=== PATIENT | female | born 1955 | race Caucasian/White ===

== ENCOUNTER 2020-03-08 10:51 | Outpatient (REF) | payer MEDICARE, SELFPAY | END 2020-03-08 10:52 | disposition home or self-care (01) | LOC: HO.LAB 10:51 | PROVIDERS: PCP Internal Medicine; Visit Provider Internal Medicine | DX: Z20.828 Contact with and (suspected) exposure to other viral communicable diseases (principal) | CPT/HCPCS: C9803; U0003 ==

== ENCOUNTER 2020-03-13 08:58 | Emergency (ER) | payer MEDICARE, SELFPAY ==
--- NOTE | 2020-03-13 09:15 | ED.GENADULT ---
HPI - General Adult General Chief complaint: General Medical <VANESSA Vazquez - Last Filed: 03/13/20 10:22> Stated complaint: flu symptoms <VANESSA Vazquez - Last Filed: 03/13/20 10:22> Time Seen by Provider: 03/13/20 09:13 <VANESSA Vazquez Last Filed: 03/13/20 10:22> Source: patient <VANESSA Vazquez - Last Filed: 03/13/20 10:22> Mode of arrival: ambulatory <VANESSA Vazquez - Last Filed: 03/13/20 10:22> Limitations: no limitations <VANESSA Vazquez Last Filed: 03/13/20 10:22> History of Present Illness HPI narrative: 64 y/o female presenting with body aches, headache, muscle aches and intermittent fevers for the last 5 days. She was tested for COVID-19 here 5 days ago when symptoms began. She has been incredibly anxious and calling the hospital 2-3 times per day for the results. She has been eating and drinking normally at home. She has been taking tylenol 500 mg as needed for subjective fevers, headaches, and body aches with good effect. She denies respiratory symptoms or chest pain. <VANESSA Vazquez - Last Filed: 03/13/20 10:22> MD complaint: body aches <VANESSA Vazquez - Last Filed: 03/13/20 10:22> Onset (ago): day(s) (5) <VANESSA Vazquez - Last Filed: 03/13/20 10:22> Pain Consistency: intermittent <VANESSA Vazquez - Last Filed: 03/13/20 10:22> Relieving factors: medication <VANESSA Vazquez Last Filed: 03/13/20 10:22> Exacerbating factors: movement <VANESSA Vazquez - Last Filed: 03/13/20 10:22> Associated symptoms: headaches, loss of appetite and malaise <VANESSA Vazquez Last Filed: 03/13/20 10:22> Treatments prior to arrival: none <VANESSA Vazquez - Last Filed: 03/13/20 10:22> Related Data Allergies/adverse reactions: Allergies Allergy/AdvReac Type Severity Reaction Status Date / Time Sulfa (Sulfonamide Allergy Unknown UNKNOWN Unverified 01/19/20 15:08 Antibiotics) [SULFA (SULFONAMIDE ANTIBIOTICS)] <VANESSA Vazquez Last Filed: 03/13/20 10:22> Review of Systems Review of Systems: Constitutional: + subjective Fever, + Chills ENT/Mouth: No sore throat, No Rhinorrhea, No Swallowing Difficulty Eyes: + Eye Pain, No Swelling, No Redness Cardiovascular: No Chest Pain, No SOB, No Orthopnea, No Edema Respiratory: No Cough, No Sputum, No Wheezing, No dyspnea Gastrointestinal: No Nausea, No Vomiting, No Diarrhea, No abdominal Pain Genitourinary: No Dysuria, No Urinary Frequency, No Hematuria Musculoskeletal: + joint pain, + Myalgias Skin: No Skin Lesions, No rash Neuro: No Weakness, No Numbness, No Dizziness, + Headache Psych: No Anxiety/Panic, No Depression Heme/Lymph: No Bruising, No Lymphadenopathy Endocrine: No Polyuria, No Polydipsia <VANESSA Vazquez Last Filed: 03/13/20 10:22> [facility], LAT[facility] Past Medical History Attestation statement: The following information was validated with the patient. <VANESSA Vazquez Last Filed: 03/13/20 10:22> Medical History: Medical History (Updated 03/14/20 @ 00:21 by Sue Howard) No known health problems <VANESSA Vazquez Last Filed: 03/13/20 10:22> Social History Social History: Social History Advance Directives: Yes Advance Directives Information Provided: No Advance Directives on File: No <VANESSA Vazquez Last Filed: 03/13/20 10:22> Physical Exam Vital Signs: Vital Signs: Last Vital Signs Temp 99.8 F 03/13/20 09:32 Pulse 88 03/13/20 09:32 Resp 18 03/13/20 09:32 BP 125/87 03/13/20 09:32 Pulse Ox 98 03/13/20 09:32 Body Mass Index 24.9 Appearance: Alert. Oriented X3. No acute distress. Eyes: Pupils equal, round and reactive to light. ENT: Pharynx normal. Neck: Normal inspection. Neck supple. CVS: Normal heart rate and rhythm. Pulses normal. Respiratory: No respiratory distress. Breath sounds normal. Abdomen: Soft and nontender. +BS x4 Skin: Skin warm and dry. Normal skin color. Normal skin turgor. No rashes. Extremities: No lower extremity edema. Neuro: Oriented X 3. No motor deficit. No sensory deficit. <VANESSA Vazquez - Last Filed: 03/13/20 10:22> Vital Signs: Last Vital Signs Temp 99.8 F 03/13/20 09:32 Pulse 88 03/13/20 09:32 Resp 18 03/13/20 09:32 BP 125/87 03/13/20 09:32 Pulse Ox 98 03/13/20 09:32 Body Mass Index 24.9 <Imtiaz Pittman MD - Last Filed: 03/16/20 01:47> Course Course Course Narrative: 64 y/o otherwise healthy female presenting with body aches and intermittent subjective fevers. She is non-toxic appearing with normal vital signs. No respiratory complaints. She has a COVID test pending and would like to know the results - confirmed it is still pending. Will test for influenza and hold off on repeating COVID test at this time. She was counseled on symptomatic management and warning signs to return to the hospital. Patient is stable for discharge. <VANESSA Vazquez - Last Filed: 03/13/20 10:22> I have reviewed the chart <Imtiaz Pittman MD - Last Filed: 03/16/20 01:47> Medical Decision Making MDM Narrative Medical decision making narrative: probable COVID-19 given symptoms. possible acute viral syndrome, influenza. less likely bacterial pneumonia. <VANESSA Vazquez - Last Filed: 03/13/20 10:22> Lab Data Labs: Lab Results 03/13/20 03/13/20 03/13/20 Range/Units 09:45 09:50 09:50 Coronavirus (PCR) Cancelled POSITIVE A Influenza Type A (PCR) Cancelled Cancelled NEGATIVE Influenza Type B (PCR) Cancelled Cancelled NEGATIVE Influenza A & B Note Cancelled Cancelled RSV RNA Qual (PCR) Cancelled Cancelled NEGATIVE <VANESSA Vazquez - Last Filed: 03/13/20 10:22> Lab Results 03/13/20 03/13/20 03/13/20 Range/Units 09:45 09:50 09:50 Coronavirus (PCR) Cancelled POSITIVE A Influenza Type A (PCR) Cancelled Cancelled NEGATIVE Influenza Type B (PCR) Cancelled Cancelled NEGATIVE Influenza A & B Note Cancelled Cancelled RSV RNA Qual (PCR) Cancelled Cancelled NEGATIVE <Imtiaz Pittman MD - Last Filed: 03/16/20 01:47> Discharge Plan Discharge Clinical Impression: Acute viral syndrome <VANESSA Vazquez - Last Filed: 03/13/20 10:22> Patient Disposition: Home, Self-Care <VANESSA Vazquez - Last Filed: 03/13/20 10:22> Instructions: Viral Syndrome (ED) <VANESSA Vazquez - Last Filed: 03/13/20 10:22> Additional Instructions: You were tested for Influenza A, B, and RSV today. We will call you if any of these are positive. Your COVID swab is still pending; expect a phone call soon with the results. Continue to stay hydrated and rest. Continue to take tylenol as needed for headache, muscle aches, and fevers. Do not exceed 4,000 mg in 1 day. If you develop shortness of breath, difficulty breathing or chest pain call 911 or come back to the ER for further evaluation. <VANESSA Vazquez - Last Filed: 03/13/20 10:22> Interventions: ED Discharge Assessment Last Done: 03/13/20 09:49 <VANESSA Vazquez - Last Filed: 03/13/20 10:22> Discharge Date/Time: 03/13/20 09:50 <VANESSA Vazquez - Last Filed: 03/13/20 10:22>
[2020-03-13 09:32] VITALS: BP 125/87; PULSE 88; RESP 18; TEMP 37.7; O2SAT 98; BMI 24.9
[2020-03-13 11:51] LABS: Influenza A PCR NEGATIVE (Negative); Influenza B PCR NEGATIVE (Negative); Resp Syncy Virus RNA Qual PCR NEGATIVE (Negative)
[2020-03-13 11:52] LABS: SARS COV2 PCR INHOUSE POSITIVE (Negative)
== END 2020-03-13 09:50 | disposition home or self-care (01) ==
PROVIDERS: Emergency Provider Emergency Medicine; PCP Internal Medicine
DX: M79.10 Myalgia, unspecified site (principal); R50.9 Fever, unspecified; Z20.828 Contact with and (suspected) exposure to other viral communicable diseases
CPT/HCPCS: 0241U; 87631; 99283

== ENCOUNTER 2020-04-02 13:21 | Outpatient (REF) | payer MEDICARE, SELFPAY | END 2020-04-02 13:22 | disposition home or self-care (01) | LOC: HO.LAB 13:21 | PROVIDERS: PCP Internal Medicine; Visit Provider Internal Medicine | DX: Z20.828 Contact with and (suspected) exposure to other viral communicable diseases (principal) | CPT/HCPCS: C9803; U0003 ==

== ENCOUNTER 2020-05-28 10:42 | Outpatient (REF) | payer MEDICARE, SELFPAY ==
[2020-05-28 12:39] LABS: Thyroid Stimulating Hormone 3.72 uIU/mL (0.32-4.0)
== END 2020-05-28 10:43 | disposition home or self-care (01) ==
LOC: HO.LAB 10:42
PROVIDERS: PCP Internal Medicine; Visit Provider Internal Medicine
DX: E03.9 Hypothyroidism, unspecified (principal)
CPT/HCPCS: 36415; 84443

== ENCOUNTER 2020-07-11 10:08 | Outpatient (REF) | payer MEDICARE, SELFPAY | END 2020-07-11 10:09 | disposition home or self-care (01) | LOC: HO.LAB 10:08 | PROVIDERS: Visit Provider Nurse Practitioner Family | DX: J02.8 Acute pharyngitis due to other specified organisms (principal); B97.89 Other viral agents as the cause of diseases classified elsewhere; Z20.822 Contact with and (suspected) exposure to COVID-19 | CPT/HCPCS: 36415; U0003; U0005 ==

== ENCOUNTER 2020-09-04 11:35 | Outpatient (REF) | payer MEDICARE, SELFPAY | END 2020-09-04 11:36 | disposition home or self-care (01) | LOC: HO.LAB 11:35 | PROVIDERS: Visit Provider Nurse Practitioner Family | DX: J02.8 Acute pharyngitis due to other specified organisms (principal); B97.89 Other viral agents as the cause of diseases classified elsewhere; Z20.822 Contact with and (suspected) exposure to COVID-19 | CPT/HCPCS: U0003; U0005 ==

== ENCOUNTER 2020-11-16 11:26 | Day surgery (SDC) | payer MEDICARE, SELFPAY ==
--- NOTE | 2020-11-15 10:15 | P.CONAN_ITS ---
Documented by User: Chloe Huerta 11/15/20 10:16 HPI - Anesthesia Eval Consult details Narrative: 65yo F for Colonoscopy PMFSH Active Problems Active Problems: All Active Problems (Updated 11/12/20 @ 11:06 by Georgia Lazar) Sore throat (viral) (Acute) Past Medical History Medical History Depression No significant medical problems Surgical History Surgical History Hx of colonoscopy No significant past surgical history Social History Social History Patient Tobacco Use Status: Former Tobacco user Use of substances other than those prescribed or required for medical reasons: No Have you been hit, kicked, punched, or otherwise hurt by someone within the past year? If so, by whom?: No Are you DNR?: No Advance Directives: No Advance Directives Information Provided: Yes Meds Allergies Allergy/AdvReac Type Severity Reaction Status Date / Time Sulfa (Sulfonamide Allergy Unknown UNKNOWN Verified 11/12/20 11:06 Antibiotics) [SULFA (SULFONAMIDE ANTIBIOTICS)] Home Medications Medication Instructions Recorded Confirmed Last Taken Type aripiprazole 10 mg tablet 10 mg PO BEDTIME 07/11/20 11/12/20 Unknown History aripiprazole 15 mg tablet 15 mg PO DAILY 07/11/20 11/12/20 Unknown History bupropion HCl 300 mg 24 hr tablet, 300 mg PO DAILY 07/11/20 11/12/20 Unknown History extended release lamotrigine 100 mg tablet 100 mg PO DAILY 07/11/20 11/12/20 Unknown History lamotrigine 25 mg tablet 25 mg PO BEDTIME 07/11/20 11/12/20 Unknown History olanzapine 10 mg tablet 10 mg PO BEDTIME 07/11/20 11/12/20 Unknown History quetiapine 25 mg tablet 25 mg PO BEDTIME 07/11/20 11/12/20 Unknown History Exam Exam Date and Time: November 15, 2020 1015 Assessment and Plan Assessment Anesthesia Assessment: Chart Reviewed Documented by User: Kyle Chavez 11/16/20 13:21 PMFSH Past Medical History Medical History Depression No significant medical problems Surgical History Surgical History Hx of colonoscopy No significant past surgical history Social History Social History Patient Tobacco Use Status: Former Tobacco user Use of substances other than those prescribed or required for medical reasons: No Have you been hit, kicked, punched, or otherwise hurt by someone within the past year? If so, by whom?: No Are you DNR?: No Advance Directives: No Advance Directives Information Provided: Yes Meds Allergies Allergy/AdvReac Type Severity Reaction Status Date / Time Sulfa (Sulfonamide Allergy Unknown UNKNOWN Verified 11/12/20 11:06 Antibiotics) [SULFA (SULFONAMIDE ANTIBIOTICS)] Home Medications Medication Instructions Recorded Confirmed Last Taken Type aripiprazole 10 mg tablet 10 mg PO BEDTIME 07/11/20 11/12/20 Unknown History aripiprazole 15 mg tablet 15 mg PO DAILY 07/11/20 11/12/20 Unknown History bupropion HCl 300 mg 24 hr tablet, 300 mg PO DAILY 07/11/20 11/12/20 Unknown History extended release lamotrigine 100 mg tablet 100 mg PO DAILY 07/11/20 11/12/20 Unknown History lamotrigine 25 mg tablet 25 mg PO BEDTIME 07/11/20 11/12/20 Unknown History olanzapine 10 mg tablet 10 mg PO BEDTIME 07/11/20 11/12/20 Unknown History quetiapine 25 mg tablet 25 mg PO BEDTIME 07/11/20 11/12/20 Unknown History Exam Airway Mallampati Class: II TM Dist: >3cm Neck ROM: Full Loose/Missing/Broken Teeth: Yes Heart: [id number] Lungs: cta b/l Assessment and Plan Assessment Anesthesia Assessment: Anesthesia Plan Discussed, PAT Visit and Chart Reviewed Final Anesthetic Review NPO: Yes ASA Class: III Final Preanesthetic Review: No Changes in Pt Med Stat, Meds/Allgs Chart Reviewe d, Consent Obtained/Reviewed and Anes Risks/Benef Reviewed Patient Risk: Intermediate Procedure Risk: Low Assessment/Block/Sedation in SS: Assess/Block/Sedation-SS Anesthetic Plan Anesthetic Plan: MAC: and Agree w/ Assess. and Plan Disposition: Standard PACU
[2020-11-16 11:39] VITALS: BP 137/83; PULSE 88; RESP 18; TEMP 36.4; O2SAT 98; BMI 22.1
[2020-11-16] MEDS: Lactated Ringers 1,000 ML 100 ML IVCONT (12:13)
--- NOTE | 2020-11-16 13:23 | P.CONAN_ITS ---
[facility] Active Problems Active Problems: All Active Problems (Updated 11/12/20 @ 11:06 by Georgia mccall) Sore throat (viral) (Acute) Past Medical History Medical History Depression No significant medical problems Surgical History Surgical History Hx of colonoscopy No significant past surgical history Social History Social History Patient Tobacco Use Status: Former Tobacco user Use of substances other than those prescribed or required for medical reasons: No Have you been hit, kicked, punched, or otherwise hurt by someone within the past year? If so, by whom?: No Are you DNR?: No Advance Directives: No Advance Directives Information Provided: Yes Meds Allergies Allergy/AdvReac Type Severity Reaction Status Date / Time Sulfa (Sulfonamide Allergy Unknown UNKNOWN Verified 11/12/20 11:06 Antibiotics) [SULFA (SULFONAMIDE ANTIBIOTICS)] Active Medications: Current Medications Generic Name Dose Route Start Last Admin Trade Name Freq PRN Reason Stop Dose Admin Acetaminophen 650 mg 11/16/20 13:21 Acetaminophen 325 Mg Tablet PO ONCE PRN Pain, Mild (Pain Scale 1-3) Lactated Ringer's 1,000 mls @ 100 mls/hr 11/16/20 11:15 11/16/20 12:13 Lr IVCONT 100 mls/hr .Q10H CARLOS Administration Ondansetron HCl 4 mg 11/16/20 13:21 Ondansetron Hcl 4 Mg/2 Ml Vial IVPUSH ONCE PRN Nausea and Vomiting Sodium Biphosphate/Sodium Phosphate 133 ml 11/16/20 11:03 Sodium Phosphate,[place]-Dibasic 133 Ml Enema UT ONCE PRN Poor Colonoscopy Prep Results Home Medications Medication Instructions Recorded Confirmed Last Taken Type aripiprazole 10 mg tablet 10 mg PO BEDTIME 07/11/20 11/12/20 Unknown History aripiprazole 15 mg tablet 15 mg PO DAILY 07/11/20 11/12/20 Unknown History bupropion HCl 300 mg 24 hr tablet, 300 mg PO DAILY 07/11/20 11/12/20 Unknown History extended release lamotrigine 100 mg tablet 100 mg PO DAILY 07/11/20 11/12/20 Unknown History lamotrigine 25 mg tablet 25 mg PO BEDTIME 07/11/20 11/12/20 Unknown History olanzapine 10 mg tablet 10 mg PO BEDTIME 07/11/20 11/12/20 Unknown History quetiapine 25 mg tablet 25 mg PO BEDTIME 07/11/20 11/12/20 Unknown History Exam Exam Date and Time: November 16, 2020 1323 Height,Weight and Vital Signs: Height 5 ft 3 in Weight 56.699 kg Last Vital Signs Temp 97.6 F 11/16/20 11:39 Pulse 88 11/16/20 11:39 Resp 18 11/16/20 11:39 BP 137/83 11/16/20 11:39 Pulse Ox 98 11/16/20 11:39 Airway Mallampati Class: II TM Dist: >3cm Neck ROM: Full Assessment and Plan Assessment Anesthesia Assessment: Anesthesia Plan Discussed and Chart Reviewed Final Anesthetic Review NPO: Yes ASA Class: II Final Preanesthetic Review: No Changes in Pt Med Stat and Consent Obtained/Reviewed Patient Risk: Low Procedure Risk: Low Assessment/Block/Sedation in SS: Assess/Block/Sedation-SS Anesthetic Plan Anesthetic Plan: MAC: Disposition: Standard PACU
[2020-11-16 14:16] VITALS: BP 100/61; PULSE 70; RESP 16; TEMP 36.2; O2SAT 99
--- NOTE | 2020-11-16 14:16 | P.BOP_ITS ---
Brief Operative Note Date of Service: 11/16/20 Pre-op diagnosis: Screening Post-op diagnosis: other (Colon polyps) Procedure: Colonoscopy to the cecum with bx/removal of polyps, and snare polypectomy at 20cm x 2 and in the distal rectum x 1. Surgeon: José Antonio Narayanan Anesthesia: MAC Was an [employer] used for this Procedure?: No Estimated blood loss (mL): 4.0 Pathology: other (A. Ascending colon polyps B. Polyp at 50cm C. Polyp at 30cm D. Polyps at 20cm E. Distal rectal polyp) Condition: stable Disposition: PACU
[2020-11-16 14:31] VITALS: BP 148/92; PULSE 74; RESP 17; TEMP 36.2; O2SAT 100
--- NOTE | 2020-11-16 17:08 | OP_ITS ---
SURGEON: José Antonio Narayanan MD INDICATIONS: The patient presents for evaluation of colorectal cancer screening. Full consent has been obtained from her for this, including risks of bleeding and perforation. PREOPERATIVE DIAGNOSIS: Colorectal cancer screening. POSTOPERATIVE DIAGNOSIS: PROCEDURE PERFORMED: Colonoscopy to cecum with biopsy and removal of polyps, and snare polypectomy. ESTIMATED BLOOD LOSS: COMPLICATIONS: ANESTHESIA: Monitored anesthesia care. ASSISTANTS: SPECIMENS: POSTOPERATIVE DIAGNOSES: Colorectal cancer screening, colon polyps, diverticulosis, and internal hemorrhoids. DESCRIPTION OF PROCEDURE: The patient was placed in the left lateral decubitus position. The digital rectal exam revealed no abnormalities. The Olympus video pediatric colonoscope was entered into the rectum and advanced easily to the cecum. Once in the cecum, I did identify normal-appearing cecal pouch with appendiceal orifice and a normal-appearing ileocecal valve. The ileocecal valve was well visualized and appeared normal. There was transillumination of light deep in the right lower quadrant. The scope was then slowly withdrawn assessing all mucosal surfaces carefully. Preparation was excellent. In the ascending colon, were 3 flat approximately 5 mm polyps, which were all biopsied and completely removed with cold biopsy forceps and placed in the same container. At 30 and 50 cm, were flat approximately 5 mm polyps, which were each biopsied and completely removed with cold biopsy forceps. At 20 cm, were two approximately 10 mm polyps, which were each snared and recovered by suction and placed in same container. The polypectomy sites appeared clean, without any sign of residual polyp nor bleeding. There was also noted some sigmoid diverticulosis. I did not visualize any sign of colitis nor angiodysplasia. In the rectum, the scope was retroflexed visualizing internal hemorrhoids, as well as an approximately 10 to 12 mm somewhat ulcerated polyp on a short stalk just above the dentate line. This was snared and recovered in the retroflexed position. It was recovered by withdrawing on the tip of the scope. The scope was readvanced back into the rectum. In the retroflexed view, I could see the polypectomy site, which appeared clean, without any sign of residual polyp nor bleeding. The scope was withdrawn from the patient. She tolerated the procedure well and was returned to recovery area in stable condition. IMPRESSION: 1. Colon polyps, status post snare polypectomy, and biopsy and removal. 2. Diverticulosis. 3. Internal hemorrhoids. PLAN: The results of the pathology will be checked. I would recommend a repeat colonoscopy in 5 years for further surveillance. She was advised not to use any aspirin and NSAIDs for 1 week. She will otherwise see me on a p.r.n. basis. This has been discussed with her daughter, Teresita. MD SAY Brand/RODRÍGUEZ / [id number]
== END 2020-11-16 14:55 | disposition home or self-care (01) ==
PROVIDERS: PCP Nurse Practitioner Family; Visit Provider Internal Medicine
PROC: 0DJD8ZZ Inspection of Lower Intestinal Tract, Via Natural or Artificial Opening Endoscopic (ICD-10-PCS; CPT 45378; principal; 2020-11-16 12:30)
DX: Z12.11 Encounter for screening for malignant neoplasm of colon (principal); D12.2 Benign neoplasm of ascending colon; D12.5 Benign neoplasm of sigmoid colon; K62.1 Rectal polyp; K57.30 Diverticulosis of large intestine without perforation or abscess without bleeding; K64.8 Other hemorrhoids; F32.9 Major depressive disorder, single episode, unspecified; Z79.899 Other long term (current) drug therapy; Z88.2 Allergy status to sulfonamides; Z87.891 Personal history of nicotine dependence
CPT/HCPCS: 45385; 45380; 88305

== ENCOUNTER 2020-12-21 10:06 | Outpatient (REF) | payer MEDICARE, SELFPAY ==
[2020-12-21 10:09] LABS: MANUAL DIFF FLAG NO
[2020-12-21 10:24] LABS: Basophils Percent Auto 0.3 % (0-2); Eosinophils Absolute Auto 0.1 X10*3/uL (0.0-0.4); Eosinophils Percent Auto 0.8 % (0-4); Hematocrit 41.6 % (37-47); Hemoglobin 13.3 g/dl (12.0-16.0); Imm Gran Abs Auto 0.01 X10*3/uL (0.00-0.03); Imm Gran Pct Auto 0.1 % (0.0-0.4); Lymphocytes Absolute Auto 1.7 X10*3/uL (1.2-4.9); Lymphocytes Percent Auto 22.7 % (20-40); Mean Corpuscular Hemoglobin 29.6 pg (27.0-33.0); Mean Corpuscular Volume 92.4 fL (80-98); Monocytes Absolute Auto 0.7 X10*3/uL (0.1-1.2); Neutrophils Absolute Auto 4.9 X10*3/uL (2.0-8.3); Neutrophils Percent Auto 67.1 % (45-73); Platelet Count 295 X10*3/uL (160-400); Red Cell Distribution Width 12.2 % (11.0-16.0); White Blood Count 7.3 X10*3/uL (4.8-10.8)
[2020-12-21 10:36] LABS: Alanine Aminotransferase 10 U/L (0-31); Albumin Level 4.4 g/dL (3.5-5.0); Alkaline Phosphatase 67 U/L (39-117); Anion Gap 11 (12-20); Aspartate Amino Transferase 14 U/L (5-31); Bilirubin Total 0.5 mg/dL (0.0-1.0); Blood Urea Nitrogen 18 mg/dL (9-16); Calcium 9.6 mg/dL (8.4-10.2); Carbon Dioxide 29 mmol/L (22-29); Chloride 103 mmol/L (96-108); Cholesterol 193 mg/dL; Estimated Glomerular Filt Rate 54; Glucose Fasting 92 mg/dL (60-99); HDL Cholesterol 63 mg/dL; LDL Cholesterol Calculated 108 mg/dl; Potassium 4.1 mmol/L (3.3-5.1); Sodium 139 mmol/L (135-145); Total Protein 7.1 g/dL (6.5-8.0); Triglycerides 113 mg/dL
[2020-12-21 10:45] LABS: Glucose Urine UA NEG (NEG); Leukocyte Esterase Urine 3+ (NEG); Nitrite Urine NEG (NEG); Specific Gravity - Urine >= 1.030 (1.005-1.025); Urine Blood NEG (NEG); Urine Ketones NEG (NEG); Urine Protein NEG (NEG-TRACE)
[2020-12-21 10:47] LABS: Appearance Urine HAZY; Color Urine YELLOW
[2020-12-21 10:56] LABS: Bacteria Urine TRACE /LPF; Mucus Urine TRACE /LPF; RBC Urine 0-2 /HPF (0); Renal Epithelial Cells Urine TRACE /LPF; Squamous Epithelial Cell Urine TRACE /LPF; WBC Urine 30-49 /HPF (0-4)
[2020-12-21 10:57] LABS: TSH reflex Free T4 2.52 uIU/mL (0.32-4.0)
== END 2020-12-21 10:07 | disposition home or self-care (01) ==
LOC: HO.LNP 10:06
PROVIDERS: Visit Provider Internal Medicine
DX: E03.9 Hypothyroidism, unspecified (principal); E78.00 Pure hypercholesterolemia, unspecified
CPT/HCPCS: 80053; 80061; 81001; 84443; 85025

== ENCOUNTER 2021-01-15 08:49 | Outpatient (REF) | payer MEDICARE, SELFPAY ==
--- NOTE | ~2021-01-15 | MM_ITS ---
EXAMINATION: BONE DENSITOMETRY CLINICAL INDICATION: Encounter for screening for osteoporosis. COMPARISON: This is the patient's baseline examination. TECHNIQUE: Using a [employer] DXA System (software version: 13.1) manufactured by [employer], dual-energy x-ray absorptiometry was performed of the lumbar spine and left hip. The images are of good technical quality. Summary results are attached. FINDINGS: AP SPINE L1-L4: BMD 1.093 g/cm2, Z-score 1.1, T-score -0.7, normal. LEFT FEMUR, NECK: BMD 0.667 g/cm2, Z-score -1.0, T-score -2.7, osteoporosis. LEFT FEMUR, TOTAL: BMD 0.760 g/cm2, Z-score -0.5, T-score -2.0, osteopenia. IDENTIFIED RISK FACTORS: Menopause. HISTORY OF FRACTURE: None listed. MEDICATIONS: Calcium or multivitamin. MM/XR DEXA axial skeleton IMPRESSION: 1. DIAGNOSIS: Osteoporosis based on the lowest T-score value of -2.7 in the femoral neck applying World Health Organization criteria. 2. 10-YEAR FRACTURE RISK PREDICTION, FRAX: Major osteoporotic fracture (clinical spine, forearm, hip or shoulder) 14.9%. Hip fracture 3.8%. 3. Treatment Recommendations: NOF guidelines recommend consideration for treatment in postmenopausal women and men age 50 and older presenting with the following: -A hip or vertebral (clinical or morphometric) fracture. -T-score less than or equal to -2.5 at the femoral neck or spine after appropriate evaluation to exclude secondary causes. -Low bone mass at the hip or spine and a 10-year fracture probability by FRAX of greater than or equal to 3% for hip fracture or greater than or equal to 20% for major osteoporotic fracture based on the [place] adapted WHO algorithm. 4. Other Recommendations: All treatment decisions require clinical judgment and consideration of individual patient factors, including patient preferences, comorbidities, previous drug use, risk factors not captured in the FRAX model (e.g. frailty, falls, vitamin D deficiency, increased bone turnover, interval significant decline in bone density) and possible under or overestimation of fracture risk by FRAX. Additional medical evaluation for secondary cause of low bone mineral density may be appropriate. FUTURE SCAN RECOMMENDATION: People with diagnosed cases of osteoporosis or at high risk for fracture should have regular bone mineral density tests. For patients eligible for Medicare, routine testing is allowed once every 2 years. The testing frequency can be increased to one year for patients who have rapidly progressing disease, those who are receiving or discontinuing medical therapy to restore bone mass, or have additional risk factors.
--- NOTE | ~2021-01-15 | MM_ITS ---
EXAMINATION: MM SCREENING DIGITAL BREAST TOMOSYNTHESIS, BILATERAL CLINICAL INFORMATION: Screening. Asymptomatic. The lifetime risk of breast cancer based on the Tyrer-Cuzick Model is 3.8%. COMPARISON: Mammography: 04/25/2019 and studies dating back to 10/11/2011. TECHNIQUE: Digital breast tomosynthesis is performed in both the craniocaudal and mediolateral oblique views along with computer-aided detection (CAD). Synthesized 2D images are generated from the tomosynthesis. FINDINGS: There are scattered areas of fibroglandular density (ACR BI-RADS breast composition Category b). There are some scattered circumscribed densities seen bilaterally with some cysts being seen on previous ultrasound study. No suspicious new dominant masses or grouping of calcifications identified. MM/MM tomosynthesis screening BI IMPRESSION: There are no significant changes from prior study. ASSESSMENT: BI-RADS 2: Benign. RECOMMENDATION: Routine annual mammography screening. This patient's information was entered into a reminder system with a target due date for their next mammogram.
== END 2021-01-15 08:50 | disposition home or self-care (01) ==
LOC: HO.MAMMO 08:49
PROVIDERS: Visit Provider Obstetrics & Gynecology
DX: Z13.820 Encounter for screening for osteoporosis (principal); Z78.0 Asymptomatic menopausal state; M85.89 Other specified disorders of bone density and structure, multiple sites; Z79.899 Other long term (current) drug therapy; Z12.31 Encounter for screening mammogram for malignant neoplasm of breast
CPT/HCPCS: 77063; 77067; 77080

== ENCOUNTER 2021-05-21 14:27 | Outpatient (REF) | payer MEDICARE, SELFPAY ==
[2021-05-21 14:51] LABS: Binax Internal Control QC Valid; Binax Now Covid-19 Ag Positive (Negative)
== END 2021-05-21 14:28 | disposition home or self-care (01) ==
LOC: HO.HMGCLDS 14:27
PROVIDERS: Visit Provider Internal Medicine
DX: Z13.89 Encounter for screening for other disorder (principal)

== ENCOUNTER 2021-10-10 14:19 | Outpatient (REF) | payer MEDICARE, SELFPAY ==
--- NOTE | ~2021-10-10 | XR_ITS ---
EXAMINATION: XR LUMBOSACRAL SPINE CLINICAL INFORMATION: Family history of abdominal aortic aneurysm. COMPARISON: None TECHNIQUE: Three views Of the Lumbosacral Spine. FINDINGS: FINDINGS: Mild levoscoliosis centered at L2-L3. Vertebral loss at the L3 level at the right aspect. Approximately 40% loss of the vertebral body height. Disc space narrowing of L2-L3 and L3-L4. Small endplate osteophytes throughout with facet arthropathy. The sacroiliac joints are symmetric. The sacrum is intact. Of note, no significant vascular calcification to evaluate the caliber of the abdominal aorta. XR/XR lumbar spine 2-3V IMPRESSION: Moderate degenerative change of the lumbar spine with levoscoliosis and height loss at the L3 level.
== END 2021-10-10 14:20 | disposition home or self-care (01) ==
LOC: HO.XRAY 14:19
PROVIDERS: Visit Provider Internal Medicine
DX: M41.86 Other forms of scoliosis, lumbar region (principal); Z82.49 Family history of ischemic heart disease and other diseases of the circulatory system
CPT/HCPCS: 72100

== ENCOUNTER 2022-01-17 07:51 | Outpatient (REF) | payer MEDICARE, SELFPAY ==
--- NOTE | ~2022-01-17 | US_ITS ---
EXAMINATION: US RETROPERITONEAL LIMITED (AORTA) CLINICAL INFORMATION: Family history of AAA. COMPARISON: None TECHNIQUE: Mchugh-scale, color Doppler and spectral Doppler evaluation of the abdominal aorta. FINDINGS: There is atherosclerotic disease. The measurements of the aorta in maximum AP and transverse dimensions respectively are as follows: Proximal: 2.08 x 2.18 cm. Mid: 1.78 x 1.77 cm. Distal: 1.60 x 1.63 cm. PSV: 77.4 cm/s. The measurements of the common iliac arteries in maximum AP and TRV dimensions are as follows: Right Common Iliac Artery: 1.02 x 0.99 cm. Left Common Iliac Artery: 0.95 x 1.15 cm. US/US abdominal aortic aneurysm IMPRESSION: No abdominal aortic or iliac artery aneurysm.
== END 2022-01-17 07:52 | disposition home or self-care (01) ==
LOC: HO.US 07:51
PROVIDERS: PCP Internal Medicine; Visit Provider Internal Medicine
DX: Z13.6 Encounter for screening for cardiovascular disorders (principal); Z82.49 Family history of ischemic heart disease and other diseases of the circulatory system
CPT/HCPCS: 76706

== ENCOUNTER 2022-01-22 07:35 | Outpatient (REF) | payer MEDICARE, SELFPAY ==
--- NOTE | ~2022-01-22 | MM_ITS ---
EXAMINATION: MM SCREENING DIGITAL BREAST TOMOSYNTHESIS, BILATERAL CLINICAL INFORMATION: Screening. Asymptomatic. The lifetime risk of breast cancer based on the Tyrer-Cuzick Model is 4%. COMPARISON: Mammography: 01/15/2021, 04/25/2019, 04/17/2018, 04/11/2017 TECHNIQUE: Digital breast tomosynthesis is performed in both the craniocaudal and mediolateral oblique views along with computer-aided detection (CAD). Synthesized 2D images are generated from the tomosynthesis. FINDINGS: There are scattered areas of fibroglandular density (ACR BI-RADS breast composition Category b). There are no significant masses, abnormal calcifications, or other abnormalities. Parenchymal pattern is similar to prior studies. There is no developing density or architectural abnormality. The axilla and skin contours are unremarkable. No significant changes. MM/MM tomosynthesis screening BI IMPRESSION: No mammographic evidence of malignancy. ASSESSMENT: BI-RADS 1: Negative RECOMMENDATION: Routine annual mammography screening. This patient's information was entered into a reminder system with a target due date for their next mammogram.
== END 2022-01-22 07:36 | disposition home or self-care (01) ==
LOC: HO.MAMMO 07:35
PROVIDERS: PCP Internal Medicine; Visit Provider Internal Medicine
DX: Z12.31 Encounter for screening mammogram for malignant neoplasm of breast (principal)
CPT/HCPCS: 77063; 77067

== ENCOUNTER 2022-01-24 10:56 | Outpatient (REF) | payer MEDICARE, SELFPAY ==
[2022-01-24 11:00] LABS: MANUAL DIFF FLAG NO
[2022-01-24 11:39] LABS: Basophils Percent Auto 0.6 % (0-2); Eosinophils Absolute Auto 0.1 X10*3/uL (0.0-0.4); Eosinophils Percent Auto 1.2 % (0-4); Hematocrit 40.8 % (37.0-47.0); Imm Gran Abs Auto 0.04 X10*3/uL (0.00-0.03); Imm Gran Pct Auto 0.6 % (0.0-0.4); Lymphocytes Absolute Auto 1.9 X10*3/uL (1.2-4.9); Lymphocytes Percent Auto 29.9 % (20-40); Mean Corpuscular HGB Conc 31.9 g/dl (31.0-35.0); Mean Corpuscular Hemoglobin 29.3 pg (27.0-33.0); Mean Corpuscular Volume 92.1 fL (80.0-98.0); Mean Platelet Volume 9.8 fL (9.4-12.3); Monocytes Absolute Auto 0.6 X10*3/uL (0.1-1.2); Monocytes Percent Auto 9.2 % (2-11); Neutrophils Absolute Auto 3.8 x10*3/uL (2.0-8.3); Neutrophils Percent Auto 58.5 % (45-73); Platelet Count 383 X10*3/uL (160-400); Red Blood Count 4.43 X10*6/uL (4.20-5.50); Red Cell Distribution Width 12.9 % (11.0-16.0); White Blood Count 6.4 X10*3/uL (4.8-10.8)
[2022-01-24 11:50] LABS: Alanine Aminotransferase 18 U/L (0-31); Albumin Level 4.1 g/dL (3.5-5.0); Alkaline Phosphatase 77 U/L (39-117); Anion Gap 16 (12-20); Aspartate Amino Transferase 22 U/L (5-31); Bilirubin Total 0.4 mg/dL (0.0-1.0); Blood Urea Nitrogen 21 mg/dL (9-16); Carbon Dioxide 25 mmol/L (22-29); Chloride 103 mmol/L (96-108); Cholesterol 220 mg/dL; Estimated Glomerular Filt Rate > 60; Glucose Fasting 88 mg/dL (60-99); HDL Cholesterol 73 mg/dL; LDL Cholesterol Calculated 135 mg/dl; Potassium 4.7 mmol/L (3.3-5.1); Sodium 139 mmol/L (135-145); Triglycerides 61 mg/dL
[2022-01-24 12:53] LABS: Free T4 (Free Thyroxine) 0.86 ng/dL (0.71-1.85)
== END 2022-01-24 10:57 | disposition home or self-care (01) ==
LOC: HO.LNP 10:56
PROVIDERS: Visit Provider Internal Medicine
DX: F31.61 Bipolar disorder, current episode mixed, mild (principal); I70.0 Atherosclerosis of aorta; E03.9 Hypothyroidism, unspecified; E78.00 Pure hypercholesterolemia, unspecified
CPT/HCPCS: 80053; 80061; 84439; 84443; 85025; 87086

== ENCOUNTER 2022-04-04 11:19 | Outpatient (REF) | payer MEDICARE, SELFPAY ==
[2022-04-04 12:21] LABS: MANUAL DIFF FLAG NO
[2022-04-04 12:44] LABS: Basophils Percent Auto 0.5 % (0-2); Eosinophils Absolute Auto 0.1 X10*3/uL (0.0-0.4); Hematocrit 42.7 % (37.0-47.0); Hemoglobin 13.4 g/dl (12.0-16.0); Imm Gran Abs Auto 0.02 X10*3/uL (0.00-0.03); Imm Gran Pct Auto 0.3 % (0.0-0.4); Lymphocytes Absolute Auto 1.8 X10*3/uL (1.2-4.9); Lymphocytes Percent Auto 23.3 % (20-40); Mean Corpuscular HGB Conc 31.4 g/dl (31.0-35.0); Mean Corpuscular Hemoglobin 29.3 pg (27.0-33.0); Mean Corpuscular Volume 93.2 fL (80.0-98.0); Mean Platelet Volume 9.7 fL (9.4-12.3); Monocytes Absolute Auto 0.6 X10*3/uL (0.1-1.2); Monocytes Percent Auto 7.1 % (2-11); Neutrophils Absolute Auto 5.4 x10*3/uL (2.0-8.3); Neutrophils Percent Auto 67.8 % (45-73); Platelet Count 374 X10*3/uL (160-400); Red Blood Count 4.58 X10*6/uL (4.20-5.50); Red Cell Distribution Width 13.4 % (11.0-16.0); White Blood Count 7.9 X10*3/uL (4.8-10.8)
[2022-04-04 13:27] LABS: Appearance Urine Clear; Color Urine Yellow; Glucose Urine UA Negative (Negative); Leukocyte Esterase Urine Large (3+) (Negative); Nitrite Urine Negative (Negative); Specific Gravity - Urine 1.025 (1.005-1.025); UMIC TRIGGER UA YES; Urine Blood Negative (Negative); Urine Ketones Negative (Negative); Urine Protein Negative (Neg-Trace)
[2022-04-04 13:30] LABS: Bacteria Urine Trace (None Seen); Hyaline Casts Urine 0-2 /LPF (0-2); RBC Urine 0-2 /HPF (0-2)
[2022-04-04 14:19] LABS: Alanine Aminotransferase 24 U/L (0-31); Albumin Level 4.2 g/dL (3.5-5.0); Alkaline Phosphatase 85 U/L (39-117); Anion Gap 11 (12-20); Aspartate Amino Transferase 27 U/L (5-31); Bilirubin Total 0.5 mg/dL (0.0-1.0); Blood Urea Nitrogen 21 mg/dL (9-16); Calcium 9.1 mg/dL (8.4-10.2); Carbon Dioxide 29 mmol/L (22-29); Chloride 102 mmol/L (96-108); Cholesterol 184 mg/dL; Estimated Glomerular Filt Rate > 60; Glucose Fasting 97 mg/dL (60-99); HDL Cholesterol 79 mg/dL; LDL Cholesterol Calculated 94 mg/dl; Potassium 4.5 mmol/L (3.3-5.1); Sodium 137 mmol/L (135-145); TSH reflex Free T4 3.94 uIU/mL (0.32-4.0); Triglycerides 59 mg/dL
== END 2022-04-04 11:20 | disposition home or self-care (01) ==
LOC: HO.LNP 11:19
PROVIDERS: Visit Provider Internal Medicine
DX: E03.9 Hypothyroidism, unspecified (principal); E78.00 Pure hypercholesterolemia, unspecified
CPT/HCPCS: 80053; 80061; 81001; 84443; 85025

== ENCOUNTER 2022-09-23 11:26 | Inpatient (IN) | payer MEDICARE, SELFPAY ==
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
[2022-09-23 11:49] VITALS: BP 144/77; PULSE 78; RESP 18; TEMP 36.7; O2SAT 97; BMI 23.6
--- NOTE | 2022-09-23 11:49 | ED_ITS ---
HPI - Psych General Chief Complaint: Psychiatric Symptoms Stated Complaint: Crisis/Lives in unsafe environment Time Seen by Provider: 09/23/22 12:08 Source: patient Mode of arrival: ambulatory Limitations: no limitations History of Present Illness HPI Narrative: Patient is a 66 year old assigned female at with a history of bipolar disorder presenting to the emergency department today with depression. Patient states that she has been off of her medications for over a month and is having a lot of family problems. Patient denies any dizziness, lightheadedness, abdominal pain, nausea, vomiting, fever, chills, blurry vision, double vision, loss of vision, chest pain, difficulty breathing, shortness of breath, back pain, night sweats, pain with urination, increased urinary frequency, increased urinary urgency, blood in her urine or stool, syncope or a near syncopal episode, recent trauma or falls, bowel incontinence, bladder incontinence, bowel retention, bladder retention, or any other complaints at this time. MD complaint: feels depressed Onset (ago): week(s) Duration: constant History of same: Yes Relieving factors: none Exacerbating factors: none Associated psychiatric symptoms: depression Associated symptoms: denies other symptoms Treatments prior to arrival: none Related Data Home Medications Medication Instructions Recorded Confirmed bupropion HCl 300 mg 24 hr tablet, 300 mg PO DAILY 07/11/20 09/23/22 extended release Vraylar 3 mg PO DAILY 09/23/22 09/23/22 Allergies Allergy/AdvReac Type Severity Reaction Status Date / Time No Known Allergies Allergy Verified 09/23/22 15:00 Review of Systems Constitutional: Constitutional: Reports no additional constitutional complaints, Denies chills, Denies fever(s) and Denies night sweats Eyes: Eyes: Reports no additional eye complaints, Denies blurry vision, Denies change in vision, Denies diplopia, Denies eye discharge, Denies loss of vision and Denies eye pain ENT: Denies dizziness Cardiovascular: Cardiovascular: Reports no additional cardiovascular complaints, Denies chest pain, Denies lightheadedness, Denies Loss of Consciousness and Denies dyspnea Respiratory: Respiratory: Reports no additional respiratory complaints and Denies dyspnea Gastrointestinal: Gastrointestinal: Reports no additional gastrointestinal complaints, Denies abdominal pain, Denies melena, Denies hematochezia, Denies change in bowel habits and Denies change in stool character Genitourinary: Genitourinary: Denies hematuria, Denies urinary frequency, Denies dysuria, Denies urinary incontinence, Denies urinary hesitancy and Denies urinary urgency Musculoskeletal: Musculoskeletal: Reports no additional musculoskeletal complaints, Denies numbness and Denies tingling Neurologic: Denies dizziness, Denies loss of vision, Denies numbness and Denies tingling Psychiatric: Psychiatric: Reports depression, Denies homicidal ideation and Denies suicidal ideation Endocrine: Endocrine: Reports no additional endocrine complaints Hematologic/Lymphatic: Hematologic/Lymphatic: Reports no additional hematologic/lymphatic complaints Allergic/Immunologic: Allergic/Immunologic: Reports no additional allergic/immunologic complaints PMFSH Past Medical History Attestation statement: The following information was validated with the patient. Source: old records reviewed and nursing notes reviewed Medical History Depression No significant medical problems Surgical History Hx of colonoscopy No significant past surgical history Social History Social History Patient Tobacco Use Status: Former Tobacco user Smoked in Last 30 Days: No Use of substances other than those prescribed or required for medical reasons: No Any prior treatment program specific to substance use: No Advance Directives: No Advance Directives Information Provided: Yes Physical Exam Vital Signs: Vital Signs: Last Vital Signs Temp 98.1 F 09/23/22 15:59 Pulse 104 H 09/23/22 15:59 Resp 16 09/23/22 15:59 BP 142/92 H 09/23/22 15:59 Pulse Ox 99 09/23/22 15:59 O2 Del Method Room Air 09/23/22 15:59 BMI result Body Mass Index 23.6 Const: General: cooperative, no acute distress, alert and awake Nutritional Appearance: well nourished Orientation/consciousness: patient oriented x3 Limitations: no limitations HEENT: Head: Yes normal to inspection and Yes atraumatic Ears: hearing grossly normal bilaterally and external ears normal General nose exam: Normal external nose present, no nasal discharge noted and no epistaxis Face and sinus: Yes normal facial exam, No abrasion and No laceration Mouth: Normal oral and palatal mucosa present, no drooling and no muffled voice Eyes: General: appearance normal, both eyes and all related structures Periorbital: periorbital findings normal Eyelids: Yes eyelids normal Conjunctivae: conjunctivae normal Pupils: Equal, round and reactive pupils present EOM: EOMs intact bilaterally Neck: Neck: Yes normal visual inspection, Yes full ROM and Yes no lymphadenopathy Chest: Chest palpation & inspection: normal inspection of the chest Resp: Effort & Inspection: normal respiratory effort and able to speak in complete sentences GI: Inspection: Yes normal to inspection Neuro: General: patient oriented x3 and moves all extremities Cranial nerves: Yes Equal, round and reactive pupils present Cognition (Neuro): normal cognition Motor exam (neuro): 5/5 motor strength present throughout Sensory Exam: Normal double simultaneous stimulation for sensation C oordination: [id number] test normal Extrem: General: Yes normal to inspection, Yes full ROM and Yes capillary refill normal Psych: Appearance: grossly normal Mental Status: mental status grossly normal Affect: normal affect Attitude: cooperative Thought process: Normal thought process present Thought content: Normal thought content present Insight: Good insight present (Psych) Course Course Course Narrative: RME: 66yo F w/PMHx depression c/o increasing depression w/no desire to do anything x1 month. has been in bed x1 month, not bathing, barely eating. Also reports home difficulties with and son. Reports medication noncompliance. denies SI/HI or etoh/illicit drug use. cousin made her come in today Labs, drug screen, UA, CARE team consult ordered Full HPI, ROS and PE to be performed by primary ED provider. Medical Decision Making Medical Decision Making [facility] Narrative: Patient is a 66 year old assigned female at with a history of bipolar disorder presenting to the emergency department today with depression. Patient's physical exam was unremarkable. Patient's blood work was unremarkable. Patient's urine showed no acute process. I explained my physical exam findings as well as all test results to the patient. I answered all questions asked by the patient. Patient is currently awaiting CARE team evaluation. Differential Diagnosis Differential Diagnoses: The differential diagnosis associated with the presentation includes depression Lab Data [facility] Lab Attestation statement: I reviewed the patient's lab results. 09/23/22 14:03 09/23/22 14:03 Labs: Lab Results 09/23/22 09/23/22 09/23/22 Range/Units 12:29 13:06 14:03 WBC 7.7 (4.8-10.8) X10*3/uL RBC 4.86 (4.20-5.50) X10*6/uL Hgb 14.4 (12.0-16.0) g/dl Hct 44.3 (37.0-47.0) % MCV 91.2 (80.0-98.0) fL MCH 29.6 (27.0-33.0) pg MCHC 32.5 (31.0-35.0) g/dl RDW 12.7 (11.0-16.0) % Plt Count 375 (160-400) X10*3/uL MPV 9.5 (9.4-12.3) fL Immature Gran % (Auto) 0.3 (0.0-0.4) % Neut % (Auto) 73.0 (45-73) % Lymph % (Auto) 19.9 L (20-40) % [place] % (Auto) 5.7 (2-11) % Eos % (Auto) 0.7 (0-4) % Baso % (Auto) 0.4 (0-2) % Lymph # (Auto) 1.5 (1.2-4.9) X10*3/uL [place] # (Auto) 0.4 (0.1-1.2) X10*3/uL Eos # (Auto) 0.1 (0.0-0.4) X10*3/uL Baso # (Auto) 0.0 (0.0-0.2) X10*3/uL Abs Immat Gran (auto) 0.02 (0.00-0.03) X10*3/uL Absolute Neuts (auto) 5.6 (2.0-8.3) x10*3/uL Absolute Nucleated RBC 0.000 (0.0-0.012) X10*3/uL Nucleated RBC % (auto) 0.0 (0.0-0.2) /100WBC Sodium (135-145) mmol/L Potassium (3.3-5.1) mmol/L Chloride (96-108) mmol/L Carbon Dioxide (22-29) mmol/L Anion Gap (12-20) BUN (9-16) mg/dL Creatinine (0.5-1.4) mg/dL Estim Creat Clear Calc Estimated GFR Random Glucose (60-115) mg/dL Calcium (8.4-10.2) mg/dL Magnesium (1.6-2.6) mg/dL Total Bilirubin (0.0-1.0) mg/dL Direct Bilirubin (0.0-0.5) mg/dL AST (5-31) U/L ALT (0-31) U/L Alkaline Phosphatase (39-117) U/L Total Protein (6.5-8.0) g/dL Albumin (3.5-5.0) g/dL Urine Opiates Screen Not Detected (Not Detect) Urine Fentanyl Screen Not Detected (Not Detect) Ur Barbiturates Screen Not Detected (Not Detect) Ur Phencyclidine Scrn Not Detected (Not Detect) Ur Amphetamines Screen Not Detected (Not Detect) U Benzodiazepines Scrn Not Detected (Not Detect) Urine Cocaine Screen Not Detected (Not Detect) U Marijuana (THC) Screen Not Detected (Not Detect) COVID-19 ([facility]) Negative (Negative) COVID-19 Clin Com See Note 09/23/22 Range/Units 14:03 WBC (4.8-10.8) X10*3/uL RBC (4.20-5.50) X10*6/uL Hgb (12.0-16.0) g/dl Hct (37.0-47.0) % MCV (80.0-98.0) fL MCH (27.0-33.0) pg MCHC (31.0-35.0) g/dl RDW (11.0-16.0) % Plt Count (160-400) X10*3/uL MPV (9.4-12.3) fL Immature Gran % (Auto) (0.0-0.4) % Neut % (Auto) (45-73) % Lymph % (Auto) (20-40) % [place] % (Auto) (2-11) % Eos % (Auto) (0-4) % Baso % (Auto) (0-2) % Lymph # (Auto) (1.2-4.9) X10*3/uL [place] # (Auto) (0.1-1.2) X10*3/uL Eos # (Auto) (0.0-0.4) X10*3/uL Baso # (Auto) (0.0-0.2) X10*3/uL Abs Immat Gran (auto) (0.00-0.03) X10*3/uL Absolute Neuts (auto) (2.0-8.3) x10*3/uL Absolute Nucleated RBC (0.0-0.012) X10*3/uL Nucleated RBC % (auto) (0.0-0.2) /100WBC Sodium 139 (135-145) mmol/L Potassium 4.1 (3.3-5.1) mmol/L Chloride 103 (96-108) mmol/L Carbon Dioxide 27 (22-29) mmol/L Anion Gap 13 (12-20) BUN 16 (9-16) mg/dL Creatinine 1.04 (0.5-1.4) mg/dL Estim Creat Clear Calc 42.8 Estimated GFR 53 Random Glucose 100 (60-115) mg/dL Calcium 9.1 (8.4-10.2) mg/dL Magnesium 2.0 (1.6-2.6) mg/dL Total Bilirubin 0.7 (0.0-1.0) mg/dL Direct Bilirubin 0.2 (0.0-0.5) mg/dL AST 19 (5-31) U/L ALT 15 (0-31) U/L Alkaline Phosphatase 97 (39-117) U/L Total Protein 7.2 (6.5-8.0) g/dL Albumin 4.2 (3.5-5.0) g/dL Urine Opiates Screen (Not Detect) Urine Fentanyl Screen (Not Detect) Ur Barbiturates Screen (Not Detect) Ur Phencyclidine Scrn (Not Detect) Ur Amphetamines Screen (Not Detect) U Benzodiazepines Scrn (Not Detect) Urine Cocaine Screen (Not Detect) U Marijuana (THC) Screen (Not Detect) COVID-19 ([facility]) (Negative) COVID-19 Clin Com Discharge Plan Discharge Clinical Impression: Depression Patient Disposition: Still a Patient Prescriptions: No Action Vraylar 3 mg PO DAILY Rx Instructions: Pt reports stopping taking medication 1 month ago but took 1 dose yesterday bupropion HCl 300 mg tablet extended release 24 hr 300 mg PO DAILY Rx Instructions: Pt report she stopped taking her medication for 1 month and took 1 dose yesterday Interventions: [place]-Suicide Risk Severity Scale Last Done: 09/23/22 12:51
[2022-09-23 12:53] LABS: COVID-19 Test Negative (Negative); IDNOW Serial# BCCEAD1C
[2022-09-23 13:24] LABS: Amphetamine Screen Urine Not Detected (Not Detect); Barbiturates, Urine Not Detected (Not Detect); Benzodiazepines Screen Urine Not Detected (Not Detect); Cannabinoid Screen Urine Not Detected (Not Detect); Cocaine Screen Urine Not Detected (Not Detect); Fentanyl, urine Not Detected (Not Detect); Opiate Screen Urine Not Detected (Not Detect); Phencyclidine Screen Urine Not Detected (Not Detect)
[2022-09-23 14:14] LABS: MANUAL DIFF FLAG NO
[2022-09-23 14:26] LABS: Basophils Percent Auto 0.4 % (0-2); Eosinophils Absolute Auto 0.1 X10*3/uL (0.0-0.4); Eosinophils Percent Auto 0.7 % (0-4); Hematocrit 44.3 % (37.0-47.0); Hemoglobin 14.4 g/dl (12.0-16.0); Imm Gran Abs Auto 0.02 X10*3/uL (0.00-0.03); Imm Gran Pct Auto 0.3 % (0.0-0.4); Lymphocytes Absolute Auto 1.5 X10*3/uL (1.2-4.9); Lymphocytes Percent Auto 19.9 % (20-40); Mean Corpuscular HGB Conc 32.5 g/dl (31.0-35.0); Mean Corpuscular Hemoglobin 29.6 pg (27.0-33.0); Mean Corpuscular Volume 91.2 fL (80.0-98.0); Mean Platelet Volume 9.5 fL (9.4-12.3); Monocytes Absolute Auto 0.4 X10*3/uL (0.1-1.2); Monocytes Percent Auto 5.7 % (2-11); Neutrophils Absolute Auto 5.6 x10*3/uL (2.0-8.3); Platelet Count 375 X10*3/uL (160-400); Red Blood Count 4.86 X10*6/uL (4.20-5.50); Red Cell Distribution Width 12.7 % (11.0-16.0); White Blood Count 7.7 X10*3/uL (4.8-10.8)
[2022-09-23 14:34] LABS: Alanine Aminotransferase 15 U/L (0-31); Albumin Level 4.2 g/dL (3.5-5.0); Alkaline Phosphatase 97 U/L (39-117); Anion Gap 13 (12-20); Aspartate Amino Transferase 19 U/L (5-31); Bilirubin Direct 0.2 mg/dL (0.0-0.5); Bilirubin Total 0.7 mg/dL (0.0-1.0); Blood Urea Nitrogen 16 mg/dL (9-16); Calcium 9.1 mg/dL (8.4-10.2); Carbon Dioxide 27 mmol/L (22-29); Chloride 103 mmol/L (96-108); Creatinine Clr Calc Pharmacy 42.8; Estimated Glomerular Filt Rate 53; Glucose Random 100 mg/dL (60-115); Potassium 4.1 mmol/L (3.3-5.1); Sodium 139 mmol/L (135-145); Total Protein 7.2 g/dL (6.5-8.0)
--- NOTE | 2022-09-23 15:50 | PC.NURSE ---
Pt c/o 3 months of depression, not being motivated to shower, eating 1 meal a day, staying in bed most of each day, not talking to anyone. was truing to motive Pt. Pt refused to take her medication for 1 month. Pt reports gong to cousins house Thursday. Today cousin brought Pt to ED for Eval. Pt took Vraylar 3mg and Bupropion 300mg today after discontinuing it for 1 month. Pt enc. to call MD in the future before changing medication regime.
[2022-09-23 15:59] VITALS: BP 142/92; PULSE 104; RESP 16; TEMP 36.7; O2SAT 99
--- NOTE | 2022-09-23 16:03 | PC.NURSE ---
Pt reports Divorce after [address] pending 09/30/22.
[2022-09-23 18:57] LABS: Appearance Urine Cloudy; Color Urine Yellow; Glucose Urine UA Negative (Negative); Leukocyte Esterase Urine Large (3+) (Negative); Nitrite Urine Negative (Negative); UMIC TRIGGER UACC YES; Urine Blood Negative (Negative); Urine Ketones Trace mg/dL (Negative); Urine Protein Negative (Neg-Trace)
[2022-09-23 18:59] LABS: Bacteria Urine 2+ (None Seen); RBC Urine 0-2 /HPF (0-2); UACC Culture Trigger YES; WBC Urine >50 /HPF (0-5)
[2022-09-23 19:35] LABS: Ethanol < 10 mg/dL
[2022-09-23 21:45] VITALS: BP 142/82; PULSE 89; RESP 18; TEMP 36.6; O2SAT 99
[2022-09-23 23:14] VITALS: BMI 24.2
[2022-09-24] MEDS: traZODone HCL 50 MG TABLET PO (00:55)
[2022-09-24] MEDS: Acetaminophen 325 MG TABLET 650 MG PO ×2 (03:34→15:26)
--- NOTE | 2022-09-24 06:21 | PC.NURSE ---
Patient is 66 y/o female admitted from ED to S1 on a cv? via w/c for depression and unspecified bipolar. Patient was brought to ED by niece r/t to concerns about poor self care and nutrition. Patient reported having experienced at home, in the past couple of months increased depression, isolation and malnutrition. Patient has a known diagnosis of bipolar and disclosed having not been taking her medications for a month. She reported experiencing family stressors and racing thoughts leaving her feeling like on a roller coaster . Upon arrival, the patient was alert and oriented x 3, mood pleasant and engaging. Thought process linear, speech fast and pressured. Able to answer all assessment questions appropriately. Denied any HI/SI, any AH/VH. Reported experiencing some depression, not showering for weeks and decreased appetite, just staying in bed. Medical history is not significant. Patient ambulates with steady gait and is independent with ADLs.
[2022-09-24 08:10] VITALS: BP 128/64; PULSE 89; RESP 18; TEMP 36.3; O2SAT 99
[2022-09-24 08:44] LABS: Estimated Average Glucose 103 mg/dL; Hemoglobin A1c % 5.2 %
[2022-09-24 08:55] LABS: Alanine Aminotransferase 16 U/L (0-31); Albumin Level 4.1 g/dL (3.5-5.0); Alkaline Phosphatase 86 U/L (39-117); Anion Gap 12 (12-20); Aspartate Amino Transferase 20 U/L (5-31); Bilirubin Total 0.6 mg/dL (0.0-1.0); Blood Urea Nitrogen 13 mg/dL (9-16); Carbon Dioxide 26 mmol/L (22-29); Chloride 103 mmol/L (96-108); Cholesterol 173 mg/dL; Estimated Glomerular Filt Rate 51; Glucose Fasting 93 mg/dL (60-99); HDL Cholesterol 55 mg/dL; LDL Cholesterol Calculated 94 mg/dl; Potassium 4.1 mmol/L (3.3-5.1); Sodium 137 mmol/L (135-145); Total Protein 6.8 g/dL (6.5-8.0); Triglycerides 124 mg/dL
[2022-09-24 09:19] LABS: Thyroid Stimulating Hormone 4.56 uIU/mL (0.32-4.0); Vitamin B12 319 pg/mL (200-900)
[2022-09-24] MEDS: Cariprazine HCl 3 MG CAPSULE PO (10:36)
[2022-09-24] MEDS: buPROPion HCl XL 300 MG TAB.ER.24H PO (10:36)
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
[2022-09-24 19:52] VITALS: BP 136/71; PULSE 80; RESP 16; TEMP 36.1; O2SAT 100
[2022-09-25 06:00] VITALS: BP 118/56; PULSE 84; RESP 18; O2SAT 99
[2022-09-25 07:00] VITALS: BMI 24.4
[2022-09-25] MEDS: buPROPion HCl XL 300 MG TAB.ER.24H PO (08:24)
[2022-09-25] MEDS: Cariprazine HCl 3 MG CAPSULE PO (08:24)
--- NOTE | 2022-09-25 16:54 | P.PNPSI_ITS ---
Subjective Subjective Date of Service: 09/25/22 Reason For Visit: delusions Subjective Notes: Conditional Voluntary Interim History: The nursing staff reported the patient had been common cooperative, fully compliant with treatment. The occupational therapist reported that she scored 17/30 on the [place] and 4.2 [place] test. On interview the patient is pleasant, able to contract for safety. No side effects with current medications Mental Status Exam Mental Status Exam Patient Appearance: Appropriate Patient Orientation: Person and Situation Level of Consciousness: Awake and Appropriate Patient Behavior: Appropriate and Cooperative Mood Description: Depressed Affect Description: Constricted Patient Cognition Impaired: Yes Ability to Follow Directions: Good Speech Pattern: Clear Hallucinations: None Delusions: Not Present Thought Process: Linear Judgement: Fair Diagnostics Vital Signs (24Hr): Vital Signs - 24 hr 09/24/22 19:52 09/25/22 06:00 Temperature 97.0 F Pulse Rate 80 84 Respiratory Rate 16 18 Blood Pressure 136/71 118/56 L Pulse Oximetry 100 99 Oxygen Delivery Method Room Air Room Air BMI result Body Mass Index 24.4 Labs 09/23/22 14:03 09/24/22 08:22 Labs: Laboratory Results - last 48 hr 09/23/22 09/23/22 09/24/22 13:06 14:03 08:22 Sodium 137 Potassium 4.1 Chloride 103 Carbon Dioxide 26 Anion Gap 12 BUN 13 Creatinine 1.07 Estim Creat Clear Calc 45.0 Estimated GFR 51 Fasting Glucose 93 Estimat Average Glucose Hemoglobin A1c % Calcium 9.0 Total Bilirubin 0.6 AST 20 ALT 16 Alkaline Phosphatase 86 Total Protein 6.8 Albumin 4.1 Triglycerides 124 Cholesterol 173 LDL Cholesterol, Calc 94 HDL Cholesterol 55 Vitamin B12 319 TSH 4.56 H Urine Color Yellow Urine Appearance Cloudy Urine pH 5.0 Ur Specific [place] 1.020 Urine Protein Negative Urine Glucose (UA) Negative Urine Ketones Trace Urine Blood Negative Urine Nitrite Negative Ur Leukocyte Esterase Large (3+) H Urine RBC 0-2 Urine WBC >50 H Ur Squamous Epith Cells 11-20 Urine Bacteria 2+ Hyaline Casts 3-5 Ethyl Alcohol < 10 09/24/22 08:22 Sodium Potassium Chloride Carbon Dioxide Anion Gap BUN Creatinine Estim Creat Clear Calc Estimated GFR Fasting Glucose Estimat Average Glucose 103 Hemoglobin A1c % 5.2 Calcium Total Bilirubin AST ALT Alkaline Phosphatase Total Protein Albumin Triglycerides Cholesterol LDL Cholesterol, Calc HDL Cholesterol Vitamin B12 TSH Urine Color Urine Appearance Urine pH Ur Specific [place] Urine Protein Urine Glucose (UA) Urine Ketones Urine Blood Urine Nitrite Ur Leukocyte Esterase Urine RBC Urine WBC Ur Squamous Epith Cells Urine Bacteria Hyaline Casts Ethyl Alcohol Medications Medications Current Medications Acetaminophen (Acetaminophen 325 Mg Tablet) 650 mg PO Q6H PRN PRN Reason: Headache/Pain Mild Scale (1-3) Last Admin: 09/24/22 15:26 Dose: 650 mg Al Hydroxide/Mg Hydroxide (Magnesium Hydrox/Alum Hydrox 30 Ml Oral.Susp) 30 ml PO Q6H PRN PRN Reason: Heartburn/Nausea Bupropion HCl (Bupropion Hcl Xl 300 Mg Tab.Er.24h) 300 mg PO DAILY REPLACED BY [facility] Last Admin: 09/25/22 08:24 Dose: 300 mg Cariprazine (Cariprazine Hcl 3 Mg Capsule) 3 mg PO DAILY [facility]PLAC[facility] BY [facility] Last Admin: 09/25/22 08:24 Dose: 3 mg Hydroxyzine HCl (Hydroxyzine Hcl 25 Mg Tablet) 25 mg PO Q6H PRN PRN Reason: Anxiety Magnesium Hydroxide (Milk Of Magnesia 30 Ml Oral.Susp) 30 ml PO DAILY PRN PRN Reason: Constipation Trazodone HCl (Trazodone Hcl 50 Mg Tablet) 50 mg PO BEDTIME PRN PRN Reason: Insomnia Last Admin: 09/24/22 00:55 Dose: 50 mg Allergies Allergies Allergy/AdvReac Type Severity Reaction Status Date / Time No Known Allergies Allergy Verified 09/23/22 15:00 Assessment & Plan Assessment & Plan (1) Bipolar disorder, most recent episode depressed: Status: Acute Code(s): F31.30 - Bipolar disorder, current episode depressed, mild or moderate severity, unspecified (2) Neurodegenerative cognitive impairment: Status: Acute Code(s): G31.9 - Degenerative disease of nervous system, unspecified Plan The patient is an elderly female with a long history of bipolar disorder who was admitted for exacerbation of depression in the context of noncompliance and other psychosocial stressors. She had a neurovegetative symptoms and she agreed to restart medications. Plan 1. Gather collateral information. 2. Restart trailer and Wellbutrin 3. Continue medical workout. 4. 15 minute checks Reason for continued inpatient stay Substantial Risk for: inability to function, rapid decompensation and med/psych decompensation Time Spent With Patient Time: Total time managing care of this patient today __20__ minutes.
[2022-09-25 18:00] VITALS: BP 125/79; PULSE 89; RESP 18; TEMP 36.3; O2SAT 98
[2022-09-26] MEDS: Acetaminophen 325 MG TABLET 650 MG PO ×2 (05:50→21:17)
[2022-09-26 06:00] VITALS: BP 130/62; PULSE 88; RESP 16; O2SAT 100
[2022-09-26] MEDS: Cariprazine HCl 3 MG CAPSULE PO (08:17)
[2022-09-26] MEDS: buPROPion HCl XL 300 MG TAB.ER.24H PO (08:17)
--- NOTE | 2022-09-26 14:24 | HO.PSYCHPN ---
Subjective Subjective Date of Service: 09/26/22 Reason For Visit: delusions Subjective Notes: Conditional Voluntary Interim History: The nursing staff reported the patient had been cooperative and pleasant with medications, the staff has noticed that she speaks very fast and she has flight of ideas. On interview the patient denies new symptoms she states that she is doing fine and it seems that she has flight of ideas and manic symptoms. She agreed increase Vraylar up to 4.5 mg daily. Mental Status Exam Mental Status Exam Patient Appearance: Appropriate Patient Orientation: Person and Situation Level of Consciousness: Awake and Appropriate Patient Behavior: Guarded and Passive Mood Description: Calm and Nervous Affect Description: Calm and Labile Patient Cognition Impaired: Yes Ability to Follow Directions: Fair Speech Pattern: Rapid Hallucinations: None Delusions: Grandiose Thought Process: Distracted Thought Content: positive for [place] and positive for Poverty of Content Judgement: Fair Diagnostics Vital Signs (24Hr): Vital Signs - 24 hr 09/25/22 18:00 09/26/22 06:00 Temperature 97.3 F Pulse Rate 89 88 Respiratory Rate 18 16 Blood Pressure 125/79 130/62 Pulse Oximetry 98 100 Oxygen Delivery Method Room Air Room Air BMI result Body Mass Index 24.4 Labs 09/23/22 14:03 09/24/22 08:22 Medications Medications Current Medications Acetaminophen (Acetaminophen 325 Mg Tablet) 650 mg PO Q6H PRN PRN Reason: Headache/Pain Mild Scale (1-3) Last Admin: 09/26/22 05:50 Dose: 650 mg Al Hydroxide/Mg Hydroxide (Magnesium Hydrox/Alum Hydrox 30 Ml Oral.Susp) 30 ml PO Q6H PRN PRN Reason: Heartburn/Nausea Bupropion HCl (Bupropion Hcl Xl 300 Mg Tab.Er.24h) 300 mg PO DAILY [facility] Last Admin: 09/26/22 08:17 Dose: 300 mg Cariprazine (Cariprazine Hcl 3 Mg Capsule) 3 mg PO DAILY [facility] Last Admin: 09/26/22 08:17 Dose: 3 mg Hydroxyzine HCl (Hydroxyzine Hcl 25 Mg Tablet) 25 mg PO Q6H PRN PRN Reason: Anxiety Magnesium Hydroxide (Milk Of Magnesia 30 Ml Oral.Susp) 30 ml PO DAILY PRN PRN Reason: Constipation Trazodone HCl (Trazodone Hcl 50 Mg Tablet) 50 mg PO BEDTIME PRN PRN Reason: Insomnia Last Admin: 09/24/22 00:55 Dose: 50 mg Allergies Allergies Allergy/AdvReac Type Severity Reaction Status Date / Time No Known Allergies Allergy Verified 09/23/22 15:00 Assessment & Plan Assessment & Plan (1) Bipolar disorder, most recent episode depressed: Status: Acute Code(s): F31.30 - Bipolar disorder, current episode depressed, mild or moderate severity, unspecified (2) Neurodegenerative cognitive impairment: Status: Acute Code(s): G31.9 - Degenerative disease of nervous system, unspecified Plan The patient is an elderly female with a long history of bipolar disorder who was admitted for exacerbation of depression in the context of noncompliance and other psychosocial stressors. She had a neurovegetative symptoms and she agreed to restart medications. Plan 1. Gather collateral information. 2. Restart trailer and Wellbutrin. Vraylar increased up to 4.5 mg po qhs on 09/26. 3. Continue medical workout. 4. 15 minute checks Reason for continued inpatient stay Substantial Risk for: inability to function, rapid decompensation and med/psych decompensation Time Spent With Patient Time: Total time managing care of this patient today __20__ minutes.
[2022-09-26 21:41] VITALS: BP 137/67; PULSE 83; RESP 16; TEMP 36.6; O2SAT 99
[2022-09-27] MEDS: hydrOXYzine HCL 25 MG TABLET PO (01:12)
[2022-09-27 08:55] VITALS: BP 144/63; PULSE 99; RESP 16; TEMP 36.5; O2SAT 99
[2022-09-27] MEDS: buPROPion HCl XL 300 MG TAB.ER.24H PO (09:23)
[2022-09-27] MEDS: Cariprazine HCl 1.5 MG CAPSULE 4.5 MG PO (09:23)
--- NOTE | 2022-09-27 10:30 | P.PNPSI_ITS ---
Subjective Subjective Date of Service: 09/27/22 Reason For Visit: delusions Interim History: cooperative, pleasant, engaging. somewhat hyperverbal, telling MD about her family and personal history in some detail. very enthusiastic about the help she has received here, planning to discharge thursday. per staff, DC thursday, doing well, improved from admission. Mental Status Exam Mental Status Exam Patient Appearance: Appropriate Patient Orientation: Person and Situation Level of Consciousness: Awake and Appropriate Patient Behavior: Talkative Mood Description: Happy Affect Description: Happy and Cheerful Patient Cognition Impaired: Yes Ability to Follow Directions: Fair Speech Pattern: Rapid Hallucinations: None Delusions: Not Present Thought Process: Distracted Thought Content: positive for Intact Judgement: Fair Diagnostics Vital Signs (24Hr): Vital Signs - 24 hr 09/26/22 21:41 09/27/22 08:55 Temperature 97.8 F 97.7 F Pulse Rate 83 99 Respiratory Rate 16 16 Blood Pressure 137/67 144/63 H Pulse Oximetry 99 99 Oxygen Delivery Method Room Air Room Air BMI result Body Mass Index 24.4 Labs 09/23/22 14:03 09/24/22 08:22 Medications Medications Current Medications Acetaminophen (Acetaminophen 325 Mg Tablet) 650 mg PO Q6H PRN PRN Reason: Headache/Pain Mild Scale (1-3) Last Admin: 09/26/22 21:17 Dose: 650 mg Al Hydroxide/Mg Hydroxide (Magnesium Hydrox/Alum Hydrox 30 Ml Oral.Susp) 30 ml PO Q6H PRN PRN Reason: Heartburn/Nausea Bupropion HCl (Bupropion Hcl Xl 300 Mg Tab.Er.24h) 300 mg PO DAILY [facility] Last Admin: 09/27/22 09:23 Dose: 300 mg Cariprazine (Cariprazine Hcl 1.5 Mg Capsule) 4.5 mg PO DAILY [facility] Last Admin: 09/27/22 09:23 Dose: 4.5 mg Hydroxyzine HCl (Hydroxyzine Hcl 25 Mg Tablet) 25 mg PO Q6H PRN PRN Reason: Anxiety Last Admin: 09/27/22 01:12 Dose: 25 mg Magnesium Hydroxide (Milk Of Magnesia 30 Ml Oral.Susp) 30 ml PO DAILY PRN PRN Reason: Constipation Trazodone HCl (Trazodone Hcl 50 Mg Tablet) 50 mg PO BEDTIME PRN PRN Reason: Insomnia Last Admin: 09/24/22 00:55 Dose: 50 mg Allergies Allergies Allergy/AdvReac Type Severity Reaction Status Date / Time No Known Allergies Allergy Verified 09/23/22 15:00 Assessment & Plan Assessment & Plan (1) Bipolar disorder, most recent episode depressed: Status: Acute Code(s): F31.30 - Bipolar disorder, current episode depressed, mild or moderate severity, unspecified (2) Neurodegenerative cognitive impairment: Status: Acute Code(s): G31.9 - Degenerative disease of nervous system, unspecified Plan The patient is an elderly female with a long history of bipolar disorder who was admitted for exacerbation of depression in the context of noncompliance and other psychosocial stressors. She had a neurovegetative symptoms and she agreed to restart medications. Plan 1. Gather collateral information. 2. Restart trailer and Wellbutrin. Vraylar increased up to 4.5 mg po qhs on 09/26. 3. Continue medical workout. 4. 15 minute checks 09/27: somewhat hyperverbal and very positive. planning for DC thursday. continue current mgmt. Reason for continued inpatient stay Substantial Risk for: inability to function and rapid decompensation Time Spent With Patient Time: Total time managing care of this patient today ____ minutes.
[2022-09-27] MEDS: Acetaminophen 325 MG TABLET 650 MG PO ×2 (12:43→19:55)
[2022-09-27 18:00] VITALS: BP 136/79; PULSE 82; RESP 16; TEMP 36.1; O2SAT 100
[2022-09-27] MEDS: traZODone HCL 50 MG TABLET PO (22:03)
[2022-09-28 08:18] VITALS: BP 133/72; PULSE 80; RESP 16; TEMP 36.3; O2SAT 97
[2022-09-28] MEDS: buPROPion HCl XL 300 MG TAB.ER.24H PO (08:28)
[2022-09-28] MEDS: Cariprazine HCl 1.5 MG CAPSULE 4.5 MG PO (08:28)
--- NOTE | 2022-09-28 10:38 | HO.PSYCHPN ---
Subjective Subjective Date of Service: 09/28/22 Reason For Visit: delusions Interim History: hyperverbal but pleasant. perhaps a tad less hyperverbal than yesterday. planning on Thursday. per staff, intrusive, manic. Mental Status Exam Mental Status Exam Patient Appearance: Appropriate Patient Orientation: Person and Situation Level of Consciousness: Awake and Appropriate Patient Behavior: Talkative Mood Description: Happy Affect Description: Happy and Cheerful Patient Cognition Impaired: Yes Ability to Follow Directions: Fair Speech Pattern: Rapid Hallucinations: None Delusions: Not Present Thought Process: Distracted Thought Content: positive for Intact Judgement: Fair Diagnostics Vital Signs (24Hr): Vital Signs - 24 hr 09/27/22 18:00 09/28/22 08:18 Temperature 96.9 F 97.4 F Pulse Rate 82 80 Respiratory Rate 16 16 Blood Pressure 136/79 133/72 Pulse Oximetry 100 97 Oxygen Delivery Method Room Air Room Air BMI result Body Mass Index 24.4 Labs 09/23/22 14:03 09/24/22 08:22 Medications Medications Current Medications Acetaminophen (Acetaminophen 325 Mg Tablet) 650 mg PO Q6H PRN PRN Reason: Headache/Pain Mild Scale (1-3) Last Admin: 09/27/22 19:55 Dose: 650 mg Al Hydroxide/Mg Hydroxide (Magnesium Hydrox/Alum Hydrox 30 Ml Oral.Susp) 30 ml PO Q6H PRN PRN Reason: Heartburn/Nausea Bupropion HCl (Bupropion Hcl Xl 300 Mg Tab.Er.24h) 300 mg PO DAILY [facility] Last Admin: 09/28/22 08:28 Dose: 300 mg Cariprazine (Cariprazine Hcl 1.5 Mg Capsule) 4.5 mg PO DAILY [facility] Last Admin: 09/28/22 08:28 Dose: 4.5 mg Hydroxyzine HCl (Hydroxyzine Hcl 25 Mg Tablet) 25 mg PO Q6H PRN PRN Reason: Anxiety Last Admin: 09/27/22 01:12 Dose: 25 mg Magnesium Hydroxide (Milk Of Magnesia 30 Ml Oral.Susp) 30 ml PO DAILY PRN PRN Reason: Constipation Trazodone HCl (Trazodone Hcl 50 Mg Tablet) 50 mg PO BEDTIME PRN PRN Reason: Insomnia Last Admin: 09/27/22 22:03 Dose: 50 mg Allergies Allergies Allergy/AdvReac Type Severity Reaction Status Date / Time No Known Allergies Allergy Verified 09/23/22 15:00 Assessment & Plan Assessment & Plan (1) Bipolar disorder, most recent episode depressed: Status: Acute Code(s): F31.30 - Bipolar disorder, current episode depressed, mild or moderate severity, unspecified (2) Neurodegenerative cognitive impairment: Status: Acute Code(s): G31.9 - Degenerative disease of nervous system, unspecified Plan The patient is an elderly female with a long history of bipolar disorder who was admitted for exacerbation of depression in the context of noncompliance and other psychosocial stressors. She had a neurovegetative symptoms and she agreed to restart medications. Plan 1. Gather collateral information. 2. Restart trailer and Wellbutrin. Vraylar increased up to 4.5 mg po qhs on 09/26. 3. Continue medical workout. 4. 15 minute checks 09/27: somewhat hyperverbal and very positive. planning for DC thursday. continue current mgmt. 09/28: marginally less hyperverbal than yesterday. continue current mgmt. despite hypomanic Sx, pt appears grounded in reality. Reason for continued inpatient stay Substantial Risk for: rapid decompensation Time Spent With Patient Time: Total time managing care of this patient today ____ minutes.
[2022-09-28] MEDS: Acetaminophen 325 MG TABLET 650 MG PO ×3 (11:02→23:15)
[2022-09-28 18:00] VITALS: BP 117/57; PULSE 87; RESP 20; TEMP 35.8; O2SAT 98
[2022-09-28] MEDS: traZODone HCL 50 MG TABLET PO (22:05)
[2022-09-29] MEDS: Acetaminophen 325 MG TABLET 650 MG PO ×3 (05:15→21:59)
[2022-09-29 08:14] VITALS: BP 112/53; PULSE 76; RESP 16; TEMP 36.3; O2SAT 100
[2022-09-29] MEDS: Cariprazine HCl 1.5 MG CAPSULE 4.5 MG PO (08:23)
[2022-09-29] MEDS: buPROPion HCl XL 300 MG TAB.ER.24H PO (08:23)
--- NOTE | 2022-09-29 10:32 | HO.PSYCHPN ---
Subjective Subjective Date of Service: 09/29/22 Reason For Visit: delusions Interim History: calm, cooperative. hyperverbal but not pressured. pleasant. has plans about how her discharge is to happen tommorow, unclear if they are reasonable expectations. enthusiastic about group she just got out of. per staff, intrusive, hyperverbal. Mental Status Exam Mental Status Exam Patient Appearance: Appropriate Patient Orientation: Person and Situation Level of Consciousness: Awake and Appropriate Patient Behavior: Talkative Mood Description: Happy Affect Description: Happy and Cheerful Patient Cognition Impaired: Yes Ability to Follow Directions: Fair Speech Pattern: Rapid Hallucinations: None Delusions: Not Present Thought Process: Distracted Thought Content: positive for Intact Judgement: Fair Diagnostics Vital Signs (24Hr): Vital Signs - 24 hr 09/28/22 18:00 09/29/22 08:14 Temperature 96.5 F L 97.4 F Pulse Rate 87 76 Respiratory Rate 20 16 Blood Pressure 117/57 L 112/53 L Pulse Oximetry 98 100 Oxygen Delivery Method Room Air Room Air BMI result Body Mass Index 24.4 Labs 09/23/22 14:03 09/24/22 08:22 Medications Medications Current Medications Acetaminophen (Acetaminophen 325 Mg Tablet) 650 mg PO Q6H PRN PRN Reason: Headache/Pain Mild Scale (1-3) Last Admin: 09/29/22 05:15 Dose: 650 mg Al Hydroxide/Mg Hydroxide (Magnesium Hydrox/Alum Hydrox 30 Ml Oral.Susp) 30 ml PO Q6H PRN PRN Reason: Heartburn/Nausea Bupropion HCl (Bupropion Hcl Xl 300 Mg Tab.Er.24h) 300 mg PO DAILY [facility] Last Admin: 09/29/22 08:23 Dose: 300 mg Cariprazine (Cariprazine Hcl 1.5 Mg Capsule) 4.5 mg PO DAILY [facility] Last Admin: 09/29/22 08:23 Dose: 4.5 mg Hydroxyzine HCl (Hydroxyzine Hcl 25 Mg Tablet) 25 mg PO Q6H PRN PRN Reason: Anxiety Last Admin: 09/27/22 01:12 Dose: 25 mg Magnesium Hydroxide (Milk Of Magnesia 30 Ml Oral.Susp) 30 ml PO DAILY PRN PRN Reason: Constipation Trazodone HCl (Trazodone Hcl 50 Mg Tablet) 50 mg PO BEDTIME PRN PRN Reason: Insomnia Last Admin: 09/28/22 22:05 Dose: 50 mg Allergies Allergies Allergy/AdvReac Type Severity Reaction Status Date / Time No Known Allergies Allergy Verified 09/23/22 15:00 Assessment & Plan Assessment & Plan (1) Bipolar disorder, most recent episode depressed: Status: Acute Code(s): F31.30 - Bipolar disorder, current episode depressed, mild or moderate severity, unspecified (2) Neurodegenerative cognitive impairment: Status: Acute Code(s): G31.9 - Degenerative disease of nervous system, unspecified Plan The patient is an elderly female with a long history of bipolar disorder who was admitted for exacerbation of depression in the context of noncompliance and other psychosocial stressors. She had a neurovegetative symptoms and she agreed to restart medications. Plan 1. Gather collateral information. 2. Restart trailer and Wellbutrin. Vraylar increased up to 4.5 mg po qhs on 09/26. 3. Continue medical workout. 4. 15 minute checks 09/27: somewhat hyperverbal and very positive. planning for DC thursday. continue current mgmt. 09/28: marginally less hyperverbal than yesterday. continue current mgmt. despite hypomanic Sx, pt appears grounded in reality. 09/29: hyperverbal, but interruptible and redirectable. pleasant, hypomanic. planning for discharge tomorrow. may need to be on a mood stabilizer. Reason for continued inpatient stay Substantial Risk for: inability to function and rapid decompensation Time Spent With Patient Time: Total time managing care of this patient today ____ minutes.
[2022-09-29 18:00] VITALS: BP 123/70; PULSE 86; RESP 18; TEMP 36.2; O2SAT 100
[2022-09-29] MEDS: traZODone HCL 50 MG TABLET PO (22:05)
[2022-09-30] MEDS: Acetaminophen 325 MG TABLET 650 MG PO (05:29)
--- NOTE | 2022-09-30 08:24 | PM.PSYDC ---
DS: Providers Provider Date of Service: 09/30/22 Date of admission: 09/23/22 21:06 Date of discharge: 09/30/22 Primary care physician: Ahsan Carrero MD DS: Diagnosis Discharge Diagnosis (1) Bipolar disorder, most recent episode depressed: Status: Acute (2) Neurodegenerative cognitive impairment: Status: Acute DS: Medications Discharge Medications Home Medications: Home Medications Medication Instructions Recorded Confirmed bupropion HCl 300 mg 24 hr tablet, 300 mg PO DAILY 07/11/20 09/23/22 extended release Vraylar 3 mg PO DAILY 09/23/22 09/23/22 Mental Status Exam Mental Status Exam Patient Appearance: Well Grooomed and Appropriate Patient Orientation: Person and Situation Level of Consciousness: Awake and Appropriate Patient Behavior: Guarded and Passive Mood Description: Calm Affect Description: Constricted Patient Cognition Impaired: Yes Ability to Follow Directions: Good Speech Pattern: Clear Hallucinations: None Delusions: Not Present Thought Process: Distracted and Linear Thought Content: positive for Traphill and positive for Circumstantial Judgement: Fair Data Data Completed and Pending Completed studies during hospitalization [Text1]: 09/23/22 09/23/22 09/23/22 12:29 13:06 13:06 WBC RBC Hgb Hct MCV MCH MCHC RDW Plt Count MPV Immature Gran % (Auto) Neut % (Auto) Lymph % (Auto) [place] % (Auto) Eos % (Auto) Baso % (Auto) Lymph # (Auto) [place] # (Auto) Eos # (Auto) Baso # (Auto) Abs Immat Gran (auto) Absolute Neuts (auto) Absolute Nucleated RBC Nucleated RBC % (auto) Sodium Potassium Chloride Carbon Dioxide Anion Gap BUN Creatinine Estim Creat Clear Calc Estimated GFR Random Glucose Fasting Glucose Estimat Average Glucose Hemoglobin A1c % Calcium Magnesium Total Bilirubin Direct Bilirubin AST ALT Alkaline Phosphatase Total Protein Albumin Triglycerides Cholesterol LDL Cholesterol, Calc HDL Cholesterol Vitamin B12 TSH Urine Color Yellow Urine Appearance Cloudy Urine pH 5.0 Ur Specific [place] 1.020 Urine Protein Negative Urine Glucose (UA) Negative Urine Ketones Trace Urine Blood Negative Urine Nitrite Negative Ur Leukocyte Esterase Large (3+) H Urine RBC 0-2 Urine WBC >50 H Ur Squamous Epith Cells 11-20 Urine Bacteria 2+ Hyaline Casts 3-5 Urine Opiates Screen Not Detected Urine Fentanyl Screen Not Detected Ur Barbiturates Screen Not Detected Ur Phencyclidine Scrn Not Detected Ur Amphetamines Screen Not Detected U Benzodiazepines Scrn Not Detected Urine Cocaine Screen Not Detected U Marijuana (THC) Screen Not Detected Ethyl Alcohol COVID-19 ([facility]) Negative COVID-19 Clin Com See Note 09/23/22 09/23/22 09/24/22 14:03 14:03 08:22 WBC 7.7 RBC 4.86 Hgb 14.4 Hct 44.3 MCV 91.2 MCH 29.6 MCHC 32.5 RDW 12.7 Plt Count 375 MPV 9.5 Immature Gran % (Auto) 0.3 Neut % (Auto) 73.0 Lymph % (Auto) 19.9 L [place] % (Auto) 5.7 Eos % (Auto) 0.7 Baso % (Auto) 0.4 Lymph # (Auto) 1.5 [place] # (Auto) 0.4 Eos # (Auto) 0.1 Baso # (Auto) 0.0 Abs Immat Gran (auto) 0.02 Absolute Neuts (auto) 5.6 Absolute Nucleated RBC 0.000 Nucleated RBC % (auto) 0.0 Sodium 139 137 Potassium 4.1 4.1 Chloride 103 103 Carbon Dioxide 27 26 Anion Gap 13 12 BUN 16 13 Creatinine 1.04 1.07 Estim Creat Clear Calc 42.8 45.0 Estimated GFR 53 51 Random Glucose 100 Fasting Glucose 93 Estimat Average Glucose Hemoglobin A1c % Calcium 9.1 9.0 Magnesium 2.0 Total Bilirubin 0.7 0.6 Direct Bilirubin 0.2 AST 19 20 ALT 15 16 Alkaline Phosphatase 97 86 Total Protein 7.2 6.8 Albumin 4.2 4.1 Triglycerides 124 Cholesterol 173 LDL Cholesterol, Calc 94 HDL Cholesterol 55 Vitamin B12 319 TSH 4.56 H Urine Color Urine Appearance Urine pH Ur Specific [place] Urine Protein Urine Glucose (UA) Urine Ketones Urine Blood Urine Nitrite Ur Leukocyte Esterase Urine RBC Urine WBC Ur Squamous Epith Cells Urine Bacteria Hyaline Casts Urine Opiates Screen Urine Fentanyl Screen Ur Barbiturates Screen Ur Phencyclidine Scrn Ur Amphetamines Screen U Benzodiazepines Scrn Urine Cocaine Screen U Marijuana (THC) Screen Ethyl Alcohol < 10 COVID-19 ([facility]) COVID-19 Clin Com 09/24/22 08:22 WBC RBC Hgb Hct MCV MCH MCHC RDW Plt Count MPV Immature Gran % (Auto) Neut % (Auto) Lymph % (Auto) [place] % (Auto) Eos % (Auto) Baso % (Auto) Lymph # (Auto) [place] # (Auto) Eos # (Auto) Baso # (Auto) Abs Immat Gran (auto) Absolute Neuts (auto) Absolute Nucleated RBC Nucleated RBC % (auto) Sodium Potassium Chloride Carbon Dioxide Anion Gap BUN Creatinine Estim Creat Clear Calc Estimated GFR Random Glucose Fasting Glucose Estimat Average Glucose 103 Hemoglobin A1c % 5.2 Calcium Magnesium Total Bilirubin Direct Bilirubin AST ALT Alkaline Phosphatase Total Protein Albumin Triglycerides Cholesterol LDL Cholesterol, Calc HDL Cholesterol Vitamin B12 TSH Urine Color Urine Appearance Urine pH Ur Specific [place] Urine Protein Urine Glucose (UA) Urine Ketones Urine Blood Urine Nitrite Ur Leukocyte Esterase Urine RBC Urine WBC Ur Squamous Epith Cells Urine Bacteria Hyaline Casts Urine Opiates Screen Urine Fentanyl Screen Ur Barbiturates Screen Ur Phencyclidine Scrn Ur Amphetamines Screen U Benzodiazepines Scrn Urine Cocaine Screen U Marijuana (THC) Screen Ethyl Alcohol COVID-19 ([facility]) COVID-19 Clin Com 09/23/22 Unknown Urine clean catch - Urine atkinson top Urine Culture - Final DS: Summary Hospital Course Hospital Course: The patient is 66-year-old female with a long history of bipolar disorder who was brought into the facility for exacerbation of depression in the context of noncompliance of medications for at least 3 months. She carries the diagnosis of bipolar disorder. Please see the HPI of the admission note for further details. On admission, we review her list of medications, she adamantly denies suicidal ideation but she was restarted on her Wellbutrin and Vraylar. When she was in the facility, she was able to participate in groups, she could perform her ADL less and cognitive assessments were done that showed a mild cognitive impairment. When she was in the unit, he was clear that the patient had mixed symptoms with increasing racing thoughts, hyperverbal and some dysphoria. We discussed risks, benefits, side-effects and alternatives and she agreed increase regular up to 4.5 mg p.o. q.h.s. to target hypomanic symptoms. Since there were no safety concerns discharge planning was discussed. Time spent discussing smoking cessation with patient: 3 to 10 minutes Status at Discharge Cognitive/behavioral status at discharge: Mildly impaired at baseline Functional status at discharge: independent ambulation Overall status at discharge: patient is back to baseline Time Spent with Patient Time attestation: Total time managing care of this patient today __30__ minutes. Time spent: Less than 30 minutes Discharge Plan Discharge Anticipated Discharge Date/Time: 09/30/22 09:00 Patient Disposition: Home, Self-Care Discharge Diagnosis: Bipolar disorder most recent episode mixed. Neurocognitive disorder mild Referrals: Dr. Maria Alejandra OCONNOR, Psych [Other] - 10/08/22 2:00 pm (Appointment scheduled for: 10/08/2022 @ 2pm ) KARMEN Devries [Other] - 1 Week Ahsan Carrero MD [Primary Care Provider] - 10/07/22 1:30 pm () Discharge Medications: New bupropion HCl 300 mg Tablet Extended Release 24 Hr 300 mg PO DAILY 30 Days Qty: 30 1RF Vraylar 1.5 mg Capsule 4.5 mg PO DAILY Qty: 30 0RF Discontinued Vraylar 3 mg PO DAILY Rx Instructions: Pt reports stopping taking medication 1 month ago but took 1 dose yesterday bupropion HCl 300 mg tablet extended release 24 hr 300 mg PO DAILY Rx Instructions: Pt report she stopped taking her medication for 1 month and took 1 dose yesterday Discharge Orders: Discharge Order (Routine); Ordered 09/30/22 Ordered By: Shoaib Valencia Diet: Advance to usual diet Activity on Discharge: As tolerated Stand Alone Forms: Patient Portal Discharge page Care Plan Goals: Care plan goals achieved in this admission Health Concerns: Continue treatment with primary care physician as an outpatient Plan of Treatment: Continue medication management as an outpatient Assessment: Elderly female with a long history of bipolar disorder admitted for exacerbation of depression in the context of noncompliance for the last 3 months. At this moment safe to be discharged in the community no evidence of safety concerns.
[2022-09-30 08:59] VITALS: BP 140/63; PULSE 84; RESP 18; TEMP 36.1; O2SAT 100
[2022-09-30] MEDS: buPROPion HCl XL 300 MG TAB.ER.24H PO (09:00)
[2022-09-30] MEDS: Cariprazine HCl 1.5 MG CAPSULE 4.5 MG PO (09:33)
--- NOTE | 2022-09-30 12:10 | PC.NURSE ---
Pt. A & O X 4. Reports readiness for discharge. Denies SI/HI/Depresison/anxiety. Continues to be hyper verbal. Medications and discharge instructions reviewed with pt., who verbalized understanding. Pt. given crisis resources and resources for rehoming her dog. Personal items and meds returned to pt. Pt. left unit 11:45 escorted by this RN and entered [employer] at main entrance.
== END 2022-09-30 11:45 | disposition home or self-care (01) | DRG 885 ==
LOC: HO.ED 19:22 → HO.PGERI 21:17
PROVIDERS: Physician Assistant; Admitting Provider Social Worker; Emergency Provider Emergency Medicine Emergency Medical Services; PCP Internal Medicine; Visit Provider Social Worker
DX: F31.30 Bipolar disorder, current episode depressed, mild or moderate severity, unspecified (principal); G31.84 Mild cognitive impairment of uncertain or unknown etiology; Z91.148 Patient's other noncompliance with medication regimen for other reason; Z20.822 Contact with and (suspected) exposure to COVID-19; Z87.891 Personal history of nicotine dependence; Z79.899 Other long term (current) drug therapy
CPT/HCPCS: 36415; 80048; 80053; 80061; 80076; 80307; 81001; 82607; 83036; 83735; 84443; 85025; 87086; 87635; 93005; 99285

== ENCOUNTER 2022-10-03 12:24 | Emergency (ER) | payer MEDICARE, SELFPAY ==
[2022-10-03 12:28] VITALS: BP 183/98; PULSE 110; RESP 16; TEMP 36.8; O2SAT 98; BMI 25.0
--- NOTE | 2022-10-03 12:28 | ED_ITS ---
HPI - General Adult General Chief complaint: General Medical Stated complaint: abd pain , swollen waist down Time Seen by Provider: 10/03/22 16:36 Source: patient Mode of arrival: ambulatory Limitations: no limitations History of Present Illness HPI narrative: Patient comes emergency room complaining of worsening lower extremity edema for couple of days. Patient denies any shortness of breath, no chest pain. Patient denies any coughing, no nausea vomiting or diarrhea. Related Data Previous Rx's Medication Instructions Recorded bupropion HCl 300 mg 24 hr tablet, 300 mg PO DAILY 30 days #30 tabs 09/30/22 extended release cariprazine 1.5 mg capsule 4.5 mg PO DAILY #30 caps 09/30/22 (Vraylar) furosemide 40 mg tablet (Lasix) 40 mg PO DAILY #7 tabs 10/03/22 Allergies Allergy/AdvReac Type Severity Reaction Status Date / Time No Known Allergies Allergy Verified 10/03/22 10:34 Review of Systems Review of Systems: Constitutional : No Weight loss, No Fever, No Chills, No Night Sweats, No Fatigue, No Malaise ENT/Mouth : No Hearing loss, No Ear Pain, No Nasal Congestion, No Sinus Pain, No Hoarseness, No sore throat, No Rhinorrhea, No Swallowing Difficulty Eyes: No Eye Pain, No Swelling, No Redness, No Foreign Body, No Discharge, No Vision Changes Cardiovascular : No Chest Pain, No SOB, No Dyspnea on Exertion, No Orthopnea, no palpitations, complaining of lower extremity edema Respiratory : No Cough, No Sputum, No Wheezing, No Smoke Exposure, No Dyspnea Gastrointestinal : No Nausea, No Vomiting, No Diarrhea, No Constipation, No abdominal Pain, No Hematochezia, No Melena Genitourinary : no irregular bleeding, No Dysuria, No Urinary Frequency, No Hematuria, No Urinary Incontinence, No Urgency, No Flank Pain, No Urinary Flow Changes, No Hesitancy Musculoskeletal : No joint pain, No Myalgias, No Joint Swelling Skin : No Skin Lesions, No rash Neuro : No Weakness, No Numbness, No Paresthesias, No Loss of Consciousness, No Dizziness, No Headache Psych : No Anxiety/Panic, No Depression, No SI/HI/AH/VH, No Social Issues, Heme/Lymph: No Bruising, No Bleeding,No Lymphadenopathy Endocrine : No Polyuria, No Polydipsia, No Temperature Intolerance PMFSH Past Medical History Medical History (Updated 10/03/22 @ 19:01 by Naomi Daniels MD) Bipolar disorder, most recent episode depressed Depression Neurodegenerative cognitive impairment Surgical History Hx of colonoscopy No significant past surgical history Social History Social History Household Members: Spouse and Children Housing: House Do you presently have visiting nurse or other home services: No Patient Tobacco Use Status: Former Tobacco user Advance Directives: No Advance Directives Information Provided: Yes service: No Sexual orientation: Straight/Heterosexual Physical Exam ED Vital Signs: Vital Signs - 24 hr 10/03/22 12:28 10/03/22 17:31 10/03/22 18:50 Temperature 98.3 F Pulse Rate 110 H 82 88 Respiratory Rate 16 16 Blood Pressure 183/98 H 183/103 H 174/95 H Pulse Oximetry 98 99 Oxygen Delivery Method Room Air Room Air BMI result Body Mass Index 25.0 Const Other: Appearance: Alert. Oriented X3. No acute distress. Eyes: Pupils equal, round and reactive to light. ENT: Pharynx normal. Neck: Normal inspection. Neck supple. No lymph nodes noted. No crepitus CVS: Normal heart rate and rhythm. Pulses normal. Normal S1 and S2 Respiratory: No respiratory distress. Breath sounds normal. No Wheezing. No rales Abdomen: Soft and nontender. No rigidity. No distention. Skin: Skin warm and dry. Normal skin color. Normal skin turgor. Extremities: +1 pitting edema bilaterally, No Lacerations. No Rash Neuro: Oriented X 3. No motor deficit. No sensory deficit. Moving all ex tremities. No slurred speech. CN 2 through 12 grossly intact Psych: calm, cooperative, normal affect Course Course Course Narrative: RME performed by Laurita Alonzo PA-C. Patient is a 66 year old assigned female at presenting to the emergency department with all over swelling. Patient recently discharged from the psychiatric unit here and her was admitted yesterday for a medical issue. Labs ordered. Patient placed back in the waiting room pending room availability and results. Medications Administered Discontinued Medications Generic Name Dose Route Start Last Admin Trade Name Freq PRN Reason Stop Dose Admin Furosemide 40 mg 10/03/22 16:45 10/03/22 17:29 Furosemide 40 Mg Tablet PO 10/03/22 16:46 40 mg ONCE ONE Administration Protocol Medical Decision Making Medical Decision Making [facility] [place] Narrative: -oxygen saturation 100% on room air, 98% with exertion, BMP within normal limits, on auscultation, lungs are completely clear. -patient does have mild/+1 pitting edema bilaterally, no calf pain, patient was given 40 mg of p.o. Lasix. -patient states that she suspects she may have a UTI, requesting a urinalysis. -patient's urinalysis is positive for leukocyte esterase and white blood cell count. However, patient had a urine test on September 23, it grew mixed bacterial kaitlin. -patient feeling better, ambulatory, oxygen saturation 98% on room air Lab Data [facility] [place] Lab Attestation statement: I reviewed the patient's lab results. 10/03/22 12:38 10/03/22 12:38 Labs: Lab Results 10/03/22 10/03/22 10/03/22 Range/Units 12:38 12:38 12:38 WBC 7.7 (4.8-10.8) X10*3/uL RBC 4.23 (4.20-5.50) X10*6/uL Hgb 12.4 (12.0-16.0) g/dl Hct 38.4 (37.0-47.0) % MCV 90.8 (80.0-98.0) fL MCH 29.3 (27.0-33.0) pg MCHC 32.3 (31.0-35.0) g/dl RDW 13.2 (11.0-16.0) % Plt Count 365 (160-400) X10*3/uL MPV 9.0 L (9.4-12.3) fL Immature Gran % (Auto) 0.3 (0.0-0.4) % Neut % (Auto) 63.8 (45-73) % Lymph % (Auto) 25.4 (20-40) % [place] % (Auto) 8.8 (2-11) % Eos % (Auto) 1.3 (0-4) % Baso % (Auto) 0.4 (0-2) % Lymph # (Auto) 2.0 (1.2-4.9) X10*3/uL [place] # (Auto) 0.7 (0.1-1.2) X10*3/uL Eos # (Auto) 0.1 (0.0-0.4) X10*3/uL Baso # (Auto) 0.0 (0.0-0.2) X10*3/uL Abs Immat Gran (auto) 0.02 (0.00-0.03) X10*3/uL Absolute Neuts (auto) 4.9 (2.0-8.3) x10*3/uL Absolute Nucleated RBC 0.000 (0.0-0.012) X10*3/uL Nucleated RBC % (auto) 0.0 (0.0-0.2) /100WBC Sodium 140 (135-145) mmol/L Potassium 4.0 (3.3-5.1) mmol/L Chloride 107 (96-108) mmol/L Carbon Dioxide 23 (22-29) mmol/L Anion Gap 14 (12-20) BUN 13 (9-16) mg/dL Creatinine 0.97 (0.5-1.4) mg/dL Estim Creat Clear Calc 49.9 Estimated GFR 57 Random Glucose 89 (60-115) mg/dL Calcium 9.4 (8.4-10.2) mg/dL Magnesium 2.0 (1.6-2.6) mg/dL Total Bilirubin 0.6 (0.0-1.0) mg/dL AST 34 H (5-31) U/L ALT 31 (0-31) U/L Alkaline Phosphatase 93 (39-117) U/L B-Natriuretic Peptide 26 (<100) pg/mL Total Protein 6.8 (6.5-8.0) g/dL Albumin 4.0 (3.5-5.0) g/dL Urine Color Urine Appearance Urine pH (5.0-9.0) Ur Specific [place] (1.005-1.025) Urine Protein (Neg-Trace) mg/dL Urine Glucose (UA) (Negative) mg/dL Urine Ketones (Negative) mg/dL Urine Blood (Negative) Urine Nitrite (Negative) Ur Leukocyte Esterase (Negative) Urine RBC (0-2) /HPF Urine WBC (0-5) /HPF Ur Squamous Epith Cells (0-2) /HPF Urine Bacteria (None Seen) Hyaline Casts (0-2) /LPF 10/03/22 Range/Units 17:32 WBC (4.8-10.8) X10*3/uL RBC (4.20-5.50) X10*6/uL Hgb (12.0-16.0) g/dl Hct (37.0-47.0) % MCV (80.0-98.0) fL MCH (27.0-33.0) pg MCHC (31.0-35.0) g/dl RDW (11.0-16.0) % Plt Count (160-400) X10*3/uL MPV (9.4-12.3) fL Immature Gran % (Auto) (0.0-0.4) % Neut % (Auto) (45-73) % Lymph % (Auto) (20-40) % [place] % (Auto) (2-11) % Eos % (Auto) (0-4) % Baso % (Auto) (0-2) % Lymph # (Auto) (1.2-4.9) X10*3/uL [place] # (Auto) (0.1-1.2) X10*3/uL Eos # (Auto) (0.0-0.4) X10*3/uL Baso # (Auto) (0.0-0.2) X10*3/uL Abs Immat Gran (auto) (0.00-0.03) X10*3/uL Absolute Neuts (auto) (2.0-8.3) x10*3/uL Absolute Nucleated RBC (0.0-0.012) X10*3/uL Nucleated RBC % (auto) (0.0-0.2) /100WBC Sodium (135-145) mmol/L Potassium (3.3-5.1) mmol/L Chloride (96-108) mmol/L Carbon Dioxide (22-29) mmol/L Anion Gap (12-20) BUN (9-16) mg/dL Creatinine (0.5-1.4) mg/dL Estim Creat Clear Calc Estimated GFR Random Glucose (60-115) mg/dL Calcium (8.4-10.2) mg/dL Magnesium (1.6-2.6) mg/dL Total Bilirubin (0.0-1.0) mg/dL AST (5-31) U/L ALT (0-31) U/L Alkaline Phosphatase (39-117) U/L B-Natriuretic Peptide (<100) pg/mL Total Protein (6.5-8.0) g/dL Albumin (3.5-5.0) g/dL Urine Color Yellow Urine Appearance Clear Urine pH 7.5 (5.0-9.0) Ur Specific [place] 1.010 (1.005-1.025) Urine Protein Negative (Neg-Trace) mg/dL Urine Glucose (UA) Negative (Negative) mg/dL Urine Ketones Negative (Negative) mg/dL Urine Blood Negative (Negative) Urine Nitrite Negative (Negative) Ur Leukocyte Esterase Large (3+) H (Negative) Urine RBC 0-2 (0-2) /HPF Urine WBC 6-10 H (0-5) /HPF Ur Squamous Epith Cells 0-2 (0-2) /HPF Urine Bacteria None Seen (None Seen) Hyaline Casts 0-2 (0-2) /LPF Discharge Plan Discharge Clinical Impression: Edema of both lower extremities Patient Disposition: Home, Self-Care Instructions: Leg Edema (ED) Additional Instructions: Please follow-up with your primary care physician tomorrow. If you have any worsening or new symptoms, please return to the emergency room or call 911 Prescriptions: New furosemide [Lasix] 40 mg tablet 40 mg PO DAILY Qty: 7 0RF No Action bupropion HCl 300 mg Tablet Extended Release 24 Hr 300 mg PO DAILY 30 Days Qty: 30 1RF Vraylar 1.5 mg Capsule 4.5 mg PO DAILY Qty: 30 0RF
[2022-10-03 12:43] LABS: MANUAL DIFF FLAG NO
[2022-10-03 12:47] LABS: Basophils Percent Auto 0.4 % (0-2); Eosinophils Absolute Auto 0.1 X10*3/uL (0.0-0.4); Eosinophils Percent Auto 1.3 % (0-4); Hematocrit 38.4 % (37.0-47.0); Hemoglobin 12.4 g/dl (12.0-16.0); Imm Gran Abs Auto 0.02 X10*3/uL (0.00-0.03); Imm Gran Pct Auto 0.3 % (0.0-0.4); Lymphocytes Percent Auto 25.4 % (20-40); Mean Corpuscular HGB Conc 32.3 g/dl (31.0-35.0); Mean Corpuscular Hemoglobin 29.3 pg (27.0-33.0); Mean Corpuscular Volume 90.8 fL (80.0-98.0); Monocytes Absolute Auto 0.7 X10*3/uL (0.1-1.2); Monocytes Percent Auto 8.8 % (2-11); Neutrophils Absolute Auto 4.9 x10*3/uL (2.0-8.3); Neutrophils Percent Auto 63.8 % (45-73); Platelet Count 365 X10*3/uL (160-400); Red Blood Count 4.23 X10*6/uL (4.20-5.50); Red Cell Distribution Width 13.2 % (11.0-16.0); White Blood Count 7.7 X10*3/uL (4.8-10.8)
[2022-10-03 13:01] LABS: Alanine Aminotransferase 31 U/L (0-31); Alkaline Phosphatase 93 U/L (39-117); Anion Gap 14 (12-20); Aspartate Amino Transferase 34 U/L (5-31); Bilirubin Total 0.6 mg/dL (0.0-1.0); Blood Urea Nitrogen 13 mg/dL (9-16); Calcium 9.4 mg/dL (8.4-10.2); Carbon Dioxide 23 mmol/L (22-29); Chloride 107 mmol/L (96-108); Creatinine Clr Calc Pharmacy 49.9; Estimated Glomerular Filt Rate 57; Glucose Random 89 mg/dL (60-115); Sodium 140 mmol/L (135-145); Total Protein 6.8 g/dL (6.5-8.0)
[2022-10-03 13:08] LABS: B Type Natriuretic Peptide 26 pg/mL (<100)
[2022-10-03] MEDS: Furosemide 40 MG TABLET PO (17:29)
[2022-10-03 17:31] VITALS: BP 183/103; PULSE 82; RESP 16; O2SAT 99
[2022-10-03 17:50] LABS: Appearance Urine Clear; Color Urine Yellow; Glucose Urine UA Negative (Negative); Leukocyte Esterase Urine Large (3+) (Negative); Nitrite Urine Negative (Negative); PH 7.5 (5.0-9.0); UMIC TRIGGER UACC YES; Urine Blood Negative (Negative); Urine Ketones Negative (Negative); Urine Protein Negative (Neg-Trace)
[2022-10-03 17:56] LABS: Bacteria Urine None Seen (None Seen); Hyaline Casts Urine 0-2 /LPF (0-2); RBC Urine 0-2 /HPF (0-2); Squamous Epithelial Cell Urine 0-2 /HPF (0-2); UACC Culture Trigger YES
[2022-10-03 18:50] VITALS: BP 174/95; PULSE 88
== END 2022-10-03 20:28 | disposition home or self-care (01) ==
PROVIDERS: Physician Assistant Medical; Emergency Provider Emergency Medicine; PCP Internal Medicine
DX: R60.0 Localized edema (principal); Z79.899 Other long term (current) drug therapy
CPT/HCPCS: 36415; 80053; 81001; 83735; 83880; 85025; 87086; 99283

== ENCOUNTER 2022-12-13 16:50 | Inpatient (IN) | payer MEDICARE, SELFPAY ==
--- NOTE | ~2022-12-13 | US_ITS ---
EXAMINATION: Noninvasive assessment of the left lower extremities with ARTERIAL DUPLEX CLINICAL INFORMATION: Peripheral vascular disease, extremity edema TECHNIQUE: Duplex Doppler techniques with waveform analysis and measurement of velocities in the bilateral common femoral, profunda femoris, superficial femoral, popliteal and tibial arteries were performed. Additionally, ankle pulse volume recordings, ankle pressure measurements and ankle brachial indices were obtained of the lower extremity arterial system bilaterally. The study was performed only at rest. COMPARISON: None FINDINGS: DIRECT DUPLEX DOPPLER FINDINGS: LEFT LEG: Common femoral artery: 147 cm/s, phasicity: Triphasic Profunda femoris artery: 109 cm/s, phasicity: Biphasic Superficial femoral artery (proximal): 111 cm/s, phasicity: Triphasic Superficial femoral artery (mid): 115 cm/s, phasicity: Triphasic Superficial femoral artery (distal): 120 cm/s, phasicity: Triphasic Popliteal artery: 121 cm/s, phasicity: Triphasic Posterior tibial artery: 125 cm/s, phasicity: Triphasic Peroneal artery: 42.3 cm/s, phasicity: Monophasic Anterior tibial artery: 69.0 cm/s, phasicity: Triphasic US/US arterial duplex LE LT IMPRESSION: Widely patent flow throughout the left lower extremity
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
--- NOTE | ~2022-12-13 | XR_ITS ---
EXAMINATION: XR HIP, LEFT CLINICAL INFORMATION: Persistent left hip pain COMPARISON: None available. TECHNIQUE: Two views of the left hip and AP view of the pelvis. FINDINGS: Mineralization appears normal. There is no fracture or dislocation. The hip joint spaces are preserved and symmetric, without arthritic change. The periarticular soft tissues appear unremarkable. Note is made of possible compression deformity of L4 with evidence of lumbar scoliosis and degenerative disc and facet disease. Ringlike density in the midline consistent with a pessary. XR/XR hip LT w PEL1V IMPRESSION: No abnormality is seen in the hip. 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
--- NOTE | ~2022-12-13 | US_ITS ---
EXAMINATION: US VENOUS ULTRASOUND WITH DOPPLER LOWER EXTREMITY, LEFT CLINICAL INFORMATION: Pulmonary edema. Palpable lump. COMPARISON: None available. TECHNIQUE: Ultrasound of the deep veins is performed from the hip to the calf with compression sonography and color and pulse Doppler assessment. Spectral analysis with color-flow imaging is performed. FINDINGS: There is normal venous compression and respiratory variation and augmented flow. The visualized common femoral vein, superficial femoral vein, profunda femoral vein, popliteal vein, and the trifurcation region shows no evidence of deep venous thrombosis. No left popliteal cyst. The subcutaneous soft tissues are unremarkable. If the patient's symptoms persist, followup ultrasound in 5 days 7 days might be of value to exclude proximal propagation from a non-visualized calf vein. US/US venous duplex LE IMPRESSION: No evidence for deep venous thrombosis in the visualized veins of the left lower extremity.
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
--- NOTE | 2022-12-13 17:48 | ECG_ITS ---
Test Reason : ALTERMENTAL Blood Pressure : / mmHG Vent. Rate : 083 BPM Atrial Rate : 083 BPM P-R Int : 148 ms QRS Dur : 088 ms QT Int : 376 ms P-R-T Axes : 074 -14 046 degrees QTc Int : 441 ms Normal sinus rhythm Possible Left atrial enlargement Borderline ECG When compared with ECG of 23-SEP-2022 19:22, No significant change was found Referred By: Surya Moncada Electronically Signed By:Asael Rankin
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
[2022-12-13 17:52] VITALS: BP 139/90; PULSE 90; RESP 16; TEMP 36.6; O2SAT 95; BMI 24.8
[2022-12-13 18:20] LABS: MANUAL DIFF FLAG NO
[2022-12-13 18:21] LABS: Basophils Percent Auto 0.3 % (0-2); Eosinophils Absolute Auto 0.1 X10*3/uL (0.0-0.4); Eosinophils Percent Auto 0.8 % (0-4); Hematocrit 44.3 % (37.0-47.0); Hemoglobin 14.5 g/dl (12.0-16.0); Imm Gran Abs Auto 0.02 X10*3/uL (0.00-0.03); Imm Gran Pct Auto 0.3 % (0.0-0.4); Lymphocytes Percent Auto 25.7 % (20-40); Mean Corpuscular HGB Conc 32.7 g/dl (31.0-35.0); Mean Corpuscular Hemoglobin 28.7 pg (27.0-33.0); Mean Corpuscular Volume 87.5 fL (80.0-98.0); Mean Platelet Volume 9.1 fL (9.4-12.3); Monocytes Absolute Auto 0.6 X10*3/uL (0.1-1.2); Monocytes Percent Auto 7.3 % (2-11); Neutrophils Absolute Auto 5.2 x10*3/uL (2.0-8.3); Neutrophils Percent Auto 65.6 % (45-73); Platelet Count 336 X10*3/uL (160-400); Red Blood Count 5.06 X10*6/uL (4.20-5.50); Red Cell Distribution Width 12.7 % (11.0-16.0); White Blood Count 7.9 X10*3/uL (4.8-10.8)
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
--- NOTE | 2022-12-13 18:34 | MHC.EDTECH ---
Assist patient with change consultant, put patient on monitor, and gave patient bathing cloths to hygiene purposes.
[2022-12-13 18:42] LABS: Alanine Aminotransferase 15 U/L (0-31); Albumin Level 4.2 g/dL (3.5-5.0); Alkaline Phosphatase 88 U/L (39-117); Anion Gap 14 (12-20); Aspartate Amino Transferase 19 U/L (5-31); Bilirubin Total 0.5 mg/dL (0.0-1.0); Blood Urea Nitrogen 18 mg/dL (9-16); Calcium 9.4 mg/dL (8.4-10.2); Carbon Dioxide 24 mmol/L (22-29); Chloride 107 mmol/L (96-108); Creatinine Clr Calc Pharmacy 52.3; Estimated Glomerular Filt Rate > 60; Glucose Random 93 mg/dL (60-115); Lipase 27 U/L (8-78); Potassium 4.1 mmol/L (3.3-5.1); Sodium 141 mmol/L (135-145); Total Protein 7.4 g/dL (6.5-8.0)
[2022-12-13 18:54] LABS: Acetaminophen LAB < 17 mcg/mL (<30); Salicylate < 5.0 mg/dL (15-30)
[2022-12-13 19:58] VITALS: BP 127/86; PULSE 74; RESP 17; TEMP 37.1; O2SAT 94
[2022-12-13 22:05] LABS: Ethanol < 10 mg/dL
[2022-12-13 22:24] VITALS: BP 126/80; PULSE 72; RESP 17; TEMP 36.8; O2SAT 96
[2022-12-14] LABS: Appearance Urine Turbid; Color Urine Yellow; Glucose Urine UA Negative (Negative); Leukocyte Esterase Urine Moderate (2+) (Negative); Nitrite Urine Negative (Negative); PH 5.5 (5.0-9.0); Specific Gravity - Urine >= 1.030 (1.005-1.025); UMIC TRIGGER UACC YES; Urine Blood Small (1+) (Negative); Urine Ketones 15 mg/dL (Negative); Urine Protein 30 (1+) mg/dL (Neg-Trace)
[2022-12-14 00:10] LABS: Amphetamine Screen Urine Not Detected (Not Detect); Barbiturates, Urine Not Detected (Not Detect); Benzodiazepines Screen Urine Not Detected (Not Detect); Cannabinoid Screen Urine Not Detected (Not Detect); Cocaine Screen Urine Not Detected (Not Detect); Fentanyl, urine Not Detected (Not Detect); Opiate Screen Urine Not Detected (Not Detect); Phencyclidine Screen Urine Not Detected (Not Detect)
--- NOTE | 2022-12-14 00:10 | PC.NURSE ---
Patient provided urine sample, much more talkative with this RN. Patient explained that this was the worst I've ever been, I really want to shower and wash up . This RN explained the need for urine, patient provided urine, asked for food and was given food, ate, and is resting comfortably
[2022-12-14 00:17] VITALS: BP 108/71; PULSE 77; RESP 17; TEMP 37; O2SAT 97
[2022-12-14 00:29] LABS: Bacteria Urine 4+ (None Seen); Squamous Epithelial Cell Urine >20 /HPF (0-2); UACC Culture Trigger YES; WBC Urine >50 /HPF (0-5)
[2022-12-14 04:47] VITALS: BP 106/65; PULSE 61; RESP 17; TEMP 36.6; O2SAT 97
[2022-12-14 07:43] VITALS: BP 113/77; PULSE 79; RESP 17; O2SAT 98
--- NOTE | 2022-12-14 08:10 | PC.NURSE ---
pt a&ox3. respirations even and unlabored. pt resting comfortably. pt reports no pain.
--- NOTE | 2022-12-14 08:23 | PC.NURSE ---
pt currently reports no si/hi. pt smiling and pleasant to speak to.
--- NOTE | 2022-12-14 08:30 | PC.NURSE ---
Lesly from the care team at bedside
--- NOTE | 2022-12-14 08:52 | PHA.MEDREC ---
Pharmacy Consult ? Medication Reconciliation Pharmacy has completed the medication reconciliation. Spoke to patient to confirm meds. Patient reports only being on buproprion and Vraylar, claiming that they haven't taken these medications in about a month and a half .
--- NOTE | 2022-12-14 09:09 | PC.NURSE ---
pt medicated per MAR. denies si/hi.
--- NOTE | 2022-12-14 09:13 | PC.NURSE ---
med rec completed by pharmacy. discussion with Charlotte MENDEZ determined we would hold scheduled meds d/t pt being off of them for a month. pending [facility] consult.
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
[2022-12-14 13:34] VITALS: BP 121/81; PULSE 88; RESP 16; TEMP 36.9; O2SAT 98
--- NOTE | 2022-12-14 13:35 | PC.NURSE ---
alert, oriented, calm, coop. VSS. no c/o pain. ate lunch well. watching TV. no respir. distress. safety measures continue
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
[2022-12-14] MEDS: buPROPion HCl XL 150 MG TAB.ER.24H PO (15:09)
[2022-12-14] MEDS: Cariprazine HCl 1.5 MG CAPSULE PO (15:09)
--- NOTE | 2022-12-14 15:29 | PC.NURSE ---
report given to POD nurse.
--- NOTE | 2022-12-14 19:58 | PC.NURSE ---
assumed care of patient at 1900 pt resting comfortably on stretcher in no apparent distress. will ctm
[2022-12-14 20:30] VITALS: BP 114/79; PULSE 86; RESP 18; TEMP 36.3; O2SAT 96
[2022-12-15 04:27] VITALS: BP 114/82; PULSE 84; RESP 17; TEMP 36.4; O2SAT 98
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
[2022-12-15] MEDS: buPROPion HCl XL 150 MG TAB.ER.24H PO (10:20)
[2022-12-15] MEDS: Cariprazine HCl 1.5 MG CAPSULE PO (10:20)
--- NOTE | 2022-12-15 12:19 | MHC.CARE ---
Elder protective services in to see Pt.
[2022-12-15 17:07] LABS: COVID-19 Test Negative (Negative)
--- NOTE | 2022-12-15 19:56 | PC.NURSE ---
pt transfered to room 326-1 with nurse and security
[2022-12-15 20:15] VITALS: BP 143/76; PULSE 88; RESP 16; TEMP 36.2; O2SAT 97
[2022-12-15 21:22] VITALS: BMI 24.7
--- NOTE | 2022-12-15 21:39 | PC.ADMIT ---
Marjorie was admitted to M3 from [facility] ED on a CV at 20:00 on 12/15/22 for the treatment of depression. Sharps check was completed by staff. She is alert and oriented x4, but slow to respond to questions at times. She denies current suicidal and homicidal thoughts and intent. She denies auditory and visual hallucinations. She was pleasant and cooperative with admission process. She reports stopping her medications approximately one month ago and states her depression has gotten worse since stopping medications. She stated I've been on a low for a while now . She reported recent hospitalization to [facility] S[facility] in September and stated I thought I'd be able to stay out of here . She reports poor sleep and appetite, and states that she has been laying in bed for at least a month. She states she has not been showering or caring for herself. UTOX was negative and BAL was <10. Patient was placed on 15 minute checks for safety.
[2022-12-16 08:00] VITALS: BP 105/70; PULSE 83; RESP 16; TEMP 36.4; O2SAT 93
[2022-12-16] MEDS: buPROPion HCl XL 150 MG TAB.ER.24H PO (08:37)
[2022-12-16 09:18] LABS: Estimated Average Glucose 103 mg/dL; Hemoglobin A1c % 5.2 %
[2022-12-16 09:55] LABS: Alanine Aminotransferase 13 U/L (0-31); Albumin Level 3.9 g/dL (3.5-5.0); Alkaline Phosphatase 86 U/L (39-117); Anion Gap 13 (12-20); Aspartate Amino Transferase 19 U/L (5-31); Bilirubin Total 0.7 mg/dL (0.0-1.0); Blood Urea Nitrogen 17 mg/dL (9-16); Calcium 9.5 mg/dL (8.4-10.2); Carbon Dioxide 25 mmol/L (22-29); Chloride 104 mmol/L (96-108); Cholesterol 180 mg/dL; Creatinine Clr Calc Pharmacy 47.5; Estimated Glomerular Filt Rate 55; Glucose Fasting 97 mg/dL (60-99); HDL Cholesterol 46 mg/dL; LDL Cholesterol Calculated 107 mg/dl; Potassium 4.1 mmol/L (3.3-5.1); Sodium 138 mmol/L (135-145); Total Protein 7.1 g/dL (6.5-8.0); Triglycerides 137 mg/dL
[2022-12-16 10:15] LABS: Free T4 (Free Thyroxine) 1.02 ng/dL (0.71-1.85); Thyroid Stimulating Hormone 4.85 uIU/mL (0.32-4.0)
[2022-12-16 10:19] LABS: Folate 9.5 ng/mL (> or = 4.0); Vitamin B12 425 pg/mL (200-900)
[2022-12-16] MEDS: Cariprazine HCl 1.5 MG CAPSULE PO (12:50)
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
[2022-12-16 19:55] VITALS: BP 117/74; PULSE 86; RESP 18; TEMP 36.6; O2SAT 98
[2022-12-17 08:31] VITALS: BP 116/70; PULSE 89; RESP 14; O2SAT 97
[2022-12-17] MEDS: Cariprazine HCl 3 MG CAPSULE PO (09:08)
[2022-12-17] MEDS: buPROPion HCl XL 300 MG TAB.ER.24H PO (09:08)
--- NOTE | 2022-12-17 16:38 | HO.PSYCHPN ---
Subjective Subjective Date of Service: 12/17/22 Reason For Visit: depression Interim History: calm, cooperative. still feeling depressed. willing to increase vraylar to 4.5 mg tomorrow morning. paucity of thought, delay. Mental Status Exam Mental Status Exam Narrative: disheveled, dressed in street clothes, cooperative, mild PMR. speech nml rate, decr amount, nml loudness, flattened tone, incr latency. thoughts linear and generally logical, paucity of thoguht. affect constricted, minimally flexible. mood down. no SI/SIBI/HI/AVH expressed. Diagnostics Vital Signs (24Hr): Vital Signs - 24 hr 12/16/22 19:55 12/17/22 08:31 Temperature 97.8 F Pulse Rate 86 89 Respiratory Rate 18 14 Blood Pressure 117/74 116/70 Pulse Oximetry 98 97 Oxygen Delivery Method Room Air Room Air BMI result Body Mass Index 24.7 Labs 12/13/22 18:14 12/16/22 08:19 Labs: Laboratory Results - last 48 hr 12/15/22 12/16/22 12/16/22 16:23 08:19 08:19 Sodium 138 Potassium 4.1 Chloride 104 Carbon Dioxide 25 Anion Gap 13 BUN 17 H Creatinine 1.00 Estim Creat Clear Calc 47.5 Estimated GFR 55 Fasting Glucose 97 Estimat Average Glucose 103 Hemoglobin A1c % 5.2 Calcium 9.5 Total Bilirubin 0.7 AST 19 ALT 13 Alkaline Phosphatase 86 Total Protein 7.1 Albumin 3.9 Triglycerides 137 Cholesterol 180 LDL Cholesterol, Calc 107 HDL Cholesterol 46 Vitamin B12 Folate TSH 4.85 H Free T4 1.02 COVID-19 ([facility]) Negative COVID-19 Clin Com See Note 12/16/22 08:19 Sodium Potassium Chloride Carbon Dioxide Anion Gap BUN Creatinine Estim Creat Clear Calc Estimated GFR Fasting Glucose Estimat Average Glucose Hemoglobin A1c % Calcium Total Bilirubin AST ALT Alkaline Phosphatase Total Protein Albumin Triglycerides Cholesterol LDL Cholesterol, Calc HDL Cholesterol Vitamin B12 425 Folate 9.5 TSH Free T4 COVID-19 ([facility]) COVID-19 Clin Com Imaging Radiology Impressions: ITS Impressions Head CT 12/13/22 19:23 IMPRESSION: No evidence of acute intracranial hemorrhage or edematous territorial infarction. Medications Medications Current Medications Acetaminophen (Acetaminophen 325 Mg Tablet) 650 mg PO Q6H PRN PRN Reason: Headache/Pain Mild Scale (1-3) Al Hydroxide/Mg Hydroxide (Magnesium Hydrox/Alum Hydrox 30 Ml Oral.Susp) 30 ml PO Q6H PRN PRN Reason: Heartburn/Nausea Bupropion HCl (Bupropion Hcl Xl 300 Mg Tab.Er.24h) 300 mg PO DAILY [facility] Last Admin: 12/17/22 09:08 Dose: 300 mg Cariprazine (Cariprazine Hcl 1.5 Mg Capsule) 4.5 mg PO DAILY [facility] Cefuroxime Axetil (Cefuroxime Axetil 250 Mg Tablet) 250 mg PO BID [facility] Stop: 12/21/22 23:59 Last Admin: 12/17/22 09:08 Dose: 250 mg Hydroxyzine HCl (Hydroxyzine Hcl 25 Mg Tablet) 25 mg PO Q6H PRN PRN Reason: Anxiety Magnesium Hydroxide (Milk Of Magnesia 30 Ml Oral.Susp) 30 ml PO DAILY PRN PRN Reason: Constipation Trazodone HCl (Trazodone Hcl 50 Mg Tablet) 50 mg PO BEDTIME MRX1 PRN PRN Reason: Insomnia Allergies Allergies Allergy/AdvReac Type Severity Reaction Status Date / Time No Known Allergies Allergy Verified 12/13/22 17:46 Assessment & Plan Assessment & Plan (1) Bipolar disorder, most recent episode depressed: Status: Acute Code(s): F31.30 - Bipolar disorder, current episode depressed, mild or moderate severity, unspecified (2) Urinary tract infection: Status: Acute Code(s): N39.0 - Urinary tract infection, site not specified Plan 12/16: restart prior regimen. titrate wellbutrin to 300 mg daily and vraylar to 4.5 mg daily. monitor for improvement, T/C addition of mood stabilizer, as pt c/o mood swings even with previous regimen. antibx for UTI. 12/17: increase vraylar to 4.5 mg daily as of tomorrow. otherwise continue current mgmt. depressed. Reason for continued inpatient stay Substantial Risk for: inability to function and rapid decompensation Time Spent With Patient Time: Total time managing care of this patient today __25__ minutes.
[2022-12-17 21:23] VITALS: BP 127/62; PULSE 76; TEMP 36.3; O2SAT 97
[2022-12-18 08:15] VITALS: BP 123/67; PULSE 91; RESP 18; TEMP 36.6; O2SAT 97
[2022-12-18] MEDS: Acetaminophen 325 MG TABLET 650 MG PO (08:56)
[2022-12-18] MEDS: buPROPion HCl XL 300 MG TAB.ER.24H PO (08:57)
[2022-12-18] MEDS: Cariprazine HCl 1.5 MG CAPSULE 4.5 MG PO (08:57)
--- NOTE | 2022-12-18 15:54 | P.PNPSI_ITS ---
Subjective Subjective Date of Service: 12/18/22 Reason For Visit: depression Interim History: up at 0300 feeling really good. feeling less good now. concentration slightly better than at admission. amenable to continue current regimen, which is what she was DCde from [facility] on, and to discuss mood stabilizer prior to D/C. per staff, eating, sleeping. anx/dep 4. feeling not myself. slept 2230- 0330, then up until 0500, then back to sleep. Mental Status Exam Mental Status Exam Narrative: disheveled, dressed in street clothes, cooperative, mild PMR. speech nml rate, decr amount, nml loudness, flattened tone, incr latency. thoughts linear and generally logical, paucity of thoguht. affect constricted, minimally flexible. no SI/SIBI/HI/AVH expressed. Diagnostics Vital Signs (24Hr): Vital Signs - 24 hr 12/17/22 21:23 12/18/22 08:15 Temperature 97.3 F 97.8 F Pulse Rate 76 91 Respiratory Rate 18 Blood Pressure 127/62 123/67 Pulse Oximetry 97 97 Oxygen Delivery Method Room Air Room Air BMI result Body Mass Index 24.7 Labs 12/13/22 18:14 12/16/22 08:19 Imaging Radiology Impressions: ITS Impressions Head CT 12/13/22 19:23 IMPRESSION: No evidence of acute intracranial hemorrhage or edematous territorial infarction. Medications Medications Current Medications Acetaminophen (Acetaminophen 325 Mg Tablet) 650 mg PO Q6H PRN PRN Reason: Headache/Pain Mild Scale (1-3) Last Admin: 12/18/22 08:56 Dose: 650 mg Al Hydroxide/Mg Hydroxide (Magnesium Hydrox/Alum Hydrox 30 Ml Oral.Susp) 30 ml PO Q6H PRN PRN Reason: Heartburn/Nausea Bupropion HCl (Bupropion Hcl Xl 300 Mg Tab.Er.24h) 300 mg PO DAILY [facility] Last Admin: 12/18/22 08:57 Dose: 300 mg Cariprazine (Cariprazine Hcl 1.5 Mg Capsule) 4.5 mg PO DAILY [facility] Last Admin: 12/18/22 08:57 Dose: 4.5 mg Cefuroxime Axetil (Cefuroxime Axetil 250 Mg Tablet) 250 mg PO BID [facility] Stop: 12/21/22 23:59 Last Admin: 12/18/22 08:58 Dose: 250 mg Hydroxyzine HCl (Hydroxyzine Hcl 25 Mg Tablet) 25 mg PO Q6H PRN PRN Reason: Anxiety Magnesium Hydroxide (Milk Of Magnesia 30 Ml Oral.Susp) 30 ml PO DAILY PRN PRN Reason: Constipation Trazodone HCl (Trazodone Hcl 50 Mg Tablet) 50 mg PO BEDTIME MRX1 PRN PRN Reason: Insomnia Allergies Allergies Allergy/AdvReac Type Severity Reaction Status Date / Time No Known Allergies Allergy Verified 12/13/22 17:46 Assessment & Plan Assessment & Plan (1) Bipolar disorder, most recent episode depressed: Status: Acute Code(s): F31.30 - Bipolar disorder, current episode depressed, mild or moderate severity, unspecified (2) Urinary tract infection: Status: Acute Code(s): N39.0 - Urinary tract infection, site not specified Plan 12/16: restart prior regimen. titrate wellbutrin to 300 mg daily and vraylar to 4.5 mg daily. monitor for improvement, T/C addition of mood stabilizer, as pt c/o mood swings even with previous regimen. antibx for UTI. 12/17: increase vraylar to 4.5 mg daily as of tomorrow. otherwise continue current mgmt. depressed. 12/18: asof today, pt is back on regimen on which she was discharged from [facility]. give some days for improvement and stabilization, then T/C mood stabilizer. Reason for continued inpatient stay Substantial Risk for: harm to self, inability to function and rapid decompensation Time Spent With Patient Time: Total time managing care of this patient today _25___ minutes.
[2022-12-18 18:00] VITALS: BP 140/71; PULSE 83; RESP 16; TEMP 36.6; O2SAT 100
[2022-12-19 08:00] VITALS: BP 124/83; PULSE 101; RESP 18; TEMP 36.6; O2SAT 98
[2022-12-19] MEDS: Cariprazine HCl 1.5 MG CAPSULE 4.5 MG PO (08:42)
[2022-12-19] MEDS: buPROPion HCl XL 300 MG TAB.ER.24H PO (08:42)
--- NOTE | 2022-12-19 13:40 | PC.NURSE ---
Pt was given the [place] Cognitive Assessment (MOCA). Pt scored a 17/30, indicating a moderate cognitive impairment.
--- NOTE | 2022-12-19 14:26 | HO.PSYCHPN ---
Subjective Subjective Date of Service: 12/19/22 Reason For Visit: depression Interim History: reports she did not sleep well and was up late this morning. she couldn't fall asleep bcse she was thinking too much. unable to say about what, just keeping quiet when MD asks a couple of times. states she is feeling a little bit down. per staff, active and appropriate. calm, pleasant. appeared anxious. c/o feeling down. feeling less focused. conflicted re taking meds. slept well. attended 1 group yesterday. Mental Status Exam Mental Status Exam Narrative: disheveled, dressed in street clothes, cooperative, mild PMR. speech nml rate, decr amount, nml loudness, flattened tone, incr latency. thoughts linear and generally logical, paucity of thought. affect constricted, minimally flexible. no SI/SIBI/HI/AVH expressed. Diagnostics Vital Signs (24Hr): Vital Signs - 24 hr 12/18/22 18:00 12/19/22 08:00 Temperature 97.8 F 97.9 F Pulse Rate 83 101 H Respiratory Rate 16 18 Blood Pressure 140/71 H 124/83 Pulse Oximetry 100 98 Oxygen Delivery Method Room Air Room Air BMI result Body Mass Index 24.7 Labs 12/13/22 18:14 12/16/22 08:19 Imaging Radiology Impressions: ITS Impressions Head CT 12/13/22 19:23 IMPRESSION: No evidence of acute intracranial hemorrhage or edematous territorial infarction. Medications Medications Current Medications Acetaminophen (Acetaminophen 325 Mg Tablet) 650 mg PO Q6H PRN PRN Reason: Headache/Pain Mild Scale (1-3) Last Admin: 12/18/22 08:56 Dose: 650 mg Al Hydroxide/Mg Hydroxide (Magnesium Hydrox/Alum Hydrox 30 Ml Oral.Susp) 30 ml PO Q6H PRN PRN Reason: Heartburn/Nausea Bupropion HCl (Bupropion Hcl Xl 300 Mg Tab.Er.24h) 300 mg PO DAILY [facility] Last Admin: 12/19/22 08:42 Dose: 300 mg Cariprazine (Cariprazine Hcl 1.5 Mg Capsule) 4.5 mg PO DAILY [facility] Last Admin: 12/19/22 08:42 Dose: 4.5 mg Cefuroxime Axetil (Cefuroxime Axetil 250 Mg Tablet) 250 mg PO BID [facility] Stop: 12/21/22 23:59 Last Admin: 12/19/22 08:43 Dose: 250 mg Hydroxyzine HCl (Hydroxyzine Hcl 25 Mg Tablet) 25 mg PO Q6H PRN PRN Reason: Anxiety Magnesium Hydroxide (Milk Of Magnesia 30 Ml Oral.Susp) 30 ml PO DAILY PRN PRN Reason: Constipation Trazodone HCl (Trazodone Hcl 50 Mg Tablet) 50 mg PO BEDTIME MRX1 PRN PRN Reason: Insomnia Allergies Allergies Allergy/AdvReac Type Severity Reaction Status Date / Time No Known Allergies Allergy Verified 12/13/22 17:46 Assessment & Plan Assessment & Plan (1) Bipolar disorder, most recent episode depressed: Status: Acute Code(s): F31.30 - Bipolar disorder, current episode depressed, mild or moderate severity, unspecified (2) Urinary tract infection: Status: Acute Code(s): N39.0 - Urinary tract infection, site not specified Plan 12/16: restart prior regimen. titrate wellbutrin to 300 mg daily and vraylar to 4.5 mg daily. monitor for improvement, T/C addition of mood stabilizer, as pt c/o mood swings even with previous regimen. antibx for UTI. 12/17: increase vraylar to 4.5 mg daily as of tomorrow. otherwise continue current mgmt. depressed. 12/18: as of today, pt is back on regimen on which she was discharged from [facility]. give some days for improvement and stabilization, then T/C mood stabilizer. 12/19: [facility] 17 today. continue current mgmt. Reason for continued inpatient stay Substantial Risk for: inability to function and rapid decompensation Time Spent With Patient Time: Total time managing care of this patient today __25__ minutes.
[2022-12-19 20:45] VITALS: BP 121/76; PULSE 82; RESP 16; TEMP 36.3; O2SAT 96
[2022-12-20] MEDS: hydrOXYzine HCL 25 MG TABLET PO ×2 (00:17→21:37)
[2022-12-20] MEDS: Acetaminophen 325 MG TABLET 650 MG PO ×2 (01:35→20:35)
[2022-12-20 08:24] VITALS: BP 120/58; PULSE 96; RESP 16; TEMP 37; O2SAT 100
[2022-12-20] MEDS: Cariprazine HCl 1.5 MG CAPSULE 4.5 MG PO (08:56)
[2022-12-20] MEDS: buPROPion HCl XL 300 MG TAB.ER.24H PO (08:56)
--- NOTE | 2022-12-20 13:06 | P.PNPSI_ITS ---
Subjective Subjective Date of Service: 12/20/22 Reason For Visit: depression Interim History: hyperverbal, hyper-intense affect, mood elevated. discuss mg, pt declines lithium but agrees to VPA Rx. per staff, didn't sleep to speak of last night. starting around 1130 was hyperverbal . 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 Mental Status Exam Mental Status Exam Narrative: disheveled, dressed in street clothes, cooperative, no PMA/PMR. speech incr rate, incr amount, nml loudness, flattened tone, decr latency. thoughts linear and variably logical. affect full range, hyper-intense, non-labile. no SI/SIBI/HI/AVH expressed. Diagnostics Vital Signs (24Hr): Vital Signs - 24 hr 12/19/22 20:45 12/20/22 08:24 Temperature 97.4 F 98.6 F Pulse Rate 82 96 Respiratory Rate 16 16 Blood Pressure 121/76 120/58 L Pulse Oximetry 96 100 Oxygen Delivery Method Room Air Room Air BMI result Body Mass Index 24.7 Labs 12/13/22 18:14 12/16/22 08:19 Imaging Radiology Impressions: ITS Impressions Head CT 12/13/22 19:23 IMPRESSION: No evidence of acute intracranial hemorrhage or edematous territorial infarction. Medications Medications Current Medications Acetaminophen (Acetaminophen 325 Mg Tablet) 650 mg PO Q6H PRN PRN Reason: Headache/Pain Mild Scale (1-3) Last Admin: 12/20/22 01:35 Dose: 650 mg Al Hydroxide/Mg Hydroxide (Magnesium Hydrox/Alum Hydrox 30 Ml Oral.Susp) 30 ml PO Q6H PRN PRN Reason: Heartburn/Nausea Bupropion HCl (Bupropion Hcl Xl 300 Mg Tab.Er.24h) 300 mg PO DAILY [facility] Last Admin: 12/20/22 08:56 Dose: 300 mg Cariprazine (Cariprazine Hcl 1.5 Mg Capsule) 4.5 mg PO DAILY [facility] Last Admin: 12/20/22 08:56 Dose: 4.5 mg Cefuroxime Axetil (Cefuroxime Axetil 250 Mg Tablet) 250 mg PO BID [facility] Stop: 12/21/22 23:59 Last Admin: 12/20/22 08:56 Dose: 250 mg Divalproex Sodium (Divalproex Sodium Er 500 Mg Tab.Er.24h) 1,000 mg PO BEDTIME [facility] Hydroxyzine HCl (Hydroxyzine Hcl 25 Mg Tablet) 25 mg PO Q6H PRN PRN Reason: Anxiety Last Admin: 12/20/22 00:17 Dose: 25 mg Magnesium Hydroxide (Milk Of Magnesia 30 Ml Oral.Susp) 30 ml PO DAILY PRN PRN Reason: Constipation Trazodone HCl (Trazodone Hcl 50 Mg Tablet) 50 mg PO BEDTIME MRX1 PRN PRN Reason: Insomnia Allergies Allergies Allergy/AdvReac Type Severity Reaction Status Date / Time No Known Allergies Allergy Verified 12/13/22 17:46 Assessment & Plan Assessment & Plan (1) Bipolar disorder, most recent episode depressed: Status: Acute Code(s): F31.30 - Bipolar disorder, current episode depressed, mild or moderate severity, unspecified (2) Urinary tract infection: Status: Acute Code(s): N39.0 - Urinary tract infection, site not specified Plan 12/16: restart prior regimen. titrate wellbutrin to 300 mg daily and vraylar to 4.5 mg daily. monitor for improvement, T/C addition of mood stabilizer, as pt c/o mood swings even with previous regimen. antibx for UTI. 12/17: increase vraylar to 4.5 mg daily as of tomorrow. otherwise continue current mgmt. depressed. 12/18: as of today, pt is back on regimen on which she was discharged from [facility]. give some days for improvement and stabilization, then T/C mood stabilizer. 12/19: [facility] 17 today. continue current mgmt. 12/20: appears to have flipped into mg/hypomania overnight. agreeable to start VPA 1000 mg QHS as of tonight. hyperverbal, very busy with planning via telephone calls, hyper-intense and posisitve affect. Reason for continued inpatient stay Substantial Risk for: inability to function and rapid decompensation Time Spent With Patient Time: Total time managing care of this patient today ____ minutes.
[2022-12-20] MEDS: Divalproex Sodium ER 500 MG TAB.ER.24H 1000 MG PO (20:35)
[2022-12-20 20:50] VITALS: BP 130/86; PULSE 82; RESP 18; TEMP 36.3; O2SAT 99
[2022-12-21 06:00] VITALS: BP 113/74; PULSE 85; RESP 16; TEMP 36.8; O2SAT 99
[2022-12-21] MEDS: buPROPion HCl XL 300 MG TAB.ER.24H PO (08:58)
[2022-12-21] MEDS: Cariprazine HCl 1.5 MG CAPSULE 4.5 MG PO (08:58)
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
[2022-12-21 19:55] VITALS: BP 138/77; PULSE 94; RESP 18; TEMP 36.6; O2SAT 100
[2022-12-21] MEDS: Acetaminophen 325 MG TABLET 650 MG PO (20:43)
[2022-12-21] MEDS: Melatonin 3 MG TABLET PO (20:43)
[2022-12-21] MEDS: Divalproex Sodium ER 500 MG TAB.ER.24H 1000 MG PO (20:44)
[2022-12-22] MEDS: hydrOXYzine HCL 25 MG TABLET PO ×2 (04:30→21:07)
[2022-12-22 08:10] VITALS: BP 135/81; PULSE 78; RESP 16; TEMP 36.6; O2SAT 95
[2022-12-22] MEDS: Cariprazine HCl 1.5 MG CAPSULE 4.5 MG PO (08:47)
[2022-12-22] MEDS: buPROPion HCl XL 300 MG TAB.ER.24H PO (08:48)
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
--- NOTE | 2022-12-22 14:38 | PC.NURSE ---
Per patient, my hurt my right wrist prior to discharge and I need to have an xray. Right wrist slightly swollen with no redness. Patient reported that she has pain when she moves it at times, but is able to use her right hand. Patient declined ice pack or Tylenol for pain. Per patient, I'm fine now. Dr Valles aware and xray ordered and pending.
[2022-12-22] MEDS: Acetaminophen 325 MG TABLET 650 MG PO (19:53)
[2022-12-22 19:55] VITALS: BP 123/75; PULSE 78; RESP 18; TEMP 36.6; O2SAT 98
[2022-12-22] MEDS: traZODone HCL 50 MG TABLET PO (21:07)
[2022-12-22] MEDS: Divalproex Sodium ER 500 MG TAB.ER.24H 1000 MG PO (21:07)
[2022-12-22] MEDS: Melatonin 3 MG TABLET PO (21:07)
--- NOTE | 2022-12-23 | ECG_ITS ---
Test Reason : tachy Blood Pressure : / mmHG Vent. Rate : 088 BPM Atrial Rate : 088 BPM P-R Int : 160 ms QRS Dur : 102 ms QT Int : 382 ms P-R-T Axes : 069 -12 047 degrees QTc Int : 462 ms Normal sinus rhythm Incomplete right bundle branch block Borderline ECG When compared with ECG of 13-DEC-2022 18:07, No significant change was found Referred By: Noni Louis Electronically Signed By:JONO HARTMAN
[2022-12-23 08:46] VITALS: BP 123/69; PULSE 132; RESP 18; TEMP 36.5; O2SAT 99
[2022-12-23] MEDS: buPROPion HCl XL 300 MG TAB.ER.24H PO (08:47)
[2022-12-23] MEDS: Cariprazine HCl 1.5 MG CAPSULE 4.5 MG PO (08:47)
--- NOTE | 2022-12-23 09:22 | P.PNPSI_ITS ---
Subjective Subjective Date of Service: 12/23/22 Reason For Visit: depression Subjective Notes: Conditional Voluntary Interim History: Pt reports she is doing fine. She reports sleeping and eating well. She asks if she can be discharged by end of this week. She denies SI/HI. She has been visible on the unit. Her HR was elevated this morning 132 (BP 123/69, RR 18, afebrile)- rechecking now. She denies palpitation or chest pain. No epigastric discomfort or any other physical pain. Medication Compliance: Yes Review of Systems Constitutional: Reports no additional constitutional complaints, Denies chills, Denies fever(s) and Denies night sweats Eyes: Reports no additional eye complaints, Denies blurry vision, Denies change in vision, Denies diplopia, Denies eye discharge, Denies loss of vision and Denies eye pain Denies dizziness Cardiovascular: Reports no additional cardiovascular complaints, Denies chest pain, Denies lightheadedness, Denies Loss of Consciousness and Denies dyspnea Respiratory: Reports no additional respiratory complaints and Denies dyspnea Gastrointestinal: Reports no additional gastrointestinal complaints, Denies abdominal pain, Denies melena, Denies hematochezia, Denies change in bowel habits and Denies change in stool character Musculoskeletal: Reports no additional musculoskeletal complaints, Denies numbness and Denies tingling Denies dizziness, Denies loss of vision, Denies numbness and Denies tingling Psychiatric: Reports no additional psychiatric complaints, Reports depression, Denies homicidal ideation and Denies suicidal ideation Endocrine: Reports no additional endocrine complaints Hematologic/Lymphatic: Reports no additional hematologic/lymphatic complaints Allergic/Immunologic: Reports no additional allergic/immunologic complaints Mental Status Exam Mental Status Exam Narrative: better hygiene, dressed in street clothes, cooperative, no PMA/PMR. speech incr rate, nml amount, nml loudness, nml tone, decr latency. thoughts linear and logical. affect full range, hyper-intense, non-labile. no SI/SIBI/HI/AVH exp ressed. Diagnostics Vital Signs (24Hr): Vital Signs - 24 hr 12/22/22 19:55 12/23/22 08:46 Temperature 97.8 F 97.7 F Pulse Rate 78 132 H Respiratory Rate 18 18 Blood Pressure 123/75 123/69 Pulse Oximetry 98 99 Oxygen Delivery Method Room Air Room Air BMI result Body Mass Index 24.7 Labs 12/13/22 18:14 12/16/22 08:19 Imaging Radiology Impressions: ITS Impressions Head CT 12/13/22 19:23 IMPRESSION: No evidence of acute intracranial hemorrhage or edematous territorial infarction. Wrist X-Ray 12/22/22 15:00 IMPRESSION: Question nondisplaced ulnar styloid fracture. Findings will be communicated by the [place] work flow med care manager Medications Medications Current Medications Acetaminophen (Acetaminophen 325 Mg Tablet) 650 mg PO Q6H PRN PRN Reason: Headache/Pain Mild Scale (1-3) Last Admin: 12/22/22 19:53 Dose: 650 mg Al Hydroxide/Mg Hydroxide (Magnesium Hydrox/Alum Hydrox 30 Ml Oral.Susp) 30 ml PO Q6H PRN PRN Reason: Heartburn/Nausea Bupropion HCl (Bupropion Hcl Xl 300 Mg Tab.Er.24h) 300 mg PO DAILY [facility] Last Admin: 12/23/22 08:47 Dose: 300 mg Cariprazine (Cariprazine Hcl 1.5 Mg Capsule) 4.5 mg PO DAILY [facility] Last Admin: 12/23/22 08:47 Dose: 4.5 mg Divalproex Sodium (Divalproex Sodium Er 500 Mg Tab.Er.24h) 1,000 mg PO BEDTIME [facility] Last Admin: 12/22/22 21:07 Dose: 1,000 mg Hydroxyzine HCl (Hydroxyzine Hcl 25 Mg Tablet) 25 mg PO Q6H PRN PRN Reason: Anxiety Last Admin: 12/22/22 21:07 Dose: 25 mg Magnesium Hydroxide (Milk Of Magnesia 30 Ml Oral.Susp) 30 ml PO DAILY PRN PRN Reason: Constipation Melatonin (Melatonin 3 Mg Tablet) 3 mg PO BEDTIME [facility] Last Admin: 12/22/22 21:07 Dose: 3 mg Trazodone HCl (Trazodone Hcl 50 Mg Tablet) 50 mg PO BEDTIME MRX1 PRN PRN Reason: Insomnia Last Admin: 12/22/22 21:07 Dose: 50 mg Allergies Allergies Allergy/AdvReac Type Severity Reaction Status Date / Time No Known Allergies Allergy Verified 12/13/22 17:46 Assessment & Plan Assessment & Plan (1) Bipolar disorder, most recent episode depressed: Status: Acute Code(s): F31.30 - Bipolar disorder, current episode depressed, mild or moderate severity, unspecified (2) Urinary tract infection: Status: Acute Code(s): N39.0 - Urinary tract infection, site not specified Plan 12/16: restart prior regimen. titrate wellbutrin to 300 mg daily and vraylar to 4.5 mg daily. monitor for improvement, T/C addition of mood stabilizer, as pt c/o mood swings even with previous regimen. antibx for UTI. 12/17: increase vraylar to 4.5 mg daily as of tomorrow. otherwise continue current mgmt. depressed. 12/18: as of today, pt is back on regimen on which she was discharged from [facility]. give some days for improvement and stabilization, then T/C mood stabilizer. 12/19: [facility] 17 today. continue current mgmt. 12/20: appears to have flipped into mg/hypomania overnight. agreeable to start VPA 1000 mg QHS as of tonight. hyperverbal, very busy with planning via telephone calls, hyper-intense and posisitve affect. 12/21: slept 6.5 hours last night, slower today and less grandiose. continue current mgmt. contact court tomorrow to request a continuance. 12/22: slept 6 hours, remains less manic than 12/20. continue current mgmt. contact court to request continuance. labs scheduled for evening. 12/23 less manic, improved sleep. No overt psychosis. rechecking HR, as it was elevated this AM. Pt denies chest pain, palpitations. Reason for continued inpatient stay Substantial Risk for: inability to function Time Spent With Patient Time: Total time managing care of this patient today ____ minutes.
[2022-12-23] MEDS: Acetaminophen 325 MG TABLET 650 MG PO ×2 (10:21→19:37)
[2022-12-23 13:44] VITALS: BP 124/78; PULSE 94; RESP 16; TEMP 36.6; O2SAT 94
[2022-12-23 19:43] VITALS: BP 131/82; PULSE 99; RESP 18; TEMP 37; O2SAT 99
[2022-12-23] MEDS: Divalproex Sodium ER 500 MG TAB.ER.24H 1000 MG PO (20:58)
[2022-12-23] MEDS: Melatonin 3 MG TABLET PO (21:00)
[2022-12-24] MEDS: Acetaminophen 325 MG TABLET 650 MG PO ×3 (06:40→20:57)
[2022-12-24] MEDS: Cariprazine HCl 1.5 MG CAPSULE 4.5 MG PO (07:59)
[2022-12-24] MEDS: buPROPion HCl XL 300 MG TAB.ER.24H PO (08:00)
[2022-12-24 08:02] VITALS: BP 139/80; PULSE 81; RESP 18; TEMP 36.6; O2SAT 98
--- NOTE | 2022-12-24 14:55 | P.PNPSI_ITS ---
Subjective Subjective Date of Service: 12/24/22 Reason For Visit: depression Interim History: pt remains with elevated mood and energy, perhaps hypomanic. xray read reviewed, probable non-displaced wrist Fx noetd. will check labs tomorrow, adjust accordingly. per staff, med and meal compliant. visible, social, bright. Mental Status Exam Mental Status Exam Narrative: better hygiene, dressed in street clothes, cooperative, no PMA/PMR. speech incr rate, nml amount, nml loudness, nml tone, decr latency. thoughts linear and logical. affect full range, hyper-intense, non-labile. no SI/SIBI/HI/AVH expressed. Diagnostics Vital Signs (24Hr): Vital Signs - 24 hr 12/23/22 19:43 12/24/22 08:02 Temperature 98.6 F 97.8 F Pulse Rate 99 81 Respiratory Rate 18 18 Blood Pressure 131/82 139/80 Pulse Oximetry 99 98 Oxygen Delivery Method Room Air Room Air BMI result Body Mass Index 24.7 Labs 12/13/22 18:14 12/16/22 08:19 Imaging Radiology Impressions: ITS Impressions Head CT 12/13/22 19:23 IMPRESSION: No evidence of acute intracranial hemorrhage or edematous territorial infarction. Wrist X-Ray 12/22/22 15:00 IMPRESSION: Question nondisplaced ulnar styloid fracture. Findings will be communicated by the [place] work flow edge brusher Medications Medications Current Medications Acetaminophen (Acetaminophen 325 Mg Tablet) 650 mg PO Q6H PRN PRN Reason: Headache/Pain Mild Scale (1-3) Last Admin: 12/24/22 14:24 Dose: 650 mg Al Hydroxide/Mg Hydroxide (Magnesium Hydrox/Alum Hydrox 30 Ml Oral.Susp) 30 ml PO Q6H PRN PRN Reason: Heartburn/Nausea Bupropion HCl (Bupropion Hcl Xl 300 Mg Tab.Er.24h) 300 mg PO DAILY [facility] Last Admin: 12/24/22 08:00 Dose: 300 mg Cariprazine (Cariprazine Hcl 1.5 Mg Capsule) 4.5 mg PO DAILY [facility] Last Admin: 12/24/22 07:59 Dose: 4.5 mg Divalproex Sodium (Divalproex Sodium Er 500 Mg Tab.Er.24h) 1,000 mg PO BEDTIME [facility] Last Admin: 12/23/22 20:58 Dose: 1,000 mg Hydroxyzine HCl (Hydroxyzine Hcl 25 Mg Tablet) 25 mg PO Q6H PRN PRN Reason: Anxiety Last Admin: 12/22/22 21:07 Dose: 25 mg Magnesium Hydroxide (Milk Of Magnesia 30 Ml Oral.Susp) 30 ml PO DAILY PRN PRN Reason: Constipation Melatonin (Melatonin 3 Mg Tablet) 3 mg PO BEDTIME [facility] Last Admin: 12/23/22 21:00 Dose: 3 mg Trazodone HCl (Trazodone Hcl 50 Mg Tablet) 50 mg PO BEDTIME MRX1 PRN PRN Reason: Insomnia Last Admin: 12/22/22 21:07 Dose: 50 mg Allergies Allergies Allergy/AdvReac Type Severity Reaction Status Date / Time No Known Allergies Allergy Verified 12/13/22 17:46 Assessment & Plan Assessment & Plan (1) Bipolar disorder, most recent episode depressed: Status: Acute Code(s): F31.30 - Bipolar disorder, current episode depressed, mild or moderate severity, unspecified (2) Urinary tract infection: Status: Acute Code(s): N39.0 - Urinary tract infection, site not specified Plan 12/16: restart prior regimen. titrate wellbutrin to 300 mg daily and vraylar to 4.5 mg daily. monitor for improvement, T/C addition of mood stabilizer, as pt c/o mood swings even with previous regimen. antibx for UTI. 12/17: increase vraylar to 4.5 mg daily as of tomorrow. otherwise continue current mgmt. depressed. 12/18: as of today, pt is back on regimen on which she was discharged from [facility]. give some days for improvement and stabilization, then T/C mood stabilizer. 12/19: MoCA 17 today. continue current mgmt. 12/20: appears to have flipped into mg/hypomania overnight. agreeable to start VPA 1000 mg QHS as of tonight. hyperverbal, very busy with planning via telephone calls, hyper-intense and posisitve affect. 12/21: slept 6.5 hours last night, slower today and less grandiose. continue current mgmt. contact court tomorrow to request a continuance. 12/22: slept 6 hours, remains less manic than 12/20. continue current mgmt. contact court to request continuance. labs scheduled for evening. 12/23: less manic, improved sleep. No overt psychosis. rechecking HR, as it was elevated this AM. Pt denies chest pain, palpitations. 12/24: remains hypomanic, adequate sleep. wrist xray likely Fx; ortho consulted re mgmt. check labs tomorrow. Reason for continued inpatient stay Substantial Risk for: inability to function and rapid decompensation Time Spent With Patient Time: Total time managing care of this patient today __25__ minutes.
[2022-12-24 20:50] VITALS: BP 136/73; PULSE 90; RESP 18; O2SAT 100
[2022-12-24] MEDS: hydrOXYzine HCL 25 MG TABLET PO (20:56)
[2022-12-24] MEDS: Divalproex Sodium ER 500 MG TAB.ER.24H 1000 MG PO (20:56)
[2022-12-25] MEDS: Acetaminophen 325 MG TABLET 650 MG PO ×2 (02:45→17:26)
[2022-12-25 08:00] VITALS: BP 125/66; PULSE 84; RESP 16; TEMP 37; O2SAT 98
[2022-12-25] MEDS: buPROPion HCl XL 300 MG TAB.ER.24H PO (08:40)
[2022-12-25] MEDS: Cariprazine HCl 1.5 MG CAPSULE 4.5 MG PO (08:40)
[2022-12-25 10:34] VITALS: BMI 26.4
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
--- NOTE | 2022-12-25 13:53 | P.PNPSI_ITS ---
Subjective Subjective Date of Service: 12/25/22 Reason For Visit: depression Interim History: calm, cooperative. hyperverbal, a bit euphoric. asking about court, when to discharge. broken sleep, attributing to pain. per staff, feeling great in every way. all goals have been met. not sleeping much. broken sleep. up several times in the night. up for good at 0530. Mental Status Exam Mental Status Exam Narrative: better hygiene, dressed in street clothes, cooperative, no PMA/PMR. speech incr rate, incr amount, nml loudness, nml tone, decr latency. thoughts linear and logical. affect full range, hyper-intense, non-labile. no SI/SIBI/HI/AVH expressed. Diagnostics Vital Signs (24Hr): Vital Signs - 24 hr 12/24/22 20:50 12/25/22 08:00 Temperature 98.6 F Pulse Rate 90 84 Respiratory Rate 18 16 Blood Pressure 136/73 125/66 Pulse Oximetry 100 98 Oxygen Delivery Method Room Air Room Air BMI result Body Mass Index 26.4 Labs 12/13/22 18:14 12/16/22 08:19 Imaging Radiology Impressions: ITS Impressions Head CT 12/13/22 19:23 IMPRESSION: No evidence of acute intracranial hemorrhage or edematous territorial infarction. Wrist X-Ray 12/22/22 15:00 IMPRESSION: Question nondisplaced ulnar styloid fracture. Findings will be communicated by the [place] work flow farm manager Medications Medications Current Medications Acetaminophen (Acetaminophen 325 Mg Tablet) 650 mg PO Q6H PRN PRN Reason: Headache/Pain Mild Scale (1-3) Last Admin: 12/25/22 02:45 Dose: 650 mg Al Hydroxide/Mg Hydroxide (Magnesium Hydrox/Alum Hydrox 30 Ml Oral.Susp) 30 ml PO Q6H PRN PRN Reason: Heartburn/Nausea Bupropion HCl (Bupropion Hcl Xl 300 Mg Tab.Er.24h) 300 mg PO DAILY [facility] Last Admin: 12/25/22 08:40 Dose: 300 mg Cariprazine (Cariprazine Hcl 1.5 Mg Capsule) 4.5 mg PO DAILY [facility] Last Admin: 12/25/22 08:40 Dose: 4.5 mg Divalproex Sodium (Divalproex Sodium Er 500 Mg Tab.Er.24h) 1,000 mg PO BEDTIME [facility] Last Admin: 12/24/22 20:56 Dose: 1,000 mg Hydroxyzine HCl (Hydroxyzine Hcl 25 Mg Tablet) 25 mg PO Q6H PRN PRN Reason: Anxiety Last Admin: 12/24/22 20:56 Dose: 25 mg Magnesium Hydroxide (Milk Of Magnesia 30 Ml Oral.Susp) 30 ml PO DAILY PRN PRN Reason: Constipation Melatonin (Melatonin 3 Mg Tablet) 3 mg PO BEDTIME [facility] Last Admin: 12/24/22 20:57 Dose: Not Given Trazodone HCl (Trazodone Hcl 50 Mg Tablet) 50 mg PO BEDTIME MRX1 PRN PRN Reason: Insomnia Last Admin: 12/22/22 21:07 Dose: 50 mg Allergies Allergies Allergy/AdvReac Type Severity Reaction Status Date / Time No Known Allergies Allergy Verified 12/13/22 17:46 Assessment & Plan Assessment & Plan (1) Fracture of right ulnar styloid: Status: Acute Code(s): S52.611A - Displaced fracture of right ulna styloid process, initial encounter for closed fracture Assessment and Plan: Assessment and plan: 1. Right ulnar styloid fracture Date of injury unknown, but likely the last 1-2 weeks I educated the patient about this condition I fitted her with a Velcro wrist splint which she said felt good, and supportive. I explained to the patient and her nurse that she was to wear the Velcro wrist splint for comfort. She may remove it if she wants to at any time, and should remove it periodically to maintain wrist range of motion. Activity modification, heavy or repetitive lifting. Weight limit of about 2 lb. She should follow-up with us in the orthopedic clinic once discharged from the hospital. (2) Bipolar disorder, most recent episode depressed: Status: Acute Code(s): F31.30 - Bipolar disorder, current episode depressed, mild or moderate severity, unspecified (3) Neurodegenerative cognitive impairment: Status: Acute Code(s): G31.9 - Degenerative disease of nervous system, unspecified Plan 12/16:? restart prior regimen.? titrate wellbutrin to 300 mg daily and vraylar to 4.5 mg daily.? monitor for improvement, T/C addition of mood stabilizer, as pt c/o mood swings even with previous regimen.? antibx for UTI. 8/16:? increase vraylar to 4.5 mg daily as of tomorrow.? otherwise continue current mgmt.? depressed. 12/18:? as of today, pt is back on regimen on which she was discharged from [facility].? give some days for improvement and stabilization, then T/C mood stabilizer. 12/19:? MoCA 17 today.? continue current mgmt. 12/20:? appears to have flipped into mg/hypomania overnight.? agreeable to start VPA 1000 mg QHS as of tonight.? hyperverbal, very busy with planning via telephone calls, hyper-intense and posisitve affect. 12/21:? slept 6.5 hours last night, slower today and less grandiose.? continue current mgmt.? contact court tomorrow to request a continuance. 12/22:? slept 6 hours, remains less manic than 12/20.? continue current mgmt.? contact court to request continuance.? labs scheduled for evening. 12/23:? less manic, improved sleep. No overt psychosis. rechecking HR, as it was elevated this AM. Pt denies chest pain, palpitations. 12/24:? remains hypomanic, adequate sleep.? wrist xray likely Fx; ortho consulted re mgmt.? check labs tomorrow. 12/25: appreciate ortho consult and recs. continue current mgmt, remains hypomanic. labs this evening. Reason for continued inpatient stay Substantial Risk for: inability to function and rapid decompensation Time Spent With Patient Time: Total time managing care of this patient today __25__ minutes.
[2022-12-25 20:38] LABS: MANUAL DIFF FLAG NO
[2022-12-25 20:42] LABS: Basophils Percent Auto 0.6 % (0-2); Eosinophils Absolute Auto 0.1 X10*3/uL (0.0-0.4); Eosinophils Percent Auto 1.4 % (0-4); Hemoglobin 11.8 g/dl (12.0-16.0); Imm Gran Abs Auto 0.04 X10*3/uL (0.00-0.03); Imm Gran Pct Auto 0.6 % (0.0-0.4); Lymphocytes Absolute Auto 2.3 X10*3/uL (1.2-4.9); Lymphocytes Percent Auto 31.8 % (20-40); Mean Corpuscular HGB Conc 31.1 g/dl (31.0-35.0); Mean Corpuscular Hemoglobin 28.2 pg (27.0-33.0); Mean Corpuscular Volume 90.9 fL (80.0-98.0); Mean Platelet Volume 9.2 fL (9.4-12.3); Monocytes Absolute Auto 0.6 X10*3/uL (0.1-1.2); Monocytes Percent Auto 7.6 % (2-11); Neutrophils Absolute Auto 4.2 x10*3/uL (2.0-8.3); Platelet Count 338 X10*3/uL (160-400); Red Blood Count 4.18 X10*6/uL (4.20-5.50); Red Cell Distribution Width 13.4 % (11.0-16.0); White Blood Count 7.2 X10*3/uL (4.8-10.8)
[2022-12-25 20:48] LABS: Ammonia 33 umol/L (13-55)
[2022-12-25 20:50] LABS: Valproate 49.5 mcg/mL (50.0-100.0)
[2022-12-25 20:53] LABS: Alanine Aminotransferase 12 U/L (0-31); Albumin Level 3.8 g/dL (3.5-5.0); Alkaline Phosphatase 76 U/L (39-117); Anion Gap 12 (12-20); Aspartate Amino Transferase 18 U/L (5-31); Bilirubin Direct < 0.2 mg/dL (0.0-0.5); Bilirubin Total 0.2 mg/dL (0.0-1.0); Blood Urea Nitrogen 28 mg/dL (9-16); Calcium 9.5 mg/dL (8.4-10.2); Carbon Dioxide 28 mmol/L (22-29); Chloride 105 mmol/L (96-108); Estimated Glomerular Filt Rate 55; Glucose Random 107 mg/dL (60-115); Potassium 4.7 mmol/L (3.3-5.1); Sodium 140 mmol/L (135-145); Total Protein 6.9 g/dL (6.5-8.0)
[2022-12-25 21:30] VITALS: BP 121/82; PULSE 94; RESP 18; O2SAT 98
[2022-12-25] MEDS: Divalproex Sodium ER 500 MG TAB.ER.24H 1000 MG PO (21:41)
[2022-12-25] MEDS: hydrOXYzine HCL 25 MG TABLET PO (21:41)
[2022-12-26] MEDS: Acetaminophen 325 MG TABLET 650 MG PO ×3 (01:04→20:48)
[2022-12-26 08:21] VITALS: BP 141/81; PULSE 82; RESP 17; TEMP 36.4; O2SAT 99
[2022-12-26] MEDS: Cariprazine HCl 1.5 MG CAPSULE 4.5 MG PO (08:50)
[2022-12-26] MEDS: buPROPion HCl XL 300 MG TAB.ER.24H PO (08:50)
--- NOTE | 2022-12-26 13:05 | HO.PSYCHPN ---
Subjective Subjective Date of Service: 12/26/22 Reason For Visit: depression Interim History: engaging, cooperative. review lab results - VPA 49.5. agrees to increase dosing to 1250 QHS. c/o left sided flank pain which has been consistently bothersome, asking for xray. per staff, very broken sleep. slept 10-1, then up every 2 hours. Mental Status Exam Mental Status Exam Narrative: adequate hygiene, dressed in street clothes, cooperative, no PMA/PMR. speech incr rate, incr amount, nml loudness, nml tone, decr latency. thoughts linear and logical. affect full range, hyper-intense, non-labile. no SI/SIBI/HI/AVH expressed. Diagnostics Vital Signs (24Hr): Vital Signs - 24 hr 12/25/22 21:30 12/26/22 08:21 Temperature 97.6 F Pulse Rate 94 82 Respiratory Rate 18 17 Blood Pressure 121/82 141/81 H Pulse Oximetry 98 99 Oxygen Delivery Method Room Air Room Air BMI result Body Mass Index 26.4 Labs 12/25/22 20:29 12/25/22 20:29 Labs: Laboratory Results - last 48 hr 12/25/22 12/25/22 12/25/22 20:29 20:29 20:29 WBC 7.2 RBC 4.18 L Hgb 11.8 L Hct 38.0 MCV 90.9 MCH 28.2 MCHC 31.1 RDW 13.4 Plt Count 338 MPV 9.2 L Immature Gran % (Auto) 0.6 H Neut % (Auto) 58.0 Lymph % (Auto) 31.8 [place] % (Auto) 7.6 Eos % (Auto) 1.4 Baso % (Auto) 0.6 Lymph # (Auto) 2.3 [place] # (Auto) 0.6 Eos # (Auto) 0.1 Baso # (Auto) 0.0 Abs Immat Gran (auto) 0.04 H Absolute Neuts (auto) 4.2 Absolute Nucleated RBC 0.000 Nucleated RBC % (auto) 0.0 Sodium 140 Potassium 4.7 Chloride 105 Carbon Dioxide 28 Anion Gap 12 BUN 28 H Creatinine 1.00 Estim Creat Clear Calc 49.0 Estimated GFR 55 Random Glucose 107 Calcium 9.5 Total Bilirubin 0.2 Direct Bilirubin < 0.2 AST 18 ALT 12 Alkaline Phosphatase 76 Ammonia 33 Total Protein 6.9 Albumin 3.8 Valproic Acid 12/25/22 20:29 WBC RBC Hgb Hct MCV MCH MCHC RDW Plt Count MPV Immature Gran % (Auto) Neut % (Auto) Lymph % (Auto) [place] % (Auto) Eos % (Auto) Baso % (Auto) Lymph # (Auto) [place] # (Auto) Eos # (Auto) Baso # (Auto) Abs Immat Gran (auto) Absolute Neuts (auto) Absolute Nucleated RBC Nucleated RBC % (auto) Sodium Potassium Chloride Carbon Dioxide Anion Gap BUN Creatinine Estim Creat Clear Calc Estimated GFR Random Glucose Calcium Total Bilirubin Direct Bilirubin AST ALT Alkaline Phosphatase Ammonia Total Protein Albumin Valproic Acid 49.5 L Imaging Radiology Impressions: ITS Impressions Head CT 12/13/22 19:23 IMPRESSION: No evidence of acute intracranial hemorrhage or edematous territorial infarction. Wrist X-Ray 12/22/22 15:00 IMPRESSION: Question nondisplaced ulnar styloid fracture. Findings will be communicated by the [place] work flow infantry unit leader Medications Medications Current Medications Acetaminophen (Acetaminophen 325 Mg Tablet) 650 mg PO Q6H PRN PRN Reason: Headache/Pain Mild Scale (1-3) Last Admin: 12/26/22 12:16 Dose: 650 mg Al Hydroxide/Mg Hydroxide (Magnesium Hydrox/Alum Hydrox 30 Ml Oral.Susp) 30 ml PO Q6H PRN PRN Reason: Heartburn/Nausea Bupropion HCl (Bupropion Hcl Xl 300 Mg Tab.Er.24h) 300 mg PO DAILY [facility] Last Admin: 12/26/22 08:50 Dose: 300 mg Cariprazine (Cariprazine Hcl 1.5 Mg Capsule) 4.5 mg PO DAILY [facility] Last Admin: 12/26/22 08:50 Dose: 4.5 mg Divalproex Sodium (Divalproex Sodium Er 500 Mg Tab.Er.24h) 1,000 mg PO BEDTIME [facility] Last Admin: 12/25/22 21:41 Dose: 1,000 mg Divalproex Sodium (Divalproex Sodium Er 250 Mg Tab.Er.24h) 250 mg PO BEDTIME [facility] Hydroxyzine HCl (Hydroxyzine Hcl 25 Mg Tablet) 25 mg PO Q6H PRN PRN Reason: Anxiety Last Admin: 12/25/22 21:41 Dose: 25 mg Magnesium Hydroxide (Milk Of Magnesia 30 Ml Oral.Susp) 30 ml PO DAILY PRN PRN Reason: Constipation Melatonin (Melatonin 3 Mg Tablet) 3 mg PO BEDTIME [facility] Last Admin: 12/25/22 21:41 Dose: Not Given Trazodone HCl (Trazodone Hcl 50 Mg Tablet) 50 mg PO BEDTIME MRX1 PRN PRN Reason: Insomnia Last Admin: 12/22/22 21:07 Dose: 50 mg Allergies Allergies Allergy/AdvReac Type Severity Reaction Status Date / Time No Known Allergies Allergy Verified 12/13/22 17:46 Assessment & Plan Assessment & Plan (1) Fracture of right ulnar styloid: Status: Acute Code(s): S52.611A - Displaced fracture of right ulna styloid process, initial encounter for closed fracture Assessment and Plan: Assessment and plan: 1. Right ulnar styloid fracture Date of injury unknown, but likely the last 1-2 weeks I educated the patient about this condition I fitted her with a Velcro wrist splint which she said felt good, and supportive. I explained to the patient and her nurse that she was to wear the Velcro wrist splint for comfort. She may remove it if she wants to at any time, and should remove it periodically to maintain wrist range of motion. Activity modification, heavy or repetitive lifting. Weight limit of about 2 lb. She should follow-up with us in the orthopedic clinic once discharged from the hospital. (2) Bipolar disorder, most recent episode depressed: Status: Acute Code(s): F31.30 - Bipolar disorder, current episode depressed, mild or moderate severity, unspecified (3) Neurodegenerative cognitive impairment: Status: Acute Code(s): G31.9 - Degenerative disease of nervous system, unspecified Plan 12/16:? restart prior regimen.? titrate wellbutrin to 300 mg daily and vraylar to 4.5 mg daily.? monitor for improvement, T/C addition of mood stabilizer, as pt c/o mood swings even with previous regimen.? antibx for UTI. 12/17:? increase vraylar to 4.5 mg daily as of tomorrow.? otherwise continue current mgmt.? depressed. 12/18:? as of today, pt is back on regimen on which she was discharged from [facility].? give some days for improvement and stabilization, then T/C mood stabilizer. 12/19:? MoCA 17 today.? continue current mgmt. 12/20:? appears to have flipped into mg/hypomania overnight.? agreeable to start VPA 1000 mg QHS as of tonight.? hyperverbal, very busy with planning via telephone calls, hyper-intense and posisitve affect. 12/21:? slept 6.5 hours last night, slower today and less grandiose.? continue current mgmt.? contact court tomorrow to request a continuance. 12/22:? slept 6 hours, remains less manic than 12/20.? continue current mgmt.? contact court to request continuance.? labs scheduled for evening. 12/23:? less manic, improved sleep. No overt psychosis. rechecking HR, as it was elevated this AM. Pt denies chest pain, palpitations. 12/24:? remains hypomanic, adequate sleep.? wrist xray likely Fx; ortho consulted re mgmt.? check labs tomorrow. 12/25: appreciate ortho consult and recs. continue current mgmt, remains hypomanic. labs this evening. 12/26: VPA level 49.5, LFTs WNL. minor anemia. BUN 28. increase VPA to 1250 QHS. c/o consistent left flank pain; pelvic/lumbar xray to be ordered. Reason for continued inpatient stay Substantial Risk for: inability to function and rapid decompensation Time Spent With Patient Time: Total time managing care of this patient today __25
[2022-12-26 20:30] VITALS: BP 132/79; PULSE 106; RESP 18; TEMP 36.6; O2SAT 99
[2022-12-26] MEDS: Divalproex Sodium ER 500 MG TAB.ER.24H 1000 MG PO (21:03)
[2022-12-26] MEDS: Melatonin 3 MG TABLET PO (21:03)
[2022-12-26] MEDS: Divalproex Sodium ER 250 MG TAB.ER.24H PO (21:03)
--- NOTE | 2022-12-27 00:10 | PC.NURSE ---
Marjorie took off wrist splint. Patient placed back on 15 minute safety checks.
[2022-12-27] MEDS: Acetaminophen 325 MG TABLET 650 MG PO ×3 (04:07→21:07)
[2022-12-27] MEDS: hydrOXYzine HCL 25 MG TABLET PO ×2 (04:07→20:59)
[2022-12-27 08:30] VITALS: BP 141/85; PULSE 84; RESP 18; TEMP 36.5; O2SAT 97
[2022-12-27] MEDS: Cariprazine HCl 1.5 MG CAPSULE 4.5 MG PO (08:35)
[2022-12-27] MEDS: buPROPion HCl XL 300 MG TAB.ER.24H PO (08:37)
--- NOTE | 2022-12-27 10:46 | P.PNPSI_ITS ---
Subjective Subjective Date of Service: 12/27/22 Reason For Visit: depression Interim History: Patient reports she is feeling more stable with her mood. Says she is tolerating her medications well. She is more engaged. She is cooperative. Tolerating increase dosing of Depakote to 1250 QHS. c/o left sided flank pain which has been consistently bothersome, asking for xray. Xray hip WNL. Staff ask that obs status change to q15 as she has been doing better and has no SI. Review of Systems Constitutional: Reports no additional constitutional complaints, Denies chills, Denies fever(s) and Denies night sweats Eyes: Reports no additional eye complaints, Denies blurry vision, Denies change in vision, Denies diplopia, Denies eye discharge, Denies loss of vision and Denies eye pain Denies dizziness Cardiovascular: Reports no additional cardiovascular complaints, Denies chest pain, Denies lightheadedness, Denies Loss of Consciousness and Denies dyspnea Respiratory: Reports no additional respiratory complaints and Denies dyspnea Gastrointestinal: Reports no additional gastrointestinal complaints, Denies abdominal pain, Denies melena, Denies hematochezia, Denies change in bowel habits and Denies change in stool character Musculoskeletal: Reports no additional musculoskeletal complaints, Denies numb ness and Denies tingling Denies dizziness, Denies loss of vision, Denies numbness and Denies tingling Psychiatric: Reports no additional psychiatric complaints, Reports depression, Denies homicidal ideation and Denies suicidal ideation Endocrine: Reports no additional endocrine complaints Hematologic/Lymphatic: Reports no additional hematologic/lymphatic complaints Allergic/Immunologic: Reports no additional allergic/immunologic complaints Mental Status Exam Mental Status Exam Narrative: adequate hygiene, dressed in street clothes, cooperative, no PMA/PMR. speech incr rate, incr amount, nml loudness, nml tone, decr latency. thoughts linear and logical. affect full range, hyper-intense, non-labile. no SI/SIBI/HI/AVH expressed. Patient Appearance: Appropriate Patient Orientation: Person and Situation Level of Consciousness: Awake and Appropriate Patient Behavior: Guarded and Passive Mood Description: Calm Affect Description: Constricted Patient Cognition Impaired: Yes Ability to Follow Directions: Good Speech Pattern: Clear Diagnostics Vital Signs (24Hr): Vital Signs - 24 hr 12/26/22 20:30 12/27/22 08:30 Temperature 98 F 97.7 F Pulse Rate 106 H 84 Respiratory Rate 18 18 Blood Pressure 132/79 141/85 H Pulse Oximetry 99 97 Oxygen Delivery Method Room Air Room Air BMI result Body Mass Index 26.4 Labs 12/25/22 20:29 12/25/22 20:29 Labs: Laboratory Results - last 48 hr 12/25/22 12/25/22 12/25/22 20:29 20:29 20:29 WBC 7.2 RBC 4.18 L Hgb 11.8 L Hct 38.0 MCV 90.9 MCH 28.2 MCHC 31.1 RDW 13.4 Plt Count 338 MPV 9.2 L Immature Gran % (Auto) 0.6 H Neut % (Auto) 58.0 Lymph % (Auto) 31.8 [place] % (Auto) 7.6 Eos % (Auto) 1.4 Baso % (Auto) 0.6 Lymph # (Auto) 2.3 [place] # (Auto) 0.6 Eos # (Auto) 0.1 Baso # (Auto) 0.0 Abs Immat Gran (auto) 0.04 H Absolute Neuts (auto) 4.2 Absolute Nucleated RBC 0.000 Nucleated RBC % (auto) 0.0 Sodium 140 Potassium 4.7 Chloride 105 Carbon Dioxide 28 Anion Gap 12 BUN 28 H Creatinine 1.00 Estim Creat Clear Calc 49.0 Estimated GFR 55 Random Glucose 107 Calcium 9.5 Total Bilirubin 0.2 Direct Bilirubin < 0.2 AST 18 ALT 12 Alkaline Phosphatase 76 Ammonia 33 Total Protein 6.9 Albumin 3.8 Valproic Acid 12/25/22 20:29 WBC RBC Hgb Hct MCV MCH MCHC RDW Plt Count MPV Immature Gran % (Auto) Neut % (Auto) Lymph % (Auto) [place] % (Auto) Eos % (Auto) Baso % (Auto) Lymph # (Auto) [place] # (Auto) Eos # (Auto) Baso # (Auto) Abs Immat Gran (auto) Absolute Neuts (auto) Absolute Nucleated RBC Nucleated RBC % (auto) Sodium Potassium Chloride Carbon Dioxide Anion Gap BUN Creatinine Estim Creat Clear Calc Estimated GFR Random Glucose Calcium Total Bilirubin Direct Bilirubin AST ALT Alkaline Phosphatase Ammonia Total Protein Albumin Valproic Acid 49.5 L Imaging Radiology Impressions: ITS Impressions Head CT 12/13/22 19:23 IMPRESSION: No evidence of acute intracranial hemorrhage or edematous territorial infarction. Wrist X-Ray 12/22/22 15:00 IMPRESSION: Question nondisplaced ulnar styloid fracture. Findings will be communicated by the [place] work flow statistician applied Hip/Pelvis X-Ray 12/26/22 13:50 IMPRESSION: No abnormality is seen in the hip. 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 Medications Medications Current Medications Acetaminophen (Acetaminophen 325 Mg Tablet) 650 mg PO Q6H PRN PRN Reason: Headache/Pain Mild Scale (1-3) Last Admin: 12/27/22 10:15 Dose: 650 mg Al Hydroxide/Mg Hydroxide (Magnesium Hydrox/Alum Hydrox 30 Ml Oral.Susp) 30 ml PO Q6H PRN PRN Reason: Heartburn/Nausea Bupropion HCl (Bupropion Hcl Xl 300 Mg Tab.Er.24h) 300 mg PO DAILY [facility] Last Admin: 12/27/22 08:37 Dose: 300 mg Cariprazine (Cariprazine Hcl 1.5 Mg Capsule) 4.5 mg PO DAILY [facility] Last Admin: 12/27/22 08:35 Dose: 4.5 mg Divalproex Sodium (Divalproex Sodium Er 500 Mg Tab.Er.24h) 1,000 mg PO BEDTIME [facility] Last Admin: 12/26/22 21:03 Dose: 1,000 mg Divalproex Sodium (Divalproex Sodium Er 250 Mg Tab.Er.24h) 250 mg PO BEDTIME [facility] Last Admin: 12/26/22 21:03 Dose: 250 mg Hydroxyzine HCl (Hydroxyzine Hcl 25 Mg Tablet) 25 mg PO Q6H PRN PRN Reason: Anxiety Last Admin: 12/27/22 04:07 Dose: 25 mg Magnesium Hydroxide (Milk Of Magnesia 30 Ml Oral.Susp) 30 ml PO DAILY PRN PRN Reason: Constipation Melatonin (Melatonin 3 Mg Tablet) 3 mg PO BEDTIME [facility] Last Admin: 12/26/22 21:03 Dose: 3 mg Trazodone HCl (Trazodone Hcl 50 Mg Tablet) 50 mg PO BEDTIME MRX1 PRN PRN Reason: Insomnia Last Admin: 12/22/22 21:07 Dose: 50 mg Allergies Allergies Allergy/AdvReac Type Severity Reaction Status Date / Time No Known Allergies Allergy Verified 12/13/22 17:46 Assessment & Plan Assessment & Plan (1) Fracture of right ulnar styloid: Status: Acute Code(s): S52.611A - Displaced fracture of right ulna styloid process, initial encounter for closed fracture Assessment and Plan: Assessment and plan: 1. Right ulnar styloid fracture Date of injury unknown, but likely the last 1-2 weeks I educated the patient about this condition I fitted her with a Velcro wrist splint which she said felt good, and supportive. I explained to the patient and her nurse that she was to wear the Velcro wrist splint for comfort. She may remove it if she wants to at any time, and should remove it periodically to maintain wrist range of motion. Activity modification, heavy or repetitive lifting. Weight limit of about 2 lb. She should follow-up with us in the orthopedic clinic once discharged from the hospital. (2) Bipolar disorder, most recent episode depressed: Status: Acute Code(s): F31.30 - Bipolar disorder, current episode depressed, mild or moderate severity, unspecified (3) Neurodegenerative cognitive impairment: Status: Acute Code(s): G31.9 - Degenerative disease of nervous system, unspecified Plan 12/16:? restart prior regimen.? titrate wellbutrin to 300 mg daily and vraylar to 4.5 mg daily.? monitor for improvement, T/C addition of mood stabilizer, as pt c/o mood swings even with previous regimen.? antibx for UTI. 12/17:? increase vraylar to 4.5 mg daily as of tomorrow.? otherwise continue current mgmt.? depressed. 12/18:? as of today, pt is back on regimen on which she was discharged from [facility].? give some days for improvement and stabilization, then T/C mood stabilizer. 12/19:? MoCA 17 today.? continue current mgmt. 12/20:? appears to have flipped into mg/hypomania overnight.? agreeable to start VPA 1000 mg QHS as of tonight.? hyperverbal, very busy with planning via telephone calls, hyper-intense and posisitve affect. 12/21:? slept 6.5 hours last night, slower today and less grandiose.? continue current mgmt.? contact court tomorrow to request a continuance. 12/22:? slept 6 hours, remains less manic than 12/20.? continue current mgmt.? contact court to request continuance.? labs scheduled for evening. 12/23:? less manic, improved sleep. No overt psychosis. rechecking HR, as it was elevated this AM. Pt denies chest pain, palpitations. 12/24:? remains hypomanic, adequate sleep.? wrist xray likely Fx; ortho consulted re mgmt.? check labs tomorrow. 12/25: appreciate ortho consult and recs. continue current mgmt, remains hypomanic. labs this evening. 12/26: VPA level 49.5, LFTs WNL. minor anemia. BUN 28. increase VPA to 1250 QHS. c/o consistent left flank pain; pelvic/lumbar xray to be ordered. 12/27: Continue current plan. Reason for continued inpatient stay Substantial Risk for: inability to function and rapid decompensation Time Spent With Patient Time: Total time managing care of this patient today ____ minutes.
[2022-12-27 19:52] VITALS: BP 138/79; PULSE 97; RESP 18; TEMP 36.4; O2SAT 98
[2022-12-27] MEDS: Divalproex Sodium ER 500 MG TAB.ER.24H 1000 MG PO (20:59)
[2022-12-27] MEDS: Divalproex Sodium ER 250 MG TAB.ER.24H PO (20:59)
[2022-12-27] MEDS: Melatonin 3 MG TABLET PO (20:59)
[2022-12-28] MEDS: hydrOXYzine HCL 25 MG TABLET PO ×2 (03:26→22:35)
[2022-12-28 08:00] VITALS: BP 138/77; PULSE 78; RESP 18; TEMP 36.6; O2SAT 100
[2022-12-28] MEDS: Cariprazine HCl 1.5 MG CAPSULE 4.5 MG PO (09:40)
[2022-12-28] MEDS: buPROPion HCl XL 300 MG TAB.ER.24H PO (09:41)
[2022-12-28] MEDS: Acetaminophen 325 MG TABLET 650 MG PO (11:00)
--- NOTE | 2022-12-28 13:56 | HO.PSYCHPN ---
Subjective Subjective Date of Service: 12/28/22 Reason For Visit: depression Interim History: Patient reports she is feeling more stable with her mood. Says she is tolerating her medications well. She is more engaged. She is cooperative. Tolerating increase dosing of Depakote to 1250 QHS. Multiple somatic complaints. Interrupted sleep. Has Trazodone PRN which she didn't use. Review of Systems Constitutional: Reports no additional constitutional complaints, Denies chills, Denies fever(s) and Denies night sweats Eyes: Reports no additional eye complaints, Denies blurry vision, Denies change in vision, Denies diplopia, Denies eye discharge, Denies loss of vision and Denies eye pain Denies dizziness Cardiovascular: Reports no additional cardiovascular complaints, Denies chest pain, Denies lightheadedness, Denies Loss of Consciousness and Denies dyspnea Respiratory: Reports no additional respiratory complaints and Denies dyspnea Gastrointestinal: Reports no additional gastrointestinal complaints, Denies abdominal pain, Denies melena, Denies hematochezia, Denies change in bowel habits and Denies change in stool character Musculoskeletal: Reports no additional musculoskeletal complaints, Denies numbness and Denies tingling Denies dizziness, Denies loss of vision, Denies numbness and Denies tingling Psychiatric: Reports no additional psychiatric complaints, Reports depression, Denies homicidal ideation and Denies suicidal ideation Endocrine: Reports no additional endocrine complaints Hematologic/Lymphatic: Reports no additional hematologic/lymphatic complaints Allergic/Immunologic: Reports no additional allergic/immunologic complaints Mental Status Exam Mental Status Exam Narrative: adequate hygiene, dressed in street clothes, cooperative, no PMA/PMR. speech incr rate, incr amount, nml loudness, nml tone, decr latency. thoughts linear and logical. affect full range, hyper-intense, non-labile. no SI/SIBI/HI/AVH expressed. Patient Appearance: Appropriate Patient Orientation: Person and Situation Level of Consciousness: Awake and Appropriate Patient Behavior: Guarded and Passive Mood Description: Calm Affect Description: Constricted Patient Cognition Impaired: Yes Ability to Follow Directions: Good Speech Pattern: Clear Diagnostics Vital Signs (24Hr): Vital Signs - 24 hr 12/27/22 19:52 12/28/22 08:00 Temperature 97.6 F 97.9 F Pulse Rate 97 78 Respiratory Rate 18 18 Blood Pressure 138/79 138/77 Pulse Oximetry 98 100 Oxygen Delivery Method Room Air Room Air BMI result Body Mass Index 26.4 Labs 12/25/22 20:29 12/25/22 20:29 Imaging Radiology Impressions: ITS Impressions Head CT 12/13/22 19:23 IMPRESSION: No evidence of acute intracranial hemorrhage or edematous territorial infarction. Wrist X-Ray 12/22/22 15:00 IMPRESSION: Question nondisplaced ulnar styloid fracture. Findings will be communicated by the [place] work flow operations asst Hip/Pelvis X-Ray 12/26/22 13:50 IMPRESSION: No abnormality is seen in the hip. 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 Medications Medications Current Medications Acetaminophen (Acetaminophen 325 Mg Tablet) 650 mg PO Q6H PRN PRN Reason: Headache/Pain Mild Scale (1-3) Last Admin: 12/28/22 11:00 Dose: 650 mg Al Hydroxide/Mg Hydroxide (Magnesium Hydrox/Alum Hydrox 30 Ml Oral.Susp) 30 ml PO Q6H PRN PRN Reason: Heartburn/Nausea Bupropion HCl (Bupropion Hcl Xl 300 Mg Tab.Er.24h) 300 mg PO DAILY [facility]S [facility]CLUDE 234 BEDS AT [facility] Last Admin: 12/28/22 09:41 Dose: 300 mg Cariprazine (Cariprazine Hcl 1.5 Mg Capsule) 4.5 mg PO DAILY COUNTS INCLUDE 234 BEDS AT THE [facility] Last Admin: 12/28/22 09:40 Dose: 4.5 mg Divalproex Sodium (Divalproex Sodium Er 500 Mg Tab.Er.24h) 1,000 mg PO BEDTIME COUNTS INCLUDE 234 BEDS AT THE [facility] Last Admin: 12/27/22 20:59 Dose: 1,000 mg Divalproex Sodium (Divalproex Sodium Er 250 Mg Tab.Er.24h) 250 mg PO BEDTIME COUNTS INCLUDE 234 BEDS AT THE [facility] Last Admin: 12/27/22 20:59 Dose: 250 mg Hydroxyzine HCl (Hydroxyzine Hcl 25 Mg Tablet) 25 mg PO Q6H PRN PRN Reason: Anxiety Last Admin: 12/28/22 03:26 Dose: 25 mg Magnesium Hydroxide (Milk Of Magnesia 30 Ml Oral.Susp) 30 ml PO DAILY PRN PRN Reason: Constipation Melatonin (Melatonin 3 Mg Tablet) 3 mg PO BEDTIME COUNTS INCLUDE 234 BEDS AT THE [facility] Last Admin: 12/27/22 20:59 Dose: 3 mg Trazodone HCl (Trazodone Hcl 50 Mg Tablet) 50 mg PO BEDTIME MRX1 PRN PRN Reason: Insomnia Last Admin: 12/22/22 21:07 Dose: 50 mg Allergies Allergies Allergy/AdvReac Type Severity Reaction Status Date / Time No Known Allergies Allergy Verified 12/13/22 17:46 Assessment & Plan Assessment & Plan (1) Fracture of right ulnar styloid: Status: Acute Code(s): S52.611A - Displaced fracture of right ulna styloid process, initial encounter for closed fracture Assessment and Plan: Assessment and plan: 1. Right ulnar styloid fracture Date of injury unknown, but likely the last 1-2 weeks I educated the patient about this condition I fitted her with a Velcro wrist splint which she said felt good, and supportive. I explained to the patient and her nurse that she was to wear the Velcro wrist splint for comfort. She may remove it if she wants to at any time, and should remove it periodically to maintain wrist range of motion. Activity modification, heavy or repetitive lifting. Weight limit of about 2 lb. She should follow-up with us in the orthopedic clinic once discharged from the hospital. (2) Bipolar disorder, most recent episode depressed: Status: Acute Code(s): F31.30 - Bipolar disorder, current episode depressed, mild or moderate severity, unspecified (3) Neurodegenerative cognitive impairment: Status: Acute Code(s): G31.9 - Degenerative disease of nervous system, unspecified Plan 12/16:? restart prior regimen.? titrate wellbutrin to 300 mg daily and vraylar to 4.5 mg daily.? monitor for improvement, T/C addition of mood stabilizer, as pt c/o mood swings even with previous regimen.? antibx for UTI. 12/17:? increase vraylar to 4.5 mg daily as of tomorrow.? otherwise continue current mgmt.? depressed. 12/18:? as of today, pt is back on regimen on which she was discharged from [facility].? give some days for improvement and stabilization, then T/C mood stabilizer. 12/19:? MoCA 17 today.? continue current mgmt. 12/20:? appears to have flipped into mg/hypomania overnight.? agreeable to start VPA 1000 mg QHS as of tonight.? hyperverbal, very busy with planning via telephone calls, hyper-intense and posisitve affect. 12/21:? slept 6.5 hours last night, slower today and less grandiose.? continue current mgmt.? contact court tomorrow to request a continuance. 12/22:? slept 6 hours, remains less manic than 12/20.? continue current mgmt.? contact court to request continuance.? labs scheduled for evening. 12/23:? less manic, improved sleep. No overt psychosis. rechecking HR, as it was elevated this AM. Pt denies chest pain, palpitations. 12/24:? remains hypomanic, adequate sleep.? wrist xray likely Fx; ortho consulted re mgmt.? check labs tomorrow. 12/25: appreciate ortho consult and recs. continue current mgmt, remains hypomanic. labs this evening. 12/26: VPA level 49.5, LFTs WNL. minor anemia. BUN 28. increase VPA to 1250 QHS. c/o consistent left flank pain; pelvic/lumbar xray to be ordered. 12/27: Continue current plan. 12/28: Continue current plan. Reason for continued inpatient stay Substantial Risk for: inability to function and rapid decompensation Time Spent With Patient Time: Total time managing care of this patient today ____ minutes.
--- NOTE | 2022-12-28 15:11 | PC.NURSE ---
left foot edematous, 2+, Pt states it gets like this sometimes encouraged her to elevate foot on chair.
[2022-12-28 21:23] VITALS: BP 129/73; PULSE 105; RESP 18; O2SAT 96
[2022-12-28] MEDS: Melatonin 3 MG TABLET PO (22:35)
[2022-12-28] MEDS: Divalproex Sodium ER 250 MG TAB.ER.24H PO (22:35)
[2022-12-28] MEDS: Divalproex Sodium ER 500 MG TAB.ER.24H 1000 MG PO (22:35)
[2022-12-29 00:21] LABS: Appearance Urine Cloudy; Color Urine Yellow; Glucose Urine UA Negative (Negative); Leukocyte Esterase Urine Large (3+) (Negative); Nitrite Urine Negative (Negative); PH 5.5 (5.0-9.0); UMIC TRIGGER UACC YES; Urine Blood Negative (Negative); Urine Ketones Trace mg/dL (Negative); Urine Protein Negative (Neg-Trace)
[2022-12-29 00:26] LABS: Bacteria Urine 3+ (None Seen); Hyaline Casts Urine 0-2 /LPF (0-2); RBC Urine 0-2 /HPF (0-2); UACC Culture Trigger YES; WBC Urine >50 /HPF (0-5)
[2022-12-29 06:00] VITALS: BP 129/60; PULSE 83; RESP 18; TEMP 36.6; O2SAT 98
[2022-12-29] MEDS: Acetaminophen 325 MG TABLET 650 MG PO ×3 (06:03→22:32)
[2022-12-29] MEDS: Cariprazine HCl 1.5 MG CAPSULE 4.5 MG PO (08:27)
[2022-12-29] MEDS: buPROPion HCl XL 300 MG TAB.ER.24H PO (08:28)
[2022-12-29 12:13] LABS: Appearance Urine Clear; Color Urine Yellow; Glucose Urine UA Negative (Negative); Leukocyte Esterase Urine Moderate (2+) (Negative); Nitrite Urine Negative (Negative); UMIC TRIGGER UACC YES; Urine Blood Negative (Negative); Urine Ketones Negative (Negative); Urine Protein Negative (Neg-Trace)
[2022-12-29 12:26] LABS: Bacteria Urine None Seen (None Seen); Hyaline Casts Urine 0-2 /LPF (0-2); RBC Urine 0-2 /HPF (0-2); Squamous Epithelial Cell Urine 0-2 /HPF (0-2); WBC Urine 0-5 /HPF (0-5)
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
[2022-12-29 21:49] VITALS: BP 123/78; PULSE 100; RESP 18; TEMP 36.4; O2SAT 96
[2022-12-29] MEDS: Melatonin 3 MG TABLET PO (22:20)
[2022-12-29] MEDS: Divalproex Sodium ER 250 MG TAB.ER.24H PO (22:21)
[2022-12-29] MEDS: Divalproex Sodium ER 500 MG TAB.ER.24H 1000 MG PO (22:21)
[2022-12-29] MEDS: hydrOXYzine HCL 25 MG TABLET PO (22:21)
[2022-12-30] MEDS: Acetaminophen 325 MG TABLET 650 MG PO ×3 (04:21→22:18)
[2022-12-30] MEDS: Cariprazine HCl 1.5 MG CAPSULE 4.5 MG PO (09:03)
[2022-12-30] MEDS: buPROPion HCl XL 300 MG TAB.ER.24H PO (09:04)
[2022-12-30 09:29] LABS: BV Int Neg Control Negative (Negative); BV Int Pos Control Positive (Positive)
[2022-12-30 10:12] VITALS: BP 146/79; PULSE 86; RESP 20; TEMP 36.2; O2SAT 96
[2022-12-30 10:28] LABS: CT PCR NOT DETECTED (Not Detect.); NG PCR NOT DETECTED (Not Detect.)
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
[2022-12-30] MEDS: metroNIDAZOLE 500 MG TABLET PO ×2 (12:30→21:48)
[2022-12-30] MEDS: Fluconazole 150 MG TABLET PO (13:35)
[2022-12-30 20:27] LABS: MANUAL DIFF FLAG NO
[2022-12-30 20:38] LABS: Ammonia 33 umol/L (13-55)
[2022-12-30 20:43] LABS: Valproate 58.1 mcg/mL (50.0-100.0)
[2022-12-30 20:45] LABS: Alanine Aminotransferase 26 U/L (0-31); Albumin Level 3.8 g/dL (3.5-5.0); Alkaline Phosphatase 73 U/L (39-117); Anion Gap 12 (12-20); Aspartate Amino Transferase 30 U/L (5-31); Bilirubin Direct < 0.2 mg/dL (0.0-0.5); Bilirubin Total 0.2 mg/dL (0.0-1.0); Blood Urea Nitrogen 34 mg/dL (9-16); Carbon Dioxide 29 mmol/L (22-29); Chloride 105 mmol/L (96-108); Creatinine Clr Calc Pharmacy 40.1; Estimated Glomerular Filt Rate 44; Glucose Random 75 mg/dL (60-115); Potassium 4.5 mmol/L (3.3-5.1); Sodium 141 mmol/L (135-145)
[2022-12-30 21:09] LABS: Basophils Absolute Auto 0.1 X10*3/uL (0.0-0.2); Basophils Percent Auto 0.8 % (0-2); Eosinophils Absolute Auto 0.1 X10*3/uL (0.0-0.4); Eosinophils Percent Auto 1.1 % (0-4); Hematocrit 38.8 % (37.0-47.0); Hemoglobin 12.2 g/dl (12.0-16.0); Imm Gran Abs Auto 0.09 X10*3/uL (0.00-0.03); Imm Gran Pct Auto 1.2 % (0.0-0.4); Mean Corpuscular HGB Conc 31.4 g/dl (31.0-35.0); Mean Corpuscular Hemoglobin 28.8 pg (27.0-33.0); Mean Corpuscular Volume 91.7 fL (80.0-98.0); Monocytes Absolute Auto 0.8 X10*3/uL (0.1-1.2); Neutrophils Absolute Auto 4.5 x10*3/uL (2.0-8.3); Neutrophils Percent Auto 59.9 % (45-73); Platelet Count 352 X10*3/uL (160-400); Red Blood Count 4.23 X10*6/uL (4.20-5.50); Red Cell Distribution Width 13.9 % (11.0-16.0); White Blood Count 7.5 X10*3/uL (4.8-10.8)
[2022-12-30] MEDS: Divalproex Sodium ER 500 MG TAB.ER.24H 1000 MG PO (21:48)
[2022-12-30] MEDS: Melatonin 3 MG TABLET PO (21:48)
[2022-12-30] MEDS: Divalproex Sodium ER 250 MG TAB.ER.24H PO (21:48)
[2022-12-30 21:55] VITALS: BP 130/63; PULSE 98; RESP 18; TEMP 36.5; O2SAT 98
[2022-12-30] MEDS: hydrOXYzine HCL 25 MG TABLET PO (22:18)
[2022-12-31] MEDS: hydrOXYzine HCL 25 MG TABLET PO ×2 (04:19→22:09)
[2022-12-31] MEDS: Acetaminophen 325 MG TABLET 650 MG PO ×3 (04:19→18:15)
[2022-12-31 08:06] VITALS: BP 123/60; PULSE 86; RESP 18; TEMP 36.5; O2SAT 98
[2022-12-31] MEDS: Cariprazine HCl 1.5 MG CAPSULE 4.5 MG PO (08:07)
[2022-12-31] MEDS: buPROPion HCl XL 300 MG TAB.ER.24H PO (08:07)
[2022-12-31] MEDS: metroNIDAZOLE 500 MG TABLET PO ×2 (10:47→22:09)
[2022-12-31 12:08] LABS: Appearance Urine Clear; Color Urine Yellow; Glucose Urine UA Negative (Negative); Leukocyte Esterase Urine Large (3+) (Negative); Nitrite Urine Negative (Negative); PH 7.5 (5.0-9.0); UMIC TRIGGER UA YES; Urine Blood Negative (Negative); Urine Ketones Negative (Negative); Urine Protein Negative (Neg-Trace)
[2022-12-31 12:10] LABS: Bacteria Urine None Seen (None Seen); Hyaline Casts Urine 0-2 /LPF (0-2); RBC Urine 0-2 /HPF (0-2); WBC Urine 21-50 /HPF (0-5)
[2022-12-31 12:33] LABS: Creatinine Urine 19.74 mg/dL; Total Protein Urine Random < 7 mg/dL (<12)
[2022-12-31 20:18] VITALS: BP 138/78; PULSE 99; RESP 16; TEMP 36.6; O2SAT 98
[2022-12-31] MEDS: Divalproex Sodium ER 250 MG TAB.ER.24H PO (22:08)
[2022-12-31] MEDS: Divalproex Sodium ER 500 MG TAB.ER.24H 1000 MG PO (22:08)
[2022-12-31] MEDS: Melatonin 3 MG TABLET PO (22:10)
[2023-01-01] MEDS: Acetaminophen 325 MG TABLET 650 MG PO ×3 (04:10→21:45)
[2023-01-01] MEDS: hydrOXYzine HCL 25 MG TABLET PO (04:10)
--- NOTE | 2023-01-01 06:34 | PC.NURSE ---
Marjorie reported to this nurse at 0620 that she feels like her abdomen is bloated. Patient believes it is because of the Depakote that she is on. Nurse will pass information on to am nurse to inform the MD.
[2023-01-01 07:00] VITALS: BMI 27.2
[2023-01-01] MEDS: Cariprazine HCl 1.5 MG CAPSULE 4.5 MG PO (08:44)
[2023-01-01] MEDS: buPROPion HCl XL 300 MG TAB.ER.24H PO (08:44)
[2023-01-01 09:47] LABS: Anion Gap 13 (12-20); Blood Urea Nitrogen 26 mg/dL (9-16); Calcium 9.6 mg/dL (8.4-10.2); Carbon Dioxide 30 mmol/L (22-29); Chloride 101 mmol/L (96-108); Creatinine Clr Calc Pharmacy 47.1; Estimated Glomerular Filt Rate 53; Glucose Random 87 mg/dL (60-115); Potassium 4.2 mmol/L (3.3-5.1); Sodium 140 mmol/L (135-145)
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
[2023-01-01] MEDS: metroNIDAZOLE 500 MG TABLET PO ×2 (12:44→21:55)
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
[2023-01-01 15:26] VITALS: BP 148/76; PULSE 93; RESP 16; TEMP 36.6; O2SAT 99
[2023-01-01 20:45] VITALS: BP 133/73; PULSE 94; RESP 18; TEMP 36.2; O2SAT 98
[2023-01-01] MEDS: Divalproex Sodium ER 500 MG TAB.ER.24H 1000 MG PO (21:44)
[2023-01-01] MEDS: Divalproex Sodium ER 250 MG TAB.ER.24H PO (21:45)
[2023-01-01] MEDS: Melatonin 3 MG TABLET PO (21:45)
[2023-01-02] MEDS: hydrOXYzine HCL 25 MG TABLET PO ×2 (02:45→22:13)
[2023-01-02 08:30] VITALS: BP 164/78; PULSE 84; RESP 18; TEMP 36.2; O2SAT 100
[2023-01-02] MEDS: buPROPion HCl XL 300 MG TAB.ER.24H PO (08:30)
[2023-01-02] MEDS: Cariprazine HCl 1.5 MG CAPSULE 4.5 MG PO (08:30)
[2023-01-02 08:38] VITALS: BP 173/81; PULSE 80
[2023-01-02 09:50] LABS: Anion Gap 15 (12-20); Blood Urea Nitrogen 28 mg/dL (9-16); Calcium 9.5 mg/dL (8.4-10.2); Carbon Dioxide 26 mmol/L (22-29); Chloride 102 mmol/L (96-108); Creatinine Clr Calc Pharmacy 53.5; Estimated Glomerular Filt Rate 60; Glucose Random 87 mg/dL (60-115); Potassium 4.6 mmol/L (3.3-5.1); Sodium 138 mmol/L (135-145)
[2023-01-02] MEDS: metroNIDAZOLE 500 MG TABLET PO ×2 (12:27→22:13)
[2023-01-02] MEDS: Acetaminophen 325 MG TABLET 650 MG PO ×2 (12:27→20:06)
--- NOTE | 2023-01-02 13:46 | P.PNPSI_ITS ---
Subjective Subjective Date of Service: 01/02/23 Reason For Visit: mg Interim History: reports some improvement in edema in hands. agreeable to increase VPA to 1500. still c/o nocturia. asking for MD to contact her cousin radha arrington at [phone]. per staff, poor sleep; she attributes it to nocturia. attending groups. BPs elevated today. reportedly did not sleep at all last NOC. Mental Status Exam Mental Status Exam Narrative: adequate hygiene, dressed in street clothes, cooperative, no PMA/PMR. speech incr rate, incr amount, nml loudness, nml tone, decr latency. thoughts linear and digressive. affect full range, hyper-intense, non-labile. no SI/SIBI/HI/AVH expressed. Diagnostics Vital Signs (24Hr): Vital Signs - 24 hr 01/01/23 15:26 01/01/23 20:45 01/02/23 08:30 Temperature 97.9 F 97.2 F 97.2 F Pulse Rate 93 94 84 Respiratory Rate 16 18 18 Blood Pressure 148/76 H 133/73 164/78 H Pulse Oximetry 99 98 100 Oxygen Delivery Method Room Air Room Air Room Air 01/02/23 08:38 Temperature Pulse Rate 80 Respiratory Rate Blood Pressure 173/81 H Pulse Oximetry Oxygen Delivery Method BMI result Body Mass Index 27.2 Labs 12/30/22 20:17 01/02/23 08:42 Labs: Laboratory Results - last 48 hr 01/01/23 01/02/23 09:19 08:42 Sodium 140 138 Potassium 4.2 4.6 Chloride 101 102 Carbon Dioxide 30 H 26 Anion Gap 13 15 BUN 26 H 28 H Creatinine 1.04 0.93 Estim Creat Clear Calc 47.1 53.5 Estimated GFR 53 60 Random Glucose 87 87 Calcium 9.6 D 9.5 Imaging Radiology Impressions: ITS Impressions Head CT 12/13/22 19:23 IMPRESSION: No evidence of acute intracranial hemorrhage or edematous territorial infarction. Wrist X-Ray 12/22/22 15:00 IMPRESSION: Question nondisplaced ulnar styloid fracture. Findings will be communicated by the [place] work flow licensed direct entry midwife Hip/Pelvis X-Ray 12/26/22 13:50 IMPRESSION: No abnormality is seen in the hip. 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 Venous Duplex 12/29/22 14:10 IMPRESSION: No evidence for deep venous thrombosis in the visualized veins of the left lower extremity. Duplex Scan Lower Extremity Artery 12/29/22 14:20 IMPRESSION: Widely patent flow throughout the left lower extremity Medications Medications Current Medications Acetaminophen (Acetaminophen 325 Mg Tablet) 650 mg PO Q6H PRN PRN Reason: Headache/Pain Mild Scale (1-3) Last Admin: 01/02/23 12:27 Dose: 650 mg Al Hydroxide/Mg Hydroxide (Magnesium Hydrox/Alum Hydrox 30 Ml Oral.Susp) 30 ml PO Q6H PRN PRN Reason: Heartburn/Nausea Bupropion HCl (Bupropion Hcl Xl 300 Mg Tab.Er.24h) 300 mg PO DAILY [facility] Last Admin: 01/02/23 08:30 Dose: 300 mg Cariprazine (Cariprazine Hcl 1.5 Mg Capsule) 4.5 mg PO DAILY [facility] Last Admin: 01/02/23 08:30 Dose: 4.5 mg Divalproex Sodium (Divalproex Sodium Er 500 Mg Tab.Er.24h) 1,500 mg PO BEDTIME CARLOS Hydroxyzine HCl (Hydroxyzine Hcl 25 Mg Tablet) 25 mg PO Q6H PRN PRN Reason: Anxiety Last Admin: 01/02/23 02:45 Dose: 25 mg Magnesium Hydroxide (Milk Of Magnesia 30 Ml Oral.Susp) 30 ml PO DAILY PRN PRN Reason: Constipation Melatonin (Melatonin 3 Mg Tablet) 3 mg PO BEDTIME CARLOS Last Admin: 01/01/23 21:45 Dose: 3 mg Metronidazole (Metronidazole 500 Mg Tablet) 500 mg PO Q12H [facility] Stop: 01/05/23 23:16 Last Admin: 01/02/23 12:27 Dose: 500 mg Trazodone HCl (Trazodone Hcl 50 Mg Tablet) 50 mg PO BEDTIME MRX1 PRN PRN Reason: Insomnia Last Admin: 12/22/22 21:07 Dose: 50 mg Allergies Allergies Allergy/AdvReac Type Severity Reaction Status Date / Time No Known Allergies Allergy Verified 12/13/22 17:46 Assessment & Plan Assessment & Plan (1) Bilateral lower extremity edema: Status: Acute Code(s): R60.0 - Localized edema Assessment and Plan: Bilateral lower extremity edema. No significant proteinuria on urinalysis. No canal appears normal with a serum albumin of 3.8. No cardiac history. Edema might be related to use of Depakote. Current issues asymptomatic. Overall she feels that Depakote is helping her and she is not interested in changing the therapy. I would suggest to keep her on the Depakote and we can monitor the renal function and edema over the next few days. I would also hold diuretics at this time. Keep on low-sodium diet. If the edema gets worse or if renal function worsens then we can consider alternate therapy. (2) RADHA (acute kidney injury): Status: Acute Code(s): N17.9 - Acute kidney failure, unspecified Assessment and Plan: RADHA most likely due to hypoperfusion from use of diuretics. Different diagnosis would include obstructive uropathy. Recent urinalysis was benign therefore or glomerular nephritis or interstitial disease seem unlikely I would suggest to keep her on the Depakote and we can monitor the renal function and edema over the next few days. I would also hold diuretics at this time. Keep on low-sodium diet. If the edema gets worse or if renal function worsens then we can consider alternate therapy. (3) Neurodegenerative cognitive impairment: Status: Acute Code(s): G31.9 - Degenerative disease of nervous system, unspecified (4) Bipolar disorder, most recent episode depressed: Status: Acute Code(s): F31.30 - Bipolar disorder, current episode depressed, mild or moderate severity, unspecified Plan 12/16:? restart prior regimen.? titrate wellbutrin to 300 mg daily and vraylar to 4.5 mg daily.? monitor for improvement, T/C addition of mood stabilizer, as pt c/o mood swings even with previous regimen.? antibx for UTI. 12/17:? increase vraylar to 4.5 mg daily as of tomorrow.? otherwise continue current mgmt.? depressed. 12/18:? as of today, pt is back on regimen on which she was discharged from [facility].? give some days for improvement and stabilization, then T/C mood stabilizer. 12/19:? MoCA 17 today.? continue current mgmt. 12/20:? appears to have flipped into mg/hypomania overnight.? agreeable to start VPA 1000 mg QHS as of tonight.? hyperverbal, very busy with planning via telephone calls, hyper-intense and posisitve affect. 12/21:? slept 6.5 hours last night, slower today and less grandiose.? continue current mgmt.? contact court tomorrow to request a continuance. 12/22:? slept 6 hours, remains less manic than 12/20.? continue current mgmt.? contact court to request continuance.? labs scheduled for evening. 12/23:? less manic, improved sleep. No overt psychosis. rechecking HR, as it was elevated this AM. Pt denies chest pain, palpitations. 12/24:? remains hypomanic, adequate sleep.? wrist xray likely Fx; ortho consulted re mgmt.? check labs tomorrow. 12/25:? appreciate ortho consult and recs.? continue current mgmt, remains hypomanic.? labs this evening. 12/26:? VPA level 49.5, LFTs WNL.? minor anemia.? BUN 28.? increase VPA to 1250 QHS.? c/o consistent left flank pain; pelvic/lumbar xray to be ordered. 12/27: Continue current plan. 12/28: Continue current plan. 12/29:? continues hypomanic.? check labs tomorrow evening, 5 days after increasing VPA dosing.? c/o LLE swelling, with palpable cord, being investigated by hospitalist.? same for foul smelling vaginal D/C, most c/w BV.? also testing for NG TC due to sexual Hx and mg.? LLE U/S pending. 12/30:? STI testing neg, U/S NEG for DVT.? continue compression stockings.? + for BV, start course of flagyl.? continue psych regimen, check labs tonight.? co ntinues hypomanic. 12/31: seen by renal for elevated BUN. no changes made to regimen due to c/o edema and elevated BUN. 01/01: BUN trended down slightly overnight. continue current mgmt per renal re cs, observe for resolution of RADHA, felt to be related to recent use of diuretics, as well as edema, which may be more related to VPA. unclear at the moment. pt's preference is to DC VPA and initiate a trial of tegretol if edema is determined to be most likely from VPA. recheck labs tomorrow morning. 01/02: BUN 28 today, but Cr down to 0.93. per renal, this is a good sign of recovery renal fxn and we expect BUN to lag Cr in improvement. pt also reports decreased edema in her hands, agreeable to increase VPA to 1500 mg as of this evening. VPA levels 49.5 and 58.1 on 1250 mg QHS. Reason for continued inpatient stay Substantial Risk for: inability to function and rapid decompensation Time Spent With Patient Time: Total time managing care of this patient today _35___ minutes.
[2023-01-02] MEDS: Melatonin 3 MG TABLET PO (22:13)
[2023-01-02] MEDS: Divalproex Sodium ER 500 MG TAB.ER.24H 1500 MG PO (22:13)
[2023-01-03] MEDS: Acetaminophen 325 MG TABLET 650 MG PO ×3 (04:47→22:45)
[2023-01-03] MEDS: buPROPion HCl XL 300 MG TAB.ER.24H PO (08:58)
[2023-01-03] MEDS: Cariprazine HCl 1.5 MG CAPSULE 4.5 MG PO (08:58)
[2023-01-03 09:02] VITALS: BP 139/82; PULSE 82; RESP 16; TEMP 36.8; O2SAT 98
--- NOTE | 2023-01-03 10:59 | P.PNPSI_ITS ---
Subjective Subjective Date of Service: 01/03/23 Reason For Visit: mg Subjective Notes: Conditional Voluntary Interim History: Patient was seen and discussed in rounds. Records and plans were reviewed. She has been more visible, social. She is less hyperverbal. Her Depakote was increased to 1500 mg. She was seen by Nephrology for her elevated BUN but I do not see a note yet. She is eating and sleeping adequately. No changes were made today Medication Compliance: Yes Side effects from medications: No Review of Systems Review of Systems Yes all other systems are reviewed and are negative Diagnostics Vital Signs (24Hr): Vital Signs - 24 hr 01/03/23 09:02 Temperature 98.3 F Pulse Rate 82 Respiratory Rate 16 Blood Pressure 139/82 Pulse Oximetry 98 Oxygen Delivery Method Room Air BMI result Body Mass Index 27.2 Labs 12/30/22 20:17 01/02/23 08:42 Labs: Laboratory Results - last 48 hr 01/02/23 08:42 Sodium 138 Potassium 4.6 Chloride 102 Carbon Dioxide 26 Anion Gap 15 BUN 28 H Creatinine 0.93 Estim Creat Clear Calc 53.5 Estimated GFR 60 Random Glucose 87 Calcium 9.5 Imaging Radiology Impressions: ITS Impressions Head CT 12/13/22 19:23 IMPRESSION: No evidence of acute intracranial hemorrhage or edematous territorial infarction. Wrist X-Ray 12/22/22 15:00 IMPRESSION: Question nondisplaced ulnar styloid fracture. Findings will be communicated by the [place] work flow instructional technology facilitator Hip/Pelvis X-Ray 12/26/22 13:50 IMPRESSION: No abnormality is seen in the hip. 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 Venous Duplex 12/29/22 14:10 IMPRESSION: No evidence for deep venous thrombosis in the visualized veins of the left lower extremity. Duplex Scan Lower Extremity Artery 12/29/22 14:20 IMPRESSION: Widely patent flow throughout the left lower extremity Medications Medications Current Medications Acetaminophen (Acetaminophen 325 Mg Tablet) 650 mg PO Q6H PRN PRN Reason: Headache/Pain Mild Scale (1-3) Last Admin: 01/03/23 04:47 Dose: 650 mg Al Hydroxide/Mg Hydroxide (Magnesium Hydrox/Alum Hydrox 30 Ml Oral.Susp) 30 ml PO Q6H PRN PRN Reason: Heartburn/Nausea Bupropion HCl (Bupropion Hcl Xl 300 Mg Tab.Er.24h) 300 mg PO DAILY [facility] Last Admin: 01/03/23 08:58 Dose: 300 mg Cariprazine (Cariprazine Hcl 1.5 Mg Capsule) 4.5 mg PO DAILY [facility] Last Admin: 01/03/23 08:58 Dose: 4.5 mg Divalproex Sodium (Divalproex Sodium Er 500 Mg Tab.Er.24h) 1,500 mg PO BEDTIME [facility] Last Admin: 01/02/23 22:13 Dose: 1,500 mg Hydroxyzine HCl (Hydroxyzine Hcl 25 Mg Tablet) 25 mg PO Q6H PRN PRN Reason: Anxiety Last Admin: 01/02/23 22:13 Dose: 25 mg Magnesium Hydroxide (Milk Of Magnesia 30 Ml Oral.Susp) 30 ml PO DAILY PRN PRN Reason: Constipation Melatonin (Melatonin 3 Mg Tablet) 3 mg PO BEDTIME [facility] Last Admin: 01/02/23 22:13 Dose: 3 mg Metronidazole (Metronidazole 500 Mg Tablet) 500 mg PO Q12H [facility] Stop: 01/05/23 23:16 Last Admin: 01/02/23 22:13 Dose: 500 mg Trazodone HCl (Trazodone Hcl 50 Mg Tablet) 50 mg PO BEDTIME MRX1 PRN PRN Reason: Insomnia Last Admin: 12/22/22 21:07 Dose: 50 mg Allergies Allergies Allergy/AdvReac Type Severity Reaction Status Date / Time No Known Allergies Allergy Verified 12/13/22 17:46 Assessment & Plan Assessment & Plan (1) Bilateral lower extremity edema: Status: Acute Code(s): R60.0 - Localized edema Assessment and Plan: Bilateral lower extremity edema. No significant proteinuria on urinalysis. No canal appears normal with a serum albumin of 3.8. No cardiac history. Edema might be related to use of Depakote. Current issues asymptomatic. Overall she feels that Depakote is helping her and she is not interested in changing the therapy. I would suggest to keep her on the Depakote and we can monitor the renal function and edema over the next few days. I would also hold diuretics at this time. Keep on low-sodium diet. If the edema gets worse or if renal function worsens then we can consider alternate therapy. (2) RADHA (acute kidney injury): Status: Acute Code(s): N17.9 - Acute kidney failure, unspecified Assessment and Plan: RADHA most likely due to hypoperfusion from use of diuretics. Different diagnosis would include obstructive uropathy. Recent urinalysis was benign therefore or glomerular nephritis or interstitial disease seem unlikely I would suggest to keep her on the Depakote and we can monitor the renal functio n and edema over the next few days. I would also hold diuretics at this time. Keep on low-sodium diet. If the edema gets worse or if renal function worsens then we can consider alternate therapy. (3) Neurodegenerative cognitive impairment: Status: Acute Code(s): G31.9 - Degenerative disease of nervous system, unspecified (4) Bipolar disorder, most recent episode depressed: Status: Acute Code(s): F31.30 - Bipolar disorder, current episode depressed, mild or moderate severity, unspecified Plan 12/16:? restart prior regimen.? titrate wellbutrin to 300 mg daily and vraylar to 4.5 mg daily.? monitor for improvement, T/C addition of mood stabilizer, as pt c/o mood swings even with previous regimen.? antibx for UTI. 12/17:? increase vraylar to 4.5 mg daily as of tomorrow.? otherwise continue current mgmt.? depressed. 12/18:? as of today, pt is back on regimen on which she was discharged from [facility].? give some days for improvement and stabilization, then T/C mood stabilizer. 12/19:? MoCA 17 today.? continue current mgmt. 12/20:? appears to have flipped into mg/hypomania overnight.? agreeable to start VPA 1000 mg QHS as of tonight.? hyperverbal, very busy with planning via telephone calls, hyper-intense and posisitve affect. 12/21:? slept 6.5 hours last night, slower today and less grandiose.? continue current mgmt.? contact court tomorrow to request a continuance. 12/22:? slept 6 hours, remains less manic than 12/20.? continue current mgmt.? contact court to request continuance.? labs scheduled for evening. 12/23:? less manic, improved sleep. No overt psychosis. rechecking HR, as it was elevated this AM. Pt denies chest pain, palpitations. 12/24:? remains hypomanic, adequate sleep.? wrist xray likely Fx; ortho consulted re mgmt.? check labs tomorrow. 12/25:? appreciate ortho consult and recs.? continue current mgmt, remains hypomanic.? labs this evening. 12/26:? VPA level 49.5, LFTs WNL.? minor anemia.? BUN 28.? increase VPA to 1250 QHS.? c/o consistent left flank pain; pelvic/lumbar xray to be ordered. 12/27: Continue current plan. 12/28: Continue current plan. 12/29:? continues hypomanic.? check labs tomorrow evening, 5 days after increasing VPA dosing.? c/o LLE swelling, with palpable cord, being investigated by hospitalist.? same for foul smelling vaginal D/C, most c/w BV.? also testing for NG TC due to sexual Hx and mg.? LLE U/S pending. 12/30:? STI testing neg, U/S NEG for DVT.? continue compression stockings.? + for BV, start course of flagyl.? continue psych regimen, check labs tonight.? continues hypomanic. 12/31: seen by renal for elevated BUN. no changes made to regimen due to c/o edema and elevated BUN. 01/01: BUN trended down slightly overnight. continue current mgmt per renal recs, observe for resolution of RADHA, felt to be related to recent use of diuretics, as well as edema, which may be more related to VPA. unclear at the moment. pt's preference is to DC VPA and initiate a trial of tegretol if edema is determined to be most likely from VPA. recheck labs tomorrow morning. 01/02: BUN 28 today, but Cr down to 0.93. per renal, this is a good sign of recovery renal fxn and we expect BUN to lag Cr in improvement. pt also reports decreased edema in her hands, agreeable to increase VPA to 1500 mg as of this evening. VPA levels 49.5 and 58.1 on 1250 mg QHS. 01/03: Continue current regimen and plans Reason for continued inpatient stay Substantial Risk for: rapid decompensation Time Spent With Patient Time: Total time managing care of this patient today ____ minutes.
[2023-01-03] MEDS: metroNIDAZOLE 500 MG TABLET PO ×2 (12:03→22:44)
[2023-01-03 20:21] VITALS: BP 134/75; PULSE 93; RESP 18; TEMP 36.5; O2SAT 100
[2023-01-03] MEDS: Divalproex Sodium ER 500 MG TAB.ER.24H 1500 MG PO (22:44)
[2023-01-03] MEDS: Melatonin 3 MG TABLET PO (22:45)
[2023-01-03] MEDS: hydrOXYzine HCL 25 MG TABLET PO (22:49)
[2023-01-04 08:06] VITALS: BP 139/67; PULSE 83; RESP 16; TEMP 36.3; O2SAT 100
[2023-01-04] MEDS: Cariprazine HCl 1.5 MG CAPSULE 4.5 MG PO (08:19)
[2023-01-04] MEDS: buPROPion HCl XL 300 MG TAB.ER.24H PO (08:19)
--- NOTE | 2023-01-04 09:12 | HO.PSYCHPN ---
Subjective Subjective Date of Service: 01/04/23 Reason For Visit: mg Subjective Notes: Conditional Voluntary Healthcare Proxy: No Guardianship: No Medical Problems Affecting Mental Status: No Interim History: Patient was seen and discussed in rounds. Records and plans were reviewed. She has been active, social and interacting with others. She is attending groups. She is pleasant and cooperative. Eating and sleeping well. She is compliant. No complaints or side effects. No changes were made today Medication Compliance: Yes Side effects from medications: No Review of Systems Review of Systems Yes all other systems are reviewed and are negative Mental Status Exam Mental Status Exam Narrative: adequate hygiene, dressed in street clothes, cooperative, no PMA/PMR. speech incr rate, incr amount, nml loudness, nml tone, decr latency. thoughts linear and digressive. affect full range, hyper-intense, non-labile. no SI/SIBI/HI/AVH expressed. Diagnostics Vital Signs (24Hr): Vital Signs - 24 hr 01/03/23 20:21 01/04/23 08:06 Temperature 97.7 F 97.3 F Pulse Rate 93 83 Respiratory Rate 18 16 Blood Pressure 134/75 139/67 Pulse Oximetry 100 100 Oxygen Delivery Method Room Air Room Air BMI result Body Mass Index 27.2 Labs 12/30/22 20:17 01/02/23 08:42 Labs: Laboratory Results - last 48 hr 01/02/23 08:42 Sodium 138 Potassium 4.6 Chloride 102 Carbon Dioxide 26 Anion Gap 15 BUN 28 H Creatinine 0.93 Estim Creat Clear Calc 53.5 Estimated GFR 60 Random Glucose 87 Calcium 9.5 Imaging Radiology Impressions: ITS Impressions Head CT 12/13/22 19:23 IMPRESSION: No evidence of acute intracranial hemorrhage or edematous territorial infarction. Wrist X-Ray 12/22/22 15:00 IMPRESSION: Question nondisplaced ulnar styloid fracture. Findings will be communicated by the [place] work flow chiropractic neurologist Hip/Pelvis X-Ray 12/26/22 13:50 IMPRESSION: No abnormality is seen in the hip. 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 Venous Duplex 12/29/22 14:10 IMPRESSION: No evidence for deep venous thrombosis in the visualized veins of the left lower extremity. Duplex Scan Lower Extremity Artery 12/29/22 14:20 IMPRESSION: Widely patent flow throughout the left lower extremity Medications Medications Current Medications Acetaminophen (Acetaminophen 325 Mg Tablet) 650 mg PO Q6H PRN PRN Reason: Headache/Pain Mild Scale (1-3) Last Admin: 01/03/23 22:45 Dose: 650 mg Al Hydroxide/Mg Hydroxide (Magnesium Hydrox/Alum Hydrox 30 Ml Oral.Susp) 30 ml PO Q6H PRN PRN Reason: Heartburn/Nausea Bupropion HCl (Bupropion Hcl Xl 300 Mg Tab.Er.24h) 300 mg PO DAILY [facility] Last Admin: 01/04/23 08:19 Dose: 300 mg Cariprazine (Cariprazine Hcl 1.5 Mg Capsule) 4.5 mg PO DAILY [facility] Last Admin: 01/04/23 08:19 Dose: 4.5 mg Divalproex Sodium (Divalproex Sodium Er 500 Mg Tab.Er.24h) 1,500 mg PO BEDTIME [facility] Last Admin: 01/03/23 22:44 Dose: 1,500 mg Hydroxyzine HCl (Hydroxyzine Hcl 25 Mg Tablet) 25 mg PO Q6H PRN PRN Reason: Anxiety Last Admin: 01/03/23 22:49 Dose: 25 mg Magnesium Hydroxide (Milk Of Magnesia 30 Ml Oral.Susp) 30 ml PO DAILY PRN PRN Reason: Constipation Melatonin (Melatonin 3 Mg Tablet) 3 mg PO BEDTIME [facility] Last Admin: 01/03/23 22:45 Dose: 3 mg Metronidazole (Metronidazole 500 Mg Tablet) 500 mg PO Q12H [facility] Stop: 01/05/23 23:16 Last Admin: 01/03/23 22:44 Dose: 500 mg Trazodone HCl (Trazodone Hcl 50 Mg Tablet) 50 mg PO BEDTIME MRX1 PRN PRN Reason: Insomnia Last Admin: 12/22/22 21:07 Dose: 50 mg Allergies Allergies Allergy/AdvReac Type Severity Reaction Status Date / Time No Known Allergies Allergy Verified 12/13/22 17:46 Assessment & Plan Assessment & Plan (1) Bilateral lower extremity edema: Status: Acute Code(s): R60.0 - Localized edema Assessment and Plan: Bilateral lower extremity edema. No significant proteinuria on urinalysis. No canal appears normal with a serum albumin of 3.8. No cardiac history. Edema might be related to use of Depakote. Current issues asymptomatic. Overall she feels that Depakote is helping her and she is not interested in changing the therapy. I would suggest to keep her on the Depakote and we can monitor the renal function and edema over the next few days. I would also hold diuretics at this time. Keep on low-sodium diet. If the edema gets worse or if renal function worsens then we can consider alternate therapy. (2) RADHA (acute kidney injury): Status: Acute Code(s): N17.9 - Acute kidney failure, unspecified Assessment and Plan: RADHA most likely due to hypoperfusion from use of diuretics. Different diagnosis would include obstructive uropathy. Recent urinalysis was benign therefore or glomerular nephritis or interstitial disease seem unlikely I would suggest to keep her on the Depakote and we can monitor the renal function and edema over the next few days. I would also hold diuretics at this time. Keep on low-sodium diet. If the edema gets worse or if renal function worsens then we can consider alternate therapy. (3) Neurodegenerative cognitive impairment: Status: Acute Code(s): G31.9 - Degenerative disease of nervous system, unspecified (4) Bipolar disorder, most recent episode depressed: Status: Acute Code(s): F31.30 - Bipolar disorder, current episode depressed, mild or moderate severity, unspecified Plan 12/16:? restart prior regimen.? titrate wellbutrin to 300 mg daily and vraylar to 4.5 mg daily.? monitor for improvement, T/C addition of mood stabilizer, as pt c/o mood swings even with previous regimen.? antibx for UTI. 12/17:? increase vraylar to 4.5 mg daily as of tomorrow.? otherwise continue current mgmt.? depressed. 12/18:? as of today, pt is back on regimen on which she was discharged from [facility].? give some days for improvement and stabilization, then T/C mood stabilizer. 12/19:? MoCA 17 today.? continue current mgmt. 12/20:? appears to have flipped into mg/hypomania overnight.? agreeable to start VPA 1000 mg QHS as of tonight.? hyperverbal, very busy with planning via telephone calls, hyper-intense and posisitve affect. 12/21:? slept 6.5 hours last night, slower today and less grandiose.? continue current mgmt.? contact court tomorrow to request a continuance. 12/22:? slept 6 hours, remains less manic than 12/20.? continue current mgmt.? contact court to request continuance.? labs scheduled for evening. 12/23:? less manic, improved sleep. No overt psychosis. rechecking HR, as it was elevated this AM. Pt denies chest pain, palpitations. 12/24:? remains hypomanic, adequate sleep.? wrist xray likely Fx; ortho consulted re mgmt.? check labs tomorrow. 12/25:? appreciate ortho consult and recs.? continue current mgmt, remains hypomanic.? labs this evening. 12/26:? VPA level 49.5, LFTs WNL.? minor anemia.? BUN 28.? increase VPA to 1250 QHS.? c/o consistent left flank pain; pelvic/lumbar xray to be ordered. 12/27: Continue current plan. 12/28: Continue current plan. 12/29:? continues hypomanic.? check labs tomorrow evening, 5 days after increasing VPA dosing.? c/o LLE swelling, with palpable cord, being investigated by hospitalist.? same for foul smelling vaginal D/C, most c/w BV.? also testing for NG TC due to sexual Hx and mg.? LLE U/S pending. 12/30:? STI testing neg, U/S NEG for DVT.? continue compression stockings.? + for BV, start course of flagyl.? continue psych regimen, check labs tonight.? continues hypomanic. 12/31: seen by renal for elevated BUN. no changes made to regimen due to c/o edema and elevated BUN. 01/01: BUN trended down slightly overnight. continue current mgmt per renal recs, observe for resolution of RADHA, felt to be related to recent use of diuretics, as well as edema, which may be more related to VPA. unclear at the moment. pt's preference is to DC VPA and initiate a trial of tegretol if edema is determined to be most likely from VPA. recheck labs tomorrow morning. 01/02: BUN 28 today, but Cr down to 0.93. per renal, this is a good sign of recovery renal fxn and we expect BUN to lag Cr in improvement. pt also reports decreased edema in her hands, agreeable to increase VPA to 1500 mg as of this evening. VPA levels 49.5 and 58.1 on 1250 mg QHS. 01/03: Continue current regimen and plans 01/04: Continue current plans and regimen Reason for continued inpatient stay Substantial Risk for: rapid decompensation Time Spent With Patient Time: Total time managing care of this patient today ____ minutes.
[2023-01-04] MEDS: Acetaminophen 325 MG TABLET 650 MG PO ×3 (10:24→22:04)
[2023-01-04] MEDS: metroNIDAZOLE 500 MG TABLET PO ×2 (12:35→22:03)
[2023-01-04 17:25] VITALS: BP 124/77; PULSE 85; TEMP 36.4
[2023-01-04] MEDS: Melatonin 3 MG TABLET PO (22:03)
[2023-01-04] MEDS: Divalproex Sodium ER 500 MG TAB.ER.24H 1500 MG PO (22:04)
[2023-01-05] MEDS: Acetaminophen 325 MG TABLET 650 MG PO ×3 (05:17→19:14)
[2023-01-05 08:33] VITALS: BP 133/81; PULSE 84; RESP 16; TEMP 36.6; O2SAT 97
[2023-01-05] MEDS: buPROPion HCl XL 300 MG TAB.ER.24H PO (08:41)
[2023-01-05] MEDS: Cariprazine HCl 1.5 MG CAPSULE 4.5 MG PO (08:41)
--- NOTE | 2023-01-05 10:48 | P.PNPSI_ITS ---
Subjective Subjective Date of Service: 01/05/23 Reason For Visit: mg Subjective Notes: Conditional Voluntary Healthcare Proxy: No Guardianship: No Medical Problems Affecting Mental Status: No Interim History: Patient was seen and discussed in rounds. Records and plans were reviewed. She has been stable and is doing better. She is active, social and out in the milieu. She is safe here. Eating and sleeping adequately. Some back pain complaints. No changes were made today Medication Compliance: Yes Side effects from medications: No Review of Systems Review of Systems Back pain Yes all other systems are reviewed and are negative Mental Status Exam Mental Status Exam Narrative: In today's visit she is alert, oriented and pleasant. Normal speech. Moderate eye contact. Affect is appropriate and varied. No signs of psychosis. No SI. Cognitively intact. Judgment is intact Diagnostics Vital Signs (24Hr): Vital Signs - 24 hr 01/04/23 17:25 01/05/23 08:33 Temperature 97.6 F 97.9 F Pulse Rate 85 84 Respiratory Rate 16 Blood Pressure 124/77 133/81 Pulse Oximetry 97 Oxygen Delivery Method Room Air BMI result Body Mass Index 27.2 Labs 12/30/22 20:17 01/02/23 08:42 Imaging Radiology Impressions: ITS Impressions Head CT 12/13/22 19:23 IMPRESSION: No evidence of acute intracranial hemorrhage or edematous territorial infarction. Wrist X-Ray 12/22/22 15:00 IMPRESSION: Question nondisplaced ulnar styloid fracture. Findings will be communicated by the [place] work flow braider setter Hip/Pelvis X-Ray 12/26/22 13:50 IMPRESSION: No abnormality is seen in the hip. 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 Venous Duplex 12/29/22 14:10 IMPRESSION: No evidence for deep venous thrombosis in the visualized veins of the left lower extremity. Duplex Scan Lower Extremity Artery 12/29/22 14:20 IMPRESSION: Widely patent flow throughout the left lower extremity Medications Medications Current Medications Acetaminophen (Acetaminophen 325 Mg Tablet) 650 mg PO Q6H PRN PRN Reason: Headache/Pain Mild Scale (1-3) Last Admin: 01/05/23 05:17 Dose: 650 mg Al Hydroxide/Mg Hydroxide (Magnesium Hydrox/Alum Hydrox 30 Ml Oral.Susp) 30 ml PO Q6H PRN PRN Reason: Heartburn/Nausea Bupropion HCl (Bupropion Hcl Xl 300 Mg Tab.Er.24h) 300 mg PO DAILY [facility] Last Admin: 01/05/23 08:41 Dose: 300 mg Cariprazine (Cariprazine Hcl 1.5 Mg Capsule) 4.5 mg PO DAILY [facility] Last Admin: 01/05/23 08:41 Dose: 4.5 mg Divalproex Sodium (Divalproex Sodium Er 500 Mg Tab.Er.24h) 1,500 mg PO BEDTIME [facility] Last Admin: 01/04/23 22:04 Dose: 1,500 mg Hydroxyzine HCl (Hydroxyzine Hcl 25 Mg Tablet) 25 mg PO Q6H PRN PRN Reason: Anxiety Last Admin: 01/03/23 22:49 Dose: 25 mg Magnesium Hydroxide (Milk Of Magnesia 30 Ml Oral.Susp) 30 ml PO DAILY PRN PRN Reason: Constipation Melatonin (Melatonin 3 Mg Tablet) 3 mg PO BEDTIME [facility] Last Admin: 01/04/23 22:03 Dose: 3 mg Metronidazole (Metronidazole 500 Mg Tablet) 500 mg PO Q12H [facility] Stop: 01/05/23 23:16 Last Admin: 01/04/23 22:03 Dose: 500 mg Trazodone HCl (Trazodone Hcl 50 Mg Tablet) 50 mg PO BEDTIME MRX1 PRN PRN Reason: Insomnia Last Admin: 12/22/22 21:07 Dose: 50 mg Allergies Allergies Allergy/AdvReac Type Severity Reaction Status Date / Time No Known Allergies Allergy Verified 12/13/22 17:46 Assessment & Plan Assessment & Plan (1) Bilateral lower extremity edema: Status: Acute Code(s): R60.0 - Localized edema Assessment and Plan: Bilateral lower extremity edema. No significant proteinuria on urinalysis. No canal appears normal with a serum albumin of 3.8. No cardiac history. Edema might be related to use of Depakote. Current issues asymptomatic. Overall she feels that Depakote is helping her and she is not interested in changing the therapy. I would suggest to keep her on the Depakote and we can monitor the renal function and edema over the next few days. I would also hold diuretics at this time. Keep on low-sodium diet. If the edema gets worse or if renal function worsens then we can consider alternate therapy. (2) RADHA (acute kidney injury): Status: Acute Code(s): N17.9 - Acute kidney failure, unspecified Assessment and Plan: RADHA most likely due to hypoperfusion from use of diuretics. Different diagnosis would include obstructive uropathy. Recent urinalysis was benign therefore or glomerular nephritis or interstitial disease seem unlikely I would suggest to keep her on the Depakote and we can monitor the renal function and edema over the next few days. I would also hold diuretics at this time. Keep on low-sodium diet. If the edema gets worse or if renal function worsens then we can consider alternate therapy. (3) Neurodegenerative cognitive impairment: Status: Acute Code(s): G31.9 - Degenerative disease of nervous system, unspecified (4) Bipolar disorder, most recent episode depressed: Status: Acute Code(s): F31.30 - Bipolar disorder, current episode depressed, mild or moderate severity, unspecified Plan 12/16:? restart prior regimen.? titrate wellbutrin to 300 mg daily and vraylar to 4.5 mg daily.? monitor for improvement, T/C addition of mood stabilizer, as pt c/o mood swings even with previous regimen.? antibx for UTI. 12/17:? increase vraylar to 4.5 mg daily as of tomorrow.? otherwise continue current mgmt.? depressed. 12/18:? as of today, pt is back on regimen on which she was discharged from [facility].? give some days for improvement and stabilization, then T/C mood stabilizer. 12/19:? MoCA 17 today.? continue current mgmt. 12/20:? appears to have flipped into mg/hypomania overnight.? agreeable to start VPA 1000 mg QHS as of tonight.? hyperverbal, very busy with planning via telephone calls, hyper-intense and posisitve affect. 12/21:? slept 6.5 hours last night, slower today and less grandiose.? continue current mgmt.? contact court tomorrow to request a continuance. 12/22:? slept 6 hours, remains less manic than 12/20.? continue current mgmt.? contact court to request continuance.? labs scheduled for evening. 12/23:? less manic, improved sleep. No overt psychosis. rechecking HR, as it was elevated this AM. Pt denies chest pain, palpitations. 12/24:? remains hypomanic, adequate sleep.? wrist xray likely Fx; ortho consulted re mgmt.? check labs tomorrow. 12/25:? appreciate ortho consult and recs.? continue current mgmt, remains hypomanic.? labs this evening. 12/26:? VPA level 49.5, LFTs WNL.? minor anemia.? BUN 28.? increase VPA to 1250 QHS.? c/o consistent left flank pain; pelvic/lumbar xray to be ordered. 12/27: Continue current plan. 12/28: Continue current plan. 12/29:? continues hypomanic.? check labs tomorrow evening, 5 days after increasing VPA dosing.? c/o LLE swelling, with palpable cord, being investigated by hospitalist.? same for foul smelling vaginal D/C, most c/w BV.? also testing for NG TC due to sexual Hx and mg.? LLE U/S pending. 12/30:? STI testing neg, U/S NEG for DVT.? continue compression stockings.? + for BV, start course of flagyl.? continue psych regimen, check labs tonight.? continues hypomanic. 12/31: seen by renal for elevated BUN. no changes made to regimen due to c/o edema and elevated BUN. 01/01: BUN trended down slightly overnight. continue current mgmt per renal recs, observe for resolution of RADHA, felt to be related to recent use of diuretics, as well as edema, which may be more related to VPA. unclear at the moment. pt's preference is to DC VPA and initiate a trial of tegretol if edema is determined to be most likely from VPA. recheck labs tomorrow morning. 01/02: BUN 28 today, but Cr down to 0.93. per renal, this is a good sign of recovery renal fxn and we expect BUN to lag Cr in improvement. pt also reports decreased edema in her hands, agreeable to increase VPA to 1500 mg as of this evening. VPA levels 49.5 and 58.1 on 1250 mg QHS. 01/03: Continue current regimen and plans 01/04: Continue current plans and regimen 01/05: Continue current regimen and plans Reason for continued inpatient stay Substantial Risk for: rapid decompensation Time Spent With Patient Time: Total time managing care of this patient today ____ minutes.
[2023-01-05] MEDS: metroNIDAZOLE 500 MG TABLET PO ×2 (11:17→22:14)
[2023-01-05 18:00] VITALS: BP 110/73; PULSE 94; RESP 18; TEMP 36.6; O2SAT 96
[2023-01-05] MEDS: Melatonin 3 MG TABLET PO (21:01)
[2023-01-05] MEDS: Divalproex Sodium ER 500 MG TAB.ER.24H 1500 MG PO (21:01)
[2023-01-06] MEDS: Acetaminophen 325 MG TABLET 650 MG PO ×2 (04:01→18:55)
[2023-01-06] MEDS: Cariprazine HCl 1.5 MG CAPSULE 4.5 MG PO (08:22)
[2023-01-06] MEDS: buPROPion HCl XL 300 MG TAB.ER.24H PO (08:22)
[2023-01-06 08:24] VITALS: BP 146/71; PULSE 80; RESP 18; TEMP 36.4; O2SAT 97
--- NOTE | 2023-01-06 15:42 | HO.PSYCHPN ---
Subjective Subjective Date of Service: 01/06/23 Reason For Visit: mg Interim History: calm, cooperative. perhaps a bit less ebullient and hyper-verbal than last week. agreeable to check labs tomorrow evening. per staff, attending groups, social. says she sleeps well. less intrusive, more mellow. Mental Status Exam Mental Status Exam Narrative: adequate hygiene, dressed in street clothes, cooperative, no PMA/PMR. speech incr rate, incr amount, nml loudness, nml tone, decr latency. thoughts linear and logical. affect full range, normo-intense, non-labile. no SI/SIBI/HI/AVH expressed. Diagnostics Vital Signs (24Hr): Vital Signs - 24 hr 01/05/23 18:00 01/06/23 08:24 Temperature 98 F 97.6 F Pulse Rate 94 80 Respiratory Rate 18 18 Blood Pressure 110/73 146/71 H Pulse Oximetry 96 97 Oxygen Delivery Method Room Air Room Air BMI result Body Mass Index 27.2 Labs 12/30/22 20:17 01/02/23 08:42 Imaging Radiology Impressions: ITS Impressions Head CT 12/13/22 19:23 IMPRESSION: No evidence of acute intracranial hemorrhage or edematous territorial infarction. Wrist X-Ray 12/22/22 15:00 IMPRESSION: Question nondisplaced ulnar styloid fracture. Findings will be communicated by the [place] work flow executive vice president and chief operating officer Hip/Pelvis X-Ray 12/26/22 13:50 IMPRESSION: No abnormality is seen in the hip. 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 Venous Duplex 12/29/22 14:10 IMPRESSION: No evidence for deep venous thrombosis in the visualized veins of the left lower extremity. Duplex Scan Lower Extremity Artery 12/29/22 14:20 IMPRESSION: Widely patent flow throughout the left lower extremity Medications Medications Current Medications Acetaminophen (Acetaminophen 325 Mg Tablet) 650 mg PO Q6H PRN PRN Reason: Headache/Pain Mild Scale (1-3) Last Admin: 01/06/23 04:01 Dose: 650 mg Al Hydroxide/Mg Hydroxide (Magnesium Hydrox/Alum Hydrox 30 Ml Oral.Susp) 30 ml PO Q6H PRN PRN Reason: Heartburn/Nausea Bupropion HCl (Bupropion Hcl Xl 300 Mg Tab.Er.24h) 300 mg PO DAILY [facility] Last Admin: 01/06/23 08:22 Dose: 300 mg Cariprazine (Cariprazine Hcl 1.5 Mg Capsule) 4.5 mg PO DAILY [facility] Last Admin: 01/06/23 08:22 Dose: 4.5 mg Divalproex Sodium (Divalproex Sodium Er 500 Mg Tab.Er.24h) 1,500 mg PO BEDTIME [facility] Last Admin: 01/05/23 21:01 Dose: 1,500 mg Hydroxyzine HCl (Hydroxyzine Hcl 25 Mg Tablet) 25 mg PO Q6H PRN PRN Reason: Anxiety Last Admin: 01/03/23 22:49 Dose: 25 mg Magnesium Hydroxide (Milk Of Magnesia 30 Ml Oral.Susp) 30 ml PO DAILY PRN PRN Reason: Constipation Melatonin (Melatonin 3 Mg Tablet) 3 mg PO BEDTIME [facility] Last Admin: 01/05/23 21:01 Dose: 3 mg Trazodone HCl (Trazodone Hcl 50 Mg Tablet) 50 mg PO BEDTIME MRX1 PRN PRN Reason: Insomnia Last Admin: 12/22/22 21:07 Dose: 50 mg Allergies Allergies Allergy/AdvReac Type Severity Reaction Status Date / Time No Known Allergies Allergy Verified 12/13/22 17:46 Assessment & Plan Assessment & Plan (1) Bilateral lower extremity edema: Status: Acute Code(s): R60.0 - Localized edema Assessment and Plan: Bilateral lower extremity edema. No significant proteinuria on urinalysis. No canal appears normal with a serum albumin of 3.8. No cardiac history. Edema might be related to use of Depakote. Current issues asymptomatic. Overall she feels that Depakote is helping her and she is not interested in changing the therapy. I would suggest to keep her on the Depakote and we can monitor the renal function and edema over the next few days. I would also hold diuretics at this time. Keep on low-sodium diet. If the edema gets worse or if renal function worsens then we can consider alternate therapy. (2) RADHA (acute kidney injury): Status: Acute Code(s): N17.9 - Acute kidney failure, unspecified Assessment and Plan: RADHA most likely due to hypoperfusion from use of diuretics. Different diagnosis would include obstructive uropathy. Recent urinalysis was benign therefore or glomerular nephritis or interstitial disease seem unlikely I would suggest to keep her on the Depakote and we can monitor the renal function and edema over the next few days. I would also hold diuretics at this time. Keep on low-sodium diet. If the edema gets worse or if renal function worsens then we can consider alternate therapy. (3) Neurodegenerative cognitive impairment: Status: Acute Code(s): G31.9 - Degenerative disease of nervous system, unspecified (4) Bipolar disorder, most recent episode depressed: Status: Acute Code(s): F31.30 - Bipolar disorder, current episode depressed, mild or moderate severity, unspecified Plan 12/16:? restart prior regimen.? titrate wellbutrin to 300 mg daily and vraylar to 4.5 mg daily.? monitor for improvement, T/C addition of mood stabilizer, as pt c/o mood swings even with previous regimen.? antibx for UTI. 12/17:? increase vraylar to 4.5 mg daily as of tomorrow.? otherwise continue current mgmt.? depressed. 12/18:? as of today, pt is back on regimen on which she was discharged from [facility].? give some days for improvement and stabilization, then T/C mood stabilizer. 12/19:? MoCA 17 today.? continue current mgmt. 12/20:? appears to have flipped into mg/hypomania overnight.? agreeable to start VPA 1000 mg QHS as of tonight.? hyperverbal, very busy with planning via telephone calls, hyper-intense and posisitve affect. 12/21:? slept 6.5 hours last night, slower today and less grandiose.? continue current mgmt.? contact court tomorrow to request a continuance. 12/22:? slept 6 hours, remains less manic than 12/20.? continue current mgmt.? contact court to request continuance.? labs scheduled for evening. 12/23:? less manic, improved sleep. No overt psychosis. rechecking HR, as it was elevated this AM. Pt denies chest pain, palpitations. 12/24:? remains hypomanic, adequate sleep.? wrist xray likely Fx; ortho consulted re mgmt.? check labs tomorrow. 12/25:? appreciate ortho consult and recs.? continue current mgmt, remains hypomanic.? labs this evening. 12/26:? VPA level 49.5, LFTs WNL.? minor anemia.? BUN 28.? increase VPA to 1250 QHS.? c/o consistent left flank pain; pelvic/lumbar xray to be ordered. 12/27: Continue current plan. 12/28: Continue current plan. 12/29:? continues hypomanic.? check labs tomorrow evening, 5 days after increasing VPA dosing.? c/o LLE swelling, with palpable cord, being investigated by hospitalist.? same for foul smelling vaginal D/C, most c/w BV.? also testing for NG TC due to sexual Hx and mg.? LLE U/S pending. 12/30:? STI testing neg, U/S NEG for DVT.? continue compression stockings.? + for BV, start course of flagyl.? continue psych regimen, check labs tonight.? continues hypomanic. 12/31: seen by renal for elevated BUN. no changes made to regimen due to c/o edema and elevated BUN. 01/01: BUN trended down slightly overnight. continue current mgmt per renal recs, observe for resolution of RADHA, felt to be related to recent use of diuretics, as well as edema, which may be more related to VPA. unclear at the moment. pt's preference is to DC VPA and initiate a trial of tegretol if edema is determined to be most likely from VPA. recheck labs tomorrow morning. 01/02: BUN 28 today, but Cr down to 0.93. per renal, this is a good sign of recovery renal fxn and we expect BUN to lag Cr in improvement. pt also reports decreased edema in her hands, agreeable to increase VPA to 1500 mg as of this evening. VPA levels 49.5 and 58.1 on 1250 mg QHS. 01/03: Continue current regimen and plans 01/04: Continue current plans and regimen 01/05: Continue current regimen and plans 01/06: continues to trend less manic. checks labs tomorrow dona. Reason for continued inpatient stay Substantial Risk for: inability to function and rapid decompensation Time Spent With Patient Time: Total time managing care of this patient today __25__ minutes.
[2023-01-06 19:55] VITALS: BP 125/75; PULSE 98; RESP 18; TEMP 36.6; O2SAT 98
[2023-01-06] MEDS: Divalproex Sodium ER 500 MG TAB.ER.24H 1500 MG PO (21:00)
[2023-01-06] MEDS: Melatonin 3 MG TABLET PO (21:26)
[2023-01-07] MEDS: Acetaminophen 325 MG TABLET 650 MG PO ×3 (04:50→18:23)
[2023-01-07 08:00] VITALS: BP 142/63; PULSE 78; RESP 20; TEMP 36.2; O2SAT 100
[2023-01-07] MEDS: buPROPion HCl XL 300 MG TAB.ER.24H PO (08:18)
[2023-01-07] MEDS: Cariprazine HCl 1.5 MG CAPSULE 4.5 MG PO (08:18)
--- NOTE | 2023-01-07 14:30 | P.PNPSI_ITS ---
Subjective Subjective Date of Service: 01/07/23 Reason For Visit: mg Interim History: doing well, no changes, labs tonight. per staff, meds and meals compliant. social. +ADLs. intrusive. visible. denies Sx. Mental Status Exam Mental Status Exam Narrative: adequate hygiene, dressed in street clothes, cooperative, no PMA/PMR. speech incr rate, incr amount, nml loudness, nml tone, decr latency. thoughts linear and logical. affect full range, normo-intense, non-labile. no SI/SIBI/HI/AVH expressed. Diagnostics Vital Signs (24Hr): Vital Signs - 24 hr 01/06/23 19:55 01/07/23 08:00 Temperature 97.8 F 97.2 F Pulse Rate 98 78 Respiratory Rate 18 20 Blood Pressure 125/75 142/63 H Pulse Oximetry 98 100 Oxygen Delivery Method Room Air Room Air BMI result Body Mass Index 27.2 Labs 12/30/22 20:17 01/02/23 08:42 Imaging Radiology Impressions: ITS Impressions Head CT 12/13/22 19:23 IMPRESSION: No evidence of acute intracranial hemorrhage or edematous territorial infarction. Wrist X-Ray 12/22/22 15:00 IMPRESSION: Question nondisplaced ulnar styloid fracture. Findings will be communicated by the [place] work flow agriscience technology instructor Hip/Pelvis X-Ray 12/26/22 13:50 IMPRESSION: No abnormality is seen in the hip. 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 Venous Duplex 12/29/22 14:10 IMPRESSION: No evidence for deep venous thrombosis in the visualized veins of the left lower extremity. Duplex Scan Lower Extremity Artery 12/29/22 14:20 IMPRESSION: Widely patent flow throughout the left lower extremity Medications Medications Current Medications Acetaminophen (Acetaminophen 325 Mg Tablet) 650 mg PO Q6H PRN PRN Reason: Headache/Pain Mild Scale (1-3) Last Admin: 01/07/23 11:30 Dose: 650 mg Al Hydroxide/Mg Hydroxide (Magnesium Hydrox/Alum Hydrox 30 Ml Oral.Susp) 30 ml PO Q6H PRN PRN Reason: Heartburn/Nausea Bupropion HCl (Bupropion Hcl Xl 300 Mg Tab.Er.24h) 300 mg PO DAILY [facility] Last Admin: 01/07/23 08:18 Dose: 300 mg Cariprazine (Cariprazine Hcl 1.5 Mg Capsule) 4.5 mg PO DAILY [facility] Last Admin: 01/07/23 08:18 Dose: 4.5 mg Divalproex Sodium (Divalproex Sodium Er 500 Mg Tab.Er.24h) 1,500 mg PO BEDTIME [facility] Last Admin: 01/06/23 21:00 Dose: 1,500 mg Hydroxyzine HCl (Hydroxyzine Hcl 25 Mg Tablet) 25 mg PO Q6H PRN PRN Reason: Anxiety Last Admin: 01/03/23 22:49 Dose: 25 mg Magnesium Hydroxide (Milk Of Magnesia 30 Ml Oral.Susp) 30 ml PO DAILY PRN PRN Reason: Constipation Melatonin (Melatonin 3 Mg Tablet) 3 mg PO BEDTIME [facility] Last Admin: 01/06/23 21:26 Dose: 3 mg Trazodone HCl (Trazodone Hcl 50 Mg Tablet) 50 mg PO BEDTIME MRX1 PRN PRN Reason: Insomnia Last Admin: 12/22/22 21:07 Dose: 50 mg Allergies Allergies Allergy/AdvReac Type Severity Reaction Status Date / Time No Known Allergies Allergy Verified 12/13/22 17:46 Assessment & Plan Assessment & Plan (1) Bilateral lower extremity edema: Status: Acute Code(s): R60.0 - Localized edema Assessment and Plan: Bilateral lower extremity edema. No significant proteinuria on urinalysis. No canal appears normal with a serum albumin of 3.8. No cardiac history. Edema might be related to use of Depakote. Current issues asymptomatic. Overall she feels that Depakote is helping her and she is not interested in changing the therapy. I would suggest to keep her on the Depakote and we can monitor the renal function and edema over the next few days. I would also hold diuretics at this time. Keep on low-sodium diet. If the edema gets worse or if renal function worsens then we can consider alternate therapy. (2) RADHA (acute kidney injury): Status: Acute Code(s): N17.9 - Acute kidney failure, unspecified Assessment and Plan: RADHA most likely due to hypoperfusion from use of diuretics. Different diagnosis would include obstructive uropathy. Recent urinalysis was benign therefore or glomerular nephritis or interstitial disease seem unlikely I would suggest to keep her on the Depakote and we can monitor the renal function and edema over the next few days. I would also hold diuretics at this time. Keep on low-sodium diet. If the edema gets worse or if renal function worsens then we can consider alternate therapy. (3) Neurodegenerative cognitive impairment: Status: Acute Code(s): G31.9 - Degenerative disease of nervous system, unspecified (4) Bipolar disorder, most recent episode depressed: Status: Acute Code(s): F31.30 - Bipolar disorder, current episode depressed, mild or moderate severity, unspecified Plan 12/16:? restart prior regimen.? titrate wellbutrin to 300 mg daily and vraylar to 4.5 mg daily.? monitor for improvement, T/C addition of mood stabilizer, as pt c/o mood swings even with previous regimen.? antibx for UTI. 12/17:? increase vraylar to 4.5 mg daily as of tomorrow.? otherwise continue current mgmt.? depressed. 12/18:? as of today, pt is back on regimen on which she was discharged from [facility].? give some days for improvement and stabilization, then T/C mood stabilizer. 12/19:? MoCA 17 today.? continue current mgmt. 12/20:? appears to have flipped into mg/hypomania overnight.? agreeable to start VPA 1000 mg QHS as of tonight.? hyperverbal, very busy with planning via telephone calls, hyper-intense and posisitve affect. 12/21:? slept 6.5 hours last night, slower today and less grandiose.? continue current mgmt.? contact court tomorrow to request a continuance. 12/22:? slept 6 hours, remains less manic than 12/20.? continue current mgmt.? contact court to request continuance.? labs scheduled for evening. 12/23:? less manic, improved sleep. No overt psychosis. rechecking HR, as it was elevated this AM. Pt denies chest pain, palpitations. 12/24:? remains hypomanic, adequate sleep.? wrist xray likely Fx; ortho consulted re mgmt.? check labs tomorrow. 12/25:? appreciate ortho consult and recs.? continue current mgmt, remains hypomanic.? labs this evening. 12/26:? VPA level 49.5, LFTs WNL.? minor anemia.? BUN 28.? increase VPA to 1250 QHS.? c/o consistent left flank pain; pelvic/lumbar xray to be ordered. 12/27: Continue current plan. 12/28: Continue current plan. 12/29:? continues hypomanic.? check labs tomorrow evening, 5 days after increasing VPA dosing.? c/o LLE swelling, with palpable cord, being investigated by hospitalist.? same for foul smelling vaginal D/C, most c/w BV.? also testing for NG TC due to sexual Hx and mg.? LLE U/S pending. 12/30:? STI testing neg, U/S NEG for DVT.? continue compression stockings.? + for BV, start course of flagyl.? continue psych regimen, check labs tonight.? continues hypomanic. 12/31: seen by renal for elevated BUN. no changes made to regimen due to c/o edema and elevated BUN. 01/01: BUN trended down slightly overnight. continue current mgmt per renal recs, observe for resolution of RADHA, felt to be related to recent use of diureti cs, as well as edema, which may be more related to VPA. unclear at the moment. pt's preference is to DC VPA and initiate a trial of tegretol if edema is determined to be most likely from VPA. recheck labs tomorrow morning. 01/02: BUN 28 today, but Cr down to 0.93. per renal, this is a good sign of recovery renal fxn and we expect BUN to lag Cr in improvement. pt also reports decreased edema in her hands, agreeable to increase VPA to 1500 mg as of this evening. VPA levels 49.5 and 58.1 on 1250 mg QHS. 01/03: Continue current regimen and plans 01/04: Continue current plans and regimen 01/05: Continue current regimen and plans 01/06: continues to trend less manic. checks labs tomorrow dona. 01/07: stable, check labs tonight. Reason for continued inpatient stay Substantial Risk for: inability to function and rapid decompensation Time Spent With Patient Time: Total time managing care of this patient today __25__ minutes.
[2023-01-07 19:50] VITALS: BP 136/74; PULSE 92; RESP 18; TEMP 36.6; O2SAT 98
[2023-01-07 20:31] LABS: MANUAL DIFF FLAG NO
[2023-01-07 20:32] LABS: Basophils Absolute Auto 0.1 X10*3/uL (0.0-0.2); Basophils Percent Auto 0.6 % (0-2); Eosinophils Absolute Auto 0.1 X10*3/uL (0.0-0.4); Hematocrit 37.1 % (37.0-47.0); Hemoglobin 11.9 g/dl (12.0-16.0); Imm Gran Abs Auto 0.03 X10*3/uL (0.00-0.03); Imm Gran Pct Auto 0.4 % (0.0-0.4); Lymphocytes Absolute Auto 2.1 X10*3/uL (1.2-4.9); Lymphocytes Percent Auto 25.6 % (20-40); Mean Corpuscular HGB Conc 32.1 g/dl (31.0-35.0); Mean Corpuscular Hemoglobin 29.3 pg (27.0-33.0); Mean Corpuscular Volume 91.4 fL (80.0-98.0); Mean Platelet Volume 9.3 fL (9.4-12.3); Monocytes Absolute Auto 0.9 X10*3/uL (0.1-1.2); Monocytes Percent Auto 11.2 % (2-11); Neutrophils Percent Auto 61.2 % (45-73); Platelet Count 369 X10*3/uL (160-400); Red Blood Count 4.06 X10*6/uL (4.20-5.50); Red Cell Distribution Width 14.3 % (11.0-16.0); White Blood Count 8.1 X10*3/uL (4.8-10.8)
[2023-01-07 20:47] LABS: Valproate 52.9 mcg/mL (50.0-100.0)
[2023-01-07 20:51] LABS: Alanine Aminotransferase 25 U/L (0-31); Albumin Level 3.7 g/dL (3.5-5.0); Alkaline Phosphatase 71 U/L (39-117); Anion Gap 12 (12-20); Aspartate Amino Transferase 27 U/L (5-31); Bilirubin Direct < 0.2 mg/dL (0.0-0.5); Bilirubin Total 0.1 mg/dL (0.0-1.0); Blood Urea Nitrogen 30 mg/dL (9-16); Carbon Dioxide 29 mmol/L (22-29); Chloride 103 mmol/L (96-108); Creatinine Clr Calc Pharmacy 42.1; Estimated Glomerular Filt Rate 45; Glucose Random 82 mg/dL (60-115); Potassium 4.9 mmol/L (3.3-5.1); Sodium 139 mmol/L (135-145); Total Protein 6.9 g/dL (6.5-8.0)
[2023-01-07] MEDS: Divalproex Sodium ER 500 MG TAB.ER.24H 1500 MG PO (21:34)
[2023-01-07] MEDS: Melatonin 3 MG TABLET PO (21:34)
[2023-01-08] MEDS: Acetaminophen 325 MG TABLET 650 MG PO ×3 (00:42→18:48)
[2023-01-08 06:00] VITALS: BP 128/88; PULSE 88; RESP 18; TEMP 36.7; O2SAT 98
[2023-01-08 07:00] VITALS: BMI 27.3
[2023-01-08] MEDS: Cariprazine HCl 1.5 MG CAPSULE 4.5 MG PO (08:21)
[2023-01-08] MEDS: buPROPion HCl XL 300 MG TAB.ER.24H PO (08:21)
--- NOTE | 2023-01-08 15:31 | P.PNPSI_ITS ---
Subjective Subjective Date of Service: 01/08/23 Reason For Visit: mg Interim History: eager to engage and discuss. labs reviewed with pt, pt agrees to increase VPA to 1750 for now. per staff, visible, social, intrusive. sleeping, eating, attending groups. up x2 overnight. VPA 52.9, BUN 30. Mental Status Exam Mental Status Exam Narrative: adequate hygiene, dressed in street clothes, cooperative, no PMA/PMR. speech incr rate, incr amount, nml loudness, nml tone, decr latency. thoughts linear and logical. affect full range, normo-intense, non-labile. no SI/SIBI/HI/AVH expressed. Diagnostics Vital Signs (24Hr): Vital Signs - 24 hr 01/07/23 19:50 01/08/23 06:00 Temperature 97.8 F 98.1 F Pulse Rate 92 88 Respiratory Rate 18 18 Blood Pressure 136/74 128/88 Pulse Oximetry 98 98 Oxygen Delivery Method Room Air Room Air BMI result Body Mass Index 27.3 Labs 01/07/23 20:24 01/07/23 20:24 Labs: Laboratory Results - last 48 hr 01/07/23 20:24 WBC 8.1 RBC 4.06 L Hgb 11.9 L Hct 37.1 MCV 91.4 MCH 29.3 MCHC 32.1 RDW 14.3 Plt Count 369 MPV 9.3 L Immature Gran % (Auto) 0.4 Neut % (Auto) 61.2 Lymph % (Auto) 25.6 [place] % (Auto) 11.2 H Eos % (Auto) 1.0 Baso % (Auto) 0.6 Lymph # (Auto) 2.1 [place] # (Auto) 0.9 Eos # (Auto) 0.1 Baso # (Auto) 0.1 Abs Immat Gran (auto) 0.03 Absolute Neuts (auto) 5.0 Absolute Nucleated RBC 0.000 Nucleated RBC % (auto) 0.0 Sodium 139 Potassium 4.9 Chloride 103 Carbon Dioxide 29 Anion Gap 12 BUN 30 H Creatinine 1.18 Estim Creat Clear Calc 42.1 Estimated GFR 45 Random Glucose 82 Calcium 9.0 Total Bilirubin 0.1 Direct Bilirubin < 0.2 AST 27 ALT 25 Alkaline Phosphatase 71 Total Protein 6.9 Albumin 3.7 Valproic Acid 52.9 Imaging Radiology Impressions: ITS Impressions Head CT 12/13/22 19:23 IMPRESSION: No evidence of acute intracranial hemorrhage or edematous territorial infarction. Wrist X-Ray 12/22/22 15:00 IMPRESSION: Question nondisplaced ulnar styloid fracture. Findings will be communicated by the [place] work [employer] department chair Hip/Pelvis X-Ray 12/26/22 13:50 IMPRESSION: No abnormality is seen in the hip. 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 Venous Duplex 12/29/22 14:10 IMPRESSION: No evidence for deep venous thrombosis in the visualized veins of the left lower extremity. Duplex Scan Lower Extremity Artery 12/29/22 14:20 IMPRESSION: Widely patent flow throughout the left lower extremity Medications Medications Current Medications Acetaminophen (Acetaminophen 325 Mg Tablet) 650 mg PO Q6H PRN PRN Reason: Headache/Pain Mild Scale (1-3) Last Admin: 01/08/23 11:16 Dose: 650 mg Al Hydroxide/Mg Hydroxide (Magnesium Hydrox/Alum Hydrox 30 Ml Oral.Susp) 30 ml PO Q6H PRN PRN Reason: Heartburn/Nausea Bupropion HCl (Bupropion Hcl Xl 300 Mg Tab.Er.24h) 300 mg PO DAILY [facility] Last Admin: 01/08/23 08:21 Dose: 300 mg Cariprazine (Cariprazine Hcl 1.5 Mg Capsule) 4.5 mg PO DAILY [facility] Last Admin: 01/08/23 08:21 Dose: 4.5 mg Divalproex Sodium (Divalproex Sodium Er 250 Mg Tab.Er.24h) 1,750 mg PO BEDTIME [facility] Hydroxyzine HCl (Hydroxyzine Hcl 25 Mg Tablet) 25 mg PO Q6H PRN PRN Reason: Anxiety Last Admin: 01/03/23 22:49 Dose: 25 mg Magnesium Hydroxide (Milk Of Magnesia 30 Ml Oral.Susp) 30 ml PO DAILY PRN PRN Reason: Constipation Melatonin (Melatonin 3 Mg Tablet) 3 mg PO BEDTIME [facility] Last Admin: 01/07/23 21:34 Dose: 3 mg Trazodone HCl (Trazodone Hcl 50 Mg Tablet) 50 mg PO BEDTIME MRX1 PRN PRN Reason: Insomnia Last Admin: 12/22/22 21:07 Dose: 50 mg Allergies Allergies Allergy/AdvReac Type Severity Reaction Status Date / Time No Known Allergies Allergy Verified 12/13/22 17:46 Assessment & Plan Assessment & Plan (1) Bilateral lower extremity edema: Status: Acute Code(s): R60.0 - Localized edema Assessment and Plan: Bilateral lower extremity edema. No significant proteinuria on urinalysis. No canal appears normal with a serum albumin of 3.8. No cardiac history. Edema might be related to use of Depakote. Current issues asymptomatic. Overall she feels that Depakote is helping her and she is not interested in changing the therapy. I would suggest to keep her on the Depakote and we can monitor the renal function and edema over the next few days. I would also hold diuretics at this time. Keep on low-sodium diet. If the edema gets worse or if renal function worsens then we can consider alternate therapy. (2) RADHA (acute kidney injury): Status: Acute Code(s): N17.9 - Acute kidney failure, unspecified Assessment and Plan: RADHA most likely due to hypoperfusion from use of diuretics. Different diagnosis would include obstructive uropathy. Recent urinalysis was benign therefore or glomerular nephritis or interstitial disease seem unlikely I would suggest to keep her on the Depakote and we can monitor the renal function and edema over the next few days. I would also hold diuretics at this time. Keep on low-sodium diet. If the edema gets worse or if renal function worsens then we can consider alternate therapy. (3) Neurodegenerative cognitive impairment: Status: Acute Code(s): G31.9 - Degenerative disease of nervous system, unspecified (4) Bipolar disorder, most recent episode depressed: Status: Acute Code(s): F31.30 - Bipolar disorder, current episode depressed, mild or moderate severity, unspecified Plan 12/16:? restart prior regimen.? titrate wellbutrin to 300 mg daily and vraylar to 4.5 mg daily.? monitor for improvement, T/C addition of mood stabilizer, as pt c/o mood swings even with previous regimen.? antibx for UTI. 12/17:? increase vraylar to 4.5 mg daily as of tomorrow.? otherwise continue current mgmt.? depressed. 12/18:? as of today, pt is back on regimen on which she was discharged from [facility].? give some days for improvement and stabilization, then T/C mood stabilizer. 12/19:? MoCA 17 today.? continue current mgmt. 12/20:? appears to have flipped into mg/hypomania overnight.? agreeable to start VPA 1000 mg QHS as of tonight.? hyperverbal, very busy with planning via telephone calls, hyper-intense and posisitve affect. 12/21:? slept 6.5 hours last night, slower today and less grandiose.? continue current mgmt.? contact court tomorrow to request a continuance. 12/22:? slept 6 hours, remains less manic than 12/20.? continue current mgmt.? contact court to request continuance.? labs scheduled for evening. 12/23:? less manic, improved sleep. No overt psychosis. rechecking HR, as it was elevated this AM. Pt denies chest pain, palpitations. 12/24:? remains hypomanic, adequate sleep.? wrist xray likely Fx; ortho consulted re mgmt.? check labs tomorrow. 12/25:? appreciate ortho consult and recs.? continue current mgmt, remains hypomanic.? labs this evening. 12/26:? VPA level 49.5, LFTs WNL.? minor anemia.? BUN 28.? increase VPA to 1250 QHS.? c/o consistent left flank pain; pelvic/lumbar xray to be ordered. 12/27: Continue current plan. 12/28: Continue current plan. 12/29:? continues hypomanic.? check labs tomorrow evening, 5 days after increasing VPA dosing.? c/o LLE swelling, with palpable cord, being investigated by hospitalist.? same for foul smelling vaginal D/C, most c/w BV.? also testing for NG TC due to sexual Hx and mg.? LLE U/S pending. 12/30:? STI testing neg, U/S NEG for DVT.? continue compression stockings.? + for BV, start course of flagyl.? continue psych regimen, check labs tonight.? continues hypomanic. 12/31: seen by renal for elevated BUN. no changes made to regimen due to c/o edema and elevated BUN. 01/01: BUN trended down slightly overnight. continue current mgmt per renal recs, observe for resolution of RADHA, felt to be related to recent use of diuretics, as well as edema, which may be more related to VPA. unclear at the moment. pt's preference is to DC VPA and initiate a trial of tegretol if edema is determined to be most likely from VPA. recheck labs tomorrow morning. 01/02: BUN 28 today, but Cr down to 0.93. per renal, this is a good sign of recovery renal fxn and we expect BUN to lag Cr in improvement. pt also reports decreased edema in her hands, agreeable to increase VPA to 1500 mg as of this evening. VPA levels 49.5 and 58.1 on 1250 mg QHS. 01/03: Continue current regimen and plans 01/04: Continue current plans and regimen 01/05: Continue current regimen and plans 01/06: continues to trend less manic. checks labs tomorrow dona. 01/07: stable, check labs tonight. 01/08: VPA 52.9. BUN 30, otherwise unremarkable. increase VPA to 1750 as of tonight. follow renal fxn, consult with nephrology PRN. remains attenuated hypomanic. Reason for continued inpatient stay Substantial Risk for: inability to function and rapid decompensation Time Spent With Patient Time: Total time managing care of this patient today __25__ minutes.
[2023-01-08 20:00] VITALS: BP 118/60; PULSE 96; RESP 16; TEMP 36.6; O2SAT 97
[2023-01-08] MEDS: Melatonin 3 MG TABLET PO (22:08)
[2023-01-08] MEDS: Divalproex Sodium ER 250 MG TAB.ER.24H 1750 MG PO (22:09)
[2023-01-09] MEDS: Acetaminophen 325 MG TABLET 650 MG PO ×3 (05:41→22:11)
[2023-01-09 08:07] VITALS: BP 149/76; PULSE 82; RESP 17; TEMP 36.1; O2SAT 100
[2023-01-09] MEDS: Cariprazine HCl 1.5 MG CAPSULE 4.5 MG PO (08:34)
[2023-01-09] MEDS: buPROPion HCl XL 300 MG TAB.ER.24H PO (08:35)
--- NOTE | 2023-01-09 14:59 | P.PNPSI_ITS ---
Subjective Subjective Date of Service: 01/09/23 Reason For Visit: mg Interim History: calm, cooperative. appears more settled. review plan for the weekend, next lab draw, dispo. sleeping well, in a good mood. per staff, attending groups, taking meds, social, feeling well. Mental Status Exam Mental Status Exam Narrative: adequate hygiene, dressed in street clothes, cooperative, no PMA/PMR. speech incr rate, incr amount, nml loudness, nml tone, decr latency. thoughts linear and logical. affect full range, normo-intense, non-labile. no SI/SIBI/HI/AVH expressed. Diagnostics Vital Signs (24Hr): Vital Signs - 24 hr 01/08/23 20:00 01/09/23 08:07 Temperature 97.9 F 97 F Pulse Rate 96 82 Respiratory Rate 16 17 Blood Pressure 118/60 149/76 H Pulse Oximetry 97 100 Oxygen Delivery Method Room Air BMI result Body Mass Index 27.3 Labs 01/07/23 20:24 01/07/23 20:24 Labs: Laboratory Results - last 48 hr 01/07/23 20:24 WBC 8.1 RBC 4.06 L Hgb 11.9 L Hct 37.1 MCV 91.4 MCH 29.3 MCHC 32.1 RDW 14.3 Plt Count 369 MPV 9.3 L Immature Gran % (Auto) 0.4 Neut % (Auto) 61.2 Lymph % (Auto) 25.6 [place] % (Auto) 11.2 H Eos % (Auto) 1.0 Baso % (Auto) 0.6 Lymph # (Auto) 2.1 [place] # (Auto) 0.9 Eos # (Auto) 0.1 Baso # (Auto) 0.1 Abs Immat Gran (auto) 0.03 Absolute Neuts (auto) 5.0 Absolute Nucleated RBC 0.000 Nucleated RBC % (auto) 0.0 Sodium 139 Potassium 4.9 Chloride 103 Carbon Dioxide 29 Anion Gap 12 BUN 30 H Creatinine 1.18 Estim Creat Clear Calc 42.1 Estimated GFR 45 Random Glucose 82 Calcium 9.0 Total Bilirubin 0.1 Direct Bilirubin < 0.2 AST 27 ALT 25 Alkaline Phosphatase 71 Total Protein 6.9 Albumin 3.7 Valproic Acid 52.9 Imaging Radiology Impressions: ITS Impressions Head CT 12/13/22 19:23 IMPRESSION: No evidence of acute intracranial hemorrhage or edematous territorial infarction. Wrist X-Ray 12/22/22 15:00 IMPRESSION: Question nondisplaced ulnar styloid fracture. Findings will be communicated by the [place] [facility] insurance representative Hip/Pelvis X-Ray 12/26/22 13:50 IMPRESSION: No abnormality is seen in the hip. 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 Venous Duplex 12/29/22 14:10 IMPRESSION: No evidence for deep venous thrombosis in the visualized veins of the left lower extremity. Duplex Scan Lower Extremity Artery 12/29/22 14:20 IMPRESSION: Widely patent flow throughout the left lower extremity Medications Medications Current Medications Acetaminophen (Acetaminophen 325 Mg Tablet) 650 mg PO Q6H PRN PRN Reason: Headache/Pain Mild Scale (1-3) Last Admin: 01/09/23 12:27 Dose: 650 mg Al Hydroxide/Mg Hydroxide (Magnesium Hydrox/Alum Hydrox 30 Ml Oral.Susp) 30 ml PO Q6H PRN PRN Reason: Heartburn/Nausea Bupropion HCl (Bupropion Hcl Xl 300 Mg Tab.Er.24h) 300 mg PO DAILY [facility] Last Admin: 01/09/23 08:35 Dose: 300 mg Cariprazine (Cariprazine Hcl 1.5 Mg Capsule) 4.5 mg PO DAILY [facility] Last Admin: 01/09/23 08:34 Dose: 4.5 mg Divalproex Sodium (Divalproex Sodium Er 250 Mg Tab.Er.24h) 1,750 mg PO BEDTIME [facility] Last Admin: 01/08/23 22:09 Dose: 1,750 mg Hydroxyzine HCl (Hydroxyzine Hcl 25 Mg Tablet) 25 mg PO Q6H PRN PRN Reason: Anxiety Last Admin: 01/03/23 22:49 Dose: 25 mg Magnesium Hydroxide (Milk Of Magnesia 30 Ml Oral.Susp) 30 ml PO DAILY PRN PRN Reason: Constipation Melatonin (Melatonin 3 Mg Tablet) 3 mg PO BEDTIME [facility] Last Admin: 01/08/23 22:08 Dose: 3 mg Trazodone HCl (Trazodone Hcl 50 Mg Tablet) 50 mg PO BEDTIME MRX1 PRN PRN Reason: Insomnia Last Admin: 12/22/22 21:07 Dose: 50 mg Allergies Allergies Allergy/AdvReac Type Severity Reaction Status Date / Time No Known Allergies Allergy Verified 12/13/22 17:46 Assessment & Plan Assessment & Plan (1) Bilateral lower extremity edema: Status: Acute Code(s): R60.0 - Localized edema Assessment and Plan: Bilateral lower extremity edema. No significant proteinuria on urinalysis. No canal appears normal with a serum albumin of 3.8. No cardiac history. Edema might be related to use of Depakote. Current issues asymptomatic. Overall she feels that Depakote is helping her and she is not interested in changing the therapy. I would suggest to keep her on the Depakote and we can monitor the renal function and edema over the next few days. I would also hold diuretics at this time. Keep on low-sodium diet. If the edema gets worse or if renal function worsens then we can consider alternate therapy. (2) RADHA (acute kidney injury): Status: Acute Code(s): N17.9 - Acute kidney failure, unspecified Assessment and Plan: RADHA most likely due to hypoperfusion from use of diuretics. Different diagnosis would include obstructive uropathy. Recent urinalysis was benign therefore or glomerular nephritis or interstitial disease seem unlikely I would suggest to keep her on the Depakote and we can monitor the renal function and edema over the next few days. I would also hold diuretics at this time. Keep on low-sodium diet. If the edema gets worse or if renal function worsens then we can consider alternate therapy. (3) Neurodegenerative cognitive impairment: Status: Acute Code(s): G31.9 - Degenerative disease of nervous system, unspecified (4) Bipolar disorder, most recent episode depressed: Status: Acute Code(s): F31.30 - Bipolar disorder, current episode depressed, mild or moderate severity, unspecified Plan 12/16:? restart prior regimen.? titrate wellbutrin to 300 mg daily and vraylar to 4.5 mg daily.? monitor for improvement, T/C addition of mood stabilizer, as pt c/o mood swings even with previous regimen.? antibx for UTI. 12/17:? increase vraylar to 4.5 mg daily as of tomorrow.? otherwise continue current mgmt.? depressed. 12/18:? as of today, pt is back on regimen on which she was discharged from [facility].? give some days for improvement and stabilization, then T/C mood stabilizer. 12/19:? MoCA 17 today.? continue current mgmt. 12/20:? appears to have flipped into mg/hypomania overnight.? agreeable to start VPA 1000 mg QHS as of tonight.? hyperverbal, very busy with planning via telephone calls, hyper-intense and posisitve affect. 12/21:? slept 6.5 hours last night, slower today and less grandiose.? continue current mgmt.? contact court tomorrow to request a continuance. 12/22:? slept 6 hours, remains less manic than 12/20.? continue current mgmt.? contact court to request continuance.? labs scheduled for evening. 12/23:? less manic, improved sleep. No overt psychosis. rechecking HR, as it was elevated this AM. Pt denies chest pain, palpitations. 12/24:? remains hypomanic, adequate sleep.? wrist xray likely Fx; ortho consulted re mgmt.? check labs tomorrow. 12/25:? appreciate ortho consult and recs.? continue current mgmt, remains hypomanic.? labs this evening. 12/26:? VPA level 49.5, LFTs WNL.? minor anemia.? BUN 28.? increase VPA to 1250 QHS.? c/o consistent left flank pain; pelvic/lumbar xray to be ordered. 12/27: Continue current plan. 12/28: Continue current plan. 12/29:? continues hypomanic.? check labs tomorrow evening, 5 days after increasing VPA dosing.? c/o LLE swelling, with palpable cord, being investigated by hospitalist.? same for foul smelling vaginal D/C, most c/w BV.? also testing for NG TC due to sexual Hx and mg.? LLE U/S pending. 12/30:? STI testing neg, U/S NEG for DVT.? continue compression stockings.? + for BV, start course of flagyl.? continue psych regimen, check labs tonight.? continues hypomanic. 12/31: seen by renal for elevated BUN. no changes made to regimen due to c/o edema and elevated BUN. 01/01: BUN trended down slightly overnight. continue current mgmt per renal recs, observe for resolution of RADHA, felt to be related to recent use of diuretics, as well as edema, which may be more related to VPA. unclear at the moment. pt's preference is to DC VPA and initiate a trial of tegretol if edema is determined to be most likely from VPA. recheck labs tomorrow morning. 01/02: BUN 28 today, but Cr down to 0.93. per renal, this is a good sign of recovery renal fxn and we expect BUN to lag Cr in improvement. pt also reports decreased edema in her hands, agreeable to increase VPA to 1500 mg as of this evening. VPA levels 49.5 and 58.1 on 1250 mg QHS. 01/03: Continue current regimen and plans 01/04: Continue current plans and regimen 01/05: Continue current regimen and plans 01/06: continues to trend less manic. checks labs tomorrow dona. 01/07: stable, check labs tonight. 01/08: VPA 52.9. BUN 30, otherwise unremarkable. increase VPA to 1750 as of tonight. follow renal fxn, consult with nephrology PRN. remains attenuated hypomanic. 01/09: no change in presentation. continue current mgmt. check labs next week. likely DC to respite next week. Reason for continued inpatient stay Substantial Risk for: inability to function and rapid decompensation Time Spent With Patient Time: Total time managing care of this patient today ____ minutes.
[2023-01-09 19:50] VITALS: BP 130/80; PULSE 100; RESP 18; TEMP 36.6; O2SAT 100
[2023-01-09] MEDS: Divalproex Sodium ER 250 MG TAB.ER.24H 1750 MG PO (21:42)
[2023-01-09] MEDS: Melatonin 3 MG TABLET PO (21:43)
[2023-01-10] MEDS: Acetaminophen 325 MG TABLET 650 MG PO ×3 (05:18→20:46)
[2023-01-10 07:50] VITALS: BP 110/61; PULSE 88; RESP 18; TEMP 36.4; O2SAT 98
[2023-01-10] MEDS: buPROPion HCl XL 300 MG TAB.ER.24H PO (08:00)
[2023-01-10] MEDS: Cariprazine HCl 1.5 MG CAPSULE 4.5 MG PO (08:00)
--- NOTE | 2023-01-10 16:23 | P.PNPSI_ITS ---
Subjective Subjective Date of Service: 01/10/23 Reason For Visit: mg Subjective Notes: Conditional Voluntary Interim History: met with patient. Discussed with Nursing. Overall is intrusive, and redirectable at times. Sleep okay. Leg edema has improved as per staff. With public relations writer martha. Reports he is doing well and before hospital was very depressed. Reports her plan will be discharged to respite then staying with family. Aware of Depakote level after the weekend. No med concerns. Feeling safe and supportive Medication Compliance: Yes Side effects from medications: No Attending Groups: Yes Review of Systems Acute medical concerns: No Review of Systems Review of Systems unremarkable Mental Status Exam Mental Status Exam Narrative: pleasant. Engaged. Fairly presented. Pressured speech. Largely organized. He is having. No SI. No HI. No overt psychosis. Insight and judgment okay Diagnostics Vital Signs (24Hr): Vital Signs - 24 hr 01/09/23 19:50 01/10/23 07:50 Temperature 97.8 F 97.6 F Pulse Rate 100 88 Respiratory Rate 18 18 Blood Pressure 130/80 110/61 Pulse Oximetry 100 98 Oxygen Delivery Method Room Air Room Air BMI result Body Mass Index 27.3 Labs 01/07/23 20:24 01/07/23 20:24 Imaging Radiology Impressions: ITS Impressions Head CT 12/13/22 19:23 IMPRESSION: No evidence of acute intracranial hemorrhage or edematous territorial infarction. Wrist X-Ray 12/22/22 15:00 IMPRESSION: Question nondisplaced ulnar styloid fracture. Findings will be communicated by the [place] work flow box closing machine operator Hip/Pelvis X-Ray 12/26/22 13:50 IMPRESSION: No abnormality is seen in the hip. 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 Venous Duplex 12/29/22 14:10 IMPRESSION: No evidence for deep venous thrombosis in the visualized veins of the left lower extremity. Duplex Scan Lower Extremity Artery 12/29/22 14:20 IMPRESSION: Widely patent flow throughout the left lower extremity Medications Medications Current Medications Acetaminophen (Acetaminophen 325 Mg Tablet) 650 mg PO Q6H PRN PRN Reason: Headache/Pain Mild Scale (1-3) Last Admin: 01/10/23 13:30 Dose: 650 mg Al Hydroxide/Mg Hydroxide (Magnesium Hydrox/Alum Hydrox 30 Ml Oral.Susp) 30 ml PO Q6H PRN PRN Reason: Heartburn/Nausea Bupropion HCl (Bupropion Hcl Xl 300 Mg Tab.Er.24h) 300 mg PO DAILY CARLOS Last Admin: 01/10/23 08:00 Dose: 300 mg Cariprazine (Cariprazine Hcl 1.5 Mg Capsule) 4.5 mg PO DAILY CARLOS Last Admin: 01/10/23 08:00 Dose: 4.5 mg Divalproex Sodium (Divalproex Sodium Er 250 Mg Tab.Er.24h) 1,750 mg PO BEDTIME CARLOS Last Admin: 01/09/23 21:42 Dose: 1,750 mg Hydroxyzine HCl (Hydroxyzine Hcl 25 Mg Tablet) 25 mg PO Q6H PRN PRN Reason: Anxiety Last Admin: 01/03/23 22:49 Dose: 25 mg Magnesium Hydroxide (Milk Of Magnesia 30 Ml Oral.Susp) 30 ml PO DAILY PRN PRN Reason: Constipation Melatonin (Melatonin 3 Mg Tablet) 3 mg PO BEDTIME CARLOS Last Admin: 01/09/23 21:43 Dose: 3 mg Trazodone HCl (Trazodone Hcl 50 Mg Tablet) 50 mg PO BEDTIME MRX1 PRN PRN Reason: Insomnia Last Admin: 12/22/22 21:07 Dose: 50 mg Allergies Allergies Allergy/AdvReac Type Severity Reaction Status Date / Time No Known Allergies Allergy Verified 12/13/22 17:46 Assessment & Plan Assessment & Plan (1) Bilateral lower extremity edema: Status: Acute Code(s): R60.0 - Localized edema Assessment and Plan: Bilateral lower extremity edema. No significant proteinuria on urinalysis. No canal appears normal with a serum albumin of 3.8. No cardiac history. Edema might be related to use of Depakote. Current issues asymptomatic. Overall she feels that Depakote is helping her and she is not interested in changing the therapy. I would suggest to keep her on the Depakote and we can monitor the renal function and edema over the next few days. I would also hold diuretics at this time. Keep on low-sodium diet. If the edema gets worse or if renal function worsens then we can consider alternate therapy. (2) RADHA (acute kidney injury): Status: Acute Code(s): N17.9 - Acute kidney failure, unspecified Assessment and Plan: RADHA most likely due to hypoperfusion from use of diuretics. Different diagnosis would include obstructive uropathy. Recent urinalysis was benign therefore or glomerular nephritis or interstitial disease seem unlikely I would suggest to keep her on the Depakote and we can monitor the renal function and edema over the next few days. I would also hold diuretics at this time. Keep on low-sodium diet. If the edema gets worse or if renal function worsens then we can consider alternate therapy. (3) Neurodegenerative cognitive impairment: Status: Acute Code(s): G31.9 - Degenerative disease of nervous system, unspecified (4) Bipolar disorder, most recent episode depressed: Status: Acute Code(s): F31.30 - Bipolar disorder, current episode depressed, mild or moderate severity, unspecified Plan 12/16:? restart prior regimen.? titrate wellbutrin to 300 mg daily and vraylar to 4.5 mg daily.? monitor for improvement, T/C addition of mood stabilizer, as pt c/o mood swings even with previous regimen.? antibx for UTI. 12/17:? increase vraylar to 4.5 mg daily as of tomorrow.? otherwise continue current mgmt.? depressed. 12/18:? as of today, pt is back on regimen on which she was discharged from [facility].? give some days for improvement and stabilization, then T/C mood stabilizer. 12/19:? MoCA 17 today.? continue current mgmt. 12/20:? appears to have flipped into mg/hypomania overnight.? agreeable to start VPA 1000 mg QHS as of tonight.? hyperverbal, very busy with planning via telephone calls, hyper-intense and posisitve affect. 12/21:? slept 6.5 hours last night, slower today and less grandiose.? continue current mgmt.? contact court tomorrow to request a continuance. 12/22:? slept 6 hours, remains less manic than 12/20.? continue current mgmt.? contact court to request continuance.? labs scheduled for evening. 12/23:? less manic, improved sleep. No overt psychosis. rechecking HR, as it was elevated this AM. Pt denies chest pain, palpitations. 12/24:? remains hypomanic, adequate sleep.? wrist xray likely Fx; ortho consulted re mgmt.? check labs tomorrow. 12/25:? appreciate ortho consult and recs.? continue current mgmt, remains hypomanic.? labs this evening. 12/26:? VPA level 49.5, LFTs WNL.? minor anemia.? BUN 28.? increase VPA to 1250 QHS.? c/o consistent left flank pain; pelvic/lumbar xray to be ordered. 12/27: Continue current plan. 12/28: Continue current plan. 12/29:? continues hypomanic.? check labs tomorrow evening, 5 days after increasing VPA dosing.? c/o LLE swelling, with palpable cord, being investigated by hospitalist.? same for foul smelling vaginal D/C, most c/w BV.? also testing for NG TC due to sexual Hx and mg.? LLE U/S pending. 12/30:? STI testing neg, U/S NEG for DVT.? continue compression stockings.? + for BV, start course of flagyl.? continue psych regimen, check labs tonight.? continues hypomanic. 12/31: seen by renal for elevated BUN. no changes made to regimen due to c/o edema and elevated BUN. 01/01: BUN trended down slightly overnight. continue current mgmt per renal recs, observe for resolution of RADHA, felt to be related to recent use of diuretics, as well as edema, which may be more related to VPA. unclear at the moment. pt's preference is to DC VPA and initiate a trial of tegretol if edema is determined to be most likely from VPA. recheck labs tomorrow morning. 01/02: BUN 28 today, but Cr down to 0.93. per renal, this is a good sign of recovery renal fxn and we expect BUN to lag Cr in improvement. pt also reports decreased edema in her hands, agreeable to increase VPA to 1500 mg as of this evening. VPA levels 49.5 and 58.1 on 1250 mg QHS. 01/03: Continue current regimen and plans 01/04: Continue current plans and regimen 01/05: Continue current regimen and plans 01/06: continues to trend less manic. checks labs tomorrow dona. 01/07: stable, check labs tonight. 01/08: VPA 52.9. BUN 30, otherwise unremarkable. increase VPA to 1750 as of tonight. follow renal fxn, consult with nephrology PRN. remains attenuated hypomanic. 01/09: no change in presentation. continue current mgmt. check labs next week. likely DC to respite next week. 01/10/2023: No changes to current plan Reason for continued inpatient stay Substantial Risk for: rapid decompensation Time Spent With Patient Time: Total time managing care of this patient today ____ minutes.
[2023-01-10 21:20] VITALS: BP 130/64; PULSE 89; RESP 16; TEMP 36.6; O2SAT 98
[2023-01-10] MEDS: Melatonin 3 MG TABLET PO (21:26)
[2023-01-10] MEDS: hydrOXYzine HCL 25 MG TABLET PO (21:26)
[2023-01-10] MEDS: Divalproex Sodium ER 250 MG TAB.ER.24H 1750 MG PO (21:26)
[2023-01-11] MEDS: Acetaminophen 325 MG TABLET 650 MG PO ×3 (06:13→23:58)
[2023-01-11 08:08] VITALS: BP 113/67; PULSE 91; RESP 18; TEMP 37.1; O2SAT 100
[2023-01-11] MEDS: buPROPion HCl XL 300 MG TAB.ER.24H PO (08:09)
[2023-01-11] MEDS: Cariprazine HCl 1.5 MG CAPSULE 4.5 MG PO (08:09)
--- NOTE | 2023-01-11 16:25 | HO.PSYCHPN ---
Subjective Subjective Date of Service: 01/11/23 Reason For Visit: mg Interim History: met with patient. Discussed with Nursing. Pleasant. Less intrusive. Sleep okay. Reports doing well now. Plan remains discharge to respite then staying with family. Aware of Depakote level after the weekend. No med concerns. Feeling safe and supportive Medication Compliance: Yes Side effects from medications: No Attending Groups: Yes Review of Systems Acute medical concerns: No Review of Systems Review of Systems unremarkable Mental Status Exam Mental Status Exam Narrative: pleasant. Engaged. Fairly presented. Less pressured speech. Largely organized. Denied depression. No SI. No HI. No overt psychosis. Insight and judgment okay Diagnostics Vital Signs (24Hr): Vital Signs - 24 hr 01/10/23 21:20 01/11/23 08:08 Temperature 97.9 F 98.7 F Pulse Rate 89 91 Respiratory Rate 16 18 Blood Pressure 130/64 113/67 Pulse Oximetry 98 100 Oxygen Delivery Method Room Air Room Air BMI result Body Mass Index 27.3 Labs 01/07/23 20:24 01/07/23 20:24 Imaging Radiology Impressions: ITS Impressions Head CT 12/13/22 19:23 IMPRESSION: No evidence of acute intracranial hemorrhage or edematous territorial infarction. Wrist X-Ray 12/22/22 15:00 IMPRESSION: Question nondisplaced ulnar styloid fracture. Findings will be communicated by the [place] work flow scada engineer Hip/Pelvis X-Ray 12/26/22 13:50 IMPRESSION: No abnormality is seen in the hip. 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 Venous Duplex 12/29/22 14:10 IMPRESSION: No evidence for deep venous thrombosis in the visualized veins of the left lower extremity. Duplex Scan Lower Extremity Artery 12/29/22 14:20 IMPRESSION: Widely patent flow throughout the left lower extremity Medications Medications Current Medications Acetaminophen (Acetaminophen 325 Mg Tablet) 650 mg PO Q6H PRN PRN Reason: Headache/Pain Mild Scale (1-3) Last Admin: 01/11/23 14:13 Dose: 650 mg Al Hydroxide/Mg Hydroxide (Magnesium Hydrox/Alum Hydrox 30 Ml Oral.Susp) 30 ml PO Q6H PRN PRN Reason: Heartburn/Nausea Bupropion HCl (Bupropion Hcl Xl 300 Mg Tab.Er.24h) 300 mg PO DAILY CARLOS Last Admin: 01/11/23 08:09 Dose: 300 mg Cariprazine (Cariprazine Hcl 1.5 Mg Capsule) 4.5 mg PO DAILY CARLOS Last Admin: 01/11/23 08:09 Dose: 4.5 mg Divalproex Sodium (Divalproex Sodium Er 250 Mg Tab.Er.24h) 1,750 mg PO BEDTIME CARLOS Last Admin: 01/10/23 21:26 Dose: 1,750 mg Hydroxyzine HCl (Hydroxyzine Hcl 25 Mg Tablet) 25 mg PO Q6H PRN PRN Reason: Anxiety Last Admin: 01/10/23 21:26 Dose: 25 mg Magnesium Hydroxide (Milk Of Magnesia 30 Ml Oral.Susp) 30 ml PO DAILY PRN PRN Reason: Constipation Melatonin (Melatonin 3 Mg Tablet) 3 mg PO BEDTIME CARLOS Last Admin: 01/10/23 21:26 Dose: 3 mg Trazodone HCl (Trazodone Hcl 50 Mg Tablet) 50 mg PO BEDTIME MRX1 PRN PRN Reason: Insomnia Last Admin: 12/22/22 21:07 Dose: 50 mg Allergies Allergies Allergy/AdvReac Type Severity Reaction Status Date / Time No Known Allergies Allergy Verified 12/13/22 17:46 Assessment & Plan Assessment & Plan (1) Bilateral lower extremity edema: Status: Acute Code(s): R60.0 - Localized edema Assessment and Plan: Bilateral lower extremity edema. No significant proteinuria on urinalysis. No canal appears normal with a serum albumin of 3.8. No cardiac history. Edema might be related to use of Depakote. Current issues asymptomatic. Overall she feels that Depakote is helping her and she is not interested in changing the therapy. I would suggest to keep her on the Depakote and we can monitor the renal function and edema over the next few days. I would also hold diuretics at this time. Keep on low-sodium diet. If the edema gets worse or if renal function worsens then we can consider alternate therapy. (2) RADHA (acute kidney injury): Status: Acute Code(s): N17.9 - Acute kidney failure, unspecified Assessment and Plan: RADHA most likely due to hypoperfusion from use of diuretics. Different diagnosis would include obstructive uropathy. Recent urinalysis was benign therefore or glomerular nephritis or interstitial disease seem unlikely I would suggest to keep her on the Depakote and we can monitor the renal function and edema over the next few days. I would also hold diuretics at this time. Keep on low-sodium diet. If the edema gets worse or if renal function worsens then we can consider alternate therapy. (3) Neurodegenerative cognitive impairment: Status: Acute Code(s): G31.9 - Degenerative disease of nervous system, unspecified (4) Bipolar disorder, most recent episode depressed: Status: Acute Code(s): F31.30 - Bipolar disorder, current episode depressed, mild or moderate severity, unspecified Plan 12/16:? restart prior regimen.? titrate wellbutrin to 300 mg daily and vraylar to 4.5 mg daily.? monitor for improvement, T/C addition of mood stabilizer, as pt c/o mood swings even with previous regimen.? antibx for UTI. 12/17:? increase vraylar to 4.5 mg daily as of tomorrow.? otherwise continue current mgmt.? depressed. 12/18:? as of today, pt is back on regimen on which she was discharged from [facility].? give some days for improvement and stabilization, then T/C mood stabilizer. 12/19:? MoCA 17 today.? continue current mgmt. 12/20:? appears to have flipped into mg/hypomania overnight.? agreeable to start VPA 1000 mg QHS as of tonight.? hyperverbal, very busy with planning via telephone calls, hyper-intense and posisitve affect. 12/21:? slept 6.5 hours last night, slower today and less grandiose.? continue current mgmt.? contact court tomorrow to request a continuance. 12/22:? slept 6 hours, remains less manic than 12/20.? continue current mgmt.? contact court to request continuance.? labs scheduled for evening. 12/23:? less manic, improved sleep. No overt psychosis. rechecking HR, as it was elevated this AM. Pt denies chest pain, palpitations. 12/24:? remains hypomanic, adequate sleep.? wrist xray likely Fx; ortho consulted re mgmt.? check labs tomorrow. 12/25:? appreciate ortho consult and recs.? continue current mgmt, remains hypomanic.? labs this evening. 8/25:? VPA level 49.5, LFTs WNL.? minor anemia.? BUN 28.? increase VPA to 1250 QHS.? c/o consistent left flank pain; pelvic/lumbar xray to be ordered. 12/27: Continue current plan. 12/28: Continue current plan. 12/29:? continues hypomanic.? check labs tomorrow evening, 5 days after increasing VPA dosing.? c/o LLE swelling, with palpable cord, being investigated by hospitalist.? same for foul smelling vaginal D/C, most c/w BV.? also testing for NG TC due to sexual Hx and mg.? LLE U/S pending. 12/30:? STI testing neg, U/S NEG for DVT.? continue compression stockings.? + for BV, start course of flagyl.? continue psych regimen, check labs tonight.? continues hypomanic. 12/31: seen by renal for elevated BUN. no changes made to regimen due to c/o edema and elevated BUN. 01/01: BUN trended down slightly overnight. continue current mgmt per renal recs, observe for resolution of RADHA, felt to be related to recent use of diuretics, as well as edema, which may be more related to VPA. unclear at the moment. pt's preference is to DC VPA and initiate a trial of tegretol if edema is determined to be most likely from VPA. recheck labs tomorrow morning. 01/02: BUN 28 today, but Cr down to 0.93. per renal, this is a good sign of recovery renal fxn and we expect BUN to lag Cr in improvement. pt also reports decreased edema in her hands, agreeable to increase VPA to 1500 mg as of this evening. VPA levels 49.5 and 58.1 on 1250 mg QHS. 01/03: Continue current regimen and plans 01/04: Continue current plans and regimen 01/05: Continue current regimen and plans 01/06: continues to trend less manic. checks labs tomorrow dona. 01/07: stable, check labs tonight. 01/08: VPA 52.9. BUN 30, otherwise unremarkable. increase VPA to 1750 as of tonight. follow renal fxn, consult with nephrology PRN. remains attenuated hypomanic. 01/09: no change in presentation. continue current mgmt. check labs next week. likely DC to respite next week. 01/11/2023: No changes to current plan Reason for continued inpatient stay Substantial Risk for: rapid decompensation Time Spent With Patient Time: Total time managing care of this patient today ____ minutes.
[2023-01-11 20:15] VITALS: BP 114/64; PULSE 95; RESP 18; TEMP 36.4; O2SAT 95
[2023-01-11] MEDS: Divalproex Sodium ER 250 MG TAB.ER.24H 1750 MG PO (21:13)
[2023-01-11] MEDS: Melatonin 3 MG TABLET PO (21:13)
[2023-01-12 08:05] VITALS: BP 136/75; PULSE 86; RESP 16; TEMP 36.2; O2SAT 100
[2023-01-12] MEDS: Cariprazine HCl 1.5 MG CAPSULE 4.5 MG PO (09:05)
[2023-01-12] MEDS: buPROPion HCl XL 300 MG TAB.ER.24H PO (09:05)
--- NOTE | 2023-01-12 14:56 | P.PNPSI_ITS ---
Subjective Subjective Date of Service: 01/12/23 Reason For Visit: mg Interim History: calm, cooperative. appears more calm and less hyperverbal than last week. reports everything is well and she feels ready for discharge. discuss labs tomorrow night and referral to respite after. per staff, feeling good. med- compliant. eating meals. intrusive with peers. denies psych Sx. attending groups. up 2-3 times per night. Mental Status Exam Mental Status Exam Narrative: adequate hygiene, dressed in street clothes, cooperative, no PMA/PMR. speech nml rate, nml amount, nml loudness, nml tone, nml latency. thoughts linear and logical. affect full range, normo-intense, non-labile. no SI/SIBI/HI/AVH expressed. Diagnostics Vital Signs (24Hr): Vital Signs - 24 hr 01/11/23 20:15 01/12/23 08:05 Temperature 97.5 F 97.2 F Pulse Rate 95 86 Respiratory Rate 18 16 Blood Pressure 114/64 136/75 Pulse Oximetry 95 100 Oxygen Delivery Method Room Air Room Air BMI result Body Mass Index 27.3 Labs 01/07/23 20:24 01/07/23 20:24 Imaging Radiology Impressions: ITS Impressions Head CT 12/13/22 19:23 IMPRESSION: No evidence of acute intracranial hemorrhage or edematous territorial infarction. Wrist X-Ray 12/22/22 15:00 IMPRESSION: Question nondisplaced ulnar styloid fracture. Findings will be communicated by the [place] work flow geoscience laboratory technician Hip/Pelvis X-Ray 12/26/22 13:50 IMPRESSION: No abnormality is seen in the hip. 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 Venous Duplex 12/29/22 14:10 IMPRESSION: No evidence for deep venous thrombosis in the visualized veins of the left lower extremity. Duplex Scan Lower Extremity Artery 12/29/22 14:20 IMPRESSION: Widely patent flow throughout the left lower extremity Medications Medications Current Medications Acetaminophen (Acetaminophen 325 Mg Tablet) 650 mg PO Q6H PRN PRN Reason: Headache/Pain Mild Scale (1-3) Last Admin: 01/11/23 23:58 Dose: 650 mg Al Hydroxide/Mg Hydroxide (Magnesium Hydrox/Alum Hydrox 30 Ml Oral.Susp) 30 ml PO Q6H PRN PRN Reason: Heartburn/Nausea Bupropion HCl (Bupropion Hcl Xl 300 Mg Tab.Er.24h) 300 mg PO DAILY CARLOS Last Admin: 01/12/23 09:05 Dose: 300 mg Cariprazine (Cariprazine Hcl 1.5 Mg Capsule) 4.5 mg PO DAILY CARLOS Last Admin: 01/12/23 09:05 Dose: 4.5 mg Divalproex Sodium (Divalproex Sodium Er 250 Mg Tab.Er.24h) 1,750 mg PO BEDTIME CARLOS Last Admin: 01/11/23 21:13 Dose: 1,750 mg Hydroxyzine HCl (Hydroxyzine Hcl 25 Mg Tablet) 25 mg PO Q6H PRN PRN Reason: Anxiety Last Admin: 01/10/23 21:26 Dose: 25 mg Magnesium Hydroxide (Milk Of Magnesia 30 Ml Oral.Susp) 30 ml PO DAILY PRN PRN Reason: Constipation Melatonin (Melatonin 3 Mg Tablet) 3 mg PO BEDTIME CARLOS Last Admin: 01/11/23 21:13 Dose: 3 mg Trazodone HCl (Trazodone Hcl 50 Mg Tablet) 50 mg PO BEDTIME MRX1 PRN PRN Reason: Insomnia Last Admin: 12/22/22 21:07 Dose: 50 mg Allergies Allergies Allergy/AdvReac Type Severity Reaction Status Date / Time No Known Allergies Allergy Verified 12/13/22 17:46 Assessment & Plan Assessment & Plan (1) Bilateral lower extremity edema: Status: Acute Code(s): R60.0 - Localized edema Assessment and Plan: Bilateral lower extremity edema. No significant proteinuria on urinalysis. No canal appears normal with a serum albumin of 3.8. No cardiac history. Edema might be related to use of Depakote. Current issues asymptomatic. Overall she feels that Depakote is helping her and she is not interested in changing the therapy. I would suggest to keep her on the Depakote and we can monitor the renal function and edema over the next few days. I would also hold diuretics at this time. Keep on low-sodium diet. If the edema gets worse or if renal function worsens then we can consider alternate therapy. (2) RADHA (acute kidney injury): Status: Acute Code(s): N17.9 - Acute kidney failure, unspecified Assessment and Plan: RADHA most likely due to hypoperfusion from use of diuretics. Different diagnosis would include obstructive uropathy. Recent urinalysis was benign therefore or glomerular nephritis or interstitial disease seem unlikely I would suggest to keep her on the Depakote and we can monitor the renal function and edema over the next few days. I would also hold diuretics at this time. Keep on low-sodium diet. If the edema gets worse or if renal function worsens then we can consider alternate therapy. (3) Neurodegenerative cognitive impairment: Status: Acute Code(s): G31.9 - Degenerative disease of nervous system, unspecified (4) Bipolar disorder, most recent episode depressed: Status: Acute Code(s): F31.30 - Bipolar disorder, current episode depressed, mild or moderate severity, unspecified Plan 12/16:? restart prior regimen.? titrate wellbutrin to 300 mg daily and vraylar to 4.5 mg daily.? monitor for improvement, T/C addition of mood stabilizer, as pt c/o mood swings even with previous regimen.? antibx for UTI. 12/17:? increase vraylar to 4.5 mg daily as of tomorrow.? otherwise continue current mgmt.? depressed. 12/18:? as of today, pt is back on regimen on which she was discharged from [facility].? give some days for improvement and stabilization, then T/C mood stabilizer. 12/19:? MoCA 17 today.? continue current mgmt. 12/20:? appears to have flipped into mg/hypomania overnight.? agreeable to start VPA 1000 mg QHS as of tonight.? hyperverbal, very busy with planning via telephone calls, hyper-intense and posisitve affect. 12/21:? slept 6.5 hours last night, slower today and less grandiose.? continue current mgmt.? contact court tomorrow to request a continuance. 12/22:? slept 6 hours, remains less manic than 12/20.? continue current mgmt.? contact court to request continuance.? labs scheduled for evening. 12/23:? less manic, improved sleep. No overt psychosis. rechecking HR, as it was elevated this AM. Pt denies chest pain, palpitations. 12/24:? remains hypomanic, adequate sleep.? wrist xray likely Fx; ortho consulted re mgmt.? check labs tomorrow. 12/25:? appreciate ortho consult and recs.? continue current mgmt, remains hypomanic.? labs this evening. 12/26:? VPA level 49.5, LFTs WNL.? minor anemia.? BUN 28.? increase VPA to 1250 QHS.? c/o consistent left flank pain; pelvic/lumbar xray to be ordered. 12/27: Continue current plan. 12/28: Continue current plan. 12/29:? continues hypomanic.? check labs tomorrow evening, 5 days after increasing VPA dosing.? c/o LLE swelling, with palpable cord, being investigated by hospitalist.? same for foul smelling vaginal D/C, most c/w BV.? also testing for NG TC due to sexual Hx and mg.? LLE U/S pending. 12/30:? STI testing neg, U/S NEG for DVT.? continue compression stockings.? + for BV, start course of flagyl.? continue psych regimen, check labs tonight.? continues hypomanic. 12/31: seen by renal for elevated BUN. no changes made to regimen due to c/o edema and elevated BUN. 01/01: BUN trended down slightly overnight. continue current mgmt per renal recs, observe for resolution of RADHA, felt to be related to recent use of diuretics, as well as edema, which may be more related to VPA. unclear at the moment. pt's preference is to DC VPA and initiate a trial of tegretol if edema is determined to be most likely from VPA. recheck labs tomorrow morning. 01/02: BUN 28 today, but Cr down to 0.93. per renal, this is a good sign of recovery renal fxn and we expect BUN to lag Cr in improvement. pt also reports decreased edema in her hands, agreeable to increase VPA to 1500 mg as of this evening. VPA levels 49.5 and 58.1 on 1250 mg QHS. 01/03: Continue current regimen and plans 01/04: Continue current plans and regimen 01/05: Continue current regimen and plans 01/06: continues to trend less manic. checks labs tomorrow dona. 01/07: stable, check labs tonight. 01/08: VPA 52.9. BUN 30, otherwise unremarkable. increase VPA to 1750 as of tonight. follow renal fxn, consult with nephrology PRN. remains attenuated hypomanic. 01/09: no change in presentation. continue current mgmt. check labs next week. likely DC to respite next week. 01/11/2023: No changes to current plan 01/12: more settled than last week. check labs tomorrow night. likely refer to respite . Reason for continued inpatient stay Substantial Risk for: inability to function and rapid decompensation Time Spent With Patient Time: Total time managing care of this patient today __25__ minutes.
[2023-01-12 21:20] VITALS: BP 119/68; PULSE 86; RESP 18; TEMP 36.2; O2SAT 97
[2023-01-12] MEDS: Divalproex Sodium ER 500 MG TAB.ER.24H 1500 MG PO (21:33)
[2023-01-12] MEDS: Divalproex Sodium ER 250 MG TAB.ER.24H PO (21:34)
[2023-01-12] MEDS: Melatonin 3 MG TABLET PO (21:34)
[2023-01-12] MEDS: Acetaminophen 325 MG TABLET 650 MG PO (21:34)
[2023-01-13 09:00] VITALS: BP 149/70; PULSE 86; RESP 16; TEMP 36.9; O2SAT 99
[2023-01-13] MEDS: buPROPion HCl XL 300 MG TAB.ER.24H PO (09:19)
[2023-01-13] MEDS: Cariprazine HCl 1.5 MG CAPSULE 4.5 MG PO (09:19)
[2023-01-13] MEDS: Acetaminophen 325 MG TABLET 650 MG PO ×2 (10:21→19:26)
--- NOTE | 2023-01-13 15:29 | HO.PSYCHPN ---
Subjective Subjective Date of Service: 01/13/23 Reason For Visit: mg Interim History: more calm, less spontaneous speech. slept better last night. mood good. per staff, active, social, intrusive. pleasant, sleeping better, up x1 overnight. Mental Status Exam Mental Status Exam Narrative: adequate hygiene, dressed in street clothes, cooperative, no PMA/PMR. speech nml rate, nml amount, nml loudness, nml tone, nml latency. thoughts linear and logical. affect full range, normo-intense, non-labile. no SI/SIBI/HI/AVH expressed. Diagnostics Vital Signs (24Hr): Vital Signs - 24 hr 01/12/23 21:20 01/13/23 09:00 Temperature 97.2 F 98.4 F Pulse Rate 86 86 Respiratory Rate 18 16 Blood Pressure 119/68 149/70 H Pulse Oximetry 97 99 Oxygen Delivery Method Room Air Room Air BMI result Body Mass Index 27.3 Labs 01/07/23 20:24 01/07/23 20:24 Imaging Radiology Impressions: ITS Impressions Head CT 12/13/22 19:23 IMPRESSION: No evidence of acute intracranial hemorrhage or edematous territorial infarction. Wrist X-Ray 12/22/22 15:00 IMPRESSION: Question nondisplaced ulnar styloid fracture. Findings will be communicated by the [place] work flow education nurse Hip/Pelvis X-Ray 12/26/22 13:50 IMPRESSION: No abnormality is seen in the hip. 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 Venous Duplex 12/29/22 14:10 IMPRESSION: No evidence for deep venous thrombosis in the visualized veins of the left lower extremity. Duplex Scan Lower Extremity Artery 12/29/22 14:20 IMPRESSION: Widely patent flow throughout the left lower extremity Medications Medications Current Medications Acetaminophen (Acetaminophen 325 Mg Tablet) 650 mg PO Q6H PRN PRN Reason: Headache/Pain Mild Scale (1-3) Last Admin: 01/13/23 10:21 Dose: 650 mg Al Hydroxide/Mg Hydroxide (Magnesium Hydrox/Alum Hydrox 30 Ml Oral.Susp) 30 ml PO Q6H PRN PRN Reason: Heartburn/Nausea Bupropion HCl (Bupropion Hcl Xl 300 Mg Tab.Er.24h) 300 mg PO DAILY CARLOS Last Admin: 01/13/23 09:19 Dose: 300 mg Cariprazine (Cariprazine Hcl 1.5 Mg Capsule) 4.5 mg PO DAILY [facility] Last Admin: 01/13/23 09:19 Dose: 4.5 mg Divalproex Sodium (Divalproex Sodium Er 500 Mg Tab.Er.24h) 1,500 mg PO BEDTIME CARLOS Last Admin: 01/12/23 21:33 Dose: 1,500 mg Divalproex Sodium (Divalproex Sodium Er 250 Mg Tab.Er.24h) 250 mg PO BEDTIME CARLOS Last Admin: 01/12/23 21:34 Dose: 250 mg Hydroxyzine HCl (Hydroxyzine Hcl 25 Mg Tablet) 25 mg PO Q6H PRN PRN Reason: Anxiety Last Admin: 01/10/23 21:26 Dose: 25 mg Magnesium Hydroxide (Milk Of Magnesia 30 Ml Oral.Susp) 30 ml PO DAILY PRN PRN Reason: Constipation Melatonin (Melatonin 3 Mg Tablet) 3 mg PO BEDTIME [facility] Last Admin: 01/12/23 21:34 Dose: 3 mg Trazodone HCl (Trazodone Hcl 50 Mg Tablet) 50 mg PO BEDTIME MRX1 PRN PRN Reason: Insomnia Last Admin: 12/22/22 21:07 Dose: 50 mg Allergies Allergies Allergy/AdvReac Type Severity Reaction Status Date / Time No Known Allergies Allergy Verified 12/13/22 17:46 Assessment & Plan Assessment & Plan (1) Bilateral lower extremity edema: Status: Acute Code(s): R60.0 - Localized edema Assessment and Plan: Bilateral lower extremity edema. No significant proteinuria on urinalysis. No canal appears normal with a serum albumin of 3.8. No cardiac history. Edema might be related to use of Depakote. Current issues asymptomatic. Overall she feels that Depakote is helping her and she is not interested in changing the therapy. I would suggest to keep her on the Depakote and we can monitor the renal function and edema over the next few days. I would also hold diuretics at this time. Keep on low-sodium diet. If the edema gets worse or if renal function worsens then we can consider alternate therapy. (2) RADHA (acute kidney injury): Status: Acute Code(s): N17.9 - Acute kidney failure, unspecified Assessment and Plan: RADHA most likely due to hypoperfusion from use of diuretics. Different diagnosis would include obstructive uropathy. Recent urinalysis was benign therefore or glomerular nephritis or interstitial disease seem unlikely I would suggest to keep her on the Depakote and we can monitor the renal function and edema over the next few days. I would also hold diuretics at this time. Keep on low-sodium diet. If the edema gets worse or if renal function worsens then we can consider alternate therapy. (3) Neurodegenerative cognitive impairment: Status: Acute Code(s): G31.9 - Degenerative disease of nervous system, unspecified (4) Bipolar disorder, most recent episode depressed: Status: Acute Code(s): F31.30 - Bipolar disorder, current episode depressed, mild or moderate severity, unspecified Plan 12/16:? restart prior regimen.? titrate wellbutrin to 300 mg daily and vraylar to 4.5 mg daily.? monitor for improvement, T/C addition of mood stabilizer, as pt c/o mood swings even with previous regimen.? antibx for UTI. 12/17:? increase vraylar to 4.5 mg daily as of tomorrow.? otherwise continue current mgmt.? depressed. 12/18:? as of today, pt is back on regimen on which she was discharged from [facility].? give some days for improvement and stabilization, then T/C mood stabilizer. 12/19:? MoCA 17 today.? continue current mgmt. 12/20:? appears to have flipped into mg/hypomania overnight.? agreeable to start VPA 1000 mg QHS as of tonight.? hyperverbal, very busy with planning via telephone calls, hyper-intense and posisitve affect. 12/21:? slept 6.5 hours last night, slower today and less grandiose.? continue current mgmt.? contact court tomorrow to request a continuance. 12/22:? slept 6 hours, remains less manic than 12/20.? continue current mgmt.? contact court to request continuance.? labs scheduled for evening. 12/23:? less manic, improved sleep. No overt psychosis. rechecking HR, as it was elevated this AM. Pt denies chest pain, palpitations. 12/24:? remains hypomanic, adequate sleep.? wrist xray likely Fx; ortho consulted re mgmt.? check labs tomorrow. 12/25:? appreciate ortho consult and recs.? continue current mgmt, remains hypomanic.? labs this evening. 12/26:? VPA level 49.5, LFTs WNL.? minor anemia.? BUN 28.? increase VPA to 1250 QHS.? c/o consistent left flank pain; pelvic/lumbar xray to be ordered. 12/27: Continue current plan. 12/28: Continue current plan. 12/29:? continues hypomanic.? check labs tomorrow evening, 5 days after increasing VPA dosing.? c/o LLE swelling, with palpable cord, being investigated by hospitalist.? same for foul smelling vaginal D/C, most c/w BV.? also testing for NG TC due to sexual Hx and mg.? LLE U/S pending. 12/30:? STI testing neg, U/S NEG for DVT.? continue compression stockings.? + for BV, start course of flagyl.? continue psych regimen, check labs tonight.? continues hypomanic. 12/31: seen by renal for elevated BUN. no changes made to regimen due to c/o edema and elevated BUN. 01/01: BUN trended down slightly overnight. continue current mgmt per renal recs, observe for resolution of RADHA, felt to be related to recent use of diuretics, as well as edema, which may be more related to VPA. unclear at the moment. pt's preference is to DC VPA and initiate a trial of tegretol if edema is determined to be most likely from VPA. recheck labs tomorrow morning. 01/02: BUN 28 today, but Cr down to 0.93. per renal, this is a good sign of recovery renal fxn and we expect BUN to lag Cr in improvement. pt also reports decreased edema in her hands, agreeable to increase VPA to 1500 mg as of this evening. VPA levels 49.5 and 58.1 on 1250 mg QHS. 01/03: Continue current regimen and plans 01/04: Continue current plans and regimen 01/05: Continue current regimen and plans 01/06: continues to trend less manic. checks labs tomorrow dona. 01/07: stable, check labs tonight. 01/08: VPA 52.9. BUN 30, otherwise unremarkable. increase VPA to 1750 as of tonight. follow renal fxn, consult with nephrology PRN. remains attenuated hypomanic. 01/09: no change in presentation. continue current mgmt. check labs next week. likely DC to respite next week. 01/11/2023: No changes to current plan 01/12: more settled than last week. check labs tomorrow night. likely refer to respite . 01/13: calm, not hyperverbal. labs tonight. DC to respite as soon as tomorrow, depending on labs results. Reason for continued inpatient stay Substantial Risk for: inability to function and rapid decompensation Time Spent With Patient Time: Total time managing care of this patient today __25__ minutes.
[2023-01-13 21:08] VITALS: BP 112/69; PULSE 82; RESP 16; TEMP 36.2; O2SAT 99
[2023-01-13] MEDS: Melatonin 3 MG TABLET PO (21:18)
[2023-01-13] MEDS: Divalproex Sodium ER 500 MG TAB.ER.24H 1500 MG PO (21:18)
[2023-01-13] MEDS: Divalproex Sodium ER 250 MG TAB.ER.24H PO (21:18)
[2023-01-13 21:24] LABS: MANUAL DIFF FLAG NO
[2023-01-13 21:26] LABS: Basophils Percent Auto 0.5 % (0-2); Eosinophils Absolute Auto 0.1 X10*3/uL (0.0-0.4); Eosinophils Percent Auto 1.1 % (0-4); Hemoglobin 11.8 g/dl (12.0-16.0); Imm Gran Abs Auto 0.06 X10*3/uL (0.00-0.03); Imm Gran Pct Auto 0.8 % (0.0-0.4); Lymphocytes Absolute Auto 2.2 X10*3/uL (1.2-4.9); Mean Corpuscular HGB Conc 31.1 g/dl (31.0-35.0); Mean Corpuscular Hemoglobin 28.9 pg (27.0-33.0); Mean Corpuscular Volume 93.1 fL (80.0-98.0); Mean Platelet Volume 9.8 fL (9.4-12.3); Monocytes Absolute Auto 0.9 X10*3/uL (0.1-1.2); Monocytes Percent Auto 11.3 % (2-11); Neutrophils Absolute Auto 4.4 x10*3/uL (2.0-8.3); Neutrophils Percent Auto 57.3 % (45-73); Platelet Count 380 X10*3/uL (160-400); Red Blood Count 4.08 X10*6/uL (4.20-5.50); Red Cell Distribution Width 14.5 % (11.0-16.0); White Blood Count 7.6 X10*3/uL (4.8-10.8)
[2023-01-13 21:37] LABS: Valproate 57.4 mcg/mL (50.0-100.0)
[2023-01-13 21:41] LABS: Alanine Aminotransferase 16 U/L (0-31); Albumin Level 3.7 g/dL (3.5-5.0); Alkaline Phosphatase 70 U/L (39-117); Anion Gap 14 (12-20); Aspartate Amino Transferase 23 U/L (5-31); Bilirubin Direct < 0.2 mg/dL (0.0-0.5); Bilirubin Total 0.2 mg/dL (0.0-1.0); Blood Urea Nitrogen 27 mg/dL (9-16); Calcium 8.9 mg/dL (8.4-10.2); Carbon Dioxide 27 mmol/L (22-29); Chloride 105 mmol/L (96-108); Creatinine Clr Calc Pharmacy 60.7; Estimated Glomerular Filt Rate > 60; Glucose Random 91 mg/dL (60-115); Potassium 4.6 mmol/L (3.3-5.1); Sodium 141 mmol/L (135-145); Total Protein 6.9 g/dL (6.5-8.0)
[2023-01-14] MEDS: Acetaminophen 325 MG TABLET 650 MG PO ×2 (06:08→22:40)
[2023-01-14 08:00] VITALS: BP 129/65; PULSE 74; RESP 16; TEMP 36.5; O2SAT 100
[2023-01-14] MEDS: Cariprazine HCl 1.5 MG CAPSULE 4.5 MG PO (08:21)
[2023-01-14] MEDS: buPROPion HCl XL 300 MG TAB.ER.24H PO (08:21)
--- NOTE | 2023-01-14 11:23 | P.DS_ITS ---
DS: Providers Provider Date of Service: 01/14/23 Date of admission: 12/15/22 17:46 Primary care physician: Mikey Carrero MD Consults: 12/24/22 14:54 Consult to Orthopedics Routine Consulting Provider: [facility] Reason for consultation: mgmt of wrist Fx Has provider been notified: No 12/29/22 09:47 Consult to Hospitalist Routine Comment: 3+ PE in RLE. malod urine. U/S and UA ordered Consulting Provider: Hospitalist Reason For Exam: R/O DVT, R/O UTI 12/31/22 10:18 Consult to Nephrology Routine Consulting Provider: Blanco Ponce Reason for consultation: progressive edema, rising BUN since admission Has provider been notified: Yes DS: Diagnosis Discharge Diagnosis (1) Bilateral lower extremity edema: Status: Acute (2) RADHA (acute kidney injury): Status: Acute (3) Neurodegenerative cognitive impairment: Status: Acute (4) Bipolar disorder, most recent episode depressed: Status: Acute DS: Medications Discharge Medications Home Medications: Previous Rx's Medication Instructions Recorded ammonium lactate 12 % lotion 1 appl topical BID 30 days #50 01/14/23 grams bupropion HCl 300 mg 24 hr tablet, 300 mg PO DAILY 30 days #30 tabs 01/14/23 extended release cariprazine 1.5 mg capsule 4.5 mg (3 x 1.5 mg) PO DAILY 30 01/14/23 (Vraylar) days #90 caps divalproex 250 mg tablet,extended 250 mg PO BEDTIME 30 days #30 tabs 01/14/23 release 24 hr divalproex 500 mg tablet,extended 1,500 mg (3 x 500 mg) PO BEDTIME 01/14/23 release 24 hr 30 days #90 tabs melatonin 3 mg tablet 3 mg PO BEDTIME 30 days #30 tabs 01/14/23 Mental Status Exam Mental Status Exam Narrative: adequate hygiene, dressed in street clothes, cooperative, no PMA/PMR. speech nml rate, nml amount, nml loudness, nml tone, nml latency. thoughts linear and logical. mood god. affect full range, normo-intense, non-labile. no SI/SIBI/HI/AVH expressed. Data Data Completed and Pending Completed studies during hospitalization [Text1]: 01/07/23 01/13/23 20:24 20:28 WBC 8.1 7.6 RBC 4.06 L 4.08 L Hgb 11.9 L 11.8 L Hct 37.1 38.0 MCV 91.4 93.1 MCH 29.3 28.9 MCHC 32.1 31.1 RDW 14.3 14.5 Plt Count 369 380 MPV 9.3 L 9.8 Immature Gran % (Auto) 0.4 0.8 H Neut % (Auto) 61.2 57.3 Lymph % (Auto) 25.6 29.0 Starke % (Auto) 11.2 H 11.3 H Eos % (Auto) 1.0 1.1 Baso % (Auto) 0.6 0.5 Lymph # (Auto) 2.1 2.2 Starke # (Auto) 0.9 0.9 Eos # (Auto) 0.1 0.1 Baso # (Auto) 0.1 0.0 Abs Immat Gran (auto) 0.03 0.06 H Absolute Neuts (auto) 5.0 4.4 Absolute Nucleated RBC 0.000 0.000 Nucleated RBC % (auto) 0.0 0.0 Sodium 139 141 Potassium 4.9 4.6 Chloride 103 105 Carbon Dioxide 29 27 Anion Gap 12 14 BUN 30 H 27 H Creatinine 1.18 0.82 Estim Creat Clear Calc 42.1 60.7 Estimated GFR 45 > 60 Random Glucose 82 91 Calcium 9.0 8.9 Total Bilirubin 0.1 0.2 Direct Bilirubin < 0.2 < 0.2 AST 27 23 ALT 25 16 Alkaline Phosphatase 71 70 Total Protein 6.9 6.9 Albumin 3.7 3.7 Valproic Acid 52.9 57.4 12/29/22 Unknown Urine clean catch - Urine [place] top Urine Culture - Final 12/14/22 Unknown Urine clean catch - Clean Catch Midstream Urine Culture - Final Imaging Diagnostic Imaging Impressions Head CT 12/13/22 19:23 IMPRESSION: No evidence of acute intracranial hemorrhage or edematous territorial infarction. Wrist X-Ray 12/22/22 15:00 IMPRESSION: Question nondisplaced ulnar styloid fracture. Findings will be communicated by the [place] work flow facer operator Hip/Pelvis X-Ray 12/26/22 13:50 IMPRESSION: No abnormality is seen in the hip. 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 Venous Duplex 12/29/22 14:10 IMPRESSION: No evidence for deep venous thrombosis in the visualized veins of the left lower extremity. Duplex Scan Lower Extremity Artery 12/29/22 14:20 IMPRESSION: Widely patent flow throughout the left lower extremity DS: Summary Time Spent with Patient Time attestation: Total time managing care of this patient today ____ minutes. Discharge Plan Discharge Patient Disposition: Xfer to Respite Facility Discharge Diagnosis: Bipolar I Disorder, MRE Depressed Dementia, Moderate Referrals: Mikey Carrero MD [Primary Care Provider] - Discharge Medications: New divalproex 250 mg Tablet Extended Release 24 Hr 250 mg PO BEDTIME 30 Days Qty: 30 0RF divalproex 500 mg Tablet Extended Release 24 Hr 1,500 mg PO BEDTIME 30 Days Qty: 90 0RF ammonium lactate 12 % Lotion 1 appl topical BID 30 Days Qty: 50 0RF Protocol: Apply to: Apply to: feet B/L melatonin 3 mg Tablet 3 mg PO BEDTIME 30 Days Qty: 30 0RF Continued bupropion HCl 300 mg Tablet Extended Release 24 Hr 300 mg PO DAILY 30 Days Qty: 30 1RF Vraylar 1.5 mg Capsule 4.5 mg PO DAILY 30 Days Qty: 90 0RF Discharge Orders: Discharge Order (Routine); Ordered 01/14/23 Ordered By: Anthony Valles Diet: Advance to usual diet Activity on Discharge: As tolerated Stand Alone Forms: Patient Portal Discharge page Print Language: Latvian Care Plan Goals: remain safe and stable in the outpatient treatment setting Health Concerns: lower extremity edema recent acute kidney injury Plan of Treatment: take medications as prescribed, attend appointments as scheduled Assessment: not at imminent risk of harm to self or others Patient Instructions: Urinary Tract Infection in Women (DC), Depression (DC)
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
[2023-01-14] MEDS: Divalproex Sodium ER 500 MG TAB.ER.24H 1500 MG PO (21:26)
[2023-01-14] MEDS: Melatonin 3 MG TABLET PO (21:27)
[2023-01-14] MEDS: Divalproex Sodium ER 250 MG TAB.ER.24H PO (21:27)
[2023-01-14 21:29] VITALS: BP 105/57; PULSE 91; TEMP 36.7; O2SAT 98
[2023-01-14] MEDS: Ammonium Lactate 12 % Lotion 226 GM BOTTLE 1 APPL TOPICAL (22:41)
[2023-01-15] MEDS: Acetaminophen 325 MG TABLET 650 MG PO ×3 (06:34→21:24)
[2023-01-15 07:00] VITALS: BMI 28.3
[2023-01-15 08:02] VITALS: BP 140/83; PULSE 79; RESP 16; TEMP 36.2; O2SAT 100
[2023-01-15] MEDS: Cariprazine HCl 1.5 MG CAPSULE 4.5 MG PO (08:26)
[2023-01-15] MEDS: buPROPion HCl XL 300 MG TAB.ER.24H PO (08:27)
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
[2023-01-15 19:50] VITALS: BP 131/61; PULSE 82; RESP 18; TEMP 36.2; O2SAT 96
[2023-01-15] MEDS: Divalproex Sodium ER 500 MG TAB.ER.24H 1500 MG PO (20:35)
[2023-01-15] MEDS: Divalproex Sodium ER 250 MG TAB.ER.24H PO (20:35)
[2023-01-15] MEDS: Melatonin 3 MG TABLET PO (21:24)
[2023-01-15] MEDS: Ammonium Lactate 12 % Lotion 226 GM BOTTLE 1 APPL TOPICAL (21:24)
[2023-01-16] MEDS: Acetaminophen 325 MG TABLET 650 MG PO (06:00)
[2023-01-16] MEDS: Cariprazine HCl 1.5 MG CAPSULE 4.5 MG PO (08:13)
[2023-01-16] MEDS: buPROPion HCl XL 300 MG TAB.ER.24H PO (08:17)
== END 2023-01-16 13:00 | DRG 885 ==
LOC: HO.ED 12-15 13:08 → HO.PADLT16 12-15 17:51
PROVIDERS: Internal Medicine Hypertension Specialist; Physician Assistant; Physician Assistant Medical; Psychiatry & Neurology Psychiatry; Student in an Organized Health Care Education/Training Program; Admitting Provider Psychiatry & Neurology Psychiatry; Emergency Provider Emergency Medicine; PCP Internal Medicine; Visit Provider Psychiatry & Neurology Psychiatry
DX: F31.30 Bipolar disorder, current episode depressed, mild or moderate severity, unspecified (principal); N17.9 Acute kidney failure, unspecified; S52.611A Displaced fracture of right ulna styloid process, initial encounter for closed fracture; N39.0 Urinary tract infection, site not specified; X58.XXXA Exposure to other specified factors, initial encounter; Z20.822 Contact with and (suspected) exposure to COVID-19; N76.0 Acute vaginitis; B37.31 Acute candidiasis of vulva and vagina; M62.831 Muscle spasm of calf; M54.59 Other low back pain; G89.29 Other chronic pain; F03.B0 Unspecified dementia, moderate, without behavioral disturbance, psychotic disturbance, mood disturbance, and anxiety; T43.296A Underdosing of other antidepressants, initial encounter; Z91.128 Patient's intentional underdosing of medication regimen for other reason; Z87.891 Personal history of nicotine dependence; Z79.899 Other long term (current) drug therapy
CPT/HCPCS: 0353U; 36415; 70450; 73110; 73502; 80048; 80053; 80061; 80076; 80143; 80164; 80179; 80307; 81001; 81513; 82140; 82607; 82746; 83036; 83690; 84156; 84300; 84439; 84443; 85025; 87086; 87480; 87510; 87635; 87660; 93005; 93926; 93971; 99285; S9485

== ENCOUNTER → 2022-12-13 17:48 | Outpatient (BNV) | payer MEDICARE, SELFPAY | PROVIDERS: Emergency Provider Emergency Medicine; PCP Internal Medicine; Visit Provider Internal Medicine Cardiovascular Disease | DX: R41.82 Altered mental status, unspecified (principal) | CPT/HCPCS: 93010 ==

== ENCOUNTER → 2022-12-13 18:19 | Outpatient (BNV) | payer MEDICARE, SELFPAY | PROVIDERS: Emergency Provider Emergency Medicine; PCP Internal Medicine; Visit Provider Psychiatry & Neurology Psychiatry | DX: F31.30 Bipolar disorder, current episode depressed, mild or moderate severity, unspecified (principal); G31.9 Degenerative disease of nervous system, unspecified; R60.0 Localized edema; N17.9 Acute kidney failure, unspecified | CPT/HCPCS: 90792; 99231; 99232; 99239; 99283 ==

== ENCOUNTER → 2022-12-15 17:46 | Outpatient (BNV) | payer MEDICARE, SELFPAY | PROVIDERS: Admitting Provider Psychiatry & Neurology Psychiatry; Emergency Provider Emergency Medicine; PCP Internal Medicine; Visit Provider Physician Assistant | DX: N89.8 Other specified noninflammatory disorders of vagina (principal); R60.0 Localized edema; M79.662 Pain in left lower leg | CPT/HCPCS: 99222 ==

== ENCOUNTER → 2022-12-15 17:46 | Outpatient (BNV) | payer MEDICARE, SELFPAY | PROVIDERS: Admitting Provider Psychiatry & Neurology Psychiatry; Emergency Provider Emergency Medicine; PCP Internal Medicine; Visit Provider Orthopaedic Surgery | DX: S52.611A Displaced fracture of right ulna styloid process, initial encounter for closed fracture (principal) | CPT/HCPCS: 25650; 99232 ==

== ENCOUNTER 2023-01-21 15:49 | Inpatient (IN) | payer MEDICARE, SELFPAY ==
[2023-01-21 15:58] VITALS: BP 142/74; PULSE 87; RESP 16; TEMP 36.7; O2SAT 99; BMI 26.8
--- NOTE | 2023-01-21 16:14 | ECG_ITS ---
Test Reason : MED CLEARANCE Blood Pressure : / mmHG Vent. Rate : 086 BPM Atrial Rate : 086 BPM P-R Int : 162 ms QRS Dur : 102 ms QT Int : 386 ms P-R-T Axes : 057 -15 045 degrees QTc Int : 461 ms Normal sinus rhythm Possible Left atrial enlargement Incomplete right bundle branch block Cannot rule out Anterior infarct , age undetermined Abnormal ECG When compared with ECG of 23-DEC-2022 12:37, No significant change was found Referred By: Meliton Batista Electronically Signed By:JONO HARTMAN
--- NOTE | 2023-01-21 16:15 | MHC.CARE ---
Call from [facility] branch logistics supervisor, Anita, with expect information. Patient rapidly decompensated with confusion and change in behavior, has not been evaluated by [facility], call [facility] [phone] for more information
--- NOTE | 2023-01-21 16:16 | ED.GENADULT ---
HPI - General Adult General Chief complaint: Psychiatric Symptoms Stated complaint: Medical eval. Hx of dementia Time Seen by Provider: 01/21/23 15:59 Source: patient and EMS Mode of arrival: EMS Limitations: no limitations History of Present Illness HPI narrative: a 67-year-old female came in from [facility] respite unit, patient was recently discharged from inpatient psych unit for bipolar disorder and depression patient then was discharged to respite patient asked to come to the hospital for medical evaluation patient has no specific concern or complaint at this point keeps saying I feel down, patient declined SI or HI, no visual or auditory hallucination. No headache, no photophobia, no neck stiffness, no CP, no SOB, no abdominal pain, no nausea, no diarrhea, no dysuria, no frequency urination.. Related Data Previous Rx's Medication Instructions Recorded ammonium lactate 12 % lotion 1 appl topical BID 30 days #50 01/14/23 grams bupropion HCl 300 mg 24 hr tablet, 300 mg PO DAILY 30 days #30 tabs 01/14/23 extended release cariprazine 1.5 mg capsule 4.5 mg (3 x 1.5 mg) PO DAILY 30 01/14/23 (Vraylar) days #90 caps divalproex 250 mg tablet,extended 250 mg PO BEDTIME 30 days #30 tabs 01/14/23 release 24 hr divalproex 500 mg tablet,extended 1,500 mg (3 x 500 mg) PO BEDTIME 01/14/23 release 24 hr 30 days #90 tabs melatonin 3 mg tablet 3 mg PO BEDTIME 30 days #30 tabs 01/14/23 Allergies Allergy/AdvReac Type Severity Reaction Status Date / Time No Known Allergies Allergy Verified 12/13/22 17:46 Review of Systems Review of Systems: All other systems are reviewed and are negative Constitutional: Reports as per HPI and Reports no additional constitutional complaints Eyes: Reports as per HPI and Reports no additional eye complaints Reports system reviewed and no additional complaints, except as documented Cardiovascular: Reports as per HPI and Reports no additional cardiovascular complaints Respiratory: Reports as per HPI and Reports no additional respiratory complaints Gastrointestinal: Reports as per HPI and Reports no additional gastrointestinal complaints Genitourinary: Reports no additional female genitourinary complaints Musculoskeletal: Reports no additional musculoskeletal complaints Skin/Breast: Reports system reviewed and no additional complaints, except as docu Psychiatric: Reports no additional psychiatric complaints Endocrine: Reports no additional endocrine complaints Hematologic/Lymphatic: Reports no additional hematologic/lymphatic complaints Allergic/Immunologic: Reports no additional allergic/immunologic complaints Reports system reviewed and no additional complaints, except as documented and Reports Abnormal speech present [facility] Past Medical History Medical History Neurodegenerative cognitive impairment Bipolar disorder, most recent episode depressed Left ankle sprain Low back pain Acute bronchitis Left sided sciatica Depression Sore throat (viral) Surgical History Hx of colonoscopy No significant past surgical history Social History Social History Household Members: Spouse and Children Household Members Other:: , son Housing: House Do you presently have visiting nurse or other home services: No Alcohol intake: former Patient Tobacco Use Status: Former Tobacco user Smoked in Last 30 Days: No e-Cigarette/Vaping Use: Never Used Use of substances other than those prescribed or required for medical reasons: No Advance Directives: No Advance Directives Information Provided: Yes service: No Sexual orientation: Straight/Heterosexual Physical Exam ED Vital Signs: Vital Signs - 24 hr 01/21/23 15:58 Temperature 98.0 F Pulse Rate 87 Respiratory Rate 16 Blood Pressure 142/74 H Pulse Oximetry 99 Oxygen Delivery Method Room Air BMI result Body Mass Index 26.8 Vital signs have been reviewed and appear to be correct. Blood pressure elevated. Heart rate normal. Respiratory rate normal. Temperature normal. Oxygen saturation normal. Appearance: Alert. Oriented X3. No acute distress. Head: Normal external exam. Normocephalic. Atraumatic. No Bonilla signs noted. No raccoon eyes noted Eyes: PERRLA. EOMI. Conjunctiva and sclera normal. Eyelids normal. ENT: TM's Normal. Pharynx normal. Uvula midline. Moist mucous membranes. No trismus noted. No drooling noted. No muffled voice noted. Neck: Normal inspection. Neck supple. FROM. No adenopathy. Thyroid Normal. No meningeal signs. No neck mass noted. CVS: Normal heart rate and rhythm. Heart sound normal. No murmurs noted. Pulses normal throughout. Respiratory: No respiratory distress. Painless inspiration. Breath sounds normal. No wheezes/rales/rhonchi noted. Chest nontender. No accessory muscle usage noted or decreased air movement noted. Abdomen: Soft and nontender. Bowel sounds normal in all 4 quadrants. No distention noted. No organomegaly noted. No visible injury noted. Back: No CVA tenderness. Full range of motion noted. Skin: Skin warm and dry. Normal skin color. Normal skin turgor. No rashes/lesions/lacerations noted. Extremities: No lower extremity edema. Extremities exhibit normal range of motion. Extremities nontender. Neuro: Oriented X 3. Cranial nerve exam: II-XII are grossly intact No motor deficit. No sensory deficit. Reflexes normal. Patient Orientation: Person, Place, Time and Situation, okay hygiene and grooming. Fair eye contact, attentive, no tics or tremors. Level of Consciousness: Awake, Appropriate and Alert Patient Behavior: Appropriate, Guarded, Cooperative and Anxious Mood Description: Constricted, Blunted and Apprehensive Affect Description: Constricted, Blunted and Apprehensive Patient Cognition Impaired: No Ability to Follow Directions: Excellent Speech Pattern: Clear, Appropriate and Spontaneous Speech, nonpressured, spontaneous with regular rate and rhythm, normal volume and prosody. No dysarthria. Memory Description: Intact, Immediate Intact and Short Term Intact Hallucinations: None Delusions: Not Present Thought Process: Intact Thought Content: positive for Intact, positive for Logical, denies Suicidal Ideation and denies Homicidal Ideation. Depressive Symptoms: Not present. Judgement and Insight: Limited but adequate. Course Course Course Narrative: 67-year-old female with extensive psych history is here for medical evaluation. Patient otherwise has no specific symptoms. found to have UTI will start on Macrobid patient was seen by care team and the plan is await for [facility] to re-evaluate the patient tomorrow. Reevaluation(s) Reevaluation #1: UTI will start the patient on Macrobid b.i.d., patient will be in the ED under physician Observation now. Time: 21:05 Medications Administered Generic Name Dose Route Start Last Admin Trade Name Freq PRN Reason Stop Dose Admin Nitrofurantoin Macrocrystals 100 mg 01/21/23 21:00 01/21/23 20:29 Nitrofurantoin Monohyd/M-Cryst 100 Mg Capsule PO 100 mg BID CARLOS Administration Medical Decision Making Differential Diagnosis Differential Diagnoses: The differential diagnosis associated with the presentation includes ( Electrolyte abnormality, severe anemia, renal insufficiency, acute psychosis, Medical dilution, electrolyte abnormality, severe anemia, UTI.) Admission/Observation Consideration of admission/observation: Escalation of care including admission/observation considered Lab Data MDM Lab Attestation statement: I reviewed the patient's lab results. 01/21/23 17:02 01/21/23 17:02 Labs: Lab Results 01/21/23 Range/Units 17:02 WBC 6.6 (4.8-10.8) X10*3/uL RBC 4.39 (4.20-5.50) X10*6/uL Hgb 12.7 (12.0-16.0) g/dl Hct 39.5 (37.0-47.0) % MCV 90.0 (80.0-98.0) fL MCH 28.9 (27.0-33.0) pg MCHC 32.2 (31.0-35.0) g/dl RDW 14.4 (11.0-16.0) % Plt Count 339 (160-400) X10*3/uL MPV 9.1 L (9.4-12.3) fL Immature Gran % (Auto) 0.3 (0.0-0.4) % Neut % (Auto) 60.9 (45-73) % Lymph % (Auto) 26.5 (20-40) % [place] % (Auto) 11.3 H (2-11) % Eos % (Auto) 0.5 (0-4) % Baso % (Auto) 0.5 (0-2) % Lymph # (Auto) 1.7 (1.2-4.9) X10*3/uL [place] # (Auto) 0.7 (0.1-1.2) X10*3/uL Eos # (Auto) 0.0 (0.0-0.4) X10*3/uL Baso # (Auto) 0.0 (0.0-0.2) X10*3/uL Abs Immat Gran (auto) 0.02 (0.00-0.03) X10*3/uL Absolute Neuts (auto) 4.0 (2.0-8.3) x10*3/uL Absolute Nucleated RBC 0.000 (0.0-0.012) X10*3/uL Nucleated RBC % (auto) 0.0 (0.0-0.2) /100WBC Sodium 143 (135-145) mmol/L Potassium 4.4 (3.3-5.1) mmol/L Chloride 110 H (96-108) mmol/L Carbon Dioxide 26 (22-29) mmol/L Anion Gap 11 L (12-20) BUN 19 H (9-16) mg/dL Creatinine 0.88 (0.5-1.4) mg/dL Estim Creat Clear Calc 56.0 Estimated GFR > 60 Random Glucose 82 (60-115) mg/dL Calcium 9.1 (8.4-10.2) mg/dL Total Bilirubin 0.3 (0.0-1.0) mg/dL Direct Bilirubin 0.1 (0.0-0.5) mg/dL AST 23 (5-31) U/L ALT 17 (0-31) U/L Alkaline Phosphatase 67 (39-117) U/L Troponin I High Sens < 2.7 (<3.5-17.0) ng/L Total Protein 6.9 (6.5-8.0) g/dL Albumin 3.8 (3.5-5.0) g/dL Lipase 14 (8-78) U/L TSH 4.69 H (0.32-4.0) uIU/mL Urine Color Yellow Urine Appearance Cloudy Urine pH 6.0 (5.0-9.0) Ur Specific [place] 1.025 (1.005-1.025) Urine Protein Negative (Neg-Trace) mg/dL Urine Glucose (UA) Negative (Negative) mg/dL Urine Ketones 15 (Negative) mg/dL Urine Blood Negative (Negative) Urine Nitrite Negative (Negative) Ur Leukocyte Esterase Large (3+) H (Negative) Urine RBC 3-5 H (0-2) /HPF Urine WBC >50 H (0-5) /HPF Ur Squamous Epith Cells >20 (0-2) /HPF Urine Bacteria 4+ (None Seen) Hyaline Casts 0-2 (0-2) /LPF Urine Opiates Screen Not Detected (Not Detect) Urine Fentanyl Screen Not Detected (Not Detect) Ur Barbiturates Screen Not Detected (Not Detect) Ur Phencyclidine Scrn Not Detected (Not Detect) Ur Amphetamines Screen Not Detected (Not Detect) U Benzodiazepines Scrn Not Detected (Not Detect) Urine Cocaine Screen Not Detected (Not Detect) U Marijuana (THC) Screen Not Detected (Not Detect) Discharge Plan Discharge Clinical Impression: Encounter for medical screening examination, Acute UTI Patient Disposition: Still a Patient Prescriptions: No Action divalproex 250 mg Tablet Extended Release 24 Hr 250 mg PO BEDTIME 30 Days Qty: 30 0RF divalproex 500 mg Tablet Extended Release 24 Hr 1,500 mg PO BEDTIME 30 Days Qty: 90 0RF ammonium lactate 12 % Lotion 1 appl topical BID 30 Days Qty: 50 0RF Protocol: Apply to: Apply to: feet B/L melatonin 3 mg Tablet 3 mg PO BEDTIME 30 Days Qty: 30 0RF bupropion HCl 300 mg Tablet Extended Release 24 Hr 300 mg PO DAILY 30 Days Qty: 30 1RF Vraylar 1.5 mg Capsule 4.5 mg PO DAILY 30 Days Qty: 90 0RF Interventions: [place]-Suicide Risk Severity Scale Last Done: 01/21/23 16:05
--- NOTE | 2023-01-21 16:56 | MHC.EDTECH ---
pt changed over with security. belongings in pod locker 11
[2023-01-21 17:08] LABS: MANUAL DIFF FLAG NO
[2023-01-21 17:12] LABS: Appearance Urine Cloudy; Color Urine Yellow; Glucose Urine UA Negative (Negative); Leukocyte Esterase Urine Large (3+) (Negative); Nitrite Urine Negative (Negative); Specific Gravity - Urine 1.025 (1.005-1.025); UMIC TRIGGER UACC YES; Urine Blood Negative (Negative); Urine Ketones 15 mg/dL (Negative); Urine Protein Negative (Neg-Trace)
[2023-01-21 17:17] LABS: Basophils Percent Auto 0.5 % (0-2); Eosinophils Percent Auto 0.5 % (0-4); Hematocrit 39.5 % (37.0-47.0); Hemoglobin 12.7 g/dl (12.0-16.0); Imm Gran Abs Auto 0.02 X10*3/uL (0.00-0.03); Imm Gran Pct Auto 0.3 % (0.0-0.4); Lymphocytes Absolute Auto 1.7 X10*3/uL (1.2-4.9); Lymphocytes Percent Auto 26.5 % (20-40); Mean Corpuscular HGB Conc 32.2 g/dl (31.0-35.0); Mean Corpuscular Hemoglobin 28.9 pg (27.0-33.0); Mean Platelet Volume 9.1 fL (9.4-12.3); Monocytes Absolute Auto 0.7 X10*3/uL (0.1-1.2); Monocytes Percent Auto 11.3 % (2-11); Neutrophils Percent Auto 60.9 % (45-73); Platelet Count 339 X10*3/uL (160-400); Red Blood Count 4.39 X10*6/uL (4.20-5.50); Red Cell Distribution Width 14.4 % (11.0-16.0); White Blood Count 6.6 X10*3/uL (4.8-10.8)
[2023-01-21 17:19] LABS: Amphetamine Screen Urine Not Detected (Not Detect); Barbiturates, Urine Not Detected (Not Detect); Benzodiazepines Screen Urine Not Detected (Not Detect); Cannabinoid Screen Urine Not Detected (Not Detect); Cocaine Screen Urine Not Detected (Not Detect); Fentanyl, urine Not Detected (Not Detect); Opiate Screen Urine Not Detected (Not Detect); Phencyclidine Screen Urine Not Detected (Not Detect)
[2023-01-21 17:24] LABS: Bacteria Urine 4+ (None Seen); Hyaline Casts Urine 0-2 /LPF (0-2); Squamous Epithelial Cell Urine >20 /HPF (0-2); UACC Culture Trigger YES; WBC Urine >50 /HPF (0-5)
[2023-01-21 17:33] LABS: Alanine Aminotransferase 17 U/L (0-31); Albumin Level 3.8 g/dL (3.5-5.0); Alkaline Phosphatase 67 U/L (39-117); Anion Gap 11 (12-20); Aspartate Amino Transferase 23 U/L (5-31); Bilirubin Direct 0.1 mg/dL (0.0-0.5); Bilirubin Total 0.3 mg/dL (0.0-1.0); Blood Urea Nitrogen 19 mg/dL (9-16); Calcium 9.1 mg/dL (8.4-10.2); Carbon Dioxide 26 mmol/L (22-29); Chloride 110 mmol/L (96-108); Estimated Glomerular Filt Rate > 60; Glucose Random 82 mg/dL (60-115); Lipase 14 U/L (8-78); Potassium 4.4 mmol/L (3.3-5.1); Sodium 143 mmol/L (135-145); Total Protein 6.9 g/dL (6.5-8.0)
[2023-01-21 17:48] LABS: Thyroid Stimulating Hormone 4.69 uIU/mL (0.32-4.0)
[2023-01-21 17:50] LABS: Troponin-I High Sensitivity < 2.7 ng/L (<3.5-17.0)
--- NOTE | 2023-01-21 19:17 | MHC.CARE ---
CARE Team discusses case with Dr. Batista, who indicates that pt has a UTI and has been started on medication. This info is passed on to Tiff at [facility]. Per Anita/Shweta Frias, [facility] will assess pt in the morning to see if she is able to return to respite.
--- NOTE | 2023-01-21 19:33 | PC.NURSE ---
pt resting, calm, cooperative. given juice. +CSM. talking well
[2023-01-21] MEDS: Nitrofurantoin Monohyd/M-Cryst 100 MG CAPSULE PO (20:29)
[2023-01-21] MEDS: Divalproex Sodium ER 250 MG TAB.ER.24H PO (22:16)
[2023-01-21] MEDS: Melatonin 3 MG TABLET PO (22:16)
[2023-01-21] MEDS: Divalproex Sodium ER 500 MG TAB.ER.24H 1500 MG PO (22:16)
--- NOTE | 2023-01-22 05:35 | PC.NURSE ---
Patient slept through the night, no distress observed/reported, behavior non concerning, medication compliant, + for UTI, Macrobid 100 mg BID, disposition is [facility] today possible discharge back to [facility]pite, VSS, labs completed/resulted, will continue to monitor.
[2023-01-22 06:00] VITALS: BP 112/59; PULSE 72; RESP 16; TEMP 36.6; O2SAT 96
[2023-01-22] MEDS: Cariprazine HCl 1.5 MG CAPSULE 4.5 MG PO (10:25)
[2023-01-22] MEDS: buPROPion HCl XL 300 MG TAB.ER.24H PO (10:26)
[2023-01-22] MEDS: Nitrofurantoin Monohyd/M-Cryst 100 MG CAPSULE PO ×2 (10:26→20:53)
[2023-01-22] MEDS: LORazepam 1 MG TABLET PO (13:11)
[2023-01-22 14:39] LABS: COVID-19 Test Negative (Negative); IDNOW Serial# 9DB6401D
[2023-01-22 15:23] VITALS: BP 120/64; PULSE 81; RESP 17; TEMP 36.4; O2SAT 98
--- NOTE | 2023-01-22 18:38 | PC.NURSE ---
Marjorie has been in bed resting for most of the shift today. Marjorie was compliant with her medications and her appetite is good. Marjorie has a flat affect and is difficult to engage in conversation. Steady gait. No behavioral concerns.
[2023-01-22] MEDS: Melatonin 3 MG TABLET PO (20:53)
[2023-01-22] MEDS: Divalproex Sodium ER 250 MG TAB.ER.24H PO (20:53)
[2023-01-22] MEDS: Divalproex Sodium ER 500 MG TAB.ER.24H 1500 MG PO (20:53)
[2023-01-22 21:29] VITALS: BMI 26.9
[2023-01-22 21:30] VITALS: BP 135/68; PULSE 88; RESP 18; TEMP 36.2; O2SAT 95
--- NOTE | 2023-01-22 21:47 | PC.ADMIT ---
Marjorie was admitted to S1 at 1945 from [facility] pod on a CV for the treatment of depression. She was sent to the ED from respite after staff noticed change in mental status and increased confusion and depression. She is alert and oriented x4 but appears to have poor insight into illness and situation. She stated I'm only going to be here for 3 days . She was cooperative with admission process and was oriented to unit. Sharps check was completed by staff. She appears flat and depressed but pleasant. She denies suicidal and homicidal thoughts and intent. She denies auditory and visual hallucinations. She was slow to respond in conversation and took long pauses before answering questions; appears thought blocked. She reports appetite is good but sleep has been off and on . She denies ETOH and substance abuse and UTOX was negative. She is being treated with antibiotics for a UTI. She was placed on 5min checks for safety.
[2023-01-23 08:00] VITALS: BP 117/62; PULSE 83; RESP 18; TEMP 36.3; O2SAT 95
[2023-01-23] MEDS: Nitrofurantoin Monohyd/M-Cryst 100 MG CAPSULE PO ×2 (08:13→20:48)
[2023-01-23] MEDS: buPROPion HCl XL 300 MG TAB.ER.24H PO (08:13)
[2023-01-23] MEDS: Cariprazine HCl 1.5 MG CAPSULE 4.5 MG PO (08:14)
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
--- NOTE | 2023-01-23 11:05 | PC.NURSE ---
Pharmacy called for Lachydrin will deliver sometime today.
[2023-01-23 18:00] VITALS: BP 135/60; PULSE 76; RESP 16; TEMP 35.7; O2SAT 97
[2023-01-23] MEDS: Divalproex Sodium ER 500 MG TAB.ER.24H 1500 MG PO (20:47)
[2023-01-23] MEDS: Divalproex Sodium ER 250 MG TAB.ER.24H PO (20:48)
[2023-01-23] MEDS: Melatonin 3 MG TABLET PO (20:49)
[2023-01-24 08:16] VITALS: BP 126/75; PULSE 81; RESP 16; TEMP 36.6; O2SAT 94
[2023-01-24] MEDS: Cariprazine HCl 1.5 MG CAPSULE 4.5 MG PO (08:17)
[2023-01-24] MEDS: buPROPion HCl XL 300 MG TAB.ER.24H PO (08:26)
[2023-01-24] MEDS: Nitrofurantoin Monohyd/M-Cryst 100 MG CAPSULE PO ×2 (08:26→20:27)
--- NOTE | 2023-01-24 08:37 | HO.PSYCHPN ---
Subjective Subjective Date of Service: 01/24/23 Reason For Visit: mental health emergency Subjective Notes: Conditional Voluntary Interim History: The nursing staff reported the patient has been quiet, anxious and dysphoric. She had been fully compliant with treatment, she has been treated for UTI. On interview the patient reports that she is feeling slightly better but still confused and dysphoric. No active suicidal ideation at this moment. Mental Status Exam Mental Status Exam Patient Appearance: Well Grooomed and Appropriate Patient Orientation: Person and Situation Level of Consciousness: Awake and Appropriate Patient Behavior: Appropriate and Cooperative Mood Description: Withdrawn Affect Description: Constricted Patient Cognition Impaired: Yes Ability to Follow Directions: Good Speech Pattern: Clear Hallucinations: None Delusions: Not Present Thought Process: Distracted and Evasive Thought Content: positive for [place], positive for Circumstantial and positive for Poverty of Content Judgement: Fair Diagnostics Vital Signs (24Hr): Vital Signs - 24 hr 01/23/23 18:00 01/24/23 08:16 Temperature 96.2 F L 97.8 F Pulse Rate 76 81 Respiratory Rate 16 16 Blood Pressure 135/60 126/75 Pulse Oximetry 97 94 Oxygen Delivery Method Room Air Room Air BMI result Body Mass Index 26.9 Labs 01/21/23 17:02 01/21/23 17:02 Labs: Laboratory Results - last 48 hr 01/22/23 14:16 COVID-19 ([facility]) Negative COVID-19 Clin Com See Note Medications Medications Current Medications Acetaminophen (Acetaminophen 325 Mg Tablet) 650 mg PO Q6H PRN PRN Reason: Headache/Pain Mild Scale (1-3) Al Hydroxide/Mg Hydroxide (Magnesium Hydrox/Alum Hydrox 30 Ml Oral.Susp) 30 ml PO Q6H PRN PRN Reason: Heartburn/Nausea Bupropion HCl (Bupropion Hcl Xl 300 Mg Tab.Er.24h) 300 mg PO DAILY [facility] Last Admin: 01/24/23 08:26 Dose: 300 mg Cariprazine (Cariprazine Hcl 1.5 Mg Capsule) 4.5 mg PO DAILY [facility] Last Admin: 01/24/23 08:17 Dose: 4.5 mg Divalproex Sodium (Divalproex Sodium Er 250 Mg Tab.Er.24h) 250 mg PO BEDTIME [facility] Last Admin: 01/23/23 20:48 Dose: 250 mg Divalproex Sodium (Divalproex Sodium Er 500 Mg Tab.Er.24h) 1,500 mg PO BEDTIME [facility] Last Admin: 01/23/23 20:47 Dose: 1,500 mg Hydroxyzine HCl (Hydroxyzine Hcl 25 Mg Tablet) 25 mg PO Q6H PRN PRN Reason: Anxiety Lactic Acid (Ammonium Lactate 12 % Lotion 226 Gm Bottle) 1 appl TOPICAL BID [facility]; Protocol Last Admin: 01/24/23 08:27 Dose: Not Given Magnesium Hydroxide (Milk Of Magnesia 30 Ml Oral.Susp) 30 ml PO DAILY PRN PRN Reason: Constipation Melatonin (Melatonin 3 Mg Tablet) 3 mg PO BEDTIME [facility] Last Admin: 01/23/23 20:49 Dose: 3 mg Nitrofurantoin Macrocrystals (Nitrofurantoin Monohyd/M-Cryst 100 Mg Capsule) 100 mg PO BID [facility] Last Admin: 01/24/23 08:26 Dose: 100 mg Trazodone HCl (Trazodone Hcl 50 Mg Tablet) 50 mg PO BEDTIME [id number] PRN PRN Reason: Insomnia Allergies Allergies Allergy/AdvReac Type Severity Reaction Status Date / Time No Known Allergies Allergy Verified 12/13/22 17:46 Assessment & Plan Assessment & Plan (1) Bipolar disorder, most recent episode depressed: Status: Acute Code(s): F31.30 - Bipolar disorder, current episode depressed, mild or moderate severity, unspecified (2) Neurodegenerative cognitive impairment: Status: Acute Code(s): G31.9 - Degenerative disease of nervous system, unspecified (3) Acute UTI: Status: Acute Code(s): N39.0 - Urinary tract infection, site not specified (4) Delirium: Status: Acute Code(s): R41.0 - Disorientation, unspecified Plan The patient is an elderly female with a past history of bipolar disorder, dementia and now admitted for delirium due to UTI. She was residing at [facility] and she had being more confused, hypoactive and despondent in the last 4 days prior to the admission at the emergency room. On the ED, she was diagnosed with a UTI and started on antibiotics. Plan 1. Gather collateral information. 2. Continue with regular medications. 3. Continue with antibiotics. 4. Reassessment with results Reason for continued inpatient stay Substantial Risk for: inability to function, rapid decompensation and med/psych decompensation Time Spent With Patient Time: Total time managing care of this patient today __20__ minutes.
--- NOTE | 2023-01-24 10:52 | PC.NURSE ---
Pt scored a 21/30 on the MOCA indicating mild cognitive impairment. Pt scored a 4.8 on the ACL screening indicating 30% cognitive assistance.
[2023-01-24 18:00] VITALS: BP 147/72; PULSE 77; RESP 16; TEMP 36.1; O2SAT 98
[2023-01-24] MEDS: Divalproex Sodium ER 250 MG TAB.ER.24H PO (20:26)
[2023-01-24] MEDS: Divalproex Sodium ER 500 MG TAB.ER.24H 1500 MG PO (20:26)
[2023-01-24] MEDS: Melatonin 3 MG TABLET PO (20:27)
[2023-01-25 08:27] VITALS: BP 120/71; PULSE 86; RESP 16; TEMP 36.3; O2SAT 98
[2023-01-25] MEDS: Cariprazine HCl 1.5 MG CAPSULE 4.5 MG PO (08:30)
[2023-01-25] MEDS: buPROPion HCl XL 300 MG TAB.ER.24H PO (08:30)
[2023-01-25] MEDS: Nitrofurantoin Monohyd/M-Cryst 100 MG CAPSULE PO ×2 (08:30→20:14)
[2023-01-25 09:11] LABS: Valproate 117.4 mcg/mL (50.0-100.0)
--- NOTE | 2023-01-25 09:28 | P.PNPSI_ITS ---
Subjective Subjective Date of Service: 01/25/23 Reason For Visit: mental health emergency Subjective Notes: Conditional Voluntary Interim History: The nursing staff reported the patient complained of depression. She is feeling better but she still has some delayed speech responds. She slept well and she has been medication compliant. On interview the patient denies new symptoms she looks slightly confused but much better since she is on antibiotics. Mental Status Exam Mental Status Exam Patient Appearance: Appropriate Patient Orientation: Person and Situation Level of Consciousness: Awake Patient Behavior: Guarded and Cooperative Mood Description: Withdrawn Affect Description: Constricted Patient Cognition Impaired: Yes Ability to Follow Directions: Good Speech Pattern: Clear Hallucinations: None Delusions: Not Present Thought Process: Distracted and Evasive Thought Content: positive for [place], positive for Circumstantial and positive for Poverty of Content Judgement: Fair Diagnostics Vital Signs (24Hr): Vital Signs - 24 hr 01/24/23 18:00 01/25/23 08:27 Temperature 96.9 F 97.4 F Pulse Rate 77 86 Respiratory Rate 16 16 Blood Pressure 147/72 H 120/71 Pulse Oximetry 98 98 Oxygen Delivery Method Room Air Room Air BMI result Body Mass Index 26.9 Labs 01/21/23 17:02 01/21/23 17:02 Labs: Laboratory Results - last 48 hr 01/25/23 08:37 Valproic Acid 117.4 H* Medications Medications Current Medications Acetaminophen (Acetaminophen 325 Mg Tablet) 650 mg PO Q6H PRN PRN Reason: Headache/Pain Mild Scale (1-3) Al Hydroxide/Mg Hydroxide (Magnesium Hydrox/Alum Hydrox 30 Ml Oral.Susp) 30 ml PO Q6H PRN PRN Reason: Heartburn/Nausea Bupropion HCl (Bupropion Hcl Xl 300 Mg Tab.Er.24h) 300 mg PO DAILY [facility] Last Admin: 01/25/23 08:30 Dose: 300 mg Cariprazine (Cariprazine Hcl 1.5 Mg Capsule) 4.5 mg PO DAILY [facility] Last Admin: 01/25/23 08:30 Dose: 4.5 mg Divalproex Sodium (Divalproex Sodium Er 250 Mg Tab.Er.24h) 250 mg PO BEDTIME [facility] Last Admin: 01/24/23 20:26 Dose: 250 mg Divalproex Sodium (Divalproex Sodium Er 500 Mg Tab.Er.24h) 1,500 mg PO BEDTIME [facility] Last Admin: 01/24/23 20:26 Dose: 1,500 mg Hydroxyzine HCl (Hydroxyzine Hcl 25 Mg Tablet) 25 mg PO Q6H PRN PRN Reason: Anxiety Lactic Acid (Ammonium Lactate 12 % Lotion 226 Gm Bottle) 1 appl TOPICAL BID [facility]; Protocol Last Admin: 01/25/23 08:33 Dose: Not Given Magnesium Hydroxide (Milk Of Magnesia 30 Ml Oral.Susp) 30 ml PO DAILY PRN PRN Reason: Constipation Melatonin (Melatonin 3 Mg Tablet) 3 mg PO BEDTIME [facility] Last Admin: 01/24/23 20:27 Dose: 3 mg Nitrofurantoin Macrocrystals (Nitrofurantoin Monohyd/M-Cryst 100 Mg Capsule) 100 mg PO BID [facility] Last Admin: 01/25/23 08:30 Dose: 100 mg Trazodone HCl (Trazodone Hcl 50 Mg Tablet) 50 mg PO BEDTIME MRX1 PRN PRN Reason: Insomnia Allergies Allergies Allergy/AdvReac Type Severity Reaction Status Date / Time No Known Allergies Allergy Verified 12/13/22 17:46 Assessment & Plan Assessment & Plan (1) Bipolar disorder, most recent episode depressed: Status: Acute Code(s): F31.30 - Bipolar disorder, current episode depressed, mild or moderate severity, unspecified (2) Neurodegenerative cognitive impairment: Status: Acute Code(s): G31.9 - Degenerative disease of nervous system, unspecified (3) Acute UTI: Status: Acute Code(s): N39.0 - Urinary tract infection, site not specified (4) Delirium: Status: Acute Code(s): R41.0 - Disorientation, unspecified Plan The patient is an elderly female with a past history of bipolar disorder, dementia and now admitted for delirium due to UTI. She was residing at [facility] and she had being more confused, hypoactive and despondent in the last 4 days prior to the admission at the emergency room. On the ED, she was diagnosed with a UTI and started on antibiotics. Plan 1. Gather collateral information. 2. Continue with regular medications. 3. Continue with antibiotics. 4. Reassessment with results Reason for continued inpatient stay Substantial Risk for: inability to function, rapid decompensation and med/psych decompensation Time Spent With Patient Time: Total time managing care of this patient today __20__ minutes.
[2023-01-25 18:00] VITALS: BP 119/68; PULSE 75; RESP 18; TEMP 36.6; O2SAT 95
[2023-01-25] MEDS: Divalproex Sodium ER 500 MG TAB.ER.24H 1500 MG PO (20:14)
[2023-01-25] MEDS: Divalproex Sodium ER 250 MG TAB.ER.24H PO (20:14)
[2023-01-25] MEDS: Melatonin 3 MG TABLET PO (20:14)
[2023-01-26 08:25] VITALS: BP 134/82; PULSE 83; RESP 16; TEMP 36.7; O2SAT 97
[2023-01-26] MEDS: Cariprazine HCl 1.5 MG CAPSULE 4.5 MG PO (08:26)
[2023-01-26] MEDS: Nitrofurantoin Monohyd/M-Cryst 100 MG CAPSULE PO ×2 (08:26→20:32)
[2023-01-26] MEDS: buPROPion HCl XL 300 MG TAB.ER.24H PO (08:28)
--- NOTE | 2023-01-26 12:16 | HO.PSYCHPN ---
Subjective Subjective Date of Service: 01/26/23 Reason For Visit: mental health emergency Subjective Notes: Conditional Voluntary Interim History: The nursing staff reported the patient had been alert oriented x3, she have showered and she shows some thought blocking but he was easily redirectable. She slept 8 hours. The occupational therapist reported that she scored 21/30 on the Jennings test and 4.8. On interview the patient reports some poor attention span but denies suicidal or homicidal ideation. I explained her that her delayed responses most likely due to her UTI that it has been treated. We will repeat blood work and UA tomorrow morning Mental Status Exam Mental Status Exam Patient Appearance: Well Grooomed and Appropriate Patient Orientation: Person and Situation Level of Consciousness: Awake and Appropriate Patient Behavior: Guarded and Passive Mood Description: Withdrawn Affect Description: Constricted Patient Cognition Impaired: Yes Speech Pattern: Clear Hallucinations: None Delusions: Not Present Thought Process: Linear Thought Content: positive for [place], positive for Circumstantial and positive for Poverty of Content Judgement: Fair Diagnostics Vital Signs (24Hr): Vital Signs - 24 hr 01/25/23 18:00 01/26/23 08:25 Temperature 97.9 F 98.1 F Pulse Rate 75 83 Respiratory Rate 18 16 Blood Pressure 119/68 134/82 Pulse Oximetry 95 97 Oxygen Delivery Method Room Air Room Air BMI result Body Mass Index 26.9 Labs 01/21/23 17:02 01/21/23 17:02 Labs: Laboratory Results - last 48 hr 01/25/23 08:37 Valproic Acid 117.4 H* Medications Medications Current Medications Acetaminophen (Acetaminophen 325 Mg Tablet) 650 mg PO Q6H PRN PRN Reason: Headache/Pain Mild Scale (1-3) Al Hydroxide/Mg Hydroxide (Magnesium Hydrox/Alum Hydrox 30 Ml Oral.Susp) 30 ml PO Q6H PRN PRN Reason: Heartburn/Nausea Bupropion HCl (Bupropion Hcl Xl 300 Mg Tab.Er.24h) 300 mg PO DAILY [facility] Last Admin: 01/26/23 08:28 Dose: 300 mg Cariprazine (Cariprazine Hcl 1.5 Mg Capsule) 4.5 mg PO DAILY [facility] Last Admin: 01/26/23 08:26 Dose: 4.5 mg Divalproex Sodium (Divalproex Sodium Er 250 Mg Tab.Er.24h) 250 mg PO BEDTIME [facility] Last Admin: 01/25/23 20:14 Dose: 250 mg Divalproex Sodium (Divalproex Sodium Er 500 Mg Tab.Er.24h) 1,500 mg PO BEDTIME [facility] Last Admin: 01/25/23 20:14 Dose: 1,500 mg Hydroxyzine HCl (Hydroxyzine Hcl 25 Mg Tablet) 25 mg PO Q6H PRN PRN Reason: Anxiety Lactic Acid (Ammonium Lactate 12 % Lotion 226 Gm Bottle) 1 appl TOPICAL BID [facility]; Protocol Last Admin: 01/26/23 08:29 Dose: Not Given Magnesium Hydroxide (Milk Of Magnesia 30 Ml Oral.Susp) 30 ml PO DAILY PRN PRN Reason: Constipation Melatonin (Melatonin 3 Mg Tablet) 3 mg PO BEDTIME [facility] Last Admin: 01/25/23 20:14 Dose: 3 mg Nitrofurantoin Macrocrystals (Nitrofurantoin Monohyd/M-Cryst 100 Mg Capsule) 100 mg PO BID [facility] Last Admin: 01/26/23 08:26 Dose: 100 mg Trazodone HCl (Trazodone Hcl 50 Mg Tablet) 50 mg PO BEDTIME MRX1 PRN PRN Reason: Insomnia Allergies Allergies Allergy/AdvReac Type Severity Reaction Status Date / Time No Known Allergies Allergy Verified 12/13/22 17:46 Assessment & Plan Assessment & Plan (1) Bipolar disorder, most recent episode depressed: Status: Acute Code(s): F31.30 - Bipolar disorder, current episode depressed, mild or moderate severity, unspecified (2) Neurodegenerative cognitive impairment: Status: Acute Code(s): G31.9 - Degenerative disease of nervous system, unspecified (3) Acute UTI: Status: Acute Code(s): N39.0 - Urinary tract infection, site not specified (4) Delirium: Status: Acute Code(s): R41.0 - Disorientation, unspecified Plan The patient is an elderly female with a past history of bipolar disorder, dementia and now admitted for delirium due to UTI. She was residing at [facility] and she had being more confused, hypoactive and despondent in the last 4 days prior to the admission at the emergency room. On the ED, she was diagnosed with a UTI and started on antibiotics. Plan 1. Gather collateral information. 2. Continue with regular medications. 3. Continue with antibiotics. 4. Reassessment with results 5. CBC with differential, basic metabolic panel and UA for tomorrow January 27 Reason for continued inpatient stay Substantial Risk for: inability to function, rapid decompensation and med/psych decompensation Time Spent With Patient Time: Total time managing care of this patient today __20__ minutes.
[2023-01-26 18:00] VITALS: BP 130/68; PULSE 75; RESP 18; TEMP 36.1; O2SAT 98
[2023-01-26 18:06] LABS: Appearance Urine Clear; Color Urine Yellow; Glucose Urine UA Negative (Negative); Leukocyte Esterase Urine Large (3+) (Negative); Nitrite Urine Negative (Negative); PH 5.5 (5.0-9.0); UMIC TRIGGER UACC YES; Urine Blood Negative (Negative); Urine Ketones Trace mg/dL (Negative); Urine Protein Negative (Neg-Trace)
[2023-01-26 18:13] LABS: Bacteria Urine Trace (None Seen); Hyaline Casts Urine 0-2 /LPF (0-2); RBC Urine 0-2 /HPF (0-2); UACC Culture Trigger YES; WBC Urine 21-50 /HPF (0-5)
[2023-01-26] MEDS: Divalproex Sodium ER 250 MG TAB.ER.24H PO (20:32)
[2023-01-26] MEDS: Melatonin 3 MG TABLET PO (20:32)
[2023-01-26] MEDS: Divalproex Sodium ER 500 MG TAB.ER.24H 1500 MG PO (20:32)
[2023-01-27 08:14] VITALS: BP 131/81; PULSE 89; RESP 18; TEMP 36.1; O2SAT 97
[2023-01-27] MEDS: Nitrofurantoin Monohyd/M-Cryst 100 MG CAPSULE PO ×2 (08:42→20:48)
[2023-01-27] MEDS: buPROPion HCl XL 300 MG TAB.ER.24H PO (08:42)
[2023-01-27] MEDS: Cariprazine HCl 1.5 MG CAPSULE 4.5 MG PO (08:42)
[2023-01-27 08:53] LABS: MANUAL DIFF FLAG NO
[2023-01-27 09:04] LABS: Basophils Percent Auto 0.4 % (0-2); Eosinophils Percent Auto 0.4 % (0-4); Hematocrit 44.2 % (37.0-47.0); Hemoglobin 13.8 g/dl (12.0-16.0); Imm Gran Abs Auto 0.02 X10*3/uL (0.00-0.03); Imm Gran Pct Auto 0.3 % (0.0-0.4); Lymphocytes Absolute Auto 1.5 X10*3/uL (1.2-4.9); Mean Corpuscular HGB Conc 31.2 g/dl (31.0-35.0); Mean Corpuscular Hemoglobin 28.7 pg (27.0-33.0); Mean Corpuscular Volume 91.9 fL (80.0-98.0); Mean Platelet Volume 9.7 fL (9.4-12.3); Monocytes Absolute Auto 0.7 X10*3/uL (0.1-1.2); Monocytes Percent Auto 9.3 % (2-11); Neutrophils Absolute Auto 4.7 x10*3/uL (2.0-8.3); Neutrophils Percent Auto 67.6 % (45-73); Platelet Count 293 X10*3/uL (160-400); Red Blood Count 4.81 X10*6/uL (4.20-5.50); Red Cell Distribution Width 14.1 % (11.0-16.0)
[2023-01-27 09:10] LABS: Anion Gap 19 (12-20); Blood Urea Nitrogen 21 mg/dL (9-16); Carbon Dioxide 25 mmol/L (22-29); Chloride 101 mmol/L (96-108); Creatinine Clr Calc Pharmacy 43.8; Estimated Glomerular Filt Rate 48; Glucose Random 140 mg/dL (60-115); Sodium 141 mmol/L (135-145)
--- NOTE | 2023-01-27 09:58 | P.PNPSI_ITS ---
Subjective Subjective Date of Service: 01/27/23 Reason For Visit: mental health emergency Subjective Notes: Conditional Voluntary Interim History: The nursing staff reported the patient had been showing some mild thought process blocking. She denies suicidal ideation but she looks slightly confused. The occupational therapy reported that they did a [place] and she scored 21/30 and 4.8 on the Vidal test. On interview the patient reports that she is feeling better but she looks internally preoccupied, hypoactive, recovering from the delirium due to UTI. Today we order blood work with no changes but her UA has shown less WBCs still coming a positive, most likely contamination. Mental Status Exam Mental Status Exam Patient Appearance: Appropriate Patient Orientation: Person and Situation Level of Consciousness: Awake and Appropriate Patient Behavior: Guarded and Passive Mood Description: Withdrawn Affect Description: Constricted Patient Cognition Impaired: Yes Ability to Follow Directions: Good Speech Pattern: Clear Hallucinations: None Delusions: Not Present Thought Process: Distracted and Slowed Thinking Thought Content: positive for [place], positive for [place] of [place] and positive for Thought Blocking Judgement: Fair Diagnostics Vital Signs (24Hr): Vital Signs - 24 hr 01/26/23 18:00 01/27/23 08:14 Temperature 97 F 97.0 F Pulse Rate 75 89 Respiratory Rate 18 18 Blood Pressure 130/68 131/81 Pulse Oximetry 98 97 Oxygen Delivery Method Room Air Room Air BMI result Body Mass Index 26.9 Labs 01/27/23 08:43 01/27/23 08:43 Labs: Laboratory Results - last 48 hr 01/26/23 01/26/23 01/26/23 17:15 17:15 17:15 WBC RBC Hgb Hct MCV MCH MCHC RDW Plt Count MPV Immature Gran % (Auto) Neut % (Auto) Lymph % (Auto) [place] % (Auto) Eos % (Auto) Baso % (Auto) Lymph # (Auto) [place] # (Auto) Eos # (Auto) Baso # (Auto) Abs Immat Gran (auto) Absolute Neuts (auto) Absolute Nucleated RBC Nucleated RBC % (auto) Sodium Potassium Chloride Carbon Dioxide Anion Gap BUN Creatinine Estim Creat Clear Calc Estimated GFR Random Glucose Calcium Urine Color Yellow Cancelled Urine Appearance Clear Cancelled Urine pH 5.5 Ur Specific [place] Urine Protein Urine Glucose (UA) Urine Ketones Urine Blood Urine Nitrite Ur Leukocyte Esterase Urine RBC Urine WBC Urine WBC Clumps Ur Squamous Epith Cells Ur Transition Epith Cell Ur Renal Epithelial Cell Calcium Oxalate Crystal Leucine Crystals Cystine Crystals Tyrosine Crystals Other Crystals Urine Bacteria Urine Parasites Bilirubin Casts Epithelial Casts Fatty Casts Hyaline Casts Granular Casts Waxy Casts Broad Casts RBC Casts WBC Casts Other Casts Urine Trichomonas Urine Yeast 01/26/23 01/26/23 01/26/23 17:15 17:15 17:15 WBC RBC Hgb Hct MCV MCH MCHC RDW Plt Count MPV Immature Gran % (Auto) Neut % (Auto) Lymph % (Auto) [place] % (Auto) Eos % (Auto) Baso % (Auto) Lymph # (Auto) [place] # (Auto) Eos # (Auto) Baso # (Auto) Abs Immat Gran (auto) Absolute Neuts (auto) Absolute Nucleated RBC Nucleated RBC % (auto) Sodium Potassium Chloride Carbon Dioxide Anion Gap BUN Creatinine Estim Creat Clear Calc Estimated GFR Random Glucose Calcium Urine Color Urine Appearance Urine pH Cancelled Ur Specific [place] 1.010 Cancelled Urine Protein Negative Cancelled Urine Glucose (UA) Negative Urine Ketones Urine Blood Urine Nitrite Ur Leukocyte Esterase Urine RBC Urine WBC Urine WBC Clumps Ur Squamous Epith Cells Ur Transition Epith Cell Ur Renal Epithelial Cell Calcium Oxalate Crystal Leucine Crystals Cystine Crystals Tyrosine Crystals Other Crystals Urine Bacteria Urine Parasites Bilirubin Casts Epithelial Casts Fatty Casts Hyaline Casts Granular Casts Waxy Casts Broad Casts RBC Casts WBC Casts Other Casts Urine Trichomonas Urine Yeast 01/26/23 01/26/23 01/26/23 17:15 17:15 17:15 WBC RBC Hgb Hct MCV MCH MCHC RDW Plt Count MPV Immature Gran % (Auto) Neut % (Auto) Lymph % (Auto) [place] % (Auto) Eos % (Auto) Baso % (Auto) Lymph # (Auto) [place] # (Auto) Eos # (Auto) Baso # (Auto) Abs Immat Gran (auto) Absolute Neuts (auto) Absolute Nucleated RBC Nucleated RBC % (auto) Sodium Potassium Chloride Carbon Dioxide Anion Gap BUN Creatinine Estim Creat Clear Calc Estimated GFR Random Glucose Calcium Urine Color Urine Appearance Urine pH Ur Specific [place] Urine Protein Urine Glucose (UA) Cancelled Urine Ketones Trace Cancelled Urine Blood Negative Cancelled Urine Nitrite Negative Ur Leukocyte Esterase Urine RBC Urine WBC Urine WBC Clumps Ur Squamous Epith Cells Ur Transition Epith Cell Ur Renal Epithelial Cell Calcium Oxalate Crystal Leucine Crystals Cystine Crystals Tyrosine Crystals Other Crystals Urine Bacteria Urine Parasites Bilirubin Casts Epithelial Casts Fatty Casts Hyaline Casts Granular Casts Waxy Casts Broad Casts RBC Casts WBC Casts Other Casts Urine Trichomonas Urine Yeast 01/26/23 01/26/23 01/26/23 17:15 17:15 17:15 WBC RBC Hgb Hct MCV MCH MCHC RDW Plt Count MPV Immature Gran % (Auto) Neut % (Auto) Lymph % (Auto) [place] % (Auto) Eos % (Auto) Baso % (Auto) Lymph # (Auto) [place] # (Auto) Eos # (Auto) Baso # (Auto) Abs Immat Gran (auto) Absolute Neuts (auto) Absolute Nucleated RBC Nucleated RBC % (auto) Sodium Potassium Chloride Carbon Dioxide Anion Gap BUN Creatinine Estim Creat Clear Calc Estimated GFR Random Glucose Calcium Urine Color Urine Appearance Urine pH Ur Specific [place] Urine Protein Urine Glucose (UA) Urine Ketones Urine Blood Urine Nitrite Cancelled Ur Leukocyte Esterase Large (3+) H Cancelled Urine RBC 0-2 Cancelled Urine WBC 21-50 H Urine WBC Clumps Ur Squamous Epith Cells Ur Transition Epith Cell Ur Renal Epithelial Cell Calcium Oxalate Crystal Leucine Crystals Cystine Crystals Tyrosine Crystals Other Crystals Urine Bacteria Urine Parasites Bilirubin Casts Epithelial Casts Fatty Casts Hyaline Casts Granular Casts Waxy Casts Broad Casts RBC Casts WBC Casts Other Casts Urine Trichomonas Urine Yeast 01/26/23 01/26/23 01/26/23 17:15 17:15 17:15 WBC RBC Hgb Hct MCV MCH MCHC RDW Plt Count MPV Immature Gran % (Auto) Neut % (Auto) Lymph % (Auto) [place] % (Auto) Eos % (Auto) Baso % (Auto) Lymph # (Auto) [place] # (Auto) Eos # (Auto) Baso # (Auto) Abs Immat Gran (auto) Absolute Neuts (auto) Absolute Nucleated RBC Nucleated RBC % (auto) Sodium Potassium Chloride Carbon Dioxide Anion Gap BUN Creatinine Estim Creat Clear Calc Estimated GFR Random Glucose Calcium Urine Color Urine Appearance Urine pH Ur Specific [place] Urine Protein Urine Glucose (UA) Urine Ketones Urine Blood Urine Nitrite Ur Leukocyte Esterase Urine RBC Urine WBC Cancelled Urine WBC Clumps Cancelled Ur Squamous Epith Cells 6-10 Cancelled Ur Transition Epith Cell Cancelled Ur Renal Epithelial Cell Cancelled Calcium Oxalate Crystal Cancelled Leucine Crystals Cancelled Cystine Crystals Cancelled Tyrosine Crystals Cancelled Other Crystals Cancelled Urine Bacteria Trace Cancelled Urine Parasites Cancelled Bilirubin Casts Cancelled Epithelial Casts Cancelled Fatty Casts Cancelled Hyaline Casts 0-2 Granular Casts Waxy Casts Broad Casts RBC Casts WBC Casts Other Casts Urine Trichomonas Urine Yeast 01/26/23 01/27/23 17:15 08:43 WBC 7.0 RBC 4.81 Hgb 13.8 Hct 44.2 MCV 91.9 MCH 28.7 MCHC 31.2 RDW 14.1 Plt Count 293 MPV 9.7 Immature Gran % (Auto) 0.3 Neut % (Auto) 67.6 Lymph % (Auto) 22.0 [place] % (Auto) 9.3 Eos % (Auto) 0.4 Baso % (Auto) 0.4 Lymph # (Auto) 1.5 [place] # (Auto) 0.7 Eos # (Auto) 0.0 Baso # (Auto) 0.0 Abs Immat Gran (auto) 0.02 Absolute Neuts (auto) 4.7 Absolute Nucleated RBC 0.000 Nucleated RBC % (auto) 0.0 Sodium 141 Potassium 4.0 Chloride 101 Carbon Dioxide 25 Anion Gap 19 BUN 21 H Creatinine 1.13 Estim Creat Clear Calc 43.8 Estimated GFR 48 Random Glucose 140 H Calcium 9.0 Urine Color Urine Appearance Urine pH Ur Specific [place] Urine Protein Urine Glucose (UA) Urine Ketones Urine Blood Urine Nitrite Ur Leukocyte Esterase Urine RBC Urine WBC Urine WBC Clumps Ur Squamous Epith Cells Ur Transition Epith Cell Ur Renal Epithelial Cell Calcium Oxalate Crystal Leucine Crystals Cystine Crystals Tyrosine Crystals Other Crystals Urine Bacteria Urine Parasites Bilirubin Casts Epithelial Casts Fatty Casts Hyaline Casts Cancelled Granular Casts Cancelled Waxy Casts Cancelled Broad Casts Cancelled RBC Casts Cancelled WBC Casts Cancelled Other Casts Cancelled Urine Trichomonas Cancelled Urine Yeast Cancelled Medications Medications Current Medications Acetaminophen (Acetaminophen 325 Mg Tablet) 650 mg PO Q6H PRN PRN Reason: Headache/Pain Mild Scale (1-3) Al Hydroxide/Mg Hydroxide (Magnesium Hydrox/Alum Hydrox 30 Ml Oral.Susp) 30 ml PO Q6H PRN PRN Reason: Heartburn/Nausea Bupropion HCl (Bupropion Hcl Xl 300 Mg Tab.Er.24h) 300 mg PO DAILY [facility] Last Admin: 01/27/23 08:42 Dose: 300 mg Cariprazine (Cariprazine Hcl 1.5 Mg Capsule) 4.5 mg PO DAILY [facility] Last Admin: 01/27/23 08:42 Dose: 4.5 mg Divalproex Sodium (Divalproex Sodium Er 250 Mg Tab.Er.24h) 250 mg PO BEDTIME [facility] Last Admin: 01/26/23 20:32 Dose: 250 mg Divalproex Sodium (Divalproex Sodium Er 500 Mg Tab.Er.24h) 1,500 mg PO BEDTIME [facility] Last Admin: 01/26/23 20:32 Dose: 1,500 mg Hydroxyzine HCl (Hydroxyzine Hcl 25 Mg Tablet) 25 mg PO Q6H PRN PRN Reason: Anxiety Lactic Acid (Ammonium Lactate 12 % Lotion 226 Gm Bottle) 1 appl TOPICAL BID [facility]; Protocol Last Admin: 01/27/23 08:45 Dose: Not Given Magnesium Hydroxide (Milk Of Magnesia 30 Ml Oral.Susp) 30 ml PO DAILY PRN PRN Reason: Constipation Melatonin (Melatonin 3 Mg Tablet) 3 mg PO BEDTIME [facility] Last Admin: 01/26/23 20:32 Dose: 3 mg Nitrofurantoin Macrocrystals (Nitrofurantoin Monohyd/M-Cryst 100 Mg Capsule) 100 mg PO BID [facility] Last Admin: 01/27/23 08:42 Dose: 100 mg Trazodone HCl (Trazodone Hcl 50 Mg Tablet) 50 mg PO BEDTIME MRX1 PRN PRN Reason: Insomnia Allergies Allergies Allergy/AdvReac Type Severity Reaction Status Date / Time No Known Allergies Allergy Verified 12/13/22 17:46 Assessment & Plan Assessment & Plan (1) Bipolar disorder, most recent episode depressed: Status: Acute Code(s): F31.30 - Bipolar disorder, current episode depressed, mild or moderate severity, unspecified (2) Neurodegenerative cognitive impairment: Status: Acute Code(s): G31.9 - Degenerative disease of nervous system, unspecified (3) Acute UTI: Status: Acute Code(s): N39.0 - Urinary tract infection, site not specified (4) Delirium: Status: Acute Code(s): R41.0 - Disorientation, unspecified Plan The patient is an elderly female with a past history of bipolar disorder, dementia and now admitted for delirium due to UTI. She was residing at [facility] and she had being more confused, hypoactive and despondent in the last 4 days prior to the admission at the emergency room. On the ED, she was diagnosed with a UTI and started on antibiotics. Plan 1. Gather collateral information. 2. Continue with regular medications. 3. Continue with antibiotics. 4. Reassessment with results 5. CBC with differential, basic metabolic panel and UA for January 27. UA came still positive but blood work within normal limits. Reason for continued inpatient stay Substantial Risk for: inability to function, rapid decompensation and med/psych decompensation Time Spent With Patient Time: Total time managing care of this patient today __20__ minutes.
[2023-01-27] MEDS: Divalproex Sodium ER 500 MG TAB.ER.24H 1500 MG PO (20:48)
[2023-01-27] MEDS: Divalproex Sodium ER 250 MG TAB.ER.24H PO (20:48)
[2023-01-27] MEDS: Melatonin 3 MG TABLET PO (20:49)
[2023-01-27 21:12] VITALS: BP 130/80; PULSE 85; RESP 20; TEMP 36.6; O2SAT 98
[2023-01-28 06:00] VITALS: BP 119/70; PULSE 82; RESP 16; TEMP 36.6; O2SAT 97
[2023-01-28] MEDS: Cariprazine HCl 1.5 MG CAPSULE 4.5 MG PO (08:44)
[2023-01-28] MEDS: buPROPion HCl XL 300 MG TAB.ER.24H PO (08:44)
[2023-01-28] MEDS: Nitrofurantoin Monohyd/M-Cryst 100 MG CAPSULE PO ×2 (08:44→20:42)
--- NOTE | 2023-01-28 14:46 | P.PNPSI_ITS ---
Subjective Subjective Date of Service: 01/28/23 Reason For Visit: mental health emergency Subjective Notes: Conditional Voluntary Interim History: The nursing staff reported the patient Depjadete had been a little high but she has not been over-sedated. She had been fully compliant with treatments the occupational therapist reported that she goes to group and yesterday her who she is came to visit him. On interview the patient looks more awake and alert but still with some delayed responses probably to delirium resolving. Her blood per came back within normal limits we are repeating a Depakote level tomorrow. Mental Status Exam Mental Status Exam Patient Appearance: Appropriate Patient Orientation: Person and Situation Level of Consciousness: Awake and Appropriate Patient Behavior: Guarded and Passive Mood Description: Withdrawn Affect Description: Constricted Patient Cognition Impaired: Yes Ability to Follow Directions: Good Speech Pattern: Clear Hallucinations: None Delusions: Not Present Thought Process: Linear Thought Content: positive for [place] and positive for [place] Oriented Judgement: Fair Diagnostics Vital Signs (24Hr): Vital Signs - 24 hr 01/27/23 21:12 01/28/23 06:00 Temperature 98 F 97.9 F Pulse Rate 85 82 Respiratory Rate 20 16 Blood Pressure 130/80 119/70 Pulse Oximetry 98 97 Oxygen Delivery Method Room Air Room Air BMI result Body Mass Index 26.9 Labs 01/27/23 08:43 01/27/23 08:43 Labs: Laboratory Results - last 48 hr 01/26/23 01/26/23 01/26/23 17:15 17:15 17:15 WBC RBC Hgb Hct MCV MCH MCHC RDW Plt Count MPV Immature Gran % (Auto) Neut % (Auto) Lymph % (Auto) [place] % (Auto) Eos % (Auto) Baso % (Auto) Lymph # (Auto) [place] # (Auto) Eos # (Auto) Baso # (Auto) Abs Immat Gran (auto) Absolute Neuts (auto) Absolute Nucleated RBC Nucleated RBC % (auto) Sodium Potassium Chloride Carbon Dioxide Anion Gap BUN Creatinine Estim Creat Clear Calc Estimated GFR Random Glucose Calcium Urine Color Yellow Cancelled Urine Appearance Clear Cancelled Urine pH 5.5 Ur Specific [place] Urine Protein Urine Glucose (UA) Urine Ketones Urine Blood Urine Nitrite Ur Leukocyte Esterase Urine RBC Urine WBC Urine WBC Clumps Ur Squamous Epith Cells Ur Transition Epith Cell Ur Renal Epithelial Cell Calcium Oxalate Crystal Leucine Crystals Cystine Crystals Tyrosine Crystals Other Crystals Urine Bacteria Urine Parasites Bilirubin Casts Epithelial Casts Fatty Casts Hyaline Casts Granular Casts Waxy Casts Broad Casts RBC Casts WBC Casts Other Casts Urine Trichomonas Urine Yeast 01/26/23 01/26/23 01/26/23 17:15 17:15 17:15 WBC RBC Hgb Hct MCV MCH MCHC RDW Plt Count MPV Immature Gran % (Auto) Neut % (Auto) Lymph % (Auto) [place] % (Auto) Eos % (Auto) Baso % (Auto) Lymph # (Auto) [place] # (Auto) Eos # (Auto) Baso # (Auto) Abs Immat Gran (auto) Absolute Neuts (auto) Absolute Nucleated RBC Nucleated RBC % (auto) Sodium Potassium Chloride Carbon Dioxide Anion Gap BUN Creatinine Estim Creat Clear Calc Estimated GFR Random Glucose Calcium Urine Color Urine Appearance Urine pH Cancelled Ur Specific [place] 1.010 Cancelled Urine Protein Negative Cancelled Urine Glucose (UA) Negative Urine Ketones Urine Blood Urine Nitrite Ur Leukocyte Esterase Urine RBC Urine WBC Urine WBC Clumps Ur Squamous Epith Cells Ur Transition Epith Cell Ur Renal Epithelial Cell Calcium Oxalate Crystal Leucine Crystals Cystine Crystals Tyrosine Crystals Other Crystals Urine Bacteria Urine Parasites Bilirubin Casts Epithelial Casts Fatty Casts Hyaline Casts Granular Casts Waxy Casts Broad Casts RBC Casts WBC Casts Other Casts Urine Trichomonas Urine Yeast 01/26/23 01/26/23 01/26/23 17:15 17:15 17:15 WBC RBC Hgb Hct MCV MCH MCHC RDW Plt Count MPV Immature Gran % (Auto) Neut % (Auto) Lymph % (Auto) [place] % (Auto) Eos % (Auto) Baso % (Auto) Lymph # (Auto) [place] # (Auto) Eos # (Auto) Baso # (Auto) Abs Immat Gran (auto) Absolute Neuts (auto) Absolute Nucleated RBC Nucleated RBC % (auto) Sodium Potassium Chloride Carbon Dioxide Anion Gap BUN Creatinine Estim Creat Clear Calc Estimated GFR Random Glucose Calcium Urine Color Urine Appearance Urine pH Ur Specific [place] Urine Protein Urine Glucose (UA) Cancelled Urine Ketones Trace Cancelled Urine Blood Negative Cancelled Urine Nitrite Negative Ur Leukocyte Esterase Urine RBC Urine WBC Urine WBC Clumps Ur Squamous Epith Cells Ur Transition Epith Cell Ur Renal Epithelial Cell Calcium Oxalate Crystal Leucine Crystals Cystine Crystals Tyrosine Crystals Other Crystals Urine Bacteria Urine Parasites Bilirubin Casts Epithelial Casts Fatty Casts Hyaline Casts Granular Casts Waxy Casts Broad Casts RBC Casts WBC Casts Other Casts Urine Trichomonas Urine Yeast 01/26/23 01/26/23 01/26/23 17:15 17:15 17:15 WBC RBC Hgb Hct MCV MCH MCHC RDW Plt Count MPV Immature Gran % (Auto) Neut % (Auto) Lymph % (Auto) [place] % (Auto) Eos % (Auto) Baso % (Auto) Lymph # (Auto) [place] # (Auto) Eos # (Auto) Baso # (Auto) Abs Immat Gran (auto) Absolute Neuts (auto) Absolute Nucleated RBC Nucleated RBC % (auto) Sodium Potassium Chloride Carbon Dioxide Anion Gap BUN Creatinine Estim Creat Clear Calc Estimated GFR Random Glucose Calcium Urine Color Urine Appearance Urine pH Ur Specific [place] Urine Protein Urine Glucose (UA) Urine Ketones Urine Blood Urine Nitrite Cancelled Ur Leukocyte Esterase Large (3+) H Cancelled Urine RBC 0-2 Cancelled Urine WBC 21-50 H Urine WBC Clumps Ur Squamous Epith Cells Ur Transition Epith Cell Ur Renal Epithelial Cell Calcium Oxalate Crystal Leucine Crystals Cystine Crystals Tyrosine Crystals Other Crystals Urine Bacteria Urine Parasites Bilirubin Casts Epithelial Casts Fatty Casts Hyaline Casts Granular Casts Waxy Casts Broad Casts RBC Casts WBC Casts Other Casts Urine Trichomonas Urine Yeast 01/26/23 01/26/23 01/26/23 17:15 17:15 17:15 WBC RBC Hgb Hct MCV MCH MCHC RDW Plt Count MPV Immature Gran % (Auto) Neut % (Auto) Lymph % (Auto) [place] % (Auto) Eos % (Auto) Baso % (Auto) Lymph # (Auto) [place] # (Auto) Eos # (Auto) Baso # (Auto) Abs Immat Gran (auto) Absolute Neuts (auto) Absolute Nucleated RBC Nucleated RBC % (auto) Sodium Potassium Chloride Carbon Dioxide Anion Gap BUN Creatinine Estim Creat Clear Calc Estimated GFR Random Glucose Calcium Urine Color Urine Appearance Urine pH Ur Specific [place] Urine Protein Urine Glucose (UA) Urine Ketones Urine Blood Urine Nitrite Ur Leukocyte Esterase Urine RBC Urine WBC Cancelled Urine WBC Clumps Cancelled Ur Squamous Epith Cells 6-10 Cancelled Ur Transition Epith Cell Cancelled Ur Renal Epithelial Cell Cancelled Calcium Oxalate Crystal Cancelled Leucine Crystals Cancelled Cystine Crystals Cancelled Tyrosine Crystals Cancelled Other Crystals Cancelled Urine Bacteria Trace Cancelled Urine Parasites Cancelled Bilirubin Casts Cancelled Epithelial Casts Cancelled Fatty Casts Cancelled Hyaline Casts 0-2 Granular Casts Waxy Casts Broad Casts RBC Casts WBC Casts Other Casts Urine Trichomonas Urine Yeast 01/26/23 01/27/23 17:15 08:43 WBC 7.0 RBC 4.81 Hgb 13.8 Hct 44.2 MCV 91.9 MCH 28.7 MCHC 31.2 RDW 14.1 Plt Count 293 MPV 9.7 Immature Gran % (Auto) 0.3 Neut % (Auto) 67.6 Lymph % (Auto) 22.0 [place] % (Auto) 9.3 Eos % (Auto) 0.4 Baso % (Auto) 0.4 Lymph # (Auto) 1.5 [place] # (Auto) 0.7 Eos # (Auto) 0.0 Baso # (Auto) 0.0 Abs Immat Gran (auto) 0.02 Absolute Neuts (auto) 4.7 Absolute Nucleated RBC 0.000 Nucleated RBC % (auto) 0.0 Sodium 141 Potassium 4.0 Chloride 101 Carbon Dioxide 25 Anion Gap 19 BUN 21 H Creatinine 1.13 Estim Creat Clear Calc 43.8 Estimated GFR 48 Random Glucose 140 H Calcium 9.0 Urine Color Urine Appearance Urine pH Ur Specific [place] Urine Protein Urine Glucose (UA) Urine Ketones Urine Blood Urine Nitrite Ur Leukocyte Esterase Urine RBC Urine WBC Urine WBC Clumps Ur Squamous Epith Cells Ur Transition Epith Cell Ur Renal Epithelial Cell Calcium Oxalate Crystal Leucine Crystals Cystine Crystals Tyrosine Crystals Other Crystals Urine Bacteria Urine Parasites Bilirubin Casts Epithelial Casts Fatty Casts Hyaline Casts Cancelled Granular Casts Cancelled Waxy Casts Cancelled Broad Casts Cancelled RBC Casts Cancelled WBC Casts Cancelled Other Casts Cancelled Urine Trichomonas Cancelled Urine Yeast Cancelled Medications Medications Current Medications Acetaminophen (Acetaminophen 325 Mg Tablet) 650 mg PO Q6H PRN PRN Reason: Headache/Pain Mild Scale (1-3) Al Hydroxide/Mg Hydroxide (Magnesium Hydrox/Alum Hydrox 30 Ml Oral.Susp) 30 ml PO Q6H PRN PRN Reason: Heartburn/Nausea Bupropion HCl (Bupropion Hcl Xl 300 Mg Tab.Er.24h) 300 mg PO DAILY [facility] Last Admin: 01/28/23 08:44 Dose: 300 mg Cariprazine (Cariprazine Hcl 1.5 Mg Capsule) 4.5 mg PO DAILY [facility] Last Admin: 01/28/23 08:44 Dose: 4.5 mg Divalproex Sodium (Divalproex Sodium Er 250 Mg Tab.Er.24h) 250 mg PO BEDTIME [facility] Last Admin: 01/27/23 20:48 Dose: 250 mg Divalproex Sodium (Divalproex Sodium Er 500 Mg Tab.Er.24h) 1,500 mg PO BEDTIME [facility] Last Admin: 01/27/23 20:48 Dose: 1,500 mg Hydroxyzine HCl (Hydroxyzine Hcl 25 Mg Tablet) 25 mg PO Q6H PRN PRN Reason: Anxiety Lactic Acid (Ammonium Lactate 12 % Lotion 226 Gm Bottle) 1 appl TOPICAL BID [facility]; Protocol Last Admin: 01/28/23 08:44 Dose: Not Given Magnesium Hydroxide (Milk Of Magnesia 30 Ml Oral.Susp) 30 ml PO DAILY PRN PRN Reason: Constipation Melatonin (Melatonin 3 Mg Tablet) 3 mg PO BEDTIME [facility] Last Admin: 01/27/23 20:49 Dose: 3 mg Nitrofurantoin Macrocrystals (Nitrofurantoin Monohyd/M-Cryst 100 Mg Capsule) 100 mg PO BID [facility] Last Admin: 01/28/23 08:44 Dose: 100 mg Trazodone HCl (Trazodone Hcl 50 Mg Tablet) 50 mg PO BEDTIME MRX1 PRN PRN Reason: Insomnia Allergies Allergies Allergy/AdvReac Type Severity Reaction Status Date / Time No Known Allergies Allergy Verified 12/13/22 17:46 Assessment & Plan Assessment & Plan (1) Bipolar disorder, most recent episode depressed: Status: Acute Code(s): F31.30 - Bipolar disorder, current episode depressed, mild or moderate severity, unspecified (2) Neurodegenerative cognitive impairment: Status: Acute Code(s): G31.9 - Degenerative disease of nervous system, unspecified (3) Acute UTI: Status: Acute Code(s): N39.0 - Urinary tract infection, site not specified (4) Delirium: Status: Acute Code(s): R41.0 - Disorientation, unspecified Plan The patient is an elderly female with a past history of bipolar disorder, dementia and now admitted for delirium due to UTI. She was residing at [facility] and she had being more confused, hypoactive and despondent in the last 4 days prior to the admission at the emergency room. On the ED, she was diagnosed with a UTI and started on antibiotics. Plan 1. Gather collateral information. 2. Continue with regular medications. 3. Continue with antibiotics. 4. Reassessment with results 5. CBC with differential, basic metabolic panel and UA for January 27. UA came still positive but blood work within normal limits. Reason for continued inpatient stay Substantial Risk for: inability to function, rapid decompensation and med/psych decompensation Time Spent With Patient Time: Total time managing care of this patient today _20___ minutes.
[2023-01-28 18:00] VITALS: BP 123/65; PULSE 75; RESP 19; TEMP 36; O2SAT 96
[2023-01-28] MEDS: Divalproex Sodium ER 500 MG TAB.ER.24H 1500 MG PO (20:42)
[2023-01-28] MEDS: Divalproex Sodium ER 250 MG TAB.ER.24H PO (20:43)
[2023-01-28] MEDS: Melatonin 3 MG TABLET PO (20:43)
[2023-01-29 08:15] VITALS: BP 124/74; PULSE 89; RESP 18; TEMP 36.3; O2SAT 96
[2023-01-29 08:30] LABS: Valproate 110.1 mcg/mL (50.0-100.0)
--- NOTE | 2023-01-29 08:32 | PC.NURSE ---
Critical VPA level 110.[address] Valencia.
[2023-01-29] MEDS: Nitrofurantoin Monohyd/M-Cryst 100 MG CAPSULE PO ×2 (09:04→20:21)
[2023-01-29] MEDS: buPROPion HCl XL 300 MG TAB.ER.24H PO (09:04)
[2023-01-29] MEDS: Cariprazine HCl 3 MG CAPSULE 6 MG PO (11:12)
[2023-01-29 12:16] VITALS: BMI 26.9
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
[2023-01-29 18:00] VITALS: BP 131/72; PULSE 75; RESP 16; TEMP 35.7; O2SAT 97
--- NOTE | 2023-01-29 18:44 | PC.NURSE ---
Per Dr. Erik kumar for Marjorie to have 2100 dose of Depakote 1500mg (VPA level 110.0 today).
[2023-01-29] MEDS: Divalproex Sodium ER 500 MG TAB.ER.24H 1500 MG PO (20:20)
[2023-01-29] MEDS: Melatonin 3 MG TABLET PO (20:21)
[2023-01-30 08:04] VITALS: BP 121/76; PULSE 92; RESP 18; TEMP 36.4; O2SAT 98
[2023-01-30] MEDS: buPROPion HCl XL 300 MG TAB.ER.24H PO (08:09)
[2023-01-30] MEDS: Cariprazine HCl 3 MG CAPSULE 6 MG PO (08:09)
[2023-01-30] MEDS: Nitrofurantoin Monohyd/M-Cryst 100 MG CAPSULE PO ×2 (08:10→20:26)
--- NOTE | 2023-01-30 13:33 | HO.PSYCHPN ---
Subjective Subjective Date of Service: 01/30/23 Reason For Visit: mental health emergency Interim History: The nursing staff reported the patient has been pleasant, with flat affect, superficially engageable. She was seen in the common areas. The school social worker reported that she contact his knees and apparently there had been an apartment around. On interview I explained to the patient that we are lowering the lid her Depakote and we will have a new Depakote level next week. Starting on Aricept 5 mg p.o. q.h.s. to target dementia. Mental Status Exam Mental Status Exam Patient Appearance: Appropriate Patient Orientation: Person and Situation Level of Consciousness: Awake and Appropriate Patient Behavior: Guarded and Passive Mood Description: Withdrawn Affect Description: Constricted Patient Cognition Impaired: Yes Ability to Follow Directions: Good Speech Pattern: Clear Hallucinations: None Delusions: Not Present Thought Process: Distracted Thought Content: positive for [place] and positive for Poverty of Content Judgement: Fair Diagnostics Vital Signs (24Hr): Vital Signs - 24 hr 01/29/23 18:00 01/30/23 08:04 Temperature 96.2 F L 97.5 F Pulse Rate 75 92 Respiratory Rate 16 18 Blood Pressure 131/72 121/76 Pulse Oximetry 97 98 Oxygen Delivery Method Room Air Room Air BMI result Body Mass Index 26.9 Labs 01/27/23 08:43 01/27/23 08:43 Labs: Laboratory Results - last 48 hr 01/29/23 08:01 Valproic Acid 110.1 H* Medications Medications Current Medications Acetaminophen (Acetaminophen 325 Mg Tablet) 650 mg PO Q6H PRN PRN Reason: Headache/Pain Mild Scale (1-3) Al Hydroxide/Mg Hydroxide (Magnesium Hydrox/Alum Hydrox 30 Ml Oral.Susp) 30 ml PO Q6H PRN PRN Reason: Heartburn/Nausea Bupropion HCl (Bupropion Hcl Xl 300 Mg Tab.Er.24h) 300 mg PO DAILY [facility] Last Admin: 01/30/23 08:09 Dose: 300 mg Cariprazine (Cariprazine Hcl 3 Mg Capsule) 6 mg PO DAILY [facility] Last Admin: 01/30/23 08:09 Dose: 6 mg Divalproex Sodium (Divalproex Sodium Er 500 Mg Tab.Er.24h) 1,500 mg PO BEDTIME [facility] Last Admin: 01/29/23 20:20 Dose: 1,500 mg Donepezil HCl (Donepezil Hcl 5 Mg Tablet) 5 mg PO BEDTIME [facility] Hydroxyzine HCl (Hydroxyzine Hcl 25 Mg Tablet) 25 mg PO Q6H PRN PRN Reason: Anxiety Lactic Acid (Ammonium Lactate 12 % Lotion 226 Gm Bottle) 1 appl TOPICAL BID [facility]; Protocol Last Admin: 01/30/23 08:10 Dose: Not Given Magnesium Hydroxide (Milk Of Magnesia 30 Ml Oral.Susp) 30 ml PO DAILY PRN PRN Reason: Constipation Melatonin (Melatonin 3 Mg Tablet) 3 mg PO BEDTIME [facility] Last Admin: 01/29/23 20:21 Dose: 3 mg Nitrofurantoin Macrocrystals (Nitrofurantoin Monohyd/M-Cryst 100 Mg Capsule) 100 mg PO BID [facility] Last Admin: 01/30/23 08:10 Dose: 100 mg Trazodone HCl (Trazodone Hcl 50 Mg Tablet) 50 mg PO BEDTIME MRX1 PRN PRN Reason: Insomnia Allergies Allergies Allergy/AdvReac Type Severity Reaction Status Date / Time No Known Allergies Allergy Verified 12/13/22 17:46 Assessment & Plan Assessment & Plan (1) Bipolar disorder, most recent episode depressed: Status: Acute Code(s): F31.30 - Bipolar disorder, current episode depressed, mild or moderate severity, unspecified (2) Neurodegenerative cognitive impairment: Status: Acute Code(s): G31.9 - Degenerative disease of nervous system, unspecified (3) Acute UTI: Status: Acute Code(s): N39.0 - Urinary tract infection, site not specified (4) Delirium: Status: Acute Code(s): R41.0 - Disorientation, unspecified Plan The patient is an elderly female with a past history of bipolar disorder, dementia and now admitted for delirium due to UTI. She was residing at [facility] and she had being more confused, hypoactive and despondent in the last 4 days prior to the admission at the emergency room. On the ED, she was diagnosed with a UTI and started on antibiotics. Plan 1. Gather collateral information. 2. Continue with regular medications. 3. Continue with antibiotics. 4. Reassessment with results 5. CBC with differential, basic metabolic panel and UA for January 27. UA came still positive but blood work within normal limits. 6. On January 29 we are lowering Depakote 1500 mg a day and increase Vraylar up to 6 mg daily to target psychosis 7. On January 30 we started Aricept 5 mg p.o. q.h.s. Reason for continued inpatient stay Substantial Risk for: inability to function, rapid decompensation and med/psych decompensation Time Spent With Patient Time: Total time managing care of this patient today ___20_ minutes.
[2023-01-30 18:00] VITALS: BP 129/84; PULSE 81; RESP 18; TEMP 36.3; O2SAT 96
[2023-01-30] MEDS: Divalproex Sodium ER 500 MG TAB.ER.24H 1500 MG PO (20:25)
[2023-01-30] MEDS: Donepezil HCl 5 MG TABLET PO (20:26)
[2023-01-30] MEDS: Melatonin 3 MG TABLET PO (20:26)
[2023-01-31 08:07] VITALS: BP 138/68; PULSE 88; RESP 17; TEMP 36.2; O2SAT 95
[2023-01-31] MEDS: buPROPion HCl XL 300 MG TAB.ER.24H PO (08:47)
[2023-01-31] MEDS: Nitrofurantoin Monohyd/M-Cryst 100 MG CAPSULE PO ×2 (08:47→20:30)
[2023-01-31] MEDS: Cariprazine HCl 3 MG CAPSULE 6 MG PO (08:47)
--- NOTE | 2023-01-31 12:20 | HO.PSYCHPN ---
Subjective Subjective Date of Service: 01/31/23 Reason For Visit: mental health emergency Interim History: calm, cooperative. no complaints or requests. per staff, slept well, taking meds, no behavioral concerns. Mental Status Exam Mental Status Exam Patient Appearance: Appropriate Patient Orientation: Person and Situation Level of Consciousness: Awake and Appropriate Patient Behavior: Guarded and Passive Mood Description: Withdrawn Affect Description: Constricted Patient Cognition Impaired: Yes Ability to Follow Directions: Good Speech Pattern: Clear Hallucinations: None Delusions: Not Present Thought Process: Distracted Thought Content: positive for [place] and positive for Poverty of Content Judgement: Fair Diagnostics Vital Signs (24Hr): Vital Signs - 24 hr 01/30/23 18:00 01/31/23 08:07 Temperature 97.3 F 97.2 F Pulse Rate 81 88 Respiratory Rate 18 17 Blood Pressure 129/84 138/68 Pulse Oximetry 96 95 Oxygen Delivery Method Room Air Room Air BMI result Body Mass Index 26.9 Labs 01/27/23 08:43 01/27/23 08:43 Medications Medications Current Medications Acetaminophen (Acetaminophen 325 Mg Tablet) 650 mg PO Q6H PRN PRN Reason: Headache/Pain Mild Scale (1-3) Al Hydroxide/Mg Hydroxide (Magnesium Hydrox/Alum Hydrox 30 Ml Oral.Susp) 30 ml PO Q6H PRN PRN Reason: Heartburn/Nausea Bupropion HCl (Bupropion Hcl Xl 300 Mg Tab.Er.24h) 300 mg PO DAILY [facility] Last Admin: 01/31/23 08:47 Dose: 300 mg Cariprazine (Cariprazine Hcl 3 Mg Capsule) 6 mg PO DAILY [facility] Last Admin: 01/31/23 08:47 Dose: 6 mg Divalproex Sodium (Divalproex Sodium Er 500 Mg Tab.Er.24h) 1,500 mg PO BEDTIME [facility] Last Admin: 01/30/23 20:25 Dose: 1,500 mg Donepezil HCl (Donepezil Hcl 5 Mg Tablet) 5 mg PO BEDTIME [facility] Last Admin: 01/30/23 20:26 Dose: 5 mg Hydroxyzine HCl (Hydroxyzine Hcl 25 Mg Tablet) 25 mg PO Q6H PRN PRN Reason: Anxiety Lactic Acid (Ammonium Lactate 12 % Lotion 226 Gm Bottle) 1 appl TOPICAL BID [facility]; Protocol Last Admin: 01/31/23 10:05 Dose: Not Given Magnesium Hydroxide (Milk Of Magnesia 30 Ml Oral.Susp) 30 ml PO DAILY PRN PRN Reason: Constipation Melatonin (Melatonin 3 Mg Tablet) 3 mg PO BEDTIME [facility] Last Admin: 01/30/23 20:26 Dose: 3 mg Nitrofurantoin Macrocrystals (Nitrofurantoin Monohyd/M-Cryst 100 Mg Capsule) 100 mg PO BID [facility] Last Admin: 01/31/23 08:47 Dose: 100 mg Trazodone HCl (Trazodone Hcl 50 Mg Tablet) 50 mg PO BEDTIME MRX1 PRN PRN Reason: Insomnia Allergies Allergies Allergy/AdvReac Type Severity Reaction Status Date / Time No Known Allergies Allergy Verified 12/13/22 17:46 Assessment & Plan Assessment & Plan (1) Bipolar disorder, most recent episode depressed: Status: Acute Code(s): F31.30 - Bipolar disorder, current episode depressed, mild or moderate severity, unspecified (2) Neurodegenerative cognitive impairment: Status: Acute Code(s): G31.9 - Degenerative disease of nervous system, unspecified (3) Acute UTI: Status: Acute Code(s): N39.0 - Urinary tract infection, site not specified (4) Delirium: Status: Acute Code(s): R41.0 - Disorientation, unspecified Plan The patient is an elderly female with a past history of bipolar disorder, dementia and now admitted for delirium due to UTI. She was residing at [facility] and she had being more confused, hypoactive and despondent in the last 4 days prior to the admission at the emergency room. On the ED, she was diagnosed with a UTI and started on antibiotics. Plan 1. Gather collateral information. 2. Continue with regular medications. 3. Continue with antibiotics. 4. Reassessment with results 5. CBC with differential, basic metabolic panel and UA for January 27. UA came still positive but blood work within normal limits. 6. On January 29 we are lowering Depakote 1500 mg a day and increase Vraylar up to 6 mg daily to target psychosis 7. On January 30 we started Aricept 5 mg p.o. q.h.s. 01/31: depressed. continue current mgmt. Reason for continued inpatient stay Substantial Risk for: inability to function and rapid decompensation Time Spent With Patient Time: Total time managing care of this patient today ____ minutes.
[2023-01-31 18:00] VITALS: BP 143/83; PULSE 78; RESP 18; TEMP 36.4; O2SAT 99
[2023-01-31] MEDS: Melatonin 3 MG TABLET PO (20:30)
[2023-01-31] MEDS: Donepezil HCl 5 MG TABLET PO (20:30)
[2023-01-31] MEDS: Divalproex Sodium ER 500 MG TAB.ER.24H 1500 MG PO (20:30)
[2023-02-01 06:05] VITALS: BP 139/85; PULSE 83; RESP 18; TEMP 36.6; O2SAT 97
[2023-02-01] MEDS: Cariprazine HCl 3 MG CAPSULE 6 MG PO (08:29)
[2023-02-01] MEDS: buPROPion HCl XL 300 MG TAB.ER.24H PO (08:29)
--- NOTE | 2023-02-01 11:42 | HO.PSYCHPN ---
Subjective Subjective Date of Service: 02/01/23 Reason For Visit: mental health emergency Interim History: calm, cooperative. no questions or complaints. appears a bit down. per staff, no change in presentation. eating, sleeping, taking meds. Mental Status Exam Mental Status Exam Patient Appearance: Appropriate Patient Orientation: Person and Situation Level of Consciousness: Awake and Appropriate Patient Behavior: Guarded and Passive Mood Description: Withdrawn Affect Description: Constricted Patient Cognition Impaired: Yes Ability to Follow Directions: Good Speech Pattern: Clear Hallucinations: None Delusions: Not Present Thought Process: Distracted Thought Content: positive for [place] and positive for Poverty of Content Judgement: Fair Diagnostics Vital Signs (24Hr): Vital Signs - 24 hr 01/31/23 18:00 02/01/23 06:05 Temperature 97.5 F 97.9 F Pulse Rate 78 83 Respiratory Rate 18 18 Blood Pressure 143/83 H 139/85 Pulse Oximetry 99 97 Oxygen Delivery Method Room Air Room Air BMI result Body Mass Index 26.9 Labs 01/27/23 08:43 01/27/23 08:43 Medications Medications Current Medications Acetaminophen (Acetaminophen 325 Mg Tablet) 650 mg PO Q6H PRN PRN Reason: Headache/Pain Mild Scale (1-3) Al Hydroxide/Mg Hydroxide (Magnesium Hydrox/Alum Hydrox 30 Ml Oral.Susp) 30 ml PO Q6H PRN PRN Reason: Heartburn/Nausea Bupropion HCl (Bupropion Hcl Xl 300 Mg Tab.Er.24h) 300 mg PO DAILY [facility] Last Admin: 02/01/23 08:29 Dose: 300 mg Cariprazine (Cariprazine Hcl 3 Mg Capsule) 6 mg PO DAILY [facility] Last Admin: 02/01/23 08:29 Dose: 6 mg Divalproex Sodium (Divalproex Sodium Er 500 Mg Tab.Er.24h) 1,500 mg PO BEDTIME [facility] Last Admin: 01/31/23 20:30 Dose: 1,500 mg Donepezil HCl (Donepezil Hcl 5 Mg Tablet) 5 mg PO BEDTIME [facility] Last Admin: 01/31/23 20:30 Dose: 5 mg Hydroxyzine HCl (Hydroxyzine Hcl 25 Mg Tablet) 25 mg PO Q6H PRN PRN Reason: Anxiety Lactic Acid (Ammonium Lactate 12 % Lotion 226 Gm Bottle) 1 appl TOPICAL BID [facility]; Protocol Last Admin: 02/01/23 08:35 Dose: Not Given Magnesium Hydroxide (Milk Of Magnesia 30 Ml Oral.Susp) 30 ml PO DAILY PRN PRN Reason: Constipation Melatonin (Melatonin 3 Mg Tablet) 3 mg PO BEDTIME [facility] Last Admin: 01/31/23 20:30 Dose: 3 mg Trazodone HCl (Trazodone Hcl 50 Mg Tablet) 50 mg PO BEDTIME MRX1 PRN PRN Reason: Insomnia Allergies Allergies Allergy/AdvReac Type Severity Reaction Status Date / Time No Known Allergies Allergy Verified 12/13/22 17:46 Assessment & Plan Assessment & Plan (1) Bipolar disorder, most recent episode depressed: Status: Acute Code(s): F31.30 - Bipolar disorder, current episode depressed, mild or moderate severity, unspecified (2) Neurodegenerative cognitive impairment: Status: Acute Code(s): G31.9 - Degenerative disease of nervous system, unspecified (3) Acute UTI: Status: Acute Code(s): N39.0 - Urinary tract infection, site not specified (4) Delirium: Status: Acute Code(s): R41.0 - Disorientation, unspecified Plan The patient is an elderly female with a past history of bipolar disorder, dementia and now admitted for delirium due to UTI. She was residing at [facility] and she had being more confused, hypoactive and despondent in the last 4 days prior to the admission at the emergency room. On the ED, she was diagnosed with a UTI and started on antibiotics. Plan 1. Gather collateral information. 2. Continue with regular medications. 3. Continue with antibiotics. 4. Reassessment with results 5. CBC with differential, basic metabolic panel and UA for January 27. UA came still positive but blood work within normal limits. 6. On January 29 we are lowering Depakote 1500 mg a day and increase Vraylar up to 6 mg daily to target psychosis 7. On January 30 we started Aricept 5 mg p.o. q.h.s. 01/31: depressed. continue current mgmt. 02/01: depressed. continue current mgmt. Reason for continued inpatient stay Substantial Risk for: inability to function and rapid decompensation Time Spent With Patient Time: Total time managing care of this patient today ____ minutes.
[2023-02-01 18:00] VITALS: BP 121/71; PULSE 80; RESP 18; TEMP 36.3; O2SAT 95
[2023-02-01] MEDS: Divalproex Sodium ER 500 MG TAB.ER.24H 1500 MG PO (20:27)
[2023-02-01] MEDS: Melatonin 3 MG TABLET PO (20:28)
[2023-02-01] MEDS: Donepezil HCl 5 MG TABLET PO (20:28)
[2023-02-02 07:50] VITALS: BP 123/62; PULSE 71; RESP 16; TEMP 36.6; O2SAT 98
[2023-02-02] MEDS: buPROPion HCl XL 300 MG TAB.ER.24H PO (08:25)
[2023-02-02] MEDS: Cariprazine HCl 3 MG CAPSULE 6 MG PO (08:25)
[2023-02-02 08:41] LABS: Valproate 94.6 mcg/mL (50.0-100.0)
--- NOTE | 2023-02-02 17:06 | HO.PSYCHPN ---
Subjective Subjective Date of Service: 02/02/23 Reason For Visit: mental health emergency Subjective Notes: Conditional Voluntary Interim History: The nursing staff reported the patient has been quiet, pleasant confused at times fully compliant with medications and meals. She slept most of the night. The social services assistant reported that [facility] had been working on apartment for her. On interview the patient denies new symptoms, her Depakote level was 94.6. We will repeat a UA tomorrow. Mental Status Exam Mental Status Exam Patient Appearance: Well Grooomed Patient Orientation: Person and Situation Level of Consciousness: Awake and Appropriate Patient Behavior: Guarded and Passive Mood Description: Withdrawn Affect Description: Constricted Patient Cognition Impaired: Yes Ability to Follow Directions: Good Speech Pattern: Clear Hallucinations: None Delusions: Not Present Thought Process: Distracted and Slowed Thinking Thought Content: positive for [place] and positive for Poverty of Content Judgement: Fair Diagnostics Vital Signs (24Hr): Vital Signs - 24 hr 02/01/23 18:00 02/02/23 07:50 Temperature 97.4 F 97.9 F Pulse Rate 80 71 Respiratory Rate 18 16 Blood Pressure 121/71 123/62 Pulse Oximetry 95 98 Oxygen Delivery Method Room Air Room Air BMI result Body Mass Index 26.9 Labs 01/27/23 08:43 01/27/23 08:43 Labs: Laboratory Results - last 48 hr 02/02/23 07:56 Valproic Acid 94.6 Medications Medications Current Medications Acetaminophen (Acetaminophen 325 Mg Tablet) 650 mg PO Q6H PRN PRN Reason: Headache/Pain Mild Scale (1-3) Al Hydroxide/Mg Hydroxide (Magnesium Hydrox/Alum Hydrox 30 Ml Oral.Susp) 30 ml PO Q6H PRN PRN Reason: Heartburn/Nausea Bupropion HCl (Bupropion Hcl Xl 300 Mg Tab.Er.24h) 300 mg PO DAILY [facility] Last Admin: 02/02/23 08:25 Dose: 300 mg Cariprazine (Cariprazine Hcl 3 Mg Capsule) 6 mg PO DAILY [facility] Last Admin: 02/02/23 08:25 Dose: 6 mg Divalproex Sodium (Divalproex Sodium Er 500 Mg Tab.Er.24h) 1,500 mg PO BEDTIME [facility] Last Admin: 02/01/23 20:27 Dose: 1,500 mg Donepezil HCl (Donepezil Hcl 10 Mg Tablet) 10 mg PO BEDTIME [facility] Hydroxyzine HCl (Hydroxyzine Hcl 25 Mg Tablet) 25 mg PO Q6H PRN PRN Reason: Anxiety Lactic Acid (Ammonium Lactate 12 % Lotion 226 Gm Bottle) 1 appl TOPICAL BID [facility]; Protocol Last Admin: 02/02/23 08:25 Dose: Not Given Magnesium Hydroxide (Milk Of Magnesia 30 Ml Oral.Susp) 30 ml PO DAILY PRN PRN Reason: Constipation Melatonin (Melatonin 3 Mg Tablet) 3 mg PO BEDTIME [facility] Last Admin: 02/01/23 20:28 Dose: 3 mg Trazodone HCl (Trazodone Hcl 50 Mg Tablet) 50 mg PO BEDTIME MRX1 PRN PRN Reason: Insomnia Allergies Allergies Allergy/AdvReac Type Severity Reaction Status Date / Time No Known Allergies Allergy Verified 12/13/22 17:46 Assessment & Plan Assessment & Plan (1) Bipolar disorder, most recent episode depressed: Status: Acute Code(s): F31.30 - Bipolar disorder, current episode depressed, mild or moderate severity, unspecified (2) Neurodegenerative cognitive impairment: Status: Acute Code(s): G31.9 - Degenerative disease of nervous system, unspecified (3) Acute UTI: Status: Acute Code(s): N39.0 - Urinary tract infection, site not specified (4) Delirium: Status: Acute Code(s): R41.0 - Disorientation, unspecified Plan The patient is an elderly female with a past history of bipolar disorder, dementia and now admitted for delirium due to UTI. She was residing at [facility] and she had being more confused, hypoactive and despondent in the last 4 days prior to the admission at the emergency room. On the ED, she was diagnosed with a UTI and started on antibiotics. Plan 1. Gather collateral information. 2. Continue with regular medications. 3. Continue with antibiotics. 4. Reassessment with results 5. CBC with differential, basic metabolic panel and UA for January 27. UA came still positive but blood work within normal limits. 6. On January 29 we are lowering Depakote 1500 mg a day and increase Vraylar up to 6 mg daily to target psychosis 7. On January 30 we started Aricept 5 mg p.o. q.h.s. Reason for continued inpatient stay Substantial Risk for: inability to function, rapid decompensation and med/psych decompensation Time Spent With Patient Time: Total time managing care of this patient today ____ minutes.
[2023-02-02] MEDS: Divalproex Sodium ER 500 MG TAB.ER.24H 1500 MG PO (21:24)
[2023-02-02] MEDS: Melatonin 3 MG TABLET PO (21:25)
[2023-02-02] MEDS: Donepezil HCl 10 MG TABLET PO (21:25)
[2023-02-03 08:00] VITALS: BP 126/78; PULSE 81; RESP 18; TEMP 36.7; O2SAT 97
[2023-02-03] MEDS: Cariprazine HCl 3 MG CAPSULE 6 MG PO (08:06)
[2023-02-03] MEDS: buPROPion HCl XL 300 MG TAB.ER.24H PO (08:07)
--- NOTE | 2023-02-03 09:49 | PC.NURSE ---
Refused Flu vaccine.
[2023-02-03 10:14] LABS: Appearance Urine Clear; Color Urine Yellow; Glucose Urine UA Negative (Negative); Leukocyte Esterase Urine Large (3+) (Negative); Nitrite Urine Negative (Negative); PH 5.5 (5.0-9.0); UMIC TRIGGER UACC YES; Urine Blood Trace (Negative); Urine Ketones Trace mg/dL (Negative); Urine Protein Negative (Neg-Trace)
[2023-02-03 10:17] LABS: Bacteria Urine 1+ (None Seen); Hyaline Casts Urine 0-2 /LPF (0-2); RBC Urine 0-2 /HPF (0-2); UACC Culture Trigger YES; WBC Urine >50 /HPF (0-5)
--- NOTE | 2023-02-03 13:27 | P.PNPSI_ITS ---
Subjective Subjective Date of Service: 02/03/23 Reason For Visit: mental health emergency Subjective Notes: Conditional Voluntary Interim History: The nursing staff reported the patient slept well last night her affect is flat. She stated that she is worried about weight gain with Depakote. I explained her that her does now his lower and the risk of over waiting slow. The hospice social worker reported that we will meet at 16:00 with the team for discharge planning. On interview the patient denies new symptoms, waiting for placement Mental Status Exam Mental Status Exam Patient Appearance: Well Grooomed and Appropriate Patient Orientation: Person and Situation Level of Consciousness: Awake and Appropriate Patient Behavior: Cooperative and Passive Mood Description: Withdrawn Affect Description: Constricted Patient Cognition Impaired: Yes Ability to Follow Directions: Good Speech Pattern: Clear Hallucinations: None Delusions: Not Present Thought Process: Distracted and Slowed Thinking Thought Content: positive for [place] and positive for Circumstantial Judgement: Fair Diagnostics Vital Signs (24Hr): Vital Signs - 24 hr 02/03/23 08:00 Temperature 98.1 F Pulse Rate 81 Respiratory Rate 18 Blood Pressure 126/78 Pulse Oximetry 97 Oxygen Delivery Method Room Air BMI result Body Mass Index 26.9 Labs 01/27/23 08:43 01/27/23 08:43 Labs: Laboratory Results - last 48 hr 02/02/23 02/03/23 02/03/23 07:56 09:30 09:30 Urine Color Yellow Cancelled Urine Appearance Clear Urine pH Ur Specific [place] Urine Protein Urine Glucose (UA) Urine Ketones Urine Blood Urine Nitrite Ur Leukocyte Esterase Urine RBC Urine WBC Urine WBC Clumps Ur Squamous Epith Cells Ur Transition Epith Cell Ur Renal Epithelial Cell Calcium Oxalate Crystal Leucine Crystals Cystine Crystals Tyrosine Crystals Other Crystals Urine Bacteria Urine Parasites Bilirubin Casts Epithelial Casts Fatty Casts Hyaline Casts Granular Casts Waxy Casts Broad Casts RBC Casts WBC Casts Other Casts Urine Trichomonas Urine Yeast Valproic Acid 94.6 02/03/23 02/03/23 02/03/23 09:30 09:30 09:30 Urine Color Urine Appearance Cancelled Urine pH 5.5 Cancelled Ur Specific [place] 1.020 Cancelled Urine Protein Negative Urine Glucose (UA) Urine Ketones Urine Blood Urine Nitrite Ur Leukocyte Esterase Urine RBC Urine WBC Urine WBC Clumps Ur Squamous Epith Cells Ur Transition Epith Cell Ur Renal Epithelial Cell Calcium Oxalate Crystal Leucine Crystals Cystine Crystals Tyrosine Crystals Other Crystals Urine Bacteria Urine Parasites Bilirubin Casts Epithelial Casts Fatty Casts Hyaline Casts Granular Casts Waxy Casts Broad Casts RBC Casts WBC Casts Other Casts Urine Trichomonas Urine Yeast Valproic Acid 02/03/23 02/03/23 02/03/23 09:30 09:30 09:30 Urine Color Urine Appearance Urine pH Ur Specific [place] Urine Protein Cancelled Urine Glucose (UA) Negative Cancelled Urine Ketones Trace Cancelled Urine Blood Trace H Urine Nitrite Ur Leukocyte Esterase Urine RBC Urine WBC Urine WBC Clumps Ur Squamous Epith Cells Ur Transition Epith Cell Ur Renal Epithelial Cell Calcium Oxalate Crystal Leucine Crystals Cystine Crystals Tyrosine Crystals Other Crystals Urine Bacteria Urine Parasites Bilirubin Casts Epithelial Casts Fatty Casts Hyaline Casts Granular Casts Waxy Casts Broad Casts RBC Casts WBC Casts Other Casts Urine Trichomonas Urine Yeast Valproic Acid 02/03/23 02/03/23 02/03/23 09:30 09:30 09:30 Urine Color Urine Appearance Urine pH Ur Specific [place] Urine Protein Urine Glucose (UA) Urine Ketones Urine Blood Cancelled Urine Nitrite Negative Cancelled Ur Leukocyte Esterase Large (3+) H Cancelled Urine RBC 0-2 Urine WBC Urine WBC Clumps Ur Squamous Epith Cells Ur Transition Epith Cell Ur Renal Epithelial Cell Calcium Oxalate Crystal Leucine Crystals Cystine Crystals Tyrosine Crystals Other Crystals Urine Bacteria Urine Parasites Bilirubin Casts Epithelial Casts Fatty Casts Hyaline Casts Granular Casts Waxy Casts Broad Casts RBC Casts WBC Casts Other Casts Urine Trichomonas Urine Yeast Valproic Acid 02/03/23 02/03/23 02/03/23 09:30 09:30 09:30 Urine Color Urine Appearance Urine pH Ur Specific [place] Urine Protein Urine Glucose (UA) Urine Ketones Urine Blood Urine Nitrite Ur Leukocyte Esterase Urine RBC Cancelled Urine WBC >50 H Cancelled Urine WBC Clumps Cancelled Ur Squamous Epith Cells 11-20 Cancelled Ur Transition Epith Cell Cancelled Ur Renal Epithelial Cell Cancelled Calcium Oxalate Crystal Cancelled Leucine Crystals Cancelled Cystine Crystals Cancelled Tyrosine Crystals Cancelled Other Crystals Cancelled Urine Bacteria 1+ Urine Parasites Bilirubin Casts Epithelial Casts Fatty Casts Hyaline Casts Granular Casts Waxy Casts Broad Casts RBC Casts WBC Casts Other Casts Urine Trichomonas Urine Yeast Valproic Acid 02/03/23 02/03/23 09:30 09:30 Urine Color Urine Appearance Urine pH Ur Specific [place] Urine Protein Urine Glucose (UA) Urine Ketones Urine Blood Urine Nitrite Ur Leukocyte Esterase Urine RBC Urine WBC Urine WBC Clumps Ur Squamous Epith Cells Ur Transition Epith Cell Ur Renal Epithelial Cell Calcium Oxalate Crystal Leucine Crystals Cystine Crystals Tyrosine Crystals Other Crystals Urine Bacteria Cancelled Urine Parasites Cancelled Bilirubin Casts Cancelled Epithelial Casts Cancelled Fatty Casts Cancelled Hyaline Casts 0-2 Cancelled Granular Casts Cancelled Waxy Casts Cancelled Broad Casts Cancelled RBC Casts Cancelled WBC Casts Cancelled Other Casts Cancelled Urine Trichomonas Cancelled Urine Yeast Cancelled Valproic Acid Medications Medications Current Medications Acetaminophen (Acetaminophen 325 Mg Tablet) 650 mg PO Q6H PRN PRN Reason: Headache/Pain Mild Scale (1-3) Al Hydroxide/Mg Hydroxide (Magnesium Hydrox/Alum Hydrox 30 Ml Oral.Susp) 30 ml PO Q6H PRN PRN Reason: Heartburn/Nausea Bupropion HCl (Bupropion Hcl Xl 300 Mg Tab.Er.24h) 300 mg PO DAILY [facility] Last Admin: 02/03/23 08:07 Dose: 300 mg Cariprazine (Cariprazine Hcl 3 Mg Capsule) 6 mg PO DAILY [facility] Last Admin: 02/03/23 08:06 Dose: 6 mg Divalproex Sodium (Divalproex Sodium Er 500 Mg Tab.Er.24h) 1,500 mg PO BEDTIME [facility] Last Admin: 02/02/23 21:24 Dose: 1,500 mg Donepezil HCl (Donepezil Hcl 10 Mg Tablet) 10 mg PO BEDTIME [facility] Last Admin: 02/02/23 21:25 Dose: 10 mg Hydroxyzine HCl (Hydroxyzine Hcl 25 Mg Tablet) 25 mg PO Q6H PRN PRN Reason: Anxiety Lactic Acid (Ammonium Lactate 12 % Lotion 226 Gm Bottle) 1 appl TOPICAL BID [facility]; Protocol Last Admin: 02/03/23 08:07 Dose: Not Given Magnesium Hydroxide (Milk Of Magnesia 30 Ml Oral.Susp) 30 ml PO DAILY PRN PRN Reason: Constipation Melatonin (Melatonin 3 Mg Tablet) 3 mg PO BEDTIME [facility] Last Admin: 02/02/23 21:25 Dose: 3 mg Trazodone HCl (Trazodone Hcl 50 Mg Tablet) 50 mg PO BEDTIME MRX1 PRN PRN Reason: Insomnia Allergies Allergies Allergy/AdvReac Type Severity Reaction Status Date / Time No Known Allergies Allergy Verified 12/13/22 17:46 Assessment & Plan Assessment & Plan (1) Bipolar disorder, most recent episode depressed: Status: Acute Code(s): F31.30 - Bipolar disorder, current episode depressed, mild or moderate severity, unspecified (2) Neurodegenerative cognitive impairment: Status: Acute Code(s): G31.9 - Degenerative disease of nervous system, unspecified (3) Acute UTI: Status: Acute Code(s): N39.0 - Urinary tract infection, site not specified (4) Delirium: Status: Acute Code(s): R41.0 - Disorientation, unspecified Plan The patient is an elderly female with a past history of bipolar disorder, dementia and now admitted for delirium due to UTI. She was residing at [facility] and she had being more confused, hypoactive and despondent in the last 4 days prior to the admission at the emergency room. On the ED, she was diagnosed with a UTI and started on antibiotics. Plan 1. Gather collateral information. 2. Continue with regular medications. 3. Continue with antibiotics. 4. Reassessment with results 5. CBC with differential, basic metabolic panel and UA for January 27. UA came still positive but blood work within normal limits. 6. On January 29 we are lowering Depakote 1500 mg a day and increase Vraylar up to 6 mg daily to target psychosis 7. On January 30 we started Aricept 5 mg p.o. q.h.s. Reason for continued inpatient stay Substantial Risk for: inability to function, rapid decompensation and med/psych decompensation Time Spent With Patient Time: Total time managing care of this patient today _20___ minutes.
[2023-02-03 18:00] VITALS: BP 120/73; PULSE 75; RESP 17; TEMP 36.6; O2SAT 96
[2023-02-03] MEDS: Divalproex Sodium ER 500 MG TAB.ER.24H 1500 MG PO (20:28)
[2023-02-03] MEDS: Melatonin 3 MG TABLET PO (20:28)
[2023-02-03] MEDS: Donepezil HCl 10 MG TABLET PO (20:28)
[2023-02-04] MEDS: Cariprazine HCl 3 MG CAPSULE 6 MG PO (09:09)
[2023-02-04] MEDS: buPROPion HCl XL 300 MG TAB.ER.24H PO (09:09)
[2023-02-04 09:11] VITALS: BP 122/69; PULSE 80; RESP 16; TEMP 36.4; O2SAT 95
--- NOTE | 2023-02-04 15:31 | HO.PSYCHPN ---
Subjective Subjective Date of Service: 02/04/23 Reason For Visit: mental health emergency Subjective Notes: Conditional Voluntary Interim History: The nursing staff reported the patient had been common cooperative, compliant with her medications. Her UA came minute contaminated with no changes. The high school social studies teacher reported that basically she is homeless, at respite [facility] and she has to talk with the knees. On interview the patient denies new symptoms, waiting for placement. Mental Status Exam Mental Status Exam Patient Appearance: Well Grooomed Patient Orientation: Person and Situation Level of Consciousness: Awake Patient Behavior: Guarded and Passive Mood Description: Withdrawn Affect Description: Constricted Patient Cognition Impaired: Yes Ability to Follow Directions: Good Speech Pattern: Clear Hallucinations: None Delusions: Not Present Thought Process: Distracted and Slowed Thinking Thought Content: positive for [place] and positive for [place] of Content Judgement: Fair Diagnostics Vital Signs (24Hr): Vital Signs - 24 hr 02/03/23 18:00 02/04/23 09:11 Temperature 97.8 F 97.5 F Pulse Rate 75 80 Respiratory Rate 17 16 Blood Pressure 120/73 122/69 Pulse Oximetry 96 95 Oxygen Delivery Method Room Air Room Air BMI result Body Mass Index 26.9 Labs 01/27/23 08:43 01/27/23 08:43 Labs: Laboratory Results - last 48 hr 02/03/23 02/03/23 02/03/23 09:30 09:30 09:30 Urine Color Yellow Cancelled Urine Appearance Clear Cancelled Urine pH 5.5 Ur Specific [place] Urine Protein Urine Glucose (UA) Urine Ketones Urine Blood Urine Nitrite Ur Leukocyte Esterase Urine RBC Urine WBC Urine WBC Clumps Ur Squamous Epith Cells Ur Transition Epith Cell Ur Renal Epithelial Cell Calcium Oxalate Crystal Leucine Crystals Cystine Crystals Tyrosine Crystals Other Crystals Urine Bacteria Urine Parasites Bilirubin Casts Epithelial Casts Fatty Casts Hyaline Casts Granular Casts Waxy Casts Broad Casts RBC Casts WBC Casts Other Casts Urine Trichomonas Urine Yeast 02/03/23 02/03/23 02/03/23 09:30 09:30 09:30 Urine Color Urine Appearance Urine pH Cancelled Ur Specific [place] 1.020 Cancelled Urine Protein Negative Cancelled Urine Glucose (UA) Negative Urine Ketones Urine Blood Urine Nitrite Ur Leukocyte Esterase Urine RBC Urine WBC Urine WBC Clumps Ur Squamous Epith Cells Ur Transition Epith Cell Ur Renal Epithelial Cell Calcium Oxalate Crystal Leucine Crystals Cystine Crystals Tyrosine Crystals Other Crystals Urine Bacteria Urine Parasites Bilirubin Casts Epithelial Casts Fatty Casts Hyaline Casts Granular Casts Waxy Casts Broad Casts RBC Casts WBC Casts Other Casts Urine Trichomonas Urine Yeast 02/03/23 02/03/23 02/03/23 09:30 09:30 09:30 Urine Color Urine Appearance Urine pH Ur Specific [place] Urine Protein Urine Glucose (UA) Cancelled Urine Ketones Trace Cancelled Urine Blood Trace H Cancelled Urine Nitrite Negative Ur Leukocyte Esterase Urine RBC Urine WBC Urine WBC Clumps Ur Squamous Epith Cells Ur Transition Epith Cell Ur Renal Epithelial Cell Calcium Oxalate Crystal Leucine Crystals Cystine Crystals Tyrosine Crystals Other Crystals Urine Bacteria Urine Parasites Bilirubin Casts Epithelial Casts Fatty Casts Hyaline Casts Granular Casts Waxy Casts Broad Casts RBC Casts WBC Casts Other Casts Urine Trichomonas Urine Yeast 02/03/23 02/03/23 02/03/23 09:30 09:30 09:30 Urine Color Urine Appearance Urine pH Ur Specific [place] Urine Protein Urine Glucose (UA) Urine Ketones Urine Blood Urine Nitrite Cancelled Ur Leukocyte Esterase Large (3+) H Cancelled Urine RBC 0-2 Cancelled Urine WBC >50 H Urine WBC Clumps Ur Squamous Epith Cells Ur Transition Epith Cell Ur Renal Epithelial Cell Calcium Oxalate Crystal Leucine Crystals Cystine Crystals Tyrosine Crystals Other Crystals Urine Bacteria Urine Parasites Bilirubin Casts Epithelial Casts Fatty Casts Hyaline Casts Granular Casts Waxy Casts Broad Casts RBC Casts WBC Casts Other Casts Urine Trichomonas Urine Yeast 02/03/23 02/03/23 02/03/23 09:30 09:30 09:30 Urine Color Urine Appearance Urine pH Ur Specific [place] Urine Protein Urine Glucose (UA) Urine Ketones Urine Blood Urine Nitrite Ur Leukocyte Esterase Urine RBC Urine WBC Cancelled Urine WBC Clumps Cancelled Ur Squamous Epith Cells 11-20 Cancelled Ur Transition Epith Cell Cancelled Ur Renal Epithelial Cell Cancelled Calcium Oxalate Crystal Cancelled Leucine Crystals Cancelled Cystine Crystals Cancelled Tyrosine Crystals Cancelled Other Crystals Cancelled Urine Bacteria 1+ Cancelled Urine Parasites Cancelled Bilirubin Casts Cancelled Epithelial Casts Cancelled Fatty Casts Cancelled Hyaline Casts 0-2 Granular Casts Waxy Casts Broad Casts RBC Casts WBC Casts Other Casts Urine Trichomonas Urine Yeast 02/03/23 09:30 Urine Color Urine Appearance Urine pH Ur Specific [place] Urine Protein Urine Glucose (UA) Urine Ketones Urine Blood Urine Nitrite Ur Leukocyte Esterase Urine RBC Urine WBC Urine WBC Clumps Ur Squamous Epith Cells Ur Transition Epith Cell Ur Renal Epithelial Cell Calcium Oxalate Crystal Leucine Crystals Cystine Crystals Tyrosine Crystals Other Crystals Urine Bacteria Urine Parasites Bilirubin Casts Epithelial Casts Fatty Casts Hyaline Casts Cancelled Granular Casts Cancelled Waxy Casts Cancelled Broad Casts Cancelled RBC Casts Cancelled WBC Casts Cancelled Other Casts Cancelled Urine Trichomonas Cancelled Urine Yeast Cancelled Medications Medications Current Medications Acetaminophen (Acetaminophen 325 Mg Tablet) 650 mg PO Q6H PRN PRN Reason: Headache/Pain Mild Scale (1-3) Al Hydroxide/Mg Hydroxide (Magnesium Hydrox/Alum Hydrox 30 Ml Oral.Susp) 30 ml PO Q6H PRN PRN Reason: Heartburn/Nausea Bupropion HCl (Bupropion Hcl Xl 300 Mg Tab.Er.24h) 300 mg PO DAILY [facility] Last Admin: 02/04/23 09:09 Dose: 300 mg Cariprazine (Cariprazine Hcl 3 Mg Capsule) 6 mg PO DAILY [facility] Last Admin: 02/04/23 09:09 Dose: 6 mg Divalproex Sodium (Divalproex Sodium Er 500 Mg Tab.Er.24h) 1,500 mg PO BEDTIME [facility] Last Admin: 02/03/23 20:28 Dose: 1,500 mg Donepezil HCl (Donepezil Hcl 10 Mg Tablet) 10 mg PO BEDTIME [facility] Last Admin: 02/03/23 20:28 Dose: 10 mg Hydroxyzine HCl (Hydroxyzine Hcl 25 Mg Tablet) 25 mg PO Q6H PRN PRN Reason: Anxiety Lactic Acid (Ammonium Lactate 12 % Lotion 226 Gm Bottle) 1 appl TOPICAL BID [facility]; Protocol Last Admin: 02/04/23 09:09 Dose: Not Given Magnesium Hydroxide (Milk Of Magnesia 30 Ml Oral.Susp) 30 ml PO DAILY PRN PRN Reason: Constipation Melatonin (Melatonin 3 Mg Tablet) 3 mg PO BEDTIME [facility] Last Admin: 02/03/23 20:28 Dose: 3 mg Trazodone HCl (Trazodone Hcl 50 Mg Tablet) 50 mg PO BEDTIME MRX1 PRN PRN Reason: Insomnia Allergies Allergies Allergy/AdvReac Type Severity Reaction Status Date / Time No Known Allergies Allergy Verified 12/13/22 17:46 Assessment & Plan Assessment & Plan (1) Bipolar disorder, most recent episode depressed: Status: Acute Code(s): F31.30 - Bipolar disorder, current episode depressed, mild or moderate severity, unspecified (2) Neurodegenerative cognitive impairment: Status: Acute Code(s): G31.9 - Degenerative disease of nervous system, unspecified (3) Acute UTI: Status: Acute Code(s): N39.0 - Urinary tract infection, site not specified (4) Delirium: Status: Acute Code(s): R41.0 - Disorientation, unspecified Plan The patient is an elderly female with a past history of bipolar disorder, dementia and now admitted for delirium due to UTI. She was residing at [facility] and she had being more confused, hypoactive and despondent in the last 4 days prior to the admission at the emergency room. On the ED, she was diagnosed with a UTI and started on antibiotics. Plan 1. Gather collateral information. 2. Continue with regular medications. 3. Continue with antibiotics. 4. Reassessment with results 5. CBC with differential, basic metabolic panel and UA for January 27. UA came still positive but blood work within normal limits. 6. On January 29 we are lowering Depakote 1500 mg a day and increase Vraylar up to 6 mg daily to target psychosis 7. On January 30 we started Aricept 5 mg p.o. q.h.s. Reason for continued inpatient stay Substantial Risk for: inability to function, rapid decompensation and med/psych decompensation Time Spent With Patient Time: Total time managing care of this patient today __20__ minutes.
[2023-02-04 19:45] VITALS: BP 135/72; PULSE 80; RESP 16; TEMP 36.6; O2SAT 95
[2023-02-04] MEDS: Divalproex Sodium ER 500 MG TAB.ER.24H 1500 MG PO (20:14)
[2023-02-04] MEDS: Donepezil HCl 10 MG TABLET PO (20:14)
[2023-02-04] MEDS: Melatonin 3 MG TABLET PO (20:15)
[2023-02-05 07:00] VITALS: BMI 26.7
[2023-02-05 08:18] VITALS: BP 136/73; PULSE 75; RESP 16; TEMP 36.4; O2SAT 95
[2023-02-05] MEDS: buPROPion HCl XL 300 MG TAB.ER.24H PO (08:21)
[2023-02-05] MEDS: Cariprazine HCl 3 MG CAPSULE 6 MG PO (08:21)
--- NOTE | 2023-02-05 14:16 | HO.PSYCHPN ---
Subjective Subjective Date of Service: 02/05/23 Reason For Visit: mental health emergency Subjective Notes: Conditional Voluntary Interim History: The nursing staff reported the patient has denied anxiety depression or auditory hallucinations she remains passive superficially but pleasant. Fully compliant with treatment The occupational therapist reported that her [place] was done last week and she scored 21/30. The social welfare administrator reported that she is technically homeless, she is [facility] at this moment and we are assessing other housing options. On interview the patient denies new symptoms, waiting for placement. Mental Status Exam Mental Status Exam Patient Appearance: Well Grooomed and Appropriate Patient Orientation: Person and Situation Level of Consciousness: Awake and Appropriate Patient Behavior: Guarded and Passive Mood Description: Withdrawn Affect Description: Constricted Patient Cognition Impaired: Yes Ability to Follow Directions: Good Speech Pattern: Clear Hallucinations: None Delusions: Not Present Thought Process: Distracted and Linear Thought Content: positive for [place] and positive for Circumstantial Judgement: Fair Diagnostics Vital Signs (24Hr): Vital Signs - 24 hr 02/04/23 19:45 02/05/23 08:18 Temperature 97.9 F 97.6 F Pulse Rate 80 75 Respiratory Rate 16 16 Blood Pressure 135/72 136/73 Pulse Oximetry 95 95 Oxygen Delivery Method Room Air Room Air BMI result Body Mass Index 26.7 Labs 01/27/23 08:43 01/27/23 08:43 Medications Medications Current Medications Acetaminophen (Acetaminophen 325 Mg Tablet) 650 mg PO Q6H PRN PRN Reason: Headache/Pain Mild Scale (1-3) Al Hydroxide/Mg Hydroxide (Magnesium Hydrox/Alum Hydrox 30 Ml Oral.Susp) 30 ml PO Q6H PRN PRN Reason: Heartburn/Nausea Bupropion HCl (Bupropion Hcl Xl 300 Mg Tab.Er.24h) 300 mg PO DAILY [facility] Last Admin: 02/05/23 08:21 Dose: 300 mg Cariprazine (Cariprazine Hcl 3 Mg Capsule) 6 mg PO DAILY [facility] Last Admin: 02/05/23 08:21 Dose: 6 mg Divalproex Sodium (Divalproex Sodium Er 500 Mg Tab.Er.24h) 1,500 mg PO BEDTIME [facility] Last Admin: 02/04/23 20:14 Dose: 1,500 mg Donepezil HCl (Donepezil Hcl 10 Mg Tablet) 10 mg PO BEDTIME [facility] Last Admin: 02/04/23 20:14 Dose: 10 mg Hydroxyzine HCl (Hydroxyzine Hcl 25 Mg Tablet) 25 mg PO Q6H PRN PRN Reason: Anxiety Lactic Acid (Ammonium Lactate 12 % Lotion 226 Gm Bottle) 1 appl TOPICAL BID [facility]; Protocol Last Admin: 02/05/23 08:23 Dose: Not Given Magnesium Hydroxide (Milk Of Magnesia 30 Ml Oral.Susp) 30 ml PO DAILY PRN PRN Reason: Constipation Melatonin (Melatonin 3 Mg Tablet) 3 mg PO BEDTIME [facility] Last Admin: 02/04/23 20:15 Dose: 3 mg Trazodone HCl (Trazodone Hcl 50 Mg Tablet) 50 mg PO BEDTIME MRX1 PRN PRN Reason: Insomnia Allergies Allergies Allergy/AdvReac Type Severity Reaction Status Date / Time No Known Allergies Allergy Verified 12/13/22 17:46 Assessment & Plan Assessment & Plan (1) Bipolar disorder, most recent episode depressed: Status: Acute Code(s): F31.30 - Bipolar disorder, current episode depressed, mild or moderate severity, unspecified (2) Neurodegenerative cognitive impairment: Status: Acute Code(s): G31.9 - Degenerative disease of nervous system, unspecified (3) Acute UTI: Status: Acute Code(s): N39.0 - Urinary tract infection, site not specified (4) Delirium: Status: Acute Code(s): R41.0 - Disorientation, unspecified Plan The patient is an elderly female with a past history of bipolar disorder, dementia and now admitted for delirium due to UTI. She was residing at [facility] and she had being more confused, hypoactive and despondent in the last 4 days prior to the admission at the emergency room. On the ED, she was diagnosed with a UTI and started on antibiotics. Plan 1. Gather collateral information. 2. Continue with regular medications. 3. Continue with antibiotics. 4. Reassessment with results 5. CBC with differential, basic metabolic panel and UA for January 27. UA came still positive but blood work within normal limits. 6. On January 29 we are lowering Depakote 1500 mg a day and increase Vraylar up to 6 mg daily to target psychosis 7. On January 30 we started Aricept 5 mg p.o. q.h.s. Reason for continued inpatient stay Substantial Risk for: inability to function, rapid decompensation and med/psych decompensation Time Spent With Patient Time: Total time managing care of this patient today __20__ minutes.
[2023-02-05] MEDS: Donepezil HCl 10 MG TABLET PO (19:57)
[2023-02-05] MEDS: Divalproex Sodium ER 500 MG TAB.ER.24H 1500 MG PO (19:57)
[2023-02-05] MEDS: Melatonin 3 MG TABLET PO (19:57)
[2023-02-05 20:40] VITALS: BP 142/69; PULSE 84; RESP 18; TEMP 36.1; O2SAT 100
[2023-02-06 06:00] VITALS: BP 120/61; PULSE 77; RESP 18; TEMP 36.2; O2SAT 97
[2023-02-06] MEDS: Cariprazine HCl 3 MG CAPSULE 6 MG PO (07:37)
--- NOTE | 2023-02-06 11:24 | HO.PSYCHPN ---
Subjective Subjective Date of Service: 02/06/23 Reason For Visit: mental health emergency Interim History: Reviewed with the team who report pt is not as talkative as usual with flat affect, a new presentation they believe. Met with pt who is in the milieu with a peer. She is cheerful and jovial, informing tw that I am going today. Reports feeling well, denies depressive sx, reports good appetite and intake, sleep could be increased as they check the doors too much here and my room-mate snores , but, I love it here and I love the people here, everyone is good. Denies pain or medical symptoms of concern. Medication Compliance: Yes Side effects from medications: No Attending Groups: Yes Review of Systems Acute medical concerns: No Medical Review of Systems: unchanged Mental Status Exam Mental Status Exam Patient Appearance: Appropriate Patient Orientation: Person, Place, Time and Situation Level of Consciousness: Alert Patient Behavior: Talkative, Cooperative, Distractible, Confused and Good Eye Contact Mood Description: Cheerful Affect Description: Cheerful Patient Cognition Impaired: Yes Ability to Follow Directions: Good Speech Pattern: Spontaneous Speech and Soft-Spoken Memory Description: Remote Impaired Hallucinations: None Delusions: Not Present Thought Process: Confusion Thought Content: positive for [place], positive for Circumstantial and positive for Suicidal Ideation (denies, laughs and says, noooo ) Judgement: Fair Diagnostics Vital Signs (24Hr): Vital Signs - 24 hr 02/05/23 20:40 02/06/23 06:00 Temperature 96.9 F 97.1 F Pulse Rate 84 77 Respiratory Rate 18 18 Blood Pressure 142/69 H 120/61 Pulse Oximetry 100 97 Oxygen Delivery Method Room Air Room Air BMI result Body Mass Index 26.7 Labs 01/27/23 08:43 01/27/23 08:43 Medications Medications Current Medications Acetaminophen (Acetaminophen 325 Mg Tablet) 650 mg PO Q6H PRN PRN Reason: Headache/Pain Mild Scale (1-3) Al Hydroxide/Mg Hydroxide (Magnesium Hydrox/Alum Hydrox 30 Ml Oral.Susp) 30 ml PO Q6H PRN PRN Reason: Heartburn/Nausea Bupropion HCl (Bupropion Hcl Xl 300 Mg Tab.Er.24h) 300 mg PO DAILY [facility] Last Admin: 02/06/23 07:37 Dose: 300 mg Cariprazine (Cariprazine Hcl 3 Mg Capsule) 6 mg PO DAILY [facility] Last Admin: 02/06/23 07:37 Dose: 6 mg Divalproex Sodium (Divalproex Sodium Er 500 Mg Tab.Er.24h) 1,500 mg PO BEDTIME [facility] Last Admin: 02/05/23 19:57 Dose: 1,500 mg Donepezil HCl (Donepezil Hcl 10 Mg Tablet) 10 mg PO BEDTIME [facility] Last Admin: 02/05/23 19:57 Dose: 10 mg Hydroxyzine HCl (Hydroxyzine Hcl 25 Mg Tablet) 25 mg PO Q6H PRN PRN Reason: Anxiety Lactic Acid (Ammonium Lactate 12 % Lotion 226 Gm Bottle) 1 appl TOPICAL BID [facility]; Protocol Last Admin: 02/06/23 07:38 Dose: Not Given Magnesium Hydroxide (Milk Of Magnesia 30 Ml Oral.Susp) 30 ml PO DAILY PRN PRN Reason: Constipation Melatonin (Melatonin 3 Mg Tablet) 3 mg PO BEDTIME [facility] Last Admin: 02/05/23 19:57 Dose: 3 mg Trazodone HCl (Trazodone Hcl 50 Mg Tablet) 50 mg PO BEDTIME MRX1 PRN PRN Reason: Insomnia Allergies Allergies Allergy/AdvReac Type Severity Reaction Status Date / Time No Known Allergies Allergy Verified 12/13/22 17:46 Assessment & Plan Assessment & Plan (1) Bipolar disorder, most recent episode depressed: Status: Acute Code(s): F31.30 - Bipolar disorder, current episode depressed, mild or moderate severity, unspecified (2) Neurodegenerative cognitive impairment: Status: Acute Code(s): G31.9 - Degenerative disease of nervous system, unspecified (3) Acute UTI: Status: Acute Code(s): N39.0 - Urinary tract infection, site not specified (4) Delirium: Status: Acute Code(s): R41.0 - Disorientation, unspecified Plan The patient is an elderly female with a past history of bipolar disorder, dementia and now admitted for delirium due to UTI. She was residing at [facility] and she had being more confused, hypoactive and despondent in the last 4 days prior to the admission at the emergency room. On the ED, she was diagnosed with a UTI and started on antibiotics. Plan 1. Gather collateral information. 2. Continue with regular medications. 3. Continue with antibiotics. 4. Reassessment with results 5. CBC with differential, basic metabolic panel and UA for January 27. UA came still positive but blood work within normal limits. 6. On January 29 we are lowering Depakote 1500 mg a day and increase Vraylar up to 6 mg daily to target psychosis 7. On January 30 we started Aricept 5 mg p.o. q.h.s. 02/06/23 Continue current plan and regime. Informed Consent: does not understand Reason for continued inpatient stay Substantial Risk for: inability to function and rapid decompensation Time Spent With Patient Time: Total time managing care of this patient today ____ minutes.
[2023-02-06 18:00] VITALS: BP 130/63; PULSE 73; RESP 17; TEMP 36.7; O2SAT 99
[2023-02-06] MEDS: Melatonin 3 MG TABLET PO (20:19)
[2023-02-06] MEDS: Divalproex Sodium ER 500 MG TAB.ER.24H 1500 MG PO (20:19)
[2023-02-06] MEDS: Donepezil HCl 10 MG TABLET PO (20:19)
[2023-02-07 08:00] VITALS: BP 133/72; PULSE 79; RESP 18; TEMP 36.8; O2SAT 98
[2023-02-07] MEDS: Cariprazine HCl 3 MG CAPSULE 6 MG PO (08:45)
--- NOTE | 2023-02-07 13:21 | HO.PSYCHPN ---
Subjective Subjective Date of Service: 02/07/23 Reason For Visit: mental health emergency Medical Problems Affecting Mental Status: No Interim History: Pt seen, discussed with the team. Plan of care reviewed. Visable in milieu, ambulatory, accepting medications. Reports sleep and appetite are adequate. Team reports no behavioral issues, pt described as passive. Today she is jovial, well engaged, playing bingo with her peers and reports she is well. Medication Compliance: Yes Side effects from medications: No Attending Groups: Yes Review of Systems Acute medical concerns: No Medical Review of Systems: unchanged Mental Status Exam Mental Status Exam Patient Appearance: Appropriate Patient Orientation: Person, Place, Time and Situation Level of Consciousness: Alert Patient Behavior: Talkative, Cooperative, Distractible, Confused and Good Eye Contact Mood Description: Cheerful Affect Description: Cheerful Patient Cognition Impaired: Yes Ability to Follow Directions: Good Speech Pattern: Spontaneous Speech and Soft-Spoken Memory Description: Remote Impaired Hallucinations: None Delusions: Not Present Thought Process: Confusion Thought Content: positive for [place], positive for Circumstantial and positive for Suicidal Ideation (denies, laughs and says, noooo ) Judgement: Fair Diagnostics Vital Signs (24Hr): Vital Signs - 24 hr 02/06/23 18:00 02/07/23 08:00 Temperature 98.0 F 98.2 F Pulse Rate 73 79 Respiratory Rate 17 18 Blood Pressure 130/63 133/72 Pulse Oximetry 99 98 Oxygen Delivery Method Room Air Room Air BMI result Body Mass Index 26.7 Labs 01/27/23 08:43 01/27/23 08:43 Medications Medications Current Medications Acetaminophen (Acetaminophen 325 Mg Tablet) 650 mg PO Q6H PRN PRN Reason: Headache/Pain Mild Scale (1-3) Al Hydroxide/Mg Hydroxide (Magnesium Hydrox/Alum Hydrox 30 Ml Oral.Susp) 30 ml PO Q6H PRN PRN Reason: Heartburn/Nausea Bupropion HCl (Bupropion Hcl Xl 300 Mg Tab.Er.24h) 300 mg PO DAILY [facility] Last Admin: 02/07/23 08:45 Dose: 300 mg Cariprazine (Cariprazine Hcl 3 Mg Capsule) 6 mg PO DAILY [facility] Last Admin: 02/07/23 08:45 Dose: 6 mg Divalproex Sodium (Divalproex Sodium Er 500 Mg Tab.Er.24h) 1,500 mg PO BEDTIME [facility] Last Admin: 02/06/23 20:19 Dose: 1,500 mg Donepezil HCl (Donepezil Hcl 10 Mg Tablet) 10 mg PO BEDTIME [facility] Last Admin: 02/06/23 20:19 Dose: 10 mg Hydroxyzine HCl (Hydroxyzine Hcl 25 Mg Tablet) 25 mg PO Q6H PRN PRN Reason: Anxiety Lactic Acid (Ammonium Lactate 12 % Lotion 226 Gm Bottle) 1 appl TOPICAL BID [facility]; Protocol Last Admin: 02/07/23 08:46 Dose: Not Given Magnesium Hydroxide (Milk Of Magnesia 30 Ml Oral.Susp) 30 ml PO DAILY PRN PRN Reason: Constipation Melatonin (Melatonin 3 Mg Tablet) 3 mg PO BEDTIME [facility] Last Admin: 02/06/23 20:19 Dose: 3 mg Trazodone HCl (Trazodone Hcl 50 Mg Tablet) 50 mg PO BEDTIME MRX1 PRN PRN Reason: Insomnia Allergies Allergies Allergy/AdvReac Type Severity Reaction Status Date / Time No Known Allergies Allergy Verified 12/13/22 17:46 Assessment & Plan Assessment & Plan (1) Bipolar disorder, most recent episode depressed: Status: Acute Code(s): F31.30 - Bipolar disorder, current episode depressed, mild or moderate severity, unspecified (2) Neurodegenerative cognitive impairment: Status: Acute Code(s): G31.9 - Degenerative disease of nervous system, unspecified (3) Acute UTI: Status: Acute Code(s): N39.0 - Urinary tract infection, site not specified (4) Delirium: Status: Acute Code(s): R41.0 - Disorientation, unspecified Plan The patient is an elderly female with a past history of bipolar disorder, dementia and now admitted for delirium due to UTI. She was residing at [facility] and she had being more confused, hypoactive and despondent in the last 4 days prior to the admission at the emergency room. On the ED, she was diagnosed with a UTI and started on antibiotics. Plan 1. Gather collateral information. 2. Continue with regular medications. 3. Continue with antibiotics. 4. Reassessment with results 5. CBC with differential, basic metabolic panel and UA for January 27. UA came still positive but blood work within normal limits. 6. On January 29 we are lowering Depakote 1500 mg a day and increase Vraylar up to 6 mg daily to target psychosis 7. On January 30 we started Aricept 5 mg p.o. q.h.s. 02/06/23 Continue current plan and regime. 02/07/23 Continue current plan and regime. Informed Consent: does not understand Reason for continued inpatient stay Substantial Risk for: rapid decompensation Time Spent With Patient Time: Total time managing care of this patient today ____ minutes.
[2023-02-07 18:00] VITALS: BP 109/68; PULSE 74; RESP 16; TEMP 36.5; O2SAT 96
[2023-02-07] MEDS: Divalproex Sodium ER 500 MG TAB.ER.24H 1500 MG PO (20:54)
[2023-02-07] MEDS: Melatonin 3 MG TABLET PO (20:55)
[2023-02-08 08:00] VITALS: BP 130/76; PULSE 75; RESP 16; TEMP 36.7; O2SAT 98
[2023-02-08] MEDS: Cariprazine HCl 3 MG CAPSULE 6 MG PO (08:08)
--- NOTE | 2023-02-08 13:36 | HO.PSYCHPN ---
Subjective Subjective Date of Service: 02/09/23 Reason For Visit: mental health emergency Interim History: Pt seen, reviewed with team. Plan of care reviewed. Pt in the milieu, active attentive and participating. Spontaneous smile, attentive to activity and engaged today. Medication Compliance: Yes Side effects from medications: No Attending Groups: Yes Review of Systems Acute medical concerns: No Mental Status Exam Mental Status Exam Patient Appearance: Appropriate Patient Orientation: Person, Place, Time and Situation Level of Consciousness: Alert Patient Behavior: Talkative, Cooperative, Distractible, Confused and Good Eye Contact Mood Description: Cheerful Affect Description: Cheerful Patient Cognition Impaired: Yes Ability to Follow Directions: Good Speech Pattern: Spontaneous Speech and Soft-Spoken Memory Description: Remote Impaired Hallucinations: None Delusions: Not Present Thought Process: Confusion Thought Content: positive for [place], positive for Circumstantial and positive for Suicidal Ideation (denies, laughs and says, noooo ) Judgement: Fair Diagnostics Vital Signs (24Hr): Vital Signs - 24 hr 02/07/23 18:00 02/08/23 08:00 Temperature 97.7 F 98.1 F Pulse Rate 74 75 Respiratory Rate 16 16 Blood Pressure 109/68 130/76 Pulse Oximetry 96 98 Oxygen Delivery Method Room Air Room Air BMI result Body Mass Index 26.7 Labs 01/27/23 08:43 01/27/23 08:43 Medications Medications Current Medications Acetaminophen (Acetaminophen 325 Mg Tablet) 650 mg PO Q6H PRN PRN Reason: Headache/Pain Mild Scale (1-3) Al Hydroxide/Mg Hydroxide (Magnesium Hydrox/Alum Hydrox 30 Ml Oral.Susp) 30 ml PO Q6H PRN PRN Reason: Heartburn/Nausea Bupropion HCl (Bupropion Hcl Xl 300 Mg Tab.Er.24h) 300 mg PO DAILY [facility] Last Admin: 02/08/23 08:08 Dose: 300 mg Cariprazine (Cariprazine Hcl 3 Mg Capsule) 6 mg PO DAILY [facility] Last Admin: 02/08/23 08:08 Dose: 6 mg Divalproex Sodium (Divalproex Sodium Er 500 Mg Tab.Er.24h) 1,500 mg PO BEDTIME [facility] Last Admin: 02/07/23 20:54 Dose: 1,500 mg Donepezil HCl (Donepezil Hcl 10 Mg Tablet) 10 mg PO BEDTIME [facility] Last Admin: 02/07/23 20:55 Dose: 10 mg Hydroxyzine HCl (Hydroxyzine Hcl 25 Mg Tablet) 25 mg PO Q6H PRN PRN Reason: Anxiety Lactic Acid (Ammonium Lactate 12 % Lotion 226 Gm Bottle) 1 appl TOPICAL BID [facility]; Protocol Last Admin: 02/08/23 08:10 Dose: Not Given Magnesium Hydroxide (Milk Of Magnesia 30 Ml Oral.Susp) 30 ml PO DAILY PRN PRN Reason: Constipation Melatonin (Melatonin 3 Mg Tablet) 3 mg PO BEDTIME [facility] Last Admin: 02/07/23 20:55 Dose: 3 mg Trazodone HCl (Trazodone Hcl 50 Mg Tablet) 50 mg PO BEDTIME MRX1 PRN PRN Reason: Insomnia Allergies Allergies Allergy/AdvReac Type Severity Reaction Status Date / Time No Known Allergies Allergy Verified 12/13/22 17:46 Assessment & Plan Assessment & Plan (1) Bipolar disorder, most recent episode depressed: Status: Acute Code(s): F31.30 - Bipolar disorder, current episode depressed, mild or moderate severity, unspecified (2) Neurodegenerative cognitive impairment: Status: Acute Code(s): G31.9 - Degenerative disease of nervous system, unspecified (3) Acute UTI: Status: Acute Code(s): N39.0 - Urinary tract infection, site not specified (4) Delirium: Status: Acute Code(s): R41.0 - Disorientation, unspecified Plan The patient is an elderly female with a past history of bipolar disorder, dementia and now admitted for delirium due to UTI. She was residing at [facility] and she had being more confused, hypoactive and despondent in the last 4 days prior to the admission at the emergency room. On the ED, she was diagnosed with a UTI and started on antibiotics. Plan 1. Gather collateral information. 2. Continue with regular medications. 3. Continue with antibiotics. 4. Reassessment with results 5. CBC with differential, basic metabolic panel and UA for January 27. UA came still positive but blood work within normal limits. 6. On January 29 we are lowering Depakote 1500 mg a day and increase Vraylar up to 6 mg daily to target psychosis 7. On January 30 we started Aricept 5 mg p.o. q.h.s. 02/06/23 Continue current plan and regime. 02/07/23 Continue current plan and regime. 02/08/23 Continue current plan and regime Informed Consent: does not understand and further education needed Reason for continued inpatient stay Substantial Risk for: rapid decompensation Time Spent With Patient Time: Total time managing care of this patient today ____ minutes.
[2023-02-08 18:00] VITALS: BP 140/64; PULSE 72; RESP 18; TEMP 36; O2SAT 98
[2023-02-08] MEDS: Divalproex Sodium ER 500 MG TAB.ER.24H 1500 MG PO (20:55)
[2023-02-08] MEDS: Melatonin 3 MG TABLET PO (20:56)
[2023-02-09 06:00] VITALS: BP 102/69; PULSE 71; RESP 16; TEMP 36.2; O2SAT 100
--- NOTE | 2023-02-09 13:32 | HO.PSYCHPN ---
Subjective Subjective Date of Service: 02/09/23 Reason For Visit: mental health emergency Interim History: Pt seen, discussed with team, plan of care reviewed. Team report pt continues to do well. No current concerns. Pt today is focused on her snack while in the milieu-less attentive to her environment today and with focus on her beverage Medication Compliance: Yes Side effects from medications: No Attending Groups: Yes Review of Systems Acute medical concerns: No Medical Review of Systems: unchanged Mental Status Exam Mental Status Exam Patient Appearance: Appropriate Patient Orientation: Person, Place, Time and Situation Level of Consciousness: Alert Patient Behavior: Talkative, Cooperative, Distractible, Confused and Good Eye Contact Mood Description: Cheerful Affect Description: Cheerful Patient Cognition Impaired: Yes Ability to Follow Directions: Good Speech Pattern: Spontaneous Speech and Soft-Spoken Memory Description: Remote Impaired Hallucinations: None Delusions: Not Present Thought Process: Confusion Thought Content: positive for [place], positive for Circumstantial and positive for Suicidal Ideation (denies, laughs and says, noooo ) Judgement: Fair Diagnostics Vital Signs (24Hr): Vital Signs - 24 hr 02/08/23 18:00 02/09/23 06:00 Temperature 96.8 F 97.1 F Pulse Rate 72 71 Respiratory Rate 18 16 Blood Pressure 140/64 H 102/69 Pulse Oximetry 98 100 Oxygen Delivery Method Room Air Room Air BMI result Body Mass Index 26.7 Labs 01/27/23 08:43 01/27/23 08:43 Medications Medications Current Medications Acetaminophen (Acetaminophen 325 Mg Tablet) 650 mg PO Q6H PRN PRN Reason: Headache/Pain Mild Scale (1-3) Al Hydroxide/Mg Hydroxide (Magnesium Hydrox/Alum Hydrox 30 Ml Oral.Susp) 30 ml PO Q6H PRN PRN Reason: Heartburn/Nausea Bupropion HCl (Bupropion Hcl Xl 300 Mg Tab.Er.24h) 300 mg PO DAILY [facility] Last Admin: 02/09/23 08:40 Dose: 300 mg Cariprazine (Cariprazine Hcl 3 Mg Capsule) 6 mg PO DAILY [facility] Last Admin: 02/09/23 08:40 Dose: 6 mg Divalproex Sodium (Divalproex Sodium Er 500 Mg Tab.Er.24h) 1,500 mg PO BEDTIME [facility] Last Admin: 02/08/23 20:55 Dose: 1,500 mg Donepezil HCl (Donepezil Hcl 10 Mg Tablet) 10 mg PO BEDTIME [facility] Last Admin: 02/08/23 20:56 Dose: 10 mg Hydroxyzine HCl (Hydroxyzine Hcl 25 Mg Tablet) 25 mg PO Q6H PRN PRN Reason: Anxiety Lactic Acid (Ammonium Lactate 12 % Lotion 226 Gm Bottle) 1 appl TOPICAL BID [facility]; Protocol Last Admin: 02/09/23 08:51 Dose: Not Given Magnesium Hydroxide (Milk Of Magnesia 30 Ml Oral.Susp) 30 ml PO DAILY PRN PRN Reason: Constipation Melatonin (Melatonin 3 Mg Tablet) 3 mg PO BEDTIME [facility] Last Admin: 02/08/23 20:56 Dose: 3 mg Trazodone HCl (Trazodone Hcl 50 Mg Tablet) 50 mg PO BEDTIME MRX1 PRN PRN Reason: Insomnia Last Admin: 02/08/23 20:56 Dose: 50 mg Allergies Allergies Allergy/AdvReac Type Severity Reaction Status Date / Time No Known Allergies Allergy Verified 12/13/22 17:46 Assessment & Plan Assessment & Plan (1) Bipolar disorder, most recent episode depressed: Status: Acute Code(s): F31.30 - Bipolar disorder, current episode depressed, mild or moderate severity, unspecified (2) Neurodegenerative cognitive impairment: Status: Acute Code(s): G31.9 - Degenerative disease of nervous system, unspecified (3) Acute UTI: Status: Acute Code(s): N39.0 - Urinary tract infection, site not specified (4) Delirium: Status: Acute Code(s): R41.0 - Disorientation, unspecified Plan The patient is an elderly female with a past history of bipolar disorder, dementia and now admitted for delirium due to UTI. She was residing at [facility] and she had being more confused, hypoactive and despondent in the last 4 days prior to the admission at the emergency room. On the ED, she was diagnosed with a UTI and started on antibiotics. Plan 1. Gather collateral information. 2. Continue with regular medications. 3. Continue with antibiotics. 4. Reassessment with results 5. CBC with differential, basic metabolic panel and UA for January 27. UA came still positive but blood work within normal limits. 6. On January 29 we are lowering Depakote 1500 mg a day and increase Vraylar up to 6 mg daily to target psychosis 7. On January 30 we started Aricept 5 mg p.o. q.h.s. 02/06/23 Continue current plan and regime. 02/07/23 Continue current plan and regime. 02/09/23 Continue current plan and regime. Informed Consent: does not understand and further education needed Reason for continued inpatient stay Substantial Risk for: rapid decompensation Time Spent With Patient Time: Total time managing care of this patient today ____ minutes.
[2023-02-09 20:00] VITALS: BP 106/63; PULSE 71; RESP 16; TEMP 36.1; O2SAT 95
[2023-02-09] MEDS: Melatonin 3 MG TABLET PO (20:05)
[2023-02-09] MEDS: Divalproex Sodium ER 500 MG TAB.ER.24H 1500 MG PO (20:06)
[2023-02-10 08:30] VITALS: BP 110/54; PULSE 75; RESP 18; TEMP 36.2; O2SAT 98
--- NOTE | 2023-02-10 12:19 | HO.PSYCHPN ---
Subjective Subjective Date of Service: 02/10/23 Reason For Visit: mental health emergency Subjective Notes: Conditional Voluntary Interim History: The nursing staff reported the patient attended to groups, she has been pleasant, denies psychotic symptoms The social sciences lecturer reported that he is causing is working for a placement at this moment. On interview the patient denies new symptoms, waiting for placement Mental Status Exam Mental Status Exam Patient Appearance: Well Grooomed Patient Orientation: Person Level of Consciousness: Awake Patient Behavior: Guarded and Passive Mood Description: Withdrawn Affect Description: Constricted Patient Cognition Impaired: Yes Ability to Follow Directions: Good Speech Pattern: Clear Hallucinations: None Delusions: Not Present Thought Process: Distracted and Slowed Thinking Thought Content: positive for [place], positive for Circumstantial and positive for [place] of Content Judgement: Fair Diagnostics Vital Signs (24Hr): Vital Signs - 24 hr 02/09/23 20:00 02/10/23 08:30 Temperature 96.9 F 97.1 F Pulse Rate 71 75 Respiratory Rate 16 18 Blood Pressure 106/63 110/54 L Pulse Oximetry 95 98 Oxygen Delivery Method Room Air Room Air BMI result Body Mass Index 26.7 Labs 01/27/23 08:43 01/27/23 08:43 Medications Medications Current Medications Acetaminophen (Acetaminophen 325 Mg Tablet) 650 mg PO Q6H PRN PRN Reason: Headache/Pain Mild Scale (1-3) Al Hydroxide/Mg Hydroxide (Magnesium Hydrox/Alum Hydrox 30 Ml Oral.Susp) 30 ml PO Q6H PRN PRN Reason: Heartburn/Nausea Bupropion HCl (Bupropion Hcl Xl 300 Mg Tab.Er.24h) 300 mg PO DAILY [facility] Last Admin: 02/10/23 08:35 Dose: 300 mg Cariprazine (Cariprazine Hcl 3 Mg Capsule) 6 mg PO DAILY [facility] Last Admin: 02/10/23 08:35 Dose: 6 mg Divalproex Sodium (Divalproex Sodium Er 500 Mg Tab.Er.24h) 1,500 mg PO BEDTIME [facility] Last Admin: 02/09/23 20:06 Dose: 1,500 mg Donepezil HCl (Donepezil Hcl 10 Mg Tablet) 10 mg PO BEDTIME [facility] Last Admin: 02/09/23 20:05 Dose: 10 mg Hydroxyzine HCl (Hydroxyzine Hcl 25 Mg Tablet) 25 mg PO Q6H PRN PRN Reason: Anxiety Lactic Acid (Ammonium Lactate 12 % Lotion 226 Gm Bottle) 1 appl TOPICAL BID [facility]; Protocol Last Admin: 02/10/23 08:36 Dose: Not Given Magnesium Hydroxide (Milk Of Magnesia 30 Ml Oral.Susp) 30 ml PO DAILY PRN PRN Reason: Constipation Melatonin (Melatonin 3 Mg Tablet) 3 mg PO BEDTIME [facility] Last Admin: 02/09/23 20:05 Dose: 3 mg Trazodone HCl (Trazodone Hcl 50 Mg Tablet) 50 mg PO BEDTIME MRX1 PRN PRN Reason: Insomnia Last Admin: 02/08/23 20:56 Dose: 50 mg Allergies Allergies Allergy/AdvReac Type Severity Reaction Status Date / Time No Known Allergies Allergy Verified 12/13/22 17:46 Assessment & Plan Assessment & Plan (1) Bipolar disorder, most recent episode depressed: Status: Acute Code(s): F31.30 - Bipolar disorder, current episode depressed, mild or moderate severity, unspecified (2) Neurodegenerative cognitive impairment: Status: Acute Code(s): G31.9 - Degenerative disease of nervous system, unspecified (3) Acute UTI: Status: Acute Code(s): N39.0 - Urinary tract infection, site not specified (4) Delirium: Status: Acute Code(s): R41.0 - Disorientation, unspecified Plan The patient is an elderly female with a past history of bipolar disorder, dementia and now admitted for delirium due to UTI. She was residing at [facility] and she had being more confused, hypoactive and despondent in the last 4 days prior to the admission at the emergency room. On the ED, she was diagnosed with a UTI and started on antibiotics. Plan 1. Gather collateral information. 2. Continue with regular medications. 3. Continue with antibiotics. 4. Reassessment with results 5. CBC with differential, basic metabolic panel and UA for January 27. UA came still positive but blood work within normal limits. 6. On January 29 we are lowering Depakote 1500 mg a day and increase Vraylar up to 6 mg daily to target psychosis 7. On January 30 we started Aricept 5 mg p.o. q.h.s. Reason for continued inpatient stay Substantial Risk for: inability to function, rapid decompensation and med/psych decompensation Time Spent With Patient Time: Total time managing care of this patient today ___20_ minutes.
[2023-02-10 18:00] VITALS: BP 133/68; PULSE 68; RESP 17; TEMP 36.6; O2SAT 99
[2023-02-10] MEDS: Divalproex Sodium ER 500 MG TAB.ER.24H 1500 MG PO (19:53)
[2023-02-10] MEDS: Melatonin 3 MG TABLET PO (19:53)
[2023-02-11 07:48] VITALS: BP 126/68; PULSE 76; RESP 18; TEMP 36.1; O2SAT 98
--- NOTE | 2023-02-11 15:37 | HO.PSYCHPN ---
Subjective Subjective Date of Service: 02/11/23 Reason For Visit: mental health emergency Subjective Notes: Conditional Voluntary Interim History: The nursing staff reported the patient had been pleasant cooperative with a flat affect, compliant with medications and meals. She reported a headache at 04:00 o'clock in the morning and received Tylenol. She was seen in the unit watching TV but mostly isolative. The geriatric social work professor is trying to look for a rest home for placement. On interview the patient denies new symptoms, waiting for placement. Mental Status Exam Mental Status Exam Patient Appearance: Appropriate Patient Orientation: Person and Situation Level of Consciousness: Awake and Appropriate Patient Behavior: Guarded and Passive Mood Description: Withdrawn Affect Description: Constricted Patient Cognition Impaired: Yes Ability to Follow Directions: Good Speech Pattern: Clear Hallucinations: None Delusions: Not Present Thought Process: Distracted and Evasive Thought Content: positive for [place], positive for Circumstantial and positive for Poverty of Content Judgement: Fair Diagnostics Vital Signs (24Hr): Vital Signs - 24 hr 02/10/23 18:00 02/11/23 07:48 Temperature 97.9 F 97.0 F Pulse Rate 68 76 Respiratory Rate 17 18 Blood Pressure 133/68 126/68 Pulse Oximetry 99 98 Oxygen Delivery Method Room Air Room Air BMI result Body Mass Index 26.7 Labs 01/27/23 08:43 01/27/23 08:43 Medications Medications Current Medications Acetaminophen (Acetaminophen 325 Mg Tablet) 650 mg PO Q6H PRN PRN Reason: Headache/Pain Mild Scale (1-3) Last Admin: 02/11/23 04:08 Dose: 650 mg Al Hydroxide/Mg Hydroxide (Magnesium Hydrox/Alum Hydrox 30 Ml Oral.Susp) 30 ml PO Q6H PRN PRN Reason: Heartburn/Nausea Bupropion HCl (Bupropion Hcl Xl 300 Mg Tab.Er.24h) 300 mg PO DAILY [facility] Last Admin: 02/11/23 08:37 Dose: 300 mg Cariprazine (Cariprazine Hcl 3 Mg Capsule) 6 mg PO DAILY [facility] Last Admin: 02/11/23 08:37 Dose: 6 mg Divalproex Sodium (Divalproex Sodium Er 500 Mg Tab.Er.24h) 1,500 mg PO BEDTIME [facility] Last Admin: 02/10/23 19:53 Dose: 1,500 mg Donepezil HCl (Donepezil Hcl 10 Mg Tablet) 10 mg PO BEDTIME [facility] Last Admin: 02/10/23 19:53 Dose: 10 mg Hydroxyzine HCl (Hydroxyzine Hcl 25 Mg Tablet) 25 mg PO Q6H PRN PRN Reason: Anxiety Lactic Acid (Ammonium Lactate 12 % Lotion 226 Gm Bottle) 1 appl TOPICAL BID [facility]; Protocol Last Admin: 02/11/23 08:39 Dose: Not Given Magnesium Hydroxide (Milk Of Magnesia 30 Ml Oral.Susp) 30 ml PO DAILY PRN PRN Reason: Constipation Melatonin (Melatonin 3 Mg Tablet) 3 mg PO BEDTIME [facility] Last Admin: 02/10/23 19:53 Dose: 3 mg Trazodone HCl (Trazodone Hcl 50 Mg Tablet) 50 mg PO BEDTIME MRX1 PRN PRN Reason: Insomnia Last Admin: 02/10/23 19:54 Dose: 50 mg Allergies Allergies Allergy/AdvReac Type Severity Reaction Status Date / Time No Known Allergies Allergy Verified 12/13/22 17:46 Assessment & Plan Assessment & Plan (1) Bipolar disorder, most recent episode depressed: Status: Acute Code(s): F31.30 - Bipolar disorder, current episode depressed, mild or moderate severity, unspecified (2) Neurodegenerative cognitive impairment: Status: Acute Code(s): G31.9 - Degenerative disease of nervous system, unspecified (3) Acute UTI: Status: Acute Code(s): N39.0 - Urinary tract infection, site not specified (4) Delirium: Status: Acute Code(s): R41.0 - Disorientation, unspecified Plan The patient is an elderly female with a past history of bipolar disorder, dementia and now admitted for delirium due to UTI. She was residing at [facility] and she had being more confused, hypoactive and despondent in the last 4 days prior to the admission at the emergency room. On the ED, she was diagnosed with a UTI and started on antibiotics. Plan 1. Gather collateral information. 2. Continue with regular medications. 3. Continue with antibiotics. 4. Reassessment with results 5. CBC with differential, basic metabolic panel and UA for January 27. UA came still positive but blood work within normal limits. 6. On January 29 we are lowering Depakote 1500 mg a day and increase Vraylar up to 6 mg daily to target psychosis 7. On January 30 we started Aricept 5 mg p.o. q.h.s. Reason for continued inpatient stay Substantial Risk for: inability to function, rapid decompensation and med/psych decompensation Time Spent With Patient Time: Total time managing care of this patient today __20__ minutes.
[2023-02-11 18:00] VITALS: BP 107/61; PULSE 69; RESP 16; TEMP 36.2; O2SAT 97
[2023-02-11] MEDS: Divalproex Sodium ER 500 MG TAB.ER.24H 1500 MG PO (20:02)
[2023-02-11] MEDS: Melatonin 3 MG TABLET PO (20:03)
[2023-02-11] MEDS: Donepezil HCl 10 MG TABLET PO (20:03)
[2023-02-12 06:00] VITALS: BP 113/61; PULSE 69; RESP 16; TEMP 36.3; O2SAT 98
[2023-02-12 07:00] VITALS: BMI 26.7
[2023-02-12] MEDS: Cariprazine HCl 3 MG CAPSULE 6 MG PO (08:29)
[2023-02-12] MEDS: buPROPion HCl XL 300 MG TAB.ER.24H PO (08:29)
--- NOTE | 2023-02-12 09:22 | P.PNPSI_ITS ---
Subjective Subjective Date of Service: 02/12/23 Reason For Visit: mental health emergency Subjective Notes: Conditional Voluntary Interim History: The nursing staff reported the patient has been isolative, less verbal than usual blunted in her affect. She slept all night. The licensed social worker and occupational therapist interview her and she agreed to go to [facility]. They also review her mailed and apparently there were applications to several housing programs that she had not respond since she was here in the hospital.. On interview we realized that the flattening of affect is quite new so we decided to lowered Vraylar to 4.5. Mental Status Exam Mental Status Exam Patient Appearance: Appropriate Patient Orientation: Person and Situation Level of Consciousness: Awake and Appropriate Patient Behavior: Guarded and Passive Mood Description: Withdrawn Affect Description: Constricted Patient Cognition Impaired: Yes Ability to Follow Directions: Good Speech Pattern: Clear Hallucinations: None Delusions: Not Present Thought Process: Distracted and Slowed Thinking Thought Content: positive for [place] and positive for Poverty of Content Judgement: Poor Diagnostics Vital Signs (24Hr): Vital Signs - 24 hr 02/11/23 18:00 Temperature 97.2 F Pulse Rate 69 Respiratory Rate 16 Blood Pressure 107/61 Pulse Oximetry 97 Oxygen Delivery Method Room Air BMI result Body Mass Index 26.7 Labs 01/27/23 08:43 01/27/23 08:43 Medications Medications Current Medications Acetaminophen (Acetaminophen 325 Mg Tablet) 650 mg PO Q6H PRN PRN Reason: Headache/Pain Mild Scale (1-3) Last Admin: 02/11/23 04:08 Dose: 650 mg Al Hydroxide/Mg Hydroxide (Magnesium Hydrox/Alum Hydrox 30 Ml Oral.Susp) 30 ml PO Q6H PRN PRN Reason: Heartburn/Nausea Bupropion HCl (Bupropion Hcl Xl 300 Mg Tab.Er.24h) 300 mg PO DAILY [facility] Last Admin: 02/12/23 08:29 Dose: 300 mg Cariprazine (Cariprazine Hcl 3 Mg Capsule) 6 mg PO DAILY [facility] Last Admin: 02/12/23 08:29 Dose: 6 mg Divalproex Sodium (Divalproex Sodium Er 500 Mg Tab.Er.24h) 1,500 mg PO BEDTIME [facility] Last Admin: 02/11/23 20:02 Dose: 1,500 mg Donepezil HCl (Donepezil Hcl 10 Mg Tablet) 10 mg PO BEDTIME [facility] Last Admin: 02/11/23 20:03 Dose: 10 mg Hydroxyzine HCl (Hydroxyzine Hcl 25 Mg Tablet) 25 mg PO Q6H PRN PRN Reason: Anxiety Lactic Acid (Ammonium Lactate 12 % Lotion 226 Gm Bottle) 1 appl TOPICAL BID [facility]; Protocol Last Admin: 02/12/23 08:29 Dose: Not Given Magnesium Hydroxide (Milk Of Magnesia 30 Ml Oral.Susp) 30 ml PO DAILY PRN PRN Reason: Constipation Melatonin (Melatonin 3 Mg Tablet) 3 mg PO BEDTIME [facility] Last Admin: 02/11/23 20:03 Dose: 3 mg Trazodone HCl (Trazodone Hcl 50 Mg Tablet) 50 mg PO BEDTIME MRX1 PRN PRN Reason: Insomnia Last Admin: 02/10/23 19:54 Dose: 50 mg Allergies Allergies Allergy/AdvReac Type Severity Reaction Status Date / Time No Known Allergies Allergy Verified 12/13/22 17:46 Assessment & Plan Assessment & Plan (1) Bipolar disorder, most recent episode depressed: Status: Acute Code(s): F31.30 - Bipolar disorder, current episode depressed, mild or moderate severity, unspecified (2) Neurodegenerative cognitive impairment: Status: Acute Code(s): G31.9 - Degenerative disease of nervous system, unspecified (3) Acute UTI: Status: Acute Code(s): N39.0 - Urinary tract infection, site not specified (4) Delirium: Status: Acute Code(s): R41.0 - Disorientation, unspecified Plan The patient is an elderly female with a past history of bipolar disorder, dementia and now admitted for delirium due to UTI. She was residing at [facility] and she had being more confused, hypoactive and despondent in the last 4 days prior to the admission at the emergency room. On the ED, she was diagnosed with a UTI and started on antibiotics. Plan 1. Gather collateral information. 2. Continue with regular medications. 3. Continue with antibiotics. 4. Reassessment with results 5. CBC with differential, basic metabolic panel and UA for January 27. UA came still positive but blood work within normal limits. 6. On January 29 we are lowering Depakote 1500 mg a day and increase Vraylar up to 6 mg daily to target psychosis 7. On January 30 we started Aricept 5 mg p.o. q.h.s. 8. On February 12 we decided to lower regular to 4.5 mg p.o. daily since her affect is very flat. Reason for continued inpatient stay Substantial Risk for: inability to function, rapid decompensation and med/psych decompensation Time Spent With Patient Time: Total time managing care of this patient today __20__ minutes.
[2023-02-12 19:35] VITALS: BP 108/56; PULSE 73; RESP 16; TEMP 36.4; O2SAT 97
[2023-02-12] MEDS: Divalproex Sodium ER 500 MG TAB.ER.24H 1500 MG PO (20:13)
[2023-02-12] MEDS: Donepezil HCl 10 MG TABLET PO (20:13)
[2023-02-12] MEDS: Melatonin 3 MG TABLET PO (20:13)
[2023-02-13 08:00] VITALS: BP 128/77; PULSE 88; RESP 16; TEMP 36.3; O2SAT 96
[2023-02-13] MEDS: Cariprazine HCl 1.5 MG CAPSULE 4.5 MG PO (08:06)
[2023-02-13] MEDS: buPROPion HCl XL 300 MG TAB.ER.24H PO (08:06)
--- NOTE | 2023-02-13 09:22 | P.PNPSI_ITS ---
Subjective Subjective Date of Service: 02/13/23 Reason For Visit: mental health emergency Subjective Notes: Conditional Voluntary Interim History: Nursing staff reported the patient is alert oriented x4, brighter more engageable, eating well and sleeping well. The social science research assistant reported that even though that she is more functional still she has poor executive functioning and sent looks will visit her soon for placement. On interview the patient denies new symptoms, waiting for placement Mental Status Exam Mental Status Exam Patient Appearance: Appropriate Patient Orientation: Person and Situation Level of Consciousness: Awake and Appropriate Patient Behavior: Guarded and Passive Mood Description: Withdrawn Affect Description: Constricted Patient Cognition Impaired: Yes Ability to Follow Directions: Good Speech Pattern: Clear Hallucinations: None Delusions: Not Present Thought Process: Distracted and Evasive Thought Content: positive for [place] and positive for Circumstantial Judgement: Fair Diagnostics Vital Signs (24Hr): Vital Signs - 24 hr 02/12/23 19:35 02/13/23 08:00 Temperature 97.5 F 97.4 F Pulse Rate 73 88 Respiratory Rate 16 16 Blood Pressure 108/56 L 128/77 Pulse Oximetry 97 96 Oxygen Delivery Method Room Air Room Air BMI result Body Mass Index 26.7 Labs 01/27/23 08:43 01/27/23 08:43 Medications Medications Current Medications Acetaminophen (Acetaminophen 325 Mg Tablet) 650 mg PO Q6H PRN PRN Reason: Headache/Pain Mild Scale (1-3) Last Admin: 02/11/23 04:08 Dose: 650 mg Al Hydroxide/Mg Hydroxide (Magnesium Hydrox/Alum Hydrox 30 Ml Oral.Susp) 30 ml PO Q6H PRN PRN Reason: Heartburn/Nausea Bupropion HCl (Bupropion Hcl Xl 300 Mg Tab.Er.24h) 300 mg PO DAILY [facility] Last Admin: 02/13/23 08:06 Dose: 300 mg Cariprazine (Cariprazine Hcl 1.5 Mg Capsule) 4.5 mg PO DAILY [facility] Last Admin: 02/13/23 08:06 Dose: 4.5 mg Divalproex Sodium (Divalproex Sodium Er 500 Mg Tab.Er.24h) 1,500 mg PO BEDTIME [facility] Last Admin: 02/12/23 20:13 Dose: 1,500 mg Donepezil HCl (Donepezil Hcl 10 Mg Tablet) 10 mg PO BEDTIME [facility] Last Admin: 02/12/23 20:13 Dose: 10 mg Hydroxyzine HCl (Hydroxyzine Hcl 25 Mg Tablet) 25 mg PO Q6H PRN PRN Reason: Anxiety Lactic Acid (Ammonium Lactate 12 % Lotion 226 Gm Bottle) 1 appl TOPICAL BID [facility]; Protocol Last Admin: 02/13/23 08:07 Dose: Not Given Magnesium Hydroxide (Milk Of Magnesia 30 Ml Oral.Susp) 30 ml PO DAILY PRN PRN Reason: Constipation Melatonin (Melatonin 3 Mg Tablet) 3 mg PO BEDTIME [facility] Last Admin: 02/12/23 20:13 Dose: 3 mg Trazodone HCl (Trazodone Hcl 50 Mg Tablet) 50 mg PO BEDTIME MRX1 PRN PRN Reason: Insomnia Last Admin: 02/10/23 19:54 Dose: 50 mg Allergies Allergies Allergy/AdvReac Type Severity Reaction Status Date / Time No Known Allergies Allergy Verified 12/13/22 17:46 Assessment & Plan Assessment & Plan (1) Bipolar disorder, most recent episode depressed: Status: Acute Code(s): F31.30 - Bipolar disorder, current episode depressed, mild or moderate severity, unspecified (2) Neurodegenerative cognitive impairment: Status: Acute Code(s): G31.9 - Degenerative disease of nervous system, unspecified (3) Acute UTI: Status: Acute Code(s): N39.0 - Urinary tract infection, site not specified (4) Delirium: Status: Acute Code(s): R41.0 - Disorientation, unspecified Plan The patient is an elderly female with a past history of bipolar disorder, dementia and now admitted for delirium due to UTI. She was residing at [facility] and she had being more confused, hypoactive and despondent in the last 4 days prior to the admission at the emergency room. On the ED, she was diagnosed with a UTI and started on antibiotics. Plan 1. Gather collateral information. 2. Continue with regular medications. 3. Continue with antibiotics. 4. Reassessment with results 5. CBC with differential, basic metabolic panel and UA for January 27. UA came still positive but blood work within normal limits. 6. On January 29 we are lowering Depakote 1500 mg a day and increase Vraylar up to 6 mg daily to target psychosis 7. On January 30 we started Aricept 5 mg p.o. q.h.s. 8. On February 12 we decided to lower regular to 4.5 mg p.o. daily since her affect is very flat. Reason for continued inpatient stay Substantial Risk for: inability to function, rapid decompensation and med/psych decompensation Time Spent With Patient Time: Total time managing care of this patient today __20__ minutes.
[2023-02-13 18:00] VITALS: BP 130/70; PULSE 83; RESP 18; TEMP 36.8; O2SAT 97
[2023-02-13] MEDS: Melatonin 3 MG TABLET PO (20:31)
[2023-02-13] MEDS: Donepezil HCl 10 MG TABLET PO (20:31)
[2023-02-13] MEDS: Divalproex Sodium ER 500 MG TAB.ER.24H 1500 MG PO (20:31)
[2023-02-14 08:10] VITALS: BP 137/81; PULSE 77; RESP 16; TEMP 36.3; O2SAT 100
[2023-02-14] MEDS: Cariprazine HCl 1.5 MG CAPSULE 4.5 MG PO (08:58)
[2023-02-14] MEDS: buPROPion HCl XL 300 MG TAB.ER.24H PO (08:59)
[2023-02-14 18:00] VITALS: BP 123/72; PULSE 66; RESP 18; TEMP 36.3; O2SAT 95
[2023-02-14] MEDS: Melatonin 3 MG TABLET PO (20:31)
[2023-02-14] MEDS: Divalproex Sodium ER 500 MG TAB.ER.24H 1500 MG PO (20:31)
[2023-02-14] MEDS: Donepezil HCl 10 MG TABLET PO (20:31)
--- NOTE | 2023-02-14 21:10 | HO.PSYCHPN ---
Subjective Subjective Date of Service: 02/14/23 Reason For Visit: mental health emergency Interim History: Nursing staff reported the patient is alert oriented x4, brighter more engageable, eating well and sleeping well. On interview the patient is anxious; slow to respond; denies new symptoms, waiting for placement Medication Compliance: Yes Side effects from medications: No Attending Groups: Yes Review of Systems Medical Review of Systems: unchanged Review of Systems Review of Systems All other systems are reviewed and are negative Constitutional: Reports as per HPI and Reports no additional constitutional complaints Eyes: Reports as per HPI and Reports no additional eye complaints Reports system reviewed and no additional complaints, except as documented Cardiovascular: Reports as per HPI and Reports no additional cardiovascular complaints Respiratory: Reports as per HPI and Reports no additional respiratory complaints Gastrointestinal: Reports as per HPI and Reports no additional gastrointestinal complaints Genitourinary: Reports no additional female genitourinary complaints Musculoskeletal: Reports no additional musculoskeletal complaints Skin/Breast: Reports system reviewed and no additional complaints, except as docu Psychiatric: Reports no additional psychiatric complaints Endocrine: Reports no additional endocrine complaints Hematologic/Lymphatic: Reports no additional hematologic/lymphatic complaints Allergic/Immunologic: Reports no additional allergic/immunologic complaints Reports system reviewed and no additional complaints, except as documented and Reports Abnormal speech present Yes all other systems are reviewed and are negative Mental Status Exam Mental Status Exam Patient Appearance: Appropriate Patient Orientation: Person and Situation Level of Consciousness: Awake and Appropriate Patient Behavior: Guarded and Passive Mood Description: Withdrawn Affect Description: Constricted Patient Cognition Impaired: Yes Ability to Follow Directions: Good Speech Pattern: Clear Memory Description: Remote Impaired Judgement: Poor Diagnostics Vital Signs (24Hr): Vital Signs - 24 hr 02/14/23 08:10 Temperature 97.4 F Pulse Rate 77 Respiratory Rate 16 Blood Pressure 137/81 Pulse Oximetry 100 Oxygen Delivery Method Room Air BMI result Body Mass Index 26.7 Labs 01/27/23 08:43 01/27/23 08:43 Medications Medications Current Medications Acetaminophen (Acetaminophen 325 Mg Tablet) 650 mg PO Q6H PRN PRN Reason: Headache/Pain Mild Scale (1-3) Last Admin: 02/11/23 04:08 Dose: 650 mg Al Hydroxide/Mg Hydroxide (Magnesium Hydrox/Alum Hydrox 30 Ml Oral.Susp) 30 ml PO Q6H PRN PRN Reason: Heartburn/Nausea Bupropion HCl (Bupropion Hcl Xl 300 Mg Tab.Er.24h) 300 mg PO DAILY [facility] Last Admin: 02/14/23 08:59 Dose: 300 mg Cariprazine (Cariprazine Hcl 1.5 Mg Capsule) 4.5 mg PO DAILY [facility] Last Admin: 02/14/23 08:58 Dose: 4.5 mg Divalproex Sodium (Divalproex Sodium Er 500 Mg Tab.Er.24h) 1,500 mg PO BEDTIME [facility] Last Admin: 02/14/23 20:31 Dose: 1,500 mg Donepezil HCl (Donepezil Hcl 10 Mg Tablet) 10 mg PO BEDTIME [facility] Last Admin: 02/14/23 20:31 Dose: 10 mg Hydroxyzine HCl (Hydroxyzine Hcl 25 Mg Tablet) 25 mg PO Q6H PRN PRN Reason: Anxiety Lactic Acid (Ammonium Lactate 12 % Lotion 226 Gm Bottle) 1 appl TOPICAL BID [facility]; Protocol Last Admin: 02/14/23 20:31 Dose: Not Given Magnesium Hydroxide (Milk Of Magnesia 30 Ml Oral.Susp) 30 ml PO DAILY PRN PRN Reason: Constipation Melatonin (Melatonin 3 Mg Tablet) 3 mg PO BEDTIME [facility] Last Admin: 02/14/23 20:31 Dose: 3 mg Trazodone HCl (Trazodone Hcl 50 Mg Tablet) 50 mg PO BEDTIME MRX1 PRN PRN Reason: Insomnia Last Admin: 02/10/23 19:54 Dose: 50 mg Allergies Allergies Allergy/AdvReac Type Severity Reaction Status Date / Time No Known Allergies Allergy Verified 12/13/22 17:46 Assessment & Plan Assessment & Plan (1) Bipolar disorder, most recent episode depressed: Status: Acute Code(s): F31.30 - Bipolar disorder, current episode depressed, mild or moderate severity, unspecified (2) Neurodegenerative cognitive impairment: Status: Acute Code(s): G31.9 - Degenerative disease of nervous system, unspecified (3) Acute UTI: Status: Acute Code(s): N39.0 - Urinary tract infection, site not specified (4) Delirium: Status: Acute Code(s): R41.0 - Disorientation, unspecified Plan The patient is an elderly female with a past history of bipolar disorder, dementia and now admitted for delirium due to UTI. She was residing at [facility] and she had being more confused, hypoactive and despondent in the last 4 days prior to the admission at the emergency room. On the ED, she was diagnosed with a UTI and started on antibiotics. Plan 1. Gather collateral information. 2. Continue with regular medications. 3. Continue with antibiotics. 4. Reassessment with results 5. CBC with differential, basic metabolic panel and UA for January 27. UA came still positive but blood work within normal limits. 6. On January 29 we are lowering Depakote 1500 mg a day and increase Vraylar up to 6 mg daily to target psychosis 7. On January 30 we started Aricept 5 mg p.o. q.h.s. 8. On February 12 we decided to lower regular to 4.5 mg p.o. daily since her affect is very flat. 02/14/23 continue current treatment plan Patient educated on: medication risk/benefits and therapeutic strategies Informed Consent: does not understand and further education needed Reason for continued inpatient stay Substantial Risk for: harm to self, inability to function and rapid decompensation Time Spent With Patient Time: Total time managing care of this patient today ____ minutes.
[2023-02-15 06:00] VITALS: BP 106/65; PULSE 95; RESP 18; TEMP 36.3; O2SAT 94
[2023-02-15] MEDS: Cariprazine HCl 1.5 MG CAPSULE 4.5 MG PO (08:30)
[2023-02-15] MEDS: buPROPion HCl XL 300 MG TAB.ER.24H PO (08:31)
--- NOTE | 2023-02-15 11:03 | HO.PSYCHPN ---
Subjective Subjective Date of Service: 02/15/23 Reason For Visit: mental health emergency Interim History: Nursing staff reported the patient is alert oriented x4, brighter more engageable, eating well and sleeping well. On interview the patient is anxious; slow to respond; reports tremor that causes her distress- hard to pick a cup up, write, button. denies other new symptoms, waiting for placement Medication Compliance: Yes Side effects from medications: Yes (tremor from depakote?) Attending Groups: Yes Review of Systems Acute medical concerns: No Medical Review of Systems: unchanged Review of Systems Review of Systems All other systems are reviewed and are negative Constitutional: Reports as per HPI and Reports no additional constitutional complaints Eyes: Reports as per HPI and Reports no additional eye complaints Reports system reviewed and no additional complaints, except as documented Cardiovascular: Reports as per HPI and Reports no additional cardiovascular complaints Respiratory: Reports as per HPI and Reports no additional respiratory complaints Gastrointestinal: Reports as per HPI and Reports no additional gastrointestinal complaints Genitourinary: Reports no additional female genitourinary complaints Musculoskeletal: Reports no additional musculoskeletal complaints Skin/Breast: Reports system reviewed and no additional complaints, except as docu Psychiatric: Reports no additional psychiatric complaints Endocrine: Reports no additional endocrine complaints Hematologic/Lymphatic: Reports no additional hematologic/lymphatic complaints Allergic/Immunologic: Reports no additional allergic/immunologic complaints Reports system reviewed and no additional complaints, except as documented and Reports Abnormal speech present Yes all other systems are reviewed and are negative Mental Status Exam Mental Status Exam Patient Appearance: Appropriate Patient Orientation: Person and Situation Level of Consciousness: Awake and Appropriate Patient Behavior: Guarded and Passive Mood Description: Withdrawn Affect Description: Constricted Patient Cognition Impaired: Yes Ability to Follow Directions: Good Speech Pattern: Clear Memory Description: Remote Impaired Diagnostics Vital Signs (24Hr): Vital Signs - 24 hr 02/14/23 18:00 02/15/23 06:00 Temperature 97.3 F 97.3 F Pulse Rate 66 95 Respiratory Rate 18 18 Blood Pressure 123/72 106/65 Pulse Oximetry 95 94 Oxygen Delivery Method Room Air Room Air BMI result Body Mass Index 26.7 Labs 01/27/23 08:43 01/27/23 08:43 Medications Medications Current Medications Acetaminophen (Acetaminophen 325 Mg Tablet) 650 mg PO Q6H PRN PRN Reason: Headache/Pain Mild Scale (1-3) Last Admin: 02/11/23 04:08 Dose: 650 mg Al Hydroxide/Mg Hydroxide (Magnesium Hydrox/Alum Hydrox 30 Ml Oral.Susp) 30 ml PO Q6H PRN PRN Reason: Heartburn/Nausea Bupropion HCl (Bupropion Hcl Xl 300 Mg Tab.Er.24h) 300 mg PO DAILY [facility] Last Admin: 02/15/23 08:31 Dose: 300 mg Cariprazine (Cariprazine Hcl 1.5 Mg Capsule) 4.5 mg PO DAILY [facility] Last Admin: 02/15/23 08:30 Dose: 4.5 mg Divalproex Sodium (Divalproex Sodium Er 500 Mg Tab.Er.24h) 1,500 mg PO BEDTIME [facility] Last Admin: 02/14/23 20:31 Dose: 1,500 mg Donepezil HCl (Donepezil Hcl 10 Mg Tablet) 10 mg PO BEDTIME [facility] Last Admin: 02/14/23 20:31 Dose: 10 mg Hydroxyzine HCl (Hydroxyzine Hcl 25 Mg Tablet) 25 mg PO Q6H PRN PRN Reason: Anxiety Lactic Acid (Ammonium Lactate 12 % Lotion 226 Gm Bottle) 1 appl TOPICAL BID [facility]; Protocol Last Admin: 02/15/23 08:32 Dose: Not Given Magnesium Hydroxide (Milk Of Magnesia 30 Ml Oral.Susp) 30 ml PO DAILY PRN PRN Reason: Constipation Melatonin (Melatonin 3 Mg Tablet) 3 mg PO BEDTIME [facility] Last Admin: 02/14/23 20:31 Dose: 3 mg Trazodone HCl (Trazodone Hcl 50 Mg Tablet) 50 mg PO BEDTIME MRX1 PRN PRN Reason: Insomnia Last Admin: 02/10/23 19:54 Dose: 50 mg Allergies Allergies Allergy/AdvReac Type Severity Reaction Status Date / Time No Known Allergies Allergy Verified 12/13/22 17:46 Assessment & Plan Assessment & Plan (1) Bipolar disorder, most recent episode depressed: Status: Acute Code(s): F31.30 - Bipolar disorder, current episode depressed, mild or moderate severity, unspecified (2) Neurodegenerative cognitive impairment: Status: Acute Code(s): G31.9 - Degenerative disease of nervous system, unspecified (3) Acute UTI: Status: Acute Code(s): N39.0 - Urinary tract infection, site not specified (4) Delirium: Status: Acute Code(s): R41.0 - Disorientation, unspecified Plan The patient is an elderly female with a past history of bipolar disorder, dementia and now admitted for delirium due to UTI. She was residing at [facility] and she had being more confused, hypoactive and despondent in the last 4 days prior to the admission at the emergency room. On the ED, she was diagnosed with a UTI and started on antibiotics. Plan 1. Gather collateral information. 2. Continue with regular medications. 3. Continue with antibiotics. 4. Reassessment with results 5. CBC with differential, basic metabolic panel and UA for January 27. UA came still positive but blood work within normal limits. 6. On January 29 we are lowering Depakote 1500 mg a day and increase Vraylar up to 6 mg daily to target psychosis 7. On January 30 we started Aricept 5 mg p.o. q.h.s. 8. On February 12 we decided to lower regular to 4.5 mg p.o. daily since her affect is very flat. 02/14/23 continue current treatment plan 02/15/23 reduce depakote from 1500mg to 1250 mg daily-pt agreeable Patient educated on: diagnosis, medication risk/benefits and therapeutic strategies Informed Consent: understands and further education needed Reason for continued inpatient stay Substantial Risk for: harm to self, inability to function and rapid decompensation Time Spent With Patient Time: Total time managing care of this patient today ____ minutes.
[2023-02-15 19:35] VITALS: BP 124/64; PULSE 70; RESP 16; TEMP 36.8; O2SAT 96
[2023-02-15] MEDS: Donepezil HCl 10 MG TABLET PO (20:29)
[2023-02-15] MEDS: Divalproex Sodium ER 250 MG TAB.ER.24H 1250 MG PO (20:29)
[2023-02-15] MEDS: Melatonin 3 MG TABLET PO (20:29)
[2023-02-16 08:00] VITALS: BP 135/77; PULSE 80; RESP 16; TEMP 36.3; O2SAT 96
[2023-02-16] MEDS: Cariprazine HCl 1.5 MG CAPSULE 4.5 MG PO (10:17)
[2023-02-16] MEDS: buPROPion HCl XL 300 MG TAB.ER.24H PO (10:17)
--- NOTE | 2023-02-16 14:41 | P.PNPSI_ITS ---
Subjective Subjective Date of Service: 02/16/23 Reason For Visit: mental health emergency Subjective Notes: Conditional Voluntary Interim History: The nursing staff reported the patient had been with mild tremors and his Depakote was lower. He had been isolative withdrawn no changes in his mental status. The social research assistant reported that she will call [facility] for assessment for transfer. On interview the patient denies new symptoms, waiting for placement. Mental Status Exam Mental Status Exam Patient Appearance: Appropriate Patient Orientation: Person and Situation Level of Consciousness: Awake and Appropriate Patient Behavior: Guarded and Passive Mood Description: Withdrawn Affect Description: Constricted Patient Cognition Impaired: Yes Ability to Follow Directions: Good Speech Pattern: Clear Hallucinations: None Delusions: Not Present Thought Process: Distracted and Evasive Thought Content: positive for [place] and positive for Circumstantial Judgement: Fair Diagnostics Vital Signs (24Hr): Vital Signs - 24 hr 02/15/23 19:35 02/16/23 08:00 Temperature 98.2 F 97.4 F Pulse Rate 70 80 Respiratory Rate 16 16 Blood Pressure 124/64 135/77 Pulse Oximetry 96 96 Oxygen Delivery Method Room Air Room Air BMI result Body Mass Index 26.7 Labs 01/27/23 08:43 01/27/23 08:43 Medications Medications Current Medications Acetaminophen (Acetaminophen 325 Mg Tablet) 650 mg PO Q6H PRN PRN Reason: Headache/Pain Mild Scale (1-3) Last Admin: 02/11/23 04:08 Dose: 650 mg Al Hydroxide/Mg Hydroxide (Magnesium Hydrox/Alum Hydrox 30 Ml Oral.Susp) 30 ml PO Q6H PRN PRN Reason: Heartburn/Nausea Bupropion HCl (Bupropion Hcl Xl 300 Mg Tab.Er.24h) 300 mg PO DAILY [facility] Last Admin: 02/16/23 10:17 Dose: 300 mg Cariprazine (Cariprazine Hcl 1.5 Mg Capsule) 4.5 mg PO DAILY [facility] Last Admin: 02/16/23 10:17 Dose: 4.5 mg Divalproex Sodium (Divalproex Sodium Er 250 Mg Tab.Er.24h) 1,250 mg PO BEDTIME [facility] Last Admin: 02/15/23 20:29 Dose: 1,250 mg Donepezil HCl (Donepezil Hcl 10 Mg Tablet) 10 mg PO BEDTIME [facility] Last Admin: 02/15/23 20:29 Dose: 10 mg Hydroxyzine HCl (Hydroxyzine Hcl 25 Mg Tablet) 25 mg PO Q6H PRN PRN Reason: Anxiety Lactic Acid (Ammonium Lactate 12 % Lotion 226 Gm Bottle) 1 appl TOPICAL BID [facility]; Protocol Last Admin: 02/16/23 10:19 Dose: Not Given Magnesium Hydroxide (Milk Of Magnesia 30 Ml Oral.Susp) 30 ml PO DAILY PRN PRN Reason: Constipation Melatonin (Melatonin 3 Mg Tablet) 3 mg PO BEDTIME [facility] Last Admin: 02/15/23 20:29 Dose: 3 mg Trazodone HCl (Trazodone Hcl 50 Mg Tablet) 50 mg PO BEDTIME MRX1 PRN PRN Reason: Insomnia Last Admin: 02/10/23 19:54 Dose: 50 mg Allergies Allergies Allergy/AdvReac Type Severity Reaction Status Date / Time No Known Allergies Allergy Verified 12/13/22 17:46 Assessment & Plan Assessment & Plan (1) Bipolar disorder, most recent episode depressed: Status: Acute Code(s): F31.30 - Bipolar disorder, current episode depressed, mild or moderate severity, unspecified (2) Neurodegenerative cognitive impairment: Status: Acute Code(s): G31.9 - Degenerative disease of nervous system, unspecified (3) Acute UTI: Status: Acute Code(s): N39.0 - Urinary tract infection, site not specified (4) Delirium: Status: Acute Code(s): R41.0 - Disorientation, unspecified Plan The patient is an elderly female with a past history of bipolar disorder, dementia and now admitted for delirium due to UTI. She was residing at [facility] and she had being more confused, hypoactive and despondent in the last 4 days prior to the admission at the emergency room. On the ED, she was diagnosed with a UTI and started on antibiotics. Plan 1. Gather collateral information. 2. Continue with regular medications. 3. Continue with antibiotics. 4. Reassessment with results 5. CBC with differential, basic metabolic panel and UA for January 27. UA came still positive but blood work within normal limits. 6. On January 29 we are lowering Depakote 1500 mg a day and increase Vraylar up to 6 mg daily to target psychosis 7. On January 30 we started Aricept 5 mg p.o. q.h.s. 8. On February 12 we decided to lower regular to 4.5 mg p.o. daily since her affect is very flat. 9. On February 15 Depakote was lowered to 1250 mg p.o. daily Reason for continued inpatient stay Substantial Risk for: inability to function, rapid decompensation and med/psych decompensation Time Spent With Patient Time: Total time managing care of this patient today __20__ minutes.
[2023-02-16 18:00] VITALS: BP 113/66; PULSE 71; RESP 18; TEMP 36.3; O2SAT 97
[2023-02-16] MEDS: Melatonin 3 MG TABLET PO (20:47)
[2023-02-16] MEDS: Divalproex Sodium ER 250 MG TAB.ER.24H 1250 MG PO (20:47)
[2023-02-16] MEDS: Donepezil HCl 10 MG TABLET PO (20:47)
[2023-02-17 06:00] VITALS: BP 129/73; PULSE 76; RESP 16; TEMP 36.4; O2SAT 98
[2023-02-17] MEDS: Cariprazine HCl 1.5 MG CAPSULE 4.5 MG PO (09:39)
[2023-02-17] MEDS: buPROPion HCl XL 300 MG TAB.ER.24H PO (09:40)
--- NOTE | 2023-02-17 13:58 | P.PNPSI_ITS ---
Subjective Subjective Date of Service: 02/17/23 Reason For Visit: mental health emergency Subjective Notes: Conditional Voluntary Interim History: The nursing staff reported the patient showed a brighter affect she had been talkative cooperative, compliant with treatment The clinical social worker reported that they are going to called the rest home for assessment On interview the patient denies new symptoms, waiting for placement. Mental Status Exam Mental Status Exam Patient Appearance: Well Grooomed and Appropriate Patient Orientation: Person and Situation Level of Consciousness: Awake Patient Behavior: Cooperative Mood Description: Calm Affect Description: Constricted Patient Cognition Impaired: Yes Ability to Follow Directions: Good Speech Pattern: Clear Hallucinations: None Delusions: Not Present Thought Process: Linear Thought Content: positive for [place] and positive for Poverty of Content Judgement: Fair Diagnostics Vital Signs (24Hr): Vital Signs - 24 hr 02/16/23 18:00 02/17/23 06:00 Temperature 97.3 F 97.6 F Pulse Rate 71 76 Respiratory Rate 18 16 Blood Pressure 113/66 129/73 Pulse Oximetry 97 98 Oxygen Delivery Method Room Air Room Air BMI result Body Mass Index 26.7 Labs 01/27/23 08:43 01/27/23 08:43 Medications Medications Current Medications Acetaminophen (Acetaminophen 325 Mg Tablet) 650 mg PO Q6H PRN PRN Reason: Headache/Pain Mild Scale (1-3) Last Admin: 02/11/23 04:08 Dose: 650 mg Al Hydroxide/Mg Hydroxide (Magnesium Hydrox/Alum Hydrox 30 Ml Oral.Susp) 30 ml PO Q6H PRN PRN Reason: Heartburn/Nausea Bupropion HCl (Bupropion Hcl Xl 300 Mg Tab.Er.24h) 300 mg PO DAILY [facility] Last Admin: 02/17/23 09:40 Dose: 300 mg Cariprazine (Cariprazine Hcl 1.5 Mg Capsule) 4.5 mg PO DAILY [facility] Last Admin: 02/17/23 09:39 Dose: 4.5 mg Divalproex Sodium (Divalproex Sodium Er 250 Mg Tab.Er.24h) 1,250 mg PO BEDTIME [facility] Last Admin: 02/16/23 20:47 Dose: 1,250 mg Donepezil HCl (Donepezil Hcl 10 Mg Tablet) 10 mg PO BEDTIME [facility] Last Admin: 02/16/23 20:47 Dose: 10 mg Hydroxyzine HCl (Hydroxyzine Hcl 25 Mg Tablet) 25 mg PO Q6H PRN PRN Reason: Anxiety Lactic Acid (Ammonium Lactate 12 % Lotion 226 Gm Bottle) 1 appl TOPICAL BID [facility]; Protocol Last Admin: 02/17/23 09:40 Dose: Not Given Magnesium Hydroxide (Milk Of Magnesia 30 Ml Oral.Susp) 30 ml PO DAILY PRN PRN Reason: Constipation Melatonin (Melatonin 3 Mg Tablet) 3 mg PO BEDTIME [facility] Last Admin: 02/16/23 20:47 Dose: 3 mg Trazodone HCl (Trazodone Hcl 50 Mg Tablet) 50 mg PO BEDTIME MRX1 PRN PRN Reason: Insomnia Last Admin: 02/10/23 19:54 Dose: 50 mg Allergies Allergies Allergy/AdvReac Type Severity Reaction Status Date / Time No Known Allergies Allergy Verified 12/13/22 17:46 Assessment & Plan Assessment & Plan (1) Bipolar disorder, most recent episode depressed: Status: Acute Code(s): F31.30 - Bipolar disorder, current episode depressed, mild or moderate severity, unspecified (2) Neurodegenerative cognitive impairment: Status: Acute Code(s): G31.9 - Degenerative disease of nervous system, unspecified (3) Acute UTI: Status: Acute Code(s): N39.0 - Urinary tract infection, site not specified (4) Delirium: Status: Acute Code(s): R41.0 - Disorientation, unspecified Plan The patient is an elderly female with a past history of bipolar disorder, dementia and now admitted for delirium due to UTI. She was residing at [facility] and she had being more confused, hypoactive and despondent in the last 4 days prior to the admission at the emergency room. On the ED, she was diagnosed with a UTI and started on antibiotics. Plan 1. Gather collateral information. 2. Continue with regular medications. 3. Continue with antibiotics. 4. Reassessment with results 5. CBC with differential, basic metabolic panel and UA for January 27. UA came still positive but blood work within normal limits. 6. On January 29 we are lowering Depakote 1500 mg a day and increase Vraylar up to 6 mg daily to target psychosis 7. On January 30 we started Aricept 5 mg p.o. q.h.s. 8. On February 12 we decided to lower regular to 4.5 mg p.o. daily since her affect is very flat. 9. On February 15 Depakote was lowered to 1250 mg p.o. daily Reason for continued inpatient stay Substantial Risk for: inability to function, rapid decompensation and med/psych decompensation Time Spent With Patient Time: Total time managing care of this patient today __20__ minutes.
[2023-02-17 18:00] VITALS: BP 129/90; PULSE 75; RESP 18; TEMP 36.6; O2SAT 97
[2023-02-17] MEDS: Donepezil HCl 10 MG TABLET PO (20:18)
[2023-02-17] MEDS: Divalproex Sodium ER 250 MG TAB.ER.24H 1250 MG PO (20:18)
[2023-02-17] MEDS: Melatonin 3 MG TABLET PO (20:18)
[2023-02-18 06:00] VITALS: BP 113/64; PULSE 76; RESP 18; TEMP 36.1; O2SAT 98
--- NOTE | 2023-02-18 08:07 | HO.PSYCHPN ---
Subjective Subjective Date of Service: 02/18/23 Reason For Visit: mental health emergency Subjective Notes: Conditional Voluntary Interim History: The nursing staff reported the patient had been compliant with treatment, the staff has noticed that her affect is more brighter since Depakote and brighter were lowered. On interview the patient denies new symptoms, today she is going to be assessed by the staff of the [facility] home for discharge. Waiting for placement, no new symptoms. Mental Status Exam Mental Status Exam Patient Appearance: Appropriate Patient Orientation: Person and Situation Level of Consciousness: Awake and Appropriate Patient Behavior: Guarded and Passive Mood Description: Withdrawn Affect Description: Constricted Patient Cognition Impaired: Yes Ability to Follow Directions: Good Speech Pattern: Clear Hallucinations: None Delusions: Not Present Thought Process: Distracted and Evasive Thought Content: positive for [place] and positive for Poverty of Content Judgement: Fair Diagnostics Vital Signs (24Hr): Vital Signs - 24 hr 02/17/23 18:00 Temperature 97.8 F Pulse Rate 75 Respiratory Rate 18 Blood Pressure 129/90 H Pulse Oximetry 97 Oxygen Delivery Method Room Air BMI result Body Mass Index 26.7 Labs 01/27/23 08:43 01/27/23 08:43 Medications Medications Current Medications Acetaminophen (Acetaminophen 325 Mg Tablet) 650 mg PO Q6H PRN PRN Reason: Headache/Pain Mild Scale (1-3) Last Admin: 02/11/23 04:08 Dose: 650 mg Al Hydroxide/Mg Hydroxide (Magnesium Hydrox/Alum Hydrox 30 Ml Oral.Susp) 30 ml PO Q6H PRN PRN Reason: Heartburn/Nausea Bupropion HCl (Bupropion Hcl Xl 300 Mg Tab.Er.24h) 300 mg PO DAILY [facility] Last Admin: 02/17/23 09:40 Dose: 300 mg Cariprazine (Cariprazine Hcl 1.5 Mg Capsule) 4.5 mg PO DAILY [facility] Last Admin: 02/17/23 09:39 Dose: 4.5 mg Divalproex Sodium (Divalproex Sodium Er 250 Mg Tab.Er.24h) 1,250 mg PO BEDTIME [facility] Last Admin: 02/17/23 20:18 Dose: 1,250 mg Donepezil HCl (Donepezil Hcl 10 Mg Tablet) 10 mg PO BEDTIME [facility] Last Admin: 02/17/23 20:18 Dose: 10 mg Hydroxyzine HCl (Hydroxyzine Hcl 25 Mg Tablet) 25 mg PO Q6H PRN PRN Reason: Anxiety Lactic Acid (Ammonium Lactate 12 % Lotion 226 Gm Bottle) 1 appl TOPICAL BID [facility]; Protocol Last Admin: 02/17/23 20:18 Dose: Not Given Magnesium Hydroxide (Milk Of Magnesia 30 Ml Oral.Susp) 30 ml PO DAILY PRN PRN Reason: Constipation Melatonin (Melatonin 3 Mg Tablet) 3 mg PO BEDTIME [facility] Last Admin: 02/17/23 20:18 Dose: 3 mg Trazodone HCl (Trazodone Hcl 50 Mg Tablet) 50 mg PO BEDTIME MRX1 PRN PRN Reason: Insomnia Last Admin: 02/10/23 19:54 Dose: 50 mg Allergies Allergies Allergy/AdvReac Type Severity Reaction Status Date / Time No Known Allergies Allergy Verified 12/13/22 17:46 Assessment & Plan Assessment & Plan (1) Bipolar disorder, most recent episode depressed: Status: Acute Code(s): F31.30 - Bipolar disorder, current episode depressed, mild or moderate severity, unspecified (2) Neurodegenerative cognitive impairment: Status: Acute Code(s): G31.9 - Degenerative disease of nervous system, unspecified (3) Acute UTI: Status: Acute Code(s): N39.0 - Urinary tract infection, site not specified (4) Delirium: Status: Acute Code(s): R41.0 - Disorientation, unspecified Plan The patient is an elderly female with a past history of bipolar disorder, dementia and now admitted for delirium due to UTI. She was residing at [facility] and she had being more confused, hypoactive and despondent in the last 4 days prior to the admission at the emergency room. On the ED, she was diagnosed with a UTI and started on antibiotics. Plan 1. Gather collateral information. 2. Continue with regular medications. 3. Continue with antibiotics. 4. Reassessment with results 5. CBC with differential, basic metabolic panel and UA for January 27. UA came still positive but blood work within normal limits. 6. On January 29 we are lowering Depakote 1500 mg a day and increase Vraylar up to 6 mg daily to target psychosis 7. On January 30 we started Aricept 5 mg p.o. q.h.s. 8. On February 12 we decided to lower regular to 4.5 mg p.o. daily since her affect is very flat. 9. On February 15 Depakote was lowered to 1250 mg p.o. daily Reason for continued inpatient stay Substantial Risk for: inability to function, rapid decompensation and med/psych decompensation Time Spent With Patient Time: Total time managing care of this patient today __20__ minutes.
[2023-02-18] MEDS: buPROPion HCl XL 300 MG TAB.ER.24H PO (08:30)
[2023-02-18] MEDS: Cariprazine HCl 1.5 MG CAPSULE 4.5 MG PO (08:30)
[2023-02-18 19:50] VITALS: BP 141/66; PULSE 73; RESP 16; TEMP 35.9; O2SAT 98
[2023-02-18] MEDS: Melatonin 3 MG TABLET PO (20:06)
[2023-02-18] MEDS: Divalproex Sodium ER 250 MG TAB.ER.24H 1250 MG PO (20:06)
[2023-02-18] MEDS: Donepezil HCl 10 MG TABLET PO (20:06)
[2023-02-19 07:00] VITALS: BMI 26.2
[2023-02-19 08:15] VITALS: BP 137/74; PULSE 82; RESP 18; TEMP 36.4; O2SAT 98
[2023-02-19] MEDS: buPROPion HCl XL 300 MG TAB.ER.24H PO (08:42)
[2023-02-19] MEDS: Cariprazine HCl 1.5 MG CAPSULE 4.5 MG PO (08:42)
--- NOTE | 2023-02-19 15:06 | P.PNPSI_ITS ---
Subjective Subjective Date of Service: 02/19/23 Reason For Visit: mental health emergency Subjective Notes: Conditional Voluntary Interim History: Nursing staff reported the patient is much brighter, compliant pleasant with staff. Today we are going to have a visit of the staff of the [facility] home for discharge. On interview the patient denies new symptoms, waiting for placement. Mental Status Exam Mental Status Exam Patient Appearance: Appropriate Patient Orientation: Person and Situation Level of Consciousness: Awake and Appropriate Patient Behavior: Guarded and Passive Mood Description: Calm Affect Description: Constricted Patient Cognition Impaired: Yes Ability to Follow Directions: Good Speech Pattern: Clear Hallucinations: None Delusions: Not Present Thought Process: Linear Thought Content: positive for Circumstantial Judgement: Fair Diagnostics Vital Signs (24Hr): Vital Signs - 24 hr 02/18/23 19:50 02/19/23 08:15 Temperature 96.6 F L 97.5 F Pulse Rate 73 82 Respiratory Rate 16 18 Blood Pressure 141/66 H 137/74 Pulse Oximetry 98 98 Oxygen Delivery Method Room Air Room Air BMI result Body Mass Index 26.2 Labs 01/27/23 08:43 01/27/23 08:43 Medications Medications Current Medications Acetaminophen (Acetaminophen 325 Mg Tablet) 650 mg PO Q6H PRN PRN Reason: Headache/Pain Mild Scale (1-3) Last Admin: 02/11/23 04:08 Dose: 650 mg Al Hydroxide/Mg Hydroxide (Magnesium Hydrox/Alum Hydrox 30 Ml Oral.Susp) 30 ml PO Q6H PRN PRN Reason: Heartburn/Nausea Bupropion HCl (Bupropion Hcl Xl 300 Mg Tab.Er.24h) 300 mg PO DAILY [facility] Last Admin: 02/19/23 08:42 Dose: 300 mg Cariprazine (Cariprazine Hcl 1.5 Mg Capsule) 4.5 mg PO DAILY [facility] Last Admin: 02/19/23 08:42 Dose: 4.5 mg Divalproex Sodium (Divalproex Sodium Er 250 Mg Tab.Er.24h) 1,250 mg PO BEDTIME [facility] Last Admin: 02/18/23 20:06 Dose: 1,250 mg Donepezil HCl (Donepezil Hcl 10 Mg Tablet) 10 mg PO BEDTIME [facility] Last Admin: 02/18/23 20:06 Dose: 10 mg Hydroxyzine HCl (Hydroxyzine Hcl 25 Mg Tablet) 25 mg PO Q6H PRN PRN Reason: Anxiety Lactic Acid (Ammonium Lactate 12 % Lotion 226 Gm Bottle) 1 appl TOPICAL BID [facility]; Protocol Last Admin: 02/19/23 08:43 Dose: Not Given Magnesium Hydroxide (Milk Of Magnesia 30 Ml Oral.Susp) 30 ml PO DAILY PRN PRN Reason: Constipation Melatonin (Melatonin 3 Mg Tablet) 3 mg PO BEDTIME [facility] Last Admin: 02/18/23 20:06 Dose: 3 mg Trazodone HCl (Trazodone Hcl 50 Mg Tablet) 50 mg PO BEDTIME MRX1 PRN PRN Reason: Insomnia Last Admin: 02/10/23 19:54 Dose: 50 mg Allergies Allergies Allergy/AdvReac Type Severity Reaction Status Date / Time No Known Allergies Allergy Verified 12/13/22 17:46 Assessment & Plan Assessment & Plan (1) Bipolar disorder, most recent episode depressed: Status: Acute Code(s): F31.30 - Bipolar disorder, current episode depressed, mild or moderate severity, unspecified (2) Neurodegenerative cognitive impairment: Status: Acute Code(s): G31.9 - Degenerative disease of nervous system, unspecified (3) Acute UTI: Status: Acute Code(s): N39.0 - Urinary tract infection, site not specified (4) Delirium: Status: Acute Code(s): R41.0 - Disorientation, unspecified Plan The patient is an elderly female with a past history of bipolar disorder, dementia and now admitted for delirium due to UTI. She was residing at [facility] and she had being more confused, hypoactive and despondent in the last 4 days prior to the admission at the emergency room. On the ED, she was diagnosed with a UTI and started on antibiotics. Plan 1. Gather collateral information. 2. Continue with regular medications. 3. Continue with antibiotics. 4. Reassessment with results 5. CBC with differential, basic metabolic panel and UA for January 27. UA came still positive but blood work within normal limits. 6. On January 29 we are lowering Depakote 1500 mg a day and increase Vraylar up to 6 mg daily to target psychosis 7. On January 30 we started Aricept 5 mg p.o. q.h.s. 8. On February 12 we decided to lower regular to 4.5 mg p.o. daily since her affect is very flat. 9. On February 15 Depakote was lowered to 1250 mg p.o. daily Reason for continued inpatient stay Substantial Risk for: inability to function, rapid decompensation and med/psych decompensation Time Spent With Patient Time: Total time managing care of this patient today __20__ minutes.
[2023-02-19 20:20] VITALS: BP 108/68; PULSE 76; RESP 18; TEMP 36.8; O2SAT 97
[2023-02-19] MEDS: Donepezil HCl 10 MG TABLET PO (20:37)
[2023-02-19] MEDS: Divalproex Sodium ER 250 MG TAB.ER.24H 1250 MG PO (20:37)
[2023-02-19] MEDS: Melatonin 3 MG TABLET PO (20:37)
[2023-02-20 07:40] VITALS: BP 119/66; PULSE 67; RESP 18; TEMP 36.3; O2SAT 98
[2023-02-20] MEDS: Cariprazine HCl 1.5 MG CAPSULE 4.5 MG PO (08:27)
[2023-02-20] MEDS: buPROPion HCl XL 300 MG TAB.ER.24H PO (08:27)
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
[2023-02-20 18:00] VITALS: BP 130/72; PULSE 74; RESP 16; TEMP 36.8; O2SAT 96
[2023-02-20] MEDS: Donepezil HCl 10 MG TABLET PO (20:51)
[2023-02-20] MEDS: Divalproex Sodium ER 250 MG TAB.ER.24H 1250 MG PO (20:51)
[2023-02-20] MEDS: Melatonin 3 MG TABLET PO (20:51)
[2023-02-21 06:00] VITALS: BP 135/83; PULSE 86; RESP 16; TEMP 36.6; O2SAT 98
[2023-02-21] MEDS: Cariprazine HCl 1.5 MG CAPSULE 4.5 MG PO (08:46)
[2023-02-21] MEDS: buPROPion HCl XL 300 MG TAB.ER.24H PO (08:46)
[2023-02-21 19:35] VITALS: BP 149/74; PULSE 77; RESP 18; TEMP 36.3; O2SAT 99
[2023-02-21] MEDS: Divalproex Sodium ER 250 MG TAB.ER.24H 1250 MG PO (20:43)
[2023-02-21] MEDS: Donepezil HCl 10 MG TABLET PO (20:43)
[2023-02-21] MEDS: Melatonin 3 MG TABLET PO (20:43)
--- NOTE | 2023-02-22 00:19 | P.PNPSI_ITS ---
Subjective Subjective Date of Service: 02/21/23 Reason For Visit: mental health emergency Subjective Notes: Conditional Voluntary Interim History: Patient seen in the milieu not overly distressed pleasant and social on the unit Mental Status Exam Mental Status Exam Patient Appearance: Well Grooomed Patient Orientation: Person and Situation Level of Consciousness: Awake and Appropriate Patient Behavior: Cooperative Mood Description: Withdrawn Affect Description: Constricted Patient Cognition Impaired: Yes Ability to Follow Directions: Good Speech Pattern: Clear Hallucinations: None Delusions: Not Present Thought Process: Distracted and Linear Thought Content: positive for [place] and positive for Poverty of Content Judgement: Fair Diagnostics Vital Signs (24Hr): Vital Signs - 24 hr 02/21/23 06:00 02/21/23 19:35 Temperature 97.8 F 97.3 F Pulse Rate 86 77 Respiratory Rate 16 18 Blood Pressure 135/83 149/74 H Pulse Oximetry 98 99 Oxygen Delivery Method Room Air Room Air BMI result Body Mass Index 26.2 Labs 01/27/23 08:43 01/27/23 08:43 Medications Medications Current Medications Acetaminophen (Acetaminophen 325 Mg Tablet) 650 mg PO Q6H PRN PRN Reason: Headache/Pain Mild Scale (1-3) Last Admin: 02/11/23 04:08 Dose: 650 mg Al Hydroxide/Mg Hydroxide (Magnesium Hydrox/Alum Hydrox 30 Ml Oral.Susp) 30 ml PO Q6H PRN PRN Reason: Heartburn/Nausea Bupropion HCl (Bupropion Hcl Xl 300 Mg Tab.Er.24h) 300 mg PO DAILY [facility] Last Admin: 02/21/23 08:46 Dose: 300 mg Cariprazine (Cariprazine Hcl 1.5 Mg Capsule) 4.5 mg PO DAILY [facility] Last Admin: 02/21/23 08:46 Dose: 4.5 mg Divalproex Sodium (Divalproex Sodium Er 250 Mg Tab.Er.24h) 1,250 mg PO BEDTIME [facility] Last Admin: 02/21/23 20:43 Dose: 1,250 mg Donepezil HCl (Donepezil Hcl 10 Mg Tablet) 10 mg PO BEDTIME [facility] Last Admin: 02/21/23 20:43 Dose: 10 mg Hydroxyzine HCl (Hydroxyzine Hcl 25 Mg Tablet) 25 mg PO Q6H PRN PRN Reason: Anxiety Lactic Acid (Ammonium Lactate 12 % Lotion 226 Gm Bottle) 1 appl TOPICAL BID [facility]; Protocol Last Admin: 02/21/23 20:45 Dose: Not Given Magnesium Hydroxide (Milk Of Magnesia 30 Ml Oral.Susp) 30 ml PO DAILY PRN PRN Reason: Constipation Melatonin (Melatonin 3 Mg Tablet) 3 mg PO BEDTIME [facility] Last Admin: 02/21/23 20:43 Dose: 3 mg Trazodone HCl (Trazodone Hcl 50 Mg Tablet) 50 mg PO BEDTIME MRX1 PRN PRN Reason: Insomnia Last Admin: 02/10/23 19:54 Dose: 50 mg Allergies Allergies Allergy/AdvReac Type Severity Reaction Status Date / Time No Known Allergies Allergy Verified 12/13/22 17:46 Assessment & Plan Assessment & Plan (1) Bipolar disorder, most recent episode depressed: Status: Acute Code(s): F31.30 - Bipolar disorder, current episode depressed, mild or moderate severity, unspecified (2) Neurodegenerative cognitive impairment: Status: Acute Code(s): G31.9 - Degenerative disease of nervous system, unspecified (3) Acute UTI: Status: Acute Code(s): N39.0 - Urinary tract infection, site not specified (4) Delirium: Status: Acute Code(s): R41.0 - Disorientation, unspecified Plan The patient is an elderly female with a past history of bipolar disorder, dementia and now admitted for delirium due to UTI. She was residing at [facility] and she had being more confused, hypoactive and despondent in the last 4 days prior to the admission at the emergency room. On the ED, she was diagnosed with a UTI and started on antibiotics. Plan 1. Gather collateral information. 2. Continue with regular medications. 3. Continue with antibiotics. 4. Reassessment with results 5. CBC with differential, basic metabolic panel and UA for January 27. UA came still positive but blood work within normal limits. 6. On January 29 we are lowering Depakote 1500 mg a day and increase Vraylar up to 6 mg daily to target psychosis 7. On January 30 we started Aricept 5 mg p.o. q.h.s. 8. On February 12 we decided to lower regular to 4.5 mg p.o. daily since her affect is very flat. 9. On February 15 Depakote was lowered to 1250 mg p.o. daily 02/21/2023 Continue plan of care Reason for continued inpatient stay Substantial Risk for: inability to function and rapid decompensation Time Spent With Patient Time: Total time managing care of this patient today ____ minutes.
[2023-02-22 08:20] VITALS: BP 134/64; PULSE 77; RESP 16; TEMP 36.5; O2SAT 97
[2023-02-22] MEDS: Cariprazine HCl 1.5 MG CAPSULE 4.5 MG PO (08:46)
[2023-02-22] MEDS: buPROPion HCl XL 300 MG TAB.ER.24H PO (08:47)
[2023-02-22 19:40] VITALS: BP 133/72; PULSE 72; RESP 16; TEMP 36.2; O2SAT 99
[2023-02-22] MEDS: Donepezil HCl 10 MG TABLET PO (20:21)
[2023-02-22] MEDS: Divalproex Sodium ER 250 MG TAB.ER.24H 1250 MG PO (20:21)
[2023-02-22] MEDS: Melatonin 3 MG TABLET PO (20:21)
[2023-02-23 07:50] VITALS: BP 133/65; PULSE 72; RESP 18; TEMP 36.1; O2SAT 100
[2023-02-23] MEDS: buPROPion HCl XL 300 MG TAB.ER.24H PO (08:26)
[2023-02-23] MEDS: Cariprazine HCl 1.5 MG CAPSULE 4.5 MG PO (08:26)
[2023-02-23] MEDS: Acetaminophen 325 MG TABLET 650 MG PO (08:32)
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
[2023-02-23 18:00] VITALS: BP 125/65; PULSE 75; RESP 18; TEMP 36; O2SAT 94
[2023-02-23] MEDS: Divalproex Sodium ER 250 MG TAB.ER.24H 1250 MG PO (20:15)
[2023-02-23] MEDS: Donepezil HCl 10 MG TABLET PO (20:15)
[2023-02-23] MEDS: Melatonin 3 MG TABLET PO (20:15)
[2023-02-24 06:00] VITALS: BP 129/72; PULSE 71; RESP 18; TEMP 36.6; O2SAT 98
[2023-02-24] MEDS: buPROPion HCl XL 300 MG TAB.ER.24H PO (08:46)
[2023-02-24] MEDS: Cariprazine HCl 1.5 MG CAPSULE 4.5 MG PO (08:46)
[2023-02-24] MEDS: Acetaminophen 325 MG TABLET 650 MG PO (08:56)
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
[2023-02-24 18:00] VITALS: BP 139/66; PULSE 71; RESP 17; TEMP 36.6; O2SAT 99
[2023-02-24] MEDS: traZODone HCL 50 MG TABLET PO (20:33)
[2023-02-24] MEDS: Divalproex Sodium ER 250 MG TAB.ER.24H 1250 MG PO (20:33)
[2023-02-24] MEDS: Melatonin 3 MG TABLET PO (20:33)
[2023-02-24] MEDS: Donepezil HCl 10 MG TABLET PO (20:33)
[2023-02-25 06:00] VITALS: BP 110/69; PULSE 74; RESP 16; TEMP 36.2; O2SAT 98
[2023-02-25] MEDS: Acetaminophen 325 MG TABLET 650 MG PO (08:25)
[2023-02-25] MEDS: buPROPion HCl XL 300 MG TAB.ER.24H PO (08:25)
[2023-02-25] MEDS: Cariprazine HCl 1.5 MG CAPSULE 4.5 MG PO (08:25)
[2023-02-25 18:00] VITALS: BP 119/64; PULSE 83; RESP 16; TEMP 36.4; O2SAT 100
[2023-02-25] MEDS: Divalproex Sodium ER 250 MG TAB.ER.24H 1250 MG PO (20:38)
[2023-02-25] MEDS: Melatonin 3 MG TABLET PO (20:39)
[2023-02-25] MEDS: Donepezil HCl 10 MG TABLET PO (20:40)
[2023-02-26 06:00] VITALS: BP 111/65; PULSE 69; RESP 16; TEMP 36.6; O2SAT 97
[2023-02-26 07:00] VITALS: BMI 27.7
[2023-02-26] MEDS: Cariprazine HCl 1.5 MG CAPSULE 4.5 MG PO (09:02)
[2023-02-26] MEDS: Acetaminophen 325 MG TABLET 650 MG PO ×2 (09:02→20:18)
[2023-02-26] MEDS: buPROPion HCl XL 300 MG TAB.ER.24H PO (09:02)
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
[2023-02-26 18:00] VITALS: BP 124/65; PULSE 81; RESP 16; TEMP 35.8; O2SAT 99
[2023-02-26] MEDS: Divalproex Sodium ER 250 MG TAB.ER.24H 1250 MG PO (20:18)
[2023-02-26] MEDS: Donepezil HCl 10 MG TABLET PO (20:21)
[2023-02-26] MEDS: Melatonin 3 MG TABLET PO (20:21)
[2023-02-27 07:52] VITALS: BP 152/78; PULSE 77; RESP 16; TEMP 36.2; O2SAT 100
[2023-02-27] MEDS: buPROPion HCl XL 300 MG TAB.ER.24H PO (07:53)
[2023-02-27] MEDS: Cariprazine HCl 1.5 MG CAPSULE 4.5 MG PO (07:53)
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
[2023-02-27] MEDS: Acetaminophen 325 MG TABLET 650 MG PO (11:28)
== END 2023-02-27 12:58 | disposition home or self-care (01) | DRG 885 ==
LOC: HO.ED 17:09 → HO.PGERI 01-22 18:38
PROVIDERS: Emergency Medicine; Admitting Provider Psychiatry & Neurology Psychiatry; Emergency Provider Emergency Medicine; PCP Internal Medicine; Visit Provider Psychiatry & Neurology Psychiatry
DX: F31.30 Bipolar disorder, current episode depressed, mild or moderate severity, unspecified (principal); N39.0 Urinary tract infection, site not specified; F05 Delirium due to known physiological condition; Z59.01 Sheltered homelessness; G25.1 Drug-induced tremor; T42.6X5A Adverse effect of other antiepileptic and sedative-hypnotic drugs, initial encounter; Z75.1 Person awaiting admission to adequate facility elsewhere; F03.90 Unspecified dementia, unspecified severity, without behavioral disturbance, psychotic disturbance, mood disturbance, and anxiety; Z20.822 Contact with and (suspected) exposure to COVID-19; Z87.891 Personal history of nicotine dependence; Z79.899 Other long term (current) drug therapy
CPT/HCPCS: 36415; 80048; 80076; 80164; 80307; 81001; 83690; 84443; 84484; 85025; 87086; 87635; 93005; 99285; S9485

== ENCOUNTER → 2023-01-22 18:34 | Outpatient (BNV) | payer MEDICARE, SELFPAY | PROVIDERS: Admitting Provider Psychiatry & Neurology Psychiatry; Emergency Provider Emergency Medicine; PCP Internal Medicine; Visit Provider Psychiatry & Neurology Psychiatry | DX: F31.32 Bipolar disorder, current episode depressed, moderate (principal); G31.9 Degenerative disease of nervous system, unspecified; N39.0 Urinary tract infection, site not specified; R41.0 Disorientation, unspecified | CPT/HCPCS: 99231 ==

== ENCOUNTER → 2023-01-22 18:34 | Outpatient (BNV) | payer MEDICARE, SELFPAY | PROVIDERS: Admitting Provider Psychiatry & Neurology Psychiatry; Emergency Provider Emergency Medicine; PCP Internal Medicine; Visit Provider Psychiatry & Neurology Psychiatry | DX: F31.30 Bipolar disorder, current episode depressed, mild or moderate severity, unspecified (principal); G31.9 Degenerative disease of nervous system, unspecified; N39.0 Urinary tract infection, site not specified; R41.0 Disorientation, unspecified | CPT/HCPCS: 90792; 99231; 99232; 99238 ==

== ENCOUNTER 2023-03-05 13:23 | Outpatient (REF) | payer MEDICARE, SELFPAY ==
[2023-03-05 14:04] LABS: Appearance Urine Clear; Color Urine Yellow; Glucose Urine UA Negative (Negative); Leukocyte Esterase Urine Small (1+) (Negative); Nitrite Urine Negative (Negative); PH 6.5 (5.0-9.0); Specific Gravity - Urine 1.015 (1.005-1.025); UMIC TRIGGER UA YES; Urine Blood Negative (Negative); Urine Ketones Negative (Negative); Urine Protein Negative (Neg-Trace)
[2023-03-05 14:10] LABS: Bacteria Urine None Seen (None Seen); Hyaline Casts Urine 0-2 /LPF (0-2); RBC Urine 0-2 /HPF (0-2)
== END 2023-03-05 13:24 | disposition home or self-care (01) ==
LOC: HO.LNP 13:23
PROVIDERS: Visit Provider Internal Medicine
DX: N30.00 Acute cystitis without hematuria (principal)
CPT/HCPCS: 81001; 87086

== ENCOUNTER 2023-03-28 07:34 | Outpatient (REF) | payer MEDICARE, SELFPAY | END 2023-03-28 07:35 | disposition home or self-care (01) | LOC: HO.MAMMO 07:34 | PROVIDERS: PCP Internal Medicine; Visit Provider Internal Medicine | DX: Z12.31 Encounter for screening mammogram for malignant neoplasm of breast (principal) | CPT/HCPCS: 77063; 77067 ==

== ENCOUNTER → 2023-03-28 07:45 | Outpatient (BNV) | payer MEDICARE, SELFPAY | PROVIDERS: PCP Internal Medicine; Visit Provider Radiology Diagnostic Radiology | DX: Z12.31 Encounter for screening mammogram for malignant neoplasm of breast (principal) | CPT/HCPCS: 77063; 77067 ==

== ENCOUNTER 2023-06-10 15:24 | Inpatient (IN) | payer MEDICARE, SELFPAY ==
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
[2023-06-10 16:06] VITALS: BP 136/92; PULSE 108; RESP 18; TEMP 36.4; O2SAT 96; BMI 24.6
--- NOTE | 2023-06-10 16:42 | ECG_ITS ---
Test Reason : QT INTERVAL Blood Pressure : / mmHG Vent. Rate : 089 BPM Atrial Rate : 089 BPM P-R Int : 158 ms QRS Dur : 094 ms QT Int : 378 ms P-R-T Axes : 068 -20 044 degrees QTc Int : 459 ms Normal sinus rhythm Biatrial enlargement Incomplete right bundle branch block Abnormal ECG When compared with ECG of 21-JAN-2023 16:29, No significant change was found Referred By: Naomi Daniels Electronically Signed By:MARLENE DONALDSON
[2023-06-10 17:00] LABS: MANUAL DIFF FLAG NO
[2023-06-10 17:01] LABS: Basophils Percent Auto 0.3 % (0-2); Eosinophils Percent Auto 0.2 % (0-4); Hematocrit 43.3 % (37.0-47.0); Hemoglobin 14.5 g/dl (12.0-16.0); Imm Gran Abs Auto 0.03 X10*3/uL (0.00-0.03); Imm Gran Pct Auto 0.3 % (0.0-0.4); Lymphocytes Absolute Auto 1.9 X10*3/uL (1.2-4.9); Mean Corpuscular HGB Conc 33.5 g/dl (31.0-35.0); Mean Corpuscular Volume 89.5 fL (80.0-98.0); Mean Platelet Volume 9.2 fL (9.4-12.3); Monocytes Absolute Auto 0.6 X10*3/uL (0.1-1.2); Monocytes Percent Auto 6.3 % (2-11); Neutrophils Percent Auto 72.9 % (45-73); Platelet Count 368 X10*3/uL (160-400); Red Blood Count 4.84 X10*6/uL (4.20-5.50); Red Cell Distribution Width 12.2 % (11.0-16.0); White Blood Count 9.6 X10*3/uL (4.8-10.8)
[2023-06-10 17:02] LABS: Appearance Urine Cloudy; Color Urine Dark Yellow; Glucose Urine UA Negative (Negative); Leukocyte Esterase Urine Moderate (2+) (Negative); Nitrite Urine Negative (Negative); Specific Gravity - Urine >= 1.030 (1.005-1.025); UMIC TRIGGER UACC YES; Urine Blood Negative (Negative); Urine Ketones Trace mg/dL (Negative); Urine Protein Negative (Neg-Trace)
[2023-06-10 17:08] LABS: Amphetamine Screen Urine Not Detected (Not Detect); Barbiturates, Urine Not Detected (Not Detect); Benzodiazepines Screen Urine Not Detected (Not Detect); Cannabinoid Screen Urine Not Detected (Not Detect); Cocaine Screen Urine Not Detected (Not Detect); Fentanyl, urine Not Detected (Not Detect); Opiate Screen Urine Not Detected (Not Detect); Phencyclidine Screen Urine Not Detected (Not Detect)
[2023-06-10 17:11] LABS: Bacteria Urine 4+ (None Seen); RBC Urine 0-2 /HPF (0-2); UACC Culture Trigger YES
[2023-06-10 17:23] LABS: Alanine Aminotransferase 13 U/L (0-31); Alkaline Phosphatase 93 U/L (39-117); Anion Gap 13 (12-20); Aspartate Amino Transferase 18 U/L (5-31); Bilirubin Total 0.4 mg/dL (0.0-1.0); Blood Urea Nitrogen 22 mg/dL (9-16); Calcium 9.2 mg/dL (8.4-10.2); Carbon Dioxide 23 mmol/L (22-29); Chloride 108 mmol/L (96-108); Creatinine Clr Calc Pharmacy 53.3; Estimated Glomerular Filt Rate > 60; Ethanol < 10 mg/dL; Glucose Random 110 mg/dL (60-115); Lipase 30 U/L (8-78); Magnesium 1.9 mg/dL (1.6-2.6); Potassium 3.9 mmol/L (3.3-5.1); Sodium 140 mmol/L (135-145); Total Protein 7.4 g/dL (6.5-8.0)
--- NOTE | 2023-06-10 18:09 | PC.NURSE ---
patient sitting up eating dinner, has remained calm and cooperative, respirations equal and unlabored. patient able to make needs known, shows no apparent signs of distress. skin PWD.
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
--- NOTE | 2023-06-10 19:11 | PC.NURSE ---
patient appears to remain at rest at present respirations are even and unlabored patient appears in no distress.
[2023-06-10 19:33] LABS: COVID-19 Test Negative (Negative); IDNOW Serial# 08D9AD1C
[2023-06-10 21:50] VITALS: BP 125/82; PULSE 88; RESP 16; TEMP 36.6; O2SAT 97
[2023-06-10] MEDS: Melatonin 3 MG TABLET PO (22:18)
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
[2023-06-11 07:00] VITALS: BMI 24.5
[2023-06-11] MEDS: buPROPion HCl XL 150 MG TAB.ER.24H PO (08:05)
[2023-06-11 08:24] VITALS: BP 109/67; PULSE 74; RESP 18; TEMP 37.1; O2SAT 96
[2023-06-11 17:14] VITALS: BP 134/78; PULSE 74; RESP 16; TEMP 36.6; O2SAT 97
[2023-06-11] MEDS: Donepezil HCl 10 MG TABLET PO (20:06)
[2023-06-11] MEDS: Divalproex Sodium ER 500 MG TAB.ER.24H PO (20:07)
[2023-06-11] MEDS: Cariprazine HCl 3 MG CAPSULE PO (20:07)
[2023-06-11] MEDS: Melatonin 3 MG TABLET PO (20:07)
[2023-06-11] MEDS: Acetaminophen 325 MG TABLET 650 MG PO (21:37)
[2023-06-12 08:16] VITALS: BP 115/67; PULSE 85; RESP 16; TEMP 36.5; O2SAT 98
[2023-06-12] MEDS: buPROPion HCl XL 150 MG TAB.ER.24H PO (08:31)
[2023-06-12] MEDS: Acetaminophen 325 MG TABLET 650 MG PO ×3 (09:35→21:39)
--- NOTE | 2023-06-12 10:52 | P.PNPSI_ITS ---
Subjective Subjective Date of Service: 06/12/23 Reason For Visit: Dysregulated Interim History: Met with patient; discussed with team; discussed with geriatric provider Patient reports she has feeling a little better now that she is back on her medications and she is indeed more interactive and with some improved emotional expression. She would like to continue having her home meds titrated back to home dose. Discussed transitioning to Geriatric unit to which she agrees Mental Status Exam Mental Status Exam Narrative: Pt is alert and oriented; behavior is cooperative, calm, little more talkative; patient is not in distress; dressed in casual attire with unkempt, thinning hair, marginal hygiene; mood is described as little better and affect congruent, a little more expressive; eye contact appropriate; Speech is still on quiet side, but normal rate; psychomotor retardation present; thought process goal directed; Thought content is on a little vacuous but otherwise on tx; able to remain relevant topics; no delusional thoughts expressed; denies any SI/HI. There is no evidence of perceptual disturbance and denies AVH. Patients insight and judgment impaired Diagnostics Vital Signs (24Hr): Vital Signs - 24 hr 06/11/23 17:14 06/12/23 08:16 Temperature 97.8 F 97.7 F Pulse Rate 74 85 Respiratory Rate 16 16 Blood Pressure 134/78 115/67 Pulse Oximetry 97 98 Oxygen Delivery Method Room Air Room Air BMI result Body Mass Index 24.5 Labs 06/10/23 16:48 06/10/23 16:48 Labs: Laboratory Results - last 48 hr 06/10/23 06/10/23 06/10/23 16:44 16:48 19:07 WBC 9.6 RBC 4.84 Hgb 14.5 Hct 43.3 MCV 89.5 MCH 30.0 MCHC 33.5 RDW 12.2 Plt Count 368 D MPV 9.2 L Immature Gran % (Auto) 0.3 Neut % (Auto) 72.9 Lymph % (Auto) 20.0 [place] % (Auto) 6.3 Eos % (Auto) 0.2 Baso % (Auto) 0.3 Lymph # (Auto) 1.9 [place] # (Auto) 0.6 Eos # (Auto) 0.0 Baso # (Auto) 0.0 Abs Immat Gran (auto) 0.03 Absolute Neuts (auto) 7.0 Absolute Nucleated RBC 0.000 Nucleated RBC % (auto) 0.0 Sodium 140 Potassium 3.9 Chloride 108 Carbon Dioxide 23 Anion Gap 13 BUN 22 H Creatinine 0.89 Estim Creat Clear Calc 53.3 Estimated GFR > 60 Random Glucose 110 Calcium 9.2 Magnesium 1.9 Total Bilirubin 0.4 AST 18 ALT 13 Alkaline Phosphatase 93 Total Protein 7.4 Albumin 4.0 Lipase 30 Urine Color Dark Yellow Urine Appearance Cloudy Urine pH 5.0 Ur Specific [place] >= 1.030 H Urine Protein Negative Urine Glucose (UA) Negative Urine Ketones Trace Urine Blood Negative Urine Nitrite Negative Ur Leukocyte Esterase Moderate (2+) H Urine RBC 0-2 Urine WBC 11-20 Ur Squamous Epith Cells 11-20 Urine Bacteria 4+ Hyaline Casts 6-10 Urine Opiates Screen Not Detected Urine Fentanyl Screen Not Detected Ur Barbiturates Screen Not Detected Ur Phencyclidine Scrn Not Detected Ur Amphetamines Screen Not Detected U Benzodiazepines Scrn Not Detected Urine Cocaine Screen Not Detected U Marijuana (THC) Screen Not Detected Ethyl Alcohol < 10 COVID-19 ([facility]) Negative COVID-19 Clin Com See Note Medications Medications Current Medications Acetaminophen (Acetaminophen 325 Mg Tablet) 650 mg PO Q6H PRN PRN Reason: Headache/Pain Mild Scale (1-3) Last Admin: 06/12/23 09:35 Dose: 650 mg Al Hydroxide/Mg Hydroxide (Magnesium Hydrox/Alum Hydrox 30 Ml Oral.Susp) 30 ml PO Q6H PRN PRN Reason: Heartburn/Nausea Bupropion HCl (Bupropion Hcl Xl 300 Mg Tab.Er.24h) 300 mg PO DAILY CARL[facility] Cariprazine (Cariprazine Hcl 3 Mg Capsule) 3 mg PO BEDTIME CARLOS Last Admin: 06/11/23 20:07 Dose: 3 mg Divalproex Sodium (Divalproex Sodium Er 500 Mg Tab.Er.24h) 500 mg PO BEDTIME CARLOS Stop: 06/12/23 21:00 Last Admin: 06/11/23 20:07 Dose: 500 mg Divalproex Sodium (Divalproex Sodium Er 500 Mg Tab.Er.24h) 1,000 mg PO BEDTIME CARLOS Donepezil HCl (Donepezil Hcl 10 Mg Tablet) 10 mg PO BEDTIME CARLOS Last Admin: 06/11/23 20:06 Dose: 10 mg Lactic Acid (Ammonium Lactate 12 % Lotion 226 Gm Bottle) 1 appl TOPICAL BID PRN; Protocol PRN Reason: dry skin Magnesium Hydroxide (Milk Of Magnesia 30 Ml Oral.Susp) 30 ml PO DAILY PRN PRN Reason: Constipation Melatonin (Melatonin 3 Mg Tablet) 3 mg PO BEDTIME CARLOS Last Admin: 06/11/23 20:07 Dose: 3 mg Trazodone HCl (Trazodone Hcl 25 Mg Halftab) 25 mg PO BEDTIME MRX1 PRN PRN Reason: Insomnia Allergies Allergies Allergy/AdvReac Type Severity Reaction Status Date / Time No Known Allergies Allergy Verified 06/10/23 16:06 Assessment & Plan Assessment & Plan (1) Bipolar disorder, most recent episode depressed: Status: Acute Code(s): F31.30 - Bipolar disorder, current episode depressed, mild or moderate severity, unspecified Plan Patient is a 67-year-old female with history of bipolar disorder II, PTSD, last psychiatric admission February 2023 who presents for worsening depression and face of going off her medications. Patient is somewhat of a poor historian due to significant psychomotor retardation from depression. She says she was stable after being discharged in February but at some point her mood went a little down and for some reason she can not describe, she decided to go off all of her medications. She said soon afterwards she got a deep depression.. And has since had no motivation, would just lay in bed, increased guilty feelings, poor concentration, low energy, low appetite. Denies any SI; denies any AVH. Denies any recent hypomanic episodes. She said she knows she should have stayed on her medications and wish she did. She does not usually let her depression go this long before getting back on them. Patient would like to be restarted on home medications. Patient denies any dysuria, urinary frequency or urgency Hospital course: 06/12 patient reports she has feeling a little better now that she is back on her medications and she is indeed more interactive and with some improved emotional expression. She would like to continue having her home meds titrated back to home dose. Discussed transitioning to Geriatric unit to which she agrees Plan: CV Q 15 minute checks Restart home meds and titrate back to home doses Increase to Bupropion Xl 300 Mg Continue Cariprazine 1.5 mg; titrate to Cariprazine Hcl 3 Mg BEDTIME CARLOS Increase to Divalproex Sodium ER 750 mg, then 1000 mg; retitrate to 1500mg (or 1725mg?? need to confirm home dose) Continue Donepezil HCl (Donepezil Hcl 10 Mg Tablet) 10 mg PO BEDTIME CARLOS Continue Melatonin (Melatonin 3 Mg Tablet) 3 mg PO BEDTIME CARLOS Patient educated on: diagnosis and medication risk/benefits Informed Consent: understands Reason for continued inpatient stay Substantial Risk for: rapid decompensation Time Spent With Patient Time: Total time managing care of this patient today ____ minutes.
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
[2023-06-12] MEDS: Divalproex Sodium ER 250 MG TAB.ER.24H PO (10:54)
[2023-06-12 18:00] VITALS: BP 150/75; PULSE 77; RESP 18; TEMP 36.4; O2SAT 100
[2023-06-12] MEDS: Donepezil HCl 10 MG TABLET PO (21:39)
[2023-06-12] MEDS: Cariprazine HCl 3 MG CAPSULE PO (21:39)
[2023-06-12] MEDS: Divalproex Sodium ER 500 MG TAB.ER.24H PO (21:39)
[2023-06-12] MEDS: traZODone HCL 25 MG HALFTAB PO (21:39)
[2023-06-12] MEDS: Melatonin 3 MG TABLET PO (21:39)
[2023-06-13 08:00] VITALS: BP 99/54; PULSE 80; RESP 18; TEMP 36.7; O2SAT 97
[2023-06-13] MEDS: buPROPion HCl XL 300 MG TAB.ER.24H PO (08:32)
--- NOTE | 2023-06-13 10:26 | HO.PSYCHPN ---
Subjective Subjective Date of Service: 06/13/23 Reason For Visit: Dysregulated Interim History: Pt seen and reviewed with team. Plan of care reviewed. Team reports pt is sleeping and eating adequately, is med compliant, without behavioral dyscontrol. Today, pt is participating in group with peers and presents as engaged in her plan of care. Medication Compliance: Yes Side effects from medications: No Attending Groups: Yes Review of Systems Acute medical concerns: No Medical Review of Systems: unchanged Review of Systems Review of Systems Yes all other systems are reviewed and are negative Mental Status Exam Mental Status Exam Patient Appearance: Appropriate Level of Consciousness: Alert Patient Behavior: Talkative Mood Description: Flat Affect Description: Flat Patient Cognition Impaired: Yes Ability to Follow Directions: Fair Speech Pattern: Spontaneous Speech Memory Description: Remote Impaired and Episodic Impaired Hallucinations: None Delusions: Not Present Thought Process: Confusion Thought Content: positive for Circumstantial Abnormal Motor Activity Signs and Symptoms: Restlessness Judgement: Poor Diagnostics Vital Signs (24Hr): Vital Signs - 24 hr 06/12/23 18:00 06/13/23 08:00 Temperature 97.5 F 98.0 F Pulse Rate 77 80 Respiratory Rate 18 18 Blood Pressure 150/75 H 99/54 L Pulse Oximetry 100 97 Oxygen Delivery Method Room Air Room Air BMI result Body Mass Index 24.5 Labs 06/10/23 16:48 06/10/23 16:48 Medications Medications Current Medications Acetaminophen (Acetaminophen 325 Mg Tablet) 650 mg PO Q6H PRN PRN Reason: Headache/Pain Mild Scale (1-3) Last Admin: 06/12/23 21:39 Dose: 650 mg Al Hydroxide/Mg Hydroxide (Magnesium Hydrox/Alum Hydrox 30 Ml Oral.Susp) 30 ml PO Q6H PRN PRN Reason: Heartburn/Nausea Bupropion HCl (Bupropion Hcl Xl 300 Mg Tab.Er.24h) 300 mg PO DAILY [facility] Last Admin: 06/13/23 08:32 Dose: 300 mg Cariprazine (Cariprazine Hcl 3 Mg Capsule) 3 mg PO BEDTIME CARLOS Last Admin: 06/12/23 21:39 Dose: 3 mg Divalproex Sodium (Divalproex Sodium Er 500 Mg Tab.Er.24h) 1,000 mg PO BEDTIME CARLOS Donepezil HCl (Donepezil Hcl 10 Mg Tablet) 10 mg PO BEDTIME CARLOS Last Admin: 06/12/23 21:39 Dose: 10 mg Lactic Acid (Ammonium Lactate 12 % Lotion 226 Gm Bottle) 1 appl TOPICAL BID PRN; Protocol PRN Reason: dry skin Magnesium Hydroxide (Milk Of Magnesia 30 Ml Oral.Susp) 30 ml PO DAILY PRN PRN Reason: Constipation Melatonin (Melatonin 3 Mg Tablet) 3 mg PO BEDTIME CARLOS Last Admin: 06/12/23 21:39 Dose: 3 mg Trazodone HCl (Trazodone Hcl 25 Mg Halftab) 25 mg PO BEDTIME MRX1 PRN PRN Reason: Insomnia Last Admin: 06/12/23 21:39 Dose: 25 mg Allergies Allergies Allergy/AdvReac Type Severity Reaction Status Date / Time No Known Allergies Allergy Verified 06/10/23 16:06 Assessment & Plan Assessment & Plan (1) Bipolar disorder, most recent episode depressed: Status: Acute Code(s): F31.30 - Bipolar disorder, current episode depressed, mild or moderate severity, unspecified Plan Patie24 Continuent is a 67-year-old female with history of bipolar disorder II, PTSD, last psychiatric admission February 2023 who presents for worsening depression and face of going off her medications. Patient is somewhat of a poor historian due to significant psychomotor retardation from depression. She says she was stable after being discharged in February but at some point her mood went a little down and for some reason she can not describe, she decided to go off all of her medications. She said soon afterwards she got a deep depression.. And has since had no motivation, would just lay in bed, increased guilty feelings, poor concentration, low energy, low appetite. Denies any SI; denies any AVH. Denies any recent hypomanic episodes. She said she knows she should have stayed on her medications and wish she did. She does not usually let her depression go this long before getting back on them. Patient would like to be restarted on home medications. Patient denies any dysuria, urinary frequency or urgency Hospital course: 06/12 patient reports she has feeling a little better now that she is back on her medications and she is indeed more interactive and with some improved emotional expression. She would like to continue having her home meds titrated back to home dose. Discussed transitioning to Geriatric unit to which she agrees 06/13/23: Continue Rx. Plan: CV Q 15 minute checks Restart home meds and titrate back to home doses Increase to Bupropion Xl 300 Mg Continue Cariprazine 1.5 mg; titrate to Cariprazine Hcl 3 Mg BEDTIME CARLOS Increase to Divalproex Sodium ER 750 mg, then 1000 mg; retitrate to 1500mg (or 1725mg?? need to confirm home dose) Continue Donepezil HCl (Donepezil Hcl 10 Mg Tablet) 10 mg PO BEDTIME CARLOS Continue Melatonin (Melatonin 3 Mg Tablet) 3 mg PO BEDTIME CARLOS Informed Consent: further education needed Reason for continued inpatient stay Substantial Risk for: rapid decompensation Time Spent With Patient Time: Total time managing care of this patient today ____ minutes.
[2023-06-13 19:45] VITALS: BP 120/71; PULSE 74; RESP 16; TEMP 36.6; O2SAT 96
[2023-06-13] MEDS: Donepezil HCl 10 MG TABLET PO (21:12)
[2023-06-13] MEDS: Cariprazine HCl 3 MG CAPSULE PO (21:12)
[2023-06-13] MEDS: Melatonin 3 MG TABLET PO (21:12)
[2023-06-13] MEDS: traZODone HCL 25 MG HALFTAB PO (21:12)
[2023-06-13] MEDS: Divalproex Sodium ER 500 MG TAB.ER.24H 1000 MG PO (21:12)
[2023-06-14 08:00] VITALS: BP 93/51; PULSE 81; RESP 18; TEMP 36.7; O2SAT 97
[2023-06-14] MEDS: buPROPion HCl XL 300 MG TAB.ER.24H PO (08:40)
[2023-06-14] MEDS: Acetaminophen 325 MG TABLET 650 MG PO ×2 (08:53→16:14)
--- NOTE | 2023-06-14 17:51 | P.PNPSI_ITS ---
Subjective Subjective Date of Service: 06/14/23 Reason For Visit: Dysregulated Interim History: Pt seen, reviewed with the team BP 93/51 this a.m. Pt reports she needs to increase intake of food/fluids. Team is encouraging her to do this. Attending group when seen-interactive and participating with peers Medication Compliance: Yes Side effects from medications: No Attending Groups: Yes Review of Systems Acute medical concerns: No Medical Review of Systems: unchanged Review of Systems Review of Systems Yes all other systems are reviewed and are negative Mental Status Exam Mental Status Exam Patient Appearance: Appropriate Level of Consciousness: Alert Patient Behavior: Talkative Mood Description: Flat Affect Description: Flat Patient Cognition Impaired: Yes Ability to Follow Directions: Fair Speech Pattern: Spontaneous Speech Memory Description: Remote Impaired and Episodic Impaired Hallucinations: None Delusions: Not Present Thought Process: Confusion Thought Content: positive for Circumstantial Judgement: Poor Diagnostics Vital Signs (24Hr): Vital Signs - 24 hr 06/13/23 19:45 06/14/23 08:00 Temperature 97.8 F 98.1 F Pulse Rate 74 81 Respiratory Rate 16 18 Blood Pressure 120/71 93/51 L Pulse Oximetry 96 97 Oxygen Delivery Method Room Air Room Air BMI result Body Mass Index 24.5 Labs 06/10/23 16:48 06/10/23 16:48 Medications Medications Current Medications Acetaminophen (Acetaminophen 325 Mg Tablet) 650 mg PO Q6H PRN PRN Reason: Headache/Pain Mild Scale (1-3) Last Admin: 06/14/23 16:14 Dose: 650 mg Al Hydroxide/Mg Hydroxide (Magnesium Hydrox/Alum Hydrox 30 Ml Oral.Susp) 30 ml PO Q6H PRN PRN Reason: Heartburn/Nausea Bupropion HCl (Bupropion Hcl Xl 300 Mg Tab.Er.24h) 300 mg PO DAILY [facility] Last Admin: 06/14/23 08:40 Dose: 300 mg Cariprazine (Cariprazine Hcl 3 Mg Capsule) 3 mg PO BEDTIME CARLOS Last Admin: 06/13/23 21:12 Dose: 3 mg Divalproex Sodium (Divalproex Sodium Er 500 Mg Tab.Er.24h) 1,000 mg PO BEDTIME CARLOS Last Admin: 06/13/23 21:12 Dose: 1,000 mg Donepezil HCl (Donepezil Hcl 10 Mg Tablet) 10 mg PO BEDTIME CARLOS Last Admin: 06/13/23 21:12 Dose: 10 mg Lactic Acid (Ammonium Lactate 12 % Lotion 226 Gm Bottle) 1 appl TOPICAL BID PRN; Protocol PRN Reason: dry skin Magnesium Hydroxide (Milk Of Magnesia 30 Ml Oral.Susp) 30 ml PO DAILY PRN PRN Reason: Constipation Melatonin (Melatonin 3 Mg Tablet) 3 mg PO BEDTIME CARLOS Last Admin: 06/13/23 21:12 Dose: 3 mg Trazodone HCl (Trazodone Hcl 25 Mg Halftab) 25 mg PO BEDTIME MRX1 PRN PRN Reason: Insomnia Last Admin: 06/13/23 21:12 Dose: 25 mg Allergies Allergies Allergy/AdvReac Type Severity Reaction Status Date / Time No Known Allergies Allergy Verified 06/10/23 16:06 Assessment & Plan Assessment & Plan (1) Bipolar disorder, most recent episode depressed: Status: Acute Code(s): F31.30 - Bipolar disorder, current episode depressed, mild or moderate severity, unspecified Plan [email or web address] Continuent is a 67-year-old female with history of bipolar disorder II, PTSD, last psychiatric admission February 2023 who presents for worsening depression and face of going off her medications. Patient is somewhat of a poor historian due to significant psychomotor retardation from depression. She says she was stable after being discharged in February but at some point her mood went a little down and for some reason she can not describe, she decided to go off all of her medications. She said soon afterwards she got a deep depression.. And has since had no motivation, would just lay in bed, increased guilty feelings, poor concentration, low energy, low appetite. Denies any SI; denies any AVH. Denies any recent hypomanic episodes. She said she knows she should have stayed on her medications and wish she did. She does not usually let her depression go this long before getting back on them. Patient would like to be restarted on home medications. Patient denies any dysuria, urinary frequency or urgency Hospital course: 06/12 patient reports she has feeling a little better now that she is back on her medications and she is indeed more interactive and with some improved emotional expression. She would like to continue having her home meds titrated back to home dose. Discussed transitioning to Geriatric unit to which she agrees 06/13/23: Continue Rx. 06/14/23: Continue Rx. Plan: CV Q 15 minute checks Restart home meds and titrate back to home doses Increase to Bupropion Xl 300 Mg Continue Cariprazine 1.5 mg; titrate to Cariprazine Hcl 3 Mg BEDTIME CARLOS Increase to Divalproex Sodium ER 750 mg, then 1000 mg; retitrate to 1500mg (or 1725mg?? need to confirm home dose) Continue Donepezil HCl (Donepezil Hcl 10 Mg Tablet) 10 mg PO BEDTIME CARLOS Continue Melatonin (Melatonin 3 Mg Tablet) 3 mg PO BEDTIME CARLOS Reason for continued inpatient stay Substantial Risk for: rapid decompensation Time Spent With Patient Time: Total time managing care of this patient today ____ minutes.
[2023-06-14 20:00] VITALS: BP 132/63; PULSE 84; RESP 16; TEMP 36.2; O2SAT 98
[2023-06-14] MEDS: Divalproex Sodium ER 500 MG TAB.ER.24H 1000 MG PO (20:50)
[2023-06-14] MEDS: traZODone HCL 25 MG HALFTAB PO (20:51)
[2023-06-14] MEDS: Melatonin 3 MG TABLET PO (20:51)
[2023-06-14] MEDS: Donepezil HCl 10 MG TABLET PO (20:51)
[2023-06-14] MEDS: Cariprazine HCl 3 MG CAPSULE PO (20:51)
[2023-06-15 08:26] VITALS: BP 113/66; PULSE 83; RESP 17; TEMP 36.2; O2SAT 99
[2023-06-15] MEDS: buPROPion HCl XL 300 MG TAB.ER.24H PO (08:27)
[2023-06-15] MEDS: Acetaminophen 325 MG TABLET 650 MG PO (09:11)
--- NOTE | 2023-06-15 12:51 | HO.PSYCHPN ---
Subjective Subjective Date of Service: 06/15/23 Reason For Visit: Dysregulated Subjective Notes: Conditional Voluntary Interim History: The nursing staff reported the patient had been compliant with treatment, she was seen cheerful and socializing with peers attending to groups. On interview the patient denies worsening of depression. No side effects at this moment. She agreed to take medications as prescribed Mental Status Exam Mental Status Exam Patient Appearance: Well Grooomed and Appropriate Patient Orientation: Person and Situation Level of Consciousness: Awake and Appropriate Patient Behavior: Appropriate and Cooperative Mood Description: Calm Affect Description: Constricted Patient Cognition Impaired: Yes Ability to Follow Directions: Good Speech Pattern: Clear Hallucinations: None Delusions: Not Present Thought Process: Distracted and Linear Thought Content: positive for Industry and positive for Circumstantial Judgement: Fair Diagnostics Vital Signs (24Hr): Vital Signs - 24 hr 06/14/23 20:00 06/15/23 08:26 Temperature 97.2 F 97.2 F Pulse Rate 84 83 Respiratory Rate 16 17 Blood Pressure 132/63 113/66 Pulse Oximetry 98 99 Oxygen Delivery Method Room Air Room Air BMI result Body Mass Index 24.5 Labs 06/10/23 16:48 06/10/23 16:48 Medications Medications Current Medications Acetaminophen (Acetaminophen 325 Mg Tablet) 650 mg PO Q6H PRN PRN Reason: Headache/Pain Mild Scale (1-3) Last Admin: 06/15/23 09:11 Dose: 650 mg Al Hydroxide/Mg Hydroxide (Magnesium Hydrox/Alum Hydrox 30 Ml Oral.Susp) 30 ml PO Q6H PRN PRN Reason: Heartburn/Nausea Bupropion HCl (Bupropion Hcl Xl 300 Mg Tab.Er.24h) 300 mg PO DAILY [facility] Last Admin: 06/15/23 08:27 Dose: 300 mg Cariprazine (Cariprazine Hcl 3 Mg Capsule) 3 mg PO BEDTIME CARLOS Last Admin: 06/14/23 20:51 Dose: 3 mg Divalproex Sodium (Divalproex Sodium Er 500 Mg Tab.Er.24h) 1,000 mg PO BEDTIME CARLOS Last Admin: 06/14/23 20:50 Dose: 1,000 mg Donepezil HCl (Donepezil Hcl 10 Mg Tablet) 10 mg PO BEDTIME CARLOS Last Admin: 06/14/23 20:51 Dose: 10 mg Lactic Acid (Ammonium Lactate 12 % Lotion 226 Gm Bottle) 1 appl TOPICAL BID PRN; Protocol PRN Reason: dry skin Magnesium Hydroxide (Milk Of Magnesia 30 Ml Oral.Susp) 30 ml PO DAILY PRN PRN Reason: Constipation Melatonin (Melatonin 3 Mg Tablet) 3 mg PO BEDTIME CARLOS Last Admin: 06/14/23 20:51 Dose: 3 mg Trazodone HCl (Trazodone Hcl 25 Mg Halftab) 25 mg PO BEDTIME MRX1 PRN PRN Reason: Insomnia Last Admin: 06/14/23 20:51 Dose: 25 mg Allergies Allergies Allergy/AdvReac Type Severity Reaction Status Date / Time No Known Allergies Allergy Verified 06/10/23 16:06 Assessment & Plan Assessment & Plan (1) Bipolar disorder, most recent episode depressed: Status: Acute Code(s): F31.30 - Bipolar disorder, current episode depressed, mild or moderate severity, unspecified Plan [email or web address] Continuent is a 67-year-old female with history of bipolar disorder II, PTSD, last psychiatric admission February 2023 who presents for worsening depression and face of going off her medications. Patient is somewhat of a poor historian due to significant psychomotor retardation from depression. She says she was stable after being discharged in February but at some point her mood went a little down and for some reason she can not describe, she decided to go off all of her medications. She said soon afterwards she got a deep depression.. And has since had no motivation, would just lay in bed, increased guilty feelings, poor concentration, low energy, low appetite. Denies any SI; denies any AVH. Denies any recent hypomanic episodes. She said she knows she should have stayed on her medications and wish she did. She does not usually let her depression go this long before getting back on them. Patient would like to be restarted on home medications. Patient denies any dysuria, urinary frequency or urgency Hospital course: 06/12 patient reports she has feeling a little better now that she is back on her medications and she is indeed more interactive and with some improved emotional expression. She would like to continue having her home meds titrated back to home dose. Discussed transitioning to Geriatric unit to which she agrees 06/13/23: Continue Rx. 06/14/23: Continue Rx. Plan: CV Q 15 minute checks Restart home meds and titrate back to home doses Increase to Bupropion Xl 300 Mg Continue Cariprazine 1.5 mg; titrate to Cariprazine Hcl 3 Mg BEDTIME CARLOS Increase to Divalproex Sodium ER 750 mg, then 1000 mg; retitrate to 1500mg (or 1725mg?? need to confirm home dose) Continue Donepezil HCl (Donepezil Hcl 10 Mg Tablet) 10 mg PO BEDTIME CARLOS Continue Melatonin (Melatonin 3 Mg Tablet) 3 mg PO BEDTIME CARLOS Reason for continued inpatient stay Substantial Risk for: inability to function, rapid decompensation and med/psych decompensation Time Spent With Patient Time: Total time managing care of this patient today ___20_ minutes.
[2023-06-15 18:00] VITALS: BP 153/67; PULSE 80; RESP 18; TEMP 36.1; O2SAT 97
[2023-06-15] MEDS: Donepezil HCl 10 MG TABLET PO (22:11)
[2023-06-15] MEDS: Cariprazine HCl 3 MG CAPSULE PO (22:11)
[2023-06-15] MEDS: Melatonin 3 MG TABLET PO (22:11)
[2023-06-15] MEDS: Divalproex Sodium ER 500 MG TAB.ER.24H 1000 MG PO (22:11)
[2023-06-16] MEDS: Acetaminophen 325 MG TABLET 650 MG PO ×2 (05:00→20:15)
[2023-06-16 06:00] VITALS: BP 133/65; PULSE 80; RESP 16; TEMP 36.1; O2SAT 100
[2023-06-16] MEDS: buPROPion HCl XL 300 MG TAB.ER.24H PO (07:53)
--- NOTE | 2023-06-16 12:19 | P.PNPSI_ITS ---
Subjective Subjective Date of Service: 06/16/23 Reason For Visit: Dysregulated Subjective Notes: Conditional Voluntary Interim History: The nursing staff reported the patient had been cheerful, attending to groups, she slept well. Last night she took a p.r.n. of Tylenol for headache. The clinical social work aide reported the patient stated that she does not want to go back to her ex- apparently she has already filed for divorce long time ago. On interview the patient denies new symptoms she agreed to have blood work for tomorrow. Mental Status Exam Mental Status Exam Patient Appearance: Well Grooomed and Appropriate Patient Orientation: Person and Situation Level of Consciousness: Awake and Appropriate Patient Behavior: Appropriate and Cooperative Mood Description: Calm Affect Description: Constricted Patient Cognition Impaired: Yes Ability to Follow Directions: Good Speech Pattern: Clear Hallucinations: None Delusions: Not Present Thought Process: Linear Thought Content: positive for Circumstantial Judgement: Fair Diagnostics Vital Signs (24Hr): Vital Signs - 24 hr 06/15/23 18:00 06/16/23 06:00 Temperature 97 F 97 F Pulse Rate 80 80 Respiratory Rate 18 16 Blood Pressure 153/67 H 133/65 Pulse Oximetry 97 100 Oxygen Delivery Method Room Air Room Air BMI result Body Mass Index 24.5 Labs 06/10/23 16:48 06/10/23 16:48 Medications Medications Current Medications Acetaminophen (Acetaminophen 325 Mg Tablet) 650 mg PO Q6H PRN PRN Reason: Headache/Pain Mild Scale (1-3) Last Admin: 06/16/23 05:00 Dose: 650 mg Al Hydroxide/Mg Hydroxide (Magnesium Hydrox/Alum Hydrox 30 Ml Oral.Susp) 30 ml PO Q6H PRN PRN Reason: Heartburn/Nausea Bupropion HCl (Bupropion Hcl Xl 300 Mg Tab.Er.24h) 300 mg PO DAILY [facility] Last Admin: 06/16/23 07:53 Dose: 300 mg Cariprazine (Cariprazine Hcl 3 Mg Capsule) 3 mg PO BEDTIME CARLOS Last Admin: 06/15/23 22:11 Dose: 3 mg Divalproex Sodium (Divalproex Sodium Er 500 Mg Tab.Er.24h) 1,000 mg PO BEDTIME CARLOS Last Admin: 06/15/23 22:11 Dose: 1,000 mg Donepezil HCl (Donepezil Hcl 10 Mg Tablet) 10 mg PO BEDTIME CARLOS Last Admin: 06/15/23 22:11 Dose: 10 mg Lactic Acid (Ammonium Lactate 12 % Lotion 226 Gm Bottle) 1 appl TOPICAL BID PRN; Protocol PRN Reason: dry skin Magnesium Hydroxide (Milk Of Magnesia 30 Ml Oral.Susp) 30 ml PO DAILY PRN PRN Reason: Constipation Melatonin (Melatonin 3 Mg Tablet) 3 mg PO BEDTIME CARLOS Last Admin: 06/15/23 22:11 Dose: 3 mg Trazodone HCl (Trazodone Hcl 25 Mg Halftab) 25 mg PO BEDTIME MRX1 PRN PRN Reason: Insomnia Last Admin: 06/14/23 20:51 Dose: 25 mg Allergies Allergies Allergy/AdvReac Type Severity Reaction Status Date / Time No Known Allergies Allergy Verified 06/10/23 16:06 Assessment & Plan Assessment & Plan (1) Bipolar disorder, most recent episode depressed: Status: Acute Code(s): F31.30 - Bipolar disorder, current episode depressed, mild or moderate severity, unspecified Plan Patie24 Continuent is a 67-year-old female with history of bipolar disorder II, PTSD, last psychiatric admission February 2023 who presents for worsening depression and face of going off her medications. Patient is somewhat of a poor historian due to significant psychomotor retardation from depression. She says she was stable after being discharged in February but at some point her mood went a little down and for some reason she can not describe, she decided to go off all of her medications. She said soon afterwards she got a deep depression.. And has since had no motivation, would just lay in bed, increased guilty feelings, poor concentration, low energy, low appetite. Denies any SI; denies any AVH. Denies any recent hypomanic episodes. She said she knows she should have stayed on her medications and wish she did. She does not usually let her depression go this long before getting back on them. Patient would like to be restarted on home medications. Patient denies any dysuria, urinary frequency or urgency Hospital course: 06/12 patient reports she has feeling a little better now that she is back on her medications and she is indeed more interactive and with some improved emotional expression. She would like to continue having her home meds titrated back to home dose. Discussed transitioning to Geriatric unit to which she agrees 06/13/23: Continue Rx. 06/14/23: Continue Rx. Plan: CV Q 15 minute checks Restart home meds and titrate back to home doses Increase to Bupropion Xl 300 Mg Continue Cariprazine 1.5 mg; titrate to Cariprazine Hcl 3 Mg BEDTIME CARLOS Increase to Divalproex Sodium ER 750 mg, then 1000 mg; retitrate to 1500mg (or 1725mg?? need to confirm home dose) Continue Donepezil HCl (Donepezil Hcl 10 Mg Tablet) 10 mg PO BEDTIME CARLOS Continue Melatonin (Melatonin 3 Mg Tablet) 3 mg PO BEDTIME CARLOS Depakote level for June 17 and adjust Depakote accordingly. Reason for continued inpatient stay Substantial Risk for: inability to function, rapid decompensation and med/psych decompensation Time Spent With Patient Time: Total time managing care of this patient today __20__ minutes.
[2023-06-16 19:30] VITALS: BP 172/82; PULSE 83; RESP 18; TEMP 35.7; O2SAT 100
[2023-06-16] MEDS: Donepezil HCl 10 MG TABLET PO (20:15)
[2023-06-16] MEDS: Divalproex Sodium ER 500 MG TAB.ER.24H 1000 MG PO (20:15)
[2023-06-16] MEDS: Melatonin 3 MG TABLET PO (20:15)
[2023-06-16] MEDS: Cariprazine HCl 3 MG CAPSULE PO (20:16)
[2023-06-16] MEDS: Ammonium Lactate 12 % Lotion 226 GM BOTTLE 1 APPL TOPICAL (23:38)
[2023-06-17] MEDS: Acetaminophen 325 MG TABLET 650 MG PO ×2 (03:38→14:37)
[2023-06-17 06:43] LABS: Valproate 73.8 mcg/mL (50.0-100.0)
[2023-06-17 08:00] VITALS: BP 169/74; PULSE 73; RESP 18; TEMP 35.9; O2SAT 99
[2023-06-17] MEDS: buPROPion HCl XL 300 MG TAB.ER.24H PO (08:26)
--- NOTE | 2023-06-17 13:29 | HO.PSYCHPN ---
Subjective Subjective Date of Service: 06/17/23 Reason For Visit: Dysregulated Subjective Notes: Conditional Voluntary Interim History: The nursing staff reported the patient had been pleasant cooperative fully compliant with treatment. She slept 4 hours and she denies any manic symptoms. The manager social responsibility reported that she will go to assisted living facility. On interview the patient denies new symptoms, we check her Depakote level and it has a therapeutic range on the lower end. We will monitor and reassess again Depakote level next week. Mental Status Exam Mental Status Exam Patient Appearance: Well Grooomed and Appropriate Patient Orientation: Person and Situation Level of Consciousness: Awake and Appropriate Patient Behavior: Guarded and Passive Mood Description: Withdrawn Affect Description: Constricted Patient Cognition Impaired: Yes Ability to Follow Directions: Good Speech Pattern: Clear Hallucinations: None Delusions: Not Present Thought Process: Distracted and Slowed Thinking Thought Content: positive for Circumstantial Judgement: Fair Diagnostics Vital Signs (24Hr): Vital Signs - 24 hr 06/16/23 19:30 06/17/23 08:00 Temperature 96.3 F L 96.6 F L Pulse Rate 83 73 Respiratory Rate 18 18 Blood Pressure 172/82 H 169/74 H Pulse Oximetry 100 99 Oxygen Delivery Method Room Air Room Air BMI result Body Mass Index 24.5 Labs 06/10/23 16:48 06/10/23 16:48 Labs: Laboratory Results - last 48 hr 06/17/23 05:56 Valproic Acid 73.8 Medications Medications Current Medications Acetaminophen (Acetaminophen 325 Mg Tablet) 650 mg PO Q6H PRN PRN Reason: Headache/Pain Mild Scale (1-3) Last Admin: 06/17/23 03:38 Dose: 650 mg Al Hydroxide/Mg Hydroxide (Magnesium Hydrox/Alum Hydrox 30 Ml Oral.Susp) 30 ml PO Q6H PRN PRN Reason: Heartburn/Nausea Bupropion HCl (Bupropion Hcl Xl 300 Mg Tab.Er.24h) 300 mg PO DAILY [facility] Last Admin: 06/17/23 08:26 Dose: 300 mg Cariprazine (Cariprazine Hcl 3 Mg Capsule) 3 mg PO BEDTIME CARLOS Last Admin: 06/16/23 20:16 Dose: 3 mg Divalproex Sodium (Divalproex Sodium Er 500 Mg Tab.Er.24h) 1,000 mg PO BEDTIME CARLOS Last Admin: 06/16/23 20:15 Dose: 1,000 mg Donepezil HCl (Donepezil Hcl 10 Mg Tablet) 10 mg PO BEDTIME CARLOS Last Admin: 06/16/23 20:15 Dose: 10 mg Lactic Acid (Ammonium Lactate 12 % Lotion 226 Gm Bottle) 1 appl TOPICAL BID PRN; Protocol PRN Reason: dry skin Last Admin: 06/16/23 23:38 Dose: 1 appl Magnesium Hydroxide (Milk Of Magnesia 30 Ml Oral.Susp) 30 ml PO DAILY PRN PRN Reason: Constipation Melatonin (Melatonin 3 Mg Tablet) 3 mg PO BEDTIME CARLOS Last Admin: 06/16/23 20:15 Dose: 3 mg Trazodone HCl (Trazodone Hcl 25 Mg Halftab) 25 mg PO BEDTIME MRX1 PRN PRN Reason: Insomnia Last Admin: 06/14/23 20:51 Dose: 25 mg Allergies Allergies Allergy/AdvReac Type Severity Reaction Status Date / Time No Known Allergies Allergy Verified 06/10/23 16:06 Assessment & Plan Assessment & Plan (1) Bipolar disorder, most recent episode depressed: Status: Acute Code(s): F31.30 - Bipolar disorder, current episode depressed, mild or moderate severity, unspecified Plan Patie24 Continuent is a 67-year-old female with history of bipolar disorder II, PTSD, last psychiatric admission February 2023 who presents for worsening depression and face of going off her medications. Patient is somewhat of a poor historian due to significant psychomotor retardation from depression. She says she was stable after being discharged in February but at some point her mood went a little down and for some reason she can not describe, she decided to go off all of her medications. She said soon afterwards she got a deep depression.. And has since had no motivation, would just lay in bed, increased guilty feelings, poor concentration, low energy, low appetite. Denies any SI; denies any AVH. Denies any recent hypomanic episodes. She said she knows she should have stayed on her medications and wish she did. She does not usually let her depression go this long before getting back on them. Patient would like to be restarted on home medications. Patient denies any dysuria, urinary frequency or urgency Hospital course: 06/12 patient reports she has feeling a little better now that she is back on her medications and she is indeed more interactive and with some improved emotional expression. She would like to continue having her home meds titrated back to home dose. Discussed transitioning to Geriatric unit to which she agrees 06/13/23: Continue Rx. 06/14/23: Continue Rx. Plan: CV Q 15 minute checks Restart home meds and titrate back to home doses Increase to Bupropion Xl 300 Mg Continue Cariprazine 1.5 mg; titrate to Cariprazine Hcl 3 Mg BEDTIME ACRLOS Increase to Divalproex Sodium ER 750 mg, then 1000 mg; retitrate to 1500mg (or 1725mg?? need to confirm home dose) Continue Donepezil HCl (Donepezil Hcl 10 Mg Tablet) 10 mg PO BEDTIME CARLOS Continue Melatonin (Melatonin 3 Mg Tablet) 3 mg PO BEDTIME CARLOS Depakote level for June 17 and adjust Depakote accordingly. We are going to keep Depakote a 1000 mg p.o. q.h.s. since her Depakote level on June 17 was 76.5 we are going to repeat next week. Reason for continued inpatient stay Substantial Risk for: inability to function, rapid decompensation and med/psych decompensation Time Spent With Patient Time: Total time managing care of this patient today _20___ minutes.
[2023-06-17 18:00] VITALS: BP 151/89; PULSE 78; RESP 18; TEMP 36.1; O2SAT 98
[2023-06-17] MEDS: Cariprazine HCl 3 MG CAPSULE PO (21:07)
[2023-06-17] MEDS: Melatonin 3 MG TABLET PO (21:07)
[2023-06-17] MEDS: Donepezil HCl 10 MG TABLET PO (21:08)
[2023-06-17] MEDS: Divalproex Sodium ER 500 MG TAB.ER.24H 1000 MG PO (21:08)
[2023-06-18 07:00] VITALS: BMI 24.9
[2023-06-18 08:11] VITALS: BP 145/79; PULSE 81; RESP 16; TEMP 36.8; O2SAT 100
[2023-06-18] MEDS: buPROPion HCl XL 300 MG TAB.ER.24H PO (08:13)
--- NOTE | 2023-06-18 13:10 | HO.PSYCHPN ---
Subjective Subjective Date of Service: 06/18/23 Reason For Visit: Dysregulated Subjective Notes: Conditional Voluntary Interim History: The nursing staff reported the patient had been pleasant and cooperative, she reported that she felt nauseous with a big pill of Depakote and requested a different presentation. On interview the patient denies new symptoms she agreed to change to Depakote Sprinkles. We are going to repeat the Depakote level next week. Mental Status Exam Mental Status Exam Patient Appearance: Appropriate Patient Orientation: Person and Situation Level of Consciousness: Awake and Alert Patient Behavior: Appropriate and Cooperative Mood Description: Calm Affect Description: Calm and Cheerful Ability to Follow Directions: Good Speech Pattern: Clear Hallucinations: None Delusions: Not Present Thought Process: Linear Thought Content: positive for [place] and positive for Circumstantial Judgement: Fair Diagnostics Vital Signs (24Hr): Vital Signs - 24 hr 06/17/23 18:00 06/18/23 08:11 Temperature 97 F 98.3 F Pulse Rate 78 81 Respiratory Rate 18 16 Blood Pressure 151/89 H 145/79 H Pulse Oximetry 98 100 Oxygen Delivery Method Room Air Room Air BMI result Body Mass Index 24.5 Labs 06/10/23 16:48 06/10/23 16:48 Labs: Laboratory Results - last 48 hr 06/17/23 05:56 Valproic Acid 73.8 Medications Medications Current Medications Acetaminophen (Acetaminophen 325 Mg Tablet) 650 mg PO Q6H PRN PRN Reason: Headache/Pain Mild Scale (1-3) Last Admin: 06/17/23 14:37 Dose: 650 mg Al Hydroxide/Mg Hydroxide (Magnesium Hydrox/Alum Hydrox 30 Ml Oral.Susp) 30 ml PO Q6H PRN PRN Reason: Heartburn/Nausea Bupropion HCl (Bupropion Hcl Xl 300 Mg Tab.Er.24h) 300 mg PO DAILY [facility] Last Admin: 06/18/23 08:13 Dose: 300 mg Cariprazine (Cariprazine Hcl 3 Mg Capsule) 3 mg PO BEDTIME [facility] Last Admin: 06/17/23 21:07 Dose: 3 mg Divalproex Sodium (Divalproex Sodium Sprinkles 125 Mg Cap.DrAceSpr) 1,000 mg PO BEDTIME [facility] Donepezil HCl (Donepezil Hcl 10 Mg Tablet) 10 mg PO BEDTIME [facility] Last Admin: 06/17/23 21:08 Dose: 10 mg Lactic Acid (Ammonium Lactate 12 % Lotion 226 Gm Bottle) 1 appl TOPICAL BID PRN; Protocol PRN Reason: dry skin Last Admin: 06/16/23 23:38 Dose: 1 appl Magnesium Hydroxide (Milk Of Magnesia 30 Ml Oral.Susp) 30 ml PO DAILY PRN PRN Reason: Constipation Melatonin (Melatonin 3 Mg Tablet) 3 mg PO BEDTIME [facility] Last Admin: 06/17/23 21:07 Dose: 3 mg Trazodone HCl (Trazodone Hcl 25 Mg Halftab) 25 mg PO BEDTIME MRX1 PRN PRN Reason: Insomnia Last Admin: 06/14/23 20:51 Dose: 25 mg Allergies Allergies Allergy/AdvReac Type Severity Reaction Status Date / Time No Known Allergies Allergy Verified 06/10/23 16:06 Assessment & Plan Assessment & Plan (1) Bipolar disorder, most recent episode depressed: Status: Acute Code(s): F31.30 - Bipolar disorder, current episode depressed, mild or moderate severity, unspecified Plan [email or web address] Continuent is a 67-year-old female with history of bipolar disorder II, PTSD, last psychiatric admission February 2023 who presents for worsening depression and face of going off her medications. Patient is somewhat of a poor historian due to significant psychomotor retardation from depression. She says she was stable after being discharged in February but at some point her mood went a little down and for some reason she can not describe, she decided to go off all of her medications. She said soon afterwards she got a deep depression.. And has since had no motivation, would just lay in bed, increased guilty feelings, poor concentration, low energy, low appetite. Denies any SI; denies any AVH. Denies any recent hypomanic episodes. She said she knows she should have stayed on her medications and wish she did. She does not usually let her depression go this long before getting back on them. Patient would like to be restarted on home medications. Patient denies any dysuria, urinary frequency or urgency Hospital course: 06/12 patient reports she has feeling a little better now that she is back on her medications and she is indeed more interactive and with some improved emotional expression. She would like to continue having her home meds titrated back to home dose. Discussed transitioning to Geriatric unit to which she agrees 06/13/23: Continue Rx. 06/14/23: Continue Rx. Plan: CV Q 15 minute checks Restart home meds and titrate back to home doses Increase to Bupropion Xl 300 Mg Continue Cariprazine 1.5 mg; titrate to Cariprazine Hcl 3 Mg BEDTIME [facility] Increase to Divalproex Sodium ER 750 mg, then 1000 mg; retitrate to 1500mg (or 1725mg?? need to confirm home dose) Continue Donepezil HCl (Donepezil Hcl 10 Mg Tablet) 10 mg PO BEDTIME [facility] Continue Melatonin (Melatonin 3 Mg Tablet) 3 mg PO BEDTIME [facility] Depakote level for June 17 and adjust Depakote accordingly. We are going to keep Depakote a 1000 mg p.o. q.h.s. since her Depakote level on June 17 was 76.5 we are going to repeat next week. Reason for continued inpatient stay Substantial Risk for: inability to function, rapid decompensation and med/psych decompensation Time Spent With Patient Time: Total time managing care of this patient today __20__ minutes.
[2023-06-18] MEDS: Acetaminophen 325 MG TABLET 650 MG PO (16:10)
[2023-06-18 20:36] VITALS: BP 135/65; PULSE 79; RESP 18; TEMP 36.4; O2SAT 99
[2023-06-18] MEDS: Melatonin 3 MG TABLET PO (20:39)
[2023-06-18] MEDS: Donepezil HCl 10 MG TABLET PO (20:39)
[2023-06-18] MEDS: Divalproex Sodium Sprinkles 125 MG CAP.DR.SPR 1000 MG PO (20:39)
[2023-06-18] MEDS: Cariprazine HCl 3 MG CAPSULE PO (20:39)
[2023-06-19 08:36] VITALS: BP 149/83; PULSE 79; RESP 16; TEMP 36.9; O2SAT 99
[2023-06-19] MEDS: buPROPion HCl XL 300 MG TAB.ER.24H PO (09:42)
--- NOTE | 2023-06-19 12:42 | HO.PSYCHPN ---
Subjective Subjective Date of Service: 06/19/23 Reason For Visit: Dysregulated Subjective Notes: Conditional Voluntary Interim History: The nursing staff reported the patient had been pleasant cooperative she slept 6 hours she had been social and attending to groups. No evidence of mg. The manager social media reported the assisted living facility review her meals did not come yesterday to assess her. On interview the patient denies new symptoms, she agreed to have a new Depakote level for next Thursday. We will keep her on Depakote a 1000 mg p.o. q.h.s. Mental Status Exam Mental Status Exam Patient Appearance: Well Grooomed and Appropriate Patient Orientation: Person and Situation Level of Consciousness: Awake and Appropriate Patient Behavior: Guarded and Passive Mood Description: Withdrawn Affect Description: Constricted Patient Cognition Impaired: Yes Ability to Follow Directions: Good Speech Pattern: Clear Hallucinations: None Delusions: Not Present Thought Process: Distracted and Goal Oriented Thought Content: positive for [place] and positive for Poverty of Content Judgement: Fair Diagnostics Vital Signs (24Hr): Vital Signs - 24 hr 06/18/23 20:36 06/19/23 08:36 Temperature 97.6 F 98.4 F Pulse Rate 79 79 Respiratory Rate 18 16 Blood Pressure 135/65 149/83 H Pulse Oximetry 99 99 Oxygen Delivery Method Room Air Room Air BMI result Body Mass Index 24.9 Labs 06/10/23 16:48 06/10/23 16:48 Medications Medications Current Medications Acetaminophen (Acetaminophen 325 Mg Tablet) 650 mg PO Q6H PRN PRN Reason: Headache/Pain Mild Scale (1-3) Last Admin: 06/18/23 16:10 Dose: 650 mg Al Hydroxide/Mg Hydroxide (Magnesium Hydrox/Alum Hydrox 30 Ml Oral.Susp) 30 ml PO Q6H PRN PRN Reason: Heartburn/Nausea Bupropion HCl (Bupropion Hcl Xl 300 Mg Tab.Er.24h) 300 mg PO DAILY [facility] Last Admin: 06/19/23 09:42 Dose: 300 mg Cariprazine (Cariprazine Hcl 3 Mg Capsule) 3 mg PO BEDTIME [facility] Last Admin: 06/18/23 20:39 Dose: 3 mg Divalproex Sodium (Divalproex Sodium Sprinkles 125 Mg Jordi.) 1,000 mg PO BEDTIME [facility] Last Admin: 06/18/23 20:39 Dose: 1,000 mg Donepezil HCl (Donepezil Hcl 10 Mg Tablet) 10 mg PO BEDTIME [facility] Last Admin: 06/18/23 20:39 Dose: 10 mg Lactic Acid (Ammonium Lactate 12 % Lotion 226 Gm Bottle) 1 appl TOPICAL BID PRN; Protocol PRN Reason: dry skin Last Admin: 06/16/23 23:38 Dose: 1 appl Magnesium Hydroxide (Milk Of Magnesia 30 Ml Oral.Susp) 30 ml PO DAILY PRN PRN Reason: Constipation Melatonin (Melatonin 3 Mg Tablet) 3 mg PO BEDTIME [facility] Last Admin: 06/18/23 20:39 Dose: 3 mg Trazodone HCl (Trazodone Hcl 25 Mg Halftab) 25 mg PO BEDTIME MRX1 PRN PRN Reason: Insomnia Last Admin: 06/14/23 20:51 Dose: 25 mg Allergies Allergies Allergy/AdvReac Type Severity Reaction Status Date / Time No Known Allergies Allergy Verified 06/10/23 16:06 Assessment & Plan Assessment & Plan (1) Bipolar disorder, most recent episode depressed: Status: Acute Code(s): F31.30 - Bipolar disorder, current episode depressed, mild or moderate severity, unspecified Plan [email or web address] Continuent is a 67-year-old female with history of bipolar disorder II, PTSD, last psychiatric admission February 2023 who presents for worsening depression and face of going off her medications. Patient is somewhat of a poor historian due to significant psychomotor retardation from depression. She says she was stable after being discharged in February but at some point her mood went a little down and for some reason she can not describe, she decided to go off all of her medications. She said soon afterwards she got a deep depression.. And has since had no motivation, would just lay in bed, increased guilty feelings, poor concentration, low energy, low appetite. Denies any SI; denies any AVH. Denies any recent hypomanic episodes. She said she knows she should have stayed on her medications and wish she did. She does not usually let her depression go this long before getting back on them. Patient would like to be restarted on home medications. Patient denies any dysuria, urinary frequency or urgency Hospital course: 06/12 patient reports she has feeling a little better now that she is back on her medications and she is indeed more interactive and with some improved emotional expression. She would like to continue having her home meds titrated back to home dose. Discussed transitioning to Geriatric unit to which she agrees 06/13/23: Continue Rx. 06/14/23: Continue Rx. Plan: CV Q 15 minute checks Restart home meds and titrate back to home doses Increase to Bupropion Xl 300 Mg Continue Cariprazine 1.5 mg; titrate to Cariprazine Hcl 3 Mg BEDTIME [facility] Increase to Divalproex Sodium ER 750 mg, then 1000 mg; retitrate to 1500mg (or 1725mg?? need to confirm home dose) Continue Donepezil HCl (Donepezil Hcl 10 Mg Tablet) 10 mg PO BEDTIME [facility] Continue Melatonin (Melatonin 3 Mg Tablet) 3 mg PO BEDTIME [facility] Depakote level for June 17 and adjust Depakote accordingly. We are going to keep Depakote a 1000 mg p.o. q.h.s. since her Depakote level on June 17 was 76.5 we are going to repeat next week. Reason for continued inpatient stay Substantial Risk for: inability to function, rapid decompensation and med/psych decompensation Time Spent With Patient Time: Total time managing care of this patient today __20__ minutes.
[2023-06-19] MEDS: Ammonium Lactate 12 % Lotion 226 GM BOTTLE 1 APPL TOPICAL (12:54)
[2023-06-19] MEDS: Acetaminophen 325 MG TABLET 650 MG PO (15:26)
[2023-06-19 20:11] VITALS: BP 144/89; PULSE 81; RESP 16; TEMP 36.2; O2SAT 99
[2023-06-19] MEDS: Donepezil HCl 10 MG TABLET PO (20:33)
[2023-06-19] MEDS: Divalproex Sodium Sprinkles 125 MG CAP.DR.SPR 1000 MG PO (20:33)
[2023-06-19] MEDS: Cariprazine HCl 3 MG CAPSULE PO (20:33)
[2023-06-19] MEDS: Melatonin 3 MG TABLET PO (20:34)
[2023-06-20 08:18] VITALS: BP 136/77; PULSE 76; RESP 17; TEMP 36.3; O2SAT 99
[2023-06-20] MEDS: buPROPion HCl XL 300 MG TAB.ER.24H PO (08:20)
--- NOTE | 2023-06-20 11:38 | P.PNPSI_ITS ---
Subjective Subjective Date of Service: 06/20/23 Reason For Visit: Dysregulated Subjective Notes: Conditional Voluntary Interim History: Patient was seen and discussed in rounds today. Records and plans were reviewed. She has been stable and continues to be improved. She is tolerating the Depakote with no side effects. Possible discharge next week. No changes were made today Review of Systems Review of Systems Yes all other systems are reviewed and are negative Mental Status Exam Mental Status Exam Patient Appearance: Well Grooomed and Appropriate Patient Orientation: Person and Situation Level of Consciousness: Awake and Appropriate Patient Behavior: Guarded and Passive Mood Description: Withdrawn Affect Description: Constricted Patient Cognition Impaired: Yes Ability to Follow Directions: Good Speech Pattern: Clear Hallucinations: None Delusions: Not Present Thought Process: Distracted and Goal Oriented Thought Content: positive for [place] and positive for Poverty of Content Judgement: Fair Diagnostics Vital Signs (24Hr): Vital Signs - 24 hr 06/19/23 20:11 06/20/23 08:18 Temperature 97.2 F 97.4 F Pulse Rate 81 76 Respiratory Rate 16 17 Blood Pressure 144/89 H 136/77 Pulse Oximetry 99 99 Oxygen Delivery Method Room Air Room Air BMI result Body Mass Index 24.9 Labs 06/10/23 16:48 06/10/23 16:48 Medications Medications Current Medications Acetaminophen (Acetaminophen 325 Mg Tablet) 650 mg PO Q6H PRN PRN Reason: Headache/Pain Mild Scale (1-3) Last Admin: 06/19/23 15:26 Dose: 650 mg Al Hydroxide/Mg Hydroxide (Magnesium Hydrox/Alum Hydrox 30 Ml Oral.Susp) 30 ml PO Q6H PRN PRN Reason: Heartburn/Nausea Bupropion HCl (Bupropion Hcl Xl 300 Mg Tab.Er.24h) 300 mg PO DAILY [facility] Last Admin: 06/20/23 08:20 Dose: 300 mg Cariprazine (Cariprazine Hcl 3 Mg Capsule) 3 mg PO BEDTIME [facility] Last Admin: 06/19/23 20:33 Dose: 3 mg Divalproex Sodium (Divalproex Sodium Sprinkles 125 Mg Cap.) 1,000 mg PO BEDTIME [facility] Last Admin: 06/19/23 20:33 Dose: 1,000 mg Donepezil HCl (Donepezil Hcl 10 Mg Tablet) 10 mg PO BEDTIME [facility] Last Admin: 06/19/23 20:33 Dose: 10 mg Lactic Acid (Ammonium Lactate 12 % Lotion 226 Gm Bottle) 1 appl TOPICAL BID PRN; Protocol PRN Reason: dry skin Last Admin: 06/19/23 12:54 Dose: 1 appl Magnesium Hydroxide (Milk Of Magnesia 30 Ml Oral.Susp) 30 ml PO DAILY PRN PRN Reason: Constipation Melatonin (Melatonin 3 Mg Tablet) 3 mg PO BEDTIME [facility] Last Admin: 06/19/23 20:34 Dose: 3 mg Trazodone HCl (Trazodone Hcl 25 Mg Halftab) 25 mg PO BEDTIME MRX1 PRN PRN Reason: Insomnia Last Admin: 06/14/23 20:51 Dose: 25 mg Allergies Allergies Allergy/AdvReac Type Severity Reaction Status Date / Time No Known Allergies Allergy Verified 06/10/23 16:06 Assessment & Plan Assessment & Plan (1) Bipolar disorder, most recent episode depressed: Status: Acute Code(s): F31.30 - Bipolar disorder, current episode depressed, mild or moderate severity, unspecified Plan Patie24 Continuent is a 67-year-old female with history of bipolar disorder II, PTSD, last psychiatric admission February 2023 who presents for worsening depression and face of going off her medications. Patient is somewhat of a poor historian due to significant psychomotor retardation from depression. She says she was stable after being discharged in February but at some point her mood went a little down and for some reason she can not describe, she decided to go off all of her medications. She said soon afterwards she got a deep depression.. And has since had no motivation, would just lay in bed, increased guilty feelings, poor concentration, low energy, low appetite. Denies any SI; denies any AVH. Denies any recent hypomanic episodes. She said she knows she should have stayed on her medications and wish she did. She does not usually let her depression go this long before getting back on them. Patient would like to be restarted on home medications. Patient denies any dysuria, urinary frequency or urgency Hospital course: 06/12 patient reports she has feeling a little better now that she is back on her medications and she is indeed more interactive and with some improved emotional expression. She would like to continue having her home meds titrated back to home dose. Discussed transitioning to Geriatric unit to which she agrees 06/13/23: Continue Rx. 06/14/23: Continue Rx. 06/20: Continue current regimen and plans Plan: CV Q 15 minute checks Restart home meds and titrate back to home doses Increase to Bupropion Xl 300 Mg Continue Cariprazine 1.5 mg; titrate to Cariprazine Hcl 3 Mg BEDTIME [facility] Increase to Divalproex Sodium ER 750 mg, then 1000 mg; retitrate to 1500mg (or 1725mg?? need to confirm home dose) Continue Donepezil HCl (Donepezil Hcl 10 Mg Tablet) 10 mg PO BEDTIME [facility] Continue Melatonin (Melatonin 3 Mg Tablet) 3 mg PO BEDTIME [facility] Depakote level for June 17 and adjust Depakote accordingly. We are going to keep Depakote a 1000 mg p.o. q.h.s. since her Depakote level on June 17 was 76.5 we are going to repeat next week. Reason for continued inpatient stay Substantial Risk for: med/psych decompensation Time Spent With Patient Time: Total time managing care of this patient today ____ minutes.
[2023-06-20 20:00] VITALS: BP 132/72; PULSE 83; RESP 16; TEMP 36.1; O2SAT 99
[2023-06-20] MEDS: Divalproex Sodium Sprinkles 125 MG CAP.DR.SPR 1000 MG PO (20:42)
[2023-06-20] MEDS: Cariprazine HCl 3 MG CAPSULE PO (20:42)
[2023-06-20] MEDS: Donepezil HCl 10 MG TABLET PO (20:42)
[2023-06-20] MEDS: Melatonin 3 MG TABLET PO (20:43)
[2023-06-21 08:25] VITALS: BP 140/62; PULSE 83; RESP 17; TEMP 36.2; O2SAT 100
[2023-06-21] MEDS: buPROPion HCl XL 300 MG TAB.ER.24H PO (08:27)
--- NOTE | 2023-06-21 10:31 | P.PNPSI_ITS ---
Subjective Subjective Date of Service: 06/21/23 Reason For Visit: Dysregulated Subjective Notes: Conditional Voluntary Interim History: Patient was seen and discussed in rounds today. Records and plans were reviewed. She is doing fairly well and has been relatively stable. No changes reported. No behavioral issues. No dangerous behaviors. Eating and sleeping well. Denies any side effects. No changes were made Review of Systems Review of Systems Yes all other systems are reviewed and are negative Mental Status Exam Mental Status Exam Patient Appearance: Well Grooomed and Appropriate Patient Orientation: Person and Situation Level of Consciousness: Awake and Appropriate Patient Behavior: Guarded and Passive Mood Description: Withdrawn Affect Description: Constricted Patient Cognition Impaired: Yes Ability to Follow Directions: Good Speech Pattern: Clear Hallucinations: None Delusions: Not Present Thought Process: Distracted and Goal Oriented Thought Content: positive for [place] and positive for Poverty of Content Judgement: Fair Diagnostics Vital Signs (24Hr): Vital Signs - 24 hr 06/20/23 20:00 06/21/23 08:25 Temperature 96.9 F 97.2 F Pulse Rate 83 83 Respiratory Rate 16 17 Blood Pressure 132/72 140/62 H Pulse Oximetry 99 100 Oxygen Delivery Method Room Air Room Air BMI result Body Mass Index 24.9 Labs 06/10/23 16:48 06/10/23 16:48 Medications Medications Current Medications Acetaminophen (Acetaminophen 325 Mg Tablet) 650 mg PO Q6H PRN PRN Reason: Headache/Pain Mild Scale (1-3) Last Admin: 06/19/23 15:26 Dose: 650 mg Al Hydroxide/Mg Hydroxide (Magnesium Hydrox/Alum Hydrox 30 Ml Oral.Susp) 30 ml PO Q6H PRN PRN Reason: Heartburn/Nausea Bupropion HCl (Bupropion Hcl Xl 300 Mg Tab.Er.24h) 300 mg PO DAILY [facility] Last Admin: 06/21/23 08:27 Dose: 300 mg Cariprazine (Cariprazine Hcl 3 Mg Capsule) 3 mg PO BEDTIME [facility] Last Admin: 06/20/23 20:42 Dose: 3 mg Divalproex Sodium (Divalproex Sodium Sprinkles 125 Mg Cap.DrLuna) 1,000 mg PO BEDTIME [facility] Last Admin: 06/20/23 20:42 Dose: 1,000 mg Donepezil HCl (Donepezil Hcl 10 Mg Tablet) 10 mg PO BEDTIME [facility] Last Admin: 06/20/23 20:42 Dose: 10 mg Lactic Acid (Ammonium Lactate 12 % Lotion 226 Gm Bottle) 1 appl TOPICAL BID PRN; Protocol PRN Reason: dry skin Last Admin: 06/19/23 12:54 Dose: 1 appl Magnesium Hydroxide (Milk Of Magnesia 30 Ml Oral.Susp) 30 ml PO DAILY PRN PRN Reason: Constipation Melatonin (Melatonin 3 Mg Tablet) 3 mg PO BEDTIME [facility] Last Admin: 06/20/23 20:43 Dose: 3 mg Trazodone HCl (Trazodone Hcl 25 Mg Halftab) 25 mg PO BEDTIME MRX1 PRN PRN Reason: Insomnia Last Admin: 06/14/23 20:51 Dose: 25 mg Allergies Allergies Allergy/AdvReac Type Severity Reaction Status Date / Time No Known Allergies Allergy Verified 06/10/23 16:06 Assessment & Plan Assessment & Plan (1) Bipolar disorder, most recent episode depressed: Status: Acute Code(s): F31.30 - Bipolar disorder, current episode depressed, mild or moderate severity, unspecified Plan Patie24 Continuent is a 67-year-old female with history of bipolar disorder II, PTSD, last psychiatric admission February 2023 who presents for worsening depression and face of going off her medications. Patient is somewhat of a poor historian due to significant psychomotor retardation from depression. She says she was stable after being discharged in February but at some point her mood went a little down and for some reason she can not describe, she decided to go off all of her medications. She said soon afterwards she got a deep depression.. And has since had no motivation, would just lay in bed, increased guilty feelings, poor concentration, low energy, low appetite. Denies any SI; denies any AVH. Denies any recent hypomanic episodes. She said she knows she should have stayed on her medications and wish she did. She does not usually let her depression go this long before getting back on them. Patient would like to be restarted on home medications. Patient denies any dysuria, urinary frequency or urgency Hospital course: 06/12 patient reports she has feeling a little better now that she is back on her medications and she is indeed more interactive and with some improved emotional expression. She would like to continue having her home meds titrated back to home dose. Discussed transitioning to Geriatric unit to which she agrees 06/13/23: Continue Rx. 06/14/23: Continue Rx. 06/20: Continue current regimen and plans 06/21: Continue current regimen and plans Plan: CV Q 15 minute checks Restart home meds and titrate back to home doses Increase to Bupropion Xl 300 Mg Continue Cariprazine 1.5 mg; titrate to Cariprazine Hcl 3 Mg BEDTIME [facility] Increase to Divalproex Sodium ER 750 mg, then 1000 mg; retitrate to 1500mg (or 1725mg?? need to confirm home dose) Continue Donepezil HCl (Donepezil Hcl 10 Mg Tablet) 10 mg PO BEDTIME [facility] Continue Melatonin (Melatonin 3 Mg Tablet) 3 mg PO BEDTIME [facility] Depakote level for June 17 and adjust Depakote accordingly. We are going to keep Depakote a 1000 mg p.o. q.h.s. since her Depakote level on June 17 was 76.5 we are going to repeat next week. Reason for continued inpatient stay Substantial Risk for: med/psych decompensation Time Spent With Patient Time: Total time managing care of this patient today ____ minutes.
[2023-06-21 18:00] VITALS: BP 120/67; PULSE 85; RESP 16; TEMP 35.6; O2SAT 100
[2023-06-21] MEDS: Donepezil HCl 10 MG TABLET PO (20:06)
[2023-06-21] MEDS: Melatonin 3 MG TABLET PO (20:06)
[2023-06-21] MEDS: Divalproex Sodium Sprinkles 125 MG CAP.DR.SPR 1000 MG PO (20:07)
[2023-06-21] MEDS: Cariprazine HCl 3 MG CAPSULE PO (20:08)
[2023-06-22 08:00] VITALS: BP 134/82; PULSE 77; RESP 16; TEMP 36; O2SAT 100
[2023-06-22] MEDS: buPROPion HCl XL 300 MG TAB.ER.24H PO (08:11)
--- NOTE | 2023-06-22 14:57 | HO.PSYCHPN ---
Subjective Subjective Date of Service: 06/22/23 Reason For Visit: Dysregulated Subjective Notes: Conditional Voluntary Interim History: Patient was seen and discussed in rounds today. Records and plans were reviewed. She is stable and continues to be improved. No complaints or side effects. Sleeping and eating well. She is social and interactive. No behavioral changes reported. No changes were made Review of Systems Review of Systems Yes all other systems are reviewed and are negative Mental Status Exam Mental Status Exam Patient Appearance: Well Grooomed and Appropriate Patient Orientation: Person and Situation Level of Consciousness: Awake and Appropriate Patient Behavior: Guarded and Passive Mood Description: Withdrawn Affect Description: Constricted Patient Cognition Impaired: Yes Ability to Follow Directions: Good Speech Pattern: Clear Hallucinations: None Delusions: Not Present Thought Process: Distracted and Goal Oriented Thought Content: positive for [place] and positive for Poverty of Content Judgement: Fair Diagnostics Vital Signs (24Hr): Vital Signs - 24 hr 06/21/23 18:00 06/22/23 08:00 Temperature 96.1 F L 96.8 F Pulse Rate 85 77 Respiratory Rate 16 16 Blood Pressure 120/67 134/82 Pulse Oximetry 100 100 Oxygen Delivery Method Room Air Room Air BMI result Body Mass Index 24.9 Labs 06/10/23 16:48 06/10/23 16:48 Medications Medications Current Medications Acetaminophen (Acetaminophen 325 Mg Tablet) 650 mg PO Q6H PRN PRN Reason: Headache/Pain Mild Scale (1-3) Last Admin: 06/19/23 15:26 Dose: 650 mg Al Hydroxide/Mg Hydroxide (Magnesium Hydrox/Alum Hydrox 30 Ml Oral.Susp) 30 ml PO Q6H PRN PRN Reason: Heartburn/Nausea Bupropion HCl (Bupropion Hcl Xl 300 Mg Tab.Er.24h) 300 mg PO DAILY [facility] Last Admin: 06/22/23 08:11 Dose: 300 mg Cariprazine (Cariprazine Hcl 3 Mg Capsule) 3 mg PO BEDTIME [facility] Last Admin: 06/21/23 20:08 Dose: 3 mg Divalproex Sodium (Divalproex Sodium Sprinkles 125 Mg Cap.) 1,000 mg PO BEDTIME [facility] Last Admin: 06/21/23 20:07 Dose: 1,000 mg Donepezil HCl (Donepezil Hcl 10 Mg Tablet) 10 mg PO BEDTIME [facility] Last Admin: 06/21/23 20:06 Dose: 10 mg Lactic Acid (Ammonium Lactate 12 % Lotion 226 Gm Bottle) 1 appl TOPICAL BID PRN; Protocol PRN Reason: dry skin Last Admin: 06/19/23 12:54 Dose: 1 appl Magnesium Hydroxide (Milk Of Magnesia 30 Ml Oral.Susp) 30 ml PO DAILY PRN PRN Reason: Constipation Melatonin (Melatonin 3 Mg Tablet) 3 mg PO BEDTIME [facility] Last Admin: 06/21/23 20:06 Dose: 3 mg Trazodone HCl (Trazodone Hcl 25 Mg Halftab) 25 mg PO BEDTIME MRX1 PRN PRN Reason: Insomnia Last Admin: 06/14/23 20:51 Dose: 25 mg Allergies Allergies Allergy/AdvReac Type Severity Reaction Status Date / Time No Known Allergies Allergy Verified 06/10/23 16:06 Assessment & Plan Assessment & Plan (1) Bipolar disorder, most recent episode depressed: Status: Acute Code(s): F31.30 - Bipolar disorder, current episode depressed, mild or moderate severity, unspecified Plan [email or web address] Continuent is a 67-year-old female with history of bipolar disorder II, PTSD, last psychiatric admission February 2023 who presents for worsening depression and face of going off her medications. Patient is somewhat of a poor historian due to significant psychomotor retardation from depression. She says she was stable after being discharged in February but at some point her mood went a little down and for some reason she can not describe, she decided to go off all of her medications. She said soon afterwards she got a deep depression.. And has since had no motivation, would just lay in bed, increased guilty feelings, poor concentration, low energy, low appetite. Denies any SI; denies any AVH. Denies any recent hypomanic episodes. She said she knows she should have stayed on her medications and wish she did. She does not usually let her depression go this long before getting back on them. Patient would like to be restarted on home medications. Patient denies any dysuria, urinary frequency or urgency Hospital course: 06/12 patient reports she has feeling a little better now that she is back on her medications and she is indeed more interactive and with some improved emotional expression. She would like to continue having her home meds titrated back to home dose. Discussed transitioning to Geriatric unit to which she agrees 06/13/23: Continue Rx. 06/14/23: Continue Rx. 06/20: Continue current regimen and plans 06/21: Continue current regimen and plans 06/22: Continue current plans and regimen Plan: CV Q 15 minute checks Restart home meds and titrate back to home doses Increase to Bupropion Xl 300 Mg Continue Cariprazine 1.5 mg; titrate to Cariprazine Hcl 3 Mg BEDTIME [facility] Increase to Divalproex Sodium ER 750 mg, then 1000 mg; retitrate to 1500mg (or 1725mg?? need to confirm home dose) Continue Donepezil HCl (Donepezil Hcl 10 Mg Tablet) 10 mg PO BEDTIME [facility] Continue Melatonin (Melatonin 3 Mg Tablet) 3 mg PO BEDTIME [facility] Depakote level for June 17 and adjust Depakote accordingly. We are going to keep Depakote a 1000 mg p.o. q.h.s. since her Depakote level on June 17 was 76.5 we are going to repeat next week. Reason for continued inpatient stay Substantial Risk for: med/psych decompensation Time Spent With Patient Time: Total time managing care of this patient today ____ minutes.
[2023-06-22 18:00] VITALS: BP 153/74; PULSE 82; RESP 18; TEMP 36.3; O2SAT 100
[2023-06-22] MEDS: Cariprazine HCl 3 MG CAPSULE PO (21:32)
[2023-06-22] MEDS: Melatonin 3 MG TABLET PO (21:32)
[2023-06-22] MEDS: Divalproex Sodium Sprinkles 125 MG CAP.DR.SPR 1000 MG PO (21:32)
[2023-06-22] MEDS: traZODone HCL 25 MG HALFTAB PO (21:32)
[2023-06-22] MEDS: Donepezil HCl 10 MG TABLET PO (21:32)
[2023-06-23 07:45] LABS: Estimated Average Glucose 100 mg/dL; Hemoglobin A1c % 5.1 % (<6.0)
[2023-06-23 07:50] VITALS: BP 152/77; PULSE 79; RESP 15; TEMP 36.6; O2SAT 97
[2023-06-23 07:50] LABS: Valproate 81.5 mcg/mL (50.0-100.0)
[2023-06-23] MEDS: buPROPion HCl XL 300 MG TAB.ER.24H PO (08:29)
--- NOTE | 2023-06-23 13:35 | P.PNPSI_ITS ---
Subjective Subjective Date of Service: 06/23/23 Reason For Visit: Dysregulated Subjective Notes: Conditional Voluntary Interim History: The nursing staff reported the patient slept 4 hours but her Depakote level was 81.5 today. The social insurance specialist reported that [facility] accepted her but she had not been financially cleared. On interview the patient denies new symptoms, waiting for placement. Mental Status Exam Mental Status Exam Patient Appearance: Well Grooomed and Appropriate Patient Orientation: Person and Situation Level of Consciousness: Awake and Appropriate Patient Behavior: Guarded and Cooperative Mood Description: Calm Affect Description: Constricted Patient Cognition Impaired: Yes Ability to Follow Directions: Good Speech Pattern: Clear Hallucinations: None Delusions: Not Present Thought Process: Distracted and Evasive Thought Content: positive for [place] and positive for Poverty of Content Judgement: Poor Diagnostics Vital Signs (24Hr): Vital Signs - 24 hr 06/22/23 18:00 06/23/23 07:50 Temperature 97.3 F 97.9 F Pulse Rate 82 79 Respiratory Rate 18 15 Blood Pressure 153/74 H 152/77 H Pulse Oximetry 100 97 Oxygen Delivery Method Room Air Room Air BMI result Body Mass Index 24.9 Labs 06/10/23 16:48 06/10/23 16:48 Labs: Laboratory Results - last 48 hr 06/23/23 07:25 Estimat Average Glucose 100 Hemoglobin A1c % 5.1 Valproic Acid 81.5 Medications Medications Current Medications Acetaminophen (Acetaminophen 325 Mg Tablet) 650 mg PO Q6H PRN PRN Reason: Headache/Pain Mild Scale (1-3) Last Admin: 06/19/23 15:26 Dose: 650 mg Al Hydroxide/Mg Hydroxide (Magnesium Hydrox/Alum Hydrox 30 Ml Oral.Susp) 30 ml PO Q6H PRN PRN Reason: Heartburn/Nausea Bupropion HCl (Bupropion Hcl Xl 300 Mg Tab.Er.24h) 300 mg PO DAILY [facility] Last Admin: 06/23/23 08:29 Dose: 300 mg Cariprazine (Cariprazine Hcl 3 Mg Capsule) 3 mg PO BEDTIME [facility] Last Admin: 06/22/23 21:32 Dose: 3 mg Divalproex Sodium (Divalproex Sodium Sprinkles 125 Mg Cap.) 1,000 mg PO BEDTIME [facility] Last Admin: 06/22/23 21:32 Dose: 1,000 mg Donepezil HCl (Donepezil Hcl 10 Mg Tablet) 10 mg PO BEDTIME [facility] Last Admin: 06/22/23 21:32 Dose: 10 mg Lactic Acid (Ammonium Lactate 12 % Lotion 226 Gm Bottle) 1 appl TOPICAL BID PRN; Protocol PRN Reason: dry skin Last Admin: 06/19/23 12:54 Dose: 1 appl Magnesium Hydroxide (Milk Of Magnesia 30 Ml Oral.Susp) 30 ml PO DAILY PRN PRN Reason: Constipation Melatonin (Melatonin 3 Mg Tablet) 3 mg PO BEDTIME [facility] Last Admin: 06/22/23 21:32 Dose: 3 mg Trazodone HCl (Trazodone Hcl 25 Mg Halftab) 25 mg PO BEDTIME MRX1 PRN PRN Reason: Insomnia Last Admin: 06/22/23 21:32 Dose: 25 mg Allergies Allergies Allergy/AdvReac Type Severity Reaction Status Date / Time No Known Allergies Allergy Verified 06/10/23 16:06 Assessment & Plan Assessment & Plan (1) Bipolar disorder, most recent episode depressed: Status: Acute Code(s): F31.30 - Bipolar disorder, current episode depressed, mild or moderate severity, unspecified Plan [email or web address] Continuent is a 67-year-old female with history of bipolar disorder II, PTSD, last psychiatric admission February 2023 who presents for worsening depression and face of going off her medications. Patient is somewhat of a poor historian due to significant psychomotor retardation from depression. She says she was stable after being discharged in February but at some point her mood went a little down and for some reason she can not describe, she decided to go off all of her medications. She said soon afterwards she got a deep depression.. And has since had no motivation, would just lay in bed, increased guilty feelings, poor concentration, low energy, low appetite. Denies any SI; denies any AVH. Denies any recent hypomanic episodes. She said she knows she should have stayed on her medications and wish she did. She does not usually let her depression go this long before getting back on them. Patient would like to be restarted on home medications. Patient denies any dysuria, urinary frequency or urgency Hospital course: 06/12 patient reports she has feeling a little better now that she is back on her medications and she is indeed more interactive and with some improved emotional expression. She would like to continue having her home meds titrated back to home dose. Discussed transitioning to Geriatric unit to which she agrees 06/13/23: Continue Rx. 06/14/23: Continue Rx. 06/20: Continue current regimen and plans 06/21: Continue current regimen and plans 06/22: Continue current plans and regimen Plan: CV Q 15 minute checks Restart home meds and titrate back to home doses Increase to Bupropion Xl 300 Mg Continue Cariprazine 1.5 mg; titrate to Cariprazine Hcl 3 Mg BEDTIME [facility] Increase to Divalproex Sodium ER 750 mg, then 1000 mg; retitrate to 1500mg (or 1725mg?? need to confirm home dose) Continue Donepezil HCl (Donepezil Hcl 10 Mg Tablet) 10 mg PO BEDTIME [facility] Continue Melatonin (Melatonin 3 Mg Tablet) 3 mg PO BEDTIME [facility] Depakote level for June 17 and adjust Depakote accordingly. We are going to keep Depakote a 1000 mg p.o. q.h.s. since her Depakote level on June 17 was 76.5 we are going to repeat next week. On June 23 her Depakote level was 81.6. Reason for continued inpatient stay Substantial Risk for: inability to function, rapid decompensation and med/psych decompensation Time Spent With Patient Time: Total time managing care of this patient today __20__ minutes.
[2023-06-23 18:00] VITALS: BP 144/77; PULSE 79; RESP 16; TEMP 35.7; O2SAT 100
[2023-06-23] MEDS: Cariprazine HCl 3 MG CAPSULE PO (21:01)
[2023-06-23] MEDS: traZODone HCL 25 MG HALFTAB PO (21:01)
[2023-06-23] MEDS: Melatonin 3 MG TABLET PO (21:01)
[2023-06-23] MEDS: Donepezil HCl 10 MG TABLET PO (21:01)
[2023-06-23] MEDS: Divalproex Sodium Sprinkles 125 MG CAP.DR.SPR 1000 MG PO (21:02)
[2023-06-24 08:00] VITALS: BP 121/65; PULSE 80; RESP 18; TEMP 36.6; O2SAT 100
[2023-06-24] MEDS: buPROPion HCl XL 300 MG TAB.ER.24H PO (08:57)
--- NOTE | 2023-06-24 12:18 | HO.PSYCHPN ---
Subjective Subjective Date of Service: 06/24/23 Reason For Visit: Dysregulated Subjective Notes: Conditional Voluntary Interim History: The nursing staff reported the patient had been compliant with treatment, she is waiting for placement. Apparently the facility that she wants to go cause like 5000 dollars per month that she can not and she had been unrealistic in her expectations. On interview the patient denies new symptoms, waiting for placement no evidence of mg. Mental Status Exam Mental Status Exam Patient Appearance: Well Grooomed and Appropriate Patient Orientation: Person, Place and Situation Level of Consciousness: Awake and Appropriate Patient Behavior: Guarded and Passive Mood Description: Withdrawn Affect Description: Constricted Patient Cognition Impaired: Yes Ability to Follow Directions: Good Speech Pattern: Clear Hallucinations: None Delusions: Not Present Thought Process: Distracted Thought Content: positive for [place] and positive for Poverty of Content Judgement: Fair Diagnostics Vital Signs (24Hr): Vital Signs - 24 hr 06/23/23 18:00 06/24/23 08:00 Temperature 96.3 F L 97.9 F Pulse Rate 79 80 Respiratory Rate 16 18 Blood Pressure 144/77 H 121/65 Pulse Oximetry 100 100 Oxygen Delivery Method Room Air Room Air BMI result Body Mass Index 24.9 Labs 06/10/23 16:48 06/10/23 16:48 Labs: Laboratory Results - last 48 hr 06/23/23 07:25 Estimat Average Glucose 100 Hemoglobin A1c % 5.1 Valproic Acid 81.5 Medications Medications Current Medications Acetaminophen (Acetaminophen 325 Mg Tablet) 650 mg PO Q6H PRN PRN Reason: Headache/Pain Mild Scale (1-3) Last Admin: 06/19/23 15:26 Dose: 650 mg Al Hydroxide/Mg Hydroxide (Magnesium Hydrox/Alum Hydrox 30 Ml Oral.Susp) 30 ml PO Q6H PRN PRN Reason: Heartburn/Nausea Bupropion HCl (Bupropion Hcl Xl 300 Mg Tab.Er.24h) 300 mg PO DAILY [facility] Last Admin: 06/24/23 08:57 Dose: 300 mg Cariprazine (Cariprazine Hcl 3 Mg Capsule) 3 mg PO BEDTIME [facility] Last Admin: 06/23/23 21:01 Dose: 3 mg Divalproex Sodium (Divalproex Sodium Sprinkles 125 Mg Cap.) 1,000 mg PO BEDTIME [facility] Last Admin: 06/23/23 21:02 Dose: 1,000 mg Donepezil HCl (Donepezil Hcl 10 Mg Tablet) 10 mg PO BEDTIME [facility] Last Admin: 06/23/23 21:01 Dose: 10 mg Lactic Acid (Ammonium Lactate 12 % Lotion 226 Gm Bottle) 1 appl TOPICAL BID PRN; Protocol PRN Reason: dry skin Last Admin: 06/19/23 12:54 Dose: 1 appl Magnesium Hydroxide (Milk Of Magnesia 30 Ml Oral.Susp) 30 ml PO DAILY PRN PRN Reason: Constipation Melatonin (Melatonin 3 Mg Tablet) 3 mg PO BEDTIME [facility] Last Admin: 06/23/23 21:01 Dose: 3 mg Trazodone HCl (Trazodone Hcl 25 Mg Halftab) 25 mg PO BEDTIME MRX1 PRN PRN Reason: Insomnia Last Admin: 06/23/23 21:01 Dose: 25 mg Allergies Allergies Allergy/AdvReac Type Severity Reaction Status Date / Time No Known Allergies Allergy Verified 06/10/23 16:06 Assessment & Plan Assessment & Plan (1) Bipolar disorder, most recent episode depressed: Status: Acute Code(s): F31.30 - Bipolar disorder, current episode depressed, mild or moderate severity, unspecified Plan [email or web address] Continuent is a 67-year-old female with history of bipolar disorder II, PTSD, last psychiatric admission February 2023 who presents for worsening depression and face of going off her medications. Patient is somewhat of a poor historian due to significant psychomotor retardation from depression. She says she was stable after being discharged in February but at some point her mood went a little down and for some reason she can not describe, she decided to go off all of her medications. She said soon afterwards she got a deep depression.. And has since had no motivation, would just lay in bed, increased guilty feelings, poor concentration, low energy, low appetite. Denies any SI; denies any AVH. Denies any recent hypomanic episodes. She said she knows she should have stayed on her medications and wish she did. She does not usually let her depression go this long before getting back on them. Patient would like to be restarted on home medications. Patient denies any dysuria, urinary frequency or urgency Hospital course: 06/12 patient reports she has feeling a little better now that she is back on her medications and she is indeed more interactive and with some improved emotional expression. She would like to continue having her home meds titrated back to home dose. Discussed transitioning to Geriatric unit to which she agrees 06/13/23: Continue Rx. 06/14/23: Continue Rx. 06/20: Continue current regimen and plans 06/21: Continue current regimen and plans 06/22: Continue current plans and regimen Plan: CV Q 15 minute checks Restart home meds and titrate back to home doses Increase to Bupropion Xl 300 Mg Continue Cariprazine 1.5 mg; titrate to Cariprazine Hcl 3 Mg BEDTIME [facility] Increase to Divalproex Sodium ER 750 mg, then 1000 mg; retitrate to 1500mg (or 1725mg?? need to confirm home dose) Continue Donepezil HCl (Donepezil Hcl 10 Mg Tablet) 10 mg PO BEDTIME [facility] Continue Melatonin (Melatonin 3 Mg Tablet) 3 mg PO BEDTIME [facility] Depakote level for June 17 and adjust Depakote accordingly. We are going to keep Depakote a 1000 mg p.o. q.h.s. since her Depakote level on June 17 was 76.5 we are going to repeat next week. On June 23 her Depakote level was 81.6. Reason for continued inpatient stay Substantial Risk for: inability to function, rapid decompensation and med/psych decompensation Time Spent With Patient Time: Total time managing care of this patient today __20__ minutes.
[2023-06-24 18:00] VITALS: BP 148/79; PULSE 91; RESP 18; TEMP 36.2; O2SAT 99
[2023-06-24] MEDS: Divalproex Sodium Sprinkles 125 MG CAP.DR.SPR 1000 MG PO (20:47)
[2023-06-24] MEDS: Melatonin 3 MG TABLET PO (20:48)
[2023-06-24] MEDS: Donepezil HCl 10 MG TABLET PO (20:48)
[2023-06-24] MEDS: Cariprazine HCl 3 MG CAPSULE PO (20:48)
[2023-06-25 07:00] VITALS: BMI 25.9
[2023-06-25 08:00] VITALS: BP 128/66; PULSE 81; RESP 16; TEMP 36.6; O2SAT 98
[2023-06-25] MEDS: buPROPion HCl XL 300 MG TAB.ER.24H PO (08:50)
--- NOTE | 2023-06-25 11:52 | HO.PSYCHPN ---
Subjective Subjective Date of Service: 06/25/23 Reason For Visit: Dysregulated Subjective Notes: Conditional Voluntary Interim History: The nursing staff reported the patient refused her trazodone she had poor sleep only 2 hours at night. On interview the patient denies new symptoms she is working with the community mental health social worker for proper placement. No evidence of mg. Mental Status Exam Mental Status Exam Patient Appearance: Well Grooomed and Appropriate Patient Orientation: Person and Situation Level of Consciousness: Awake and Appropriate Patient Behavior: Guarded and Passive Mood Description: Withdrawn Affect Description: Labile Patient Cognition Impaired: Yes Ability to Follow Directions: Good Speech Pattern: Clear Hallucinations: None Delusions: Not Present Thought Process: Distracted and Slowed Thinking Thought Content: positive for [place] and positive for Circumstantial Judgement: Fair Diagnostics Vital Signs (24Hr): Vital Signs - 24 hr 06/24/23 18:00 06/25/23 08:00 Temperature 97.1 F 97.9 F Pulse Rate 91 81 Respiratory Rate 18 16 Blood Pressure 148/79 H 128/66 Pulse Oximetry 99 98 Oxygen Delivery Method Room Air Room Air BMI result Body Mass Index 24.9 Labs 06/10/23 16:48 06/10/23 16:48 Medications Medications Current Medications Acetaminophen (Acetaminophen 325 Mg Tablet) 650 mg PO Q6H PRN PRN Reason: Headache/Pain Mild Scale (1-3) Last Admin: 06/19/23 15:26 Dose: 650 mg Al Hydroxide/Mg Hydroxide (Magnesium Hydrox/Alum Hydrox 30 Ml Oral.Susp) 30 ml PO Q6H PRN PRN Reason: Heartburn/Nausea Bupropion HCl (Bupropion Hcl Xl 300 Mg Tab.Er.24h) 300 mg PO DAILY [facility] Last Admin: 06/25/23 08:50 Dose: 300 mg Cariprazine (Cariprazine Hcl 3 Mg Capsule) 3 mg PO BEDTIME [facility] Last Admin: 06/24/23 20:48 Dose: 3 mg Divalproex Sodium (Divalproex Sodium Sprinkles 125 Mg Jordi.) 1,000 mg PO BEDTIME [facility] Last Admin: 06/24/23 20:47 Dose: 1,000 mg Donepezil HCl (Donepezil Hcl 10 Mg Tablet) 10 mg PO BEDTIME [facility] Last Admin: 06/24/23 20:48 Dose: 10 mg Lactic Acid (Ammonium Lactate 12 % Lotion 226 Gm Bottle) 1 appl TOPICAL BID PRN; Protocol PRN Reason: dry skin Last Admin: 06/19/23 12:54 Dose: 1 appl Magnesium Hydroxide (Milk Of Magnesia 30 Ml Oral.Susp) 30 ml PO DAILY PRN PRN Reason: Constipation Melatonin (Melatonin 3 Mg Tablet) 3 mg PO BEDTIME [facility] Last Admin: 06/24/23 20:48 Dose: 3 mg Trazodone HCl (Trazodone Hcl 25 Mg Halftab) 25 mg PO BEDTIME MRX1 PRN PRN Reason: Insomnia Last Admin: 06/23/23 21:01 Dose: 25 mg Allergies Allergies Allergy/AdvReac Type Severity Reaction Status Date / Time No Known Allergies Allergy Verified 06/10/23 16:06 Assessment & Plan Assessment & Plan (1) Bipolar disorder, most recent episode depressed: Status: Acute Code(s): F31.30 - Bipolar disorder, current episode depressed, mild or moderate severity, unspecified Plan Patie24 Continuent is a 67-year-old female with history of bipolar disorder II, PTSD, last psychiatric admission February 2023 who presents for worsening depression and face of going off her medications. Patient is somewhat of a poor historian due to significant psychomotor retardation from depression. She says she was stable after being discharged in February but at some point her mood went a little down and for some reason she can not describe, she decided to go off all of her medications. She said soon afterwards she got a deep depression.. And has since had no motivation, would just lay in bed, increased guilty feelings, poor concentration, low energy, low appetite. Denies any SI; denies any AVH. Denies any recent hypomanic episodes. She said she knows she should have stayed on her medications and wish she did. She does not usually let her depression go this long before getting back on them. Patient would like to be restarted on home medications. Patient denies any dysuria, urinary frequency or urgency Hospital course: 06/12 patient reports she has feeling a little better now that she is back on her medications and she is indeed more interactive and with some improved emotional expression. She would like to continue having her home meds titrated back to home dose. Discussed transitioning to Geriatric unit to which she agrees 06/13/23: Continue Rx. 06/14/23: Continue Rx. 06/20: Continue current regimen and plans 06/21: Continue current regimen and plans 06/22: Continue current plans and regimen Plan: CV Q 15 minute checks Restart home meds and titrate back to home doses Increase to Bupropion Xl 300 Mg Continue Cariprazine 1.5 mg; titrate to Cariprazine Hcl 3 Mg BEDTIME [facility] Increase to Divalproex Sodium ER 750 mg, then 1000 mg; retitrate to 1500mg (or 1725mg?? need to confirm home dose) Continue Donepezil HCl (Donepezil Hcl 10 Mg Tablet) 10 mg PO BEDTIME [facility] Continue Melatonin (Melatonin 3 Mg Tablet) 3 mg PO BEDTIME [facility] Depakote level for June 17 and adjust Depakote accordingly. We are going to keep Depakote a 1000 mg p.o. q.h.s. since her Depakote level on June 17 was 76.5 we are going to repeat next week. On June 23 her Depakote level was 81.6. Reason for continued inpatient stay Substantial Risk for: inability to function, rapid decompensation and med/psych decompensation Time Spent With Patient Time: Total time managing care of this patient today __20__ minutes.
[2023-06-25 18:00] VITALS: BP 144/77; PULSE 79; RESP 16; TEMP 35.7; O2SAT 100
[2023-06-25] MEDS: Divalproex Sodium Sprinkles 125 MG CAP.DR.SPR 1000 MG PO (21:36)
[2023-06-25] MEDS: Cariprazine HCl 3 MG CAPSULE PO (21:40)
[2023-06-25] MEDS: Donepezil HCl 10 MG TABLET PO (21:40)
[2023-06-25] MEDS: Melatonin 3 MG TABLET PO (21:40)
[2023-06-25] MEDS: Acetaminophen 325 MG TABLET 650 MG PO (23:55)
[2023-06-26 08:00] VITALS: BP 135/68; PULSE 84; RESP 18; TEMP 35.9; O2SAT 98
[2023-06-26] MEDS: buPROPion HCl XL 300 MG TAB.ER.24H PO (08:41)
[2023-06-26] MEDS: Acetaminophen 325 MG TABLET 650 MG PO ×2 (12:31→18:58)
--- NOTE | 2023-06-26 14:54 | HO.PSYCHPN ---
Subjective Subjective Date of Service: 06/26/23 Reason For Visit: Dysregulated Subjective Notes: Conditional Voluntary Interim History: The nursing staff reported the patient had been compliant with treatment, no evidence of mg. On interview the patient denies new symptoms, waiting for placement. The social services coordinator reported that rest homes have rejected her so far there is no safe discharge plan at this moment. Mental Status Exam Mental Status Exam Patient Appearance: Appropriate Patient Orientation: Person and Situation Level of Consciousness: Awake and Appropriate Patient Behavior: Guarded and Passive Mood Description: Withdrawn Affect Description: Blunted Patient Cognition Impaired: Yes Ability to Follow Directions: Good Speech Pattern: Clear Hallucinations: None Delusions: Not Present Thought Process: Linear Thought Content: positive for Circum[place] Judgement: Fair Diagnostics Vital Signs (24Hr): Vital Signs - 24 hr 06/25/23 18:00 06/26/23 08:00 Temperature 96.3 F L 96.7 F L Pulse Rate 79 84 Respiratory Rate 16 18 Blood Pressure 144/77 H 135/68 Pulse Oximetry 100 98 Oxygen Delivery Method Room Air Room Air BMI result Body Mass Index 25.9 Labs 06/10/23 16:48 06/10/23 16:48 Medications Medications Current Medications Acetaminophen (Acetaminophen 325 Mg Tablet) 650 mg PO Q6H PRN PRN Reason: Headache/Pain Mild Scale (1-3) Last Admin: 06/26/23 12:31 Dose: 650 mg Al Hydroxide/Mg Hydroxide (Magnesium Hydrox/Alum Hydrox 30 Ml Oral.Susp) 30 ml PO Q6H PRN PRN Reason: Heartburn/Nausea Bupropion HCl (Bupropion Hcl Xl 300 Mg Tab.Er.24h) 300 mg PO DAILY [facility] Last Admin: 06/26/23 08:41 Dose: 300 mg Cariprazine (Cariprazine Hcl 3 Mg Capsule) 3 mg PO BEDTIME [facility] Last Admin: 06/25/23 21:40 Dose: 3 mg Divalproex Sodium (Divalproex Sodium Sprinkles 125 Mg Cap.) 1,000 mg PO BEDTIME [facility] Last Admin: 06/25/23 21:36 Dose: 1,000 mg Donepezil HCl (Donepezil Hcl 10 Mg Tablet) 10 mg PO BEDTIME [facility] Last Admin: 06/25/23 21:40 Dose: 10 mg Lactic Acid (Ammonium Lactate 12 % Lotion 226 Gm Bottle) 1 appl TOPICAL BID PRN; Protocol PRN Reason: dry skin Last Admin: 06/19/23 12:54 Dose: 1 appl Magnesium Hydroxide (Milk Of Magnesia 30 Ml Oral.Susp) 30 ml PO DAILY PRN PRN Reason: Constipation Melatonin (Melatonin 3 Mg Tablet) 3 mg PO BEDTIME [facility] Last Admin: 06/25/23 21:40 Dose: 3 mg Multivitamins/Vitamin C (Multivitamin Tablet) 1 tab PO BEDTIME [facility] Trazodone HCl (Trazodone Hcl 25 Mg Halftab) 25 mg PO BEDTIME MRX1 PRN PRN Reason: Insomnia Last Admin: 06/23/23 21:01 Dose: 25 mg Allergies Allergies Allergy/AdvReac Type Severity Reaction Status Date / Time No Known Allergies Allergy Verified 06/10/23 16:06 Assessment & Plan Assessment & Plan (1) Bipolar disorder, most recent episode depressed: Status: Acute Code(s): F31.30 - Bipolar disorder, current episode depressed, mild or moderate severity, unspecified Plan [email or web address] Continuent is a 67-year-old female with history of bipolar disorder II, PTSD, last psychiatric admission February 2023 who presents for worsening depression and face of going off her medications. Patient is somewhat of a poor historian due to significant psychomotor retardation from depression. She says she was stable after being discharged in February but at some point her mood went a little down and for some reason she can not describe, she decided to go off all of her medications. She said soon afterwards she got a deep depression.. And has since had no motivation, would just lay in bed, increased guilty feelings, poor concentration, low energy, low appetite. Denies any SI; denies any AVH. Denies any recent hypomanic episodes. She said she knows she should have stayed on her medications and wish she did. She does not usually let her depression go this long before getting back on them. Patient would like to be restarted on home medications. Patient denies any dysuria, urinary frequency or urgency Hospital course: 06/12 patient reports she has feeling a little better now that she is back on her medications and she is indeed more interactive and with some improved emotional expression. She would like to continue having her home meds titrated back to home dose. Discussed transitioning to Geriatric unit to which she agrees 06/13/23: Continue Rx. 06/14/23: Continue Rx. 06/20: Continue current regimen and plans 06/21: Continue current regimen and plans 06/22: Continue current plans and regimen Plan: CV Q 15 minute checks Restart home meds and titrate back to home doses Increase to Bupropion Xl 300 Mg Continue Cariprazine 1.5 mg; titrate to Cariprazine Hcl 3 Mg BEDTIME [facility] Increase to Divalproex Sodium ER 750 mg, then 1000 mg; retitrate to 1500mg (or 1725mg?? need to confirm home dose) Continue Donepezil HCl (Donepezil Hcl 10 Mg Tablet) 10 mg PO BEDTIME [facility] Continue Melatonin (Melatonin 3 Mg Tablet) 3 mg PO BEDTIME [facility] Depakote level for June 17 and adjust Depakote accordingly. We are going to keep Depakote a 1000 mg p.o. q.h.s. since her Depakote level on June 17 was 76.5 we are going to repeat next week. On June 23 her Depakote level was 81.6. Reason for continued inpatient stay Substantial Risk for: inability to function, rapid decompensation and med/psych decompensation Time Spent With Patient Time: Total time managing care of this patient today __20__ minutes.
[2023-06-26 18:00] VITALS: BP 157/79; PULSE 92; RESP 18; TEMP 36.2; O2SAT 98
[2023-06-26] MEDS: Divalproex Sodium Sprinkles 125 MG CAP.DR.SPR 1000 MG PO (20:24)
[2023-06-26] MEDS: Melatonin 3 MG TABLET PO (20:27)
[2023-06-26] MEDS: Multivitamin TABLET 1 TAB PO (20:28)
[2023-06-26] MEDS: Cariprazine HCl 3 MG CAPSULE PO (20:28)
[2023-06-26] MEDS: Donepezil HCl 10 MG TABLET PO (20:28)
[2023-06-27 08:00] VITALS: BP 143/66; PULSE 85; RESP 18; TEMP 36.2; O2SAT 98
--- NOTE | 2023-06-27 08:08 | HO.PSYCHPN ---
Subjective Subjective Date of Service: 06/27/23 Reason For Visit: Dysregulated Subjective Notes: Conditional Voluntary Interim History: The nursing staff reported the patient slept only 2 hours, she had been fully compliant with treatment. On interview the patient denies new symptoms she states that she is feeling well but she looks slightly manic. We will order a new Depakote level for Thursday. Mental Status Exam Mental Status Exam Patient Appearance: Appropriate Patient Orientation: Person and Situation Level of Consciousness: Awake and Appropriate Patient Behavior: Guarded and Passive Mood Description: Withdrawn Affect Description: Constricted Patient Cognition Impaired: Yes Ability to Follow Directions: Good Speech Pattern: Clear Hallucinations: None Delusions: Not Present Thought Process: Distracted and Evasive Thought Content: positive for Circumstantial Judgement: Fair Diagnostics Vital Signs (24Hr): Vital Signs - 24 hr 06/26/23 18:00 Temperature 97.2 F Pulse Rate 92 Respiratory Rate 18 Blood Pressure 157/79 H Pulse Oximetry 98 Oxygen Delivery Method Room Air BMI result Body Mass Index 25.9 Labs 06/10/23 16:48 06/10/23 16:48 Medications Medications Current Medications Acetaminophen (Acetaminophen 325 Mg Tablet) 650 mg PO Q6H PRN PRN Reason: Headache/Pain Mild Scale (1-3) Last Admin: 06/26/23 18:58 Dose: 650 mg Al Hydroxide/Mg Hydroxide (Magnesium Hydrox/Alum Hydrox 30 Ml Oral.Susp) 30 ml PO Q6H PRN PRN Reason: Heartburn/Nausea Bupropion HCl (Bupropion Hcl Xl 300 Mg Tab.Er.24h) 300 mg PO DAILY [facility] Last Admin: 06/26/23 08:41 Dose: 300 mg Cariprazine (Cariprazine Hcl 3 Mg Capsule) 3 mg PO BEDTIME [facility] Last Admin: 06/26/23 20:28 Dose: 3 mg Divalproex Sodium (Divalproex Sodium Sprinkles 125 Mg Jordi.) 1,000 mg PO BEDTIME [facility] Last Admin: 06/26/23 20:24 Dose: 1,000 mg Donepezil HCl (Donepezil Hcl 10 Mg Tablet) 10 mg PO BEDTIME [facility] Last Admin: 06/26/23 20:28 Dose: 10 mg Lactic Acid (Ammonium Lactate 12 % Lotion 226 Gm Bottle) 1 appl TOPICAL BID PRN; Protocol PRN Reason: dry skin Last Admin: 06/19/23 12:54 Dose: 1 appl Magnesium Hydroxide (Milk Of Magnesia 30 Ml Oral.Susp) 30 ml PO DAILY PRN PRN Reason: Constipation Melatonin (Melatonin 3 Mg Tablet) 3 mg PO BEDTIME [facility] Last Admin: 06/26/23 20:27 Dose: 3 mg Multivitamins/Vitamin C (Multivitamin Tablet) 1 tab PO BEDTIME [facility] Last Admin: 06/26/23 20:28 Dose: 1 tab Trazodone HCl (Trazodone Hcl 25 Mg Halftab) 25 mg PO BEDTIME MRX1 PRN PRN Reason: Insomnia Last Admin: 06/23/23 21:01 Dose: 25 mg Allergies Allergies Allergy/AdvReac Type Severity Reaction Status Date / Time No Known Allergies Allergy Verified 06/10/23 16:06 Assessment & Plan Assessment & Plan (1) Bipolar disorder, most recent episode depressed: Status: Acute Code(s): F31.30 - Bipolar disorder, current episode depressed, mild or moderate severity, unspecified Plan [email or web address] Continuent is a 67-year-old female with history of bipolar disorder II, PTSD, last psychiatric admission February 2023 who presents for worsening depression and face of going off her medications. Patient is somewhat of a poor historian due to significant psychomotor retardation from depression. She says she was stable after being discharged in February but at some point her mood went a little down and for some reason she can not describe, she decided to go off all of her medications. She said soon afterwards she got a deep depression.. And has since had no motivation, would just lay in bed, increased guilty feelings, poor concentration, low energy, low appetite. Denies any SI; denies any AVH. Denies any recent hypomanic episodes. She said she knows she should have stayed on her medications and wish she did. She does not usually let her depression go this long before getting back on them. Patient would like to be restarted on home medications. Patient denies any dysuria, urinary frequency or urgency Hospital course: 06/12 patient reports she has feeling a little better now that she is back on her medications and she is indeed more interactive and with some improved emotional expression. She would like to continue having her home meds titrated back to home dose. Discussed transitioning to Geriatric unit to which she agrees 06/13/23: Continue Rx. 06/14/23: Continue Rx. 06/20: Continue current regimen and plans 06/21: Continue current regimen and plans 06/22: Continue current plans and regimen Plan: CV Q 15 minute checks Restart home meds and titrate back to home doses Increase to Bupropion Xl 300 Mg Continue Cariprazine 1.5 mg; titrate to Cariprazine Hcl 3 Mg BEDTIME [facility] Increase to Divalproex Sodium ER 750 mg, then 1000 mg; retitrate to 1500mg (or 1725mg?? need to confirm home dose) Continue Donepezil HCl (Donepezil Hcl 10 Mg Tablet) 10 mg PO BEDTIME [facility] Continue Melatonin (Melatonin 3 Mg Tablet) 3 mg PO BEDTIME [facility] Depakote level for June 17 and adjust Depakote accordingly. We are going to keep Depakote a 1000 mg p.o. q.h.s. since her Depakote level on June 17 was 76.5 we are going to repeat next week. On June 23 her Depakote level was 81.6. On June 27 we are increasing Vraylar to 4.5 mg p.o. q.h.s. to target mood lability. Reason for continued inpatient stay Substantial Risk for: inability to function, rapid decompensation and med/psych decompensation Time Spent With Patient Time: Total time managing care of this patient today _20___ minutes.
[2023-06-27] MEDS: buPROPion HCl XL 300 MG TAB.ER.24H PO (08:44)
[2023-06-27] MEDS: Acetaminophen 325 MG TABLET 650 MG PO ×2 (11:15→18:43)
[2023-06-27 18:00] VITALS: BP 140/74; PULSE 84; RESP 16; TEMP 36.5; O2SAT 100
[2023-06-27] MEDS: Cariprazine HCl 1.5 MG CAPSULE 4.5 MG PO (21:47)
[2023-06-27] MEDS: Multivitamin TABLET 1 TAB PO (21:48)
[2023-06-27] MEDS: Melatonin 3 MG TABLET PO (21:48)
[2023-06-27] MEDS: Donepezil HCl 10 MG TABLET PO (21:48)
[2023-06-27] MEDS: Divalproex Sodium Sprinkles 125 MG CAP.DR.SPR 1000 MG PO (21:50)
[2023-06-28] MEDS: Acetaminophen 325 MG TABLET 650 MG PO ×2 (01:28→18:42)
[2023-06-28] MEDS: buPROPion HCl XL 300 MG TAB.ER.24H PO (07:49)
[2023-06-28 08:10] VITALS: BP 130/71; PULSE 91; RESP 18; TEMP 36; O2SAT 100
--- NOTE | 2023-06-28 10:17 | HO.PSYCHPN ---
Subjective Subjective Date of Service: 06/28/23 Reason For Visit: Dysregulated Subjective Notes: Conditional Voluntary Interim History: The nursing staff reported the patient complained of back pain, she slept 2 hours. On interview the patient denies new symptoms, waiting for placement. Yesterday we increase Vraylar to target mood lability Mental Status Exam Mental Status Exam Patient Appearance: Appropriate Patient Orientation: Person Level of Consciousness: Awake Patient Behavior: Guarded and Passive Mood Description: Constricted Affect Description: Calm Patient Cognition Impaired: Yes Ability to Follow Directions: Good Speech Pattern: Clear Hallucinations: None Delusions: Not Present Thought Process: Distracted Thought Content: positive for [place] Judgement: Fair Diagnostics Vital Signs (24Hr): Vital Signs - 24 hr 06/27/23 18:00 06/28/23 08:10 Temperature 97.7 F 96.8 F Pulse Rate 84 91 Respiratory Rate 16 18 Blood Pressure 140/74 H 130/71 Pulse Oximetry 100 100 Oxygen Delivery Method Room Air Room Air BMI result Body Mass Index 25.9 Labs 06/10/23 16:48 06/10/23 16:48 Medications Medications Current Medications Acetaminophen (Acetaminophen 325 Mg Tablet) 650 mg PO Q6H PRN PRN Reason: Headache/Pain Mild Scale (1-3) Last Admin: 06/28/23 01:28 Dose: 650 mg Al Hydroxide/Mg Hydroxide (Magnesium Hydrox/Alum Hydrox 30 Ml Oral.Susp) 30 ml PO Q6H PRN PRN Reason: Heartburn/Nausea Bupropion HCl (Bupropion Hcl Xl 300 Mg Tab.Er.24h) 300 mg PO DAILY [facility] Last Admin: 06/28/23 07:49 Dose: 300 mg Cariprazine (Cariprazine Hcl 1.5 Mg Capsule) 4.5 mg PO BEDTIME [facility] Last Admin: 06/27/23 21:47 Dose: 4.5 mg Divalproex Sodium (Divalproex Sodium Sprinkles 125 Mg Cap.DrAceSpr) 1,000 mg PO BEDTIME [facility] Last Admin: 06/27/23 21:50 Dose: 1,000 mg Donepezil HCl (Donepezil Hcl 10 Mg Tablet) 10 mg PO BEDTIME [facility] Last Admin: 06/27/23 21:48 Dose: 10 mg Lactic Acid (Ammonium Lactate 12 % Lotion 226 Gm Bottle) 1 appl TOPICAL BID PRN; Protocol PRN Reason: dry skin Last Admin: 06/19/23 12:54 Dose: 1 appl Magnesium Hydroxide (Milk Of Magnesia 30 Ml Oral.Susp) 30 ml PO DAILY PRN PRN Reason: Constipation Melatonin (Melatonin 3 Mg Tablet) 3 mg PO BEDTIME [facility] Last Admin: 06/27/23 21:48 Dose: 3 mg Multivitamins/Vitamin C (Multivitamin Tablet) 1 tab PO BEDTIME [facility] Last Admin: 06/27/23 21:48 Dose: 1 tab Trazodone HCl (Trazodone Hcl 25 Mg Halftab) 25 mg PO BEDTIME MRX1 PRN PRN Reason: Insomnia Last Admin: 06/23/23 21:01 Dose: 25 mg Allergies Allergies Allergy/AdvReac Type Severity Reaction Status Date / Time No Known Allergies Allergy Verified 06/10/23 16:06 Assessment & Plan Assessment & Plan (1) Bipolar disorder, most recent episode depressed: Status: Acute Code(s): F31.30 - Bipolar disorder, current episode depressed, mild or moderate severity, unspecified Plan [email or web address] Continuent is a 67-year-old female with history of bipolar disorder II, PTSD, last psychiatric admission February 2023 who presents for worsening depression and face of going off her medications. Patient is somewhat of a poor historian due to significant psychomotor retardation from depression. She says she was stable after being discharged in February but at some point her mood went a little down and for some reason she can not describe, she decided to go off all of her medications. She said soon afterwards she got a deep depression.. And has since had no motivation, would just lay in bed, increased guilty feelings, poor concentration, low energy, low appetite. Denies any SI; denies any AVH. Denies any recent hypomanic episodes. She said she knows she should have stayed on her medications and wish she did. She does not usually let her depression go this long before getting back on them. Patient would like to be restarted on home medications. Patient denies any dysuria, urinary frequency or urgency Hospital course: 06/12 patient reports she has feeling a little better now that she is back on her medications and she is indeed more interactive and with some improved emotional expression. She would like to continue having her home meds titrated back to home dose. Discussed transitioning to Geriatric unit to which she agrees 06/13/23: Continue Rx. 06/14/23: Continue Rx. 06/20: Continue current regimen and plans 06/21: Continue current regimen and plans 06/22: Continue current plans and regimen Plan: CV Q 15 minute checks Restart home meds and titrate back to home doses Increase to Bupropion Xl 300 Mg Continue Cariprazine 1.5 mg; titrate to Cariprazine Hcl 3 Mg BEDTIME [facility] Increase to Divalproex Sodium ER 750 mg, then 1000 mg; retitrate to 1500mg (or 1725mg?? need to confirm home dose) Continue Donepezil HCl (Donepezil Hcl 10 Mg Tablet) 10 mg PO BEDTIME [facility] Continue Melatonin (Melatonin 3 Mg Tablet) 3 mg PO BEDTIME [facility] Depakote level for June 17 and adjust Depakote accordingly. We are going to keep Depakote a 1000 mg p.o. q.h.s. since her Depakote level on June 17 was 76.5 we are going to repeat next week. On June 23 her Depakote level was 81.6. On June 27 we are increasing Vraylar to 4.5 mg p.o. q.h.s. to target mood lability. Reason for continued inpatient stay Substantial Risk for: inability to function, rapid decompensation and med/psych decompensation Time Spent With Patient Time: Total time managing care of this patient today __20__ minutes.
[2023-06-28 18:00] VITALS: BP 149/73; PULSE 88; RESP 17; TEMP 36.6; O2SAT 99
[2023-06-28] MEDS: Divalproex Sodium Sprinkles 125 MG CAP.DR.SPR 1000 MG PO (19:54)
[2023-06-28] MEDS: Melatonin 3 MG TABLET PO (19:55)
[2023-06-28] MEDS: Donepezil HCl 10 MG TABLET PO (19:55)
[2023-06-28] MEDS: Multivitamin TABLET 1 TAB PO (19:55)
[2023-06-28] MEDS: Cariprazine HCl 1.5 MG CAPSULE 4.5 MG PO (19:55)
[2023-06-29] MEDS: Acetaminophen 325 MG TABLET 650 MG PO ×2 (00:38→15:24)
[2023-06-29] MEDS: buPROPion HCl XL 300 MG TAB.ER.24H PO (07:55)
[2023-06-29 08:12] VITALS: BP 151/80; PULSE 87; RESP 20; TEMP 36.1; O2SAT 99
--- NOTE | 2023-06-29 15:00 | P.PNPSI_ITS ---
Subjective Subjective Date of Service: 06/29/23 Reason For Visit: Dysregulated Subjective Notes: Conditional Voluntary Interim History: The nursing staff reported the patient had been compliant with treatment she slept 5 hours. She looks hypomanic. On interview the patient denies new symptoms but it is clear that she has a little disinhibited and manic so we are lowering Wellbutrin up to 150. We are also going to order blood work for tomorrow. Mental Status Exam Mental Status Exam Patient Appearance: Well Grooomed and Appropriate Patient Orientation: Person and Situation Level of Consciousness: Awake and Appropriate Patient Behavior: Appropriate Mood Description: Cheerful and Elated Affect Description: Calm Patient Cognition Impaired: Yes Ability to Follow Directions: Good Speech Pattern: Clear Hallucinations: None Delusions: Not Present Thought Process: Racing and Distracted Thought Content: positive for [place] and positive for Circumstantial Judgement: Fair Diagnostics Vital Signs (24Hr): Vital Signs - 24 hr 06/28/23 18:00 06/29/23 08:12 Temperature 97.9 F 96.9 F Pulse Rate 88 87 Respiratory Rate 17 20 Blood Pressure 149/73 H 151/80 H Pulse Oximetry 99 99 Oxygen Delivery Method Room Air Room Air BMI result Body Mass Index 25.9 Labs 06/10/23 16:48 06/10/23 16:48 Medications Medications Current Medications Acetaminophen (Acetaminophen 325 Mg Tablet) 650 mg PO Q6H PRN PRN Reason: Headache/Pain Mild Scale (1-3) Last Admin: 06/29/23 00:38 Dose: 650 mg Al Hydroxide/Mg Hydroxide (Magnesium Hydrox/Alum Hydrox 30 Ml Oral.Susp) 30 ml PO Q6H PRN PRN Reason: Heartburn/Nausea Bupropion HCl (Bupropion Hcl Xl 150 Mg Tab.Er.24h) 150 mg PO DAILY [facility] Last Admin: 06/29/23 08:59 Dose: Not Given Cariprazine (Cariprazine Hcl 1.5 Mg Capsule) 4.5 mg PO BEDTIME [facility] Last Admin: 06/28/23 19:55 Dose: 4.5 mg Divalproex Sodium (Divalproex Sodium Sprinkles 125 Mg Jordi.) 1,000 mg PO BEDTIME [facility] Last Admin: 06/28/23 19:54 Dose: 1,000 mg Donepezil HCl (Donepezil Hcl 10 Mg Tablet) 10 mg PO BEDTIME [facility] Last Admin: 06/28/23 19:55 Dose: 10 mg Lactic Acid (Ammonium Lactate 12 % Lotion 226 Gm Bottle) 1 appl TOPICAL BID PRN; Protocol PRN Reason: dry skin Last Admin: 06/19/23 12:54 Dose: 1 appl Magnesium Hydroxide (Milk Of Magnesia 30 Ml Oral.Susp) 30 ml PO DAILY PRN PRN Reason: Constipation Melatonin (Melatonin 3 Mg Tablet) 3 mg PO BEDTIME [facility] Last Admin: 06/28/23 19:55 Dose: 3 mg Multivitamins/Vitamin C (Multivitamin Tablet) 1 tab PO BEDTIME [facility] Last Admin: 06/28/23 19:55 Dose: 1 tab Trazodone HCl (Trazodone Hcl 25 Mg Halftab) 25 mg PO BEDTIME MRX1 PRN PRN Reason: Insomnia Last Admin: 06/23/23 21:01 Dose: 25 mg Allergies Allergies Allergy/AdvReac Type Severity Reaction Status Date / Time No Known Allergies Allergy Verified 06/10/23 16:06 Assessment & Plan Assessment & Plan (1) Bipolar disorder, most recent episode depressed: Status: Acute Code(s): F31.30 - Bipolar disorder, current episode depressed, mild or moderate severity, unspecified Plan [email or web address] Continuent is a 67-year-old female with history of bipolar disorder II, PTSD, last psychiatric admission February 2023 who presents for worsening depression and face of going off her medications. Patient is somewhat of a poor historian due to significant psychomotor retardation from depression. She says she was stable after being discharged in February but at some point her mood went a little down and for some reason she can not describe, she decided to go off all of her medications. She said soon afterwards she got a deep depression.. And has since had no motivation, would just lay in bed, increased guilty feelings, poor concentration, low energy, low appetite. Denies any SI; denies any AVH. Denies any recent hypomanic episodes. She said she knows she should have stayed on her medications and wish she did. She does not usually let her depression go this long before getting back on them. Patient would like to be restarted on home medications. Patient denies any dysuria, urinary frequency or urgency Hospital course: 06/12 patient reports she has feeling a little better now that she is back on her medications and she is indeed more interactive and with some improved emotional expression. She would like to continue having her home meds titrated back to home dose. Discussed transitioning to Geriatric unit to which she agrees 06/13/23: Continue Rx. 06/14/23: Continue Rx. 06/20: Continue current regimen and plans 06/21: Continue current regimen and plans 06/22: Continue current plans and regimen Plan: CV Q 15 minute checks Restart home meds and titrate back to home doses Increase to Bupropion Xl 300 Mg Continue Cariprazine 1.5 mg; titrate to Cariprazine Hcl 3 Mg BEDTIME [facility] Increase to Divalproex Sodium ER 750 mg, then 1000 mg; retitrate to 1500mg (or 1725mg?? need to confirm home dose) Continue Donepezil HCl (Donepezil Hcl 10 Mg Tablet) 10 mg PO BEDTIME [facility] Continue Melatonin (Melatonin 3 Mg Tablet) 3 mg PO BEDTIME [facility] Depakote level for June 17 and adjust Depakote accordingly. We are going to keep Depakote a 1000 mg p.o. q.h.s. since her Depakote level on June 17 was 76.5 we are going to repeat next week. On June 23 her Depakote level was 81.6. On June 27 we are increasing Vraylar to 4.5 mg p.o. q.h.s. to target mood lability. On June 29 we are lowering Wellbutrin XL up to 150 since she is slightly manic. Blood work for 06/30 Reason for continued inpatient stay Substantial Risk for: inability to function, rapid decompensation and med/psych decompensation Time Spent With Patient Time: Total time managing care of this patient today __20__ minutes.
[2023-06-29 19:30] VITALS: BP 147/77; PULSE 96; RESP 18; TEMP 35.9; O2SAT 100
[2023-06-29] MEDS: Divalproex Sodium Sprinkles 125 MG CAP.DR.SPR 1000 MG PO (20:01)
[2023-06-29] MEDS: Donepezil HCl 10 MG TABLET PO (20:03)
[2023-06-29] MEDS: Cariprazine HCl 1.5 MG CAPSULE 4.5 MG PO (20:03)
[2023-06-29] MEDS: Melatonin 3 MG TABLET PO (20:03)
[2023-06-29] MEDS: Multivitamin TABLET 1 TAB PO (20:03)
[2023-06-30] MEDS: Acetaminophen 325 MG TABLET 650 MG PO ×3 (02:26→18:24)
[2023-06-30 08:05] VITALS: BP 143/70; PULSE 88; RESP 18; TEMP 36.2; O2SAT 100
[2023-06-30 08:13] LABS: MANUAL DIFF FLAG NO
[2023-06-30 08:16] LABS: Basophils Percent Auto 0.5 % (0-2); Eosinophils Absolute Auto 0.1 X10*3/uL (0.0-0.4); Eosinophils Percent Auto 1.2 % (0-4); Hematocrit 41.6 % (37.0-47.0); Imm Gran Abs Auto 0.05 X10*3/uL (0.00-0.03); Imm Gran Pct Auto 0.6 % (0.0-0.4); Lymphocytes Absolute Auto 2.3 X10*3/uL (1.2-4.9); Lymphocytes Percent Auto 27.5 % (20-40); Mean Corpuscular HGB Conc 31.3 g/dl (31.0-35.0); Mean Corpuscular Hemoglobin 29.1 pg (27.0-33.0); Mean Corpuscular Volume 93.3 fL (80.0-98.0); Mean Platelet Volume 9.4 fL (9.4-12.3); Monocytes Absolute Auto 0.8 X10*3/uL (0.1-1.2); Neutrophils Percent Auto 60.2 % (45-73); Platelet Count 363 X10*3/uL (160-400); Red Blood Count 4.46 X10*6/uL (4.20-5.50); Red Cell Distribution Width 12.8 % (11.0-16.0); White Blood Count 8.2 X10*3/uL (4.8-10.8)
[2023-06-30 08:26] LABS: Valproate 58.6 mcg/mL (50.0-100.0)
[2023-06-30 08:29] LABS: Alanine Aminotransferase 14 U/L (0-31); Albumin Level 3.9 g/dL (3.5-5.0); Alkaline Phosphatase 72 U/L (39-117); Anion Gap 10 (12-20); Aspartate Amino Transferase 23 U/L (5-31); Bilirubin Direct < 0.2 mg/dL (0.0-0.5); Bilirubin Total 0.2 mg/dL (0.0-1.0); Blood Urea Nitrogen 22 mg/dL (9-16); Calcium 9.4 mg/dL (8.4-10.2); Carbon Dioxide 29 mmol/L (22-29); Chloride 104 mmol/L (96-108); Creatinine Clr Calc Pharmacy 57.1; Estimated Glomerular Filt Rate > 60; Glucose Random 100 mg/dL (60-115); Potassium 5.3 mmol/L (3.3-5.1); Sodium 138 mmol/L (135-145); Total Protein 7.3 g/dL (6.5-8.0)
[2023-06-30 08:42] LABS: Estimated Average Glucose 100 mg/dL; Hemoglobin A1c % 5.1 % (<6.0)
[2023-06-30] MEDS: buPROPion HCl XL 150 MG TAB.ER.24H PO (09:10)
--- NOTE | 2023-06-30 12:50 | HO.PSYCHPN ---
Subjective Subjective Date of Service: 06/30/23 Reason For Visit: Dysregulated Subjective Notes: Conditional Voluntary Interim History: The nursing staff reported the patient slept only 2 hours. Her Depakote level is only 54 so we are increasing up to 1500 mg p.o. q.h.s.. On interview the patient denies new symptoms, she agreed on the change of medications. Mental Status Exam Mental Status Exam Patient Appearance: Appropriate Patient Orientation: Person and Situation Level of Consciousness: Awake and Appropriate Patient Behavior: Guarded and Passive Mood Description: Calm Affect Description: Constricted Patient Cognition Impaired: Yes Ability to Follow Directions: Good Speech Pattern: Clear Hallucinations: None Delusions: Ideas of Reference Thought Process: Distracted and Evasive Thought Content: positive for [place] and positive for Poverty of Content Judgement: Fair Diagnostics Vital Signs (24Hr): Vital Signs - 24 hr 06/29/23 19:30 06/30/23 08:05 Temperature 96.6 F L 97.1 F Pulse Rate 96 88 Respiratory Rate 18 18 Blood Pressure 147/77 H 143/70 H Pulse Oximetry 100 100 Oxygen Delivery Method Room Air Room Air BMI result Body Mass Index 25.9 Labs 06/30/23 08:05 06/30/23 08:05 Labs: Laboratory Results - last 48 hr 06/30/23 08:05 WBC 8.2 RBC 4.46 Hgb 13.0 Hct 41.6 MCV 93.3 MCH 29.1 MCHC 31.3 RDW 12.8 Plt Count 363 MPV 9.4 Immature Gran % (Auto) 0.6 H Neut % (Auto) 60.2 Lymph % (Auto) 27.5 [place] % (Auto) 10.0 Eos % (Auto) 1.2 Baso % (Auto) 0.5 Lymph # (Auto) 2.3 [place] # (Auto) 0.8 Eos # (Auto) 0.1 Baso # (Auto) 0.0 Abs Immat Gran (auto) 0.05 H Absolute Neuts (auto) 5.0 Absolute Nucleated RBC 0.000 Nucleated RBC % (auto) 0.0 Sodium 138 Potassium 5.3 H D Chloride 104 Carbon Dioxide 29 Anion Gap 10 L BUN 22 H Creatinine 0.85 Estim Creat Clear Calc 57.1 Estimated GFR > 60 Random Glucose 100 Estimat Average Glucose 100 Hemoglobin A1c % 5.1 Calcium 9.4 Total Bilirubin 0.2 Direct Bilirubin < 0.2 AST 23 ALT 14 Alkaline Phosphatase 72 Total Protein 7.3 Albumin 3.9 Valproic Acid 58.6 Medications Medications Current Medications Acetaminophen (Acetaminophen 325 Mg Tablet) 650 mg PO Q6H PRN PRN Reason: Headache/Pain Mild Scale (1-3) Last Admin: 06/30/23 09:10 Dose: 650 mg Al Hydroxide/Mg Hydroxide (Magnesium Hydrox/Alum Hydrox 30 Ml Oral.Susp) 30 ml PO Q6H PRN PRN Reason: Heartburn/Nausea Bupropion HCl (Bupropion Hcl Xl 150 Mg Tab.Er.24h) 150 mg PO DAILY CARLOS Last Admin: 06/30/23 09:10 Dose: 150 mg Cariprazine (Cariprazine Hcl 1.5 Mg Capsule) 4.5 mg PO BEDTIME CARLOS Last Admin: 06/29/23 20:03 Dose: 4.5 mg Divalproex Sodium (Divalproex Sodium Sprinkles 125 Mg Cap.) 1,500 mg PO BEDTIME CARLOS Donepezil HCl (Donepezil Hcl 10 Mg Tablet) 10 mg PO BEDTIME [facility]OS Last Admin: 06/29/23 20:03 Dose: 10 mg Lactic Acid (Ammonium Lactate 12 % Lotion 226 Gm Bottle) 1 appl TOPICAL BID PRN; Protocol PRN Reason: dry skin Last Admin: 06/19/23 12:54 Dose: 1 appl Magnesium Hydroxide (Milk Of Magnesia 30 Ml Oral.Susp) 30 ml PO DAILY PRN PRN Reason: Constipation Melatonin (Melatonin 3 Mg Tablet) 3 mg PO BEDTIME CARLOS Last Admin: 06/29/23 20:03 Dose: 3 mg Multivitamins/Vitamin C (Multivitamin Tablet) 1 tab PO BEDTIME [facility] Last Admin: 06/29/23 20:03 Dose: 1 tab Trazodone HCl (Trazodone Hcl 25 Mg Halftab) 25 mg PO BEDTIME MRX1 PRN PRN Reason: Insomnia Last Admin: 06/23/23 21:01 Dose: 25 mg Allergies Allergies Allergy/AdvReac Type Severity Reaction Status Date / Time No Known Allergies Allergy Verified 06/10/23 16:06 Assessment & Plan Assessment & Plan (1) Bipolar disorder, most recent episode depressed: Status: Acute Code(s): F31.30 - Bipolar disorder, current episode depressed, mild or moderate severity, unspecified Plan [email or web address] Continuent is a 67-year-old female with history of bipolar disorder II, PTSD, last psychiatric admission February 2023 who presents for worsening depression and face of going off her medications. Patient is somewhat of a poor historian due to significant psychomotor retardation from depression. She says she was stable after being discharged in February but at some point her mood went a little down and for some reason she can not describe, she decided to go off all of her medications. She said soon afterwards she got a deep depression.. And has since had no motivation, would just lay in bed, increased guilty feelings, poor concentration, low energy, low appetite. Denies any SI; denies any AVH. Denies any recent hypomanic episodes. She said she knows she should have stayed on her medications and wish she did. She does not usually let her depression go this long before getting back on them. Patient would like to be restarted on home medications. Patient denies any dysuria, urinary frequency or urgency Hospital course: 06/12 patient reports she has feeling a little better now that she is back on her medications and she is indeed more interactive and with some improved emotional expression. She would like to continue having her home meds titrated back to home dose. Discussed transitioning to Geriatric unit to which she agrees 06/13/23: Continue Rx. 06/14/23: Continue Rx. 06/20: Continue current regimen and plans 06/21: Continue current regimen and plans 06/22: Continue current plans and regimen Plan: CV Q 15 minute checks Restart home meds and titrate back to home doses Increase to Bupropion Xl 300 Mg Continue Cariprazine 1.5 mg; titrate to Cariprazine Hcl 3 Mg BEDTIME CAR[facility]OS Increase to Divalproex Sodium ER 750 mg, then 1000 mg; retitrate to 1500mg (or 1725mg?? need to confirm home dose) Continue Donepezil HCl (Donepezil Hcl 10 Mg Tablet) 10 mg PO BEDTIME [facility] Continue Melatonin (Melatonin 3 Mg Tablet) 3 mg PO BEDTIME [facility] Depakote level for June 17 and adjust Depakote accordingly. We are going to keep Depakote a 1000 mg p.o. q.h.s. since her Depakote level on June 17 was 76.5 we are going to repeat next week. On June 23 her Depakote level was 81.6. On June 27 we are increasing Vraylar to 4.5 mg p.o. q.h.s. to target mood lability. On June 29 we are lowering Wellbutrin XL up to 150 since she is slightly manic. Blood work for 06/30 Reason for continued inpatient stay Substantial Risk for: inability to function, rapid decompensation and med/psych decompensation Time Spent With Patient Time: Total time managing care of this patient today _20___ minutes.
[2023-06-30 19:35] VITALS: BP 150/84; PULSE 91; RESP 20; TEMP 36.1; O2SAT 97
[2023-06-30] MEDS: Divalproex Sodium Sprinkles 125 MG CAP.DR.SPR 1500 MG PO (20:40)
[2023-06-30] MEDS: Cariprazine HCl 1.5 MG CAPSULE 4.5 MG PO (20:43)
[2023-06-30] MEDS: Donepezil HCl 10 MG TABLET PO (20:43)
[2023-06-30] MEDS: Melatonin 3 MG TABLET PO (20:43)
[2023-06-30] MEDS: Multivitamin TABLET 1 TAB PO (20:43)
[2023-07-01] MEDS: Acetaminophen 325 MG TABLET 650 MG PO ×2 (03:28→11:57)
[2023-07-01 09:05] VITALS: BP 143/74; PULSE 84; RESP 18; TEMP 36; O2SAT 100
[2023-07-01] MEDS: buPROPion HCl XL 150 MG TAB.ER.24H PO (09:29)
--- NOTE | 2023-07-01 12:25 | P.PNPSI_ITS ---
Subjective Subjective Date of Service: 07/01/23 Reason For Visit: Dysregulated Subjective Notes: Conditional Voluntary Interim History: The nursing staff reported the patient had been hyperverbal and she slept only 2 hours. She remains hypomanic. On interview the patient denies new symptoms, still a little grandiose. We increase Depakote 2 days ago. We will order a new Depakote level and other regular blood work for next Thursday. Mental Status Exam Mental Status Exam Patient Appearance: Well Grooomed and Appropriate Patient Orientation: Person and Situation Level of Consciousness: Awake and Appropriate Patient Behavior: Guarded and Passive Mood Description: Calm and Cheerful Affect Description: Labile Patient Cognition Impaired: Yes Ability to Follow Directions: Good Speech Pattern: Clear Hallucinations: None Delusions: Grandiose and Ideas of Reference Thought Process: Racing and Distracted Thought Content: positive for [place] and positive for Circumstantial Judgement: Fair Diagnostics Vital Signs (24Hr): Vital Signs - 24 hr 06/30/23 19:35 07/01/23 09:05 Temperature 97.0 F 96.8 F Pulse Rate 91 84 Respiratory Rate 20 18 Blood Pressure 150/84 H 143/74 H Pulse Oximetry 97 100 Oxygen Delivery Method Room Air Room Air BMI result Body Mass Index 25.9 Labs 06/30/23 08:05 06/30/23 08:05 Labs: Laboratory Results - last 48 hr 06/30/23 08:05 WBC 8.2 RBC 4.46 Hgb 13.0 Hct 41.6 MCV 93.3 MCH 29.1 MCHC 31.3 RDW 12.8 Plt Count 363 MPV 9.4 Immature Gran % (Auto) 0.6 H Neut % (Auto) 60.2 Lymph % (Auto) 27.5 [place] % (Auto) 10.0 Eos % (Auto) 1.2 Baso % (Auto) 0.5 Lymph # (Auto) 2.3 [place] # (Auto) 0.8 Eos # (Auto) 0.1 Baso # (Auto) 0.0 Abs Immat Gran (auto) 0.05 H Absolute Neuts (auto) 5.0 Absolute Nucleated RBC 0.000 Nucleated RBC % (auto) 0.0 Sodium 138 Potassium 5.3 H D Chloride 104 Carbon Dioxide 29 Anion Gap 10 L BUN 22 H Creatinine 0.85 Estim Creat Clear Calc 57.1 Estimated GFR > 60 Random Glucose 100 Estimat Average Glucose 100 Hemoglobin A1c % 5.1 Calcium 9.4 Total Bilirubin 0.2 Direct Bilirubin < 0.2 AST 23 ALT 14 Alkaline Phosphatase 72 Total Protein 7.3 Albumin 3.9 Valproic Acid 58.6 Medications Medications Current Medications Acetaminophen (Acetaminophen 325 Mg Tablet) 650 mg PO Q6H PRN PRN Reason: Headache/Pain Mild Scale (1-3) Last Admin: 07/01/23 11:57 Dose: 650 mg Al Hydroxide/Mg Hydroxide (Magnesium Hydrox/Alum Hydrox 30 Ml Oral.Susp) 30 ml PO Q6H PRN PRN Reason: Heartburn/Nausea Bupropion HCl (Bupropion Hcl Xl 150 Mg Tab.Er.24h) 150 mg PO DAILY CARLOS Last Admin: 07/01/23 09:29 Dose: 150 mg Cariprazine (Cariprazine Hcl 1.5 Mg Capsule) 4.5 mg PO BEDTIME CARLOS Last Admin: 06/30/23 20:43 Dose: 4.5 mg Divalproex Sodium (Divalproex Sodium Sprinkles 125 Mg Cap.Spr) 1,500 mg PO BEDTIME [facility] Last Admin: 06/30/23 20:40 Dose: 1,500 mg Donepezil HCl (Donepezil Hcl 10 Mg Tablet) 10 mg PO BEDTIME [facility]OS Last Admin: 06/30/23 20:43 Dose: 10 mg Lactic Acid (Ammonium Lactate 12 % Lotion 226 Gm Bottle) 1 appl TOPICAL BID PRN; Protocol PRN Reason: dry skin Last Admin: 06/19/23 12:54 Dose: 1 appl Magnesium Hydroxide (Milk Of Magnesia 30 Ml Oral.Susp) 30 ml PO DAILY PRN PRN Reason: Constipation Melatonin (Melatonin 3 Mg Tablet) 3 mg PO BEDTIME [facility]LOS Last Admin: 06/30/23 20:43 Dose: 3 mg Multivitamins/Vitamin C (Multivitamin Tablet) 1 tab PO BEDTIME [facility]OS Last Admin: 06/30/23 20:43 Dose: 1 tab Trazodone HCl (Trazodone Hcl 25 Mg Halftab) 25 mg PO BEDTIME MRX1 PRN PRN Reason: Insomnia Last Admin: 06/23/23 21:01 Dose: 25 mg Allergies Allergies Allergy/AdvReac Type Severity Reaction Status Date / Time No Known Allergies Allergy Verified 06/10/23 16:06 Assessment & Plan Assessment & Plan (1) Bipolar disorder, most recent episode depressed: Status: Acute Code(s): F31.30 - Bipolar disorder, current episode depressed, mild or moderate severity, unspecified Plan [email or web address] Continuent is a 67-year-old female with history of bipolar disorder II, PTSD, last psychiatric admission February 2023 who presents for worsening depression and face of going off her medications. Patient is somewhat of a poor historian due to significant psychomotor retardation from depression. She says she was stable after being discharged in February but at some point her mood went a little down and for some reason she can not describe, she decided to go off all of her medications. She said soon afterwards she got a deep depression.. And has since had no motivation, would just lay in bed, increased guilty feelings, poor concentration, low energy, low appetite. Denies any SI; denies any AVH. Denies any recent hypomanic episodes. She said she knows she should have stayed on her medications and wish she did. She does not usually let her depression go this long before getting back on them. Patient would like to be restarted on home medications. Patient denies any dysuria, urinary frequency or urgency Hospital course: 06/12 patient reports she has feeling a little better now that she is back on her medications and she is indeed more interactive and with some improved emotional expression. She would like to continue having her home meds titrated back to home dose. Discussed transitioning to Geriatric unit to which she agrees 06/13/23: Continue Rx. 06/14/23: Continue Rx. 06/20: Continue current regimen and plans 06/21: Continue current regimen and plans 06/22: Continue current plans and regimen Plan: CV Q 15 minute checks Restart home meds and titrate back to home doses Increase to Bupropion Xl 300 Mg Continue Cariprazine 1.5 mg; titrate to Cariprazine Hcl 3 Mg BEDTIME CARLOS Increase to Divalproex Sodium ER 750 mg, then 1000 mg; retitrate to 1500mg (or 1725mg?? need to confirm home dose) Continue Donepezil HCl (Donepezil Hcl 10 Mg Tablet) 10 mg PO BEDTIME CARLOS Continue Melatonin (Melatonin 3 Mg Tablet) 3 mg PO BEDTIME CARLOS Depakote level for June 17 and adjust Depakote accordingly. We are going to keep Depakote a 1000 mg p.o. q.h.s. since her Depakote level on June 17 was 76.5 we are going to repeat next week. On June 23 her Depakote level was 81.6. On June 27 we are increasing Vraylar to 4.5 mg p.o. q.h.s. to target mood lability. On June 29 we are lowering Wellbutrin XL up to 150 since she is slightly manic. Blood work for 06/30 and it came back in the mid 50s. Depakote has been increased up to 1500 mg p.o. q.h.s. and we will reassess next week. Reason for continued inpatient stay Substantial Risk for: inability to function, rapid decompensation and med/psych decompensation Time Spent With Patient Time: Total time managing care of this patient today _20___ minutes.
[2023-07-01 18:00] VITALS: BP 129/62; PULSE 96; RESP 16; TEMP 35.8; O2SAT 96
[2023-07-01] MEDS: Cariprazine HCl 1.5 MG CAPSULE 4.5 MG PO (22:08)
[2023-07-01] MEDS: Multivitamin TABLET 1 TAB PO (22:09)
[2023-07-01] MEDS: Melatonin 3 MG TABLET PO (22:09)
[2023-07-01] MEDS: Donepezil HCl 10 MG TABLET PO (22:10)
[2023-07-01] MEDS: Divalproex Sodium Sprinkles 125 MG CAP.DR.SPR 1500 MG PO (22:11)
[2023-07-02] MEDS: Acetaminophen 325 MG TABLET 650 MG PO ×3 (01:58→19:45)
[2023-07-02 07:00] VITALS: BMI 27.5
[2023-07-02 09:20] VITALS: BP 129/89; PULSE 79; RESP 14; TEMP 36.4; O2SAT 99
[2023-07-02] MEDS: buPROPion HCl XL 150 MG TAB.ER.24H PO (09:25)
--- NOTE | 2023-07-02 11:30 | P.PNPSI_ITS ---
Subjective Subjective Date of Service: 07/02/23 Reason For Visit: Dysregulated Subjective Notes: Conditional Voluntary Interim History: The nursing staff reported the patient had been hyperverbal, attending to groups. She slept only 1 hour last night. We discussed options with the patient agreed to increase melatonin at night. We are ordering blood work for next week. Mental Status Exam Mental Status Exam Patient Appearance: Well Grooomed and Appropriate Patient Orientation: Person and Situation Level of Consciousness: Awake and Appropriate Patient Behavior: Appropriate Mood Description: Calm Affect Description: Expansive Patient Cognition Impaired: Yes Ability to Follow Directions: Good Speech Pattern: Clear and Rapid Hallucinations: None Delusions: Not Present Thought Process: Racing and Distracted Thought Content: positive for [place] and positive for Poverty of Content Judgement: Fair Diagnostics Vital Signs (24Hr): Vital Signs - 24 hr 07/01/23 18:00 07/02/23 09:20 Temperature 96.5 F L 97.6 F Pulse Rate 96 79 Respiratory Rate 16 14 Blood Pressure 129/62 129/89 Pulse Oximetry 96 99 Oxygen Delivery Method Room Air Room Air BMI result Body Mass Index 25.9 Labs 06/30/23 08:05 06/30/23 08:05 Medications Medications Current Medications Acetaminophen (Acetaminophen 325 Mg Tablet) 650 mg PO Q6H PRN PRN Reason: Headache/Pain Mild Scale (1-3) Last Admin: 07/02/23 09:25 Dose: 650 mg Al Hydroxide/Mg Hydroxide (Magnesium Hydrox/Alum Hydrox 30 Ml Oral.Susp) 30 ml PO Q6H PRN PRN Reason: Heartburn/Nausea Bupropion HCl (Bupropion Hcl Xl 150 Mg Tab.Er.24h) 150 mg PO DAILY [facility] Last Admin: 07/02/23 09:25 Dose: 150 mg Cariprazine (Cariprazine Hcl 1.5 Mg Capsule) 4.5 mg PO BEDTIME CARLOS Last Admin: 07/01/23 22:08 Dose: 4.5 mg Divalproex Sodium (Divalproex Sodium Sprinkles 125 Mg ) 1,500 mg PO BEDTIME CARLOS Last Admin: 07/01/23 22:11 Dose: 1,500 mg Donepezil HCl (Donepezil Hcl 10 Mg Tablet) 10 mg PO BEDTIME [facility] Last Admin: 07/01/23 22:10 Dose: 10 mg Lactic Acid (Ammonium Lactate 12 % Lotion 226 Gm Bottle) 1 appl TOPICAL BID PRN; Protocol PRN Reason: dry skin Last Admin: 06/19/23 12:54 Dose: 1 appl Magnesium Hydroxide (Milk Of Magnesia 30 Ml Oral.Susp) 30 ml PO DAILY PRN PRN Reason: Constipation Melatonin (Melatonin 3 Mg Tablet) 9 mg PO BEDTIME CARLOS Multivitamins/Vitamin C (Multivitamin Tablet) 1 tab PO BEDTIME CARLOS Last Admin: 07/01/23 22:09 Dose: 1 tab Trazodone HCl (Trazodone Hcl 25 Mg Halftab) 25 mg PO BEDTIME MRX1 PRN PRN Reason: Insomnia Last Admin: 06/23/23 21:01 Dose: 25 mg Allergies Allergies Allergy/AdvReac Type Severity Reaction Status Date / Time No Known Allergies Allergy Verified 06/10/23 16:06 Assessment & Plan Assessment & Plan (1) Bipolar disorder, most recent episode depressed: Status: Acute Code(s): F31.30 - Bipolar disorder, current episode depressed, mild or moderate severity, unspecified Plan [email or web address] Continuent is a 67-year-old female with history of bipolar disorder II, PTSD, last psychiatric admission February 2023 who presents for worsening depression and face of going off her medications. Patient is somewhat of a poor historian due to significant psychomotor retardation from depression. She says she was stable after being discharged in February but at some point her mood went a little down and for some reason she can not describe, she decided to go off all of her medications. She said soon afterwards she got a deep depression.. And has since had no motivation, would just lay in bed, increased guilty feelings, poor concentration, low energy, low appetite. Denies any SI; denies any AVH. Denies any recent hypomanic episodes. She said she knows she should have stayed on her medications and wish she did. She does not usually let her depression go this long before getting back on them. Patient would like to be restarted on home medications. Patient denies any dysuria, urinary frequency or urgency Hospital course: 06/12 patient reports she has feeling a little better now that she is back on her medications and she is indeed more interactive and with some improved emotional expression. She would like to continue having her home meds titrated back to home dose. Discussed transitioning to Geriatric unit to which she agrees 06/13/23: Continue Rx. 06/14/23: Continue Rx. 06/20: Continue current regimen and plans 06/21: Continue current regimen and plans 06/22: Continue current plans and regimen Plan: CV Q 15 minute checks Restart home meds and titrate back to home doses Increase to Bupropion Xl 300 Mg Continue Cariprazine 1.5 mg; titrate to Cariprazine Hcl 3 Mg BEDTIME CARLOS Increase to Divalproex Sodium ER 750 mg, then 1000 mg; retitrate to 1500mg (or 1725mg?? need to confirm home dose) Continue Donepezil HCl (Donepezil Hcl 10 Mg Tablet) 10 mg PO BEDTIME CARLOS Continue Melatonin (Melatonin 3 Mg Tablet) 3 mg PO BEDTIME CARLOS Depakote level for June 17 and adjust Depakote accordingly. We are going to keep Depakote a 1000 mg p.o. q.h.s. since her Depakote level on June 17 was 76.5 we are going to repeat next week. On June 23 her Depakote level was 81.6. On June 27 we are increasing Vraylar to 4.5 mg p.o. q.h.s. to target mood lability. On June 29 we are lowering Wellbutrin XL up to 150 since she is slightly manic. Blood work for 06/30 and it came back in the mid 50s. Depakote has been increased up to 1500 mg p.o. q.h.s. and we will reassess next week. Reason for continued inpatient stay Substantial Risk for: inability to function, rapid decompensation and med/psych decompensation Time Spent With Patient Time: Total time managing care of this patient today _20___ minutes.
[2023-07-02 18:00] VITALS: BP 110/53; PULSE 87; RESP 16; TEMP 36.2; O2SAT 100
[2023-07-02] MEDS: Cariprazine HCl 1.5 MG CAPSULE 4.5 MG PO (22:19)
[2023-07-02] MEDS: Donepezil HCl 10 MG TABLET PO (22:20)
[2023-07-02] MEDS: Multivitamin TABLET 1 TAB PO (22:20)
[2023-07-02] MEDS: Melatonin 3 MG TABLET 9 MG PO (22:21)
[2023-07-02] MEDS: Divalproex Sodium Sprinkles 125 MG CAP.DR.SPR 1500 MG PO (22:23)
[2023-07-03] MEDS: Acetaminophen 325 MG TABLET 650 MG PO ×3 (01:59→18:25)
[2023-07-03 07:55] VITALS: BP 132/63; PULSE 84; RESP 16; TEMP 36.2; O2SAT 99
[2023-07-03] MEDS: buPROPion HCl XL 150 MG TAB.ER.24H PO (07:59)
--- NOTE | 2023-07-03 08:30 | HO.PSYCHPN ---
Subjective Subjective Date of Service: 07/03/23 Reason For Visit: Dysregulated Subjective Notes: Conditional Voluntary Interim History: Pt continues to have difficulty sleeping at night. Last night she slept about 1hr disrupted. Pt reports she does not feel tired. She reports feeling well. She is hyperverbal at times, less intrusive with peers. She is taking medications as prescribed. Diagnostics Vital Signs (24Hr): Vital Signs - 24 hr 07/02/23 09:20 07/02/23 18:00 07/03/23 07:55 Temperature 97.6 F 97.2 F 97.1 F Pulse Rate 79 87 84 Respiratory Rate 14 16 16 Blood Pressure 129/89 110/53 L 132/63 Pulse Oximetry 99 100 99 Oxygen Delivery Method Room Air Room Air Room Air BMI result Body Mass Index 25.9 Labs 06/30/23 08:05 06/30/23 08:05 Medications Medications Current Medications Acetaminophen (Acetaminophen 325 Mg Tablet) 650 mg PO Q6H PRN PRN Reason: Headache/Pain Mild Scale (1-3) Last Admin: 07/03/23 01:59 Dose: 650 mg Al Hydroxide/Mg Hydroxide (Magnesium Hydrox/Alum Hydrox 30 Ml Oral.Susp) 30 ml PO Q6H PRN PRN Reason: Heartburn/Nausea Bupropion HCl (Bupropion Hcl Xl 150 Mg Tab.Er.24h) 150 mg PO DAILY [facility] Last Admin: 07/03/23 07:59 Dose: 150 mg Cariprazine (Cariprazine Hcl 1.5 Mg Capsule) 4.5 mg PO BEDTIME [facility] Last Admin: 07/02/23 22:19 Dose: 4.5 mg Divalproex Sodium (Divalproex Sodium Sprinkles 125 Mg ) 1,500 mg PO BEDTIME [facility] Last Admin: 07/02/23 22:23 Dose: 1,500 mg Donepezil HCl (Donepezil Hcl 10 Mg Tablet) 10 mg PO BEDTIME [facility] Last Admin: 07/02/23 22:20 Dose: 10 mg Lactic Acid (Ammonium Lactate 12 % Lotion 226 Gm Bottle) 1 appl TOPICAL BID PRN; Protocol PRN Reason: dry skin Last Admin: 06/19/23 12:54 Dose: 1 appl Magnesium Hydroxide (Milk Of Magnesia 30 Ml Oral.Susp) 30 ml PO DAILY PRN PRN Reason: Constipation Melatonin (Melatonin 3 Mg Tablet) 9 mg PO BEDTIME [facility] Last Admin: 07/02/23 22:21 Dose: 9 mg Multivitamins/Vitamin C (Multivitamin Tablet) 1 tab PO BEDTIME [facility]OS Last Admin: 07/02/23 22:20 Dose: 1 tab Trazodone HCl (Trazodone Hcl 25 Mg Halftab) 25 mg PO BEDTIME MRX1 PRN PRN Reason: Insomnia Last Admin: 06/23/23 21:01 Dose: 25 mg Allergies Allergies Allergy/AdvReac Type Severity Reaction Status Date / Time No Known Allergies Allergy Verified 06/10/23 16:06 Assessment & Plan Assessment & Plan (1) Bipolar disorder, most recent episode depressed: Status: Acute Code(s): F31.30 - Bipolar disorder, current episode depressed, mild or moderate severity, unspecified Plan [email or web address] Continuent is a 67-year-old female with history of bipolar disorder II, PTSD, last psychiatric admission February 2023 who presents for worsening depression and face of going off her medications. Patient is somewhat of a poor historian due to significant psychomotor retardation from depression. She says she was stable after being discharged in February but at some point her mood went a little down and for some reason she can not describe, she decided to go off all of her medications. She said soon afterwards she got a deep depression.. And has since had no motivation, would just lay in bed, increased guilty feelings, poor concentration, low energy, low appetite. Denies any SI; denies any AVH. Denies any recent hypomanic episodes. She said she knows she should have stayed on her medications and wish she did. She does not usually let her depression go this long before getting back on them. Patient would like to be restarted on home medications. Patient denies any dysuria, urinary frequency or urgency Hospital course: 06/12 patient reports she has feeling a little better now that she is back on her medications and she is indeed more interactive and with some improved emotional expression. She would like to continue having her home meds titrated back to home dose. Discussed transitioning to Geriatric unit to which she agrees 06/13/23: Continue Rx. 06/14/23: Continue Rx. 06/20: Continue current regimen and plans 06/21: Continue current regimen and plans 06/22: Continue current plans and regimen 07/02 add clonazepam 1mg po qhs-- since pt had not slept in several days. Plan: CV Q 15 minute checks Restart home meds and titrate back to home doses Increase to Bupropion Xl 300 Mg Continue Cariprazine 1.5 mg; titrate to Cariprazine Hcl 3 Mg BEDTIME CARLOS Increase to Divalproex Sodium ER 750 mg, then 1000 mg; retitrate to 1500mg (or 1725mg?? need to confirm home dose) Continue Donepezil HCl (Donepezil Hcl 10 Mg Tablet) 10 mg PO BEDTIME CARLOS Continue Melatonin (Melatonin 3 Mg Tablet) 3 mg PO BEDTIME CARL[facility] Depakote level for June 17 and adjust Depakote accordingly. We are going to keep Depakote a 1000 mg p.o. q.h.s. since her Depakote level on June 17 was 76.5 we are going to repeat next week. On June 23 her Depakote level was 81.6. On June 27 we are increasing Vraylar to 4.5 mg p.o. q.h.s. to target mood lability. On June 29 we are lowering Wellbutrin XL up to 150 since she is slightly manic. Blood work for 06/30 and it came back in the mid 50s. Depakote has been increased up to 1500 mg p.o. q.h.s. and we will reassess next week. Reason for continued inpatient stay Substantial Risk for: inability to function Time Spent With Patient Time: Total time managing care of this patient today ____ minutes.
[2023-07-03 20:19] VITALS: BP 118/57; PULSE 94; RESP 16; TEMP 35.7; O2SAT 96
[2023-07-03] MEDS: Divalproex Sodium Sprinkles 125 MG CAP.DR.SPR 1500 MG PO (20:21)
[2023-07-03] MEDS: clonazePAM 1 MG TABLET PO (20:21)
[2023-07-03] MEDS: Donepezil HCl 10 MG TABLET PO (20:21)
[2023-07-03] MEDS: Multivitamin TABLET 1 TAB PO (20:21)
[2023-07-03] MEDS: Cariprazine HCl 1.5 MG CAPSULE 4.5 MG PO (20:22)
[2023-07-03] MEDS: Melatonin 3 MG TABLET 9 MG PO (20:22)
[2023-07-04] MEDS: Acetaminophen 325 MG TABLET 650 MG PO ×3 (00:03→18:19)
[2023-07-04 08:00] VITALS: BP 147/72; PULSE 91; RESP 18; TEMP 35.7; O2SAT 99
[2023-07-04] MEDS: buPROPion HCl XL 150 MG TAB.ER.24H PO (09:01)
--- NOTE | 2023-07-04 11:24 | P.PNPSI_ITS ---
Subjective Subjective Date of Service: 07/04/23 Reason For Visit: Dysregulated Interim History: calm, cooperative. feeling well. reports having had difficulty sleeping, but that is improving. looking forward to going to [facility]. per staff, doing well. pleasant. social. A&O. no pain today. slept 6 hours. Mental Status Exam Mental Status Exam Patient Appearance: Well Grooomed and Appropriate Patient Orientation: Person and Situation Level of Consciousness: Awake and Appropriate Patient Behavior: Appropriate Mood Description: Calm Affect Description: Expansive Patient Cognition Impaired: Yes Ability to Follow Directions: Good Speech Pattern: Clear and Rapid Hallucinations: None Delusions: Not Present Thought Process: Racing and Distracted Thought Content: positive for [place] and positive for Poverty of Content Judgement: Fair Diagnostics Vital Signs (24Hr): Vital Signs - 24 hr 07/03/23 20:19 07/04/23 08:00 Temperature 96.3 F L 96.2 F L Pulse Rate 94 91 Respiratory Rate 16 18 Blood Pressure 118/57 L 147/72 H Pulse Oximetry 96 99 Oxygen Delivery Method Room Air Room Air BMI result Body Mass Index 27.5 Labs 06/30/23 08:05 06/30/23 08:05 Medications Medications Current Medications Acetaminophen (Acetaminophen 325 Mg Tablet) 650 mg PO Q6H PRN PRN Reason: Headache/Pain Mild Scale (1-3) Last Admin: 07/04/23 00:03 Dose: 650 mg Al Hydroxide/Mg Hydroxide (Magnesium Hydrox/Alum Hydrox 30 Ml Oral.Susp) 30 ml PO Q6H PRN PRN Reason: Heartburn/Nausea Bupropion HCl (Bupropion Hcl Xl 150 Mg Tab.Er.24h) 150 mg PO DAILY [facility] Last Admin: 07/04/23 09:01 Dose: 150 mg Cariprazine (Cariprazine Hcl 1.5 Mg Capsule) 4.5 mg PO BEDTIME [facility] Last Admin: 07/03/23 20:22 Dose: 4.5 mg Clonazepam (Clonazepam 1 Mg Tablet) 1 mg PO BEDTIME [facility] Last Admin: 07/03/23 20:21 Dose: 1 mg Divalproex Sodium (Divalproex Sodium Sprinkles 125 Mg ) 1,500 mg PO BEDTIME [facility] Last Admin: 07/03/23 20:21 Dose: 1,500 mg Donepezil HCl (Donepezil Hcl 10 Mg Tablet) 10 mg PO BEDTIME [facility] Last Admin: 07/03/23 20:21 Dose: 10 mg Lactic Acid (Ammonium Lactate 12 % Lotion 226 Gm Bottle) 1 appl TOPICAL BID PRN; Protocol PRN Reason: dry skin Last Admin: 06/19/23 12:54 Dose: 1 appl Magnesium Hydroxide (Milk Of Magnesia 30 Ml Oral.Susp) 30 ml PO DAILY PRN PRN Reason: Constipation Melatonin (Melatonin 3 Mg Tablet) 9 mg PO BEDTIME [facility] Last Admin: 07/03/23 20:22 Dose: 9 mg Multivitamins/Vitamin C (Multivitamin Tablet) 1 tab PO BEDTIME [facility] Last Admin: 07/03/23 20:21 Dose: 1 tab Trazodone HCl (Trazodone Hcl 50 Mg Tablet) 50 mg PO BEDTIME PRN PRN Reason: Insomnia Allergies Allergies Allergy/AdvReac Type Severity Reaction Status Date / Time No Known Allergies Allergy Verified 06/10/23 16:06 Assessment & Plan Assessment & Plan (1) Bipolar disorder, most recent episode depressed: Status: Acute Code(s): F31.30 - Bipolar disorder, current episode depressed, mild or moderate severity, unspecified Plan [email or web address] Continuent is a 67-year-old female with history of bipolar disorder II, PTSD, last psychiatric admission February 2023 who presents for worsening depression and face of going off her medications. Patient is somewhat of a poor historian due to significant psychomotor retardation from depression. She says she was stable after being discharged in February but at some point her mood went a little down and for some reason she can not describe, she decided to go off all of her medications. She said soon afterwards she got a deep depression.. And has since had no motivation, would just lay in bed, increased guilty feelings, poor concentration, low energy, low appetite. Denies any SI; denies any AVH. Denies any recent hypomanic episodes. She said she knows she should have stayed on her medications and wish she did. She does not usually let her depression go this long before getting back on them. Patient would like to be restarted on home medications. Patient denies any dysuria, urinary frequency or urgency Hospital course: 06/12 patient reports she has feeling a little better now that she is back on her medications and she is indeed more interactive and with some improved emotional expression. She would like to continue having her home meds titrated back to home dose. Discussed transitioning to Geriatric unit to which she agrees 06/13/23: Continue Rx. 06/14/23: Continue Rx. 06/20: Continue current regimen and plans 06/21: Continue current regimen and plans 06/22: Continue current plans and regimen 07/02 add clonazepam 1mg po qhs-- since pt had not slept in several days. 07/03: slept 6 hours last night. feeling well, looking forward to discharge. continue current mgmt. Plan: CV Q 15 minute checks Restart home meds and titrate back to home doses Increase to Bupropion Xl 300 Mg Continue Cariprazine 1.5 mg; titrate to Cariprazine Hcl 3 Mg BEDTIME [facility] Increase to Divalproex Sodium ER 750 mg, then 1000 mg; retitrate to 1500mg (or 1725mg?? need to confirm home dose) Continue Donepezil HCl (Donepezil Hcl 10 Mg Tablet) 10 mg PO BEDTIME [facility] Continue Melatonin (Melatonin 3 Mg Tablet) 3 mg PO BEDTIME [facility] Depakote level for June 17 and adjust Depakote accordingly. We are going to keep Depakote a 1000 mg p.o. q.h.s. since her Depakote level on June 17 was 76.5 we are going to repeat next week. On June 23 her Depakote level was 81.6. On June 27 we are increasing Vraylar to 4.5 mg p.o. q.h.s. to target mood lability. On June 29 we are lowering Wellbutrin XL up to 150 since she is slightly manic. Blood work for 06/30 and it came back in the mid 50s. Depakote has been increased up to 1500 mg p.o. q.h.s. and we will reassess next week. Reason for continued inpatient stay Substantial Risk for: inability to function and rapid decompensation Time Spent With Patient Time: Total time managing care of this patient today ____ minutes.
[2023-07-04 19:30] VITALS: BP 145/64; PULSE 95; RESP 18; TEMP 36.3; O2SAT 97
[2023-07-04] MEDS: Divalproex Sodium Sprinkles 125 MG CAP.DR.SPR 1500 MG PO (20:39)
[2023-07-04] MEDS: Multivitamin TABLET 1 TAB PO (20:41)
[2023-07-04] MEDS: Cariprazine HCl 1.5 MG CAPSULE 4.5 MG PO (20:41)
[2023-07-04] MEDS: Melatonin 3 MG TABLET 9 MG PO (20:41)
[2023-07-04] MEDS: clonazePAM 1 MG TABLET PO (20:43)
[2023-07-04] MEDS: Donepezil HCl 10 MG TABLET PO (20:43)
[2023-07-05] MEDS: Acetaminophen 325 MG TABLET 650 MG PO ×4 (02:56→20:46)
[2023-07-05 07:55] VITALS: BP 129/58; PULSE 76; RESP 18; TEMP 36.2; O2SAT 100
[2023-07-05] MEDS: buPROPion HCl XL 150 MG TAB.ER.24H PO (09:01)
--- NOTE | 2023-07-05 11:05 | P.PNPSI_ITS ---
Subjective Subjective Date of Service: 07/05/23 Reason For Visit: Dysregulated Interim History: friendly, chatty. no complaints or concerns. per staff, slept 6 hours again last night. low back pain. social, cheerful. Mental Status Exam Mental Status Exam Patient Appearance: Well Grooomed and Appropriate Patient Orientation: Person and Situation Level of Consciousness: Awake and Appropriate Patient Behavior: Appropriate Mood Description: Calm Affect Description: Expansive Patient Cognition Impaired: Yes Ability to Follow Directions: Good Speech Pattern: Clear and Rapid Hallucinations: None Delusions: Not Present Thought Process: Distracted and Goal Oriented Thought Content: positive for [place] and positive for Poverty of Content Judgement: Fair Diagnostics Vital Signs (24Hr): Vital Signs - 24 hr 07/04/23 19:30 07/05/23 07:55 Temperature 97.4 F 97.2 F Pulse Rate 95 76 Respiratory Rate 18 18 Blood Pressure 145/64 H 129/58 L Pulse Oximetry 97 100 Oxygen Delivery Method Room Air Room Air BMI result Body Mass Index 27.5 Labs 06/30/23 08:05 06/30/23 08:05 Medications Medications Current Medications Acetaminophen (Acetaminophen 325 Mg Tablet) 650 mg PO Q6H PRN PRN Reason: Headache/Pain Mild Scale (1-3) Last Admin: 07/05/23 09:31 Dose: 650 mg Al Hydroxide/Mg Hydroxide (Magnesium Hydrox/Alum Hydrox 30 Ml Oral.Susp) 30 ml PO Q6H PRN PRN Reason: Heartburn/Nausea Bupropion HCl (Bupropion Hcl Xl 150 Mg Tab.Er.24h) 150 mg PO DAILY [facility] Last Admin: 07/05/23 09:01 Dose: 150 mg Cariprazine (Cariprazine Hcl 1.5 Mg Capsule) 4.5 mg PO BEDTIME [facility] Last Admin: 07/04/23 20:41 Dose: 4.5 mg Clonazepam (Clonazepam 1 Mg Tablet) 1 mg PO BEDTIME [facility] Last Admin: 07/04/23 20:43 Dose: 1 mg Divalproex Sodium (Divalproex Sodium Sprinkles 125 Mg ) 1,500 mg PO BEDTIME [facility] Last Admin: 07/04/23 20:39 Dose: 1,500 mg Donepezil HCl (Donepezil Hcl 10 Mg Tablet) 10 mg PO BEDTIME [facility] Last Admin: 07/04/23 20:43 Dose: 10 mg Lactic Acid (Ammonium Lactate 12 % Lotion 226 Gm Bottle) 1 appl TOPICAL BID PRN; Protocol PRN Reason: dry skin Last Admin: 06/19/23 12:54 Dose: 1 appl Magnesium Hydroxide (Milk Of Magnesia 30 Ml Oral.Susp) 30 ml PO DAILY PRN PRN Reason: Constipation Melatonin (Melatonin 3 Mg Tablet) 9 mg PO BEDTIME [facility] Last Admin: 07/04/23 20:41 Dose: 9 mg Multivitamins/Vitamin C (Multivitamin Tablet) 1 tab PO BEDTIME [facility] Last Admin: 07/04/23 20:41 Dose: 1 tab Trazodone HCl (Trazodone Hcl 50 Mg Tablet) 50 mg PO BEDTIME PRN PRN Reason: Insomnia Allergies Allergies Allergy/AdvReac Type Severity Reaction Status Date / Time No Known Allergies Allergy Verified 06/10/23 16:06 Assessment & Plan Assessment & Plan (1) Bipolar disorder, most recent episode depressed: Status: Acute Code(s): F31.30 - Bipolar disorder, current episode depressed, mild or moderate severity, unspecified Plan [email or web address] Continuent is a 67-year-old female with history of bipolar disorder II, PTSD, last psychiatric admission February 2023 who presents for worsening depression and face of going off her medications. Patient is somewhat of a poor historian due to significant psychomotor retardation from depression. She says she was stable after being discharged in February but at some point her mood went a little down and for some reason she can not describe, she decided to go off all of her medications. She said soon afterwards she got a deep depression.. And has since had no motivation, would just lay in bed, increased guilty feelings, poor concentration, low energy, low appetite. Denies any SI; denies any AVH. Denies any recent hypomanic episodes. She said she knows she should have stayed on her medications and wish she did. She does not usually let her depression go this long before getting back on them. Patient would like to be restarted on home medications. Patient denies any dysuria, urinary frequency or urgency Hospital course: 06/12 patient reports she has feeling a little better now that she is back on her medications and she is indeed more interactive and with some improved emotional expression. She would like to continue having her home meds titrated back to home dose. Discussed transitioning to Geriatric unit to which she agrees 06/13/23: Continue Rx. 2/11/24: Continue Rx. 06/20: Continue current regimen and plans 06/21: Continue current regimen and plans 06/22: Continue current plans and regimen 07/02 add clonazepam 1mg po qhs-- since pt had not slept in several days. 07/03: slept 6 hours last night. feeling well, looking forward to discharge. continue current mgmt. 07/04: slept 6 hours again last night. feeling well, looking forward to discharge. continue current mgmt. Plan: CV Q 15 minute checks Restart home meds and titrate back to home doses Increase to Bupropion Xl 300 Mg Continue Cariprazine 1.5 mg; titrate to Cariprazine Hcl 3 Mg BEDTIME [facility] Increase to Divalproex Sodium ER 750 mg, then 1000 mg; retitrate to 1500mg (or 1725mg?? need to confirm home dose) Continue Donepezil HCl (Donepezil Hcl 10 Mg Tablet) 10 mg PO BEDTIME [facility] Continue Melatonin (Melatonin 3 Mg Tablet) 3 mg PO BEDTIME [facility] Depakote level for June 17 and adjust Depakote accordingly. We are going to keep Depakote a 1000 mg p.o. q.h.s. since her Depakote level on June 17 was 76.5 we are going to repeat next week. On June 23 her Depakote level was 81.6. On June 27 we are increasing Vraylar to 4.5 mg p.o. q.h.s. to target mood lability. On June 29 we are lowering Wellbutrin XL up to 150 since she is slightly manic. Blood work for 06/30 and it came back in the mid 50s. Depakote has been increased up to 1500 mg p.o. q.h.s. and we will reassess next week. Reason for continued inpatient stay Substantial Risk for: inability to function and rapid decompensation Time Spent With Patient Time: Total time managing care of this patient today ____ minutes.
[2023-07-05 18:00] VITALS: BP 148/80; PULSE 93; RESP 18; TEMP 36.2; O2SAT 96
[2023-07-05] MEDS: Divalproex Sodium Sprinkles 125 MG CAP.DR.SPR 1500 MG PO (20:45)
[2023-07-05] MEDS: Cariprazine HCl 1.5 MG CAPSULE 4.5 MG PO (20:46)
[2023-07-05] MEDS: clonazePAM 1 MG TABLET PO (20:47)
[2023-07-05] MEDS: Melatonin 3 MG TABLET 9 MG PO (20:47)
[2023-07-05] MEDS: Donepezil HCl 10 MG TABLET PO (20:48)
[2023-07-05] MEDS: Multivitamin TABLET 1 TAB PO (20:54)
[2023-07-06] MEDS: Acetaminophen 325 MG TABLET 650 MG PO ×3 (03:49→23:31)
[2023-07-06 08:00] VITALS: BP 106/79; PULSE 80; RESP 18; TEMP 36.3; O2SAT 99
[2023-07-06 08:03] LABS: Estimated Average Glucose 103 mg/dL; Hemoglobin A1c % 5.2 % (<6.0)
[2023-07-06 08:09] LABS: Valproate 66.4 mcg/mL (50.0-100.0)
[2023-07-06 08:12] LABS: Alanine Aminotransferase 17 U/L (0-31); Albumin Level 3.9 g/dL (3.5-5.0); Alkaline Phosphatase 66 U/L (39-117); Anion Gap 12 (12-20); Aspartate Amino Transferase 25 U/L (5-31); Bilirubin Total 0.2 mg/dL (0.0-1.0); Blood Urea Nitrogen 25 mg/dL (9-16); Calcium 9.2 mg/dL (8.4-10.2); Carbon Dioxide 29 mmol/L (22-29); Chloride 103 mmol/L (96-108); Creatinine Clr Calc Pharmacy 58.7; Estimated Glomerular Filt Rate > 60; Glucose Fasting 92 mg/dL (60-99); Potassium 4.9 mmol/L (3.3-5.1); Sodium 139 mmol/L (135-145); Total Protein 7.2 g/dL (6.5-8.0)
[2023-07-06] MEDS: buPROPion HCl XL 150 MG TAB.ER.24H PO (08:23)
--- NOTE | 2023-07-06 11:30 | PC.NURSE ---
Edema noted to BLE. +2 to LLE and + 3 to RLE. MD Valencia notified.
--- NOTE | 2023-07-06 14:00 | P.PNPSI_ITS ---
Subjective Subjective Date of Service: 07/06/23 Reason For Visit: Dysregulated Subjective Notes: Conditional Voluntary Interim History: The nursing staff reported the patient had been compliant with treatment, she complained of bilateral edema. Her Depakote level today was 66.4 even though that it is on 1500 mg a day. She had poor sleep last night even though that we started home melatonin 9 mg and Klonopin 1 mg. On interview the patient denies new symptoms states that she is doing fine but looks hypomanic so we are increasing Klonopin up to 2 mg p.o. q.h.s. to target insomnia. Also complained of edema. Bloodwork and [facility] Mental Status Exam Mental Status Exam Patient Appearance: Appropriate Patient Orientation: Person and Situation Level of Consciousness: Awake and Appropriate Patient Behavior: Guarded and Passive Mood Description: Withdrawn Affect Description: Constricted Patient Cognition Impaired: Yes Ability to Follow Directions: Good Speech Pattern: Clear Hallucinations: None Delusions: Ideas of Reference Thought Process: Racing and Distracted Thought Content: positive for [place] Judgement: Poor Diagnostics Vital Signs (24Hr): Vital Signs - 24 hr 07/05/23 18:00 07/06/23 08:00 Temperature 97.1 F 97.3 F Pulse Rate 93 80 Respiratory Rate 18 18 Blood Pressure 148/80 H 106/79 Pulse Oximetry 96 99 Oxygen Delivery Method Room Air Room Air BMI result Body Mass Index 27.5 Labs 06/30/23 08:05 07/06/23 07:48 Labs: Laboratory Results - last 48 hr 07/06/23 07:48 Sodium 139 Potassium 4.9 Chloride 103 Carbon Dioxide 29 Anion Gap 12 BUN 25 H Creatinine 0.85 Estim Creat Clear Calc 58.7 Estimated GFR > 60 Fasting Glucose 92 Estimat Average Glucose 103 Hemoglobin A1c % 5.2 Calcium 9.2 Total Bilirubin 0.2 AST 25 ALT 17 Alkaline Phosphatase 66 Total Protein 7.2 Albumin 3.9 Valproic Acid 66.4 Medications Medications Current Medications Acetaminophen (Acetaminophen 325 Mg Tablet) 650 mg PO Q6H PRN PRN Reason: Headache/Pain Mild Scale (1-3) Last Admin: 07/06/23 03:49 Dose: 650 mg Al Hydroxide/Mg Hydroxide (Magnesium Hydrox/Alum Hydrox 30 Ml Oral.Susp) 30 ml PO Q6H PRN PRN Reason: Heartburn/Nausea Bupropion HCl (Bupropion Hcl Xl 150 Mg Tab.Er.24h) 150 mg PO DAILY [facility] Last Admin: 07/06/23 08:23 Dose: 150 mg Cariprazine (Cariprazine Hcl 1.5 Mg Capsule) 4.5 mg PO BEDTIME [facility] Last Admin: 07/05/23 20:46 Dose: 4.5 mg Clonazepam (Clonazepam 1 Mg Tablet) 2 mg PO BEDTIME [facility] Divalproex Sodium (Divalproex Sodium Sprinkles 125 Mg Jordi.) 1,500 mg PO BEDTIME [facility] Last Admin: 07/05/23 20:45 Dose: 1,500 mg Donepezil HCl (Donepezil Hcl 10 Mg Tablet) 10 mg PO BEDTIME [facility] Last Admin: 07/05/23 20:48 Dose: 10 mg Lactic Acid (Ammonium Lactate 12 % Lotion 226 Gm Bottle) 1 appl TOPICAL BID PRN; Protocol PRN Reason: dry skin Last Admin: 06/19/23 12:54 Dose: 1 appl Magnesium Hydroxide (Milk Of Magnesia 30 Ml Oral.Susp) 30 ml PO DAILY PRN PRN Reason: Constipation Melatonin (Melatonin 3 Mg Tablet) 9 mg PO BEDTIME [facility] Last Admin: 07/05/23 20:47 Dose: 9 mg Multivitamins/Vitamin C (Multivitamin Tablet) 1 tab PO BEDTIME [facility] Last Admin: 07/05/23 20:54 Dose: 1 tab Trazodone HCl (Trazodone Hcl 50 Mg Tablet) 50 mg PO BEDTIME PRN PRN Reason: Insomnia Allergies Allergies Allergy/AdvReac Type Severity Reaction Status Date / Time No Known Allergies Allergy Verified 06/10/23 16:06 Assessment & Plan Assessment & Plan (1) Bipolar disorder, most recent episode depressed: Status: Acute Code(s): F31.30 - Bipolar disorder, current episode depressed, mild or moderate severity, unspecified Plan [email or web address] Continuent is a 67-year-old female with history of bipolar disorder II, PTSD, last psychiatric admission February 2023 who presents for worsening depression and face of going off her medications. Patient is somewhat of a poor historian due to significant psychomotor retardation from depression. She says she was stable after being discharged in February but at some point her mood went a little down and for some reason she can not describe, she decided to go off all of her medications. She said soon afterwards she got a deep depression.. And has since had no motivation, would just lay in bed, increased guilty feelings, poor concentration, low energy, low appetite. Denies any SI; denies any AVH. Denies any recent hypomanic episodes. She said she knows she should have stayed on her medications and wish she did. She does not usually let her depression go this long before getting back on them. Patient would like to be restarted on home medications. Patient denies any dysuria, urinary frequency or urgency Hospital course: 06/12 patient reports she has feeling a little better now that she is back on her medications and she is indeed more interactive and with some improved emotional expression. She would like to continue having her home meds titrated back to home dose. Discussed transitioning to Geriatric unit to which she agrees 06/13/23: Continue Rx. 06/14/23: Continue Rx. 06/20: Continue current regimen and plans 06/21: Continue current regimen and plans 06/22: Continue current plans and regimen 07/02 add clonazepam 1mg po qhs-- since pt had not slept in several days. 07/03: slept 6 hours last night. feeling well, looking forward to discharge. continue current mgmt. 07/04: slept 6 hours again last night. feeling well, looking forward to discharge. continue current mgmt. Plan: CV Q 15 minute checks Restart home meds and titrate back to home doses Increase to Bupropion Xl 300 Mg Continue Cariprazine 1.5 mg; titrate to Cariprazine Hcl 3 Mg BEDTIME [facility] Increase to Divalproex Sodium ER 750 mg, then 1000 mg; retitrate to 1500mg (or 1725mg?? need to confirm home dose) Continue Donepezil HCl (Donepezil Hcl 10 Mg Tablet) 10 mg PO BEDTIME [facility] Continue Melatonin (Melatonin 3 Mg Tablet) 3 mg PO BEDTIME [facility] Depakote level for June 17 and adjust Depakote accordingly. We are going to keep Depakote a 1000 mg p.o. q.h.s. since her Depakote level on June 17 was 76.5 we are going to repeat next week. On June 23 her Depakote level was 81.6. On June 27 we are increasing Vraylar to 4.5 mg p.o. q.h.s. to target mood lability. On June 29 we are lowering Wellbutrin XL up to 150 since she is slightly manic. Blood work for 06/30 and it came back in the mid 50s. Depakote has been increased up to 1500 mg p.o. q.h.s. and we will reassess next week. It came back to 66 mg. We are increasing Klonopin to 2 mg p.o. q.h.s.. Reason for continued inpatient stay Substantial Risk for: inability to function, rapid decompensation and med/psych decompensation Time Spent With Patient Time: Total time managing care of this patient today __20__ minutes.
[2023-07-06 18:00] VITALS: BP 143/83; PULSE 93; RESP 16; TEMP 36.8; O2SAT 98
[2023-07-06] MEDS: clonazePAM 1 MG TABLET 2 MG PO (20:09)
[2023-07-06] MEDS: Donepezil HCl 10 MG TABLET PO (20:11)
[2023-07-06] MEDS: Multivitamin TABLET 1 TAB PO (20:11)
[2023-07-06] MEDS: Melatonin 3 MG TABLET 9 MG PO (20:12)
[2023-07-06] MEDS: Cariprazine HCl 1.5 MG CAPSULE 4.5 MG PO (20:12)
[2023-07-06] MEDS: Divalproex Sodium Sprinkles 125 MG CAP.DR.SPR 1500 MG PO (20:14)
[2023-07-07] MEDS: Acetaminophen 325 MG TABLET 650 MG PO ×2 (05:58→20:16)
[2023-07-07 06:00] VITALS: BP 131/67; PULSE 85; RESP 18; TEMP 36.6; O2SAT 100
--- NOTE | 2023-07-07 08:25 | P.PNPSI_ITS ---
Subjective Subjective Date of Service: 07/07/23 Reason For Visit: Dysregulated Subjective Notes: Conditional Voluntary Interim History: The nursing staff reported the patient had been compliant with treatment, she usually does not sleep at night since she is hypomanic but we increase recently Klonopin to 2 mg p.o. q.h.s.. On interview the patient denies new symptoms, waiting for placement. She still looks slightly hypomanic even though that she has on a therapeutic dose of Depakote. She complained yesterday of edema most likely induced by Depakote so we are ordering teds stockings. Mental Status Exam Mental Status Exam Patient Appearance: Well Grooomed and Appropriate Patient Orientation: Person and Situation Level of Consciousness: Awake and Appropriate Patient Behavior: Guarded and Passive Mood Description: Withdrawn Affect Description: Constricted Patient Cognition Impaired: Yes Ability to Follow Directions: Good Speech Pattern: Clear Hallucinations: None Delusions: Not Present Thought Process: Racing and Distracted Thought Content: positive for Circumstantial Judgement: Fair Diagnostics Vital Signs (24Hr): Vital Signs - 24 hr 07/06/23 18:00 Temperature 98.3 F Pulse Rate 93 Respiratory Rate 16 Blood Pressure 143/83 H Pulse Oximetry 98 Oxygen Delivery Method Room Air BMI result Body Mass Index 27.5 Labs 06/30/23 08:05 07/06/23 07:48 Labs: Laboratory Results - last 48 hr 07/06/23 07:48 Sodium 139 Potassium 4.9 Chloride 103 Carbon Dioxide 29 Anion Gap 12 BUN 25 H Creatinine 0.85 Estim Creat Clear Calc 58.7 Estimated GFR > 60 Fasting Glucose 92 Estimat Average Glucose 103 Hemoglobin A1c % 5.2 Calcium 9.2 Total Bilirubin 0.2 AST 25 ALT 17 Alkaline Phosphatase 66 Total Protein 7.2 Albumin 3.9 Valproic Acid 66.4 Medications Medications Current Medications Acetaminophen (Acetaminophen 325 Mg Tablet) 650 mg PO Q6H PRN PRN Reason: Headache/Pain Mild Scale (1-3) Last Admin: 07/07/23 05:58 Dose: 650 mg Al Hydroxide/Mg Hydroxide (Magnesium Hydrox/Alum Hydrox 30 Ml Oral.Susp) 30 ml PO Q6H PRN PRN Reason: Heartburn/Nausea Bupropion HCl (Bupropion Hcl Xl 150 Mg Tab.Er.24h) 150 mg PO DAILY [facility] Last Admin: 07/06/23 08:23 Dose: 150 mg Cariprazine (Cariprazine Hcl 1.5 Mg Capsule) 4.5 mg PO BEDTIME [facility] Last Admin: 07/06/23 20:12 Dose: 4.5 mg Clonazepam (Clonazepam 1 Mg Tablet) 2 mg PO BEDTIME [facility] Last Admin: 07/06/23 20:09 Dose: 2 mg Divalproex Sodium (Divalproex Sodium Sprinkles 125 Mg ) 1,500 mg PO BEDTIME [facility] Last Admin: 07/06/23 20:14 Dose: 1,500 mg Donepezil HCl (Donepezil Hcl 10 Mg Tablet) 10 mg PO BEDTIME [facility] Last Admin: 07/06/23 20:11 Dose: 10 mg Lactic Acid (Ammonium Lactate 12 % Lotion 226 Gm Bottle) 1 appl TOPICAL BID PRN; Protocol PRN Reason: dry skin Last Admin: 06/19/23 12:54 Dose: 1 appl Magnesium Hydroxide (Milk Of Magnesia 30 Ml Oral.Susp) 30 ml PO DAILY PRN PRN Reason: Constipation Melatonin (Melatonin 3 Mg Tablet) 9 mg PO BEDTIME [facility] Last Admin: 07/06/23 20:12 Dose: 9 mg Multivitamins/Vitamin C (Multivitamin Tablet) 1 tab PO BEDTIME [facility] Last Admin: 07/06/23 20:11 Dose: 1 tab Trazodone HCl (Trazodone Hcl 50 Mg Tablet) 50 mg PO BEDTIME PRN PRN Reason: Insomnia Allergies Allergies Allergy/AdvReac Type Severity Reaction Status Date / Time No Known Allergies Allergy Verified 06/10/23 16:06 Assessment & Plan Assessment & Plan (1) Bipolar disorder, most recent episode depressed: Status: Acute Code(s): F31.30 - Bipolar disorder, current episode depressed, mild or moderate severity, unspecified Plan [email or web address] Continuent is a 67-year-old female with history of bipolar disorder II, PTSD, last psychiatric admission February 2023 who presents for worsening depression and face of going off her medications. Patient is somewhat of a poor historian due to significant psychomotor retardation from depression. She says she was stable after being discharged in February but at some point her mood went a little down and for some reason she can not describe, she decided to go off all of her medications. She said soon afterwards she got a deep depression.. And has since had no motivation, would just lay in bed, increased guilty feelings, poor concentration, low energy, low appetite. Denies any SI; denies any AVH. Denies any recent hypomanic episodes. She said she knows she should have stayed on her medications and wish she did. She does not usually let her depression go this long before getting back on them. Patient would like to be restarted on home medications. Patient denies any dysuria, urinary frequency or urgency Hospital course: 06/12 patient reports she has feeling a little better now that she is back on her medications and she is indeed more interactive and with some improved emotional expression. She would like to continue having her home meds titrated back to home dose. Discussed transitioning to Geriatric unit to which she agrees 06/13/23: Continue Rx. 06/14/23: Continue Rx. 06/20: Continue current regimen and plans 06/21: Continue current regimen and plans 06/22: Continue current plans and regimen 07/02 add clonazepam 1mg po qhs-- since pt had not slept in several days. 07/03: slept 6 hours last night. feeling well, looking forward to discharge. continue current mgmt. 07/04: slept 6 hours again last night. feeling well, looking forward to discharge. continue current mgmt. Plan: CV Q 15 minute checks Restart home meds and titrate back to home doses Increase to Bupropion Xl 300 Mg Continue Cariprazine 1.5 mg; titrate to Cariprazine Hcl 3 Mg BEDTIME [facility] Increase to Divalproex Sodium ER 750 mg, then 1000 mg; retitrate to 1500mg (or 1725mg?? need to confirm home dose) Continue Donepezil HCl (Donepezil Hcl 10 Mg Tablet) 10 mg PO BEDTIME [facility] Continue Melatonin (Melatonin 3 Mg Tablet) 3 mg PO BEDTIME [facility] Depakote level for June 17 and adjust Depakote accordingly. We are going to keep Depakote a 1000 mg p.o. q.h.s. since her Depakote level on June 17 was 76.5 we are going to repeat next week. On June 23 her Depakote level was 81.6. On June 27 we are increasing Vraylar to 4.5 mg p.o. q.h.s. to target mood lability. On June 29 we are lowering Wellbutrin XL up to 150 since she is slightly manic. Blood work for 06/30 and it came back in the mid 50s. Depakote has been increased up to 1500 mg p.o. q.h.s. and we will reassess next week. It came back to 66 mg. We are increasing Klonopin to 2 mg p.o. q.h.s.. Reason for continued inpatient stay Substantial Risk for: inability to function, rapid decompensation and med/psych decompensation Time Spent With Patient Time: Total time managing care of this patient today __20__ minutes.
[2023-07-07] MEDS: buPROPion HCl XL 150 MG TAB.ER.24H PO (08:27)
[2023-07-07 19:35] VITALS: BP 162/77; PULSE 90; RESP 18; TEMP 36.3; O2SAT 100
[2023-07-07] MEDS: clonazePAM 1 MG TABLET 2 MG PO (20:16)
[2023-07-07] MEDS: Multivitamin TABLET 1 TAB PO (20:16)
[2023-07-07] MEDS: Melatonin 3 MG TABLET 9 MG PO (20:16)
[2023-07-07] MEDS: Cariprazine HCl 1.5 MG CAPSULE 4.5 MG PO (20:16)
[2023-07-07] MEDS: Donepezil HCl 10 MG TABLET PO (20:16)
[2023-07-08 08:20] VITALS: BP 123/65; PULSE 80; RESP 16; O2SAT 100
[2023-07-08] MEDS: buPROPion HCl XL 150 MG TAB.ER.24H PO (08:22)
--- NOTE | 2023-07-08 13:57 | P.PNPSI_ITS ---
Subjective Subjective Date of Service: 07/08/23 Reason For Visit: Dysregulated Subjective Notes: Conditional Voluntary Interim History: The nursing staff reported the patient had been sleeping poorly on and off 3 hours at night. She remains intrusive but easily redirectable. On interview the patient denies new symptoms, she has not realistic expectations for discharge planning. We discussed risks and options and she agreed to increase Vraylar up to 6 mg. Still hypomanic Mental Status Exam Mental Status Exam Patient Appearance: Well Grooomed and Appropriate Patient Orientation: Person and Situation Level of Consciousness: Awake and Appropriate Patient Behavior: Guarded and Passive Mood Description: Calm Affect Description: Labile Patient Cognition Impaired: Yes Ability to Follow Directions: Good Speech Pattern: Rapid Hallucinations: None Delusions: Ideas of Reference Thought Process: Distracted and Slowed Thinking Thought Content: positive for [place] and positive for Poverty of Content Judgement: Fair Diagnostics Vital Signs (24Hr): Vital Signs - 24 hr 07/07/23 19:35 07/08/23 08:20 Temperature 97.4 F Pulse Rate 90 80 Respiratory Rate 18 16 Blood Pressure 162/77 H 123/65 Pulse Oximetry 100 100 Oxygen Delivery Method Room Air Room Air BMI result Body Mass Index 27.5 Labs 06/30/23 08:05 07/06/23 07:48 Medications Medications Current Medications Acetaminophen (Acetaminophen 325 Mg Tablet) 650 mg PO Q6H PRN PRN Reason: Headache/Pain Mild Scale (1-3) Last Admin: 07/07/23 20:16 Dose: 650 mg Al Hydroxide/Mg Hydroxide (Magnesium Hydrox/Alum Hydrox 30 Ml Oral.Susp) 30 ml PO Q6H PRN PRN Reason: Heartburn/Nausea Bupropion HCl (Bupropion Hcl Xl 150 Mg Tab.Er.24h) 150 mg PO DAILY [facility] Last Admin: 07/08/23 08:22 Dose: 150 mg Cariprazine (Cariprazine Hcl 3 Mg Capsule) 6 mg PO BEDTIME [facility] Clonazepam (Clonazepam 1 Mg Tablet) 2 mg PO BEDTIME [facility] Last Admin: 07/07/23 20:16 Dose: 2 mg Donepezil HCl (Donepezil Hcl 10 Mg Tablet) 10 mg PO BEDTIME [facility] Last Admin: 07/07/23 20:16 Dose: 10 mg Lactic Acid (Ammonium Lactate 12 % Lotion 226 Gm Bottle) 1 appl TOPICAL BID PRN; Protocol PRN Reason: dry skin Last Admin: 06/19/23 12:54 Dose: 1 appl Magnesium Hydroxide (Milk Of Magnesia 30 Ml Oral.Susp) 30 ml PO DAILY PRN PRN Reason: Constipation Melatonin (Melatonin 3 Mg Tablet) 9 mg PO BEDTIME [facility] Last Admin: 07/07/23 20:16 Dose: 9 mg Multivitamins/Vitamin C (Multivitamin Tablet) 1 tab PO BEDTIME [facility] Last Admin: 07/07/23 20:16 Dose: 1 tab Trazodone HCl (Trazodone Hcl 50 Mg Tablet) 50 mg PO BEDTIME PRN PRN Reason: Insomnia Valproic Acid (Valproic Acid (As Sodium Salt) 250 Mg/5 Ml Solution) 1,500 mg PO BEDTIME [facility] Last Admin: 07/07/23 20:16 Dose: 1,500 mg Allergies Allergies Allergy/AdvReac Type Severity Reaction Status Date / Time No Known Allergies Allergy Verified 06/10/23 16:06 Assessment & Plan Assessment & Plan (1) Bipolar disorder, most recent episode depressed: Status: Acute Code(s): F31.30 - Bipolar disorder, current episode depressed, mild or moderate severity, unspecified Plan [email or web address] Continuent is a 67-year-old female with history of bipolar disorder II, PTSD, last psychiatric admission February 2023 who presents for worsening depression and face of going off her medications. Patient is somewhat of a poor historian due to significant psychomotor retardation from depression. She says she was stable after being discharged in February but at some point her mood went a little down and for some reason she can not describe, she decided to go off all of her medications. She said soon afterwards she got a deep depression.. And has since had no motivation, would just lay in bed, increased guilty feelings, poor concentration, low energy, low appetite. Denies any SI; denies any AVH. Denies any recent hypomanic episodes. She said she knows she should have stayed on her medications and wish she did. She does not usually let her depression go this long before getting back on them. Patient would like to be restarted on home medications. Patient denies any dysuria, urinary frequency or urgency Hospital course: 06/12 patient reports she has feeling a little better now that she is back on her medications and she is indeed more interactive and with some improved emotional expression. She would like to continue having her home meds titrated back to home dose. Discussed transitioning to Geriatric unit to which she agrees 06/13/23: Continue Rx. 06/14/23: Continue Rx. 06/20: Continue current regimen and plans 06/21: Continue current regimen and plans 06/22: Continue current plans and regimen 07/02 add clonazepam 1mg po qhs-- since pt had not slept in several days. 07/03: slept 6 hours last night. feeling well, looking forward to discharge. continue current mgmt. 07/04: slept 6 hours again last night. feeling well, looking forward to discharge. continue current mgmt. Plan: CV Q 15 minute checks Restart home meds and titrate back to home doses Increase to Bupropion Xl 300 Mg Continue Cariprazine 1.5 mg; titrate to Cariprazine Hcl 3 Mg BEDTIME [facility] Increase to Divalproex Sodium ER 750 mg, then 1000 mg; retitrate to 1500mg (or 1725mg?? need to confirm home dose) Continue Donepezil HCl (Donepezil Hcl 10 Mg Tablet) 10 mg PO BEDTIME [facility] Continue Melatonin (Melatonin 3 Mg Tablet) 3 mg PO BEDTIME [facility] Depakote level for June 17 and adjust Depakote accordingly. We are going to keep Depakote a 1000 mg p.o. q.h.s. since her Depakote level on June 17 was 76.5 we are going to repeat next week. On June 23 her Depakote level was 81.6. On June 27 we are increasing Vraylar to 4.5 mg p.o. q.h.s. to target mood lability. On June 29 we are lowering Wellbutrin XL up to 150 since she is slightly manic. Blood work for 06/30 and it came back in the mid 50s. Depakote has been increased up to 1500 mg p.o. q.h.s. and we will reassess next week. It came back to 66 mg. We are increasing Klonopin to 2 mg p.o. q.h.s.. On July 07 we increase regular up to 6 mg p.o. q.h.s. to target hypomania Reason for continued inpatient stay Substantial Risk for: inability to function, rapid decompensation and med/psych decompensation Time Spent With Patient Time: Total time managing care of this patient today __20__ minutes.
[2023-07-08] MEDS: Acetaminophen 325 MG TABLET 650 MG PO (15:19)
[2023-07-08 19:40] VITALS: BP 101/52; PULSE 100; RESP 18; TEMP 36.5; O2SAT 99
[2023-07-08] MEDS: clonazePAM 1 MG TABLET 2 MG PO (20:32)
[2023-07-08] MEDS: Melatonin 3 MG TABLET 9 MG PO (20:32)
[2023-07-08] MEDS: Donepezil HCl 10 MG TABLET PO (20:32)
[2023-07-08] MEDS: Multivitamin TABLET 1 TAB PO (20:32)
[2023-07-08] MEDS: Cariprazine HCl 3 MG CAPSULE 6 MG PO (20:33)
[2023-07-09] MEDS: Acetaminophen 325 MG TABLET 650 MG PO ×2 (04:41→13:58)
[2023-07-09 07:00] VITALS: BMI 28.5
[2023-07-09 08:08] VITALS: BP 144/71; PULSE 92; RESP 16; TEMP 36; O2SAT 98
[2023-07-09] MEDS: buPROPion HCl XL 150 MG TAB.ER.24H PO (08:10)
--- NOTE | 2023-07-09 14:20 | HO.PSYCHPN ---
Subjective Subjective Date of Service: 07/09/23 Reason For Visit: Dysregulated Subjective Notes: Conditional Voluntary Interim History: The nursing staff reported the patient had been compliant with treatment, she slept poorly last night only 4 hours. Still hypomanic. We recently increased regular up to 6 mg daily. On interview the patient denies new symptoms, waiting for placement. Mental Status Exam Mental Status Exam Patient Appearance: Well Grooomed and Appropriate Patient Orientation: Person, Place and Situation Level of Consciousness: Awake and Appropriate Patient Behavior: Appropriate and Passive Mood Description: Calm Affect Description: Labile Patient Cognition Impaired: Yes Ability to Follow Directions: Good Speech Pattern: Clear Hallucinations: None Delusions: Not Present Thought Process: Racing Thought Content: positive for Circumstantial Judgement: Fair Diagnostics Vital Signs (24Hr): Vital Signs - 24 hr 07/08/23 19:40 07/09/23 08:08 Temperature 97.7 F 96.8 F Pulse Rate 100 92 Respiratory Rate 18 16 Blood Pressure 101/52 L 144/71 H Pulse Oximetry 99 98 Oxygen Delivery Method Room Air Room Air BMI result Body Mass Index 27.5 Labs 06/30/23 08:05 07/06/23 07:48 Medications Medications Current Medications Acetaminophen (Acetaminophen 325 Mg Tablet) 650 mg PO Q6H PRN PRN Reason: Headache/Pain Mild Scale (1-3) Last Admin: 07/09/23 13:58 Dose: 650 mg Al Hydroxide/Mg Hydroxide (Magnesium Hydrox/Alum Hydrox 30 Ml Oral.Susp) 30 ml PO Q6H PRN PRN Reason: Heartburn/Nausea Bupropion HCl (Bupropion Hcl Xl 150 Mg Tab.Er.24h) 150 mg PO DAILY [facility] Last Admin: 07/09/23 08:10 Dose: 150 mg Cariprazine (Cariprazine Hcl 3 Mg Capsule) 6 mg PO BEDTIME [facility] Last Admin: 07/08/23 20:33 Dose: 6 mg Clonazepam (Clonazepam 1 Mg Tablet) 2 mg PO BEDTIME [facility] Last Admin: 07/08/23 20:32 Dose: 2 mg Donepezil HCl (Donepezil Hcl 10 Mg Tablet) 10 mg PO BEDTIME [facility] Last Admin: 07/08/23 20:32 Dose: 10 mg Lactic Acid (Ammonium Lactate 12 % Lotion 226 Gm Bottle) 1 appl TOPICAL BID PRN; Protocol PRN Reason: dry skin Last Admin: 06/19/23 12:54 Dose: 1 appl Magnesium Hydroxide (Milk Of Magnesia 30 Ml Oral.Susp) 30 ml PO DAILY PRN PRN Reason: Constipation Melatonin (Melatonin 3 Mg Tablet) 9 mg PO BEDTIME [facility] Last Admin: 07/08/23 20:32 Dose: 9 mg Multivitamins/Vitamin C (Multivitamin Tablet) 1 tab PO BEDTIME [facility] Last Admin: 07/08/23 20:32 Dose: 1 tab Trazodone HCl (Trazodone Hcl 50 Mg Tablet) 50 mg PO BEDTIME PRN PRN Reason: Insomnia Valproic Acid (Valproic Acid (As Sodium Salt) 250 Mg/5 Ml Solution) 1,500 mg PO BEDTIME [facility] Last Admin: 07/08/23 20:33 Dose: 1,500 mg Allergies Allergies Allergy/AdvReac Type Severity Reaction Status Date / Time No Known Allergies Allergy Verified 06/10/23 16:06 Assessment & Plan Assessment & Plan (1) Bipolar disorder, most recent episode depressed: Status: Acute Code(s): F31.30 - Bipolar disorder, current episode depressed, mild or moderate severity, unspecified Plan [email or web address] Continuent is a 67-year-old female with history of bipolar disorder II, PTSD, last psychiatric admission February 2023 who presents for worsening depression and face of going off her medications. Patient is somewhat of a poor historian due to significant psychomotor retardation from depression. She says she was stable after being discharged in February but at some point her mood went a little down and for some reason she can not describe, she decided to go off all of her medications. She said soon afterwards she got a deep depression.. And has since had no motivation, would just lay in bed, increased guilty feelings, poor concentration, low energy, low appetite. Denies any SI; denies any AVH. Denies any recent hypomanic episodes. She said she knows she should have stayed on her medications and wish she did. She does not usually let her depression go this long before getting back on them. Patient would like to be restarted on home medications. Patient denies any dysuria, urinary frequency or urgency Hospital course: 06/12 patient reports she has feeling a little better now that she is back on her medications and she is indeed more interactive and with some improved emotional expression. She would like to continue having her home meds titrated back to home dose. Discussed transitioning to Geriatric unit to which she agrees 06/13/23: Continue Rx. 06/14/23: Continue Rx. 06/20: Continue current regimen and plans 06/21: Continue current regimen and plans 06/22: Continue current plans and regimen 07/02 add clonazepam 1mg po qhs-- since pt had not slept in several days. 07/03: slept 6 hours last night. feeling well, looking forward to discharge. continue current mgmt. 07/04: slept 6 hours again last night. feeling well, looking forward to discharge. continue current mgmt. Plan: CV Q 15 minute checks Restart home meds and titrate back to home doses Increase to Bupropion Xl 300 Mg Continue Cariprazine 1.5 mg; titrate to Cariprazine Hcl 3 Mg BEDTIME [facility] Increase to Divalproex Sodium ER 750 mg, then 1000 mg; retitrate to 1500mg (or 1725mg?? need to confirm home dose) Continue Donepezil HCl (Donepezil Hcl 10 Mg Tablet) 10 mg PO BEDTIME [facility] Continue Melatonin (Melatonin 3 Mg Tablet) 3 mg PO BEDTIME [facility] Depakote level for June 17 and adjust Depakote accordingly. We are going to keep Depakote a 1000 mg p.o. q.h.s. since her Depakote level on June 17 was 76.5 we are going to repeat next week. On June 23 her Depakote level was 81.6. On June 27 we are increasing Vraylar to 4.5 mg p.o. q.h.s. to target mood lability. On June 29 we are lowering Wellbutrin XL up to 150 since she is slightly manic. Blood work for 06/30 and it came back in the mid 50s. Depakote has been increased up to 1500 mg p.o. q.h.s. and we will reassess next week. It came back to 66 mg. We are increasing Klonopin to 2 mg p.o. q.h.s.. On July 07 we increase regular up to 6 mg p.o. q.h.s. to target hypomania Reason for continued inpatient stay Substantial Risk for: inability to function, rapid decompensation and med/psych decompensation Time Spent With Patient Time: Total time managing care of this patient today __20__ minutes.
[2023-07-09 18:00] VITALS: BP 146/68; PULSE 99; RESP 18; TEMP 36.3; O2SAT 100
[2023-07-09] MEDS: Donepezil HCl 10 MG TABLET PO (20:37)
[2023-07-09] MEDS: Melatonin 3 MG TABLET 9 MG PO (20:37)
[2023-07-09] MEDS: Cariprazine HCl 3 MG CAPSULE 6 MG PO (20:38)
[2023-07-09] MEDS: Multivitamin TABLET 1 TAB PO (20:38)
[2023-07-09] MEDS: clonazePAM 1 MG TABLET 2 MG PO (20:38)
[2023-07-10] MEDS: Acetaminophen 325 MG TABLET 650 MG PO (04:45)
[2023-07-10 08:06] VITALS: BP 138/76; PULSE 87; RESP 18; TEMP 36.2; O2SAT 98
[2023-07-10] MEDS: buPROPion HCl XL 150 MG TAB.ER.24H PO (08:40)
--- NOTE | 2023-07-10 13:32 | P.PNPSI_ITS ---
Subjective Subjective Date of Service: 07/10/23 Reason For Visit: Dysregulated Interim History: in good spirits, sharing her happiness at plan to discharge thursday. no complaints or requests. per staff, no issues. Mental Status Exam Mental Status Exam Patient Appearance: Well Grooomed and Appropriate Patient Orientation: Person, Place and Situation Level of Consciousness: Awake and Appropriate Patient Behavior: Appropriate and Passive Mood Description: Calm Affect Description: Labile Patient Cognition Impaired: Yes Ability to Follow Directions: Good Speech Pattern: Clear Hallucinations: None Delusions: Not Present Thought Process: Racing Thought Content: positive for Circumstantial Judgement: Fair Diagnostics Vital Signs (24Hr): Vital Signs - 24 hr 07/09/23 18:00 07/10/23 08:06 Temperature 97.4 F 97.2 F Pulse Rate 99 87 Respiratory Rate 18 18 Blood Pressure 146/68 H 138/76 Pulse Oximetry 100 98 Oxygen Delivery Method Room Air Room Air BMI result Body Mass Index 28.5 Labs 06/30/23 08:05 07/06/23 07:48 Medications Medications Current Medications Acetaminophen (Acetaminophen 325 Mg Tablet) 650 mg PO Q6H PRN PRN Reason: Headache/Pain Mild Scale (1-3) Last Admin: 07/10/23 04:45 Dose: 650 mg Al Hydroxide/Mg Hydroxide (Magnesium Hydrox/Alum Hydrox 30 Ml Oral.Susp) 30 ml PO Q6H PRN PRN Reason: Heartburn/Nausea Bupropion HCl (Bupropion Hcl Xl 150 Mg Tab.Er.24h) 150 mg PO DAILY [facility] Last Admin: 07/10/23 08:40 Dose: 150 mg Cariprazine (Cariprazine Hcl 3 Mg Capsule) 6 mg PO BEDTIME [facility] Last Admin: 07/09/23 20:38 Dose: 6 mg Clonazepam (Clonazepam 1 Mg Tablet) 2 mg PO BEDTIME [facility] Last Admin: 07/09/23 20:38 Dose: 2 mg Donepezil HCl (Donepezil Hcl 10 Mg Tablet) 10 mg PO BEDTIME [facility] Last Admin: 07/09/23 20:37 Dose: 10 mg Lactic Acid (Ammonium Lactate 12 % Lotion 226 Gm Bottle) 1 appl TOPICAL BID PRN; Protocol PRN Reason: dry skin Last Admin: 06/19/23 12:54 Dose: 1 appl Magnesium Hydroxide (Milk Of Magnesia 30 Ml Oral.Susp) 30 ml PO DAILY PRN PRN Reason: Constipation Melatonin (Melatonin 3 Mg Tablet) 9 mg PO BEDTIME [facility] Last Admin: 07/09/23 20:37 Dose: 9 mg Multivitamins/Vitamin C (Multivitamin Tablet) 1 tab PO BEDTIME [facility] Last Admin: 07/09/23 20:38 Dose: 1 tab Trazodone HCl (Trazodone Hcl 50 Mg Tablet) 50 mg PO BEDTIME PRN PRN Reason: Insomnia Valproic Acid (Valproic Acid (As Sodium Salt) 250 Mg/5 Ml Solution) 1,500 mg PO BEDTIME [facility] Last Admin: 07/09/23 20:35 Dose: 1,500 mg Allergies Allergies Allergy/AdvReac Type Severity Reaction Status Date / Time No Known Allergies Allergy Verified 06/10/23 16:06 Assessment & Plan Assessment & Plan (1) Bipolar disorder, most recent episode depressed: Status: Acute Code(s): F31.30 - Bipolar disorder, current episode depressed, mild or moderate severity, unspecified Plan [email or web address] Continuent is a 67-year-old female with history of bipolar disorder II, PTSD, last psychiatric admission February 2023 who presents for worsening depression and face of going off her medications. Patient is somewhat of a poor historian due to significant psychomotor retardation from depression. She says she was stable after being discharged in February but at some point her mood went a little down and for some reason she can not describe, she decided to go off all of her medications. She said soon afterwards she got a deep depression.. And has since had no motivation, would just lay in bed, increased guilty feelings, poor concentration, low energy, low appetite. Denies any SI; denies any AVH. Denies any recent hypomanic episodes. She said she knows she should have stayed on her medications and wish she did. She does not usually let her depression go this long before getting back on them. Patient would like to be restarted on home medications. Patient denies any dysuria, urinary frequency or urgency Hospital course: 06/12 patient reports she has feeling a little better now that she is back on her medications and she is indeed more interactive and with some improved emotional expression. She would like to continue having her home meds titrated back to home dose. Discussed transitioning to Geriatric unit to which she agrees 06/13/23: Continue Rx. 06/14/23: Continue Rx. 06/20: Continue current regimen and plans 06/21: Continue current regimen and plans 06/22: Continue current plans and regimen 07/02 add clonazepam 1mg po qhs-- since pt had not slept in several days. 07/03: slept 6 hours last night. feeling well, looking forward to discharge. continue current mgmt. 07/04: slept 6 hours again last night. feeling well, looking forward to discharge. continue current mgmt. Plan: CV Q 15 minute checks Restart home meds and titrate back to home doses Increase to Bupropion Xl 300 Mg Continue Cariprazine 1.5 mg; titrate to Cariprazine Hcl 3 Mg BEDTIME [facility] Increase to Divalproex Sodium ER 750 mg, then 1000 mg; retitrate to 1500mg (or 1725mg?? need to confirm home dose) Continue Donepezil HCl (Donepezil Hcl 10 Mg Tablet) 10 mg PO BEDTIME [facility] Continue Melatonin (Melatonin 3 Mg Tablet) 3 mg PO BEDTIME [facility] Depakote level for June 17 and adjust Depakote accordingly. We are going to keep Depakote a 1000 mg p.o. q.h.s. since her Depakote level on June 17 was 76.5 we are going to repeat next week. On June 23 her Depakote level was 81.6. On June 27 we are increasing Vraylar to 4.5 mg p.o. q.h.s. to target mood lability. On June 29 we are lowering Wellbutrin XL up to 150 since she is slightly manic. Blood work for 06/30 and it came back in the mid 50s. Depakote has been increased up to 1500 mg p.o. q.h.s. and we will reassess next week. It came back to 66 mg. We are increasing Klonopin to 2 mg p.o. q.h.s.. On July 07 we increase regular up to 6 mg p.o. q.h.s. to target hypomania Reason for continued inpatient stay Substantial Risk for: inability to function and rapid decompensation Time Spent With Patient Time: Total time managing care of this patient today ____ minutes.
[2023-07-10 18:00] VITALS: BP 133/63; PULSE 91; RESP 16; TEMP 36.2; O2SAT 99
[2023-07-10] MEDS: Melatonin 3 MG TABLET 9 MG PO (21:23)
[2023-07-10] MEDS: Cariprazine HCl 3 MG CAPSULE 6 MG PO (21:24)
[2023-07-10] MEDS: clonazePAM 1 MG TABLET 2 MG PO (21:25)
[2023-07-10] MEDS: Donepezil HCl 10 MG TABLET PO (21:26)
[2023-07-10] MEDS: Multivitamin TABLET 1 TAB PO (21:26)
[2023-07-11] MEDS: Acetaminophen 325 MG TABLET 650 MG PO ×2 (01:38→18:10)
[2023-07-11 06:00] VITALS: BP 136/66; PULSE 92; RESP 16; TEMP 36.7; O2SAT 100
[2023-07-11] MEDS: buPROPion HCl XL 150 MG TAB.ER.24H PO (09:11)
--- NOTE | 2023-07-11 17:57 | HO.PSYCHPN ---
Subjective Subjective Date of Service: 07/11/23 Reason For Visit: Dysregulated Interim History: Met with patient; discussed with team; reviewed chart Friendly, cooperative. Team said that she did not sleep all that much however she says she has been sleeping fine. Patient more less organized and says she is planning to discharge early next week Mental Status Exam Mental Status Exam Patient Appearance: Well Grooomed and Appropriate Patient Orientation: Person, Place and Situation Level of Consciousness: Awake and Appropriate Patient Behavior: Appropriate and Passive Mood Description: Calm Affect Description: Labile Patient Cognition Impaired: Yes Ability to Follow Directions: Good Speech Pattern: Clear Hallucinations: None Delusions: Not Present Thought Process: Racing Thought Content: positive for Circumstantial Judgement: Fair Diagnostics Vital Signs (24Hr): Vital Signs - 24 hr 07/10/23 18:00 07/11/23 06:00 Temperature 97.2 F 98.1 F Pulse Rate 91 92 Respiratory Rate 16 16 Blood Pressure 133/63 136/66 Pulse Oximetry 99 100 Oxygen Delivery Method Room Air Room Air BMI result Body Mass Index 28.5 Labs 06/30/23 08:05 07/06/23 07:48 Medications Medications Current Medications Acetaminophen (Acetaminophen 325 Mg Tablet) 650 mg PO Q6H PRN PRN Reason: Headache/Pain Mild Scale (1-3) Last Admin: 07/11/23 01:38 Dose: 650 mg Al Hydroxide/Mg Hydroxide (Magnesium Hydrox/Alum Hydrox 30 Ml Oral.Susp) 30 ml PO Q6H PRN PRN Reason: Heartburn/Nausea Bupropion HCl (Bupropion Hcl Xl 150 Mg Tab.Er.24h) 150 mg PO DAILY [facility] Last Admin: 07/11/23 09:11 Dose: 150 mg Cariprazine (Cariprazine Hcl 3 Mg Capsule) 6 mg PO BEDTIME [facility] Last Admin: 07/10/23 21:24 Dose: 6 mg Clonazepam (Clonazepam 1 Mg Tablet) 2 mg PO BEDTIME [facility] Last Admin: 07/10/23 21:25 Dose: 2 mg Donepezil HCl (Donepezil Hcl 10 Mg Tablet) 10 mg PO BEDTIME [facility] Last Admin: 07/10/23 21:26 Dose: 10 mg Lactic Acid (Ammonium Lactate 12 % Lotion 226 Gm Bottle) 1 appl TOPICAL BID PRN; Protocol PRN Reason: dry skin Last Admin: 06/19/23 12:54 Dose: 1 appl Magnesium Hydroxide (Milk Of Magnesia 30 Ml Oral.Susp) 30 ml PO DAILY PRN PRN Reason: Constipation Melatonin (Melatonin 3 Mg Tablet) 9 mg PO BEDTIME [facility] Last Admin: 07/10/23 21:23 Dose: 9 mg Multivitamins/Vitamin C (Multivitamin Tablet) 1 tab PO BEDTIME [facility] Last Admin: 07/10/23 21:26 Dose: 1 tab Trazodone HCl (Trazodone Hcl 50 Mg Tablet) 50 mg PO BEDTIME PRN PRN Reason: Insomnia Valproic Acid (Valproic Acid (As Sodium Salt) 250 Mg/5 Ml Solution) 1,500 mg PO BEDTIME [facility] Last Admin: 07/10/23 21:23 Dose: 1,500 mg Allergies Allergies Allergy/AdvReac Type Severity Reaction Status Date / Time No Known Allergies Allergy Verified 06/10/23 16:06 Assessment & Plan Assessment & Plan (1) Bipolar disorder, most recent episode depressed: Status: Acute Code(s): F31.30 - Bipolar disorder, current episode depressed, mild or moderate severity, unspecified Plan [email or web address] Continuent is a 67-year-old female with history of bipolar disorder II, PTSD, last psychiatric admission February 2023 who presents for worsening depression and face of going off her medications. Patient is somewhat of a poor historian due to significant psychomotor retardation from depression. She says she was stable after being discharged in February but at some point her mood went a little down and for some reason she can not describe, she decided to go off all of her medications. She said soon afterwards she got a deep depression.. And has since had no motivation, would just lay in bed, increased guilty feelings, poor concentration, low energy, low appetite. Denies any SI; denies any AVH. Denies any recent hypomanic episodes. She said she knows she should have stayed on her medications and wish she did. She does not usually let her depression go this long before getting back on them. Patient would like to be restarted on home medications. Patient denies any dysuria, urinary frequency or urgency Hospital course: 06/12 patient reports she has feeling a little better now that she is back on her medications and she is indeed more interactive and with some improved emotional expression. She would like to continue having her home meds titrated back to home dose. Discussed transitioning to Geriatric unit to which she agrees 06/13/23: Continue Rx. 06/14/23: Continue Rx. 06/20: Continue current regimen and plans 06/21: Continue current regimen and plans 06/22: Continue current plans and regimen 07/02 add clonazepam 1mg po qhs-- since pt had not slept in several days. 07/03: slept 6 hours last night. feeling well, looking forward to discharge. continue current mgmt. 07/04: slept 6 hours again last night. feeling well, looking forward to discharge. continue current mgmt. Plan: CV Q 15 minute checks Restart home meds and titrate back to home doses Increase to Bupropion Xl 300 Mg Continue Cariprazine 1.5 mg; titrate to Cariprazine Hcl 3 Mg BEDTIME [facility] Increase to Divalproex Sodium ER 750 mg, then 1000 mg; retitrate to 1500mg (or 1725mg?? need to confirm home dose) Continue Donepezil HCl (Donepezil Hcl 10 Mg Tablet) 10 mg PO BEDTIME [facility] Continue Melatonin (Melatonin 3 Mg Tablet) 3 mg PO BEDTIME [facility] Depakote level for June 17 and adjust Depakote accordingly. We are going to keep Depakote a 1000 mg p.o. q.h.s. since her Depakote level on June 17 was 76.5 we are going to repeat next week. On June 23 her Depakote level was 81.6. On June 27 we are increasing Vraylar to 4.5 mg p.o. q.h.s. to target mood lability. On June 29 we are lowering Wellbutrin XL up to 150 since she is slightly manic. Blood work for 06/30 and it came back in the mid 50s. Depakote has been increased up to 1500 mg p.o. q.h.s. and we will reassess next week. It came back to 66 mg. We are increasing Klonopin to 2 mg p.o. q.h.s.. On July 07 we increase regular up to 6 mg p.o. q.h.s. to target hypomania Reason for continued inpatient stay Substantial Risk for: rapid decompensation Time Spent With Patient Time: Total time managing care of this patient today ____ minutes.
[2023-07-11 18:00] VITALS: BP 134/73; PULSE 74; RESP 20; TEMP 36.6; O2SAT 99
[2023-07-11] MEDS: Cariprazine HCl 3 MG CAPSULE 6 MG PO (21:25)
[2023-07-11] MEDS: clonazePAM 1 MG TABLET 2 MG PO (21:25)
[2023-07-11] MEDS: Multivitamin TABLET 1 TAB PO (21:25)
[2023-07-11] MEDS: Melatonin 3 MG TABLET 9 MG PO (21:26)
[2023-07-11] MEDS: Donepezil HCl 10 MG TABLET PO (21:26)
[2023-07-12] MEDS: Acetaminophen 325 MG TABLET 650 MG PO ×2 (05:13→12:47)
[2023-07-12 07:30] VITALS: BP 146/72; PULSE 79; RESP 18; TEMP 36.3; O2SAT 96
[2023-07-12] MEDS: buPROPion HCl XL 150 MG TAB.ER.24H PO (08:42)
[2023-07-12 19:20] VITALS: BP 121/68; PULSE 92; RESP 18; TEMP 36.2; O2SAT 100
[2023-07-12] MEDS: Melatonin 3 MG TABLET 9 MG PO (22:29)
[2023-07-12] MEDS: Multivitamin TABLET 1 TAB PO (22:29)
[2023-07-12] MEDS: clonazePAM 1 MG TABLET 2 MG PO (22:30)
[2023-07-12] MEDS: Cariprazine HCl 3 MG CAPSULE 6 MG PO (22:30)
[2023-07-12] MEDS: Donepezil HCl 10 MG TABLET PO (22:30)
[2023-07-13 08:18] VITALS: BP 138/65; PULSE 81; RESP 18; TEMP 36.3; O2SAT 100
[2023-07-13] MEDS: buPROPion HCl XL 150 MG TAB.ER.24H PO (09:42)
--- NOTE | 2023-07-13 10:13 | P.PNPSI_ITS ---
Subjective Subjective Date of Service: 07/13/23 Reason For Visit: Dysregulated Subjective Notes: Conditional Voluntary Interim History: Met with patient; discussed in team; reviewed chart. Pt mood stable; ALERT AND STATES SHE IS READY FOR D/C TOMORROW. Medication Compliance: Yes Side effects from medications: No Attending Groups: Yes Review of Systems Acute medical concerns: No Medical Review of Systems: unchanged Review of Systems Review of Systems Constitutional : No Weight loss, No Fever, No Chills, No Night Sweats, No Fatigue, No Malaise ENT/Mouth : No Hearing loss, No Ear Pain, No Nasal Congestion, No Sinus Pain, No Hoarseness, No sore throat, No Rhinorrhea, No Swallowing Difficulty Eyes: No Eye Pain, No Swelling, No Redness, No Foreign Body, No Discharge, No Vision Changes Cardiovascular : No Chest Pain, No SOB, No Dyspnea on Exertion, No Orthopnea, No Edema, No Palpitations Respiratory : No Cough, No Sputum, No Wheezing, No Smoke Exposure, No Dyspnea Gastrointestinal : No Nausea, No Vomiting, No Diarrhea, No Constipation, No abdominal Pain, No Hematochezia, No Melena Genitourinary : no irregular bleeding, No Dysuria, No Urinary Frequency, No Hematuria, No Urinary Incontinence, No Urgency, No Flank Pain, No Urinary Flow Changes, No Hesitancy Musculoskeletal : No joint pain, No Myalgias, No Joint Swelling Skin : No Skin Lesions, No rash Neuro : No Weakness, No Numbness, No Paresthesias, No Loss of Consciousness, No Dizziness, No Headache Psych : Admits to feeling decompensated, no taking psych medications for 3+ months, denies SI or HI Heme/Lymph: No Bruising, No Bleeding,No Lymphadenopathy Endocrine : No Polyuria, No Polydipsia, No Temperature Intolerance Yes all other systems are reviewed and are negative Mental Status Exam Mental Status Exam Narrative: Pt is alert and oriented; behavior is cooperative, calm, little more talkative; patient is not in distress; dressed in casual attire with unkempt, thinning hair, marginal hygiene; mood is described as little better and affect congruent, a little more expressive; eye contact appropriate; Speech is still on quiet side, but normal rate; psychomotor retardation present; thought process goal directed; Thought content is on a little vacuous but otherwise on tx; able to remain relevant topics; no delusional thoughts expressed; denies any SI/HI. There is no evidence of perceptual disturbance and denies AVH. Patients insight and judgment impaired Patient Appearance: Well Grooomed and Appropriate Patient Orientation: Person, Place and Situation Level of Consciousness: Awake and Appropriate Patient Behavior: Appropriate and Passive Mood Description: Calm Affect Description: Labile Patient Cognition Impaired: Yes Ability to Follow Directions: Good Speech Pattern: Clear Memory Description: Remote Impaired and Episodic Impaired Hallucinations: None Thought Process: Goal Oriented Thought Content: positive for Intact and positive for Goal Oriented Judgement: Fair Diagnostics Vital Signs (24Hr): Vital Signs - 24 hr 07/12/23 19:20 07/13/23 08:18 Temperature 97.2 F 97.3 F Pulse Rate 92 81 Respiratory Rate 18 18 Blood Pressure 121/68 138/65 Pulse Oximetry 100 100 Oxygen Delivery Method Room Air Room Air BMI result Body Mass Index 28.5 Labs 06/30/23 08:05 07/06/23 07:48 Medications Medications Current Medications Acetaminophen (Acetaminophen 325 Mg Tablet) 650 mg PO Q6H PRN PRN Reason: Headache/Pain Mild Scale (1-3) Last Admin: 07/12/23 12:47 Dose: 650 mg Al Hydroxide/Mg Hydroxide (Magnesium Hydrox/Alum Hydrox 30 Ml Oral.Susp) 30 ml PO Q6H PRN PRN Reason: Heartburn/Nausea Bupropion HCl (Bupropion Hcl Xl 150 Mg Tab.Er.24h) 150 mg PO DAILY [facility] Last Admin: 07/13/23 09:42 Dose: 150 mg Cariprazine (Cariprazine Hcl 3 Mg Capsule) 6 mg PO BEDTIME [facility] Last Admin: 07/12/23 22:30 Dose: 6 mg Clonazepam (Clonazepam 1 Mg Tablet) 2 mg PO BEDTIME [facility] Last Admin: 07/12/23 22:30 Dose: 2 mg Donepezil HCl (Donepezil Hcl 10 Mg Tablet) 10 mg PO BEDTIME [facility] Last Admin: 07/12/23 22:30 Dose: 10 mg Lactic Acid (Ammonium Lactate 12 % Lotion 226 Gm Bottle) 1 appl TOPICAL BID PRN; Protocol PRN Reason: dry skin Last Admin: 06/19/23 12:54 Dose: 1 appl Magnesium Hydroxide (Milk Of Magnesia 30 Ml Oral.Susp) 30 ml PO DAILY PRN PRN Reason: Constipation Melatonin (Melatonin 3 Mg Tablet) 9 mg PO BEDTIME [facility] Last Admin: 07/12/23 22:29 Dose: 9 mg Multivitamins/Vitamin C (Multivitamin Tablet) 1 tab PO BEDTIME [facility] Last Admin: 07/12/23 22:29 Dose: 1 tab Trazodone HCl (Trazodone Hcl 50 Mg Tablet) 50 mg PO BEDTIME PRN PRN Reason: Insomnia Valproic Acid (Valproic Acid (As Sodium Salt) 250 Mg/5 Ml Solution) 1,500 mg PO BEDTIME [facility] Last Admin: 07/12/23 22:30 Dose: 1,500 mg Allergies Allergies Allergy/AdvReac Type Severity Reaction Status Date / Time No Known Allergies Allergy Verified 06/10/23 16:06 Assessment & Plan Assessment & Plan (1) Bipolar disorder, most recent episode depressed: Status: Acute Code(s): F31.30 - Bipolar disorder, current episode depressed, mild or moderate severity, unspecified Plan [email or web address] Continuent is a 67-year-old female with history of bipolar disorder II, PTSD, last psychiatric admission February 2023 who presents for worsening depression and face of going off her medications. Patient is somewhat of a poor historian due to significant psychomotor retardation from depression. She says she was stable after being discharged in February but at some point her mood went a little down and for some reason she can not describe, she decided to go off all of her medications. She said soon afterwards she got a deep depression.. And has since had no motivation, would just lay in bed, increased guilty feelings, poor concentration, low energy, low appetite. Denies any SI; denies any AVH. Denies any recent hypomanic episodes. She said she knows she should have stayed on her medications and wish she did. She does not usually let her depression go this long before getting back on them. Patient would like to be restarted on home medications. Patient denies any dysuria, urinary frequency or urgency Hospital course: 06/12 patient reports she has feeling a little better now that she is back on her medications and she is indeed more interactive and with some improved emotional expression. She would like to continue having her home meds titrated back to home dose. Discussed transitioning to Geriatric unit to which she agrees 06/13/23: Continue Rx. 06/14/23: Continue Rx. 06/20: Continue current regimen and plans 06/21: Continue current regimen and plans 06/22: Continue current plans and regimen 07/02 add clonazepam 1mg po qhs-- since pt had not slept in several days. 07/03: slept 6 hours last night. feeling well, looking forward to discharge. continue current mgmt. 07/04: slept 6 hours again last night. feeling well, looking forward to discharge. continue current mgmt. Plan: CV Q 15 minute checks Restart home meds and titrate back to home doses Increase to Bupropion Xl 300 Mg Continue Cariprazine 1.5 mg; titrate to Cariprazine Hcl 3 Mg BEDTIME [facility] Increase to Divalproex Sodium ER 750 mg, then 1000 mg; retitrate to 1500mg (or 1725mg?? need to confirm home dose) Continue Donepezil HCl (Donepezil Hcl 10 Mg Tablet) 10 mg PO BEDTIME [facility] Continue Melatonin (Melatonin 3 Mg Tablet) 3 mg PO BEDTIME [facility] Depakote level for June 17 and adjust Depakote accordingly. We are going to keep Depakote a 1000 mg p.o. q.h.s. since her Depakote level on June 17 was 76.5 we are going to repeat next week. On June 23 her Depakote level was 81.6. On June 27 we are increasing Vraylar to 4.5 mg p.o. q.h.s. to target mood lability. On June 29 we are lowering Wellbutrin XL up to 150 since she is slightly manic. Blood work for 06/30 and it came back in the mid 50s. Depakote has been increased up to 1500 mg p.o. q.h.s. and we will reassess next week. It came back to 66 mg. We are increasing Klonopin to 2 mg p.o. q.h.s.. On July 07 we increase regular up to 6 mg p.o. q.h.s. to target hypomania Reason for continued inpatient stay Substantial Risk for: inability to function and rapid decompensation Time Spent With Patient Time: Total time managing care of this patient today ____ minutes.
--- NOTE | 2023-07-13 17:20 | HO.PSYCHPN ---
Subjective Subjective Date of Service: 07/13/23 Reason For Visit: Dysregulated Interim History: Late entry note for patient seen on 07/11 Met with patient; discussed with team Patient again reports that she is doing well, looking forward to going; no complaints and no requests Mental Status Exam Mental Status Exam Patient Appearance: Well Grooomed and Appropriate Patient Orientation: Person, Place and Situation Level of Consciousness: Awake and Appropriate Patient Behavior: Appropriate and Passive Mood Description: Calm Affect Description: Labile Patient Cognition Impaired: Yes Ability to Follow Directions: Good Speech Pattern: Clear Hallucinations: None Delusions: Not Present Thought Process: Racing Thought Content: positive for Circumstantial Judgement: Fair Diagnostics Vital Signs (24Hr): Vital Signs - 24 hr 07/12/23 19:20 07/13/23 08:18 Temperature 97.2 F 97.3 F Pulse Rate 92 81 Respiratory Rate 18 18 Blood Pressure 121/68 138/65 Pulse Oximetry 100 100 Oxygen Delivery Method Room Air Room Air BMI result Body Mass Index 28.5 Labs 06/30/23 08:05 07/06/23 07:48 Medications Medications Current Medications Acetaminophen (Acetaminophen 325 Mg Tablet) 650 mg PO Q6H PRN PRN Reason: Headache/Pain Mild Scale (1-3) Last Admin: 07/12/23 12:47 Dose: 650 mg Al Hydroxide/Mg Hydroxide (Magnesium Hydrox/Alum Hydrox 30 Ml Oral.Susp) 30 ml PO Q6H PRN PRN Reason: Heartburn/Nausea Bupropion HCl (Bupropion Hcl Xl 150 Mg Tab.Er.24h) 150 mg PO DAILY CARLOS Last Admin: 07/13/23 09:42 Dose: 150 mg Cariprazine (Cariprazine Hcl 3 Mg Capsule) 6 mg PO BEDTIME CARLOS Last Admin: 07/12/23 22:30 Dose: 6 mg Clonazepam (Clonazepam 1 Mg Tablet) 2 mg PO BEDTIME CARLOS Last Admin: 07/12/23 22:30 Dose: 2 mg Donepezil HCl (Donepezil Hcl 10 Mg Tablet) 10 mg PO BEDTIME CARLOS Last Admin: 07/12/23 22:30 Dose: 10 mg Lactic Acid (Ammonium Lactate 12 % Lotion 226 Gm Bottle) 1 appl TOPICAL BID PRN; Protocol PRN Reason: dry skin Last Admin: 06/19/23 12:54 Dose: 1 appl Magnesium Hydroxide (Milk Of Magnesia 30 Ml Oral.Susp) 30 ml PO DAILY PRN PRN Reason: Constipation Melatonin (Melatonin 3 Mg Tablet) 9 mg PO BEDTIME [facility] Last Admin: 07/12/23 22:29 Dose: 9 mg Multivitamins/Vitamin C (Multivitamin Tablet) 1 tab PO BEDTIME [facility] Last Admin: 07/12/23 22:29 Dose: 1 tab Trazodone HCl (Trazodone Hcl 50 Mg Tablet) 50 mg PO BEDTIME PRN PRN Reason: Insomnia Valproic Acid (Valproic Acid (As Sodium Salt) 250 Mg/5 Ml Solution) 1,500 mg PO BEDTIME [facility] Last Admin: 07/12/23 22:30 Dose: 1,500 mg Allergies Allergies Allergy/AdvReac Type Severity Reaction Status Date / Time No Known Allergies Allergy Verified 06/10/23 16:06 Assessment & Plan Assessment & Plan (1) Bipolar disorder, most recent episode depressed: Status: Acute Code(s): F31.30 - Bipolar disorder, current episode depressed, mild or moderate severity, unspecified Plan [email or web address] Continuent is a 67-year-old female with history of bipolar disorder II, PTSD, last psychiatric admission February 2023 who presents for worsening depression and face of going off her medications. Patient is somewhat of a poor historian due to significant psychomotor retardation from depression. She says she was stable after being discharged in February but at some point her mood went a little down and for some reason she can not describe, she decided to go off all of her medications. She said soon afterwards she got a deep depression.. And has since had no motivation, would just lay in bed, increased guilty feelings, poor concentration, low energy, low appetite. Denies any SI; denies any AVH. Denies any recent hypomanic episodes. She said she knows she should have stayed on her medications and wish she did. She does not usually let her depression go this long before getting back on them. Patient would like to be restarted on home medications. Patient denies any dysuria, urinary frequency or urgency Hospital course: 06/12 patient reports she has feeling a little better now that she is back on her medications and she is indeed more interactive and with some improved emotional expression. She would like to continue having her home meds titrated back to home dose. Discussed transitioning to Geriatric unit to which she agrees 06/13/23: Continue Rx. 06/14/23: Continue Rx. 06/20: Continue current regimen and plans 06/21: Continue current regimen and plans 06/22: Continue current plans and regimen 07/02 add clonazepam 1mg po qhs-- since pt had not slept in several days. 07/03: slept 6 hours last night. feeling well, looking forward to discharge. continue current mgmt. 07/04: slept 6 hours again last night. feeling well, looking forward to discharge. continue current mgmt. Plan: CV Q 15 minute checks Restart home meds and titrate back to home doses Increase to Bupropion Xl 300 Mg Continue Cariprazine 1.5 mg; titrate to Cariprazine Hcl 3 Mg BEDTIME CARLOS Increase to Divalproex Sodium ER 750 mg, then 1000 mg; retitrate to 1500mg (or 1725mg?? need to confirm home dose) Continue Donepezil HCl (Donepezil Hcl 10 Mg Tablet) 10 mg PO BEDTIME CARLOS Continue Melatonin (Melatonin 3 Mg Tablet) 3 mg PO BEDTIME CARLOS Depakote level for June 17 and adjust Depakote accordingly. We are going to keep Depakote a 1000 mg p.o. q.h.s. since her Depakote level on June 17 was 76.5 we are going to repeat next week. On June 23 her Depakote level was 81.6. On June 27 we are increasing Vraylar to 4.5 mg p.o. q.h.s. to target mood lability. On June 29 we are lowering Wellbutrin XL up to 150 since she is slightly manic. Blood work for 06/30 and it came back in the mid 50s. Depakote has been increased up to 1500 mg p.o. q.h.s. and we will reassess next week. It came back to 66 mg. We are increasing Klonopin to 2 mg p.o. q.h.s.. On July 07 we increase regular up to 6 mg p.o. q.h.s. to target hypomania Reason for continued inpatient stay Substantial Risk for: med/psych decompensation Time Spent With Patient Time: Total time managing care of this patient today ____ minutes.
[2023-07-13 20:00] VITALS: BP 130/60; PULSE 93; RESP 18; TEMP 36.1; O2SAT 99
[2023-07-13] MEDS: Melatonin 3 MG TABLET 9 MG PO (21:20)
[2023-07-13] MEDS: Multivitamin TABLET 1 TAB PO (21:20)
[2023-07-13] MEDS: Donepezil HCl 10 MG TABLET PO (21:21)
[2023-07-13] MEDS: clonazePAM 1 MG TABLET 2 MG PO (21:22)
[2023-07-13] MEDS: Cariprazine HCl 3 MG CAPSULE 6 MG PO (21:22)
[2023-07-14] MEDS: buPROPion HCl XL 150 MG TAB.ER.24H PO (08:02)
[2023-07-14 09:02] VITALS: BP 129/69; PULSE 93; RESP 16; TEMP 36; O2SAT 95
[2023-07-14] MEDS: Acetaminophen 325 MG TABLET 650 MG PO (09:41)
--- NOTE | 2023-07-14 10:09 | PM.PSYDC ---
DS: Providers Provider Date of Service: 07/14/23 Date of admission: 06/10/23 20:46 Date of discharge: 07/14/23 Primary care physician: Mikey Carrero MD Admitting clinician: Wily Flores Attending physician on admission: Wily Flores Attending physician on discharge: Merced Chen Discharging clinician: Merced Chen DS: Diagnosis Discharge Diagnosis (1) Bipolar disorder, most recent episode depressed: Start date: 06/10/23 Start time: 20:46 Status: Acute DS: Medications Discharge Medications Home Medications: Previous Rx's Medication Instructions Recorded ammonium lactate 12 % lotion 1 appl topical BID PRN dry skin 30 07/14/23 days #1 g bupropion HCl 150 mg 24 hr tablet, 150 mg PO DAILY #30 tabs 07/14/23 extended release cariprazine 3 mg capsule (Vraylar) 6 mg (2 x 3 mg) PO BEDTIME 30 days 07/14/23 #60 caps clonazepam 1 mg tablet 2 mg (2 x 1 mg) PO BEDTIME #30 tabs 07/14/23 donepezil 10 mg tablet 10 mg PO BEDTIME #30 tabs 07/14/23 melatonin 3 mg tablet 9 mg (3 x 3 mg) PO BEDTIME #90 tabs 07/14/23 multivitamin (Daily-Vishnu tablet) 1 tab PO BEDTIME #30 tabs 07/14/23 trazodone 50 mg tablet 50 mg PO BEDTIME PRN Insomnia #30 07/14/23 tabs valproic acid (as sodium salt) 250 1,500 mg (30 mL) PO BEDTIME 30 07/14/23 mg/5 mL (5 mL) oral solution days #900 mL Mental Status Exam Mental Status Exam Narrative: Pt is alert and oriented; behavior is cooperative, calm, little more talkative; patient is not in distress; dressed in casual attire with unkempt, thinning hair, marginal hygiene; mood is described as little better and affect congruent, a little more expressive; eye contact appropriate; Speech is still on quiet side, but normal rate; psychomotor retardation present; thought process goal directed; Thought content is on a little vacuous but otherwise on tx; able to remain relevant topics; no delusional thoughts expressed; denies any SI/HI. There is no evidence of perceptual disturbance and denies AVH. Patients insight and judgment impaired Patient Appearance: Well Grooomed and Appropriate Patient Orientation: Person, Place and Situation Level of Consciousness: Awake and Appropriate Patient Behavior: Appropriate and Passive Mood Description: Calm Affect Description: Labile Patient Cognition Impaired: Yes Ability to Follow Directions: Good Speech Pattern: Clear Memory Description: Remote Impaired and Episodic Impaired Thought Process: Intact Thought Content: positive for Intact Judgement: Fair Data Data Completed and Pending Completed studies during hospitalization [Text1]: 06/10/23 17:11 Urine clean catch Urine Culture - Final DS: Summary Hospital Course Hospital Course: 67-year-old female with history of bipolar disorder II, PTSD, who presents for worsening depression in context going off her medications. Patient presented with significant psychomotor retardation from depression upon admission. Patient restarted on home medications and vraylar increased to 6mg with good effect. Pt has increased insight re need to stay on medication. Mood significantly improved at discharge; smiling, expressing hope for future and improved self care. Time spent discussing smoking cessation with patient: 3 to 10 minutes Status at Discharge Cognitive/behavioral status at discharge: alert and oriented, mood stable, smiles easily. no depression or elation. good insight and judgment. no SI or HI. no psychosis. Functional status at discharge: independent ambulation Overall status at discharge: patient is back to baseline Time Spent with Patient Time attestation: Total time managing care of this patient today ____ minutes. Time spent: Less than 30 minutes Discharge Plan Discharge Anticipated Discharge Date/Time: 07/14/23 09:47 Patient Disposition: Home, Self-Care Discharge Diagnosis: Bipolar Disorder Referrals: Ahsan Carrero MD [Physician] - 07/20/23 2:00 pm Landy Bess MD [Physician] - 07/15/23 5:00 pm (Per doctor's office, Patient must keep this appointment and if no show, she will be discharged; due to past history of no shows. ) Discharge Medications: New multivitamin [Daily-Vishnu] Tablet 1 tab PO BEDTIME Qty: 30 0RF ammonium lactate 12 % Lotion 1 appl topical BID PRN (Reason: dry skin) 30 Days Qty: 1 0RF Protocol: Apply to: Apply to: affected area trazodone 50 mg Tablet 50 mg PO BEDTIME PRN (Reason: Insomnia) Qty: 30 0RF donepezil 10 mg Tablet 10 mg PO BEDTIME Qty: 30 0RF clonazepam 1 mg Tablet 2 mg PO BEDTIME Qty: 30 0RF melatonin 3 mg Tablet 9 mg PO BEDTIME Qty: 90 0RF bupropion HCl 150 mg Tablet Extended Release 24 Hr 150 mg PO DAILY Qty: 30 0RF valproic acid (as sodium salt) 250 mg/5 mL (5 mL) Solution 1,500 mg PO BEDTIME 30 Days Qty: 900 0RF Vraylar 3 mg Capsule 6 mg PO BEDTIME 30 Days Qty: 60 0RF Discontinued donepezil 10 mg Tablet 10 mg PO BEDTIME 30 Days Qty: 30 0RF Vraylar 4.5 mg capsule 4.5 mg PO BEDTIME Qty: 30 0RF ammonium lactate 12 % Lotion 1 appl topical BID 30 Days Qty: 50 0RF Protocol: Apply to: Apply to: feet B/L melatonin 3 mg Tablet 3 mg PO BEDTIME 30 Days Qty: 30 0RF bupropion HCl 300 mg Tablet Extended Release 24 Hr 300 mg PO DAILY 30 Days Qty: 30 1RF divalproex 250 mg tablet extended release 24 hr 1,750 mg PO BEDTIME Discharge Orders: Discharge Order (Routine); Ordered 07/14/23 Ordered By: Merced Chen Diet: Advance to usual diet Activity on Discharge: As tolerated Stand Alone Forms: Patient Portal Discharge page, Community Support Care Plan Goals: continue medications as prescribed follow up with outpatient providers Health Concerns: Bipolar Disorder Plan of Treatment: take medications as prescribed daily Assessment: alert and oriented; mood stable; no SI or Hi. no pressured speech, no impulsivity. judgment good. Discharge Date/Time: 07/14/23 10:25
== END 2023-07-14 10:25 | disposition home or self-care (01) | DRG 885 ==
LOC: HO.ED 19:16 → HO.PM5 21:09 → HO.PGERI 06-12 12:56
PROVIDERS: Physician Assistant Medical; Psychiatry & Neurology Psychiatry; Admitting Provider Psychiatry & Neurology Psychiatry; Emergency Provider Emergency Medicine; PCP Internal Medicine; Visit Provider Psychiatry & Neurology Psychiatry
DX: F31.30 Bipolar disorder, current episode depressed, mild or moderate severity, unspecified (principal); Z20.822 Contact with and (suspected) exposure to COVID-19; Z91.148 Patient's other noncompliance with medication regimen for other reason; Z87.891 Personal history of nicotine dependence; Z79.899 Other long term (current) drug therapy
CPT/HCPCS: 36415; 80048; 80053; 80076; 80164; 80307; 81001; 81003; 83036; 83690; 83735; 85025; 87086; 87635; 93005; 99285; S9485

== ENCOUNTER → 2023-06-10 16:42 | Outpatient (BNV) | payer MEDICARE, SELFPAY | PROVIDERS: Admitting Provider Psychiatry & Neurology Psychiatry; Emergency Provider Emergency Medicine; PCP Internal Medicine; Visit Provider Internal Medicine | DX: R94.31 Abnormal electrocardiogram [ECG] [EKG] (principal) | CPT/HCPCS: 93010 ==

== ENCOUNTER → 2023-06-10 20:46 | Outpatient (BNV) | payer MEDICARE, SELFPAY | PROVIDERS: Admitting Provider Psychiatry & Neurology Psychiatry; Emergency Provider Emergency Medicine; PCP Internal Medicine; Visit Provider Psychiatry & Neurology Psychiatry | DX: F31.30 Bipolar disorder, current episode depressed, mild or moderate severity, unspecified (principal) | CPT/HCPCS: 90792; 99231; 99232; 99238 ==

== ENCOUNTER 2023-09-16 19:55 | Inpatient (IN) | payer MEDICARE, SELFPAY ==
[2023-09-16 20:07] VITALS: BP 126/75; PULSE 85; RESP 16; TEMP 36.6; O2SAT 96; BMI 25.1
--- NOTE | 2023-09-16 20:07 | ED.GENADULT ---
HPI - General Adult General Chief complaint: Psychiatric Symptoms Stated complaint: sleep deprived, 'out of it' Time Seen by Provider: 09/16/23 21:02 Source: patient Mode of arrival: ambulatory Limitations: no limitations History of Present Illness HPI narrative: Patient comes to the emergency room complaining of feeling a bit depressed, having lack of motivation, no sleeping well. Patient states that approximately a month ago, she stopped taking all of her medications together. Patient states that she used to take Depakote, patient states that it was making her feel lightheaded . Patient has stopped taking all of her medications, states that she was on way too many. Patient states that her family brought her to the emergency room, they were concerned that the patient was deteriorating. Patient states that she does feel more depressed than usual, denies SI. Patient states that she does feel different with the her medications. Patient is willing to restart meds but states that she does not want to be on too many at the same time Related Data Previous Rx's ?Medication ?Instructions ?Recorded ammonium lactate 12 % lotion 1 appl topical BID PRN dry skin 30 07/14/23 days #1 g bupropion HCl 150 mg 24 hr tablet, 150 mg PO DAILY #30 tabs 07/14/23 extended release cariprazine 3 mg capsule (Vraylar) 6 mg (2 x 3 mg) PO BEDTIME 30 days 07/14/23 #60 caps clonazepam 1 mg tablet 2 mg (2 x 1 mg) PO BEDTIME #30 tabs 07/14/23 donepezil 10 mg tablet 10 mg PO BEDTIME #30 tabs 07/14/23 melatonin 3 mg tablet 9 mg (3 x 3 mg) PO BEDTIME #90 tabs 07/14/23 multivitamin (Daily-Vishnu tablet) 1 tab PO BEDTIME #30 tabs 07/14/23 trazodone 50 mg tablet 50 mg PO BEDTIME PRN Insomnia #30 07/14/23 tabs valproic acid (as sodium salt) 250 1,500 mg (30 mL) PO BEDTIME 30 07/14/23 mg/5 mL (5 mL) oral solution days #900 mL Allergies Allergy/AdvReac Type Severity Reaction Status Date / Time No Known Allergies Allergy Verified 09/16/23 20:07 Review of Systems Review of Systems: Constitutional : No Weight loss, No Fever, No Chills, No Night Sweats, No Fatigue, No Malaise ENT/Mouth : No Hearing loss, No Ear Pain, No Nasal Congestion, No Sinus Pain, No Hoarseness, No sore throat, No Rhinorrhea, No Swallowing Difficulty Eyes: No Eye Pain, No Swelling, No Redness, No Foreign Body, No Discharge, No Vision Changes Cardiovascular : No Chest Pain, No SOB, No Dyspnea on Exertion, No Orthopnea, No Edema, No Palpitations Respiratory : No Cough, No Sputum, No Wheezing, No Smoke Exposure, No Dyspnea Gastrointestinal : No Nausea, No Vomiting, No Diarrhea, No Constipation, No abdominal Pain, No Hematochezia, No Melena Genitourinary : no irregular bleeding, No Dysuria, No Urinary Frequency, No Hematuria, No Urinary Incontinence, No Urgency, No Flank Pain, No Urinary Flow Changes, No Hesitancy Musculoskeletal : No joint pain, No Myalgias, No Joint Swelling Skin : No Skin Lesions, No rash Neuro : No Weakness, No Numbness, No Paresthesias, No Loss of Consciousness, No Dizziness, No Headache Psych : Complaining of feeling a bit more depressed, not sleeping well, no taking showers and not take care of herself Heme/Lymph: No Bruising, No Bleeding,No Lymphadenopathy Endocrine : No Polyuria, No Polydipsia, No Temperature Intolerance PMFSH Past Medical History Medical History RADHA (acute kidney injury) Fracture of right ulnar styloid Neurodegenerative cognitive impairment Bipolar disorder, most recent episode depressed Left ankle sprain Low back pain Acute bronchitis Left sided sciatica Depression Sore throat (viral) Surgical History Hx of colonoscopy No significant past surgical history Social History Social History Household Members: Spouse and Children Household Members Other:: , son Housing: House Do you presently have visiting nurse or other home services: No Alcohol intake: former Comment: Independent Patient Tobacco Use Status: Former Tobacco user e-Cigarette/Vaping Use: Never Used Advance Directives: No Advance Directives Information Provided: No service: No Sexual orientation: Straight/Heterosexual Physical Exam ED Vital Signs: Vital Signs - 24 hr 09/16/23 20:07 Temperature 97.9 F Pulse Rate 85 Respiratory Rate 16 Blood Pressure 126/75 Pulse Oximetry 96 Oxygen Delivery Method Room Air BMI result Body Mass Index 25.1 Const Other: Appearance: Alert. Oriented X3. No acute distress. Eyes: Pupils equal, round and reactive to light. ENT: Pharynx normal. Neck: Normal inspection. Neck supple. No lymph nodes noted. No crepitus CVS: Normal heart rate and rhythm. Pulses normal. Normal S1 and S2 Respiratory: No respiratory distress. Breath sounds normal. No Wheezing. No rales Abdomen: Soft and nontender. No rigidity. No distention. Skin: Skin warm and dry. Normal skin color. Normal skin turgor. Extremities: No lower extremity edema. No Lacerations. No Rash Neuro: Oriented X 3. No motor deficit. No sensory deficit. Moving all extremities. No slurred speech. CN 2 through 12 grossly intact Psych: calm, cooperative, normal affect Course Course Course Narrative: This is a rapid medical exam performed by Anita Poe NP: Additional HPI, ROS, PE not included below will be deferred to primary provider. Patient is a 67-year-old female with history of bipolar 2 disorder, neurogenerative cognitive impairment, PTSD presenting to the ED with insomnia, difficulty sleeping and confusion. She states that she feels she needs medication adjustments, feels she is being overdosed on depakote. She was admitted here for over a month in Jun/July after going off her medications. Family reports she has been off her medications again. Niece states that when patient was discharged last time she was extremely drowsy, had multiple falls. Outpatient psychiatrist took her off her depakote and one other medication. Patient complains of depression, no motivation and difficulty sleeping, not performing ADLs. She denies suicial or homicidal ideation. Plan: med clearance, then CARE team eval Medical Decision Making Medical Decision Making MDM Narrative: -my interpretation of labs: No obvious abnormality in the hematology and chemistry, LFTs normal, U tox negative, EtOH negative. -urinalysis pending -patient waiting to be seen by the care team -physician observation started at 22:03 Differential Diagnosis Differential Diagnoses: The differential diagnosis associated with the presentation includes (Anxiety, depression, bipolar disorder) Admission/Observation Consideration of admission/observation: Escalation of care including admission/observation considered (Patient went to be seen by the care team to determine patient's disposition) Lab Data MDM Lab Attestation statement: I reviewed the patient's lab results. 09/16/23 20:58 09/16/23 20:58 Labs: Lab Results 09/16/23 09/16/23 Range/Units 20:33 20:58 WBC 7.9 (4.8-10.8) X10*3/uL RBC 5.06 (4.20-5.50) X10*6/uL Hgb 14.5 (12.0-16.0) g/dl Hct 44.6 (37.0-47.0) % MCV 88.1 (80.0-98.0) fL MCH 28.7 (27.0-33.0) pg MCHC 32.5 (31.0-35.0) g/dl RDW 13.7 (11.0-16.0) % Plt Count 346 (160-400) X10*3/uL MPV 9.2 L (9.4-12.3) fL Immature Gran % (Auto) 0.4 (0.0-0.4) % Neut % (Auto) 62.9 (45-73) % Lymph % (Auto) 29.5 (20-40) % [place] % (Auto) 6.2 (2-11) % Eos % (Auto) 0.6 (0-4) % Baso % (Auto) 0.4 (0-2) % Lymph # (Auto) 2.3 (1.2-4.9) X10*3/uL [place] # (Auto) 0.5 (0.1-1.2) X10*3/uL Eos # (Auto) 0.1 (0.0-0.4) X10*3/uL Baso # (Auto) 0.0 (0.0-0.2) X10*3/uL Abs Immat Gran (auto) 0.03 (0.00-0.03) X10*3/uL Absolute Neuts (auto) 5.0 (2.0-8.3) x10*3/uL Absolute Nucleated RBC 0.000 (0.0-0.012) X10*3/uL Nucleated RBC % (auto) 0.0 (0.0-0.2) /100WBC Sodium 142 (135-145) mmol/L Potassium 4.1 (3.3-5.1) mmol/L Chloride 108 (96-108) mmol/L Carbon Dioxide 25 (22-29) mmol/L Anion Gap 13 (12-20) BUN 12 (9-16) mg/dL Creatinine 1.36 (0.5-1.4) mg/dL Estim Creat Clear Calc 35.2 Estimated GFR 39 Random Glucose 137 H (60-115) mg/dL Calcium 9.1 (8.4-10.2) mg/dL Total Bilirubin 0.5 (0.0-1.0) mg/dL AST 18 (5-31) U/L ALT 11 (0-31) U/L Alkaline Phosphatase 79 (39-117) U/L Total Protein 7.0 (6.5-8.0) g/dL Albumin 4.0 (3.5-5.0) g/dL Urine Color Dark Yellow Urine Appearance Turbid Urine pH 5.5 (5.0-9.0) Ur Specific [place] >= 1.030 H (1.005-1.025) Urine Protein Trace (Neg-Trace) mg/dL Urine Glucose (UA) Negative (Negative) mg/dL Urine Ketones 15 (Negative) mg/dL Urine Blood Negative (Negative) Urine Nitrite Negative (Negative) Ur Leukocyte Esterase Moderate (2+) H (Negative) Urine Opiates Screen Not Detected (Not Detect) Ur Buprenorphine Scrn Not Detected (Not Detect) ng/mL Ur Oxycodone Screen Not Detected (Not Detect) ng/mL Urine Methadone Screen Not Detected (Not Detect) ng/mL Urine Fentanyl Screen Not Detected (Not Detect) Ur Barbiturates Screen Not Detected (Not Detect) Ur Phencyclidine Scrn Not Detected (Not Detect) Ur Amphetamines Screen Not Detected (Not Detect) U Benzodiazepines Scrn Not Detected (Not Detect) Urine Cocaine Screen Not Detected (Not Detect) U Marijuana (THC) Screen Not Detected (Not Detect) Ethyl Alcohol < 10 mg/dL COVID-19 ([facility]) Negative (Negative) COVID-19 Clin Com See Note Discharge Plan Discharge Clinical Impression: Bipolar depression Patient Disposition: Still a Patient Prescriptions: No Action multivitamin [Daily-Vishnu] Tablet 1 tab PO BEDTIME Qty: 30 0RF ammonium lactate 12 % Lotion 1 appl topical BID PRN (Reason: dry skin) 30 Days Qty: 1 0RF Protocol: Apply to: Apply to: affected area trazodone 50 mg Tablet 50 mg PO BEDTIME PRN (Reason: Insomnia) Qty: 30 0RF donepezil 10 mg Tablet 10 mg PO BEDTIME Qty: 30 0RF clonazepam 1 mg Tablet 2 mg PO BEDTIME Qty: 30 0RF melatonin 3 mg Tablet 9 mg PO BEDTIME Qty: 90 0RF bupropion HCl 150 mg Tablet Extended Release 24 Hr 150 mg PO DAILY Qty: 30 0RF valproic acid (as sodium salt) 250 mg/5 mL (5 mL) Solution 1,500 mg PO BEDTIME 30 Days Qty: 900 0RF Vraylar 3 mg Capsule 6 mg PO BEDTIME 30 Days Qty: 60 0RF Print Language: [place]
--- NOTE | 2023-09-16 20:15 | PC.NURSE ---
LIYAH PURCELL [phone] COUSIN
[2023-09-16 21:01] LABS: Appearance Urine Turbid; Color Urine Dark Yellow; Glucose Urine UA Negative (Negative); Leukocyte Esterase Urine Moderate (2+) (Negative); Nitrite Urine Negative (Negative); PH 5.5 (5.0-9.0); Specific Gravity - Urine >= 1.030 (1.005-1.025); UMIC TRIGGER UACC YES; Urine Blood Negative (Negative); Urine Ketones 15 mg/dL (Negative); Urine Protein Trace mg/dL (Neg-Trace)
[2023-09-16 21:08] LABS: MANUAL DIFF FLAG NO
[2023-09-16 21:12] LABS: Amphetamine Screen Urine Not Detected (Not Detect); Barbiturates, Urine Not Detected (Not Detect); Benzodiazepines Screen Urine Not Detected (Not Detect); Buprenorphine Scr Not Detected (Not Detect); COVID-19 Test Negative (Negative); Cannabinoid Screen Urine Not Detected (Not Detect); Cocaine Screen Urine Not Detected (Not Detect); Fentanyl, urine Not Detected (Not Detect); IDNOW Serial# 08D9AD1C; Methadone Screen, Urine Not Detected (Not Detect); Opiate Screen Urine Not Detected (Not Detect); Oxycodone Screen Urine Not Detected (Not Detect); Phencyclidine Screen Urine Not Detected (Not Detect)
[2023-09-16 21:17] LABS: Basophils Percent Auto 0.4 % (0-2); Eosinophils Absolute Auto 0.1 X10*3/uL (0.0-0.4); Eosinophils Percent Auto 0.6 % (0-4); Hematocrit 44.6 % (37.0-47.0); Hemoglobin 14.5 g/dl (12.0-16.0); Imm Gran Abs Auto 0.03 X10*3/uL (0.00-0.03); Imm Gran Pct Auto 0.4 % (0.0-0.4); Lymphocytes Absolute Auto 2.3 X10*3/uL (1.2-4.9); Lymphocytes Percent Auto 29.5 % (20-40); Mean Corpuscular HGB Conc 32.5 g/dl (31.0-35.0); Mean Corpuscular Hemoglobin 28.7 pg (27.0-33.0); Mean Corpuscular Volume 88.1 fL (80.0-98.0); Mean Platelet Volume 9.2 fL (9.4-12.3); Monocytes Absolute Auto 0.5 X10*3/uL (0.1-1.2); Monocytes Percent Auto 6.2 % (2-11); Neutrophils Percent Auto 62.9 % (45-73); Platelet Count 346 X10*3/uL (160-400); Red Blood Count 5.06 X10*6/uL (4.20-5.50); Red Cell Distribution Width 13.7 % (11.0-16.0); White Blood Count 7.9 X10*3/uL (4.8-10.8)
[2023-09-16 21:27] LABS: Alanine Aminotransferase 11 U/L (0-31); Alkaline Phosphatase 79 U/L (39-117); Anion Gap 13 (12-20); Aspartate Amino Transferase 18 U/L (5-31); Bilirubin Total 0.5 mg/dL (0.0-1.0); Blood Urea Nitrogen 12 mg/dL (9-16); Calcium 9.1 mg/dL (8.4-10.2); Carbon Dioxide 25 mmol/L (22-29); Chloride 108 mmol/L (96-108); Creatinine Clr Calc Pharmacy 35.2; Estimated Glomerular Filt Rate 39; Ethanol < 10 mg/dL; Glucose Random 137 mg/dL (60-115); Potassium 4.1 mmol/L (3.3-5.1); Sodium 142 mmol/L (135-145)
[2023-09-16 22:16] LABS: Bacteria Urine 4+ (None Seen); RBC Urine 0-2 /HPF (0-2); UACC Culture Trigger YES; WBC Urine >50 /HPF (0-5)
[2023-09-17] MEDS: Melatonin 3 MG TABLET 9 MG PO ×2 (01:45→21:33)
[2023-09-17 05:34] VITALS: BP 124/74; PULSE 70; RESP 18; TEMP 37.2; O2SAT 97
--- NOTE | 2023-09-17 08:02 | PC.NURSE ---
ambulates with steady gait to the bathroom this morning to take a shower. reports feeling much better after the shower as it has been some time since she has taken one. now resting quietly in her room with no obvious signs/symptoms of distress at this time
--- NOTE | 2023-09-17 08:49 | PC.NURSE ---
met with care team, awaiting dispo
--- NOTE | 2023-09-17 09:20 | ECG_ITS ---
Test Reason : QT INTERVAL Blood Pressure : / mmHG Vent. Rate : 064 BPM Atrial Rate : 064 BPM P-R Int : 180 ms QRS Dur : 098 ms QT Int : 412 ms P-R-T Axes : 054 000 022 degrees QTc Int : 425 ms Normal sinus rhythm Possible Left atrial enlargement Incomplete right bundle branch block Borderline ECG When compared with ECG of 10-JUN-2023 17:17, No significant change was found Referred By: Naomi Daniels Electronically Signed By:ALCON GONZALES MD
[2023-09-17] MEDS: buPROPion HCl XL 150 MG TAB.ER.24H PO (09:24)
--- NOTE | 2023-09-17 10:33 | MHC.CARE ---
Report filed with Elder services
[2023-09-17 13:19] VITALS: BMI 24.9
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
[2023-09-17 19:28] VITALS: BP 108/65; PULSE 74; RESP 16; TEMP 36.7; O2SAT 97
[2023-09-17] MEDS: Cariprazine HCl 3 MG CAPSULE PO (21:32)
[2023-09-17] MEDS: Cariprazine HCl 1.5 MG CAPSULE PO (21:32)
[2023-09-17] MEDS: Donepezil HCl 10 MG TABLET PO (21:33)
[2023-09-17] MEDS: carBAMazepine ER 100 MG TAB.ER.12H PO (21:33)
[2023-09-17] MEDS: Multivitamin TABLET 1 TAB PO (21:33)
[2023-09-17] MEDS: Acetaminophen 325 MG TABLET 650 MG PO (21:43)
[2023-09-18 07:39] VITALS: BP 124/65; PULSE 69; RESP 14; TEMP 36.9; O2SAT 98
[2023-09-18] MEDS: buPROPion HCl XL 150 MG TAB.ER.24H PO (08:37)
[2023-09-18] MEDS: carBAMazepine ER 100 MG TAB.ER.12H PO ×2 (08:37→20:53)
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
[2023-09-18 20:00] VITALS: BP 120/61; PULSE 71; RESP 16; TEMP 37; O2SAT 98
[2023-09-18] MEDS: Melatonin 3 MG TABLET 9 MG PO (20:52)
[2023-09-18] MEDS: Cariprazine HCl 3 MG CAPSULE PO (20:53)
[2023-09-18] MEDS: Multivitamin TABLET 1 TAB PO (20:53)
[2023-09-18] MEDS: Cariprazine HCl 1.5 MG CAPSULE PO (20:53)
[2023-09-18] MEDS: Mirtazapine 15 MG TABLET PO (20:54)
[2023-09-18] MEDS: Donepezil HCl 10 MG TABLET PO (20:54)
[2023-09-18] MEDS: Acetaminophen 325 MG TABLET 650 MG PO (21:03)
--- NOTE | 2023-09-18 21:04 | PC.NURSE ---
Marjorie given Tylenol PO prn for mild back pain 07/11
[2023-09-19 07:45] VITALS: BP 163/71; PULSE 74; RESP 16; TEMP 36.7; O2SAT 100
[2023-09-19] MEDS: carBAMazepine ER 100 MG TAB.ER.12H PO ×2 (08:40→22:32)
[2023-09-19] MEDS: buPROPion HCl XL 150 MG TAB.ER.24H PO (08:40)
--- NOTE | 2023-09-19 12:10 | HO.PSYCHPN ---
Subjective Subjective Date of Service: 09/19/23 Reason For Visit: mental health decompensation Subjective Notes: Conditional Voluntary Interim History: Patient was seen and discussed in rounds today. Records and plans were reviewed. She has been doing better. Still having anxiety and depression. Attending all groups. No SI/AVH. Eating and sleeping well. No changes were made Mental Status Exam Mental Status Exam Narrative: In today's visit she is alert, oriented and pleasant. Normal speech. Good eye contact. Appropriate affect. No signs of psychosis. No SI. Cognitively intact on observation. Judgment is intact Diagnostics Vital Signs (24Hr): Vital Signs - 24 hr 09/18/23 20:00 09/19/23 07:45 Temperature 98.6 F 98.1 F Pulse Rate 71 74 Respiratory Rate 16 16 Blood Pressure 120/61 163/71 H Pulse Oximetry 98 100 Oxygen Delivery Method Room Air Room Air BMI result Body Mass Index 24.9 Labs 09/16/23 20:58 09/16/23 20:58 Medications Medications Current Medications Acetaminophen (Acetaminophen 325 Mg Tablet) 650 mg PO Q6H PRN PRN Reason: Headache/Pain Mild Scale (1-3) Last Admin: 09/18/23 21:03 Dose: 650 mg Al Hydroxide/Mg Hydroxide (Magnesium Hydrox/Alum Hydrox 30 Ml Oral.Susp) 30 ml PO Q6H PRN PRN Reason: Heartburn/Nausea Bupropion HCl (Bupropion Hcl Xl 150 Mg Tab.Er.24h) 150 mg PO DAILY [facility] Last Admin: 09/19/23 08:40 Dose: 150 mg Carbamazepine (Carbamazepine Er 100 Mg Tab.Er.12h) 100 mg PO BID [facility] Last Admin: 09/19/23 08:40 Dose: 100 mg Cariprazine (Cariprazine Hcl 3 Mg Capsule) 3 mg PO BEDTIME [facility] Last Admin: 09/18/23 20:53 Dose: 3 mg Cariprazine (Cariprazine Hcl 1.5 Mg Capsule) 1.5 mg PO BEDTIME [facility] Last Admin: 09/18/23 20:53 Dose: 1.5 mg Donepezil HCl (Donepezil Hcl 10 Mg Tablet) 10 mg PO BEDTIME [facility] Last Admin: 09/18/23 20:54 Dose: 10 mg Lactic Acid (Ammonium Lactate 12 % Lotion 226 Gm Bottle) 1 appl TOPICAL BID PRN; Protocol PRN Reason: dry skin Magnesium Hydroxide (Milk Of Magnesia 30 Ml Oral.Susp) 30 ml PO DAILY PRN PRN Reason: Constipation Melatonin (Melatonin 3 Mg Tablet) 9 mg PO BEDTIME [facility] Last Admin: 09/18/23 20:52 Dose: 9 mg Mirtazapine (Mirtazapine 15 Mg Tablet) 15 mg PO BEDTIME [facility] Last Admin: 09/18/23 20:54 Dose: 15 mg Multivitamins/Vitamin C (Multivitamin Tablet) 1 tab PO BEDTIME [facility] Last Admin: 09/18/23 20:53 Dose: 1 tab Allergies Allergies Allergy/AdvReac Type Severity Reaction Status Date / Time No Known Allergies Allergy Verified 09/16/23 20:07 Assessment & Plan Assessment & Plan (1) Bipolar disorder, most recent episode depressed: Status: Acute Code(s): F31.30 - Bipolar disorder, current episode depressed, mild or moderate severity, unspecified (2) Neurodegenerative cognitive impairment: Status: Acute Code(s): G31.9 - Degenerative disease of nervous system, unspecified Plan DC depakote per pt request. initiate trial of tegretol. complicated drug-drug interactions discussed with pt re tegretol and vraylar, pt opts to continue and declines to return to VPA use, believing it had been making her dizzy (during a period when she was concurrently prescribed 2 mg klonopin QHS). c/o insomnia, reporting prior medication gave her nightmares so will stay away from trazodone and give remeron a try. D/C klonopin as inappropriate for long-term use in this elderly woman. 09/18: Continue current treatment and plan Reason for continued inpatient stay Substantial Risk for: med/psych decompensation Time Spent With Patient Time: Total time managing care of this patient today ____ minutes.
[2023-09-19 20:00] VITALS: BP 132/76; PULSE 85; RESP 16; TEMP 36.6; O2SAT 99
[2023-09-19] MEDS: Cariprazine HCl 1.5 MG CAPSULE PO (22:31)
[2023-09-19] MEDS: Melatonin 3 MG TABLET 9 MG PO (22:32)
[2023-09-19] MEDS: Mirtazapine 15 MG TABLET PO (22:32)
[2023-09-19] MEDS: Cariprazine HCl 3 MG CAPSULE PO (22:32)
[2023-09-19] MEDS: Donepezil HCl 10 MG TABLET PO (22:33)
[2023-09-19] MEDS: Multivitamin TABLET 1 TAB PO (22:33)
[2023-09-19] MEDS: Acetaminophen 325 MG TABLET 650 MG PO (22:33)
[2023-09-20 07:37] VITALS: BP 177/87; PULSE 77; RESP 14; TEMP 36.4; O2SAT 100
[2023-09-20 07:57] VITALS: BP 132/84; PULSE 77
[2023-09-20] MEDS: buPROPion HCl XL 150 MG TAB.ER.24H PO (08:08)
[2023-09-20] MEDS: carBAMazepine ER 100 MG TAB.ER.12H PO ×2 (08:08→22:02)
--- NOTE | 2023-09-20 08:37 | HO.PSYCHPN ---
Subjective Subjective Date of Service: 09/20/23 Reason For Visit: mental health decompensation Subjective Notes: Conditional Voluntary Interim History: Patient was seen and discussed in rounds today. Records and plans were reviewed. She has been stable and continues to be doing better. She has been visible and more social. She also does better in the afternoons. Slight hypomanic symptoms later in the day yesterday. Slept 5 hours. No complaints or side effects. No changes were made today Review of Systems Review of Systems Yes all other systems are reviewed and are negative Mental Status Exam Mental Status Exam Narrative: In today's visit she is alert, oriented and pleasant. Normal speech. Good eye contact. Appropriate affect. No signs of psychosis. No SI. Cognitively intact on observation. Judgment is intact Diagnostics Vital Signs (24Hr): Vital Signs - 24 hr 09/19/23 20:00 09/20/23 07:37 09/20/23 07:57 Temperature 97.9 F 97.6 F Pulse Rate 85 77 77 Respiratory Rate 16 14 Blood Pressure 132/76 177/87 H 132/84 Pulse Oximetry 99 100 Oxygen Delivery Method Room Air Room Air BMI result Body Mass Index 24.9 Labs 09/16/23 20:58 09/16/23 20:58 Medications Medications Current Medications Acetaminophen (Acetaminophen 325 Mg Tablet) 650 mg PO Q6H PRN PRN Reason: Headache/Pain Mild Scale (1-3) Last Admin: 09/19/23 22:33 Dose: 650 mg Al Hydroxide/Mg Hydroxide (Magnesium Hydrox/Alum Hydrox 30 Ml Oral.Susp) 30 ml PO Q6H PRN PRN Reason: Heartburn/Nausea Bupropion HCl (Bupropion Hcl Xl 150 Mg Tab.Er.24h) 150 mg PO DAILY [facility] Last Admin: 09/20/23 08:08 Dose: 150 mg Carbamazepine (Carbamazepine Er 100 Mg Tab.Er.12h) 100 mg PO BID [facility] Last Admin: 09/20/23 08:08 Dose: 100 mg Cariprazine (Cariprazine Hcl 3 Mg Capsule) 3 mg PO BEDTIME [facility] Last Admin: 09/19/23 22:32 Dose: 3 mg Cariprazine (Cariprazine Hcl 1.5 Mg Capsule) 1.5 mg PO BEDTIME [facility] Last Admin: 09/19/23 22:31 Dose: 1.5 mg Donepezil HCl (Donepezil Hcl 10 Mg Tablet) 10 mg PO BEDTIME [facility] Last Admin: 09/19/23 22:33 Dose: 10 mg Lactic Acid (Ammonium Lactate 12 % Lotion 226 Gm Bottle) 1 appl TOPICAL BID PRN; Protocol PRN Reason: dry skin Magnesium Hydroxide (Milk Of Magnesia 30 Ml Oral.Susp) 30 ml PO DAILY PRN PRN Reason: Constipation Melatonin (Melatonin 3 Mg Tablet) 9 mg PO BEDTIME [facility] Last Admin: 09/19/23 22:32 Dose: 9 mg Mirtazapine (Mirtazapine 15 Mg Tablet) 15 mg PO BEDTIME [facility] Last Admin: 09/19/23 22:32 Dose: 15 mg Multivitamins/Vitamin C (Multivitamin Tablet) 1 tab PO BEDTIME [facility] Last Admin: 09/19/23 22:33 Dose: 1 tab Allergies Allergies Allergy/AdvReac Type Severity Reaction Status Date / Time No Known Allergies Allergy Verified 09/16/23 20:07 Assessment & Plan Assessment & Plan (1) Bipolar disorder, most recent episode depressed: Status: Acute Code(s): F31.30 - Bipolar disorder, current episode depressed, mild or moderate severity, unspecified (2) Neurodegenerative cognitive impairment: Status: Acute Code(s): G31.9 - Degenerative disease of nervous system, unspecified Plan DC depakote per pt request. initiate trial of tegretol. complicated drug-drug interactions discussed with pt re tegretol and vraylar, pt opts to continue and declines to return to VPA use, believing it had been making her dizzy (during a period when she was concurrently prescribed 2 mg klonopin QHS). c/o insomnia, reporting prior medication gave her nightmares so will stay away from trazodone and give remeron a try. D/C klonopin as inappropriate for long-term use in this elderly woman. 09/18: Continue current treatment and plan 09/19: Continue current regimen and plans Reason for continued inpatient stay Substantial Risk for: rapid decompensation Time Spent With Patient Time: Total time managing care of this patient today ____ minutes.
[2023-09-20] MEDS: Acetaminophen 325 MG TABLET 650 MG PO ×2 (12:51→22:03)
[2023-09-20 20:00] VITALS: BP 120/70; PULSE 83; RESP 18; TEMP 36.6; O2SAT 98
[2023-09-20] MEDS: Melatonin 3 MG TABLET 9 MG PO (22:02)
[2023-09-20] MEDS: Cariprazine HCl 3 MG CAPSULE PO (22:02)
[2023-09-20] MEDS: Mirtazapine 15 MG TABLET PO (22:02)
[2023-09-20] MEDS: Donepezil HCl 10 MG TABLET PO (22:02)
[2023-09-20] MEDS: Cariprazine HCl 1.5 MG CAPSULE PO (22:02)
[2023-09-20] MEDS: Multivitamin TABLET 1 TAB PO (22:03)
[2023-09-21 07:44] VITALS: BP 133/71; PULSE 76; RESP 14; TEMP 37.1; O2SAT 97
[2023-09-21] MEDS: buPROPion HCl XL 150 MG TAB.ER.24H PO (08:24)
[2023-09-21] MEDS: carBAMazepine ER 100 MG TAB.ER.12H PO ×2 (08:24→22:14)
--- NOTE | 2023-09-21 15:31 | HO.PSYCHPN ---
Subjective Subjective Date of Service: 09/21/23 Reason For Visit: mental health decompensation Interim History: reports her mood suddenly increased over the weekend. now feels back to her usual self. some difficulty sleeping, agrees to use of remeron 7.5 PRN. per staff, active, appropriate. mood much more elevated over w/e. Mental Status Exam Mental Status Exam Narrative: adequate hygiene, dressed in street clothes, cooperative, no PMA/PMR. speech nml rate, incr amount, nml loudness, nml tone, decr latency. thoughts linear and logical. mood much better. more myself. affect full range, normo-intense, non-labile. no SI/SIBI/HI/AVH expressed. Diagnostics Vital Signs (24Hr): Vital Signs - 24 hr 09/20/23 20:00 09/21/23 07:44 Temperature 97.8 F 98.8 F Pulse Rate 83 76 Respiratory Rate 18 14 Blood Pressure 120/70 133/71 Pulse Oximetry 98 97 Oxygen Delivery Method Room Air Room Air BMI result Body Mass Index 24.9 Labs 09/16/23 20:58 09/16/23 20:58 Medications Medications Current Medications Acetaminophen (Acetaminophen 325 Mg Tablet) 650 mg PO Q6H PRN PRN Reason: Headache/Pain Mild Scale (1-3) Last Admin: 09/20/23 22:03 Dose: 650 mg Al Hydroxide/Mg Hydroxide (Magnesium Hydrox/Alum Hydrox 30 Ml Oral.Susp) 30 ml PO Q6H PRN PRN Reason: Heartburn/Nausea Bupropion HCl (Bupropion Hcl Xl 150 Mg Tab.Er.24h) 150 mg PO DAILY [facility] Last Admin: 09/21/23 08:24 Dose: 150 mg Carbamazepine (Carbamazepine Er 100 Mg Tab.Er.12h) 100 mg PO BID [facility] Last Admin: 09/21/23 08:24 Dose: 100 mg Cariprazine (Cariprazine Hcl 3 Mg Capsule) 3 mg PO BEDTIME [facility] Last Admin: 09/20/23 22:02 Dose: 3 mg Cariprazine (Cariprazine Hcl 1.5 Mg Capsule) 1.5 mg PO BEDTIME [facility] Last Admin: 09/20/23 22:02 Dose: 1.5 mg Donepezil HCl (Donepezil Hcl 10 Mg Tablet) 10 mg PO BEDTIME [facility] Last Admin: 09/20/23 22:02 Dose: 10 mg Lactic Acid (Ammonium Lactate 12 % Lotion 226 Gm Bottle) 1 appl TOPICAL BID PRN; Protocol PRN Reason: dry skin Magnesium Hydroxide (Milk Of Magnesia 30 Ml Oral.Susp) 30 ml PO DAILY PRN PRN Reason: Constipation Melatonin (Melatonin 3 Mg Tablet) 9 mg PO BEDTIME [facility] Last Admin: 09/20/23 22:02 Dose: 9 mg Mirtazapine (Mirtazapine 15 Mg Tablet) 15 mg PO BEDTIME [facility] Last Admin: 09/20/23 22:02 Dose: 15 mg Mirtazapine (Mirtazapine 7.5 Mg Tablet) 7.5 mg PO BEDTIME PRN PRN Reason: insomnia Multivitamins/Vitamin C (Multivitamin Tablet) 1 tab PO BEDTIME [facility] Last Admin: 09/20/23 22:03 Dose: 1 tab Allergies Allergies Allergy/AdvReac Type Severity Reaction Status Date / Time No Known Allergies Allergy Verified 09/16/23 20:07 Assessment & Plan Assessment & Plan (1) Bipolar disorder, most recent episode depressed: Status: Acute Code(s): F31.30 - Bipolar disorder, current episode depressed, mild or moderate severity, unspecified (2) Neurodegenerative cognitive impairment: Status: Acute Code(s): G31.9 - Degenerative disease of nervous system, unspecified Plan DC depakote per pt request. initiate trial of tegretol. complicated drug-drug interactions discussed with pt re tegretol and vraylar, pt opts to continue and declines to return to VPA use, believing it had been making her dizzy (during a period when she was concurrently prescribed 2 mg klonopin QHS). c/o insomnia, reporting prior medication gave her nightmares so will stay away from trazodone and give remeron a try. D/C klonopin as inappropriate for long-term use in this elderly woman. 09/18: Continue current treatment and plan 09/19: Continue current regimen and plans 09/20: mood suddenly improved over the weekend, appearing hypomanic now. continue current mgmt for the time being. T/C increasing tegretol dosing if continues to trend manic. Reason for continued inpatient stay Substantial Risk for: inability to function and rapid decompensation Time Spent With Patient Time: Total time managing care of this patient today __25__ minutes.
[2023-09-21 19:15] VITALS: BP 134/76; PULSE 81; RESP 16; TEMP 36.4; O2SAT 100
[2023-09-21] MEDS: Mirtazapine 15 MG TABLET PO (22:13)
[2023-09-21] MEDS: Cariprazine HCl 3 MG CAPSULE PO (22:13)
[2023-09-21] MEDS: Melatonin 3 MG TABLET 9 MG PO (22:13)
[2023-09-21] MEDS: Donepezil HCl 10 MG TABLET PO (22:14)
[2023-09-21] MEDS: Cariprazine HCl 1.5 MG CAPSULE PO (22:14)
[2023-09-21] MEDS: Multivitamin TABLET 1 TAB PO (22:14)
[2023-09-22] MEDS: Mirtazapine 7.5 MG TABLET PO (01:36)
[2023-09-22 07:44] VITALS: BP 146/86; PULSE 73; RESP 14; TEMP 36.4; O2SAT 99
[2023-09-22] MEDS: carBAMazepine ER 100 MG TAB.ER.12H PO ×2 (08:13→22:25)
[2023-09-22] MEDS: buPROPion HCl XL 150 MG TAB.ER.24H PO (08:13)
--- NOTE | 2023-09-22 11:47 | P.PNPSI_ITS ---
Subjective Subjective Date of Service: 09/22/23 Reason For Visit: mental health decompensation Interim History: calm, cooperative. reports poor sleep, mood remains good. discuss continuing present regimen for now. per staff, variable affect. slightly elevated mood. visible, friendly, social. taking meds. slept 7 hours. eager for discharge. Mental Status Exam Mental Status Exam Narrative: adequate hygiene, dressed in street clothes, cooperative, no PMA/PMR. speech nml rate, amount, loudness, tone, decr latency. thoughts linear and logical. mood still good affect full range, normo-intense, non-labile. no SI/SIBI/HI/AVH expressed. Diagnostics Vital Signs (24Hr): Vital Signs - 24 hr 09/21/23 19:15 09/22/23 07:44 Temperature 97.5 F 97.6 F Pulse Rate 81 73 Respiratory Rate 16 14 Blood Pressure 134/76 146/86 H Pulse Oximetry 100 99 Oxygen Delivery Method Room Air Room Air BMI result Body Mass Index 24.9 Labs 09/16/23 20:58 09/16/23 20:58 Medications Medications Current Medications Acetaminophen (Acetaminophen 325 Mg Tablet) 650 mg PO Q6H PRN PRN Reason: Headache/Pain Mild Scale (1-3) Last Admin: 09/20/23 22:03 Dose: 650 mg Al Hydroxide/Mg Hydroxide (Magnesium Hydrox/Alum Hydrox 30 Ml Oral.Susp) 30 ml PO Q6H PRN PRN Reason: Heartburn/Nausea Bupropion HCl (Bupropion Hcl Xl 150 Mg Tab.Er.24h) 150 mg PO DAILY [facility] Last Admin: 09/22/23 08:13 Dose: 150 mg Carbamazepine (Carbamazepine Er 100 Mg Tab.Er.12h) 100 mg PO BID [facility] Last Admin: 09/22/23 08:13 Dose: 100 mg Cariprazine (Cariprazine Hcl 3 Mg Capsule) 3 mg PO BEDTIME [facility] Last Admin: 09/21/23 22:13 Dose: 3 mg Cariprazine (Cariprazine Hcl 1.5 Mg Capsule) 1.5 mg PO BEDTIME [facility] Last Admin: 09/21/23 22:14 Dose: 1.5 mg Donepezil HCl (Donepezil Hcl 10 Mg Tablet) 10 mg PO BEDTIME [facility] Last Admin: 09/21/23 22:14 Dose: 10 mg Lactic Acid (Ammonium Lactate 12 % Lotion 226 Gm Bottle) 1 appl TOPICAL BID PRN; Protocol PRN Reason: dry skin Magnesium Hydroxide (Milk Of Magnesia 30 Ml Oral.Susp) 30 ml PO DAILY PRN PRN Reason: Constipation Melatonin (Melatonin 3 Mg Tablet) 9 mg PO BEDTIME [facility] Last Admin: 09/21/23 22:13 Dose: 9 mg Mirtazapine (Mirtazapine 15 Mg Tablet) 15 mg PO BEDTIME [facility] Last Admin: 09/21/23 22:13 Dose: 15 mg Mirtazapine (Mirtazapine 7.5 Mg Tablet) 7.5 mg PO BEDTIME PRN PRN Reason: insomnia Last Admin: 09/22/23 01:36 Dose: 7.5 mg Multivitamins/Vitamin C (Multivitamin Tablet) 1 tab PO BEDTIME [facility] Last Admin: 09/21/23 22:14 Dose: 1 tab Allergies Allergies Allergy/AdvReac Type Severity Reaction Status Date / Time No Known Allergies Allergy Verified 09/16/23 20:07 Assessment & Plan Assessment & Plan (1) Bipolar disorder, most recent episode depressed: Status: Acute Code(s): F31.30 - Bipolar disorder, current episode depressed, mild or moderate severity, unspecified (2) Neurodegenerative cognitive impairment: Status: Acute Code(s): G31.9 - Degenerative disease of nervous system, unspecified Plan DC depakote per pt request. initiate trial of tegretol. complicated drug-drug interactions discussed with pt re tegretol and vraylar, pt opts to continue and declines to return to VPA use, believing it had been making her dizzy (during a period when she was concurrently prescribed 2 mg klonopin QHS). c/o insomnia, reporting prior medication gave her nightmares so will stay away from trazodone and give remeron a try. D/C klonopin as inappropriate for long-term use in this elderly woman. 09/18: Continue current treatment and plan 09/19: Continue current regimen and plans 09/20: mood suddenly improved over the weekend, appearing hypomanic now. continue current mgmt for the time being. T/C increasing tegretol dosing if continues to trend manic. 09/21: mood remains improved, some difficulty sleeping. trend clinical presentation and sleep. plan to check labs next week due to long period required for tegretol to reach steady state. Reason for continued inpatient stay Substantial Risk for: inability to function and rapid decompensation Time Spent With Patient Time: Total time managing care of this patient today __25__ minutes.
[2023-09-22 20:00] VITALS: BP 130/77; PULSE 93; RESP 16; TEMP 36.5; O2SAT 99
[2023-09-22] MEDS: Donepezil HCl 10 MG TABLET PO (22:25)
[2023-09-22] MEDS: Multivitamin TABLET 1 TAB PO (22:25)
[2023-09-22] MEDS: Cariprazine HCl 3 MG CAPSULE PO (22:25)
[2023-09-22] MEDS: Melatonin 3 MG TABLET 9 MG PO (22:25)
[2023-09-22] MEDS: Cariprazine HCl 1.5 MG CAPSULE PO (22:25)
[2023-09-22] MEDS: Mirtazapine 15 MG TABLET PO (22:26)
[2023-09-23] MEDS: Acetaminophen 325 MG TABLET 650 MG PO (05:11)
[2023-09-23 08:00] VITALS: BP 127/64; PULSE 93; RESP 16; TEMP 36.4; O2SAT 100
[2023-09-23] MEDS: carBAMazepine ER 100 MG TAB.ER.12H PO ×2 (08:08→22:11)
[2023-09-23] MEDS: buPROPion HCl XL 150 MG TAB.ER.24H PO (08:09)
--- NOTE | 2023-09-23 13:10 | HO.PSYCHPN ---
Subjective Subjective Date of Service: 09/23/23 Reason For Visit: mental health decompensation Interim History: sleeping adequately, mood still good. no questions or complaints. per staff, no issues. slept 6 hours. taking meds. Mental Status Exam Mental Status Exam Narrative: adequate hygiene, dressed in street clothes, cooperative, no PMA/PMR. speech nml rate, amount, loudness, tone, decr latency. thoughts linear and logical. mood still good affect full range, normo-intense, non-labile. no SI/SIBI/HI/AVH expressed. Diagnostics Vital Signs (24Hr): Vital Signs - 24 hr 09/22/23 20:00 09/23/23 08:00 Temperature 97.7 F 97.6 F Pulse Rate 93 93 Respiratory Rate 16 16 Blood Pressure 130/77 127/64 Pulse Oximetry 99 100 Oxygen Delivery Method Room Air Room Air BMI result Body Mass Index 24.9 Labs 09/16/23 20:58 09/16/23 20:58 Medications Medications Current Medications Acetaminophen (Acetaminophen 325 Mg Tablet) 650 mg PO Q6H PRN PRN Reason: Headache/Pain Mild Scale (1-3) Last Admin: 09/23/23 05:11 Dose: 650 mg Al Hydroxide/Mg Hydroxide (Magnesium Hydrox/Alum Hydrox 30 Ml Oral.Susp) 30 ml PO Q6H PRN PRN Reason: Heartburn/Nausea Bupropion HCl (Bupropion Hcl Xl 150 Mg Tab.Er.24h) 150 mg PO DAILY [facility] Last Admin: 09/23/23 08:09 Dose: 150 mg Carbamazepine (Carbamazepine Er 100 Mg Tab.Er.12h) 100 mg PO BID [facility] Last Admin: 09/23/23 08:08 Dose: 100 mg Cariprazine (Cariprazine Hcl 3 Mg Capsule) 3 mg PO BEDTIME [facility] Last Admin: 09/22/23 22:25 Dose: 3 mg Cariprazine (Cariprazine Hcl 1.5 Mg Capsule) 1.5 mg PO BEDTIME [facility] Last Admin: 09/22/23 22:25 Dose: 1.5 mg Donepezil HCl (Donepezil Hcl 10 Mg Tablet) 10 mg PO BEDTIME [facility] Last Admin: 09/22/23 22:25 Dose: 10 mg Lactic Acid (Ammonium Lactate 12 % Lotion 226 Gm Bottle) 1 appl TOPICAL BID PRN; Protocol PRN Reason: dry skin Magnesium Hydroxide (Milk Of Magnesia 30 Ml Oral.Susp) 30 ml PO DAILY PRN PRN Reason: Constipation Melatonin (Melatonin 3 Mg Tablet) 9 mg PO BEDTIME [facility] Last Admin: 09/22/23 22:25 Dose: 9 mg Mirtazapine (Mirtazapine 15 Mg Tablet) 15 mg PO BEDTIME [facility] Last Admin: 09/22/23 22:26 Dose: 15 mg Mirtazapine (Mirtazapine 7.5 Mg Tablet) 7.5 mg PO BEDTIME PRN PRN Reason: insomnia Last Admin: 09/22/23 01:36 Dose: 7.5 mg Multivitamins/Vitamin C (Multivitamin Tablet) 1 tab PO BEDTIME [facility] Last Admin: 09/22/23 22:25 Dose: 1 tab Allergies Allergies Allergy/AdvReac Type Severity Reaction Status Date / Time No Known Allergies Allergy Verified 09/16/23 20:07 Assessment & Plan Assessment & Plan (1) Bipolar disorder, most recent episode depressed: Status: Acute Code(s): F31.30 - Bipolar disorder, current episode depressed, mild or moderate severity, unspecified (2) Neurodegenerative cognitive impairment: Status: Acute Code(s): G31.9 - Degenerative disease of nervous system, unspecified Plan DC depakote per pt request. initiate trial of tegretol. complicated drug-drug interactions discussed with pt re tegretol and vraylar, pt opts to continue and declines to return to VPA use, believing it had been making her dizzy (during a period when she was concurrently prescribed 2 mg klonopin QHS). c/o insomnia, reporting prior medication gave her nightmares so will stay away from trazodone and give remeron a try. D/C klonopin as inappropriate for long-term use in this elderly woman. 09/18: Continue current treatment and plan 09/19: Continue current regimen and plans 09/20: mood suddenly improved over the weekend, appearing hypomanic now. continue current mgmt for the time being. T/C increasing tegretol dosing if continues to trend manic. 09/21: mood remains improved, some difficulty sleeping. trend clinical presentation and sleep. plan to check labs next week due to long period required for tegretol to reach steady state. 09/22: sleeping adequately, mood remains improved, feeling well. continue current mgmt. Reason for continued inpatient stay Substantial Risk for: inability to function and rapid decompensation Time Spent With Patient Time: Total time managing care of this patient today __25__ minutes.
[2023-09-23 19:20] VITALS: BP 120/79; PULSE 89; RESP 16; TEMP 36.6; O2SAT 98
[2023-09-23] MEDS: Melatonin 3 MG TABLET 9 MG PO (22:09)
[2023-09-23] MEDS: Multivitamin TABLET 1 TAB PO (22:09)
[2023-09-23] MEDS: Mirtazapine 15 MG TABLET PO (22:09)
[2023-09-23] MEDS: Cariprazine HCl 1.5 MG CAPSULE PO (22:10)
[2023-09-23] MEDS: Donepezil HCl 10 MG TABLET PO (22:10)
[2023-09-23] MEDS: Cariprazine HCl 3 MG CAPSULE PO (22:11)
[2023-09-24] MEDS: Acetaminophen 325 MG TABLET 650 MG PO ×4 (00:13→23:49)
--- NOTE | 2023-09-24 00:14 | PC.NURSE ---
Patient requested Tylenol for back hip pain 3-08/11
[2023-09-24 07:00] VITALS: BMI 26.7
[2023-09-24 07:41] VITALS: BP 143/79; PULSE 77; RESP 16; TEMP 36.4; O2SAT 99
[2023-09-24] MEDS: carBAMazepine ER 100 MG TAB.ER.12H PO ×2 (08:14→22:23)
[2023-09-24] MEDS: buPROPion HCl XL 150 MG TAB.ER.24H PO (08:14)
--- NOTE | 2023-09-24 13:44 | HO.PSYCHPN ---
Subjective Subjective Date of Service: 09/24/23 Reason For Visit: mental health decompensation Interim History: reports she is sleeping off and on. at least 5 hours, wakes up feeling refreshed. mood very good. no requests or complaints. per staff, no dep. some anxiety. taking meds, attending groups. denies SI/HI/AVH. slept about 5 hours. requesting TEDs. Mental Status Exam Mental Status Exam Narrative: adequate hygiene, dressed in street clothes, cooperative, no PMA/PMR. speech nml rate, amount, loudness, tone, decr latency. thoughts linear and logical. mood very good affect full range, normo-intense, non-labile. no SI/SIBI/HI/AVH expressed. Diagnostics Vital Signs (24Hr): Vital Signs - 24 hr 09/23/23 19:20 09/24/23 07:41 Temperature 97.9 F 97.6 F Pulse Rate 89 77 Respiratory Rate 16 16 Blood Pressure 120/79 143/79 H Pulse Oximetry 98 99 Oxygen Delivery Method Room Air Room Air BMI result Body Mass Index 26.7 Labs 09/16/23 20:58 09/16/23 20:58 Medications Medications Current Medications Acetaminophen (Acetaminophen 325 Mg Tablet) 650 mg PO Q6H PRN PRN Reason: Headache/Pain Mild Scale (1-3) Last Admin: 09/24/23 08:24 Dose: 650 mg Al Hydroxide/Mg Hydroxide (Magnesium Hydrox/Alum Hydrox 30 Ml Oral.Susp) 30 ml PO Q6H PRN PRN Reason: Heartburn/Nausea Bupropion HCl (Bupropion Hcl Xl 150 Mg Tab.Er.24h) 150 mg PO DAILY [facility] Last Admin: 09/24/23 08:14 Dose: 150 mg Carbamazepine (Carbamazepine Er 100 Mg Tab.Er.12h) 100 mg PO BID [facility] Last Admin: 09/24/23 08:14 Dose: 100 mg Cariprazine (Cariprazine Hcl 3 Mg Capsule) 3 mg PO BEDTIME [facility] Last Admin: 09/23/23 22:11 Dose: 3 mg Cariprazine (Cariprazine Hcl 1.5 Mg Capsule) 1.5 mg PO BEDTIME [facility] Last Admin: 09/23/23 22:10 Dose: 1.5 mg Donepezil HCl (Donepezil Hcl 10 Mg Tablet) 10 mg PO BEDTIME [facility] Last Admin: 09/23/23 22:10 Dose: 10 mg Lactic Acid (Ammonium Lactate 12 % Lotion 226 Gm Bottle) 1 appl TOPICAL BID PRN; Protocol PRN Reason: dry skin Magnesium Hydroxide (Milk Of Magnesia 30 Ml Oral.Susp) 30 ml PO DAILY PRN PRN Reason: Constipation Melatonin (Melatonin 3 Mg Tablet) 9 mg PO BEDTIME [facility] Last Admin: 09/23/23 22:09 Dose: 9 mg Mirtazapine (Mirtazapine 15 Mg Tablet) 15 mg PO BEDTIME [facility] Last Admin: 09/23/23 22:09 Dose: 15 mg Mirtazapine (Mirtazapine 7.5 Mg Tablet) 7.5 mg PO BEDTIME PRN PRN Reason: insomnia Last Admin: 09/22/23 01:36 Dose: 7.5 mg Multivitamins/Vitamin C (Multivitamin Tablet) 1 tab PO BEDTIME [facility] Last Admin: 09/23/23 22:09 Dose: 1 tab Allergies Allergies Allergy/AdvReac Type Severity Reaction Status Date / Time No Known Allergies Allergy Verified 09/16/23 20:07 Assessment & Plan Assessment & Plan (1) Bipolar disorder, most recent episode depressed: Status: Acute Code(s): F31.30 - Bipolar disorder, current episode depressed, mild or moderate severity, unspecified (2) Neurodegenerative cognitive impairment: Status: Acute Code(s): G31.9 - Degenerative disease of nervous system, unspecified Plan DC depakote per pt request. initiate trial of tegretol. complicated drug-drug interactions discussed with pt re tegretol and vraylar, pt opts to continue and declines to return to VPA use, believing it had been making her dizzy (during a period when she was concurrently prescribed 2 mg klonopin QHS). c/o insomnia, reporting prior medication gave her nightmares so will stay away from trazodone and give remeron a try. D/C klonopin as inappropriate for long-term use in this elderly woman. 09/18: Continue current treatment and plan 09/19: Continue current regimen and plans 09/20: mood suddenly improved over the weekend, appearing hypomanic now. continue current mgmt for the time being. T/C increasing tegretol dosing if continues to trend manic. 09/21: mood remains improved, some difficulty sleeping. trend clinical presentation and sleep. plan to check labs next week due to long period required for tegretol to reach steady state. 09/22: sleeping adequately, mood remains improved, feeling well. continue current mgmt. 09/23: continues to sleep well, in good spirits. continue current mgmt. provide with TEDs as per her request. Reason for continued inpatient stay Substantial Risk for: inability to function and rapid decompensation Time Spent With Patient Time: Total time managing care of this patient today __25__ minutes.
[2023-09-24 19:47] VITALS: BP 125/71; PULSE 96; RESP 18; TEMP 37; O2SAT 97
[2023-09-24] MEDS: Cariprazine HCl 3 MG CAPSULE PO (22:20)
[2023-09-24] MEDS: Cariprazine HCl 1.5 MG CAPSULE PO (22:20)
[2023-09-24] MEDS: Multivitamin TABLET 1 TAB PO (22:21)
[2023-09-24] MEDS: Melatonin 3 MG TABLET 9 MG PO (22:22)
[2023-09-24] MEDS: Donepezil HCl 10 MG TABLET PO (22:22)
[2023-09-24] MEDS: Mirtazapine 15 MG TABLET PO (22:23)
[2023-09-25] MEDS: Acetaminophen 325 MG TABLET 650 MG PO (06:19)
[2023-09-25 07:56] VITALS: BP 131/59; PULSE 81; RESP 18; TEMP 36.5; O2SAT 98
[2023-09-25] MEDS: carBAMazepine ER 100 MG TAB.ER.12H PO ×2 (08:53→21:48)
[2023-09-25] MEDS: buPROPion HCl XL 150 MG TAB.ER.24H PO (08:53)
--- NOTE | 2023-09-25 14:10 | P.PNPSI_ITS ---
Subjective Subjective Date of Service: 09/25/23 Reason For Visit: mental health decompensation Interim History: calm, cooperative, pleasant. hoping to discharge next thursday, which is feasible. will check labs thursday dona. c/o flank/glute pain, likely musculoskeletal, started since admission. willing to have PT eval. per staff, doing well, taking meds. slept only 3-4 hours last night, however. she reports it is due to nocturia. Mental Status Exam Mental Status Exam Narrative: adequate hygiene, dressed in street clothes, cooperative, no PMA/PMR. speech nml rate, amount, loudness, tone, decr latency. thoughts linear and logical. mood good. affect full range, normo-intense, non-labile. no SI/SIBI/HI/AVH expressed. Diagnostics Vital Signs (24Hr): Vital Signs - 24 hr 09/24/23 19:47 09/25/23 07:56 Temperature 98.6 F 97.7 F Pulse Rate 96 81 Respiratory Rate 18 18 Blood Pressure 125/71 131/59 L Pulse Oximetry 97 98 Oxygen Delivery Method Room Air Room Air BMI result Body Mass Index 26.7 Labs 09/16/23 20:58 09/16/23 20:58 Medications Medications Current Medications Acetaminophen (Acetaminophen 325 Mg Tablet) 650 mg PO Q6H PRN PRN Reason: Headache/Pain Mild Scale (1-3) Last Admin: 09/25/23 06:19 Dose: 650 mg Al Hydroxide/Mg Hydroxide (Magnesium Hydrox/Alum Hydrox 30 Ml Oral.Susp) 30 ml PO Q6H PRN PRN Reason: Heartburn/Nausea Bupropion HCl (Bupropion Hcl Xl 150 Mg Tab.Er.24h) 150 mg PO DAILY [facility] Last Admin: 09/25/23 08:53 Dose: 150 mg Carbamazepine (Carbamazepine Er 100 Mg Tab.Er.12h) 100 mg PO BID [facility] Last Admin: 09/25/23 08:53 Dose: 100 mg Cariprazine (Cariprazine Hcl 3 Mg Capsule) 3 mg PO BEDTIME [facility] Last Admin: 09/24/23 22:20 Dose: 3 mg Cariprazine (Cariprazine Hcl 1.5 Mg Capsule) 1.5 mg PO BEDTIME [facility] Last Admin: 09/24/23 22:20 Dose: 1.5 mg Donepezil HCl (Donepezil Hcl 10 Mg Tablet) 10 mg PO BEDTIME [facility] Last Admin: 09/24/23 22:22 Dose: 10 mg Lactic Acid (Ammonium Lactate 12 % Lotion 226 Gm Bottle) 1 appl TOPICAL BID PRN; Protocol PRN Reason: dry skin Magnesium Hydroxide (Milk Of Magnesia 30 Ml Oral.Susp) 30 ml PO DAILY PRN PRN Reason: Constipation Melatonin (Melatonin 3 Mg Tablet) 9 mg PO BEDTIME [facility] Last Admin: 09/24/23 22:22 Dose: 9 mg Mirtazapine (Mirtazapine 15 Mg Tablet) 15 mg PO BEDTIME [facility] Last Admin: 09/24/23 22:23 Dose: 15 mg Mirtazapine (Mirtazapine 7.5 Mg Tablet) 7.5 mg PO BEDTIME PRN PRN Reason: insomnia Last Admin: 09/22/23 01:36 Dose: 7.5 mg Multivitamins/Vitamin C (Multivitamin Tablet) 1 tab PO BEDTIME [facility] Last Admin: 09/24/23 22:21 Dose: 1 tab Allergies Allergies Allergy/AdvReac Type Severity Reaction Status Date / Time No Known Allergies Allergy Verified 09/16/23 20:07 Assessment & Plan Assessment & Plan (1) Bipolar disorder, most recent episode depressed: Status: Acute Code(s): F31.30 - Bipolar disorder, current episode depressed, mild or moderate severity, unspecified (2) Neurodegenerative cognitive impairment: Status: Acute Code(s): G31.9 - Degenerative disease of nervous system, unspecified Plan DC depakote per pt request. initiate trial of tegretol. complicated drug-drug interactions discussed with pt re tegretol and vraylar, pt opts to continue and declines to return to VPA use, believing it had been making her dizzy (during a period when she was concurrently prescribed 2 mg klonopin QHS). c/o insomnia, reporting prior medication gave her nightmares so will stay away from trazodone and give remeron a try. D/C klonopin as inappropriate for long-term use in this elderly woman. 09/18: Continue current treatment and plan 09/19: Continue current regimen and plans 09/20: mood suddenly improved over the weekend, appearing hypomanic now. continue current mgmt for the time being. T/C increasing tegretol dosing if continues to trend manic. 09/21: mood remains improved, some difficulty sleeping. trend clinical presentation and sleep. plan to check labs next week due to long period required for tegretol to reach steady state. 09/22: sleeping adequately, mood remains improved, feeling well. continue current mgmt. 09/23: continues to sleep well, in good spirits. continue current mgmt. provide with TEDs as per her request. 09/24: continues well, still sleeping only 3-4 hours. planning for labs draw next thursday and discharge . Reason for continued inpatient stay Substantial Risk for: inability to function and rapid decompensation Time Spent With Patient Time: Total time managing care of this patient today __25__ minutes.
[2023-09-25 20:07] VITALS: BP 159/84; PULSE 110; RESP 18; TEMP 36.5; O2SAT 98
[2023-09-25] MEDS: Mirtazapine 15 MG TABLET PO (21:48)
[2023-09-25] MEDS: Cariprazine HCl 3 MG CAPSULE PO (21:48)
[2023-09-25] MEDS: Cariprazine HCl 1.5 MG CAPSULE PO (21:49)
[2023-09-25] MEDS: Multivitamin TABLET 1 TAB PO (21:49)
[2023-09-25] MEDS: Melatonin 3 MG TABLET 9 MG PO (21:49)
[2023-09-25] MEDS: Donepezil HCl 10 MG TABLET PO (21:49)
[2023-09-26] MEDS: Acetaminophen 325 MG TABLET 650 MG PO (03:29)
[2023-09-26 07:44] VITALS: BP 135/80; PULSE 95; RESP 16; TEMP 36.5; O2SAT 99
[2023-09-26] MEDS: carBAMazepine ER 100 MG TAB.ER.12H PO ×2 (08:38→21:54)
[2023-09-26] MEDS: buPROPion HCl XL 150 MG TAB.ER.24H PO (08:38)
--- NOTE | 2023-09-26 08:53 | HO.PSYCHPN ---
Subjective Subjective Date of Service: 09/26/23 Reason For Visit: mental health decompensation Interim History: calm, cooperative, pleasant. Complaining of left lower back/flank pain. Denies urinary symptoms. Also chafing inner thighs. Mood improved. No SI. Hoping to discharge next week. Tolerating medications well. Per staff, doing well, taking meds. Review of Systems Review of Systems Constitutional : No Weight loss, No Fever, No Chills, No Night Sweats, No Fatigue, No Malaise ENT/Mouth : No Hearing loss, No Ear Pain, No Nasal Congestion, No Sinus Pain, No Hoarseness, No sore throat, No Rhinorrhea, No Swallowing Difficulty Eyes: No Eye Pain, No Swelling, No Redness, No Foreign Body, No Discharge, No Vision Changes Cardiovascular : No Chest Pain, No SOB, No Dyspnea on Exertion, No Orthopnea, No Edema, No Palpitations Respiratory : No Cough, No Sputum, No Wheezing, No Smoke Exposure, No Dyspnea Gastrointestinal : No Nausea, No Vomiting, No Diarrhea, No Constipation, No abdominal Pain, No Hematochezia, No Melena Genitourinary : no irregular bleeding, No Dysuria, No Urinary Frequency, No Hematuria, No Urinary Incontinence, No Urgency, No Flank Pain, No Urinary Flow Changes, No Hesitancy Musculoskeletal : No joint pain, No Myalgias, No Joint Swelling Skin : No Skin Lesions, No rash Neuro : No Weakness, No Numbness, No Paresthesias, No Loss of Consciousness, No Dizziness, No Headache Psych : Complaining of feeling a bit more depressed, not sleeping well, no taking showers and not take care of herself Heme/Lymph: No Bruising, No Bleeding,No Lymphadenopathy Endocrine : No Polyuria, No Polydipsia, No Temperature Intolerance Yes all other systems are reviewed and are negative Mental Status Exam Mental Status Exam Narrative: adequate hygiene, dressed in street clothes, cooperative, no PMA/PMR. speech nml rate, amount, loudness, tone, decr latency. thoughts linear and logical. mood good. affect full range, normo-intense, non-labile. no SI/SIBI/HI/AVH expressed. Diagnostics Vital Signs (24Hr): Vital Signs - 24 hr 09/25/23 20:07 09/26/23 07:44 Temperature 97.7 F 97.7 F Pulse Rate 110 H 95 Respiratory Rate 18 16 Blood Pressure 159/84 H 135/80 Pulse Oximetry 98 99 Oxygen Delivery Method Room Air Room Air BMI result Body Mass Index 26.7 Labs 09/16/23 20:58 09/16/23 20:58 Medications Medications Current Medications Acetaminophen (Acetaminophen 325 Mg Tablet) 650 mg PO Q6H PRN PRN Reason: Headache/Pain Mild Scale (1-3) Last Admin: 09/26/23 03:29 Dose: 650 mg Al Hydroxide/Mg Hydroxide (Magnesium Hydrox/Alum Hydrox 30 Ml Oral.Susp) 30 ml PO Q6H PRN PRN Reason: Heartburn/Nausea Bupropion HCl (Bupropion Hcl Xl 150 Mg Tab.Er.24h) 150 mg PO DAILY [facility] Last Admin: 09/26/23 08:38 Dose: 150 mg Carbamazepine (Carbamazepine Er 100 Mg Tab.Er.12h) 100 mg PO BID [facility] Last Admin: 09/26/23 08:38 Dose: 100 mg Cariprazine (Cariprazine Hcl 3 Mg Capsule) 3 mg PO BEDTIME [facility] Last Admin: 09/25/23 21:48 Dose: 3 mg Cariprazine (Cariprazine Hcl 1.5 Mg Capsule) 1.5 mg PO BEDTIME [facility] Last Admin: 09/25/23 21:49 Dose: 1.5 mg Donepezil HCl (Donepezil Hcl 10 Mg Tablet) 10 mg PO BEDTIME [facility] Last Admin: 09/25/23 21:49 Dose: 10 mg Lactic Acid (Ammonium Lactate 12 % Lotion 226 Gm Bottle) 1 appl TOPICAL BID PRN; Protocol PRN Reason: dry skin Magnesium Hydroxide (Milk Of Magnesia 30 Ml Oral.Susp) 30 ml PO DAILY PRN PRN Reason: Constipation Melatonin (Melatonin 3 Mg Tablet) 9 mg PO BEDTIME [facility] Last Admin: 09/25/23 21:49 Dose: 9 mg Mirtazapine (Mirtazapine 15 Mg Tablet) 15 mg PO BEDTIME [facility] Last Admin: 09/25/23 21:48 Dose: 15 mg Mirtazapine (Mirtazapine 7.5 Mg Tablet) 7.5 mg PO BEDTIME PRN PRN Reason: insomnia Last Admin: 09/22/23 01:36 Dose: 7.5 mg Multivitamins/Vitamin C (Multivitamin Tablet) 1 tab PO BEDTIME [facility] Last Admin: 09/25/23 21:49 Dose: 1 tab Allergies Allergies Allergy/AdvReac Type Severity Reaction Status Date / Time No Known Allergies Allergy Verified 09/16/23 20:07 Assessment & Plan Assessment & Plan (1) Bipolar disorder, most recent episode depressed: Status: Acute Code(s): F31.30 - Bipolar disorder, current episode depressed, mild or moderate severity, unspecified (2) Neurodegenerative cognitive impairment: Status: Acute Code(s): G31.9 - Degenerative disease of nervous system, unspecified Plan DC depakote per pt request. initiate trial of tegretol. complicated drug-drug interactions discussed with pt re tegretol and vraylar, pt opts to continue and declines to return to VPA use, believing it had been making her dizzy (during a period when she was concurrently prescribed 2 mg klonopin QHS). c/o insomnia, reporting prior medication gave her nightmares so will stay away from trazodone and give remeron a try. D/C klonopin as inappropriate for long-term use in this elderly woman. 09/18: Continue current treatment and plan 09/19: Continue current regimen and plans 09/20: mood suddenly improved over the weekend, appearing hypomanic now. continue current mgmt for the time being. T/C increasing tegretol dosing if continues to trend manic. 09/21: mood remains improved, some difficulty sleeping. trend clinical presentation and sleep. plan to check labs next week due to long period required for tegretol to reach steady state. 09/22: sleeping adequately, mood remains improved, feeling well. continue current mgmt. 09/23: continues to sleep well, in good spirits. continue current mgmt. provide with TEDs as per her request. 09/24: continues well, still sleeping only 3-4 hours. planning for labs draw next thursday and discharge . 09/25: Lidocaine patch to lower back. Consider UA and imaging if not better. Eucerin cream for inner thigh chafing. Will check labs Thursday. Reason for continued inpatient stay Substantial Risk for: inability to function and rapid decompensation Time Spent With Patient Time: Total time managing care of this patient today ____ minutes.
[2023-09-26] MEDS: Lidocaine 4 % Patch ADH..PATCH 1 PATCH TRANSDERMA (12:08)
[2023-09-26 19:53] VITALS: BP 134/79; PULSE 106; RESP 16; TEMP 36.8; O2SAT 96
[2023-09-26] MEDS: Cariprazine HCl 1.5 MG CAPSULE PO (21:54)
[2023-09-26] MEDS: Melatonin 3 MG TABLET 9 MG PO (21:54)
[2023-09-26] MEDS: Multivitamin TABLET 1 TAB PO (21:54)
[2023-09-26] MEDS: Donepezil HCl 10 MG TABLET PO (21:54)
[2023-09-26] MEDS: Mirtazapine 15 MG TABLET PO (21:54)
[2023-09-26] MEDS: Cariprazine HCl 3 MG CAPSULE PO (21:54)
[2023-09-27] MEDS: Acetaminophen 325 MG TABLET 650 MG PO ×2 (04:52→18:51)
[2023-09-27 07:37] VITALS: BP 120/67; PULSE 89; RESP 16; TEMP 36.3; O2SAT 98
[2023-09-27] MEDS: buPROPion HCl XL 150 MG TAB.ER.24H PO (08:34)
[2023-09-27] MEDS: carBAMazepine ER 100 MG TAB.ER.12H PO ×2 (08:34→22:00)
[2023-09-27] MEDS: Lidocaine 4 % Patch ADH..PATCH 1 PATCH TRANSDERMA (14:58)
--- NOTE | 2023-09-27 15:53 | HO.PSYCHPN ---
Subjective Subjective Date of Service: 09/27/23 Reason For Visit: mental health decompensation Interim History: calm, cooperative, pleasant. Back pain better with the Lidocaine patch. Mood improved. No SI. Hoping to discharge next week. Tolerating medications well. Per staff, doing well, taking meds. Attending groups. Socializing with others. No SI. Review of Systems Review of Systems Constitutional : No Weight loss, No Fever, No Chills, No Night Sweats, No Fatigue, No Malaise ENT/Mouth : No Hearing loss, No Ear Pain, No Nasal Congestion, No Sinus Pain, No Hoarseness, No sore throat, No Rhinorrhea, No Swallowing Difficulty Eyes: No Eye Pain, No Swelling, No Redness, No Foreign Body, No Discharge, No Vision Changes Cardiovascular : No Chest Pain, No SOB, No Dyspnea on Exertion, No Orthopnea, No Edema, No Palpitations Respiratory : No Cough, No Sputum, No Wheezing, No Smoke Exposure, No Dyspnea Gastrointestinal : No Nausea, No Vomiting, No Diarrhea, No Constipation, No abdominal Pain, No Hematochezia, No Melena Genitourinary : no irregular bleeding, No Dysuria, No Urinary Frequency, No Hematuria, No Urinary Incontinence, No Urgency, No Flank Pain, No Urinary Flow Changes, No Hesitancy Musculoskeletal : No joint pain, No Myalgias, No Joint Swelling Skin : No Skin Lesions, No rash Neuro : No Weakness, No Numbness, No Paresthesias, No Loss of Consciousness, No Dizziness, No Headache Psych : Complaining of feeling a bit more depressed, not sleeping well, no taking showers and not take care of herself Heme/Lymph: No Bruising, No Bleeding,No Lymphadenopathy Endocrine : No Polyuria, No Polydipsia, No Temperature Intolerance Yes all other systems are reviewed and are negative Mental Status Exam Mental Status Exam Narrative: adequate hygiene, dressed in street clothes, cooperative, no PMA/PMR. speech nml rate, amount, loudness, tone, decr latency. thoughts linear and logical. mood good. affect full range, normo-intense, non-labile. no SI/SIBI/HI/AVH expressed. Diagnostics Vital Signs (24Hr): Vital Signs - 24 hr 09/26/23 19:53 09/27/23 07:37 Temperature 98.3 F 97.4 F Pulse Rate 106 H 89 Respiratory Rate 16 16 Blood Pressure 134/79 120/67 Pulse Oximetry 96 98 Oxygen Delivery Method Room Air Room Air BMI result Body Mass Index 26.7 Labs 09/16/23 20:58 09/16/23 20:58 Medications Medications Current Medications Acetaminophen (Acetaminophen 325 Mg Tablet) 650 mg PO Q6H PRN PRN Reason: Headache/Pain Mild Scale (1-3) Last Admin: 09/27/23 04:52 Dose: 650 mg Al Hydroxide/Mg Hydroxide (Magnesium Hydrox/Alum Hydrox 30 Ml Oral.Susp) 30 ml PO Q6H PRN PRN Reason: Heartburn/Nausea Bupropion HCl (Bupropion Hcl Xl 150 Mg Tab.Er.24h) 150 mg PO DAILY CARLOS Last Admin: 09/27/23 08:34 Dose: 150 mg Carbamazepine (Carbamazepine Er 100 Mg Tab.Er.12h) 100 mg PO BID CARLOS Last Admin: 09/27/23 08:34 Dose: 100 mg Cariprazine (Cariprazine Hcl 3 Mg Capsule) 3 mg PO BEDTIME CARLOS Last Admin: 09/26/23 21:54 Dose: 3 mg Cariprazine (Cariprazine Hcl 1.5 Mg Capsule) 1.5 mg PO BEDTIME CARLOS Last Admin: 09/26/23 21:54 Dose: 1.5 mg Donepezil HCl (Donepezil Hcl 10 Mg Tablet) 10 mg PO BEDTIME CARLOS Last Admin: 09/26/23 21:54 Dose: 10 mg Lactic Acid (Ammonium Lactate 12 % Lotion 226 Gm Bottle) 1 appl TOPICAL BID PRN; Protocol PRN Reason: dry skin Lidocaine (Lidocaine 4 % Patch Adh..Patch) 1 patch TRANSDERMA DAILY [facility]; Protocol Last Admin: 09/27/23 14:58 Dose: 1 patch Magnesium Hydroxide (Milk Of Magnesia 30 Ml Oral.Susp) 30 ml PO DAILY PRN PRN Reason: Constipation Melatonin (Melatonin 3 Mg Tablet) 9 mg PO BEDTIME CARLOS Last Admin: 09/26/23 21:54 Dose: 9 mg Mirtazapine (Mirtazapine 15 Mg Tablet) 15 mg PO BEDTIME CARLOS Last Admin: 09/26/23 21:54 Dose: 15 mg Mirtazapine (Mirtazapine 7.5 Mg Tablet) 7.5 mg PO BEDTIME PRN PRN Reason: insomnia Last Admin: 09/22/23 01:36 Dose: 7.5 mg Multi-Ingred Cream/Lotion/Oil/Oint (Mineral Oil/Petrolatum,White 106 Gm Tube) 1 appl TOPICAL DAILY CARLOS; Protocol Last Admin: 09/27/23 10:16 Dose: Not Given Multivitamins/Vitamin C (Multivitamin Tablet) 1 tab PO BEDTIME CARLOS Last Admin: 09/26/23 21:54 Dose: 1 tab Allergies Allergies Allergy/AdvReac Type Severity Reaction Status Date / Time No Known Allergies Allergy Verified 09/16/23 20:07 Assessment & Plan Assessment & Plan (1) Bipolar disorder, most recent episode depressed: Status: Acute Code(s): F31.30 - Bipolar disorder, current episode depressed, mild or moderate severity, unspecified (2) Neurodegenerative cognitive impairment: Status: Acute Code(s): G31.9 - Degenerative disease of nervous system, unspecified Plan DC depakote per pt request. initiate trial of tegretol. complicated drug-drug interactions discussed with pt re tegretol and vraylar, pt opts to continue and declines to return to VPA use, believing it had been making her dizzy (during a period when she was concurrently prescribed 2 mg klonopin QHS). c/o insomnia, reporting prior medication gave her nightmares so will stay away from trazodone and give remeron a try. D/C klonopin as inappropriate for long-term use in this elderly woman. 09/18: Continue current treatment and plan 09/19: Continue current regimen and plans 09/20: mood suddenly improved over the weekend, appearing hypomanic now. continue current mgmt for the time being. T/C increasing tegretol dosing if continues to trend manic. 09/21: mood remains improved, some difficulty sleeping. trend clinical presentation and sleep. plan to check labs next week due to long period required for tegretol to reach steady state. 09/22: sleeping adequately, mood remains improved, feeling well. continue current mgmt. 09/23: continues to sleep well, in good spirits. continue current mgmt. provide with TEDs as per her request. 09/24: continues well, still sleeping only 3-4 hours. planning for labs draw next thursday and discharge . 09/25: Lidocaine patch to lower back. Consider UA and imaging if not better. Eucerin cream for inner thigh chafing. Will check labs Thursday. 09/26: continue current management and treatment plan. Reason for continued inpatient stay Substantial Risk for: inability to function and rapid decompensation Time Spent With Patient Time: Total time managing care of this patient today ____ minutes.
[2023-09-27 20:00] VITALS: BP 144/75; PULSE 99; RESP 16; TEMP 36.5; O2SAT 98
[2023-09-27] MEDS: Multivitamin TABLET 1 TAB PO (22:00)
[2023-09-27] MEDS: Mirtazapine 15 MG TABLET PO (22:00)
[2023-09-27] MEDS: Cariprazine HCl 3 MG CAPSULE PO (22:00)
[2023-09-27] MEDS: Melatonin 3 MG TABLET 9 MG PO (22:00)
[2023-09-27] MEDS: Cariprazine HCl 1.5 MG CAPSULE PO (22:00)
[2023-09-27] MEDS: Donepezil HCl 10 MG TABLET PO (22:00)
[2023-09-28 07:20] VITALS: BP 136/78; PULSE 89; RESP 12; TEMP 36.5; O2SAT 97
[2023-09-28] MEDS: Lidocaine 4 % Patch ADH..PATCH 1 PATCH TRANSDERMA (08:50)
[2023-09-28] MEDS: buPROPion HCl XL 150 MG TAB.ER.24H PO (08:52)
[2023-09-28] MEDS: carBAMazepine ER 100 MG TAB.ER.12H PO ×2 (08:52→21:55)
--- NOTE | 2023-09-28 10:47 | HO.PSYCHPN ---
Subjective Subjective Date of Service: 09/28/23 Reason For Visit: mental health decompensation Interim History: calm, cooperative, pleasant. Back pain better with the Lidocaine patch but some residual pain continues. Ordered UA. Results showed UTI. Bactrim DS ordered. Mood improved. No SI. Looking forward to discharge. Tolerating medications well. Per staff, doing well, taking meds. Attending groups. Socializing with others. No SI. Review of Systems Review of Systems Constitutional : No Weight loss, No Fever, No Chills, No Night Sweats, No Fatigue, No Malaise ENT/Mouth : No Hearing loss, No Ear Pain, No Nasal Congestion, No Sinus Pain, No Hoarseness, No sore throat, No Rhinorrhea, No Swallowing Difficulty Eyes: No Eye Pain, No Swelling, No Redness, No Foreign Body, No Discharge, No Vision Changes Cardiovascular : No Chest Pain, No SOB, No Dyspnea on Exertion, No Orthopnea, No Edema, No Palpitations Respiratory : No Cough, No Sputum, No Wheezing, No Smoke Exposure, No Dyspnea Gastrointestinal : No Nausea, No Vomiting, No Diarrhea, No Constipation, No abdominal Pain, No Hematochezia, No Melena Genitourinary : no irregular bleeding, No Dysuria, No Urinary Frequency, No Hematuria, No Urinary Incontinence, No Urgency, No Flank Pain, No Urinary Flow Changes, No Hesitancy Musculoskeletal : No joint pain, No Myalgias, No Joint Swelling Skin : No Skin Lesions, No rash Neuro : No Weakness, No Numbness, No Paresthesias, No Loss of Consciousness, No Dizziness, No Headache Psych : Complaining of feeling a bit more depressed, not sleeping well, no taking showers and not take care of herself Heme/Lymph: No Bruising, No Bleeding,No Lymphadenopathy Endocrine : No Polyuria, No Polydipsia, No Temperature Intolerance Yes all other systems are reviewed and are negative Mental Status Exam Mental Status Exam Narrative: adequate hygiene, dressed in street clothes, cooperative, no PMA/PMR. speech nml rate, amount, loudness, tone, decr latency. thoughts linear and logical. mood good. affect full range, normo-intense, non-labile. no SI/SIBI/HI/AVH expressed. Diagnostics Vital Signs (24Hr): Vital Signs - 24 hr 09/27/23 20:00 09/28/23 07:20 Temperature 97.7 F 97.7 F Pulse Rate 99 89 Respiratory Rate 16 12 Blood Pressure 144/75 H 136/78 Pulse Oximetry 98 97 Oxygen Delivery Method Room Air Room Air BMI result Body Mass Index 26.7 Labs 09/16/23 20:58 09/16/23 20:58 Medications Medications Current Medications Acetaminophen (Acetaminophen 325 Mg Tablet) 650 mg PO Q6H PRN PRN Reason: Headache/Pain Mild Scale (1-3) Last Admin: 09/27/23 18:51 Dose: 650 mg Al Hydroxide/Mg Hydroxide (Magnesium Hydrox/Alum Hydrox 30 Ml Oral.Susp) 30 ml PO Q6H PRN PRN Reason: Heartburn/Nausea Bupropion HCl (Bupropion Hcl Xl 150 Mg Tab.Er.24h) 150 mg PO DAILY [facility] Last Admin: 09/28/23 08:52 Dose: 150 mg Carbamazepine (Carbamazepine Er 100 Mg Tab.Er.12h) 100 mg PO BID ACRLOS Last Admin: 09/28/23 08:52 Dose: 100 mg Cariprazine (Cariprazine Hcl 3 Mg Capsule) 3 mg PO BEDTIME CARLOS Last Admin: 09/27/23 22:00 Dose: 3 mg Cariprazine (Cariprazine Hcl 1.5 Mg Capsule) 1.5 mg PO BEDTIME CARLOS Last Admin: 09/27/23 22:00 Dose: 1.5 mg Donepezil HCl (Donepezil Hcl 10 Mg Tablet) 10 mg PO BEDTIME CARLOS Last Admin: 09/27/23 22:00 Dose: 10 mg Lactic Acid (Ammonium Lactate 12 % Lotion 226 Gm Bottle) 1 appl TOPICAL BID PRN; Protocol PRN Reason: dry skin Lidocaine (Lidocaine 4 % Patch Adh..Patch) 1 patch TRANSDERMA DAILY CARLOS; Protocol Last Admin: 09/28/23 08:50 Dose: 1 patch Magnesium Hydroxide (Milk Of Magnesia 30 Ml Oral.Susp) 30 ml PO DAILY PRN PRN Reason: Constipation Melatonin (Melatonin 3 Mg Tablet) 9 mg PO BEDTIME CARLOS Last Admin: 09/27/23 22:00 Dose: 9 mg Mirtazapine (Mirtazapine 15 Mg Tablet) 15 mg PO BEDTIME CARLOS Last Admin: 09/27/23 22:00 Dose: 15 mg Mirtazapine (Mirtazapine 7.5 Mg Tablet) 7.5 mg PO BEDTIME PRN PRN Reason: insomnia Last Admin: 09/22/23 01:36 Dose: 7.5 mg Multi-Ingred Cream/Lotion/Oil/Oint (Mineral Oil/Petrolatum,White 106 Gm Tube) 1 appl TOPICAL DAILY CARLOS; Protocol Last Admin: 09/28/23 09:33 Dose: Not Given Multivitamins/Vitamin C (Multivitamin Tablet) 1 tab PO BEDTIME CARLOS Last Admin: 09/27/23 22:00 Dose: 1 tab Allergies Allergies Allergy/AdvReac Type Severity Reaction Status Date / Time No Known Allergies Allergy Verified 09/16/23 20:07 Assessment & Plan Assessment & Plan (1) Bipolar disorder, most recent episode depressed: Status: Acute Code(s): F31.30 - Bipolar disorder, current episode depressed, mild or moderate severity, unspecified (2) Neurodegenerative cognitive impairment: Status: Acute Code(s): G31.9 - Degenerative disease of nervous system, unspecified Plan DC depakote per pt request. initiate trial of tegretol. complicated drug-drug interactions discussed with pt re tegretol and vraylar, pt opts to continue and declines to return to VPA use, believing it had been making her dizzy (during a period when she was concurrently prescribed 2 mg klonopin QHS). c/o insomnia, reporting prior medication gave her nightmares so will stay away from trazodone and give remeron a try. D/C klonopin as inappropriate for long-term use in this elderly woman. 09/18: Continue current treatment and plan 09/19: Continue current regimen and plans 09/20: mood suddenly improved over the weekend, appearing hypomanic now. continue current mgmt for the time being. T/C increasing tegretol dosing if continues to trend manic. 09/21: mood remains improved, some difficulty sleeping. trend clinical presentation and sleep. plan to check labs next week due to long period required for tegretol to reach steady state. 09/22: sleeping adequately, mood remains improved, feeling well. continue current mgmt. 09/23: continues to sleep well, in good spirits. continue current mgmt. provide with TEDs as per her request. 09/24: continues well, still sleeping only 3-4 hours. planning for labs draw next thursday and discharge . 09/25: Lidocaine patch to lower back. Consider UA and imaging if not better. Eucerin cream for inner thigh chafing. Will check labs Thursday. 09/26: continue current management and treatment plan. 09/27: continue current management and treatment plan. Reason for continued inpatient stay Substantial Risk for: inability to function and rapid decompensation Time Spent With Patient Time: Total time managing care of this patient today ____ minutes.
[2023-09-28] MEDS: Acetaminophen 325 MG TABLET 650 MG PO (11:03)
[2023-09-28 12:57] LABS: Appearance Urine Cloudy; Color Urine Yellow; Glucose Urine UA Negative (Negative); Leukocyte Esterase Urine Large (3+) (Negative); Nitrite Urine Negative (Negative); Specific Gravity - Urine 1.025 (1.005-1.025); UMIC TRIGGER UA YES; Urine Blood Negative (Negative); Urine Ketones Trace mg/dL (Negative); Urine Protein Trace mg/dL (Neg-Trace)
[2023-09-28 13:00] LABS: Bacteria Urine 2+ (None Seen); Hyaline Casts Urine 0-2 /LPF (0-2); RBC Urine 0-2 /HPF (0-2); WBC Urine >50 /HPF (0-5)
[2023-09-28 20:17] LABS: MANUAL DIFF FLAG NO
[2023-09-28 20:18] LABS: Basophils Absolute Auto 0.1 X10*3/uL (0.0-0.2); Basophils Percent Auto 0.7 % (0-2); Eosinophils Absolute Auto 0.1 X10*3/uL (0.0-0.4); Eosinophils Percent Auto 1.2 % (0-4); Hematocrit 36.4 % (37.0-47.0); Hemoglobin 11.9 g/dl (12.0-16.0); Imm Gran Abs Auto 0.05 X10*3/uL (0.00-0.03); Imm Gran Pct Auto 0.6 % (0.0-0.4); Lymphocytes Absolute Auto 2.2 X10*3/uL (1.2-4.9); Lymphocytes Percent Auto 27.3 % (20-40); Mean Corpuscular HGB Conc 32.7 g/dl (31.0-35.0); Mean Corpuscular Hemoglobin 29.3 pg (27.0-33.0); Mean Corpuscular Volume 89.7 fL (80.0-98.0); Mean Platelet Volume 9.3 fL (9.4-12.3); Monocytes Absolute Auto 0.7 X10*3/uL (0.1-1.2); Monocytes Percent Auto 8.8 % (2-11); Neutrophils Percent Auto 61.4 % (45-73); Platelet Count 305 X10*3/uL (160-400); Red Blood Count 4.06 X10*6/uL (4.20-5.50); Red Cell Distribution Width 14.6 % (11.0-16.0); White Blood Count 8.2 X10*3/uL (4.8-10.8)
[2023-09-28 20:33] LABS: Carbamazepine Tegretol 5.2 mcg/mL (5.0-12.0)
[2023-09-28 20:49] LABS: Alanine Aminotransferase 45 U/L (0-31); Albumin Level 3.8 g/dL (3.5-5.0); Alkaline Phosphatase 89 U/L (39-117); Anion Gap 16 (12-20); Aspartate Amino Transferase 42 U/L (5-31); Bilirubin Direct < 0.2 mg/dL (0.0-0.5); Bilirubin Total 0.1 mg/dL (0.0-1.0); Blood Urea Nitrogen 28 mg/dL (9-16); Calcium 8.9 mg/dL (8.4-10.2); Carbon Dioxide 22 mmol/L (22-29); Chloride 108 mmol/L (96-108); Creatinine Clr Calc Pharmacy 54.7; Estimated Glomerular Filt Rate > 60; Glucose Random 117 mg/dL (60-115); Potassium 4.2 mmol/L (3.3-5.1); Sodium 142 mmol/L (135-145)
[2023-09-28 21:00] VITALS: BP 124/62; PULSE 103; RESP 16; TEMP 36.4; O2SAT 95
[2023-09-28] MEDS: Cariprazine HCl 1.5 MG CAPSULE PO (21:55)
[2023-09-28] MEDS: Donepezil HCl 10 MG TABLET PO (21:56)
[2023-09-28] MEDS: Mirtazapine 15 MG TABLET PO (21:56)
[2023-09-28] MEDS: Melatonin 3 MG TABLET 9 MG PO (21:56)
[2023-09-28] MEDS: Cariprazine HCl 3 MG CAPSULE PO (21:56)
[2023-09-28] MEDS: Multivitamin TABLET 1 TAB PO (21:56)
[2023-09-28] MEDS: Sulfamethox/Trimeth 800/160 TABLET 1 TAB PO (22:06)
--- NOTE | 2023-09-28 22:06 | PC.NURSE ---
abx delivered by pharmacy now and administered
[2023-09-29] MEDS: Acetaminophen 325 MG TABLET 650 MG PO (00:41)
[2023-09-29] MEDS: Mirtazapine 7.5 MG TABLET PO ×2 (00:41→23:29)
[2023-09-29 07:05] VITALS: BP 137/69; PULSE 87; RESP 22; TEMP 36.6; O2SAT 99
[2023-09-29] MEDS: Sulfamethox/Trimeth 800/160 TABLET 1 TAB PO ×2 (08:29→21:33)
[2023-09-29] MEDS: buPROPion HCl XL 150 MG TAB.ER.24H PO (08:29)
[2023-09-29] MEDS: Lidocaine 4 % Patch ADH..PATCH 1 PATCH TRANSDERMA (08:29)
[2023-09-29] MEDS: carBAMazepine ER 100 MG TAB.ER.12H PO ×2 (08:29→21:33)
[2023-09-29 09:24] VITALS: BP 137/69; PULSE 87; O2SAT 99
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
[2023-09-29 20:00] VITALS: BP 145/66; PULSE 98; RESP 16; TEMP 36.8; O2SAT 97
[2023-09-29] MEDS: Melatonin 3 MG TABLET 9 MG PO (21:33)
[2023-09-29] MEDS: Donepezil HCl 10 MG TABLET PO (21:34)
[2023-09-29] MEDS: Multivitamin TABLET 1 TAB PO (21:34)
[2023-09-29] MEDS: Cariprazine HCl 3 MG CAPSULE PO (21:34)
[2023-09-29] MEDS: Cariprazine HCl 1.5 MG CAPSULE PO (21:35)
[2023-09-29] MEDS: Mirtazapine 15 MG TABLET PO (21:36)
[2023-09-30] MEDS: Acetaminophen 325 MG TABLET 650 MG PO (01:55)
[2023-09-30 07:10] VITALS: BP 142/74; PULSE 87; RESP 22; TEMP 36.5; O2SAT 99
[2023-09-30] MEDS: carBAMazepine ER 100 MG TAB.ER.12H PO (08:03)
[2023-09-30] MEDS: Lidocaine 4 % Patch ADH..PATCH 1 PATCH TRANSDERMA (08:03)
[2023-09-30] MEDS: Sulfamethox/Trimeth 800/160 TABLET 1 TAB PO (08:03)
[2023-09-30] MEDS: buPROPion HCl XL 150 MG TAB.ER.24H PO (08:03)
== END 2023-09-30 10:30 | disposition home or self-care (01) | DRG 885 ==
LOC: HO.ED 22:02 → HO.PADLT16 09-17 12:37
PROVIDERS: Psychiatry & Neurology Psychiatry; Registered Nurse Emergency; Admitting Provider Psychiatry & Neurology Psychiatry; Emergency Provider Emergency Medicine; PCP Internal Medicine; Visit Provider Psychiatry & Neurology Psychiatry
DX: F31.30 Bipolar disorder, current episode depressed, mild or moderate severity, unspecified (principal); G31.9 Degenerative disease of nervous system, unspecified; Z20.822 Contact with and (suspected) exposure to COVID-19; Z91.148 Patient's other noncompliance with medication regimen for other reason; Z87.891 Personal history of nicotine dependence; Z79.899 Other long term (current) drug therapy
CPT/HCPCS: 36415; 80048; 80053; 80076; 80143; 80156; 80164; 80179; 80307; 81001; 83735; 85025; 87086; 87635; 93005; 97161; 99285; S9485

== ENCOUNTER → 2023-09-17 09:20 | Outpatient (BNV) | payer MEDICARE, SELFPAY | PROVIDERS: Admitting Provider Psychiatry & Neurology Psychiatry; Emergency Provider Emergency Medicine; PCP Internal Medicine; Visit Provider Internal Medicine Cardiovascular Disease | DX: Z51.81 Encounter for therapeutic drug level monitoring (principal) | CPT/HCPCS: 93010 ==

== ENCOUNTER → 2023-09-17 12:28 | Outpatient (BNV) | payer MEDICARE, SELFPAY | PROVIDERS: Admitting Provider Psychiatry & Neurology Psychiatry; Emergency Provider Emergency Medicine; PCP Internal Medicine; Visit Provider Psychiatry & Neurology Psychiatry | DX: F31.32 Bipolar disorder, current episode depressed, moderate (principal); G31.9 Degenerative disease of nervous system, unspecified | CPT/HCPCS: 90792; 99231; 99232; 99239 ==

== ENCOUNTER 2023-10-01 19:42 | Inpatient (IN) | payer MEDICARE, SELFPAY ==
[2023-10-01 20:09] VITALS: BP 140/86; PULSE 102; RESP 16; TEMP 36.2; O2SAT 95; BMI 27.4
--- NOTE | 2023-10-01 20:09 | ED_ITS ---
HPI - General Adult General Chief complaint: Behavioral Concerns Stated complaint: didnt take her meds states feel different??? Time Seen by Provider: 10/02/23 00:15 Source: patient Mode of arrival: ambulatory Limitations: no limitations History of Present Illness ED Provider: Dr. Naomi Daniels HPI narrative: Patient comes to the emergency room accompanied by family. According to the patient, her family is concerned because patient was recently discharged from the hospital and is not taking her medications. Patient states that she forgot to take her meds. Patient denies SI or HI. According to the patient, the reason that she is here is because her family called crisis because she was not taking her medications as prescribed,, seems that [facility] recommended to bring the patient to the emergency room, so here she is. Related Data Previous Rx's ?Medication ?Instructions ?Recorded cariprazine 3 mg capsule (Vraylar) 6 mg (2 x 3 mg) PO BEDTIME 30 days 07/14/23 #60 caps ammonium lactate 12 % lotion 1 appl topical BID PRN dry skin 30 09/29/23 days #1 g bupropion HCl 150 mg 24 hr tablet, 150 mg PO DAILY 30 days #30 tabs 09/29/23 extended release carbamazepine 100 mg 100 mg PO BID 30 days #60 tabs 09/29/23 tablet,extended release,12 hr (Tegretol XR) donepezil 10 mg tablet 10 mg PO BEDTIME 30 days #30 tabs 09/29/23 melatonin 3 mg tablet 9 mg (3 x 3 mg) PO BEDTIME 30 days 09/29/23 #90 tabs mirtazapine 15 mg tablet 15 mg PO BEDTIME 30 days #30 tabs 09/29/23 multivitamin (Daily-Vishnu tablet) 1 tab PO BEDTIME 30 days #30 tabs 09/29/23 sulfamethoxazole 800 1 tab PO BID 7 days #14 tabs 09/29/23 mg-trimethoprim 160 mg tablet Allergies Allergy/AdvReac Type Severity Reaction Status Date / Time No Known Allergies Allergy Verified 10/01/23 20:13 Review of Systems 2 Review of Systems: Constitutional : No Weight loss, No Fever, No Chills, No Night Sweats, No Fatigue, No Malaise ENT/Mouth : No Hearing loss, No Ear Pain, No Nasal Congestion, No Sinus Pain, No Hoarseness, No sore throat, No Rhinorrhea, No Swallowing Difficulty Eyes: No Eye Pain, No Swelling, No Redness, No Foreign Body, No Discharge, No Vision Changes Cardiovascular : No Chest Pain, No SOB, No Dyspnea on Exertion, No Orthopnea, No Edema, No Palpitations Respiratory : No Cough, No Sputum, No Wheezing, No Smoke Exposure, No Dyspnea Gastrointestinal : No Nausea, No Vomiting, No Diarrhea, No Constipation, No abdominal Pain, No Hematochezia, No Melena Genitourinary : no irregular bleeding, No Dysuria, No Urinary Frequency, No Hematuria, No Urinary Incontinence, No Urgency, No Flank Pain, No Urinary Flow Changes, No Hesitancy Musculoskeletal : No joint pain, No Myalgias, No Joint Swelling Skin : No Skin Lesions, No rash Neuro : No Weakness, No Numbness, No Paresthesias, No Loss of Consciousness, No Dizziness, No Headache Psych : No Anxiety/Panic, No Depression, No SI/HI/AH/VH, reports not taking her medications as prescribed, recommended by crisis to come to the ED per patient Heme/Lymph: No Bruising, No Bleeding,No Lymphadenopathy Endocrine : No Polyuria, No Polydipsia, No Temperature Intolerance [facility] Past Medical History Medical History RADHA (acute kidney injury) Fracture of right ulnar styloid Neurodegenerative cognitive impairment Bipolar disorder, most recent episode depressed Left ankle sprain Low back pain Acute bronchitis Left sided sciatica Depression Sore throat (viral) Surgical History Hx of colonoscopy No significant past surgical history Social History Social History Household Members: Other Household Members Other:: Housing: House Do you presently have visiting nurse or other home services: No Alcohol intake: former Comment: Independent Patient Tobacco Use Status: Former Tobacco user e-Cigarette/Vaping Use: Never Used Advance Directives: No Advance Directives Information Provided: No Do you have a plan to hurt others: No Plan service: No Sexual orientation: Straight/Heterosexual Physical Exam ED Vital Signs: Vital Signs - 24 hr 10/01/23 20:09 Temperature 97.1 F Pulse Rate 102 H Respiratory Rate 16 Blood Pressure 140/86 H Pulse Oximetry 95 Oxygen Delivery Method Room Air BMI result Body Mass Index 27.4 Const Other: Appearance: Alert. Oriented X3. No acute distress. Eyes: Pupils equal, round and reactive to light. ENT: Pharynx normal. Neck: Normal inspection. Neck supple. No lymph nodes noted. No crepitus CVS: Normal heart rate and rhythm. Pulses normal. Normal S1 and S2 Respiratory: No respiratory distress. Breath sounds normal. No Wheezing. No rales Abdomen: Soft and nontender. No rigidity. No distention. Skin: Skin warm and dry. Normal skin color. Normal skin turgor. Extremities: No lower extremity edema. No Lacerations. No Rash Neuro: Oriented X 3. No motor deficit. No sensory deficit. Moving all extremities. No slurred speech. CN 2 through 12 grossly intact Psych: calm, cooperative, normal affect Course Course Course Narrative: This is an RME done by VANESSA Childers: Additional HPI, ROS, PE not included below will be deferred to primary provider. 67 yo female pmh of bipolar depression, neurodegenerative cognitive impairment, and RADHA presents today stating she did not take her medications and having feelings of depression. No thoughts of SI. Denies visual and auditory hallucinations. States she is feeling down because she has not been taking her mediations. 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 today but states pt did not go. Was here from 09/17-09/28. Flat affect. Appearance: Alert.?Flat affect. Oriented X3.? No acute cardiopulmonary distress distress.? Head: Normocephalic, atraumatic, no step-offs or deformities Neck: Normal inspection.? Neck supple.? CVS: Pulses normal.? Respiratory: No respiratory distress.? Abdomen: Soft and nontender.? Skin: ? Normal skin color. Neuro: Oriented X 3.? No motor deficit.? No sensory deficit. Medical Decision Making Medical Decision Making [facility] Narrative: -my interpretation of labs: Normal hematology and chemistry, urinalysis shows chronic leukocyte esterase and white blood cell count. Reviewing patient's previous urinalysis and microbiology reports, report shows mixed bacterial kaitlin, at this time antibiotics not indicated. Patient has no UTI symptoms. -patient will like to talk to the care team. Patient is not SI no HI, patient is not on a Section 12 -physician observation started at 02:14 Differential Diagnosis Differential Diagnoses: The differential diagnosis associated with the presentation includes (Anxiety, depression, bipolar disorder) Lab Data MDM Lab Attestation statement: I reviewed the patient's lab results. 10/01/23 20:54 10/01/23 20:54 Labs: Lab Results 10/01/23 10/01/23 10/01/23 Range/Units 20:33 20:54 20:55 WBC 9.3 (4.8-10.8) X10*3/uL RBC 4.72 (4.20-5.50) X10*6/uL Hgb 13.7 (12.0-16.0) g/dl Hct 42.2 (37.0-47.0) % MCV 89.4 (80.0-98.0) fL MCH 29.0 (27.0-33.0) pg MCHC 32.5 (31.0-35.0) g/dl RDW 14.6 (11.0-16.0) % Plt Count 381 (160-400) X10*3/uL MPV 9.3 L (9.4-12.3) fL Immature Gran % (Auto) 0.6 H (0.0-0.4) % Neut % (Auto) 67.8 (45-73) % Lymph % (Auto) 22.6 (20-40) % [place] % (Auto) 7.5 (2-11) % Eos % (Auto) 1.0 (0-4) % Baso % (Auto) 0.5 (0-2) % Lymph # (Auto) 2.1 (1.2-4.9) X10*3/uL [place] # (Auto) 0.7 (0.1-1.2) X10*3/uL Eos # (Auto) 0.1 (0.0-0.4) X10*3/uL Baso # (Auto) 0.1 (0.0-0.2) X10*3/uL Abs Immat Gran (auto) 0.06 H (0.00-0.03) X10*3/uL Absolute Neuts (auto) 6.3 (2.0-8.3) x10*3/uL Absolute Nucleated RBC 0.000 (0.0-0.012) X10*3/uL Nucleated RBC % (auto) 0.0 (0.0-0.2) /100WBC Sodium 140 (135-145) mmol/L Potassium 4.5 (3.3-5.1) mmol/L Chloride 105 (96-108) mmol/L Carbon Dioxide 22 (22-29) mmol/L Anion Gap 18 (12-20) BUN 20 H (9-16) mg/dL Creatinine 1.08 (0.5-1.4) mg/dL Estim Creat Clear Calc 44.4 Estimated GFR 50 Random Glucose 101 (60-115) mg/dL Calcium 9.9 D (8.4-10.2) mg/dL Magnesium 2.0 (1.6-2.6) mg/dL Total Bilirubin 0.3 (0.0-1.0) mg/dL AST 43 H (5-31) U/L ALT 50 H (0-31) U/L Alkaline Phosphatase 108 (39-117) U/L Total Protein 7.9 (6.5-8.0) g/dL Albumin 4.3 (3.5-5.0) g/dL Urine Color Dark Yellow Urine Appearance Cloudy Urine pH 5.0 (5.0-9.0) Ur Specific [place] 1.025 (1.005-1.025) Urine Protein Negative (Neg-Trace) mg/dL Urine Glucose (UA) Negative (Negative) mg/dL Urine Ketones Negative (Negative) mg/dL Urine Blood Negative (Negative) Urine Nitrite Negative (Negative) Ur Leukocyte Esterase Moderate (2+) H (Negative) Urine RBC 0-2 (0-2) /HPF Urine WBC 21-50 H (0-5) /HPF Ur Squamous Epith Cells 6-10 (0-2) /HPF Urine Bacteria 1+ (None Seen) Hyaline Casts 6-10 (0-2) /LPF Salicylates < 5.0 L (15-30) mg/dL Urine Opiates Screen Not Detected (Not Detect) Ur Buprenorphine Scrn Not Detected (Not Detect) ng/mL Ur Oxycodone Screen Not Detected (Not Detect) ng/mL Urine Methadone Screen Not Detected (Not Detect) ng/mL Urine Fentanyl Screen Not Detected (Not Detect) Acetaminophen < 3 (<30) mcg/mL Ur Barbiturates Screen Not Detected (Not Detect) Valproic Acid < 12.5 L (50.0-100.0) mcg/mL Ur Phencyclidine Scrn Not Detected (Not Detect) Ur Amphetamines Screen Not Detected (Not Detect) U Benzodiazepines Scrn Not Detected (Not Detect) Urine Cocaine Screen Not Detected (Not Detect) U Marijuana (THC) Screen Not Detected (Not Detect) Ethyl Alcohol < 10 mg/dL Discharge Plan Discharge Clinical Impression: Bipolar disorder, most recent episode depressed Patient Disposition: Still a Patient Prescriptions: No Action Vraylar 3 mg Capsule 6 mg PO BEDTIME 30 Days Qty: 60 0RF carbamazepine [Tegretol XR] 100 mg Tablet Extended Release 12 Hr 100 mg PO BID 30 Days Qty: 60 0RF sulfamethoxazole-trimethoprim 800-160 mg Tablet 1 tab PO BID 7 Days Qty: 14 0RF mirtazapine 15 mg Tablet 15 mg PO BEDTIME 30 Days Qty: 30 0RF multivitamin [Daily-Vishnu] Tablet 1 tab PO BEDTIME 30 Days Qty: 30 0RF ammonium lactate 12 % Lotion 1 appl topical BID PRN (Reason: dry skin) 30 Days Qty: 1 0RF Protocol: Apply to: Apply to: affected area donepezil 10 mg Tablet 10 mg PO BEDTIME 30 Days Qty: 30 0RF melatonin 3 mg Tablet 9 mg PO BEDTIME 30 Days Qty: 90 0RF bupropion HCl 150 mg Tablet Extended Release 24 Hr 150 mg PO DAILY 30 Days Qty: 30 0RF Print Language: Swedish
[2023-10-01 20:39] LABS: Appearance Urine Cloudy; Color Urine Dark Yellow; Glucose Urine UA Negative (Negative); Leukocyte Esterase Urine Moderate (2+) (Negative); Nitrite Urine Negative (Negative); Specific Gravity - Urine 1.025 (1.005-1.025); UMIC TRIGGER UACC YES; Urine Blood Negative (Negative); Urine Ketones Negative (Negative); Urine Protein Negative (Neg-Trace)
[2023-10-01 20:47] LABS: Bacteria Urine 1+ (None Seen); RBC Urine 0-2 /HPF (0-2); UACC Culture Trigger YES; WBC Urine 21-50 /HPF (0-5)
[2023-10-01 20:50] LABS: Amphetamine Screen Urine Not Detected (Not Detect); Barbiturates, Urine Not Detected (Not Detect); Benzodiazepines Screen Urine Not Detected (Not Detect); Buprenorphine Scr Not Detected (Not Detect); Cannabinoid Screen Urine Not Detected (Not Detect); Cocaine Screen Urine Not Detected (Not Detect); Fentanyl, urine Not Detected (Not Detect); Methadone Screen, Urine Not Detected (Not Detect); Opiate Screen Urine Not Detected (Not Detect); Oxycodone Screen Urine Not Detected (Not Detect); Phencyclidine Screen Urine Not Detected (Not Detect)
[2023-10-01 20:59] LABS: MANUAL DIFF FLAG NO
[2023-10-01 21:14] LABS: Basophils Absolute Auto 0.1 X10*3/uL (0.0-0.2); Basophils Percent Auto 0.5 % (0-2); Eosinophils Absolute Auto 0.1 X10*3/uL (0.0-0.4); Hematocrit 42.2 % (37.0-47.0); Hemoglobin 13.7 g/dl (12.0-16.0); Imm Gran Abs Auto 0.06 X10*3/uL (0.00-0.03); Imm Gran Pct Auto 0.6 % (0.0-0.4); Lymphocytes Absolute Auto 2.1 X10*3/uL (1.2-4.9); Lymphocytes Percent Auto 22.6 % (20-40); Mean Corpuscular HGB Conc 32.5 g/dl (31.0-35.0); Mean Corpuscular Volume 89.4 fL (80.0-98.0); Mean Platelet Volume 9.3 fL (9.4-12.3); Monocytes Absolute Auto 0.7 X10*3/uL (0.1-1.2); Monocytes Percent Auto 7.5 % (2-11); Neutrophils Absolute Auto 6.3 x10*3/uL (2.0-8.3); Neutrophils Percent Auto 67.8 % (45-73); Platelet Count 381 X10*3/uL (160-400); Red Blood Count 4.72 X10*6/uL (4.20-5.50); Red Cell Distribution Width 14.6 % (11.0-16.0); White Blood Count 9.3 X10*3/uL (4.8-10.8)
[2023-10-01 21:19] LABS: Valproate < 12.5 mcg/mL (50.0-100.0)
[2023-10-01 21:21] LABS: Acetaminophen LAB < 3 mcg/mL (<30); Alanine Aminotransferase 50 U/L (0-31); Albumin Level 4.3 g/dL (3.5-5.0); Alkaline Phosphatase 108 U/L (39-117); Anion Gap 18 (12-20); Aspartate Amino Transferase 43 U/L (5-31); Bilirubin Total 0.3 mg/dL (0.0-1.0); Blood Urea Nitrogen 20 mg/dL (9-16); Calcium 9.9 mg/dL (8.4-10.2); Carbon Dioxide 22 mmol/L (22-29); Chloride 105 mmol/L (96-108); Creatinine Clr Calc Pharmacy 44.4; Estimated Glomerular Filt Rate 50; Ethanol < 10 mg/dL; Glucose Random 101 mg/dL (60-115); Potassium 4.5 mmol/L (3.3-5.1); Salicylate < 5.0 mg/dL (15-30); Sodium 140 mmol/L (135-145); Total Protein 7.9 g/dL (6.5-8.0)
--- NOTE | 2023-10-02 | ECG_ITS ---
Test Reason : QT INTERVAL Blood Pressure : / mmHG Vent. Rate : 079 BPM Atrial Rate : 079 BPM P-R Int : 154 ms QRS Dur : 096 ms QT Int : 404 ms P-R-T Axes : 063 -22 024 degrees QTc Int : 463 ms Normal sinus rhythm Possible Left atrial enlargement Incomplete right bundle branch block Borderline ECG When compared with ECG of 17-SEP-2023 09:34, No significant change was found Referred By: Generic ED Physician Electronically Signed By:MARLENE DONALDSON
[2023-10-02 05:00] VITALS: BP 134/75; PULSE 99; RESP 16; TEMP 36.4; O2SAT 96
--- NOTE | 2023-10-02 07:28 | PC.NURSE ---
Assumed care of patient at 0645. Patient is observed resting quietly in their bed. No signs of distress observed. Breathing is even and unlabored. Will continue plan of care.
--- NOTE | 2023-10-02 08:34 | PHA.MEDREC ---
Pharmacy Consult ? Medication Reconciliation Pharmacy has completed the medication reconciliation. Reviewed med rec done by nursing
[2023-10-02] MEDS: Sulfamethox/Trimeth 800/160 TABLET 1 TAB PO ×2 (09:08→21:25)
[2023-10-02] MEDS: buPROPion HCl XL 150 MG TAB.ER.24H PO (09:08)
[2023-10-02 09:21] VITALS: BP 120/73; PULSE 81; RESP 16; TEMP 36.9; O2SAT 96
[2023-10-02 11:17] VITALS: BP 142/74; PULSE 85; RESP 18; TEMP 36.4; O2SAT 97
[2023-10-02 11:18] VITALS: BMI 27.7
[2023-10-02] MEDS: carBAMazepine ER 100 MG TAB.ER.12H PO ×2 (12:04→21:24)
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
--- NOTE | 2023-10-02 15:19 | PC.ADMIT ---
Marjorie arrived to the unit at 1045 on a conditional voluntary, sharps check done by tech writer and female MHC. Upon she was calm and pleasant, she reports she got herself back into the hospital Because I never went to get my medications from the pharmacy, she reports that when she was discharged she went to her cousins house stood until late and pharmacy was closed by the time she got out. She reports that when she arrived to her house it was Overwhelming, there is a mess everywhere, it's too much. She reports she was not feeling good I felt stressful and depressed. She reports endorsing 1/10 anxiety and depression, when asked if she had any thoughts of wanting to hurt self stated No, verbalized to look for staff if thoughts occur. Marjorie is diagnosed with Bipolar II Disorder, she is currently on 15 minute checks.
[2023-10-02] MEDS: Acetaminophen 325 MG TABLET 650 MG PO (18:43)
[2023-10-02 20:00] VITALS: BP 123/78; PULSE 105; RESP 18; TEMP 36.6; O2SAT 98
[2023-10-02] MEDS: Cariprazine HCl 3 MG CAPSULE 6 MG PO (21:24)
[2023-10-02] MEDS: Donepezil HCl 10 MG TABLET PO (21:24)
[2023-10-02] MEDS: Mirtazapine 15 MG TABLET PO (21:25)
[2023-10-02] MEDS: Multivitamin TABLET 1 TAB PO (21:25)
[2023-10-02] MEDS: Melatonin 3 MG TABLET 9 MG PO (21:25)
[2023-10-03] MEDS: traZODone HCL 50 MG TABLET PO ×2 (01:07→20:31)
[2023-10-03 08:00] VITALS: BP 119/67; PULSE 85; RESP 18; TEMP 36.4; O2SAT 98
[2023-10-03] MEDS: buPROPion HCl XL 150 MG TAB.ER.24H PO (08:41)
[2023-10-03] MEDS: carBAMazepine ER 100 MG TAB.ER.12H PO ×2 (08:41→20:30)
[2023-10-03] MEDS: Sulfamethox/Trimeth 800/160 TABLET 1 TAB PO ×2 (08:41→20:30)
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
[2023-10-03 20:00] VITALS: BP 142/76; PULSE 90; RESP 18; TEMP 37.2; O2SAT 97
[2023-10-03] MEDS: Mirtazapine 15 MG TABLET PO (20:30)
[2023-10-03] MEDS: Melatonin 3 MG TABLET 9 MG PO (20:30)
[2023-10-03] MEDS: Donepezil HCl 10 MG TABLET PO (20:30)
[2023-10-03] MEDS: Cariprazine HCl 3 MG CAPSULE 6 MG PO (20:30)
[2023-10-03] MEDS: Multivitamin TABLET 1 TAB PO (20:30)
[2023-10-04 08:00] VITALS: BP 126/60; PULSE 81; RESP 16; TEMP 36.4; O2SAT 98
[2023-10-04] MEDS: Sulfamethox/Trimeth 800/160 TABLET 1 TAB PO ×2 (08:35→20:55)
[2023-10-04] MEDS: buPROPion HCl XL 150 MG TAB.ER.24H PO (08:35)
[2023-10-04] MEDS: carBAMazepine ER 100 MG TAB.ER.12H PO ×2 (08:35→20:55)
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
[2023-10-04 20:00] VITALS: BP 160/71; PULSE 88; RESP 16; TEMP 36.4; O2SAT 98
[2023-10-04] MEDS: Multivitamin TABLET 1 TAB PO (20:55)
[2023-10-04] MEDS: traZODone HCL 50 MG TABLET PO (20:55)
[2023-10-04] MEDS: Melatonin 3 MG TABLET 9 MG PO (20:56)
[2023-10-04] MEDS: Mirtazapine 15 MG TABLET PO (20:56)
[2023-10-04] MEDS: Donepezil HCl 10 MG TABLET PO (20:56)
[2023-10-04] MEDS: Cariprazine HCl 3 MG CAPSULE 6 MG PO (20:56)
[2023-10-05 08:00] VITALS: BP 119/65; PULSE 76; RESP 18; TEMP 36.4; O2SAT 100
[2023-10-05] MEDS: Sulfamethox/Trimeth 800/160 TABLET 1 TAB PO ×2 (08:12→21:21)
[2023-10-05] MEDS: carBAMazepine ER 100 MG TAB.ER.12H PO ×2 (08:12→21:18)
[2023-10-05] MEDS: buPROPion HCl XL 150 MG TAB.ER.24H PO (08:12)
[2023-10-05 20:00] VITALS: BP 112/62; PULSE 99; TEMP 36.3; O2SAT 98
[2023-10-05] MEDS: Melatonin 3 MG TABLET 9 MG PO (21:17)
[2023-10-05] MEDS: traZODone HCL 50 MG TABLET PO (21:18)
[2023-10-05] MEDS: Donepezil HCl 10 MG TABLET PO (21:19)
[2023-10-05] MEDS: Cariprazine HCl 3 MG CAPSULE 6 MG PO (21:19)
[2023-10-05] MEDS: Multivitamin TABLET 1 TAB PO (21:20)
[2023-10-05] MEDS: Mirtazapine 15 MG TABLET PO (21:21)
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
[2023-10-05] MEDS: Acetaminophen 325 MG TABLET 650 MG PO (23:49)
[2023-10-06 08:00] VITALS: BP 127/62; PULSE 81; RESP 18; TEMP 36.2; O2SAT 100
[2023-10-06] MEDS: carBAMazepine ER 100 MG TAB.ER.12H PO ×2 (08:56→21:59)
[2023-10-06] MEDS: Sulfamethox/Trimeth 800/160 TABLET 1 TAB PO ×2 (08:56→21:58)
[2023-10-06] MEDS: buPROPion HCl XL 150 MG TAB.ER.24H PO (08:56)
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
[2023-10-06 20:00] VITALS: BP 183/88; PULSE 80; RESP 16; TEMP 36.6; O2SAT 96
[2023-10-06] MEDS: Melatonin 3 MG TABLET 9 MG PO (21:58)
[2023-10-06] MEDS: Mirtazapine 15 MG TABLET PO (21:58)
[2023-10-06] MEDS: Multivitamin TABLET 1 TAB PO (21:59)
[2023-10-06] MEDS: Cariprazine HCl 3 MG CAPSULE 6 MG PO (21:59)
[2023-10-06] MEDS: Donepezil HCl 10 MG TABLET PO (21:59)
[2023-10-06 23:44] VITALS: BP 131/73; PULSE 83
[2023-10-07 08:41] VITALS: BP 140/65; PULSE 80; RESP 16; TEMP 36.5; O2SAT 97
[2023-10-07] MEDS: Sulfamethox/Trimeth 800/160 TABLET 1 TAB PO ×2 (08:48→20:41)
[2023-10-07] MEDS: carBAMazepine ER 100 MG TAB.ER.12H PO ×2 (08:48→20:40)
[2023-10-07] MEDS: buPROPion HCl XL 150 MG TAB.ER.24H PO (08:48)
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
[2023-10-07 20:00] VITALS: BP 125/78; PULSE 95; RESP 18; TEMP 36.4; O2SAT 97
[2023-10-07] MEDS: Cariprazine HCl 3 MG CAPSULE 6 MG PO (20:40)
[2023-10-07] MEDS: Multivitamin TABLET 1 TAB PO (20:40)
[2023-10-07] MEDS: Melatonin 3 MG TABLET 9 MG PO (20:40)
[2023-10-07] MEDS: Mirtazapine 15 MG TABLET PO (20:40)
[2023-10-07] MEDS: Donepezil HCl 10 MG TABLET PO (20:40)
[2023-10-07] MEDS: traZODone HCL 50 MG TABLET PO (20:41)
[2023-10-08 07:00] VITALS: BMI 28.5
[2023-10-08 08:28] VITALS: BP 125/61; PULSE 104; RESP 16; TEMP 36.4; O2SAT 97
[2023-10-08] MEDS: carBAMazepine ER 100 MG TAB.ER.12H PO ×2 (09:07→21:06)
[2023-10-08] MEDS: buPROPion HCl XL 150 MG TAB.ER.24H PO (09:07)
[2023-10-08] MEDS: Sulfamethox/Trimeth 800/160 TABLET 1 TAB PO ×2 (09:07→21:06)
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
[2023-10-08 20:00] VITALS: BP 139/66; PULSE 88; RESP 18; TEMP 36.4; O2SAT 99
[2023-10-08] MEDS: Melatonin 3 MG TABLET 9 MG PO (21:05)
[2023-10-08] MEDS: traZODone HCL 50 MG TABLET PO (21:05)
[2023-10-08] MEDS: Cariprazine HCl 3 MG CAPSULE 6 MG PO (21:06)
[2023-10-08] MEDS: Mirtazapine 15 MG TABLET PO (21:06)
[2023-10-08] MEDS: Donepezil HCl 10 MG TABLET PO (21:06)
[2023-10-08] MEDS: Multivitamin TABLET 1 TAB PO (21:06)
[2023-10-09] MEDS: traZODone HCL 50 MG TABLET PO (00:19)
[2023-10-09] MEDS: carBAMazepine ER 100 MG TAB.ER.12H PO (07:59)
[2023-10-09] MEDS: buPROPion HCl XL 150 MG TAB.ER.24H PO (07:59)
[2023-10-09 08:00] VITALS: BP 140/66; PULSE 84; RESP 18; TEMP 36.4; O2SAT 97
== END 2023-10-09 11:25 | disposition home or self-care (01) | DRG 885 ==
LOC: HO.ED 10-02 02:15 → HO.PM5 10-02 08:49
PROVIDERS: Physician Assistant; Admitting Provider Psychiatry & Neurology Psychiatry; Emergency Provider Emergency Medicine; PCP Internal Medicine; Visit Provider Psychiatry & Neurology Psychiatry
DX: F31.30 Bipolar disorder, current episode depressed, mild or moderate severity, unspecified (principal); F43.10 Post-traumatic stress disorder, unspecified; G31.9 Degenerative disease of nervous system, unspecified; Z79.899 Other long term (current) drug therapy
CPT/HCPCS: 36415; 80053; 80143; 80164; 80179; 80307; 81001; 83735; 85025; 87086; 93005; 99285; S9485

== ENCOUNTER → 2023-10-02 07:31 | Outpatient (BNV) | payer MEDICARE, SELFPAY | PROVIDERS: Admitting Provider Psychiatry & Neurology Psychiatry; Emergency Provider Emergency Medicine; PCP Internal Medicine; Visit Provider Internal Medicine | DX: R94.31 Abnormal electrocardiogram [ECG] [EKG] (principal) | CPT/HCPCS: 93010 ==

== ENCOUNTER → 2023-10-02 08:43 | Outpatient (BNV) | payer MEDICARE, SELFPAY | PROVIDERS: Admitting Provider Psychiatry & Neurology Psychiatry; Emergency Provider Emergency Medicine; PCP Internal Medicine; Visit Provider Psychiatry & Neurology Psychiatry | DX: F31.4 Bipolar disorder, current episode depressed, severe, without psychotic features (principal); G31.9 Degenerative disease of nervous system, unspecified | CPT/HCPCS: 90792; 99231; 99238 ==

== ENCOUNTER 2024-01-15 01:06 | Emergency (ER) | payer MEDICARE, SELFPAY ==
--- NOTE | ~2024-01-15 | XR_ITS ---
EXAMINATION: XR KNEE, LEFT CLINICAL INDICATION: Fall with pain COMPARISON: None TECHNIQUE: 2 views of the left knee. FINDINGS: Osseous alignment is anatomic. Slight tricompartmental joint space narrowing is noted. No acute fracture is seen. No significant effusion. Small chronic appearing calcification in the suprapatellar region. A couple tiny calcifications anterior to the proximal tibia are suggestive of phleboliths. XR/XR knee LT 2V IMPRESSION: No acute findings identified. Mild chronic appearing changes as noted above. Electronically signed by: Damir Egan MD 01/15/2024 02:18 AM EDT
[2024-01-15 01:08] VITALS: BP 145/90; PULSE 102; RESP 18; TEMP 37.1; O2SAT 100; BMI 25.8
[2024-01-15 01:40] LABS: MANUAL DIFF FLAG NO
[2024-01-15 01:41] LABS: Basophils Percent Auto 0.4 % (0-2); Eosinophils Absolute Auto 0.1 X10*3/uL (0.0-0.4); Eosinophils Percent Auto 1.4 % (0-4); Hematocrit 38.3 % (37.0-47.0); Hemoglobin 12.4 g/dl (12.0-16.0); Imm Gran Abs Auto 0.02 X10*3/uL (0.00-0.03); Imm Gran Pct Auto 0.3 % (0.0-0.4); Lymphocytes Absolute Auto 2.3 X10*3/uL (1.2-4.9); Lymphocytes Percent Auto 32.1 % (20-40); Mean Corpuscular HGB Conc 32.4 g/dl (31.0-35.0); Mean Corpuscular Hemoglobin 29.6 pg (27.0-33.0); Mean Corpuscular Volume 91.4 fL (80.0-98.0); Mean Platelet Volume 9.3 fL (9.4-12.3); Monocytes Absolute Auto 0.6 X10*3/uL (0.1-1.2); Monocytes Percent Auto 8.8 % (2-11); Neutrophils Absolute Auto 4.1 x10*3/uL (2.0-8.3); Platelet Count 316 X10*3/uL (160-400); Red Blood Count 4.19 X10*6/uL (4.20-5.50); Red Cell Distribution Width 13.5 % (11.0-16.0); White Blood Count 7.1 X10*3/uL (4.8-10.8)
[2024-01-15 01:42] LABS: Appearance Urine Cloudy; Color Urine Yellow; Glucose Urine UA Negative (Negative); Leukocyte Esterase Urine Large (3+) (Negative); Nitrite Urine Negative (Negative); Specific Gravity - Urine 1.015 (1.005-1.025); UMIC TRIGGER UACC YES; Urine Blood Negative (Negative); Urine Ketones Negative (Negative); Urine Protein Negative (Neg-Trace)
[2024-01-15 01:46] LABS: Bacteria Urine 1+ (None Seen); Hyaline Casts Urine 0-2 /LPF (0-2); RBC Urine 0-2 /HPF (0-2); UACC Culture Trigger YES; WBC Urine 21-50 /HPF (0-5)
[2024-01-15 01:59] LABS: Alanine Aminotransferase 13 U/L (0-31); Albumin Level 3.8 g/dL (3.5-5.0); Alkaline Phosphatase 88 U/L (39-117); Anion Gap 11 (12-20); Aspartate Amino Transferase 18 U/L (5-31); Bilirubin Total 0.2 mg/dL (0.0-1.0); Blood Urea Nitrogen 16 mg/dL (9-16); Calcium 9.1 mg/dL (8.4-10.2); Carbon Dioxide 25 mmol/L (22-29); Chloride 110 mmol/L (96-108); Creatinine Clr Calc Pharmacy 53.6; Estimated Glomerular Filt Rate > 60; Glucose Random 81 mg/dL (60-115); Sodium 142 mmol/L (135-145); Total Protein 6.9 g/dL (6.5-8.0)
[2024-01-15 02:05] LABS: B Type Natriuretic Peptide 31 pg/mL (<100)
[2024-01-15 02:25] VITALS: BP 135/73; PULSE 84; RESP 18; TEMP 36.6; O2SAT 96
[2024-01-15 03:56] VITALS: BP 141/81; PULSE 85; RESP 16; TEMP 36.7; O2SAT 97
--- NOTE | 2024-01-15 06:09 | ED_ITS ---
HPI - Fall General Chief Complaint: Fall Stated Complaint: fall,swollen feet Time Seen by Provider: 01/15/24 06:01 Source: patient Mode of arrival: ambulatory Limitations: no limitations History of Present Illness ED Provider: Dr. Naomi Daniels HPI Narrative: Patient comes to the emergency room complaining of bilateral lower extremity edema for 1 day. Patient denies chest pain or shortness of breath. Patient states that earlier today she accidentally fell and hurt her right knee. However, patient has been ambulatory. Related Data Previous Rx's ?Medication ?Instructions ?Recorded cariprazine 3 mg capsule (Vraylar) 6 mg (2 x 3 mg) PO BEDTIME 30 days 07/14/23 #60 caps ammonium lactate 12 % lotion 1 appl topical BID PRN dry skin 30 09/29/23 days #1 g bupropion HCl 150 mg 24 hr tablet, 150 mg PO DAILY 30 days #30 tabs 09/29/23 extended release carbamazepine 100 mg 100 mg PO BID 30 days #60 tabs 09/29/23 tablet,extended release,12 hr (Tegretol XR) donepezil 10 mg tablet 10 mg PO BEDTIME 30 days #30 tabs 09/29/23 melatonin 3 mg tablet 9 mg (3 x 3 mg) PO BEDTIME 30 days 09/29/23 #90 tabs mirtazapine 15 mg tablet 15 mg PO BEDTIME 30 days #30 tabs 09/29/23 multivitamin (Daily-Vishnu tablet) 1 tab PO BEDTIME 30 days #30 tabs 09/29/23 trazodone 50 mg tablet 50 mg PO BEDTIME PRN Insomnia 30 10/08/23 days #30 tabs furosemide 20 mg tablet (Lasix) 20 mg PO DAILY #7 tabs 01/15/24 Allergies Allergy/AdvReac Type Severity Reaction Status Date / Time No Known Allergies Allergy Verified 01/15/24 01:14 Review of Systems 2 Review of Systems: Constitutional : No Weight loss, No Fever, No Chills, No Night Sweats, No Fatigue, No Malaise ENT/Mouth : No Hearing loss, No Ear Pain, No Nasal Congestion, No Sinus Pain, No Hoarseness, No sore throat, No Rhinorrhea, No Swallowing Difficulty Eyes: No Eye Pain, No Swelling, No Redness, No Foreign Body, No Discharge, No Vision Changes Cardiovascular : No Chest Pain, No SOB, No Dyspnea on Exertion, No Orthopnea, No Edema, No Palpitations Respiratory : No Cough, No Sputum, No Wheezing, No Smoke Exposure, No Dyspnea Gastrointestinal : No Nausea, No Vomiting, No Diarrhea, No Constipation, No abdominal Pain, No Hematochezia, No Melena Genitourinary : no irregular bleeding, No Dysuria, No Urinary Frequency, No Hematuria, No Urinary Incontinence, No Urgency, No Flank Pain, No Urinary Flow Changes, No Hesitancy Musculoskeletal : Complaining of lower extremity edema and right knee pain, no other joint pain, No Myalgias, No Joint Swelling Skin : No Skin Lesions, No rash Neuro : No Weakness, No Numbness, No Paresthesias, No Loss of Consciousness, No Dizziness, No Headache Psych : No Anxiety/Panic, No Depression, No SI/HI/AH/VH, No Social Issues, Heme/Lymph: No Bruising, No Bleeding,No Lymphadenopathy Endocrine : No Polyuria, No Polydipsia, No Temperature Intolerance PMFSH Past Medical History Medical History RADHA (acute kidney injury) Fracture of right ulnar styloid Neurodegenerative cognitive impairment Bipolar disorder, most recent episode depressed Left ankle sprain Low back pain Acute bronchitis Left sided sciatica Depression Sore throat (viral) Surgical History Hx of colonoscopy No significant past surgical history Social History Social History Household Members: Spouse Household Members Other:: Housing: House Do you presently have visiting nurse or other home services: No Alcohol intake: current Alcohol intake frequency: 0-2 drinks per day Comment: Independent Patient Tobacco Use Status: Former Tobacco user Smoked in Last 30 Days: No e-Cigarette/Vaping Use: Never Used Use of substances other than those prescribed or required for medical reasons: No Advance Directives: No Advance Directives Information Provided: No Do you have a plan to hurt others: No Plan service: No Sexual orientation: Straight/Heterosexual Physical Exam 2 Vital Signs: Vital Signs: Last Vital Signs Temp 98.0 F 01/15/24 03:56 Pulse 85 01/15/24 03:56 Resp 16 01/15/24 03:56 BP 141/81 H 01/15/24 03:56 Pulse Ox 97 01/15/24 03:56 O2 Del Method Room Air 01/15/24 03:56 BMI result Body Mass Index 25.8 Const: Other: Appearance: Alert. Oriented X3. No acute distress. Eyes: Pupils equal, round and reactive to light. ENT: Pharynx normal. Neck: Normal inspection. Neck supple. No lymph nodes noted. No crepitus CVS: Normal heart rate and rhythm. Pulses normal. Normal S1 and S2 Respiratory: No respiratory distress. Breath sounds normal. No Wheezing. No rales Abdomen: Soft and nontender. No rigidity. No distention. Skin: Skin warm and dry. Normal skin color. Normal skin turgor. Extremities +2 pitting edema, patient ambulatory, no significant leg swelling. No Lacerations. No Rash Neuro: Oriented X 3. No motor deficit. No sensory deficit. Moving all extremities. No slurred speech. CN 2 through 12 grossly intact Psych: calm, cooperative, normal affect Medical Decision Making Medical Decision Making MDM Narrative: My interpretation of labs, normal hematology and chemistry, BNP negative -discussed with the patient that she likely has venous insufficiency. Discussed with the patient to keep her legs elevated as long as possible at night. Patient instructed to use compression stockings. Patient agrees with plan. Lab Data [facility] Lab Attestation statement: I reviewed the patient's lab results. 01/15/24 01:34 01/15/24 01:34 Labs: Lab Results 01/15/24 Range/Units 01:34 WBC 7.1 (4.8-10.8) X10*3/uL RBC 4.19 L (4.20-5.50) X10*6/uL Hgb 12.4 (12.0-16.0) g/dl Hct 38.3 (37.0-47.0) % MCV 91.4 (80.0-98.0) fL MCH 29.6 (27.0-33.0) pg MCHC 32.4 (31.0-35.0) g/dl RDW 13.5 (11.0-16.0) % Plt Count 316 (160-400) X10*3/uL MPV 9.3 L (9.4-12.3) fL Immature Gran % (Auto) 0.3 (0.0-0.4) % Neut % (Auto) 57.0 (45-73) % Lymph % (Auto) 32.1 (20-40) % [place] % (Auto) 8.8 (2-11) % Eos % (Auto) 1.4 (0-4) % Baso % (Auto) 0.4 (0-2) % Lymph # (Auto) 2.3 (1.2-4.9) X10*3/uL [place] # (Auto) 0.6 (0.1-1.2) X10*3/uL Eos # (Auto) 0.1 (0.0-0.4) X10*3/uL Baso # (Auto) 0.0 (0.0-0.2) X10*3/uL Abs Immat Gran (auto) 0.02 (0.00-0.03) X10*3/uL Absolute Neuts (auto) 4.1 (2.0-8.3) x10*3/uL Absolute Nucleated RBC 0.000 (0.0-0.012) X10*3/uL Nucleated RBC % (auto) 0.0 (0.0-0.2) /100WBC Sodium 142 (135-145) mmol/L Potassium 4.0 (3.3-5.1) mmol/L Chloride 110 H (96-108) mmol/L Carbon Dioxide 25 (22-29) mmol/L Anion Gap 11 L (12-20) BUN 16 (9-16) mg/dL Creatinine 0.89 (0.5-1.4) mg/dL Estim Creat Clear Calc 53.6 Estimated GFR > 60 Random Glucose 81 (60-115) mg/dL Calcium 9.1 D (8.4-10.2) mg/dL Total Bilirubin 0.2 (0.0-1.0) mg/dL AST 18 (5-31) U/L ALT 13 (0-31) U/L Alkaline Phosphatase 88 (39-117) U/L B-Natriuretic Peptide 31 (<100) pg/mL Total Protein 6.9 (6.5-8.0) g/dL Albumin 3.8 (3.5-5.0) g/dL Urine Color Yellow Urine Appearance Cloudy Urine pH 5.0 (5.0-9.0) Ur Specific [place] 1.015 (1.005-1.025) Urine Protein Negative (Neg-Trace) mg/dL Urine Glucose (UA) Negative (Negative) mg/dL Urine Ketones Negative (Negative) mg/dL Urine Blood Negative (Negative) Urine Nitrite Negative (Negative) Ur Leukocyte Esterase Large (3+) H (Negative) Urine RBC 0-2 (0-2) /HPF Urine WBC 21-50 H (0-5) /HPF Ur Squamous Epith Cells 6-10 (0-2) /HPF Urine Bacteria 1+ (None Seen) Hyaline Casts 0-2 (0-2) /LPF Independent Interpretation I performed an independent interpretation of an: Plain X-Ray Radiology Impression Discussion of test interpretation with radiology: I have reviewed the radiologist's reading. Radiologist Impression: Osseous alignment is anatomic. Slight tricompartmental joint space narrowing is noted. No acute fracture is seen. No significant effusion. Small chronic appearing calcification in the suprapatellar region. A couple tiny calcifications anterior to the proximal tibia are suggestive of phleboliths. XR/XR knee LT 2V IMPRESSION: No acute findings identified. Mild chronic appearing changes as noted above. Discharge Plan Discharge Clinical Impression: Bilateral lower extremity edema Patient Disposition: Home, Self-Care Instructions: Leg Edema (ED) Additional Instructions: Please follow-up with your primary care physician tomorrow. If you have any worsening or new symptoms, please return to the emergency room or call 911 Prescriptions: New furosemide [Lasix] 20 mg tablet 20 mg PO DAILY Qty: 7 0RF No Action Vraylar 3 mg Capsule 6 mg PO BEDTIME 30 Days Qty: 60 0RF carbamazepine [Tegretol XR] 100 mg Tablet Extended Release 12 Hr 100 mg PO BID 30 Days Qty: 60 0RF mirtazapine 15 mg Tablet 15 mg PO BEDTIME 30 Days Qty: 30 0RF multivitamin [Daily-Vishnu] Tablet 1 tab PO BEDTIME 30 Days Qty: 30 0RF ammonium lactate 12 % Lotion 1 appl topical BID PRN (Reason: dry skin) 30 Days Qty: 1 0RF Protocol: Apply to: Apply to: affected area donepezil 10 mg Tablet 10 mg PO BEDTIME 30 Days Qty: 30 0RF melatonin 3 mg Tablet 9 mg PO BEDTIME 30 Days Qty: 90 0RF bupropion HCl 150 mg Tablet Extended Release 24 Hr 150 mg PO DAILY 30 Days Qty: 30 0RF trazodone 50 mg Tablet 50 mg PO BEDTIME PRN (Reason: Insomnia) 30 Days Qty: 30 0RF Print Language: Dutch
[2024-01-15 06:18] VITALS: BP 150/96; PULSE 83; RESP 18; TEMP 36.7; O2SAT 97
== END 2024-01-15 06:26 | disposition home or self-care (01) ==
PROVIDERS: Emergency Provider Emergency Medicine
DX: R60.0 Localized edema (principal); Z87.440 Personal history of urinary (tract) infections; G31.9 Degenerative disease of nervous system, unspecified; Z87.891 Personal history of nicotine dependence; Z79.899 Other long term (current) drug therapy
CPT/HCPCS: 36415; 73560; 80053; 81001; 83880; 85025; 87086; 99283; 99284

== ENCOUNTER 2024-01-24 04:50 | Emergency (ER) | payer MEDICARE, SELFPAY ==
[2024-01-24 04:56] VITALS: BP 145/87; BP 151/86; PULSE 83; PULSE 84; RESP 18; TEMP 36.5; O2SAT 100; O2SAT 99; BMI 22.8
[2024-01-24 05:49] LABS: Influenza A PCR NEGATIVE (Negative); Influenza B PCR NEGATIVE (Negative); Resp Syncy Virus RNA Qual PCR NEGATIVE (Negative); SARS COV2 PCR INHOUSE NEGATIVE (Negative)
--- NOTE | 2024-01-24 06:10 | PC.NURSE ---
pt c/o of lower back pain, her ears hurt, throat hurts, and she just doesn't feel good. Pt states, this started on Thursday. Resp with ease, no s/s of acute distress
[2024-01-24 06:56] VITALS: BP 118/73; PULSE 78; RESP 16; TEMP 36.5; O2SAT 99
--- NOTE | 2024-01-24 06:57 | PC.NURSE ---
report given to Charlotte PLUNKETT
--- NOTE | 2024-01-24 07:08 | ECG_ITS ---
Test Reason : FATIGUE Blood Pressure : / mmHG Vent. Rate : 080 BPM Atrial Rate : 080 BPM P-R Int : 162 ms QRS Dur : 102 ms QT Int : 416 ms P-R-T Axes : 060 -38 046 degrees QTc Int : 479 ms Normal sinus rhythm with sinus arrhythmia Possible Left atrial enlargement Left axis deviation Incomplete right bundle branch block Anterior infarct , age undetermined Abnormal ECG When compared with ECG of 02-OCT-2023 07:31, No significant change was found Referred By: Carito Childers Electronically Signed By:JONO HARTMAN
--- NOTE | 2024-01-24 07:10 | ED_ITS ---
HPI - General Adult General Chief complaint: General Medical Stated complaint: GENERAL MALAISE, BELIEVES SHE HAS COVID Time Seen by Provider: 01/24/24 06:40 Source: patient and EMS Mode of arrival: EMS Limitations: no limitations History of Present Illness ED Provider: Jono PANG HPI narrative: This is a 68-year-old female history of fatigue, bipolar depression, neuro degenerative cognitive impairment, presenting to the emergency department with complaints of fatigue and hunger. She reports last night she got into an argument with her she called the police then she laid in bed and decided she was very tired and just did not feel well. She asked to be brought to the hospital. She denies anxiety, depression, suicidal and homicidal ideation. She reports she has been feeling tired for months. Denies fevers, chills, chest pain, shortness of breath, palpitations, headache, vision changes, dizziness, weakness. Related Data Previous Rx's ?Medication ?Instructions ?Recorded cariprazine 3 mg capsule (Vraylar) 6 mg (2 x 3 mg) PO BEDTIME 30 days 07/14/23 #60 caps ammonium lactate 12 % lotion 1 appl topical BID PRN dry skin 30 09/29/23 days #1 g bupropion HCl 150 mg 24 hr tablet, 150 mg PO DAILY 30 days #30 tabs 09/29/23 extended release carbamazepine 100 mg 100 mg PO BID 30 days #60 tabs 09/29/23 tablet,extended release,12 hr (Tegretol XR) donepezil 10 mg tablet 10 mg PO BEDTIME 30 days #30 tabs 09/29/23 melatonin 3 mg tablet 9 mg (3 x 3 mg) PO BEDTIME 30 days 09/29/23 #90 tabs mirtazapine 15 mg tablet 15 mg PO BEDTIME 30 days #30 tabs 09/29/23 multivitamin (Daily-Vishnu tablet) 1 tab PO BEDTIME 30 days #30 tabs 09/29/23 trazodone 50 mg tablet 50 mg PO BEDTIME PRN Insomnia 30 10/08/23 days #30 tabs furosemide 20 mg tablet (Lasix) 20 mg PO DAILY #7 tabs 01/15/24 Allergies Allergy/AdvReac Type Severity Reaction Status Date / Time No Known Allergies Allergy Verified 01/24/24 05:01 Review of Systems 2 Review of Systems: Yes all other systems are reviewed and are negative [facility] Past Medical History Attestation statement: The following information was validated with the patient. Source: old records reviewed and nursing notes reviewed Medical History RADHA (acute kidney injury) Fracture of right ulnar styloid Neurodegenerative cognitive impairment Bipolar disorder, most recent episode depressed Left ankle sprain Low back pain Acute bronchitis Left sided sciatica Depression Sore throat (viral) Surgical History Hx of colonoscopy No significant past surgical history Social History Social History Household Members: Spouse Household Members Other:: Housing: House Do you presently have visiting nurse or other home services: No Alcohol intake: current Alcohol intake frequency: 0-2 drinks per day Comment: Independent Patient Tobacco Use Status: Former Tobacco user Smoked in Last 30 Days: No e-Cigarette/Vaping Use: Never Used Substance Use Type: Marijuana Advance Directives: No Advance Directives Information Provided: Yes Do you have a plan to hurt others: No Plan service: No Sexual orientation: Straight/Heterosexual Physical Exam ED Vital Signs: Vital Signs - 24 hr 01/24/24 04:56 01/24/24 06:56 01/24/24 08:00 Temperature 97.7 F 97.7 F Pulse Rate 83 78 86 Respiratory Rate 18 16 16 Blood Pressure 151/86 H 118/73 133/82 Pulse Oximetry 100 99 100 Oxygen Delivery Method Room Air Room Air Room Air 01/24/24 08:22 Temperature 97.7 F Pulse Rate 86 Respiratory Rate 16 Blood Pressure 133/82 Pulse Oximetry 100 Oxygen Delivery Method Room Air BMI result Body Mass Index 22.8 vss Appearance: Alert.? Oriented X3.? No acute distress.? Head: Normocephalic, atraumatic, no step-offs or deformities Eyes: Pupils equal, round and reactive to light.? CVS: Normal heart rate and rhythm.? Pulses normal.? Respiratory: No respiratory distress.? Breath sounds normal.? Abdomen: Soft and nontender.? Skin: Skin warm and dry.? Normal skin color.? Normal skin turgor.? Extremities: No lower extremity edema.? No calf ttp. 5/5 strength to bilateral upper and lower extremities Neuro: Oriented X 3.? No motor deficit.? No sensory deficit. CN 2-12 intact Course Reevaluation(s) Reevaluation #1: CBC unremarkable. Chemistry no acute findings needing intervention. UA with no acute findings meeting intervention. Flu, COVID, RSV negative. Time: 08:13 Reevaluation #2: Troponin pending, nonischemic EKG. Patient requesting to leave because she has to go to [address] [place] [address]. Educated patient on diagnosis and treatment plan, answered all question, patient verbalizes understanding. At this time patient will be discharged home, advised to return with new or worsening symptoms. Educated on worrisome signs and symptoms and when to return. At this time I feel comfortable discharge home. Time: 08:13 Reevaluation #3: trop - Medical Decision Making Medical Decision Making [facility] Narrative: 0711 68-year-old female presents with fatigue and hunger ongoing since last night after a argument with her significant other Physical exam benign History and physical exam concerning for emotional stress versus anxiety versus depression. Unlikely metabolic derangements, urinary infection, systemic illness. Other differentials include viral illness, thyroid disorder Plan labs, urine. Differential Diagnosis Differential Diagnoses: The differential diagnosis associated with the presentation includes History and physical exam concerning for emotional stress versus anxiety versus depression. Unlikely metabolic derangements, urinary infection, systemic illness. Other differentials include viral illness, thyroid disorder Admission/Observation Consideration of admission/observation: Escalation of care including admission/observation considered possible Lab Data [facility] Lab Attestation statement: I reviewed the patient's lab results. 01/24/24 07:27 01/24/24 07:27 Labs: Lab Results 01/24/24 01/24/24 01/24/24 Range/Units 05:06 07:27 07:47 WBC 7.6 (4.8-10.8) X10*3/uL RBC 4.37 (4.20-5.50) X10*6/uL Hgb 12.8 (12.0-16.0) g/dl Hct 39.7 (37.0-47.0) % MCV 90.8 (80.0-98.0) fL MCH 29.3 (27.0-33.0) pg MCHC 32.2 (31.0-35.0) g/dl RDW 12.9 (11.0-16.0) % Plt Count 368 (160-400) X10*3/uL MPV 9.2 L (9.4-12.3) fL Immature Gran % (Auto) 0.3 (0.0-0.4) % Neut % (Auto) 60.3 (45-73) % Lymph % (Auto) 29.3 (20-40) % [place] % (Auto) 8.4 (2-11) % Eos % (Auto) 1.0 (0-4) % Baso % (Auto) 0.7 (0-2) % Lymph # (Auto) 2.2 (1.2-4.9) X10*3/uL [place] # (Auto) 0.6 (0.1-1.2) X10*3/uL Eos # (Auto) 0.1 (0.0-0.4) X10*3/uL Baso # (Auto) 0.1 (0.0-0.2) X10*3/uL Abs Immat Gran (auto) 0.02 (0.00-0.03) X10*3/uL Absolute Neuts (auto) 4.6 (2.0-8.3) x10*3/uL Absolute Nucleated RBC 0.000 (0.0-0.012) X10*3/uL Nucleated RBC % (auto) 0.0 (0.0-0.2) /100WBC Sodium 139 (135-145) mmol/L Potassium 3.9 (3.3-5.1) mmol/L Chloride 103 (96-108) mmol/L Carbon Dioxide 27 (22-29) mmol/L Anion Gap 13 (12-20) BUN 15 (9-16) mg/dL Creatinine 0.93 (0.5-1.4) mg/dL Estim Creat Clear Calc 46.5 Estimated GFR 60 Random Glucose 86 (60-115) mg/dL Calcium 9.3 (8.4-10.2) mg/dL Total Bilirubin 0.5 (0.0-1.0) mg/dL AST 18 (5-31) U/L ALT 13 (0-31) U/L Alkaline Phosphatase 84 (39-117) U/L Troponin I High Sens < 2.7 (<3.5-17.0) ng/L Total Protein 7.1 (6.5-8.0) g/dL Albumin 3.9 (3.5-5.0) g/dL Urine Color Yellow Urine Appearance Cloudy Urine pH 5.5 (5.0-9.0) Ur Specific [place] 1.010 (1.005-1.025) Urine Protein Negative (Neg-Trace) mg/dL Urine Glucose (UA) Negative (Negative) mg/dL Urine Ketones Negative (Negative) mg/dL Urine Blood Negative (Negative) Urine Nitrite Negative (Negative) Ur Leukocyte Esterase Small (1+) H (Negative) Urine RBC 0-2 (0-2) /HPF Urine WBC 0-5 (0-5) /HPF Ur Squamous Epith Cells 3-5 (0-2) /HPF Urine Bacteria None Seen (None Seen) Hyaline Casts 0-2 (0-2) /LPF Influenza Type A (PCR) NEGATIVE (Negative) Influenza Type B (PCR) NEGATIVE (Negative) RSV RNA Qual (PCR) NEGATIVE (Negative) SARS-CoV-2 RNA (RT-PCR) NEGATIVE (Negative) Independent Interpretation I performed an independent interpretation of an: EKG (Vent. Rate : 080 BPM Atrial Rate : 080 BPM P-R Int : 162 ms QRS Dur : 102 ms QT Int : 416 ms P-R-T Axes : 060 -38 046 degrees QTc Int : 479 ms Normal sinus rhythm with sinus arrhythmia Possible Left atrial enlargement Left axis deviation Incomplete right bundle branch ) Radiology Impression Discussion of test interpretation with radiology: I have reviewed the radiologist's reading. External Record Review External record reviewed: Inpatient record, Office record, Outpatient record, Prior outpatient labs, Prior outpatient radiology, Primary care record and Outside ED record Chronic Conditions Patient?s care impacted by: Other (Refer to HPI ) Critical Care Time Critical Care Time Critical Care Time: No Discharge Plan Discharge Clinical Impression: Fatigue Patient Disposition: Home, Self-Care Instructions: Fatigue (ED) Additional Instructions: Take your medications as prescribed. If you were prescribed antibiotics today, it is important that you take your medication to their entirety, do not skip any doses, do not finish them early. Follow-up with your primary care provider this week. Return to the emergency department with new or worsening symptoms. Such as fevers, chills, chest pain, shortness of breath, nausea, vomiting, dizziness, headache, vision changes, lethargy In case of emergency call 911 Prescriptions: No Action Vraylar 3 mg Capsule 6 mg PO BEDTIME 30 Days Qty: 60 0RF carbamazepine [Tegretol XR] 100 mg Tablet Extended Release 12 Hr 100 mg PO BID 30 Days Qty: 60 0RF mirtazapine 15 mg Tablet 15 mg PO BEDTIME 30 Days Qty: 30 0RF multivitamin [Daily-Vishnu] Tablet 1 tab PO BEDTIME 30 Days Qty: 30 0RF ammonium lactate 12 % Lotion 1 appl topical BID PRN (Reason: dry skin) 30 Days Qty: 1 0RF Protocol: Apply to: Apply to: affected area donepezil 10 mg Tablet 10 mg PO BEDTIME 30 Days Qty: 30 0RF melatonin 3 mg Tablet 9 mg PO BEDTIME 30 Days Qty: 90 0RF bupropion HCl 150 mg Tablet Extended Release 24 Hr 150 mg PO DAILY 30 Days Qty: 30 0RF furosemide [Lasix] 20 mg tablet 20 mg PO DAILY Qty: 7 0RF trazodone 50 mg Tablet 50 mg PO BEDTIME PRN (Reason: Insomnia) 30 Days Qty: 30 0RF Referrals: Ahsan Carrero MD [Primary Care Provider] - 2 days Interventions: ED Discharge Assessment Last Done: 01/24/24 08:22 Print Language: Senegalese
[2024-01-24 07:36] LABS: MANUAL DIFF FLAG NO
[2024-01-24 07:46] LABS: Basophils Absolute Auto 0.1 X10*3/uL (0.0-0.2); Basophils Percent Auto 0.7 % (0-2); Eosinophils Absolute Auto 0.1 X10*3/uL (0.0-0.4); Hematocrit 39.7 % (37.0-47.0); Hemoglobin 12.8 g/dl (12.0-16.0); Imm Gran Abs Auto 0.02 X10*3/uL (0.00-0.03); Imm Gran Pct Auto 0.3 % (0.0-0.4); Lymphocytes Absolute Auto 2.2 X10*3/uL (1.2-4.9); Lymphocytes Percent Auto 29.3 % (20-40); Mean Corpuscular HGB Conc 32.2 g/dl (31.0-35.0); Mean Corpuscular Hemoglobin 29.3 pg (27.0-33.0); Mean Corpuscular Volume 90.8 fL (80.0-98.0); Mean Platelet Volume 9.2 fL (9.4-12.3); Monocytes Absolute Auto 0.6 X10*3/uL (0.1-1.2); Monocytes Percent Auto 8.4 % (2-11); Neutrophils Absolute Auto 4.6 x10*3/uL (2.0-8.3); Neutrophils Percent Auto 60.3 % (45-73); Platelet Count 368 X10*3/uL (160-400); Red Blood Count 4.37 X10*6/uL (4.20-5.50); Red Cell Distribution Width 12.9 % (11.0-16.0); White Blood Count 7.6 X10*3/uL (4.8-10.8)
[2024-01-24 07:54] LABS: Alanine Aminotransferase 13 U/L (0-31); Albumin Level 3.9 g/dL (3.5-5.0); Alkaline Phosphatase 84 U/L (39-117); Anion Gap 13 (12-20); Aspartate Amino Transferase 18 U/L (5-31); Bilirubin Total 0.5 mg/dL (0.0-1.0); Blood Urea Nitrogen 15 mg/dL (9-16); Calcium 9.3 mg/dL (8.4-10.2); Carbon Dioxide 27 mmol/L (22-29); Chloride 103 mmol/L (96-108); Creatinine Clr Calc Pharmacy 46.5; Estimated Glomerular Filt Rate 60; Glucose Random 86 mg/dL (60-115); Potassium 3.9 mmol/L (3.3-5.1); Sodium 139 mmol/L (135-145); Total Protein 7.1 g/dL (6.5-8.0)
[2024-01-24 08:00] VITALS: BP 133/82; PULSE 86; RESP 16; O2SAT 100
[2024-01-24 08:00] LABS: Appearance Urine Cloudy; Color Urine Yellow; Glucose Urine UA Negative (Negative); Leukocyte Esterase Urine Small (1+) (Negative); Nitrite Urine Negative (Negative); PH 5.5 (5.0-9.0); UMIC TRIGGER UACC YES; Urine Blood Negative (Negative); Urine Ketones Negative (Negative); Urine Protein Negative (Neg-Trace)
--- NOTE | 2024-01-24 08:08 | PC.NURSE ---
Care of Pt assumed at change of shift. Pt resting quietly on stretcher. VSS, A&Ox3. Pt requesting to be D/C'd--will consult with provider.
[2024-01-24 08:09] LABS: Bacteria Urine None Seen (None Seen); Hyaline Casts Urine 0-2 /LPF (0-2); RBC Urine 0-2 /HPF (0-2); UACC Culture Trigger YES; WBC Urine 0-5 /HPF (0-5)
[2024-01-24 08:22] VITALS: BP 133/82; PULSE 86; RESP 16; TEMP 36.5; O2SAT 100
[2024-01-24 08:23] LABS: Troponin-I High Sensitivity < 2.7 ng/L (<3.5-17.0)
== END 2024-01-24 09:15 | disposition home or self-care (01) ==
PROVIDERS: Physician Assistant; Emergency Provider Emergency Medicine; PCP Internal Medicine
DX: I49.8 Other specified cardiac arrhythmias (principal); F33.1 Major depressive disorder, recurrent, moderate; Z87.891 Personal history of nicotine dependence; Z79.899 Other long term (current) drug therapy; Z03.818 Encounter for observation for suspected exposure to other biological agents ruled out
CPT/HCPCS: 0241U; 36415; 80053; 81001; 81003; 84484; 85025; 87086; 93005; 99284

== ENCOUNTER 2024-01-25 01:12 | Emergency (ER) | payer MEDICARE, SELFPAY ==
[2024-01-25 01:15] VITALS: BP 124/102; BP 132/78; PULSE 50; PULSE 74; RESP 16; O2SAT 100; O2SAT 98; BMI 23.0
[2024-01-25 01:24] VITALS: BP 132/78; PULSE 68; RESP 16; O2SAT 98
--- NOTE | 2024-01-25 02:02 | PC.NURSE ---
Upon arrival, pt asking for various food items. Reports being hungry. A sandwich, water, and crackers offered.
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
[2024-01-25 02:18] VITALS: BP 147/87; PULSE 77; RESP 14; TEMP 36.6; O2SAT 100
--- NOTE | 2024-01-25 03:16 | PC.NURSE ---
Pt is OOB to use the bathroom, ambulates with a steady gait. Pt continues to invite the tech to go to [facility] in [place], tech respectfully declined.
[2024-01-25 03:58] LABS: MANUAL DIFF FLAG NO
[2024-01-25 04:00] LABS: Basophils Percent Auto 0.5 % (0-2); Eosinophils Absolute Auto 0.1 X10*3/uL (0.0-0.4); Eosinophils Percent Auto 1.5 % (0-4); Hematocrit 38.3 % (37.0-47.0); Hemoglobin 12.4 g/dl (12.0-16.0); Imm Gran Abs Auto 0.01 X10*3/uL (0.00-0.03); Imm Gran Pct Auto 0.1 % (0.0-0.4); Lymphocytes Absolute Auto 2.4 X10*3/uL (1.2-4.9); Lymphocytes Percent Auto 31.5 % (20-40); Mean Corpuscular HGB Conc 32.4 g/dl (31.0-35.0); Mean Corpuscular Hemoglobin 29.3 pg (27.0-33.0); Mean Corpuscular Volume 90.5 fL (80.0-98.0); Mean Platelet Volume 9.1 fL (9.4-12.3); Monocytes Absolute Auto 0.6 X10*3/uL (0.1-1.2); Monocytes Percent Auto 7.3 % (2-11); Neutrophils Absolute Auto 4.4 x10*3/uL (2.0-8.3); Neutrophils Percent Auto 59.1 % (45-73); Platelet Count 353 X10*3/uL (160-400); Red Blood Count 4.23 X10*6/uL (4.20-5.50); Red Cell Distribution Width 12.9 % (11.0-16.0); White Blood Count 7.5 X10*3/uL (4.8-10.8)
[2024-01-25 04:02] VITALS: BP 113/70; PULSE 90; RESP 16; TEMP 36.5; O2SAT 96
[2024-01-25 04:13] LABS: Alanine Aminotransferase 11 U/L (0-31); Albumin Level 3.5 g/dL (3.5-5.0); Alkaline Phosphatase 76 U/L (39-117); Anion Gap 12 (12-20); Aspartate Amino Transferase 16 U/L (5-31); Bilirubin Total 0.3 mg/dL (0.0-1.0); Blood Urea Nitrogen 21 mg/dL (9-16); Calcium 8.6 mg/dL (8.4-10.2); Carbon Dioxide 24 mmol/L (22-29); Chloride 107 mmol/L (96-108); Estimated Glomerular Filt Rate > 60; Glucose Random 118 mg/dL (60-115); Potassium 3.7 mmol/L (3.3-5.1); Sodium 139 mmol/L (135-145); Total Protein 6.4 g/dL (6.5-8.0)
[2024-01-25 04:34] LABS: Appearance Urine Clear; Color Urine Yellow; Glucose Urine UA Negative (Negative); Leukocyte Esterase Urine Moderate (2+) (Negative); Nitrite Urine Negative (Negative); PH 5.5 (5.0-9.0); UMIC TRIGGER UACC YES; Urine Blood Negative (Negative); Urine Ketones Negative (Negative); Urine Protein Negative (Neg-Trace)
[2024-01-25 04:39] LABS: Bacteria Urine Trace (None Seen); Hyaline Casts Urine 0-2 /LPF (0-2); RBC Urine 0-2 /HPF (0-2); Squamous Epithelial Cell Urine 0-2 /HPF (0-2); UACC Culture Trigger YES
--- NOTE | 2024-01-25 05:00 | PC.NURSE ---
Pt needs frequent redirection to remain in bed to prevent a fall and asked to wear her slippers when she is standing and/or walking around.
--- NOTE | 2024-01-25 05:41 | PC.NURSE ---
Attempted to call pts cousin with no success.
[2024-01-25 06:16] VITALS: BP 126/74; PULSE 80; RESP 16; TEMP 36.5; O2SAT 98
--- NOTE | 2024-01-25 07:06 | PC.NURSE ---
Addendum entered by Magdalena Latham 01/25/24 07:07: patient w/ multiple attempts to reach family to bring pt home Original Note: continues to ambulate independently w/ steady gait. requesting breakfast, aware we are awaiting on the kitchen to bring her tray.
== END 2024-01-25 09:35 | disposition home or self-care (01) ==
PROVIDERS: Emergency Provider Internal Medicine; PCP Internal Medicine
DX: F31.9 Bipolar disorder, unspecified (principal); N39.0 Urinary tract infection, site not specified; X58.XXXA Exposure to other specified factors, initial encounter; S59.902A Unspecified injury of left elbow, initial encounter; Y93.9 Activity, unspecified; Y92.9 Unspecified place or not applicable; Y99.9 Unspecified external cause status
CPT/HCPCS: 36415; 80053; 81001; 85025; 99283; 99284

== ENCOUNTER 2024-01-29 05:47 | Inpatient (IN) | payer MEDICARE, SELFPAY ==
--- NOTE | 2024-01-29 | ECG_ITS ---
Test Reason : RULE OUT QTC PROLONG Blood Pressure : / mmHG Vent. Rate : 097 BPM Atrial Rate : 097 BPM P-R Int : 158 ms QRS Dur : 100 ms QT Int : 372 ms P-R-T Axes : 067 -20 043 degrees QTc Int : 472 ms Normal sinus rhythm Incomplete right bundle branch block Borderline ECG When compared with ECG of 24-JAN-2024 07:10, No significant change was found Referred By: Tab Ferrell Electronically Signed By:JONO HARTMAN
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
[2024-01-29 05:51] VITALS: BP 166/98; PULSE 85; RESP 16; TEMP 36.6; O2SAT 100; BMI 25.2
[2024-01-29 06:52] VITALS: PULSE 78; RESP 20; TEMP 36.6; O2SAT 100
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
[2024-01-29 08:00] VITALS: BP 135/68; PULSE 82; TEMP 36.3; O2SAT 100
[2024-01-29 08:27] LABS: MANUAL DIFF FLAG NO
[2024-01-29 08:28] LABS: Basophils Percent Auto 0.6 % (0-2); Eosinophils Absolute Auto 0.1 X10*3/uL (0.0-0.4); Eosinophils Percent Auto 1.2 % (0-4); Hematocrit 38.9 % (37.0-47.0); Hemoglobin 12.7 g/dl (12.0-16.0); Imm Gran Abs Auto 0.03 X10*3/uL (0.00-0.03); Imm Gran Pct Auto 0.4 % (0.0-0.4); Lymphocytes Absolute Auto 2.1 X10*3/uL (1.2-4.9); Lymphocytes Percent Auto 30.9 % (20-40); Mean Corpuscular HGB Conc 32.6 g/dl (31.0-35.0); Mean Corpuscular Hemoglobin 29.5 pg (27.0-33.0); Mean Corpuscular Volume 90.3 fL (80.0-98.0); Mean Platelet Volume 9.1 fL (9.4-12.3); Monocytes Absolute Auto 0.6 X10*3/uL (0.1-1.2); Monocytes Percent Auto 8.7 % (2-11); Neutrophils Percent Auto 58.2 % (45-73); Platelet Count 353 X10*3/uL (160-400); Red Blood Count 4.31 X10*6/uL (4.20-5.50); Red Cell Distribution Width 12.9 % (11.0-16.0); White Blood Count 6.8 X10*3/uL (4.8-10.8)
[2024-01-29 08:43] LABS: Alanine Aminotransferase 12 U/L (0-31); Albumin Level 3.8 g/dL (3.5-5.0); Alkaline Phosphatase 74 U/L (39-117); Anion Gap 11 (12-20); Aspartate Amino Transferase 17 U/L (5-31); Bilirubin Direct 0.1 mg/dL (0.0-0.5); Bilirubin Total 0.4 mg/dL (0.0-1.0); Blood Urea Nitrogen 18 mg/dL (9-16); Calcium 9.2 mg/dL (8.4-10.2); Carbon Dioxide 28 mmol/L (22-29); Chloride 105 mmol/L (96-108); Estimated Glomerular Filt Rate > 60; Ethanol < 10 mg/dL; Glucose Random 90 mg/dL (60-115); Lipase 37 U/L (8-78); Potassium 4.1 mmol/L (3.3-5.1); Sodium 140 mmol/L (135-145); Total Protein 6.8 g/dL (6.5-8.0)
--- NOTE | 2024-01-29 09:05 | PC.NURSE ---
Pt requesting food. Ordered breakfast tray from kitchen.
--- NOTE | 2024-01-29 09:46 | PC.NURSE ---
Assumed care of patient at 0935, patient appears to be in no apparent distress, ambulating with steady gait around BH pod, now eating breakfast, calm and cooperative. Continue plan of care for care team assessment
[2024-01-29 09:56] LABS: Appearance Urine Clear; Color Urine Straw; Glucose Urine UA Negative (Negative); Leukocyte Esterase Urine Moderate (2+) (Negative); Nitrite Urine Negative (Negative); PH 6.5 (5.0-9.0); UMIC TRIGGER UACC YES; Urine Blood Negative (Negative); Urine Ketones Negative (Negative); Urine Protein Negative (Neg-Trace)
[2024-01-29 10:05] LABS: Amphetamine Screen Urine Not Detected (Not Detect); Barbiturates, Urine Not Detected (Not Detect); Benzodiazepines Screen Urine Not Detected (Not Detect); Buprenorphine Scr Not Detected (Not Detect); Cannabinoid Screen Urine Not Detected (Not Detect); Cocaine Screen Urine Not Detected (Not Detect); Fentanyl, urine Not Detected (Not Detect); Methadone Screen, Urine Not Detected (Not Detect); Opiate Screen Urine Not Detected (Not Detect); Oxycodone Screen Urine Not Detected (Not Detect); Phencyclidine Screen Urine Not Detected (Not Detect)
[2024-01-29 10:09] LABS: Bacteria Urine None Seen (None Seen); Hyaline Casts Urine 0-2 /LPF (0-2); RBC Urine 0-2 /HPF (0-2); Squamous Epithelial Cell Urine 0-2 /HPF (0-2); UACC Culture Trigger YES
--- NOTE | 2024-01-29 11:27 | PC.NURSE ---
Pt intrusive into others personal space and conversations, making inappropriate comments, able to be verbally redirected most times. Pt refusing all medications
[2024-01-29 16:00] VITALS: BP 140/79; PULSE 96; RESP 16; TEMP 36.6; O2SAT 100
--- NOTE | 2024-01-29 16:16 | PC.NURSE ---
Addendum entered by Kinga Rehman 01/29/24 16:28: Patient reports to this RN that she stopped taking all of her meds abruptly approximately 1 month prior to today. She reports taking no medications at this time, including OTCs. Unable to enter any medications in the medical rec due to patient not being on meds at this time Original Note: RE: med rec Patient takes no home medications
--- NOTE | 2024-01-29 18:20 | PC.NURSE ---
Pt continues to be intrusive into others personal space and conversations. Pt was observed wandering into another patient's bedroom multiple times, pt exited with verbal redirection each time. Pt continues to refuse medication
[2024-01-29 18:54] VITALS: BMI 25.7
[2024-01-29 18:59] VITALS: BP 142/71; PULSE 100; RESP 16; TEMP 36.6; O2SAT 100
[2024-01-29 20:00] VITALS: BP 147/77; PULSE 95; RESP 16; TEMP 37.1; O2SAT 98
[2024-01-29] MEDS: cefuroxime axetiL 500 MG TABLET PO (20:12)
[2024-01-29] MEDS: hydrOXYzine HCL 25 MG TABLET PO (23:17)
[2024-01-29] MEDS: Acetaminophen 325 MG TABLET 650 MG PO (23:17)
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
[2024-01-30 07:50] VITALS: BP 177/82; PULSE 93; RESP 16; TEMP 36.4; O2SAT 100
[2024-01-30] MEDS: cefuroxime axetiL 500 MG TABLET PO ×2 (08:18→20:08)
[2024-01-30] MEDS: Flu Vacc TS2024-25(6mos up)/PF 0.5 ML SYRINGE IM (08:23)
[2024-01-30] MEDS: Acetaminophen 325 MG TABLET 650 MG PO ×3 (08:48→22:00)
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
[2024-01-30] MEDS: hydrOXYzine HCL 25 MG TABLET PO (17:22)
[2024-01-30] MEDS: OLANZapine 5 MG TABLET PO (18:31)
[2024-01-30 19:33] VITALS: BP 115/73; PULSE 94; RESP 16; TEMP 36.4; O2SAT 97
[2024-01-30] MEDS: Melatonin 3 MG TABLET 9 MG PO (23:06)
[2024-01-31 07:37] VITALS: BP 135/59; PULSE 88; RESP 14; TEMP 36.9; O2SAT 96
[2024-01-31] MEDS: carBAMazepine ER 100 MG TAB.ER.12H PO ×2 (08:02→20:01)
[2024-01-31] MEDS: Cariprazine HCl 3 MG CAPSULE PO (08:02)
[2024-01-31] MEDS: cefuroxime axetiL 500 MG TABLET PO ×2 (08:03→20:00)
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
[2024-01-31] MEDS: Acetaminophen 325 MG TABLET 650 MG PO ×2 (12:01→20:00)
[2024-01-31 20:00] VITALS: BP 132/88; PULSE 88; RESP 16; TEMP 36.8; O2SAT 100
[2024-01-31] MEDS: Donepezil HCl 10 MG TABLET PO (20:00)
[2024-01-31] MEDS: Melatonin 3 MG TABLET 9 MG PO (20:08)
[2024-01-31] MEDS: Mirtazapine 7.5 MG TABLET PO (22:04)
[2024-02-01 02:05] LABS: CT PCR NOT DETECTED (Not Detect.); NG PCR NOT DETECTED (Not Detect.)
[2024-02-01 07:44] VITALS: BP 146/71; PULSE 82; RESP 14; TEMP 36.2; O2SAT 98
[2024-02-01 08:16] LABS: HBS Num1 0.72 mIU/mL (0-7.99); HBc Num1 0.14 S/CO (0.00-0.79); HBsAGNum1 0.33 S/CO (0.00-0.99); Hepatitis A Antibody IgM 0.48 Index (0-0.79); Hepatitis B Core Antibody Nonreactive (Nonreactive); Hepatitis B Surface Antigen Negative (Negative); Syphilis Screen Nonreactive (Nonreactive); ~HepC Num1 0.11 S/CO (0.00-0.79); ~Hepatitis A Antibody IgM Nonreactive (Nonreactive); ~Hepatitis B Surface Antibody NONREACTIVE (Nonreactive); ~Hepatitis C Antibody Nonreactive (Nonreactive)
[2024-02-01 08:17] LABS: HIV AB/AG Nonreactive (Nonreactive); HIV Num 1 0.05 S/CO (0.00-0.99)
[2024-02-01] MEDS: Acetaminophen 325 MG TABLET 650 MG PO ×2 (08:20→19:52)
[2024-02-01] MEDS: carBAMazepine ER 100 MG TAB.ER.12H PO ×2 (08:20→21:57)
[2024-02-01] MEDS: Cariprazine HCl 3 MG CAPSULE PO (08:20)
[2024-02-01] MEDS: cefuroxime axetiL 500 MG TABLET PO ×2 (08:20→21:58)
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
[2024-02-01 20:00] VITALS: BP 148/73; PULSE 93; RESP 16; TEMP 37.2; O2SAT 98
[2024-02-01] MEDS: Melatonin 3 MG TABLET 9 MG PO (21:56)
[2024-02-01] MEDS: Donepezil HCl 10 MG TABLET PO (21:57)
[2024-02-01] MEDS: Mirtazapine 7.5 MG TABLET PO (21:57)
[2024-02-02 07:25] VITALS: BP 165/82; PULSE 84; RESP 16; TEMP 36.7; O2SAT 100
[2024-02-02] MEDS: Cariprazine HCl 3 MG CAPSULE PO (08:16)
[2024-02-02] MEDS: carBAMazepine ER 100 MG TAB.ER.12H PO (08:16)
[2024-02-02] MEDS: cefuroxime axetiL 500 MG TABLET PO ×2 (08:16→21:11)
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
[2024-02-02] MEDS: Lidocaine 4 % Patch ADH..PATCH 1 PATCH TRANSDERMA (14:32)
[2024-02-02 20:00] VITALS: BP 132/68; PULSE 100; RESP 16; TEMP 36.9; O2SAT 97
[2024-02-02] MEDS: carBAMazepine ER 100 MG TAB.ER.12H 150 MG PO (21:10)
[2024-02-02] MEDS: Mirtazapine 7.5 MG TABLET PO (21:11)
[2024-02-02] MEDS: Donepezil HCl 10 MG TABLET PO (21:11)
[2024-02-02] MEDS: Melatonin 3 MG TABLET 9 MG PO (21:11)
[2024-02-03] MEDS: Acetaminophen 325 MG TABLET 650 MG PO (04:38)
[2024-02-03] MEDS: Lidocaine 4 % Patch ADH..PATCH 1 PATCH TRANSDERMA (06:49)
[2024-02-03 07:10] VITALS: BP 165/83; PULSE 82; RESP 16; TEMP 36.4; O2SAT 100
[2024-02-03] MEDS: carBAMazepine ER 100 MG TAB.ER.12H 150 MG PO ×2 (08:39→21:56)
[2024-02-03] MEDS: Cariprazine HCl 3 MG CAPSULE PO (08:39)
[2024-02-03] MEDS: cefuroxime axetiL 500 MG TABLET PO ×2 (08:39→21:56)
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
[2024-02-03 21:08] VITALS: BP 130/71; PULSE 97; RESP 16; TEMP 36.3; O2SAT 99
[2024-02-03] MEDS: Donepezil HCl 10 MG TABLET PO (21:55)
[2024-02-03] MEDS: Melatonin 3 MG TABLET 9 MG PO (21:55)
[2024-02-03] MEDS: Mirtazapine 7.5 MG TABLET PO (21:55)
[2024-02-04] MEDS: Acetaminophen 325 MG TABLET 650 MG PO ×2 (04:40→22:51)
[2024-02-04 07:00] VITALS: BMI 26.8
[2024-02-04 07:15] VITALS: BP 148/65; PULSE 83; RESP 20; TEMP 36.5; O2SAT 99
[2024-02-04] MEDS: Lidocaine 4 % Patch ADH..PATCH 1 PATCH TRANSDERMA (08:42)
[2024-02-04] MEDS: carBAMazepine ER 100 MG TAB.ER.12H 150 MG PO ×2 (08:43→23:06)
[2024-02-04] MEDS: Cariprazine HCl 3 MG CAPSULE PO (08:43)
[2024-02-04] MEDS: cefuroxime axetiL 500 MG TABLET PO ×2 (08:43→23:06)
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
[2024-02-04 19:34] VITALS: BP 123/58; PULSE 95; RESP 16; TEMP 36.4; O2SAT 100
[2024-02-04] MEDS: Melatonin 3 MG TABLET 9 MG PO (23:06)
[2024-02-04] MEDS: Donepezil HCl 10 MG TABLET PO (23:06)
[2024-02-04] MEDS: Mirtazapine 7.5 MG TABLET PO (23:06)
[2024-02-05] MEDS: Acetaminophen 325 MG TABLET 650 MG PO (06:23)
[2024-02-05 07:56] VITALS: BP 142/79; PULSE 83; RESP 16; TEMP 36.4; O2SAT 99
[2024-02-05] MEDS: Lidocaine 4 % Patch ADH..PATCH 1 PATCH TRANSDERMA (08:29)
[2024-02-05] MEDS: Cariprazine HCl 3 MG CAPSULE PO ×2 (08:29→21:45)
[2024-02-05] MEDS: carBAMazepine 100 MG TAB.CHEW 50 MG PO ×2 (12:02→21:45)
[2024-02-05] MEDS: carBAMazepine ER 100 MG TAB.ER.12H PO ×2 (12:03→21:45)
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
[2024-02-05 20:00] VITALS: BP 119/67; PULSE 100; RESP 16; TEMP 36.2; O2SAT 98
[2024-02-05] MEDS: Melatonin 3 MG TABLET 9 MG PO (21:43)
[2024-02-05] MEDS: Donepezil HCl 10 MG TABLET PO (21:43)
[2024-02-05] MEDS: Mirtazapine 7.5 MG TABLET PO (21:46)
[2024-02-06] MEDS: Acetaminophen 325 MG TABLET 650 MG PO ×3 (05:43→23:18)
[2024-02-06 07:56] VITALS: BP 182/81; PULSE 87; RESP 16; TEMP 36.3; O2SAT 100
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
[2024-02-06] MEDS: carBAMazepine ER 100 MG TAB.ER.12H PO ×2 (08:41→22:01)
[2024-02-06] MEDS: Lidocaine 4 % Patch ADH..PATCH 1 PATCH TRANSDERMA (08:42)
[2024-02-06] MEDS: carBAMazepine 100 MG TAB.CHEW 50 MG PO ×2 (08:42→22:02)
[2024-02-06 20:00] VITALS: BP 138/73; PULSE 92; RESP 16; TEMP 37.1; O2SAT 100
[2024-02-06] MEDS: Melatonin 3 MG TABLET 9 MG PO (22:00)
[2024-02-06] MEDS: Cariprazine HCl 3 MG CAPSULE PO (22:01)
[2024-02-06] MEDS: Mirtazapine 7.5 MG TABLET PO (22:01)
[2024-02-06] MEDS: Donepezil HCl 10 MG TABLET PO (22:02)
[2024-02-07 07:36] VITALS: BP 138/75; PULSE 81; RESP 16; TEMP 36.1; O2SAT 100
[2024-02-07] MEDS: carBAMazepine 100 MG TAB.CHEW 50 MG PO ×2 (08:05→21:43)
[2024-02-07] MEDS: carBAMazepine ER 100 MG TAB.ER.12H PO ×2 (08:05→21:43)
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
[2024-02-07 11:33] VITALS: BP 131/79; PULSE 95
[2024-02-07] MEDS: Cariprazine HCl 3 MG CAPSULE PO (11:36)
[2024-02-07] MEDS: Furosemide 20 MG TABLET PO (11:36)
[2024-02-07] MEDS: Acetaminophen 325 MG TABLET 650 MG PO (12:39)
[2024-02-07 19:28] VITALS: BP 128/73; PULSE 95; RESP 18; TEMP 36.4; O2SAT 96
[2024-02-07] MEDS: Mirtazapine 7.5 MG TABLET PO (21:42)
[2024-02-07] MEDS: OLANZapine 5 MG TABLET PO (21:42)
[2024-02-07] MEDS: Donepezil HCl 10 MG TABLET PO (21:43)
[2024-02-07] MEDS: Melatonin 3 MG TABLET 9 MG PO (21:43)
[2024-02-08] MEDS: Acetaminophen 325 MG TABLET 650 MG PO ×2 (01:29→18:20)
[2024-02-08 07:25] VITALS: BP 111/58; PULSE 83; RESP 20; TEMP 36; O2SAT 98
[2024-02-08] MEDS: Lidocaine 4 % Patch ADH..PATCH 1 PATCH TRANSDERMA (08:07)
[2024-02-08] MEDS: carBAMazepine ER 100 MG TAB.ER.12H PO ×2 (08:09→22:34)
[2024-02-08] MEDS: Furosemide 20 MG TABLET PO (08:09)
[2024-02-08] MEDS: Cariprazine HCl 3 MG CAPSULE PO (08:09)
[2024-02-08] MEDS: carBAMazepine 100 MG TAB.CHEW 50 MG PO ×2 (08:20→22:33)
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
[2024-02-08 19:29] VITALS: BP 133/69; PULSE 99; TEMP 36.8; O2SAT 97
[2024-02-08] MEDS: OLANZapine 5 MG TABLET PO ×2 (22:33→22:35)
[2024-02-08] MEDS: Mirtazapine 7.5 MG TABLET PO (22:33)
[2024-02-08] MEDS: Melatonin 3 MG TABLET 9 MG PO (22:33)
[2024-02-08] MEDS: Donepezil HCl 10 MG TABLET PO (22:34)
[2024-02-09] MEDS: Acetaminophen 325 MG TABLET 650 MG PO ×3 (00:34→22:21)
[2024-02-09 07:45] VITALS: BP 142/78; PULSE 92; RESP 16; TEMP 36.3; O2SAT 99
[2024-02-09 08:23] VITALS: BP 142/78
[2024-02-09] MEDS: carBAMazepine 100 MG TAB.CHEW 50 MG PO ×2 (08:23→22:20)
[2024-02-09] MEDS: carBAMazepine ER 100 MG TAB.ER.12H PO ×2 (08:23→22:21)
[2024-02-09] MEDS: Furosemide 20 MG TABLET PO (08:23)
[2024-02-09] MEDS: Cariprazine HCl 3 MG CAPSULE PO (08:23)
[2024-02-09] MEDS: Lidocaine 4 % Patch ADH..PATCH 1 PATCH TRANSDERMA (09:20)
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
[2024-02-09] MEDS: Nystatin Powder 15 GM BOTTLE 1 APPL TOPICAL ×2 (16:02→22:26)
[2024-02-09 19:46] VITALS: BP 133/63; PULSE 99; RESP 16; TEMP 36.6; O2SAT 98
[2024-02-09 20:11] LABS: MANUAL DIFF FLAG NO
[2024-02-09 20:13] LABS: Basophils Absolute Auto 0.1 X10*3/uL (0.0-0.2); Basophils Percent Auto 0.5 % (0-2); Eosinophils Absolute Auto 0.1 X10*3/uL (0.0-0.4); Eosinophils Percent Auto 1.2 % (0-4); Hematocrit 38.5 % (37.0-47.0); Hemoglobin 12.3 g/dl (12.0-16.0); Imm Gran Abs Auto 0.06 X10*3/uL (0.00-0.03); Imm Gran Pct Auto 0.7 % (0.0-0.4); Lymphocytes Absolute Auto 2.4 X10*3/uL (1.2-4.9); Lymphocytes Percent Auto 26.6 % (20-40); Mean Corpuscular HGB Conc 31.9 g/dl (31.0-35.0); Mean Corpuscular Hemoglobin 29.1 pg (27.0-33.0); Mean Platelet Volume 9.2 fL (9.4-12.3); Monocytes Absolute Auto 0.6 X10*3/uL (0.1-1.2); Monocytes Percent Auto 6.6 % (2-11); Neutrophils Absolute Auto 5.9 x10*3/uL (2.0-8.3); Neutrophils Percent Auto 64.4 % (45-73); Platelet Count 381 X10*3/uL (160-400); Red Blood Count 4.23 X10*6/uL (4.20-5.50); Red Cell Distribution Width 13.9 % (11.0-16.0); White Blood Count 9.2 X10*3/uL (4.8-10.8)
[2024-02-09 20:34] LABS: Alanine Aminotransferase 38 U/L (0-31); Albumin Level 4.1 g/dL (3.5-5.0); Alkaline Phosphatase 94 U/L (39-117); Anion Gap 12 (12-20); Aspartate Amino Transferase 35 U/L (5-31); Bilirubin Direct < 0.2 mg/dL (0.0-0.5); Bilirubin Total 0.2 mg/dL (0.0-1.0); Blood Urea Nitrogen 36 mg/dL (9-16); Calcium 9.1 mg/dL (8.4-10.2); Carbon Dioxide 27 mmol/L (22-29); Chloride 106 mmol/L (96-108); Creatinine Clr Calc Pharmacy 60.1; Estimated Glomerular Filt Rate > 60; Glucose Random 104 mg/dL (60-115); Potassium 4.3 mmol/L (3.3-5.1); Sodium 141 mmol/L (135-145); Total Protein 7.5 g/dL (6.5-8.0)
[2024-02-09 20:35] LABS: Carbamazepine Tegretol 6.9 mcg/mL (5.0-12.0)
[2024-02-09] MEDS: Melatonin 3 MG TABLET 9 MG PO (22:18)
[2024-02-09] MEDS: Donepezil HCl 10 MG TABLET PO (22:20)
[2024-02-09] MEDS: Mirtazapine 7.5 MG TABLET PO (22:20)
[2024-02-10] MEDS: Nystatin Powder 15 GM BOTTLE 1 APPL TOPICAL ×3 (06:16→21:10)
[2024-02-10 07:10] VITALS: BP 154/85; PULSE 91; RESP 18; TEMP 36.1; O2SAT 99
[2024-02-10] MEDS: Furosemide 20 MG TABLET PO (08:09)
[2024-02-10] MEDS: carBAMazepine ER 100 MG TAB.ER.12H PO (08:10)
[2024-02-10] MEDS: carBAMazepine 100 MG TAB.CHEW 50 MG PO (08:10)
[2024-02-10] MEDS: Cariprazine HCl 3 MG CAPSULE PO (08:10)
[2024-02-10] MEDS: Acetaminophen 325 MG TABLET 650 MG PO (11:31)
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
[2024-02-10 20:00] VITALS: BP 136/72; PULSE 94; RESP 16; TEMP 36.4; O2SAT 99
[2024-02-10] MEDS: HaloperidoL 5 MG TABLET PO (21:08)
[2024-02-10] MEDS: Melatonin 3 MG TABLET 9 MG PO (21:08)
[2024-02-10] MEDS: Donepezil HCl 10 MG TABLET PO (21:08)
[2024-02-10] MEDS: Mirtazapine 7.5 MG TABLET PO (21:09)
[2024-02-10] MEDS: carBAMazepine ER 200 MG TAB.ER.12H PO (21:10)
[2024-02-11 07:00] VITALS: BMI 28.2
[2024-02-11 07:37] VITALS: BP 127/74; PULSE 84; RESP 18; TEMP 36.4; O2SAT 99
[2024-02-11 08:36] VITALS: BP 127/74
[2024-02-11] MEDS: carBAMazepine ER 100 MG TAB.ER.12H PO (08:36)
[2024-02-11] MEDS: Cariprazine HCl 3 MG CAPSULE PO (08:36)
[2024-02-11] MEDS: Furosemide 20 MG TABLET PO (08:36)
[2024-02-11 13:19] LABS: Appearance Urine Clear; Color Urine Yellow; Glucose Urine UA Negative (Negative); Leukocyte Esterase Urine Moderate (2+) (Negative); Nitrite Urine Negative (Negative); UMIC TRIGGER UACC YES; Urine Blood Negative (Negative); Urine Ketones Negative (Negative); Urine Protein Negative (Neg-Trace)
[2024-02-11 13:25] LABS: Bacteria Urine None Seen (None Seen); Hyaline Casts Urine 0-2 /LPF (0-2); RBC Urine 0-2 /HPF (0-2); Squamous Epithelial Cell Urine 0-2 /HPF (0-2); UACC Culture Trigger YES
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
[2024-02-11] MEDS: Nystatin Powder 15 GM BOTTLE 1 APPL TOPICAL ×2 (14:59→21:53)
[2024-02-11 20:15] VITALS: BP 118/65; PULSE 90; RESP 16; TEMP 36.7; O2SAT 99
[2024-02-11] MEDS: HaloperidoL 5 MG TABLET PO (21:53)
[2024-02-11] MEDS: Melatonin 3 MG TABLET 9 MG PO (21:53)
[2024-02-11] MEDS: Mirtazapine 7.5 MG TABLET PO (21:53)
[2024-02-11] MEDS: carBAMazepine ER 200 MG TAB.ER.12H PO (21:54)
[2024-02-11] MEDS: Donepezil HCl 10 MG TABLET PO (21:54)
[2024-02-11] MEDS: hydrOXYzine HCL 25 MG TABLET PO (21:56)
[2024-02-12] MEDS: Acetaminophen 325 MG TABLET 650 MG PO ×2 (06:29→15:06)
[2024-02-12 07:48] VITALS: BP 121/73; PULSE 89; RESP 16; TEMP 36.3; O2SAT 99
[2024-02-12] MEDS: Cariprazine HCl 1.5 MG CAPSULE PO (08:43)
[2024-02-12] MEDS: Furosemide 20 MG TABLET PO (08:43)
[2024-02-12] MEDS: carBAMazepine ER 100 MG TAB.ER.12H PO (08:44)
[2024-02-12] MEDS: Nystatin Powder 15 GM BOTTLE 1 APPL TOPICAL ×2 (08:46→23:02)
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
[2024-02-12 19:30] VITALS: BP 143/91; PULSE 102; RESP 18; TEMP 36.8; O2SAT 96
[2024-02-12] MEDS: Mirtazapine 7.5 MG TABLET PO (22:39)
[2024-02-12] MEDS: Donepezil HCl 10 MG TABLET PO (22:39)
[2024-02-12] MEDS: carBAMazepine ER 200 MG TAB.ER.12H PO (22:39)
[2024-02-12] MEDS: Melatonin 3 MG TABLET 9 MG PO (22:39)
[2024-02-12] MEDS: HaloperidoL 5 MG TABLET PO (22:40)
[2024-02-13 07:25] VITALS: BP 126/67; PULSE 88; RESP 16; TEMP 36.4; O2SAT 99
[2024-02-13 08:53] VITALS: BP 126/67
[2024-02-13] MEDS: Cariprazine HCl 1.5 MG CAPSULE PO (08:53)
[2024-02-13] MEDS: Furosemide 20 MG TABLET PO (08:53)
[2024-02-13] MEDS: carBAMazepine ER 100 MG TAB.ER.12H PO (08:53)
[2024-02-13] MEDS: Nystatin Powder 15 GM BOTTLE 1 APPL TOPICAL ×2 (08:53→23:42)
[2024-02-13] MEDS: Acetaminophen 325 MG TABLET 650 MG PO (17:47)
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
[2024-02-13 19:34] VITALS: BP 115/73; PULSE 102; RESP 16; TEMP 36.4; O2SAT 98
[2024-02-13] MEDS: hydrOXYzine HCL 25 MG TABLET PO (23:25)
[2024-02-13] MEDS: LORazepam 1 MG TABLET 2 MG PO (23:25)
[2024-02-13] MEDS: Donepezil HCl 10 MG TABLET PO (23:26)
[2024-02-13] MEDS: carBAMazepine ER 200 MG TAB.ER.12H PO (23:26)
[2024-02-13] MEDS: Mirtazapine 7.5 MG TABLET PO (23:26)
[2024-02-13] MEDS: traZODone HCL 50 MG TABLET PO (23:26)
[2024-02-13] MEDS: HaloperidoL 5 MG TABLET PO (23:26)
[2024-02-13] MEDS: Melatonin 3 MG TABLET 9 MG PO (23:26)
[2024-02-14 07:32] VITALS: BP 120/57; PULSE 76; RESP 14; TEMP 36.4; O2SAT 98
[2024-02-14] MEDS: Furosemide 20 MG TABLET PO (08:22)
[2024-02-14] MEDS: Nystatin Powder 15 GM BOTTLE 1 APPL TOPICAL ×3 (08:22→21:56)
[2024-02-14] MEDS: carBAMazepine ER 100 MG TAB.ER.12H PO (08:22)
[2024-02-14] MEDS: Acetaminophen 325 MG TABLET 650 MG PO (11:01)
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
[2024-02-14 19:35] VITALS: BP 113/67; PULSE 95; RESP 16; TEMP 36.7; O2SAT 99
[2024-02-14] MEDS: carBAMazepine ER 200 MG TAB.ER.12H PO (21:33)
[2024-02-14] MEDS: Melatonin 3 MG TABLET 9 MG PO (21:33)
[2024-02-14] MEDS: Mirtazapine 7.5 MG TABLET PO (21:33)
[2024-02-14] MEDS: hydrOXYzine HCL 25 MG TABLET PO (21:33)
[2024-02-14] MEDS: Donepezil HCl 10 MG TABLET PO (21:33)
[2024-02-14] MEDS: LORazepam 1 MG TABLET 2 MG PO (21:33)
[2024-02-14] MEDS: HaloperidoL 5 MG TABLET PO (21:34)
[2024-02-15 07:40] VITALS: BP 108/61; PULSE 82; RESP 16; TEMP 36.4; O2SAT 94
[2024-02-15] MEDS: Furosemide 20 MG TABLET PO (08:13)
[2024-02-15] MEDS: Nystatin Powder 15 GM BOTTLE 1 APPL TOPICAL ×2 (08:13→23:02)
[2024-02-15] MEDS: carBAMazepine ER 100 MG TAB.ER.12H PO (08:13)
[2024-02-15] MEDS: Acetaminophen 325 MG TABLET 650 MG PO (10:03)
[2024-02-15] MEDS: Lidocaine 4 % Patch ADH..PATCH 1 PATCH TRANSDERMA (14:33)
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
[2024-02-15 20:00] VITALS: BP 122/61; PULSE 94; RESP 16; TEMP 36.8; O2SAT 98
[2024-02-15] MEDS: LORazepam 0.5 MG TABLET 1.5 MG PO (22:59)
[2024-02-15] MEDS: Mirtazapine 7.5 MG TABLET PO (23:00)
[2024-02-15] MEDS: Melatonin 3 MG TABLET 9 MG PO (23:00)
[2024-02-15] MEDS: HaloperidoL 5 MG TABLET PO (23:01)
[2024-02-15] MEDS: carBAMazepine ER 200 MG TAB.ER.12H PO (23:01)
[2024-02-15] MEDS: Donepezil HCl 10 MG TABLET PO (23:01)
[2024-02-16 08:40] VITALS: BP 137/69; PULSE 88; TEMP 36.4; O2SAT 95
[2024-02-16] MEDS: carBAMazepine ER 100 MG TAB.ER.12H PO (08:41)
[2024-02-16] MEDS: Furosemide 20 MG TABLET PO (08:41)
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
[2024-02-16] MEDS: Nystatin Powder 15 GM BOTTLE 1 APPL TOPICAL ×2 (15:11→21:48)
[2024-02-16 19:57] VITALS: BP 136/62; PULSE 100; RESP 16; TEMP 36.8; O2SAT 97
[2024-02-16 21:25] VITALS: BP 124/74; PULSE 94; O2SAT 96
[2024-02-16] MEDS: Melatonin 3 MG TABLET 9 MG PO (21:39)
[2024-02-16] MEDS: carBAMazepine ER 200 MG TAB.ER.12H PO (21:40)
[2024-02-16] MEDS: LORazepam 1 MG TABLET PO (21:40)
[2024-02-16] MEDS: HaloperidoL 5 MG TABLET PO (21:40)
[2024-02-16] MEDS: hydrOXYzine HCL 25 MG TABLET PO (21:41)
[2024-02-16] MEDS: Donepezil HCl 10 MG TABLET PO (21:41)
[2024-02-16] MEDS: Mirtazapine 7.5 MG TABLET PO (21:41)
[2024-02-17 07:50] VITALS: BP 112/63; PULSE 75; RESP 14; TEMP 36.8; O2SAT 97
[2024-02-17 08:40] VITALS: BP 112/63
[2024-02-17] MEDS: carBAMazepine ER 100 MG TAB.ER.12H PO (08:40)
[2024-02-17] MEDS: Furosemide 20 MG TABLET PO (08:40)
[2024-02-17] MEDS: Acetaminophen 325 MG TABLET 650 MG PO ×2 (12:07→18:37)
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
[2024-02-17] MEDS: Nystatin Powder 15 GM BOTTLE 1 APPL TOPICAL ×2 (15:04→22:42)
[2024-02-17 19:50] VITALS: BP 133/63; PULSE 84; RESP 16; TEMP 36.4; O2SAT 98
[2024-02-17] MEDS: Donepezil HCl 10 MG TABLET PO (22:35)
[2024-02-17] MEDS: LORazepam 1 MG TABLET PO (22:36)
[2024-02-17] MEDS: Melatonin 3 MG TABLET 9 MG PO (22:36)
[2024-02-17] MEDS: HaloperidoL 5 MG TABLET PO (22:37)
[2024-02-17] MEDS: Mirtazapine 7.5 MG TABLET PO (22:37)
[2024-02-17] MEDS: carBAMazepine ER 200 MG TAB.ER.12H PO (22:37)
[2024-02-18 08:00] VITALS: BP 123/65; PULSE 81; RESP 18; O2SAT 97
[2024-02-18 08:30] VITALS: BP 123/65
[2024-02-18] MEDS: carBAMazepine ER 100 MG TAB.ER.12H PO ×2 (08:30→21:58)
[2024-02-18] MEDS: Furosemide 20 MG TABLET PO (08:30)
[2024-02-18 09:00] VITALS: BMI 28.5
[2024-02-18] MEDS: Acetaminophen 325 MG TABLET 650 MG PO (13:18)
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
[2024-02-18] MEDS: Nystatin Powder 15 GM BOTTLE 1 APPL TOPICAL ×2 (15:22→21:58)
[2024-02-18 19:40] VITALS: BP 120/70; PULSE 96; RESP 18; TEMP 36.8; O2SAT 97
[2024-02-18] MEDS: Mirtazapine 7.5 MG TABLET PO (21:57)
[2024-02-18] MEDS: HaloperidoL 5 MG TABLET PO (21:58)
[2024-02-18] MEDS: Melatonin 3 MG TABLET 9 MG PO (21:58)
[2024-02-18] MEDS: LORazepam 0.5 MG TABLET PO (21:58)
[2024-02-18] MEDS: hydrOXYzine HCL 25 MG TABLET PO (21:58)
[2024-02-18] MEDS: Donepezil HCl 10 MG TABLET PO (22:10)
[2024-02-19 07:38] VITALS: BP 130/72; PULSE 87; RESP 16; TEMP 36.4; O2SAT 95
[2024-02-19] MEDS: Furosemide 20 MG TABLET PO (08:02)
[2024-02-19] MEDS: carBAMazepine ER 100 MG TAB.ER.12H PO ×2 (08:02→20:17)
[2024-02-19] MEDS: Nystatin Powder 15 GM BOTTLE 1 APPL TOPICAL ×2 (08:36→20:19)
[2024-02-19] MEDS: carBAMazepine 100 MG TAB.CHEW 50 MG PO (11:33)
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
[2024-02-19 20:00] VITALS: BP 139/86; PULSE 92; RESP 14; TEMP 36.6; O2SAT 95
[2024-02-19] MEDS: Melatonin 3 MG TABLET 9 MG PO (20:17)
[2024-02-19] MEDS: HaloperidoL 5 MG TABLET PO (20:17)
[2024-02-19] MEDS: Donepezil HCl 10 MG TABLET PO (20:17)
[2024-02-19] MEDS: Mirtazapine 7.5 MG TABLET PO (20:17)
[2024-02-19] MEDS: LORazepam 0.5 MG TABLET PO (20:17)
[2024-02-20 08:12] VITALS: BP 132/72; PULSE 93; RESP 14; TEMP 36.4; O2SAT 93
[2024-02-20] MEDS: Furosemide 20 MG TABLET PO (08:56)
[2024-02-20] MEDS: carBAMazepine ER 100 MG TAB.ER.12H PO ×2 (08:57→20:58)
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
[2024-02-20] MEDS: Nystatin Powder 15 GM BOTTLE 1 APPL TOPICAL ×2 (14:12→20:59)
[2024-02-20 20:00] VITALS: BP 142/83; PULSE 83; RESP 18; TEMP 36.8; O2SAT 95
[2024-02-20] MEDS: carBAMazepine 100 MG TAB.CHEW 50 MG PO (20:58)
[2024-02-20] MEDS: Melatonin 3 MG TABLET 9 MG PO (20:59)
[2024-02-20] MEDS: LORazepam 0.5 MG TABLET PO (21:00)
[2024-02-20] MEDS: Donepezil HCl 10 MG TABLET PO (21:00)
[2024-02-20] MEDS: Mirtazapine 7.5 MG TABLET PO (21:00)
[2024-02-20] MEDS: HaloperidoL 5 MG TABLET PO (21:01)
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
[2024-02-21 08:20] VITALS: BP 129/73; PULSE 95; RESP 14; TEMP 36.4; O2SAT 93
[2024-02-21] MEDS: carBAMazepine ER 100 MG TAB.ER.12H PO ×2 (08:54→20:48)
[2024-02-21] MEDS: Furosemide 20 MG TABLET PO (08:54)
[2024-02-21 19:25] VITALS: BP 144/82; PULSE 84; RESP 16; TEMP 36.6; O2SAT 96
[2024-02-21] MEDS: Mirtazapine 7.5 MG TABLET PO (20:48)
[2024-02-21] MEDS: carBAMazepine 100 MG TAB.CHEW 50 MG PO (20:48)
[2024-02-21] MEDS: Donepezil HCl 10 MG TABLET PO (20:48)
[2024-02-21] MEDS: HaloperidoL 5 MG TABLET PO (20:48)
[2024-02-21] MEDS: LORazepam 0.5 MG TABLET PO (20:48)
[2024-02-21] MEDS: Melatonin 3 MG TABLET 9 MG PO (20:48)
[2024-02-21] MEDS: Nystatin Powder 15 GM BOTTLE 1 APPL TOPICAL (21:58)
[2024-02-22 07:05] VITALS: BP 113/66; PULSE 92; RESP 16; TEMP 37.2; O2SAT 95
[2024-02-22 08:34] VITALS: BP 113/66
[2024-02-22] MEDS: Furosemide 20 MG TABLET PO (08:34)
[2024-02-22] MEDS: carBAMazepine ER 100 MG TAB.ER.12H PO ×2 (08:34→21:41)
[2024-02-22] MEDS: buPROPion HCl XL 150 MG TAB.ER.24H PO (14:05)
[2024-02-22] MEDS: Cariprazine HCl 1.5 MG CAPSULE PO (14:05)
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
[2024-02-22 19:15] VITALS: BP 149/88; PULSE 85; RESP 16; TEMP 36.8; O2SAT 97
[2024-02-22] MEDS: Mirtazapine 7.5 MG TABLET PO (21:41)
[2024-02-22] MEDS: Melatonin 3 MG TABLET 9 MG PO (21:41)
[2024-02-22] MEDS: HaloperidoL 1 MG TABLET 4 MG PO (21:41)
[2024-02-22] MEDS: Donepezil HCl 10 MG TABLET PO (21:41)
[2024-02-22] MEDS: Nystatin Powder 15 GM BOTTLE 1 APPL TOPICAL (23:11)
[2024-02-23 07:58] VITALS: BP 127/62; PULSE 90; RESP 16; TEMP 36.8; O2SAT 93
[2024-02-23] MEDS: Furosemide 20 MG TABLET PO (08:51)
[2024-02-23] MEDS: buPROPion HCl XL 150 MG TAB.ER.24H PO (08:51)
[2024-02-23] MEDS: carBAMazepine ER 100 MG TAB.ER.12H PO ×2 (08:51→21:26)
[2024-02-23] MEDS: Cariprazine HCl 1.5 MG CAPSULE PO (08:51)
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
[2024-02-23 20:00] VITALS: BP 135/74; PULSE 84; RESP 16; TEMP 36.4; O2SAT 98
[2024-02-23] MEDS: Melatonin 3 MG TABLET 9 MG PO (21:23)
[2024-02-23] MEDS: Mirtazapine 7.5 MG TABLET PO (21:24)
[2024-02-23] MEDS: HaloperidoL 1 MG TABLET 3 MG PO (21:25)
[2024-02-23] MEDS: Donepezil HCl 10 MG TABLET PO (21:27)
[2024-02-23] MEDS: Nystatin Powder 15 GM BOTTLE 1 APPL TOPICAL (21:27)
[2024-02-24 08:15] VITALS: BP 131/76; PULSE 94; RESP 16; TEMP 36.8; O2SAT 94
[2024-02-24 08:25] VITALS: BP 131/76
[2024-02-24] MEDS: Furosemide 20 MG TABLET PO (08:25)
[2024-02-24] MEDS: carBAMazepine ER 100 MG TAB.ER.12H PO ×2 (08:26→21:14)
[2024-02-24] MEDS: buPROPion HCl XL 150 MG TAB.ER.24H PO (08:26)
[2024-02-24] MEDS: Cariprazine HCl 3 MG CAPSULE PO (08:26)
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
[2024-02-24 20:00] VITALS: BP 140/70; PULSE 83; RESP 16; TEMP 36.6; O2SAT 97
[2024-02-24] MEDS: HaloperidoL 1 MG TABLET 2 MG PO (21:14)
[2024-02-24] MEDS: Donepezil HCl 10 MG TABLET PO (21:14)
[2024-02-24] MEDS: Melatonin 3 MG TABLET 9 MG PO (21:15)
[2024-02-24] MEDS: Mirtazapine 7.5 MG TABLET PO (21:16)
[2024-02-24] MEDS: Nystatin Powder 15 GM BOTTLE 1 APPL TOPICAL (21:32)
[2024-02-25 07:00] VITALS: BMI 27.1
[2024-02-25 07:41] VITALS: BP 126/76; PULSE 80; RESP 16; TEMP 36.8; O2SAT 98
[2024-02-25] MEDS: Furosemide 20 MG TABLET PO (08:24)
[2024-02-25] MEDS: carBAMazepine ER 100 MG TAB.ER.12H PO ×2 (08:24→21:26)
[2024-02-25] MEDS: buPROPion HCl XL 150 MG TAB.ER.24H PO (08:24)
[2024-02-25] MEDS: Cariprazine HCl 3 MG CAPSULE PO (08:25)
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
[2024-02-25 20:00] VITALS: BP 131/72; PULSE 80; RESP 18; TEMP 36.6; O2SAT 97
[2024-02-25] MEDS: Melatonin 3 MG TABLET 9 MG PO (21:25)
[2024-02-25] MEDS: Donepezil HCl 10 MG TABLET PO (21:26)
[2024-02-25] MEDS: HaloperidoL 1 MG TABLET PO (21:26)
[2024-02-25] MEDS: Nystatin Powder 15 GM BOTTLE 1 APPL TOPICAL (21:27)
[2024-02-25] MEDS: Mirtazapine 7.5 MG TABLET PO (21:27)
[2024-02-26 07:42] VITALS: BP 119/66; PULSE 91; RESP 16; TEMP 36.9; O2SAT 94
[2024-02-26] MEDS: carBAMazepine ER 100 MG TAB.ER.12H PO ×2 (08:17→21:23)
[2024-02-26] MEDS: buPROPion HCl XL 300 MG TAB.ER.24H PO (08:17)
[2024-02-26] MEDS: Furosemide 20 MG TABLET PO (08:17)
[2024-02-26] MEDS: Cariprazine HCl 3 MG CAPSULE PO (08:17)
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
[2024-02-26 19:45] VITALS: BP 134/80; PULSE 75; RESP 16; TEMP 36.4; O2SAT 94
[2024-02-26] MEDS: Melatonin 3 MG TABLET 9 MG PO (21:22)
[2024-02-26] MEDS: Donepezil HCl 10 MG TABLET PO (21:23)
[2024-02-26] MEDS: Mirtazapine 7.5 MG TABLET PO (21:23)
[2024-02-27 07:39] VITALS: BP 114/58; PULSE 94; RESP 16; TEMP 36.6; O2SAT 93
[2024-02-27] MEDS: carBAMazepine ER 100 MG TAB.ER.12H PO ×2 (08:09→23:11)
[2024-02-27] MEDS: buPROPion HCl XL 300 MG TAB.ER.24H PO (08:09)
[2024-02-27] MEDS: Cariprazine HCl 3 MG CAPSULE PO (08:09)
[2024-02-27] MEDS: Furosemide 20 MG TABLET PO (08:09)
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
[2024-02-27 21:45] VITALS: BP 134/63; PULSE 80; RESP 16; TEMP 36.5; O2SAT 98
[2024-02-27] MEDS: Melatonin 3 MG TABLET 9 MG PO (23:12)
[2024-02-27] MEDS: Mirtazapine 7.5 MG TABLET PO (23:12)
[2024-02-27] MEDS: Donepezil HCl 10 MG TABLET PO (23:12)
[2024-02-28 07:35] VITALS: BP 111/56; PULSE 86; RESP 14; TEMP 36.8; O2SAT 94
[2024-02-28 10:04] VITALS: BP 111/56
[2024-02-28] MEDS: buPROPion HCl XL 300 MG TAB.ER.24H PO (10:04)
[2024-02-28] MEDS: Furosemide 20 MG TABLET PO (10:04)
[2024-02-28] MEDS: carBAMazepine ER 100 MG TAB.ER.12H PO ×2 (10:04→21:21)
[2024-02-28] MEDS: Cariprazine HCl 3 MG CAPSULE PO (10:04)
[2024-02-28] MEDS: Milk of Magnesia 30 ML ORAL.SUSP PO (11:41)
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
[2024-02-28 19:54] VITALS: BP 141/77; PULSE 80; RESP 16; TEMP 36.6; O2SAT 98
[2024-02-28] MEDS: Donepezil HCl 10 MG TABLET PO (21:21)
[2024-02-28] MEDS: Mirtazapine 7.5 MG TABLET PO (21:21)
[2024-02-28] MEDS: Melatonin 3 MG TABLET 9 MG PO (21:21)
[2024-02-29 07:26] VITALS: BP 125/64; PULSE 77; RESP 14; TEMP 36.8; O2SAT 96
[2024-02-29] MEDS: buPROPion HCl XL 300 MG TAB.ER.24H PO (08:09)
[2024-02-29] MEDS: Furosemide 20 MG TABLET PO (08:10)
[2024-02-29] MEDS: carBAMazepine ER 100 MG TAB.ER.12H PO ×2 (08:10→21:22)
[2024-02-29] MEDS: Cariprazine HCl 1.5 MG CAPSULE 3 MG PO (08:19)
[2024-02-29 13:09] LABS: COVID-19 Test Negative (Negative); IDNOW Serial# 9DB6401D
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
[2024-02-29 20:00] VITALS: BP 134/75; PULSE 74; RESP 18; TEMP 36.5; O2SAT 95
[2024-02-29] MEDS: Cariprazine HCl 1.5 MG CAPSULE PO (21:21)
[2024-02-29] MEDS: Mirtazapine 7.5 MG TABLET PO (21:22)
[2024-02-29] MEDS: Melatonin 3 MG TABLET 9 MG PO (21:23)
[2024-02-29] MEDS: Donepezil HCl 10 MG TABLET PO (21:23)
[2024-03-01 07:55] VITALS: BP 125/61; PULSE 89; RESP 16; TEMP 36.4; O2SAT 95
[2024-03-01] MEDS: buPROPion HCl XL 300 MG TAB.ER.24H PO (10:23)
[2024-03-01] MEDS: carBAMazepine ER 100 MG TAB.ER.12H PO ×2 (10:24→20:31)
[2024-03-01 10:27] VITALS: BP 116/57
[2024-03-01 12:55] LABS: COVID-19 Test Negative (Negative); IDNOW Serial# 152EDE1D
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
[2024-03-01 20:00] VITALS: BP 110/63; PULSE 84; RESP 18; TEMP 36.6; O2SAT 95
[2024-03-01] MEDS: Mirtazapine 7.5 MG TABLET PO (20:30)
[2024-03-01] MEDS: Cariprazine HCl 1.5 MG CAPSULE 4.5 MG PO (20:30)
[2024-03-01] MEDS: Melatonin 3 MG TABLET 9 MG PO (20:31)
[2024-03-01] MEDS: Donepezil HCl 10 MG TABLET PO (20:31)
[2024-03-02 07:20] VITALS: BP 109/56; PULSE 82; RESP 16; TEMP 36.7; O2SAT 93
[2024-03-02] MEDS: carBAMazepine ER 100 MG TAB.ER.12H PO ×2 (08:35→21:35)
[2024-03-02] MEDS: buPROPion HCl XL 300 MG TAB.ER.24H PO (08:35)
[2024-03-02 08:36] VITALS: BP 109/56
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
[2024-03-02 20:00] VITALS: BP 112/55; PULSE 87; RESP 16; TEMP 36.8; O2SAT 96
[2024-03-02] MEDS: Donepezil HCl 10 MG TABLET PO (21:35)
[2024-03-02] MEDS: Melatonin 3 MG TABLET 9 MG PO (21:35)
[2024-03-02] MEDS: Mirtazapine 7.5 MG TABLET PO (21:35)
[2024-03-02] MEDS: Cariprazine HCl 1.5 MG CAPSULE 4.5 MG PO (21:36)
[2024-03-03 07:00] VITALS: BMI 26.6
[2024-03-03 07:42] VITALS: BP 146/76; PULSE 76; RESP 16; TEMP 36.8; O2SAT 94
[2024-03-03] MEDS: carBAMazepine ER 100 MG TAB.ER.12H PO ×2 (08:09→21:17)
[2024-03-03] MEDS: buPROPion HCl XL 300 MG TAB.ER.24H PO (08:09)
[2024-03-03] MEDS: Furosemide 20 MG TABLET PO (08:09)
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
[2024-03-03 19:44] VITALS: BP 134/79; PULSE 72; RESP 16; TEMP 36.4; O2SAT 97
[2024-03-03] MEDS: Donepezil HCl 10 MG TABLET PO (21:17)
[2024-03-03] MEDS: Cariprazine HCl 1.5 MG CAPSULE 4.5 MG PO (21:17)
[2024-03-03] MEDS: Mirtazapine 7.5 MG TABLET PO (21:17)
[2024-03-03] MEDS: Melatonin 3 MG TABLET 9 MG PO (21:17)
[2024-03-04 07:05] VITALS: BP 121/61; PULSE 77; RESP 14; TEMP 36.4; O2SAT 98
[2024-03-04 09:13] VITALS: BP 121/61
[2024-03-04] MEDS: Furosemide 20 MG TABLET PO (09:13)
[2024-03-04] MEDS: carBAMazepine ER 100 MG TAB.ER.12H PO ×2 (09:13→21:19)
[2024-03-04] MEDS: buPROPion HCl XL 300 MG TAB.ER.24H PO (09:13)
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
[2024-03-04] MEDS: Cariprazine HCl 3 MG CAPSULE PO ×2 (09:33→21:20)
[2024-03-04 20:00] VITALS: BP 112/69; PULSE 77; RESP 18; TEMP 36.8; O2SAT 96
[2024-03-04] MEDS: Donepezil HCl 10 MG TABLET PO (21:18)
[2024-03-04] MEDS: Mirtazapine 7.5 MG TABLET PO (21:19)
[2024-03-04] MEDS: Melatonin 3 MG TABLET 9 MG PO (21:19)
[2024-03-05 07:15] VITALS: BP 117/57; PULSE 80; RESP 14; TEMP 36.4; O2SAT 95
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
[2024-03-05 09:03] VITALS: BP 117/57
[2024-03-05] MEDS: carBAMazepine ER 100 MG TAB.ER.12H PO ×2 (09:03→21:06)
[2024-03-05] MEDS: buPROPion HCl XL 300 MG TAB.ER.24H PO (09:03)
[2024-03-05] MEDS: Furosemide 20 MG TABLET PO (09:03)
[2024-03-05] MEDS: Cariprazine HCl 3 MG CAPSULE PO ×2 (09:08→21:06)
[2024-03-05] MEDS: Nystatin Powder 15 GM BOTTLE 1 APPL TOPICAL (15:54)
[2024-03-05 19:45] VITALS: BP 116/66; PULSE 80; RESP 18; TEMP 36.3; O2SAT 96
[2024-03-05] MEDS: Mirtazapine 7.5 MG TABLET PO (21:05)
[2024-03-05] MEDS: Donepezil HCl 10 MG TABLET PO (21:06)
[2024-03-05] MEDS: Melatonin 3 MG TABLET 9 MG PO (21:06)
[2024-03-06 07:39] VITALS: BP 108/62; PULSE 77; RESP 16; TEMP 36.8; O2SAT 93
[2024-03-06 08:31] VITALS: BP 108/62
[2024-03-06] MEDS: Cariprazine HCl 3 MG CAPSULE PO ×2 (08:31→21:52)
[2024-03-06] MEDS: Furosemide 20 MG TABLET PO (08:31)
[2024-03-06] MEDS: carBAMazepine ER 100 MG TAB.ER.12H PO ×2 (08:31→21:52)
[2024-03-06] MEDS: buPROPion HCl XL 300 MG TAB.ER.24H PO (08:31)
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
[2024-03-06 19:30] VITALS: BP 118/67; PULSE 86; RESP 18; TEMP 36.4; O2SAT 95
[2024-03-06] MEDS: Melatonin 3 MG TABLET 9 MG PO (21:52)
[2024-03-06] MEDS: Mirtazapine 7.5 MG TABLET PO (21:52)
[2024-03-06] MEDS: Donepezil HCl 10 MG TABLET PO (21:52)
[2024-03-07 07:20] VITALS: BP 112/60; PULSE 76; RESP 16; TEMP 36.4; O2SAT 98
[2024-03-07 08:17] VITALS: BP 112/60
[2024-03-07] MEDS: Furosemide 20 MG TABLET PO (08:17)
[2024-03-07] MEDS: buPROPion HCl XL 300 MG TAB.ER.24H PO (08:17)
[2024-03-07] MEDS: Cariprazine HCl 3 MG CAPSULE PO ×2 (08:18→21:44)
[2024-03-07] MEDS: carBAMazepine ER 100 MG TAB.ER.12H PO ×2 (08:18→21:44)
[2024-03-07 09:30] LABS: Anion Gap 16 (12-20); Blood Urea Nitrogen 29 mg/dL (9-16); Calcium 9.3 mg/dL (8.4-10.2); Carbon Dioxide 25 mmol/L (22-29); Chloride 101 mmol/L (96-108); Creatinine Clr Calc Pharmacy 49.4; Estimated Glomerular Filt Rate 56; Glucose Random 84 mg/dL (60-115); Potassium 3.7 mmol/L (3.3-5.1); Sodium 138 mmol/L (135-145)
[2024-03-07 19:20] VITALS: BP 117/72; PULSE 86; RESP 16; TEMP 36.4; O2SAT 95
[2024-03-07] MEDS: Mirtazapine 7.5 MG TABLET PO (21:44)
[2024-03-07] MEDS: Donepezil HCl 10 MG TABLET PO (21:44)
[2024-03-07] MEDS: Melatonin 3 MG TABLET 9 MG PO (21:44)
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
[2024-03-08 07:27] VITALS: BP 115/60; PULSE 74; RESP 16; TEMP 36.5; O2SAT 98
[2024-03-08] MEDS: carBAMazepine ER 100 MG TAB.ER.12H PO ×2 (09:08→21:04)
[2024-03-08] MEDS: Furosemide 20 MG TABLET PO (09:08)
[2024-03-08] MEDS: buPROPion HCl XL 300 MG TAB.ER.24H PO (09:08)
[2024-03-08] MEDS: Cariprazine HCl 3 MG CAPSULE PO ×2 (09:08→21:05)
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
[2024-03-08 20:00] VITALS: BP 132/81; PULSE 85; TEMP 36.5; O2SAT 98
[2024-03-08] MEDS: Melatonin 3 MG TABLET 9 MG PO (21:04)
[2024-03-08] MEDS: Donepezil HCl 10 MG TABLET PO (21:05)
[2024-03-08] MEDS: Mirtazapine 7.5 MG TABLET PO (21:05)
[2024-03-09 08:00] VITALS: BP 119/58; PULSE 68; RESP 14; TEMP 36.6; O2SAT 97
[2024-03-09 08:28] LABS: Alanine Aminotransferase 77 U/L (0-31); Albumin Level 3.9 g/dL (3.5-5.0); Alkaline Phosphatase 120 U/L (39-117); Anion Gap 13 (12-20); Aspartate Amino Transferase 60 U/L (5-31); Bilirubin Total 0.3 mg/dL (0.0-1.0); Blood Urea Nitrogen 30 mg/dL (9-16); Calcium 9.2 mg/dL (8.4-10.2); Carbon Dioxide 29 mmol/L (22-29); Chloride 99 mmol/L (96-108); Estimated Glomerular Filt Rate 53; Glucose Fasting 95 mg/dL (60-99); Potassium 3.4 mmol/L (3.3-5.1); Sodium 138 mmol/L (135-145)
[2024-03-09] MEDS: Lurasidone HCl 20 MG TABLET PO (08:33)
[2024-03-09] MEDS: Furosemide 20 MG TABLET PO (08:33)
[2024-03-09] MEDS: carBAMazepine ER 100 MG TAB.ER.12H PO ×2 (08:34→21:31)
[2024-03-09] MEDS: buPROPion HCl XL 300 MG TAB.ER.24H PO (08:34)
[2024-03-09 08:47] LABS: Carbamazepine Tegretol 3.6 mcg/mL (5.0-12.0)
[2024-03-09 19:44] VITALS: BP 122/74; PULSE 77; RESP 14; TEMP 36.7; O2SAT 98
--- NOTE | 2024-03-09 21:11 | HO.PSYCHPN ---
Subjective Subjective Date of Service: 03/09/24 Reason For Visit: mg/depression Interim History: Patient seen psychiatric follow-up. Remains flat dysphoric Vraylar lowered to 3 mg at bedtime Latuda started 20 mg patient continues with slowed mentation somewhat lethargic limited intake Mental Status Exam Mental Status Exam Narrative: Pt is withdrawn flat, PMR speech is decr rate, loudness, amount.poverty of content thought process markedly, slowed, paucity of thought. fair insight and judgment. no SI/HI/VH/AH expressed. Difficulty at this point with executive functioning no gross hallucinations or delusional material Diagnostics Vital Signs (24Hr): Vital Signs - 24 hr 03/09/24 08:00 03/09/24 19:44 Temperature 97.8 F 98.1 F Pulse Rate 68 77 Respiratory Rate 14 14 Blood Pressure 119/58 L 122/74 Pulse Oximetry 97 98 Oxygen Delivery Method Room Air Room Air BMI result Body Mass Index 26.6 Labs 02/09/24 20:01 03/09/24 07:50 Labs: Laboratory Results - last 48 hr 03/09/24 03/09/24 07:50 08:56 Hold Purple Top SEE NOTE Sodium 138 Potassium 3.4 Chloride 99 Carbon Dioxide 29 Anion Gap 13 BUN 30 H Creatinine 1.03 Estim Creat Clear Calc 47.0 Estimated GFR 53 Fasting Glucose 95 Calcium 9.2 Total Bilirubin 0.3 AST 60 H ALT 77 H Alkaline Phosphatase 120 H Total Protein 7.0 Albumin 3.9 Carbamazepine 3.6 L Imaging Radiology Impressions: ITS Impressions Lumbar Spine X-Ray 02/01/24 17:03 IMPRESSION: Stable appearance of the lumbar spine with compression fractures of L3 and L4. No new fractures are seen. Electronically signed by: Imtiaz Mcclellan MD 02/01/2024 06:33 PM EDT RP Medications Medications Current Medications Acetaminophen (Acetaminophen 325 Mg Tablet) 650 mg PO Q6H PRN PRN Reason: Headache/Pain Mild Scale (1-3) Last Admin: 02/18/24 13:18 Dose: 650 mg Al Hydroxide/Mg Hydroxide (Magnesium Hydrox/Alum Hydrox 30 Ml Oral.Susp) 30 ml PO Q6H PRN PRN Reason: Heartburn/Nausea Bupropion HCl (Bupropion Hcl Xl 300 Mg Tab.Er.24h) 300 mg PO DAILY [facility] Last Admin: 03/09/24 08:34 Dose: 300 mg Carbamazepine (Carbamazepine Er 100 Mg Tab.Er.12h) 100 mg PO BID [facility] Last Admin: 03/09/24 08:34 Dose: 100 mg Cariprazine (Cariprazine Hcl 3 Mg Capsule) 3 mg PO BEDTIME [facility] Last Admin: 03/08/24 21:05 Dose: 3 mg Donepezil HCl (Donepezil Hcl 10 Mg Tablet) 10 mg PO BEDTIME [facility] Last Admin: 03/08/24 21:05 Dose: 10 mg Furosemide (Furosemide 20 Mg Tablet) 20 mg PO DAILY [facility]; Protocol Last Admin: 03/09/24 08:33 Dose: 20 mg Hydroxyzine HCl (Hydroxyzine Hcl 25 Mg Tablet) 25 mg PO Q6H PRN PRN Reason: Anxiety or w/haldol EPS Proph Last Admin: 02/18/24 21:58 Dose: 25 mg Lidocaine (Lidocaine 4 % Patch Adh..Patch) 1 patch TRANSDERMA DAILY PRN; Protocol PRN Reason: low back pain Last Admin: 02/15/24 14:33 Dose: 1 patch Lurasidone HCl (Lurasidone Hcl 20 Mg Tablet) 20 mg PO DAILY [facility] Last Admin: 03/09/24 08:33 Dose: 20 mg Magnesium Hydroxide (Milk Of Magnesia 30 Ml Oral.Susp) 30 ml PO DAILY PRN PRN Reason: Constipation Last Admin: 02/28/24 11:41 Dose: 30 ml Nystatin (Nystatin Powder 15 Gm Bottle) 1 appl TOPICAL TID [facility]; Protocol Last Admin: 03/09/24 21:08 Dose: Not Given Allergies Allergies Allergy/AdvReac Type Severity Reaction Status Date / Time No Known Allergies Allergy Verified 01/29/24 05:53 Assessment & Plan Assessment & Plan (1) Bipolar disorder, most recent episode depressed: Status: Acute Code(s): F31.30 - Bipolar disorder, current episode depressed, mild or moderate severity, unspecified (2) PTSD (post-traumatic stress disorder): Status: Acute Code(s): F43.10 - Post-traumatic stress disorder, unspecified Plan The patient is severely depressed withdrawn out of beds for periods. 1st dose of Latuda given will stop melatonin. Mirtazapine in case contributing factor to daytime lethargy check labs in the morning monitor for dehydration patient on Lasix Patient educated on: diagnosis and medication risk/benefits Informed Consent: further education needed Reason for continued inpatient stay Substantial Risk for: inability to function, rapid decompensation and med/psych decompensation Time Spent With Patient Time: Total time managing care of this patient today _3___ minutes.
[2024-03-09] MEDS: Donepezil HCl 10 MG TABLET PO (21:31)
[2024-03-09] MEDS: Cariprazine HCl 3 MG CAPSULE PO (21:31)
[2024-03-10 07:41] VITALS: BP 106/61; PULSE 75; RESP 16; TEMP 36.4; O2SAT 95
[2024-03-10 07:52] VITALS: BP 106/61; PULSE 75; RESP 16; TEMP 36.4; O2SAT 95
[2024-03-10 08:45] VITALS: BP 120/72; PULSE 76; RESP 16
[2024-03-10] MEDS: Lurasidone HCl 20 MG TABLET PO (08:46)
[2024-03-10] MEDS: Furosemide 20 MG TABLET PO (08:46)
[2024-03-10] MEDS: buPROPion HCl XL 300 MG TAB.ER.24H PO (08:47)
[2024-03-10] MEDS: carBAMazepine ER 100 MG TAB.ER.12H PO ×2 (08:47→22:12)
[2024-03-10 10:41] LABS: Alkaline Phosphatase 123 U/L (39-117); Anion Gap 13 (12-20); Aspartate Amino Transferase 41 U/L (5-31); Bilirubin Total 0.3 mg/dL (0.0-1.0); Blood Urea Nitrogen 25 mg/dL (9-16); Calcium 9.4 mg/dL (8.4-10.2); Carbon Dioxide 32 mmol/L (22-29); Chloride 99 mmol/L (96-108); Estimated Glomerular Filt Rate 58; Glucose Fasting 97 mg/dL (60-99); Potassium 3.8 mmol/L (3.3-5.1); Sodium 140 mmol/L (135-145); Total Protein 7.5 g/dL (6.5-8.0)
[2024-03-10 11:00] LABS: Alanine Aminotransferase 72 U/L (0-31)
[2024-03-10 20:00] VITALS: BP 93/59; PULSE 83; RESP 14; TEMP 36.7; O2SAT 96
--- NOTE | 2024-03-10 20:25 | HO.PSYCHPN ---
Subjective Subjective Date of Service: 03/10/24 Reason For Visit: mg/depression Subjective Notes: Conditional Voluntary Interim History: Patient remains depressed and withdrawn slowed mentation difficulty processing information. Labs showed increased LFT Medication Compliance: Yes Side effects from medications: Yes Attending Groups: No Mental Status Exam Mental Status Exam Narrative: Pt is withdrawn flat, seen lying in her room casually dressed blunted look on her face. Her thought process markedly, slowed, paucity of thought. fair insight and judgment. no SI/HI/VH/AH expressed. no gross hallucinations or delusional material know she is in a hospital knows the year feels foggy Diagnostics Vital Signs (24Hr): Vital Signs - 24 hr 03/10/24 07:41 03/10/24 07:52 03/10/24 08:45 Temperature 97.6 F 97.6 F Pulse Rate 75 75 76 Respiratory Rate 16 16 16 Blood Pressure 106/61 106/61 120/72 Pulse Oximetry 95 95 Oxygen Delivery Method Room Air Room Air BMI result Body Mass Index 26.6 Labs 02/09/24 20:01 03/10/24 09:36 Labs: Laboratory Results - last 48 hr 03/09/24 03/09/24 03/10/24 07:50 08:56 09:36 Hold Purple Top SEE NOTE Sodium 138 140 Potassium 3.4 3.8 Chloride 99 99 Carbon Dioxide 29 32 H Anion Gap 13 13 BUN 30 H 25 H Creatinine 1.03 0.95 Estim Creat Clear Calc 47.0 51.0 Estimated GFR 53 58 Fasting Glucose 95 97 Calcium 9.2 9.4 Total Bilirubin 0.3 0.3 AST 60 H 41 H ALT 77 H 72 H Alkaline Phosphatase 120 H 123 H Total Protein 7.0 7.5 Albumin 3.9 4.0 Carbamazepine 3.6 L Imaging Radiology Impressions: ITS Impressions Lumbar Spine X-Ray 02/01/24 17:03 IMPRESSION: Stable appearance of the lumbar spine with compression fractures of L3 and L4. No new fractures are seen. Electronically signed by: Imtiaz Mcclellan MD 02/01/2024 06:33 PM EDT Medications Medications Current Medications Al Hydroxide/Mg Hydroxide (Magnesium Hydrox/Alum Hydrox 30 Ml Oral.Susp) 30 ml PO Q6H PRN PRN Reason: Heartburn/Nausea Bupropion HCl (Bupropion Hcl Xl 150 Mg Tab.Er.24h) 150 mg PO DAILY [facility] Carbamazepine (Carbamazepine Er 100 Mg Tab.Er.12h) 100 mg PO BID [facility] Last Admin: 03/10/24 08:47 Dose: 100 mg Cariprazine (Cariprazine Hcl 3 Mg Capsule) 3 mg PO BEDTIME [facility] Last Admin: 03/09/24 21:31 Dose: 3 mg Donepezil HCl (Donepezil Hcl 5 Mg Tablet) 5 mg PO BEDTIME [facility] Hydroxyzine HCl (Hydroxyzine Hcl 25 Mg Tablet) 25 mg PO Q6H PRN PRN Reason: Anxiety or w/haldol EPS Proph Last Admin: 02/18/24 21:58 Dose: 25 mg Lidocaine (Lidocaine 4 % Patch Adh..Patch) 1 patch TRANSDERMA DAILY PRN; Protocol PRN Reason: low back pain Last Admin: 02/15/24 14:33 Dose: 1 patch Lurasidone HCl (Lurasidone Hcl 20 Mg Tablet) 20 mg PO DAILY [facility] Last Admin: 03/10/24 08:46 Dose: 20 mg Magnesium Hydroxide (Milk Of Magnesia 30 Ml Oral.Susp) 30 ml PO DAILY PRN PRN Reason: Constipation Last Admin: 02/28/24 11:41 Dose: 30 ml Nystatin (Nystatin Powder 15 Gm Bottle) 1 appl TOPICAL TID [facility]; Protocol Last Admin: 03/10/24 15:01 Dose: Not Given Allergies Allergies Allergy/AdvReac Type Severity Reaction Status Date / Time No Known Allergies Allergy Verified 01/29/24 05:53 Assessment & Plan Assessment & Plan (1) Bipolar disorder, most recent episode depressed: Status: Acute Code(s): F31.30 - Bipolar disorder, current episode depressed, mild or moderate severity, unspecified (2) PTSD (post-traumatic stress disorder): Status: Acute Code(s): F43.10 - Post-traumatic stress disorder, unspecified Plan The patient is severely depressed withdrawn out of beds for periods. 1st dose of Latuda given will stop melatonin. Mirtazapine in case contributing factor to daytime lethargy check labs in the morning monitor for dehydration patient on Lasix 03/10/2024 Patient with slowed mentation dulled knows name place BUN somewhat elevated electrolytes within normal limits LFTs mildly increased Stop melatonin. Mirtazapine may be contributing to lethargy lower Wellbutrin to 150 mg daily recheck LFTs consider ECT check UA Aricept held hepatitis screen Patient educated on: diagnosis and medication risk/benefits Informed Consent: further education needed Reason for continued inpatient stay Substantial Risk for: inability to function, rapid decompensation and med/psych decompensation Time Spent With Patient Time: Total time managing care of this patient today ____ minutes.
[2024-03-10] MEDS: Nystatin Powder 15 GM BOTTLE 1 APPL TOPICAL (22:11)
[2024-03-10] MEDS: Donepezil HCl 5 MG TABLET PO (22:12)
[2024-03-10] MEDS: Cariprazine HCl 3 MG CAPSULE PO (22:12)
[2024-03-10] MEDS: hydrOXYzine HCL 25 MG TABLET PO (22:12)
[2024-03-10 22:45] LABS: Appearance Urine Clear; Color Urine Yellow; Glucose Urine UA Negative (Negative); Leukocyte Esterase Urine Moderate (2+) (Negative); Nitrite Urine Negative (Negative); PH 5.5 (5.0-9.0); Specific Gravity - Urine 1.025 (1.005-1.025); UMIC TRIGGER UACC YES; Urine Blood Negative (Negative); Urine Ketones Negative (Negative); Urine Protein Negative (Neg-Trace)
[2024-03-10 22:52] LABS: Bacteria Urine Trace (None Seen); Hyaline Casts Urine 0-2 /LPF (0-2); RBC Urine 0-2 /HPF (0-2); UACC Culture Trigger YES; WBC Urine 21-50 /HPF (0-5)
[2024-03-11 07:38] VITALS: BP 109/56; PULSE 71; RESP 14; TEMP 37; O2SAT 95
[2024-03-11 08:30] VITALS: BP 109/56; PULSE 71; RESP 14; TEMP 37; O2SAT 95
[2024-03-11] MEDS: carBAMazepine ER 100 MG TAB.ER.12H PO (08:42)
[2024-03-11] MEDS: buPROPion HCl XL 150 MG TAB.ER.24H PO (08:42)
[2024-03-11] MEDS: Lurasidone HCl 20 MG TABLET PO (08:42)
[2024-03-11 09:36] LABS: Alanine Aminotransferase 54 U/L (0-31); Alkaline Phosphatase 124 U/L (39-117); Aspartate Amino Transferase 33 U/L (5-31); Bilirubin Direct 0.1 mg/dL (0.0-0.5); Bilirubin Total 0.4 mg/dL (0.0-1.0); Total Protein 7.5 g/dL (6.5-8.0)
[2024-03-11] MEDS: LORazepam 1 MG TABLET PO (10:12)
[2024-03-11] MEDS: Liothyronine Sodium 25 MCG TABLET 12.5 MCG PO ×2 (11:26→17:04)
[2024-03-11 19:30] VITALS: BP 112/60; PULSE 75; RESP 16; TEMP 36.4; O2SAT 98
[2024-03-11] MEDS: hydrOXYzine HCL 25 MG TABLET PO (21:44)
[2024-03-11] MEDS: Cariprazine HCl 3 MG CAPSULE PO (21:44)
[2024-03-11] MEDS: Donepezil HCl 5 MG TABLET PO (21:44)
--- NOTE | 2024-03-11 22:55 | P.PNPSI_ITS ---
Subjective Subjective Date of Service: 03/11/24 Reason For Visit: mg/depression Subjective Notes: Conditional Voluntary Interim History: Patient seen psychiatric follow-up case reviewed in treatment planning. Patient was withdrawn lethargic thought blocking difficult to arouse in the morning has been started on Latuda 20 mg seem to have failed Vraylar up to 6 mg. Patient appears catatonic like give a test dose of lorazepam 1 mg in did appear to respond to some degree. Also briefly discussed with the patient option of ECT Mental Status Exam Mental Status Exam Narrative: Pt is withdrawn flat, seen lying in her room casually dressed blunted thought blocking knows that she is psychiatric hospital still not feeling like herself No hallucinations no delusional material. Patient markedly slowed mentation depressed Diagnostics Vital Signs (24Hr): Vital Signs - 24 hr 03/11/24 07:38 03/11/24 08:30 03/11/24 19:30 Temperature 98.6 F 98.6 F 97.6 F Pulse Rate 71 71 75 Respiratory Rate 14 14 16 Blood Pressure 109/56 L 109/56 L 112/60 Pulse Oximetry 95 95 98 Oxygen Delivery Method Room Air Room Air Room Air BMI result Body Mass Index 26.6 Labs 02/09/24 20:01 03/10/24 09:36 Labs: Laboratory Results - last 48 hr 03/10/24 03/10/24 03/11/24 09:36 20:39 09:01 Sodium 140 Potassium 3.8 Chloride 99 Carbon Dioxide 32 H Anion Gap 13 BUN 25 H Creatinine 0.95 Estim Creat Clear Calc 51.0 Estimated GFR 58 Fasting Glucose 97 Calcium 9.4 Total Bilirubin 0.3 0.4 Direct Bilirubin 0.1 AST 41 H 33 H ALT 72 H 54 H Alkaline Phosphatase 123 H 124 H Total Protein 7.5 7.5 Albumin 4.0 4.0 Urine Color Yellow Urine Appearance Clear Urine pH 5.5 Ur Specific [place] 1.025 Urine Protein Negative Urine Glucose (UA) Negative Urine Ketones Negative Urine Blood Negative Urine Nitrite Negative Ur Leukocyte Esterase Moderate (2+) H Urine RBC 0-2 Urine WBC 21-50 H Ur Squamous Epith Cells 6-10 Urine Bacteria Trace Hyaline Casts 0-2 Imaging Radiology Impressions: ITS Impressions Lumbar Spine X-Ray 02/01/24 17:03 IMPRESSION: Stable appearance of the lumbar spine with compression fractures of L3 and L4. No new fractures are seen. Electronically signed by: Imtiaz Mcclellan MD 02/01/2024 06:33 PM EDT RP Medications Medications Current Medications Al Hydroxide/Mg Hydroxide (Magnesium Hydrox/Alum Hydrox 30 Ml Oral.Susp) 30 ml PO Q6H PRN PRN Reason: Heartburn/Nausea Bupropion HCl (Bupropion Hcl Xl 150 Mg Tab.Er.24h) 150 mg PO DAILY [facility] Last Admin: 03/11/24 08:42 Dose: 150 mg Cariprazine (Cariprazine Hcl 3 Mg Capsule) 3 mg PO BEDTIME [facility] Last Admin: 03/11/24 21:44 Dose: 3 mg Donepezil HCl (Donepezil Hcl 5 Mg Tablet) 5 mg PO BEDTIME [facility] Last Admin: 03/11/24 21:44 Dose: 5 mg Hydroxyzine HCl (Hydroxyzine Hcl 25 Mg Tablet) 25 mg PO Q6H PRN PRN Reason: Anxiety or w/haldol EPS Proph Last Admin: 03/11/24 21:44 Dose: 25 mg Lidocaine (Lidocaine 4 % Patch Adh..Patch) 1 patch TRANSDERMA DAILY PRN; Protocol PRN Reason: low back pain Last Admin: 02/15/24 14:33 Dose: 1 patch Liothyronine Sodium (Liothyronine Sodium 25 Mcg Tablet) 12.5 mcg PO BID@0800,1800 [facility] Last Admin: 03/11/24 17:04 Dose: 12.5 mcg Lorazepam (Lorazepam 0.5 Mg Tablet) 0.5 mg PO TID [facility] Lurasidone HCl (Lurasidone Hcl 20 Mg Tablet) 20 mg PO DAILY [facility] Last Admin: 03/11/24 08:42 Dose: 20 mg Magnesium Hydroxide (Milk Of Magnesia 30 Ml Oral.Susp) 30 ml PO DAILY PRN PRN Reason: Constipation Last Admin: 02/28/24 11:41 Dose: 30 ml Nystatin (Nystatin Powder 15 Gm Bottle) 1 appl TOPICAL TID [facility]; Protocol Last Admin: 03/11/24 21:51 Dose: Not Given Allergies Allergies Allergy/AdvReac Type Severity Reaction Status Date / Time No Known Allergies Allergy Verified 01/29/24 05:53 Assessment & Plan Assessment & Plan (1) Bipolar disorder, most recent episode depressed: Status: Acute Code(s): F31.30 - Bipolar disorder, current episode depressed, mild or moderate severity, unspecified (2) PTSD (post-traumatic stress disorder): Status: Acute Code(s): F43.10 - Post-traumatic stress disorder, unspecified Plan The patient is severely depressed withdrawn out of beds for periods. 1st dose of Latuda given will stop melatonin. Mirtazapine in case contributing factor to daytime lethargy check labs in the morning monitor for dehydration patient on Lasix 03/10/2024 Patient with slowed mentation dulled knows name place BUN somewhat elevated electrolytes within normal limits LFTs mildly increased Stop melatonin. Mirtazapine may be contributing to lethargy lower Wellbutrin to 150 mg daily recheck LFTs consider ECT check UA Aricept held hepatitis screen 03/11/2024 Start lorazepam see if helpful question catatonia like syndrome liver function tests recheck taper Vraylakhris owens Latuda would consider ECT encourage food and fluids needs help to maintain basic ADLs and cuing Patient educated on: diagnosis and therapeutic strategies Reason for continued inpatient stay Substantial Risk for: inability to function and med/psych decompensation Time Spent With Patient Time: Total time managing care of this patient today ____ minutes.
[2024-03-12 04:14] LABS: HBc Num1 0.13 S/CO (0.00-0.79); HBsAGNum1 0.29 S/CO (0.00-0.99); Hepatitis A Antibody IgM 0.62 Index (0-0.79); Hepatitis B Core Antibody Nonreactive (Nonreactive); Hepatitis B Surface Antigen Negative (Negative); ~HepC Num1 0.11 S/CO (0.00-0.79); ~Hepatitis A Antibody IgM Nonreactive (Nonreactive); ~Hepatitis B Surface Antibody NONREACTIVE (Nonreactive); ~Hepatitis C Antibody Nonreactive (Nonreactive)
[2024-03-12 07:15] VITALS: BP 111/54; PULSE 79; RESP 14; TEMP 36.3; O2SAT 97
[2024-03-12 08:08] VITALS: BP 111/54; PULSE 79; RESP 14; TEMP 36.3; O2SAT 97
[2024-03-12] MEDS: LORazepam 0.5 MG TABLET PO ×3 (08:54→22:39)
[2024-03-12] MEDS: Lurasidone HCl 20 MG TABLET PO (08:54)
[2024-03-12] MEDS: buPROPion HCl XL 150 MG TAB.ER.24H PO (08:54)
[2024-03-12] MEDS: Liothyronine Sodium 25 MCG TABLET 12.5 MCG PO ×2 (08:55→18:29)
[2024-03-12 09:00] VITALS: BP 109/55; PULSE 78
--- NOTE | 2024-03-12 13:11 | P.PNPSI_ITS ---
Subjective Subjective Date of Service: 03/12/24 Reason For Visit: mg/depression Subjective Notes: Conditional Voluntary Interim History: Pt in bed, reports yeserday was a better day because she was able to get up and out of her room. She denies SI/HI. some delayed in response. Medication Compliance: Yes Review of Systems Review of Systems nothing of note Constitutional: Reports as per HPI Eyes: Reports as per HPI Reports as per HPI Cardiovascular: Reports as per HPI Respiratory: Reports as per HPI Gastrointestinal: Reports as per HPI Musculoskeletal: Reports as per HPI Skin/Breast: Reports as per HPI Reports as per HPI Psychiatric: Reports as per HPI Endocrine: Reports as per HPI Hematologic/Lymphatic: Reports as per HPI Allergic/Immunologic: Reports as per HPI Mental Status Exam Mental Status Exam Narrative: Pt is withdrawn flat, seen lying in her room casually dressed blunted thought blocking knows that she is psychiatric hospital still not feeling like herself No hallucinations no delusional material. Patient markedly slowed mentation depressed Diagnostics Vital Signs (24Hr): Vital Signs - 24 hr 03/11/24 19:30 03/12/24 07:15 03/12/24 08:08 Temperature 97.6 F 97.3 F 97.3 F Pulse Rate 75 79 79 Respiratory Rate 16 14 14 Blood Pressure 112/60 111/54 L 111/54 L Pulse Oximetry 98 97 97 Oxygen Delivery Method Room Air Room Air Room Air 03/12/24 09:00 Temperature Pulse Rate 78 Respiratory Rate Blood Pressure 109/55 L Pulse Oximetry Oxygen Delivery Method BMI result Body Mass Index 26.6 Labs 02/09/24 20:01 03/10/24 09:36 Labs: Laboratory Results - last 48 hr 03/10/24 03/11/24 03/11/24 20:39 09:00 09:01 Total Bilirubin 0.4 Direct Bilirubin 0.1 AST 33 H ALT 54 H Alkaline Phosphatase 124 H Total Protein 7.5 Albumin 4.0 Urine Color Yellow Urine Appearance Clear Urine pH 5.5 Ur Specific [place] 1.025 Urine Protein Negative Urine Glucose (UA) Negative Urine Ketones Negative Urine Blood Negative Urine Nitrite Negative Ur Leukocyte Esterase Moderate (2+) H Urine RBC 0-2 Urine WBC 21-50 H Ur Squamous Epith Cells 6-10 Urine Bacteria Trace Hyaline Casts 0-2 Hepatitis A IgM Ab Nonreactive Hep Bs Antigen Negative Hep Bs Antibody NONREACTIVE Hep B Core Total Ab Nonreactive Hepatitis C Ab (EIA) Nonreactive Imaging Radiology Impressions: ITS Impressions Lumbar Spine X-Ray 02/01/24 17:03 IMPRESSION: Stable appearance of the lumbar spine with compression fractures of L3 and L4. No new fractures are seen. Electronically signed by: Imtiaz Mcclellan MD 02/01/2024 06:33 PM EDT RP Medications Medications Current Medications Al Hydroxide/Mg Hydroxide (Magnesium Hydrox/Alum Hydrox 30 Ml Oral.Susp) 30 ml PO Q6H PRN PRN Reason: Heartburn/Nausea Bupropion HCl (Bupropion Hcl Xl 150 Mg Tab.Er.24h) 150 mg PO DAILY [facility] Last Admin: 03/12/24 08:54 Dose: 150 mg Cariprazine (Cariprazine Hcl 3 Mg Capsule) 3 mg PO BEDTIME [facility] Last Admin: 03/11/24 21:44 Dose: 3 mg Donepezil HCl (Donepezil Hcl 5 Mg Tablet) 5 mg PO BEDTIME [facility] Last Admin: 03/11/24 21:44 Dose: 5 mg Hydroxyzine HCl (Hydroxyzine Hcl 25 Mg Tablet) 25 mg PO Q6H PRN PRN Reason: Anxiety or w/haldol EPS Proph Last Admin: 03/11/24 21:44 Dose: 25 mg Lidocaine (Lidocaine 4 % Patch Adh..Patch) 1 patch TRANSDERMA DAILY PRN; Protocol PRN Reason: low back pain Last Admin: 02/15/24 14:33 Dose: 1 patch Liothyronine Sodium (Liothyronine Sodium 25 Mcg Tablet) 12.5 mcg PO BID@0800,1800 [facility] Last Admin: 03/12/24 08:55 Dose: 12.5 mcg Lorazepam (Lorazepam 0.5 Mg Tablet) 0.5 mg PO TID [facility] Last Admin: 03/12/24 08:54 Dose: 0.5 mg Lurasidone HCl (Lurasidone Hcl 20 Mg Tablet) 20 mg PO DAILY [facility] Last Admin: 03/12/24 08:54 Dose: 20 mg Magnesium Hydroxide (Milk Of Magnesia 30 Ml Oral.Susp) 30 ml PO DAILY PRN PRN Reason: Constipation Last Admin: 02/28/24 11:41 Dose: 30 ml Nystatin (Nystatin Powder 15 Gm Bottle) 1 appl TOPICAL TID [facility]; Protocol Last Admin: 03/12/24 10:33 Dose: Not Given Allergies Allergies Allergy/AdvReac Type Severity Reaction Status Date / Time No Known Allergies Allergy Verified 01/29/24 05:53 Assessment & Plan Assessment & Plan (1) Bipolar disorder, most recent episode depressed: Status: Acute Code(s): F31.30 - Bipolar disorder, current episode depressed, mild or moderate severity, unspecified (2) PTSD (post-traumatic stress disorder): Status: Acute Code(s): F43.10 - Post-traumatic stress disorder, unspecified Plan The patient is severely depressed withdrawn out of beds for periods. 1st dose of Latuda given will stop melatonin. Mirtazapine in case contributing factor to daytime lethargy check labs in the morning monitor for dehydration patient on Lasix 03/10/2024 Patient with slowed mentation dulled knows name place BUN somewhat elevated electrolytes within normal limits LFTs mildly increased Stop melatonin. Mirtazapine may be contributing to lethargy lower Wellbutrin to 150 mg daily recheck LFTs consider ECT check UA Aricept held hepatitis screen 03/12- continue tx. Reason for continued inpatient stay Substantial Risk for: inability to function Time Spent With Patient Time: Total time managing care of this patient today ____ minutes.
[2024-03-12] MEDS: Nystatin Powder 15 GM BOTTLE 1 APPL TOPICAL (15:18)
[2024-03-12 19:16] VITALS: BP 128/60; PULSE 75; RESP 16; TEMP 36.4; O2SAT 98
[2024-03-12] MEDS: Donepezil HCl 5 MG TABLET PO (22:38)
[2024-03-12] MEDS: Cariprazine HCl 3 MG CAPSULE PO (22:39)
[2024-03-13 07:32] VITALS: BP 97/52; PULSE 85; RESP 16; TEMP 36.4; O2SAT 96
[2024-03-13] MEDS: LORazepam 0.5 MG TABLET PO ×2 (08:26→21:04)
[2024-03-13] MEDS: Liothyronine Sodium 25 MCG TABLET 12.5 MCG PO ×2 (08:26→17:12)
[2024-03-13] MEDS: Lurasidone HCl 20 MG TABLET PO (08:27)
[2024-03-13] MEDS: buPROPion HCl XL 150 MG TAB.ER.24H PO (08:27)
[2024-03-13 19:38] VITALS: BP 100/58; PULSE 93; RESP 16; TEMP 36.8; O2SAT 95
--- NOTE | 2024-03-13 19:59 | HO.PSYCHPN ---
Subjective Subjective Date of Service: 03/13/24 Reason For Visit: mg/depression Interim History: Pt in bed, reports yeserday was a better day because she was able to get up and out of her room. She denies SI/HI. some delayed in response. Review of Systems Review of Systems nothing of note Constitutional: Reports as per HPI Eyes: Reports as per HPI Reports as per HPI Cardiovascular: Reports as per HPI Respiratory: Reports as per HPI Gastrointestinal: Reports as per HPI Musculoskeletal: Reports as per HPI Skin/Breast: Reports as per HPI Reports as per HPI Psychiatric: Reports as per HPI Endocrine: Reports as per HPI Hematologic/Lymphatic: Reports as per HPI Allergic/Immunologic: Reports as per HPI Mental Status Exam Mental Status Exam Narrative: Pt is withdrawn flat, seen lying in her room casually dressed blunted thought blocking knows that she is psychiatric hospital still not feeling like herself No hallucinations no delusional material. Patient markedly slowed mentation depressed Diagnostics Vital Signs (24Hr): Vital Signs - 24 hr 03/13/24 07:32 Temperature 97.5 F Pulse Rate 85 Respiratory Rate 16 Blood Pressure 97/52 L Pulse Oximetry 96 Oxygen Delivery Method Room Air BMI result Body Mass Index 26.6 Labs 02/09/24 20:01 03/10/24 09:36 Labs: Laboratory Results - last 48 hr 03/11/24 09:00 Hepatitis A IgM Ab Nonreactive Hep Bs Antigen Negative Hep Bs Antibody NONREACTIVE Hep B Core Total Ab Nonreactive Hepatitis C Ab (EIA) Nonreactive Imaging Radiology Impressions: ITS Impressions Lumbar Spine X-Ray 02/01/24 17:03 IMPRESSION: Stable appearance of the lumbar spine with compression fractures of L3 and L4. No new fractures are seen. Electronically signed by: Imtiaz Mcclellan MD 02/01/2024 06:33 PM EDT Medications Medications Current Medications Al Hydroxide/Mg Hydroxide (Magnesium Hydrox/Alum Hydrox 30 Ml Oral.Susp) 30 ml PO Q6H PRN PRN Reason: Heartburn/Nausea Bupropion HCl (Bupropion Hcl Xl 150 Mg Tab.Er.24h) 150 mg PO DAILY [facility] Last Admin: 03/13/24 08:27 Dose: 150 mg Cariprazine (Cariprazine Hcl 3 Mg Capsule) 3 mg PO BEDTIME [facility] Last Admin: 03/12/24 22:39 Dose: 3 mg Donepezil HCl (Donepezil Hcl 5 Mg Tablet) 5 mg PO BEDTIME [facility] Last Admin: 03/12/24 22:38 Dose: 5 mg Hydroxyzine HCl (Hydroxyzine Hcl 25 Mg Tablet) 25 mg PO Q6H PRN PRN Reason: Anxiety or w/haldol EPS Proph Last Admin: 03/11/24 21:44 Dose: 25 mg Lidocaine (Lidocaine 4 % Patch Adh..Patch) 1 patch TRANSDERMA DAILY PRN; Protocol PRN Reason: low back pain Last Admin: 02/15/24 14:33 Dose: 1 patch Liothyronine Sodium (Liothyronine Sodium 25 Mcg Tablet) 12.5 mcg PO BID@0800,1800 [facility] Last Admin: 03/13/24 17:12 Dose: 12.5 mcg Lorazepam (Lorazepam 0.5 Mg Tablet) 0.5 mg PO TID [facility] Last Admin: 03/13/24 14:30 Dose: Not Given Lurasidone HCl (Lurasidone Hcl 20 Mg Tablet) 20 mg PO DAILY [facility] Last Admin: 03/13/24 08:27 Dose: 20 mg Magnesium Hydroxide (Milk Of Magnesia 30 Ml Oral.Susp) 30 ml PO DAILY PRN PRN Reason: Constipation Last Admin: 02/28/24 11:41 Dose: 30 ml Nystatin (Nystatin Powder 15 Gm Bottle) 1 appl TOPICAL TID [facility]; Protocol Last Admin: 03/13/24 14:31 Dose: Not Given Allergies Allergies Allergy/AdvReac Type Severity Reaction Status Date / Time No Known Allergies Allergy Verified 01/29/24 05:53 Assessment & Plan Assessment & Plan (1) Bipolar disorder, most recent episode depressed: Status: Acute Code(s): F31.30 - Bipolar disorder, current episode depressed, mild or moderate severity, unspecified (2) PTSD (post-traumatic stress disorder): Status: Acute Code(s): F43.10 - Post-traumatic stress disorder, unspecified Plan The patient is severely depressed withdrawn out of beds for periods. 1st dose of Latuda given will stop melatonin. Mirtazapine in case contributing factor to daytime lethargy check labs in the morning monitor for dehydration patient on Lasix 03/10/2024 Patient with slowed mentation dulled knows name place BUN somewhat elevated electrolytes within normal limits LFTs mildly increased Stop melatonin. Mirtazapine may be contributing to lethargy lower Wellbutrin to 150 mg daily recheck LFTs consider ECT check UA Aricept held hepatitis screen 03/12 continue tx. 03/13 continue tx. Reason for continued inpatient stay Substantial Risk for: inability to function Time Spent With Patient Time: Total time managing care of this patient today ____ minutes.
[2024-03-13] MEDS: Cariprazine HCl 3 MG CAPSULE PO (21:04)
[2024-03-13] MEDS: Donepezil HCl 5 MG TABLET PO (21:04)
[2024-03-14 08:00] VITALS: BP 99/56; PULSE 61; RESP 14; TEMP 36.4; O2SAT 94
[2024-03-14] MEDS: LORazepam 0.5 MG TABLET PO ×3 (08:51→20:51)
[2024-03-14] MEDS: Lurasidone HCl 20 MG TABLET PO (08:51)
[2024-03-14] MEDS: buPROPion HCl XL 150 MG TAB.ER.24H PO (08:52)
[2024-03-14] MEDS: Liothyronine Sodium 25 MCG TABLET 12.5 MCG PO ×2 (09:00→18:41)
--- NOTE | 2024-03-14 10:11 | HO.PSYCHPN ---
Subjective Subjective Date of Service: 03/14/24 Reason For Visit: mg/depression Subjective Notes: Conditional Voluntary Interim History: In bed most of shift. Pt reports feeling tired ; per nursing, pt slept 10 hours last night. Delayed responses, appears thought blocking. Pt denies SI/HI/VH/AH. Showered. Medication Compliance: Yes Attending Groups: No Review of Systems Constitutional: Reports as per HPI Eyes: Reports as per HPI Reports as per HPI Cardiovascular: Reports as per HPI Respiratory: Reports as per HPI Gastrointestinal: Reports as per HPI Musculoskeletal: Reports as per HPI Skin/Breast: Reports as per HPI Reports as per HPI Psychiatric: Reports as per HPI Endocrine: Reports as per HPI Hematologic/Lymphatic: Reports as per HPI Allergic/Immunologic: Reports as per HPI Mental Status Exam Mental Status Exam Narrative: Pt is withdrawn, flat, laying in bed. thought blocking. delayed responses. depressed. tired. denies SI/HI/VH/AH. Diagnostics Vital Signs (24Hr): Vital Signs - 24 hr 03/13/24 19:38 03/14/24 08:00 Temperature 98.2 F 97.6 F Pulse Rate 93 61 Respiratory Rate 16 14 Blood Pressure 100/58 L 99/56 L Pulse Oximetry 95 94 Oxygen Delivery Method Room Air Room Air BMI result Body Mass Index 26.6 Labs 02/09/24 20:01 03/10/24 09:36 Imaging Radiology Impressions: ITS Impressions Lumbar Spine X-Ray 02/01/24 17:03 IMPRESSION: Stable appearance of the lumbar spine with compression fractures of L3 and L4. No new fractures are seen. Electronically signed by: Imtiaz Mcclellan MD 02/01/2024 06:33 PM EDT Medications Medications Current Medications Al Hydroxide/Mg Hydroxide (Magnesium Hydrox/Alum Hydrox 30 Ml Oral.Susp) 30 ml PO Q6H PRN PRN Reason: Heartburn/Nausea Bupropion HCl (Bupropion Hcl Xl 150 Mg Tab.Er.24h) 150 mg PO DAILY [facility] Last Admin: 03/14/24 08:52 Dose: 150 mg Cariprazine (Cariprazine Hcl 3 Mg Capsule) 3 mg PO BEDTIME [facility] Last Admin: 03/13/24 21:04 Dose: 3 mg Donepezil HCl (Donepezil Hcl 5 Mg Tablet) 5 mg PO BEDTIME [facility] Last Admin: 03/13/24 21:04 Dose: 5 mg Hydroxyzine HCl (Hydroxyzine Hcl 25 Mg Tablet) 25 mg PO Q6H PRN PRN Reason: Anxiety or w/haldol EPS Proph Last Admin: 03/11/24 21:44 Dose: 25 mg Lidocaine (Lidocaine 4 % Patch Adh..Patch) 1 patch TRANSDERMA DAILY PRN; Protocol PRN Reason: low back pain Last Admin: 02/15/24 14:33 Dose: 1 patch Liothyronine Sodium (Liothyronine Sodium 25 Mcg Tablet) 12.5 mcg PO BID@0800,1800 [facility] Last Admin: 03/14/24 09:00 Dose: 12.5 mcg Lorazepam (Lorazepam 0.5 Mg Tablet) 0.5 mg PO TID [facility] Last Admin: 03/14/24 08:51 Dose: 0.5 mg Lurasidone HCl (Lurasidone Hcl 20 Mg Tablet) 20 mg PO DAILY [facility] Last Admin: 03/14/24 08:51 Dose: 20 mg Magnesium Hydroxide (Milk Of Magnesia 30 Ml Oral.Susp) 30 ml PO DAILY PRN PRN Reason: Constipation Last Admin: 02/28/24 11:41 Dose: 30 ml Nystatin (Nystatin Powder 15 Gm Bottle) 1 appl TOPICAL TID [facility]; Protocol Last Admin: 03/14/24 09:01 Dose: Not Given Allergies Allergies Allergy/AdvReac Type Severity Reaction Status Date / Time No Known Allergies Allergy Verified 01/29/24 05:53 Assessment & Plan Assessment & Plan (1) Bipolar disorder, most recent episode depressed: Status: Acute Code(s): F31.30 - Bipolar disorder, current episode depressed, mild or moderate severity, unspecified (2) PTSD (post-traumatic stress disorder): Status: Acute Code(s): F43.10 - Post-traumatic stress disorder, unspecified Plan The patient is severely depressed withdrawn out of beds for periods. 1st dose of Latuda given will stop melatonin. Mirtazapine in case contributing factor to daytime lethargy check labs in the morning monitor for dehydration patient on Lasix 03/10/2024 Patient with slowed mentation dulled knows name place BUN somewhat elevated electrolytes within normal limits LFTs mildly increased Stop melatonin. Mirtazapine may be contributing to lethargy lower Wellbutrin to 150 mg daily recheck LFTs consider ECT check UA Aricept held hepatitis screen 03/12 continue tx. 03/13 continue tx. 03/14: In bed most of shift. Pt reports feeling tired ; per nursing, pt slept 10 hours last night. Delayed responses, appears thought blocking. Pt denies SI/HI/VH/AH. Showered. Continue current tx plan. Reason for continued inpatient stay Substantial Risk for: med/psych decompensation Time Spent With Patient Time: Total time managing care of this patient today _20___ minutes.
[2024-03-14 20:00] VITALS: BP 133/66; PULSE 80; RESP 16; TEMP 36.4; O2SAT 98
[2024-03-14] MEDS: Donepezil HCl 5 MG TABLET PO (20:51)
[2024-03-14] MEDS: Cariprazine HCl 3 MG CAPSULE PO (20:51)
[2024-03-15 07:29] VITALS: BP 109/57; PULSE 77; RESP 20; TEMP 36.6; O2SAT 98
[2024-03-15] MEDS: Lurasidone HCl 20 MG TABLET PO ×2 (08:07→10:46)
[2024-03-15] MEDS: LORazepam 0.5 MG TABLET PO ×4 (08:08→21:20)
[2024-03-15] MEDS: buPROPion HCl XL 150 MG TAB.ER.24H PO (08:08)
[2024-03-15] MEDS: Liothyronine Sodium 25 MCG TABLET 12.5 MCG PO ×2 (08:08→17:30)
--- NOTE | 2024-03-15 13:16 | P.PNPSI_ITS ---
Subjective Subjective Date of Service: 03/15/24 Reason For Visit: mg/depression Subjective Notes: Conditional Voluntary Interim History: Pt seen in f/u mood flat limited engagement did eat food latuda was inc 40 mg pt mostly in bed withdrawn minimally functioning Medication Compliance: Yes Mental Status Exam Mental Status Exam Narrative: Pt casually dressed withdrawn flat constricted pov of content slowed mentation denies mejia no si cannot explain behvior Diagnostics Vital Signs (24Hr): Vital Signs - 24 hr 03/14/24 20:00 03/15/24 07:29 Temperature 97.5 F 97.9 F Pulse Rate 80 77 Respiratory Rate 16 20 Blood Pressure 133/66 109/57 L Pulse Oximetry 98 98 Oxygen Delivery Method Room Air Room Air BMI result Body Mass Index 26.6 Labs 02/09/24 20:01 03/10/24 09:36 Imaging Radiology Impressions: ITS Impressions Lumbar Spine X-Ray 02/01/24 17:03 IMPRESSION: Stable appearance of the lumbar spine with compression fractures of L3 and L4. No new fractures are seen. Electronically signed by: Imtiaz Mcclellan MD 02/01/2024 06:33 PM EDT RP Medications Medications Current Medications Al Hydroxide/Mg Hydroxide (Magnesium Hydrox/Alum Hydrox 30 Ml Oral.Susp) 30 ml PO Q6H PRN PRN Reason: Heartburn/Nausea Bupropion HCl (Bupropion Hcl Xl 150 Mg Tab.Er.24h) 150 mg PO DAILY [facility] Last Admin: 03/15/24 08:08 Dose: 150 mg Cariprazine (Cariprazine Hcl 3 Mg Capsule) 3 mg PO BEDTIME [facility] Last Admin: 03/14/24 20:51 Dose: 3 mg Donepezil HCl (Donepezil Hcl 5 Mg Tablet) 5 mg PO BEDTIME [facility] Last Admin: 03/14/24 20:51 Dose: 5 mg Hydroxyzine HCl (Hydroxyzine Hcl 25 Mg Tablet) 25 mg PO Q6H PRN PRN Reason: Anxiety or w/haldol EPS Proph Last Admin: 03/11/24 21:44 Dose: 25 mg Lidocaine (Lidocaine 4 % Patch Adh..Patch) 1 patch TRANSDERMA DAILY PRN; Protocol PRN Reason: low back pain Last Admin: 02/15/24 14:33 Dose: 1 patch Liothyronine Sodium (Liothyronine Sodium 25 Mcg Tablet) 12.5 mcg PO BID@0800,1800 [facility] Last Admin: 03/15/24 08:08 Dose: 12.5 mcg Lorazepam (Lorazepam 0.5 Mg Tablet) 0.5 mg PO TID [facility] Last Admin: 03/15/24 08:08 Dose: 0.5 mg Lurasidone HCl (Lurasidone Hcl 20 Mg Tablet) 20 mg PO DAILY [facility] Last Admin: 03/15/24 08:07 Dose: 20 mg Magnesium Hydroxide (Milk Of Magnesia 30 Ml Oral.Susp) 30 ml PO DAILY PRN PRN Reason: Constipation Last Admin: 02/28/24 11:41 Dose: 30 ml Nystatin (Nystatin Powder 15 Gm Bottle) 1 appl TOPICAL TID [facility]; Protocol Last Admin: 03/15/24 08:48 Dose: Not Given Allergies Allergies Allergy/AdvReac Type Severity Reaction Status Date / Time No Known Allergies Allergy Verified 01/29/24 05:53 Assessment & Plan Assessment & Plan (1) Bipolar disorder, most recent episode depressed: Status: Acute Code(s): F31.30 - Bipolar disorder, current episode depressed, mild or moderate severity, unspecified (2) PTSD (post-traumatic stress disorder): Status: Acute Code(s): F43.10 - Post-traumatic stress disorder, unspecified Plan The patient is severely depressed withdrawn out of beds for periods. 1st dose of Latuda given will stop melatonin. Mirtazapine in case contributing factor to daytime lethargy check labs in the morning monitor for dehydration patient on Lasix 03/10/2024 Patient with slowed mentation dulled knows name place BUN somewhat elevated electrolytes within normal limits LFTs mildly increased Stop melatonin. Mirtazapine may be contributing to lethargy lower Wellbutrin to 150 mg daily recheck LFTs consider ECT check UA Aricept held hepatitis screen 03/12 continue tx. 03/13 continue tx. 03/14: In bed most of shift. Pt reports feeling tired ; per nursing, pt slept 10 hours last night. Delayed responses, appears thought blocking. Pt denies SI/HI/VH/AH. Showered. Continue current tx plan. 03/15/24 Inc latuda 40 mg daily cont lorazepam still no change introduced option of ect Patient educated on: diagnosis, medication risk/benefits and ECT Informed Consent: further education needed Reason for continued inpatient stay Substantial Risk for: inability to function, rapid decompensation and med/psych decompensation Time Spent With Patient Time: Total time managing care of this patient today 25___ minutes.
[2024-03-15 20:00] VITALS: BP 112/60; PULSE 87; RESP 16; TEMP 37; O2SAT 95
[2024-03-15] MEDS: Cariprazine HCl 3 MG CAPSULE PO (21:20)
[2024-03-15] MEDS: Donepezil HCl 5 MG TABLET PO (21:20)
[2024-03-16 07:15] VITALS: BP 117/56; PULSE 73; RESP 14; TEMP 37.3; O2SAT 95
[2024-03-16] MEDS: Lurasidone HCl 40 MG TABLET PO (09:00)
[2024-03-16] MEDS: Liothyronine Sodium 25 MCG TABLET 12.5 MCG PO ×2 (09:00→18:19)
[2024-03-16] MEDS: buPROPion HCl XL 150 MG TAB.ER.24H PO (09:01)
[2024-03-16] MEDS: LORazepam 0.5 MG TABLET PO ×3 (09:01→20:14)
[2024-03-16] MEDS: Nystatin Powder 15 GM BOTTLE 1 APPL TOPICAL (09:35)
[2024-03-16 20:00] VITALS: BP 137/67; PULSE 88; RESP 14; TEMP 36.6; O2SAT 98
[2024-03-16] MEDS: Donepezil HCl 5 MG TABLET PO (20:14)
--- NOTE | 2024-03-16 23:11 | HO.PSYCHPN ---
Subjective Subjective Date of Service: 03/16/24 Reason For Visit: mg/depression Subjective Notes: Conditional Voluntary Interim History: Patient today with slowed mentation but improved energy and mood. Seem more alert out of bed earlier ate breakfast. Patient knows year month in place. Has been out of bed for some periods of time needs encouragement to take shower take her of ADLs leave her room Mental Status Exam Mental Status Exam Narrative: Patient casually dressed somewhat blank stare slowed mentation mood described as okay appears flat and constricted denies hallucinations or delusional material psychomotor retarded Diagnostics Vital Signs (24Hr): Vital Signs - 24 hr 03/16/24 07:15 03/16/24 20:00 Temperature 99.2 F 98 F Pulse Rate 73 88 Respiratory Rate 14 14 Blood Pressure 117/56 L 137/67 Pulse Oximetry 95 98 Oxygen Delivery Method Room Air Room Air BMI result Body Mass Index 26.6 Labs 02/09/24 20:01 03/10/24 09:36 Imaging Radiology Impressions: ITS Impressions Lumbar Spine X-Ray 02/01/24 17:03 IMPRESSION: Stable appearance of the lumbar spine with compression fractures of L3 and L4. No new fractures are seen. Electronically signed by: Imtiaz Mcclellan MD 02/01/2024 06:33 PM EDT RP Medications Medications Current Medications Al Hydroxide/Mg Hydroxide (Magnesium Hydrox/Alum Hydrox 30 Ml Oral.Susp) 30 ml PO Q6H PRN PRN Reason: Heartburn/Nausea Bupropion HCl (Bupropion Hcl Xl 150 Mg Tab.Er.24h) 150 mg PO DAILY [facility] Last Admin: 03/16/24 09:01 Dose: 150 mg Donepezil HCl (Donepezil Hcl 5 Mg Tablet) 5 mg PO BEDTIME [facility] Last Admin: 03/16/24 20:14 Dose: 5 mg Hydroxyzine HCl (Hydroxyzine Hcl 25 Mg Tablet) 25 mg PO Q6H PRN PRN Reason: Anxiety or w/haldol EPS Proph Last Admin: 03/11/24 21:44 Dose: 25 mg Lidocaine (Lidocaine 4 % Patch Adh..Patch) 1 patch TRANSDERMA DAILY PRN; Protocol PRN Reason: low back pain Last Admin: 02/15/24 14:33 Dose: 1 patch Liothyronine Sodium (Liothyronine Sodium 25 Mcg Tablet) 12.5 mcg PO BID@0800,1800 [facility] Last Admin: 03/16/24 18:19 Dose: 12.5 mcg Lorazepam (Lorazepam 0.5 Mg Tablet) 0.5 mg PO TID [facility] Last Admin: 03/16/24 20:14 Dose: 0.5 mg Lurasidone HCl (Lurasidone Hcl 40 Mg Tablet) 40 mg PO DAILY [facility] Last Admin: 03/16/24 09:00 Dose: 40 mg Magnesium Hydroxide (Milk Of Magnesia 30 Ml Oral.Susp) 30 ml PO DAILY PRN PRN Reason: Constipation Last Admin: 02/28/24 11:41 Dose: 30 ml Allergies Allergies Allergy/AdvReac Type Severity Reaction Status Date / Time No Known Allergies Allergy Verified 01/29/24 05:53 Assessment & Plan Assessment & Plan (1) Bipolar disorder, most recent episode depressed: Status: Acute Code(s): F31.30 - Bipolar disorder, current episode depressed, mild or moderate severity, unspecified (2) PTSD (post-traumatic stress disorder): Status: Acute Code(s): F43.10 - Post-traumatic stress disorder, unspecified Plan The patient is severely depressed withdrawn out of beds for periods. 1st dose of Latuda given will stop melatonin. Mirtazapine in case contributing factor to daytime lethargy check labs in the morning monitor for dehydration patient on Lasix 03/10/2024 Patient with slowed mentation dulled knows name place BUN somewhat elevated electrolytes within normal limits LFTs mildly increased Stop melatonin. Mirtazapine may be contributing to lethargy lower Wellbutrin to 150 mg daily recheck LFTs consider ECT check UA Aricept held hepatitis screen 03/12 continue tx. 03/13 continue tx. 03/14: In bed most of shift. Pt reports feeling tired ; per nursing, pt slept 10 hours last night. Delayed responses, appears thought blocking. Pt denies SI/HI/VH/AH. Showered. Continue current tx plan. 03/15/24 Inc latuda 40 mg daily cont lorazepam still no change introduced option of ect 03/16/24 Pt on inc latuda 40 mg wellbutrin encourage oob needs encouragement for food fluids ? some improvement noted Patient educated on: diagnosis, medication risk/benefits and ECT Informed Consent: further education needed Reason for continued inpatient stay Substantial Risk for: inability to function, rapid decompensation and med/psych decompensation Time Spent With Patient Time: Total time managing care of this patient today ____ minutes.
[2024-03-17 07:12] VITALS: BP 123/59; PULSE 75; RESP 16; TEMP 36.8; O2SAT 97
[2024-03-17] MEDS: LORazepam 0.5 MG TABLET PO ×3 (08:27→20:14)
[2024-03-17] MEDS: Liothyronine Sodium 25 MCG TABLET 12.5 MCG PO ×2 (08:27→17:29)
[2024-03-17] MEDS: buPROPion HCl XL 150 MG TAB.ER.24H PO (08:28)
[2024-03-17] MEDS: Lurasidone HCl 40 MG TABLET PO (08:28)
[2024-03-17 20:00] VITALS: BP 134/63; PULSE 86; RESP 16; TEMP 36.6; O2SAT 98
[2024-03-17] MEDS: Donepezil HCl 5 MG TABLET PO (20:14)
--- NOTE | 2024-03-17 22:30 | P.PNPSI_ITS ---
Subjective Subjective Date of Service: 03/17/24 Reason For Visit: mg/depression Subjective Notes: Conditional Voluntary Interim History: Patient seen psychiatric follow-up case reviewed in treatment team. Patient had difficulty getting up in the morning and did not eat breakfast needed much encouragement to get out of bed somewhat blank did eat lunch did accept psychiatric medication patient has also been started on liothyronine for augmentation depression Medication Compliance: Yes Mental Status Exam Mental Status Exam Narrative: Patient casually dressed somewhat blank stare slowed mentation mood flat constricted denies hallucinations or delusional knows yr month place denies si psychomotor retarded cognitively slowed marked delay in response Diagnostics Vital Signs (24Hr): Vital Signs - 24 hr 03/17/24 07:12 03/17/24 20:00 Temperature 98.2 F 97.8 F Pulse Rate 75 86 Respiratory Rate 16 16 Blood Pressure 123/59 L 134/63 Pulse Oximetry 97 98 Oxygen Delivery Method Room Air Room Air BMI result Body Mass Index 26.6 Labs 02/09/24 20:01 03/10/24 09:36 Imaging Radiology Impressions: ITS Impressions Lumbar Spine X-Ray 02/01/24 17:03 IMPRESSION: Stable appearance of the lumbar spine with compression fractures of L3 and L4. No new fractures are seen. Electronically signed by: Imtiaz Mcclellan MD 02/01/2024 06:33 PM EDT RP Medications Medications Current Medications Al Hydroxide/Mg Hydroxide (Magnesium Hydrox/Alum Hydrox 30 Ml Oral.Susp) 30 ml PO Q6H PRN PRN Reason: Heartburn/Nausea Bupropion HCl (Bupropion Hcl Xl 150 Mg Tab.Er.24h) 150 mg PO DAILY [facility] Last Admin: 03/17/24 08:28 Dose: 150 mg Donepezil HCl (Donepezil Hcl 5 Mg Tablet) 5 mg PO BEDTIME [facility] Last Admin: 03/17/24 20:14 Dose: 5 mg Hydroxyzine HCl (Hydroxyzine Hcl 25 Mg Tablet) 25 mg PO Q6H PRN PRN Reason: Anxiety or w/haldol EPS Proph Last Admin: 03/11/24 21:44 Dose: 25 mg Lidocaine (Lidocaine 4 % Patch Adh..Patch) 1 patch TRANSDERMA DAILY PRN; Protocol PRN Reason: low back pain Last Admin: 02/15/24 14:33 Dose: 1 patch Liothyronine Sodium (Liothyronine Sodium 25 Mcg Tablet) 12.5 mcg PO BID@0800,1800 [facility] Last Admin: 03/17/24 17:29 Dose: 12.5 mcg Lorazepam (Lorazepam 0.5 Mg Tablet) 0.5 mg PO TID [facility] Last Admin: 03/17/24 20:14 Dose: 0.5 mg Lurasidone HCl (Lurasidone Hcl 40 Mg Tablet) 40 mg PO DAILY [facility] Last Admin: 03/17/24 08:28 Dose: 40 mg Magnesium Hydroxide (Milk Of Magnesia 30 Ml Oral.Susp) 30 ml PO DAILY PRN PRN Reason: Constipation Last Admin: 02/28/24 11:41 Dose: 30 ml Allergies Allergies Allergy/AdvReac Type Severity Reaction Status Date / Time No Known Allergies Allergy Verified 01/29/24 05:53 Assessment & Plan Assessment & Plan (1) Bipolar disorder, most recent episode depressed: Status: Acute Code(s): F31.30 - Bipolar disorder, current episode depressed, mild or moderate severity, unspecified (2) PTSD (post-traumatic stress disorder): Status: Acute Code(s): F43.10 - Post-traumatic stress disorder, unspecified Plan The patient is severely depressed withdrawn out of beds for periods. 1st dose of Latuda given will stop melatonin. Mirtazapine in case contributing factor to daytime lethargy check labs in the morning monitor for dehydration patient on Lasix 03/10/2024 Patient with slowed mentation dulled knows name place BUN somewhat elevated electrolytes within normal limits LFTs mildly increased Stop melatonin. Mirtazapine may be contributing to lethargy lower Wellbutrin to 150 mg daily recheck LFTs consider ECT check UA Aricept held hepatitis screen 03/12 continue tx. 03/13 continue tx. 03/14: In bed most of shift. Pt reports feeling tired ; per nursing, pt slept 10 hours last night. Delayed responses, appears thought blocking. Pt denies SI/HI/VH/AH. Showered. Continue current tx plan. 03/15/24 Inc latuda 40 mg daily cont lorazepam still no change introduced option of ect 03/16/24 Pt on inc latuda 40 mg wellbutrin encourage oob needs encouragement for food fluids ? some improvement noted 03/17/24 Again discussed option of ect discussed with patient and nursing need to take Latuda with food check TSH liothyronine use for antidepressant augmentation get med clearance for ect Patient educated on: diagnosis Informed Consent: further education needed Reason for continued inpatient stay Substantial Risk for: inability to function, rapid decompensation and med/psych decompensation Time Spent With Patient Time: Total time managing care of this patient today _30___ minutes.
[2024-03-18 07:30] VITALS: BP 103/59; PULSE 81; RESP 16; TEMP 36.8; O2SAT 96
--- NOTE | 2024-03-18 08:00 | ECG_ITS ---
Test Reason : POSSIBLE ECT PREOP Blood Pressure : / mmHG Vent. Rate : 072 BPM Atrial Rate : 072 BPM P-R Int : 148 ms QRS Dur : 096 ms QT Int : 394 ms P-R-T Axes : 071 -10 040 degrees QTc Int : 431 ms Normal sinus rhythm Normal ECG When compared with ECG of 29-JAN-2024 18:12, No significant change was found Referred By: Hugh Brian Electronically Signed By:Asael Rankin
[2024-03-18 08:41] LABS: MANUAL DIFF FLAG NO
[2024-03-18 08:44] LABS: Basophils Percent Auto 0.5 % (0-2); Eosinophils Absolute Auto 0.1 X10*3/uL (0.0-0.4); Eosinophils Percent Auto 0.8 % (0-4); Hematocrit 41.6 % (37.0-47.0); Hemoglobin 13.4 g/dl (12.0-16.0); Imm Gran Abs Auto 0.03 X10*3/uL (0.00-0.03); Imm Gran Pct Auto 0.4 % (0.0-0.4); Lymphocytes Absolute Auto 1.8 X10*3/uL (1.2-4.9); Mean Corpuscular HGB Conc 32.2 g/dl (31.0-35.0); Mean Corpuscular Hemoglobin 28.5 pg (27.0-33.0); Mean Corpuscular Volume 88.5 fL (80.0-98.0); Mean Platelet Volume 9.3 fL (9.4-12.3); Monocytes Absolute Auto 0.5 X10*3/uL (0.1-1.2); Monocytes Percent Auto 6.4 % (2-11); Neutrophils Absolute Auto 5.1 x10*3/uL (2.0-8.3); Neutrophils Percent Auto 67.9 % (45-73); Platelet Count 316 X10*3/uL (160-400); Red Cell Distribution Width 12.8 % (11.0-16.0); White Blood Count 7.5 X10*3/uL (4.8-10.8)
[2024-03-18 09:10] LABS: Alanine Aminotransferase 26 U/L (0-31); Albumin Level 3.6 g/dL (3.5-5.0); Alkaline Phosphatase 100 U/L (39-117); Anion Gap 11 (12-20); Aspartate Amino Transferase 27 U/L (5-31); Bilirubin Total 0.3 mg/dL (0.0-1.0); Blood Urea Nitrogen 12 mg/dL (9-16); Carbon Dioxide 29 mmol/L (22-29); Chloride 105 mmol/L (96-108); Creatinine Clr Calc Pharmacy 57.6; Estimated Glomerular Filt Rate > 60; Glucose Fasting 97 mg/dL (60-99); Potassium 4.2 mmol/L (3.3-5.1); Sodium 141 mmol/L (135-145); Total Protein 6.7 g/dL (6.5-8.0)
[2024-03-18] MEDS: buPROPion HCl XL 150 MG TAB.ER.24H PO (09:14)
[2024-03-18] MEDS: Liothyronine Sodium 25 MCG TABLET 12.5 MCG PO ×2 (09:14→17:14)
[2024-03-18] MEDS: LORazepam 0.5 MG TABLET PO ×3 (09:14→20:50)
[2024-03-18 10:16] LABS: Free T4 (Free Thyroxine) 0.73 ng/dL (0.71-1.85)
[2024-03-18] MEDS: Lurasidone HCl 40 MG TABLET PO (12:40)
--- NOTE | 2024-03-18 19:09 | P.PNPSI_ITS ---
Subjective Subjective Date of Service: 03/18/24 Reason For Visit: mg/depression Subjective Notes: Conditional Voluntary Interim History: Patient remains mostly in bed lethargic a motivational flat denies feeling depressed needs encouragement to get out of bed to eat. No mg no improvement with Ativan liothyronine started Latuda change to later in the day needs to be given with food Mental Status Exam Mental Status Exam Narrative: Patient casually dressed somewhat blank stare slowed mentation mood described as okay constricted affect denies hallucinations or delusional knows yr month place does state she does not feel right denies si psychomotor retarded cognitively slowed marked delay in response ongoing Diagnostics Vital Signs (24Hr): Vital Signs - 24 hr 03/17/24 20:00 03/18/24 07:30 Temperature 97.8 F 98.2 F Pulse Rate 86 81 Respiratory Rate 16 16 Blood Pressure 134/63 103/59 L Pulse Oximetry 98 96 Oxygen Delivery Method Room Air Room Air BMI result Body Mass Index 26.6 Labs 03/18/24 08:17 03/18/24 08:17 Labs: Laboratory Results - last 48 hr 03/18/24 08:17 WBC 7.5 RBC 4.70 Hgb 13.4 Hct 41.6 MCV 88.5 MCH 28.5 MCHC 32.2 RDW 12.8 Plt Count 316 MPV 9.3 L Immature Gran % (Auto) 0.4 Neut % (Auto) 67.9 Lymph % (Auto) 24.0 [place] % (Auto) 6.4 Eos % (Auto) 0.8 Baso % (Auto) 0.5 Lymph # (Auto) 1.8 [place] # (Auto) 0.5 Eos # (Auto) 0.1 Baso # (Auto) 0.0 Abs Immat Gran (auto) 0.03 Absolute Neuts (auto) 5.1 Absolute Nucleated RBC 0.000 Nucleated RBC % (auto) 0.0 Sodium 141 Potassium 4.2 Chloride 105 Carbon Dioxide 29 Anion Gap 11 L BUN 12 Creatinine 0.84 Estim Creat Clear Calc 57.6 Estimated GFR > 60 Fasting Glucose 97 Calcium 9.0 Total Bilirubin 0.3 AST 27 ALT 26 Alkaline Phosphatase 100 Total Protein 6.7 Albumin 3.6 TSH 0.10 L Free T4 0.73 Imaging Radiology Impressions: ITS Impressions Lumbar Spine X-Ray 02/01/24 17:03 IMPRESSION: Stable appearance of the lumbar spine with compression fractures of L3 and L4. No new fractures are seen. Electronically signed by: Imtiaz Mcclellan MD 02/01/2024 06:33 PM EDT Medications Medications Current Medications Al Hydroxide/Mg Hydroxide (Magnesium Hydrox/Alum Hydrox 30 Ml Oral.Susp) 30 ml PO Q6H PRN PRN Reason: Heartburn/Nausea Bupropion HCl (Bupropion Hcl Xl 150 Mg Tab.Er.24h) 150 mg PO DAILY [facility] Last Admin: 03/18/24 09:14 Dose: 150 mg Donepezil HCl (Donepezil Hcl 5 Mg Tablet) 5 mg PO BEDTIME [facility] Last Admin: 03/17/24 20:14 Dose: 5 mg Hydroxyzine HCl (Hydroxyzine Hcl 25 Mg Tablet) 25 mg PO Q6H PRN PRN Reason: Anxiety or w/haldol EPS Proph Last Admin: 03/11/24 21:44 Dose: 25 mg Lidocaine (Lidocaine 4 % Patch Adh..Patch) 1 patch TRANSDERMA DAILY PRN; Protocol PRN Reason: low back pain Last Admin: 02/15/24 14:33 Dose: 1 patch Liothyronine Sodium (Liothyronine Sodium 25 Mcg Tablet) 12.5 mcg PO BID@0800,1800 [facility] Last Admin: 03/18/24 17:14 Dose: 12.5 mcg Lorazepam (Lorazepam 0.5 Mg Tablet) 0.5 mg PO TID [facility] Last Admin: 03/18/24 16:08 Dose: 0.5 mg Lurasidone HCl (Lurasidone Hcl 40 Mg Tablet) 40 mg PO DAILY@1230 [facility] Last Admin: 03/18/24 12:40 Dose: 40 mg Magnesium Hydroxide (Milk Of Magnesia 30 Ml Oral.Susp) 30 ml PO DAILY PRN PRN Reason: Constipation Last Admin: 02/28/24 11:41 Dose: 30 ml Allergies Allergies Allergy/AdvReac Type Severity Reaction Status Date / Time No Known Allergies Allergy Verified 01/29/24 05:53 Assessment & Plan Assessment & Plan (1) Bipolar disorder, most recent episode depressed: Status: Acute Code(s): F31.30 - Bipolar disorder, current episode depressed, mild or moderate severity, unspecified (2) PTSD (post-traumatic stress disorder): Status: Acute Code(s): F43.10 - Post-traumatic stress disorder, unspecified Plan The patient is severely depressed withdrawn out of beds for periods. 1st dose of Latuda given will stop melatonin. Mirtazapine in case contributing factor to daytime lethargy check labs in the morning monitor for dehydration patient on Lasix 03/10/2024 Patient with slowed mentation dulled knows name place BUN somewhat elevated electrolytes within normal limits LFTs mildly increased Stop melatonin. Mirtazapine may be contributing to lethargy lower Wellbutrin to 150 mg daily recheck LFTs consider ECT check UA Aricept held hepatitis screen 03/12 continue tx. 03/13 continue tx. 03/14: In bed most of shift. Pt reports feeling tired ; per nursing, pt slept 10 hours last night. Delayed responses, appears thought blocking. Pt denies SI/HI/VH/AH. Showered. Continue current tx plan. 03/15/24 Inc latuda 40 mg daily cont lorazepam still no change introduced option of ect 03/16/24 Pt on inc latuda 40 mg wellbutrin encourage oob needs encouragement for food fluids ? some improvement noted 03/17/24 Again discussed option of ect discussed with patient and nursing need to take Latuda with food check TSH liothyronine use for antidepressant augmentation get med clearance for ect 03/18/2024 Stop lorazepam does not appear to be helpful will start low-dose Depakote had similar experience on Geriatrics previously strongly consider ECT Patient educated on: diagnosis, medication risk/benefits and ECT Informed Consent: further education needed Reason for continued inpatient stay Substantial Risk for: rapid decompensation Time Spent With Patient Time: Total time managing care of this patient today ____ minutes.
[2024-03-18 20:00] VITALS: BP 112/60; PULSE 87; RESP 18; TEMP 36.9; O2SAT 96
[2024-03-18] MEDS: Donepezil HCl 5 MG TABLET PO (20:50)
[2024-03-19 07:05] VITALS: BP 127/59; PULSE 66; RESP 14; TEMP 36.5; O2SAT 97
--- NOTE | 2024-03-19 08:00 | P.PNPSI_ITS ---
Subjective Subjective Date of Service: 03/19/24 Reason For Visit: mg/depression Subjective Notes: Conditional Voluntary Interim History: The nursing staff reported the patient had been flat withdrawn, compliant with medications but she has not attend to groups. She spent most of the time in bed and pleasant. Isolative depressed with slow and delayed responses. On interview the patient reports that she is okay but she looks catatonic. The team is working on possible ECT for severe depression and symptoms of catatonia.. Mental Status Exam Mental Status Exam Patient Appearance: Appropriate Patient Orientation: Person and Situation Level of Consciousness: Awake Patient Behavior: Guarded and Passive Mood Description: Withdrawn Affect Description: Blunted Ability to Follow Directions: Fair Speech Pattern: Impoverished Hallucinations: None Delusions: Not Present Thought Process: Slowed Thinking Thought Content: positive for [place] and positive for Thought Blocking Judgement: Poor Diagnostics Vital Signs (24Hr): Vital Signs - 24 hr 03/18/24 20:00 Temperature 98.4 F Pulse Rate 87 Respiratory Rate 18 Blood Pressure 112/60 Pulse Oximetry 96 Oxygen Delivery Method Room Air BMI result Body Mass Index 26.6 Labs 03/18/24 08:17 03/18/24 08:17 Labs: Laboratory Results - last 48 hr 03/18/24 08:17 WBC 7.5 RBC 4.70 Hgb 13.4 Hct 41.6 MCV 88.5 MCH 28.5 MCHC 32.2 RDW 12.8 Plt Count 316 MPV 9.3 L Immature Gran % (Auto) 0.4 Neut % (Auto) 67.9 Lymph % (Auto) 24.0 [place] % (Auto) 6.4 Eos % (Auto) 0.8 Baso % (Auto) 0.5 Lymph # (Auto) 1.8 [place] # (Auto) 0.5 Eos # (Auto) 0.1 Baso # (Auto) 0.0 Abs Immat Gran (auto) 0.03 Absolute Neuts (auto) 5.1 Absolute Nucleated RBC 0.000 Nucleated RBC % (auto) 0.0 Sodium 141 Potassium 4.2 Chloride 105 Carbon Dioxide 29 Anion Gap 11 L BUN 12 Creatinine 0.84 Estim Creat Clear Calc 57.6 Estimated GFR > 60 Fasting Glucose 97 Calcium 9.0 Total Bilirubin 0.3 AST 27 ALT 26 Alkaline Phosphatase 100 Total Protein 6.7 Albumin 3.6 TSH 0.10 L Free T4 0.73 Imaging Radiology Impressions: ITS Impressions Lumbar Spine X-Ray 02/01/24 17:03 IMPRESSION: Stable appearance of the lumbar spine with compression fractures of L3 and L4. No new fractures are seen. Electronically signed by: Imtiaz Mcclellan MD 02/01/2024 06:33 PM EDT Medications Medications Current Medications Al Hydroxide/Mg Hydroxide (Magnesium Hydrox/Alum Hydrox 30 Ml Oral.Susp) 30 ml PO Q6H PRN PRN Reason: Heartburn/Nausea Bupropion HCl (Bupropion Hcl Xl 150 Mg Tab.Er.24h) 150 mg PO DAILY [facility] Last Admin: 03/18/24 09:14 Dose: 150 mg Donepezil HCl (Donepezil Hcl 5 Mg Tablet) 5 mg PO BEDTIME [facility] Last Admin: 03/18/24 20:50 Dose: 5 mg Hydroxyzine HCl (Hydroxyzine Hcl 25 Mg Tablet) 25 mg PO Q6H PRN PRN Reason: Anxiety or w/haldol EPS Proph Last Admin: 03/11/24 21:44 Dose: 25 mg Lidocaine (Lidocaine 4 % Patch Adh..Patch) 1 patch TRANSDERMA DAILY PRN; Protocol PRN Reason: low back pain Last Admin: 02/15/24 14:33 Dose: 1 patch Liothyronine Sodium (Liothyronine Sodium 25 Mcg Tablet) 12.5 mcg PO BID@0800,1800 [facility] Last Admin: 03/18/24 17:14 Dose: 12.5 mcg Lorazepam (Lorazepam 0.5 Mg Tablet) 0.5 mg PO BEDTIME [facility] Last Admin: 03/18/24 20:50 Dose: 0.5 mg Lurasidone HCl (Lurasidone Hcl 40 Mg Tablet) 40 mg PO DAILY@1230 [facility] Last Admin: 03/18/24 12:40 Dose: 40 mg Magnesium Hydroxide (Milk Of Magnesia 30 Ml Oral.Susp) 30 ml PO DAILY PRN PRN Reason: Constipation Last Admin: 02/28/24 11:41 Dose: 30 ml Allergies Allergies Allergy/AdvReac Type Severity Reaction Status Date / Time No Known Allergies Allergy Verified 01/29/24 05:53 Assessment & Plan Assessment & Plan (1) Bipolar disorder, most recent episode depressed: Status: Acute Code(s): F31.30 - Bipolar disorder, current episode depressed, mild or moderate severity, unspecified (2) PTSD (post-traumatic stress disorder): Status: Acute Code(s): F43.10 - Post-traumatic stress disorder, unspecified Plan The patient is severely depressed withdrawn out of beds for periods. 1st dose of Latuda given will stop melatonin. Mirtazapine in case contributing factor to daytime lethargy check labs in the morning monitor for dehydration patient on Lasix 03/10/2024 Patient with slowed mentation dulled knows name place BUN somewhat elevated electrolytes within normal limits LFTs mildly increased Stop melatonin. Mirtazapine may be contributing to lethargy lower Wellbutrin to 150 mg daily recheck LFTs consider ECT check UA Aricept held hepatitis screen 03/12 continue tx. 03/13 continue tx. 03/14: In bed most of shift. Pt reports feeling tired ; per nursing, pt slept 10 hours last night. Delayed responses, appears thought blocking. Pt denies SI/HI/VH/AH. Showered. Continue current tx plan. 03/15/24 Inc latuda 40 mg daily cont lorazepam still no change introduced option of ect 03/16/24 Pt on inc latuda 40 mg wellbutrin encourage oob needs encouragement for food fluids ? some improvement noted 03/17/24 Again discussed option of ect discussed with patient and nursing need to take Latuda with food check TSH liothyronine use for antidepressant augmentation get med clearance for ect 03/18/2024 Stop lorazepam does not appear to be helpful will start low-dose Depakote had similar experience on Geriatrics previously strongly consider ECT 03/19 the patient remains hypoactive no changes in her mental status. Reason for continued inpatient stay Substantial Risk for: inability to function, rapid decompensation and med/psych decompensation Time Spent With Patient Time: Total time managing care of this patient today __20__ minutes.
[2024-03-19] MEDS: Liothyronine Sodium 25 MCG TABLET 12.5 MCG PO ×2 (08:58→18:06)
[2024-03-19] MEDS: buPROPion HCl XL 150 MG TAB.ER.24H PO (08:58)
[2024-03-19] MEDS: Lurasidone HCl 40 MG TABLET PO (12:22)
[2024-03-19 20:00] VITALS: BP 109/58; PULSE 86; RESP 16; TEMP 37.1; O2SAT 96
[2024-03-19] MEDS: LORazepam 0.5 MG TABLET PO (21:36)
[2024-03-19] MEDS: Donepezil HCl 5 MG TABLET PO (21:36)
[2024-03-20 07:10] VITALS: BP 98/61; PULSE 84; RESP 14; TEMP 36.4; O2SAT 95
--- NOTE | 2024-03-20 07:28 | HO.PSYCHPN ---
Subjective Subjective Date of Service: 03/20/24 Reason For Visit: mg/depression Subjective Notes: Conditional Voluntary Interim History: The nursing staff reported the patient had been medication compliant, isolative with poor energy also her latency on thought processes is very long she would looks disheveled. Slept 7 hours. The staff has noticed that today in the morning she looks slightly brighter and took a shower. On interview the patient denies new symptoms Mental Status Exam Mental Status Exam Patient Appearance: Appropriate Patient Orientation: Person and Situation Level of Consciousness: Awake Patient Behavior: Guarded and Passive Mood Description: Withdrawn Affect Description: Blunted Ability to Follow Directions: Good Speech Pattern: Impoverished Hallucinations: None Delusions: Not Present Thought Process: Distracted and Slowed Thinking Thought Content: positive for [place] and positive for Thought Blocking Judgement: Fair Diagnostics Vital Signs (24Hr): Vital Signs - 24 hr 03/19/24 20:00 Temperature 98.8 F Pulse Rate 86 Respiratory Rate 16 Blood Pressure 109/58 L Pulse Oximetry 96 Oxygen Delivery Method Room Air BMI result Body Mass Index 26.6 Labs 03/18/24 08:17 03/18/24 08:17 Labs: Laboratory Results - last 48 hr 03/18/24 08:17 WBC 7.5 RBC 4.70 Hgb 13.4 Hct 41.6 MCV 88.5 MCH 28.5 MCHC 32.2 RDW 12.8 Plt Count 316 MPV 9.3 L Immature Gran % (Auto) 0.4 Neut % (Auto) 67.9 Lymph % (Auto) 24.0 [place] % (Auto) 6.4 Eos % (Auto) 0.8 Baso % (Auto) 0.5 Lymph # (Auto) 1.8 [place] # (Auto) 0.5 Eos # (Auto) 0.1 Baso # (Auto) 0.0 Abs Immat Gran (auto) 0.03 Absolute Neuts (auto) 5.1 Absolute Nucleated RBC 0.000 Nucleated RBC % (auto) 0.0 Sodium 141 Potassium 4.2 Chloride 105 Carbon Dioxide 29 Anion Gap 11 L BUN 12 Creatinine 0.84 Estim Creat Clear Calc 57.6 Estimated GFR > 60 Fasting Glucose 97 Calcium 9.0 Total Bilirubin 0.3 AST 27 ALT 26 Alkaline Phosphatase 100 Total Protein 6.7 Albumin 3.6 TSH 0.10 L Free T4 0.73 Imaging Radiology Impressions: ITS Impressions Lumbar Spine X-Ray 02/01/24 17:03 IMPRESSION: Stable appearance of the lumbar spine with compression fractures of L3 and L4. No new fractures are seen. Electronically signed by: Imtiaz Mcclellan MD 02/01/2024 06:33 PM EDT RP Medications Medications Current Medications Al Hydroxide/Mg Hydroxide (Magnesium Hydrox/Alum Hydrox 30 Ml Oral.Susp) 30 ml PO Q6H PRN PRN Reason: Heartburn/Nausea Bupropion HCl (Bupropion Hcl Xl 150 Mg Tab.Er.24h) 150 mg PO DAILY [facility] Last Admin: 03/19/24 08:58 Dose: 150 mg Donepezil HCl (Donepezil Hcl 5 Mg Tablet) 5 mg PO BEDTIME [facility] Last Admin: 03/19/24 21:36 Dose: 5 mg Hydroxyzine HCl (Hydroxyzine Hcl 25 Mg Tablet) 25 mg PO Q6H PRN PRN Reason: Anxiety or w/haldol EPS Proph Last Admin: 03/11/24 21:44 Dose: 25 mg Lidocaine (Lidocaine 4 % Patch Adh..Patch) 1 patch TRANSDERMA DAILY PRN; Protocol PRN Reason: low back pain Last Admin: 02/15/24 14:33 Dose: 1 patch Liothyronine Sodium (Liothyronine Sodium 25 Mcg Tablet) 12.5 mcg PO BID@0800,1800 [facility] Last Admin: 03/19/24 18:06 Dose: 12.5 mcg Lorazepam (Lorazepam 0.5 Mg Tablet) 0.5 mg PO BEDTIME [facility] Last Admin: 03/19/24 21:36 Dose: 0.5 mg Lurasidone HCl (Lurasidone Hcl 40 Mg Tablet) 40 mg PO DAILY@1230 [facility] Last Admin: 03/19/24 12:22 Dose: 40 mg Magnesium Hydroxide (Milk Of Magnesia 30 Ml Oral.Susp) 30 ml PO DAILY PRN PRN Reason: Constipation Last Admin: 02/28/24 11:41 Dose: 30 ml Allergies Allergies Allergy/AdvReac Type Severity Reaction Status Date / Time No Known Allergies Allergy Verified 01/29/24 05:53 Assessment & Plan Assessment & Plan (1) Bipolar disorder, most recent episode depressed: Status: Acute Code(s): F31.30 - Bipolar disorder, current episode depressed, mild or moderate severity, unspecified (2) PTSD (post-traumatic stress disorder): Status: Acute Code(s): F43.10 - Post-traumatic stress disorder, unspecified Plan The patient is severely depressed withdrawn out of beds for periods. 1st dose of Latuda given will stop melatonin. Mirtazapine in case contributing factor to daytime lethargy check labs in the morning monitor for dehydration patient on Lasix 03/10/2024 Patient with slowed mentation dulled knows name place BUN somewhat elevated electrolytes within normal limits LFTs mildly increased Stop melatonin. Mirtazapine may be contributing to lethargy lower Wellbutrin to 150 mg daily recheck LFTs consider ECT check UA Aricept held hepatitis screen 03/12 continue tx. 03/13 continue tx. 03/14: In bed most of shift. Pt reports feeling tired ; per nursing, pt slept 10 hours last night. Delayed responses, appears thought blocking. Pt denies SI/HI/VH/AH. Showered. Continue current tx plan. 03/15/24 Inc latuda 40 mg daily cont lorazepam still no change introduced option of ect 03/16/24 Pt on inc latuda 40 mg wellbutrin encourage oob needs encouragement for food fluids ? some improvement noted 03/17/24 Again discussed option of ect discussed with patient and nursing need to take Latuda with food check TSH liothyronine use for antidepressant augmentation get med clearance for ect 03/18/2024 Stop lorazepam does not appear to be helpful will start low-dose Depakote had similar experience on Geriatrics previously strongly consider ECT 03/19 the patient remains hypoactive no changes in her mental status. 03/20 no changes in her mental status, slight improvement on her range of affect. Keep same treatment Reason for continued inpatient stay Substantial Risk for: inability to function, rapid decompensation and med/psych decompensation Time Spent With Patient Time: Total time managing care of this patient today __20__ minutes.
[2024-03-20] MEDS: Liothyronine Sodium 25 MCG TABLET 12.5 MCG PO ×2 (08:44→18:20)
[2024-03-20] MEDS: buPROPion HCl XL 150 MG TAB.ER.24H PO (08:45)
[2024-03-20] MEDS: Lurasidone HCl 40 MG TABLET PO (11:41)
[2024-03-20 19:05] VITALS: BP 107/55; PULSE 89; TEMP 36.7; O2SAT 95
[2024-03-20] MEDS: Donepezil HCl 5 MG TABLET PO (21:12)
[2024-03-20] MEDS: LORazepam 0.5 MG TABLET PO (21:12)
[2024-03-21 08:00] VITALS: BP 95/61; PULSE 71; RESP 14; TEMP 36.6; O2SAT 95
[2024-03-21] MEDS: Liothyronine Sodium 25 MCG TABLET 12.5 MCG PO ×2 (10:04→18:25)
[2024-03-21] MEDS: buPROPion HCl XL 150 MG TAB.ER.24H PO (10:04)
[2024-03-21] MEDS: Lurasidone HCl 40 MG TABLET PO (12:49)
--- NOTE | 2024-03-21 15:43 | P.PNPSI_ITS ---
Subjective Subjective Date of Service: 03/21/24 Reason For Visit: mg/depression Interim History: in bed, increased KAYCEE, perhaps thought blocking. unable to answer questions about ECT. per staff, dep 5. thursday in bed. thursday showered and watched some TV. isolative. incr KAYCEE. not attending groups. slept about 9 hours. Mental Status Exam Mental Status Exam Narrative: Pt is alert and oriented; calm, PMR; dressed in casual attire; mood is described not so good; eye contact fair; Speech is decr rate, loudness, amount. incr KAYCEE. thoughts linear and logical, slowed, paucity. affect blunted. fair insight and judgment. no SI/HI/VH/AH expressed. Diagnostics Vital Signs (24Hr): Vital Signs - 24 hr 03/20/24 19:05 03/21/24 08:00 Temperature 98.1 F 97.9 F Pulse Rate 89 71 Respiratory Rate 14 Blood Pressure 107/55 L 95/61 Pulse Oximetry 95 95 Oxygen Delivery Method Room Air Room Air BMI result Body Mass Index 26.6 Labs 03/18/24 08:17 03/18/24 08:17 Imaging Radiology Impressions: ITS Impressions Lumbar Spine X-Ray 02/01/24 17:03 IMPRESSION: Stable appearance of the lumbar spine with compression fractures of L3 and L4. No new fractures are seen. Electronically signed by: Imtiaz Mcclellan MD 02/01/2024 06:33 PM EDT RP Medications Medications Current Medications Al Hydroxide/Mg Hydroxide (Magnesium Hydrox/Alum Hydrox 30 Ml Oral.Susp) 30 ml PO Q6H PRN PRN Reason: Heartburn/Nausea Bupropion HCl (Bupropion Hcl Xl 150 Mg Tab.Er.24h) 150 mg PO DAILY [facility] Last Admin: 03/21/24 10:04 Dose: 150 mg Donepezil HCl (Donepezil Hcl 5 Mg Tablet) 5 mg PO BEDTIME [facility] Last Admin: 03/20/24 21:12 Dose: 5 mg Hydroxyzine HCl (Hydroxyzine Hcl 25 Mg Tablet) 25 mg PO Q6H PRN PRN Reason: Anxiety or w/haldol EPS Proph Last Admin: 03/11/24 21:44 Dose: 25 mg Lidocaine (Lidocaine 4 % Patch Adh..Patch) 1 patch TRANSDERMA DAILY PRN; Protocol PRN Reason: low back pain Last Admin: 02/15/24 14:33 Dose: 1 patch Liothyronine Sodium (Liothyronine Sodium 25 Mcg Tablet) 12.5 mcg PO BID@0800,1800 [facility] Last Admin: 03/21/24 10:04 Dose: 12.5 mcg Lorazepam (Lorazepam 0.5 Mg Tablet) 0.5 mg PO BEDTIME [facility] Last Admin: 03/20/24 21:12 Dose: 0.5 mg Lurasidone HCl (Lurasidone Hcl 40 Mg Tablet) 40 mg PO DAILY@1230 [facility] Last Admin: 03/21/24 12:49 Dose: 40 mg Magnesium Hydroxide (Milk Of Magnesia 30 Ml Oral.Susp) 30 ml PO DAILY PRN PRN Reason: Constipation Last Admin: 02/28/24 11:41 Dose: 30 ml Allergies Allergies Allergy/AdvReac Type Severity Reaction Status Date / Time No Known Allergies Allergy Verified 01/29/24 05:53 Assessment & Plan Assessment & Plan (1) Bipolar disorder, most recent episode depressed: Status: Acute Code(s): F31.30 - Bipolar disorder, current episode depressed, mild or moderate severity, unspecified (2) PTSD (post-traumatic stress disorder): Status: Acute Code(s): F43.10 - Post-traumatic stress disorder, unspecified Plan The patient is severely depressed withdrawn out of beds for periods. 1st dose of Latuda given will stop melatonin. Mirtazapine in case contributing factor to daytime lethargy check labs in the morning monitor for dehydration patient on Lasix 03/10/2024 Patient with slowed mentation dulled knows name place BUN somewhat elevated electrolytes within normal limits LFTs mildly increased Stop melatonin. Mirtazapine may be contributing to lethargy lower Wellbutrin to 150 mg daily recheck LFTs consider ECT check UA Aricept held hepatitis screen 03/12 continue tx. 03/13 continue tx. 03/14: In bed most of shift. Pt reports feeling tired ; per nursing, pt slept 10 hours last night. Delayed responses, appears thought blocking. Pt denies SI/HI/VH/AH. Showered. Continue current tx plan. 03/15/24 Inc latuda 40 mg daily cont lorazepam still no change introduced option of ect 03/16/24 Pt on inc latuda 40 mg wellbutrin encourage oob needs encouragement for food fluids ? some improvement noted 03/17/24 Again discussed option of ect discussed with patient and nursing need to take Latuda with food check TSH liothyronine use for antidepressant augmentation get med clearance for ect 03/18/2024 Stop lorazepam does not appear to be helpful will start low-dose Depakote had similar experience on Geriatrics previously strongly consider ECT 03/19 the patient remains hypoactive no changes in her mental status. 03/20 no changes in her mental status, slight improvement on her range of affect. Keep same treatment 03/21: depressed. blunted. not responding to medications. T/C ECT. Reason for continued inpatient stay Substantial Risk for: inability to function Time Spent With Patient Time: Total time managing care of this patient today _25___ minutes.
[2024-03-21 20:00] VITALS: BP 99/75; PULSE 84; RESP 16; TEMP 36.5; O2SAT 96
[2024-03-21 21:00] VITALS: BP 108/57; PULSE 80
[2024-03-21] MEDS: LORazepam 0.5 MG TABLET PO (21:14)
[2024-03-21] MEDS: Donepezil HCl 5 MG TABLET PO (21:15)
[2024-03-22 07:31] VITALS: BP 112/60; PULSE 79; RESP 16; TEMP 36.5; O2SAT 98
[2024-03-22] MEDS: Liothyronine Sodium 25 MCG TABLET 12.5 MCG PO ×2 (08:47→18:30)
[2024-03-22] MEDS: buPROPion HCl XL 150 MG TAB.ER.24H PO (08:47)
[2024-03-22] MEDS: Lurasidone HCl 40 MG TABLET PO (12:42)
--- NOTE | 2024-03-22 13:20 | HO.PSYCHPN ---
Subjective Subjective Date of Service: 03/22/24 Reason For Visit: mg/depression Interim History: up and about the unit, attending art group. more verbal and spontaneous. not feeling better emotionally, however. encouraged to persevere. agreeable to continue with current mgmt. per staff, in bed much of the day yesterday. endorsing depression. denies anxiety. did not eat bfast or lunch. drinking water only. ate dinner, slept about 6 hours, showered this morning. Mental Status Exam Mental Status Exam Narrative: Pt is alert and oriented; calm, PMR; dressed in casual attire; mood is described as not so good; eye contact fair; Speech is decr rate, loudness, amount. much improved KAYCEE and amount from yesterday, however. thoughts linear and logical, slowed, paucity. affect constricted. fair insight and judgment. no SI/HI/VH/AH expressed. Diagnostics Vital Signs (24Hr): Vital Signs - 24 hr 03/21/24 20:00 03/21/24 21:00 03/22/24 07:31 Temperature 97.7 F 97.7 F Pulse Rate 84 80 79 Respiratory Rate 16 16 Blood Pressure 99/75 108/57 L 112/60 Pulse Oximetry 96 98 Oxygen Delivery Method Room Air Room Air BMI result Body Mass Index 26.6 Labs 03/18/24 08:17 03/18/24 08:17 Imaging Radiology Impressions: ITS Impressions Lumbar Spine X-Ray 02/01/24 17:03 IMPRESSION: Stable appearance of the lumbar spine with compression fractures of L3 and L4. No new fractures are seen. Electronically signed by: Imtiaz Mcclellan MD 02/01/2024 06:33 PM EDT Medications Medications Current Medications Al Hydroxide/Mg Hydroxide (Magnesium Hydrox/Alum Hydrox 30 Ml Oral.Susp) 30 ml PO Q6H PRN PRN Reason: Heartburn/Nausea Bupropion HCl (Bupropion Hcl Xl 150 Mg Tab.Er.24h) 150 mg PO DAILY [facility] Last Admin: 03/22/24 08:47 Dose: 150 mg Donepezil HCl (Donepezil Hcl 5 Mg Tablet) 5 mg PO BEDTIME [facility] Last Admin: 03/21/24 21:15 Dose: 5 mg Hydroxyzine HCl (Hydroxyzine Hcl 25 Mg Tablet) 25 mg PO Q6H PRN PRN Reason: Anxiety or w/haldol EPS Proph Last Admin: 03/11/24 21:44 Dose: 25 mg Lidocaine (Lidocaine 4 % Patch Adh..Patch) 1 patch TRANSDERMA DAILY PRN; Protocol PRN Reason: low back pain Last Admin: 02/15/24 14:33 Dose: 1 patch Liothyronine Sodium (Liothyronine Sodium 25 Mcg Tablet) 12.5 mcg PO BID@0800,1800 [facility] Last Admin: 03/22/24 08:47 Dose: 12.5 mcg Lorazepam (Lorazepam 0.5 Mg Tablet) 0.5 mg PO BEDTIME [facility] Last Admin: 03/21/24 21:14 Dose: 0.5 mg Lurasidone HCl (Lurasidone Hcl 40 Mg Tablet) 40 mg PO DAILY@1230 [facility] Last Admin: 03/22/24 12:42 Dose: 40 mg Magnesium Hydroxide (Milk Of Magnesia 30 Ml Oral.Susp) 30 ml PO DAILY PRN PRN Reason: Constipation Last Admin: 02/28/24 11:41 Dose: 30 ml Allergies Allergies Allergy/AdvReac Type Severity Reaction Status Date / Time No Known Allergies Allergy Verified 01/29/24 05:53 Assessment & Plan Assessment & Plan (1) Bipolar disorder, most recent episode depressed: Status: Acute Code(s): F31.30 - Bipolar disorder, current episode depressed, mild or moderate severity, unspecified (2) PTSD (post-traumatic stress disorder): Status: Acute Code(s): F43.10 - Post-traumatic stress disorder, unspecified Plan The patient is severely depressed withdrawn out of beds for periods. 1st dose of Latuda given will stop melatonin. Mirtazapine in case contributing factor to daytime lethargy check labs in the morning monitor for dehydration patient on Lasix 03/10/2024 Patient with slowed mentation dulled knows name place BUN somewhat elevated electrolytes within normal limits LFTs mildly increased Stop melatonin. Mirtazapine may be contributing to lethargy lower Wellbutrin to 150 mg daily recheck LFTs consider ECT check UA Aricept held hepatitis screen 03/12 continue tx. 03/13 continue tx. 03/14: In bed most of shift. Pt reports feeling tired ; per nursing, pt slept 10 hours last night. Delayed responses, appears thought blocking. Pt denies SI/HI/VH/AH. Showered. Continue current tx plan. 03/15/24 Inc latuda 40 mg daily cont lorazepam still no change introduced option of ect 03/16/24 Pt on inc latuda 40 mg wellbutrin encourage oob needs encouragement for food fluids ? some improvement noted 03/17/24 Again discussed option of ect discussed with patient and nursing need to take Latuda with food check TSH liothyronine use for antidepressant augmentation get med clearance for ect 03/18/2024 Stop lorazepam does not appear to be helpful will start low-dose Depakote had similar experience on Geriatrics previously strongly consider ECT 03/19 the patient remains hypoactive no changes in her mental status. 03/20 no changes in her mental status, slight improvement on her range of affect. Keep same treatment 03/21: depressed. blunted. not responding to medications. T/C ECT. 03/22: per staff, improved behaviors as of yesterday afternoon. up and about this morning, much less PMR and more verbal and spontaneous. continue current mgmt for now. Reason for continued inpatient stay Substantial Risk for: inability to function Time Spent With Patient Time: Total time managing care of this patient today _25___ minutes.
[2024-03-22 20:00] VITALS: BP 124/66; PULSE 82; RESP 16; TEMP 36.5; O2SAT 96
[2024-03-22] MEDS: Donepezil HCl 5 MG TABLET PO (21:04)
[2024-03-22] MEDS: LORazepam 0.5 MG TABLET PO (21:04)
[2024-03-23 07:54] VITALS: BP 120/68; PULSE 80; RESP 16; TEMP 36.3; O2SAT 96
[2024-03-23] MEDS: buPROPion HCl XL 150 MG TAB.ER.24H PO (09:05)
[2024-03-23] MEDS: Liothyronine Sodium 25 MCG TABLET 12.5 MCG PO ×2 (09:05→18:47)
[2024-03-23] MEDS: Lurasidone HCl 40 MG TABLET PO (12:55)
--- NOTE | 2024-03-23 15:03 | P.PNPSI_ITS ---
Subjective Subjective Date of Service: 03/23/24 Reason For Visit: mg/depression Interim History: in bed today, slowed a bit from yesterday, less spontaneous and verbal. continues depressed. per staff, eating, attended groups, taking meds. broader affect. slept 7 hours. Mental Status Exam Mental Status Exam Narrative: Pt is alert and oriented; calm, PMR; dressed in casual attire; mood is described as down; eye contact fair; Speech is decr rate, loudness, amount. increased KAYCEE and less voluble than yesterday. thoughts linear and logical, slowed, paucity. affect constricted. fair insight and judgment. no SI/HI/VH/AH expressed. Diagnostics Vital Signs (24Hr): Vital Signs - 24 hr 03/22/24 20:00 03/23/24 07:54 Temperature 97.7 F 97.3 F Pulse Rate 82 80 Respiratory Rate 16 16 Blood Pressure 124/66 120/68 Pulse Oximetry 96 96 Oxygen Delivery Method Room Air Room Air BMI result Body Mass Index 26.6 Labs 03/18/24 08:17 03/18/24 08:17 Imaging Radiology Impressions: ITS Impressions Lumbar Spine X-Ray 02/01/24 17:03 IMPRESSION: Stable appearance of the lumbar spine with compression fractures of L3 and L4. No new fractures are seen. Electronically signed by: Imtiaz Mcclellan MD 02/01/2024 06:33 PM EDT Medications Medications Current Medications Al Hydroxide/Mg Hydroxide (Magnesium Hydrox/Alum Hydrox 30 Ml Oral.Susp) 30 ml PO Q6H PRN PRN Reason: Heartburn/Nausea Bupropion HCl (Bupropion Hcl Xl 150 Mg Tab.Er.24h) 150 mg PO DAILY [facility] Last Admin: 03/23/24 09:05 Dose: 150 mg Donepezil HCl (Donepezil Hcl 5 Mg Tablet) 5 mg PO BEDTIME [facility] Last Admin: 03/22/24 21:04 Dose: 5 mg Hydroxyzine HCl (Hydroxyzine Hcl 25 Mg Tablet) 25 mg PO Q6H PRN PRN Reason: Anxiety or w/haldol EPS Proph Last Admin: 03/11/24 21:44 Dose: 25 mg Lidocaine (Lidocaine 4 % Patch Adh..Patch) 1 patch TRANSDERMA DAILY PRN; Protocol PRN Reason: low back pain Last Admin: 02/15/24 14:33 Dose: 1 patch Liothyronine Sodium (Liothyronine Sodium 25 Mcg Tablet) 12.5 mcg PO BID@0800,1800 [facility] Last Admin: 03/23/24 09:05 Dose: 12.5 mcg Lorazepam (Lorazepam 0.5 Mg Tablet) 0.5 mg PO BEDTIME [facility] Last Admin: 03/22/24 21:04 Dose: 0.5 mg Lurasidone HCl (Lurasidone Hcl 40 Mg Tablet) 40 mg PO DAILY@1230 [facility] Last Admin: 03/23/24 12:55 Dose: 40 mg Magnesium Hydroxide (Milk Of Magnesia 30 Ml Oral.Susp) 30 ml PO DAILY PRN PRN Reason: Constipation Last Admin: 02/28/24 11:41 Dose: 30 ml Allergies Allergies Allergy/AdvReac Type Severity Reaction Status Date / Time No Known Allergies Allergy Verified 01/29/24 05:53 Assessment & Plan Assessment & Plan (1) Bipolar disorder, most recent episode depressed: Status: Acute Code(s): F31.30 - Bipolar disorder, current episode depressed, mild or moderate severity, unspecified (2) PTSD (post-traumatic stress disorder): Status: Acute Code(s): F43.10 - Post-traumatic stress disorder, unspecified Plan The patient is severely depressed withdrawn out of beds for periods. 1st dose of Latuda given will stop melatonin. Mirtazapine in case contributing factor to daytime lethargy check labs in the morning monitor for dehydration patient on Lasix 03/10/2024 Patient with slowed mentation dulled knows name place BUN somewhat elevated electrolytes within normal limits LFTs mildly increased Stop melatonin. Mirtazapine may be contributing to lethargy lower Wellbutrin to 150 mg daily recheck LFTs consider ECT check UA Aricept held hepatitis screen 03/12 continue tx. 03/13 continue tx. 03/14: In bed most of shift. Pt reports feeling tired ; per nursing, pt slept 10 hours last night. Delayed responses, appears thought blocking. Pt denies SI/HI/VH/AH. Showered. Continue current tx plan. 03/15/24 Inc latuda 40 mg daily cont lorazepam still no change introduced option of ect 03/16/24 Pt on inc latuda 40 mg wellbutrin encourage oob needs encouragement for food fluids ? some improvement noted 03/17/24 Again discussed option of ect discussed with patient and nursing need to take Latuda with food check TSH liothyronine use for antidepressant augmentation get med clearance for ect 03/18/2024 Stop lorazepam does not appear to be helpful will start low-dose Depakote had similar experience on Geriatrics previously strongly consider ECT 03/19 the patient remains hypoactive no changes in her mental status. 03/20 no changes in her mental status, slight improvement on her range of affect. Keep same treatment 03/21: depressed. blunted. not responding to medications. T/C ECT. 03/22: per staff, improved behaviors as of yesterday afternoon. up and about this morning, much less PMR and more verbal and spontaneous. continue current mgmt for now. 03/23: in bed again today, slowed and less verbal. continue current mgmt. Reason for continued inpatient stay Substantial Risk for: inability to function Time Spent With Patient Time: Total time managing care of this patient today __25__ minutes.
[2024-03-23 20:00] VITALS: BP 103/64; PULSE 85; RESP 16; TEMP 36.5; O2SAT 96
[2024-03-23] MEDS: LORazepam 0.5 MG TABLET PO (20:29)
[2024-03-23] MEDS: Donepezil HCl 5 MG TABLET PO (20:29)
[2024-03-24 07:47] VITALS: BP 129/65; PULSE 72; RESP 16; TEMP 36.8; O2SAT 97
[2024-03-24] MEDS: buPROPion HCl XL 150 MG TAB.ER.24H PO (08:24)
[2024-03-24] MEDS: Liothyronine Sodium 25 MCG TABLET 12.5 MCG PO ×2 (08:25→17:39)
--- NOTE | 2024-03-24 11:50 | P.PNPSI_ITS ---
Subjective Subjective Date of Service: 03/24/24 Reason For Visit: mg/depression Interim History: calm, cooperative. up at [employer] group this morning. states she is having low energy and motivation, wants to stay in bed. agreeable to increase wellbutrin to 300 mg daily. per staff, isolative, withdrawn. +meds. in bed all day. less interactive than prior 2 days. slept 8 hours. no groups. Mental Status Exam Mental Status Exam Narrative: Pt is alert and oriented; calm, PMR; dressed in casual attire; mood is described not so good; eye contact fair; Speech is decr rate, loudness, amount. incr KAYCEE. thoughts linear and logical, slowed, paucity. affect blunted. fair insight and judgment. no SI/HI/VH/AH expressed. Diagnostics Vital Signs (24Hr): Vital Signs - 24 hr 03/23/24 20:00 03/24/24 07:47 Temperature 97.7 F 98.3 F Pulse Rate 85 72 Respiratory Rate 16 16 Blood Pressure 103/64 129/65 Pulse Oximetry 96 97 Oxygen Delivery Method Room Air Room Air BMI result Body Mass Index 26.6 Labs 03/18/24 08:17 03/18/24 08:17 Imaging Radiology Impressions: ITS Impressions Lumbar Spine X-Ray 02/01/24 17:03 IMPRESSION: Stable appearance of the lumbar spine with compression fractures of L3 and L4. No new fractures are seen. Electronically signed by: Imtiaz Mcclellan MD 02/01/2024 06:33 PM EDT RP Medications Medications Current Medications Al Hydroxide/Mg Hydroxide (Magnesium Hydrox/Alum Hydrox 30 Ml Oral.Susp) 30 ml PO Q6H PRN PRN Reason: Heartburn/Nausea Bupropion HCl (Bupropion Hcl Xl 300 Mg Tab.Er.24h) 300 mg PO DAILY [facility] Donepezil HCl (Donepezil Hcl 5 Mg Tablet) 5 mg PO BEDTIME [facility] Last Admin: 03/23/24 20:29 Dose: 5 mg Hydroxyzine HCl (Hydroxyzine Hcl 25 Mg Tablet) 25 mg PO Q6H PRN PRN Reason: Anxiety or w/haldol EPS Proph Last Admin: 03/11/24 21:44 Dose: 25 mg Lidocaine (Lidocaine 4 % Patch Adh..Patch) 1 patch TRANSDERMA DAILY PRN; Protocol PRN Reason: low back pain Last Admin: 02/15/24 14:33 Dose: 1 patch Liothyronine Sodium (Liothyronine Sodium 25 Mcg Tablet) 12.5 mcg PO BID@0800,1800 [facility] Last Admin: 03/24/24 08:25 Dose: 12.5 mcg Lorazepam (Lorazepam 0.5 Mg Tablet) 0.5 mg PO BEDTIME [facility] Last Admin: 03/23/24 20:29 Dose: 0.5 mg Lurasidone HCl (Lurasidone Hcl 40 Mg Tablet) 40 mg PO DAILY@1230 [facility] Last Admin: 03/23/24 12:55 Dose: 40 mg Magnesium Hydroxide (Milk Of Magnesia 30 Ml Oral.Susp) 30 ml PO DAILY PRN PRN Reason: Constipation Last Admin: 02/28/24 11:41 Dose: 30 ml Allergies Allergies Allergy/AdvReac Type Severity Reaction Status Date / Time No Known Allergies Allergy Verified 01/29/24 05:53 Assessment & Plan Assessment & Plan (1) Bipolar disorder, most recent episode depressed: Status: Acute Code(s): F31.30 - Bipolar disorder, current episode depressed, mild or moderate severity, unspecified (2) PTSD (post-traumatic stress disorder): Status: Acute Code(s): F43.10 - Post-traumatic stress disorder, unspecified Plan The patient is severely depressed withdrawn out of beds for periods. 1st dose of Latuda given will stop melatonin. Mirtazapine in case contributing factor to daytime lethargy check labs in the morning monitor for dehydration patient on Lasix 03/10/2024 Patient with slowed mentation dulled knows name place BUN somewhat elevated electrolytes within normal limits LFTs mildly increased Stop melatonin. Mirtazapine may be contributing to lethargy lower Wellbutrin to 150 mg daily recheck LFTs consider ECT check UA Aricept held hepatitis screen 03/12 continue tx. 03/13 continue tx. 03/14: In bed most of shift. Pt reports feeling tired ; per nursing, pt slept 10 hours last night. Delayed responses, appears thought blocking. Pt denies SI/HI/VH/AH. Showered. Continue current tx plan. 03/15/24 Inc latuda 40 mg daily cont lorazepam still no change introduced option of ect 03/16/24 Pt on inc latuda 40 mg wellbutrin encourage oob needs encouragement for food fluids ? some improvement noted 03/17/24 Again discussed option of ect discussed with patient and nursing need to take Latuda with food check TSH liothyronine use for antidepressant augmentation get med clearance for ect 03/18/2024 Stop lorazepam does not appear to be helpful will start low-dose Depakote had similar experience on Geriatrics previously strongly consider ECT 03/19 the patient remains hypoactive no changes in her mental status. 03/20 no changes in her mental status, slight improvement on her range of affect. Keep same treatment 03/21: depressed. blunted. not responding to medications. T/C ECT. 03/22: per staff, improved behaviors as of yesterday afternoon. up and about this morning, much less PMR and more verbal and spontaneous. continue current mgmt for now. 03/23: in bed again today, slowed and less verbal. continue current mgmt. 03/24: increase wellbutrin to 300 mg daily. up at art group today. struggling to maintain recent improvements. Reason for continued inpatient stay Substantial Risk for: inability to function and rapid decompensation Time Spent With Patient Time: Total time managing care of this patient today __25__ minutes.
[2024-03-24] MEDS: Lurasidone HCl 40 MG TABLET PO (12:26)
[2024-03-24 12:57] VITALS: BMI 57.2
[2024-03-24 20:00] VITALS: BP 132/61; PULSE 78; RESP 16; TEMP 36.6; O2SAT 97
[2024-03-24] MEDS: LORazepam 0.5 MG TABLET PO (20:06)
[2024-03-24] MEDS: Donepezil HCl 5 MG TABLET PO (20:06)
[2024-03-25 07:33] VITALS: BP 121/57; PULSE 80; RESP 12; TEMP 36.4; O2SAT 98
[2024-03-25] MEDS: Liothyronine Sodium 25 MCG TABLET 12.5 MCG PO ×2 (10:23→19:01)
[2024-03-25] MEDS: buPROPion HCl XL 300 MG TAB.ER.24H PO (10:23)
--- NOTE | 2024-03-25 13:04 | P.PNPSI_ITS ---
Subjective Subjective Date of Service: 03/25/24 Reason For Visit: mg/depression Interim History: in bed today, less energetic. no complaints or requests. per staff, feeling a little better, but still not herself. slept 7 hours. Mental Status Exam Mental Status Exam Narrative: Pt is alert and oriented; calm, PMR; dressed in casual attire; mood is described as depressed; eye contact fair; Speech is decr rate, loudness, amount. incr KAYCEE. thoughts linear and logical, slowed, paucity. affect blunted. fair insight and judgment. no SI/HI/VH/AH expressed. Diagnostics Vital Signs (24Hr): Vital Signs - 24 hr 03/24/24 20:00 03/25/24 07:33 Temperature 98 F 97.6 F Pulse Rate 78 80 Respiratory Rate 16 12 Blood Pressure 132/61 121/57 L Pulse Oximetry 97 98 Oxygen Delivery Method Room Air Room Air BMI result Body Mass Index 57.2 Labs 03/18/24 08:17 03/18/24 08:17 Imaging Radiology Impressions: ITS Impressions Lumbar Spine X-Ray 02/01/24 17:03 IMPRESSION: Stable appearance of the lumbar spine with compression fractures of L3 and L4. No new fractures are seen. Electronically signed by: Imtiaz Mcclellan MD 02/01/2024 06:33 PM EDT RP Medications Medications Current Medications Al Hydroxide/Mg Hydroxide (Magnesium Hydrox/Alum Hydrox 30 Ml Oral.Susp) 30 ml PO Q6H PRN PRN Reason: Heartburn/Nausea Bupropion HCl (Bupropion Hcl Xl 300 Mg Tab.Er.24h) 300 mg PO DAILY [facility] Last Admin: 03/25/24 10:23 Dose: 300 mg Donepezil HCl (Donepezil Hcl 5 Mg Tablet) 5 mg PO BEDTIME [facility] Last Admin: 03/24/24 20:06 Dose: 5 mg Hydroxyzine HCl (Hydroxyzine Hcl 25 Mg Tablet) 25 mg PO Q6H PRN PRN Reason: Anxiety or w/haldol EPS Proph Last Admin: 03/11/24 21:44 Dose: 25 mg Lidocaine (Lidocaine 4 % Patch Adh..Patch) 1 patch TRANSDERMA DAILY PRN; Protocol PRN Reason: low back pain Last Admin: 02/15/24 14:33 Dose: 1 patch Liothyronine Sodium (Liothyronine Sodium 25 Mcg Tablet) 12.5 mcg PO BID@0800,1800 [facility] Last Admin: 03/25/24 10:23 Dose: 12.5 mcg Lorazepam (Lorazepam 0.5 Mg Tablet) 0.5 mg PO BEDTIME [facility] Last Admin: 03/24/24 20:06 Dose: 0.5 mg Lurasidone HCl (Lurasidone Hcl 40 Mg Tablet) 40 mg PO DAILY@1230 [facility] Last Admin: 03/24/24 12:26 Dose: 40 mg Magnesium Hydroxide (Milk Of Magnesia 30 Ml Oral.Susp) 30 ml PO DAILY PRN PRN Reason: Constipation Last Admin: 02/28/24 11:41 Dose: 30 ml Allergies Allergies Allergy/AdvReac Type Severity Reaction Status Date / Time No Known Allergies Allergy Verified 01/29/24 05:53 Assessment & Plan Assessment & Plan (1) Bipolar disorder, most recent episode depressed: Status: Acute Code(s): F31.30 - Bipolar disorder, current episode depressed, mild or moderate severity, unspecified (2) PTSD (post-traumatic stress disorder): Status: Acute Code(s): F43.10 - Post-traumatic stress disorder, unspecified Plan The patient is severely depressed withdrawn out of beds for periods. 1st dose of Latuda given will stop melatonin. Mirtazapine in case contributing factor to daytime lethargy check labs in the morning monitor for dehydration patient on Lasix 03/10/2024 Patient with slowed mentation dulled knows name place BUN somewhat elevated electrolytes within normal limits LFTs mildly increased Stop melatonin. Mirtazapine may be contributing to lethargy lower Wellbutrin to 150 mg daily recheck LFTs consider ECT check UA Aricept held hepatitis screen 03/12 continue tx. 03/13 continue tx. 03/14: In bed most of shift. Pt reports feeling tired ; per nursing, pt slept 10 hours last night. Delayed responses, appears thought blocking. Pt denies SI/HI/VH/AH. Showered. Continue current tx plan. 03/15/24 Inc latuda 40 mg daily cont lorazepam still no change introduced option of ect 03/16/24 Pt on inc latuda 40 mg wellbutrin encourage oob needs encouragement for food fluids ? some improvement noted 03/17/24 Again discussed option of ect discussed with patient and nursing need to take Latuda with food check TSH liothyronine use for antidepressant augmentation get med clearance for ect 03/18/2024 Stop lorazepam does not appear to be helpful will start low-dose Depakote had similar experience on Geriatrics previously strongly consider ECT 03/19 the patient remains hypoactive no changes in her mental status. 03/20 no changes in her mental status, slight improvement on her range of affect. Keep same treatment 03/21: depressed. blunted. not responding to medications. T/C ECT. 03/22: per staff, improved behaviors as of yesterday afternoon. up and about this morning, much less PMR and more verbal and spontaneous. continue current mgmt for now. 03/23: in bed again today, slowed and less verbal. continue current mgmt. 03/24: increase wellbutrin to 300 mg daily. up at art group today. struggling to maintain recent improvements. 03/25: in bed again today. inconsistent energy and motivation day to day. continue current mgmt. Reason for continued inpatient stay Substantial Risk for: inability to function and rapid decompensation Time Spent With Patient Time: Total time managing care of this patient today _25___ minutes.
[2024-03-25] MEDS: Lurasidone HCl 40 MG TABLET PO (13:31)
[2024-03-25 20:00] VITALS: BP 116/56; PULSE 86; RESP 18; TEMP 36.6; O2SAT 97
[2024-03-25] MEDS: Donepezil HCl 5 MG TABLET PO (22:36)
[2024-03-25] MEDS: LORazepam 0.5 MG TABLET PO (22:36)
[2024-03-26 07:36] VITALS: BP 98/72; PULSE 94; RESP 14; TEMP 36.6; O2SAT 96
[2024-03-26] MEDS: buPROPion HCl XL 300 MG TAB.ER.24H PO (08:31)
[2024-03-26] MEDS: Liothyronine Sodium 25 MCG TABLET 12.5 MCG PO ×2 (08:34→17:13)
[2024-03-26] MEDS: Lurasidone HCl 40 MG TABLET PO (15:11)
--- NOTE | 2024-03-26 19:04 | HO.PSYCHPN ---
Subjective Subjective Date of Service: 03/26/24 Reason For Visit: mg/depression Interim History: in bed, but dressed and sits up, more engaged, better able to converse. acknowledges oscillations in abilities by the day. states she was up for a shower today, and ate better, and attended group. no requests or complaints. per staff, in bed both day and dona yesterday. slow responses, paucity of thought. Mental Status Exam Mental Status Exam Narrative: Pt is alert and oriented; calm, PMR; dressed in casual attire; mood is described as depressed; eye contact fair; Speech is decr rate, loudness, amount. incr KAYCEE. thoughts linear and logical, slowed, paucity. affect blunted. fair insight and judgment. no SI/HI/VH/AH expressed. Diagnostics Vital Signs (24Hr): Vital Signs - 24 hr 03/25/24 20:00 03/26/24 07:36 Temperature 97.9 F 97.8 F Pulse Rate 86 94 Respiratory Rate 18 14 Blood Pressure 116/56 L 98/72 Pulse Oximetry 97 96 Oxygen Delivery Method Room Air Room Air BMI result Body Mass Index 57.2 Labs 03/18/24 08:17 03/18/24 08:17 Imaging Radiology Impressions: ITS Impressions Lumbar Spine X-Ray 02/01/24 17:03 IMPRESSION: Stable appearance of the lumbar spine with compression fractures of L3 and L4. No new fractures are seen. Electronically signed by: Imtiaz Mcclellan MD 02/01/2024 06:33 PM EDT RP Medications Medications Current Medications Al Hydroxide/Mg Hydroxide (Magnesium Hydrox/Alum Hydrox 30 Ml Oral.Susp) 30 ml PO Q6H PRN PRN Reason: Heartburn/Nausea Bupropion HCl (Bupropion Hcl Xl 300 Mg Tab.Er.24h) 300 mg PO DAILY [facility] Last Admin: 03/26/24 08:31 Dose: 300 mg Donepezil HCl (Donepezil Hcl 5 Mg Tablet) 5 mg PO BEDTIME [facility] Last Admin: 03/25/24 22:36 Dose: 5 mg Hydroxyzine HCl (Hydroxyzine Hcl 25 Mg Tablet) 25 mg PO Q6H PRN PRN Reason: Anxiety or w/haldol EPS Proph Last Admin: 03/11/24 21:44 Dose: 25 mg Lidocaine (Lidocaine 4 % Patch Adh..Patch) 1 patch TRANSDERMA DAILY PRN; Protocol PRN Reason: low back pain Last Admin: 02/15/24 14:33 Dose: 1 patch Liothyronine Sodium (Liothyronine Sodium 25 Mcg Tablet) 12.5 mcg PO BID@0800,1800 [facility] Last Admin: 03/26/24 17:13 Dose: 12.5 mcg Lorazepam (Lorazepam 0.5 Mg Tablet) 0.5 mg PO BEDTIME [facility] Last Admin: 03/25/24 22:36 Dose: 0.5 mg Lurasidone HCl (Lurasidone Hcl 40 Mg Tablet) 40 mg PO DAILY@1230 [facility] Last Admin: 03/26/24 15:11 Dose: 40 mg Magnesium Hydroxide (Milk Of Magnesia 30 Ml Oral.Susp) 30 ml PO DAILY PRN PRN Reason: Constipation Last Admin: 02/28/24 11:41 Dose: 30 ml Allergies Allergies Allergy/AdvReac Type Severity Reaction Status Date / Time No Known Allergies Allergy Verified 01/29/24 05:53 Assessment & Plan Assessment & Plan (1) Bipolar disorder, most recent episode depressed: Status: Acute Code(s): F31.30 - Bipolar disorder, current episode depressed, mild or moderate severity, unspecified (2) PTSD (post-traumatic stress disorder): Status: Acute Code(s): F43.10 - Post-traumatic stress disorder, unspecified Plan The patient is severely depressed withdrawn out of beds for periods. 1st dose of Latuda given will stop melatonin. Mirtazapine in case contributing factor to daytime lethargy check labs in the morning monitor for dehydration patient on Lasix 03/10/2024 Patient with slowed mentation dulled knows name place BUN somewhat elevated electrolytes within normal limits LFTs mildly increased Stop melatonin. Mirtazapine may be contributing to lethargy lower Wellbutrin to 150 mg daily recheck LFTs consider ECT check UA Aricept held hepatitis screen 03/12 continue tx. 03/13 continue tx. 03/14: In bed most of shift. Pt reports feeling tired ; per nursing, pt slept 10 hours last night. Delayed responses, appears thought blocking. Pt denies SI/HI/VH/AH. Showered. Continue current tx plan. 03/15/24 Inc latuda 40 mg daily cont lorazepam still no change introduced option of ect 03/16/24 Pt on inc latuda 40 mg wellbutrin encourage oob needs encouragement for food fluids ? some improvement noted 03/17/24 Again discussed option of ect discussed with patient and nursing need to take Latuda with food check TSH liothyronine use for antidepressant augmentation get med clearance for ect 03/18/2024 Stop lorazepam does not appear to be helpful will start low-dose Depakote had similar experience on Geriatrics previously strongly consider ECT 03/19 the patient remains hypoactive no changes in her mental status. 03/20 no changes in her mental status, slight improvement on her range of affect. Keep same treatment 03/21: depressed. blunted. not responding to medications. T/C ECT. 03/22: per staff, improved behaviors as of yesterday afternoon. up and about this morning, much less PMR and more verbal and spontaneous. continue current mgmt for now. 03/23: in bed again today, slowed and less verbal. continue current mgmt. 03/24: increase wellbutrin to 300 mg daily. up at art group today. struggling to maintain recent improvements. 03/25: in bed again today. inconsistent energy and motivation day to day. continue current mgmt. 03/26: more up and about today. showered, group, eating better. continue current mgmt. Reason for continued inpatient stay Substantial Risk for: inability to function and rapid decompensation Time Spent With Patient Time: Total time managing care of this patient today ____ minutes.
[2024-03-26 19:10] VITALS: BP 124/82; PULSE 71; RESP 16; TEMP 36.4; O2SAT 98
[2024-03-26] MEDS: Donepezil HCl 5 MG TABLET PO (21:03)
[2024-03-26] MEDS: LORazepam 0.5 MG TABLET PO (21:03)
[2024-03-27 07:52] VITALS: BP 169/84; PULSE 88; RESP 16; TEMP 36.4; O2SAT 99
[2024-03-27] MEDS: buPROPion HCl XL 300 MG TAB.ER.24H PO (08:03)
[2024-03-27] MEDS: Liothyronine Sodium 25 MCG TABLET 12.5 MCG PO ×2 (08:05→17:44)
[2024-03-27] MEDS: carBAMazepine ER 100 MG TAB.ER.12H PO ×2 (11:16→20:37)
[2024-03-27] MEDS: Lurasidone HCl 40 MG TABLET PO (12:03)
--- NOTE | 2024-03-27 12:29 | P.PNPSI_ITS ---
Subjective Subjective Date of Service: 03/27/24 Reason For Visit: mg/depression Interim History: seeking out MD repeatedly in milieu, making plans to discharge, call people, buy a present for her boyfriend, get her car fixed before it snows 10 inches on thursday! MD informs her it is imperative to restart tegretol, which is ordered. she reluctantly agrees. per staff, did not sleep at all overnight. showered 199. hyperverbal, saying prayers for everyone, asking to discharge on thursday... Mental Status Exam Mental Status Exam Narrative: Pt is alert and oriented; calm, no PMR; dressed in casual attire; mood is described as very good; eye contact good; Speech is incr rate, nml loudness, incr amount. decr KAYCEE. thoughts linear and illogical, rapid, increased amount. affect hyperintense, flexible. poor insight and judgment. no SI/HI/VH/AH expressed. Diagnostics Vital Signs (24Hr): Vital Signs - 24 hr 03/26/24 19:10 03/27/24 07:52 Temperature 97.5 F 97.6 F Pulse Rate 71 88 Respiratory Rate 16 16 Blood Pressure 124/82 169/84 H Pulse Oximetry 98 99 Oxygen Delivery Method Room Air Room Air BMI result Body Mass Index 57.2 Labs 03/18/24 08:17 03/18/24 08:17 Imaging Radiology Impressions: ITS Impressions Lumbar Spine X-Ray 02/01/24 17:03 IMPRESSION: Stable appearance of the lumbar spine with compression fractures of L3 and L4. No new fractures are seen. Electronically signed by: Imtiaz Mcclellan MD 02/01/2024 06:33 PM EDT Medications Medications Current Medications Al Hydroxide/Mg Hydroxide (Magnesium Hydrox/Alum Hydrox 30 Ml Oral.Susp) 30 ml PO Q6H PRN PRN Reason: Heartburn/Nausea Bupropion HCl (Bupropion Hcl Xl 300 Mg Tab.Er.24h) 300 mg PO DAILY [facility] Last Admin: 03/27/24 08:03 Dose: 300 mg Carbamazepine (Carbamazepine Er 100 Mg Tab.Er.12h) 100 mg PO BID [facility] Last Admin: 03/27/24 11:16 Dose: 100 mg Donepezil HCl (Donepezil Hcl 5 Mg Tablet) 5 mg PO BEDTIME [facility] Last Admin: 03/26/24 21:03 Dose: 5 mg Hydroxyzine HCl (Hydroxyzine Hcl 25 Mg Tablet) 25 mg PO Q6H PRN PRN Reason: Anxiety or w/haldol EPS Proph Last Admin: 03/11/24 21:44 Dose: 25 mg Lidocaine (Lidocaine 4 % Patch Adh..Patch) 1 patch TRANSDERMA DAILY PRN; Protocol PRN Reason: low back pain Last Admin: 02/15/24 14:33 Dose: 1 patch Liothyronine Sodium (Liothyronine Sodium 25 Mcg Tablet) 12.5 mcg PO BID@0800,1800 [facility] Last Admin: 03/27/24 08:05 Dose: 12.5 mcg Lurasidone HCl (Lurasidone Hcl 40 Mg Tablet) 40 mg PO DAILY@1230 [facility] Last Admin: 03/27/24 12:03 Dose: 40 mg Magnesium Hydroxide (Milk Of Magnesia 30 Ml Oral.Susp) 30 ml PO DAILY PRN PRN Reason: Constipation Last Admin: 02/28/24 11:41 Dose: 30 ml Allergies Allergies Allergy/AdvReac Type Severity Reaction Status Date / Time No Known Allergies Allergy Verified 01/29/24 05:53 Assessment & Plan Assessment & Plan (1) Bipolar disorder, most recent episode depressed: Status: Acute Code(s): F31.30 - Bipolar disorder, current episode depressed, mild or moderate severity, unspecified (2) PTSD (post-traumatic stress disorder): Status: Acute Code(s): F43.10 - Post-traumatic stress disorder, unspecified Plan The patient is severely depressed withdrawn out of beds for periods. 1st dose of Latuda given will stop melatonin. Mirtazapine in case contributing factor to daytime lethargy check labs in the morning monitor for dehydration patient on Lasix 03/10/2024 Patient with slowed mentation dulled knows name place BUN somewhat elevated electrolytes within normal limits LFTs mildly increased Stop melatonin. Mirtazapine may be contributing to lethargy lower Wellbutrin to 150 mg daily recheck LFTs consider ECT check UA Aricept held hepatitis screen 03/12 continue tx. 03/13 continue tx. 03/14: In bed most of shift. Pt reports feeling tired ; per nursing, pt slept 10 hours last night. Delayed responses, appears thought blocking. Pt denies SI/HI/VH/AH. Showered. Continue current tx plan. 03/15/24 Inc latuda 40 mg daily cont lorazepam still no change introduced option of ect 03/16/24 Pt on inc latuda 40 mg wellbutrin encourage oob needs encouragement for food fluids ? some improvement noted 03/17/24 Again discussed option of ect discussed with patient and nursing need to take Latuda with food check TSH liothyronine use for antidepressant augmentation get med clearance for ect 03/18/2024 Stop lorazepam does not appear to be helpful will start low-dose Depakote had similar experience on Geriatrics previously strongly consider ECT 03/19 the patient remains hypoactive no changes in her mental status. 03/20 no changes in her mental status, slight improvement on her range of affect. Keep same treatment 03/21: depressed. blunted. not responding to medications. T/C ECT. 03/22: per staff, improved behaviors as of yesterday afternoon. up and about this morning, much less PMR and more verbal and spontaneous. continue current mgmt for now. 03/23: in bed again today, slowed and less verbal. continue current mgmt. 03/24: increase wellbutrin to 300 mg daily. up at art group today. struggling to maintain recent improvements. 03/25: in bed again today. inconsistent energy and motivation day to day. continue current mgmt. 03/26: more up and about today. showered, group, eating better. continue current mgmt. 03/27: flipped back to mg. did not sleep last night. hyperverbal, rapid thoughts. restart tegretol XR 100 BID. Reason for continued inpatient stay Substantial Risk for: inability to function and rapid decompensation Time Spent With Patient Time: Total time managing care of this patient today __25__ minutes.
[2024-03-27 19:00] VITALS: BP 140/78; PULSE 94; RESP 16; TEMP 37; O2SAT 99
[2024-03-27] MEDS: Donepezil HCl 5 MG TABLET PO (20:37)
[2024-03-28 07:27] VITALS: BP 139/69; PULSE 96; RESP 18; TEMP 36.3; O2SAT 96
[2024-03-28 08:00] VITALS: BP 139/69; PULSE 96; RESP 18; TEMP 36.3; O2SAT 96
[2024-03-28] MEDS: carBAMazepine ER 100 MG TAB.ER.12H PO ×2 (09:03→20:54)
[2024-03-28] MEDS: buPROPion HCl XL 300 MG TAB.ER.24H PO (09:03)
[2024-03-28] MEDS: Liothyronine Sodium 25 MCG TABLET 12.5 MCG PO ×2 (09:03→17:09)
[2024-03-28] MEDS: Lurasidone HCl 40 MG TABLET PO (11:29)
--- NOTE | 2024-03-28 14:13 | HO.PSYCHPN ---
Subjective Subjective Date of Service: 03/28/24 Reason For Visit: mg/depression Interim History: hypomanic, asking for discharge tomorrow, full of plans, labile/tearful. per staff, talkative, taking meds, visible, more manic, euphoric, verbally and physically intrusive. slept about 6.5 hours. Mental Status Exam Mental Status Exam Narrative: Pt is alert and oriented; excited, mild PMA; dressed in casual attire; mood is euphoric; eye contact good; Speech is incr rate, nml loudness, incr amount. decr KAYCEE. thoughts linear and illogical, rapid, increased amount. affect hyperintense, mod-labile. poor insight and judgment. no SI/HI/VH/AH expressed. Diagnostics Vital Signs (24Hr): Vital Signs - 24 hr 03/27/24 19:00 03/28/24 07:27 03/28/24 08:00 Temperature 98.6 F 97.4 F 97.4 F Pulse Rate 94 96 96 Respiratory Rate 16 18 18 Blood Pressure 140/78 H 139/69 139/69 Pulse Oximetry 99 96 96 Oxygen Delivery Method Room Air Room Air Room Air BMI result Body Mass Index 57.2 Labs 03/18/24 08:17 03/18/24 08:17 Imaging Radiology Impressions: ITS Impressions Lumbar Spine X-Ray 02/01/24 17:03 IMPRESSION: Stable appearance of the lumbar spine with compression fractures of L3 and L4. No new fractures are seen. Electronically signed by: Imtiaz Mcclellan MD 02/01/2024 06:33 PM EDT Medications Medications Current Medications Al Hydroxide/Mg Hydroxide (Magnesium Hydrox/Alum Hydrox 30 Ml Oral.Susp) 30 ml PO Q6H PRN PRN Reason: Heartburn/Nausea Bupropion HCl (Bupropion Hcl Xl 300 Mg Tab.Er.24h) 300 mg PO DAILY [facility] Last Admin: 03/28/24 09:03 Dose: 300 mg Carbamazepine (Carbamazepine Er 100 Mg Tab.Er.12h) 100 mg PO BID [facility] Last Admin: 03/28/24 09:03 Dose: 100 mg Donepezil HCl (Donepezil Hcl 5 Mg Tablet) 5 mg PO BEDTIME [facility] Last Admin: 03/27/24 20:37 Dose: 5 mg Hydroxyzine HCl (Hydroxyzine Hcl 25 Mg Tablet) 25 mg PO Q6H PRN PRN Reason: Anxiety or w/haldol EPS Proph Last Admin: 03/11/24 21:44 Dose: 25 mg Lidocaine (Lidocaine 4 % Patch Adh..Patch) 1 patch TRANSDERMA DAILY PRN; Protocol PRN Reason: low back pain Last Admin: 02/15/24 14:33 Dose: 1 patch Liothyronine Sodium (Liothyronine Sodium 25 Mcg Tablet) 12.5 mcg PO BID@0800,1800 [facility] Last Admin: 03/28/24 09:03 Dose: 12.5 mcg Lurasidone HCl (Lurasidone Hcl 40 Mg Tablet) 40 mg PO DAILY@1230 [facility] Last Admin: 03/28/24 11:29 Dose: 40 mg Magnesium Hydroxide (Milk Of Magnesia 30 Ml Oral.Susp) 30 ml PO DAILY PRN PRN Reason: Constipation Last Admin: 02/28/24 11:41 Dose: 30 ml Allergies Allergies Allergy/AdvReac Type Severity Reaction Status Date / Time No Known Allergies Allergy Verified 01/29/24 05:53 Assessment & Plan Assessment & Plan (1) Bipolar disorder, most recent episode depressed: Status: Acute Code(s): F31.30 - Bipolar disorder, current episode depressed, mild or moderate severity, unspecified (2) PTSD (post-traumatic stress disorder): Status: Acute Code(s): F43.10 - Post-traumatic stress disorder, unspecified Plan The patient is severely depressed withdrawn out of beds for periods. 1st dose of Latuda given will stop melatonin. Mirtazapine in case contributing factor to daytime lethargy check labs in the morning monitor for dehydration patient on Lasix 03/10/2024 Patient with slowed mentation dulled knows name place BUN somewhat elevated electrolytes within normal limits LFTs mildly increased Stop melatonin. Mirtazapine may be contributing to lethargy lower Wellbutrin to 150 mg daily recheck LFTs consider ECT check UA Aricept held hepatitis screen 03/12 continue tx. 03/13 continue tx. 03/14: In bed most of shift. Pt reports feeling tired ; per nursing, pt slept 10 hours last night. Delayed responses, appears thought blocking. Pt denies SI/HI/VH/AH. Showered. Continue current tx plan. 03/15/24 Inc latuda 40 mg daily cont lorazepam still no change introduced option of ect 03/16/24 Pt on inc latuda 40 mg wellbutrin encourage oob needs encouragement for food fluids ? some improvement noted 03/17/24 Again discussed option of ect discussed with patient and nursing need to take Latuda with food check TSH liothyronine use for antidepressant augmentation get med clearance for ect 03/18/2024 Stop lorazepam does not appear to be helpful will start low-dose Depakote had similar experience on Geriatrics previously strongly consider ECT 03/19 the patient remains hypoactive no changes in her mental status. 03/20 no changes in her mental status, slight improvement on her range of affect. Keep same treatment 03/21: depressed. blunted. not responding to medications. T/C ECT. 03/22: per staff, improved behaviors as of yesterday afternoon. up and about this morning, much less PMR and more verbal and spontaneous. continue current mgmt for now. 03/23: in bed again today, slowed and less verbal. continue current mgmt. 03/24: increase wellbutrin to 300 mg daily. up at art group today. struggling to maintain recent improvements. 03/25: in bed again today. inconsistent energy and motivation day to day. continue current mgmt. 03/26: more up and about today. showered, group, eating better. continue current mgmt. 03/27: flipped back to mg. did not sleep last night. hyperverbal, rapid thoughts. restart tegretol XR 100 BID. 03/28: started on tegretol. slept 6.5 hours last night. remains hypomanic, euphoric, labile. continue current mgmt. Reason for continued inpatient stay Substantial Risk for: inability to function Time Spent With Patient Time: Total time managing care of this patient today __25__ minutes.
[2024-03-28 20:00] VITALS: BP 134/74; PULSE 101; RESP 16; TEMP 36.8; O2SAT 100
[2024-03-28] MEDS: Donepezil HCl 5 MG TABLET PO (20:54)
[2024-03-29 07:58] VITALS: BP 137/73; PULSE 97; RESP 16; TEMP 36.9; O2SAT 100
[2024-03-29] MEDS: Liothyronine Sodium 25 MCG TABLET 12.5 MCG PO ×2 (09:17→17:44)
[2024-03-29] MEDS: carBAMazepine ER 100 MG TAB.ER.12H PO (09:17)
[2024-03-29] MEDS: buPROPion HCl XL 300 MG TAB.ER.24H PO (09:17)
[2024-03-29] MEDS: Acetaminophen 325 MG TABLET 650 MG PO ×2 (11:42→22:25)
[2024-03-29] MEDS: Lurasidone HCl 40 MG TABLET PO (13:16)
[2024-03-29 19:43] VITALS: BP 125/61; PULSE 91; RESP 18; TEMP 36.4; O2SAT 99
--- NOTE | 2024-03-29 21:19 | P.PNPSI_ITS ---
Subjective Subjective Date of Service: 03/29/24 Reason For Visit: mg/depression Subjective Notes: Conditional Voluntary Interim History: Pt has been hypomanic racing inc impulsivity acceping of medication alert attending grps.Some intrusiveness loud Attending Groups: Yes Review of Systems Acute medical concerns: No Mental Status Exam Mental Status Exam Narrative: Mental Status Exam Narrative: Appearance:casually dressed smiling Behavior:cooperative intrusive psychomotor:inc energy Speech: pressured Thought proccesslinear mildly expansive Thought content:on d/c on feeling better how great things are wanting to leave Mood:euphoric Affect: SI:denies HI:denies VH/AH:none Delusions: Insight/judgment:intrusive expansive unrealistic expectations Memory/cog: intact Diagnostics Vital Signs (24Hr): Vital Signs - 24 hr 03/29/24 07:58 03/29/24 19:43 Temperature 98.4 F 97.5 F Pulse Rate 97 91 Respiratory Rate 16 18 Blood Pressure 137/73 125/61 Pulse Oximetry 100 99 Oxygen Delivery Method Room Air Room Air BMI result Body Mass Index 57.2 Labs 03/18/24 08:17 03/18/24 08:17 Imaging Radiology Impressions: ITS Impressions Lumbar Spine X-Ray 02/01/24 17:03 IMPRESSION: Stable appearance of the lumbar spine with compression fractures of L3 and L4. No new fractures are seen. Electronically signed by: Imtiaz Mcclellan MD 02/01/2024 06:33 PM EDT RP Medications Medications Current Medications Acetaminophen (Acetaminophen 325 Mg Tablet) 650 mg PO Q6H PRN PRN Reason: Pain, Mild (Pain Scale 1-3) Last Admin: 03/29/24 11:42 Dose: 650 mg Al Hydroxide/Mg Hydroxide (Magnesium Hydrox/Alum Hydrox 30 Ml Oral.Susp) 30 ml PO Q6H PRN PRN Reason: Heartburn/Nausea Bupropion HCl (Bupropion Hcl Xl 300 Mg Tab.Er.24h) 300 mg PO DAILY [facility] Last Admin: 03/29/24 09:17 Dose: 300 mg Carbamazepine (Carbamazepine Er 100 Mg Tab.Er.12h) 100 mg PO BID [facility] Last Admin: 03/29/24 09:17 Dose: 100 mg Donepezil HCl (Donepezil Hcl 5 Mg Tablet) 5 mg PO BEDTIME [facility] Last Admin: 03/28/24 20:54 Dose: 5 mg Hydroxyzine HCl (Hydroxyzine Hcl 25 Mg Tablet) 25 mg PO Q6H PRN PRN Reason: Anxiety or w/haldol EPS Proph Last Admin: 03/11/24 21:44 Dose: 25 mg Lidocaine (Lidocaine 4 % Patch Adh..Patch) 1 patch TRANSDERMA DAILY PRN; Protocol PRN Reason: low back pain Last Admin: 02/15/24 14:33 Dose: 1 patch Liothyronine Sodium (Liothyronine Sodium 25 Mcg Tablet) 12.5 mcg PO BID@0800,1800 [facility] Last Admin: 03/29/24 17:44 Dose: 12.5 mcg Lurasidone HCl (Lurasidone Hcl 40 Mg Tablet) 40 mg PO DAILY@1230 [facility] Last Admin: 03/29/24 13:16 Dose: 40 mg Magnesium Hydroxide (Milk Of Magnesia 30 Ml Oral.Susp) 30 ml PO DAILY PRN PRN Reason: Constipation Last Admin: 02/28/24 11:41 Dose: 30 ml Allergies Allergies Allergy/AdvReac Type Severity Reaction Status Date / Time No Known Allergies Allergy Verified 01/29/24 05:53 Assessment & Plan Assessment & Plan (1) PTSD (post-traumatic stress disorder): Status: Acute Code(s): F43.10 - Post-traumatic stress disorder, unspecified (2) Severe manic bipolar 1 disorder with psychotic behavior: Status: Acute Code(s): F31.2 - Bipolar disorder, current episode manic severe with psychotic features Plan The patient is severely depressed withdrawn out of beds for periods. 1st dose of Latuda given will stop melatonin. Mirtazapine in case contributing factor to daytime lethargy check labs in the morning monitor for dehydration patient on Lasix 03/10/2024 Patient with slowed mentation dulled knows name place BUN somewhat elevated electrolytes within normal limits LFTs mildly increased Stop melatonin. Mirtazapine may be contributing to lethargy lower Wellbutrin to 150 mg daily recheck LFTs consider ECT check UA Aricept held hepatitis screen 03/12 continue tx. 03/13 continue tx. 03/14: In bed most of shift. Pt reports feeling tired ; per nursing, pt slept 10 hours last night. Delayed responses, appears thought blocking. Pt denies SI/HI/VH/AH. Showered. Continue current tx plan. 03/15/24 Inc latuda 40 mg daily cont lorazepam still no change introduced option of ect 03/16/24 Pt on inc latuda 40 mg wellbutrin encourage oob needs encouragement for food fluids ? some improvement noted 03/17/24 Again discussed option of ect discussed with patient and nursing need to take Latuda with food check TSH liothyronine use for antidepressant augmentation get med clearance for ect 03/18/2024 Stop lorazepam does not appear to be helpful will start low-dose Depakote had similar experience on Geriatrics previously strongly consider ECT 03/19 the patient remains hypoactive no changes in her mental status. 03/20 no changes in her mental status, slight improvement on her range of affect. Keep same treatment 03/21: depressed. blunted. not responding to medications. T/C ECT. 03/22: per staff, improved behaviors as of yesterday afternoon. up and about this morning, much less PMR and more verbal and spontaneous. continue current mgmt for now. 03/23: in bed again today, slowed and less verbal. continue current mgmt. 03/24: increase wellbutrin to 300 mg daily. up at [facility] today. struggling to maintain recent improvements. 03/25: in bed again today. inconsistent energy and motivation day to day. continue current mgmt. 03/26: more up and about today. showered, group, eating better. continue current mgmt. 03/27: flipped back to mg. did not sleep last night. hyperverbal, rapid thoughts. restart tegretol XR 100 BID. 03/28: started on tegretol. slept 6.5 hours last night. remains hypomanic, euphoric, labile. continue current mgmt. 03/29/24 Inc tegretol 150 bid dec wellbutrin 150 mg am Reason for continued inpatient stay Substantial Risk for: inability to function and rapid decompensation Time Spent With Patient Time: Total time managing care of this patient today ____ minutes.
[2024-03-29] MEDS: carBAMazepine ER 100 MG TAB.ER.12H 150 MG PO (22:23)
[2024-03-29] MEDS: Donepezil HCl 5 MG TABLET PO (22:24)
[2024-03-30] MEDS: Acetaminophen 325 MG TABLET 650 MG PO ×3 (04:44→22:48)
[2024-03-30 07:56] VITALS: BP 157/83; PULSE 92; RESP 16; TEMP 36.6; O2SAT 98
[2024-03-30] MEDS: carBAMazepine ER 100 MG TAB.ER.12H 150 MG PO ×2 (08:38→21:33)
[2024-03-30] MEDS: buPROPion HCl XL 150 MG TAB.ER.24H PO (08:39)
[2024-03-30] MEDS: Liothyronine Sodium 25 MCG TABLET 12.5 MCG PO ×2 (08:39→17:24)
[2024-03-30] MEDS: Lurasidone HCl 40 MG TABLET PO (12:54)
[2024-03-30 19:25] VITALS: BP 141/75; PULSE 91; RESP 18; TEMP 36.5; O2SAT 100
--- NOTE | 2024-03-30 20:33 | HO.PSYCHPN ---
Subjective Subjective Date of Service: 03/30/24 Reason For Visit: mg/depression Subjective Notes: Conditional Voluntary Interim History: Patient remains somewhat expansive hoping to be discharged a couple of days. Has been more linear logical but remains somewhat expansive and impulsive but not psychotic or aggressive. Mental Status Exam Mental Status Exam Narrative: Mental Status Exam Narrative: Appearance:casually dressed smiling Behavior:cooperative psychomotor:inc energy Speech: nl prosody Thought proccesslinear mildly expansive Thought content:on d/c on feeling better very appreciative hopeful for d/c soon Mood: happy Affect:appropriate SI:denies HI:denies VH/AH:none Delusions: Insight/judgment:agreeable to seeing dr layton unrealistic living arrangements Memory/cog: intact Diagnostics Vital Signs (24Hr): Vital Signs - 24 hr 03/30/24 07:56 Temperature 97.9 F Pulse Rate 92 Respiratory Rate 16 Blood Pressure 157/83 H Pulse Oximetry 98 Oxygen Delivery Method Room Air BMI result Body Mass Index 57.2 Labs 03/18/24 08:17 03/18/24 08:17 Imaging Radiology Impressions: ITS Impressions Lumbar Spine X-Ray 02/01/24 17:03 IMPRESSION: Stable appearance of the lumbar spine with compression fractures of L3 and L4. No new fractures are seen. Electronically signed by: Imtiaz Mcclellan MD 02/01/2024 06:33 PM EDT RP Medications Medications Current Medications Acetaminophen (Acetaminophen 325 Mg Tablet) 650 mg PO Q6H PRN PRN Reason: Pain, Mild (Pain Scale 1-3) Last Admin: 03/30/24 13:31 Dose: 650 mg Al Hydroxide/Mg Hydroxide (Magnesium Hydrox/Alum Hydrox 30 Ml Oral.Susp) 30 ml PO Q6H PRN PRN Reason: Heartburn/Nausea Bupropion HCl (Bupropion Hcl Xl 150 Mg Tab.Er.24h) 150 mg PO DAILY [facility] Last Admin: 03/30/24 08:39 Dose: 150 mg Carbamazepine (Carbamazepine Er 100 Mg Tab.Er.12h) 150 mg PO BID [facility] Last Admin: 03/30/24 08:38 Dose: 150 mg Donepezil HCl (Donepezil Hcl 5 Mg Tablet) 5 mg PO BEDTIME [facility] Last Admin: 03/29/24 22:24 Dose: 5 mg Hydroxyzine HCl (Hydroxyzine Hcl 25 Mg Tablet) 25 mg PO Q6H PRN PRN Reason: Anxiety or w/haldol EPS Proph Last Admin: 03/11/24 21:44 Dose: 25 mg Lidocaine (Lidocaine 4 % Patch Adh..Patch) 1 patch TRANSDERMA DAILY PRN; Protocol PRN Reason: low back pain Last Admin: 02/15/24 14:33 Dose: 1 patch Liothyronine Sodium (Liothyronine Sodium 25 Mcg Tablet) 12.5 mcg PO BID@0800,1800 [facility] Last Admin: 03/30/24 17:24 Dose: 12.5 mcg Lurasidone HCl (Lurasidone Hcl 40 Mg Tablet) 40 mg PO DAILY@1230 [facility] Last Admin: 03/30/24 12:54 Dose: 40 mg Magnesium Hydroxide (Milk Of Magnesia 30 Ml Oral.Susp) 30 ml PO DAILY PRN PRN Reason: Constipation Last Admin: 02/28/24 11:41 Dose: 30 ml Allergies Allergies Allergy/AdvReac Type Severity Reaction Status Date / Time No Known Allergies Allergy Verified 01/29/24 05:53 Assessment & Plan Assessment & Plan (1) PTSD (post-traumatic stress disorder): Status: Acute Code(s): F43.10 - Post-traumatic stress disorder, unspecified (2) Severe manic bipolar 1 disorder with psychotic behavior: Status: Acute Code(s): F31.2 - Bipolar disorder, current episode manic severe with psychotic features Plan The patient is severely depressed withdrawn out of beds for periods. 1st dose of Latuda given will stop melatonin. Mirtazapine in case contributing factor to daytime lethargy check labs in the morning monitor for dehydration patient on Lasix 03/10/2024 Patient with slowed mentation dulled knows name place BUN somewhat elevated electrolytes within normal limits LFTs mildly increased Stop melatonin. Mirtazapine may be contributing to lethargy lower Wellbutrin to 150 mg daily recheck LFTs consider ECT check UA Aricept held hepatitis screen 03/12 continue tx. 03/13 continue tx. 03/14: In bed most of shift. Pt reports feeling tired ; per nursing, pt slept 10 hours last night. Delayed responses, appears thought blocking. Pt denies SI/HI/VH/AH. Showered. Continue current tx plan. 03/15/24 Inc latuda 40 mg daily cont lorazepam still no change introduced option of ect 03/16/24 Pt on inc latuda 40 mg wellbutrin encourage oob needs encouragement for food fluids ? some improvement noted 03/17/24 Again discussed option of ect discussed with patient and nursing need to take Latuda with food check TSH liothyronine use for antidepressant augmentation get med clearance for ect 03/18/2024 Stop lorazepam does not appear to be helpful will start low-dose Depakote had similar experience on Geriatrics previously strongly consider ECT 03/19 the patient remains hypoactive no changes in her mental status. 03/20 no changes in her mental status, slight improvement on her range of affect. Keep same treatment 03/21: depressed. blunted. not responding to medications. T/C ECT. 03/22: per staff, improved behaviors as of yesterday afternoon. up and about this morning, much less PMR and more verbal and spontaneous. continue current mgmt for now. 03/23: in bed again today, slowed and less verbal. continue current mgmt. 03/24: increase wellbutrin to 300 mg daily. up at [facility] today. struggling to maintain recent improvements. 03/25: in bed again today. inconsistent energy and motivation day to day. continue current mgmt. 03/26: more up and about today. showered, group, eating better. continue current mgmt. 03/27: flipped back to mg. did not sleep last night. hyperverbal, rapid thoughts. restart tegretol XR 100 BID. 03/28: started on tegretol. slept 6.5 hours last night. remains hypomanic, euphoric, labile. continue current mgmt. 03/29/24 Inc tegretol 150 bid dec wellbutrin 150 mg am 03/30/24 improving more stable need to clarify d/c plans cont tegretol latuda Reason for continued inpatient stay Substantial Risk for: inability to function and rapid decompensation Time Spent With Patient Time: Total time managing care of this patient today ____ minutes.
[2024-03-30] MEDS: Donepezil HCl 5 MG TABLET PO (21:34)
[2024-03-31 07:00] VITALS: BMI 35.2
[2024-03-31] MEDS: Acetaminophen 325 MG TABLET 650 MG PO (07:29)
[2024-03-31 07:40] VITALS: BP 152/62; PULSE 83; RESP 14; TEMP 36.7; O2SAT 100
--- NOTE | 2024-03-31 08:01 | HO.PSYCHPN ---
Documented by User: Jinny Dooley NP 03/31/24 12:12 Subjective Subjective Date of Service: 03/31/24 Reason For Visit: mg/depression Subjective Notes: 3 Day Interim History: Active on unit, social with peers.Attending groups. hyperverbal, rambling. Patient reports feeling great today. Pt reports she plans on going to court when I leave here so I don't get arrested and straighten things out . 3 day up on 04/01/24. Medication Compliance: Yes Side effects from medications: No Attending Groups: Yes Review of Systems Constitutional: Reports as per HPI Eyes: Reports as per HPI Reports as per HPI Cardiovascular: Reports as per HPI Respiratory: Reports as per HPI Gastrointestinal: Reports as per HPI Genitourinary: Reports as per HPI Musculoskeletal: Reports as per HPI Skin/Breast: Reports as per HPI Reports as per HPI Psychiatric: Reports as per HPI Endocrine: Reports as per HPI Hematologic/Lymphatic: Reports as per HPI Allergic/Immunologic: Reports as per HPI Mental Status Exam Mental Status Exam Patient Appearance: Well Grooomed Patient Orientation: Person, Place, Time and Situation Level of Consciousness: Awake and Alert Patient Behavior: Cooperative and Good Eye Contact Mood Description: Happy Affect Description: Euphoric Ability to Follow Directions: Good Speech Pattern: Rambling and Rapid Hallucinations: None Delusions: Not Present Thought Process: Racing Thought Content: positive for Racing Diagnostics Vital Signs (24Hr): Vital Signs - 24 hr 03/30/24 19:25 03/31/24 07:40 Temperature 97.7 F 98.1 F Pulse Rate 91 83 Respiratory Rate 18 14 Blood Pressure 141/75 H 152/62 H Pulse Oximetry 100 100 Oxygen Delivery Method Room Air Room Air BMI result Body Mass Index 57.2 Labs 03/18/24 08:17 03/18/24 08:17 Imaging Radiology Impressions: ITS Impressions Lumbar Spine X-Ray 02/01/24 17:03 IMPRESSION: Stable appearance of the lumbar spine with compression fractures of L3 and L4. No new fractures are seen. Electronically signed by: Imtiaz Mcclellan MD 02/01/2024 06:33 PM EDT Medications Medications Current Medications Acetaminophen (Acetaminophen 325 Mg Tablet) 650 mg PO Q6H PRN PRN Reason: Pain, Mild (Pain Scale 1-3) Last Admin: 03/31/24 07:29 Dose: 650 mg Al Hydroxide/Mg Hydroxide (Magnesium Hydrox/Alum Hydrox 30 Ml Oral.Susp) 30 ml PO Q6H PRN PRN Reason: Heartburn/Nausea Bupropion HCl (Bupropion Hcl Xl 150 Mg Tab.Er.24h) 150 mg PO DAILY [facility] Last Admin: 03/30/24 08:39 Dose: 150 mg Carbamazepine (Carbamazepine Er 100 Mg Tab.Er.12h) 150 mg PO BID [facility] Last Admin: 03/30/24 21:33 Dose: 150 mg Donepezil HCl (Donepezil Hcl 5 Mg Tablet) 5 mg PO BEDTIME [facility] Last Admin: 03/30/24 21:34 Dose: 5 mg Hydroxyzine HCl (Hydroxyzine Hcl 25 Mg Tablet) 25 mg PO Q6H PRN PRN Reason: Anxiety or w/haldol EPS Proph Last Admin: 03/11/24 21:44 Dose: 25 mg Lidocaine (Lidocaine 4 % Patch Adh..Patch) 1 patch TRANSDERMA DAILY PRN; Protocol PRN Reason: low back pain Last Admin: 02/15/24 14:33 Dose: 1 patch Liothyronine Sodium (Liothyronine Sodium 25 Mcg Tablet) 12.5 mcg PO BID@0800,1800 [facility] Last Admin: 03/30/24 17:24 Dose: 12.5 mcg Lurasidone HCl (Lurasidone Hcl 40 Mg Tablet) 40 mg PO DAILY@1230 [facility] Last Admin: 03/30/24 12:54 Dose: 40 mg Magnesium Hydroxide (Milk Of Magnesia 30 Ml Oral.Susp) 30 ml PO DAILY PRN PRN Reason: Constipation Last Admin: 02/28/24 11:41 Dose: 30 ml Allergies Allergies Allergy/AdvReac Type Severity Reaction Status Date / Time No Known Allergies Allergy Verified 01/29/24 05:53 Assessment & Plan Assessment & Plan (1) PTSD (post-traumatic stress disorder): Status: Acute Code(s): F43.10 - Post-traumatic stress disorder, unspecified (2) Severe manic bipolar 1 disorder with psychotic behavior: Status: Acute Code(s): F31.2 - Bipolar disorder, current episode manic severe with psychotic features Plan The patient is severely depressed withdrawn out of beds for periods. 1st dose of Latuda given will stop melatonin. Mirtazapine in case contributing factor to daytime lethargy check labs in the morning monitor for dehydration patient on Lasix 03/10/2024 Patient with slowed mentation dulled knows name place BUN somewhat elevated electrolytes within normal limits LFTs mildly increased Stop melatonin. Mirtazapine may be contributing to lethargy lower Wellbutrin to 150 mg daily recheck LFTs consider ECT check UA Aricept held hepatitis screen 03/12 continue tx. 03/13 continue tx. 03/14: In bed most of shift. Pt reports feeling tired ; per nursing, pt slept 10 hours last night. Delayed responses, appears thought blocking. Pt denies SI/HI/VH/AH. Showered. Continue current tx plan. 03/15/24 Inc latuda 40 mg daily cont lorazepam still no change introduced option of ect 03/16/24 Pt on inc latuda 40 mg wellbutrin encourage oob needs encouragement for food fluids ? some improvement noted 03/17/24 Again discussed option of ect discussed with patient and nursing need to take Latuda with food check TSH liothyronine use for antidepressant augmentation get med clearance for ect 03/18/2024 Stop lorazepam does not appear to be helpful will start low-dose Depakote had similar experience on Geriatrics previously strongly consider ECT 03/19 the patient remains hypoactive no changes in her mental status. 03/20 no changes in her mental status, slight improvement on her range of affect. Keep same treatment 03/21: depressed. blunted. not responding to medications. T/C ECT. 03/22: per staff, improved behaviors as of yesterday afternoon. up and about this morning, much less PMR and more verbal and spontaneous. continue current mgmt for now. 03/23: in bed again today, slowed and less verbal. continue current mgmt. 03/24: increase wellbutrin to 300 mg daily. up at art group today. struggling to maintain recent improvements. 03/25: in bed again today. inconsistent energy and motivation day to day. continue current mgmt. 03/26: more up and about today. showered, group, eating better. continue current mgmt. 03/27: flipped back to mg. did not sleep last night. hyperverbal, rapid thoughts. restart tegretol XR 100 BID. 03/28: started on tegretol. slept 6.5 hours last night. remains hypomanic, euphoric, labile. continue current mgmt. 03/29/24 Inc tegretol 150 bid dec wellbutrin 150 mg am 03/30/24 improving more stable need to clarify d/c plans cont tegretol latuda 03/31: Continue current tx plan. Patient educated on: diagnosis and medication risk/benefits Reason for continued inpatient stay Substantial Risk for: med/psych decompensation Time Spent With Patient Time: Total time managing care of this patient today _20___ minutes. Documented by User: Hugh Brian MD 04/01/24 22:01 Subjective Subjective Date of Service: 04/01/29 Reason For Visit: mg/depression Subjective Notes: Conditional Voluntary Diagnostics Labs 03/18/24 08:17 03/18/24 08:17 Assessment & Plan Assessment & Plan (1) PTSD (post-traumatic stress disorder): Status: Acute Code(s): F43.10 - Post-traumatic stress disorder, unspecified (2) Severe manic bipolar 1 disorder with psychotic behavior: Status: Acute Code(s): F31.2 - Bipolar disorder, current episode manic severe with psychotic features
[2024-03-31] MEDS: Liothyronine Sodium 25 MCG TABLET 12.5 MCG PO ×2 (08:23→17:24)
[2024-03-31] MEDS: buPROPion HCl XL 150 MG TAB.ER.24H PO (08:23)
[2024-03-31] MEDS: carBAMazepine ER 100 MG TAB.ER.12H 150 MG PO ×2 (08:24→21:21)
[2024-03-31] MEDS: Lurasidone HCl 40 MG TABLET PO (12:29)
[2024-03-31 19:58] VITALS: BP 145/81; PULSE 93; RESP 16; TEMP 37; O2SAT 98
[2024-03-31] MEDS: Donepezil HCl 5 MG TABLET PO (21:21)
[2024-04-01 07:05] VITALS: BP 157/74; PULSE 83; RESP 16; TEMP 36.4; O2SAT 99
[2024-04-01] MEDS: buPROPion HCl XL 150 MG TAB.ER.24H PO (08:09)
[2024-04-01] MEDS: Liothyronine Sodium 25 MCG TABLET 12.5 MCG PO ×2 (08:10→17:38)
[2024-04-01 11:24] LABS: Carbamazepine Tegretol 6.7 mcg/mL (5.0-12.0)
[2024-04-01] MEDS: Lurasidone HCl 40 MG TABLET PO (12:18)
[2024-04-01] MEDS: carBAMazepine ER 200 MG TAB.ER.12H PO ×2 (12:20→21:44)
[2024-04-01 20:00] VITALS: BP 145/82; PULSE 90; RESP 18; TEMP 36.6; O2SAT 98
[2024-04-01] MEDS: Donepezil HCl 5 MG TABLET PO (21:44)
--- NOTE | 2024-04-01 23:46 | HO.PSYCHPN ---
Subjective Subjective Date of Service: 04/01/24 Reason For Visit: mg/depression Interim History: The patient was jumping from topic to topic periods of expansiveness mildly phoria preoccupation in having discharge seeing her boyfriend going to court where she is facing 2 warrants with the expectation that the beach expert will hear her and end putting her in residential. She is accepting of needing treatment for her bipolar states and understands that she has had rapid cycling patient did eventually agree to retract her 3 day accepted that she needed a little bit more time for stabilization seem to be too impulsive and mildly euphoric although not bizarrely psychotic was not aggressive Mental Status Exam Mental Status Exam Patient Appearance: Well Grooomed Patient Orientation: Person, Place, Time and Situation Level of Consciousness: Awake and Alert Patient Behavior: Cooperative and Good Eye Contact Mood Description: Happy Affect Description: Euphoric Ability to Follow Directions: Good Speech Pattern: Rambling and Rapid Hallucinations: None Delusions: Not Present Thought Process: Racing Thought Content: positive for Racing and positive for Hypochondriasis Depressive Symptoms: Increased Anxiety Diagnostics Vital Signs (24Hr): Vital Signs - 24 hr 04/01/24 07:05 04/01/24 20:00 Temperature 97.5 F 97.9 F Pulse Rate 83 90 Respiratory Rate 16 18 Blood Pressure 157/74 H 145/82 H Pulse Oximetry 99 98 Oxygen Delivery Method Room Air Room Air BMI result Body Mass Index 35.2 Labs 03/18/24 08:17 03/18/24 08:17 Labs: Laboratory Results - last 48 hr 04/01/24 10:55 Carbamazepine 6.7 Imaging Radiology Impressions: ITS Impressions Lumbar Spine X-Ray 02/01/24 17:03 IMPRESSION: Stable appearance of the lumbar spine with compression fractures of L3 and L4. No new fractures are seen. Electronically signed by: Imtiaz Mcclellan MD 02/01/2024 06:33 PM EDT RP Medications Medications Current Medications Acetaminophen (Acetaminophen 325 Mg Tablet) 650 mg PO Q6H PRN PRN Reason: Pain, Mild (Pain Scale 1-3) Last Admin: 03/31/24 07:29 Dose: 650 mg Al Hydroxide/Mg Hydroxide (Magnesium Hydrox/Alum Hydrox 30 Ml Oral.Susp) 30 ml PO Q6H PRN PRN Reason: Heartburn/Nausea Carbamazepine (Carbamazepine Er 200 Mg Tab.Er.12h) 200 mg PO BID [facility] Last Admin: 04/01/24 21:44 Dose: 200 mg Donepezil HCl (Donepezil Hcl 5 Mg Tablet) 5 mg PO BEDTIME [facility] Last Admin: 04/01/24 21:44 Dose: 5 mg Hydroxyzine HCl (Hydroxyzine Hcl 25 Mg Tablet) 25 mg PO Q6H PRN PRN Reason: Anxiety or w/haldol EPS Proph Last Admin: 03/11/24 21:44 Dose: 25 mg Lidocaine (Lidocaine 4 % Patch Adh..Patch) 1 patch TRANSDERMA DAILY PRN; Protocol PRN Reason: low back pain Last Admin: 02/15/24 14:33 Dose: 1 patch Liothyronine Sodium (Liothyronine Sodium 25 Mcg Tablet) 12.5 mcg PO BID@0800,1800 [facility] Last Admin: 04/01/24 17:38 Dose: 12.5 mcg Lurasidone HCl (Lurasidone Hcl 40 Mg Tablet) 40 mg PO DAILY@1230 [facility] Last Admin: 04/01/24 12:18 Dose: 40 mg Magnesium Hydroxide (Milk Of Magnesia 30 Ml Oral.Susp) 30 ml PO DAILY PRN PRN Reason: Constipation Last Admin: 02/28/24 11:41 Dose: 30 ml Allergies Allergies Allergy/AdvReac Type Severity Reaction Status Date / Time No Known Allergies Allergy Verified 01/29/24 05:53 Assessment & Plan Assessment & Plan (1) PTSD (post-traumatic stress disorder): Status: Acute Code(s): F43.10 - Post-traumatic stress disorder, unspecified (2) Severe manic bipolar 1 disorder with psychotic behavior: Status: Acute Code(s): F31.2 - Bipolar disorder, current episode manic severe with psychotic features Plan The patient is severely depressed withdrawn out of beds for periods. 1st dose of Latuda given will stop melatonin. Mirtazapine in case contributing factor to daytime lethargy check labs in the morning monitor for dehydration patient on Lasix 03/10/2024 Patient with slowed mentation dulled knows name place BUN somewhat elevated electrolytes within normal limits LFTs mildly increased Stop melatonin. Mirtazapine may be contributing to lethargy lower Wellbutrin to 150 mg daily recheck LFTs consider ECT check UA Aricept held hepatitis screen 03/12 continue tx. 03/13 continue tx. 03/14: In bed most of shift. Pt reports feeling tired ; per nursing, pt slept 10 hours last night. Delayed responses, appears thought blocking. Pt denies SI/HI/VH/AH. Showered. Continue current tx plan. 03/15/24 Inc latuda 40 mg daily cont lorazepam still no change introduced option of ect 03/16/24 Pt on inc latuda 40 mg wellbutrin encourage oob needs encouragement for food fluids ? some improvement noted 03/17/24 Again discussed option of ect discussed with patient and nursing need to take Latuda with food check TSH liothyronine use for antidepressant augmentation get med clearance for ect 03/18/2024 Stop lorazepam does not appear to be helpful will start low-dose Depakote had similar experience on Geriatrics previously strongly consider ECT 03/19 the patient remains hypoactive no changes in her mental status. 03/20 no changes in her mental status, slight improvement on her range of affect. Keep same treatment 03/21: depressed. blunted. not responding to medications. T/C ECT. 03/22: per staff, improved behaviors as of yesterday afternoon. up and about this morning, much less PMR and more verbal and spontaneous. continue current mgmt for now. 03/23: in bed again today, slowed and less verbal. continue current mgmt. 03/24: increase wellbutrin to 300 mg daily. up at art group today. struggling to maintain recent improvements. 03/25: in bed again today. inconsistent energy and motivation day to day. continue current mgmt. 03/26: more up and about today. showered, group, eating better. continue current mgmt. 03/27: flipped back to mg. did not sleep last night. hyperverbal, rapid thoughts. restart tegretol XR 100 BID. 03/28: started on tegretol. slept 6.5 hours last night. remains hypomanic, euphoric, labile. continue current mgmt. 03/29/24 Inc tegretol 150 bid dec wellbutrin 150 mg am 03/30/24 improving more stable need to clarify d/c plans cont tegretol latuda 03/31: Continue current tx plan. 04/01/2024 Patient hypomanic history of poor judgment when manic. Patient agrees to give more time for stabilization. Tegretol increased to 200 b.i.d. recheck level in 2 days. Wellbutrin discontinued can increase Latuda to 60 mg can lower liothyronine follow response Reason for continued inpatient stay Substantial Risk for: inability to function and rapid decompensation Time Spent With Patient Time: Total time managing care of this patient today ____ minutes.
[2024-04-02] MEDS: Acetaminophen 325 MG TABLET 650 MG PO (06:40)
[2024-04-02 07:05] VITALS: BP 151/69; PULSE 77; RESP 16; TEMP 36.4; O2SAT 99
[2024-04-02] MEDS: carBAMazepine ER 200 MG TAB.ER.12H PO ×2 (08:13→21:28)
[2024-04-02] MEDS: Liothyronine Sodium 25 MCG TABLET 12.5 MCG PO ×2 (08:13→18:00)
--- NOTE | 2024-04-02 08:58 | P.PNPSI_ITS ---
Subjective Subjective Date of Service: 04/02/24 Reason For Visit: mg/depression Subjective Notes: Conditional Voluntary Interim History: Active on unit, attending groups. social with peers. talkative. pt reports feeling great today; pt stated, I don't feel anxious or depressed. I'm excited to go home soon . per nusing, slept 4 hours last night. Medication Compliance: Yes Side effects from medications: No Attending Groups: Yes Review of Systems Constitutional: Reports as per HPI Eyes: Reports as per HPI Reports as per HPI Cardiovascular: Reports as per HPI Respiratory: Reports as per HPI Gastrointestinal: Reports as per HPI Genitourinary: Reports as per HPI Musculoskeletal: Reports as per HPI Skin/Breast: Reports as per HPI Reports as per HPI Psychiatric: Reports as per HPI Endocrine: Reports as per HPI Hematologic/Lymphatic: Reports as per HPI Allergic/Immunologic: Reports as per HPI Mental Status Exam Mental Status Exam Patient Appearance: Well Grooomed Patient Orientation: Person, Place, Time and Situation Level of Consciousness: Awake and Alert Patient Behavior: Cooperative and Good Eye Contact Mood Description: Happy Affect Description: Euphoric Patient Cognition Impaired: No Ability to Follow Directions: Good Speech Pattern: Rambling and Rapid Memory Description: Intact Diagnostics Vital Signs (24Hr): Vital Signs - 24 hr 04/01/24 20:00 04/02/24 07:05 Temperature 97.9 F 97.5 F Pulse Rate 90 77 Respiratory Rate 18 16 Blood Pressure 145/82 H 151/69 H Pulse Oximetry 98 99 Oxygen Delivery Method Room Air Room Air BMI result Body Mass Index 35.2 Labs 03/18/24 08:17 03/18/24 08:17 Labs: Laboratory Results - last 48 hr 04/01/24 10:55 Carbamazepine 6.7 Imaging Radiology Impressions: ITS Impressions Lumbar Spine X-Ray 02/01/24 17:03 IMPRESSION: Stable appearance of the lumbar spine with compression fractures of L3 and L4. No new fractures are seen. Electronically signed by: Imtiaz Mcclellan MD 02/01/2024 06:33 PM EDT Medications Medications Current Medications Acetaminophen (Acetaminophen 325 Mg Tablet) 650 mg PO Q6H PRN PRN Reason: Pain, Mild (Pain Scale 1-3) Last Admin: 04/02/24 06:40 Dose: 650 mg Al Hydroxide/Mg Hydroxide (Magnesium Hydrox/Alum Hydrox 30 Ml Oral.Susp) 30 ml PO Q6H PRN PRN Reason: Heartburn/Nausea Carbamazepine (Carbamazepine Er 200 Mg Tab.Er.12h) 200 mg PO BID [facility] Last Admin: 04/02/24 08:13 Dose: 200 mg Donepezil HCl (Donepezil Hcl 5 Mg Tablet) 5 mg PO BEDTIME [facility] Last Admin: 04/01/24 21:44 Dose: 5 mg Hydroxyzine HCl (Hydroxyzine Hcl 25 Mg Tablet) 25 mg PO Q6H PRN PRN Reason: Anxiety or w/haldol EPS Proph Last Admin: 03/11/24 21:44 Dose: 25 mg Lidocaine (Lidocaine 4 % Patch Adh..Patch) 1 patch TRANSDERMA DAILY PRN; Protocol PRN Reason: low back pain Last Admin: 02/15/24 14:33 Dose: 1 patch Liothyronine Sodium (Liothyronine Sodium 25 Mcg Tablet) 12.5 mcg PO BID@0800,1800 [facility] Last Admin: 04/02/24 08:13 Dose: 12.5 mcg Lurasidone HCl (Lurasidone Hcl 40 Mg Tablet) 40 mg PO DAILY@1230 [facility] Last Admin: 04/01/24 12:18 Dose: 40 mg Magnesium Hydroxide (Milk Of Magnesia 30 Ml Oral.Susp) 30 ml PO DAILY PRN PRN Reason: Constipation Last Admin: 02/28/24 11:41 Dose: 30 ml Allergies Allergies Allergy/AdvReac Type Severity Reaction Status Date / Time No Known Allergies Allergy Verified 01/29/24 05:53 Assessment & Plan Assessment & Plan (1) PTSD (post-traumatic stress disorder): Status: Acute Code(s): F43.10 - Post-traumatic stress disorder, unspecified (2) Severe manic bipolar 1 disorder with psychotic behavior: Status: Acute Code(s): F31.2 - Bipolar disorder, current episode manic severe with psychotic features Plan The patient is severely depressed withdrawn out of beds for periods. 1st dose of Latuda given will stop melatonin. Mirtazapine in case contributing factor to daytime lethargy check labs in the morning monitor for dehydration patient on Lasix 03/10/2024 Patient with slowed mentation dulled knows name place BUN somewhat elevated electrolytes within normal limits LFTs mildly increased Stop melatonin. Mirtazapine may be contributing to lethargy lower Wellbutrin to 150 mg daily recheck LFTs consider ECT check UA Aricept held hepatitis screen 03/12 continue tx. 03/13 continue tx. 03/14: In bed most of shift. Pt reports feeling tired ; per nursing, pt slept 10 hours last night. Delayed responses, appears thought blocking. Pt denies SI/HI/VH/AH. Showered. Continue current tx plan. 03/15/24 Inc latuda 40 mg daily cont lorazepam still no change introduced option of ect 03/16/24 Pt on inc latuda 40 mg wellbutrin encourage oob needs encouragement for food fluids ? some improvement noted 03/17/24 Again discussed option of ect discussed with patient and nursing need to take Latuda with food check TSH liothyronine use for antidepressant augmentation get med clearance for ect 03/18/2024 Stop lorazepam does not appear to be helpful will start low-dose Depakote had similar experience on Geriatrics previously strongly consider ECT 03/19 the patient remains hypoactive no changes in her mental status. 03/20 no changes in her mental status, slight improvement on her range of affect. Keep same treatment 03/21: depressed. blunted. not responding to medications. T/C ECT. 03/22: per staff, improved behaviors as of yesterday afternoon. up and about this morning, much less PMR and more verbal and spontaneous. continue current mgmt for now. 03/23: in bed again today, slowed and less verbal. continue current mgmt. 03/24: increase wellbutrin to 300 mg daily. up at art group today. struggling to maintain recent improvements. 03/25: in bed again today. inconsistent energy and motivation day to day. continue current mgmt. 03/26: more up and about today. showered, group, eating better. continue current mgmt. 03/27: flipped back to mg. did not sleep last night. hyperverbal, rapid thoughts. restart tegretol XR 100 BID. 03/28: started on tegretol. slept 6.5 hours last night. remains hypomanic, euphoric, labile. continue current mgmt. 03/29/24 Inc tegretol 150 bid dec wellbutrin 150 mg am 03/30/24 improving more stable need to clarify d/c plans cont tegretol latuda 03/31: Continue current tx plan. 04/01/2024 Patient hypomanic history of poor judgment when manic. Patient agrees to give more time for stabilization. Tegretol increased to 200 b.i.d. recheck level in 2 days. Wellbutrin discontinued can increase Latuda to 60 mg can lower liothyronine follow response 04/02: continue current tx plan. Patient educated on: medication risk/benefits Reason for continued inpatient stay Substantial Risk for: med/psych decompensation Time Spent With Patient Time: Total time managing care of this patient today _20___ minutes.
[2024-04-02] MEDS: Lurasidone HCl 40 MG TABLET PO (12:14)
[2024-04-02 20:00] VITALS: BP 130/83; PULSE 100; RESP 16; TEMP 36.5; O2SAT 97
[2024-04-02] MEDS: Donepezil HCl 5 MG TABLET PO (21:28)
[2024-04-03 07:05] VITALS: BP 145/67; PULSE 75; RESP 16; TEMP 36.5; O2SAT 94
[2024-04-03] MEDS: Liothyronine Sodium 25 MCG TABLET 12.5 MCG PO ×2 (08:31→17:26)
[2024-04-03] MEDS: carBAMazepine ER 200 MG TAB.ER.12H PO ×2 (08:31→20:42)
--- NOTE | 2024-04-03 09:14 | P.PNPSI_ITS ---
Subjective Subjective Date of Service: 04/03/24 Reason For Visit: mg/depression Subjective Notes: Conditional Voluntary Interim History: talkative. intrusive. pt reports feeling great today; pt stated, I'm excited to go home . social, attending groups. Medication Compliance: Yes Side effects from medications: No Attending Groups: Yes Review of Systems Constitutional: Reports as per HPI Eyes: Reports as per HPI Reports as per HPI Cardiovascular: Reports as per HPI Respiratory: Reports as per HPI Gastrointestinal: Reports as per HPI Musculoskeletal: Reports as per HPI Skin/Breast: Reports as per HPI Reports as per HPI Psychiatric: Reports as per HPI Endocrine: Reports as per HPI Hematologic/Lymphatic: Reports as per HPI Allergic/Immunologic: Reports as per HPI Mental Status Exam Mental Status Exam Patient Appearance: Well Grooomed Patient Orientation: Person, Place, Time and Situation Level of Consciousness: Awake and Alert Patient Behavior: Cooperative and Good Eye Contact Mood Description: Happy Affect Description: Euphoric Patient Cognition Impaired: No Ability to Follow Directions: Good Speech Pattern: Rambling and Rapid Memory Description: Intact Diagnostics Vital Signs (24Hr): Vital Signs - 24 hr 04/02/24 20:00 04/03/24 07:05 Temperature 97.7 F 97.7 F Pulse Rate 100 75 Respiratory Rate 16 16 Blood Pressure 130/83 145/67 H Pulse Oximetry 97 94 Oxygen Delivery Method Room Air Room Air BMI result Body Mass Index 35.2 Labs 03/18/24 08:17 03/18/24 08:17 Labs: Laboratory Results - last 48 hr 04/01/24 10:55 Carbamazepine 6.7 Imaging Radiology Impressions: ITS Impressions Lumbar Spine X-Ray 02/01/24 17:03 IMPRESSION: Stable appearance of the lumbar spine with compression fractures of L3 and L4. No new fractures are seen. Electronically signed by: Imtiaz Mcclellan MD 02/01/2024 06:33 PM EDT RP Medications Medications Current Medications Acetaminophen (Acetaminophen 325 Mg Tablet) 650 mg PO Q6H PRN PRN Reason: Pain, Mild (Pain Scale 1-3) Last Admin: 04/02/24 06:40 Dose: 650 mg Al Hydroxide/Mg Hydroxide (Magnesium Hydrox/Alum Hydrox 30 Ml Oral.Susp) 30 ml PO Q6H PRN PRN Reason: Heartburn/Nausea Carbamazepine (Carbamazepine Er 200 Mg Tab.Er.12h) 200 mg PO BID [facility] Last Admin: 04/03/24 08:31 Dose: 200 mg Donepezil HCl (Donepezil Hcl 5 Mg Tablet) 5 mg PO BEDTIME REPLACED BY [facility] Last Admin: 04/02/24 21:28 Dose: 5 mg Hydroxyzine HCl (Hydroxyzine Hcl 25 Mg Tablet) 25 mg PO Q6H PRN PRN Reason: Anxiety or w/haldol EPS Proph Last Admin: 03/11/24 21:44 Dose: 25 mg Lidocaine (Lidocaine 4 % Patch Adh..Patch) 1 patch TRANSDERMA DAILY PRN; Protocol PRN Reason: low back pain Last Admin: 02/15/24 14:33 Dose: 1 patch Liothyronine Sodium (Liothyronine Sodium 25 Mcg Tablet) 12.5 mcg PO BID@0800,1800 REPLACED [facility] Last Admin: 04/03/24 08:31 Dose: 12.5 mcg Lurasidone HCl (Lurasidone Hcl 40 Mg Tablet) 40 mg PO DAILY@1230 REPLACED [facility] Last Admin: 04/02/24 12:14 Dose: 40 mg Magnesium Hydroxide (Milk Of Magnesia 30 Ml Oral.Susp) 30 ml PO DAILY PRN PRN Reason: Constipation Last Admin: 02/28/24 11:41 Dose: 30 ml Allergies Allergies Allergy/AdvReac Type Severity Reaction Status Date / Time No Known Allergies Allergy Verified 01/29/24 05:53 Assessment & Plan Assessment & Plan (1) PTSD (post-traumatic stress disorder): Status: Acute Code(s): F43.10 - Post-traumatic stress disorder, unspecified (2) Severe manic bipolar 1 disorder with psychotic behavior: Status: Acute Code(s): F31.2 - Bipolar disorder, current episode manic severe with psychotic features Plan The patient is severely depressed withdrawn out of beds for periods. 1st dose of Latuda given will stop melatonin. Mirtazapine in case contributing factor to daytime lethargy check labs in the morning monitor for dehydration patient on Lasix 03/10/2024 Patient with slowed mentation dulled knows name place BUN somewhat elevated electrolytes within normal limits LFTs mildly increased Stop melatonin. Mirtazapine may be contributing to lethargy lower Wellbutrin to 150 mg daily recheck LFTs consider ECT check UA Aricept held hepatitis screen 03/12 continue tx. 03/13 continue tx. 03/14: In bed most of shift. Pt reports feeling tired ; per nursing, pt slept 10 hours last night. Delayed responses, appears thought blocking. Pt denies SI/HI/VH/AH. Showered. Continue current tx plan. 03/15/24 Inc latuda 40 mg daily cont lorazepam still no change introduced option of ect 03/16/24 Pt on inc latuda 40 mg wellbutrin encourage oob needs encouragement for food fluids ? some improvement noted 03/17/24 Again discussed option of ect discussed with patient and nursing need to take Latuda with food check TSH liothyronine use for antidepressant augmentation get med clearance for ect 03/18/2024 Stop lorazepam does not appear to be helpful will start low-dose Depakote had similar experience on Geriatrics previously strongly consider ECT 03/19 the patient remains hypoactive no changes in her mental status. 03/20 no changes in her mental status, slight improvement on her range of affect. Keep same treatment 03/21: depressed. blunted. not responding to medications. T/C ECT. 03/22: per staff, improved behaviors as of yesterday afternoon. up and about this morning, much less PMR and more verbal and spontaneous. continue current mgmt for now. 03/23: in bed again today, slowed and less verbal. continue current mgmt. 03/24: increase wellbutrin to 300 mg daily. up at art group today. struggling to maintain recent improvements. 03/25: in bed again today. inconsistent energy and motivation day to day. continue current mgmt. 03/26: more up and about today. showered, group, eating better. continue current mgmt. 03/27: flipped back to mg. did not sleep last night. hyperverbal, rapid thoughts. restart tegretol XR 100 BID. 03/28: started on tegretol. slept 6.5 hours last night. remains hypomanic, euphoric, labile. continue current mgmt. 03/29/24 Inc tegretol 150 bid dec wellbutrin 150 mg am 03/30/24 improving more stable need to clarify d/c plans cont tegretol latuda 03/31: Continue current tx plan. 04/01/2024 Patient hypomanic history of poor judgment when manic. Patient agrees to give more time for stabilization. Tegretol increased to 200 b.i.d. recheck level in 2 days. Wellbutrin discontinued can increase Latuda to 60 mg can lower liothyronine follow response 04/02: continue current tx plan. 04/03: continue current tx plan. Patient educated on: medication risk/benefits Reason for continued inpatient stay Substantial Risk for: med/psych decompensation Time Spent With Patient Time: Total time managing care of this patient today _20___ minutes.
[2024-04-03] MEDS: Lurasidone HCl 40 MG TABLET PO (12:48)
[2024-04-03] MEDS: Acetaminophen 325 MG TABLET 650 MG PO (13:25)
[2024-04-03 20:00] VITALS: BP 144/72; PULSE 90; RESP 16; TEMP 36.5; O2SAT 100
[2024-04-03] MEDS: Donepezil HCl 5 MG TABLET PO (20:42)
[2024-04-04 08:00] VITALS: BP 143/76; PULSE 77; TEMP 36.7; O2SAT 100
[2024-04-04] MEDS: Liothyronine Sodium 25 MCG TABLET 12.5 MCG PO (08:49)
[2024-04-04] MEDS: carBAMazepine ER 200 MG TAB.ER.12H PO (08:49)
[2024-04-04] MEDS: Acetaminophen 325 MG TABLET 650 MG PO (08:50)
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
== END 2024-04-04 11:41 | disposition home or self-care (01) | DRG 885 ==
LOC: HO.ED 10:31 → HO.PADLT16 17:07
PROVIDERS: Psychiatry & Neurology Psychiatry; Registered Nurse; Admitting Provider Psychiatry & Neurology Psychiatry; Emergency Provider Student in an Organized Health Care Education/Training Program; PCP Internal Medicine; Visit Provider Psychiatry & Neurology Psychiatry
DX: F31.2 Bipolar disorder, current episode manic severe with psychotic features (principal); F43.12 Post-traumatic stress disorder, chronic; Z20.822 Contact with and (suspected) exposure to COVID-19; Z87.891 Personal history of nicotine dependence; Z79.899 Other long term (current) drug therapy
CPT/HCPCS: 36415; 72100; 80048; 80053; 80076; 80156; 80307; 81001; 81003; 83690; 84439; 84443; 85025; 86704; 86706; 86709; 86780; 86803; 87086; 87340; 87389; 87491; 87591; 87635; 90656; 93005; 99285; S9485

== ENCOUNTER 2024-01-29 16:38 | Outpatient (BNV) | payer MEDICARE, SELFPAY | END 2024-03-18 08:00 | PROVIDERS: Admitting Provider Psychiatry & Neurology Psychiatry; Emergency Provider Student in an Organized Health Care Education/Training Program; PCP Internal Medicine; Visit Provider Internal Medicine Cardiovascular Disease | DX: Z01.818 Encounter for other preprocedural examination (principal) | CPT/HCPCS: 93010 ==

== ENCOUNTER → 2024-01-29 16:38 | Outpatient (BNV) | payer MEDICARE, SELFPAY | PROVIDERS: Admitting Provider Psychiatry & Neurology Psychiatry; Emergency Provider Student in an Organized Health Care Education/Training Program; PCP Internal Medicine; Visit Provider Registered Nurse | DX: F31.2 Bipolar disorder, current episode manic severe with psychotic features (principal); F43.11 Post-traumatic stress disorder, acute | CPT/HCPCS: 90792; 99231; 99232 ==

== ENCOUNTER → 2024-01-29 16:38 | Outpatient (BNV) | payer MEDICARE, SELFPAY | PROVIDERS: Admitting Provider Psychiatry & Neurology Psychiatry; Emergency Provider Student in an Organized Health Care Education/Training Program; PCP Internal Medicine; Visit Provider Psychiatry & Neurology Psychiatry | DX: F31.2 Bipolar disorder, current episode manic severe with psychotic features (principal); F43.11 Post-traumatic stress disorder, acute | CPT/HCPCS: 99231; 99232 ==

== ENCOUNTER 2024-04-13 08:02 | Outpatient (AMB) | payer MEDICARE, SELFPAY ==
[2024-04-13 08:20] VITALS: BP 122/76; PULSE 101; TEMP 36.8; O2SAT 99; BMI 27.3
--- NOTE | 2024-04-13 08:20 | AM.OFFWIN_ITS ---
Intake Vital Signs 3 04/13/24 08:20 Height 5 ft 3 in Weight 154 lb 6 oz BMI 27.3 BP 122/76 Blood Pressure Location Lt brachial Position Sitting Pulse 101 H Pulse Source Pulse Oximeter Temp 98.2 F Temp Source Temporal Artery Scan Pulse Oximetry (%) 99 Oxygen Delivery Method Room Air Intake Visit Reasons: EP Rt shoulder pain Intake Note: Pt presents to the office today for right shoulder pain that started about a week ago with no known injury. Pt denies any numbness or tingling. Patient Tobacco Use Status: Former Tobacco user Allergies No Known Allergies Allergy (Verified 04/13/24 08:24) Medication List - Last Reconciled 04/13/24 by Radha Sher MD carbamazepine ER 200 mg PO BID 30 days donepezil 5 mg PO BEDTIME 30 days furosemide 20 mg PO DAILY 30 days liothyronine (Cytomel) 12.5 mcg (1/2 x 25 mcg) PO BID@0800,1800 30 days lurasidone (Latuda) 40 mg PO DAILY@1230 30 days HPI EP Rt shoulder pain 2 HPI0 Details Chief Complaint The patient presents with severe right shoulder pain. History of Present Illness The patient is a 68-year-old female presenting with severe shoulder pain, which commenced less than a week ago. She reports the pain is localized to her shoulder and experiences it daily. She denies any preceding trauma or specific activity that precipitated the onset. Movement is possible, but it exacerbates the pain. There is no reported weakness in the arm or hand. She attempted to manage the pain with Tylenol, as advised against non-steroidal anti-inflammatory drugs (NSAIDs) like ibuprofen due to her impaired kidney function. She was last seen by her primary care provider the day before the visit but forgot to mention her shoulder pain. She is also verbalizing concerned about the dosage of her thyroid medication. Plan For the shoulder pain, I will order an x-ray to rule out any underlying pathologies such as arthritis or inflammation. In addition to the current Tylenol regimen, I have prescribed oxycodone, [tramadol is interacting with carbamazepine that patient is taking] for pain management, advising the patient to take it at night to avoid daytime drowsiness. She was instructed to discuss her thyroid medication dosage with her primary care physician, particularly addressing her concerns regarding fatigue, and arrange follow-up for potential adjustments. Given her impaired kidney function Five tablets of oxycodone sent to be taken at night only [facility] Medical History Bipolar 1 disorder Airam RADHA (acute kidney injury) Fracture of right ulnar styloid Neurodegenerative cognitive impairment Bipolar disorder, most recent episode depressed Left ankle sprain Low back pain Acute bronchitis Left sided sciatica Depression Sore throat (viral) Surgical History Hx of colonoscopy No significant past surgical history Social History Household Members: Spouse Household Members Other:: Housing: House Do you presently have visiting nurse or other home services: No Alcohol intake: unknown Comment: Independent Patient Tobacco Use Status: Former Tobacco user e-Cigarette/Vaping Use: Never Used Substance Use Type: Marijuana service: No Sexual orientation: Straight/Heterosexual Review of Systems Const All systems reviewed & are unremarkable except as noted in HPI and below Physical Exam Vital Signs: Last Vital Signs Temp 98.2 F 04/13/24 08:20 Pulse 101 H 04/13/24 08:20 BP 122/76 04/13/24 08:20 Pulse Ox 99 04/13/24 08:20 Oxygen Delivery Method Room Air 04/13/24 08:20 BMI result Body Mass Index 27.3 Const General: no acute distress Orientation/consciousness: patient oriented x3 Eyes General: appearance normal, both eyes and all related structures Resp Effort & Inspection: normal respiratory effort and able to speak in complete sentences Neuro General: patient oriented x3 Extrem Shoulder/upper arm images: 2 1. Tender to pressure, range of motion intact but with severe pain, motor sensory intact in hand vascular intact Psych Mental Status: mental status grossly normal Assessment & Plan Assessment & Plan (1) Shoulder pain, right: Code(s): M25.511 - Pain in right shoulder Qualifiers: Chronicity: acute Qualified Code(s): M25.511 - Pain in right shoulder Plan Chief Complaint The patient presents with severe right shoulder pain. History of Present Illness The patient is a 68-year-old female presenting with severe shoulder pain, which commenced less than a week ago. She reports the pain is localized to her shoulder and experiences it daily. She denies any preceding trauma or specific activity that precipitated the onset. Movement is possible, but it exacerbates the pain. There is no reported weakness in the arm or hand. She attempted to manage the pain with Tylenol, as advised against non-steroidal anti-inflammatory drugs (NSAIDs) like ibuprofen due to her impaired kidney function. She was last seen by her primary care provider the day before the visit but forgot to mention her shoulder pain. She is also verbalizing concerned about the dosage of her thyroid medication. Plan For the shoulder pain, I will order an x-ray to rule out any underlying pathologies such as arthritis or inflammation. In addition to the current Tylenol regimen, I have prescribed oxycodone, [tramadol is interacting with carbamazepine that patient is taking] for pain management, advising the patient to take it at night to avoid daytime drowsiness. She was instructed to discuss her thyroid medication dosage with her primary care physician, particularly addressing her concerns regarding fatigue, and arrange follow-up for potential adjustments. Given her impaired kidney function Five tablets of oxycodone sent to be taken at night only Orders: Orders 2 XR shoulder RT min 2V Today M25.511 - Pain in right shoulder Medications: New 2 oxycodone Partial Fill upon patient request. 5 mg PO BEDTIME PRN 5 tabs 0RF pain Coding Level of Care Code Est Pt Level 3 (49592) Diagnoses Acute pain of right shoulder M25.511 Chronicity: acute Comment Forward this note to Dr. Robby Carrero
--- OUTSIDE RECORDS SUMMARY | 2024-04-13 22:58 | XMS_ITS | Clinical Summary ---
Author Organization Unknown Care Team Providers Care Tool Maintenance Worker Name Role Phone MARLEEN OCONNOR, DEANN Unavailable Unavailable DELMI PLUNKETT, VALERIE Unavailable Unavailable Payers Payer Name Policy Type Policy Number Effective Date Expira tion Date [place]IC[place] [id number] Problems Condition Name Condition Details Condition Category Status Onset Date Resolution Date Last Treatment Date Treating Clinician Comments BIPOLAR DISORD, CRNT EPSD DEPRESS, MILD OR MOD SEVERT, UNSP Active 09-23 00:00: 00 Allergies, Adverse Reactions, Alerts Allergy Name Allergy Type Status Severity Reaction(s) Onset Date Inactive Date Treating Clinician Comments NKA Propensity to adverse reactions Active 2022-10 08:42:4 3 Medications Ordered Medication Name Filled Medication Name Start Date Stop Date Current Medication? Ordering Clinician Indication Dosage Frequency Signature (SIG) Comments Components bupropion HCl XL 300 mg 24 hr tablet, extended release 10-14 00:00: 00 Yes [id number] 1 tablet DAILY 1 tablet DAILY (route: oral) Med Classific ation: Central Nervous System Agents Vraylar 4.5 mg capsule 10-14 00:00: 00 Yes [id number] 1 capsule DAILY 1 capsule DAILY (route: oral) Med Classific ation: Central Nervous System Agents Vital Signs Vital Name Observation Time Observation Value Commen ts Temperature 2022-10-18 10:44:00.000 97.8 [degF] BMI (%) 2022-10-14 09:34:06.000 0 kg/m2 Height 2022-10-14 09:34:00.000 756 [in_us] Pulse 2022-10-18 10:44:00.000 78 /min Respirations 2022-10-18 10:44:00.000 18 /min Weight (lbs) 2022-10-14 09:34:06.000 140 [lb_av] Systolic Blood Pressure 2022-10-18 10:44:00.000 112 mm [Hg] Diastolic Blood Pressure 2022-10-18 10:44:00.000 68 mm [Hg] Plan of Treatment Planned Activity Planned Date Details Comments Future Scheduled Test SKILLED NU RSE TO EVALUATE PATIENT, IDENTIFY PRIMARY AND CO-MORBID CONDITIONS CODED PER CODING GUIDELINES, AND DEVELOP PATIENT SPECIFIC PLAN OF CARE THAT INCLUDES PATIENT GOAL FOR HOME HEALTH. PATIENT IS A 66 YEAR OLD BEING ADMITTED TO SERVICES FOR DISEASE AND MED MGMT. PATIENT WAS ADMITTED AT [facility] AND TREATED FOR BIPOLAR. PATIENT HAD STOPPED TAKING ALL HER MEDS PRIOR TO HOSPITALIZATION. PATIENT WAS STARTED BACK ON HER BUPROPION 300MG AND VRAYLA 4.5MG. SN MET PATIENT AT HOME WITH HER IN THE BEDROOM AND ALSO SON WHO IS A SPECIAL NEED. PATIENT IS CAREGIVER FOR BOTH. PATIENT'S HOUSE IS VERY CLUTTERED AND SHE REPORTED IS WORKING ON IT. DURING VISIT, PATIENT PRESENTED TO BE BUSY AND GOING BACK AND FORTH IN BETWEEN ASSESSMENT. PATIENT REPORTED HAD ALREADY SEEN PCP AND PSYCHIATRIST. SN CALLED AND CONFIRMED WITH REBECCA THAT PATIENT WAS SEEN BY PCP. SN LEFT A VOICEMAIL FOR PSYCHIATRIST OFFICE TO BE CALLED BACK. PATIENT TOOK HER MEDS DURING VISIT AND STATED WILL NOT MISS HER MEDS AGAIN. PATIENT REPORTED JUST GOT DEPRESSED AND STOPPED TAKING HER MEDS BUT NOW HER GOAL IS TO GET BETTER AND GO BACK TO [facility] AND WORK OVERNIGHTS. PATIENT HAS UPCOMING BIRTHDAY ?ND REPORTED WILL BE GOING TO [facility] FROM THURSDAY-THURSDAY WITH A FRIEND. PATIENT WILL BE SEEN SCHEDULED FOR DISEASE AND MED AND TO KEEP HER SAFE AT HOME [code = SKILLED NURSE TO EVALUATE PATIENT, IDENTIFY PRIMARY AND CO-MORBID CONDITIONS CODED PER CODING GUIDELINES, AND DEVELOP PATIENT SPECIFIC PLAN OF CARE THAT INCLUDES PATIENT GOAL FOR HOME HEALTH. PATIENT IS A 66 YEAR OLD BEING ADMITTED TO SERVICES FOR DISEASE AND MED MGMT. PATIENT WAS ADMITTED AT [facility] AND TREATED FOR BIPOLAR. PATIENT HAD STOPPED TAKING ALL HER MEDS PRIOR TO HOSPITALIZATION. PATIENT WAS STARTED BACK ON HER BUPROPION 300MG AND VRAYLA 4.5MG. SN MET PATIENT AT HOME WITH HER IN THE BEDROOM AND ALSO SON WHO IS A SPECIAL NEED. PATIENT IS CAREGIVER FOR BOTH. PATIENT'S HOUSE IS VERY CLUTTERED AND SHE REPORTED IS WORKING ON IT. DURING VISIT, PATIENT PRESENTED TO BE BUSY AND GOING BACK AND FORTH IN BETWEEN ASSESSMENT. PATIENT REPORTED HAD ALREADY SEEN PCP AND PSYCHIATRIST. SN CALLED AND CONFIRMED WITH REBECCA THAT PATIENT WAS SEEN BY PCP. SN LEFT A VOICEMAIL FOR PSYCHIATRIST OFFICE TO BE CALLED BACK. PATIENT TOOK HER MEDS DURING VISIT AND STATED WILL NOT MISS HER MEDS AGAIN. PATIENT REPORTED JUST GOT DEPRESSED AND STOPPED TAKING HER MEDS BUT NOW HER GOAL IS TO GET BETTER AND GO BACK TO [facility] AND WORK OVERNIGHTS. PATIENT HAS UPCOMING BIRTHDAY ?ND REPORTED WILL BE GOING TO [facility] FROM THURSDAY-THURSDAY WITH A FRIEND. PATIENT WILL BE SEEN SCHEDULED FOR DISEASE AND MED AND TO KEEP HER SAFE AT HOME] Future Scheduled Test SKILLED NU RSE TO O/A OF PATIENTS MENTAL/BEHAVIORAL STATUS, ASSESS VITAL SIGNS EACH VISIT, ALLOW 2 PRNS FOR MEDICATION MANAGEMENT. [code = SKILLED NURSE TO O/A OF PATIENTS MENTAL/BEHAVIORAL STATUS, ASSESS VITAL SIGNS EACH VISIT, ALLOW 2 PRNS FOR MEDICATION MANAGEMENT.] Future Scheduled Test SKILLED NU RSE TO ADMINISTER MEDICATIONS EACH VISIT AND PRE-POUR MEDICATIONS EACH VISIT PER MEDICATION LIST. [code = SKILLED NURSE TO ADMINISTER MEDICATIONS EACH VISIT AND PRE-POUR MEDICATIONS EACH VISIT PER MEDICATION LIST.] Future Scheduled Test SKILLED NU RSE FOR O/A OF ALTERED MOOD [code = SKILLED NURSE FOR O/A OF ALTERED MOOD] Future Scheduled Test SKILLED NU RSE FOR O/A AND SKILLED TEACHING RELATED TO MANAGEMENT OF DEPRESSIVE SYMPTOMS AND/OR DEPRESSION INCLUDING PARTICIPATION IN [facility] CARE SPECIALTY PROGRAM. SN TO REPORT SIGNIFICANT CHANGE IN DEPRESSIVE SYMPTOMS TO CLINICAL PROVIDER FOR EARLY INTERVENTION. [code = SKILLED NURSE FOR O/A AND SKILLED TEACHING RELATED TO MANAGEMENT OF DEPRESSIVE SYMPTOMS AND/OR DEPRESSION INCLUDING PARTICIPATION IN [facility] CARE SPECIALTY PROGRAM. SN TO REPORT SIGNIFICANT CHANGE IN DEPRESSIVE SYMPTOMS TO CLINICAL PROVIDER FOR EARLY INTERVENTION.] Future Scheduled Test SKILLED NU RSE FOR O/A OF GENERAL HEALTH STATUS OF PAIN, CARDIAC, RESPIRATORY, GASTROINTESTINAL, GENITOURINARY, SKIN, NEUROLOGIC, ENDOCRINE SYSTEMS TO IDENTIFY CHANGES ASSOCIATED WITH EXACERBATION FOR EARLY INTERVENTION OF COMPLICATIONS EACH VISIT [code = SKILLED NURSE FOR O/A OF GENERAL HEALTH STATUS OF PAIN, CARDIAC, RESPIRATORY, GASTROINTESTINAL, GENITOURINARY, SKIN, NEUROLOGIC, ENDOCRINE SYSTEMS TO IDENTIFY CHANGES ASSOCIATED WITH EXACERBATION FOR EARLY INTERVENTION OF COMPLICATIONS EACH VISIT] Future Scheduled Test SKILLED NU RSE TO REVIEW PATIENT MEDICATIONS. INSTRUCT PATIENT/CAREGIVER ON MONITORING OF EFFECTIVENESS, ADVERSE DRUG REACTIONS, SIDE EFFECTS OF ALL MEDICATIONS (PRESCRIPTION/-OTC), AND HOW AND WHEN TO REPORT PROBLEMS. [code = SKILLED NURSE TO REVIEW PATIENT MEDICATIONS. INSTRUCT PATIENT/CAREGIVER ON MONITORING OF EFFECTIVENESS, ADVERSE DRUG REACTIONS, SIDE EFFECTS OF ALL MEDICATIONS (PRESCRIPTION/-OTC), AND HOW AND WHEN TO REPORT PROBLEMS. ] Future Scheduled Test SKILLED NU RSE FOR OBSERVATION AND ASSESSMENT OF PATIENTS PAIN LEVEL AND EFFECTIVENESS OF PAIN MANAGEMENT REGIMEN. SKILLED NURSE TO INSTRUCT PATIENT/CAREGIVER REGARDING PHARMACOLOGIC AND NON-PHARMACOLOGIC PAIN CONTROL MEASURES. SKILLED NURSE TO REPORT TO PHYSICIAN IF PAIN IS UNCONTROLLED WITH CURRENT PAIN MANAGEMENT REGIMEN. [code = SKILLED NURSE FOR OBSERVATION AND ASSESSMENT OF PATIENTS PAIN LEVEL AND EFFECTIVENESS OF PAIN MANAGEMENT REGIMEN. SKILLED NURSE TO INSTRUCT PATIENT/CAREGIVER REGARDING PHARMACOLOGIC AND NON-PHARMACOLOGIC PAIN CONTROL MEASURES. SKILLED NURSE TO REPORT TO PHYSICIAN IF PAIN IS UNCONTROLLED WITH CURRENT PAIN MANAGEMENT REGIMEN.] Future Scheduled Test SKILLED NU RSE TO PROVIDE INSTRUCTION ON FALL PREVENTION MEASURES. [code = SKILLED NURSE TO PROVIDE INSTRUCTION ON FALL PREVENTION MEASURES.] Future Scheduled Test PATIENT MA Y HAVE ONE SET OF EMERGENCY MEDICATION NOT TO BE PRE-POURED ANY SOONER THAN 24 HOURS BEFORE SEVERE INCLEMENT WEATHER AND FOLLOWING SKILLED NURSE EVALUATION OF PATIENT SAFETY. [code = PATIENT MAY HAVE ONE SET OF EMERGENCY MEDICATION NOT TO BE PRE-POURED ANY SOONER THAN 24 HOURS BEFORE SEVERE INCLEMENT WEATHER AND FOLLOWING SKILLED NURSE EVALUATION OF PATIENT SAFETY.] Future Scheduled Test SKILLED NU RSE MAY PICKUP AND TRANSPORT MEDICATIONS [code = SKILLED NURSE MAY PICKUP AND TRANSPORT MEDICATIONS] Goal 2022-10-22 Patient Goal - T [facility] ALL MY MEDICATIONS AND GET A JOB Goal Provider Goal - A PLAN OF CARE WILL BE ESTABLISHED THAT MEETS PATIENT'S DETENTION NEEDS AND INCLUDES PATIENT GOAL FOR HOME HEALTH. Goal Provider Goal - ALTERED MENTAL/BEHAVIORAL STATUS WILL BE IDENTIFIED PROMPTLY AND INTERVENTION INITIATED QUICKLY TO MINIMIZE ASSOCIATED RISKS Goal Provider Goal - PATIENT WILL COMPLY WITH MEDICATION WHEN SKILLED NURSE ADMINISTERS AND PRE-POURS MEDICATION. Goal Provider Goal - PATIENT WILL BE ABLE TO PERFORM DAILY FUNCTIONS AND HAVE OPTIMAL IMPROVEMENT IN MOOD STABILITY. Goal Provider Goal - PATIENT WILL REMAIN SAFE WITHOUT DECOMPENSATION IN DEPRESSIVE CONDITION, WHILE MAINTAINING OPTIMAL LEVEL OF MENTAL HEALTH AND WELL BEING. Goal Provider Goal - CHANGE IN GENERAL HEALTH STATUS WILL BE IDENTIFIED AND REPORTED TO PHYSICIAN FOR PROMPT INTERVENTION TO MINIMIZE ASSOCIATED RISKS THROUGHOUT CERTIFICATION PERIOD. Goal Provider Goal - PATIENT/CAREGIVER WILL VERBALIZE UNDERSTANDING OF EDUCATION PROVIDED ON MEDICATIONS BY THE END OF THE CERTIFICATION PERIOD. Goal Provider Goal - INCREASED PAIN OR INEFFECTIVE PAIN CONTROL MEASURES WILL BE IDENTIFIED AND PROMPTLY REPORTED TO PHYSICIAN THROUGHOUT THE CERTIFICATION PERIOD. Goal Provider Goal - PATIENT/CAREGIVER DEMONSTRATES UNDERSTANDING OF FALL PREVENTION MEASURES BY THE END OF THE CERTIFICATION PERIOD. Reason for Visit INDEPENDENT IN THE COMMUNITY Encounters Start Date/Time End Date/Time Encounter Type Admission Type Attending [facility] Care Department Encounter ID Discharge Date Discharge Status Discharge Condition Discharge Reason Percent Goals Met 2022-10-14 00:00:00 2022-10-22 00:00:00 Outpatient NEW ADMISSION VALERIE AWAD [facility] ED [id number] 7626-06-21 00:00:00 DISCHARGE TO HOME OR SELF CARE INDEPENDEN T IN THE COMMUNITY NO LONGER HOMEBOUND ( ONLY) 83.33
== END 2024-04-13 09:33 | disposition home or self-care (01) ==
PROVIDERS: PCP Internal Medicine; Visit Provider Internal Medicine
DX: M25.511 Pain in right shoulder (principal)

== ENCOUNTER 2024-04-13 08:02 | Outpatient (REF) | payer MEDICARE, SELFPAY ==
--- NOTE | ~2024-04-13 | XR_ITS ---
EXAMINATION: XR RIGHT SHOULDER CLINICAL INFORMATION: Pain in right shoulder M25.511. COMPARISON: None available TECHNIQUE: AP external rotation, Grashey, scapular Y, and axillary views of the right shoulder. FINDINGS: No visible acute fracture or dislocation. Suspected bone mineralization. Glenohumeral and acromioclavicular alignment is anatomic with normal joint space. No abnormal soft tissue calcifications. XR/XR shoulder RT min 2V IMPRESSION: No radiographic evidence of acute osseous abnormality. Study is assigned/presented to me for interpretation on May 20, 2024 Electronically signed by: Manuel Ham MD 05/20/2024 04:56 PM [facility]
[2024-04-13 11:28] LABS: Influenza A PCR NEGATIVE (Negative); Influenza B PCR NEGATIVE (Negative); Resp Syncy Virus RNA Qual PCR NEGATIVE (Negative); SARS COV2 PCR INHOUSE NEGATIVE (Negative)
--- OUTSIDE RECORDS SUMMARY | 2024-04-13 23:05 | XMS_ITS | Clinical Summary ---
Author Organization Unknown Care Team Providers Care Door Clamper Name Role Phone MARLEEN OCONNOR, DEANN Unavailable Unavailable DELMI PLUNKETT, VALERIE Unavailable Unavailable Payers Payer Name Policy Type Policy Number Effective Date Expira tion Date [place]IC[place] - [place] [id number] Problems Condition Name Condition Details Condition Category [...] tablet, extended release 10-14 00:00: 00 Yes [id number] 1 tablet DAILY 1 tablet DAILY (route: oral) Med Classific ation: Central Nervous System Agents Vraylar 4.5 mg capsule 10-14 00:00: 00 Yes [id number] 1 capsule DAILY 1 capsule DAILY (route: [...] AND MED MGMT. PATIENT WAS ADMITTED AT [facility] FOR BIPOLAR. PATIENT HAD STOPPED [...] TO GET BETTER AND GO BACK TO [facility] AND WORK OVERNIGHTS. PATIENT HAS UPCOMING BIRTHDAY ?ND REPORTED WILL BE GOING TO [facility] FROM THURSDAY-THURSDAY WITH A FRIEND. PATIENT WILL [...] AND MED MGMT. PATIENT WAS ADMITTED AT [place] AND TREATED FOR BIPOLAR. PATIENT HAD STOPPED [...] TO GET BETTER AND GO BACK TO [facility] AND WORK OVERNIGHTS. PATIENT HAS UPCOMING BIRTHDAY ?ND REPORTED WILL BE GOING TO [facility] FROM THURSDAY-THURSDAY WITH A FRIEND. PATIENT WILL [...] DEPRESSIVE SYMPTOMS AND/OR DEPRESSION INCLUDING PARTICIPATION IN [facility] CARE SPECIALTY PROGRAM. SN TO REPORT SIGNIFICANT CHANGE IN DEPRESSIVE SYMPTOMS TO CLINICAL PROVIDER FOR EARLY INTERVENTION. [code = SKILLED NURSE FOR O/A AND SKILLED TEACHING RELATED TO MANAGEMENT OF DEPRESSIVE SYMPTOMS AND/OR DEPRESSION INCLUDING PARTICIPATION IN [facility] CARE SPECIALTY PROGRAM. SN TO REPORT [...] CARE WILL BE ESTABLISHED THAT MEETS PATIENT'S ALF NEEDS AND INCLUDES PATIENT GOAL FOR HOME [...] End Date/Time Encounter Type Admission Type Attending [facility] Care Department Encounter ID Discharge Date Discharge Status Discharge Condition Discharge Reason Percent Goals Met 2022-10-14 00:00:00 2022-10-22 00:00:00 Outpatient NEW ADMISSION VALERIE AWAD [facility] [id number] 8630-06-21 00:00:00 DISCHARGE TO HOME OR SELF CARE INDEPENDEN T IN THE COMMUNITY NO LONGER HOMEBOUND ( ONLY) 83.33
--- OUTSIDE RECORDS SUMMARY | 2024-04-13 23:05 | XMS_ITS | Clinical Summary ---
Author Organization Unknown Care Team Providers Care Network Project Manager Name Role Phone MARLEEN OCONNOR, DEANN Unavailable Unavailable DELMI PLUNKETT, VALERIE Unavailable Unavailable Payers Payer Name Policy Type Policy Number Effective Date Expira tion Date [place]IC[place] - [place] [id number] Problems Condition Name Condition Details Condition Category [...] tablet, extended release 10-14 00:00: 00 Yes [id number] 1 tablet DAILY 1 tablet DAILY (route: oral) Med Classific ation: Central Nervous System Agents Vraylar 4.5 mg capsule 10-14 00:00: 00 Yes [id number] 1 capsule DAILY 1 capsule DAILY (route: [...] AND MED MGMT. PATIENT WAS ADMITTED AT [place] AND TREATED FOR BIPOLAR. PATIENT HAD STOPPED [...] TO GET BETTER AND GO BACK TO [facility] AND WORK OVERNIGHTS. PATIENT HAS UPCOMING BIRTHDAY ?ND REPORTED WILL BE GOING TO [facility] FROM THURSDAY-THURSDAY WITH A FRIEND. PATIENT WILL [...] AND MED MGMT. PATIENT WAS ADMITTED AT [place] AND TREATED FOR BIPOLAR. PATIENT HAD STOPPED [...] TO GET BETTER AND GO BACK TO [facility] AND WORK OVERNIGHTS. PATIENT HAS UPCOMING BIRTHDAY ?ND REPORTED WILL BE GOING TO [facility] FROM THURSDAY-THURSDAY WITH A FRIEND. PATIENT WILL [...] DEPRESSIVE SYMPTOMS AND/OR DEPRESSION INCLUDING PARTICIPATION IN [facility] CARE SPECIALTY PROGRAM. SN TO REPORT SIGNIFICANT CHANGE IN DEPRESSIVE SYMPTOMS TO CLINICAL PROVIDER FOR EARLY INTERVENTION. [code = SKILLED NURSE FOR O/A AND SKILLED TEACHING RELATED TO MANAGEMENT OF DEPRESSIVE SYMPTOMS AND/OR DEPRESSION INCLUDING PARTICIPATION IN [facility] CARE SPECIALTY PROGRAM. SN TO REPORT SIGNIFICANT [...] CARE WILL BE ESTABLISHED THAT MEETS PATIENT'S ASSISTED NEEDS AND INCLUDES PATIENT GOAL FOR HOME [...] End Date/Time Encounter Type Admission Type Attending [facility] [[email or web address] Care Department Encounter ID Discharge Date Discharge Status Discharge Condition Discharge Reason Percent Goals Met 2022-10-14 00:00:00 2022-10-22 00:00:00 Outpatient NEW ADMISSION VALERIE AWAD [facility] [id number] 4822-06-21 00:00:00 DISCHARGE TO HOME OR SELF CARE INDEPENDEN T IN THE COMMUNITY NO LONGER HOMEBOUND ( ONLY) 83.33
== END 2024-04-13 08:03 | disposition home or self-care (01) ==
LOC: HO.HMGCX 08:02
PROVIDERS: PCP Internal Medicine; Visit Provider Internal Medicine
DX: M25.511 Pain in right shoulder (principal); R09.89 Other specified symptoms and signs involving the circulatory and respiratory systems
CPT/HCPCS: 0241U; 73030; 99212

== ENCOUNTER 2024-04-13 09:23 | Outpatient (REF) | payer MEDICARE, SELFPAY ==
--- OUTSIDE RECORDS SUMMARY | 2024-04-13 23:43 | XMS_ITS | Clinical Summary ---
Author Organization Unknown Care Team Providers Care Hvac Sheet Metal Installer Name Role Phone MARLEEN OCONNOR, DEANN Unavailable Unavailable DELMI PLUNKETT, VALERIE Unavailable Unavailable Payers Payer Name Policy Type Policy Number Effective Date Expira tion Date [place]IC[place] - [place] [id number] Problems Condition Name Condition Details Condition Category [...] tablet, extended release 10-14 00:00: 00 Yes [id number] 1 tablet DAILY 1 tablet DAILY (route: oral) Med Classific ation: Central Nervous System Agents Vraylar 4.5 mg capsule 10-14 00:00: 00 Yes [id number] 1 capsule DAILY 1 capsule DAILY (route: [...] AND MED MGMT. PATIENT WAS ADMITTED AT [place] AND TREATED FOR BIPOLAR. PATIENT HAD STOPPED [...] TO GET BETTER AND GO BACK TO [facility] AND WORK OVERNIGHTS. PATIENT HAS UPCOMING BIRTHDAY ?ND REPORTED WILL BE GOING TO [facility] FROM THURSDAY-THURSDAY WITH A FRIEND. [...] AND MED MGMT. PATIENT WAS ADMITTED AT [place] AND TREATED FOR BIPOLAR. PATIENT HAD STOPPED [...] TO GET BETTER AND GO BACK TO [facility] AND WORK OVERNIGHTS. PATIENT HAS UPCOMING BIRTHDAY ?ND REPORTED WILL BE GOING TO [facility] FROM THURSDAY-THURSDAY WITH A FRIEND. [...] DEPRESSIVE SYMPTOMS AND/OR DEPRESSION INCLUDING PARTICIPATION IN [facility] CARE SPECIALTY PROGRAM. SN TO REPORT SIGNIFICANT CHANGE IN DEPRESSIVE SYMPTOMS TO CLINICAL PROVIDER FOR EARLY INTERVENTION. [code = SKILLED NURSE FOR O/A AND SKILLED TEACHING RELATED TO MANAGEMENT OF DEPRESSIVE SYMPTOMS AND/OR DEPRESSION INCLUDING PARTICIPATION IN [facility] CARE SPECIALTY PROGRAM. SN TO REPORT [...] CARE WILL BE ESTABLISHED THAT MEETS PATIENT'S SENIOR LIVING NEEDS AND INCLUDES PATIENT GOAL FOR HOME [...] End Date/Time Encounter Type Admission Type Attending [facility] Care Department Encounter ID Discharge Date Discharge Status Discharge Condition Discharge Reason Percent Goals Met 2022-10-14 00:00:00 2022-10-22 00:00:00 Outpatient NEW ADMISSION VALERIE AWAD [facility] [id number] 5764-06-21 00:00:00 DISCHARGE TO HOME OR SELF CARE INDEPENDEN T IN THE COMMUNITY NO LONGER HOMEBOUND ( ONLY) 83.33
--- OUTSIDE RECORDS SUMMARY | 2024-04-13 23:43 | XMS_ITS | Clinical Summary ---
Author Organization Unknown Care Team Providers Care Plastic Finisher Name Role Phone MARLEEN OCONNOR, DEANN Unavailable Unavailable DELMI PLUNKETT, VALERIE Unavailable Unavailable Payers Payer Name Policy Type Policy Number Effective Date Expira tion Date [place]IC[place] - [place] [id number] Problems Condition Name Condition Details Condition Category [...] tablet, extended release 10-14 00:00: 00 Yes [id number] 1 tablet DAILY 1 tablet DAILY (route: oral) Med Classific ation: Central Nervous System Agents Vraylar 4.5 mg capsule 10-14 00:00: 00 Yes [id number] 1 capsule DAILY 1 capsule DAILY (route: [...] AND MED MGMT. PATIENT WAS ADMITTED AT [place] AND TREATED FOR BIPOLAR. PATIENT HAD STOPPED [...] TO GET BETTER AND GO BACK TO [facility] PS[facility]CH [facility] AND WORK OVERNIGHTS. PATIENT HAS UPCOMING BIRTHDAY ?ND REPORTED WILL BE GOING TO [facility] FROM THURSDAY-THURSDAY WITH A FRIEND. PATIENT WILL [...] AND MED MGMT. PATIENT WAS ADMITTED AT [place] AND TREATED FOR BIPOLAR. PATIENT HAD STOPPED [...] TO GET BETTER AND GO BACK TO [facility] AND WORK OVERNIGHTS. PATIENT HAS UPCOMING BIRTHDAY ?ND REPORTED WILL BE GOING TO [facility] FROM THURSDAY-THURSDAY WITH A FRIEND. PATIENT WILL [...] DEPRESSIVE SYMPTOMS AND/OR DEPRESSION INCLUDING PARTICIPATION IN [facility] CARE SPECIALTY PROGRAM. SN TO REPORT SIGNIFICANT CHANGE IN DEPRESSIVE SYMPTOMS TO CLINICAL PROVIDER FOR EARLY INTERVENTION. [code = SKILLED NURSE FOR O/A AND SKILLED TEACHING RELATED TO MANAGEMENT OF DEPRESSIVE SYMPTOMS AND/OR DEPRESSION INCLUDING PARTICIPATION IN [facility] CARE SPECIALTY PROGRAM. SN TO [...] CARE WILL BE ESTABLISHED THAT MEETS PATIENT'S PRISON NEEDS AND INCLUDES PATIENT GOAL FOR HOME [...] End Date/Time Encounter Type Admission Type Attending [facility] Care Department Encounter ID Discharge Date Discharge Status Discharge Condition Discharge Reason Percent Goals Met 2022-10-14 00:00:00 2022-10-22 00:00:00 Outpatient NEW ADMISSION VALERIE AWAD [facility] [id number] 9795-06-21 00:00:00 DISCHARGE TO HOME OR SELF CARE INDEPENDEN T IN THE COMMUNITY NO LONGER HOMEBOUND ( ONLY) 83.33
== END 2024-04-13 09:24 | disposition home or self-care (01) ==
LOC: HO.LNP 09:23
PROVIDERS: Visit Provider Internal Medicine
DX: Z13.89 Encounter for screening for other disorder (principal)

== ENCOUNTER 2024-07-07 12:31 | Inpatient (IN) | payer MEDICARE, SELFPAY ==
[2024-07-07 12:37] VITALS: BP 133/78; PULSE 88; RESP 18; TEMP 36.8; O2SAT 96; BMI 24.2
--- NOTE | 2024-07-07 12:37 | ED_ITS ---
HPI - Psych General Chief Complaint: Psychiatric Symptoms Stated Complaint: Crisis, bipolar Time Seen by Provider: 07/07/24 13:25 Source: patient, RN notes reviewed and old records reviewed Mode of arrival: ambulatory History of Present Illness ED Provider: Genoveva Baker PA-C HPI Narrative: 68-year-old female with a past medical history bipolar, mg, RADHA, depression, neurodegenerative cognitive impairment, presenting to ED with complaints of increasing depression x2 months. Reports noncompliance with prescribed medication x2 months, self stopped. denies SI/HI, auditory / visual hallucinations, EtOH or drug use. Related Data Previous Rx's ?Medication ?Instructions ?Recorded carbamazepine 200 mg 200 mg PO BID 30 days #60 tabs 04/04/24 tablet,extended release,12 hr donepezil 5 mg tablet 5 mg PO BEDTIME 30 days #30 tabs 04/04/24 furosemide 20 mg tablet 20 mg PO DAILY 30 days #30 tabs 04/04/24 liothyronine 25 mcg tablet 12.5 mcg (1/2 x 25 mcg) PO 04/04/24 (Cytomel) BID@0800,1800 30 days #30 tabs lurasidone 40 mg tablet (Latuda) 40 mg PO DAILY@1230 30 days #30 04/04/24 tabs Allergies Allergy/AdvReac Type Severity Reaction Status Date / Time No Known Allergies Allergy Verified 07/07/24 12:40 Review of Systems 2 Review of Systems: Yes all other systems are reviewed and are negative Constitutional: Constitutional: Reports as per [facility] Past Medical History Attestation statement: The following information was validated with the patient. Source: old records reviewed Medical History Bipolar 1 disorder Mg RADHA (acute kidney injury) Fracture of right ulnar styloid Neurodegenerative cognitive impairment Bipolar disorder, most recent episode depressed Left ankle sprain Low back pain Acute bronchitis Left sided sciatica Depression Sore throat (viral) Surgical History Hx of colonoscopy No significant past surgical history Social History Social History Household Members: Spouse Household Members Other:: Housing: House Do you presently have visiting nurse or other home services: No Alcohol intake: unknown Comment: Independent Patient Tobacco Use Status: Former Tobacco user e-Cigarette/Vaping Use: Never Used Substance Use Type: Marijuana Advance Directives: No Advance Directives Information Provided: No service: No Sexual orientation: Straight/Heterosexual Physical Exam 2 Vital Signs: Vital Signs: Last Vital Signs Temp 98.2 F 07/07/24 12:37 Pulse 88 07/07/24 12:37 Resp 18 07/07/24 12:37 BP 133/78 07/07/24 12:37 Pulse Ox 96 07/07/24 12:37 O2 Del Method Room Air 07/07/24 12:37 BMI result Body Mass Index 24.2 Const: General: cooperative, healthy appearing and no acute distress O rientation/consciousness: patient oriented x3 Limitations: no limitations HEENT: Head: Yes normal to inspection and Yes atraumatic Ears: hearing grossly normal bilaterally General nose exam: Normal external nose present Face and sinus: Yes normal facial exam Eyes: General: appearance normal, both eyes and all related structures EOM: EOMs intact bilaterally Neck: Neck: Yes normal visual inspection and Yes no meningeal signs Resp: Effort & Inspection: normal respiratory effort and no respiratory distress Cardio: Rate: regular rate Skin: Rashes: no rashes Wounds: no wounds Neuro: General: patient oriented x3, gait normal, tone normal, moves all extremities, no meningeal signs, no focal motor deficits and CN's II-XI intact bilaterally Cranial nerves: Yes CN's II-XII intact bilaterally Cognition (Neuro): normal cognition Gait exam (Neuro): Normal gait present Extrem: General: Yes normal to inspection Psych: Mental Status: mental status grossly normal Speech and movement: N ormal speech and movement present Attitude: cooperative Thought process: N ormal thought process present Thought content: suicidality, no homicidality and Depressive thoughts present Insight: Good insight present (Psych) Course Course Course Narrative: This is an RME: Additional HPI, ROS, PE not included below will be deferred to primary provider. RME assessment and note performed by: Rosa Maria Pugh PA-C This is a 7-dnyg-dux-female, with a hx of bipolar disorder, PTSD who presents to the ER, accompanied by her brother, with complaints of worsening depression x 2 months. Reports that she d/c'd her medications 2 months ago. Reports that she stopped picking up her medications which is why she is no longer taking them. Reports some life stressors - just lost her brother several weeks ago. Plan: Labs, UA, further ER eval needed. - labs reassuring. UA contaminated. Tox screen negative -1526-- patient was evaluated by CARE team, will be [facility] inpatient psych bed search for mood stabilization and medication evaluation. Will be placed on section 12 for safety. Physician observation initiated -2099--ED care transferred to Dr. Daniels pending bed search Medical Decision Making Medical Decision Making MDM Narrative: 68-year-old female with a past medical history bipolar, mg, RADHA, depression, neurodegenerative cognitive impairment, presenting to ED with complaints of increasing depression x2 months. On exam vital signs stable, NAD, nontoxic appearing, denies SI/ HI. Rule out organic causes. Concern for medication noncompliance Plan: Labs, tox screen, CARE team consult Please refer to course for remaining clinical decision making, interpretation of labs/imaging results, and discussions with consultants and/or family members. Differential Diagnosis Differential Diagnoses: The differential diagnosis associated with the presentation includes As above Admission/Observation Consideration of admission/observation: Escalation of care including admission/observation considered Consult Healthcare Provider Management of the patient was discussed with: Behavioral Health Provider Lab Data [facility] Lab Attestation statement: I reviewed the patient's lab results. 07/07/24 13:35 07/07/24 13:35 Labs: Lab Results 07/07/24 07/07/24 Range/Units 13:23 13:35 WBC 7.5 (4.8-10.8) X10*3/uL RBC 4.50 (4.20-5.50) X10*6/uL Hgb 13.0 (12.0-16.0) g/dl Hct 40.1 (37.0-47.0) % MCV 89.1 (80.0-98.0) fL MCH 28.9 (27.0-33.0) pg MCHC 32.4 (31.0-35.0) g/dl RDW 14.6 (11.0-16.0) % Plt Count 347 (160-400) X10*3/uL MPV 9.4 (9.4-12.3) fL Immature Gran % (Auto) 0.3 (0.0-0.4) % Neut % (Auto) 71.0 (45-73) % Lymph % (Auto) 22.4 (20-40) % [place] % (Auto) 5.4 (2-11) % Eos % (Auto) 0.5 (0-4) % Baso % (Auto) 0.4 (0-2) % Lymph # (Auto) 1.7 (1.2-4.9) X10*3/uL [place] # (Auto) 0.4 (0.1-1.2) X10*3/uL Eos # (Auto) 0.0 (0.0-0.4) X10*3/uL Baso # (Auto) 0.0 (0.0-0.2) X10*3/uL Abs Immat Gran (auto) 0.02 (0.00-0.03) X10*3/uL Absolute Neuts (auto) 5.3 (2.0-8.3) x10*3/uL Absolute Nucleated RBC 0.000 (0.0-0.012) X10*3/uL Nucleated RBC % (auto) 0.0 (0.0-0.2) /100WBC Sodium 141 (135-145) mmol/L Potassium 3.6 (3.3-5.1) mmol/L Chloride 110 H (96-108) mmol/L Carbon Dioxide 24 (22-29) mmol/L Anion Gap 11 L (12-20) BUN 20 H (9-16) mg/dL Creatinine 0.87 (0.5-1.4) mg/dL Estim Creat Clear Calc 49.7 Estimated GFR > 60 Random Glucose 102 (60-115) mg/dL Calcium 9.0 (8.4-10.2) mg/dL Total Bilirubin 0.5 (0.0-1.0) mg/dL AST 23 (5-31) U/L ALT 16 (0-31) U/L Alkaline Phosphatase 88 (39-117) U/L Total Protein 7.1 (6.5-8.0) g/dL Albumin 3.9 (3.5-5.0) g/dL Urine Color Yellow Urine Appearance Cloudy Urine pH 5.0 (5.0-9.0) Ur Specific [place] 1.025 (1.005-1.025) Urine Protein Trace (Neg-Trace) mg/dL Urine Glucose (UA) Negative (Negative) mg/dL Urine Ketones Trace (Negative) mg/dL Urine Blood Negative (Negative) Urine Nitrite Negative (Negative) Ur Leukocyte Esterase Moderate (2+) H (Negative) Urine RBC 0-2 (0-2) /HPF Urine WBC 21-50 (0-5) /HPF Ur Squamous Epith Cells 11-20 (0-2) /HPF Urine Bacteria 2+ (None Seen) Hyaline Casts 3-5 (0-2) /LPF Salicylates < 5.0 L (15-30) mg/dL Urine Opiates Screen Not Detected (Not Detect) Ur Buprenorphine Scrn Not Detected (Not Detect) ng/mL Ur Oxycodone Screen Not Detected (Not Detect) ng/mL Urine Methadone Screen Not Detected (Not Detect) ng/mL Urine Fentanyl Screen Not Detected (Not Detect) Acetaminophen < 3 (<30) mcg/mL Ur Barbiturates Screen Not Detected (Not Detect) Ur Phencyclidine Scrn Not Detected (Not Detect) Ur Amphetamines Screen Not Detected (Not Detect) U Benzodiazepines Scrn Not Detected (Not Detect) Urine Cocaine Screen Not Detected (Not Detect) U Marijuana (THC) Screen Not Detected (Not Detect) Ethyl Alcohol < 10 mg/dL Radiology Impression Discussion of test interpretation with radiology: I have reviewed the radiologist's reading. Independent Historian Clinical information obtained from an independent historian. History obtained from or confirmed by: Other External Record Review External record reviewed: Inpatient record, Office record, Outpatient record, Prior outpatient labs, Prior outpatient radiology, Primary care record and Outside ED record Tests considered The following testing was considered but not selected: As above Prescription Management I considered prescription management with: Other Chronic Conditions Patient?s care impacted by: Other ( bipolar depression) Social Determinants Patient?s care significantly limited by Social Determinants of Health including: Problems related to primary support group and Other Social Determinant of Health Discharge Plan Discharge Clinical Impression: Depression, Noncompliance with medications Patient Disposition: Still a Patient Prescriptions: No Action donepezil 5 mg Tablet 5 mg PO BEDTIME 30 Days Qty: 30 0RF carbamazepine 200 mg Tablet Extended Release 12 Hr 200 mg PO BID 30 Days Qty: 60 0RF lurasidone [Latuda] 40 mg Tablet 40 mg PO DAILY@1230 30 Days Qty: 30 0RF liothyronine [Cytomel] 25 mcg Tablet 12.5 mcg PO BID@0800,1800 30 Days Qty: 30 0RF furosemide 20 mg tablet 20 mg PO DAILY 30 Days Qty: 30 0RF Print Language: Bhutanese
[2024-07-07 13:41] LABS: MANUAL DIFF FLAG NO
[2024-07-07 13:43] LABS: Basophils Percent Auto 0.4 % (0-2); Eosinophils Percent Auto 0.5 % (0-4); Hematocrit 40.1 % (37.0-47.0); Imm Gran Abs Auto 0.02 X10*3/uL (0.00-0.03); Imm Gran Pct Auto 0.3 % (0.0-0.4); Lymphocytes Absolute Auto 1.7 X10*3/uL (1.2-4.9); Lymphocytes Percent Auto 22.4 % (20-40); Mean Corpuscular HGB Conc 32.4 g/dl (31.0-35.0); Mean Corpuscular Hemoglobin 28.9 pg (27.0-33.0); Mean Corpuscular Volume 89.1 fL (80.0-98.0); Mean Platelet Volume 9.4 fL (9.4-12.3); Monocytes Absolute Auto 0.4 X10*3/uL (0.1-1.2); Monocytes Percent Auto 5.4 % (2-11); Neutrophils Absolute Auto 5.3 x10*3/uL (2.0-8.3); Platelet Count 347 X10*3/uL (160-400); Red Cell Distribution Width 14.6 % (11.0-16.0); White Blood Count 7.5 X10*3/uL (4.8-10.8)
[2024-07-07 13:44] LABS: Appearance Urine Cloudy; Color Urine Yellow; Glucose Urine UA Negative (Negative); Leukocyte Esterase Urine Moderate (2+) (Negative); Nitrite Urine Negative (Negative); Specific Gravity - Urine 1.025 (1.005-1.025); UMIC TRIGGER UACC YES; Urine Blood Negative (Negative); Urine Ketones Trace mg/dL (Negative); Urine Protein Trace mg/dL (Neg-Trace)
[2024-07-07 13:53] LABS: Amphetamine Screen Urine Not Detected (Not Detect); Barbiturates, Urine Not Detected (Not Detect); Benzodiazepines Screen Urine Not Detected (Not Detect); Buprenorphine Scr Not Detected (Not Detect); Cannabinoid Screen Urine Not Detected (Not Detect); Cocaine Screen Urine Not Detected (Not Detect); Fentanyl, urine Not Detected (Not Detect); Methadone Screen, Urine Not Detected (Not Detect); Opiate Screen Urine Not Detected (Not Detect); Oxycodone Screen Urine Not Detected (Not Detect); Phencyclidine Screen Urine Not Detected (Not Detect)
[2024-07-07 13:57] LABS: Acetaminophen LAB < 3 mcg/mL (<30); Alanine Aminotransferase 16 U/L (0-31); Albumin Level 3.9 g/dL (3.5-5.0); Alkaline Phosphatase 88 U/L (39-117); Anion Gap 11 (12-20); Aspartate Amino Transferase 23 U/L (5-31); Bilirubin Total 0.5 mg/dL (0.0-1.0); Blood Urea Nitrogen 20 mg/dL (9-16); Carbon Dioxide 24 mmol/L (22-29); Chloride 110 mmol/L (96-108); Creatinine Clr Calc Pharmacy 49.7; Estimated Glomerular Filt Rate > 60; Ethanol < 10 mg/dL; Glucose Random 102 mg/dL (60-115); Potassium 3.6 mmol/L (3.3-5.1); Salicylate < 5.0 mg/dL (15-30); Sodium 141 mmol/L (135-145); Total Protein 7.1 g/dL (6.5-8.0)
[2024-07-07 13:57] LABS: Bacteria Urine 2+ (None Seen); RBC Urine 0-2 /HPF (0-2); UACC Culture Trigger YES; WBC Urine 21-50 /HPF (0-5)
--- OUTSIDE RECORDS SUMMARY | 2024-07-07 15:34 | XMS_ITS ---
[facility] Address [address] [place] [address] Care Team Providers Care Black Pickler Name Role Phone Ahsan Carrero MD Primary Care Provider Alex Gabriel Unavailable [phone] Allergies Allergen (clinical drug ingredient) Drug/Non Drug Allergy documented on EMR Reaction Allergy Type Onset Date Status sulfamethoxazole / trimethoprim Bactrim rash Drug Allergy Active REASON FOR VISIT Painful nail(s) aggrevated by shoes causing difficulty standing/walking, Wart(s) Medications Medication SIG (Take, Route, Frequency, Duration) Notes Start Date End Date Status lamoTRIgine 100 MG 1 tablet Orally Once a day for 30 day(s) Not-Taking Ibuprofen 100 MG Orally once a day Not-Taking Multi Vitamin Daily Not-Taking Calcium Not-Taking Biotin Not-Taking OLANZapine 10 MG as directed Orally O nce a day Not-Taking buPROPion HCl 300 Orally No t-Taking ARIPiprazole 10 MG 1 tablet Orally Once a day for 30 day(s) Not-Taking Atorvastatin Calcium 10 MG Oral for 90 Not-Taking Vraylar 1.5 MG as directed Orally O nce a day Not-Taking Social History Tobacco Use: Social History Observation Description Date Details (start date - stop date) Never Smoker NA - NA Tobacco Use/Smoking Question Answer Notes Are you a: nonsmoker Additional Findings: Tobacco Non-User Current no n-smoker Alcohol Screen Question Answer Notes Did you have a drink containing alcohol in the p ast year? No Points 0 Interpretation Negative Tobacco use other than smoking: Question Answer Notes Are you an other tobacco user? No Vital Signs Blood pressure systolic 120 mm Hg 04/05/20 24 Blood pressure diastolic 70 mm Hg 024 Height 5ft 3.5in in 04/05/2024 Weight 155 lbs 04/05/2024 BMI 27.02 kg/m2 04/05/2024 Procedures Procedure Date Ordered Date Performed Result Body Sit e 76502-APTEKIE NAIL, 6 OR MORE 04/05/2024 N/A 42653-Jhxs Destruction, 1-14 04/05/2024 N/A Encounters Encounter Location Date Provider Diagnosis [facility] [place] [address] [place] [address] 04/05/2024 Alexjose miguel IreneUna Tinea unguium B35.1 ; Pain in right toe(s) M79.674 ; Pain in left toe(s) M79.675 ; Right foot pain M79.671 ; Plantar wart B07.0 and Left foot pain M79.672 Assessments Encounter Date Diagnosis (ICD Code) Assessment Notes Treatment Notes Treatment Clinical Notes Section Notes 04/05/2024 Tinea unguium (ICD-10 - B35.1) 04/05/2024 Pain in right toe(s) (ICD-10 - M79.674) 04/05/2024 Pain in left toe(s) (ICD-10 - M79.675) 04/05/2024 Right foot pain (ICD-10 - M79.671) 04/05/2024 Plantar wart (ICD-10 - B07.0) 04/05/2024 Left foot pain (ICD-10 - M79.672) Plan Of Treatment Pending Test Test Name Order Date [id number]-SYYXYCC NAIL, 6 OR MORE 04/05/2024 12815-Crox Destruction, 1-14 04/05/2024 Next Appt Details Follow Up: prn, Reason: Procedure Notes * Category Sub-Category Detail Notes Wart Treatment Procedure Verruca, as desc ribed in exam, were debrided to pin-point bleeding margins with sterile 15 surgical blade, silver nitrate chemocautery applied, recomm. immune-boosting meds such as zinc, recomm. follow up with topical chemosurgical agents, Pt defers any other forms of tx - 52342 Debride Nail 6-10 Nail debridement Performance o f this nail treatment by a nonprofessional would put this patients foot and overall health at risk. Therefore, debridement to affected nail(s), as described in exam, was performed extensively to reduce/remove overall nail length, girth, thickness, subungual debris, and necrotic tissue, by manual and/or electrical means through the use of a nail nipper and/or dremel-type lens shaper grinder, to a more viable healthy nail plate or bed tissue 6-10 nails in total. Silver nitrate was used for any petechial bleeding as necessary. Definitive antifungal treatment options, both pharmaceutical and surgical, have been reviewed and discussed with the patient. The patient solely prefers the use of intermittent/as needed professional debridement services for their nail condition and understands the need for additional periodic treatments to maintain effectiveness in symptomatic relief - 99511 Progress Notes * Marjorie ADEN ADOB: 1955 (68 yo F)Acc No.[id number]:04/05/2024 Progress Note Patient:?Miller ADEN Ganga Provider:?Alex Heart DPM :1955???Age:68 Y???Sex:Female D ate:04/05/2024 Address:[address] [place], [place] [id number] Pcp:Ahsan Carrero MD Subjective: * Chief Complaints: * ???Painful nail(s) aggrevate d by shoes causing difficulty standing/walkingWart(s) * HPI: ???Painful Nails:?Pt States Last PCP Visit:?Date:?10/28/2023 * ROS:?General/Constitutional:?Nausea?denies.?Vomiting?denies.?Hunger Thirst?denies.?Loss appetite?denies.?Chills?denies.?Fatigue?denies.?Fever?denies.?Night Sweats?denies.?Unexplained weight loss?denies.?Unexplained weight gain?denies.?HEENTM:?Dentures?denies.?Dizziness?denies.?Glasses/contacts?denies.?Retinopathy?de nies.?Blurred/double vision?denies.?TMJ?denies.?Discharge/drainage?denies.?Implants?denies.?Sore throat?denies.?Dental implants?denies.?Hard of hearing ?denies.?Difficulty chewing/swallowing/speaking?denies.?Nose bleeds?denies.?Sore mouth?denies.?Respiratory:?On Oxygen?denies.?Pneumonia/pleurisy?denies.?Bronchitis?denies.?Emphysema?denies.?C oughing?denies.?Cough blood?denies.?Shortness of breath?denies.?Wheezing?denies.?Cardiovascular:?Pacemaker?denies.?MVP?denies.?WPW?denies.?CHF?denies.?Heart attack?denies.?Septal defect?denies.?Rapid beat?denies.?Chest pain ?denies.?Atrial Fib.?denies.?Murmur/Palpitations?denies.?Gastrointestinal:?Hemorrhoids?denies.?Stomach/Abdominal pain?denies.?Dark blood stool?denies.?Irritable bowel ?denies.?Constipation?denies.?Diarrhea?denies.?Hematology:?Swelling?denies.?Clots?denies.?Varicose Veins?denies.?Bruising?denies.?Bleeding problem?denies.?Genitourinary:?Blood urine?denies.?Frequent/Painfu/urination/bladder control?denies.?Kidney stones?denies.?Infection (UTI)?denies.?Nephropathy?denies.?sex trans dis (STD)?denies.?Prostate?denies.?Musculoskeletal:?Hammertoes?admits.?Bunions?denies.?Back Pain?denies.?Muscle Cramps/ Resting?denies.?Muscle cramps / walking?denies.?Generalized aches and pains?denies.?Weakness?denies.?Integ.:?Galarza?denies.?Scars?denies.?Corns/calluses?admits.?Ingrown nails?admits.?Painful nails?admits.?Open Sores?denies.?Rashes?denies.?Neurologic:?Difficulty sleeping?denies.?Brain disorder?denies.?Numbness?denies.?Balance trouble?denies.?Confusion?denies.?Fainting/blackouts?denies.?Tingling?denies.?Tr emors?denies.? * Medical History:? * Surgical History:?breast cys t removal 1980 * Hospitalization/Major Diagno stic Procedure:?Patient went to [facility] ER for a rash. 11/28/2012[facility]- positive for covid 03/2020[facility] - Depression 3months 12/2022[facility]- in and out for bipolar depression, [id number] * Family History:?Mother: dece ased, diagnosed with Other specified conditions influencing health status.?Father: , diagnosed with Other specified conditions influencing health status.?Son(s): heart attack, diagnosed with Unspecified heart disease.?2 son(s) . .? * Social History:?Tobacco Use:?Tobacco Use/Smoking?Are you a:?nonsmoker ?Additional Findings: Tobacco Non-User?Current non-smoker ?Tobacco use other than smoking?Are you an other tobacco user??No ???Drugs/Alcohol:?Drugs?Have you used drugs other than those for medical reasons in the past 12 months??No ?Alcohol Screen?Did you have a drink containing alcohol in the past year??No ?Points?0 ?Interpretation?Negative ???Miscellaneous:?Caffeine: yes, frequency:. ?Children: yes, 2. ?Exercise: no. ?Marital status: . 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 * Medications:?Not-Taking/PRNb uPROPion HCl 300 mg Orally Vraylar 1.5 MG Capsule as directed Orally Once a day Atorvastatin Calcium 10 MG Tablet Oral Biotin Calcium Ibuprofen 100 MG Tablet Orally once a day lamoTRIgine 100 MG Tablet 1 tablet Orally Once a day Multi Vitamin Daily ARIPiprazole 10 MG Tablet 1 tablet Orally Once a day OLANZapine 10 MG Tablet as directed Orally Once a day Medication List reviewed and reconciled with the patientNot-Taking/PRN buPROPion HCl 300 mg Orally Not- Taking/PRN Vraylar 1.5 MG Capsule as directed Orally Once a day Not-Taking/PRN Atorvastatin Calcium 10 MG Tablet Oral Not-Taking/PRN Biotin Not-Taking/PRN Calcium Not-Taking/PRN Ibuprofen 100 MG Tablet Orally once a day Not-Taking/PRN lamoTRIgine 100 MG Tablet 1 tablet Orally Once a day Not-Taking/PRN Multi Vitamin Daily Not-Taking/PRN ARIPiprazole 10 MG Tablet 1 tablet Orally Once a day Not- Taking/PRN OLANZapine 10 MG Tablet as directed Orally Once a day Medication List reviewed and reconciled with the patient * Allergies:?Bactrim: rash - S harshal Effectsyes[Allergies Verified] Objective: * Vitals:?Ht:5ft 3.5in, Wt:155 , BMI:27.02, Shoe size:8.5, BP:120/70mm Hg, Ht-cm: 161.29 cm, Wt-k.31 kg. * Examination: ???Nails: ?NAILS are:?Elongated, overgrown, dystrophic, lytic, greater than 3mm thick, discolored and friable with crumbly malodorous subungual debris, with pain on palpation, TA, T2, T3, T4, T5, T6, T7, T8, T9.?Dermatologic: ?VERRUCA:?STILL, Reveals Multiple (2), round, raised, flat-topped, petechial bleeding papule(s), with cauliflower appearance and interruption of skin lines, with pain to lateral compression, and size estimated at 4-5mm diameter, plantar Forefoot, B/L.? Assessment: * Assessment: 1.?Tinea unguium - B35.1 (Pr imary)???2.?Pain in right toe(s) - M79.674???3.?Pain in left toe(s) - M79.675???4.?Right foot pain - M79.671???5.?Plantar wart - B07.0???Specify :B/L???6.?Left foot pain - M79.672??? Plan: * Treatment: 2.?Plantar wart?Procedure: 84273-Jjxr Destruction, 1-14 * Procedures:?Debride Nail 6-10:?Nail debridement?Performance of this nail treatment by a nonprofessional would put this patients foot and overall health at risk. Therefore, debridement to affected nail(s), as described in exam, was performed extensively to reduce/remove overall nail length, girth, thickness, subungual debris, and necrotic tissue, by manual and/or electrical means through the use of a nail nipper and/or dremel-type lens shaper grinder, to a more viable healthy nail plate or bed tissue 6-10 nails in total. Silver nitrate was used for any petechial bleeding as necessary. Definitive antifungal treatment options, both pharmaceutical and surgical, have been reviewed and discussed with the patient. The patient solely prefers the use of intermittent/as needed professional debridement services for their nail condition and understands the need for additional periodic treatments to maintain effectiveness in symptomatic relief - 34750.?Wart Treatment:?Procedure?Verruca, as described in exam, were debrided to pin-point bleeding margins with sterile 15 surgical blade, silver nitrate chemocautery applied, recomm. immune-boosting meds such as zinc, recomm. follow up with topical chemosurgical agents, Pt defers any other forms of tx - 00883.? * Procedure Codes:?87809 DEBRI DE NAIL, 6 OR MORE, Modifiers: XS 58162 Wart Destruction, 1-14, Modifiers: XS * Follow Up:?prn * Images: * Sign off status: Completed true * Provider:Denzel Heart DPM Date:?2023 Generated for Rachel colmenares/Melecio/Dillon on:?07/07/2024 03:34 PM EST History and Physical Notes * HPI (History of Present Illness) Category Sub-Category Detail Notes Category Not es Painful Nails Pt States Last PCP Visit: Date:: 10/28/2023 Examination Category Sub-Category Detail Notes Category Not es Dermatologic VERRUCA: STILL, Reveals M ultiple (2), round, raised, flat-topped, petechial bleeding papule(s), with cauliflower appearance and interruption of skin lines, with pain to lateral compression, and size estimated at 4-5mm diameter, plantar Forefoot, B/L Nails NAILS are: Elongated, overg rown, dystrophic, lytic, greater than 3mm thick, discolored and friable with crumbly malodorous subungual debris, with pain on palpation, TA, T2, T3, T4, T5, T6, T7, T8, T9
--- OUTSIDE RECORDS SUMMARY | 2024-07-07 15:34 | XMS_ITS | Clinical Summary ---
Author Organization [facility] Facility Address [address] [address] Care Team Providers Care Rat Culturist Name Role Phone Unavailable Primary Care Provider Unavailabl e Social History Tobacco Use Types Packs/Day Years Used Date Smoking Tobacco: Never Assessed Comments Unknown Sex and Gender Information Value Date Recorded Sex Assigned at Not on file Legal Sex Female 9:23 AM EDT Gender Identity Not on file Sexual Orientation Not on file Plan of Treatment Health Maintenance Due Date Last Done Comments Breast Cancer Screening 1955 Colorectal Cancer Screening: Annual FOBT 2002 Colorectal Cancer Screening: Colonoscopy 2002 Colorectal Cancer Screening: Sigmoidoscopy 2002 Pneumococcal Vaccine: 65+ Ye ars (1 of 1 - PCV) 2018 Influenza Vaccine (#1) 2024 Hepatitis B Vaccine Aged Out No longe r eligible based on patient's age to complete this topic
--- OUTSIDE RECORDS SUMMARY | 2024-07-07 15:34 | XMS_ITS ---
Author Organization Ahsan Carrero MD Address [address] [place], [place] [id number] Care Team Providers Care Sports Writer Name Role Phone Ahsan Carrero Primary Care Provider [phone] Allergies Allergen (clinical drug ingredient) Drug/Non Drug Allergy documented on EMR Reaction Allergy Type Onset Date Status sulfamethoxazole / trimethoprim Bactrim DS rash Drug Allergy Active REASON FOR VISIT PH-TCM D/[place] [facility] [place], Patient went back to live with her Medications Medication SIG (Take, Route, Frequency, Duration) Notes Start Date End Date Status Cytomel 25 MCG 0.5 tablet on an emp ty stomach Orally twice a day Active carBAMazepine 200 MG 1 tablet Orally Twi ce a day for 30 day(s) Active Donepezil HCl 5 MG 1 tablet at bedtime Orally Once a day Active Furosemide 20 MG 1 tablet Orally Once a day for 30 day(s) Active Latuda 40 MG 1 tablet in the evening with food Orally Once a day for 30 day(s) Active Tylenol 325 MG 1 tablet as needed Orally every 4 hrs Active Atorvastatin Calcium 10 MG 1 tablet Oral ly Once a day for 90 days 01/24/2022 Not-Taking Divalproex Sodium ER 500 MG 2 tablet Orally Once a day Not-Taking Divalproex Sodium 250 MG 1 tablet Orally Once a day for 30 day(s) Not-Taking Cariprazine HCl 1.5 MG 1 capsule Orally Once a day for 30 day(s) Not-Taking Vital Signs Blood pressure systolic 152 mm Hg 04/12/20 24 Blood pressure diastolic 80 mm Hg 024 Height 65.25 in 04/12/2024 Weight 156 lbs 04/12/2024 BMI 25.76 kg/m2 04/12/2024 weight is down 3 pounds [facility] e 03-19-23 Encounters Encounter Location Date Provider Diagnosis Ahsan Carrero MD [address] [place], [place] [phone] 04/12/2024 Ahsan Carrero Acquired hypothyroidism E03.9 and Elevated BUN R79.9 Assessments Encounter Date Diagnosis (ICD Code) Assessment Notes Treatment Notes Treatment Clinical Notes Section Notes 04/12/2024 Acquired hypothyroidism (ICD-10 - E03.9) pending labs, order given to patient to have done at [facility] 04/12/2024 Elevated BUN (ICD-10 - R79.9) pending labs, will continue to monitor Plan Of Treatment Treatment Notes Assessment Notes Acquired hypothyroidism pending labs, or nancy given to patient to have done at [facility] Elevated BUN pending labs, will c ontinue to monitor Pending Test Test Name Order Date Blood Urea Nitrogen 04/12/2024 Creatinine 04/12/2024 TSH reflex Free T4 04/12/2024 Next Appt Details Follow Up: 2 Months, Reason: Progress Notes * Marjorie ADEN ADOB: 1955 (68 yo F)Acc No.[id number]:04/12/2024 Patient:?Miller Aden Provider:?Ahsan Carrero MD :1955???Age:68 Y???Sex:Female D ate:04/12/2024 Address:[address] [place] [address] [place], [place] Subjective: * Chief Complaints: * ???PH-TCM D/C [place] [facility] atient went back to live with her * HPI: ???Symptom(s):? patient is a 68 yo female here for transitional care management visit, discharged from [facility] [place] 04/04, after severeal months in house stay for depression. tsh is low and t4 is low. * ROS:?General/Constitutional:?Denies?Chills.?Denies?Fatigue.?Denies?Fever.?Denies?Headache.?ENT:?Patient denies?decreased sense of smell , any loss of taste , sore throat.?Denies?Sore throat.?Respiratory:?Denies?Cough.?Denies?Shortness of breath at rest.?Denies?Shortness of breath with exertion.?Gastrointestinal:?Denies?Diarrhea.?Denies?Nausea.?Musculoskeletal:?Patient denies?muscle aches.?Peripheral Vascular:?Patient denies?red and blue toes.? * Medical History:? * Surgical History:? * Hospitalization/Major Diagno stic Procedure:? * Medications:?TakingFurosemid e 20 MG Tablet 1 tablet Orally Once a dayLatuda 40 MG Tablet 1 tablet in the evening with food Orally Once a dayCytomel 25 MCG Tablet 0.5 tablet on an empty stomach Orally twice a daycarBAMazepine 200 MG Tablet 1 tablet Orally Twice a dayDonepezil HCl 5 MG Tablet 1 tablet at bedtime Orally Once a dayTylenol 325 MG Tablet 1 tablet as needed Orally every 4 hrsTaking Furosemide 20 MG Tablet 1 tablet Orally Once a dayTaking Latuda 40 MG Tablet 1 tablet in the evening with food Orally Once a dayTaking Cytomel 25 MCG Tablet 0.5 tablet on an empty stomach Orally twice a dayTaking carBAMazepine 200 MG Tablet 1 tablet Orally Twice a dayTaking Donepezil HCl 5 MG Tablet 1 tablet at bedtime Orally Once a dayTaking Tylenol 325 MG Tablet 1 tablet as needed Orally every 4 hrsNot- Taking/PRNAtorvastatin Calcium 10 MG Tablet 1 tablet Orally Once a dayDivalproex Sodium ER 500 MG Tablet Extended Release 24 Hour 2 tablet Orally Once a dayDivalproex Sodium 250 MG Tablet Delayed Release 1 tablet Orally Once a dayCariprazine HCl 1.5 MG Capsule 1 capsule Orally Once a dayNot-Taking/PRN Atorvastatin Calcium 10 MG Tablet 1 tablet Orally Once a dayNot-Taking/PRN Divalproex Sodium ER 500 MG Tablet Extended Release 24 Hour 2 tablet Orally Once a dayNot-Taking/PRN Divalproex Sodium 250 MG Tablet Delayed Release 1 tablet Orally Once a dayNot-Taking/PRN Cariprazine HCl 1.5 MG Capsule 1 capsule Orally Once a dayDiscontinuedValproic Acid 250 MG/5ML Solution 3 mL Orally Three times a daytraZODone HCl 50 MG Tablet 1 tablet at bedtime as needed Orally Once a dayMelatonin 3 MG Tablet 3tablet at bedtime as needed Orally Once a day hsclonazePAM 1 MG Tablet 2 tablet Once a day hsVraylar 3 MG Capsule 2 capsule Orally Once a day hsbuPROPion HCl ER (XL) 150 MG Tablet Extended Release 24 Hour 1 tablet in the morning Orally Once a dayMedication List reviewed and reconciled with the patientDiscontinued Valproic Acid 250 MG/5ML Solution 3 mL Orally Three times a dayDiscontinued traZODone HCl 50 MG Tablet 1 tablet at bedtime as needed Orally Once a dayDiscontinued Melatonin 3 MG Tablet 3tablet at bedtime as needed Orally Once a day hsDiscontinued clonazePAM 1 MG Tablet 2 tablet Once a day hsDiscontinued Vraylar 3 MG Capsule 2 capsule Orally Once a day hsDiscontinued buPROPion HCl ER (XL) 150 MG Tablet Extended Release 24 Hour 1 tablet in the morning Orally Once a dayMedication List reviewed and reconciled with the patient * Allergies:?Bactrim DS: juan es[Allergies Verified] Objective: * Vitals:?Ht: 65.25, Wt:156, B AR:25.76, BP:152/80, Repeat BP:130/92 weight is down 3 pounds since 03-19-23. * Examination: ???General Examination: ?GENERAL APPEARANCE:?well developed, well nourished.?HEAD:?normocephalic.?SKIN:?good turgor.?HEART:?regular rate and rhythm , no murmurs, rubs, gallops.?LUNGS:?no wheezes, rales, rhonchi , good air movement , clear to auscultation bilaterally.? Assessment: * Assessment: 1.?Acquired hypothyroidism - E03.9 (Primary)?2.?Elevated BUN - R79.9? Plan: * Treatment: 2.?Elevated BUN?LAB: Blood Urea Nitrogen ?LAB: Creatinine Notes: pending labs, will continue to monitor?? * Procedure Codes:? * Follow Up:?2 Months * * Sign off status: Completed true * Provider:?Ahsan Carrero MD Date:?1 06/13/2023 Generated for Rachel colmenares/Melecio/eTransmitting on:?07/07/2024 03:33 PM EST History and Physical Notes * HPI (History of Present Illness) Category Sub-Category Detail Notes Category Not es Symptom(s) patient is a 68 yo female here for transitional care management visit, discharged [place] [facility] [place], after severeal months in house stay for depression. tsh is low and t4 is low. Examination Category Sub-Category Detail Notes Category Not es General Examination GENERAL APPEARANCE: well developed , well nourished HEAD: normocephalic HEART: regular rate and rhy thm , no murmurs, rubs, gallops LUNGS: no wheezes, rales, r honchi , good air movement , clear to auscultation bilaterally SKIN: good turgor
--- OUTSIDE RECORDS SUMMARY | 2024-07-07 15:34 | XMS_ITS ---
Author Organization [facility] Address [address] [place] [address] Care Team Providers Care Manager Ui Name Role Phone Ahsan Carrero MD Primary Care Provider Alex Gabriel [phone] REASON FOR VISIT same day appt Encounters Encounter Location Date Provider Diagnosis [facility] [address] [place] [address] 01/07/2024 Alex Heart Plan Of Treatment No Information Progress Notes * Marjorie ADEN ADOB: 1955 (68 yo F)Acc No.[id number]:01/07/2024 Patient:?Miller Aden :1955???Age:68 Y???Sex:Female Address:[address] [place] [address], [address] * true * Date:? Generated for Rachel colmenares/Melecio/eTransmitting on:?07/07/2024 03:34 PM EST
--- OUTSIDE RECORDS SUMMARY | 2024-07-07 15:34 | XMS_ITS ---
Author Organization Ahsan Carrero MD Address [address] [place] [phone] Care Team Providers Care Surgical Tech Name Role Phone Alise Ahsan Primary Care Provider REASON FOR VISIT bun creatine, TSH Encounters Encounter Location Date Provider Diagnosis Ahsan Carrero MD [address] [place] [phone] 06/06/2024 Ahsan Carrero Plan Of Treatment No Information Progress Notes * Marjorie ADEN ADOB: 1955 (68 yo F)Acc No.[id number]:06/06/2024 Progress Note Patient:?Miller ADEN Provider:?Ahsan Carrero MD :1955???Age:68 Y???Sex:Female D ate:06/06/2024 Address:[address] [place], [place] [id number] Subjective: * Chief Complaints: * ???1. bun creatine, TSH. * Medical History:? Objective: * Vitals:? Assessment: Plan: * Treatment: * * The named appointment provid er may or may not be the originator of this progress note, and it is not deemed complete until electronically signed by the appointment provider. Sign off status: Pending * Provider:?Ahsan Carrero MD Date:?0 06/06/2024 Generated for Rachel colmenares/Melecio/Dillon on:?07/07/2024 03:34 PM EST
--- OUTSIDE RECORDS SUMMARY | 2024-07-07 15:35 | XMS_ITS ---
Author Organization Ahsan Carrero MD Address [address] [place] [phone] Care Team Providers Care Fitness Centre Manager Name Role Phone Alise Ahsan Primary Care Provider Allergies Allergen (clinical drug ingredient) Drug/Non Drug Allergy documented on EMR Reaction Allergy Type Onset Date Status sulfamethoxazole / trimethoprim Bactrim DS rash Drug Allergy Active REASON FOR VISIT 2 month Encounters Encounter Location Date Provider Diagnosis Ahsan Carrero MD [address] [place] [phone] 06/13/2024 Ahsan Carrero Plan Of Treatment No Information Progress Notes * Marjorie ADEN ADOB: 1955 (68 yo F)Acc No.[id number]:06/13/2024 Progress Notes Patient:?Miller ADEN Provider:?Ahsan Carrero MD :1955???Age:68 Y???Sex:Female D ate:06/13/2024 Address:[address] [place] [address] Subjective: * Chief Complaints: * ???1. 2 month. * ROS:?General/Constitutional:?Denies?Chills.?Denies?Fatigue.?Denies?Fever.?Denies?Headache.?ENT:?Denies?Sore throat.?Respiratory:?Denies?Cough.?Denies?Shortness of breath at rest.?Denies?Shortness of breath with exertion.?Gastrointestinal:?Denies?Diarrhea.?Denies?Nausea.? * Medical History:?colonoscopy 2008. good for 10 years; CX appt w/Dr. Narayanan (letter sent 02/01/20), Family Nurse Practitioner exam 12/2014 (Dr. Chamberlain), Olanzapine is zyprexa, Colocoscopy due 2025. * Allergies:?Bactrim DS: rash. Objective: * Vitals:? Assessment: Plan: * Treatment: * * The named appointment provid er may or may not be the originator of this progress note, and it is not deemed complete until electronically signed by the appointment provider. Sign off status: Pending * Provider:?Ahsan Carrero MD Date:?0 06/13/2024 Generated for Rachel colmenares/Melecio/Joanitting on:?07/07/2024 03:34 PM EST
--- OUTSIDE RECORDS SUMMARY | 2024-07-07 15:35 | XMS_ITS | Patient Health Record ---
Author Organization [facility] Address [address] [place] [phone] Care Team Providers Care Junior Paralegal Name Role Phone Alise OCONNOR, Ahsan Primary Care Provider José Antonio Linda [phone] Allergies Allergen (clinical drug ingredient) Drug/Non Drug Allergy documented on EMR Reaction Allergy Type Onset Date Status sulfacetamide Sulfacetamide Unknown Drug Allergy Active Reason For Referral No Information Medications Medication SIG (Take, Route, Frequency, Duration) Notes Start Date End Date Status Centrum Adults - as directed Orally Active buPROPion HCl ER (XL) 300 MG TAKE 1 TABLET BY MOUTH EVERY MORNING Oral for 90 Active lamoTRIgine 100 MG TAKE 1 TABLET BY DEIDRA TH EVERYDAY AT BEDTIME Oral for 90 Active Immunizations Vaccine Route Administration Date Status Comme nts Influenza Unknown 10/24/2020 Refused Social History Tobacco Use: Social History Observation Description Date Details (start date - stop date) Former Smoker NA - NA Tobacco Use/Smoking Question Answer Notes Patient is a former smoker How long has it been since you last smoked? > 10 years Alcohol Screen Question Answer Notes Did you have a drink containing alcohol in the p ast year? No Points 0 Interpretation Negative Section Notes: Nonsmoker; no sig alcohol Problems Problem Type SNOMED Code ICD Code Onset Dates Problem Status W/U Status Risk Notes Problem 791026480 Encounter for screening for malignant neoplasm of colon (Z12.11) Active confirmed Problem 257293228329063 Pre-procedural examination (Z01.818) Active confirmed Problem Diverticular disease of colon (068209329) Diverticular disease of colon (K57.30) Active confirmed Plan Of Treatment Future Test Test Name Order Date COLONOSCOPY 10/24/2020 Insurance Providers Payer Name Payer Address Payer Phone Subscriber Number Group Number Insured Name Patient Relationship to Insured Coverage Start Date Coverage End Date MEDICARE OF [place] [address] [place] [address] [id number] ELISEO MURPHY Self - patient is the insured [employer] ATT[employer] CLAIMS [address] [place] [address] [id number] ELISEO MURPHY Self - patient is the insured Medical (General) History Medical History History ICD Code Denies MD,DM,CVA,Lung disease,renal dise ase Negative screening colonoscopy in 08/2007 Depression Surgical History Surgery Date(Month/Year)
--- OUTSIDE RECORDS SUMMARY | 2024-07-07 15:35 | XMS_ITS ---
Author Organization [facility] Address [address] [facility] [place] [address] Care Team Providers Care Truant Officer Name Role Phone Ahsan Carrero MD Primary Care Provider Alex Gabriel Unavailable [phone] Allergies Allergen (clinical drug ingredient) Drug/Non Drug Allergy documented on EMR Reaction Allergy Type Onset Date Status sulfamethoxazole / trimethoprim Bactrim rash Drug Allergy Active REASON FOR VISIT Painful nail(s) aggrevated by shoes causing difficulty standing/walking, Wart(s) Medications Medication SIG (Take, Route, Frequency, Duration) Notes Start Date End Date Status Ibuprofen 100 MG Orally once a day Not-Taking lamoTRIgine 100 MG 1 tablet Orally Once a day for 30 day(s) Not-Taking Biotin Not-Taking Calcium Not-Taking Multi Vitamin Daily Not-Taking Vraylar 1.5 MG as directed Orally O nce a day Not-Taking Atorvastatin Calcium 10 MG Oral for 90 Not-Taking Eucerin . as directed External ly bid for 30 days 05/31/2013 Not-Taking buPROPion HCl 300 Orally No t-Taking OLANZapine 10 MG as directed Orally O nce a day Not-Taking ARIPiprazole 10 MG 1 tablet Orally Once a day for 30 day(s) Not-Taking Social History Tobacco Use: Social History [...] Are you an other tobacco user? No Problems Problem Type SNOMED Code ICD Code Onset Dates Problem Status W/U Status Risk Notes Problem 391141902 Tinea unguium (B35.1) Active confirmed Vital Signs Height 5ft 3.5in in 01/07/2024 Weight 155 lbs 01/07/2024 BMI 27.02 kg/m2 01/07/2024 Procedures Procedure Date Ordered Date Performed Result Body Sit e 47178-JLGMYVM NAIL, 6 OR MORE 01/07/2024 N/A 75807-Hatd Destruction, 1-14 01/07/2024 N/A Encounters Encounter Location Date Provider Diagnosis [facility] [address] [place] [phone] 01/07/2024 Alex Heart Tinea unguium B35.1 ; Pain in right toe(s) M79.674 ; Pain in left toe(s) M79.675 ; Right foot pain M79.671 ; Plantar wart B07.0 and Left foot pain M79.672 Assessments Encounter Date Diagnosis (ICD Code) Assessment Notes Treatment Notes Treatment Clinical Notes Section Notes 01/07/2024 Tinea unguium (ICD-10 - B35.1) 01/07/2024 Pain in right toe(s) (ICD-10 - M79.674) 01/07/2024 Pain in left toe(s) (ICD-10 - M79.675) 01/07/2024 Right foot pain (ICD-10 - M79.671) 01/07/2024 Plantar wart (ICD-10 - B07.0) 01/07/2024 Left foot pain (ICD-10 - M79.672) Plan Of Treatment Pending Test Test Name Order Date 67918-XDSFIYS NAIL, 6 OR MORE 01/07/2024 58141-Vzzy Destruction, 1-01/07/2024 Next Appt Details Follow Up: prn, Reason: Procedure Notes * Category Sub-Category Detail Notes Wart Treatment Procedure Verrucae were de brided to pin-point bleeding margins with sterile 15 surgical blade, silver nitrate chemocautery applied, recomm. immune-boosting meds such as zinc, recomm. follow up with topical chemosurgical agents, Pt defers any other forms of tx - 60640 Debride Nail 6-10 Nail debridement Performance o f this nail treatment by a nonprofessional would put this patients foot and overall health at risk. Therefore, nail debridement was performed extensively to reduce/remove overall nail length, girth, thickness, subungual debris, and necrotic tissue, by manual and/or electrical means through the use of a nail nipper and/or dremel-type grinder operator automatic, to a more viable healthy nail plate or bed tissue 6-10. Silver nitrate used for any petechial bleeding as necessary. Definitive antifungal treatment options have been reviewed and discussed with the patient. The patient chooses, no pharmaceutical tx - 41170 Progress Notes * Marjorie ADEN ADOB: 1955 (68 yo F)Acc No.[id number]:01/07/2024 Progress Note Patient:?StantonbelindaMiller Provider:?Alex Heart DPM :1955???Age:68 Y???Sex:Female D ate:01/07/2024 Address:[address] [place], [place] [phone] Pcp:Ahsan Carrero MD Subjective: * Chief Complaints: [...] * Hospitalization/Major Diagno stic Procedure:?Patient went to [facility] [place] for a [place]. 11/28/2012[facility] for [place] 03/2020[facility] [place] [place] Depression 3months 12/2022[facility] [place] in and out for bipolar depression, 7088-1189 * Family History:?Mother: dece ased, diagnosed with [...] ?Interpretation?Negative ???Miscellaneous:?Caffeine: yes, frequency:. ?Children: yes, 2. ?no Exercise. ?Marital status: . 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 * Medications:?Not-Taking/PRNb uPROPion HCl 300 mg Orally Vraylar 1.5 MG Capsule as directed Orally Once a dayAtorvastatin Calcium 10 MG Tablet Oral Biotin Calcium Ibuprofen 100 MG Tablet Orally once a daylamoTRIgine 100 MG Tablet 1 tablet Orally Once a dayMulti Vitamin Daily ARIPiprazole 10 MG Tablet 1 tablet Orally Once a dayOLANZapine 10 MG Tablet as directed Orally Once a dayEucerin . Cream as directed Externally bidMedication List reviewed and reconciled with the patientNot- Taking/PRN buPROPion HCl 300 mg Orally Not-Taking/PRN Vraylar 1.5 MG Capsule as directed Orally Once a dayNot-Taking/PRN Atorvastatin Calcium 10 MG Tablet Oral Not-Taking/PRN Biotin Not-Taking/PRN Calcium Not-Taking/PRN Ibuprofen 100 MG Tablet Orally once a dayNot-Taking/PRN lamoTRIgine 100 MG Tablet 1 tablet Orally Once a dayNot- Taking/PRN Multi Vitamin Daily Not-Taking/PRN ARIPiprazole 10 MG Tablet 1 tablet Orally Once a dayNot-Taking/PRN OLANZapine 10 MG Tablet as directed Orally Once a dayNot- Taking/PRN Eucerin . Cream as directed Externally bidMedication List reviewed and reconciled with the patient * Allergies:?Bactrim: rash - S harshal Effectsyes[Allergies Verified] Objective: * Vitals:?Ht: 5ft 3.5in, Wt:15 5, BMI:27.02, Shoe size: 8.5, Ht-cm: 161.29 cm, Wt- k.31 kg. * Examination: ???Nails: ?NAILS are:?Elongated, overgrown, [...] B/L.? Assessment: * Assessment: 1.?Tinea unguium - B35.1?2.? Pain in right toe(s) - M79.674?3.?Pain in left toe(s) - M79.675?4.?Right foot pain - M79.671?5.?Plantar wart - B07.0, B/L?6.?Left foot pain - M79.672? Plan: * Treatment: 2.?Plantar wart?Procedure: 11187-Rhvz Destruction, 1-14 * Procedures:?Debride Nail 6-10:?Nail debridement?Performance of this nail treatment by a nonprofessional would put this patients foot and overall health at risk. Therefore, nail debridement was performed extensively to reduce/remove overall nail length, girth, thickness, subungual debris, and necrotic tissue, by manual and/or electrical means through the use of a nail nipper and/or dremel-type grinder operator automatic, to a more viable healthy nail plate or bed tissue 6-10. Silver nitrate used for any petechial bleeding as necessary. Definitive antifungal treatment options have been reviewed and discussed with the patient. The patient chooses, no pharmaceutical tx - 98460.?Wart Treatment:?Procedure?Verrucae were debrided to pin-point bleeding margins with sterile 15 surgical blade, silver nitrate chemocautery applied, recomm. immune-boosting meds such as zinc, recomm. follow up with topical chemosurgical agents, Pt defers any other forms of tx - 29585.? * Procedure Codes:?95965 DEBRI DE NAIL, 6 OR MORE, Modifiers: XS 69632 Wart Destruction, -14, Modifiers: XS * Follow Up:?prn * Images: * Sign off status: Completed true * Provider:?Alex Heart DPM Date:?2023 Generated for Rachel colmenares/Melecio/eTransmitting on:?07/07/2024 03:35 PM EST History and Physical Notes * [...]
[2024-07-08 05:19] VITALS: BP 123/71; PULSE 64; RESP 16; TEMP 36.2; O2SAT 100
--- NOTE | 2024-07-08 06:39 | PC.NURSE ---
Patient slept through the night, no distress observed/reported, disposition per care team is section 12 inpatient bed search, med rec completed/pending provider's approval, no behavior and safety concerns, will continue to monitor
[2024-07-08 07:44] VITALS: BP 116/75; PULSE 64; RESP 14; TEMP 36.4; O2SAT 98
--- NOTE | 2024-07-08 07:48 | ECG_ITS ---
Test Reason : iploc Blood Pressure : */* mmHG Vent. Rate : 72 BPM Atrial Rate : 72 BPM P-R Int : 166 ms QRS Dur : 98 ms QT Int : 414 ms P-R-T Axes : 68 -2 36 degrees QTcB Int : 453 ms Normal sinus rhythm Incomplete right bundle branch block Borderline ECG When compared with ECG of 18-Mar-2024 08:27, No significant change was found Referred By: Genoveva Baker Electronically Signed By: ALCON GONZALES MD
--- NOTE | 2024-07-08 09:29 | PHA.MEDREC ---
Pharmacy Consult ? Medication Reconciliation Pharmacy has reviewed the medication reconciliation completed by nursing, claims matched.
[2024-07-08] MEDS: Furosemide 20 MG TABLET PO (11:06)
[2024-07-08] MEDS: carBAMazepine ER 200 MG TAB.ER.12H PO ×2 (11:06→22:05)
[2024-07-08 11:20] VITALS: BP 125/82; PULSE 71; RESP 14; TEMP 36.6; O2SAT 98
--- NOTE | 2024-07-08 11:34 | PC.NURSE ---
pt states that she has not taken her medications in two months. med rec was completed based on this information on the previous shift. This RN reached out to Laurita MENDEZ to get OK to admin medications. Per VANESSA, OK to give. Medicated per JUL< BP and rest of vitals taken at that time.
[2024-07-08] MEDS: Lurasidone HCl 40 MG TABLET PO (12:43)
--- NOTE | 2024-07-08 13:37 | PHA.MEDREC ---
Addendum entered by Maxine Hartley RPh 07/08/24 13:42: REVIEWED BY [facility] Original Note: Pharmacy Consult ? Medication Reconciliation Pharmacy has reviewed the medication reconciliation done by nursing. Utilized claims to confirm med list.
[2024-07-08 15:50] VITALS: BP 145/71; PULSE 83; RESP 16; TEMP 36.7; O2SAT 100
[2024-07-08 16:52] LABS: Alanine Aminotransferase 13 U/L (0-31); Alkaline Phosphatase 92 U/L (39-117); Anion Gap 11 (12-20); Aspartate Amino Transferase 22 U/L (5-31); Bilirubin Total 0.3 mg/dL (0.0-1.0); Blood Urea Nitrogen 22 mg/dL (9-16); Calcium 9.2 mg/dL (8.4-10.2); Carbon Dioxide 28 mmol/L (22-29); Chloride 106 mmol/L (96-108); Creatinine Clr Calc Pharmacy 51.5; Estimated Glomerular Filt Rate > 60; Glucose Random 113 mg/dL (60-115); Potassium 3.7 mmol/L (3.3-5.1); Sodium 141 mmol/L (135-145); Total Protein 7.5 g/dL (6.5-8.0)
[2024-07-08 17:07] VITALS: BMI 25.6
[2024-07-08] MEDS: Liothyronine Sodium 25 MCG TABLET 12.5 MCG PO (17:21)
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
[2024-07-08 20:00] VITALS: BP 127/61; PULSE 76; RESP 16; TEMP 36.9; O2SAT 99
[2024-07-08] MEDS: Donepezil HCl 5 MG TABLET PO (22:05)
[2024-07-08] MEDS: traZODone HCL 50 MG TABLET PO (22:06)
[2024-07-09 07:05] VITALS: BP 104/60; PULSE 77; RESP 14; TEMP 36.4; O2SAT 94
[2024-07-09 08:56] VITALS: BP 104/60
[2024-07-09] MEDS: Liothyronine Sodium 25 MCG TABLET 12.5 MCG PO ×2 (08:56→17:48)
[2024-07-09] MEDS: carBAMazepine ER 200 MG TAB.ER.12H PO ×2 (08:56→21:33)
[2024-07-09] MEDS: Furosemide 20 MG TABLET PO (08:56)
[2024-07-09 10:52] LABS: Cholesterol 184 mg/dL (<200); HDL Cholesterol 47 mg/dL (>40); LDL Cholesterol Calculated 110 mg/dL (<100); Triglycerides 138 mg/dL (<150)
[2024-07-09] MEDS: Lurasidone HCl 40 MG TABLET PO (12:47)
[2024-07-09 20:00] VITALS: BP 120/66; PULSE 76; RESP 16; TEMP 36.3; O2SAT 100
[2024-07-09] MEDS: Donepezil HCl 5 MG TABLET PO (21:33)
[2024-07-10 08:00] VITALS: BP 123/68; PULSE 78; TEMP 36.1; O2SAT 98
[2024-07-10] MEDS: Liothyronine Sodium 25 MCG TABLET 12.5 MCG PO ×2 (08:32→17:33)
[2024-07-10 08:33] VITALS: BP 123/68
[2024-07-10] MEDS: Furosemide 20 MG TABLET PO (08:33)
[2024-07-10] MEDS: carBAMazepine ER 200 MG TAB.ER.12H PO ×2 (08:34→21:10)
--- NOTE | 2024-07-10 11:37 | P.PNPSI_ITS ---
Subjective Subjective Date of Service: 07/09/24 Reason For Visit: Crisis Subjective Notes: Conditional Voluntary Interim History: Pt reports feeling tired She reports she has been depressed. She denies SI/HI. She denies VH/AH. Appears at times internally preoccupied. No behavioral concerns. Diagnostics Vital Signs (24Hr): Vital Signs - 24 hr 07/09/24 20:00 07/10/24 08:00 07/10/24 08:33 Temperature 97.4 F 96.9 F Pulse Rate 76 78 Respiratory Rate 16 Blood Pressure 120/66 123/68 123/68 Pulse Oximetry 100 98 Oxygen Delivery Method Room Air Room Air BMI result Body Mass Index 25.6 Labs 07/07/24 13:35 07/08/24 16:19 Labs: Laboratory Results - last 48 hr 07/08/24 07/09/24 16:19 09:37 Sodium 141 Potassium 3.7 Chloride 106 Carbon Dioxide 28 Anion Gap 11 L BUN 22 H Creatinine 0.84 Estim Creat Clear Calc 51.5 Estimated GFR > 60 Random Glucose 113 Calcium 9.2 Total Bilirubin 0.3 AST 22 ALT 13 Alkaline Phosphatase 92 Total Protein 7.5 Albumin 4.0 Triglycerides 138 Cholesterol 184 LDL Cholesterol, Calc 110 H HDL Cholesterol 47 Medications Medications Current Medications Acetaminophen (Acetaminophen 325 Mg Tablet) 650 mg PO Q6H PRN PRN Reason: Headache/Pain, Scale 1-10 Al Hydroxide/Mg Hydroxide (Magnesium Hydrox/Alum Hydrox 30 Ml Oral.Susp) 30 ml PO Q6H PRN PRN Reason: Heartburn/Nausea Carbamazepine (Carbamazepine Er 200 Mg Tab.Er.12h) 200 mg PO BID [facility] Last Admin: 07/10/24 08:34 Dose: 200 mg Donepezil HCl (Donepezil Hcl 5 Mg Tablet) 5 mg PO BEDTIME [facility] Last Admin: 07/09/24 21:33 Dose: 5 mg Furosemide (Furosemide 20 Mg Tablet) 20 mg PO DAILY [facility]; Protocol Last Admin: 07/10/24 08:33 Dose: 20 mg Hydroxyzine HCl (Hydroxyzine Hcl 25 Mg Tablet) 25 mg PO Q6H PRN PRN Reason: mild anxiety Liothyronine Sodium (Liothyronine Sodium 25 Mcg Tablet) 12.5 mcg PO BID@0800,1800 [facility] Last Admin: 07/10/24 08:32 Dose: 12.5 mcg Lurasidone HCl (Lurasidone Hcl 40 Mg Tablet) 40 mg PO DAILY@1230 [facility] Last Admin: 07/09/24 12:47 Dose: 40 mg Magnesium Hydroxide (Milk Of Magnesia 30 Ml Oral.Susp) 30 ml PO DAILY PRN PRN Reason: Constipation Nicotine (Nicotine 21 Mg Patch.Td24) 21 mg TRANSDERMA DAILY [facility] Last Admin: 07/10/24 08:35 Dose: Not Given Nicotine Polacrilex (Nicotine Polacrilex 2 Mg Gum) 4 mg BUCCAL Q2H PRN PRN Reason: Nicotine Cravings Trazodone HCl (Trazodone Hcl 50 Mg Tablet) 50 mg PO BEDTIME MRX1 PRN PRN Reason: Insomnia Last Admin: 07/08/24 22:06 Dose: 50 mg Allergies Allergies Allergy/AdvReac Type Severity Reaction Status Date / Time No Known Allergies Allergy Verified 07/07/24 12:40 Assessment & Plan Assessment & Plan (1) Bipolar depression: Status: Acute Code(s): F31.9 - Bipolar disorder, unspecified Assessment and Plan: consider schizoaffective (2) Cognitive impairment: Status: Acute Code(s): R41.89 - Other symptoms and signs involving cognitive functions and awareness Plan 07/09 continues tx Reason for continued inpatient stay Substantial Risk for: inability to function Time Spent With Patient Time: Total time managing care of this patient today ____ minutes.
--- NOTE | 2024-07-10 11:40 | HO.PSYCHPN ---
Subjective Subjective Date of Service: 07/10/24 Reason For Visit: Crisis Interim History: Pt reports feeling tired She reports she has been depressed. She denies SI/HI. She denies VH/AH. Appears at times internally preoccupied. No behavioral concerns. Review of Systems Review of Systems Yes all other systems are reviewed and are negative Constitutional: Reports as per HPI Mental Status Exam Mental Status Exam Narrative: Appearance: wearing casual clothing, good hygiene, in NAD behavior: cooperative Psychomotor: no agitation or retardation noted Speech: clear, normal rate/rhythm/volume, spontaneous TP: linear TC: feeling tired Mood: good, bit tired Affect: bright, non labile SI: denies HI: denies VH/AH: appears internally preoccupued Delusions: no overt Insight/judgment: poor x 2. alert, oriented x 3. Diagnostics Vital Signs (24Hr): Vital Signs - 24 hr 07/09/24 20:00 07/10/24 08:00 07/10/24 08:33 Temperature 97.4 F 96.9 F Pulse Rate 76 78 Respiratory Rate 16 Blood Pressure 120/66 123/68 123/68 Pulse Oximetry 100 98 Oxygen Delivery Method Room Air Room Air BMI result Body Mass Index 25.6 Labs 07/07/24 13:35 07/08/24 16:19 Labs: Laboratory Results - last 48 hr 07/08/24 07/09/24 16:19 09:37 Sodium 141 Potassium 3.7 Chloride 106 Carbon Dioxide 28 Anion Gap 11 L BUN 22 H Creatinine 0.84 Estim Creat Clear Calc 51.5 Estimated GFR > 60 Random Glucose 113 Calcium 9.2 Total Bilirubin 0.3 AST 22 ALT 13 Alkaline Phosphatase 92 Total Protein 7.5 Albumin 4.0 Triglycerides 138 Cholesterol 184 LDL Cholesterol, Calc 110 H HDL Cholesterol 47 Medications Medications Current Medications Acetaminophen (Acetaminophen 325 Mg Tablet) 650 mg PO Q6H PRN PRN Reason: Headache/Pain, Scale 1-10 Al Hydroxide/Mg Hydroxide (Magnesium Hydrox/Alum Hydrox 30 Ml Oral.Susp) 30 ml PO Q6H PRN PRN Reason: Heartburn/Nausea Carbamazepine (Carbamazepine Er 200 Mg Tab.Er.12h) 200 mg PO BID [facility] Last Admin: 07/10/24 08:34 Dose: 200 mg Donepezil HCl (Donepezil Hcl 5 Mg Tablet) 5 mg PO BEDTIME [facility] Last Admin: 07/09/24 21:33 Dose: 5 mg Furosemide (Furosemide 20 Mg Tablet) 20 mg PO DAILY [facility]; Protocol Last Admin: 07/10/24 08:33 Dose: 20 mg Hydroxyzine HCl (Hydroxyzine Hcl 25 Mg Tablet) 25 mg PO Q6H PRN PRN Reason: mild anxiety Liothyronine Sodium (Liothyronine Sodium 25 Mcg Tablet) 12.5 mcg PO BID@0800,1800 [facility] Last Admin: 07/10/24 08:32 Dose: 12.5 mcg Lurasidone HCl (Lurasidone Hcl 40 Mg Tablet) 40 mg PO DAILY@1230 [facility] Last Admin: 07/09/24 12:47 Dose: 40 mg Magnesium Hydroxide (Milk Of Magnesia 30 Ml Oral.Susp) 30 ml PO DAILY PRN PRN Reason: Constipation Nicotine (Nicotine 21 Mg Patch.Td24) 21 mg TRANSDERMA DAILY [facility] Last Admin: 07/10/24 08:35 Dose: Not Given Nicotine Polacrilex (Nicotine Polacrilex 2 Mg Gum) 4 mg BUCCAL Q2H PRN PRN Reason: Nicotine Cravings Trazodone HCl (Trazodone Hcl 50 Mg Tablet) 50 mg PO BEDTIME MRX1 PRN PRN Reason: Insomnia Last Admin: 07/08/24 22:06 Dose: 50 mg Allergies Allergies Allergy/AdvReac Type Severity Reaction Status Date / Time No Known Allergies Allergy Verified 07/07/24 12:40 Assessment & Plan Assessment & Plan (1) Bipolar depression: Status: Acute Code(s): F31.9 - Bipolar disorder, unspecified Assessment and Plan: consider schizoaffective (2) Cognitive impairment: Status: Acute Code(s): R41.89 - Other symptoms and signs involving cognitive functions and awareness Plan 07/09 continues tx 07/10 continue tx. Reason for continued inpatient stay Substantial Risk for: inability to function Time Spent With Patient Time: Total time managing care of this patient today ____ minutes.
[2024-07-10] MEDS: Lurasidone HCl 40 MG TABLET PO (12:52)
[2024-07-10 20:00] VITALS: BP 129/79; PULSE 73; RESP 18; TEMP 36.3; O2SAT 95
[2024-07-10] MEDS: Donepezil HCl 5 MG TABLET PO (21:10)
[2024-07-11 07:59] VITALS: BP 114/72; PULSE 87; RESP 16; TEMP 36.4; O2SAT 97
[2024-07-11] MEDS: Liothyronine Sodium 25 MCG TABLET 12.5 MCG PO ×2 (08:05→17:40)
[2024-07-11] MEDS: Furosemide 20 MG TABLET PO (08:05)
[2024-07-11] MEDS: carBAMazepine ER 200 MG TAB.ER.12H PO ×2 (08:06→21:06)
--- NOTE | 2024-07-11 10:07 | HO.PSYCHPN ---
Subjective Subjective Date of Service: 07/11/24 Reason For Visit: Crisis Subjective Notes: Conditional Voluntary Interim History: Active on unit. attending some groups. blunted affect. Patient reports feeling tired from restarting my medications ; she reports feeling depressed d/t her brother passing away last week and was unable to attend services d/t sleeping a lot . slowed speech. denies SI/HI/VH/AH. Medication Compliance: Yes Side effects from medications: No Attending Groups: Yes Mental Status Exam Mental Status Exam Narrative: Pt is alert and oriented; behavior is cooperative, calm; dressed in hospital attire; mood is described as tired and depressed ; eye contact appropriate; Speech is normal rate, low volume, not pressured; thought process is organized, slowed thinking; Thought content is on tx; denies SI/HI/VH/AH. Diagnostics Vital Signs (24Hr): Vital Signs - 24 hr 07/10/24 20:00 07/11/24 07:59 Temperature 97.4 F 97.5 F Pulse Rate 73 87 Respiratory Rate 18 16 Blood Pressure 129/79 114/72 Pulse Oximetry 95 97 Oxygen Delivery Method Room Air Room Air BMI result Body Mass Index 25.6 Labs 07/07/24 13:35 07/08/24 16:19 Labs: Laboratory Results - last 48 hr 07/09/24 09:37 Triglycerides 138 Cholesterol 184 LDL Cholesterol, Calc 110 H HDL Cholesterol 47 Medications Medications Current Medications Acetaminophen (Acetaminophen 325 Mg Tablet) 650 mg PO Q6H PRN PRN Reason: Headache/Pain, Scale 1-10 Al Hydroxide/Mg Hydroxide (Magnesium Hydrox/Alum Hydrox 30 Ml Oral.Susp) 30 ml PO Q6H PRN PRN Reason: Heartburn/Nausea Carbamazepine (Carbamazepine Er 200 Mg Tab.Er.12h) 200 mg PO BID [facility] Last Admin: 07/11/24 08:06 Dose: 200 mg Donepezil HCl (Donepezil Hcl 5 Mg Tablet) 5 mg PO BEDTIME [facility] Last Admin: 07/10/24 21:10 Dose: 5 mg Furosemide (Furosemide 20 Mg Tablet) 20 mg PO DAILY [facility]; Protocol Last Admin: 07/11/24 08:05 Dose: 20 mg Hydroxyzine HCl (Hydroxyzine Hcl 25 Mg Tablet) 25 mg PO Q6H PRN PRN Reason: mild anxiety Liothyronine Sodium (Liothyronine Sodium 25 Mcg Tablet) 12.5 mcg PO BID@0800,1800 [facility] Last Admin: 07/11/24 08:05 Dose: 12.5 mcg Lurasidone HCl (Lurasidone Hcl 40 Mg Tablet) 40 mg PO DAILY@1230 [facility] Last Admin: 07/10/24 12:52 Dose: 40 mg Magnesium Hydroxide (Milk Of Magnesia 30 Ml Oral.Susp) 30 ml PO DAILY PRN PRN Reason: Constipation Nicotine Polacrilex (Nicotine Polacrilex 2 Mg Gum) 4 mg BUCCAL Q2H PRN PRN Reason: Nicotine Cravings Trazodone HCl (Trazodone Hcl 50 Mg Tablet) 50 mg PO BEDTIME MRX1 PRN PRN Reason: Insomnia Last Admin: 07/08/24 22:06 Dose: 50 mg Allergies Allergies Allergy/AdvReac Type Severity Reaction Status Date / Time No Known Allergies Allergy Verified 07/07/24 12:40 Assessment & Plan Assessment & Plan (1) Bipolar depression: Status: Acute Code(s): F31.9 - Bipolar disorder, unspecified Assessment and Plan: consider schizoaffective (2) Cognitive impairment: Status: Acute Code(s): R41.89 - Other symptoms and signs involving cognitive functions and awareness Plan 07/09 continues tx 07/10 continue tx. 07/11: Active on unit. attending some groups. blunted affect. Patient reports feeling tired from restarting my medications ; she reports feeling depressed d/t her brother passing away last week and was unable to attend services d/t sleeping a lot . slowed speech. denies SI/HI/VH/AH. continue current tx plan. Patient educated on: diagnosis and medication risk/benefits Reason for continued inpatient stay Substantial Risk for: med/psych decompensation Time Spent With Patient Time: Total time managing care of this patient today _20___ minutes.
[2024-07-11] MEDS: Lurasidone HCl 40 MG TABLET PO (12:31)
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
[2024-07-11 20:00] VITALS: BP 127/60; PULSE 83; RESP 16; TEMP 36.4; O2SAT 99
[2024-07-11] MEDS: Donepezil HCl 5 MG TABLET PO (21:06)
[2024-07-12 08:20] VITALS: BP 123/65; PULSE 86; RESP 14; TEMP 36.4; O2SAT 100
[2024-07-12 08:29] VITALS: BP 123/65
[2024-07-12] MEDS: Liothyronine Sodium 25 MCG TABLET 12.5 MCG PO ×2 (08:29→17:17)
[2024-07-12] MEDS: carBAMazepine ER 200 MG TAB.ER.12H PO (08:29)
[2024-07-12] MEDS: Furosemide 20 MG TABLET PO (08:29)
--- NOTE | 2024-07-12 08:59 | P.PNPSI_ITS ---
Subjective Subjective Date of Service: 07/12/24 Reason For Visit: Crisis Subjective Notes: Conditional Voluntary Interim History: Active on unit. attending some groups. blunted affect. slowed speech. appears thought blocking at times. Patient continues to report feeling depressed and tired ; tegretol changed to 400mg PO bedtime. denies SI/HI/VH/AH. Medication Compliance: Yes Side effects from medications: No Attending Groups: Yes Mental Status Exam Mental Status Exam Narrative: Pt is alert and oriented; behavior is cooperative, calm; dressed in hospital attire; mood is described as tired and depressed ; eye contact appropriate; Speech is slow rate, normal volume, not pressured; thought process is organized, slowed thinking; Thought content is on tx; denies SI/HI/VH/AH. Diagnostics Vital Signs (24Hr): Vital Signs - 24 hr 07/11/24 20:00 07/12/24 08:29 Temperature 97.5 F Pulse Rate 83 Respiratory Rate 16 Blood Pressure 127/60 123/65 Pulse Oximetry 99 Oxygen Delivery Method Room Air BMI result Body Mass Index 25.6 Labs 07/07/24 13:35 07/08/24 16:19 Medications Medications Current Medications Acetaminophen (Acetaminophen 325 Mg Tablet) 650 mg PO Q6H PRN PRN Reason: Headache/Pain, Scale 1-10 Al Hydroxide/Mg Hydroxide (Magnesium Hydrox/Alum Hydrox 30 Ml Oral.Susp) 30 ml PO Q6H PRN PRN Reason: Heartburn/Nausea Carbamazepine (Carbamazepine Er 200 Mg Tab.Er.12h) 200 mg PO BID [facility] Last Admin: 07/12/24 08:29 Dose: 200 mg Donepezil HCl (Donepezil Hcl 5 Mg Tablet) 5 mg PO BEDTIME [facility] Last Admin: 07/11/24 21:06 Dose: 5 mg Furosemide (Furosemide 20 Mg Tablet) 20 mg PO DAILY [facility]; Protocol Last Admin: 07/12/24 08:29 Dose: 20 mg Hydroxyzine HCl (Hydroxyzine Hcl 25 Mg Tablet) 25 mg PO Q6H PRN PRN Reason: mild anxiety Liothyronine Sodium (Liothyronine Sodium 25 Mcg Tablet) 12.5 mcg PO BID@0800,1800 [facility] Last Admin: 07/12/24 08:29 Dose: 12.5 mcg Lurasidone HCl (Lurasidone Hcl 40 Mg Tablet) 40 mg PO DAILY@1230 [facility] Last Admin: 07/11/24 12:31 Dose: 40 mg Magnesium Hydroxide (Milk Of Magnesia 30 Ml Oral.Susp) 30 ml PO DAILY PRN PRN Reason: Constipation Nicotine Polacrilex (Nicotine Polacrilex 2 Mg Gum) 4 mg BUCCAL Q2H PRN PRN Reason: Nicotine Cravings Trazodone HCl (Trazodone Hcl 50 Mg Tablet) 50 mg PO BEDTIME MRX1 PRN PRN Reason: Insomnia Last Admin: 07/08/24 22:06 Dose: 50 mg Allergies Allergies Allergy/AdvReac Type Severity Reaction Status Date / Time No Known Allergies Allergy Verified 07/07/24 12:40 Assessment & Plan Assessment & Plan (1) Bipolar depression: Status: Acute Code(s): F31.9 - Bipolar disorder, unspecified Assessment and Plan: consider schizoaffective (2) Cognitive impairment: Status: Acute Code(s): R41.89 - Other symptoms and signs involving cognitive functions and awareness Plan 07/09 continues tx 07/10 continue tx. 07/11: Active on unit. attending some groups. blunted affect. Patient reports feeling tired from restarting my medications ; she reports feeling depressed d/t her brother passing away last week and was unable to attend services d/t sleeping a lot . slowed speech. denies SI/HI/VH/AH. continue current tx plan. 07/12: Active on unit. attending some groups. blunted affect. slowed speech. appears thought blocking at times. Patient continues to report feeling depressed and tired ; tegretol changed to 400mg PO bedtime. denies SI/HI/VH/AH. Patient educated on: diagnosis and medication risk/benefits Reason for continued inpatient stay Substantial Risk for: med/psych decompensation Time Spent With Patient Time: Total time managing care of this patient today __20__ minutes.
[2024-07-12] MEDS: Lurasidone HCl 40 MG TABLET PO (12:25)
[2024-07-12 20:00] VITALS: BP 110/60; PULSE 86; RESP 16; TEMP 36.6; O2SAT 97
[2024-07-12] MEDS: carBAMazepine ER 200 MG TAB.ER.12H 400 MG PO (21:29)
[2024-07-12] MEDS: Donepezil HCl 5 MG TABLET PO (21:29)
[2024-07-13 07:35] VITALS: BP 123/79; PULSE 83; RESP 16; TEMP 36.4; O2SAT 100
[2024-07-13] MEDS: Furosemide 20 MG TABLET PO (08:01)
[2024-07-13] MEDS: Liothyronine Sodium 25 MCG TABLET 12.5 MCG PO ×2 (08:18→17:27)
[2024-07-13 08:50] LABS: TSH reflex Free T4 0.18 uIU/mL (0.32-4.0)
--- NOTE | 2024-07-13 09:03 | P.PNPSI_ITS ---
Subjective Subjective Date of Service: 07/13/24 Reason For Visit: Crisis Subjective Notes: Conditional Voluntary Interim History: blunted affect. Patient continues to report feeling depressed and tired ; patient stated, I keep thinking about my brothers which is making me depressed . denies SI/HI/VH/AH. denies any side effects from restarting medications. Medication Compliance: Yes Side effects from medications: No Attending Groups: Yes Mental Status Exam Mental Status Exam Narrative: Pt is alert and oriented; behavior is cooperative, calm; dressed in hospital attire; mood is described as tired and depressed ; eye contact appropriate; Speech is slow rate, normal volume, not pressured; thought process is organized, slowed thinking; Thought content is on tx; denies SI/HI/VH/AH. Diagnostics Vital Signs (24Hr): Vital Signs - 24 hr 07/12/24 20:00 07/13/24 07:35 Temperature 97.8 F 97.6 F Pulse Rate 86 83 Respiratory Rate 16 16 Blood Pressure 110/60 123/79 Pulse Oximetry 97 100 Oxygen Delivery Method Room Air Room Air BMI result Body Mass Index 25.6 Labs 07/07/24 13:35 07/08/24 16:19 Labs: Laboratory Results - last 48 hr 07/13/24 07:58 TSH 0.18 L Medications Medications Current Medications Acetaminophen (Acetaminophen 325 Mg Tablet) 650 mg PO Q6H PRN PRN Reason: Headache/Pain, Scale 1-10 Al Hydroxide/Mg Hydroxide (Magnesium Hydrox/Alum Hydrox 30 Ml Oral.Susp) 30 ml PO Q6H PRN PRN Reason: Heartburn/Nausea Carbamazepine (Carbamazepine Er 200 Mg Tab.Er.12h) 400 mg PO BEDTIME [facility] Last Admin: 07/12/24 21:29 Dose: 400 mg Donepezil HCl (Donepezil Hcl 5 Mg Tablet) 5 mg PO BEDTIME [facility] Last Admin: 07/12/24 21:29 Dose: 5 mg Furosemide (Furosemide 20 Mg Tablet) 20 mg PO DAILY [facility]; Protocol Last Admin: 07/13/24 08:01 Dose: 20 mg Hydroxyzine HCl (Hydroxyzine Hcl 25 Mg Tablet) 25 mg PO Q6H PRN PRN Reason: mild anxiety Liothyronine Sodium (Liothyronine Sodium 25 Mcg Tablet) 12.5 mcg PO BID@0800,1800 [facility] Last Admin: 07/13/24 08:18 Dose: 12.5 mcg Lurasidone HCl (Lurasidone Hcl 40 Mg Tablet) 40 mg PO DAILY@1230 [facility] Last Admin: 07/12/24 12:25 Dose: 40 mg Magnesium Hydroxide (Milk Of Magnesia 30 Ml Oral.Susp) 30 ml PO DAILY PRN PRN Reason: Constipation Nicotine Polacrilex (Nicotine Polacrilex 2 Mg Gum) 4 mg BUCCAL Q2H PRN PRN Reason: Nicotine Cravings Trazodone HCl (Trazodone Hcl 50 Mg Tablet) 50 mg PO BEDTIME MRX1 PRN PRN Reason: Insomnia Last Admin: 07/08/24 22:06 Dose: 50 mg Allergies Allergies Allergy/AdvReac Type Severity Reaction Status Date / Time No Known Allergies Allergy Verified 07/07/24 12:40 Assessment & Plan Assessment & Plan (1) Bipolar depression: Status: Acute Code(s): F31.9 - Bipolar disorder, unspecified Assessment and Plan: consider schizoaffective (2) Cognitive impairment: Status: Acute Code(s): R41.89 - Other symptoms and signs involving cognitive functions and awareness Plan 07/09 continues tx 07/10 continue tx. 07/11: Active on unit. attending some groups. blunted affect. Patient reports feeling tired from restarting my medications ; she reports feeling depressed d/t her brother passing away last week and was unable to attend services d/t sleeping a lot . slowed speech. denies SI/HI/VH/AH. continue current tx plan. 07/12: Active on unit. attending some groups. blunted affect. slowed speech. appears thought blocking at times. Patient continues to report feeling depressed and tired ; tegretol changed to 400mg PO bedtime. denies SI/HI/VH/AH. 07/13: blunted affect. Patient continues to report feeling depressed and tired ; patient stated, I keep thinking about my brothers which is making me depressed . denies SI/HI/VH/AH. denies any side effects from restarting medications. continue current tx plan. Patient educated on: diagnosis and medication risk/benefits Reason for continued inpatient stay Substantial Risk for: med/psych decompensation Time Spent With Patient Time: Total time managing care of this patient today _20___ minutes.
[2024-07-13 09:22] LABS: Free T4 (Free Thyroxine) 0.84 ng/dL (0.71-1.85)
[2024-07-13] MEDS: Lurasidone HCl 40 MG TABLET PO (12:17)
[2024-07-13 19:54] VITALS: BP 132/63; PULSE 85; RESP 16; TEMP 36.4; O2SAT 99
[2024-07-13] MEDS: carBAMazepine ER 200 MG TAB.ER.12H 400 MG PO (20:25)
[2024-07-13] MEDS: Donepezil HCl 5 MG TABLET PO (20:25)
[2024-07-14 07:00] VITALS: BMI 26.3
[2024-07-14 07:40] VITALS: BP 120/72; PULSE 80; RESP 12; TEMP 36.5; O2SAT 99
[2024-07-14 08:25] VITALS: BP 120/72
[2024-07-14] MEDS: Liothyronine Sodium 25 MCG TABLET 12.5 MCG PO ×2 (08:25→18:25)
[2024-07-14] MEDS: Furosemide 20 MG TABLET PO (08:25)
--- NOTE | 2024-07-14 10:13 | HO.PSYCHPN ---
Subjective Subjective Date of Service: 07/14/24 Reason For Visit: Crisis Subjective Notes: Conditional Voluntary Interim History: Active on unit. attending groups. medication compliant. Patient continues to report feeling depressed and tired ; patient stated, I'm trying to go to the groups . denies SI/HI/VH/AH. per nursing, slept 7 hours. keeping to self. Medication Compliance: Yes Side effects from medications: No Attending Groups: Yes Mental Status Exam Mental Status Exam Narrative: Pt is alert and oriented; behavior is cooperative, calm; dressed in hospital attire; mood is described as tired and depressed ; eye contact appropriate; Speech is slow rate, normal volume, not pressured; thought process is organized; Thought content is on tx; denies SI/HI/VH/AH. Diagnostics Vital Signs (24Hr): Vital Signs - 24 hr 07/13/24 19:54 07/14/24 07:40 07/14/24 08:25 Temperature 97.6 F 97.7 F Pulse Rate 85 80 Respiratory Rate 16 12 Blood Pressure 132/63 120/72 120/72 Pulse Oximetry 99 99 Oxygen Delivery Method Room Air Room Air BMI result Body Mass Index 25.6 Labs 07/07/24 13:35 07/08/24 16:19 Labs: Laboratory Results - last 48 hr 07/13/24 07:58 TSH 0.18 L Free T4 0.84 Medications Medications Current Medications Acetaminophen (Acetaminophen 325 Mg Tablet) 650 mg PO Q6H PRN PRN Reason: Headache/Pain, Scale 1-10 Al Hydroxide/Mg Hydroxide (Magnesium Hydrox/Alum Hydrox 30 Ml Oral.Susp) 30 ml PO Q6H PRN PRN Reason: Heartburn/Nausea Carbamazepine (Carbamazepine Er 200 Mg Tab.Er.12h) 400 mg PO BEDTIME [facility] Last Admin: 07/13/24 20:25 Dose: 400 mg Donepezil HCl (Donepezil Hcl 5 Mg Tablet) 5 mg PO BEDTIME [facility] Last Admin: 07/13/24 20:25 Dose: 5 mg Furosemide (Furosemide 20 Mg Tablet) 20 mg PO DAILY [facility]; Protocol Last Admin: 07/14/24 08:25 Dose: 20 mg Hydroxyzine HCl (Hydroxyzine Hcl 25 Mg Tablet) 25 mg PO Q6H PRN PRN Reason: mild anxiety Liothyronine Sodium (Liothyronine Sodium 25 Mcg Tablet) 12.5 mcg PO BID@0800,1800 [facility] Last Admin: 07/14/24 08:25 Dose: 12.5 mcg Lurasidone HCl (Lurasidone Hcl 40 Mg Tablet) 40 mg PO DAILY@1230 [facility] Last Admin: 07/13/24 12:17 Dose: 40 mg Magnesium Hydroxide (Milk Of Magnesia 30 Ml Oral.Susp) 30 ml PO DAILY PRN PRN Reason: Constipation Nicotine Polacrilex (Nicotine Polacrilex 2 Mg Gum) 4 mg BUCCAL Q2H PRN PRN Reason: Nicotine Cravings Trazodone HCl (Trazodone Hcl 50 Mg Tablet) 50 mg PO BEDTIME MRX1 PRN PRN Reason: Insomnia Last Admin: 07/08/24 22:06 Dose: 50 mg Allergies Allergies Allergy/AdvReac Type Severity Reaction Status Date / Time No Known Allergies Allergy Verified 07/07/24 12:40 Assessment & Plan Assessment & Plan (1) Bipolar depression: Status: Acute Code(s): F31.9 - Bipolar disorder, unspecified Assessment and Plan: consider schizoaffective (2) Cognitive impairment: Status: Acute Code(s): R41.89 - Other symptoms and signs involving cognitive functions and awareness Plan 07/09 continues tx 07/10 continue tx. 07/11: Active on unit. attending some groups. blunted affect. Patient reports feeling tired from restarting my medications ; she reports feeling depressed d/t her brother passing away last week and was unable to attend services d/t sleeping a lot . slowed speech. denies SI/HI/VH/AH. continue current tx plan. 07/12: Active on unit. attending some groups. blunted affect. slowed speech. appears thought blocking at times. Patient continues to report feeling depressed and tired ; tegretol changed to 400mg PO bedtime. denies SI/HI/VH/AH. 07/13: blunted affect. Patient continues to report feeling depressed and tired ; patient stated, I keep thinking about my brothers which is making me depressed . denies SI/HI/VH/AH. denies any side effects from restarting medications. continue current tx plan. 07/14: Active on unit. attending groups. medication compliant. Patient continues to report feeling depressed and tired ; patient stated, I'm trying to go to the groups . denies SI/HI/VH/AH. per nursing, slept 7 hours. keeping to self. Patient educated on: diagnosis, medication risk/benefits and therapeutic strategies Reason for continued inpatient stay Substantial Risk for: med/psych decompensation Time Spent With Patient Time: Total time managing care of this patient today _15___ minutes.
[2024-07-14] MEDS: Lurasidone HCl 40 MG TABLET PO (12:41)
[2024-07-14 20:00] VITALS: BP 92/54; PULSE 85; RESP 16; TEMP 36.3; O2SAT 96
[2024-07-14] MEDS: Donepezil HCl 5 MG TABLET PO (20:19)
[2024-07-14] MEDS: carBAMazepine ER 200 MG TAB.ER.12H 400 MG PO (20:19)
[2024-07-15 07:45] VITALS: BP 124/58; PULSE 84; RESP 14; TEMP 36.4; O2SAT 100
[2024-07-15 08:24] VITALS: BP 124/58
[2024-07-15] MEDS: Furosemide 20 MG TABLET PO (08:24)
[2024-07-15] MEDS: Liothyronine Sodium 25 MCG TABLET 12.5 MCG PO ×2 (08:25→17:58)
--- NOTE | 2024-07-15 09:39 | HO.PSYCHPN ---
Subjective Subjective Date of Service: 07/15/24 Reason For Visit: Crisis Subjective Notes: Conditional Voluntary Interim History: Active on unit. attending groups. medication compliant. low energy. Patient reports feeling a little better but still tired ; she plans on visiting with her brother and sister today, which she is looking forward to. denies SI/HI/VH/AH. Medication Compliance: Yes Side effects from medications: No Attending Groups: Yes Mental Status Exam Mental Status Exam Narrative: Pt is alert and oriented; behavior is cooperative, calm; dressed in hospital attire; mood is described as tired and depressed ; eye contact appropriate; Speech is slow rate, normal volume, not pressured; thought process is organized; Thought content is on tx; denies SI/HI/VH/AH. Diagnostics Vital Signs (24Hr): Vital Signs - 24 hr 07/14/24 20:00 07/15/24 07:45 07/15/24 08:24 Temperature 97.3 F 97.6 F Pulse Rate 85 84 Respiratory Rate 16 14 Blood Pressure 92/54 L 124/58 L 124/58 L Pulse Oximetry 96 100 Oxygen Delivery Method Room Air Room Air BMI result Body Mass Index 26.3 Labs 07/07/24 13:35 07/08/24 16:19 Medications Medications Current Medications Acetaminophen (Acetaminophen 325 Mg Tablet) 650 mg PO Q6H PRN PRN Reason: Headache/Pain, Scale 1-10 Al Hydroxide/Mg Hydroxide (Magnesium Hydrox/Alum Hydrox 30 Ml Oral.Susp) 30 ml PO Q6H PRN PRN Reason: Heartburn/Nausea Carbamazepine (Carbamazepine Er 200 Mg Tab.Er.12h) 400 mg PO BEDTIME [facility] Last Admin: 07/14/24 20:19 Dose: 400 mg Donepezil HCl (Donepezil Hcl 5 Mg Tablet) 5 mg PO BEDTIME [facility] Last Admin: 07/14/24 20:19 Dose: 5 mg Furosemide (Furosemide 20 Mg Tablet) 20 mg PO DAILY [facility]; Protocol Last Admin: 07/15/24 08:24 Dose: 20 mg Hydroxyzine HCl (Hydroxyzine Hcl 25 Mg Tablet) 25 mg PO Q6H PRN PRN Reason: mild anxiety Liothyronine Sodium (Liothyronine Sodium 25 Mcg Tablet) 12.5 mcg PO BID@0800,1800 [facility] Last Admin: 07/15/24 08:25 Dose: 12.5 mcg Lurasidone HCl (Lurasidone Hcl 40 Mg Tablet) 40 mg PO DAILY@1230 [facility] Last Admin: 07/14/24 12:41 Dose: 40 mg Magnesium Hydroxide (Milk Of Magnesia 30 Ml Oral.Susp) 30 ml PO DAILY PRN PRN Reason: Constipation Nicotine Polacrilex (Nicotine Polacrilex 2 Mg Gum) 4 mg BUCCAL Q2H PRN PRN Reason: Nicotine Cravings Trazodone HCl (Trazodone Hcl 50 Mg Tablet) 50 mg PO BEDTIME MRX1 PRN PRN Reason: Insomnia Last Admin: 07/08/24 22:06 Dose: 50 mg Allergies Allergies Allergy/AdvReac Type Severity Reaction Status Date / Time No Known Allergies Allergy Verified 07/07/24 12:40 Assessment & Plan Assessment & Plan (1) Bipolar depression: Status: Acute Code(s): F31.9 - Bipolar disorder, unspecified Assessment and Plan: consider schizoaffective (2) Cognitive impairment: Status: Acute Code(s): R41.89 - Other symptoms and signs involving cognitive functions and awareness Plan 07/09 continues tx 07/10 continue tx. 07/11: Active on unit. attending some groups. blunted affect. Patient reports feeling tired from restarting my medications ; she reports feeling depressed d/t her brother passing away last week and was unable to attend services d/t sleeping a lot . slowed speech. denies SI/HI/VH/AH. continue current tx plan. 07/12: Active on unit. attending some groups. blunted affect. slowed speech. appears thought blocking at times. Patient continues to report feeling depressed and tired ; tegretol changed to 400mg PO bedtime. denies SI/HI/VH/AH. 07/13: blunted affect. Patient continues to report feeling depressed and tired ; patient stated, I keep thinking about my brothers which is making me depressed . denies SI/HI/VH/AH. denies any side effects from restarting medications. continue current tx plan. 07/14: Active on unit. attending groups. medication compliant. Patient continues to report feeling depressed and tired ; patient stated, I'm trying to go to the groups . denies SI/HI/VH/AH. per nursing, slept 7 hours. keeping to self. 07/15: Active on unit. attending groups. medication compliant. low energy. Patient reports feeling a little better but still tired ; she plans on visiting with her brother and sister today, which she is looking forward to. denies SI/HI/VH/AH. continue current tx plan Patient educated on: medication risk/benefits and therapeutic strategies Reason for continued inpatient stay Substantial Risk for: med/psych decompensation Time Spent With Patient Time: Total time managing care of this patient today _20___ minutes.
[2024-07-15] MEDS: Lurasidone HCl 40 MG TABLET PO (13:24)
[2024-07-15 20:00] VITALS: BP 101/59; PULSE 94; RESP 18; TEMP 36.7; O2SAT 97
[2024-07-15] MEDS: carBAMazepine ER 200 MG TAB.ER.12H 400 MG PO (20:38)
[2024-07-15] MEDS: Donepezil HCl 5 MG TABLET PO (20:39)
[2024-07-16 08:00] VITALS: BP 131/63; PULSE 76; RESP 16; TEMP 36.4; O2SAT 99
[2024-07-16] MEDS: Furosemide 20 MG TABLET PO (08:32)
[2024-07-16] MEDS: Liothyronine Sodium 25 MCG TABLET 12.5 MCG PO ×2 (08:32→18:00)
--- NOTE | 2024-07-16 09:03 | P.PNPSI_ITS ---
Subjective Subjective Date of Service: 07/16/24 Reason For Visit: Crisis Subjective Notes: Conditional Voluntary Interim History: Active on unit. attending groups. social with room mate. low energy. Pt continues to report depression and grieving brothers loss. showered. Patient reports she is trying to not nap during the day. denies SI/HI/VH/AH. Medication Compliance: Yes Side effects from medications: No Attending Groups: Yes Diagnostics Vital Signs (24Hr): Vital Signs - 24 hr 07/15/24 20:00 07/16/24 08:00 Temperature 98.0 F 97.6 F Pulse Rate 94 76 Respiratory Rate 18 16 Blood Pressure 101/59 L 131/63 Pulse Oximetry 97 99 Oxygen Delivery Method Room Air Room Air BMI result Body Mass Index 26.3 Labs 07/07/24 13:35 07/08/24 16:19 Medications Medications Current Medications Acetaminophen (Acetaminophen 325 Mg Tablet) 650 mg PO Q6H PRN PRN Reason: Headache/Pain, Scale 1-10 Al Hydroxide/Mg Hydroxide (Magnesium Hydrox/Alum Hydrox 30 Ml Oral.Susp) 30 ml PO Q6H PRN PRN Reason: Heartburn/Nausea Carbamazepine (Carbamazepine Er 200 Mg Tab.Er.12h) 400 mg PO BEDTIME [facility] Last Admin: 07/15/24 20:38 Dose: 400 mg Donepezil HCl (Donepezil Hcl 5 Mg Tablet) 5 mg PO BEDTIME [facility] Last Admin: 07/15/24 20:39 Dose: 5 mg Furosemide (Furosemide 20 Mg Tablet) 20 mg PO DAILY [facility]; Protocol Last Admin: 07/16/24 08:32 Dose: 20 mg Hydroxyzine HCl (Hydroxyzine Hcl 25 Mg Tablet) 25 mg PO Q6H PRN PRN Reason: mild anxiety Liothyronine Sodium (Liothyronine Sodium 25 Mcg Tablet) 12.5 mcg PO BID@0800,1800 [facility] Last Admin: 07/16/24 08:32 Dose: 12.5 mcg Lurasidone HCl (Lurasidone Hcl 40 Mg Tablet) 40 mg PO DAILY@1230 [facility] Last Admin: 07/15/24 13:24 Dose: 40 mg Magnesium Hydroxide (Milk Of Magnesia 30 Ml Oral.Susp) 30 ml PO DAILY PRN PRN Reason: Constipation Nicotine Polacrilex (Nicotine Polacrilex 2 Mg Gum) 4 mg BUCCAL Q2H PRN PRN Reason: Nicotine Cravings Trazodone HCl (Trazodone Hcl 50 Mg Tablet) 50 mg PO BEDTIME MRX1 PRN PRN Reason: Insomnia Last Admin: 07/08/24 22:06 Dose: 50 mg Allergies Allergies Allergy/AdvReac Type Severity Reaction Status Date / Time No Known Allergies Allergy Verified 07/07/24 12:40 Assessment & Plan Assessment & Plan (1) Bipolar depression: Status: Acute Code(s): F31.9 - Bipolar disorder, unspecified (2) Cognitive impairment: Status: Acute Code(s): R41.89 - Other symptoms and signs involving cognitive functions and awareness Plan Mrs. Johnston is a 68 year-old woman hx of Bipolar Disorder, self presented at request of her brother due to patient stopping medications 3 months ago, even before there was a in the family (another brother) and she did not attend the . She presents with a constricted affect, but not particularly depressed. Poverty of thought noted. She denies SI/HI. She also seems not aware at all about why others would be concern about her. No overt delusional content. PLAN 1. Admit to M3, CV, 15 minutes checks for safety 2. obtain collateral information 3. aftercare planning. 07/09 continues tx 07/10 continue tx. 07/11: Active on unit. attending some groups. blunted affect. Patient reports feeling tired from restarting my medications ; she reports feeling depressed d/t her brother passing away last week and was unable to attend services d/t sleeping a lot . slowed speech. denies SI/HI/VH/AH. continue current tx plan. 07/12: Active on unit. attending some groups. blunted affect. slowed speech. appears thought blocking at times. Patient continues to report feeling depressed and tired ; tegretol changed to 400mg PO bedtime. denies SI/HI/VH/AH. 07/13: blunted affect. Patient continues to report feeling depressed and tired ; patient stated, I keep thinking about my brothers which is making me depressed . denies SI/HI/VH/AH. denies any side effects from restarting medications. continue current tx plan. 07/14: Active on unit. attending groups. medication compliant. Patient continues to report feeling depressed and tired ; patient stated, I'm trying to go to the groups . denies SI/HI/VH/AH. per nursing, slept 7 hours. keeping to self. 07/15: Active on unit. attending groups. medication compliant. low energy. Patient reports feeling a little better but still tired ; she plans on visiting with her brother and sister today, which she is looking forward to. denies SI/HI/VH/AH. continue current tx plan 07/16: Active on unit. attending groups. social with room mate. low energy. Pt continues to report depression and grieving brothers loss. showered. Patient reports she is trying to not nap during the day. denies SI/HI/VH/AH. Patient educated on: diagnosis, medication risk/benefits and therapeutic strategies Reason for continued inpatient stay Substantial Risk for: med/psych decompensation Time Spent With Patient Time: Total time managing care of this patient today _20___ minutes.
[2024-07-16] MEDS: Lurasidone HCl 40 MG TABLET PO (14:10)
[2024-07-16 20:00] VITALS: BP 138/70; PULSE 76; RESP 15; TEMP 36.6; O2SAT 100
[2024-07-16] MEDS: Donepezil HCl 5 MG TABLET PO (20:17)
[2024-07-16] MEDS: carBAMazepine ER 200 MG TAB.ER.12H 400 MG PO (20:17)
[2024-07-17 08:24] VITALS: BP 136/69; PULSE 71; RESP 16; TEMP 36.4; O2SAT 99
[2024-07-17] MEDS: Liothyronine Sodium 25 MCG TABLET 12.5 MCG PO ×2 (08:54→18:04)
[2024-07-17] MEDS: Furosemide 20 MG TABLET PO (08:55)
--- NOTE | 2024-07-17 08:59 | HO.PSYCHPN ---
Subjective Subjective Date of Service: 07/17/24 Reason For Visit: Crisis Subjective Notes: Conditional Voluntary Interim History: Active on unit. attending groups. social with room mate. Patient reports feeling pretty good today; denies feeling anxious or depressed. more talkative. showered. denies SI/HI/VH/AH. continue current tx plan. Medication Compliance: Yes Side effects from medications: No Attending Groups: Yes Mental Status Exam Mental Status Exam Narrative: Pt is alert and oriented; behavior is cooperative, calm; dressed in hospital attire; mood is described as pretty good ; eye contact appropriate; Speech is slow rate, normal volume, not pressured; thought process is organized; Thought content is on tx; denies SI/HI/VH/AH. Diagnostics Vital Signs (24Hr): Vital Signs - 24 hr 07/16/24 20:00 07/17/24 08:24 Temperature 97.8 F 97.6 F Pulse Rate 76 71 Respiratory Rate 15 16 Blood Pressure 138/70 136/69 Pulse Oximetry 100 99 Oxygen Delivery Method Room Air Room Air BMI result Body Mass Index 26.3 Labs 07/07/24 13:35 07/08/24 16:19 Medications Medications Current Medications Acetaminophen (Acetaminophen 325 Mg Tablet) 650 mg PO Q6H PRN PRN Reason: Headache/Pain, Scale 1-10 Al Hydroxide/Mg Hydroxide (Magnesium Hydrox/Alum Hydrox 30 Ml Oral.Susp) 30 ml PO Q6H PRN PRN Reason: Heartburn/Nausea Carbamazepine (Carbamazepine Er 200 Mg Tab.Er.12h) 400 mg PO BEDTIME [facility] Last Admin: 07/16/24 20:17 Dose: 400 mg Donepezil HCl (Donepezil Hcl 5 Mg Tablet) 5 mg PO BEDTIME [facility] Last Admin: 07/16/24 20:17 Dose: 5 mg Furosemide (Furosemide 20 Mg Tablet) 20 mg PO DAILY [facility]; Protocol Last Admin: 07/17/24 08:55 Dose: 20 mg Hydroxyzine HCl (Hydroxyzine Hcl 25 Mg Tablet) 25 mg PO Q6H PRN PRN Reason: mild anxiety Liothyronine Sodium (Liothyronine Sodium 25 Mcg Tablet) 12.5 mcg PO BID@0800,1800 [facility] Last Admin: 07/17/24 08:54 Dose: 12.5 mcg Lurasidone HCl (Lurasidone Hcl 40 Mg Tablet) 40 mg PO DAILY@1230 [facility] Last Admin: 07/16/24 14:10 Dose: 40 mg Magnesium Hydroxide (Milk Of Magnesia 30 Ml Oral.Susp) 30 ml PO DAILY PRN PRN Reason: Constipation Nicotine Polacrilex (Nicotine Polacrilex 2 Mg Gum) 4 mg BUCCAL Q2H PRN PRN Reason: Nicotine Cravings Trazodone HCl (Trazodone Hcl 50 Mg Tablet) 50 mg PO BEDTIME MRX1 PRN PRN Reason: Insomnia Last Admin: 07/08/24 22:06 Dose: 50 mg Allergies Allergies Allergy/AdvReac Type Severity Reaction Status Date / Time No Known Allergies Allergy Verified 07/07/24 12:40 Assessment & Plan Assessment & Plan (1) Bipolar depression: Status: Acute Code(s): F31.9 - Bipolar disorder, unspecified (2) Cognitive impairment: Status: Acute Code(s): R41.89 - Other symptoms and signs involving cognitive functions and awareness Plan Mrs. Johnston is a 68 year-old woman hx of Bipolar Disorder, self presented at request of her brother due to patient stopping medications 3 months ago, even before there was a in the family (another brother) and she did not attend the . She presents with a constricted affect, but not particularly depressed. Poverty of thought noted. She denies SI/HI. She also seems not aware at all about why others would be concern about her. No overt delusional content. PLAN 1. Admit to M3, CV, 15 minutes checks for safety 2. obtain collateral information 3. aftercare planning. 07/09 continues tx 07/10 continue tx. 07/11: Active on unit. attending some groups. blunted affect. Patient reports feeling tired from restarting my medications ; she reports feeling depressed d/t her brother passing away last week and was unable to attend services d/t sleeping a lot . slowed speech. denies SI/HI/VH/AH. continue current tx plan. 07/12: Active on unit. attending some groups. blunted affect. slowed speech. appears thought blocking at times. Patient continues to report feeling depressed and tired ; tegretol changed to 400mg PO bedtime. denies SI/HI/VH/AH. 07/13: blunted affect. Patient continues to report feeling depressed and tired ; patient stated, I keep thinking about my brothers which is making me depressed . denies SI/HI/VH/AH. denies any side effects from restarting medications. continue current tx plan. 07/14: Active on unit. attending groups. medication compliant. Patient continues to report feeling depressed and tired ; patient stated, I'm trying to go to the groups . denies SI/HI/VH/AH. per nursing, slept 7 hours. keeping to self. 07/15: Active on unit. attending groups. medication compliant. low energy. Patient reports feeling a little better but still tired ; she plans on visiting with her brother and sister today, which she is looking forward to. denies SI/HI/VH/AH. continue current tx plan 07/16: Active on unit. attending groups. social with room mate. low energy. Pt continues to report depression and grieving brothers loss. showered. Patient reports she is trying to not nap during the day. denies SI/HI/VH/AH. 07/17: Active on unit. attending groups. social with room mate. Patient reports feeling pretty good today; denies feeling anxious or depressed. more talkative. showered. denies SI/HI/VH/AH. continue current tx plan. Patient educated on: diagnosis, medication risk/benefits and therapeutic strategies Reason for continued inpatient stay Substantial Risk for: med/psych decompensation Time Spent With Patient Time: Total time managing care of this patient today _20___ minutes.
[2024-07-17] MEDS: Lurasidone HCl 40 MG TABLET PO (12:30)
[2024-07-17 20:00] VITALS: BP 128/82; PULSE 91; RESP 16; TEMP 36.4; O2SAT 99
[2024-07-17] MEDS: Donepezil HCl 5 MG TABLET PO (20:25)
[2024-07-17] MEDS: carBAMazepine ER 200 MG TAB.ER.12H 400 MG PO (20:26)
[2024-07-18 08:23] VITALS: BP 107/67
[2024-07-18] MEDS: Furosemide 20 MG TABLET PO (08:23)
[2024-07-18] MEDS: Liothyronine Sodium 25 MCG TABLET 12.5 MCG PO ×2 (08:24→17:47)
[2024-07-18 08:27] VITALS: BP 107/67; PULSE 79; RESP 16; TEMP 36.4; O2SAT 98
[2024-07-18] MEDS: Lurasidone HCl 40 MG TABLET PO (12:42)
--- NOTE | 2024-07-18 14:01 | P.PNPSI_ITS ---
Subjective Subjective Date of Service: 07/18/24 Reason For Visit: Crisis Subjective Notes: Conditional Voluntary Interim History: Active on unit. attending groups. social with peers. Patient continues to report feeling better ; will plan for discharge this week if patient continues to improve. denies SI/HI/VH/AH. continue current tx plan. Medication Compliance: Yes Side effects from medications: No Attending Groups: Yes Mental Status Exam Mental Status Exam Narrative: Pt is alert and oriented; behavior is cooperative, calm; dressed in hospital attire; mood is described as better ; eye contact appropriate; Speech is normal rate, volume, not pressured; thought process is organized; Thought content is on tx; denies SI/HI/VH/AH. Diagnostics Vital Signs (24Hr): Vital Signs - 24 hr 07/17/24 20:00 07/18/24 08:23 07/18/24 08:27 Temperature 97.6 F 97.6 F Pulse Rate 91 79 Respiratory Rate 16 16 Blood Pressure 128/82 107/67 107/67 Pulse Oximetry 99 98 Oxygen Delivery Method Room Air Room Air BMI result Body Mass Index 26.3 Labs 07/07/24 13:35 07/08/24 16:19 Medications Medications Current Medications Acetaminophen (Acetaminophen 325 Mg Tablet) 650 mg PO Q6H PRN PRN Reason: Headache/Pain, Scale 1-10 Al Hydroxide/Mg Hydroxide (Magnesium Hydrox/Alum Hydrox 30 Ml Oral.Susp) 30 ml PO Q6H PRN PRN Reason: Heartburn/Nausea Carbamazepine (Carbamazepine Er 200 Mg Tab.Er.12h) 400 mg PO BEDTIME ON LICENSE OF [facility] Last Admin: 07/17/24 20:26 Dose: 400 mg Donepezil HCl (Donepezil Hcl 5 Mg Tablet) 5 mg PO BEDTIME ON LICENSE OF [facility] Last Admin: 07/17/24 20:25 Dose: 5 mg Furosemide (Furosemide 20 Mg Tablet) 20 mg PO DAILY ON LICENSE OF [facility]; Protocol Last Admin: 07/18/24 08:23 Dose: 20 mg Hydroxyzine HCl (Hydroxyzine Hcl 25 Mg Tablet) 25 mg PO Q6H PRN PRN Reason: mild anxiety Liothyronine Sodium (Liothyronine Sodium 25 Mcg Tablet) 12.5 mcg PO BID@0800,1800 ON LICENSE OF [facility] Last Admin: 07/18/24 08:24 Dose: 12.5 mcg Lurasidone HCl (Lurasidone Hcl 40 Mg Tablet) 40 mg PO DAILY@1230 ON LICENSE OF [facility] Last Admin: 07/18/24 12:42 Dose: 40 mg Magnesium Hydroxide (Milk Of Magnesia 30 Ml Oral.Susp) 30 ml PO DAILY PRN PRN Reason: Constipation Nicotine Polacrilex (Nicotine Polacrilex 2 Mg Gum) 4 mg BUCCAL Q2H PRN PRN Reason: Nicotine Cravings Trazodone HCl (Trazodone Hcl 50 Mg Tablet) 50 mg PO BEDTIME MRX1 PRN PRN Reason: Insomnia Last Admin: 07/08/24 22:06 Dose: 50 mg Allergies Allergies Allergy/AdvReac Type Severity Reaction Status Date / Time No Known Allergies Allergy Verified 07/07/24 12:40 Assessment & Plan Assessment & Plan (1) Bipolar depression: Status: Acute Code(s): F31.9 - Bipolar disorder, unspecified (2) Cognitive impairment: Status: Acute Code(s): R41.89 - Other symptoms and signs involving cognitive functions and awareness Plan Mrs. Johnston is a 68 year-old woman hx of Bipolar Disorder, self presented at request of her brother due to patient stopping medications 3 months ago, even before there was a in the family (another brother) and she did not attend the . She presents with a constricted affect, but not particularly depressed. Poverty of thought noted. She denies SI/HI. She also seems not aware at all about why others would be concern about her. No overt delusional content. PLAN 1. Admit to M3, CV, 15 minutes checks for safety 2. obtain collateral information 3. aftercare planning. 07/09 continues tx 07/10 continue tx. 07/11: Active on unit. attending some groups. blunted affect. Patient reports feeling tired from restarting my medications ; she reports feeling depressed d/t her brother passing away last week and was unable to attend services d/t sleeping a lot . slowed speech. denies SI/HI/VH/AH. continue current tx plan. 07/12: Active on unit. attending some groups. blunted affect. slowed speech. appears thought blocking at times. Patient continues to report feeling depressed and tired ; tegretol changed to 400mg PO bedtime. denies SI/HI/VH/AH. 07/13: blunted affect. Patient continues to report feeling depressed and tired ; patient stated, I keep thinking about my brothers which is making me depressed . denies SI/HI/VH/AH. denies any side effects from restarting medications. continue current tx plan. 07/14: Active on unit. attending groups. medication compliant. Patient continues to report feeling depressed and tired ; patient stated, I'm trying to go to the groups . denies SI/HI/VH/AH. per nursing, slept 7 hours. keeping to self. 07/15: Active on unit. attending groups. medication compliant. low energy. Patient reports feeling a little better but still tired ; she plans on visiting with her brother and sister today, which she is looking forward to. denies SI/HI/VH/AH. continue current tx plan 07/16: Active on unit. attending groups. social with room mate. low energy. Pt continues to report depression and grieving brothers loss. showered. Patient reports she is trying to not nap during the day. denies SI/HI/VH/AH. 07/17: Active on unit. attending groups. social with room mate. Patient reports feeling pretty good today; denies feeling anxious or depressed. more talkative. showered. denies SI/HI/VH/AH. continue current tx plan. 07/18: Active on unit. attending groups. social with peers. Patient continues to report feeling better ; will plan for discharge this week if patient continues to improve. denies SI/HI/VH/AH. continue current tx plan. Patient educated on: diagnosis, medication risk/benefits and therapeutic strategies Reason for continued inpatient stay Substantial Risk for: med/psych decompensation Time Spent With Patient Time: Total time managing care of this patient today _20___ minutes.
[2024-07-18 15:19] LABS: TSH reflex Free T4 0.09 uIU/mL (0.32-4.0)
[2024-07-18 15:57] LABS: Free T4 (Free Thyroxine) 0.47 ng/dL (0.71-1.85)
[2024-07-18] MEDS: Donepezil HCl 5 MG TABLET PO (19:49)
[2024-07-18] MEDS: carBAMazepine ER 200 MG TAB.ER.12H 400 MG PO (19:49)
[2024-07-18 20:00] VITALS: BP 143/66; PULSE 90; RESP 16; TEMP 36.8; O2SAT 95
[2024-07-18] MEDS: Acetaminophen 325 MG TABLET 650 MG PO (22:46)
[2024-07-19] MEDS: traZODone HCL 50 MG TABLET PO (01:47)
[2024-07-19 07:43] VITALS: BP 138/63; PULSE 85; RESP 14; TEMP 37.1; O2SAT 99
[2024-07-19] MEDS: Liothyronine Sodium 25 MCG TABLET 12.5 MCG PO (08:11)
[2024-07-19] MEDS: Furosemide 20 MG TABLET PO (08:11)
--- NOTE | 2024-07-19 09:19 | P.PNPSI_ITS ---
Subjective Subjective Date of Service: 07/19/24 Reason For Visit: Crisis Subjective Notes: Conditional Voluntary Interim History: Active on unit. attending groups. social with peers. Patient reports feeling good and ready for discharge home; denies SI/HI/VH/AH. Patient plans on following up with her outpatient providers. Medication Compliance: Yes Side effects from medications: No Attending Groups: Yes Mental Status Exam Mental Status Exam Narrative: Pt is alert and oriented; behavior is cooperative, calm; dressed in casuel attire; mood is described as good ; eye contact appropriate; Speech is normal rate, volume, not pressured; thought process is organized; Thought content is on discharge; denies SI/HI/VH/AH. Diagnostics Vital Signs (24Hr): Vital Signs - 24 hr 07/18/24 20:00 07/19/24 07:43 Temperature 98.2 F 98.7 F Pulse Rate 90 85 Respiratory Rate 16 14 Blood Pressure 143/66 H 138/63 Pulse Oximetry 95 99 Oxygen Delivery Method Room Air Room Air BMI result Body Mass Index 26.3 Labs 07/07/24 13:35 07/08/24 16:19 Labs: Laboratory Results - last 48 hr 07/18/24 14:21 Hold Purple Top SEE NOTE TSH 0.09 L Free T4 0.47 L Medications Medications Current Medications Acetaminophen (Acetaminophen 325 Mg Tablet) 650 mg PO Q6H PRN PRN Reason: Headache/Pain, Scale 1-10 Last Admin: 07/18/24 22:46 Dose: 650 mg Al Hydroxide/Mg Hydroxide (Magnesium Hydrox/Alum Hydrox 30 Ml Oral.Susp) 30 ml PO Q6H PRN PRN Reason: Heartburn/Nausea Carbamazepine (Carbamazepine Er 200 Mg Tab.Er.12h) 400 mg PO BEDTIME [facility] Last Admin: 07/18/24 19:49 Dose: 400 mg Donepezil HCl (Donepezil Hcl 5 Mg Tablet) 5 mg PO BEDTIME [facility] Last Admin: 07/18/24 19:49 Dose: 5 mg Furosemide (Furosemide 20 Mg Tablet) 20 mg PO DAILY [facility]; Protocol Last Admin: 07/19/24 08:11 Dose: 20 mg Hydroxyzine HCl (Hydroxyzine Hcl 25 Mg Tablet) 25 mg PO Q6H PRN PRN Reason: mild anxiety Liothyronine Sodium (Liothyronine Sodium 25 Mcg Tablet) 12.5 mcg PO BID@0800,1800 [facility] Last Admin: 07/19/24 08:11 Dose: 12.5 mcg Lurasidone HCl (Lurasidone Hcl 40 Mg Tablet) 40 mg PO DAILY@1230 [facility] Last Admin: 07/18/24 12:42 Dose: 40 mg Magnesium Hydroxide (Milk Of Magnesia 30 Ml Oral.Susp) 30 ml PO DAILY PRN PRN Reason: Constipation Nicotine Polacrilex (Nicotine Polacrilex 2 Mg Gum) 4 mg BUCCAL Q2H PRN PRN Reason: Nicotine Cravings Trazodone HCl (Trazodone Hcl 50 Mg Tablet) 50 mg PO BEDTIME MRX1 PRN PRN Reason: Insomnia Last Admin: 07/19/24 01:47 Dose: 50 mg Allergies Allergies Allergy/AdvReac Type Severity Reaction Status Date / Time No Known Allergies Allergy Verified 07/07/24 12:40 Assessment & Plan Assessment & Plan (1) Bipolar depression: Status: Acute Code(s): F31.9 - Bipolar disorder, unspecified (2) Cognitive impairment: Status: Acute Code(s): R41.89 - Other symptoms and signs involving cognitive functions and awareness Plan Mrs. Johnston is a 68 year-old woman hx of Bipolar Disorder, self presented at request of her brother due to patient stopping medications 3 months ago, even before there was a in the family (another brother) and she did not attend the . She presents with a constricted affect, but not particularly depressed. Poverty of thought noted. She denies SI/HI. She also seems not aware at all about why others would be concern about her. No overt delusional content. PLAN 1. Admit to M3, CV, 15 minutes checks for safety 2. obtain collateral information 3. aftercare planning. 07/09 continues tx 07/10 continue tx. 07/11: Active on unit. attending some groups. blunted affect. Patient reports feeling tired from restarting my medications ; she reports feeling depressed d/t her brother passing away last week and was unable to attend services d/t sleeping a lot . slowed speech. denies SI/HI/VH/AH. continue current tx plan. 07/12: Active on unit. attending some groups. blunted affect. slowed speech. appears thought blocking at times. Patient continues to report feeling depressed and tired ; tegretol changed to 400mg PO bedtime. denies SI/HI/VH/AH. 07/13: blunted affect. Patient continues to report feeling depressed and tired ; patient stated, I keep thinking about my brothers which is making me depressed . denies SI/HI/VH/AH. denies any side effects from restarting medications. continue current tx plan. 07/14: Active on unit. attending groups. medication compliant. Patient continues to report feeling depressed and tired ; patient stated, I'm trying to go to the groups . denies SI/HI/VH/AH. per nursing, slept 7 hours. keeping to self. 07/15: Active on unit. attending groups. medication compliant. low energy. Patient reports feeling a little better but still tired ; she plans on visiting with her brother and sister today, which she is looking forward to. denies SI/HI/VH/AH. continue current tx plan 07/16: Active on unit. attending groups. social with room mate. low energy. Pt continues to report depression and grieving brothers loss. showered. Patient reports she is trying to not nap during the day. denies SI/HI/VH/AH. 07/17: Active on unit. attending groups. social with room mate. Patient reports feeling pretty good today; denies feeling anxious or depressed. more talkative. showered. denies SI/HI/VH/AH. continue current tx plan. 07/18: Active on unit. attending groups. social with peers. Patient continues to report feeling better ; will plan for discharge this week if patient continues to improve. denies SI/HI/VH/AH. continue current tx plan. 07/19: Active on unit. attending groups. social with peers. Patient reports feeling good and ready for discharge home; denies SI/HI/VH/AH. Patient plans on following up with her outpatient providers. Patient educated on: diagnosis and medication risk/benefits Reason for continued inpatient stay Substantial Risk for: stable for discharge Time Spent With Patient Time: Total time managing care of this patient today _20___ minutes.
[2024-07-19] MEDS: Lurasidone HCl 40 MG TABLET PO (12:41)
[2024-07-19 20:00] VITALS: BP 137/62; PULSE 89; RESP 16; TEMP 36.6; O2SAT 98
[2024-07-19] MEDS: carBAMazepine ER 200 MG TAB.ER.12H 400 MG PO (20:24)
[2024-07-19] MEDS: Donepezil HCl 5 MG TABLET PO (20:24)
[2024-07-19] MEDS: Acetaminophen 325 MG TABLET 650 MG PO (22:47)
[2024-07-20 07:57] VITALS: BP 140/89; PULSE 87; RESP 16; TEMP 36.6; O2SAT 100
[2024-07-20] MEDS: Furosemide 20 MG TABLET PO (08:11)
--- NOTE | 2024-07-20 08:45 | P.DS_ITS ---
DS: Providers Provider Date of Service: 07/20/24 Date of admission: 07/08/24 13:28 Date of discharge: 07/20/24 Primary care physician: Ahsan Carrero MD Admitting clinician: Noni Louis Attending physician on admission: Hugh Brian Attending physician on discharge: Hugh Brian Discharging clinician: Jinny Dooley DS: Diagnosis Discharge Diagnosis (1) Bipolar depression: Status: Acute (2) Cognitive impairment: Status: Acute DS: Medications Discharge Medications Home Medications: Previous Rx's ?Medication ?Instructions ?Recorded carbamazepine 400 mg 400 mg PO BEDTIME 30 days #30 tabs 07/19/24 tablet,extended release,12 hr donepezil 5 mg tablet 5 mg PO BEDTIME 30 days #30 tabs 07/19/24 furosemide 20 mg tablet 20 mg PO DAILY 30 days #30 tabs 07/19/24 lurasidone 40 mg tablet (Latuda) 40 mg PO DAILY@1230 30 days #30 07/19/24 tabs Mental Status Exam Mental Status Exam Narrative: Pt is alert and oriented; behavior is cooperative, calm; dressed in casuel attire; mood is described as good ; eye contact appropriate; Speech is normal rate, volume, not pressured; thought process is organized; Thought content is on discharge; denies SI/HI/VH/AH. Data Data Completed and Pending Completed studies during hospitalization [Text1]: 07/13/24 07/18/24 07:58 14:21 Hold Purple Top SEE NOTE TSH 0.18 L 0.09 L Free T4 0.84 0.47 L 07/07/24 Unknown Urine clean catch - Clean Catch Midstream Urine Culture - Final DS: Summary Hospital Course Hospital Course: Mrs. Johnston is a 68 year-old woman with hx of Bipolar Disorder who self presented to [facility]. She apparently had stopped taking all her medications about 3 months ago. Her brother a few weeks ago and she was not able to attend his . On the unit, pt presents with constricted affect. She reports feeling tired. She denies SI/HI. She also denies VH/AH. She seems unaware of why others would be concern about her. She reports she has been sleeping and eating well. Her does not have much to add. She does not present as anxious. Per family, pt has been staying mostly at home. She has poor hygiene. Although affect is constricted does not seem particularly depressed. Mrs. Johnston is a 68 year-old woman hx of Bipolar Disorder, self presented at request of her brother due to patient stopping medications 3 months ago, even before there was a in the family (another brother) and she did not attend the . She presents with a constricted affect, but not particularly depressed. Poverty of thought noted. She denies SI/HI. She also seems not aware at all about why others would be concern about her. No overt delusional content. PLAN 1. Admit to M3, CV, 15 minutes checks for safety 2. obtain collateral information 3. aftercare planning. Active on unit. attending some groups. blunted affect. Patient reports feeling tired from restarting my medications ; she reports feeling depressed d/t her brother passing away last week and was unable to attend services d/t sleeping a lot . slowed speech. denies SI/HI/VH/AH. continue current tx plan. blunted affect. slowed speech. appears thought blocking at times. Patient continues to report feeling depressed and tired ; tegretol changed to 400mg PO bedtime. denies SI/HI/VH/AH. blunted affect. Patient continues to report feeling depressed and tired ; patient stated, I keep thinking about my brothers which is making me depressed . denies SI/HI/VH/AH. denies any side effects from restarting medications. continue current tx plan. Active on unit. attending groups. medication compliant. Patient continues to report feeling depressed and tired ; patient stated, I'm trying to go to the groups . denies SI/HI/VH/AH. per nursing, slept 7 hours. keeping to self. medication compliant. low energy. Patient reports feeling a little better but still tired ; she plans on visiting with her brother and sister today, which she is looking forward to. denies SI/HI/VH/AH. continue current tx plan social with room mate. low energy. Pt continues to report depression and grieving brothers loss. showered. Patient reports she is trying to not nap du ring the day. denies SI/HI/VH/AH. Patient reports feeling pretty good today; denies feeling anxious or depressed. more talkative. showered. denies SI/HI/VH/AH. continue current tx plan. Patient continues to report feeling better ; will plan for discharge this week if patient continues to improve. denies SI/HI/VH/AH. continue current tx plan. Patient reports feeling good and ready for discharge home; denies SI/HI/VH/AH. Patient plans on following up with her outpatient providers. Status at Discharge Cognitive/behavioral status at discharge: Patient has insight and demonstrates good judgment in terms of wanting to pursue treatment. Patient has a safety plan that includes presenting to the closest ER or calling 911 if feeling unsafe. Functional status at discharge: independent ambulation Overall status at discharge: patient is back to baseline Time Spent with Patient Time attestation: Total time managing care of this patient today _20___ minutes. Time spent: Less than 30 minutes Discharge Plan Discharge Anticipated Discharge Date/Time: 07/20/24 09:00 Patient Disposition: Home, Self-Care Discharge Diagnosis: Bipolar d/o, PTSD Referrals: [facility] [Other] - 1 Week (Walk in hours are Thursday- Thursday 10am-12pm Bring your ID, insurance card, and discharge paperwork) Ahsan Carrero MD [Primary Care Provider] - 1 Week (07-20-24 Please contact your primary care physician to schedule your follow up appt within 7-10 days of discharge. No release on file to allow us to make contact on your behalf.) Discharge Medications: New carbamazepine 400 mg tablet extended release 12 hr 400 mg PO BEDTIME 30 Days Qty: 30 0RF Continued donepezil 5 mg Tablet 5 mg PO BEDTIME 30 Days Qty: 30 0RF furosemide 20 mg tablet 20 mg PO DAILY 30 Days Qty: 30 0RF lurasidone [Latuda] 40 mg Tablet 40 mg PO DAILY@1230 30 Days Qty: 30 0RF Discontinued carbamazepine 200 mg Tablet Extended Release 12 Hr 200 mg PO BID 30 Days Qty: 60 0RF liothyronine [Cytomel] 25 mcg Tablet 12.5 mcg PO BID@0800,1800 30 Days Qty: 30 0RF Discharge Orders: Discharge Order (Routine); Ordered 07/20/24 Ordered By: Jinny Dooley Diet: Regular diet Activity on Discharge: As tolerated Stand Alone Forms: Patient Portal Discharge page, Community Support Print Language: Mauritanian Care Plan Goals: Maintain mood and safe behaviors Take medications as prescribed Practice coping skills Continue with outpatient providers and reach out to them as needed Health Concerns: Mood stability and behaviors Plan of Treatment: Follow up with your PCP, psychiatric provider and other outpatient providers regarding above concerns Take medications as prescribed Assessment: Patient has insight and demonstrates good judgment in terms of wanting to pursue treatment. Patient has a safety plan that includes presenting to the closest ER or calling 911 if feeling unsafe. Discharge Date/Time: 07/20/24 09:21
== END 2024-07-20 09:21 | disposition home or self-care (01) | DRG 885 ==
LOC: HO.ED 15:29 → HO.PADLT16 07-08 13:35
PROVIDERS: Physician Assistant Medical; Admitting Provider Registered Nurse; Emergency Provider Emergency Medicine; PCP Internal Medicine; Responsible Provider Registered Nurse; Visit Provider Psychiatry & Neurology Psychiatry
DX: F31.9 Bipolar disorder, unspecified (principal); F43.10 Post-traumatic stress disorder, unspecified; R41.89 Other symptoms and signs involving cognitive functions and awareness; Z63.4 Disappearance and death of family member; Z91.148 Patient's other noncompliance with medication regimen for other reason; Z87.891 Personal history of nicotine dependence; Z79.899 Other long term (current) drug therapy
CPT/HCPCS: 36415; 80053; 80061; 80143; 80179; 80307; 81001; 84439; 84443; 85025; 87086; 93005; 99284; S9485

== ENCOUNTER → 2024-07-08 07:48 | Outpatient (BNV) | payer MEDICARE, SELFPAY | PROVIDERS: Admitting Provider Registered Nurse; Emergency Provider Emergency Medicine; PCP Internal Medicine; Visit Provider Internal Medicine Cardiovascular Disease | DX: I45.10 Unspecified right bundle-branch block (principal) | CPT/HCPCS: 93010 ==

== ENCOUNTER → 2024-07-08 13:28 | Outpatient (BNV) | payer MEDICARE, SELFPAY | PROVIDERS: Admitting Provider Registered Nurse; Emergency Provider Emergency Medicine; PCP Internal Medicine; Visit Provider Social Worker | DX: F31.4 Bipolar disorder, current episode depressed, severe, without psychotic features (principal); R41.89 Other symptoms and signs involving cognitive functions and awareness | CPT/HCPCS: 99231; 99499 ==

== ENCOUNTER 2024-07-25 01:29 | Emergency (ER) | payer MEDICARE, SELFPAY ==
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
[2024-07-25 01:35] VITALS: BP 114/91; PULSE 103; RESP 16; TEMP 36.6; O2SAT 99; BMI 28.2
[2024-07-25 02:05] LABS: Basophils Percent Auto 0.5 % (0-2); Eosinophils Absolute Auto 0.1 X10*3/uL (0.0-0.4); Eosinophils Percent Auto 1.7 % (0-4); Hematocrit 35.9 % (37.0-47.0); Hemoglobin 11.5 g/dl (12.0-16.0); Imm Gran Abs Auto 0.02 X10*3/uL (0.00-0.03); Imm Gran Pct Auto 0.2 % (0.0-0.4); Lymphocytes Absolute Auto 1.6 X10*3/uL (1.2-4.9); Lymphocytes Percent Auto 19.4 % (20-40); MANUAL DIFF FLAG NO; Mean Corpuscular Hemoglobin 29.3 pg (27.0-33.0); Mean Corpuscular Volume 91.3 fL (80.0-98.0); Mean Platelet Volume 9.1 fL (9.4-12.3); Monocytes Absolute Auto 0.7 X10*3/uL (0.1-1.2); Monocytes Percent Auto 8.3 % (2-11); Neutrophils Absolute Auto 5.8 x10*3/uL (2.0-8.3); Neutrophils Percent Auto 69.9 % (45-73); Platelet Count 356 X10*3/uL (160-400); Red Blood Count 3.93 X10*6/uL (4.20-5.50); Red Cell Distribution Width 14.3 % (11.0-16.0); White Blood Count 8.2 X10*3/uL (4.8-10.8)
[2024-07-25 02:07] LABS: Appearance Urine Clear; Color Urine Yellow; Glucose Urine UA Negative (Negative); Leukocyte Esterase Urine Moderate (2+) (Negative); Nitrite Urine Negative (Negative); UMIC TRIGGER UACC YES; Urine Blood Trace (Negative); Urine Ketones Negative (Negative); Urine Protein Negative (Neg-Trace)
[2024-07-25 02:13] LABS: Bacteria Urine Trace (None Seen); RBC Urine 0-2 /HPF (0-2); UACC Culture Trigger YES; WBC Urine 21-50 /HPF (0-5)
[2024-07-25 02:16] LABS: Anion Gap 12 (12-20); Blood Urea Nitrogen 21 mg/dL (9-16); Calcium 9.2 mg/dL (8.4-10.2); Carbon Dioxide 27 mmol/L (22-29); Chloride 109 mmol/L (96-108); Creatinine Clr Calc Pharmacy 61.5; Estimated Glomerular Filt Rate > 60; Glucose Random 97 mg/dL (60-115); Potassium 4.3 mmol/L (3.3-5.1); Sodium 144 mmol/L (135-145)
[2024-07-25 06:10] VITALS: BP 159/77; PULSE 97; RESP 16; TEMP 36.5; O2SAT 99
--- NOTE | 2024-07-25 08:46 | ED.FEMALEGU ---
HPI - Female Genitourinary General Chief complaint: Urogenital-Female Stated complaint: swollen feet Time Seen by Provider: 07/25/24 06:48 Related Data Previous Rx's ?Medication ?Instructions ?Recorded carbamazepine 400 mg 400 mg PO BEDTIME 30 days #30 tabs 07/19/24 tablet,extended release,12 hr donepezil 5 mg tablet 5 mg PO BEDTIME 30 days #30 tabs 07/19/24 furosemide 20 mg tablet 20 mg PO DAILY 30 days #30 tabs 07/19/24 lurasidone 40 mg tablet (Latuda) 40 mg PO DAILY@1230 30 days #30 07/19/24 tabs Allergies Allergy/AdvReac Type Severity Reaction Status Date / Time No Known Allergies Allergy Verified 07/25/24 01:37 [facility] Past Medical History Medical History Bipolar 1 disorder Airam RADHA (acute kidney injury) Fracture of right ulnar styloid Neurodegenerative cognitive impairment Bipolar disorder, most recent episode depressed Left ankle sprain Low back pain Acute bronchitis Left sided sciatica Depression Sore throat (viral) Surgical History Hx of colonoscopy No significant past surgical history Social History Social History Household Members: Family Household Members Other:: Housing: House Do you presently have visiting nurse or other home services: No Alcohol intake: unknown Comment: Independent Patient Tobacco Use Status: Former Tobacco user e-Cigarette/Vaping Use: Never Used Second Hand Smoke Exposure: No Substance Use Type: Marijuana Advance Directives: No Advance Directives Information Provided: Yes Do you have a plan to hurt others: No Plan service: No Sexual orientation: Straight/Heterosexual Physical Exam Vital Signs: Vital Signs: Last Vital Signs Temp 97.7 F 07/25/24 06:10 Pulse 97 07/25/24 06:10 Resp 16 07/25/24 06:10 BP 159/77 H 07/25/24 06:10 Pulse Ox 99 07/25/24 06:10 O2 Del Method Room Air 07/25/24 06:10 BMI result Body Mass Index 28.2 Medical Decision Making Lab Data 07/25/24 01:59 07/25/24 01:59 Labs: Lab Results 07/25/24 07/25/24 Range/Units 01:56 01:59 WBC 8.2 (4.8-10.8) X10*3/uL RBC 3.93 L (4.20-5.50) X10*6/uL Hgb 11.5 L (12.0-16.0) g/dl Hct 35.9 L (37.0-47.0) % MCV 91.3 (80.0-98.0) fL MCH 29.3 (27.0-33.0) pg MCHC 32.0 (31.0-35.0) g/dl RDW 14.3 (11.0-16.0) % Plt Count 356 (160-400) X10*3/uL MPV 9.1 L (9.4-12.3) fL Immature Gran % (Auto) 0.2 (0.0-0.4) % Neut % (Auto) 69.9 (45-73) % Lymph % (Auto) 19.4 L (20-40) % Crisp % (Auto) 8.3 (2-11) % Eos % (Auto) 1.7 (0-4) % Baso % (Auto) 0.5 (0-2) % Lymph # (Auto) 1.6 (1.2-4.9) X10*3/uL Crisp # (Auto) 0.7 (0.1-1.2) X10*3/uL Eos # (Auto) 0.1 (0.0-0.4) X10*3/uL Baso # (Auto) 0.0 (0.0-0.2) X10*3/uL Abs Immat Gran (auto) 0.02 (0.00-0.03) X10*3/uL Absolute Neuts (auto) 5.8 (2.0-8.3) x10*3/uL Absolute Nucleated RBC 0.000 (0.0-0.012) X10*3/uL Nucleated RBC % (auto) 0.0 (0.0-0.2) /100WBC Sodium 144 (135-145) mmol/L Potassium 4.3 (3.3-5.1) mmol/L Chloride 109 H (96-108) mmol/L Carbon Dioxide 27 (22-29) mmol/L Anion Gap 12 (12-20) BUN 21 H (9-16) mg/dL Creatinine 0.81 (0.5-1.4) mg/dL Estim Creat Clear Calc 61.5 Estimated GFR > 60 Random Glucose 97 (60-115) mg/dL Calcium 9.2 (8.4-10.2) mg/dL Urine Color Yellow Urine Appearance Clear Urine pH 5.0 (5.0-9.0) Ur Specific [place] 1.020 (1.005-1.025) Urine Protein Negative (Neg-Trace) mg/dL Urine Glucose (UA) Negative (Negative) mg/dL Urine Ketones Negative (Negative) mg/dL Urine Blood Trace H (Negative) Urine Nitrite Negative (Negative) Ur Leukocyte Esterase Moderate (2+) H (Negative) Urine RBC 0-2 (0-2) /HPF Urine WBC 21-50 H (0-5) /HPF Ur Squamous Epith Cells 3-5 (0-2) /HPF Urine Bacteria Trace (None Seen) Hyaline Casts 3-5 (0-2) /LPF Discharge Plan Discharge Prescriptions: No Action carbamazepine 400 mg tablet extended release 12 hr 400 mg PO BEDTIME 30 Days Qty: 30 0RF donepezil 5 mg Tablet 5 mg PO BEDTIME 30 Days Qty: 30 0RF furosemide 20 mg tablet 20 mg PO DAILY 30 Days Qty: 30 0RF lurasidone [Latuda] 40 mg Tablet 40 mg PO DAILY@1230 30 Days Qty: 30 0RF Print Language: Bengali
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
[2024-07-25 12:15] VITALS: BP 172/94; PULSE 87; RESP 16; TEMP 36.6; O2SAT 99
[2024-07-25 12:27] LABS: B Type Natriuretic Peptide 14 pg/mL (<100)
[2024-07-25] MEDS: cefuroxime axetiL 250 MG TABLET PO (13:26)
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
--- NOTE | 2024-07-25 14:30 | PC.NURSE ---
CARE team consult ordered by provider. Awaiting CT scan results.
--- NOTE | 2024-07-25 14:38 | PC.NURSE ---
Patient is medically cleared per VANESSA López. Plan to be relocated to ED Pod pending CARE team evaluation. iv therapy nurse (Bonilla Valles) aware.
--- NOTE | 2024-07-25 16:02 | MHC.CARE ---
Patient evaluated by the CARE Team, she appears hypomanic though not a danger to herself or others at this time. See assessment for details. Provider, VANESSA Harvey updated and in agreement to discharge patient home.
[2024-07-25 16:10] VITALS: BP 135/94; PULSE 113; RESP 18; TEMP 36.8; O2SAT 97
[2024-07-25 17:07] VITALS: BP 138/82; PULSE 100; RESP 18; TEMP 36.8; O2SAT 98
== END 2024-07-25 17:07 | disposition home or self-care (01) ==
PROVIDERS: Physician Assistant Medical; Emergency Provider Emergency Medicine Emergency Medical Services; PCP Internal Medicine
DX: F31.9 Bipolar disorder, unspecified (principal); N39.0 Urinary tract infection, site not specified; R51.9 Headache, unspecified; R06.02 Shortness of breath; R60.0 Localized edema; R35.0 Frequency of micturition; R30.0 Dysuria; D64.9 Anemia, unspecified; F10.20 Alcohol dependence, uncomplicated; Y90.9 Presence of alcohol in blood, level not specified; Z87.891 Personal history of nicotine dependence; Z79.899 Other long term (current) drug therapy
CPT/HCPCS: 36415; 70450; 80048; 81001; 83880; 85025; 87086; 99284; S9485

== ENCOUNTER → 2024-07-25 12:22 | Outpatient (BNV) | payer MEDICARE, SELFPAY | PROVIDERS: Emergency Provider Emergency Medicine Emergency Medical Services; PCP Internal Medicine; Visit Provider Radiology Diagnostic Radiology | DX: S09.90XA Unspecified injury of head, initial encounter (principal) | CPT/HCPCS: 70450 ==

== ENCOUNTER 2024-07-31 21:25 | Emergency (ER) | payer MEDICARE, SELFPAY ==
[2024-07-31 22:01] VITALS: BP 122/49; PULSE 110; RESP 20; TEMP 36.7; O2SAT 96; BMI 29.1
[2024-07-31 22:50] LABS: MANUAL DIFF FLAG NO
[2024-07-31 22:51] LABS: Basophils Percent Auto 0.3 % (0-2); Eosinophils Absolute Auto 0.1 X10*3/uL (0.0-0.4); Eosinophils Percent Auto 1.1 % (0-4); Hematocrit 35.5 % (37.0-47.0); Hemoglobin 11.3 g/dl (12.0-16.0); Imm Gran Abs Auto 0.04 X10*3/uL (0.00-0.03); Imm Gran Pct Auto 0.4 % (0.0-0.4); Lymphocytes Absolute Auto 1.6 X10*3/uL (1.2-4.9); Lymphocytes Percent Auto 18.1 % (20-40); Mean Corpuscular HGB Conc 31.8 g/dl (31.0-35.0); Mean Corpuscular Hemoglobin 28.5 pg (27.0-33.0); Mean Corpuscular Volume 89.6 fL (80.0-98.0); Mean Platelet Volume 9.1 fL (9.4-12.3); Monocytes Absolute Auto 0.7 X10*3/uL (0.1-1.2); Monocytes Percent Auto 8.1 % (2-11); Neutrophils Absolute Auto 6.5 x10*3/uL (2.0-8.3); Platelet Count 404 X10*3/uL (160-400); Red Blood Count 3.96 X10*6/uL (4.20-5.50)
[2024-07-31 22:52] LABS: Appearance Urine Clear; Color Urine Yellow; Glucose Urine UA Negative (Negative); Leukocyte Esterase Urine Moderate (2+) (Negative); Nitrite Urine Negative (Negative); PH 5.5 (5.0-9.0); Specific Gravity - Urine >= 1.030 (1.005-1.025); UMIC TRIGGER UACC YES; Urine Blood Negative (Negative); Urine Ketones 15 mg/dL (Negative); Urine Protein Negative (Neg-Trace)
[2024-07-31 22:57] LABS: Bacteria Urine None Seen (None Seen); Hyaline Casts Urine 0-2 /LPF (0-2); RBC Urine 0-2 /HPF (0-2); UACC Culture Trigger YES
[2024-07-31 23:04] LABS: Alanine Aminotransferase 21 U/L (0-31); Albumin Level 3.7 g/dL (3.5-5.0); Alkaline Phosphatase 99 U/L (39-117); Anion Gap 11 (12-20); Aspartate Amino Transferase 27 U/L (5-31); Bilirubin Total 0.1 mg/dL (0.0-1.0); Blood Urea Nitrogen 19 mg/dL (9-16); Calcium 8.8 mg/dL (8.4-10.2); Carbon Dioxide 26 mmol/L (22-29); Chloride 110 mmol/L (96-108); Creatinine Clr Calc Pharmacy 53.2; Estimated Glomerular Filt Rate 58; Glucose Random 95 mg/dL (60-115); Potassium 4.3 mmol/L (3.3-5.1); Sodium 143 mmol/L (135-145); Total Protein 6.8 g/dL (6.5-8.0)
[2024-07-31 23:10] LABS: B Type Natriuretic Peptide 25 pg/mL (<100)
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
[2024-08-01] MEDS: Acetaminophen 325 MG TABLET 975 MG PO (02:20)
[2024-08-01] MEDS: Donepezil HCl 5 MG TABLET PO (02:20)
[2024-08-01] MEDS: Melatonin 3 MG TABLET PO (02:20)
[2024-08-01] MEDS: carBAMazepine 200 MG TABLET 400 MG PO (02:20)
[2024-08-01] MEDS: hydrOXYzine HCL 25 MG TABLET PO (02:20)
[2024-08-01 02:25] VITALS: BP 116/61; PULSE 95; RESP 16; TEMP 36.8; O2SAT 98
--- NOTE | 2024-08-01 03:02 | PC.NURSE ---
unable to reach family for transportation home. pt remains in ed awaiting safe discharge. pt medicated per mar with home night meds, pt requested melatonin, hydroxyzine given for itchiness, pt also requested tylenol for chronic lower back pain. pt took meds whole 1 by 1. now resting comfortably. call miranda within reach.
[2024-08-01 07:48] VITALS: BP 116/61; PULSE 95; RESP 16; TEMP 36.8; O2SAT 98
== END 2024-08-01 08:23 | disposition home or self-care (01) ==
PROVIDERS: Emergency Provider Emergency Medicine Emergency Medical Services; PCP Internal Medicine
DX: R41.3 Other amnesia (principal); R60.9 Edema, unspecified; M79.672 Pain in left foot; R35.0 Frequency of micturition; Z79.899 Other long term (current) drug therapy
CPT/HCPCS: 36415; 80053; 81001; 83880; 85025; 87086; 99283; 99284

== ENCOUNTER 2024-08-04 04:48 | Emergency (ER) | payer MEDICARE, SELFPAY ==
[2024-08-04 04:55] VITALS: BP 163/80; PULSE 91; RESP 16; TEMP 36.1; O2SAT 100
[2024-08-04 04:59] VITALS: BP 172/100; PULSE 100; O2SAT 99; BMI 30.6
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
[2024-08-04 07:13] VITALS: BP 145/80; PULSE 89; RESP 18; TEMP 36.5; O2SAT 100
== END 2024-08-04 07:14 | disposition home or self-care (01) ==
PROVIDERS: Emergency Provider Internal Medicine
DX: S10.91XA Abrasion of unspecified part of neck, initial encounter (principal); Y09 Assault by unspecified means; F31.9 Bipolar disorder, unspecified; G31.9 Degenerative disease of nervous system, unspecified; F43.10 Post-traumatic stress disorder, unspecified; Z91.148 Patient's other noncompliance with medication regimen for other reason; Y93.9 Activity, unspecified; Y92.009 Unspecified place in unspecified non-institutional (private) residence as the place of occurrence of the external cause; Y99.9 Unspecified external cause status
CPT/HCPCS: 99282; 99283

== ENCOUNTER 2024-08-06 00:17 | Emergency (ER) | payer MEDICARE, SELFPAY ==
[2024-08-06 00:21] VITALS: BP 122/62; PULSE 92; O2SAT 98
[2024-08-06 00:24] VITALS: BP 132/61; PULSE 97; RESP 20; TEMP 36.4; O2SAT 100; BMI 28.3
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
--- NOTE | 2024-08-06 01:10 | PC.NURSE ---
section 12 by MD Daniels. pt calm and cooperative at this time. walks with a steady gait. resting comfortably in room, breathing even and unlabored with eyes closed. labs and UA obtained
[2024-08-06 01:18] LABS: Basophils Percent Auto 0.6 % (0-2); Eosinophils Absolute Auto 0.1 X10*3/uL (0.0-0.4); Eosinophils Percent Auto 1.4 % (0-4); Hematocrit 34.6 % (37.0-47.0); Hemoglobin 11.3 g/dl (12.0-16.0); Imm Gran Abs Auto 0.03 X10*3/uL (0.00-0.03); Imm Gran Pct Auto 0.4 % (0.0-0.4); Lymphocytes Absolute Auto 1.6 X10*3/uL (1.2-4.9); Lymphocytes Percent Auto 23.1 % (20-40); MANUAL DIFF FLAG NO; Mean Corpuscular HGB Conc 32.7 g/dl (31.0-35.0); Mean Corpuscular Hemoglobin 28.5 pg (27.0-33.0); Mean Corpuscular Volume 87.2 fL (80.0-98.0); Monocytes Absolute Auto 0.7 X10*3/uL (0.1-1.2); Monocytes Percent Auto 9.7 % (2-11); Neutrophils Absolute Auto 4.5 x10*3/uL (2.0-8.3); Neutrophils Percent Auto 64.8 % (45-73); Platelet Count 370 X10*3/uL (160-400); Red Blood Count 3.97 X10*6/uL (4.20-5.50); Red Cell Distribution Width 13.8 % (11.0-16.0); White Blood Count 6.9 X10*3/uL (4.8-10.8)
[2024-08-06 01:39] LABS: Amphetamine Screen Urine Not Detected (Not Detect); Barbiturates, Urine Not Detected (Not Detect); Benzodiazepines Screen Urine Not Detected (Not Detect); Buprenorphine Scr Not Detected (Not Detect); Cannabinoid Screen Urine POSITIVE (Not Detect); Cocaine Screen Urine Not Detected (Not Detect); Fentanyl, urine Not Detected (Not Detect); Methadone Screen, Urine Not Detected (Not Detect); Opiate Screen Urine Not Detected (Not Detect); Oxycodone Screen Urine Not Detected (Not Detect); Phencyclidine Screen Urine Not Detected (Not Detect)
[2024-08-06 01:40] LABS: B Type Natriuretic Peptide 16 pg/mL (<100)
[2024-08-06 01:43] LABS: Alanine Aminotransferase 16 U/L (0-31); Albumin Level 3.7 g/dL (3.5-5.0); Anion Gap 13 (12-20); Aspartate Amino Transferase 27 U/L (5-31); Bilirubin Direct < 0.2 mg/dL (0.0-0.5); Bilirubin Total 0.2 mg/dL (0.0-1.0); Blood Urea Nitrogen 17 mg/dL (9-16); Calcium 8.6 mg/dL (8.4-10.2); Carbon Dioxide 26 mmol/L (22-29); Chloride 107 mmol/L (96-108); Creatinine Clr Calc Pharmacy 58.1; Estimated Glomerular Filt Rate > 60; Ethanol < 10 mg/dL; Glucose Random 88 mg/dL (60-115); Magnesium 2.2 mg/dL (1.6-2.6); Potassium 4.2 mmol/L (3.3-5.1); Sodium 142 mmol/L (135-145); Total Protein 6.9 g/dL (6.5-8.0)
[2024-08-06 02:03] LABS: Alkaline Phosphatase 101 U/L (39-117)
--- NOTE | 2024-08-06 06:01 | PC.NURSE ---
pt rested comfortably throughout the night, awake and walking around unit, requesting to go home
--- NOTE | 2024-08-06 06:37 | PC.NURSE ---
pt hyperverbal, in and out of room, many requests and stories she would like to tell. encouraged pt to lay in bed with her feet up
[2024-08-06 06:42] VITALS: BP 140/79; PULSE 93; RESP 17; TEMP 37; O2SAT 99
--- NOTE | 2024-08-06 07:00 | PC.NURSE ---
Assumed care of patient at 0645, patient ambulating around BH pod this am, frequently asking for items and for discharge. Patient has poor boundaries and is not responding well to limit setting. Patient is pending CARE team elias
[2024-08-06] MEDS: OLANZapine ODT 10 MG TAB.RAPDIS TRANSLINGU (07:27)
[2024-08-06] MEDS: Furosemide 40 MG TABLET PO (07:27)
[2024-08-06] MEDS: Acetaminophen 325 MG TABLET 650 MG PO (07:27)
--- OUTSIDE RECORDS SUMMARY | 2024-08-06 07:30 | XMS_ITS ---
Author Organization Ahsan Carrero MD Address [address] [place] [phone] Care Team Providers Care Banana Expert Name Role Phone NoreenAhsan ulloa Primary Care Provider REASON FOR VISIT discharge Encounters Encounter Location Date Provider Diagnosis Ahsan Carrero MD [address] [place] [phone] 07/21/2024 Ahsan Carrero Plan Of Treatment No Information Progress Notes * Marjorie ADEN ADOB: 1955 (68 yo F)Acc No.[id number]:07/21/2024 Patient:?Miller ADEN :1955???Age:68 Y???Sex:Female Address:[address] [place] [address] [place] [address] * true * Date:? Generated for Rachel colmenares/Melecio/eTransmitting on:?08/06/2024 07:30 AM EDT
--- OUTSIDE RECORDS SUMMARY | 2024-08-06 07:30 | XMS_ITS | Clinical Summary ---
Author Organization [facility] Address [address] [address] Care Team Providers Care National Basketball [employer] Scout Name Role Phone Unavailable Primary Care Provider [...] of 1 - PCV) 2018 Influenza Vaccine (Season Ended) 2025 Hepatitis B Vaccine Aged Out No longe r eligible based on patient's age to complete this topic
--- OUTSIDE RECORDS SUMMARY | 2024-08-06 07:31 | XMS_ITS | Patient Health Record ---
Author Organization [facility] Address [address] [place] [phone] Care Team Providers Care Waxer Floor Name Role Phone Alise OCONNOR, Ahsan Primary Care Provider José Antonio Linda [phone] Allergies Allergen (clinical drug ingredient) Drug/Non Drug [...] Problem Status W/U Status Risk Notes Problem [id number] Encounter for screening for malignant neoplasm of colon (Z12.11) Active confirmed Problem 622735263314502 Pre-procedural examination (Z01.818) Active confirmed Problem Diverticular disease of colon (983521589) Diverticular disease of colon (K57.30) Active confirmed Plan Of Treatment Future Test Test Name Order Date COLONOSCOPY 10/24/2020 Insurance Providers Payer Name Payer Address Payer Phone Subscriber Number Group Number Insured Name Patient Relationship to Insured Coverage Start Date Coverage End Date MEDICARE OF [place] [address] [place] [address] [id number] ELISEO MURPHY Self - patient is the insured [employer] ATTN CLAIMS [address] [place] [address] [id number] ELISEO MURPHY Self - patient is the insured Medical (General) History Medical History History ICD Code Denies SD,DM,CVA,Lung disease,renal dise ase Negative screening colonoscopy in 08/2007 Depression Surgical History Surgery Date(Month/Year)
--- OUTSIDE RECORDS SUMMARY | 2024-08-06 07:31 | XMS_ITS ---
Author Organization [facility] Address [address] [place] [address] Care Team Providers Care Yard Loader Operator Name Role Phone Ahsan Carrero MD Primary Care Provider Alex Gabriel Unavailable [phone] Allergies Allergen (clinical drug ingredient) Drug/Non Drug [...] Problem Status W/U Status Risk Notes Problem [id number] Tinea unguium (B35.1) Active confirmed Vital Signs Height 5ft 3.5in in 01/07/2024 Weight 155 lbs 01/07/2024 BMI 27.02 kg/m2 01/07/2024 Procedures Procedure Date Ordered Date Performed Result Body Sit e 09118-ZFITTNM NAIL, 6 OR MORE 01/07/2024 N/A 48156-Dgnc Destruction, 1-14 01/07/2024 N/A Encounters Encounter Location Date Provider Diagnosis [facility] [place] [address] [place] [phone] 01/07/2024 Alex Heart Tinea unguium B35.1 ; [...] Treatment Pending Test Test Name Order Date 24861-IBAXJJM NAIL, 6 OR MORE 01/07/2024 56740-Okky Destruction, 1-01/07/2024 Next Appt Details Follow Up: prn, Reason: Procedure Notes * Category Sub-Category Detail Notes Wart Treatment Procedure Verrucae were de brided to pin-point bleeding margins with sterile 15 surgical blade, silver nitrate chemocautery applied, recomm. immune-boosting meds such as zinc, recomm. follow up with topical chemosurgical agents, Pt defers any other forms of tx - 91067 Debride Nail 6-10 Nail debridement Performance o f this nail treatment by a nonprofessional would put this patients foot and overall health at risk. Therefore, nail debridement was performed extensively to reduce/remove overall nail length, girth, thickness, subungual debris, and necrotic tissue, by manual and/or electrical means through the use of a nail nipper and/or dremel-type stopper grinder, to a more viable healthy nail plate or bed tissue 6-10. Silver nitrate used for any petechial bleeding as necessary. Definitive antifungal treatment options have been reviewed and discussed with the patient. The patient chooses, no pharmaceutical tx - 83056 Progress Notes * Marjorie ADEN ADOB: 1955 (68 yo F)Acc No.[id number]:01/07/2024 Progress Note Patient:?StantonbelindaMiller Provider:?Alex Heart DPM :1955???Age:68 Y???Sex:Female D ate:01/07/2024 Address:[address] [place], [place] [phone] Pcp:Ahsan Carrero MD Subjective: * Chief Complaints: [...] * Hospitalization/Major Diagno stic Procedure:?Patient went to [facility] for a rash. 11/28/2012[facility] positive for [place] 03/2020[facility] - Depression 3months 12/2022[facility] in and out for bipolar depression, 5961-8584 * Family History:?Mother: dece ased, diagnosed with [...] - M79.672? Plan: * Treatment: 2.?Plantar wart?Procedure: 51099-Qhat Destruction, 1-14 * Procedures:?Debride Nail 6-10:?Nail debridement?Performance of this nail treatment by a nonprofessional would put this patients foot and overall health at risk. Therefore, nail debridement was performed extensively to reduce/remove overall nail length, girth, thickness, subungual debris, and necrotic tissue, by manual and/or electrical means through the use of a nail nipper and/or dremel-type stopper grinder, to a more viable healthy nail plate or bed tissue 6-10. Silver nitrate used for any petechial bleeding as necessary. Definitive antifungal treatment options have been reviewed and discussed with the patient. The patient chooses, no pharmaceutical tx - 66464.?Wart Treatment:?Procedure?Verrucae were debrided to pin-point bleeding margins with sterile 15 surgical blade, silver nitrate chemocautery applied, recomm. immune-boosting meds such as zinc, recomm. follow up with topical chemosurgical agents, Pt defers any other forms of tx - 26857.? * Procedure Codes:?12440 DEBRI DE NAIL, 6 OR MORE, Modifiers: XS 62332 Wart Destruction, -14, Modifiers: XS * Follow Up:?prn * Images: * Sign off status: Completed true * Provider:?Alex Heart DPM Date:?2023 Generated for Rachel colmenares/Melecio/eTransmitting on:?08/06/2024 07:31 AM EDT History and Physical Notes * HPI (History [...]
--- OUTSIDE RECORDS SUMMARY | 2024-08-06 07:31 | XMS_ITS ---
Author Organization [facility] Address [address] [facility] [address] Care Team Providers Care Planning Director Name Role Phone Ahsan Carrero MD Primary Care Provider Alex Gabriel Unavailable [phone] Allergies Allergen (clinical drug ingredient) Drug/Non Drug [...] Ordered Date Performed Result Body Sit e 14024-AROWRJV NAIL, 6 OR MORE 04/05/2024 N/A 23476-Hnsq Destruction, 1-14 04/05/2024 N/A Encounters Encounter Location Date Provider Diagnosis [facility] [place] [address] [place] [address] 04/05/2024 Alexjose miguel IreneUna Tinea unguium B35.1 [...] Treatment Pending Test Test Name Order Date 04872-CLQIXXK NAIL, 6 OR MORE 04/05/2024 88474-Bxfk Destruction, 1-14 04/05/2024 Next Appt Details Follow Up: prn, Reason: Procedure Notes * Category Sub-Category Detail Notes Wart Treatment Procedure Verruca, as desc ribed in exam, were debrided to pin-point bleeding margins with sterile 15 surgical blade, silver nitrate chemocautery applied, recomm. immune-boosting meds such as zinc, recomm. follow up with topical chemosurgical agents, Pt defers any other forms of tx - 10821 Debride Nail 6-10 Nail debridement Performance o f this nail treatment by a nonprofessional would put this patients foot and overall health at risk. Therefore, debridement to affected nail(s), as described in exam, was performed extensively to reduce/remove overall nail length, girth, thickness, subungual debris, and necrotic tissue, by manual and/or electrical means through the use of a nail nipper and/or dremel-type paint grinder stone mill, to a more viable healthy nail plate [...] to maintain effectiveness in symptomatic relief - 22365 Progress Notes * Marjorie ADEN ADOB: 1955 (68 yo F)Acc No.[id number]:04/05/2024 Progress Note Patient:?Miller ADEN Ganga Provider:?Alex Heart DPM :1955???Age:68 Y???Sex:Female D ate:04/05/2024 Address:[address] [place], [place] [phone] Pcp:Ahsan Carrero MD Subjective: * Chief Complaints: [...] * Hospitalization/Major Diagno stic Procedure:?Patient went to [facility] [place] [facility] for a rash. 11/28/2012[facility] [place] [place] positive for [place] 03/2020[facility] [place] [place] - Depression 3months 12/2022[facility] [place] [place] in and out for bipolar depression, 0794-0897 * Family History:?Mother: dece ased, diagnosed with [...] - M79.672??? Plan: * Treatment: 2.?Plantar wart?Procedure: 21467-Vdsz Destruction, 1-14 * Procedures:?Debride Nail 6-10:?Nail debridement?Performance of this nail treatment by a nonprofessional would put this patients foot and overall health at risk. Therefore, debridement to affected nail(s), as described in exam, was performed extensively to reduce/remove overall nail length, girth, thickness, subungual debris, and necrotic tissue, by manual and/or electrical means through the use of a nail nipper and/or dremel-type paint grinder stone mill, to a more viable healthy nail plate [...] to maintain effectiveness in symptomatic relief - 57207.?Wart Treatment:?Procedure?Verruca, as described in exam, were debrided to pin-point bleeding margins with sterile 15 surgical blade, silver nitrate chemocautery applied, recomm. immune-boosting meds such as zinc, recomm. follow up with topical chemosurgical agents, Pt defers any other forms of tx - 07668.? * Procedure Codes:?87462 DEBRI DE NAIL, 6 OR MORE, Modifiers: XS 30782 Wart Destruction, 1-14, Modifiers: XS * Follow Up:?prn * Images: * Sign off status: Completed true * Provider:Denzel Heart DPM Date:?2023 Generated for Rachel colmenares/Melecio/Dillon on:?08/06/2024 07:30 AM EDT History and Physical Notes * [...]
--- OUTSIDE RECORDS SUMMARY | 2024-08-06 07:31 | XMS_ITS ---
Author Organization Ahsan Carrero MD Address [address] [place] [phone] Care Team Providers Care Auto Body Estimator Name Role Phone Ahsan Carrero Primary Care Provider REASON FOR VISIT PH/TCM Encounters Encounter Location Date Provider Diagnosis Ahsan Carrero MD [address] [place] [phone] 08/01/2024 Ahsan Carrero Plan Of Treatment No Information Progress Notes * Marjorie ADEN ADOB: 1955 (68 yo F)Acc No.[id number]:08/01/2024 Patient:?Miller ADEN Provider:?Ahsan Carrero MD :1955???Age:68 Y???Sex:Female D ate:08/01/2024 Address:[address] [place] [address] Subjective: * Chief Complaints: * ???1. PH/TCM. * HPI: ???Symptom(s):? patient is a 68 yo female here for transitional care management visit following recent hsopitalization, discharge summary has been reviewed and medicatins reconcilled. * Medical History:? Objective: * Vitals:? Assessment: Plan: * Treatment: * * The named appointment provid er may or may not be the originator of this progress note, and it is not deemed complete until electronically signed by the appointment provider. Sign off status: Pending * Provider:?Ahsan Carrero MD Date:?0 08/01/2024 Generated for Rachel colmenares/Melecio/Dillon on:?08/06/2024 07:31 AM EDT History and Physical Notes * HPI (History of Present Illness) Category Sub-Category Detail Notes Category Not es Symptom(s) patient is a 68 yo female here for transitional care management visit following recent hsopitalization, discharge summary has been reviewed and medicatins reconcilled
--- OUTSIDE RECORDS SUMMARY | 2024-08-06 07:31 | XMS_ITS ---
Author Organization [facility] Address [address] [place] [address] Care Team Providers Care Deicer Repairer Electric Name Role Phone Ahsan Carrero MD Primary Care Provider Alex Gabriel [phone] REASON FOR VISIT SD appt Encounters Encounter Location Date Provider Diagnosis [facility] [address] [place] [address] 07/26/2024 Alex Heart Plan Of Treatment No Information Progress Notes * Marjorie ADEN ADOB: 1955 (68 yo F)Acc No.[id number]:07/26/2024 Patient:?Miller ADEN :1955???Age:68 Y???Sex:Female Address:[address] [place] [address], [address] * * Date:?
--- OUTSIDE RECORDS SUMMARY | 2024-08-06 07:31 | XMS_ITS ---
Author Organization Ahsan Carrero MD Address [address] [place] [phone] Care Team Providers Care Emr Implementation Specialist Name Role Phone Alise Ahsan Primary Care Provider Allergies Allergen (clinical drug ingredient) Drug/Non Drug Allergy documented on EMR Reaction Allergy Type Onset Date Status sulfamethoxazole / trimethoprim Bactrim DS rash Drug Allergy Active REASON FOR VISIT 2 month Encounters Encounter Location Date Provider Diagnosis Ahsan Carrero MD [address] [place] [phone] 06/13/2024 Ahsan Carrero Plan Of Treatment No Information Progress Notes * Marjorie ADEN ADOB: 1955 (68 yo F)Acc No.[id number]:06/13/2024 Progress Notes Patient:?Miller ADEN Provider:?Ahsan Carrero MD :1955???Age:68 Y???Sex:Female D ate:06/13/2024 Address:[address] [place] [address] Subjective: * Chief Complaints: * ???1. 2 month. * ROS:?General/Constitutional:?Denies?Chills.?Denies?Fatigue.?Denies?Fever.?Denies?Headache.?ENT:?Denies?Sore throat.?Respiratory:?Denies?Cough.?Denies?Shortness of breath at rest.?Denies?Shortness of breath with exertion.?Gastrointestinal:?Denies?Diarrhea.?Denies?Nausea.? * Medical History:?colonoscopy 2008. good for 10 years; CX appt w/Dr. Narayanan (letter sent 02/01/20), Button Tufter exam 12/2014 (Dr. Chamberlain), Olanzapine is zyprexa, [...] MD Date:?0 06/13/2024 Generated for Rachel colmenares/Melecio/Joanitting on:?08/06/2024 07:31 AM EDT
--- NOTE | 2024-08-06 07:36 | PC.NURSE ---
spoke with Dr. Beard about patient's manic sx, decision for 10mg Zyprexa ODT. Patient took medication willingly
[2024-08-06 11:03] VITALS: BP 109/88; PULSE 78; RESP 16; TEMP 36.7; O2SAT 98
== END 2024-08-06 11:05 | disposition home or self-care (01) ==
PROVIDERS: Emergency Provider Emergency Medicine
DX: G31.9 Degenerative disease of nervous system, unspecified (principal); F31.9 Bipolar disorder, unspecified; F43.10 Post-traumatic stress disorder, unspecified; F12.90 Cannabis use, unspecified, uncomplicated; Z91.148 Patient's other noncompliance with medication regimen for other reason; Z87.891 Personal history of nicotine dependence
CPT/HCPCS: 36415; 80048; 80076; 80307; 83735; 83880; 85025; 99284; S9485

== ENCOUNTER 2024-08-17 22:19 | Emergency (ER) | payer MEDICARE, SELFPAY ==
[2024-08-17 22:23] VITALS: BP 136/75; PULSE 99; RESP 18; TEMP 36.3; O2SAT 99; BMI 28.9
[2024-08-17 22:42] LABS: MANUAL DIFF FLAG NO
[2024-08-17 22:43] LABS: Basophils Percent Auto 0.3 % (0-2); Eosinophils Absolute Auto 0.1 X10*3/uL (0.0-0.4); Eosinophils Percent Auto 0.5 % (0-4); Hematocrit 37.7 % (37.0-47.0); Imm Gran Abs Auto 0.03 X10*3/uL (0.00-0.03); Imm Gran Pct Auto 0.3 % (0.0-0.4); Lymphocytes Absolute Auto 1.6 X10*3/uL (1.2-4.9); Lymphocytes Percent Auto 15.3 % (20-40); Mean Corpuscular HGB Conc 31.8 g/dl (31.0-35.0); Mean Corpuscular Hemoglobin 28.2 pg (27.0-33.0); Mean Corpuscular Volume 88.7 fL (80.0-98.0); Mean Platelet Volume 8.8 fL (9.4-12.3); Monocytes Absolute Auto 0.8 X10*3/uL (0.1-1.2); Monocytes Percent Auto 7.7 % (2-11); Neutrophils Absolute Auto 7.8 x10*3/uL (2.0-8.3); Neutrophils Percent Auto 75.9 % (45-73); Platelet Count 377 X10*3/uL (160-400); Red Blood Count 4.25 X10*6/uL (4.20-5.50); Red Cell Distribution Width 13.5 % (11.0-16.0); White Blood Count 10.2 X10*3/uL (4.8-10.8)
[2024-08-17 22:59] LABS: Alanine Aminotransferase 15 U/L (0-31); Albumin Level 3.9 g/dL (3.5-5.0); Alkaline Phosphatase 112 U/L (39-117); Anion Gap 11 (12-20); Aspartate Amino Transferase 26 U/L (5-31); Bilirubin Total 0.2 mg/dL (0.0-1.0); Blood Urea Nitrogen 18 mg/dL (9-16); Calcium 9.1 mg/dL (8.4-10.2); Carbon Dioxide 28 mmol/L (22-29); Chloride 108 mmol/L (96-108); Creatinine Clr Calc Pharmacy 54.8; Estimated Glomerular Filt Rate > 60; Glucose Random 97 mg/dL (60-115); Potassium 4.5 mmol/L (3.3-5.1); Sodium 142 mmol/L (135-145)
[2024-08-17 23:05] LABS: B Type Natriuretic Peptide 36 pg/mL (<100)
--- NOTE | 2024-08-18 01:29 | PC.NURSE ---
Pt refused to loom changer to hospital attire, Pt requesting cheese stick, crackers and stay till 7am .
--- NOTE | 2024-08-18 01:59 | ED_ITS ---
HPI - General Adult General Chief complaint: Extremity Problem Stated complaint: bi lateral foot swelling Time Seen by Provider: 08/18/24 01:33 Source: patient Limitations: no limitations and other (cognitive impairment, psych illness) History of Present Illness ED Provider: Marta Engel PA-C HPI narrative: 68 y/o F with hx of depression, bipolar disorder, RADHA, neurodegenerative cognitive impairment, depression who presents emergency department for evaluation of lower extremity swelling times several months. Patient states her legs are itchy and her feet hurt. As I am trying to assess the patient, she states a I am tired and want to go home get me some cranberry juice and 4 cheese sticks?. Related Data Home Medications ?Medication ?Instructions ?Recorded ?Confirmed liothyronine 25 mcg tablet 12.5 mcg PO BID 08/06/24 08/06/24 Previous Rx's ?Medication ?Instructions ?Recorded carbamazepine 400 mg 400 mg PO BEDTIME 30 days #30 tabs 07/19/24 tablet,extended release,12 hr donepezil 5 mg tablet 5 mg PO BEDTIME 30 days #30 tabs 07/19/24 lurasidone 40 mg tablet (Latuda) 40 mg PO DAILY@1230 30 days #30 07/19/24 tabs furosemide 40 mg tablet (Lasix) 40 mg PO DAILY 7 days #7 tabs 08/01/24 Allergies Allergy/AdvReac Type Severity Reaction Status Date / Time No Known Allergies Allergy Verified 08/17/24 22:24 Review of Systems 2 Review of Systems: Yes all other systems are reviewed and are negative Constitutional: Constitutional: Denies fatigue and Denies fever(s) Cardiovascular: Cardiovascular: Denies chest pain, Reports leg edema and Denies dyspnea Respiratory: Respiratory: Denies dyspnea Endocrine: Endocrine: Denies fatigue [facility] Past Medical History Attestation statement: The following information was validated with the patient. Medical History Bipolar 1 disorder Airam RADHA (acute kidney injury) Fracture of right ulnar styloid Neurodegenerative cognitive impairment Bipolar disorder, most recent episode depressed Left ankle sprain Low back pain Acute bronchitis Left sided sciatica Depression Sore throat (viral) Surgical History Hx of colonoscopy No significant past surgical history Social History Social History Household Members: Family Household Members Other:: Housing: House Do you presently have visiting nurse or other home services: No Alcohol intake: unknown Comment: Independent Patient Tobacco Use Status: Former Tobacco user Smoked in Last 30 Days: No e-Cigarette/Vaping Use: Never Used Second Hand Smoke Exposure: No Use of substances other than those prescribed or required for medical reasons: No Substance Use Type: Marijuana Advance Directives: No Advance Directives Information Provided: Yes Do you have a plan to hurt others: No Plan service: No Sexual orientation: Straight/Heterosexual Physical Exam ED Vital Signs: Vital Signs - 24 hr 08/17/24 22:23 Temperature 97.4 F Pulse Rate 99 Respiratory Rate 18 Blood Pressure 136/75 Pulse Oximetry 99 Oxygen Delivery Method Room Air BMI result Body Mass Index 28.9 Const Other: Alert Orientation/consciousness: patient oriented x3 Resp Effort & Inspection: normal respiratory effort Cardio Other: Normal peripheral perfusion, pitting edema is chronic Skin Other: Warm dry no rash Neuro General: patient oriented x3, gait normal, no focal motor deficits and CN's II- XI intact bilaterally Extrem Other: The skin over bilateral lower extremities is thickened and dry with overlying scale, no overt erythema to suggest cellulitis, consistent with chronic venous stasis dermatitis Psych Other: A bit hostile Medical Decision Making Medical Decision Making MDM Narrative: 68 y/o F with hx of depression, bipolar disorder, RADHA, neurodegenerative cognitive impairment, depression who presents emergency department for evaluation of lower extremity swelling times several months. Patient states her legs are itchy and her feet hurt. As I am trying to assess the patient, she states a I am tired and want to go home get me some cranberry juice and 4 cheese sticks?. Problem: Chronic peripheral edema, psychiatric illness History: Per patient I have considered the following differential diagnoses: Dependent edema, cellulitis, DVT, Plan: Patient is seen frequently in the emergency department for the same complaint. Her exam was at her baseline, there was nothing acute, the legs are symmetric, I have no clinical suspicion for DVT. This is not cellulitis. Screening labs were obtained from triage. I have independently reviewed the following tests: Labs: No leukocytosis, not anemic, no electrolyte abnormality noted, BNP 36 Lab Data 08/17/24 22:36 08/17/24 22:36 Labs: Lab Results 08/17/24 Range/Units 22:36 WBC 10.2 (4.8-10.8) X10*3/uL RBC 4.25 (4.20-5.50) X10*6/uL Hgb 12.0 (12.0-16.0) g/dl Hct 37.7 (37.0-47.0) % MCV 88.7 (80.0-98.0) fL MCH 28.2 (27.0-33.0) pg MCHC 31.8 (31.0-35.0) g/dl RDW 13.5 (11.0-16.0) % Plt Count 377 (160-400) X10*3/uL MPV 8.8 L (9.4-12.3) fL Immature Gran % (Auto) 0.3 (0.0-0.4) % Neut % (Auto) 75.9 H (45-73) % Lymph % (Auto) 15.3 L (20-40) % Bent % (Auto) 7.7 (2-11) % Eos % (Auto) 0.5 (0-4) % Baso % (Auto) 0.3 (0-2) % Lymph # (Auto) 1.6 (1.2-4.9) X10*3/uL Bent # (Auto) 0.8 (0.1-1.2) X10*3/uL Eos # (Auto) 0.1 (0.0-0.4) X10*3/uL Baso # (Auto) 0.0 (0.0-0.2) X10*3/uL Abs Immat Gran (auto) 0.03 (0.00-0.03) X10*3/uL Absolute Neuts (auto) 7.8 (2.0-8.3) x10*3/uL Absolute Nucleated RBC 0.000 (0.0-0.012) X10*3/uL Nucleated RBC % (auto) 0.0 (0.0-0.2) /100WBC Sodium 142 (135-145) mmol/L Potassium 4.5 (3.3-5.1) mmol/L Chloride 108 (96-108) mmol/L Carbon Dioxide 28 (22-29) mmol/L Anion Gap 11 L (12-20) BUN 18 H (9-16) mg/dL Creatinine 0.92 (0.5-1.4) mg/dL Estim Creat Clear Calc 54.8 Estimated GFR > 60 Random Glucose 97 (60-115) mg/dL Calcium 9.1 (8.4-10.2) mg/dL Total Bilirubin 0.2 (0.0-1.0) mg/dL AST 26 (5-31) U/L ALT 15 (0-31) U/L Alkaline Phosphatase 112 (39-117) U/L B-Natriuretic Peptide 36 (<100) pg/mL Total Protein 7.0 (6.5-8.0) g/dL Albumin 3.9 (3.5-5.0) g/dL Discharge Plan Discharge Clinical Impression: Dependent edema Patient Disposition: Home, Self-Care Instructions: Leg Edema (ED) Additional Instructions: All of your screening labs were normal, your exam was unremarkable, you have chronic leg edema. As you have been told before, you should be using compression stockings all day while you are walking. When you rest, elevate your legs. Follow up with your primary care provider. Prescriptions: No Action carbamazepine 400 mg tablet extended release 12 hr 400 mg PO BEDTIME 30 Days Qty: 30 0RF donepezil 5 mg Tablet 5 mg PO BEDTIME 30 Days Qty: 30 0RF lurasidone [Latuda] 40 mg Tablet 40 mg PO DAILY@1230 30 Days Qty: 30 0RF liothyronine 25 mcg tablet 12.5 mcg PO BID furosemide [Lasix] 40 mg tablet 40 mg PO DAILY 7 Days Qty: 7 0RF Print Language: Panamanian
[2024-08-18 03:09] VITALS: BP 136/75; PULSE 99; RESP 18; TEMP 36.3; O2SAT 99
== END 2024-08-18 02:55 | disposition home or self-care (01) ==
PROVIDERS: Emergency Provider Emergency Medicine; PCP Internal Medicine
DX: R60.0 Localized edema (principal); F31.2 Bipolar disorder, current episode manic severe with psychotic features; F43.10 Post-traumatic stress disorder, unspecified; Z87.891 Personal history of nicotine dependence
CPT/HCPCS: 36415; 80053; 83880; 85025; 99283

== ENCOUNTER 2024-08-18 13:34 | Outpatient (REF) | payer MEDICARE, SELFPAY ==
[2024-08-18 14:34] LABS: TSH reflex Free T4 3.89 uIU/mL (0.32-4.0)
--- OUTSIDE RECORDS SUMMARY | 2024-08-18 16:38 | XMS_ITS | Clinical Summary ---
Author Organization [facility] Facility Address [address] [address] Care Team Providers Care Plywood And Veneer Repairer Name Role Phone Unavailable Primary Care Provider [...] Colorectal Cancer Screening: Sigmoidoscopy 2002 Pneumococcal Vaccine: 50+ Ye ars (1 of 1 - PCV) 10/22/2003 Influenza Vaccine (Season Ended) 2025 Hepatitis B Vaccine Aged Out No longe r eligible based on patient's age to complete this topic
== END 2024-08-18 13:35 | disposition home or self-care (01) ==
LOC: HO.LNP 13:34
PROVIDERS: Visit Provider Internal Medicine
DX: Z13.89 Encounter for screening for other disorder (principal)
CPT/HCPCS: 84443

== ENCOUNTER 2024-08-18 14:39 | Outpatient (REF) | payer MEDICARE, SELFPAY ==
--- NOTE | ~2024-08-18 | US_ITS ---
EXAMINATION: US TRIPLEX LOWER EXTREMITY, BILATERAL CLINICAL INFORMATION: Leg edema. COMPARISON: None available. TECHNIQUE: Color-flow triplex imaging with spectral analysis and compression Doppler were performed on the bilateral lower extremities. FINDINGS: Respiratory variation, normal compression and augmented flow are noted throughout the bilateral lower extremities. The visualized common femoral vein, superficial femoral vein, profunda femoral vein, popliteal vein and midcalf peroneal and posterior tibial venous segments show no evidence of deep venous thrombosis bilaterally. There is no Tellez's cyst. US/US venous duplex LE BI IMPRESSION: No evidence of deep venous thrombosis involving the bilateral lower extremities. Electronically signed by: Nas Gutiérrez MD 08/18/2024 04:02 PM EDT
--- OUTSIDE RECORDS SUMMARY | 2024-08-18 17:34 | XMS_ITS | Clinical Summary ---
Author Organization [facility] Facility Address [address] [address] Care Team Providers Care Team Facilitator Name Role Phone Unavailable Primary Care Provider [...]
== END 2024-08-18 14:40 | disposition home or self-care (01) ==
LOC: HO.US 14:39
PROVIDERS: PCP Internal Medicine; Visit Provider Internal Medicine
DX: R60.0 Localized edema (principal)
CPT/HCPCS: 93970

== ENCOUNTER → 2024-08-18 15:15 | Outpatient (BNV) | payer MEDICARE, SELFPAY | PROVIDERS: PCP Internal Medicine; Visit Provider Radiology Diagnostic Radiology | DX: R60.0 Localized edema (principal) | CPT/HCPCS: 93970 ==

== ENCOUNTER 2024-08-22 09:12 | Outpatient (REF) | payer MEDICARE, SELFPAY ==
--- NOTE | ~2024-08-22 | XR_ITS ---
CLINICAL HISTORY: J06.9 - Acute upper respiratory infection, unspecified --- Additional Notes or Spec ial Instructions: 68 y o Female patient with coughing and wheezing x 4 days. 2 view chest x-ray Comparison: None Findings: No consolidation. There is mild blunting of the right costophrenic angle. Normal size heart. No acute fracture. IMPRESSION: No consolidation. Mild blunting of the right costophrenic angle could represent small pleural effusion, atelectatic change or scarring. This document has been electronically signed by: Adi Beckett MD on 08/22/2024 17:11:12
[2024-08-22 14:46] LABS: Influenza A PCR NEGATIVE (Negative); Influenza B PCR NEGATIVE (Negative); Resp Syncy Virus RNA Qual PCR NEGATIVE (Negative); SARS COV2 PCR INHOUSE NEGATIVE (Negative)
== END 2024-08-22 09:13 | disposition home or self-care (01) ==
LOC: HO.HMGCX 09:12
PROVIDERS: PCP Internal Medicine; Visit Provider Nurse Practitioner Family
DX: J06.9 Acute upper respiratory infection, unspecified (principal); R05.9 Cough, unspecified
CPT/HCPCS: 0241U; 71046; 87880; 99212

== ENCOUNTER 2024-08-22 09:12 | Outpatient (AMB) | payer MEDICARE, SELFPAY ==
--- NOTE | 2024-08-22 09:17 | AM.OFFWIN_ITS ---
Intake Vital Signs 08/22/24 09:20 Weight 161 lb BP 140/90 H Blood Pressure Location Lt brachial Position Sitting Pulse 98 Pulse Source Pulse Oximeter Temp 98.3 F Temp Source Oral Pulse Oximetry (%) 97 Oxygen Delivery Method Room Air Intake Visit Reasons: EP Cough, sore throat Intake Note: Patient here for cough and sore throat that has been present for about 4 days. Patient Tobacco Use Status: Former Tobacco user Allergies No Known Allergies Allergy (Verified 08/22/24 09:20) Do you need a note to return to daycare/school/sports/work: No HPI HPI Comments History of Present Illness Details 68 y/o Female patient who presents to [facility] walk in clinic with c/o Sore- throat and cough for 4 days now. Pt was recently admitted [facility] due B/L peripheral Edema. [facility] Medical History (Updated 08/22/24 @ 09:34 by Genet Terry NP) Cough Acute respiratory disease Noncompliance with medications Depression Bipolar 1 disorder Airam RADHA (acute kidney injury) Fracture of right ulnar styloid Neurodegenerative cognitive impairment Bipolar disorder, most recent episode depressed Left ankle sprain Low back pain Acute bronchitis Left sided sciatica Depression Sore throat (viral) Surgical History Hx of colonoscopy No significant past surgical history Social History Household Members: Family Household Members Other:: Housing: House Do you presently have visiting nurse or other home services: No Alcohol intake: unknown Comment: Independent Patient Tobacco Use Status: Former Tobacco user e-Cigarette/Vaping Use: Never Used Second Hand Smoke Exposure: No Substance Use Type: Marijuana service: No Sexual orientation: Straight/Heterosexual Review of Systems Const All systems reviewed & are unremarkable except as noted in HPI and below Physical Exam Vital Signs: Last Vital Signs Temp 98.3 F 08/22/24 09:20 Pulse 98 08/22/24 09:20 BP 140/90 H 08/22/24 09:20 Pulse Ox 97 08/22/24 09:20 Oxygen Delivery Method Room Air 08/22/24 09:20 Const General: no acute distress Orientation/consciousness: patient oriented x3 HEENT Head: Yes normocephalic Ears: external ears normal and TM's normal bilaterally General nose exam: Nasal discharge present Face and sinus: Yes sinuses nontender Mouth: moist mucous membranes and Abnormal oral and palatal mucosa present erythematous Throat: Yes uvula midline and Yes abnormal tonsil (Tonsils +2 enlarged.) Resp Effort & Inspection: normal respiratory effort, able to speak in complete sentences and no audible wheezes Auscultation: no crackles, no rales, no rhonchi and wheezes inspiratory wheezes and left upper Cardio Heart sounds: S1 normal heart sound present and S2 normal heart sound present Neuro General: patient oriented x3, gait normal and moves all extremities Assessment & Plan Assessment & Plan (1) Acute respiratory disease: Code(s): J06.9 - Acute upper respiratory infection, unspecified Plan: Ordered SARs Ordered Chest Xray Ordered Z-Pack Rest and hydrate well with warm fluids. Acetaminophen for pain relief. (2) Cough: Code(s): R05.9 - Cough, unspecified Qualifiers: Cough type: acute Qualified Code(s): R05.1 - Acute cough Plan: Ordered SARs Ordered Chest Xray Ordered Z-Pack Rest and hydrate well with warm fluids. Acetaminophen for pain relief. Orders: Orders XR chest 2V Today J06.9 - Acute upper respiratory infection, unspecified, R05.9 - Cough, unspecified SARS-CoV2/FLU/RSV Today J06.9 - Acute upper respiratory infection, unspecified Medications: New azithromycin 500 mg PO DAILY 3 tabs 0RF 3 days J06.9 - Acute upper respiratory infection, unspecified, R05.9 - Cough, unspecified prednisone 20 mg PO DAILY 5 tabs 0RF 5 days J06.9 - Acute upper respiratory infection, unspecified, R05.9 - Cough, unspecified dextromethorphan polistirex ER (Delsym 12 hour) 10 mL PO Q12H 89 mL 0RF cough R05.1 - Acute cough Coding Level of Care Code Est Pt Level 4 (70670) Diagnoses Acute respiratory disease J06.9 Acute cough R05.1 Cough type: acute Time Spent (min) 20
--- OUTSIDE RECORDS SUMMARY | 2024-08-22 09:19 | XMS_ITS | Clinical Summary ---
Author Organization [facility] Facility Address [address] [address] Care Team Providers Care Neighborhood Aide Name Role Phone Unavailable Primary Care Provider [...]
[2024-08-22 09:20] VITALS: BP 140/90; PULSE 98; TEMP 36.8; O2SAT 97
== END 2024-08-22 09:51 | disposition home or self-care (01) ==
PROVIDERS: PCP Internal Medicine; Visit Provider Nurse Practitioner Family
DX: J06.9 Acute upper respiratory infection, unspecified (principal); R05.1 Acute cough; Z13.9 Encounter for screening, unspecified

== ENCOUNTER 2024-08-22 09:33 | Outpatient (REF) | payer MEDICARE, SELFPAY | END 2024-08-22 09:34 | disposition home or self-care (01) | LOC: HO.LAB 09:33 | PROVIDERS: Visit Provider Nurse Practitioner Family | DX: Z13.89 Encounter for screening for other disorder (principal) ==

== ENCOUNTER → 2024-08-22 09:37 | Outpatient (BNV) | payer MEDICARE, SELFPAY | PROVIDERS: PCP Internal Medicine; Visit Provider Nuclear Medicine | DX: J06.9 Acute upper respiratory infection, unspecified (principal); J90 Pleural effusion, not elsewhere classified | CPT/HCPCS: 71046 ==

== ENCOUNTER → 2024-08-27 14:17 | Outpatient (AMB) | payer MEDICARE, SELFPAY ==
--- OUTSIDE RECORDS SUMMARY | 2024-08-27 14:19 | XMS_ITS ---
Author Organization [facility] Address [address] [place] [address] Care Team Providers Care Blow Down Operator Name Role Phone Ahsan Carrero MD Primary Care Provider Alex Gabriel [phone] REASON FOR VISIT SD appt Encounters Encounter Location Date Provider Diagnosis [facility] [address] [place] [address] 07/26/2024 [facility] Plan Of Treatment No Information Progress Notes * Marjorie ADEN ADOB: 1955 (68 yo F)Acc No.[id number]:07/26/2024 Patient:?Miller ADEN :1955???Age:68 Y???Sex:Female Address:[address] [place] [address], [id number] * true * Date:? Generated for Rajii darrian/Melecio/eTransmitting on:?08/27/2024 02:19 PM EDT
--- OUTSIDE RECORDS SUMMARY | 2024-08-27 14:19 | XMS_ITS | Patient Health Record ---
[facility] Organization [facility] [place] Address [address] [place] [address] Care Team Providers Care Healthcare Account Manager Name Role Phone Ahsan Carrero MD Primary Care Provider Alex Gabriel Unavailable [phone] Allergies Allergen (clinical drug ingredient) Drug/Non Drug Allergy documented on EMR Reaction Allergy Type Onset Date Status sulfamethoxazole / trimethoprim Bactrim rash Drug Allergy Active Reason For Referral No Information Medications Medication SIG (Take, Route, Frequency, Duration) Notes Start Date End Date Status OLANZapine 10 MG as directed Orally O nce a day Not-Taking ARIPiprazole 10 MG 1 tablet Orally Once a day for 30 day(s) Not-Taking Multi Vitamin Daily Not-Taking lamoTRIgine 100 MG 1 tablet Orally Once a day for 30 day(s) Not-Taking Ibuprofen 100 MG Orally once a day Not-Taking Calcium Not-Taking Biotin Not-Taking Atorvastatin Calcium 10 MG Oral for 90 Not-Taking Vraylar 1.5 MG as directed Orally O nce a day Not-Taking buPROPion HCl 300 Orally No t-Taking Immunizations Vaccine Route Administration Date Status Comme nts COVID-19 Ricardo & Ricardo/Isreal Unknown 07/23/2021 R efused Social History Tobacco Use: Social History Observation Description Date Details (start date - stop date) Never Smoker NA - NA Tobacco Use/Smoking Question Answer Notes Are you a: nonsmoker Additional Findings: Tobacco Non-User Current no n-smoker Tobacco use other than smoking: Question Answer Notes Are you an other tobacco user? No Problems Problem Type SNOMED Code ICD Code Onset Dates Problem Status W/U Status Risk Notes Problem Plantar wart (35254430) Plantar wart (B07.0) Active confirmed Chronic Problem Onychomycosis (683773692) Tinea unguium (B35.1) Active confirmed Vital Signs Blood pressure diastolic 70 mm Hg 08/12/2024 Height 5ft3.5in in 08/12/2024 Blood pressure systolic 120 mm Hg 08/12/2024 Weight 155 lbs 08/12/2024 BMI 27.02 kg/m2 08/12/2024 Procedures Procedure Date Ordered Date Performed Result Body Sit e 34774-TTKAXAT NAIL, 6 OR MORE 01/07/2024 N/A 68852-Fjdv Destruction, 1-14 01/07/2024 N/A 16969-WTVJIEM NAIL, 6 OR MORE 04/05/2024 N/A 00754-Mgqi Destruction, 1-04/05/2024 N/A 70420-Bhdg Destruction, 1-14 08/12/2024 N/A 81797-MKMHMQJ NAIL, 6 OR MORE 08/12/2024 N/A Encounters Encounter Location Date Provider Diagnosis [facility] [address] [place] [address] 01/07/2024 Alex Una Tinea unguium B35.1 ; Pain in right toe(s) M79.674 ; Pain in left toe(s) M79.675 ; Right foot pain M79.671 ; Plantar wart B07.0 and Left foot pain M79.672 [facility] [address] 04/05/2024 Alex Una Tinea unguium B35.1 ; Pain in right toe(s) M79.674 ; Pain in left toe(s) M79.675 ; Right foot pain M79.671 ; Plantar wart B07.0 and Left foot pain M79.672 [facility] [address] 08/12/2024 Alex Una Tinea unguium B35.1 ; Pain in right toe(s) M79.674 ; Pain in left toe(s) M79.675 ; Right foot pain M79.671 ; Plantar wart B07.0 and Left foot pain M79.672 [facility] [address] [address] 01/05/2024 Alex Heart [facility] [address] 01/07/2024 Alex Heart [facility] [address] 07/26/2024 Alex Heart Assessments Encounter Date Diagnosis (ICD Code) Assessment Notes Treatment Notes Treatment Clinical Notes Section Notes 01/07/2024 Tinea unguium (ICD-10 - B35.1) 01/07/2024 Pain in right toe(s) (ICD-10 - M79.674) 08/12/2024 Tinea unguium (ICD-10 - B35.1) 08/12/2024 Pain in right toe(s) (ICD-10 - M79.674) 04/05/2024 Tinea unguium (ICD-10 - B35.1) 04/05/2024 Pain in right toe(s) (ICD-10 - M79.674) 04/05/2024 Pain in left toe(s) (ICD-10 - M79.675) 08/12/2024 Pain in left toe(s) (ICD-10 - M79.675) 01/07/2024 Pain in left toe(s) (ICD-10 - M79.675) 01/07/2024 Right foot pain (ICD-10 - M79.671) 08/12/2024 Right foot pain (ICD-10 - M79.671) 04/05/2024 Right foot pain (ICD-10 - M79.671) 04/05/2024 Plantar wart (ICD-10 - B07.0) 08/12/2024 Plantar wart (ICD-10 - B07.0) 01/07/2024 Plantar wart (ICD-10 - B07.0) 01/07/2024 Left foot pain (ICD-10 - M79.672) 08/12/2024 Left foot pain (ICD-10 - M79.672) 04/05/2024 Left foot pain (ICD-10 - M79.672) Plan Of Treatment Pending Test Test Name Order Date 17040-BOZDKPH NAIL, 6 OR MORE 06/03/2011 91430-MSIKERL NAIL, 6 OR MORE 09/16/2011 46512-IVFVITP NAIL, 6 OR MORE 12/09/2011 33785-HKSUIIL NAIL, 6 OR MORE 03/02/2012 36793-LFJFKJM NAIL, 6 OR MORE 06/01/2012 39872-VTYTYUA NAIL, 6 OR MORE 09/14/2012 59239-CTBRINQ NAIL, 6 OR MORE 12/03/2012 41963-TBGOYER NAIL, 6 OR MORE 03/08/2013 90627-YXHQPMS NAIL, 6 OR MORE 08/23/2013 70680-VSLKSNR NAIL, 6 OR MORE 10/04/2013 68405-VAYIWLL NAIL, 6 OR MORE 11/22/2013 03533-PVIQHLG NAIL, 6 OR MORE 01/31/2014 40016-OMSMEXG NAIL, 6 OR MORE 03/07/2014 36788-EKJMJRZ NAIL, 6 OR MORE 05/23/2014 49827-FTFRTBW NAIL, 6 OR MORE 07/04/2014 83454-NTYKPFP NAIL, 6 OR MORE 08/15/2014 57457-WMEMBKM NAIL, 6 OR MORE 09/26/2014 36976-EGYBGSQ NAIL, 6 OR MORE 12/05/2014 41227-SGNXIQV NAIL, 6 OR MORE 01/23/2015 70567-DQTAUVZ NAIL, 6 OR MORE 03/06/2015 62466-MXAIQXG NAIL, 6 OR MORE 04/10/2015 34539-XJQGXEX NAIL, 6 OR MORE 05/15/2015 97515-FSSMBAG NAIL, 6 OR MORE 09/18/2015 29449-BBGEQFQ NAIL, 6 OR MORE 10/30/2015 48344-SRTZBTJ NAIL, 6 OR MORE 12/07/2015 95608-AYDXNMR NAIL, 6 OR MORE 08/19/2016 74271-RMBXTVZ NAIL, 6 OR MORE 11/07/2016 75931-XUZJHKG NAIL, 6 OR MORE 03/10/2017 16791-IBNFRWI NAIL, 6 OR MORE 06/26/2017 89338-KWFTEEQ NAIL, 6 OR MORE 09/29/2017 11328-CQSZJCM NAIL, 6 OR MORE 12/08/2017 37678-ALKRQWU NAIL, 6 OR MORE 06/08/2018 35277-DRDONER NAIL, 6 OR MORE 09/07/2018 63736-HIIYZLY NAIL, 6 OR MORE 02/01/2019 91533-FOLOQLD NAIL, 6 OR MORE 06/21/2019 32096-VGBRCBD NAIL, 6 OR MORE 09/20/2019 86838-WTRRIEU NAIL, 6 OR MORE 12/13/2019 51830-AJCOHAS NAIL, 6 OR MORE 03/06/2020 87469-WAFJRXX NAIL, 6 OR MORE 05/08/2020 30480-HZGIFYR NAIL, 6 OR MORE 07/13/2020 71559-OMXNZSJ NAIL, 6 OR MORE 01/22/2021 39149-WKZBLWL NAIL, 6 OR MORE 05/08/2021 94407-HBRLEEB NAIL, 6 OR MORE 07/23/2021 90148-YVRDJKO NAIL, 6 OR MORE 06/02/2022 14931-XHYMWFH NAIL, 6 OR MORE 10/03/2022 32628-LVPPNCC NAIL, 6 OR MORE 03/06/2023 35314-MIHWZVH NAIL, 6 OR MORE 01/07/2024 00319-BMQZRVG NAIL, 6 OR MORE 08/12/2024 46730-RQUXDCG NAIL, 6 OR MORE 04/05/2024 13987-ZDHNOQS NAIL, 6 OR MORE 02/16/2018 57608-VIDXYZW NAIL, 6 OR MORE 05/27/2016 19046-ZRCKYNI NAIL, 6 OR MORE 03/04/2016 89216-BSHJNVQ NAIL, 6 OR MORE 10/31/2014 81782-VTESOGN NAIL, 6 OR MORE 07/05/2013 30522-ZOAVMXF NAIL, 6 OR MORE 05/31/2013 60558-OZTKKYF NAIL, 6 OR MORE 11/06/2020 21821-KMPDDBN NAIL, 6 OR MORE 02/11/2011 19023-NLPIYRJ NAIL, 6 OR MORE 04/01/2022 07390-WNTROSK NAIL, 6 OR MORE 01/10/2022 29087-Bfse Destruction, 1-14 01/10/2022 36952-Xrsa Destruction, 1-14 04/01/2022 40993-Anrd Destruction, 1-14 11/06/2020 02878-Krut Destruction, 1-14 02/11/2011 15885-Zqxo Destruction, 1-14 02/16/2018 54064-Zapb Destruction, 05-1705/31/2013 11597-Bipx Destruction, 05-1710/26/2012 75945-Uevg Destruction, 05-1707/05/2013 09751-Hcxv Destruction, 05-1710/31/2014 75872-Xant Destruction, 05-1703/04/2016 30873-Oteu Destruction, 05-1706/26/2015 11480-Vcgp Destruction, 05-1705/27/2016 80107-Rqrp Destruction, 05-1712/12/2016 41758-Iovk Destruction, 05-1704/05/2024 88620-Xmxb Destruction, 05-1708/12/2024 90881-Eolc Destruction, 05-1707/20/2018 64405-Gvee Destruction, 05-1701/07/2024 98568-Bllp Destruction, 05-1703/06/2023 77714-Wwcf Destruction, 05-1707/21/2023 10231-Dlxn Destruction, 05-1710/03/2022 95361-Swlg Destruction, 05-1706/02/2022 09401-Godp Destruction, 05-1705/08/2021 98638-Udfx Destruction, 05-1707/23/2021 76273-Jptv Destruction, 05-1703/06/2020 42629-Ucuy Destruction, 05-1701/22/2021 01115-Nphc Destruction, 05-1707/13/2020 38314-Ieud Destruction, 05-1709/11/2020 25603-Fcra Destruction, 05-1711/23/2020 98011-Tuft Destruction, 05-1705/08/2020 16240-Ljhw Destruction, 05-1706/19/2020 63274-Flwi Destruction, 05-1712/13/2019 43738-Asaq Destruction, 05-1701/24/2020 70578-Ueki Destruction, 05-1709/20/2019 90364-Xocu Destruction, 05-1711/01/2019 20123-Erft Destruction, 05-1706/21/2019 67375-Zvng Destruction, 05-1708/02/2019 34453-Mnik Destruction, 05-1706/08/2018 11997-Iuif Destruction, 05-1702/01/2019 84583-Ovjt Destruction, 05-1709/07/2018 34062-Iukq Destruction, 05-1710/12/2018 51882-Wtob Destruction, 05-1703/30/2018 72095-Dlup Destruction, 05-1706/26/2017 84918-Srbr Destruction, 05-1712/08/2017 54897-Mjkd Destruction, 05-1711/03/2017 86750-Ytur Destruction, 05-1708/18/2017 53122-Uokt Destruction, 05-1709/29/2017 48183-Kxnb Destruction, 05-1705/05/2017 50474-Bbxp Destruction, 05-1703/10/2017 14587-Exyc Destruction, 05-1708/19/2016 55986-Qwmz Destruction, 05-1709/23/2016 59287-Aroz Destruction, 05-1711/07/2016 37530-Ztgb Destruction, 05-1712/07/2015 55927-Nazu Destruction, 05-1701/08/2016 74333-Fspd Destruction, 05-1704/15/2016 06985-Dboe Destruction, 05-1707/08/2016 69023-Bnig Destruction, 05-1710/30/2015 92735-Qcie Destruction, 05-1709/18/2015 82557-Asny Destruction, 05-1705/15/2015 31130-Tsiz Destruction, 05-1707/31/2015 77145-Hzjo Destruction, 05-1704/10/2015 29057-Cxed Destruction, 05-1703/06/2015 29981-Jyvq Destruction, 05-1701/23/2015 30403-Mytw Destruction, 05-1712/05/2014 70769-Phol Destruction, 05-1709/26/2014 50862-Cpxc Destruction, 05-1708/15/2014 29603-Caox Destruction, 05-1707/04/2014 29967-Yfhu Destruction, 05-1705/23/2014 80102-Ijcr Destruction, 05-1703/07/2014 03363-Kkfe Destruction, 05-1701/31/2014 11551-Qqtu Destruction, 05-1711/22/2013 33486-Blov Destruction, 05-1710/04/2013 55180-Cdmw Destruction, 05-1708/23/2013 98489-Ixkq Destruction, 05-1703/08/2013 93807-Eneo Destruction, 05-1702/01/2013 45135-Wmjo Destruction, 05-1712/03/2012 13111-Nbup Destruction, 05-1706/01/2012 74196-Hfks Destruction, 05-1707/27/2012 38342-Odwa Destruction, 05-1709/14/2012 34605-Yfwx Destruction, 05-1703/02/2012 09545-Npek Destruction, 05-1704/13/2012 26439-Fojn Destruction, 05-1712/09/2011 03441-Cphh Destruction, 05-1709/16/2011 65984-Aalm Destruction, 05-1710/28/2011 17833-Ccby Destruction, 05-1706/03/2011 21792-Vpal Destruction, 05-1707/22/2011 63183-Neur Destruction, 05-1712/31/2010 44872-Hhbu Destruction, 05-1704/08/2011 52226-Cadlvofb Plate 08/19/2016 12494-Ulbffygi Plate 06/26/2017 84236-Pzyfsbrm Plate 06/08/2018 10436-Orehydhv Plate 09/07/2018 90100-Nxncplmh Plate 02/01/2019 08707-Dopkrzfq Plate 06/21/2019 83523-Uqijhjzb Plate 09/20/2019 70714-Zbqzgqdc Plate 12/13/2019 68629-Ybvndtum Plate 07/13/2020 55577-Mqgyeyhp Plate 05/08/2020 87796-Jyrhsiqr Plate 03/06/2020 81783-Hmljvztq Plate 01/22/2021 94749-Phwbmiof Plate 05/08/2021 36043-Wtpunuqs Plate 07/23/2021 46078-Vhfullcj Plate 10/03/2022 16724-Jaehjkgs Plate 02/16/2018 99494-Dmtlbfwf Plate 05/27/2016 75949-Qlqmvtwm Plate 11/06/2020 81927-Imrjuqro Plate 01/10/2022 83342- Debride <25 sq cm 10/31/2014 05621- Debride <25 sq cm 07/05/2013 37694- Debride <25 sq cm 10/26/2012 75173- Debride <25 sq cm 05/31/2013 42626- Debride <25 sq cm 04/13/2012 11018- Debride <25 sq cm 05/15/2015 67005- Debride <25 sq cm 05/23/2014 15288- Debride <25 sq cm 07/04/2014 11014- Debride <25 sq cm 08/15/2014 22707- Debride <25 sq cm 09/26/2014 86091- Debride <25 sq cm 12/05/2014 90315- Debride <25 sq cm 01/23/2015 39104- Debride <25 sq cm 03/06/2015 80584- Debride <25 sq cm 04/10/2015 75848- Debride <25 sq cm 12/03/2012 23986- Debride <25 sq cm 02/01/2013 94477- Debride <25 sq cm 03/08/2013 32640- Debride <25 sq cm 08/23/2013 44876- Debride <25 sq cm 10/04/2013 57861- Debride <25 sq cm 11/22/2013 47556- Debride <25 sq cm 01/31/2014 35842- Debride <25 sq cm 03/07/2014 58231-UFFTMVB SKIN/TISSUE 04/13/2012 96776 - Tenotomy, open flexor 11/17/2017 Insurance Providers Payer Name Payer Address Payer Phone Subscriber Number Group Number Insured Name Patient Relationship to Insured Coverage Start Date Coverage End Date Medicare [employer] [address] [place] [phone] [id number] Marjorie Ghotra Self - patient is the insured Med Blue [facility] [address] [place] [address] [phone] [id number] Marjorie Ghotra Self - patient is the insured Medical (General) History Medical History History ICD Code measles chickenpox shingles anxiety Bipolar disorder 1 chronic bladder infections Hypercholesterolemia Surgical History Surgery Date(Month/Year) breast cyst removal 1980 Hospitalization History Reason Date(Month/Year) [facility]- in and out for bipolar depression, 7118-3700 [facility] [place] 12/20[place] [facility] 03/2020 Patient went to [facility] [place] for a rash. 11/28
--- OUTSIDE RECORDS SUMMARY | 2024-08-27 14:19 | XMS_ITS | Clinical Summary ---
Author Organization [facility] Address [address] [address] Care Team Providers Care Special Needs Bus Driver Name Role Phone Unavailable Primary Care Provider [...]
--- OUTSIDE RECORDS SUMMARY | 2024-08-27 14:19 | XMS_ITS ---
Author [facility] Address [address] [place] [address] Care Team Providers Care Director [place] Name Role Phone Ahsan Carrero MD Primary Care Provider Alex Gabriel Unavailable [phone] Allergies Allergen (clinical drug ingredient) Drug/Non Drug [...] an other tobacco user? No Vital Signs Height 5ft 3.5in in 04/05/2024 Weight 155 lbs 04/05/2024 BMI 27.02 kg/m2 04/05/2024 Blood pressure systolic 120 mm Hg 04/05/20 24 Blood pressure diastolic 70 mm Hg 024 Procedures Procedure Date Ordered Date Performed Result Body Sit e 28181-GSRQUGI NAIL, 6 OR MORE 04/05/2024 N/A 04869-Srjs Destruction, 1-14 04/05/2024 N/A Encounters Encounter Location Date Provider Diagnosis [facility] [place] [address] [place] [address] 04/05/2024 Alexjose miguel IreneUna Tinea unguium B35.1 [...] Treatment Pending Test Test Name Order Date 61504-SADRGFO NAIL, 6 OR MORE 04/05/2024 11852-Flyk Destruction, 1-14 04/05/2024 Next Appt Details Follow Up: prn, Reason: Procedure Notes * Category Sub-Category Detail Notes Wart Treatment Procedure Verruca, as desc ribed in exam, were debrided to pin-point bleeding margins with sterile 15 surgical blade, silver nitrate chemocautery applied, recomm. immune-boosting meds such as zinc, recomm. follow up with topical chemosurgical agents, Pt defers any other forms of tx - 45631 Debride Nail 6-10 Nail debridement Performance o f this nail treatment by a nonprofessional would put this patients foot and overall health at risk. Therefore, debridement to affected nail(s), as described in exam, was performed extensively to reduce/remove overall nail length, girth, thickness, subungual debris, and necrotic tissue, by manual and/or electrical means through the use of a nail nipper and/or dremel-type sand mill grinder, to a more viable healthy nail [...] to maintain effectiveness in symptomatic relief - 90797 Progress Notes * Marjorie ADEN ADOB: 1955 (68 yo F)Acc No.[id number]:04/05/2024 Progress Note Patient:?Miller ADEN Ganga Provider:?Alex Heart DPM :1955???Age:68 Y???Sex:Female D ate:04/05/2024 Address:[address] [place], [place] [id number] Pcp:Ahsan Carrero MD Subjective: * Chief Complaints: [...] * Hospitalization/Major Diagno stic Procedure:?Patient went [place] [facility] [place]. 11[place]28[place] 03[place] [place] Depression 3months 12/2022[facility] and [place] for bipolar depression, 9614-1549 * Family History:?Mother: dece ased, diagnosed with [...] MG Tablet Oral Not-Taking/PRN Biotin Not-Taking/PRN Calcium Not- Taking/PRN Ibuprofen 100 MG Tablet Orally once a day Not-Taking/PRN lamoTRIgine 100 MG Tablet 1 tablet Orally Once a day Not-Taking/PRN Multi Vitamin Daily Not-Taking/PRN ARIPiprazole 10 MG Tablet 1 tablet Orally Once a day Not-Taking/PRN OLANZapine 10 MG Tablet as directed Orally [...] - M79.672??? Plan: * Treatment: 2.?Plantar wart?Procedure: 48918-Flcr Destruction, 1-14 * Procedures:?Debride Nail 6-10:?Nail debridement?Performance of this nail treatment by a nonprofessional would put this patients foot and overall health at risk. Therefore, debridement to affected nail(s), as described in exam, was performed extensively to reduce/remove overall nail length, girth, thickness, subungual debris, and necrotic tissue, by manual and/or electrical means through the use of a nail nipper and/or dremel-type sand mill grinder, to a more viable healthy nail [...] to maintain effectiveness in symptomatic relief - 31301.?Wart Treatment:?Procedure?Verruca, as described in exam, were debrided to pin-point bleeding margins with sterile 15 surgical blade, silver nitrate chemocautery applied, recomm. immune-boosting meds such as zinc, recomm. follow up with topical chemosurgical agents, Pt defers any other forms of tx - 23046.? * Procedure Codes:?71538 DEBRI DE NAIL, 6 OR MORE, Modifiers: XS 99050 Wart Destruction, 1-14, Modifiers: XS * Follow Up:?prn * Images: * Sign off status: Completed true * Provider:Denzel Heart DPM Date:?2023 Generated for Rachel colmenares/Melecio/Dillon on:?08/27/2024 02:19 PM EDT History and Physical Notes * HPI [...]
[2024-08-27 14:21] VITALS: BP 122/80; PULSE 83; RESP 16; TEMP 36.3; O2SAT 99; BMI 28.3
--- NOTE | 2024-08-27 14:21 | MHC.OFFWIV ---
Intake Vital Signs 08/27/24 14:21 Height 5 ft 3 in Weight 160 lb BMI 28.3 BP 122/80 Blood Pressure Location Lt brachial Position Sitting Respiration 16 Pulse 83 Pulse Source Pulse Oximeter Temp 97.4 F Temp Source Oral Pulse Oximetry (%) 99 Oxygen Delivery Method Room Air Intake Visit Reasons: EP-UTI? Intake Note: Pt is here today c/o incontinence urinating was seen on 08/22 for UTI given abx and finished Patient Tobacco Use Status: Former Tobacco user Allergies No Known Allergies Allergy (Verified 08/27/24 14:28) HPI EP-UTI? HPI Details Patient presents with pain at bilateral thighs and groin. Also notes ongoing urinary incontinence with burning on thighs when she loses urine. Denies fevers or chill Denies urethral burning or dysuria. [facility] Medical History (Updated 08/27/24 @ 15:21 by Isiah Montanez MD) Cough Acute respiratory disease Noncompliance with medications Depression Bipolar 1 disorder Airam RADHA (acute kidney injury) Fracture of right ulnar styloid Neurodegenerative cognitive impairment Bipolar disorder, most recent episode depressed Left ankle sprain Low back pain Acute bronchitis Left sided sciatica Depression Sore throat (viral) Surgical History Hx of colonoscopy No significant past surgical history Social History Household Members: Family Household Members Other:: Housing: House Do you presently have visiting nurse or other home services: No Alcohol intake: unknown Comment: Independent Patient Tobacco Use Status: Former Tobacco user e-Cigarette/Vaping Use: Never Used Second Hand Smoke Exposure: No Substance Use Type: Marijuana service: No Sexual orientation: Straight/Heterosexual Review of Systems Const Denies chills, Denies fatigue, Denies fever(s), Denies headache(s) and Denies weakness ENT Denies dizziness and Denies headache(s) Card Denies dyspnea Resp Denies cough, Denies dyspnea, Denies wheezing and Denies other ( shortness of breath) Details: See HPI Musc Denies numbness and Denies tingling Skin/Breast Details: See HPI Neuro Denies dizziness, Denies headache(s), Denies numbness, Denies tingling, Denies paresthesias and Denies weakness Psych Denies anxiety and Denies depression Endo Denies fatigue Aller/Immun Denies wheezing Physical Exam Vital Signs: Last Vital Signs Temp 97.4 F 08/27/24 14:21 Pulse 83 08/27/24 14:21 Resp 16 08/27/24 14:21 BP 122/80 08/27/24 14:21 Pulse Ox 99 08/27/24 14:21 Oxygen Delivery Method Room Air 08/27/24 14:21 BMI result Body Mass Index 28.3 Const General: no acute distress and well developed Nutritional Appearance: well nourished Orientation/consciousness: patient oriented x3 HEENT Head: Yes normocephalic and Yes atraumatic Eyes General: appearance normal, both eyes and all related structures Pupils: Equal, round and reactive pupils present EOM: EOMs intact bilaterally Resp Effort & Inspection: normal respiratory effort Auscultation: clear to auscultation bilaterally Cardio Rate: regular rate Rhythm: regular rhythm Heart sounds: S1 normal heart sound present, S2 normal heart sound present, no gallops, no murmurs and no rubs Other: No CVA TTP Skin Other: Erythema with raised edge in groin and mild scale Larger erythematous region of thighs bilaterally. Neuro General: patient oriented x3 and gait normal Cranial nerves: Yes Equal, round and reactive pupils present Psych Affect: normal affect Results AMB Urinalysis, Automated UA Leukoctes 70 Mariam/uL Last Edit by Monse Malagon CMA on 08/27/24 14:36 UA Nitrite Negative Last Edit by Monse Malagon CMA on 08/27/24 14:36 UA Urobilinogen 0.2 mg/dL Last Edit by Monse Malagon CMA on 08/27/24 14:36 UA Protein 0 mg/dL Last Edit by Monse Malagon CMA on 08/27/24 14:36 UA pH 6.0 Last Edit by Monse Malagon CMA on 08/27/24 14:36 UA Blood 0 Logan/uL Last Edit by Monse Malagon CMA on 08/27/24 14:36 UA Specific [place] 1.015 Last Edit by Monse Malagon CMA on 08/27/24 14:36 UA Ketone Negative Last Edit by Monse Malagon CMA on 08/27/24 14:36 UA Bilirubin 0 mg/dL Last Edit by Monse Malagon CMA on 08/27/24 14:36 UA Glucose 0 mg/dL Last Edit by Monse Malagon CMA on 08/27/24 14:36 Results Reviewed Results Reviewed: Laboratory Last Values Urine pH (Auto) 6.0 08/27/24 14:34 Specific [place] (Auto) 1.015 08/27/24 14:34 Urine Protein (Auto) 0 mg/dL 08/27/24 14:34 Glucose (UA)(Auto) 0 mg/dL 08/27/24 14:34 Urine Ketones (Auto) Negative 08/27/24 14:34 Urine Blood (Auto) 0 Logan/uL 08/27/24 14:34 Urine Nitrite (Auto) Negative 08/27/24 14:34 Urine Bilirubin (Auto) 0 mg/dL 08/27/24 14:34 Urine Urobilinogen (Auto) 0.2 mg/dL 08/27/24 14:34 Leukocyte Esterase (Auto) 70 Mariam/uL 08/27/24 14:34 Assessment & Plan Assessment & Plan (1) Cellulitis: Code(s): L03.90 - Cellulitis, unspecified (2) Yeast infection: Code(s): B37.9 - Candidiasis, unspecified (3) Incontinence: Code(s): R32 - Unspecified urinary incontinence Plan Moderately severe cellulitis of bilateral thighs superimposed on yeast infection of groin Start cephalexin 500 mg b.i.d. Start clotrimazole twice a day Patient has intractable urinary incontinence. Advised her to contact her PCP for evaluation and likely referral to urology. Orders: Orders AMB Urinalysis Automated Today Z13.9 - Encounter for screening, unspecified Medications: New clotrimazole 1% 1 appl topical BID 2 weeks 60 grams 0RF cephalexin 500 mg PO Q12H 10 days 20 caps 0RF Coding Level of Care Code Est Pt Level 3 (97925) Diagnoses Cellulitis L03.90 Yeast infection B37.9 Incontinence R32
== END ==
LOC: HO.HMCWIC 14:17
PROVIDERS: PCP Internal Medicine; Visit Provider Family Medicine
DX: L03.90 Cellulitis, unspecified (principal); B37.9 Candidiasis, unspecified; R32 Unspecified urinary incontinence; Z13.9 Encounter for screening, unspecified

== ENCOUNTER → 2024-08-27 14:17 | Outpatient (BNVA) | payer MEDICARE, SELFPAY | PROVIDERS: PCP Internal Medicine; Visit Provider Family Medicine | DX: L03.90 Cellulitis, unspecified (principal); B37.9 Candidiasis, unspecified; R32 Unspecified urinary incontinence | CPT/HCPCS: 81003; 99212 ==

== ENCOUNTER 2024-09-02 09:52 | Outpatient (AMB) | payer MEDICARE, SELFPAY ==
[2024-09-02 10:07] VITALS: BP 126/80; PULSE 90; O2SAT 95; BMI 28.3
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
--- OUTSIDE RECORDS SUMMARY | 2024-09-02 10:38 | XMS_ITS ---
[facility] Address [address] [place] [address] Care Team Providers Care Traffic Control Flagger Name Role Phone Ahsan Carrero MD Primary Care Provider Alex Gabriel Unavailable [phone] Allergies Allergen (clinical drug ingredient) Drug/Non Drug [...] Not-Taking buPROPion HCl 300 Orally No t-Taking Social History Tobacco Use: Social History Observation Description Date Details (start date - stop date) Never Smoker NA - NA Tobacco Use/Smoking Question Answer Notes Are you a: nonsmoker Additional Findings: Tobacco Non-User Current no n-smoker Tobacco use other than smoking: Question Answer Notes Are you an other tobacco user? No Vital Signs Height 5ft3.5in in 08/12/2024 Weight 155 lbs 08/12/2024 BMI 27.02 kg/m2 08/12/2024 Blood pressure systolic 120 mm Hg 08/13/19 25 Blood pressure diastolic 70 mm Hg 025 Procedures Procedure Date Ordered Date Performed Result Body Sit e 24690-FKZIIOU NAIL, 6 OR MORE 08/12/2024 N/A 57514-Tjbh Destruction, 1-14 08/12/2024 N/A Encounters Encounter Location Date Provider Diagnosis [facility] [address] [place] [address] 08/12/2024 Alexjose miguel IreneUna Tinea unguium B35.1 ; Pain in right toe(s) M79.674 ; Pain in left toe(s) M79.675 ; Right foot pain M79.671 ; Plantar wart B07.0 and Left foot pain M79.672 Assessments Encounter Date Diagnosis (ICD Code) Assessment Notes Treatment Notes Treatment Clinical Notes Section Notes 08/12/2024 Tinea unguium (ICD-10 - B35.1) 08/12/2024 Pain in right toe(s) (ICD-10 - M79.674) 08/12/2024 Pain in left toe(s) (ICD-10 - M79.675) 08/12/2024 Right foot pain (ICD-10 - M79.671) 08/12/2024 Plantar wart (ICD-10 - B07.0) 08/12/2024 Left foot pain (ICD-10 - M79.672) Plan Of Treatment Pending Test Test Name Order Date [id number]-BCSYFZO NAIL, 6 OR MORE 08/12/2024 97262-Jltc Destruction, 1-14 08/12/2024 Next Appt Details Follow Up: prn, Reason: Procedure Notes * Category Sub-Category Detail Notes Wart Treatment Procedure Verruca, as desc ribed in exam, were debrided to pin-point bleeding margins with sterile 15 surgical blade, silver nitrate chemocautery applied, recomm. immune-boosting meds such as zinc, recomm. follow up with topical chemosurgical agents, Pt defers any other forms of tx - 29827 Debride Nail 6-10 Nail debridement Due to the cl inical pathology outlined in the exam findings, performance of this nail treatment is medically necessary as its management by an unskilled/untrained nonprofessional would put this patients foot and overall health at risk. Therefore, debridement to affected nail(s), as described in exam ( TA, T2, T3, T4, T5, T6, T7, T8, T9 ), was performed exclusively by the physician of record to reduce/remove overall nail length, girth, thickness, subungual debris, and necrotic tissue, by manual and/or electrical means through the use of a nail nipper and/or dremel-type universal grinder set up operator, to a more viable healthy nail plate [...] to maintain effectiveness in symptomatic relief - 94292 Progress Notes * Marjorie ADEN ADOB: 1955 (68 yo F)Acc No.[id number]:08/12/2024 Progress Note Patient:?Miller ADEN Ganga Provider:?Alex Heart DPM :1955???Age:68 Y???Sex:Female D ate:08/12/2024 Address:[address] [place], [place] [id number] Pcp:Ahsan Carrero MD Subjective: * Chief Complaints: * ???Painful nail(s) aggrevate d by shoes causing difficulty standing/walkingWart(s) * HPI: ???Painful Nails:?Pt States Last PCP Visit:?Date:?04/29/2024 ?Nature:?States older brother 2 months ago.? * ROS:?General/Constitutional:?Nausea?denies.?Vomiting?denies.?Hunger Thirst?denies.?Loss appetite?denies.?Chills?denies.?Fatigue?denies.?Fever?denies.?Night Sweats?denies.?Unexplained weight loss?denies.?Unexplained [...] * Hospitalization/Major Diagno stic Procedure:?Patient went to [facility] [place] a [place] 11/28/2012[facility] [place] for [place] 03/2020[facility] [place] Depression 3months 12/2022[facility] in and out for bipolar depression, [id number] * Family History:?Mother: dece ased, diagnosed with Other specified conditions influencing health status.?Father: , diagnosed with Other specified conditions influencing health status.?Son(s): heart attack, diagnosed with Unspecified heart disease.?2 son(s) . .? * Social History:?Tobacco Use:?Tobacco Use/Smoking?Are you a:?nonsmoker ?Additional Findings: Tobacco Non-User?Current non-smoker ?Tobacco use other than smoking?Are you an other tobacco user??No ???Miscellaneous:?Caffeine: yes, frequency:. ?Children: yes, 2. ?Exercise: [...] S harshal Effectsyes[Allergies Verified] Objective: * Vitals:?Ht: 5ft3.5in, Wt:155 , BMI:27.02, Shoe size: 8.5, BP:120/70mm Hg, Ht-cm: 161.29 cm, Wt-k.31 kg. * Examination: ???Nails: ?NAILS are:?Elongated, overgrown, dystrophic, lytic, greater than 3mm thick, discolored and friable with crumbly malodorous subungual debris, with pain on palpation, TA, T2, T3, T4, T5, T6, T7, T8, T9, all other nails not described with characteristics as possessing mycosis are elongated, overgrown, and dystrophic.?Dermatologic: ?VERRUCA:?STILL, Reveals Multiple (2), round, raised, flat-topped, [...] - M79.672??? Plan: * Treatment: 2.?Plantar wart?Procedure: 59864-Zalk Destruction, 1-14 * Procedures:?Debride Nail 6-10:?Nail debridement?Due to the clinical pathology outlined in the exam findings, performance of this nail treatment is medically necessary as its management by an unskilled/untrained nonprofessional would put this patients foot and overall health at risk. Therefore, debridement to affected nail(s), as described in exam (??TA,?T2,?T3,?T4,?T5,?T6,?T7,?T8,?T9?), was performed exclusively by the physician of record to reduce/remove overall nail length, girth, thickness, subungual debris, and necrotic tissue, by manual and/or electrical means through the use of a nail nipper and/or dremel-type universal grinder set up operator, to a more viable healthy nail plate [...] to maintain effectiveness in symptomatic relief - 84022.?Wart Treatment:?Procedure?Verruca, as described in exam, were debrided to pin-point bleeding margins with sterile 15 surgical blade, silver nitrate chemocautery applied, recomm. immune-boosting meds such as zinc, recomm. follow up with topical chemosurgical agents, Pt defers any other forms of tx - 36599.? * Procedure Codes:?81525 DEBRI DE NAIL, 6 OR MORE, Modifiers: XS 42952 Wart Destruction, 1-14, Modifiers: XS * Follow Up:?prn * Images: * Sign off status: Completed true * Provider:?Alex Heart DPM Date:?2024 Generated for Rachel colmenares/Melecio/Dillon on:?09/02/2024 10:38 AM EDT History and Physical Notes * HPI (History of Present Illness) Category Sub-Category Detail Notes Category Not es Painful Nails Nature: States older brother 2 months ago Pt States Last PCP Visit: Date:: 04/29/2024 Examination Category Sub-Category Detail Notes Category Not [...] T2, T3, T4, T5, T6, T7, T8, T9, all other nails not described with characteristics as possessing mycosis are elongated, overgrown, and dystrophic
--- OUTSIDE RECORDS SUMMARY | 2024-09-02 10:38 | XMS_ITS | Clinical Summary ---
Author Organization [facility] Facility Address [address] [address] Care Team Providers Care Drafting Engineer Name Role Phone Unavailable Primary Care Provider [...]
--- OUTSIDE RECORDS SUMMARY | 2024-09-02 10:38 | XMS_ITS ---
Author Organization [facility] Address [address] [place] [address] Care Team Providers Care Feather Stitcher Name Role Phone Ahsan Carrero MD Primary Care Provider Alex Gabriel Unavailable [phone] Allergies Allergen (clinical drug ingredient) Drug/Non Drug [...] Ordered Date Performed Result Body Sit e 42147-OISVIDP NAIL, 6 OR MORE 04/05/2024 N/A 11204-Zzbc Destruction, 1-14 04/05/2024 N/A Encounters Encounter Location Date Provider Diagnosis [facility] [address] [place] [address] 04/05/2024 Alexjose miguel IreneUna Tinea unguium B35.1 [...] Treatment Pending Test Test Name Order Date [id number]-THCIOSM NAIL, 6 OR MORE 04/05/2024 52500-Walw Destruction, 1-14 04/05/2024 Next Appt Details Follow Up: prn, Reason: Procedure Notes * Category Sub-Category Detail Notes Wart Treatment Procedure Verruca, as desc ribed in exam, were debrided to pin-point bleeding margins with sterile 15 surgical blade, silver nitrate chemocautery applied, recomm. immune-boosting meds such as zinc, recomm. follow up with topical chemosurgical agents, Pt defers any other forms of tx - 93405 Debride Nail 6-10 Nail debridement Performance o f this nail treatment by a nonprofessional would put this patients foot and overall health at risk. Therefore, debridement to affected nail(s), as described in exam, was performed extensively to reduce/remove overall nail length, girth, thickness, subungual debris, and necrotic tissue, by manual and/or electrical means through the use of a nail nipper and/or dremel-type grinder set up operator gear tool, to a more viable healthy nail plate [...] to maintain effectiveness in symptomatic relief - 45224 Progress Notes * Marjorie ADEN ADOB: 1955 (68 yo F)Acc No.[id number]:04/05/2024 Progress Note Patient:?Miller ADEN Ganga Provider:?Alex Heart DPM :1955???Age:68 Y???Sex:Female D ate:04/05/2024 Address:[address] [place], [place] [id number] Pcp:Ahsan Carrero MD Subjective: * Chief Complaints: [...] * Hospitalization/Major Diagno stic Procedure:?Patient went to [facility] ER for a rash. 11/28/2012[facility] positive for covid 03/2020[facility] - Depression 3months 12/2022[facility] in and out for bipolar depression, [id number] * Family History:?Mother: dece ased, diagnosed with [...] - M79.672??? Plan: * Treatment: 2.?Plantar wart?Procedure: 32668-Sqwq Destruction, 1-14 * Procedures:?Debride Nail 6-10:?Nail debridement?Performance of this nail treatment by a nonprofessional would put this patients foot and overall health at risk. Therefore, debridement to affected nail(s), as described in exam, was performed extensively to reduce/remove overall nail length, girth, thickness, subungual debris, and necrotic tissue, by manual and/or electrical means through the use of a nail nipper and/or dremel-type grinder set up operator gear tool, to a more viable healthy nail plate [...] to maintain effectiveness in symptomatic relief - 09067.?Wart Treatment:?Procedure?Verruca, as described in exam, were debrided to pin-point bleeding margins with sterile 15 surgical blade, silver nitrate chemocautery applied, recomm. immune-boosting meds such as zinc, recomm. follow up with topical chemosurgical agents, Pt defers any other forms of tx - 35057.? * Procedure Codes:?82382 DEBRI DE NAIL, 6 OR MORE, Modifiers: XS 40711 Wart Destruction, 1-14, Modifiers: XS * Follow Up:?prn * Images: * Sign off status: Completed true * Provider:Denzel Heart DPM Date:?2023 Generated for Rachel colmenares/Melecio/iDllon on:?09/02/2024 10:38 AM EDT History and Physical [...]
--- OUTSIDE RECORDS SUMMARY | 2024-09-02 10:39 | XMS_ITS | Patient Health Record ---
[facility] Address [address] [place] [address] Care Team Providers Care Pile Driving Supervisor Name Role Phone Ahsan Carrero MD Primary Care Provider Alex Gabriel Unavailable [phone] Allergies Allergen (clinical drug ingredient) Drug/Non Drug [...] W/U Status Risk Notes Problem Plantar wart (43697223) Plantar wart (B07.0) Active confirmed Chronic Problem Onychomycosis (767278133) Tinea unguium (B35.1) Active confirmed Vital Signs Blood pressure diastolic 70 mm Hg 08/12/2024 Height 5ft3.5in in 08/12/2024 Blood pressure systolic 120 mm Hg 08/12/2024 Weight 155 lbs 08/12/2024 BMI 27.02 kg/m2 08/12/2024 Procedures Procedure Date Ordered Date Performed Result Body Sit e 51188-SDHMEMQ NAIL, 6 OR MORE 04/05/2024 N/A 52587-Ftrp Destruction, 1-14 04/05/2024 N/A 11691-AKBZUYA NAIL, 6 OR MORE 08/12/2024 N/A 78029-Dkvb Destruction, 1-08/12/2024 N/A 79310-Kcwo Destruction, 1-14 01/07/2024 N/A 04305-APFTRWU NAIL, 6 OR MORE 01/07/2024 N/A Encounters Encounter Location Date Provider Diagnosis [facility] [address] [place] [address] 01/07/2024 Alex Una Tinea unguium B35.1 ; Pain in right toe(s) M79.674 ; Pain in left toe(s) M79.675 ; Right foot pain M79.671 ; Plantar wart B07.0 and Left foot pain M79.672 [facility] [address] 04/05/2024 Alex Una Tinea unguium B35.1 ; Pain in right toe(s) M79.674 ; Pain in left toe(s) M79.675 ; Right foot pain M79.671 ; Plantar wart B07.0 and Left foot pain M79.672 [facility] [address] 08/12/2024 Alex Una Tinea unguium B35.1 ; Pain in right toe(s) M79.674 ; Pain in left toe(s) M79.675 ; Right foot pain M79.671 ; Plantar wart B07.0 and Left foot pain M79.672 [facility] [address] [address] 01/05/2024 [facility] [address] 01/07/2024 [facility] [address] 07/26/2024 Alex Heart Assessments Encounter Date Diagnosis [...] in left toe(s) (ICD-10 - M79.675) 04/05/2024 Pain in left toe(s) (ICD-10 - M79.675) 01/07/2024 Pain in left toe(s) (ICD-10 - M79.675) 04/05/2024 Right foot pain (ICD-10 - M79.671) 01/07/2024 Right foot pain (ICD-10 - M79.671) 08/12/2024 Right foot pain (ICD-10 - M79.671) 08/12/2024 Plantar wart (ICD-10 - B07.0) 04/05/2024 Plantar wart (ICD-10 - B07.0) 01/07/2024 Plantar wart (ICD-10 - B07.0) 01/07/2024 Left foot pain (ICD-10 - M79.672) 04/05/2024 Left foot pain (ICD-10 - M79.672) 08/12/2024 Left foot pain (ICD-10 - M79.672) Plan Of Treatment Pending Test Test Name Order Date 82258-GMYGLUF NAIL, 6 OR MORE 02/11/2011 35325-MMIKBYW NAIL, 6 OR MORE 06/03/2011 39090-FBWNVLZ NAIL, 6 OR MORE 09/16/2011 07895-UBBVSZF NAIL, 6 OR MORE 03/02/2012 69989-KOMLCFS NAIL, 6 OR MORE 06/01/2012 34434-HPQCHQO NAIL, 6 OR MORE 12/09/2011 96862-ZFQVWCQ NAIL, 6 OR MORE 09/14/2012 78396-QNLCQYD NAIL, 6 OR MORE 12/03/2012 59857-BRDIUPO NAIL, 6 OR MORE 03/08/2013 47590-XKAOFPD NAIL, 6 OR MORE 05/31/2013 23715-AVEDBKU NAIL, 6 OR MORE 07/05/2013 00021-HWASJLL NAIL, 6 OR MORE 08/23/2013 68492-UQXEJXL NAIL, 6 OR MORE 10/04/2013 01599-IDUHNMW NAIL, 6 OR MORE 11/22/2013 92383-CMOAXEI NAIL, 6 OR MORE 01/31/2014 62944-YHVXTYY NAIL, 6 OR MORE 03/07/2014 85458-IIUGGRF NAIL, 6 OR MORE 05/23/2014 88422-TYQLYOR NAIL, 6 OR MORE 07/04/2014 53000-EDKUAGQ NAIL, 6 OR MORE 08/15/2014 45309-JVJNLWK NAIL, 6 OR MORE 09/26/2014 27155-RHCXPJL NAIL, 6 OR MORE 10/31/2014 27565-SKXQLAL NAIL, 6 OR MORE 12/05/2014 33048-DOEMWXM NAIL, 6 OR MORE 01/23/2015 85345-IZUARHO NAIL, 6 OR MORE 03/06/2015 54386-MXNLAMK NAIL, 6 OR MORE 04/10/2015 41540-OBCJRBZ NAIL, 6 OR MORE 05/15/2015 72979-AQEQYXI NAIL, 6 OR MORE 09/18/2015 46104-QEMLUSV NAIL, 6 OR MORE 10/30/2015 82287-HUWAPPD NAIL, 6 OR MORE 12/07/2015 53915-NUKNDPD NAIL, 6 OR MORE 03/04/2016 91830-ADIAQPO NAIL, 6 OR MORE 05/27/2016 11000-NJWSOAO NAIL, 6 OR MORE 08/19/2016 16719-NCNVWOC NAIL, 6 OR MORE 11/07/2016 64236-MZIKZNR NAIL, 6 OR MORE 03/10/2017 03960-GHVCMHA NAIL, 6 OR MORE 06/26/2017 89785-AIRRJJV NAIL, 6 OR MORE 09/29/2017 20847-ZTVORJY NAIL, 6 OR MORE 12/08/2017 00073-UPNTCYR NAIL, 6 OR MORE 02/16/2018 89647-FHHWSDT NAIL, 6 OR MORE 06/08/2018 93750-EULFTZU NAIL, 6 OR MORE 09/07/2018 50035-ORALLBY NAIL, 6 OR MORE 02/01/2019 02379-YDMVVVA NAIL, 6 OR MORE 06/21/2019 43031-DRZLRCG NAIL, 6 OR MORE 09/20/2019 77547-MQYWORU NAIL, 6 OR MORE 12/13/2019 73871-LMCIPBZ NAIL, 6 OR MORE 03/06/2020 92403-MYJUFYP NAIL, 6 OR MORE 05/08/2020 96002-ZCFSEUS NAIL, 6 OR MORE 07/13/2020 15079-SEWUFTI NAIL, 6 OR MORE 11/06/2020 92079-KCCJQZN NAIL, 6 OR MORE 01/22/2021 46186-NSKXKSY NAIL, 6 OR MORE 05/08/2021 72202-PBBTJDI NAIL, 6 OR MORE 07/23/2021 35152-GCEJGIF NAIL, 6 OR MORE 01/10/2022 10529-FOWFRGR NAIL, 6 OR MORE 04/01/2022 78012-SHTDDMR NAIL, 6 OR MORE 06/02/2022 32808-QQHNKEF NAIL, 6 OR MORE 10/03/2022 63744-ALXYQCH NAIL, 6 OR MORE 03/06/2023 11787-RMHUHWW NAIL, 6 OR MORE 01/07/2024 88357-DPGGHHN NAIL, 6 OR MORE 04/05/2024 63280-PALQXLP NAIL, 6 OR MORE 08/12/2024 44182-Kmhf Destruction, 1-14 08/12/2024 84200-Sbnp Destruction, 1-14 07/23/2021 99498-Rjpx Destruction, 1-14 04/05/2024 67851-Cepf Destruction, 1-14 01/07/2024 88320-Rxgw Destruction, 1-14 03/06/2023 36974-Errb Destruction, 05-1707/21/2023 92044-Pcom Destruction, 05-1710/03/2022 73884-Wdnj Destruction, 05-1706/02/2022 76974-Ioay Destruction, 05-1704/01/2022 28643-Ahmo Destruction, 05-1701/10/2022 13676-Omfe Destruction, 05-1701/22/2021 59674-Djqr Destruction, 05-1705/08/2021 37442-Khpr Destruction, 05-1711/06/2020 42427-Vfke Destruction, 05-1711/23/2020 40134-Xmay Destruction, 05-1707/13/2020 35708-Jllp Destruction, 05-1709/11/2020 99911-Dgrg Destruction, 05-1705/08/2020 96694-Xbfd Destruction, 05-1706/19/2020 76641-Iswo Destruction, 05-1702/01/2019 19402-Ztdl Destruction, 05-1703/06/2020 99749-Hxqv Destruction, 05-1712/13/2019 01568-Rxyt Destruction, 05-1701/24/2020 43898-Crfp Destruction, 05-1709/20/2019 93072-Vpvc Destruction, 05-1711/01/2019 66119-Mbsk Destruction, 05-1706/21/2019 60679-Mchs Destruction, 05-1708/02/2019 53101-Phkh Destruction, 05-1709/07/2018 42255-Ltuo Destruction, 05-1710/12/2018 91925-Vwnj Destruction, 05-1707/20/2018 69531-Tdth Destruction, 05-1702/16/2018 69678-Augm Destruction, 05-1706/08/2018 83784-Bebx Destruction, 05-1703/30/2018 43596-Jrmo Destruction, 05-1711/03/2017 79292-Ogys Destruction, 05-1706/26/2017 85582-Ivii Destruction, 05-1712/08/2017 04450-Hbiq Destruction, 05-1708/18/2017 14477-Pjin Destruction, 05-1709/29/2017 93779-Eabx Destruction, 05-1705/05/2017 89869-Tatr Destruction, 05-1712/12/2016 71293-Rkpa Destruction, 05-1703/10/2017 00747-Ucrz Destruction, 05-1709/23/2016 48037-Oryi Destruction, 05-1711/07/2016 67420-Mlqt Destruction, 05-1708/19/2016 78893-Bzsp Destruction, 05-1707/08/2016 66647-Jpkq Destruction, 05-1705/27/2016 08576-Stwb Destruction, 05-1703/04/2016 50701-Quyf Destruction, 05-1704/15/2016 00728-Nydv Destruction, 05-1712/07/2015 71419-Iqjq Destruction, 05-1701/08/2016 16240-Jywx Destruction, 05-1710/30/2015 60849-Jsea Destruction, 05-1709/18/2015 79632-Fshd Destruction, 05-1706/26/2015 35179-Fmnw Destruction, 05-1707/31/2015 98707-Dcgc Destruction, 05-1705/15/2015 68440-Raey Destruction, 05-1704/10/2015 58523-Guhu Destruction, 05-1703/06/2015 51644-Qxhp Destruction, 05-1701/23/2015 32990-Eazl Destruction, 05-1712/05/2014 32271-Yivf Destruction, 05-1710/31/2014 97827-Esox Destruction, 05-1709/26/2014 48614-Ztjp Destruction, 05-1708/15/2014 81299-Pvjd Destruction, 05-1707/04/2014 05518-Sdpc Destruction, 05-1705/23/2014 43170-Dkzu Destruction, 05-1703/07/2014 34243-Tbwu Destruction, 05-1701/31/2014 62494-Tcqa Destruction, 05-1711/22/2013 63441-Vpvl Destruction, 05-1710/04/2013 65224-Sobb Destruction, 05-1708/23/2013 62757-Hchh Destruction, 05-1707/05/2013 14510-Yfvs Destruction, 05-1705/31/2013 00725-Bwvn Destruction, 05-1703/08/2013 73599-Gasm Destruction, 05-1702/01/2013 72424-Odtr Destruction, 05-1712/03/2012 32692-Xygv Destruction, 05-1710/26/2012 50079-Fbjm Destruction, 05-1712/09/2011 62875-Irir Destruction, 05-1706/01/2012 28565-Epce Destruction, 05-1707/27/2012 83808-Hjkn Destruction, 05-1709/14/2012 36396-Cwbe Destruction, 05-1703/02/2012 72080-Ncbu Destruction, 05-1704/13/2012 04934-Usvt Destruction, 05-1709/16/2011 81928-Ewkm Destruction, 05-1710/28/2011 89919-Qapb Destruction, 05-1706/03/2011 70415-Ekvr Destruction, 05-1707/22/2011 52787-Efnp Destruction, 05-1704/08/2011 85852-Jshg Destruction, 05-1712/31/2010 69760-Lpyc Destruction, 05-1702/11/2011 02765-Ilgrnmnz Plate 05/27/2016 91705-Dhaavead Plate 08/19/2016 16606-Izmtvbcp Plate 06/26/2017 37538-Vodhrzjz Plate 06/08/2018 96572-Ntwludvt Plate 02/16/2018 27612-Ixskhqjf Plate 09/07/2018 57608-Xqngnxkx Plate 06/21/2019 42182-Spcmnziu Plate 02/01/2019 94146-Pppotwzb Plate 09/20/2019 25223-Fgtfuxgr Plate 12/13/2019 46776-Yvywfvzo Plate 03/06/2020 39034-Pszwkxjk Plate 05/08/2020 99129-Dcuuiagt Plate 07/13/2020 26436-Enootqxq Plate 11/06/2020 74139-Sepmodna Plate 01/22/2021 82974-Zxhmokzo Plate 05/08/2021 64598-Gexafchz Plate 01/10/2022 85402-Xstfsose Plate 07/23/2021 21427-Wlzoktbx Plate 10/03/2022 13091- Debride <25 sq cm 04/13/2012 88673- Debride <25 sq cm 10/26/2012 22239- Debride <25 sq cm 12/03/2012 91016- Debride <25 sq cm 02/01/2013 31323- Debride <25 sq cm 03/08/2013 64042- Debride <25 sq cm 05/31/2013 08940- Debride <25 sq cm 07/05/2013 91745- Debride <25 sq cm 08/23/2013 33796- Debride <25 sq cm 10/04/2013 21601- Debride <25 sq cm 11/22/2013 44442- Debride <25 sq cm 01/31/2014 52390- Debride <25 sq cm 03/07/2014 66577- Debride <25 sq cm 05/23/2014 50272- Debride <25 sq cm 07/04/2014 91316- Debride <25 sq cm 08/15/2014 18154- Debride <25 sq cm 09/26/2014 45062- Debride <25 sq cm 10/31/2014 38252- Debride <25 sq cm 12/05/2014 55249- Debride <25 sq cm 01/23/2015 19522- Debride <25 sq cm 03/06/2015 31037- Debride <25 sq cm 04/10/2015 47637- Debride <25 sq cm 05/15/2015 42708-CLUELUS SKIN/TISSUE 04/13/2012 60804 - Tenotomy, open flexor 11/17/2017 Insurance Providers Payer Name Payer Address Payer Phone Subscriber Number Group Number Insured Name Patient Relationship to Insured Coverage Start Date Coverage End Date Medicare [employer] [address] [place] [address] [id number] Marjorie Ghotra Self - patient is the insured Med [facility] [address] [place] [address] [phone] [id number] Marjorie Ghotra Self - patient is the insured Medical (General) History Medical History History ICD Code measles chickenpox shingles anxiety Bipolar disorder 1 chronic bladder infections Hypercholesterolemia Surgical History Surgery Date(Month/Year) breast cyst removal 1980 Hospitalization History Reason Date(Month/Year) [facility]- in and out for bipolar depression, 9830-5613 [facility] [place] 12/20[place] [facility] [place] 03/2020 Patient went to [facility] ER for a rash. 11/28
--- OUTSIDE RECORDS SUMMARY | 2024-09-02 10:39 | XMS_ITS ---
Author Organization [facility] Address [address] [place] [address] Care Team Providers Care Help Desk Analyst Name Role Phone Ahsan Carrero MD Primary Care Provider Alex Gabriel [phone] REASON FOR VISIT SD appt Encounters Encounter Location Date Provider Diagnosis [facility] [address] [place] [address] 07/26/2024 Alex Heart Plan Of Treatment No Information Progress Notes * Marjorie ADEN ADOB: 1955 (68 yo F)Acc No.[id number]:07/26/2024 Patient:?Miller ADEN :1955???Age:68 Y???Sex:Female Address:[address] [place] [address], [id number] * true * Date:? Generated for Rajii darrian/Melecio/eTransmitting on:?09/02/2024 10:38 AM EDT
== END 2024-09-02 11:32 | disposition home or self-care (01) ==
PROVIDERS: PCP Internal Medicine; Visit Provider Physician Assistant
DX: M79.604 Pain in right leg (principal); M25.561 Pain in right knee; M70.51 Other bursitis of knee, right knee

== ENCOUNTER 2024-09-02 09:52 | Outpatient (REF) | payer MEDICARE, SELFPAY ==
--- NOTE | ~2024-09-02 | XR_ITS ---
EXAMINATION: XR TIBIA AND FIBULA, RIGHT CLINICAL INFORMATION: M25.561 - Pain in right knee COMPARISON: None available. TECHNIQUE: AP and lateral views of the right tibia and fibula were obtained. FINDINGS: The bones and soft tissues are normal. No fracture. No osseous lesions. XR/XR tibia fibula RT 2V IMPRESSION: Normal right tibia and fibula. Electronically signed by: Scott Campos MD 09/02/2024 11:03 AM EDT
--- NOTE | ~2024-09-02 | XR_ITS ---
EXAMINATION: XR KNEE, RIGHT CLINICAL INFORMATION: M79.604 - Pain in right leg COMPARISON: None available. TECHNIQUE: Four views of the right knee. FINDINGS: No fracture or joint effusion. Alignment is anatomic. Mild medial compartment joint space narrowing with trace osteophytic spurring marginally. Lateral and patellofemoral compartments appear preserved. Minimal spurring of the tibial spines. Normal soft tissues. No joint effusion evident. XR/XR knee RT 4V IMPRESSION: 1. No acute bony abnormalities right knee. No joint effusion. 2. Very mild degenerative arthritis medial compartment. Electronically signed by: Scott Campos MD 09/02/2024 11:03 AM EDT
--- OUTSIDE RECORDS SUMMARY | 2024-09-02 11:42 | XMS_ITS | Clinical Summary ---
Author Organization [facility] Address [address] [address] Care Team Providers Care Electrical Engineer Name Role Phone Unavailable Primary Care [...]
== END 2024-09-02 09:53 | disposition home or self-care (01) ==
LOC: HO.HMGCX 09:52
PROVIDERS: PCP Internal Medicine; Visit Provider Physician Assistant
DX: M79.604 Pain in right leg (principal); M25.561 Pain in right knee; M70.51 Other bursitis of knee, right knee
CPT/HCPCS: 73564; 73590; 99212

== ENCOUNTER → 2024-09-02 10:40 | Outpatient (BNV) | payer MEDICARE, SELFPAY | PROVIDERS: PCP Internal Medicine; Visit Provider Radiology Diagnostic Radiology | DX: M79.604 Pain in right leg (principal); M25.561 Pain in right knee | CPT/HCPCS: 73564; 73590 ==

== ENCOUNTER → 2024-09-14 08:45 | Outpatient (BNV) | payer MEDICARE, SELFPAY | PROVIDERS: PCP Internal Medicine; Visit Provider Internal Medicine | DX: Z12.31 Encounter for screening mammogram for malignant neoplasm of breast (principal) | CPT/HCPCS: 77063; 77067 ==

== ENCOUNTER 2024-09-14 09:02 | Outpatient (REF) | payer MEDICARE, SELFPAY ==
--- OUTSIDE RECORDS SUMMARY | 2024-09-14 09:29 | XMS_ITS | Clinical Summary ---
Author Organization [facility] Address [address] [address] Care Team Providers Care Information Assurance Officer Name Role Phone Unavailable Primary Care Provider [...]
== END 2024-09-14 09:03 | disposition home or self-care (01) ==
LOC: HO.MAMMO 09:02
PROVIDERS: PCP Internal Medicine; Visit Provider Internal Medicine
DX: Z12.31 Encounter for screening mammogram for malignant neoplasm of breast (principal)
CPT/HCPCS: 77063; 77067

== ENCOUNTER 2024-12-08 17:58 | Inpatient (IN) | payer MEDICARE, SELFPAY ==
--- NOTE | 2024-12-08 | ECG_ITS ---
Test Reason : MED CLEARANCE Blood Pressure : */* mmHG Vent. Rate : 65 BPM Atrial Rate : 65 BPM P-R Int : 168 ms QRS Dur : 96 ms QT Int : 418 ms P-R-T Axes : 44 -9 22 degrees QTcB Int : 434 ms Normal sinus rhythm Possible Left atrial enlargement Incomplete right bundle branch block Abnormal ECG When compared with ECG of 08-Jul-2024 07:55, No significant change was found Referred By: Bobby Steven Electronically Signed By: MARLENE DONALDSON
--- NOTE | ~2024-12-08 | CT_ITS ---
EXAMINATION: Lumbar spine 2-[address] head without contrast. CLINICAL INDICATION: Lower back pain and head trauma. COMPARISON: CT head 07/25/2024. Lumbar spine 02/01/2024 TECHNIQUE: Lumbar spine 3 views. 5 mm thin axial and reformatted 2 minute thin sagittal and coronal images of brain were obtained. DLP [address] examination was performed using dose optimization techniques as appropriate, variously including the following: *Automated exposure control *Adjustment of mA and/or kV according to patient size (this includes techniques or standardized protocols for targeted exams where dose is matched to indication/reason for exam; i.e. extremities or head) *Use of iterative reconstruction technique. FINDINGS: LUMBAR SPINE: There is mild straightening of lumbar lordosis with lower lumbar spine scoliosis to left. There is loss of L4 and L3 vertebral heights, chronic. No new loss of vertebral height seen to suspect any acute fracture. There is loss of disc height at L4-5, L3-4, L2-3 disc levels with mild to moderate lateral spondylosis at these disc levels. No lytic or sclerotic process seen. SI joints are symmetrical and unremarkable. BRAIN: There is no acute intra-axial, extra-axial bleed, masses or midline shift. There is no acute infarction evolution. There is no edema. The bishop to white matter differentiation is maintained normal. The lateral ventricles are symmetrical in size and configuration but enlarged and so are the cortical sulci. Prominent bilateral frontal subdural space is seen likely secondary to volume loss. Bone windows reveal no calvarial abnormality. There is no scalp soft tissue abnormality. Bilateral paranasal sinuses and mastoid cells are well-aerated with small polyp or retention cyst left sphenoid sinus. CT/CT head/brain wo IV con IMPRESSION: Chronic loss of L3 and L4 will heights and degenerative disc changes from L2-3 through L4-5 disc levels. There is moderate spondylosis as well at these disc levels. These findings are unchanged to previous lumbar spine exam 02/01/2024. No new findings. No acute intracranial process seen. Electronically signed by: Nas Gutiérrez MD 12/14/2024 07:24 AM EDT
--- NOTE | 2024-12-08 18:06 | ED.GENADULT ---
HPI - General Adult General Chief complaint: Psychiatric Symptoms Stated complaint: not feeling herself last couple months Time Seen by Provider: 12/08/24 18:48 History of Present Illness ED Provider: Bobby Steven MD HPI narrative: 69-year-old female reporting depression. No SI HI reported. Limited history. Flat affect depressed appearing Related Data Home Medications ?Medication ?Instructions ?Recorded ?Confirmed liothyronine 25 mcg tablet 12.5 mcg PO BID 08/06/24 12/08/24 Previous Rx's ?Medication ?Instructions ?Recorded carbamazepine 400 mg 400 mg PO BEDTIME 30 days #30 tabs 07/19/24 tablet,extended release,12 hr donepezil 5 mg tablet 5 mg PO BEDTIME 30 days #30 tabs 07/19/24 lurasidone 40 mg tablet (Latuda) 40 mg PO DAILY@1230 30 days #30 07/19/24 tabs Allergies Allergy/AdvReac Type Severity Reaction Status Date / Time No Known Allergies Allergy Verified 12/08/24 18:08 [facility] Past Medical History Medical History Cough Acute respiratory disease Noncompliance with medications Depression Bipolar 1 disorder Airam RADHA (acute kidney injury) Fracture of right ulnar styloid Neurodegenerative cognitive impairment Bipolar disorder, most recent episode depressed Left ankle sprain Low back pain Acute bronchitis Left sided sciatica Depression Sore throat (viral) Surgical History Hx of colonoscopy No significant past surgical history Social History Social History Household Members: Spouse Household Members Other:: Son Housing: House Do you presently have visiting nurse or other home services: No Alcohol intake: unknown Comment: Independent Patient Tobacco Use Status: Former Tobacco user Smoked in Last 30 Days: No e-Cigarette/Vaping Use: Never Used Second Hand Smoke Exposure: No Use of substances other than those prescribed or required for medical reasons: No Substance Use Type: Marijuana Currently Displaying Signs/Symptoms of Drug Intoxication Withdrawal: No Have you been hit, kicked, punched, or otherwise hurt by someone within the past year? If so, by whom?: No Do you feel safe in your current relationship?: Yes Is there a partner from a previous relationship who is making you feel unsafe now?: No Are you made to feel afraid or neglected: No Advance Directives: No Advance Directives Information Provided: No Do you have thoughts of harming others: None Do you have a plan to hurt others: No Plan Recently lost weight without trying: Yes How much weight loss: 2-13 pounds Eating poorly because of decreased appetite: Yes Nutrition screen score: 4 Nutrition Risks: No Nutritional Risk Patient : No : No Poor oral hygiene: No service: No Sexual orientation: Straight/Heterosexual Physical Exam ED Exam Exam: GENERAL: Well appearing. No apparent distress. Alert. HEAD/NECK: No visual trauma. EYES: Normal to inspection. No conjunctival erythema. No discharge. ENMT: Hearing grossly normal. External nose normal. RESPIRATORY: Respiratory effort normal. CARDIOVASCULAR: Additional details (Grossly well perfused). SKIN: No jaundice. NEUROLOGICAL: Alert. Moving all extremities x4. Additional details (No gross motor deficits. Normal tone. ). PSYCHIATRIC: Alert. Appearance appropriate for situation. Flat affect. Reporting depression Vital Signs: Vital Signs - 24 hr 12/08/24 18:07 Temperature 98.1 F Pulse Rate 79 Respiratory Rate 16 Blood Pressure 145/98 H Pulse Oximetry 97 Oxygen Delivery Method Room Air BMI result Body Mass Index 24.4 Course Course Course Narrative: This is a rapid medical exam performed by Anita Poe NP: Additional HPI, ROS, PE not included below will be deferred to primary provider. Patient is a 69-year-old female with history of Bipolar 1 disorder, neurodegenerative cognitive impairment, depression presenting to the ED with cousin with complaint of feelling out of it for a few months. States she has been having difficulty taking care of herself at home. Eating and drinking ok, not always sleeping well. Cousin states she's been on a low since September. Stopped her medications a while ago. Denies SI, HI, AH, VH. States she is worried about being here because her is at home. Plan: med clearance, then CARE eval Medications Administered Generic Name Dose Route Start Last Admin Trade Name Freq PRN Reason Stop Dose Admin Donepezil HCl 5 mg 12/09/24 00:05 12/09/24 00:41 Donepezil Hcl 5 Mg Tablet PO 5 mg BEDTIME CARLOS Administration Lurasidone HCl 20 mg 12/08/24 23:58 12/09/24 00:41 Lurasidone Hcl 20 Mg Tablet PO 20 mg DAILY@1230 CARLOS Administration Discontinued Medications Generic Name Dose Route Start Last Admin Trade Name Armando PRN Reason Stop Dose Admin Carbamazepine 100 mg 12/09/24 00:00 12/09/24 00:41 Carbamazepine Er 100 Mg Tab.Er.12h PO 12/09/24 00:01 100 mg ONCE ONE Administration Medical Decision Making Medical Decision Making MDM Narrative: Medical Decision Makin-year-old female with depression and other vague symptoms. No SI. Does not appear psychotic. She is clean and well-kempt does not appear disheveled. Plan for medical screening care team. No appearance or clinical suggestion of encephalopathy or alternative etiology of her psychiatric symptoms Preliminary Favored Differential Diagnosis: Depression, dementia among additional considered etiologies Testing Interpreted Independently: Not Applicable Radiology or Lab testing Results Reviewed: No actionable findings Consults: Care team/behavioral health Independent Historians/External Chart Reviews: Not Applicable Social Determinants of Health Impacting MDM/Planning: Not Applicable Lab Data 12/08/24 18:46 12/08/24 22:18 Labs: Lab Results 12/08/24 Range/Units 18:46 WBC 7.7 (4.8-10.8) X10*3/uL RBC 5.08 (4.20-5.50) X10*6/uL Hgb 14.2 (12.0-16.0) g/dl Hct 42.6 (37.0-47.0) % MCV 83.9 (80.0-98.0) fL MCH 28.0 (27.0-33.0) pg MCHC 33.3 (31.0-35.0) g/dl RDW 16.0 (11.0-16.0) % Plt Count 331 (160-400) X10*3/uL MPV 9.3 L (9.4-12.3) fL Immature Gran % (Auto) 0.3 (0.0-0.4) % Neut % (Auto) 52.8 (45-73) % Lymph % (Auto) 36.5 (20-40) % [place] % (Auto) 9.2 (2-11) % Eos % (Auto) 0.8 (0-4) % Baso % (Auto) 0.4 (0-2) % Lymph # (Auto) 2.8 (1.2-4.9) X10*3/uL [place] # (Auto) 0.7 (0.1-1.2) X10*3/uL Eos # (Auto) 0.1 (0.0-0.4) X10*3/uL Baso # (Auto) 0.0 (0.0-0.2) X10*3/uL Abs Immat Gran (auto) 0.02 (0.00-0.03) X10*3/uL Absolute Neuts (auto) 4.1 (2.0-8.3) x10*3/uL Absolute Nucleated RBC 0.000 (0.0-0.012) X10*3/uL Nucleated RBC % (auto) 0.0 (0.0-0.2) /100WBC Sodium 141 (135-145) mmol/L Potassium 4.2 (3.3-5.1) mmol/L Chloride 107 (96-108) mmol/L Carbon Dioxide 23 (22-29) mmol/L Anion Gap 15 (12-20) BUN 21 H (9-16) mg/dL Creatinine 0.96 (0.5-1.4) mg/dL Estim Creat Clear Calc 44.5 Estimated GFR 57 Random Glucose 80 (60-115) mg/dL Calcium 9.0 (8.4-10.2) mg/dL Total Bilirubin 0.5 (0.0-1.0) mg/dL AST 23 (5-31) U/L ALT 12 (0-31) U/L Alkaline Phosphatase 78 (39-117) U/L Total Protein 7.2 (6.5-8.0) g/dL Albumin 4.4 (3.5-5.0) g/dL Ethyl Alcohol < 10 mg/dL Influenza Type A (PCR) NEGATIVE (Negative) Influenza Type B (PCR) NEGATIVE (Negative) RSV RNA Qual (PCR) NEGATIVE (Negative) SARS-CoV-2 RNA (RT-PCR) NEGATIVE (Negative) Discharge Plan Discharge Clinical Impression: Bipolar disorder with depression Patient Disposition: Admitted As Inpatient Interventions: [place]ro[place]-Suicide Risk Severity Scale Last Done: 12/09/24 00:00 Admission Worksheet (ED) Last Done: 12/08/24 23:06 Discharge Date/Time: 12/08/24 23:07
[2024-12-08 18:07] VITALS: BP 145/98; PULSE 79; RESP 16; TEMP 36.7; O2SAT 97; BMI 24.4
--- NOTE | 2024-12-08 18:15 | PC.NURSE ---
cousin Denies phone # [phone]
--- NOTE | 2024-12-08 18:42 | PC.NURSE ---
patient a&ox3, vss, pt denies si/hi, rr equal/non labored/lungs clear, tech to draw labs, pt aware we need a urine, changeover performed- items in [place] shelf 2, care team consult placed, plan of care ongoing
[2024-12-08 18:50] LABS: MANUAL DIFF FLAG NO
[2024-12-08 18:53] LABS: Hematocrit 42.6 % (37.0-47.0); Hemoglobin 14.2 g/dl (12.0-16.0); Imm Gran Abs Auto 0.02 X10*3/uL (0.00-0.03); Imm Gran Pct Auto 0.3 % (0.0-0.4); Lymphocytes Absolute Auto 2.8 X10*3/uL (1.2-4.9); Mean Corpuscular HGB Conc 33.3 g/dl (31.0-35.0); Mean Corpuscular Hemoglobin 28.0 pg (27.0-33.0); Mean Corpuscular Volume 83.9 fL (80.0-98.0); NRBC Abs Auto 0.000 X10*3/uL (0.0-0.012); NRBC Pct Auto 0.0 /100WBC (0.0-0.2); Platelet Count 331 X10*3/uL (160-400); Red Blood Count 5.08 X10*6/uL (4.20-5.50); White Blood Count 7.7 X10*3/uL (4.8-10.8)
[2024-12-08 19:07] LABS: Alanine Aminotransferase 12 U/L (0-31); Albumin Level 4.4 g/dL (3.5-5.0); Alkaline Phosphatase 78 U/L (39-117); Anion Gap 15 (12-20); Aspartate Amino Transferase 23 U/L (5-31); Blood Urea Nitrogen 21 mg/dL (9-16); Calcium 9.0 mg/dL (8.4-10.2); Carbon Dioxide 23 mmol/L (22-29); Chloride 107 mmol/L (96-108); Creatinine Clr Calc Pharmacy 44.5; Estimated Glomerular Filt Rate 57; Potassium 4.2 mmol/L (3.3-5.1); Sodium 141 mmol/L (135-145); Total Protein 7.2 g/dL (6.5-8.0)
[2024-12-08 19:28] LABS: Resp Syncy Virus RNA Qual PCR NEGATIVE (Negative); SARS COV2 PCR INHOUSE NEGATIVE (Negative)
--- OUTSIDE RECORDS SUMMARY | 2024-12-08 19:32 | XMS_ITS | Clinical Summary ---
Author Organization [facility] Address [address] [address] Care Team Providers Care Barrel Lathe Operator Name Role Phone Unavailable Primary Care Provider [...] of 1 - PCV) 10/22/2003 Influenza Vaccine (#1) 2025 Hepatitis B Vaccine Aged Out No longe r eligible based on patient's age to complete this topic
--- NOTE | 2024-12-08 21:43 | PC.NURSE ---
This screenplay writer assumed care of this Pt at 1900.
[2024-12-08 22:08] VITALS: BP 150/82; PULSE 69; RESP 16; TEMP 36.6; O2SAT 99
--- NOTE | 2024-12-08 22:21 | PC.NURSE ---
Med rec complete, Pt able to verify 3 home meds with pharmacy list. Unsure if she take Latuda.
--- NOTE | 2024-12-08 22:25 | PC.NURSE ---
Pt ambulated to BR independently with steady gait. Urine sample collected and sent to lab.
[2024-12-08 22:29] LABS: Appearance Urine Cloudy; Glucose Urine UA Negative (Negative); PH 5.0 (5.0-9.0); Specific Gravity - Urine 1.025 (1.005-1.025); UMIC TRIGGER UACC YES
[2024-12-08 22:34] LABS: UACC Culture Trigger YES
[2024-12-08 22:38] LABS: Cannabinoid Screen Urine Not Detected (Not Detect)
[2024-12-08 22:40] LABS: Alanine Aminotransferase 16 U/L (0-31); Albumin Level 4.4 g/dL (3.5-5.0); Alkaline Phosphatase 78 U/L (39-117); Anion Gap 11 (12-20); Aspartate Amino Transferase 24 U/L (5-31); Blood Urea Nitrogen 19 mg/dL (9-16); Calcium 9.2 mg/dL (8.4-10.2); Carbon Dioxide 28 mmol/L (22-29); Chloride 105 mmol/L (96-108); Creatinine Clr Calc Pharmacy 49.6; Estimated Glomerular Filt Rate > 60; Potassium 4.0 mmol/L (3.3-5.1); Sodium 140 mmol/L (135-145); Total Protein 7.3 g/dL (6.5-8.0)
--- NOTE | 2024-12-08 23:04 | PC.NURSE ---
Report given to Tommie PLUNKETT. Pt will be transported to room 186 by RN and security.
[2024-12-09] VITALS: BP 151/78; PULSE 70; RESP 18; TEMP 36.4; O2SAT 98; BMI 24.2
[2024-12-09] MEDS: carBAMazepine ER 100 MG TAB.ER.12H PO (00:41)
--- NOTE | 2024-12-09 03:15 | PC.ADMIT ---
Addendum entered by Mikaela Chavez RN 12/09/24 03:17: Tox screen not completed. Original Note: Marjorie Johnston is a 69yo, Slovak speaking female who arrived on? the unit at 2315 on a CV from [facility] [place] [place] [facility] via wheelchair accompanied by an RN and? assistant director of security. Precipitants to this admission include worsening depression, increased life stressors and not taking her medications. Pt was last admitted to [facility] [place] [place] 07/08/24 - 07/20/24. Pt arrived at S1 with an admitting diagnosis of unspecified Bipolar d/o and MDD. Skin check conducted by RN and TW and nothing significant found. She is A&O x3, calm, cooperative with the admission process. Pt endorses depression and a little anxiety, said she stopped taking her medications a while ago, affect is flat stated ? I am out of it.? denies SI/HI/AVH, reports poor sleep and appetite.. Pt signed FATIMAH?s, VSS unremarkable except for BP 151/78. The patient was placed on 5 minute checks for safety
--- NOTE | 2024-12-09 06:27 | PC.NURSE ---
Pt was not medicated with Liothyronine sodium 12.5mg, Pharmacy contacted, they did not have it.
[2024-12-09 08:00] VITALS: BP 107/62; PULSE 74; RESP 18; TEMP 36.3; O2SAT 97
[2024-12-09 08:03] LABS: Hemoglobin A1C 128.0638 umol/L; Total Hemoglobin (HGBA1C) 3672.2235 umol/L
[2024-12-09 08:20] LABS: Alanine Aminotransferase 13 U/L (0-31); Albumin Level 4.1 g/dL (3.5-5.0); Alkaline Phosphatase 81 U/L (39-117); Anion Gap 11 (12-20); Aspartate Amino Transferase 26 U/L (5-31); Blood Urea Nitrogen 18 mg/dL (9-16); Calcium 8.9 mg/dL (8.4-10.2); Carbon Dioxide 28 mmol/L (22-29); Chloride 106 mmol/L (96-108); Cholesterol 207 mg/dL (<200); Creatinine Clr Calc Pharmacy 41.4; Estimated Glomerular Filt Rate 53; HDL Cholesterol 45 mg/dL (>40); Potassium 4.4 mmol/L (3.3-5.1); Sodium 141 mmol/L (135-145); Total Protein 6.9 g/dL (6.5-8.0); Triglycerides 137 mg/dL (<150)
[2024-12-09 08:27] VITALS: BP 107/62; PULSE 73; RESP 18; TEMP 36.3; O2SAT 97
[2024-12-09 08:39] LABS: Free T4 (Free Thyroxine) 1.01 ng/dL (0.71-1.85); Thyroid Stimulating Hormone 6.22 uIU/mL (0.32-4.0)
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
[2024-12-09 20:00] VITALS: BP 108/65; PULSE 68; RESP 16; TEMP 36.4; O2SAT 94
--- NOTE | 2024-12-10 12:44 | P.PNPSI_ITS ---
Subjective Subjective Date of Service: 12/10/24 Reason For Visit: Increased depression, non medication compliant Interim History: Patient said she felt out of it this morning. She reports Trazodone which she has tried before is making her feel this way and requests it is discontinued. She remains depressed and anxious. Denies SI/HI/AVH. Review of Systems Review of Systems Pt denies chest pain, changes in vision, no constipation nor diarrhea. No abdominal pain. Mental Status Exam Mental Status Exam Narrative: Appearance: casually groomed, fair hygiene, mask-face like expression, in NAD Behavior: cooperative Psychomotor: no agitation nor overt retardation Speech: clear, mild delay in response, minimally spontaneous TP: mostly linear TC:linear Mood: depressed Affect: mask like expression, constricted affect SI: denies HI: denies VH/AH: no overt Delusions: no overt delusional content reported Insight/judgment: poor x 2. Memory/cog: alert, oriented to place, month, year and situation. Diagnostics Vital Signs (24Hr): Vital Signs - 24 hr 12/09/24 20:00 12/10/24 09:39 Temperature 97.5 F Pulse Rate 68 Respiratory Rate 16 Blood Pressure 108/65 Pulse Oximetry 94 Oxygen Delivery Method Room Air Room Air BMI result Body Mass Index 24.2 Labs 12/08/24 18:46 12/09/24 07:47 Labs: Laboratory Results - last 48 hr 12/08/24 12/08/24 12/08/24 18:46 22:16 22:18 WBC 7.7 RBC 5.08 Hgb 14.2 Hct 42.6 MCV 83.9 MCH 28.0 MCHC 33.3 RDW 16.0 Plt Count 331 MPV 9.3 L Immature Gran % (Auto) 0.3 Neut % (Auto) 52.8 Lymph % (Auto) 36.5 [place] % (Auto) 9.2 Eos % (Auto) 0.8 Baso % (Auto) 0.4 Lymph # (Auto) 2.8 [place] # (Auto) 0.7 Eos # (Auto) 0.1 Baso # (Auto) 0.0 Abs Immat Gran (auto) 0.02 Absolute Neuts (auto) 4.1 Absolute Nucleated RBC 0.000 Nucleated RBC % (auto) 0.0 Sodium 141 140 Potassium 4.2 4.0 Chloride 107 105 Carbon Dioxide 23 28 Anion Gap 15 11 L BUN 21 H 19 H Creatinine 0.96 0.86 Estim Creat Clear Calc 44.5 49.6 Estimated GFR 57 > 60 Random Glucose 80 87 Estimat Average Glucose Hemoglobin A1c % Calcium 9.0 9.2 Total Bilirubin 0.5 0.7 AST 23 24 ALT 12 16 Alkaline Phosphatase 78 78 Total Protein 7.2 7.3 Albumin 4.4 4.4 Triglycerides Cholesterol LDL Cholesterol, Calc HDL Cholesterol TSH Free T4 Urine Color Yellow Urine Appearance Cloudy Urine pH 5.0 Ur Specific [place] 1.025 Urine Protein Negative Urine Glucose (UA) Negative Urine Ketones Trace Urine Blood Negative Urine Nitrite Negative Ur Leukocyte Esterase Moderate (2+) H Urine RBC 0-2 Urine WBC >50 H Ur Squamous Epith Cells 11-20 Urine Bacteria Trace Hyaline Casts 0-2 Urine Opiates Screen Not Detected Ur Buprenorphine Scrn Not Detected Ur Oxycodone Screen Not Detected Urine Methadone Screen Not Detected Urine Fentanyl Screen Not Detected Ur Barbiturates Screen Not Detected Ur Phencyclidine Scrn Not Detected Ur Amphetamines Screen Not Detected U Benzodiazepines Scrn Not Detected Urine Cocaine Screen Not Detected U Marijuana (THC) Screen Not Detected Ethyl Alcohol < 10 Influenza Type A (PCR) NEGATIVE Influenza Type B (PCR) NEGATIVE RSV RNA Qual (PCR) NEGATIVE SARS-CoV-2 RNA (RT-PCR) NEGATIVE 12/09/24 07:47 WBC RBC Hgb Hct MCV MCH MCHC RDW Plt Count MPV Immature Gran % (Auto) Neut % (Auto) Lymph % (Auto) [place] % (Auto) Eos % (Auto) Baso % (Auto) Lymph # (Auto) [place] # (Auto) Eos # (Auto) Baso # (Auto) Abs Immat Gran (auto) Absolute Neuts (auto) Absolute Nucleated RBC Nucleated RBC % (auto) Sodium 141 Potassium 4.4 Chloride 106 Carbon Dioxide 28 Anion Gap 11 L BUN 18 H Creatinine 1.03 Estim Creat Clear Calc 41.4 Estimated GFR 53 Random Glucose 91 Estimat Average Glucose 105 Hemoglobin A1c % 5.3 Calcium 8.9 Total Bilirubin 0.7 AST 26 ALT 13 Alkaline Phosphatase 81 Total Protein 6.9 Albumin 4.1 Triglycerides 137 Cholesterol 207 H LDL Cholesterol, Calc 135 H HDL Cholesterol 45 TSH 6.22 H Free T4 1.01 Urine Color Urine Appearance Urine pH Ur Specific [place] Urine Protein Urine Glucose (UA) Urine Ketones Urine Blood Urine Nitrite Ur Leukocyte Esterase Urine RBC Urine WBC Ur Squamous Epith Cells Urine Bacteria Hyaline Casts Urine Opiates Screen Ur Buprenorphine Scrn Ur Oxycodone Screen Urine Methadone Screen Urine Fentanyl Screen Ur Barbiturates Screen Ur Phencyclidine Scrn Ur Amphetamines Screen U Benzodiazepines Scrn Urine Cocaine Screen U Marijuana (THC) Screen Ethyl Alcohol Influenza Type A (PCR) Influenza Type B (PCR) RSV RNA Qual (PCR) SARS-CoV-2 RNA (RT-PCR) Medications Medications Current Medications Acetaminophen (Acetaminophen 325 Mg Tablet) 650 mg PO Q6H PRN PRN Reason: Headache/Pain, Scale 1-10 Al Hydroxide/Mg Hydroxide (Magnesium Hydrox/Alum Hydrox 30 Ml Oral.Susp) 30 ml PO Q6H PRN PRN Reason: Heartburn/Nausea Donepezil HCl (Donepezil Hcl 5 Mg Tablet) 5 mg PO BEDTIME [facility] Last Admin: 12/09/24 21:12 Dose: 5 mg Hydroxyzine HCl (Hydroxyzine Hcl 25 Mg Tablet) 25 mg PO Q6H PRN PRN Reason: mild anxiety Last Admin: 12/09/24 21:11 Dose: 25 mg Liothyronine Sodium (Liothyronine Sodium 25 Mcg Tablet) 12.5 mcg PO BID [facility] Last Admin: 12/10/24 09:41 Dose: 12.5 mcg Lurasidone HCl (Lurasidone Hcl 20 Mg Tablet) 20 mg PO DAILY@1230 [facility] Last Admin: 12/09/24 11:35 Dose: 20 mg Magnesium Hydroxide (Milk Of Magnesia 30 Ml Oral.Susp) 30 ml PO DAILY PRN PRN Reason: Constipation Nicotine Polacrilex (Nicotine Polacrilex 2 Mg Gum) 2 mg BUCCAL Q2H PRN PRN Reason: Nicotine Cravings Allergies Allergies Allergy/AdvReac Type Severity Reaction Status Date / Time No Known Allergies Allergy Verified 12/08/24 18:08 Assessment & Plan Assessment & Plan (1) Bipolar 1 disorder, depressed, moderate: Status: Acute Code(s): F31.32 - Bipolar disorder, current episode depressed, moderate Plan Mrs. Johnston is a 69 year-old woman with hx of Bipolar Disorder who was brought by her cousin due to increase depression, oversleeping, in bed, not taking medications (but also notes she does not have current psych providers). no SI/HI. She was last discharged from back in 07/2024 after tx for manic episode with erotomatic delusions/hypersexualized behaviors. She presents somewhat with a blank stare,poverty of thought, depressed mood. poor insight/judgment. We discussed risks, benefits and alternative treatment options. She agrees to restart latuda, which was be quickly titrated. some catatonia like features in her presentation, may benefit from low dose ativan, monitor response. She used to be on carbamazepine, however, in combination with latuda, it lowers levels of latuda and auto induces its metabolism. Pt reports depakote was too sedating. Her creatinine clearance is reduced at 41.4, less ideal to use lithium, but does need mood stabilizer given hx of mg. PLAN 1. admit to S1, CV, 15 minutes checks 2. increase latuda to 40mg daily with dinner, continue titrated as indicated. 3. obtain collateral information 4. aftercare planning. 12/10: DC Trazodone. Otherwise continue current management and treatment plan. Reason for continued inpatient stay Substantial Risk for: inability to function and rapid decompensation Time Spent With Patient Time: Total time managing care of this patient today ____ minutes.
[2024-12-10 20:00] VITALS: BP 117/62; PULSE 70; RESP 16; TEMP 36.8; O2SAT 100
[2024-12-11 08:28] VITALS: BP 116/58; PULSE 71; RESP 18; TEMP 36.2; O2SAT 100
--- NOTE | 2024-12-11 09:24 | HO.PSYCHPN ---
Subjective Subjective Date of Service: 12/11/24 Reason For Visit: Increased depression, non medication compliant Interim History: Patient feels less groggy than yesterday. Slept OK without Trazodone. Mood is depressed. Tries to stay engaged in the milieu and not isolate. Eating and appetite good. SI/HI/AVH. Review of Systems Review of Systems Pt denies chest pain, changes in vision, no constipation nor diarrhea. No abdominal pain. Mental Status Exam Mental Status Exam Narrative: Appearance: casually groomed, fair hygiene, mask-face like expression, in NAD Behavior: cooperative Psychomotor: no agitation nor overt retardation Speech: clear, mild delay in response, minimally spontaneous TP: mostly linear TC:linear Mood: depressed Affect: mask like expression, constricted affect SI: denies HI: denies VH/AH: no overt Delusions: no overt delusional content reported Insight/judgment: poor x 2. Memory/cog: alert, oriented to place, month, year and situation. Diagnostics Vital Signs (24Hr): Vital Signs - 24 hr 12/10/24 09:39 12/10/24 20:00 12/11/24 08:28 Temperature 98.2 F 97.2 F Pulse Rate 70 71 Respiratory Rate 16 18 Blood Pressure 117/62 116/58 L Pulse Oximetry 100 100 Oxygen Delivery Method Room Air Room Air Room Air BMI result Body Mass Index 24.2 Labs 12/08/24 18:46 12/09/24 07:47 Medications Medications Current Medications Acetaminophen (Acetaminophen 325 Mg Tablet) 650 mg PO Q6H PRN PRN Reason: Headache/Pain, Scale 1-10 Al Hydroxide/Mg Hydroxide (Magnesium Hydrox/Alum Hydrox 30 Ml Oral.Susp) 30 ml PO Q6H PRN PRN Reason: Heartburn/Nausea Donepezil HCl (Donepezil Hcl 5 Mg Tablet) 5 mg PO BEDTIME CARLOS Last Admin: 12/10/24 20:50 Dose: 5 mg Hydroxyzine HCl (Hydroxyzine Hcl 25 Mg Tablet) 25 mg PO Q6H PRN PRN Reason: mild anxiety Last Admin: 12/09/24 21:11 Dose: 25 mg Liothyronine Sodium (Liothyronine Sodium 25 Mcg Tablet) 12.5 mcg PO BID [facility]LOS Last Admin: 12/11/24 08:30 Dose: 12.5 mcg Lurasidone HCl (Lurasidone Hcl 20 Mg Tablet) 20 mg PO DAILY@1230 [facility] Last Admin: 12/10/24 13:48 Dose: 20 mg Magnesium Hydroxide (Milk Of Magnesia 30 Ml Oral.Susp) 30 ml PO DAILY PRN PRN Reason: Constipation Nicotine Polacrilex (Nicotine Polacrilex 2 Mg Gum) 2 mg BUCCAL Q2H PRN PRN Reason: Nicotine Cravings Allergies Allergies Allergy/AdvReac Type Severity Reaction Status Date / Time No Known Allergies Allergy Verified 12/08/24 18:08 Assessment & Plan Assessment & Plan (1) Bipolar 1 disorder, depressed, moderate: Status: Acute Code(s): F31.32 - Bipolar disorder, current episode depressed, moderate Plan Mrs. Johnston is a 69 year-old woman with hx of Bipolar Disorder who was brought by her cousin due to increase depression, oversleeping, in bed, not taking medications (but also notes she does not have current psych providers). no SI/HI. She was last discharged from back in 07/2024 after tx for manic episode with erotomatic delusions/hypersexualized behaviors. She presents somewhat with a blank stare,poverty of thought, depressed mood. poor insight/judgment. We discussed risks, benefits and alternative treatment options. She agrees to restart latuda, which was be quickly titrated. some catatonia like features in her presentation, may benefit from low dose ativan, monitor response. She used to be on carbamazepine, however, in combination with latuda, it lowers levels of latuda and auto induces its metabolism. Pt reports depakote was too sedating. Her creatinine clearance is reduced at 41.4, less ideal to use lithium, but does need mood stabilizer given hx of mg. PLAN 1. admit to S1, CV, 15 minutes checks 2. increase latuda to 40mg daily with dinner, continue titrated as indicated. 3. obtain collateral information 4. aftercare planning. 12/10: DC Trazodone. Otherwise continue current management and treatment plan. 12/11: continue current management and treatment plan. Reason for continued inpatient stay Substantial Risk for: inability to function and rapid decompensation Time Spent With Patient Time: Total time managing care of this patient today ____ minutes.
[2024-12-11 19:46] VITALS: BP 122/64; PULSE 76; RESP 18; TEMP 36; O2SAT 99
[2024-12-12 08:15] VITALS: BP 178/83; PULSE 96; RESP 18; TEMP 35.7; O2SAT 100
--- NOTE | 2024-12-12 08:54 | HO.PSYCHPN ---
Subjective Subjective Date of Service: 12/12/24 Reason For Visit: Increased depression, non medication compliant Subjective Notes: Conditional Voluntary Interim History: Pt presents as hyperverbal, some flight of ideas, overly friendly. She reports she has too many thing to do and needs to leave soon. She reports I promise I will now take my medications! pt reminded she does not have OP psych provider and this also needs to be set up. She denies SI/HI. She has been visible on the unit, asking this screen writer number of personal questions. Pt redirected. continued to interrupt this screen writer while seeing other pts. will restart carbamazepine, but may need to change latuda to another antipsychotic that will not induced metabolism of carbamazepine and its own. Review of Systems Review of Systems Pt denies chest pain, changes in vision, no constipation nor diarrhea. No abdominal pain. Mental Status Exam Mental Status Exam Narrative: Appearance: casually groomed, fair hygiene, mask-face like expression, in NAD Behavior: cooperative Psychomotor: no agitation nor overt retardation Speech: clear, mild delay in response, minimally spontaneous TP: mostly linear TC:linear Mood: depressed Affect: mask like expression, constricted affect SI: denies HI: denies VH/AH: no overt Delusions: no overt delusional content reported Insight/judgment: poor x 2. Memory/cog: alert, oriented to place, month, year and situation. Diagnostics Vital Signs (24Hr): Vital Signs - 24 hr 12/11/24 19:46 12/12/24 08:15 Temperature 96.8 F 96.3 F L Pulse Rate 76 96 Respiratory Rate 18 18 Blood Pressure 122/64 178/83 H Pulse Oximetry 99 100 Oxygen Delivery Method Room Air Room Air BMI result Body Mass Index 24.2 Labs 12/08/24 18:46 12/09/24 07:47 Medications Medications Current Medications Acetaminophen (Acetaminophen 325 Mg Tablet) 650 mg PO Q6H PRN PRN Reason: Headache/Pain, Scale 1-10 Last Admin: 12/12/24 02:23 Dose: 650 mg Al Hydroxide/Mg Hydroxide (Magnesium Hydrox/Alum Hydrox 30 Ml Oral.Susp) 30 ml PO Q6H PRN PRN Reason: Heartburn/Nausea Donepezil HCl (Donepezil Hcl 5 Mg Tablet) 5 mg PO BEDTIME CARLOS Last Admin: 12/11/24 21:15 Dose: 5 mg Hydroxyzine HCl (Hydroxyzine Hcl 25 Mg Tablet) 25 mg PO Q6H PRN PRN Reason: mild anxiety Last Admin: 12/09/24 21:11 Dose: 25 mg Liothyronine Sodium (Liothyronine Sodium 25 Mcg Tablet) 12.5 mcg PO BID [facility] Last Admin: 12/12/24 08:37 Dose: 12.5 mcg Lurasidone HCl (Lurasidone Hcl 20 Mg Tablet) 20 mg PO DAILY@1230 [facility] Last Admin: 12/11/24 13:55 Dose: 20 mg Magnesium Hydroxide (Milk Of Magnesia 30 Ml Oral.Susp) 30 ml PO DAILY PRN PRN Reason: Constipation Nicotine Polacrilex (Nicotine Polacrilex 2 Mg Gum) 2 mg BUCCAL Q2H PRN PRN Reason: Nicotine Cravings Allergies Allergies Allergy/AdvReac Type Severity Reaction Status Date / Time No Known Allergies Allergy Verified 12/08/24 18:08 Assessment & Plan Assessment & Plan (1) Bipolar 1 disorder, depressed, moderate: Status: Acute Code(s): F31.32 - Bipolar disorder, current episode depressed, moderate Plan Mrs. Johnston is a 69 year-old woman with hx of Bipolar Disorder who was brought by her cousin due to increase depression, oversleeping, in bed, not taking medications (but also notes she does not have current psych providers). no SI/HI. She was last discharged from back in 07/2024 after tx for manic episode with erotomatic delusions/hypersexualized behaviors. She presents somewhat with a blank stare,poverty of thought, depressed mood. poor insight/judgment. We discussed risks, benefits and alternative treatment options. She agrees to restart latuda, which was be quickly titrated. some catatonia like features in her presentation, may benefit from low dose ativan, monitor response. She used to be on carbamazepine, however, in combination with latuda, it lowers levels of latuda and auto induces its metabolism. Pt reports depakote was too sedating. Her creatinine clearance is reduced at 41.4, less ideal to use lithium, but does need mood stabilizer given hx of mg. PLAN 1. admit to S1, CV, 15 minutes checks 2. increase latuda to 40mg daily with dinner, continue titrated as indicated. 3. obtain collateral information 4. aftercare planning. 12/10: DC Trazodone. Otherwise continue current management and treatment plan. 12/11: continue current management and treatment plan. 12/12 start carbamazepine 200mg po BID. olanzapine 10mg po q6h prn agitation, may need another antipsychotic. Reason for continued inpatient stay Substantial Risk for: inability to function Time Spent With Patient Time: Total time managing care of this patient today ____ minutes.
[2024-12-12] MEDS: OLANZapine ODT 10 MG TAB.RAPDIS TRANSLINGU (11:22)
[2024-12-12 20:00] VITALS: BP 107/57; PULSE 85; RESP 16; TEMP 36.3; O2SAT 100
[2024-12-13 08:00] VITALS: BP 142/84; PULSE 95; RESP 18; TEMP 35.8; O2SAT 100
--- NOTE | 2024-12-13 10:08 | P.PNPSI_ITS ---
Subjective Subjective Date of Service: 12/13/24 Reason For Visit: Increased depression, non medication compliant Subjective Notes: Conditional Voluntary Interim History: Patient seen case discussed in rounds with staff. Nurses report intrusive expansive on unit some pressured speech pt focused on head ct scan and repeated questions regarding going home Medication Compliance: Yes Mental Status Exam Mental Status Exam Narrative: Appearance: casually groomed, fair hygiene, smiling Behavior: cooperative Psychomotor: no agitation nor overt retardation Speech: presurred TP: mostly linear TC:on d/c Mood: happy Affect: expansive SI: denies HI: denies VH/AH: no overt Delusions: no overt delusional content reported Insight/judgment: poor x 2. Memory/cog: alert, oriented to place, month, year and situation impaired judgement regarding tx taking medication and having realistic plan to take meds outpt. Diagnostics Vital Signs (24Hr): Vital Signs - 24 hr 12/12/24 20:00 12/13/24 08:00 Temperature 97.3 F 96.5 F L Pulse Rate 85 95 Respiratory Rate 16 18 Blood Pressure 107/57 L 142/84 H Pulse Oximetry 100 100 Oxygen Delivery Method Room Air BMI result Body Mass Index 24.2 Labs 12/08/24 18:46 12/09/24 07:47 Medications Medications Current Medications Acetaminophen (Acetaminophen 325 Mg Tablet) 650 mg PO Q6H PRN PRN Reason: Headache/Pain, Scale 1-10 Last Admin: 12/13/24 08:19 Dose: 650 mg Al Hydroxide/Mg Hydroxide (Magnesium Hydrox/Alum Hydrox 30 Ml Oral.Susp) 30 ml PO Q6H PRN PRN Reason: Heartburn/Nausea Carbamazepine (Carbamazepine 200 Mg Tablet) 200 mg PO BID [facility] Last Admin: 12/13/24 08:21 Dose: 200 mg Donepezil HCl (Donepezil Hcl 5 Mg Tablet) 5 mg PO BEDTIME CARLOS Last Admin: 12/12/24 20:37 Dose: 5 mg Hydroxyzine HCl (Hydroxyzine Hcl 25 Mg Tablet) 25 mg PO Q6H PRN PRN Reason: mild anxiety Last Admin: 12/09/24 21:11 Dose: 25 mg Liothyronine Sodium (Liothyronine Sodium 25 Mcg Tablet) 12.5 mcg PO BID [facility] Last Admin: 12/13/24 08:20 Dose: 12.5 mcg Lurasidone HCl (Lurasidone Hcl 40 Mg Tablet) 40 mg PO DAILY@1230 [facility] Last Admin: 12/12/24 12:01 Dose: 40 mg Magnesium Hydroxide (Milk Of Magnesia 30 Ml Oral.Susp) 30 ml PO DAILY PRN PRN Reason: Constipation Nicotine Polacrilex (Nicotine Polacrilex 2 Mg Gum) 2 mg BUCCAL Q2H PRN PRN Reason: Nicotine Cravings Olanzapine (Olanzapine Odt 10 Mg Tab.Rapdis) 10 mg TRANSLINGU Q6H PRN PRN Reason: agitation Last Admin: 12/12/24 11:22 Dose: 10 mg Allergies Allergies Allergy/AdvReac Type Severity Reaction Status Date / Time No Known Allergies Allergy Verified 12/08/24 18:08 Assessment & Plan Assessment & Plan (1) Bipolar 1 disorder, depressed, moderate: Status: Acute Code(s): F31.32 - Bipolar disorder, current episode depressed, moderate Plan Mrs. Johnston is a 69 year-old woman with hx of Bipolar Disorder who was brought by her cousin due to increase depression, oversleeping, in bed, not taking medications (but also notes she does not have current psych providers). no SI/HI. She was last discharged from back in 07/2024 after tx for manic episode with erotomatic delusions/hypersexualized behaviors. She presents somewhat with a blank stare,poverty of thought, depressed mood. poor insight/judgment. We discussed risks, benefits and alternative treatment options. She agrees to restart latuda, which was be quickly titrated. some catatonia like features in her presentation, may benefit from low dose ativan, monitor response. She used to be on carbamazepine, however, in combination with latuda, it lowers levels of latuda and auto induces its metabolism. Pt reports depakote was too sedating. Her creatinine clearance is reduced at 41.4, less ideal to use lithium, but does need mood stabilizer given hx of mg. PLAN 1. admit to S1, CV, 15 minutes checks 2. increase latuda to 40mg daily with dinner, continue titrated as indicated. 3. obtain collateral information 4. aftercare planning. 12/10: DC Trazodone. Otherwise continue current management and treatment plan. 12/11: continue current management and treatment plan. 12/12 start carbamazepine 200mg po BID. olanzapine 10mg po q6h prn agitation, may need another antipsychotic. 12/13/24 discussed use of tyler pts risks when she is manic and lack of cooperation dangerous behavior Reason for continued inpatient stay Substantial Risk for: inability to function, rapid decompensation and med/psych decompensation Time Spent With Patient Time: Total time managing care of this patient today ____ minutes.
--- NOTE | 2024-12-13 18:41 | PC.NURSE ---
Patient signed a three day notice today.
[2024-12-13 20:00] VITALS: BP 139/69; PULSE 85; RESP 18; TEMP 36.2; O2SAT 99
[2024-12-14 08:00] VITALS: BP 147/72; PULSE 92; RESP 16; TEMP 36.3; O2SAT 100
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
[2024-12-14 20:00] VITALS: BP 132/89; PULSE 100; RESP 18; TEMP 36.3; O2SAT 97
[2024-12-15 08:00] VITALS: BP 156/92; PULSE 81; RESP 16; TEMP 36.3; O2SAT 100
--- NOTE | 2024-12-15 13:14 | P.PNPSI_ITS ---
Subjective Subjective Date of Service: 12/15/24 Reason For Visit: Bipolar disorder/noncompliant Subjective Notes: Conditional Voluntary Interim History: Patient superficially cooperative intrusive hyperverbal at times with other patients. She has been cooperative with trying to transition to a more stable living environment Medication Compliance: Yes Attending Groups: Yes Mental Status Exam Mental Status Exam Narrative: Appearance: casually groomed, fair hygiene, smiling Behavior: cooperative Psychomotor: no agitation nor overt retardation Speech: presurred TP: mostly linear TC: Focused on changed to Abilify focused on hopefully transitioning to housing in [place] and leaving her Mood: Somewhat euphoric Affect: expansive SI: denies HI: denies VH/AH: no overt Delusions: no overt delusional content reported Insight/judgment: poor x 2. Superficially X accepting of treatment but then can become impulsive Memory/cog: alert, oriented to place, month, year and situation. Diagnostics Vital Signs (24Hr): Vital Signs - 24 hr 12/14/24 20:00 12/15/24 08:00 Temperature 97.3 F 97.3 F Pulse Rate 100 81 Respiratory Rate 18 16 Blood Pressure 132/89 156/92 H Pulse Oximetry 97 100 Oxygen Delivery Method Room Air BMI result Body Mass Index 24.2 Labs 12/08/24 18:46 12/09/24 07:47 Imaging Radiology Impressions: ITS Impressions Lumbar Spine X-Ray 12/13/24 16:31 IMPRESSION: Chronic loss of L3 and L4 will heights and degenerative disc changes from L2-3 through L4-5 disc levels. There is moderate spondylosis as well at these disc levels. These findings are unchanged to previous lumbar spine exam 02/01/2024. No new findings. No acute intracranial process seen. Electronically signed by: Nas Gutiérrez MD 12/14/2024 07:24 AM EDT RP Head CT 12/13/24 17:23 IMPRESSION: Chronic loss of L3 and L4 will heights and degenerative disc changes from L2-3 through L4-5 disc levels. There is moderate spondylosis as well at these disc levels. These findings are unchanged to previous lumbar spine exam 02/01/2024. No new findings. No acute intracranial process seen. Electronically signed by: Nas Gutiérrez MD 12/14/2024 07:24 AM EDT RP Medications Medications Current Medications Acetaminophen (Acetaminophen 325 Mg Tablet) 650 mg PO Q6H PRN PRN Reason: Headache/Pain, Scale 1-10 Last Admin: 12/15/24 03:47 Dose: 650 mg Al Hydroxide/Mg Hydroxide (Magnesium Hydrox/Alum Hydrox 30 Ml Oral.Susp) 30 ml PO Q6H PRN PRN Reason: Heartburn/Nausea Aripiprazole (Aripiprazole 2 Mg Tablet) 4 mg PO DAILY [facility] Last Admin: 12/15/24 08:24 Dose: 4 mg Carbamazepine (Carbamazepine 200 Mg Tablet) 200 mg PO BID [facility] Last Admin: 12/15/24 08:24 Dose: 200 mg Donepezil HCl (Donepezil Hcl 10 Mg Tablet) 10 mg PO BEDTIME [facility] Last Admin: 12/14/24 20:55 Dose: 10 mg Hydroxyzine HCl (Hydroxyzine Hcl 25 Mg Tablet) 25 mg PO Q6H PRN PRN Reason: mild anxiety Last Admin: 12/14/24 20:55 Dose: 25 mg Liothyronine Sodium (Liothyronine Sodium 25 Mcg Tablet) 12.5 mcg PO BID [facility] Last Admin: 12/15/24 08:24 Dose: 12.5 mcg Lurasidone HCl (Lurasidone Hcl 20 Mg Tablet) 20 mg PO DAILY@1230 [facility] Last Admin: 12/15/24 12:32 Dose: 20 mg Magnesium Hydroxide (Milk Of Magnesia 30 Ml Oral.Susp) 30 ml PO DAILY PRN PRN Reason: Constipation Nicotine Polacrilex (Nicotine Polacrilex 2 Mg Gum) 2 mg BUCCAL Q2H PRN PRN Reason: Nicotine Cravings Olanzapine (Olanzapine Odt 10 Mg Tab.Rapdis) 10 mg TRANSLINGU Q6H PRN PRN Reason: agitation Last Admin: 12/12/24 11:22 Dose: 10 mg Allergies Allergies Allergy/AdvReac Type Severity Reaction Status Date / Time No Known Allergies Allergy Verified 12/08/24 18:08 Assessment & Plan Assessment & Plan (1) Bipolar 1 disorder, depressed, moderate: Status: Acute Code(s): F31.32 - Bipolar disorder, current episode depressed, moderate Plan Mrs. Johnston is a 69 year-old woman with hx of Bipolar Disorder who was brought by her cousin due to increase depression, oversleeping, in bed, not taking medications (but also notes she does not have current psych providers). no SI/HI. She was last discharged from back in 07/2024 after tx for manic episode with erotomatic delusions/hypersexualized behaviors. She presents somewhat with a blank stare,poverty of thought, depressed mood. poor insight/judgment. We discussed risks, benefits and alternative treatment options. She agrees to restart latuda, which was be quickly titrated. some catatonia like features in her presentation, may benefit from low dose ativan, monitor response. She used to be on carbamazepine, however, in combination with latuda, it lowers levels of latuda and auto induces its metabolism. Pt reports depakote was too sedating. Her creatinine clearance is reduced at 41.4, less ideal to use lithium, but does need mood stabilizer given hx of mg. PLAN 1. admit to S1, CV, 15 minutes checks 2. increase latuda to 40mg daily with dinner, continue titrated as indicated. 3. obtain collateral information 4. aftercare planning. 12/10: DC Trazodone. Otherwise continue current management and treatment plan. 12/11: continue current management and treatment plan. 12/12 start carbamazepine 200mg po BID. olanzapine 10mg po q6h prn agitation, may need another antipsychotic. 12/13/24 discussed use of tyler pts risks when she is manic and lack of cooperation dangerous behavior 12/14/2024 Patient did retract her 3 day notice. She is more accepting of treatment and agreeable to trying to cheat inch Latuda to Abilify long-acting injectable to better ensure compliance. Patient states she is on board with this and is sick of cycling and can not really explain why she has discontinued her medicines multiple times taper Latuda start Abilify continue Tegretol 12/15/2024 Taper Latuda increase Abilify gradually trying to convert to long-acting injectable Tegretol level in the morning patient remains pressured somewhat panic Patient educated on: diagnosis and medication risk/benefits Informed Consent: further education needed Reason for continued inpatient stay Substantial Risk for: inability to function and rapid decompensation Time Spent With Patient Time: Total time managing care of this patient today _30___ minutes.
[2024-12-15 20:00] VITALS: BP 136/63; PULSE 98; TEMP 36.3; O2SAT 100
[2024-12-16 08:00] VITALS: BP 157/67; PULSE 87; RESP 16; TEMP 36.4; O2SAT 100
[2024-12-16 09:18] LABS: Carbamazepine Tegretol 12.4 mcg/mL (5.0-12.0)
[2024-12-16 09:20] LABS: Anion Gap 11 (12-20); Blood Urea Nitrogen 19 mg/dL (9-16); Calcium 8.9 mg/dL (8.4-10.2); Carbon Dioxide 28 mmol/L (22-29); Chloride 104 mmol/L (96-108); Creatinine Clr Calc Pharmacy 56.9; Estimated Glomerular Filt Rate > 60; Potassium 4.2 mmol/L (3.3-5.1); Sodium 139 mmol/L (135-145)
--- NOTE | 2024-12-16 14:30 | HO.PSYCHPN ---
Subjective Subjective Date of Service: 12/16/24 Reason For Visit: Bipolar disorder/noncompliant Subjective Notes: Conditional Voluntary Interim History: Patient seen psychiatric follow-up case reviewed with treatment team chart reviewed patient seen. Tegretol level slightly above normal mood shows improvement less intrusiveness. Sleeping and appetite okay cooperative with medication. Latuda tapered Abilify started Medication Compliance: Yes Side effects from medications: No Mental Status Exam Mental Status Exam Narrative: Appearance: casually groomed, fair hygiene, smiling Behavior: cooperative Psychomotor: no agitation nor overt retardation Speech: presurred TP: mostly linear TC: Focused on moving and whether she can afford it asking repeated questions regarding Abilify as mood stabilizing agent Mood: Somewhat euphoric Affect: expansive SI: denies HI: denies VH/AH: no overt Delusions: no overt delusional content reported Insight/judgment: Improving judgment and impulse control Memory/cog: alert, oriented to place, month, year and situation. Diagnostics Vital Signs (24Hr): Vital Signs - 24 hr 12/15/24 20:00 12/16/24 08:00 Temperature 97.4 F 97.5 F Pulse Rate 98 87 Respiratory Rate 16 Blood Pressure 136/63 157/67 H Pulse Oximetry 100 100 Oxygen Delivery Method Room Air Room Air BMI result Body Mass Index 24.2 Labs 12/08/24 18:46 12/16/24 07:58 Labs: Laboratory Results - last 48 hr 12/16/24 07:58 Sodium 139 Potassium 4.2 Chloride 104 Carbon Dioxide 28 Anion Gap 11 L BUN 19 H Creatinine 0.75 Estim Creat Clear Calc 56.9 Estimated GFR > 60 Random Glucose 83 Calcium 8.9 Carbamazepine 12.4 H Imaging Radiology Impressions: ITS Impressions Lumbar Spine X-Ray 12/13/24 16:31 IMPRESSION: Chronic loss of L3 and L4 will heights and degenerative disc changes from L2-3 through L4-5 disc levels. There is moderate spondylosis as well at these disc levels. These findings are unchanged to previous lumbar spine exam 02/01/2024. No new findings. No acute intracranial process seen. Electronically signed by: Nas Gutiérrez MD 12/14/2024 07:24 AM EDT RP Head CT 12/13/24 17:23 IMPRESSION: Chronic loss of L3 and L4 will heights and degenerative disc changes from L2-3 through L4-5 disc levels. There is moderate spondylosis as well at these disc levels. These findings are unchanged to previous lumbar spine exam 02/01/2024. No new findings. No acute intracranial process seen. Electronically signed by: Nas Gutiérrez MD 12/14/2024 07:24 AM EDT Medications Medications Current Medications Acetaminophen (Acetaminophen 325 Mg Tablet) 650 mg PO Q6H PRN PRN Reason: Headache/Pain, Scale 1-10 Last Admin: 12/16/24 12:48 Dose: 650 mg Al Hydroxide/Mg Hydroxide (Magnesium Hydrox/Alum Hydrox 30 Ml Oral.Susp) 30 ml PO Q6H PRN PRN Reason: Heartburn/Nausea Aripiprazole (Aripiprazole 2 Mg Tablet) 4 mg PO DAILY [facility] Last Admin: 12/16/24 08:36 Dose: 4 mg Carbamazepine (Carbamazepine 200 Mg Tablet) 200 mg PO BID [facility] Last Admin: 12/16/24 08:36 Dose: 200 mg Donepezil HCl (Donepezil Hcl 10 Mg Tablet) 10 mg PO BEDTIME [facility] Last Admin: 12/15/24 19:51 Dose: 10 mg Hydroxyzine HCl (Hydroxyzine Hcl 25 Mg Tablet) 25 mg PO Q6H PRN PRN Reason: mild anxiety Last Admin: 12/14/24 20:55 Dose: 25 mg Liothyronine Sodium (Liothyronine Sodium 25 Mcg Tablet) 12.5 mcg PO BID [facility] Last Admin: 12/16/24 08:36 Dose: 12.5 mcg Lurasidone HCl (Lurasidone Hcl 20 Mg Tablet) 20 mg PO DAILY@1230 [facility] Last Admin: 12/16/24 12:02 Dose: 20 mg Magnesium Hydroxide (Milk Of Magnesia 30 Ml Oral.Susp) 30 ml PO DAILY PRN PRN Reason: Constipation Nicotine Polacrilex (Nicotine Polacrilex 2 Mg Gum) 2 mg BUCCAL Q2H PRN PRN Reason: Nicotine Cravings Olanzapine (Olanzapine Odt 10 Mg Tab.Rapdis) 10 mg TRANSLINGU Q6H PRN PRN Reason: agitation Last Admin: 12/12/24 11:22 Dose: 10 mg Allergies Allergies Allergy/AdvReac Type Severity Reaction Status Date / Time No Known Allergies Allergy Verified 12/08/24 18:08 Assessment & Plan Assessment & Plan (1) Bipolar 1 disorder, depressed, moderate: Status: Acute Code(s): F31.32 - Bipolar disorder, current episode depressed, moderate Plan Mrs. Johnston is a 69 year-old woman with hx of Bipolar Disorder who was brought by her cousin due to increase depression, oversleeping, in bed, not taking medications (but also notes she does not have current psych providers). no SI/HI. She was last discharged from back in 07/2024 after tx for manic episode with erotomatic delusions/hypersexualized behaviors. She presents somewhat with a blank stare,poverty of thought, depressed mood. poor insight/judgment. We discussed risks, benefits and alternative treatment options. She agrees to restart latuda, which was be quickly titrated. some catatonia like features in her presentation, may benefit from low dose ativan, monitor response. She used to be on carbamazepine, however, in combination with latuda, it lowers levels of latuda and auto induces its metabolism. Pt reports depakote was too sedating. Her creatinine clearance is reduced at 41.4, less ideal to use lithium, but does need mood stabilizer given hx of mg. PLAN 1. admit to S1, CV, 15 minutes checks 2. increase latuda to 40mg daily with dinner, continue titrated as indicated. 3. obtain collateral information 4. aftercare planning. 12/10: DC Trazodone. Otherwise continue current management and treatment plan. 12/11: continue current management and treatment plan. 12/12 start carbamazepine 200mg po BID. olanzapine 10mg po q6h prn agitation, may need another antipsychotic. 12/13/24 discussed use of tyler pts risks when she is manic and lack of cooperation dangerous behavior 12/14/2024 Patient did retract her 3 day notice. She is more accepting of treatment and agreeable to trying to cheat inch Latuda to Abilify long-acting injectable to better ensure compliance. Patient states she is on board with this and is sick of cycling and can not really explain why she has discontinued her medicines multiple times taper Latuda start Abilify continue Tegretol 12/15/2024 Taper Latuda increase Abilify gradually trying to convert to long-acting injectable Tegretol level in the morning patient remains pressured somewhat panic 12/16/2024 . Latuda continue Abilify monitor for restlessness akathisia plan to convert to long-acting injectable Tegretol level slightly high will repeat it does eventually become self inducing metabolism. Monitor for confusion double vision recheck labs will also check sodium Patient educated on: diagnosis Informed Consent: understands Reason for continued inpatient stay Substantial Risk for: inability to function, rapid decompensation and med/psych decompensation Time Spent With Patient Time: Total time managing care of this patient today _30___ minutes.
[2024-12-16 20:00] VITALS: BP 139/63; PULSE 99; RESP 16; TEMP 36.1; O2SAT 100
[2024-12-17 08:43] VITALS: BP 160/89; PULSE 92; RESP 18; TEMP 36.3; O2SAT 100
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
[2024-12-17 20:00] VITALS: BP 149/67; PULSE 96; RESP 18; TEMP 36.3; O2SAT 97
[2024-12-18 08:55] VITALS: BP 173/77; PULSE 89; RESP 16; TEMP 36.5; O2SAT 100
[2024-12-18 09:55] VITALS: BP 135/80; PULSE 98
--- NOTE | 2024-12-18 10:51 | HO.PSYCHPN ---
Subjective Subjective Date of Service: 12/18/24 Reason For Visit: Bipolar disorder/noncompliant Interim History: met with pt; discussed with team pt again asks if she can go home but is reminded she'll need to talk to Dr. Brian; c/o foul smelling order from urine; denies dysuria, no discharge. Agrees with ordering labs Mental Status Exam Mental Status Exam Narrative: Appearance: casually groomed, fair hygiene, smiling Behavior: cooperative Psychomotor: no agitation nor overt retardation Speech: presurred TP: mostly linear TC: Focused on moving and whether she can afford it asking repeated questions regarding Abilify as mood stabilizing agent Mood: Somewhat euphoric Affect: expansive SI: denies HI: denies VH/AH: no overt Delusions: no overt delusional content reported Insight/judgment: Improving judgment and impulse control Memory/cog: alert, oriented to place, month, year and situation. Diagnostics Vital Signs (24Hr): Vital Signs - 24 hr 12/17/24 20:00 12/18/24 08:55 12/18/24 09:55 Temperature 97.4 F 97.7 F Pulse Rate 96 89 98 Respiratory Rate 18 16 Blood Pressure 149/67 H 173/77 H 135/80 Pulse Oximetry 97 100 Oxygen Delivery Method Room Air Room Air BMI result Body Mass Index 24.2 Labs 12/08/24 18:46 12/16/24 07:58 Imaging Radiology Impressions: ITS Impressions Lumbar Spine X-Ray 12/13/24 16:31 IMPRESSION: Chronic loss of L3 and L4 will heights and degenerative disc changes from L2-3 through L4-5 disc levels. There is moderate spondylosis as well at these disc levels. These findings are unchanged to previous lumbar spine exam 02/01/2024. No new findings. No acute intracranial process seen. Electronically signed by: Nas Gutiérrez MD 12/14/2024 07:[address] 12/13/24 17:23 IMPRESSION: Chronic loss of L3 and L4 will heights and degenerative disc changes from L2-3 through L4-5 disc levels. There is moderate spondylosis as well at these disc levels. These findings are unchanged to previous lumbar spine exam 02/01/2024. No new findings. No acute intracranial process seen. Electronically signed by: Nas Gutiérrez MD 12/14/2024 07:24 AM EDT RP Medications Medications Current Medications Acetaminophen (Acetaminophen 325 Mg Tablet) 650 mg PO Q6H PRN PRN Reason: Headache/Pain, Scale 1-10 Last Admin: 12/18/24 03:43 Dose: 650 mg Al Hydroxide/Mg Hydroxide (Magnesium Hydrox/Alum Hydrox 30 Ml Oral.Susp) 30 ml PO Q6H PRN PRN Reason: Heartburn/Nausea Aripiprazole (Aripiprazole 5 Mg Tablet) 5 mg PO DAILY [facility] Last Admin: 12/18/24 09:48 Dose: 5 mg Carbamazepine (Carbamazepine 200 Mg Tablet) 200 mg PO BID [facility] Last Admin: 12/18/24 09:48 Dose: 200 mg Donepezil HCl (Donepezil Hcl 10 Mg Tablet) 10 mg PO BEDTIME [facility] Last Admin: 12/17/24 20:33 Dose: 10 mg Hydroxyzine HCl (Hydroxyzine Hcl 25 Mg Tablet) 25 mg PO Q6H PRN PRN Reason: mild anxiety Last Admin: 12/14/24 20:55 Dose: 25 mg Liothyronine Sodium (Liothyronine Sodium 25 Mcg Tablet) 12.5 mcg PO BID [facility] Last Admin: 12/18/24 09:48 Dose: 12.5 mcg Magnesium Hydroxide (Milk Of Magnesia 30 Ml Oral.Susp) 30 ml PO DAILY PRN PRN Reason: Constipation Nicotine Polacrilex (Nicotine Polacrilex 2 Mg Gum) 2 mg BUCCAL Q2H PRN PRN Reason: Nicotine Cravings Olanzapine (Olanzapine Odt 10 Mg Tab.Rapdis) 10 mg TRANSLINGU Q6H PRN PRN Reason: agitation Last Admin: 12/12/24 11:22 Dose: 10 mg Allergies Allergies Allergy/AdvReac Type Severity Reaction Status Date / Time No Known Allergies Allergy Verified 12/08/24 18:08 Assessment & Plan Assessment & Plan (1) Bipolar 1 disorder, depressed, moderate: Status: Acute Code(s): F31.32 - Bipolar disorder, current episode depressed, moderate Plan Mrs. Johnston is a 69 year-old woman with hx of Bipolar Disorder who was brought by her cousin due to increase depression, oversleeping, in bed, not taking medications (but also notes she does not have current psych providers). no SI/HI. She was last discharged from [facility] back in 07/2024 after tx for manic episode with erotomatic delusions/hypersexualized behaviors. She presents somewhat with a blank stare,poverty of thought, depressed mood. poor insight/judgment. We discussed risks, benefits and alternative treatment options. She agrees to restart latuda, which was be quickly titrated. some catatonia like features in her presentation, may benefit from low dose ativan, monitor response. She used to be on carbamazepine, however, in combination with latuda, it lowers levels of latuda and auto induces its metabolism. Pt reports depakote was too sedating. Her creatinine clearance is reduced at 41.4, less ideal to use lithium, but does need mood stabilizer given hx of mg. PLAN 1. admit to S1, CV, 15 minutes checks 2. increase latuda to 40mg daily with dinner, continue titrated as indicated. 3. obtain collateral information 4. aftercare planning. 12/10: DC Trazodone. Otherwise continue current management and treatment plan. 12/11: continue current management and treatment plan. 12/12 start carbamazepine 200mg po BID. olanzapine 10mg po q6h prn agitation, may need another antipsychotic. 12/13/24 discussed use of tyler pts risks when she is manic and lack of cooperation dangerous behavior 12/14/2024 Patient did retract her 3 day notice. She is more accepting of treatment and agreeable to trying to cheat inch Latuda to Abilify long-acting injectable to better ensure compliance. Patient states she is on board with this and is sick of cycling and can not really explain why she has discontinued her medicines multiple times taper Latuda start Abilify continue Tegretol 12/15/2024 Taper Latuda increase Abilify gradually trying to convert to long-acting injectable Tegretol level in the morning patient remains pressured somewhat panic 12/16/2024 . Latuda continue Abilify monitor for restlessness akathisia plan to convert to long-acting injectable Tegretol level slightly high will repeat it does eventually become self inducing metabolism. Monitor for confusion double vision recheck labs will also check sodium 12/17 continue treatment plan -sodium WNL on 12/16 12/18 c/o foul smelling urine; no dysuria; ordered UA, CT/NG, BV panel, RPR Patient educated on: diagnosis and medical condition Informed Consent: understands and further education needed Reason for continued inpatient stay Substantial Risk for: rapid decompensation Time Spent With Patient Time: Total time managing care of this patient today ____ minutes.
[2024-12-18 14:45] LABS: Appearance Urine Clear; Glucose Urine UA Negative (Negative); PH 5.5 (5.0-9.0); Specific Gravity - Urine >= 1.030 (1.005-1.025); UMIC TRIGGER UACC YES
[2024-12-18 14:47] LABS: UACC Culture Trigger YES
--- NOTE | 2024-12-18 15:14 | PC.NURSE ---
Patient complained of a funny feeling down there in her [place] area and a foul smell. She thinks that something is wrong. Dr. Flores visited and several new orders were obtained. 20ml clean catch clear yellow urine collected and patient agreed to do self vaginal swabs for other tests to rule out SDI. Swabs collected with two chaperones and sent to lab today at 1515.
[2024-12-18 19:20] VITALS: BP 156/74; PULSE 96; RESP 16; TEMP 36.6; O2SAT 100
[2024-12-19 08:30] LABS: Syphilis Screen Nonreactive (Nonreactive)
[2024-12-19 08:40] VITALS: BP 134/71; PULSE 94; RESP 18; TEMP 36.4; O2SAT 99
[2024-12-19 10:27] LABS: Bacterial Vaginosis PCR NEGATIVE (Negative); Candida Group PCR NOT DETECTED (Not Detect); Candida glab krusei PCR NOT DETECTED (Not Detect); Trichomonas vaginalis PCR NOT DETECTED (Not Detect)
[2024-12-19 10:58] LABS: CT PCR NOT DETECTED (Not Detect.); NG PCR NOT DETECTED (Not Detect.)
--- NOTE | 2024-12-19 13:41 | HO.PSYCHPN ---
Subjective Subjective Date of Service: 12/19/24 Reason For Visit: Bipolar disorder/noncompliant Subjective Notes: Conditional Voluntary Interim History: Patient is somewhat intrusive and pressured at times more X Saleh of an impulsive to some degree patient cooperative takes Mental Status Exam Mental Status Exam Narrative: Appearance: casually groomed, fair hygiene, smiling Behavior: cooperative Psychomotor: no agitation nor overt retardation Speech: presurred TP: mostly linear TC: Focused on moving and whether she can afford it asking repeated questions regarding Abilify as mood stabilizing agent Mood: Somewhat euphoric Affect: expansive SI: denies HI: denies VH/AH: no overt Delusions: no overt delusional content reported Insight/judgment: Improving judgment and impulse control Memory/cog: alert, oriented to place, month, year and situation. Diagnostics Vital Signs (24Hr): Vital Signs - 24 hr 12/18/24 19:20 12/19/24 08:40 Temperature 97.9 F 97.6 F Pulse Rate 96 94 Respiratory Rate 16 18 Blood Pressure 156/74 H 134/71 Pulse Oximetry 100 99 Oxygen Delivery Method Room Air Room Air BMI result Body Mass Index 24.2 Labs 12/08/24 18:46 12/16/24 07:58 Labs: Laboratory Results - last 48 hr 12/18/24 12/18/24 12/18/24 14:25 14:50 14:56 Hold Purple Top SEE NOTE Urine Color Yellow Urine Appearance Clear Urine pH 5.5 Ur Specific [place] >= 1.030 H Urine Protein Negative Urine Glucose (UA) Negative Urine Ketones Trace Urine Blood Negative Urine Nitrite Negative Ur Leukocyte Esterase Small (1+) H Urine RBC 0-2 Urine WBC 6-10 H Ur Squamous Epith Cells 0-2 Urine Bacteria None Seen Hyaline Casts 0-2 T.pallidum Ab (EIA) Nonreactive Chlamydia Culture Cancelled Chlamydia Cult Source Cancelled Chlam trachomat DNA PCR NOT DETECTED N.gonorrhoeae DNA (PCR) NOT DETECTED T. vaginalis (PCR) NOT DETECTED Bact vaginosis (PCR) NEGATIVE C. krusei/glabrata (PCR) NOT DETECTED Jenn group (PCR) NOT DETECTED Imaging Radiology Impressions: ITS Impressions Lumbar Spine X-Ray 12/13/24 16:31 IMPRESSION: Chronic loss of L3 and L4 will heights and degenerative disc changes from L2-3 through L4-5 disc levels. There is moderate spondylosis as well at these disc levels. These findings are unchanged to previous lumbar spine exam 02/01/2024. No new findings. No acute intracranial process seen. Electronically signed by: Nas Gutiérrez MD 12/14/2024 07:24 AM EDT RP Head CT 12/13/24 17:23 IMPRESSION: Chronic loss of L3 and L4 will heights and degenerative disc changes from L2-3 through L4-5 disc levels. There is moderate spondylosis as well at these disc levels. These findings are unchanged to previous lumbar spine exam 02/01/2024. No new findings. No acute intracranial process seen. Electronically signed by: Nas Gutiérrez MD 12/14/2024 07:24 AM EDT RP Medications Medications Current Medications Acetaminophen (Acetaminophen 325 Mg Tablet) 650 mg PO Q6H PRN PRN Reason: Headache/Pain, Scale 1-10 Last Admin: 12/19/24 12:22 Dose: 650 mg Al Hydroxide/Mg Hydroxide (Magnesium Hydrox/Alum Hydrox 30 Ml Oral.Susp) 30 ml PO Q6H PRN PRN Reason: Heartburn/Nausea Aripiprazole (Aripiprazole 10 Mg Tablet) 10 mg PO DAILY [facility] Carbamazepine (Carbamazepine 200 Mg Tablet) 200 mg PO BID [facility] Last Admin: 12/19/24 08:58 Dose: 200 mg Donepezil HCl (Donepezil Hcl 5 Mg Tablet) 5 mg PO BEDTIME [facility] Hydroxyzine HCl (Hydroxyzine Hcl 25 Mg Tablet) 25 mg PO Q6H PRN PRN Reason: mild anxiety Last Admin: 12/14/24 20:55 Dose: 25 mg Liothyronine Sodium (Liothyronine Sodium 25 Mcg Tablet) 12.5 mcg PO BID [facility] Last Admin: 12/19/24 08:56 Dose: 12.5 mcg Magnesium Hydroxide (Milk Of Magnesia 30 Ml Oral.Susp) 30 ml PO DAILY PRN PRN Reason: Constipation Nicotine Polacrilex (Nicotine Polacrilex 2 Mg Gum) 2 mg BUCCAL Q2H PRN PRN Reason: Nicotine Cravings Olanzapine (Olanzapine Odt 10 Mg Tab.Rapdis) 10 mg TRANSLINGU Q6H PRN PRN Reason: agitation Last Admin: 12/12/24 11:22 Dose: 10 mg Allergies Allergies Allergy/AdvReac Type Severity Reaction Status Date / Time No Known Allergies Allergy Verified 12/08/24 18:08 Assessment & Plan Assessment & Plan (1) Bipolar 1 disorder, depressed, moderate: Status: Acute Code(s): F31.32 - Bipolar disorder, current episode depressed, moderate Plan Mrs. Johnston is a 69 year-old woman with hx of Bipolar Disorder who was brought by her cousin due to increase depression, oversleeping, in bed, not taking medications (but also notes she does not have current psych providers). no SI/HI. She was last discharged from back in 07/2024 after tx for manic episode with erotomatic delusions/hypersexualized behaviors. She presents somewhat with a blank stare,poverty of thought, depressed mood. poor insight/judgment. We discussed risks, benefits and alternative treatment options. She agrees to restart latuda, which was be quickly titrated. some catatonia like features in her presentation, may benefit from low dose ativan, monitor response. She used to be on carbamazepine, however, in combination with latuda, it lowers levels of latuda and auto induces its metabolism. Pt reports depakote was too sedating. Her creatinine clearance is reduced at 41.4, less ideal to use lithium, but does need mood stabilizer given hx of mg. PLAN 1. admit to S1, CV, 15 minutes checks 2. increase latuda to 40mg daily with dinner, continue titrated as indicated. 3. obtain collateral information 4. aftercare planning. 12/10: DC Trazodone. Otherwise continue current management and treatment plan. 12/11: continue current management and treatment plan. 12/12 start carbamazepine 200mg po BID. olanzapine 10mg po q6h prn agitation, may need another antipsychotic. 12/13/24 discussed use of tyler pts risks when she is manic and lack of cooperation dangerous behavior 12/14/2024 Patient did retract her 3 day notice. She is more accepting of treatment and agreeable to trying to cheat inch Latuda to Abilify long-acting injectable to better ensure compliance. Patient states she is on board with this and is sick of cycling and can not really explain why she has discontinued her medicines multiple times taper Latuda start Abilify continue Tegretol 12/15/2024 Taper Latuda increase Abilify gradually trying to convert to long-acting injectable Tegretol level in the morning patient remains pressured somewhat panic 12/16/2024 . Latuda continue Abilify monitor for restlessness akathisia plan to convert to long-acting injectable Tegretol level slightly high will repeat it does eventually become self inducing metabolism. Monitor for confusion double vision recheck labs will also check sodium 12/17 continue treatment plan -sodium WNL on 12/16 12/18 c/o foul smelling urine; no dysuria; ordered UA, CT/NG, BV panel, RPR 12/19/2024 Continue Abilify was increased 10 mg preparing for long-acting injectable Tegretol level at high end normal Reason for continued inpatient stay Substantial Risk for: inability to function and rapid decompensation Time Spent With Patient Time: Total time managing care of this patient today ____ minutes.
[2024-12-19 20:00] VITALS: BP 160/74; PULSE 91; RESP 16; TEMP 36; O2SAT 100
[2024-12-20 08:55] VITALS: BP 134/77; PULSE 103; RESP 18; TEMP 36.6; O2SAT 97
[2024-12-20 20:00] VITALS: BP 146/79; PULSE 102; RESP 16; TEMP 36.4; O2SAT 99
--- NOTE | 2024-12-20 22:00 | HO.PSYCHPN ---
Subjective Subjective Date of Service: 12/20/24 Reason For Visit: Bipolar disorder/noncompliant Subjective Notes: Conditional Voluntary Interim History: pt seen in f/u mood expanive intrusive decreased sleep at times cooperative with care Mental Status Exam Mental Status Exam Narrative: Appearance: casually groomed, fair hygiene, smiling Behavior: cooperative Psychomotor: no agitation nor overt retardation Speech: presurred TP: mostly linear some foi TC: Focused on moving and whether she can afford it asking repeated questions regarding Abilify as mood stabilizing agent Mood: Somewhat euphoric Affect: expansive SI: denies HI: denies VH/AH: no overt Delusions: no overt delusional content reported Insight/judgment: Improving judgment and impulse control Memory/cog: alert, oriented to place, month, year and situation. Diagnostics Vital Signs (24Hr): Vital Signs - 24 hr 12/20/24 08:55 12/20/24 20:00 Temperature 97.9 F 97.5 F Pulse Rate 103 H 102 H Respiratory Rate 18 16 Blood Pressure 134/77 146/79 H Pulse Oximetry 97 99 Oxygen Delivery Method Room Air Room Air BMI result Body Mass Index 24.2 Labs 12/08/24 18:46 12/16/24 07:58 Labs: Laboratory Results - last 48 hr 12/18/24 12/18/24 14:50 14:56 T.pallidum Ab (EIA) Nonreactive Chlam trachomat DNA PCR NOT DETECTED N.gonorrhoeae DNA (PCR) NOT DETECTED T. vaginalis (PCR) NOT DETECTED Bact vaginosis (PCR) NEGATIVE C. krusei/glabrata (PCR) NOT DETECTED Jenn group (PCR) NOT DETECTED Imaging Radiology Impressions: ITS Impressions Lumbar Spine X-Ray 12/13/24 16:31 IMPRESSION: Chronic loss of L3 and L4 will heights and degenerative disc changes from L2-3 through L4-5 disc levels. There is moderate spondylosis as well at these disc levels. These findings are unchanged to previous lumbar spine exam 02/01/2024. No new findings. No acute intracranial process seen. Electronically signed by: Nas Gutiérrez MD 12/14/2024 07:[address] 12/13/24 17:23 IMPRESSION: Chronic loss of L3 and L4 will heights and degenerative disc changes from L2-3 through L4-5 disc levels. There is moderate spondylosis as well at these disc levels. These findings are unchanged to previous lumbar spine exam 02/01/2024. No new findings. No acute intracranial process seen. Electronically signed by: Nas Gutiérrez MD 12/14/2024 07:24 AM EDT Medications Medications Current Medications Acetaminophen (Acetaminophen 325 Mg Tablet) 650 mg PO Q6H PRN PRN Reason: Headache/Pain, Scale 1-10 Last Admin: 12/19/24 22:34 Dose: 650 mg Al Hydroxide/Mg Hydroxide (Magnesium Hydrox/Alum Hydrox 30 Ml Oral.Susp) 30 ml PO Q6H PRN PRN Reason: Heartburn/Nausea Aripiprazole (Aripiprazole 10 Mg Tablet) 10 mg PO DAILY [facility] Last Admin: 12/20/24 09:47 Dose: 10 mg Carbamazepine (Carbamazepine 200 Mg Tablet) 200 mg PO BID [facility] Last Admin: 12/20/24 20:47 Dose: 200 mg Donepezil HCl (Donepezil Hcl 5 Mg Tablet) 5 mg PO BEDTIME [facility] Last Admin: 12/20/24 20:47 Dose: 5 mg Hydroxyzine HCl (Hydroxyzine Hcl 25 Mg Tablet) 25 mg PO Q6H PRN PRN Reason: mild anxiety Last Admin: 12/14/24 20:55 Dose: 25 mg Liothyronine Sodium (Liothyronine Sodium 25 Mcg Tablet) 12.5 mcg PO BID [facility] Last Admin: 12/20/24 20:47 Dose: 12.5 mcg Magnesium Hydroxide (Milk Of Magnesia 30 Ml Oral.Susp) 30 ml PO DAILY PRN PRN Reason: Constipation Nicotine Polacrilex (Nicotine Polacrilex 2 Mg Gum) 2 mg BUCCAL Q2H PRN PRN Reason: Nicotine Cravings Olanzapine (Olanzapine Odt 10 Mg Tab.Rapdis) 10 mg TRANSLINGU Q6H PRN PRN Reason: agitation Last Admin: 12/12/24 11:22 Dose: 10 mg Allergies Allergies Allergy/AdvReac Type Severity Reaction Status Date / Time No Known Allergies Allergy Verified 12/08/24 18:08 Assessment & Plan Assessment & Plan (1) PTSD (post-traumatic stress disorder): Status: Acute Code(s): F43.10 - Post-traumatic stress disorder, unspecified (2) Bipolar 1 disorder, manic, moderate: Status: Acute Code(s): F31.12 - Bipolar disorder, current episode manic without psychotic features, moderate Plan Mrs. Johnston is a 69 year-old woman with hx of Bipolar Disorder who was brought by her cousin due to increase depression, oversleeping, in bed, not taking medications (but also notes she does not have current psych providers). no SI/HI. She was last discharged from back in 07/2024 after tx for manic episode with erotomatic delusions/hypersexualized behaviors. She presents somewhat with a blank stare,poverty of thought, depressed mood. poor insight/judgment. We discussed risks, benefits and alternative treatment options. She agrees to restart latuda, which was be quickly titrated. some catatonia like features in her presentation, may benefit from low dose ativan, monitor response. She used to be on carbamazepine, however, in combination with latuda, it lowers levels of latuda and auto induces its metabolism. Pt reports depakote was too sedating. Her creatinine clearance is reduced at 41.4, less ideal to use lithium, but does need mood stabilizer given hx of mg. PLAN 1. admit to S1, CV, 15 minutes checks 2. increase latuda to 40mg daily with dinner, continue titrated as indicated. 3. obtain collateral information 4. aftercare planning. 12/10: DC Trazodone. Otherwise continue current management and treatment plan. 12/11: continue current management and treatment plan. 12/12 start carbamazepine 200mg po BID. olanzapine 10mg po q6h prn agitation, may need another antipsychotic. 12/13/24 discussed use of tyler pts risks when she is manic and lack of cooperation dangerous behavior 12/14/2024 Patient did retract her 3 day notice. She is more accepting of treatment and agreeable to trying to cheat inch Latuda to Abilify long-acting injectable to better ensure compliance. Patient states she is on board with this and is sick of cycling and can not really explain why she has discontinued her medicines multiple times taper Latuda start Abilify continue Tegretol 12/15/2024 Taper Latuda increase Abilify gradually trying to convert to long-acting injectable Tegretol level in the morning patient remains pressured somewhat panic 12/16/2024 . Latuda continue Abilify monitor for restlessness akathisia plan to convert to long-acting injectable Tegretol level slightly high will repeat it does eventually become self inducing metabolism. Monitor for confusion double vision recheck labs will also check sodium 12/17 continue treatment plan -sodium WNL on 12/16 12/18 c/o foul smelling urine; no dysuria; ordered UA, CT/NG, BV panel, RPR 12/19/2024 Continue Abilify was increased 10 mg preparing for long-acting injectable Tegretol level at high end normal 12/20/24 pt accepting tx can inc abilify 15 mg ck tegretol Reason for continued inpatient stay Substantial Risk for: inability to function, rapid decompensation and med/psych decompensation Time Spent With Patient Time: Total time managing care of this patient today ____ minutes.
[2024-12-21 08:40] VITALS: BP 119/58; PULSE 80; RESP 16; TEMP 36.4; O2SAT 99
--- NOTE | 2024-12-21 12:15 | P.PNPSI_ITS ---
Subjective Subjective Date of Service: 12/21/24 Reason For Visit: Bipolar disorder/noncompliant Subjective Notes: Conditional Voluntary Interim History: pt Diagnostics Vital Signs (24Hr): Vital Signs - 24 hr 12/20/24 20:00 12/21/24 08:40 Temperature 97.5 F 97.6 F Pulse Rate 102 H 80 Respiratory Rate 16 16 Blood Pressure 146/79 H 119/58 L Pulse Oximetry 99 99 Oxygen Delivery Method Room Air Room Air BMI result Body Mass Index 24.2 Labs 12/23/24 06:58 12/23/24 06:58 Imaging Radiology Impressions: ITS Impressions Lumbar Spine X-Ray 12/13/24 16:31 IMPRESSION: Chronic loss of L3 and L4 will heights and degenerative disc changes from L2-3 through L4-5 disc levels. There is moderate spondylosis as well at these disc levels. These findings are unchanged to previous lumbar spine exam 02/01/2024. No new findings. No acute intracranial process seen. Electronically signed by: Nas Gutiérrez MD 12/14/2024 07:24 AM EDT RP Head CT 12/13/24 17:23 IMPRESSION: Chronic loss of L3 and L4 will heights and degenerative disc changes from L2-3 through L4-5 disc levels. There is moderate spondylosis as well at these disc levels. These findings are unchanged to previous lumbar spine exam 02/01/2024. No new findings. No acute intracranial process seen. Electronically signed by: Nas Gutiérrez MD 12/14/2024 07:24 AM EDT Medications Medications Current Medications Acetaminophen (Acetaminophen 325 Mg Tablet) 650 mg PO Q6H PRN PRN Reason: Headache/Pain, Scale 1-10 Last Admin: 12/21/24 05:32 Dose: 650 mg Al Hydroxide/Mg Hydroxide (Magnesium Hydrox/Alum Hydrox 30 Ml Oral.Susp) 30 ml PO Q6H PRN PRN Reason: Heartburn/Nausea Aripiprazole (Aripiprazole 15 Mg Tablet) 15 mg PO DAILY [facility] Last Admin: 12/21/24 09:51 Dose: 15 mg Carbamazepine (Carbamazepine 200 Mg Tablet) 200 mg PO BID [facility] Last Admin: 12/21/24 09:51 Dose: 200 mg Donepezil HCl (Donepezil Hcl 5 Mg Tablet) 5 mg PO BEDTIME [facility] Last Admin: 12/20/24 20:47 Dose: 5 mg Hydroxyzine HCl (Hydroxyzine Hcl 25 Mg Tablet) 25 mg PO Q6H PRN PRN Reason: mild anxiety Last Admin: 12/14/24 20:55 Dose: 25 mg Liothyronine Sodium (Liothyronine Sodium 25 Mcg Tablet) 12.5 mcg PO BID [facility] Last Admin: 12/21/24 09:51 Dose: 12.5 mcg Magnesium Hydroxide (Milk Of Magnesia 30 Ml Oral.Susp) 30 ml PO DAILY PRN PRN Reason: Constipation Nicotine Polacrilex (Nicotine Polacrilex 2 Mg Gum) 2 mg BUCCAL Q2H PRN PRN Reason: Nicotine Cravings Olanzapine (Olanzapine Odt 10 Mg Tab.Rapdis) 10 mg TRANSLINGU Q6H PRN PRN Reason: agitation Last Admin: 12/12/24 11:22 Dose: 10 mg Quetiapine Fumarate (Quetiapine Fumarate 50 Mg Tablet) 50 mg PO BEDTIME [facility] Allergies Allergies Allergy/AdvReac Type Severity Reaction Status Date / Time No Known Allergies Allergy Verified 12/08/24 18:08 Assessment & Plan Assessment & Plan (1) Bipolar 1 disorder, depressed, moderate: Status: Acute Code(s): F31.32 - Bipolar disorder, current episode depressed, moderate Plan Mrs. Johnston is a 69 year-old woman with hx of Bipolar Disorder who was brought by her cousin due to increase depression, oversleeping, in bed, not taking medications (but also notes she does not have current psych providers). no SI/HI. She was last discharged from back in 07/2024 after tx for manic episode with erotomatic delusions/hypersexualized behaviors. She presents somewhat with a blank stare,poverty of thought, depressed mood. poor insight/judgment. We discussed risks, benefits and alternative treatment options. She agrees to restart latuda, which was be quickly titrated. some catatonia like features in her presentation, may benefit from low dose ativan, monitor response. She used to be on carbamazepine, however, in combination with latuda, it lowers levels of latuda and auto induces its metabolism. Pt reports depakote was too sedating. Her creatinine clearance is reduced at 41.4, less ideal to use lithium, but does need mood stabilizer given hx of mg. PLAN 1. admit to S1, CV, 15 minutes checks 2. increase latuda to 40mg daily with dinner, continue titrated as indicated. 3. obtain collateral information 4. aftercare planning. 12/10: DC Trazodone. Otherwise continue current management and treatment plan. 12/11: continue current management and treatment plan. 12/12 start carbamazepine 200mg po BID. olanzapine 10mg po q6h prn agitation, may need another antipsychotic. 12/13/24 discussed use of tyler pts risks when she is manic and lack of cooperation dangerous behavior 12/14/2024 Patient did retract her 3 day notice. She is more accepting of treatment and agreeable to trying to cheat inch Latuda to Abilify long-acting injectable to better ensure compliance. Patient states she is on board with this and is sick of cycling and can not really explain why she has discontinued her medicines multiple times taper Latuda start Abilify continue Tegretol 12/15/2024 Taper Latuda increase Abilify gradually trying to convert to long-acting injectable Tegretol level in the morning patient remains pressured somewhat panic 12/16/2024 . Latuda continue Abilify monitor for restlessness akathisia plan to convert to long-acting injectable Tegretol level slightly high will repeat it does eventually become self inducing metabolism. Monitor for confusion double vision recheck labs will also check sodium 12/17 continue treatment plan -sodium WNL on 12/16 12/18 c/o foul smelling urine; no dysuria; ordered UA, CT/NG, BV panel, RPR 12/19/2024 Continue Abilify was increased 10 mg preparing for long-acting injectable Tegretol level at high end normal 12/21/2024 Increase Abilify to 15 mg true dosage is less because patient is on Tegretol recheck Tegretol level it will tend to increase its own metabolism Reason for continued inpatient stay Substantial Risk for: inability to function, rapid decompensation and med/psych decompensation Time Spent With Patient Time: Total time managing care of this patient today ____ minutes.
[2024-12-21 20:00] VITALS: BP 137/63; PULSE 92; RESP 16; TEMP 36.4; O2SAT 100
[2024-12-22 08:44] VITALS: BMI 26.5
[2024-12-22 08:52] VITALS: BP 148/70; PULSE 101; RESP 18; TEMP 36.4; O2SAT 98
[2024-12-22 20:00] VITALS: BP 138/85; PULSE 99; TEMP 36.6; O2SAT 99
[2024-12-23 07:23] LABS: MANUAL DIFF FLAG NO
[2024-12-23 07:39] LABS: Hematocrit 38.9 % (37.0-47.0); Hemoglobin 12.2 g/dl (12.0-16.0); Imm Gran Abs Auto 0.02 X10*3/uL (0.00-0.03); Imm Gran Pct Auto 0.3 % (0.0-0.4); Lymphocytes Absolute Auto 1.8 X10*3/uL (1.2-4.9); Mean Corpuscular HGB Conc 31.4 g/dl (31.0-35.0); Mean Corpuscular Hemoglobin 27.8 pg (27.0-33.0); Mean Corpuscular Volume 88.6 fL (80.0-98.0); NRBC Abs Auto 0.000 X10*3/uL (0.0-0.012); NRBC Pct Auto 0.0 /100WBC (0.0-0.2); Platelet Count 325 X10*3/uL (160-400); Red Blood Count 4.39 X10*6/uL (4.20-5.50); White Blood Count 5.8 X10*3/uL (4.8-10.8)
[2024-12-23 08:05] LABS: Carbamazepine Tegretol 8.8 mcg/mL (5.0-12.0)
[2024-12-23 08:14] VITALS: BP 135/68; PULSE 95; RESP 16; TEMP 36; O2SAT 99
[2024-12-23 08:15] LABS: Alanine Aminotransferase 19 U/L (0-31); Albumin Level 4.1 g/dL (3.5-5.0); Alkaline Phosphatase 103 U/L (39-117); Anion Gap 13 (12-20); Aspartate Amino Transferase 27 U/L (5-31); Blood Urea Nitrogen 26 mg/dL (9-16); Calcium 9.0 mg/dL (8.4-10.2); Carbon Dioxide 27 mmol/L (22-29); Chloride 103 mmol/L (96-108); Creatinine Clr Calc Pharmacy 66.2; Estimated Glomerular Filt Rate > 60; Potassium 4.7 mmol/L (3.3-5.1); Sodium 138 mmol/L (135-145); Total Protein 7.0 g/dL (6.5-8.0)
[2024-12-23 19:50] VITALS: BP 138/66; PULSE 101; RESP 16; TEMP 36.4; O2SAT 98
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
[2024-12-24 08:46] VITALS: BP 145/65; PULSE 95; RESP 18; TEMP 2.5; TEMP 36.5; O2SAT 99
[2024-12-24] MEDS: guaiFENesin LA 600 MG TAB.ER.12H PO (13:43)
[2024-12-24 19:41] VITALS: BP 154/73; PULSE 96; RESP 16; TEMP 36.8; O2SAT 99
[2024-12-25 08:16] VITALS: BP 175/84; PULSE 85; RESP 18; TEMP 36.6; O2SAT 99
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
[2024-12-25 20:00] VITALS: BP 165/87; PULSE 86; RESP 17; TEMP 36.4; O2SAT 98
[2024-12-26] MEDS: Throat Lozenge, Medicated LOZENGE 1 LOZENGE MUCOUS MEM (04:07)
[2024-12-26 08:40] VITALS: BP 162/80; PULSE 84; RESP 18; TEMP 36.7; O2SAT 99
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
[2024-12-26 21:22] VITALS: BP 132/60; PULSE 100; TEMP 36.4; O2SAT 96
[2024-12-27 08:33] VITALS: BP 140/77; PULSE 83; RESP 18; TEMP 35.7; O2SAT 99
--- NOTE | 2024-12-27 13:21 | PM.EVENT ---
Event Note Date of Service: 12/27/24 Event Note: Complaining of fishy odor and suprapubic discomfort, check UA, vaginosis panel Also complaining of chronic worsening lower extremity edema, recommend mechanical compression and elevation Time Spent With Patient Time: Total time managing care of this patient today ____ minutes.
[2024-12-27 14:49] LABS: Appearance Urine Clear; Glucose Urine UA Negative (Negative); PH 6.5 (5.0-9.0); Specific Gravity - Urine 1.020 (1.005-1.025); UMIC TRIGGER UACC YES
[2024-12-27 15:01] LABS: UACC Culture Trigger YES
[2024-12-27 15:44] LABS: Bacterial Vaginosis PCR NEGATIVE (Negative); Candida Group PCR NOT DETECTED (Not Detect); Candida glab krusei PCR NOT DETECTED (Not Detect); Trichomonas vaginalis PCR NOT DETECTED (Not Detect)
[2024-12-27 20:00] VITALS: BP 120/70; PULSE 115; RESP 17; TEMP 36.4; O2SAT 96
[2024-12-28 03:54] VITALS: PULSE 94
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
[2024-12-28 08:00] VITALS: BP 182/91; PULSE 107; RESP 18; TEMP 36.8; O2SAT 97
[2024-12-28] MEDS: OLANZapine ODT 10 MG TAB.RAPDIS TRANSLINGU (08:21)
[2024-12-28 14:58] VITALS: BP 147/67
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
== END 2024-12-28 16:10 | disposition home or self-care (01) | DRG 885 ==
LOC: HO.ED 19:30 → HO.PGERI 21:31
PROVIDERS: Internal Medicine; Psychiatry & Neurology Psychiatry; Registered Nurse Emergency; Admitting Provider Nurse Practitioner Psychiatric/Mental Health; Emergency Provider Emergency Medicine; PCP Internal Medicine; Visit Provider Psychiatry & Neurology Psychiatry
DX: F31.32 Bipolar disorder, current episode depressed, moderate (principal); F43.10 Post-traumatic stress disorder, unspecified; I10 Essential (primary) hypertension; Z20.822 Contact with and (suspected) exposure to COVID-19; Z91.148 Patient's other noncompliance with medication regimen for other reason; Z87.891 Personal history of nicotine dependence; Z79.899 Other long term (current) drug therapy
CPT/HCPCS: 36415; 70450; 72100; 80048; 80053; 80061; 80156; 80307; 81001; 81515; 83036; 84439; 84443; 85025; 86780; 87086; 87110; 87140; 87491; 87591; 87637; 93005; 99285; 99499; S9485

== ENCOUNTER 2024-12-08 21:14 | Outpatient (BNV) | payer MEDICARE, SELFPAY | END 2024-12-08 22:02 | PROVIDERS: Admitting Provider Nurse Practitioner Psychiatric/Mental Health; Emergency Provider Emergency Medicine; PCP Internal Medicine; Visit Provider Internal Medicine | DX: I45.10 Unspecified right bundle-branch block (principal) | CPT/HCPCS: 93010 ==

== ENCOUNTER 2024-12-08 21:14 | Outpatient (BNV) | payer MEDICARE, SELFPAY | END 2024-12-13 17:23 | PROVIDERS: Admitting Provider Nurse Practitioner Psychiatric/Mental Health; Emergency Provider Emergency Medicine; PCP Internal Medicine; Visit Provider Radiology Diagnostic Radiology | DX: S09.90XD Unspecified injury of head, subsequent encounter (principal); M47.896 Other spondylosis, lumbar region | CPT/HCPCS: 70450; 72100 ==

== ENCOUNTER → 2024-12-08 21:14 | Outpatient (BNV) | payer MEDICARE, SELFPAY | PROVIDERS: Admitting Provider Nurse Practitioner Psychiatric/Mental Health; Emergency Provider Emergency Medicine; PCP Internal Medicine; Visit Provider Psychiatry & Neurology Psychiatry | DX: F31.32 Bipolar disorder, current episode depressed, moderate (principal) | CPT/HCPCS: 90792; 99231; 99232 ==

== ENCOUNTER → 2024-12-08 21:14 | Outpatient (BNV) | payer MEDICARE, SELFPAY | PROVIDERS: Admitting Provider Nurse Practitioner Psychiatric/Mental Health; Emergency Provider Emergency Medicine; PCP Internal Medicine; Visit Provider Psychiatry & Neurology Psychiatry | DX: F31.32 Bipolar disorder, current episode depressed, moderate (principal) | CPT/HCPCS: 99232 ==

== ENCOUNTER 2025-01-04 18:17 | Outpatient (AMB) | payer MEDICARE, SELFPAY ==
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
--- OUTSIDE RECORDS SUMMARY | 2025-01-04 18:21 | XMS_ITS | Clinical Summary ---
Author Organization [facility] Facility Address [address] [address] Care Team Providers Care Foster Care Case Manager Name Role Phone Unavailable Primary Care Provider [...]
== END 2025-01-04 18:18 | disposition home or self-care (01) ==
LOC: HO.HOP 18:17
PROVIDERS: PCP Internal Medicine; Visit Provider Psychiatry & Neurology Psychiatry
DX: F31.30 Bipolar disorder, current episode depressed, mild or moderate severity, unspecified (principal); F43.10 Post-traumatic stress disorder, unspecified
CPT/HCPCS: 99214

== ENCOUNTER → 2025-01-04 18:17 | Outpatient (BNVA) | payer MEDICARE, SELFPAY | PROVIDERS: PCP Internal Medicine; Visit Provider Psychiatry & Neurology Psychiatry | DX: F31.30 Bipolar disorder, current episode depressed, mild or moderate severity, unspecified (principal); F43.10 Post-traumatic stress disorder, unspecified | CPT/HCPCS: 99212 ==

== ENCOUNTER 2025-02-24 16:18 | Inpatient (IN) | payer MEDICARE, SELFPAY ==
--- NOTE | ~2025-02-24 | CT_ITS ---
CLINICAL HISTORY: r o renal obstruction CT abdomen and pelvis without contrast Comparison: None provided Findings: There is a small cyst in the right lobe of the liver. There is a tiny stone in the gallbladder. Gallbladder is contracted. The pancreas, spleen, adrenal glands, and kidneys are unremarkable. There is no urolithiasis or hydronephrosis. The appendix is normal. There is a moderate amount of stool in the colon. The gastrointestinal tract is otherwise unremarkable. The aorta is normal in diameter. There are no enlarged lymph nodes. Uterus and adnexa are unremarkable. There is a small focus of gas in the bladder. There are chronic appearing mild compression fractures of L3 and L4. There is no acute fracture or suspicious lytic or sclerotic lesion. IMPRESSION: 1. Small focus of gas in the bladder. Correlate for recent catheterization or urinary tract infection. 2. Cholelithiasis. 3. Chronic appearing mild L3 and L4 compression fractures. This document has been electronically signed by: Ammon Perez MD on 02/26/2025 04:28:30
--- NOTE | ~2025-02-24 | CT_ITS ---
CLINICAL HISTORY: AMS CT head without contrast Comparison: CT/SR - CT HEAD/BRAIN WO IV CON - 12/13/24 17:23 EDT Findings: There is no acute intracranial hemorrhage. Ventricles are within normal limits in size. No mass effect or midline shift is present. The atkinson-white matter differentiation appears normal. There is mild generalized cerebral atrophy. There is an unchanged small mucous retention cyst in the left sphenoid sinus. There is unchanged partial opacification of left mastoid air cells. Orbits are unremarkable. There is no fracture. IMPRESSION: No acute intracranial abnormality. This document has been electronically signed by: Ammon Perez MD on 02/26/2025 04:33:57
--- NOTE | ~2025-02-24 | CT_ITS ---
CLINICAL HISTORY: hypotensive, r o pna CT chest without contrast Comparison: None provided Findings: Heart size is within normal limits. There is no pericardial effusion. Thoracic aorta is normal in diameter. There are no enlarged lymph nodes. There is minimal bilateral atelectasis. There are a few small nodules in the left lower lobe measuring up to 5 mm seen on image 92. Lungs appear otherwise clear. There is no evidence of pneumonia. Trachea and central bronchi are widely patent. There is no fracture or suspicious lytic or sclerotic lesion. IMPRESSION: 1. No evidence of pneumonia. 2. Few small probably benign nodules in the left lower lobe measuring up to 5 mm. Follow-up recommendations based on Fleischner Society guidelines as below: Multiple solid lung nodules < 6 mm: Follow up management based on most suspicious nodule. In a low-risk patient, no routine follow-up imaging is recommended. In a high-risk patient, a non-contrast Chest CT at 12 months is optional. If performed and the nodule is stable at 12 months, no further follow-up is recommended. These guidelines do not apply to patients younger than 35 years, immunocompromised patients, and patients with cancer. F/U in patients with significant comorbidities as clinically warranted. For lung cancer screening, adhere to Lung-RADS guidelines. Reference: Radiology. 2017 Nov; 284(1):228-24. This document has been electronically signed by: Ammon Perez MD on 02/26/2025 04:25:47
[2025-02-24 16:39] VITALS: BP 145/78; PULSE 109; RESP 18; TEMP 36.8; O2SAT 96; BMI 25.7
--- NOTE | 2025-02-24 18:42 | ED_ITS ---
HPI - General Adult General Chief complaint: General Medical Stated complaint: Need medication refill Time Seen by Provider: 02/24/25 18:42 Source: patient, RN notes reviewed and old records reviewed Mode of arrival: ambulatory Limitations: no limitations History of Present Illness ED Provider: Deepika COPELADN narrative: Patient is a 69-year-old female with history of bipolar disorder, PTSD, neurodegenerative cognitive impairment, hypothyroidism presenting to the emergency department stating that she stopped taking all of her medications over 3 weeks ago. She reports that she feels this is due to increased depression. Reports that her in January. States that she also gave her dog to her son and so she is now living completely alone. Has been biting her nails as well as the skin around her nails due to anxiety/depression. She denies suicidal ideation, homicidal ideation, auditory or visual hallucinations. She is unsure if she has a therapist or psychiatrist in the community. States that she has been taking small naps throughout the day but is not sleeping fully overnight. Reports decreased appetite as well. Denies any current physical complaints. MD complaint: depression Onset (ago): week(s) Related Data Previous Rx's ?Medication ?Instructions ?Recorded donepezil 5 mg tablet 5 mg PO BEDTIME 30 days #30 tabs 12/28/24 lisinopril 2.5 mg tablet 2.5 mg PO DAILY 30 days #30 tabs 12/28/24 aripiprazole 15 mg tablet 15 mg PO DAILY 30 days #30 t abs 02/16/25 carbamazepine 400 mg 400 mg PO BEDTIME 30 days #3 0 tabs 02/16/25 tablet,extended release,12 hr liothyronine 25 mcg tablet 12.5 mcg (1/2 x 25 mcg) PO BID 30 02/16/25 days #30 tabs quetiapine 50 mg tablet 50 mg PO BEDTIME 30 days #30 tabs 02/16/25 Allergies Allergy/AdvReac Type Severity Reaction Status Date / Time No Known Allergies Allergy Verified 02/24/25 16:44 Review of Systems 2 Review of Systems: as per hpi Yes all other systems are reviewed and are negative Constitutional: Constitutional: Reports as per HPI PMFSH Past Medical History Medical History Bipolar 1 disorder Bipolar disorder, most recent episode depressed Cough Acute respiratory disease Noncompliance with medications Depression Airam RADHA (acute kidney injury) Fracture of right ulnar styloid Neurodegenerative cognitive impairment Left ankle sprain Low back pain Acute bronchitis Left sided sciatica Depression Sore throat (viral) Surgical History Hx of colonoscopy No significant past surgical history Social History Social History Household Members: None Household Members Other:: Son Housing: House Do you presently have visiting nurse or other home services: No Alcohol intake: unknown Comment: Independent Patient Tobacco Use Status: Former Tobacco user e-Cigarette/Vaping Use: Never Used Second Hand Smoke Exposure: No Substance Use Type: Marijuana Advance Directives Date on File: 12/21/24 service: No Sexual orientation: Straight/Heterosexual Physical Exam ED Vital Signs: Vital Signs - 24 hr 02/25/25 06:21 02/25/25 10:53 02/25/25 17:35 Temperature 97.4 F 97.1 F Pulse Rate 115 H 90 Respiratory Rate 16 18 18 Blood Pressure 124/67 Pulse Oximetry 99 98 Oxygen Delivery Method Room Air Room Air 02/25/25 18:17 02/25/25 22:17 02/25/25 22:29 Temperature 97.8 F 97.6 F Pulse Rate 72 82 75 Respiratory Rate 18 16 Blood Pressure 91/52 L 85/50 L 81/49 L Pulse Oximetry 97 100 Oxygen Delivery Method 02/25/25 22:31 02/25/25 23:02 02/25/25 23:06 Temperature 97.5 F Pulse Rate 76 74 73 Respiratory Rate 18 14 Blood Pressure 91/49 L 74/44 L 85/44 L Pulse Oximetry 100 97 Oxygen Delivery Method Room Air Room Air 02/25/25 23:10 02/25/25 23:30 02/26/25 00:10 Temperature Pulse Rate 84 75 70 Respiratory Rate 16 13 13 Blood Pressure 82/48 L 94/47 L 97/48 L Pulse Oximetry 97 98 98 Oxygen Delivery Method Room Air Room Air Room Air 02/26/25 00:30 02/26/25 00:35 02/26/25 00:55 Temperature Pulse Rate 68 84 77 Respiratory Rate 12 14 14 Blood Pressure 95/43 L 89/55 L 107/53 L Pulse Oximetry 98 Oxygen Delivery Method Room Air 02/26/25 02:09 02/26/25 02:25 02/26/25 02:34 Temperature Pulse Rate 72 67 72 Respiratory Rate 16 Blood Pressure 87/54 L 80/45 L 107/51 L Pulse Oximetry Oxygen Delivery Method 02/26/25 02:38 02/26/25 02:42 02/26/25 03:10 Temperature Pulse Rate 74 76 79 Respiratory Rate 15 14 Blood Pressure 100/61 119/58 L 118/58 L Pulse Oximetry 99 98 Oxygen Delivery Method Room Air Room Air 02/26/25 03:17 Temperature Pulse Rate 73 Respiratory Rate 15 Blood Pressure 111/54 L Pulse Oximetry Oxygen Delivery Method BMI result Body Mass Index 25.7 Vital signs have been reviewed and appear to be correct. Blood pressure normal. Heart rate mildly tachycardic. Respiratory rate normal. Temperature normal. Oxygen saturation normal. Const General: cooperative, healthy appearing and no acute distress Orientation/consciousness: oriented to person, oriented to place, oriented to time and patient oriented x3 Limitations: no limitations HENMT Head: Yes normocephalic and Yes atraumatic Ears: external ears normal General nose exam: Normal external nose present Face and sinus: Yes face symmetric Mouth: oropharynx normal and moist mucous membranes Throat: Yes uvula midline Eyes Pupils: Equal, round and reactive pupils present Neck Neck: Yes normal visual inspection and Yes supple Resp Effort & Inspection: normal respiratory effort and able to speak in complete sentences Auscultation: clear to auscultation bilaterally Cardio Rate: regular rate Rhythm: regular rhythm Heart sounds: S1 normal heart sound present and S2 normal heart sound present GI Palpation (GI): Soft to palpation and nontender Auscultation: normoactive bowel sounds General: Yes no CVA tenderness Back/Spine/Pelvis Back: no CVA tenderness Skin General skin exam: elasticity normal and turgor normal Neuro General: oriented to person, oriented to place, oriented to time, patient oriented x3, moves all extremities, no focal motor deficits and CN's II-XI intact bilaterally Cranial nerves: Yes Equal, round and reactive pupils present Cognition (Neuro): normal cognition Extrem General: Yes full ROM, Yes no pedal edema and Yes no calf tenderness Psych Appearance: grossly normal Mental Status: mental status grossly normal Speech and movement: Slowed speech present (Psych) Affect: Sad affect present and Blunted affect present Attitude: cooperative Thought process: Normal thought process present Thought content: suicidality, no homicidality, no hallucinations and Depressive thoughts present Insight: Limited insight present (Psych) Judgement: Limited judgement present (Psych) Course Course Course Narrative: Time: 05:17 Date: 02/25/25 Provider: Matthew Lora MD Patient in physician observation for psychiatric evaluation.? No acute events reported overnight. No current complaints. VS stable.? The patient was seen by CARE team who requested a psychiatric consult to help determine disposition. Will continue to monitor. I was informed by the patient's nurse that after taking Seroquel, patient's blood pressure dropped to the 80s. Seroquel dose cause hypotension psych orthostatic hypotension. Patient states that she feels well and has no complaints. Patient was moved over to the main emergency department. Patient receiving IV fluids. After 2 L of IV fluids, patient's blood pressure initially improved to the high 90s, patient requested to go to the bathroom, was able to ambulate, asymptomatic. When patient returned to her bed, the patient's blood pressure dropped to the 80s. Patient states that she feels well. However, patient's blood pressure did not recuperating. We obtained a 2nd set of urinalysis. The 1 from yesterday showed questionable UTI, chronic leukocyte esterase with +1 bacteria. Today, she has a significant amount of WBCs. Patient was started on IV antibiotics. At this time, patient does not have any URI symptoms, denies chest pain or shortness of breath, no abdominal pain. We will obtain labs again. Given patient's low blood pressure despite IV fluids, patient was started on Levophed. I discussed the above-mentioned with the ICU team. We will scan the patient had chest abdomen and pelvis. And then patient will go to the ICU Medications Administered Discontinued Medications Generic Name Dose Route Start Last Admin Trade Name Freq PRN Reason Stop Dose Admin Acetaminophen 650 mg 02/25/25 13:03 02/25/25 13:14 Acetaminophen 325 Mg Tablet PO 02/25/25 13:04 650 mg ONCE STA Administration Acetaminophen 650 mg 02/25/25 21:21 02/25/25 21:24 Acetaminophen 325 Mg Tablet PO 02/25/25 21:22 650 mg ONCE ONE Administration Aripiprazole 15 mg 02/25/25 09:30 02/27/25 07:44 Aripiprazole 15 Mg Tablet PO 15 mg DAILY CARLOS Administration Carbamazepine 400 mg 02/25/25 21:00 02/26/25 21:03 Carbamazepine Er 200 Mg Tab.Er.12h PO 400 mg BEDTIME CARLOS Administration Donepezil HCl 5 mg 02/25/25 21:00 02/26/25 21:04 Donepezil Hcl 5 Mg Tablet PO 5 mg BEDTIME CARLOS Administration Heparin Sodium (Porcine) 5,000 unit 02/26/25 03:45 02/27/25 03:21 Heparin Sodium,Porcine 5,000 Unit/Ml Vial SUBCUT Not Given Q12H CARLOS Sodium Chloride 1,000 mls @ 999 mls/hr 02/25/25 22:37 02/26/25 00:05 Ns IVCONT 02/25/25 23:37 Infused .Q1H1M ONE Infusion Sodium Chloride 1,000 mls @ 999 mls/hr 02/26/25 00:45 02/26/25 01:48 Ns IV 02/26/25 01:45 Infused .Q1H1M CARLOS Infusion Norepinephrine Bitartrate 8 mg in 250 mls @ 0 mls/hr 02/26/25 02:00 02/26/25 11:36 Levophed IVCONT Infused .Q0M CARLOS Titration Protocol Per Protocol Piperacillin Sod/Tazobactam 50 mls @ 100 mls/hr 02/26/25 02:10 02/26/25 03:08 Sod 3.375 gm/ Sodium Chloride IV 02/26/25 02:39 Infused ONCE ONE Infusion Albumin Human 100 mls @ 133.333 mls/hr 02/26/25 03:00 02/26/25 04:48 Kedbumin 25 % IV 02/26/25 04:44 Infused Q1H CARLOS Infusion Lactated Ringer's 1,000 mls @ 999 mls/hr 02/26/25 03:00 02/26/25 04:42 Lr IV 02/26/25 04:00 Infused .Q1H1M CARLOS Infusion Lactated Ringer's 1,000 mls @ 100 mls/hr 02/26/25 03:45 02/27/25 07:48 Lr IVCONT 100 mls/hr .Q10H CARLOS Administration Liothyronine Sodium 12.5 mcg 02/25/25 09:30 02/27/25 07:44 Liothyronine Sodium 25 Mcg Tablet PO 12.5 mcg BID CARLOS Administration Lisinopril 2.5 mg 02/25/25 09:30 02/25/25 09:46 Lisinopril 2.5 Mg Tablet PO 2.5 mg DAILY CARLOS Administration Protocol Lorazepam 1 mg 02/25/25 10:45 02/25/25 13:12 Lorazepam 1 Mg Tablet PO 1 mg Q4H PRN Administration Anxiety, agitation Midodrine 10 mg 02/26/25 01:35 02/26/25 02:27 Midodrine Hcl 10 Mg Tablet PO 02/26/25 01:36 Not Given ONCE ONE Quetiapine Fumarate 50 mg 02/25/25 21:00 02/25/25 20:48 Quetiapine Fumarate 50 Mg Tablet PO 50 mg BEDTIME CARLOS Administration Medical Decision Making Medical Decision Making [facility] Narrative: Patient is a 69-year-old female with history of bipolar disorder, PTSD, neurodegenerative cognitive impairment, hypothyroidism presenting to the emergency department stating that she stopped taking her medications over 3 weeks ago. On exam patient is awake, A+Ox3, VS WNL, afebrile, normal neurological exam without focal deficits, physical exam findings as above. Given reported symptoms and physical exam findings, initial differential includes but is not limited to depression, anxiety, bipolar disorder, cognitive impairment, abnormal thyroid level. Plan for medical clearance then CARE team evaluation. Labs unremarkable. UA notable for 2+ leukocytes, 1+ bacteria but patient is without urinary symptoms. Will wait for urine culture prior to initiation of antibiotics. Patient medically cleared at this time for care team evaluation and placed on physician observation. Differential Diagnosis Differential Diagnoses: The differential diagnosis associated with the presentation includes As per [facility] Admission/Observation Consideration of admission/observation: Escalation of care including admission/observation considered Consult Healthcare Provider Management of the patient was discussed with: Behavioral Health Provider Lab Data [facility] Lab Attestation statement: I reviewed the patient's lab results. as per mdm 02/26/25 02:14 02/26/25 02:14 Labs: Lab Results 02/24/25 02/25/25 02/26/25 Range/Units 19:46 22:20 02:14 WBC 10.9 H 7.3 (4.8-10.8) X10*3/uL RBC 5.01 4.27 (4.20-5.50) X10*6/uL Hgb 14.2 12.2 (12.0-16.0) g/dl Hct 43.3 37.9 (37.0-47.0) % MCV 86.4 88.8 (80.0-98.0) fL MCH 28.3 28.6 (27.0-33.0) pg MCHC 32.8 32.2 (31.0-35.0) g/dl RDW 12.5 12.9 (11.0-16.0) % Plt Count 327 282 (160-400) X10*3/uL MPV 9.4 9.4 (9.4-12.3) fL Immature Gran % (Auto) 0.5 H 0.3 (0.0-0.4) % Neut % (Auto) 63.0 53.4 (45-73) % Lymph % (Auto) 28.9 38.6 (20-40) % [place] % (Auto) 6.7 6.2 (2-11) % Eos % (Auto) 0.5 1.2 (0-4) % Baso % (Auto) 0.4 0.3 (0-2) % Lymph # (Auto) 3.2 2.8 (1.2-4.9) X10*3/uL [place] # (Auto) 0.7 0.5 (0.1-1.2) X10*3/uL Eos # (Auto) 0.1 0.1 (0.0-0.4) X10*3/uL Baso # (Auto) 0.0 0.0 (0.0-0.2) X10*3/uL Abs Immat Gran (auto) 0.05 H 0.02 (0.00-0.03) X10*3/uL Absolute Neuts (auto) 6.9 3.9 (2.0-8.3) x10*3/uL Absolute Nucleated RBC 0.000 0.000 (0.0-0.012) X10*3/uL Nucleated RBC % (auto) 0.0 0.0 (0.0-0.2) /100WBC Sodium 142 143 (135-145) mmol/L Potassium 4.0 4.1 (3.3-5.1) mmol/L Chloride 109 H 113 H (96-108) mmol/L Carbon Dioxide 26 23 (22-29) mmol/L Anion Gap 11 L 11 L (12-20) BUN 13 30 H (9-16) mg/dL Creatinine 0.86 0.89 (0.5-1.4) mg/dL Estim Creat Clear Calc 54.7 52.8 Estimated GFR > 60 > 60 Random Glucose 84 91 (60-115) mg/dL Lactic Acid 1.4 (0.5-2.0) mmol/L Calcium 8.7 7.7 L D (8.4-10.2) mg/dL Total Bilirubin 0.3 0.2 (0.0-1.0) mg/dL Direct Bilirubin < 0.2 (0.0-0.5) mg/dL AST 25 19 (5-31) U/L ALT 11 11 (0-31) U/L Alkaline Phosphatase 90 83 (39-117) U/L Total Protein 6.9 5.7 L (6.5-8.0) g/dL Albumin 4.2 3.4 L (3.5-5.0) g/dL TSH 2.83 (0.32-4.0) uIU/mL Urine Color Dark Yellow Yellow Urine Appearance Cloudy Cloudy Urine pH 5.0 5.0 (5.0-9.0) Ur Specific [place] >= 1.030 H 1.025 (1.005-1.025) Urine Protein Trace Negative (Neg-Trace) mg/dL Urine Glucose (UA) Negative Negative (Negative) mg/dL Urine Ketones Trace Negative (Negative) mg/dL Urine Blood Negative Negative (Negative) Urine Nitrite Negative Negative (Negative) Ur Leukocyte Esterase Moderate (2+) H Moderate (2+) H (Negative) Urine RBC 0-2 0-2 (0-2) /HPF Urine WBC 11-20 >50 H (0-5) /HPF Ur Squamous Epith Cells 6-10 6-10 (0-2) /HPF Urine Bacteria 1+ None Seen (None Seen) Hyaline Casts 6-10 3-5 (0-2) /LPF Urine Opiates Screen Not Detected (Not Detect) Ur Buprenorphine Scrn Not Detected (Not Detect) ng/mL Ur Oxycodone Screen Not Detected (Not Detect) ng/mL Urine Methadone Screen Not Detected (Not Detect) ng/mL Urine Fentanyl Screen Not Detected (Not Detect) Ur Barbiturates Screen Not Detected (Not Detect) Ur Phencyclidine Scrn Not Detected (Not Detect) Ur Amphetamines Screen Not Detected (Not Detect) U Benzodiazepines Scrn Not Detected (Not Detect) Urine Cocaine Screen Not Detected (Not Detect) U Marijuana (THC) Screen Not Detected (Not Detect) Ethyl Alcohol 12 mg/dL Influenza Type A (PCR) (Negative) Influenza Type B (PCR) (Negative) RSV RNA Qual (PCR) (Negative) SARS-CoV-2 RNA (RT-PCR) (Negative) 02/26/25 Range/Units 02:22 WBC (4.8-10.8) X10*3/uL RBC (4.20-5.50) X10*6/uL Hgb (12.0-16.0) g/dl Hct (37.0-47.0) % MCV (80.0-98.0) fL MCH (27.0-33.0) pg MCHC (31.0-35.0) g/dl RDW (11.0-16.0) % Plt Count (160-400) X10*3/uL MPV (9.4-12.3) fL Immature Gran % (Auto) (0.0-0.4) % Neut % (Auto) (45-73) % Lymph % (Auto) (20-40) % [place] % (Auto) (2-11) % Eos % (Auto) (0-4) % Baso % (Auto) (0-2) % Lymph # (Auto) (1.2-4.9) X10*3/uL [place] # (Auto) (0.1-1.2) X10*3/uL Eos # (Auto) (0.0-0.4) X10*3/uL Baso # (Auto) (0.0-0.2) X10*3/uL Abs Immat Gran (auto) (0.00-0.03) X10*3/uL Absolute Neuts (auto) (2.0-8.3) x10*3/uL Absolute Nucleated RBC (0.0-0.012) X10*3/uL Nucleated RBC % (auto) (0.0-0.2) /100WBC Sodium (135-145) mmol/L Potassium (3.3-5.1) mmol/L Chloride (96-108) mmol/L Carbon Dioxide (22-29) mmol/L Anion Gap (12-20) BUN (9-16) mg/dL Creatinine (0.5-1.4) mg/dL Estim Creat Clear Calc Estimated GFR Random Glucose (60-115) mg/dL Lactic Acid (0.5-2.0) mmol/L Calcium (8.4-10.2) mg/dL Total Bilirubin (0.0-1.0) mg/dL Direct Bilirubin (0.0-0.5) mg/dL AST (5-31) U/L ALT (0-31) U/L Alkaline Phosphatase (39-117) U/L Total Protein (6.5-8.0) g/dL Albumin (3.5-5.0) g/dL TSH (0.32-4.0) uIU/mL Urine Color Urine Appearance Urine pH (5.0-9.0) Ur Specific [place] (1.005-1.025) Urine Protein (Neg-Trace) mg/dL Urine Glucose (UA) (Negative) mg/dL Urine Ketones (Negative) mg/dL Urine Blood (Negative) Urine Nitrite (Negative) Ur Leukocyte Esterase (Negative) Urine RBC (0-2) /HPF Urine WBC (0-5) /HPF Ur Squamous Epith Cells (0-2) /HPF Urine Bacteria (None Seen) Hyaline Casts (0-2) /LPF Urine Opiates Screen (Not Detect) Ur Buprenorphine Scrn (Not Detect) ng/mL Ur Oxycodone Screen (Not Detect) ng/mL Urine Methadone Screen (Not Detect) ng/mL Urine Fentanyl Screen (Not Detect) Ur Barbiturates Screen (Not Detect) Ur Phencyclidine Scrn (Not Detect) Ur Amphetamines Screen (Not Detect) U Benzodiazepines Scrn (Not Detect) Urine Cocaine Screen (Not Detect) U Marijuana (THC) Screen (Not Detect) Ethyl Alcohol mg/dL Influenza Type A (PCR) NEGATIVE (Negative) Influenza Type B (PCR) NEGATIVE (Negative) RSV RNA Qual (PCR) NEGATIVE (Negative) SARS-CoV-2 RNA (RT-PCR) NEGATIVE (Negative) External Record Review External record reviewed: Inpatient record, Office record and Outpatient record Critical Care Time Critical Care Time Critical Care Time: Yes Total Critical Care Time: 60 Attestation: I have personally provided critical care time. Time includes review of lab data, radiology results, discussion with consultants, and monitoring for potential decompensation. Intervention performed as documented. Discharge Plan Discharge Clinical Impression: Depression, Noncompliance with medication regimen, Acute UTI, Dehydration Patient Disposition: Admitted As Inpatient Interventions: Admission Worksheet (ED) Last Done: 02/26/25 04:44 Discharge Date/Time: 02/26/25 04:05
--- NOTE | 2025-02-24 19:30 | PC.NURSE ---
Assumed care of pt, presents with depression s/p 40+ years passing away recently, pt states that she stopped taking her medications, pt is alert and awake, nad at this time, pt to evaluated by the care team, for psych consult
[2025-02-24 19:51] LABS: MANUAL DIFF FLAG NO
[2025-02-24 19:53] LABS: Hematocrit 43.3 % (37.0-47.0); Hemoglobin 14.2 g/dl (12.0-16.0); Imm Gran Abs Auto 0.05 X10*3/uL (0.00-0.03); Imm Gran Pct Auto 0.5 % (0.0-0.4); Lymphocytes Absolute Auto 3.2 X10*3/uL (1.2-4.9); Mean Corpuscular HGB Conc 32.8 g/dl (31.0-35.0); Mean Corpuscular Hemoglobin 28.3 pg (27.0-33.0); Mean Corpuscular Volume 86.4 fL (80.0-98.0); NRBC Abs Auto 0.000 X10*3/uL (0.0-0.012); NRBC Pct Auto 0.0 /100WBC (0.0-0.2); Platelet Count 327 X10*3/uL (160-400); Red Blood Count 5.01 X10*6/uL (4.20-5.50); White Blood Count 10.9 X10*3/uL (4.8-10.8)
[2025-02-24 19:55] LABS: Appearance Urine Cloudy; Glucose Urine UA Negative (Negative); PH 5.0 (5.0-9.0); Specific Gravity - Urine >= 1.030 (1.005-1.025); UMIC TRIGGER UACC YES
[2025-02-24 20:05] LABS: Cannabinoid Screen Urine Not Detected (Not Detect)
[2025-02-24 20:12] LABS: UACC Culture Trigger YES
[2025-02-24 20:16] LABS: Alanine Aminotransferase 11 U/L (0-31); Albumin Level 4.2 g/dL (3.5-5.0); Alkaline Phosphatase 90 U/L (39-117); Anion Gap 11 (12-20); Aspartate Amino Transferase 25 U/L (5-31); Blood Urea Nitrogen 13 mg/dL (9-16); Calcium 8.7 mg/dL (8.4-10.2); Carbon Dioxide 26 mmol/L (22-29); Chloride 109 mmol/L (96-108); Creatinine Clr Calc Pharmacy 54.7; Estimated Glomerular Filt Rate > 60; Potassium 4.0 mmol/L (3.3-5.1); Sodium 142 mmol/L (135-145); Total Protein 6.9 g/dL (6.5-8.0)
[2025-02-24 22:00] VITALS: BP 115/79; PULSE 81; TEMP 36.7; O2SAT 96
--- NOTE | 2025-02-24 22:54 | MHC.CARE ---
Patient was seen by the Care Team and found appropriate for a psych consult to better determine if she would best benefit from an inpatient admission at this time. Patient is agreeable to remain in the ED overnight and be evaluated by psychiatry tomorrow morning for further recommendations.
[2025-02-25] VITALS (12 sets, daily range): BP systolic 74–124; BP diastolic 44–82; PULSE 72–115; RESP 13–18; TEMP 36.2–36.6; O2SAT 96–100
--- NOTE | 2025-02-25 09:31 | PHA.MEDREC ---
Pharmacy Consult ? Medication Reconciliation Pharmacy has reviewed the medication reconciliation completed by nursing.
--- NOTE | 2025-02-25 09:38 | PC.NURSE ---
Assumed care, report received. Pt is awake, hyperverbal and intrusive. she needs frequent redirection and uses the phone continuously
--- NOTE | 2025-02-25 13:46 | PC.NURSE ---
Pt continues to wander on the unit and talk on the phone. She reports anxiety and a ENGLISH and back pain, PRN's are given. she is currently watching TV.
[2025-02-25] MEDS: carBAMazepine ER 200 MG TAB.ER.12H 400 MG PO (20:48)
[2025-02-25 22:26] LABS: Appearance Urine Cloudy; Glucose Urine UA Negative (Negative); PH 5.0 (5.0-9.0); Specific Gravity - Urine 1.025 (1.005-1.025); UMIC TRIGGER UACC YES
--- NOTE | 2025-02-25 22:27 | PC.NURSE ---
Pt is hypotensive, 85/50, HR 80's. Pt is awake and alert. Speaking in full sentences and answering questions appropriately. States feeling tired and is ready to go to bed. Dr. Daniels and charge nurse made aware. Dr Daniels orders a new UA to be repeated and pt to be transferred to the main ED. Pt made aware of plan of care.
[2025-02-25 22:31] LABS: UACC Culture Trigger YES
--- NOTE | 2025-02-25 22:57 | PC.NURSE ---
Pt moved from the pod to room 22 due to concerns for hypotension. Pt transferred into a hospital bed with bed alarm activated, camera at bedside due to concerns for wandering/elopement. IV established, IVF infusing. Pt denies pain, reports feeling exhausted. Continue to monitor.
[2025-02-26] VITALS (27 sets, daily range): BP systolic 80–149; BP diastolic 43–121; PULSE 67–97; RESP 12–16; TEMP 35.8–36.6; O2SAT 94–100; BMI 25.7
--- NOTE | 2025-02-26 00:03 | PC.NURSE ---
Report received and care assumed at 2300. The pt is noted to be in the hospital bed, she appears drowsy but is easily arousable to verbal stimuli at which time she can hold a conversation without issue. The pt is A&Ox4, conversing freely and answering questions appropriately. She offers no complaints at this time besides feeling tired, BPs remain in the 90s systolic and she is mentating appropriately. IVF have infused. Hospital bed with bed alarm and camera in place for safety. pt continues to deny SI/HI, A/V Hallucinations. BPs to continue to be trended
--- NOTE | 2025-02-26 00:47 | PC.NURSE ---
pt up to nearby restroom with standby assist for safety. Pt was noted to be steady on her feet with gait even and steady. she denied dizziness, chest pain, shortness of breath, and/or need for assistance. Pt returned to bed and reconnected for vital observation. BP noted to be 89 systolic upon itial return, additional Liter of NS requested and hung per MD. Pt given cheese stick and beverage per her request.
[2025-02-26 02:19] LABS: MANUAL DIFF FLAG NO
[2025-02-26 02:20] LABS: Hematocrit 37.9 % (37.0-47.0); Hemoglobin 12.2 g/dl (12.0-16.0); Imm Gran Abs Auto 0.02 X10*3/uL (0.00-0.03); Imm Gran Pct Auto 0.3 % (0.0-0.4); Lymphocytes Absolute Auto 2.8 X10*3/uL (1.2-4.9); Mean Corpuscular HGB Conc 32.2 g/dl (31.0-35.0); Mean Corpuscular Hemoglobin 28.6 pg (27.0-33.0); Mean Corpuscular Volume 88.8 fL (80.0-98.0); NRBC Abs Auto 0.000 X10*3/uL (0.0-0.012); NRBC Pct Auto 0.0 /100WBC (0.0-0.2); Platelet Count 282 X10*3/uL (160-400); Red Blood Count 4.27 X10*6/uL (4.20-5.50); White Blood Count 7.3 X10*3/uL (4.8-10.8)
--- NOTE | 2025-02-26 02:28 | PC.NURSE ---
Pt continues to rest comfortably in the bed with respirations even and unlabored without distress noted. She is easily arousable to verbal stimuli and with the adjustment of blankets or positioning of the bed at which time she is A&Ox4, with baseline mentation. She has been made aware of the need for additional blood work, iv medication and plan for admission s/t hypertension. She has asked appropriate questions surrounding the reason/cause of the low bp and continues to deny associated sympotms. MD Daniels had initially ordered PO midodrine however, this RN was asked to hold it and start IV Levophed to assist. 2nd IV line initiated to the RAC, pt tolerated it well. The bed has been placed int trendelenburg to assist with brain perfusion and IV drip is being titrated per protocol. BCx2 and lactic obtained, IVABX to be hung per MAR
[2025-02-26 02:42] LABS: Alanine Aminotransferase 11 U/L (0-31); Albumin Level 3.4 g/dL (3.5-5.0); Alkaline Phosphatase 83 U/L (39-117); Anion Gap 11 (12-20); Aspartate Amino Transferase 19 U/L (5-31); Blood Urea Nitrogen 30 mg/dL (9-16); Calcium 7.7 mg/dL (8.4-10.2); Carbon Dioxide 23 mmol/L (22-29); Chloride 113 mmol/L (96-108); Creatinine Clr Calc Pharmacy 52.8; Estimated Glomerular Filt Rate > 60; Potassium 4.1 mmol/L (3.3-5.1); Sodium 143 mmol/L (135-145); Total Protein 5.7 g/dL (6.5-8.0)
--- NOTE | 2025-02-26 02:50 | PC.NURSE ---
PT to CT scan for imaging. While pt on her way to CT, ICU provider came down and spoke with CC/Charge and [employer] construction supervisor. The pt has been responding well to the IV Levophed requiring only one titration and has been able to maintain at the 0.07mcg/kg/min with normalized BPs. Per ICU Provider, the plan is to hold the levophed, hang 1 additional Liter of IVF, albumin x2 and then reassess as pt's current repeat labs and other findings thus far are not remarkable for anything obvious. RN will follow through with these additional/newly requested orders once the pt returns from CT
[2025-02-26 03:05] LABS: Resp Syncy Virus RNA Qual PCR NEGATIVE (Negative); SARS COV2 PCR INHOUSE NEGATIVE (Negative)
[2025-02-26] MEDS: Lactated Ringers 1,000 ML 999 ML IV (03:10)
--- NOTE | 2025-02-26 03:10 | PC.NURSE ---
Pt returned from CT, continues to rest comfortably. BP remains above 100 systolic at this time. LR infusion hung and albumin to follow once obtained from the pyxis. Call miranda is in reach, camera remains at bedside and bed alarm active.
[2025-02-26] MEDS: Albumin Human 25 % 100 ML 133.33 ML IV ×2 (03:17→04:02)
--- NOTE | 2025-02-26 03:19 | PC.NURSE ---
pt's earrings x2 were removed while in CT and placed in a denture cup, given to RN upon return to bedside. RN placed the earrings in a container with a lid and placed the container in her purse which is located in locker 1 in the POD. IVF and the first bag of albumin are infusing at this time without s/s of complications noted to insertion site
--- NOTE | 2025-02-26 03:34 | PC.NURSE ---
ICU provider made aware of the pt's blood pressure's and low MAPs via tiger. He came to bedside to see the pt and spoke with her. Per Karthik, the plan is to NOT resume the pressers and instead allow for the bolus of LR to infuse and the 2 bags of albumin per MAR, the pt will then receive maintenance fluids at 100ml/hr.
--- NOTE | 2025-02-26 03:39 | PM.CCHP ---
History of Present Illness Date of Service: 02/26/25 <VANESSA Swan - Last Filed: 02/26/25 05:44> Attending physician on admission: Mateo Geller <VANESSA Swan - Last Filed: 02/26/25 05:44> Chief Complaint: Acute hypovolemic shock, RADHA <VANESSA Swan - Last Filed: 02/26/25 05:44> 69-year-old female with underlying history of bipolar, PTSD, neurodegenerative cognitive impairment, hypothyroidism, who had been seen in the emergency room about addendum and a half ago for psychiatric evaluation as the patient had stopped taking all of her medications about 3 weeks ago.? Reportedly the patient had shown some signs of anxiety by pitting her nails and had reported not being able to sleep properly.? The patient had a medical workup which was completely unremarkable without any white count, renal failure or electrolyte abnormalities.? Her urinalyses shows some leukocyte esterase and light bacteria without any symptomatology, the patient was given refills ?for medications and was kept in the ED under the psych CARE team. In the ER today, the patient was noted to be hypotensive, it was thought to be secondary to Seroquel intake, patient [id number] IVF wiuth much improvement so she was started on Vasopressors.? Her laboratory workup shows no white count, normal H&H.? Based on a urinalysis that shows no bacteria the patient was given Zosyn however no images have been done to rule out obstructive uropathy and this was kindly requested prior to admission. ?So far there is no white count, no electrolyte abnormality, BUN to creatinine ratio is greater than 30. ?Otherwise the patient is well-appearing has no complaints. ?Respiratory panel negative. ?Given ongoing hypotension, the patient will be admitted to the ICU. <VANESSA Swan - Last Filed: 02/26/25 05:44> Review of Systems Review of Systems: Review of systems: As above, otherwise the patient denies any prior history of strokes, cold intolerance, migraine headaches, head trauma, no eyes, ears or nose problems, no problems swallowing or with phonation, no thyroid disease, denies any history of chest pain, palpitations, coronary disease, cough, sputum production, pneumonia, bronchitis, COPD or emphysema, abdominal pain, nausea, vomiting, diarrhea, abdominal surgeries, melena, hematochezia, hematemesis, hematuria, kidney stones, liver problems, immunocompromise state of any kind, no history of DVT or PE, leg edema, fractures or extremity surgeries all other review of systems were reviewed and they were all negative. <VANESSA Swan - Last Filed: 02/26/25 05:44> [facility] Past Medical History Medical History: Medical History Bipolar 1 disorder Bipolar disorder, most recent episode depressed Cough Acute respiratory disease Noncompliance with medications Depression Airam RADHA (acute kidney injury) Fracture of right ulnar styloid Neurodegenerative cognitive impairment Left ankle sprain Low back pain Acute bronchitis Left sided sciatica Depression Sore throat (viral) <VANESSA Swan - Last Filed: 02/26/25 05:44> Surgical History Surgical History: Surgical History Hx of colonoscopy No significant past surgical history <VANESSA Swan - Last Filed: 02/26/25 05:44> Social History Social History: Social History Household Members: None Household Members Other:: Son Housing: House Do you presently have visiting nurse or other home services: No Alcohol intake: unknown Comment: Independent Patient Tobacco Use Status: Former Tobacco user Smoked in Last 30 Days: No e-Cigarette/Vaping Use: Never Used Second Hand Smoke Exposure: No Use of substances other than those prescribed or required for medical reasons: No Substance Use Type: Marijuana Currently Displaying Signs/Symptoms of Drug Intoxication Withdrawal: No Have you been hit, kicked, punched, or otherwise hurt by someone within the past year? If so, by whom?: No Do you feel safe in your current relationship?: No Current Relationship Is there a partner from a previous relationship who is making you feel unsafe now?: No Are you made to feel afraid or neglected: No Advance Directives: Yes Advance Directives on File: Yes Advance Directives Date on File: 12/21/24 Do you have a plan to hurt others: No Plan Recently lost weight without trying: Unsure How much weight loss: Unsure Eating poorly because of decreased appetite: Yes Nutrition screen score: 5 Nutrition Risks: No Nutritional Risk Patient : No : No Poor oral hygiene: No service: No Sexual orientation: Straight/Heterosexual <VANESSA Swan - Last Filed: 02/26/25 05:44> Meds Allergies/Adverse reactions: Allergies Allergy/AdvReac Type Severity Reaction Status Date / Time No Known Allergies Allergy Verified 02/24/25 16:44 <VANESSA Swan - Last Filed: 02/26/25 05:44> Active Medications: Current Medications Aripiprazole (Aripiprazole 15 Mg Tablet) 15 mg PO DAILY CARLOS Last Admin: 02/25/25 09:42 Dose: 15 mg Carbamazepine (Carbamazepine Er 200 Mg Tab.Er.12h) 400 mg PO BEDTIME CARLOS Last Admin: 02/25/25 20:48 Dose: 400 mg Donepezil HCl (Donepezil Hcl 5 Mg Tablet) 5 mg PO BEDTIME CARLOS Last Admin: 02/25/25 20:48 Dose: 5 mg Heparin Sodium (Porcine) (Heparin Sodium,Porcine 5,000 Unit/Ml Vial) 5,000 unit SUBCUT Q12H CARLOS Norepinephrine Bitartrate (Levophed) 8 mg in 250 mls @ 0 mls/hr IVCONT .Q0M CARLOS; Protocol Last Titration: 02/26/25 03:10 Dose: 0 mcg/kg/min, 0 mls/hr Albumin Human (Kedbumin 25 %) 100 mls @ 133.333 mls/hr IV Q1H CARLOS Stop: 02/26/25 04:44 Last Admin: 02/26/25 03:17 Dose: 133.33 mls/hr Lactated Ringer's (Lr) 1,000 mls @ 999 mls/hr IV .Q1H1M CARLOS Stop: 02/26/25 04:00 Last Admin: 02/26/25 03:10 Dose: 999 mls/hr Liothyronine Sodium (Liothyronine Sodium 25 Mcg Tablet) 12.5 mcg PO BID CARLOS Last Admin: 02/25/25 20:48 Dose: 12.5 mcg Lisinopril (Lisinopril 2.5 Mg Tablet) 2.5 mg PO DAILY CARLOS; Protocol Last Admin: 02/25/25 09:46 Dose: 2.5 mg Lorazepam (Lorazepam 1 Mg Tablet) 1 mg PO Q4H PRN PRN Reason: Anxiety, agitation Last Admin: 02/25/25 13:12 Dose: 1 mg Quetiapine Fumarate (Quetiapine Fumarate 50 Mg Tablet) 50 mg PO BEDTIME CARLOS Last Admin: 02/25/25 20:48 Dose: 50 mg <VANESSA Swan Last Filed: 02/26/25 05:44> Physical Exam Vital Signs: Vital Signs: Last Vital Signs Temp 97.5 F 02/25/25 23:06 Pulse 73 02/26/25 03:17 Resp 15 02/26/25 03:17 BP 111/54 L 02/26/25 03:17 Pulse Ox 98 02/26/25 02:42 O2 Del Method Room Air 02/26/25 02:42 BMI result Body Mass Index 25.7 <VANESSA Swan Last Filed: 02/26/25 05:44> General:? Alert oriented x3 no acute distress. No accessory muscle usage.? Following all commands. Skin:? Thin, Intact, no lesions, edema, erythema, clubbing or cyanosis.? No ulcers. 2 + tenting. HEENT:? Head is normocephalic, atraumatic, pupils equal. Buccal mucosa is dry.? No cervical lymphadenopathy, bruits or masses. Cardiac:? Clear S1-S2, no murmurs rubs or gallops. Pulmonary:? Diminished lung sounds bilaterally fine expiratory wheezing bilaterally .? No crackles, rales or rhonchi. Abdomen:? Protuberant, positive bowel sounds in all 4 quadrants.? Soft, nontender, no rebound or guarding. No CVA tenderness. ?? Musculoskeletal:? Moving all 4 extremities upon request a major joints, there is no crepitus or tenderness.? The strength is 5/5 bilaterally and throughout all 4 extremities.? There is no leg edema , no calf tenderness , no leg asymmetry.? Gait not assessed at this point. Neurologic:? As above.? No focal deficits noted. Vascular:? 2+ pulses upper and lower extremities distally.? Less than 2nd capillary refill of fingers and toes bilaterally upper and lower extremities <VANESSA Swan Last Filed: 02/26/25 05:44> Results Labs CBC and Chem 7: 02/26/25 02:14 02/26/25 02:14 <VANESSA Swan - Last Filed: 02/26/25 05:44> Labs: Laboratory Results - last 24 hr 02/25/25 02/26/25 02/26/25 22:20 02:14 02:22 MCV 88.8 MCH 28.6 MCHC 32.2 RDW 12.9 Plt Count 282 MPV 9.4 Immature Gran % (Auto) 0.3 Neut % (Auto) 53.4 Lymph % (Auto) 38.6 Taylor % (Auto) 6.2 Eos % (Auto) 1.2 Baso % (Auto) 0.3 Lymph # (Auto) 2.8 Taylor # (Auto) 0.5 Eos # (Auto) 0.1 Baso # (Auto) 0.0 Abs Immat Gran (auto) 0.02 Absolute Neuts (auto) 3.9 Absolute Nucleated RBC 0.000 Nucleated RBC % (auto) 0.0 Anion Gap 11 L Estim Creat Clear Calc 52.8 Estimated GFR > 60 Random Glucose 91 Lactic Acid 1.4 Calcium 7.7 L D Total Bilirubin 0.2 Direct Bilirubin < 0.2 AST 19 ALT 11 Alkaline Phosphatase 83 Total Protein 5.7 L Albumin 3.4 L Urine Color Yellow Urine Appearance Cloudy Urine pH 5.0 Ur Specific [place] 1.025 Urine Protein Negative Urine Glucose (UA) Negative Urine Ketones Negative Urine Blood Negative Urine Nitrite Negative Ur Leukocyte Esterase Moderate (2+) H Urine RBC 0-2 Urine WBC >50 H Ur Squamous Epith Cells 6-10 Urine Bacteria None Seen Hyaline Casts 3-5 Influenza Type A (PCR) NEGATIVE Influenza Type B (PCR) NEGATIVE RSV RNA Qual (PCR) NEGATIVE SARS-CoV-2 RNA (RT-PCR) NEGATIVE <VANESSA Swan - Last Filed: 02/26/25 05:44> Assessment and Plan (1) Hypovolemic shock: Status: Acute <VANESSA Swan - Last Filed: 02/26/25 05:44> ASSESSMENT : 1. Acute hypotension which is multifactorial due to failure to thrive, dehydration, NATHANIEL inhibitor and Seroquel 2. Questionable Urinary tract infection 3. Medical noncompliance 4. RADHA with Bun/Cr > 33 multifactorial 5. Significant clinical dehydration 6. Pseudo hypocalcemia with corrected calcium level 9.1 7. Hypoalbuminemia 8. Incidental lung nodules in need of follow up as outpt PLAN OF CARE: Admit to ICU, monitor vital signs, I's and o's, even though her blood pressure did not improve with 2 L of IV fluid, I believe she is still behind as her laboratories were checked after she received crystalloids and her BUN to creatinine ratio still high.? The patient looks clinically dry.? I will give her more IV fluids both in the form of bolus as well as ongoing continuous administration, albumin replacement. Hold Aricept and lisinopril. Awaiting results of CTs of the head to rule out other causes of hypotension, chest CT and abdominal CTs to rule out obstructive uropathy however the chances of this are slim.? Overall I do not think this patient has sepsis or any sort of infection.? Await urine culture and Gram stain in the meantime continue with Zosyn, although I doubt she has a urinary tract infection. Resume her psych medications. Except for Seroquel which can cause severe hypotension. This patient counter and care had a high probability of a clinically significant, sudden, or life threatening deterioration of this patient's condition which required my full and direct attention, intervention and personal management. Critical care time used for critical evaluation of this patient, diagnosis, treatment and coordination of care, review her records and documentation TOTAL CRITICAL CARE TIME 75? MIN . discussion and coordination with consultants, completely separate from any procedures performed. Patient's care was discussed in detail with Dr. Geller who is aware of all the above as well as the plan of care for this patient. <VANESSA Swan - Last Filed: 02/26/25 05:44> ASSESSMENT : 1. Acute hypotension which is multifactorial due to failure to thrive, dehydration, NATHANIEL inhibitor and Seroquel 2. Questionable Urinary tract infection 3. Medical noncompliance 4. RADHA with Bun/Cr > 33 multifactorial 5. Significant clinical dehydration 6. Pseudo hypocalcemia with corrected calcium level 9.1 7. Hypoalbuminemia 8. Incidental lung nodules in need of follow up as outpt PLAN OF CARE: Admit to ICU, monitor vital signs, I's and o's, even though her blood pressure did not improve with 2 L of IV fluid, I believe she is still behind as her laboratories were checked after she received crystalloids and her BUN to creatinine ratio still high.? The patient looks clinically dry.? I will give her more IV fluids both in the form of bolus as well as ongoing continuous administration, albumin replacement. Hold Aricept and lisinopril. Awaiting results of CTs of the head to rule out other causes of hypotension, chest CT and abdominal CTs to rule out obstructive uropathy however the chances of this are slim.? Overall I do not think this patient has sepsis or any sort of infection.? Await urine culture and Gram stain in the meantime continue with Zosyn, although I doubt she has a urinary tract infection. Resume her psych medications. Except for Seroquel which can cause severe hypotension. Update: Hypovolemic shock improved with volume replacement, blood pressures are better and is off pressors. We will transfer her to floor. Continue with a holding lisinopril for now This patient counter and care had a high probability of a clinically significant, sudden, or life threatening deterioration of this patient's condition which required my full and direct attention, intervention and personal management. Critical care time used for critical evaluation of this patient, diagnosis, treatment and coordination of care, review her records and documentation TOTAL CRITICAL CARE TIME 75? MIN . discussion and coordination with consultants, completely separate from any procedures performed. Patient's care was discussed in detail with Dr. Geller who is aware of all the above as well as the plan of care for this patient. <Mateo Geller MD - Last Filed: 02/26/25 11:05> Total time managing care of this patient today: 75 minutes. <VANESSA Swan - Last Filed: 02/26/25 05:44>
[2025-02-26] MEDS: Lactated Ringers 1,000 ML 100 ML IVCONT ×3 (04:49→23:39)
--- NOTE | 2025-02-26 11:11 | MHC.CM.PN ---
IMM DELIVERED TO PT IN ICU. PT IS VAGUE WITH HER HISTORY AND SITUATION. PER PT, SHE LIVES ALONE AND IS FUNCTIONALLY INDEPENDENT. PT STATES SHE HAS NO SERVICES OR DME. + HCP ON FILE. PCP DR. HAWLEY. DP: PT MAY NEED ANOTHER CARE TEAM EVAL/PSYCH EVAL TO DETERMINE DISPO AT DC. PT MAY NEED ASSIST WITH TRANSPORTATION. CM WILL CONTINUE TO FOLLOW FOR DC PLAN/NEEDS.
--- NOTE | 2025-02-26 12:55 | PC.NURSE ---
Assumed care at 0700. Upon initial assessment, IV fluids running, pt sleeping well; allowed to continue resting. Once awake, pt A&Ox4, flat affect. Pt downgraded to med-surg. Report given to DIMITRIOS Ortiz at approx 1230. Pt repositioned q2hr as tolerated. Fall & safety precautions in place. See MAR and assessments for further details.
--- NOTE | 2025-02-26 15:09 | PC.NURSE ---
Pt arrived from ICU today at 1300. Pt belongings are now at the RN station on 3W.
--- NOTE | 2025-02-26 19:18 | PC.NURSE ---
Pt belongings are now labeled and in a secure locker on the med/tele unit.
[2025-02-26] MEDS: carBAMazepine ER 200 MG TAB.ER.12H 400 MG PO (21:03)
[2025-02-27 04:00] VITALS: BP 144/68; PULSE 87; RESP 18; TEMP 36.3; O2SAT 97
[2025-02-27 07:36] VITALS: BP 145/85; PULSE 88; RESP 16; TEMP 37.2; O2SAT 98
[2025-02-27] MEDS: Lactated Ringers 1,000 ML 100 ML IVCONT (07:48)
--- NOTE | 2025-02-27 13:25 | P.DS_ITS ---
DS: Providers Provider Date of Service: 02/27/25 Date of admission: 02/26/25 03:36 Date of discharge: 02/27/25 Primary care physician: Ahsan Carrero MD Consults: 02/24/25 19:29 ED CARE Team Crisis Consult Routine Comment: Reason for consultation: off meds 3 wks, depressed, nail biting 02/24/25 22:06 Consult to Psychiatry Routine Consulting Provider: [facility] [place] [facility] [place] Reason for consultation: depression, non med compliance DS: Diagnosis Discharge Diagnosis (1) Hypovolemic shock: Status: Acute DS: Summary Hospital Course Hospital Course: 69-year-old female with underlying history of bipolar, PTSD, neurodegenerative cognitive impairment, hypothyroidism, who had been seen in the emergency room about addendum and a half ago for psychiatric evaluation as the patient had stopped taking all of her medications about 3 weeks ago.? Reportedly the patient had shown some signs of anxiety by pitting her nails and had reported not being able to sleep properly.? The patient had a medical workup which was completely unremarkable without any white count, renal failure or electrolyte abnormalities.? Her urinalyses shows some leukocyte esterase and light bacteria without any symptomatology, the patient was given refills ?for medications and was kept in the ED under the psych CARE team. In the ER today, the patient was noted to be hypotensive, it was thought to be secondary to Seroquel intake, patient [id number] IVF wiuth much improvement so she was started on Vasopressors.? Her laboratory workup shows no white count, normal H&H.? Based on a urinalysis that shows no bacteria the patient was given Zosyn however no images have been done to rule out obstructive uropathy and this was kindly requested prior to admission. ?So far there is no white count, no el ectrolyte abnormality, BUN to creatinine ratio is greater than 30. ?Otherwise the patient is well-appearing has no complaints. ?Respiratory panel negative. ?Given ongoing hypotension, the patient will be admitted to the ICU Hospital Course Patient was admitted to the ICU and started on pressors as well as volume replacement. Over the course of the next 12 hours she was weaned off pressors and able to be transferred to general medical floor. She was seen by the care team on floor; patient does not voice any suicidal or homicidal ideations. She has a telephone appointment with visiting nurse tomorrow; they will come twice a day to check on her med compliance. She also has an appointment 03/03/25 with her psychiatrist. Her cousin is very involved in her care and she will be staying with her cousin temporarily until services get set up. At this point in time she is medically acceptable for discharge to follow up as stated Time Attestation Discharge Coordination Time (in mins): 35 Quality: Safe Use of Opioids Does Pt have an Active Cancer Diagnosis on the Problem List?: No Quality: Stroke Does the patient have a stroke diagnosis?: No Physical Exam Vital Signs: Vital Signs: Last Vital Signs Temp 98.9 F 02/27/25 07:36 Pulse 88 02/27/25 07:36 Resp 16 02/27/25 07:36 BP 145/85 H 02/27/25 07:36 Pulse Ox 98 02/27/25 07:36 O2 Del Method Room Air 02/27/25 07:36 BMI result Body Mass Index 25.7 Const: Other: Awake alert no acute distress Resp: Other: Clear to auscultation bilaterally no rales rhonchi or wheezes Cardio: Other: No S4; positive S1-S2; no S3 murmurs rubs or gallops GI: Other: Soft nontender nondistended normoactive bowel sounds Extrem: Other: No edema bilaterally DS: Data Data Completed and Pending Labs on day of discharge: Preliminary micro results at discharge 02/26/25 02:22 Blood Culture - Preliminary Blood - Venous No growth after 24 hours. 02/26/25 02:14 Blood Culture - Preliminary Blood - Venous No growth after 24 hours. Discharge Plan Discharge Anticipated Discharge Date/Time: 02/27/25 13:20 Patient Disposition: Home, Self-Care Discharge Diagnosis: Acute hypotension multifactorial in nature Referrals: Ahsan Carrero MD [Primary Care Provider, Medical] - 1 Week Discharge Medications: Continued quetiapine 50 mg tablet 50 mg PO BEDTIME 30 Days Qty: 30 1RF aripiprazole 15 mg tablet 15 mg PO DAILY 30 Days Qty: 30 1RF liothyronine 25 mcg tablet 12.5 mcg PO BID 30 Days Qty: 30 1RF carbamazepine 400 mg tablet extended release 12 hr 400 mg PO BEDTIME 30 Days Qty: 30 1RF donepezil 5 mg Tablet 5 mg PO BEDTIME 30 Days Qty: 30 0RF lisinopril 2.5 mg Tablet 2.5 mg PO DAILY 30 Days Qty: 30 1RF Protocol: Hold for SBP< HOLD for SBP < : 90 Discharge Orders: Discharge Order (Routine); Ordered 02/27/25 Ordered By: Manolo Latham Diet: Advance to usual diet Activity on Discharge: As tolerated Stand Alone Forms: Patient Portal Discharge page Print Language: Citizen Of [place] Care Plan Goals: Continue all meds as outlined on discharge summary Health Concerns: Keep your phone appointment with visiting nurse tomorrow and follow up with psychiatrist as scheduled on Thursday Plan of Treatment: Further plans as per your psychiatrist Assessment: See discharge summary
--- NOTE | 2025-02-27 13:47 | MHC.CARE ---
Patient assessed by the CARE Team, she does not require an inpatient psychiatric admission at this time. Disposition reviewed with Dr. Latham who was in agreement with patient discharging to her cousin's home.
[2025-02-27 15:08] VITALS: BP 110/73; PULSE 98; RESP 18; TEMP 36.3; O2SAT 96
--- NOTE | 2025-02-27 15:10 | MHC.CM.PN ---
pt dcd home self care
== END 2025-02-27 16:05 | disposition home or self-care (01) | DRG 640 ==
LOC: HO.ED 02-26 02:31 → HO.EDOVER 02-26 03:41 → HO.ICU 02-26 03:43 → HO.S3 02-26 12:07
PROVIDERS: Emergency Medicine; Registered Nurse Emergency; Admitting Provider Physician Assistant Medical; Emergency Provider Emergency Medicine; PCP Internal Medicine; Visit Provider Hospitalist
DX: E86.0 Dehydration (principal); R57.1 Hypovolemic shock; N17.9 Acute kidney failure, unspecified; I95.2 Hypotension due to drugs; E03.9 Hypothyroidism, unspecified; F31.9 Bipolar disorder, unspecified; T43.595A Adverse effect of other antipsychotics and neuroleptics, initial encounter; R62.7 Adult failure to thrive; Z68.25 Body mass index [BMI] 25.0-25.9, adult; F43.10 Post-traumatic stress disorder, unspecified; Z63.4 Disappearance and death of family member; T50.916A Underdosing of multiple unspecified drugs, medicaments and biological substances, initial encounter; Z20.822 Contact with and (suspected) exposure to COVID-19; Z79.899 Other long term (current) drug therapy
CPT/HCPCS: 36415; 70450; 71250; 74176; 80048; 80053; 80076; 80307; 81001; 81003; 83605; 84443; 85025; 87040; 87086; 87637; 99285; J1644; J2543; J7120; P9047; S9485

== ENCOUNTER → 2025-02-26 02:13 | Outpatient (BNV) | payer MEDICARE, SELFPAY | PROVIDERS: Admitting Provider Physician Assistant Medical; Emergency Provider Emergency Medicine; PCP Internal Medicine; Visit Provider Radiology Diagnostic Radiology | DX: N32.89 Other specified disorders of bladder (principal); K80.20 Calculus of gallbladder without cholecystitis without obstruction; S32.039A Unspecified fracture of third lumbar vertebra, initial encounter for closed fracture; S32.049A Unspecified fracture of fourth lumbar vertebra, initial encounter for closed fracture; R91.8 Other nonspecific abnormal finding of lung field; R41.82 Altered mental status, unspecified | CPT/HCPCS: 70450; 71250; 74176 ==

== ENCOUNTER → 2025-02-26 03:36 | Outpatient (BNV) | payer MEDICARE, SELFPAY | PROVIDERS: Admitting Provider Physician Assistant Medical; Emergency Provider Emergency Medicine; PCP Internal Medicine; Visit Provider Physician Assistant Medical | DX: R57.1 Hypovolemic shock (principal) | CPT/HCPCS: 99223 ==

== ENCOUNTER → 2025-02-26 03:36 | Outpatient (BNV) | payer MEDICARE, SELFPAY | PROVIDERS: Admitting Provider Physician Assistant Medical; Emergency Provider Emergency Medicine; PCP Internal Medicine; Visit Provider Hospitalist | DX: R57.1 Hypovolemic shock (principal) | CPT/HCPCS: 99239 ==

== ENCOUNTER 2025-04-04 10:50 | Outpatient (REF) | payer MEDICARE, SELFPAY ==
--- NOTE | ~2025-04-04 | US_ITS ---
EXAMINATION: US TRIPLEX LOWER EXTREMITY, BILATERAL CLINICAL INFORMATION: Pain and edema, lower extremities. COMPARISON: None available. TECHNIQUE: Color-flow triplex imaging with spectral analysis and compression Doppler were performed on the bilateral lower extremities. FINDINGS: Respiratory variation, normal compression and augmented flow are demonstrated in the interrogated common femoral vein, superficial femoral vein, profunda femoral vein, popliteal vein and midcalf peroneal and posterior tibial venous segments both lower extremities. There is no Tellez's cyst. Soft tissue edema pattern without fluid collections. US/US venous duplex LE BI IMPRESSION: No acute deep venous thrombosis interrogated veins of the lower extremities. Negative for DVT. Electronically signed by: Derek Davis MD 04/04/2025 11:53 AM JERRY
--- OUTSIDE RECORDS SUMMARY | 2025-04-04 12:44 | XMS_ITS | Clinical Summary ---
Author Organization [facility] Facility Address [address] [address] Care Team Providers Care Plate Cutter Name Role Phone Unavailable Primary Care Provider [...]
== END 2025-04-04 10:51 | disposition home or self-care (01) ==
LOC: HO.US 10:50
PROVIDERS: Visit Provider Internal Medicine
DX: R60.0 Localized edema (principal); M79.661 Pain in right lower leg; M79.662 Pain in left lower leg
CPT/HCPCS: 93970

== ENCOUNTER → 2025-04-04 11:24 | Outpatient (BNV) | payer MEDICARE, SELFPAY | PROVIDERS: Visit Provider Radiology Diagnostic Radiology | DX: M79.661 Pain in right lower leg (principal); M79.662 Pain in left lower leg; R60.0 Localized edema | CPT/HCPCS: 93970 ==